=== PATIENT | female | born 1990 | race Caucasian/White ===

== ENCOUNTER 2023-02-12 09:59 | Outpatient (RCR) | payer MEDICARE, MEDICAID, SELFPAY | END 2023-04-16 12:25 | disposition home or self-care (01) | LOC: PT 09:59 | PROVIDERS: PCP Anesthesiology Pain Medicine; Visit Provider Anesthesiology Pain Medicine | DX: M47.816 Spondylosis without myelopathy or radiculopathy, lumbar region (principal) | CPT/HCPCS: 97110; 97113 ==

== ENCOUNTER 2023-05-13 12:41 | Outpatient (OUT) | payer MEDICARE, MEDICAID, SELFPAY ==
--- NOTE | 2023-05-13 12:54 | P.CN_ITS ---
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 Patient has recently completed PT with mild benefit, continues to have pain that interferes with day to day activity and functional ability. Pain today 11/21. Would like to further discuss injection therapy. cc:: CC: Michelle Hunter NP Review of Systems ROS Status of ROS 10 or more systems reviewed and unremarkable except as noted in history and below Musculoskeletal Reports: back pain Exam Constitutional Documenting provider has reviewed patient's vital signs: yes Common normals: no apparent distress, oriented x3, healthy appearing, alert and well nourished General appearance: cooperative HENMT Common normals: normocephalic, hearing grossly normal bilaterally and moist oral mucous membranes Head and scalp: normocephalic Eye Common normals: PERRL Pupil: PERRL Neck & C-Spine Common normals: full ROM General: normal visual inspection Chest Common normals: inspection of chest normal Respiratory Common normals: normal respiratory effort, no retractions and no use of accessory muscles Back & Pelvis Lumbar spine/lower back: ROM limited and pain with ROM Sacroiliac joints: SI joints normal Other: predominately axial back pain without radiculopathy. bilateral positive facet loading Neuro Common normals: oriented x3, CN's II-XII intact bilaterally, moves all extremities, no focal motor deficits, no sensory deficits noted and deep tendon reflexes 2+ bilaterally Sensorium/orientation: alert Motor exam: strength 5/5 throughout and no movement abnormalities noted Psych Common normals: mental status grossly normal, thought process normal, cooperative, affect normal, speech normal and activity/motor behavior normal Speech: normal speech Thought process: normal thought process Results Additional Findings Additional findings: I have checked an OARRS report on this patient today and there are no aberrancies noted in the prescribing history.?? A drug screen was completed and reviewed within the last year, and if there has not been a drug screen completed we ordered one today to monitor higher risk, state monitored pain medication use. As part of providing excellent, safe, comprehensive care, the following was completed at our patient's visit: 1. A medication reconciliation and review to ensure accurate knowledge of current/active medications, including asking our patients to inform us about any ocgl-mxc-nxwrrnp medications or herbal remedies/nutritional supplements/alternative remedies. 2. A review to specifically ensure our patients have had annual screening for: elevated body mass index (BMI), tobacco use, screening for depression, and screening for unhealthy alcohol use. When screening is concerning, patients are provided with education and the specific recommendation to discuss the concerning health issue and treatment options with their primary care provider. The patient has had over 3 months of moderate to severe low back pain with functional impairment and inadequate response to conservative care including NSAIDS (unless there are contraindication such as concurrent blood thinners), multiple oral or topical pain medications, and home exercise program/physical therapy.? Patient has completed >6 weeks of guided home exercise program and/or formal physical therapy program without relief of their symptoms.? I have reviewed the imaging of the lumbar spine and no red flags were identified.? The imaging reveals radiographic findings consistent with lumbar facet arthropathy The Oswestry Disability Index was completed, and the patient scored a %.? The patient noted the following:?? {[id number]}? We discussed the risks and benefits of the procedure with the patient, and we are NOT planning on using sedation as outlined in the guidelines from Medicare unless there is a documented reason that sedation would be strongly recommended.?? ?The procedure will be completed with fluoroscopic guidance.? 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 all questions answered. (2) Lumbar spondylosis: (3) Myofascial pain: Plan the patient will be scheduled for two MBBs if provides >80% pain relief and functional improvement will proceed with thermal radiofrequency ablation. bilateral L4/5 L5/S1 MBB under fluorscopy continue gabapentin through PCP continue flexeril 10mg BID f/u post procedure
== END 2023-05-13 12:42 | disposition home or self-care (01) ==
LOC: PM 12:42
PROVIDERS: Visit Provider Nurse Practitioner
DX: M47.816 Spondylosis without myelopathy or radiculopathy, lumbar region (principal); M79.18 Myalgia, other site; H91.90 Unspecified hearing loss, unspecified ear
CPT/HCPCS: G0463

== ENCOUNTER 2023-05-23 19:39 | Emergency (ER) | payer MEDICARE, MEDICAID, SELFPAY ==
[2023-05-23 19:45] VITALS: BP 130/80; PULSE 75; RESP 18; TEMP 36.9; O2SAT 98
--- NOTE | 2023-05-23 19:54 | ED.ABDPAIN1 ---
HPI - Abdominal Pain General Chief Complaint: Abdominal Pain Stated Complaint: stomach hurts Time Seen by Provider: 05/23/23 19:48 Source: patient and medical interpreter Mode of arrival: walk-in Limitations: language barrier and other Limitations comment: deaf History of Present Illness HPI narrative: 33-year-old female presents for bilateral lower abdominal pain with dysuria. She's had it for two days and believes she has a urinary tract infection. She has mild back pain but she always does from arthritis. No fever vomiting or constipation. She was a little bit dizzy earlier today. No fever or vomiting. Related Data Home Medications Medication Instructions Recorded Confirmed cholecalciferol (vitamin D3) 25 25 mcg PO DAILY 05/13/23 05/13/23 mcg (1,000 unit) capsule cyclobenzaprine 10 mg tablet 10 mg PO BID 05/13/23 05/13/23 ferrous sulfate 325 mg (65 mg 325 mg PO DAILY 05/13/23 05/13/23 iron) tablet gabapentin 300 mg capsule 300 mg PO BID 05/13/23 05/13/23 ibuprofen 800 mg tablet 800 mg PO TID PRN pain 05/13/23 05/13/23 omega-3 fatty acids 1,000 mg 1,000 mg PO DAILY 05/13/23 05/13/23 capsule omega-3 fatty acids 500 mg capsule 1,500 mg PO DAILY 05/13/23 05/13/23 omeprazole 40 mg capsule,delayed 40 mg PO DAILY 05/13/23 05/13/23 release Allergies Allergy/AdvReac Type Severity Reaction Status Date / Time Sulfa (Sulfonamide Allergy Verified 05/23/23 19:53 Antibiotics) Review of Systems ROS Narrative A ten point review of systems is negative except as noted above. Gastrointestinal Reports: abdominal pain Genitourinary Reports: painful urination [facility] Medical History (Updated 05/23/23 @ 21:36 by Fadi Mendez MD) Surgical History (Updated 05/13/23 @ 14:42 by Adenike Schroeder) Exam Narrative Exam Narrative: Nurses note and vital signs reviewed and patient is not hypoxic. General: The patient appears well and in no apparent distress. Patient is resting comfortably on cart. Skin: Warm, dry, no pallor noted. There is no rash noted. Head: Normocephalic, atraumatic Eye: Normal conjunctiva, no drainage Ears, Nose, Mouth, and Throat: oral mucosa is moist. Nares patent. Cardiovascular: Regular Rate and Rhythm Respiratory: Patient is in no distress, no accessory muscle use, lungs are clear to auscultation, no wheezing, rales or rhonchi Back: non-tender, no CVA tenderness bilaterally to percussion. GI: minimal tenderness in the suprapubic area Musculoskeletal: The patient has no evidence of calf tenderness, no pitting edema, symmetrical pulses noted bilaterally Neurological: she is deaf and we communicated through an medical interpreter. Psychiatric: Cooperative Constitutional Vital Signs, click to edit/add: Last Vital Signs Temp 98.4 F 05/23/23 19:45 Pulse 75 05/23/23 19:45 Resp 18 05/23/23 19:45 BP 130/80 05/23/23 19:45 Pulse Ox 98 05/23/23 19:45 O2 Del Method Room Air 05/23/23 19:45 Course Vital Signs Vital signs: Vital Signs Temperature 98.4 F 05/23/23 19:45 Pulse Rate 75 05/23/23 19:45 Respiratory Rate 18 05/23/23 19:45 Blood Pressure 130/80 05/23/23 19:45 Pulse Oximetry 98 05/23/23 19:45 Oxygen Delivery Method Room Air 05/23/23 19:45 Temperature 98.4 F 05/23/23 19:45 Pulse Rate 75 05/23/23 19:45 Respiratory Rate 18 05/23/23 19:45 Blood Pressure 130/80 05/23/23 19:45 Pulse Oximetry 98 05/23/23 19:45 Oxygen Delivery Method Room Air 05/23/23 19:45 MDM - Abdominal Pain MDM Narrative Medical decision making narrative: urinalysis and blood work are negative. She is not . I have no clinical suspicion of acute intra-abdominal process and imaging is not indicated. She is going to follow-up with her psychiatry physician. She has no vaginal discharge and is not and there is no indication for a pelvic exam. Diagnosis and follow-up were discussed with the patient. Differential Diagnosis Differential diagnosis: Likely abdominal pain, constipation and gastroenteritis Lab Data Attestation: I reviewed the patient's lab results. Labs: Lab Results 05/23/23 05/23/23 Range/Units 19:55 20:41 WBC 6.8 (4.0-11.0) 10^3/uL RBC 4.53 (4.20-5.40) 10^6/uL Hgb 12.3 (12.0-16.0) g/dL Hct 37.0 (36.0-48.0) % MCV 81.7 (81.0-99.0) fL MCH 27.2 (26.7-34.0) pg MCHC 33.2 (29.9-35.2) g/dL RDW 12.8 (11.0-15.0) % Plt Count 270 (150-450) 10^3/uL MPV 10.0 (9.5-13.5) fL Neut % (Auto) 50.7 (43.0-75.0) % Lymph % (Auto) 38.3 (20.5-60.0) % Victoria % (Auto) 7.1 (1.7-12.0) % Eos % (Auto) 2.7 (0.9-7.0) % Baso % (Auto) 0.9 (0.2-2.0) % Neut # (Auto) 3.4 (1.4-6.5) 10^3/uL Lymph # (Auto) 2.6 (1.2-3.8) 10^3/uL Victoria # (Auto) 0.5 (0.3-0.8) 10^3/uL Eos # (Auto) 0.2 (0.0-0.7) 10^3/uL Baso # (Auto) 0.1 (0.0-0.1) 10^3/uL Abs Immat Gran (auto) 0.02 (0.00-0.03) 10^3/uL Imm/Tot Granulo (auto) 0.3 (0.0-0.5) % Sodium 142 (136-145) mmol/L Potassium 3.7 (3.5-5.1) mmol/L Chloride 106 (98-107) mmol/L Carbon Dioxide 27.3 (21.0-32.0) mmol/L Anion Gap 12.4 BUN 8.0 (7.0-18.0) mg/dL Creatinine 0.84 (0.55-1.02) mg/dL Est GFR ( Amer) >60 (>=60) Est GFR (Non-Af Amer) >60 (>=60) BUN/Creatinine Ratio 9.5 Glucose 90 (74-106) mg/dL Calcium 8.6 (8.5-10.1) mg/dL Urine Color Lt. yellow (YELLOW) Urine Clarity Clear (CLEAR) Urine pH 7.0 (5.0-9.0) Ur Specific Preston 1.010 (1.005-1.025) Urine Protein Negative (NEG/TRACE) mg/dL Urine Glucose (UA) Negative (NEGATIVE) mg/dL Urine Ketones Negative (NEGATIVE) mg/dL Urine Occult Blood Negative (NEGATIVE) Urine Nitrite Negative (NEGATIVE) Urine Bilirubin Negative (NEGATIVE) Urine Urobilinogen 0.2 (0.2-1.0) EU/dL Ur Leukocyte Esterase Negative (NEGATIVE) Urine HCG, Qual Negative (NEGATIVE) Discharge Plan Discharge Chief Complaint: Abdominal Pain Clinical Impression: Abdominal pain Patient Disposition: Home, Self-Care Time of Disposition Decision: 21:35 Condition: Good Mode of Transportation: Private Vehicle Prescriptions / Home Meds: No Action omega-3 fatty acids 500 mg capsule 1,500 mg PO DAILY cyclobenzaprine 10 mg tablet 10 mg PO BID gabapentin 300 mg capsule 300 mg PO BID ibuprofen 800 mg tablet 800 mg PO TID PRN (Reason: pain) ferrous sulfate 325 mg (65 mg iron) tablet 325 mg PO DAILY omega-3 fatty acids 1,000 mg capsule 1,000 mg PO DAILY omeprazole 40 mg capsule,delayed release(DR/EC) 40 mg PO DAILY cholecalciferol (vitamin D3) 25 mcg (1,000 unit) capsule 25 mcg PO DAILY Instructions: Abdominal Pain (ED) Additional Instructions: F/U with your STORE TEAM MEMBER Stand Alone Forms: Portal Instructions Referrals: Physician,Non-Staff, MD [Primary Care Provider] - 1 week Discharge Date/Time: 05/23/23 21:46
[2023-05-23 20:10] LABS: Bilirubin Urine NEGATIVE (NEGATIVE); Blood Urine NEGATIVE (NEGATIVE); Clarity Urine CLEAR (CLEAR); Color Urine LT. YELLOW (YELLOW); Glucose Urine UA NEGATIVE (NEGATIVE); Ketones Urine NEGATIVE (NEGATIVE); Leukocyte Esterase Urine NEGATIVE (NEGATIVE); Nitrite Urine NEGATIVE (NEGATIVE); Protein Urine NEGATIVE (NEG/TRACE); Urobilinogen Urine 0.2 EU/dL (0.2-1.0)
[2023-05-23 20:14] LABS: HCG Qualitative Urine* NEGATIVE (NEGATIVE)
[2023-05-23 20:17] LABS: Urine Microscopic Indicated NO
[2023-05-23 20:59] LABS: Anion Gap 12.4; BUN Creatinine Ratio 9.5; Calcium 8.6 mg/dL (8.5-10.1); Carbon Dioxide 27.3 mmol/L (21.0-32.0); Chloride 106 mmol/L (98-107); Estimated GFR (African America >60 (>=60); Estimated GFR (Non-African Ame >60 (>=60); Glucose 90 mg/dL (74-106); Potassium 3.7 mmol/L (3.5-5.1); Sodium 142 mmol/L (136-145)
[2023-05-23 21:11] LABS: Basophils Absolute Auto 0.1 10^3/uL (0.0-0.1); Basophils Percent Auto 0.9 % (0.2-2.0); Eosinophils Absolute Auto 0.2 10^3/uL (0.0-0.7); Eosinophils Percent Auto 2.7 % (0.9-7.0); Hemoglobin 12.3 g/dL (12.0-16.0); Immature Granulocytes Abs Auto 0.02 10^3/uL (0.00-0.03); Immature Granulocytes Pct Auto 0.3 % (0.0-0.5); Lymphocytes Absolute Auto 2.6 10^3/uL (1.2-3.8); Lymphocytes Percent Auto 38.3 % (20.5-60.0); Mean Corpuscular HGB Conc 33.2 g/dL (29.9-35.2); Mean Corpuscular Hemoglobin 27.2 pg (26.7-34.0); Mean Corpuscular Volume 81.7 fL (81.0-99.0); Monocytes Absolute Auto 0.5 10^3/uL (0.3-0.8); Monocytes Percent Auto 7.1 % (1.7-12.0); Neutrophils Absolute Auto 3.4 10^3/uL (1.4-6.5); Neutrophils Percent Auto 50.7 % (43.0-75.0); Platelet Count 270 10^3/uL (150-450); Red Blood Count 4.53 10^6/uL (4.20-5.40); Red Cell Distribution Width 12.8 % (11.0-15.0); White Blood Count 6.8 10^3/uL (4.0-11.0)
== END 2023-05-23 21:46 | disposition home or self-care (01) ==
PROVIDERS: Emergency Provider Emergency Medicine
DX: R10.9 Unspecified abdominal pain (principal); Z79.899 Other long term (current) drug therapy; H91.90 Unspecified hearing loss, unspecified ear
CPT/HCPCS: 36415; 80048; 81003; 84703; 85025; 99285

== ENCOUNTER 2023-06-08 10:32 | Day surgery (SDC) | payer MEDICARE, MEDICAID, SELFPAY ==
[2023-06-08 11:07] VITALS: BP 117/84; PULSE 65; RESP 16; TEMP 36.4; O2SAT 97
[2023-06-08 11:24] LABS: Glucometer 96 mg/dL (74-106)
[2023-06-08 11:45] LABS: HCG Qualitative NEGATIVE (NEGATIVE)
[2023-06-08] MEDS: LIDOCAINE HCL 2% PF 100 MG/5 ML VIAL INJ (12:01)
[2023-06-08] MEDS: BUPIVACAINE HCL 0.5% PF 50 MG/10 ML VIAL INJ (12:01)
[2023-06-08] MEDS: TRIAMCINOLONE ACETONIDE 40 MG/ML VIAL INJ (12:02)
[2023-06-08 12:03] VITALS: BP 138/87; BP 157/96; PULSE 84; PULSE 92; RESP 18; O2SAT 98
--- NOTE | 2023-06-08 12:04 | W.PM.PROCNOT ---
Date of procedure: 06/08/23 Pre-op diagnosis: Lumbar spondylosis Post-op diagnosis: same as pre-op Procedure: Procedure: Bilateral L4-5, L5-S1 medial branch block Medications: Bupivacaine 0.25% 4cc The patient was seen and examined in the preoperative holding area.? An informed consent was obtained and placed on the chart.? The patient was brought to the medical procedure unit and placed in the prone position.? A timeout was completed verifying correct patient, procedure site, positioning, plan, and special equipment.? Using aseptic technique, the needle was placed at left L4. Under direct fluoroscopic visualization a Quincke-tipped spinal needle was advanced to the junction of the superior articulating process with the transverse process at the designated medial branch segment.? Preceded by negative aspiration, the above-mentioned injectate was placed in 1 mL aliquots.? The procedure was repeated at left L5, S1.? The needle was removed and insertion site was covered. The same procedure, at the same levels, was completed on the right side. The patient was taken to the postprocedural recovery area and monitored for an appropriate length of time before found suitable for discharge in the company of a responsible adult. Anesthesia: Local Surgeon: George Bernstein Pathology: none sent Condition: stable Disposition: no change
== END 2023-06-08 12:11 | disposition home or self-care (01) ==
PROVIDERS: Visit Provider Anesthesiology
DX: M47.816 Spondylosis without myelopathy or radiculopathy, lumbar region (principal)
CPT/HCPCS: 36415; 64493; 64494; 82948; 84703

== ENCOUNTER 2023-06-15 20:35 | Outpatient (OUT) | payer MEDICARE, MEDICAID, SELFPAY | END 2023-06-15 20:36 | disposition home or self-care (01) | LOC: SLEEP 20:35 | DX: G47.33 Obstructive sleep apnea (adult) (pediatric) (principal) | CPT/HCPCS: 95810 ==

== ENCOUNTER 2023-06-22 11:27 | Emergency (ER) | payer MEDICARE, MEDICAID, SELFPAY ==
[2023-06-22 11:37] VITALS: BP 129/91; PULSE 88; RESP 18; TEMP 36.8; O2SAT 96; BMI 33.3
--- NOTE | 2023-06-22 11:45 | XR_ITS ---
The [address] [address] Patient Name: LEENA TALBERT MRN: [id number] date: 1990 Sex: F Assigned Patient Location: ER Current Patient Location: ER Accession/Order Number: [id number] Exam Date: 06/22/2023 12:25 Report Date: 06/22/2023 12:55 At the request of: NON-STAFF PHYSICIAN Procedure: XR chest 1V EXAMINATION: XR chest 1V 06/22/2023 9:54 AM PDT HISTORY: 2 wk cough TECHNIQUE: Single frontal view of the chest acquired. COMPARISONS: None. FINDINGS: Lines/tubes/other: None. Heart and mediastinum: The heart and the mediastinum are within normal limits for technique. Bones: No acute osseous abnormality. Lungs: The lungs are clear. There is no evidence of pneumonia or pulmonary edema. Pleura: There is no significant pleural effusion or pneumothorax. Other: None. XR/XR chest 1V IMPRESSION: No acute cardiopulmonary abnormality. Electronically authenticated by: JOB HAYNES Date: 06/22/2023 12:55
[2023-06-22 12:19] LABS: SARS-CoV-2 Ag NEGATIVE (NEGATIVE)
--- NOTE | 2023-06-22 13:22 | ED_ITS ---
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 Her also has upper respiratory symptoms. She has been using unzv-zkm-zudfett medications. Denies fever, sore throat, ear pain, SOB or CP Related Data Home Medications Medication Instructions Recorded Confirmed cholecalciferol (vitamin D3) 25 25 mcg PO DAILY 05/13/23 06/08/23 mcg (1,000 unit) capsule cyclobenzaprine 10 mg tablet 10 mg PO BID 05/13/23 06/08/23 ferrous sulfate 325 mg (65 mg 325 mg PO DAILY 05/13/23 06/08/23 iron) tablet gabapentin 300 mg capsule 300 mg PO BID 05/13/23 06/08/23 ibuprofen 800 mg tablet 800 mg PO TID PRN pain 05/13/23 06/08/23 omega-3 fatty acids 1,000 mg 1,000 mg PO DAILY 05/13/23 06/08/23 capsule omega-3 fatty acids 500 mg capsule 1,500 mg PO DAILY 05/13/23 06/08/23 omeprazole 40 mg capsule,delayed 40 mg PO DAILY 05/13/23 06/08/23 release Allergies Allergy/AdvReac Type Severity Reaction Status Date / Time Sulfa (Sulfonamide Allergy Verified 05/23/23 19:53 Antibiotics) Review of Systems ROS Status of ROS 10 or more systems reviewed and unremarkable except as noted in history and below [facility] Medical History Asthma ?J45.909 - Unspecified asthma, uncomplicated (ICD-10) Heartburn ?R12 - Heartburn (ICD-10) Low back pain ?M54.50 - Low back pain, unspecified (ICD-10) Surgical History H/O removal of cyst ?Z98.890 - Other specified postprocedural states (ICD-10) History of appendectomy ?Z90.49 - Acquired absence of other specified parts of digestive tract (ICD- 10) Exam Narrative Exam Narrative: General: A&Ox3, no distress, talking in full an complete sentences skin: warm, dry, intact head: normocephalic, atraumatic eyes: EOMI nose: nares patent neck: supple, trachea midline cardiac: +S1/S1. no murmur respiratory: lungs CTA, non-labored, no wheezing, no retractions extremities: FROM x 4, strength +5/5 neuro: A&Ox3 psych: appropriate mood and affect, cooperative Constitutional Vital Signs, click to edit/add: Last Vital Signs Temp 98.2 F 06/22/23 11:37 Pulse 86 06/22/23 13:27 Resp 18 06/22/23 13:27 BP 126/86 06/22/23 13:27 Pulse Ox 98 06/22/23 13:27 O2 Del Method Room Air 06/22/23 11:37 Course Vital Signs Vital signs: Vital Signs Temperature 98.2 F 06/22/23 11:37 Pulse Rate 88 06/22/23 11:37 Respiratory Rate 18 06/22/23 11:37 Blood Pressure 129/91 06/22/23 11:37 Pulse Oximetry 96 06/22/23 11:37 Oxygen Delivery Method Room Air 06/22/23 11:37 Temperature 98.2 F 06/22/23 11:37 Pulse Rate 86 06/22/23 13:27 Respiratory Rate 18 06/22/23 13:27 Blood Pressure 126/86 06/22/23 13:27 Pulse Oximetry 98 06/22/23 13:27 Oxygen Delivery Method Room Air 06/22/23 11:37 MDM - URI/Sore Throat MDM Narrative Medical decision making narrative: COVID-negative. Chest x-ray was ordered by Dr. Castano with no acute findings. Likely viral and she is instructed to use gvuc-wro-zzxsbcl medications. F/u with PCP. afebrile, not tachypneic, not tachycardic, tolerating p.o., not hypoxic, non toxic appearing and ambulating at baseline and hemodynamically stable to be d/c. answered all questions. pt in agreement with tx. educated when to return to ER. Lab Data Labs: Lab Results 06/22/23 Range/Units 11:57 SARS-CoV-2 (PCR) Negative (NEGATIVE) SARS-CoV-2 RNA (PARI) Not detected (NOT DETECTE) Discharge Plan Discharge Chief Complaint: Upper Respiratory Infection Clinical Impression: Upper respiratory infection Qualifiers: URI type: unspecified URI Qualified Code(s): J06.9 - Acute upper respiratory infection, unspecified Patient Disposition: Home, Self-Care Time of Disposition Decision: 13:22 Condition: Good Mode of Transportation: Private Vehicle Prescriptions / Home Meds: No Action omega-3 fatty acids 500 mg capsule 1,500 mg PO DAILY cyclobenzaprine 10 mg tablet 10 mg PO BID gabapentin 300 mg capsule 300 mg PO BID ibuprofen 800 mg tablet 800 mg PO TID PRN (Reason: pain) ferrous sulfate 325 mg (65 mg iron) tablet 325 mg PO DAILY omega-3 fatty acids 1,000 mg capsule 1,000 mg PO DAILY omeprazole 40 mg capsule,delayed release(DR/EC) 40 mg PO DAILY cholecalciferol (vitamin D3) 25 mcg (1,000 unit) capsule 25 mcg PO DAILY Instructions: Upper Respiratory Infection (ED) Stand Alone Forms: Portal Instructions Referrals: Physician,Non-Staff, [Primary Care Provider] - 1 week Discharge Date/Time: 06/22/23 13:57 Documented by User: Gentry Castano MD 06/22/23 16:52 HPI - URI/Sore Throat General Chief Complaint: Upper Respiratory Infection Stated Complaint: COUGH, CONGESTION Time Seen by Provider: 06/22/23 13:22 Related Data Home Medications Medication Instructions Recorded Confirmed cholecalciferol (vitamin D3) 25 25 mcg PO DAILY 05/13/23 06/08/23 mcg (1,000 unit) capsule cyclobenzaprine 10 mg tablet 10 mg PO BID 05/13/23 06/08/23 ferrous sulfate 325 mg (65 mg 325 mg PO DAILY 05/13/23 06/08/23 iron) tablet gabapentin 300 mg capsule 300 mg PO BID 05/13/23 06/08/23 ibuprofen 800 mg tablet 800 mg PO TID PRN pain 05/13/23 06/08/23 omega-3 fatty acids 1,000 mg 1,000 mg PO DAILY 05/13/23 06/08/23 capsule omega-3 fatty acids 500 mg capsule 1,500 mg PO DAILY 05/13/23 06/08/23 omeprazole 40 mg capsule,delayed 40 mg PO DAILY 05/13/23 06/08/23 release Allergies Allergy/AdvReac Type Severity Reaction Status Date / Time Sulfa (Sulfonamide Allergy Verified 05/23/23 19:53 Antibiotics) [facility] Medical History Asthma ?J45.909 - Unspecified asthma, uncomplicated (ICD-10) Heartburn ?R12 - Heartburn (ICD-10) Low back pain ?M54.50 - Low back pain, unspecified (ICD-10) Surgical History H/O removal of cyst ?Z98.890 - Other specified postprocedural states (ICD-10) History of appendectomy ?Z90.49 - Acquired absence of other specified parts of digestive tract (ICD- 10) Exam Constitutional Vital Signs, click to edit/add: Last Vital Signs Temp 98.2 F 06/22/23 11:37 Pulse 86 06/22/23 13:27 Resp 18 06/22/23 13:27 BP 126/86 06/22/23 13:27 Pulse Ox 98 06/22/23 13:27 O2 Del Method Room Air 06/22/23 11:37 Course Vital Signs Vital signs: Vital Signs Temperature 98.2 F 06/22/23 11:37 Pulse Rate 88 06/22/23 11:37 Respiratory Rate 18 06/22/23 11:37 Blood Pressure 129/91 06/22/23 11:37 Pulse Oximetry 96 06/22/23 11:37 Oxygen Delivery Method Room Air 06/22/23 11:37 Temperature 98.2 F 06/22/23 11:37 Pulse Rate 86 06/22/23 13:27 Respiratory Rate 18 06/22/23 13:27 Blood Pressure 126/86 06/22/23 13:27 Pulse Oximetry 98 06/22/23 13:27 Oxygen Delivery Method Room Air 06/22/23 11:37 MDM - URI/Sore Throat MDM Narrative Medical decision making narrative: COVID-negative. Chest x-ray was ordered by Dr. Castano with no acute findings. Likely viral and she is instructed to use aduy-nwq-lvnlodo medications. F/u with PCP. afebrile, not tachypneic, not tachycardic, tolerating p.o., not hypoxic, non toxic appearing and ambulating at baseline and hemodynamically stable to be d/c. answered all questions. pt in agreement with tx. educated when to return to ER. I, Dr Castano, have reviewed the above progress note and course of action in the ER; agree with the above. I have personally seen and evaluated this patient, gone over history and physical, and discussed disposition and treatment plan with the patient. Lab Data Labs: Lab Results 06/22/23 Range/Units 11:57 SARS-CoV-2 (PCR) Negative (NEGATIVE) SARS-CoV-2 RNA (PARI) Not detected (NOT DETECTE) Discharge Plan Discharge Chief Complaint: Upper Respiratory Infection Clinical Impression: Upper respiratory infection Qualifiers: URI type: unspecified URI Qualified Code(s): J06.9 - Acute upper respiratory infection, unspecified Patient Disposition: Home, Self-Care Time of Disposition Decision: 13:22 Condition: Good Mode of Transportation: Private Vehicle Prescriptions / Home Meds: No Action omega-3 fatty acids 500 mg capsule 1,500 mg PO DAILY cyclobenzaprine 10 mg tablet 10 mg PO BID gabapentin 300 mg capsule 300 mg PO BID ibuprofen 800 mg tablet 800 mg PO TID PRN (Reason: pain) ferrous sulfate 325 mg (65 mg iron) tablet 325 mg PO DAILY omega-3 fatty acids 1,000 mg capsule 1,000 mg PO DAILY omeprazole 40 mg capsule,delayed release(DR/EC) 40 mg PO DAILY cholecalciferol (vitamin D3) 25 mcg (1,000 unit) capsule 25 mcg PO DAILY Instructions: Upper Respiratory Infection (ED) Stand Alone Forms: Portal Instructions Referrals: Physician,Non-Staff, MD [Primary Care Provider] - 1 week Discharge Date/Time: 06/22/23 13:57
[2023-06-22 13:27] VITALS: BP 126/86; PULSE 86; RESP 18; O2SAT 98
[2023-06-22 15:51] LABS: SARS-CoV-2 NAA NOT DETECTED (NOT DETECTE)
== END 2023-06-22 13:57 | disposition home or self-care (01) ==
PROVIDERS: Emergency Provider Emergency Medicine
DX: J06.9 Acute upper respiratory infection, unspecified (principal); M47.816 Spondylosis without myelopathy or radiculopathy, lumbar region; H91.93 Unspecified hearing loss, bilateral; Z79.899 Other long term (current) drug therapy; J45.909 Unspecified asthma, uncomplicated; Z90.49 Acquired absence of other specified parts of digestive tract; Z20.822 Contact with and (suspected) exposure to COVID-19
CPT/HCPCS: 71045; 87635; 87811; 99284; G0463; U0003

== ENCOUNTER 2023-06-22 14:09 | Outpatient (OUT) | payer MEDICARE, MEDICAID, SELFPAY ==
--- NOTE | 2023-06-22 15:21 | P.CN_ITS ---
Consult Note: HPI Data of Consult Patient: known to practice within the last 3 years Consult date: 06/22/23 Requesting Physician: George Bernstein MD Primary Care Provider: Non-Staff Physician, Consult Narrative Reason for consult: low back pain Narrative: 33yof who presents for assessment. underwent diagnostic bilateral l4-5, l5-s1 medial branch block under fluoroscopic guidance, notes significant relief of >80% for >2 hours and subsequent return of pain to baseline. now has persistent axial low back pain. continues in home exercise program. denies adverse medication side effects. JOSEP 18 cc:: CC: George Bernstein MD Review of Systems ROS Status of ROS 10 or more systems reviewed and unremarkable except as noted in history and below PFSH [facility] Medical History Asthma ?J45.909 - Unspecified asthma, uncomplicated (ICD-10) Heartburn ?R12 - Heartburn (ICD-10) Low back pain ?M54.50 - Low back pain, unspecified (ICD-10) Surgical History H/O removal of cyst ?Z98.890 - Other specified postprocedural states (ICD-10) History of appendectomy ?Z90.49 - Acquired absence of other specified parts of digestive tract (ICD- 10) Meds Home Medications and Allergies Home Medications Medication Instructions Recorded Confirmed Type cholecalciferol (vitamin D3) 25 25 mcg PO DAILY 05/13/23 06/08/23 History mcg (1,000 unit) capsule cyclobenzaprine 10 mg tablet 10 mg PO BID 05/13/23 06/08/23 History ferrous sulfate 325 mg (65 mg 325 mg PO DAILY 05/13/23 06/08/23 History iron) tablet gabapentin 300 mg capsule 300 mg PO BID 05/13/23 06/08/23 History ibuprofen 800 mg tablet 800 mg PO TID PRN pain 05/13/23 06/08/23 History omega-3 fatty acids 1,000 mg 1,000 mg PO DAILY 05/13/23 06/08/23 History capsule omega-3 fatty acids 500 mg capsule 1,500 mg PO DAILY 08/30/23 09/25/23 History omeprazole 40 mg capsule,delayed 40 mg PO DAILY 05/13/23 06/08/23 History release Allergies Allergy/AdvReac Type Severity Reaction Status Date / Time Sulfa (Sulfonamide Allergy Verified 05/23/23 19:53 Antibiotics) Exam Narrative Exam Narrative: Psych-alert and oriented x 3. Attentive and appropriate, constitutionally normal, displays normal mood and affect per situation.? There are no obvious deficits in memory, reasoning, or intellect.? Skin-no obvious rashes, bruising, erythema noted to the patient's area of pain. Extremities- extremities are warm with minimal edema and palpable pulses. Lumbar-no significant tenderness to palpation noted in the lumbar spine and paraspinal musculature.? Pain is elicited with extension, and lateral rotation of the lumbar spine. Range of motion is slightly diminished with these motions due to pain. Facet loading maneuvers are positive bilaterally and do appear to be concordant with the patient's normal complaints of pain.? Coordination remains intact.? Gait remains non-antalgic. Assessment and Plan Assessment and Plan (1) Lumbar spondylosis: Plan 33yof who presents for assessment. underwent diagnostic block, as noted above. given significant response, prudent to attempt second diagnostic bilateral l4-5, l5-s1 medial branch block under fluoroscopic guidance with intention of proceeding to radiofrequency ablation. she is in agreement. medications reviewed, no changes made. follow up after procedure.
== END 2023-06-22 14:10 | disposition home or self-care (01) ==
LOC: PM 14:11
PROVIDERS: Visit Provider Anesthesiology
DX: M47.816 Spondylosis without myelopathy or radiculopathy, lumbar region (principal)
CPT/HCPCS: G0463

== ENCOUNTER 2023-08-10 10:15 | Day surgery (SDC) | payer MEDICARE, MEDICAID, SELFPAY ==
[2023-08-10 11:20] LABS: Glucometer 94 mg/dL (74-106)
[2023-08-10 11:23] VITALS: BP 136/97; PULSE 84; RESP 16; TEMP 36.5; O2SAT 98
[2023-08-10 11:44] LABS: HCG Qualitative NEGATIVE (NEGATIVE)
[2023-08-10] MEDS: LIDOCAINE HCL 2% PF 100 MG/5 ML VIAL 3 ML INJ (12:12)
[2023-08-10] MEDS: BUPIVACAINE HCL 0.25% PF 25 MG/10 ML VIAL 8 ML INJ (12:12)
[2023-08-10 12:13] VITALS: BP 133/88; PULSE 80; RESP 16; O2SAT 96
[2023-08-10 12:14] VITALS: BP 135/72; PULSE 75; RESP 18; O2SAT 97
--- NOTE | 2023-08-10 12:16 | W.PM.PROCNOT ---
Date of procedure: 08/10/23 Pre-op diagnosis: Lumbar spondylosis Post-op diagnosis: same as pre-op Procedure: Procedure: Bilateral L4-5, L5-S1 medial branch block Medications: Bupivacaine 0.25% 6cc The patient was seen and examined in the preoperative holding area.? An informed consent was obtained and placed on the chart.? The patient was brought to the medical procedure unit and placed in the prone position.? A timeout was completed verifying correct patient, procedure site, positioning, plan, and special equipment.? Using aseptic technique, the needle was placed at left L4. Under direct fluoroscopic visualization a Quincke-tipped spinal needle was advanced to the junction of the superior articulating process with the transverse process at the designated medial branch segment.? Preceded by negative aspiration, the above-mentioned injectate was placed in 1 mL aliquots.? The procedure was repeated at left L5, S1.? The needle was removed and insertion site was covered. The same procedure, at the same levels, was completed on the right side. The patient was taken to the postprocedural recovery area and monitored for an appropriate length of time before found suitable for discharge in the company of a responsible adult. Anesthesia: Local Surgeon: George Bernstein Pathology: none sent Condition: stable Disposition: no change
== END 2023-08-10 12:21 | disposition home or self-care (01) ==
PROVIDERS: Visit Provider Anesthesiology
DX: M47.816 Spondylosis without myelopathy or radiculopathy, lumbar region (principal)
CPT/HCPCS: 36415; 64493; 64494; 84703

== ENCOUNTER 2023-08-20 12:45 | Outpatient (OUT) | payer MEDICARE, MEDICAID, SELFPAY ==
--- NOTE | 2023-08-20 13:14 | PM.CN ---
Consult Note: HPI Data of Consult Patient: known to practice within the last 3 years Requesting Physician: Michelle Hunter NP Primary Care Provider: Non-Staff Physician, MD Consult Narrative Reason for consult: f/u Narrative: (Video retail sales representative utilized for today's visit) Danitza Interiano a pleasant 33 year old female presents for evaluation and management of chronic low back pain. Today pain 0/10, does increase to 5-6/10 with activity. Patient initially reported 0 pain since injection, upon conversation patient does have mild to moderate pain with activity. JOSEP 28% with pain with periods of standing and walking. No numbness, tingling, or weakness to legs. cc:: CC: Michelle Hunter NP Review of Systems ROS Status of ROS 10 or more systems reviewed and unremarkable except as noted in history and below Musculoskeletal Reports: back pain and joint pain PFSH PFSH Medical History Low back pain ?M54.50 - Low back pain, unspecified (ICD-10) Heartburn ?R12 - Heartburn (ICD-10) Asthma ?J45.909 - Unspecified asthma, uncomplicated (ICD-10) Surgical History H/O removal of cyst ?Z98.890 - Other specified postprocedural states (ICD-10) History of appendectomy ?Z90.49 - Acquired absence of other specified parts of digestive tract (ICD-10) Meds Home Medications and Allergies Home Medications Medication Instructions Recorded Confirmed Type cholecalciferol (vitamin D3) 25 25 mcg PO DAILY 05/13/23 08/10/23 History mcg (1,000 unit) capsule cyclobenzaprine 10 mg tablet 10 mg PO BID 05/13/23 08/10/23 History ferrous sulfate 325 mg (65 mg 325 mg PO DAILY 05/13/23 08/10/23 History iron) tablet gabapentin 300 mg capsule 300 mg PO BID 05/13/23 08/10/23 History ibuprofen 800 mg tablet 800 mg PO TID PRN pain 05/13/23 08/10/23 History omega-3 fatty acids 1,000 mg 1,000 mg PO DAILY 05/13/23 08/10/23 History capsule omega-3 fatty acids 500 mg capsule 1,500 mg PO DAILY 05/13/23 08/10/23 History omeprazole 40 mg capsule,delayed 40 mg PO DAILY 05/13/23 08/10/23 History release Allergies Allergy/AdvReac Type Severity Reaction Status Date / Time Sulfa (Sulfonamide Allergy Verified 08/10/23 11:16 Antibiotics) Exam Constitutional Documenting provider has reviewed patient's vital signs: yes Common normals: no apparent distress, oriented x3, healthy appearing, alert and well nourished General appearance: cooperative HENMT Common normals: normocephalic, hearing grossly normal bilaterally and moist oral mucous membranes Head and scalp: normocephalic Eye Common normals: PERRL Pupil: PERRL Neck & C-Spine Common normals: full ROM General: normal visual inspection Chest Common normals: inspection of chest normal Respiratory Common normals: normal respiratory effort, no retractions and no use of accessory muscles Back & Pelvis Lumbar spine/lower back: ROM limited, pain with ROM and straight leg raise negative bilaterally Sacroiliac joints: SI joints normal Other: midline low back pain, no radiculopathy, bilateral facet loading Extremity Common normals: normal to inspection Right lower extremity: knee joint (pain with long periods of standing.) Other: negative exam of left knee Neuro Common normals: oriented x3, CN's II-XII intact bilaterally, moves all extremities, no focal motor deficits, no sensory deficits noted, deep tendon reflexes 2+ bilaterally and gait normal Sensorium/orientation: alert Motor exam: strength 5/5 throughout and no movement abnormalities noted Psych Common normals: mental status grossly normal, thought process normal, cooperative, affect normal, speech normal and activity/motor behavior normal Speech: normal speech Thought process: normal thought process Results Additional Findings Additional findings: I have checked an [place] report on this patient today and there are no aberrancies noted in the prescribing history.?? A drug screen was completed and reviewed within the last year, and if there has not been a drug screen completed we ordered one today to monitor higher risk, state monitored pain medication use. As part of providing excellent, safe, comprehensive care, the following was completed at our patient's visit: 1. A medication reconciliation and review to ensure accurate knowledge of current/active medications, including asking our patients to inform us about any [id number] medications or herbal remedies/nutritional supplements/alternative remedies. 2. A review to specifically ensure our patients have had annual screening for: elevated body mass index (BMI), tobacco use, screening for depression, and screening for unhealthy alcohol use. When screening is concerning, patients are provided with education and the specific recommendation to discuss the concerning health issue and treatment options with their primary care provider. Assessment and Plan Assessment and Plan (1) Chronic pain of left knee: (2) Lumbar spondylosis: Assessment and Plan: The patient has had over 3 months of moderate to severe low back pain with functional impairment and inadequate response to conservative care including NSAIDS (unless there are contraindication such as concurrent blood thinners), multiple oral or topical pain medications, and home exercise program/physical therapy.? Patient has completed >6 weeks of guided home exercise program and/or formal physical therapy program without relief of their symptoms.? We discussed the risks and benefits of the procedure with the patient, and we are NOT planning on using sedation as outlined in the guidelines from Medicare unless there is a documented reason that sedation would be strongly recommended.?? ?The procedure will be completed with fluoroscopic guidance.? (3) Myofascial pain: (4) Deaf: Assessment and Plan: video retail sales representative for today's visit Qualifiers: Laterality: bilateral Qualified Code(s): H91.93 - Unspecified hearing loss, bilateral Plan bilateral L4-5 L5-S1 thermal RFA under fluoroscopy with PO valium prior to the procedure left knee xray for chronic left knee pain continue current medications, tolerating well without side effects f/u 1 month after thermal RFA
== END 2023-08-20 12:46 | disposition home or self-care (01) ==
LOC: PM 12:45
PROVIDERS: Visit Provider Nurse Practitioner
DX: M25.562 Pain in left knee (principal); M47.816 Spondylosis without myelopathy or radiculopathy, lumbar region; M79.18 Myalgia, other site; H91.90 Unspecified hearing loss, unspecified ear
CPT/HCPCS: G0463

== ENCOUNTER 2023-09-11 20:46 | Emergency (ER) | payer MEDICARE, MEDICAID, SELFPAY ==
[2023-09-11 20:51] VITALS: BP 141/94; PULSE 89; RESP 18; TEMP 36.8; O2SAT 98; BMI 33.3
--- OUTSIDE RECORDS SUMMARY | 2023-09-11 20:53 | XMS_ITS | CCD ---
Author Name Unknown Address Formerly [facility] [address] [place] [address] Organization [facility] Care Team Providers Care Classification Inspector Name Role Phone DION JACINTO Unavailable Unavailable OPHELIA, DION M Unavailable Unavailable OPHELIA, DION Guadarrama Unavailable Unavailable OPHELIA, DION Guadarrama Unavailable Unavailable BENTLEY LUCERO Primary Care Physician [phone] Rangel Stanton Unavailable Connor Castellanos Attending Unavailable Devendra Miller Attending Unavailable Kristopher Clemons Attending Unavailable Devendra Miller Attending Unavailable Kristopher Clemons Attending Unavailable Connor Castellanos Attending Unavailable BENTLEY LUCERO Referring Unavailable BENTLEY LUCERO Attending Unavailable BENTLEY LUCERO Admitting Unavailable Connor Castellanos Attending Unavailable Nic FACILITIES ENGINEERING MANAGER-Rosy Hu Primary Care Provider [phone] JODEE Lucero-Rosy Hu Attending Provider [phone] LAKSHMIPATHY ., NARENDRANATH Admitting Megha vailable LAKSHMIPATHY ., NARENDRANATH Consulting Megha vailable LAKSHMIPATHY ., NARENDRANATH Attending Megha vailable BENTLEY LUCERO Primary Care Unavailable LAKSHMIPATHY ., NARENDRANATH Attending Megha vailable BENTLEY LUCERO Primary Care Unavailable LAKSHMIPATHY ., NARENDRANATH Admitting Megha vailable JOESPH ., EASTON Admitting Unavailable JOESPH ., EASTON Attending Unavailable VANESSA JEREZ Consulting Unavailable BENTLEY LUCERO Primary Care Unavailable JOESPH ., EASTON Consulting Unavailable VANESSA JEREZ Consulting Unavailable REQUEST, NONE LISTED Primary Care Unavaila NISA Floyd Admitting Unavailable NISA LANCASTER Attending Unavailable NISA LANCASTER Consulting Unavailable REQUEST, NONE LISTED Primary Care Unavaila ble NEMESIO, ALEXANDRO Admitting Unavailable NEMESIO, ALEXANDRO Attending Unavailable PARRISH ., ZOFIA GO Consulting Unavailani e NEMESIO, ALEXANDRO Consulting Unavailable Spasic, FACILITIES ENGINEERING MANAGER-C Bentley Hu Attending Provider [facility], [facility] Primary [facility] ider Spasic, Bentley E Primary Care Unavailable Spasic, Bentley E Attending Unavailable Spasic, Bentley E Admitting Unavailable Spasic, Bentley E Attending Unavailable Spasic, Bentley E Admitting Unavailable Spasic, Bentley E Primary Care Unavailable Spasic, Bentley E Attending Unavailable Spasic, Bentley E Admitting Unavailable Spasic, Bentley E Attending Unavailable Spasic, Bentley E Admitting Unavailable [facility] Primary Care U navailable Gilindaitis , George Lester Attending Unavailable Giedraitis , Andrius Vcarolyn Attending Unavailable Giedraitis , Andrius Vcarolyn Attending Unavailable Allergies Allergy Classification Reported Allergen(s) Allergy Type Date of Onset Reaction(s) Facility (6 sources) Sulfonamides (Antibiotic); Translations: [sulfa drugs] Drug allergy Cutaneous eruption (morphologic abnormality) [facility] (1 source) Sulfacetamide / Sulfur Drug Allergy Unknown Clari Other (5 sources) Sulfonamides (Antibiotic); Translations: [Sulfa (Sulfonamide Antibiotics)] Allergy to substance 05-15-20 [facility] (1 source) Sulfonamides (Antibiotic) Drug allergy (disorder) 04-11-20 17 [facility] Repository Medications Current Medications Medication Drug Class(es) Dates Sig (Normalized) Sig (Original) Amoxicillin (9 sources) Penicillin-class Antibacterial Start: 05-16-2019 amoxicillin Refills(s) 0 Start Date: 05/16/19 Status: Ordered Start: 05-15-2019 End: 03-12-2022 take 500 mg by mouth three times daily Amoxicillin Discontinued 500 MG PO Three times daily 13 07May 15, 2019 12:00am March 12, 2022 10:09am amoxicillin 500 mg / clavulanate 125 mg oral tablet (4 sources) Penicillin-class Antibacterial Start: 03-12-2022 take 1 tablet by mouth every eight hours Amoxicillin-Pot Clavulanate Active 1 TAB PO Q8H March 12, 2022 12:00am azithromycin 250 mg oral tablet (5 sources) Macrolide Antimicrobial Start: 08-29-2022 azithromycin 250 mg Tab 250 mg, Oral, As Directed, # 6 tab(s), Refills(s) 0 Start Date: 08/29/22 Status: Ordered Start: 06-20-2020 take 1 tablet by christian th once daily Zithromax TRI-EUGENIA 500 mg oral tablet 500 mg = 1 tab(s), Oral, Daily, # 3 tab(s), Refills(s) 0, Pharmacy: [facility], 165, cm, 06/19/20 21:06:00 EDT, Height/Length Dosing, 90.5, kg, 06/19/20 21:06:00 EDT, Weight Dosing Start Date: 06/20/20 Status: Ordered cetirizine hydrochloride 10 mg oral tablet (5 sources) Histamine-1 Receptor Antagonist Start: 06-20-2020 take 1 tablet by mouth once daily cetirizine 10 mg Tab 10 mg = 1 tab(s), Oral, Daily, # 30 tab(s), Refills(s) 0, Pharmacy: [facility], 165, cm, 06/19/20 21:06:00 EDT, Height/Length Dosing, 90.5, kg, 06/19/20 21:06:00 EDT, Weight Dosing Start Date: 06/20/20 Status: Ordered cholecalciferol 0.125 mg oral tablet (4 sources) Vitamin D Start: 03-12-2022 take 1 tablet by mouth once daily Cholecalciferol (Vitamin D3) (Vitamin D3) 125 mcg (5,000 unit) Tablet Active 125 MCG PO Daily March 12, 2022 12:00am cyclobenzaprine hydrochloride 10 mg oral tablet (3 sources) Muscle Relaxant Start: 05-28-2022 take 1 tablet by mouth three times daily as needed for pain cyclobenzaprine 10 mg Tab 10 mg = 1 tab(s), Oral, TID, PRN Muscle pain, # 15 tab(s), Refills(s) 0, Pharmacy: [facility], 165, cm, 05/28/22 10:56:00 EDT, Height/Length Dosing, 86, kg, 05/28/22 10:56:00 EDT, Weight Dosing Start Date: 05/28/22 Status: Ordered ferrous sulfate 325 mg oral tablet (4 sources) Start: 03-12-2022 take 325 mg by mouth once daily Ferrous Sulfate Active 325 MG PO Daily March 12, 2022 12:00am Fish Oils (1 source) Fish Oil Active Flonase 0.05 mg/inh nasal spray (2 sources) Start: 06-20-2020 take 1 spray(s) nasal route twice daily Flonase 0.05 mg/inh nasal spray 1 spray(s), Nasal, BID, 16 gram, Refill(s) 0, each nostril, [facility], 165, cm, 06/19/20 21:06:00 EDT, Height/Length Dosing, 90.5, kg, 06/19/20 21:06:00 EDT, Weight Dosing Start Date: 06/20/20 Status: Ordered fluticasone propionate 0.05 mg/actuat metered dose nasal spray (3 sources) Corticosteroid Start: 06-20-2020 take 1 spray(s) nasal route twice daily Flonase 0.05 mg/inh nasal spray 1 spray(s), Nasal, BID, 16 gram, Refill(s) 0, each nostril, [facility], 165, cm, 06/19/20 21:06:00 EDT, Height/Length Dosing, 90.5, kg, 06/19/20 21:06:00 EDT, Weight Dosing Start Date: 06/20/20 Status: Ordered Ibuprofen (9 sources) Nonsteroidal Anti-inflammatory Drug Start: 05-16-2019 ibuprofen Refills(s) 0 Start Date: 05/16/19 Status: Ordered Start: 05-15-2019 End: 03-12-2022 take 800 mg by mouth three times daily Ibuprofen Discontinued 800 MG PO Three times daily May 15, 2019 12:00am March 12, 2022 10:09am Iron (1 source) Iron Active 12 hr loratadine 5 mg / pseudoephedrine sulfate 120 mg extended release oral tablet (1 source) alpha-Adrenergic Agonist Start: 06-18-20 End: 06-28-20 take 1 tablet by mouth every twelve hours loratadine-pseu doephedrine 5 mg-120 mg ER Tab 1 tab(s), Oral, q12hr for 10 day(s), 20 tab(s), Refill(s) 0, [facility], 165, cm, 06/18/22 12:19:00 EDT, Height/Length Dosing, 86, kg, 06/18/22 12:19:00 EDT, Weight Dosing Start Date: 06/18/22 Stop Date: 06/28/22 Status: Ordered methylPREDNISolone 4 mg oral tablet (1 source) Corticosteroid Start: 05-28-20 End: 06-03-20 Medrol 4 mg Tab = 1 packet(s), Oral, As Directed, as directed on package labeling, X 6 day(s), # 21 tab(s), Refills(s) 0, Pharmacy: [facility], 165, cm, 05/28/22 10:56:00 EDT, Height/Length Dosing, 86, kg, 05/28/22 10:56:00 EDT, Weight Dosing Start Date: 05/28/22 Stop Date: 06/03/22 Status: Ordered naproxen 500 mg oral tablet (3 sources) Nonsteroidal Anti-inflammatory Drug Start: 05-28-20 take 1 tablet by mouth twice daily as needed for pain naproxen 500 mg Tab 500 mg = 1 tab(s), Oral, BID, PRN for pain, # 20 tab(s), Refills(s) 0, Pharmacy: [facility], 165, cm, 05/28/22 10:56:00 EDT, Height/Length Dosing, 86, kg, 05/28/22 10:56:00 EDT, Weight Dosing Start Date: 05/28/22 Status: Ordered Frankfort 3 (1 source) Frankfort 3 Active Frankfort 3-Qqq-Ern-Fish Oil (Fish Oil) 1,000 mg (120 mg-180 mg) Capsule (4 sources) Start: 03-12-20 take 1 capsule by mouth once daily [place] 4-Utj-Abp-Fish Oil (Fish Oil) 1,000 mg (120 mg-180 mg) Capsule Active 1 CAP PO Daily March 12, 2022 12:00am Start: 03-12-2022 take 1 capsule by [facility] once daily [place] 3-Uyf-Wqv-Fish Oil (Fish Oil) 1,000 mg (120 mg-180 mg) Capsule Active 1 CAP PO Daily March 11, 2022 11:00pm omeprazole 40 mg delayed release oral capsule (4 sources) Proton Pump Inhibitor Start: 03-12-2022 take 40 mg by mouth once daily Omeprazole Active 40 MG PO Daily 84 84 March 12, 2022 12:00am ondansetron 4 mg oral tablet (5 sources) Serotonin-3 Receptor Antagonist Start: 03-05-2021 take 1 tablet by mouth every six hours as needed for nausea Zofran ODT 4 mg Tab 4 mg = 1 tab(s), Oral, q6hr, PRN Nausea/Vomiting, # 12 tab(s), Refills(s) 0, Pharmacy: [facility], 165, cm, 03/05/21 17:57:00 EDT, Height/Length Dosing, 91, kg, 03/05/21 17:57:00 EDT, Weight Dosing Start Date: 03/05/21 Status: Ordered pantoprazole 40 mg delayed release oral tablet (3 sources) Proton Pump Inhibitor Start: 04-04-2021 take 1 tablet by mouth once daily Protonix 40 mg Tab-EC 40 mg = 1 tab(s), Oral, Daily, # 30 tab(s), Refills(s) 0, Pharmacy: [facility], 165, cm, 04/04/21 21:22:00 EDT, Height/Length Dosing, 92, kg, 04/04/21 21:22:00 EDT, Weight Dosing Start Date: 04/04/21 Status: Ordered predniSONE 50 mg oral tablet (1 source) Start: 08-29-2022 End: 09-03-2022 take 1 tablet by mouth once daily predniSONE 50 mg Tab 50 mg = 1 tab(s), Oral, Daily, X 5 day(s), # 5 tab(s), Refills(s) 0 Start Date: 08/29/22 Stop Date: 09/03/22 Status: Ordered Protonix 40 mg Tab-EC (2 sources) Start: 04-04-2021 take 1 tablet by mouth once daily Protonix 40 mg Tab-EC 40 mg = 1 tab(s), Oral, Daily, # 30 tab(s), Refills(s) 0, Pharmacy: [facility], 165, cm, 04/04/21 21:22:00 EDT, Height/Length Dosing, 92, kg, 04/04/21 21:22:00 EDT, Weight Dosing Start Date: 04/04/21 Status: Ordered Vitamin D (1 source) Vitamin D Active Zithromax TRI-EUGENIA 500 mg oral tablet (1 source) Start: 06-20-2020 take 1 tablet by mouth once daily Zithromax TRI-EUGENIA 500 mg oral tablet 500 mg = 1 tab(s), Oral, Daily, # 3 tab(s), Refills(s) 0, Pharmacy: [facility], 165, cm, 06/19/20 21:06:00 EDT, Height/Length Dosing, 90.5, kg, 06/19/20 21:06:00 EDT, Weight Dosing Start Date: 06/20/20 Status: Ordered Problems Active Problems Problem Classification Problem Date Documented Date Episodic/Chronic Cardiac dysrhythmias (1 source) Palpitations; Translations: [Palpitations] Onset: 04-22-2023 Episodic Chronic obstructive pulmonary disease and bronchiectasis (2 sources) Bronchitis; Translations: [Bronchitis, not specified as acute or chronic] Onset: 08-29-2022 Episodic Disorders of teeth and jaw (4 sources) Toothache; Translations: [Other specified disorders of teeth and supporting structures] 05-15-2019 Episodic Headache; including migraine (1 source) Headache; Translations: [Headache, unspecified] Onset: 05-28-2022 Episodic Headache; including migraine (1 source) Headache; including migraine; Translations: [HEADACHE UNSPECIFIED] Onset: 08-22-2022 Immunizations and screening for infectious disease (1 source) Contact with and (suspected) exposure to infections with a predominantly sexual mode of transmission; Translations: [Contact with and (suspected) exposure to infections with a predominantly sexual mode of transmission] Onset: 03-16-2018 Episodic Malaise and fatigue (1 source) Other fatigue; Translations: [Other fatigue] Onset: 04-16-2023 Episodic Nausea and vomiting (1 source) Nausea; Translations: [Nausea] Episodic Nutritional deficiencies (1 source) Vitamin D deficiency, unspecified; Translations: [Vitamin D deficiency, unspecified] Onset: 10-09-2022 Chronic Other ear and sense organ disorders (5 sources) 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 Other ear and sense organ disorders (1 source) Unspecified hearing loss, unspecified ear; Translations: [UNS HEARING LOSS UNSPECIFIED EAR] Onset: 08-22-2022 Chronic Other female genital disorders (3 sources) Other specified noninflammatory disorders of vagina; Translations: [Other specified noninflammatory disorders of vagina] Onset: 11-25-2017 Episodic Other inflammatory condition of skin (1 source) Other pruritus; Translations: [Other pruritus] Onset: 03-16-2018 Episodic Other nervous system disorders (1 source) Chronic pain; Translations: [Other chronic pain] Onset: 05-28-2022 Chronic Other nervous system disorders (1 source) Other chronic pain; Translations: [OTHER CHRONIC PAIN] Onset: 01-23-2023 Chronic Other upper respiratory infections (2 sources) Acute upper respiratory infection; Translations: [Acute upper respiratory infection, unspecified] Onset: 06-18-2022 Episodic Residual codes; unclassified (1 source) Early satiety; Translations: [Early satiety] Episodic Spondylosis; intervertebral disc disorders; other back problems (9 sources) Spondylosis without myelopathy or radiculopathy, lumbar region; Translations: [Spondylosis without myelopathy or radiculopathy, lumbosacral region] Onset: 10-30-2022 Chronic Spondylosis; intervertebral disc disorders; other back problems (6 sources) Lumbago with sciatica; Translations: [Lumbago with sciatica, left side] Onset: 05-28-2022 Episodic Substance-related disorders (2 sources) Smoker 06-18-2022 Chronic Comment on above: Added secondary to d ocumentation in Social History. Unclassified (2 sources) COUGH, UNSPECIFIED; Translations: [COUGH, UNSPECIFIED] Onset: 01-05-2023 Unclassified (1 source) CONTACT W/AND (SUSP) EXPOS COVID-19; Translations: [CONTACT W/AND (SUSP) EXPOS COVID-19] Onset: 01-05-2023 Unclassified (1 source) LOW BACK PAIN, UNSPECIFIED; Translations: [LOW BACK PAIN, UNSPECIFIED] Onset: 10-10-2022 Unclassified (1 source) Unspecified lump in the left breast, overlapping quadrants; Translations: [Unspecified lump in the left breast, overlapping quadrants] Onset: 10-30-2022 Past or Other Problems Problem Classification Problem Date Documented Da te Episodic/Chronic Conditions associated with dizziness or vertigo (1 source) Dizziness and giddiness; Translations: [DIZZINESS AND GIDDINESS] Onset: 08-22-2022 Episodic Nutritional deficiencies (1 source) Iron deficiency; Translations: [Iron deficiency] Onset: 10-09-2022 Episodic Unclassified (2 sources) High risk heterosexual behavior; Translations: [High risk heterosexual behavior] Onset: 11-25-2017 Episodic Unclassified (1 source) COUGH, UNSPECIFIED; Translations: [COUGH, UNSPECIFIED] Onset: 01-01-2023 Viral infection (1 source) Disease caused by 2019-nCoV; Translations: [COVID-19] Onset: 01-09-2022 Results Test Name Value Interpretation Reference Range Facility CA cardiac event monitoron 0 05-25-2023 CA cardiac event monitor [facility] [place] [address] Cardiac Event Monitor Signed Patient: Leena Interiano MR#: [id number] : 1990 Acct:[id number] Age/Sex: 33 / F ADM Date: 04/22/23 Loc: Room: Type: [facility] Attending Dr: Bentley TIMMONS Copies to: Darrin Jay MD, [facility] SHANELLE Galdamez Ordering Provider: SHANELLE Galdamez Date of Service: 04/22/23 EDWIN/EDWIN cardiac event monitor: Palpitations ORDERED BY: Bentley Lucero NP INDICATION: A 33-year-old female with palpitations. The patient was monitored between 04/22/2023 and 05/21/2023. During the recording, there were multiple tracings sent by the patient for a variety of symptoms including chest pain, dizziness, lightheadedness. All rhythm strips revealed normal sinus rhythm with occasional sinus tachycardia with a rate as fast as 124 beats per minute. There were no cardiac arrhythmias noted during any of the recordings. CONCLUSION: A 30-day event monitor that revealed no cardiac arrhythmias and sinus rhythm mechanism was noted during all the tracings. Heart rate ranged between 78 beats per minute and 124 beats per minute. The patient's symptoms of dizziness, chest pain, lightheadedness did not correlate with cardiac arrhythmias. No previous studies are available for comparison. Transcribed By: SHERRI 05/25/23 1521 Dictated By: Darrin Jay MD, [facility] 05/25/23 1047 Signed By: 05/26/[address] [facility] XR cervical spine LAT/FLX/EX Ton 04-22-2023 XR cervical spine LAT/FLX/EXT [facility] [place] [address] XRay Report Signed Patient: Leena Interiano MR#: [id number] : 1990 Acct:[id number] Age/Sex: 33 / F ADM Date: 04/22/23 Loc: Room: Type: [facility] Attending Dr: Bentley TIMMONS Copies to: SHANELLE Galdamez Ordering Provider: SHANELLE Galdamez Date of Service: 04/22/23 XR/XR cervical spine LAT/FLX/EXT: Cervicalgia Lateral neutral, flexion and extension views of thecervical spine HISTORY: Posterior neck pain. COMPARISON: None POSTOPERATIVE CHANGES: None BONY ALIGNMENT: Adequate. No hypermobility. FRACTURE: None DISC DEGENERATION: Disc spaces are adequate. FACETS: Unremarkable DENS: Intact CRANIOCERVICAL JUNCTION: Unremarkable SOFT TISSUES: Unremarkable XR/XR cervical spine LAT/FLX/EXT IMPRESSION: Unremarkable exam. No hypermobility. Impression dictated by: Gentry Acevedo M.D.04/22/2023 1:38 PM Dictation Location: [place] [address] Transcribed By: [facility] 04/22/23 1338 Dictated By: Gentry Acevedo DO 04/22/23 1337 Signed By: 04/22/[address] [facility] A1C with Estimated Average G edn 04-16-2023 Glucose [Mass/Vol] 111 mg/dL [facility] Comment on above: Result Comment: PERF ORMED BY: [facility] [address] [place] [address] PATHOLOGIST EXTRUSION DIE CORRECTOR PRICE ZUNIGA M.D. Performed By: #### T SH3 wRFLX, A1C WTH eA, CBC, CALLUM, CMP, FE and TIBC, B12, [id number] ####[facility] [id number]#### INSULIN ####[facility] , HbA1c (Bld) [Mass fraction] 5.5 % Normal 4.3-5.6 [facility] Comment on above: Result Comment: Incr eased risk for diabetes: 5.7 - 6.4 diabetes: >6.4 glycemic control for adults with diabetes: <7.0 Performed By: #### T SH3 wRFLX, A1C WTH eA, CBC, CALLUM, CMP, FE and TIBC, B12, [id number] ####[facility]#### INSULIN ####[facility] , Alanine aminotransferase [En zymatic activity/volume] in Serum or PlasmaOrdered By: Bentley Lucero on 04-16-2023 ALT [Catalytic activity/Vol] 16 U/L 7-52 [facility] Albumin [Mass/volume] in Ser um or Plasma by Bromocresol green (BCG) dye binding methoOrdered By: Bentley Lucero on 04-16-2023 Albumin BCG dye [Mass/Vol] 4.3 g/dL 3.5-5.7 [facility] Alkaline phosphatase [Enzyma tic activity/volume] in Serum or PlasmaOrdered By: Bentley Lucero on 04-16-2023 ALP [Catalytic activity/Vol] 52 U/L 34-104 [facility] Aspartate aminotransferase [ Enzymatic activity/volume] in Serum or PlasmaOrdered By: Bentley Lucero on 04-16-2023 AST [Catalytic activity/Vol] 16 U/L 13-39 [facility] Basophils Auto (Bld) [#/Vol] Ordered By: Bentley Lucero on 04-16-2023 Basophils (Bld) [#/Vol] 0.0 10*3/uL 0.0-0.2 [facility] Basophils/100 WBC Auto (Bld) Ordered By: Bentley Lucero on 04-16-2023 Basophils/100 WBC (Bld) 0.8 % . [facility] Bilirubin.total [Mass/volume ] in Serum or PlasmaOrdered By: Bentley Spasic on 04-16-2023 Bilirubin [Mass/Vol] 0.4 mg/dL 0.3-1.0 [facility] Calcium [Mass/volume] in Ser um or PlasmaOrdered By: Bentley Tristansic on 04-16-2023 Calcium [Mass/Vol] 9.0 mg/dL 8.6-10.3 [facility] Carbon dioxide, total [Moles /volume] in Serum or PlasmaOrdered By: [facility]2023 CO2 [Moles/Vol] 24.8 mmol/L 21.0-31.0 [facility] Chloride [Moles/volume] in S hugo or PlasmaOrdered By: Bentley Lucero on 04-16-2023 Chloride [Moles/Vol] 109 mmol/L 98-107 [facility] Complete Blood Count Auto Di ffon 04-16-2023 Basophils (Bld) [#/Vol] 0.0 10*3/uL Normal 0.0-0.2 [facility] Comment on above: Result Comment: PERF ORMED BY: [place] [address] PATHOLOGIST EXTRUSION DIE CORRECTOR PRICE ZUNIGA M.D. Performed By: #### T SH3 wRFLX, A1C WTH eA, CBC, CALLUM, CMP, FE and TIBC, B12, [id number] #### [place] [address] [place] #### INSULIN #### [facility] , Basophils/100 WBC (Bld) 0.8 % Normal . [facility] Comment on above: Performed By: #### T SH3 wRFLX, A1C WTH eA, CBC, CALLUM, CMP, FE and TIBC, B12, [id number] #### [address] #### INSULIN #### [facility] , Eosinophils (Bld) [#/Vol] 0.1 10*3/uL Normal 0.0-0.45 [facility] Comment on above: Performed By: #### T SH3 wRFLX, A1C WTH eA, CBC, CALLUM, CMP, FE and TIBC, B12, [id number] #### [address] #### INSULIN #### [facility] , Eosinophils/100 WBC (Bld) 3.0 % Normal . [facility] Comment on above: Performed By: #### T SH3 wRFLX, A1C WTH eA, CBC, CALLUM, CMP, FE and TIBC, B12, [id number] #### [address] #### INSULIN #### [facility] , Erythrocyte distribution width (RBC) [Ratio] 13.3 % Normal 11.9-15.3 [facility] Comment on above: Performed By: #### T SH3 wRFLX, A1C WTH eA, CBC, CALLUM, CMP, FE and TIBC, B12, [id number] #### [address] #### INSULIN #### [facility] , Hematocrit (Bld) [Volume fraction] 36.5 % Normal 34.0-46.4 [facility] Comment on above: Performed By: #### T SH3 wRFLX, A1C WTH eA, CBC, CALLUM, CMP, FE and TIBC, B12, [id number] #### [facility] [address] [place] [address] [place] #### INSULIN #### [facility] , Hemoglobin (Bld) [Mass/Vol] 12.3 g/dL Normal 11.8-15.4 [facility] Comment on above: Performed By: #### T SH3 wRFLX, A1C WTH eA, CBC, CALLUM, CMP, FE and TIBC, B12, [id number] #### [facility] [address] [place] [address] [place] #### INSULIN #### [facility] , Lymphocytes (Bld) [#/Vol] 2.2 10*3/uL Normal 1.00-4.8 [facility] Comment on above: Performed By: #### T SH3 wRFLX, A1C WTH eA, CBC, CALLUM, CMP, FE and TIBC, B12, [id number] #### [address] #### INSULIN #### [facility] , Lymphocytes/100 WBC (Bld) 43.7 % Normal . [facility] Comment on above: Performed By: #### T SH3 wRFLX, A1C WTH eA, CBC, CALLUM, CMP, FE and TIBC, B12, [id number] #### [address] #### INSULIN #### [facility] , MCH (RBC) [Entitic mass] 27.0 pg Normal 24.7-34.3 [facility] Comment on above: Performed By: #### T SH3 wRFLX, A1C WTH eA, CBC, CALLUM, CMP, FE and TIBC, B12, [id number] #### [facility] [address] [place] [address] [place] #### INSULIN #### [facility] , MCV (RBC) [Entitic vol] 79.9 fL Low 80-100 [facility] Comment on above: Performed By: #### T SH3 wRFLX, A1C WTH eA, CBC, CALLUM, CMP, FE and TIBC, B12, [id number] #### [facility] [address] [place] [address] [place] #### INSULIN #### [facility] , Mean Corpuscular HGB Conc 33.8 g/dL Normal 32.0-35.0 [facility] Comment on above: Performed By: #### T SH3 wRFLX, A1C WTH eA, CBC, CALLUM, CMP, FE and TIBC, B12, [id number] #### [facility] [address] [place] [address] #### INSULIN #### [facility] , Monocytes (Bld) [#/Vol] 0.3 10*3/uL Normal 0.0-0.8 [facility] Comment on above: Performed By: #### T SH3 wRFLX, A1C WTH eA, CBC, CALLUM, CMP, FE and TIBC, B12, [id number] #### [facility] [address] [place] [address] #### INSULIN #### [facility] , Monocytes/100 WBC (Bld) 5.2 % Normal . [facility] Comment on above: Performed By: #### T SH3 wRFLX, A1C WTH eA, CBC, CALLUM, CMP, FE and TIBC, B12, [id number] #### [facility] [address] [place], [place] [address] #### INSULIN #### [facility] , Neutrophils (Bld) [#/Vol] 2.3 10*3/uL Normal 1.8-7.7 [facility] Comment on above: Performed By: #### T SH3 wRFLX, A1C WTH eA, CBC, CALLUM, CMP, FE and TIBC, B12, [id number] #### [facility] [address] [place] [address] [place] #### INSULIN #### [facility] , Neutrophils/100 WBC (Bld) 47.3 % Normal . [facility] Comment on above: Performed By: #### T SH3 wRFLX, A1C WTH eA, CBC, CALLUM, CMP, FE and TIBC, B12, [id number] #### [facility] [address] [place] [address] [place] #### INSULIN #### [facility] , NRBC% 0.2 /100{WBC} Normal 0-0.5 [facility] Comment on above: Performed By: #### T SH3 wRFLX, A1C WTH eA, CBC, CALLUM, CMP, FE and TIBC, B12, [id number] #### [facility] [address] [place] [address] #### INSULIN #### [facility] , Platelet mean volume (Bld) [Entitic vol] 9.2 fL Normal 6.3-10.7 [facility] Comment on above: Performed By: #### T SH3 wRFLX, A1C WTH eA, CBC, CALLUM, CMP, FE and TIBC, B12, [id number] #### [facility] [address] [place] [address] #### INSULIN #### [facility] , Platelets (Bld) [#/Vol] 260 10*3/uL Normal 150-450 [facility] Comment on above: Performed By: #### T SH3 wRFLX, A1C WTH eA, CBC, CALLUM, CMP, FE and TIBC, B12, [id number] #### [facility] [address] [place] [address] #### INSULIN #### [facility] , RBC (Bld) [#/Vol] 4.57 10*6/uL Normal 3.60-5.00 [facility] Comment on above: Performed By: #### T SH3 wRFLX, A1C WTH eA, CBC, CALLUM, CMP, FE and TIBC, B12, [id number] #### [facility] [address] [place] [address] [place] #### INSULIN #### [facility] , WBC (Bld) [#/Vol] 4.9 10*3/uL Normal 3.8-11.6 [facility] Comment on above: Performed By: #### T SH3 wRFLX, A1C WTH eA, CBC, CALLUM, CMP, FE and TIBC, B12, [id number] #### [facility] [address] [place] [address] [place] #### INSULIN #### [facility] , Comprehensive Metabolic Pane adam 04-16-2023 Albumin [Mass/Vol] 4.3 g/dL Normal 3.5-5.7 [facility] Comment on above: Performed By: #### T SH3 wRFLX, A1C WTH eA, CBC, CALLUM, CMP, FE and TIBC, B12, [id number] #### [facility] [address] [place] [address] #### INSULIN #### [facility] , Albumin/Globulin [Mass ratio] 1.7 {ratio} Normal [facility] Comment on above: Performed By: #### T SH3 wRFLX, A1C WTH eA, CBC, CALLUM, CMP, FE and TIBC, B12, [id number] #### [facility] [address] [place] [address] [place] #### INSULIN #### [facility] , ALP [Catalytic activity/Vol] 52 U/L Normal 34-104 [facility] Comment on above: Performed By: #### T SH3 wRFLX, A1C WTH eA, CBC, CALLUM, CMP, FE and TIBC, B12, [id number] #### [facility] [address] [place] [address] #### INSULIN #### [facility] , ALT [Catalytic activity/Vol] 16 U/L Normal 7-52 [facility] Comment on above: Performed By: #### T SH3 wRFLX, A1C WTH eA, CBC, CALLUM, CMP, FE and TIBC, B12, [id number] #### [facility] [address] [place] [address] [place] #### INSULIN #### [facility] , Anion gap [Moles/Vol] 10.1 mmol/L Normal 6.0-15.0 [facility] Comment on above: Performed By: #### T SH3 wRFLX, A1C WTH eA, CBC, CALLUM, CMP, FE and TIBC, B12, [id number] #### [facility] [address] [place] [address] [place] #### INSULIN #### [facility] , AST [Catalytic activity/Vol] 16 U/L Normal 13-39 [facility] Comment on above: Performed By: #### T SH3 wRFLX, A1C WTH eA, CBC, CALLUM, CMP, FE and TIBC, B12, [id number] #### [facility] [address] [place] [address] #### INSULIN #### [facility] , Bilirubin [Mass/Vol] 0.4 mg/dL Normal 0.3-1.0 [facility] Comment on above: Performed By: #### T SH3 wRFLX, A1C WTH eA, CBC, CALLUM, CMP, FE and TIBC, B12, [id number] #### [facility] [address] [place] [address] [place] #### INSULIN #### [facility] , Calcium [Mass/Vol] 9.0 mg/dL Normal 8.6-10.3 [facility] Comment on above: Performed By: #### T SH3 wRFLX, A1C WTH eA, CBC, CALLUM, CMP, FE and TIBC, B12, [id number] #### [facility] [address] [place] [address] [place] #### INSULIN #### [facility] , Chloride [Moles/Vol] 109 mmol/L High 98-107 [facility] Comment on above: Performed By: #### T SH3 wRFLX, A1C WTH eA, CBC, CALLUM, CMP, FE and TIBC, B12, [id number] #### [facility] [address] [place] [address] [place] #### INSULIN #### [facility] , CO2 [Moles/Vol] 24.8 mmol/L Normal 21.0-31.0 [facility] Comment on above: Performed By: #### T SH3 wRFLX, A1C WTH eA, CBC, CALLUM, CMP, FE and TIBC, B12, [id number] #### [facility] [address] [place] [address] [place] #### INSULIN #### [facility] , Creatinine [Mass/Vol] 0.84 mg/dL Normal 0.60-1.20 [facility] Comment on above: Performed By: #### T SH3 wRFLX, A1C WTH eA, CBC, CALULM, CMP, FE and TIBC, B12, [id number] #### [facility] [address] [place] [address] #### INSULIN #### [facility] , GFR/1.73 sq M.predicted MDRD (S/P/Bld) [Vol rate/Area] mL/min/{1.73_m2} [facility] Comment on above: Performed By: #### T SH3 wRFLX, A1C WTH eA, CBC, CALLUM, CMP, FE and TIBC, B12, [id number] #### [address] #### INSULIN #### [facility] , Globulin (S) [Mass/Vol] 2.6 g/dL Normal [facility] Comment on above: Performed By: #### T SH3 wRFLX, A1C WTH eA, CBC, CALLUM, CMP, FE and TIBC, B12, [id number] #### [facility] [address] [place] [address] [place] #### INSULIN #### [facility] , Glucose [Mass/Vol] 116 mg/dL High 70-100 [facility] Comment on above: Result Comment: [place] Glucose Reference Range is dependent on time and content of last meal. Glucose of more than 200 mg/dL in a nonstressed, ambulatory subject supports the diagnosis of Diabetes Mellitus. ADA recommended reference range Performed By: #### T SH3 wRFLX, A1C WTH eA, CBC, CALLUM, CMP, FE and TIBC, B12, [id number] #### [facility] [address] [place] [address] [place] #### INSULIN #### [facility] , Potassium [Moles/Vol] 3.9 mmol/L Normal 3.5-5.1 [facility] Comment on above: Performed By: #### T SH3 wRFLX, A1C WTH eA, CBC, CALLUM, CMP, FE and TIBC, B12, [id number] #### [address] #### INSULIN #### [facility] , Protein [Mass/Vol] 6.9 g/dL Normal 6.4-8.9 [facility] Comment on above: Performed By: #### T SH3 wRFLX, A1C WTH eA, CBC, CALLUM, CMP, FE and TIBC, B12, [id number] #### [facility] [address] [place] [address] [place] #### INSULIN #### [facility] , Sodium [Moles/Vol] 140 mmol/L Normal 136-145 [facility] Comment on above: Performed By: #### T SH3 wRFLX, A1C WTH eA, CBC, CALLUM, CMP, FE and TIBC, B12, [id number] #### [place] [address] [place] #### INSULIN #### [facility] , Urea nitrogen [Mass/Vol] 14 mg/dL Normal 7-25 [facility] Comment on above: Performed By: #### T SH3 wRFLX, A1C WTH eA, CBC, CALLUM, CMP, FE and TIBC, B12, [id number] #### [facility] [address] [place] [address] [place] #### INSULIN #### [facility] , Creatinine [Mass/volume] in Serum or PlasmaOrdered By: Bentley Lucero on 04-16-2023 Creatinine [Mass/Vol] 0.84 mg/dL 0.60-1.20 [facility] Eosinophils Auto (Bld) [#/Vo l]Ordered By: Bentley Lucero on 04-16-2023 Eosinophils (Bld) [#/Vol] 0.1 10*3/uL 0.0-0.45 [facility] Eosinophils/100 WBC Auto (Bl d)Ordered By: Bentley Lucero on 04-16-2023 Eosinophils/100 WBC (Bld) 3.0 % . [facility] Erythrocyte distribution wid th Auto (RBC) [Ratio]Ordered By: Bentley Lucero on 04-16-2023 Erythrocyte distribution width (RBC) [Ratio] 13.3 % 11.9-15.3 [facility] Ferritinon 04-16-2023 Ferritin [Mass/Vol] 12.7 ng/mL Normal 11.0-306.8 [facility] Comment on above: Performed By: #### T SH3 wRFLX, A1C WTH eA, CBC, CALLUM, CMP, FE and TIBC, B12, [id number] #### [facility] [address] #### INSULIN #### [facility] , Ferritin [Mass/volume] in Se rum or PlasmaOrdered By: Bentley Lucero on 04-16-2023 Ferritin [Mass/Vol] 12.7 ng/mL 11.0-306.8 [facility] Globulin Calc (S) [Mass/Vol] Ordered By: Bentley Lucero on 04-16-2023 Globulin (S) [Mass/Vol] 2.6 g/dL F [facility] Glucose [Mass/volume] in Ser um or PlasmaOrdered By: Bentley Lucero on 04-16-2023 Glucose [Mass/Vol] 116 mg/dL 70-100 [facility] Comment on above: ADA recommended refe rence rangeRandom Glucose Reference Range is dependent on time and content of last meal. Glucose of more than 200 mg/dL in a nonstressed, ambulatory subject supports the diagnosis of Diabetes Mellitus. Glucose mean value [Mass/vol ume] in Blood Estimated from glycated hemoglobinOrdered By: Bentley Lucero on 04-16-2023 Average glucose Estimated from glycated hemoglobin (Bld) [Mass/Vol] 111 mg/dL [facility] Hematocrit Auto (Bld) [Volum e fraction]Ordered By: Bentley Lucero on 04-16-2023 Hematocrit (Bld) [Volume fraction] 36.5 % 34.0-46.4 [facility] Hemoglobin A1c percentageOrd ered By: Bentley Lucero on 04-16-2023 HbA1c (Bld) [Mass fraction] 5.5 % 4.3-5.6 [facility] Comment on above: Increased risk for d iabetes: 5.7 - 6.4diabetes: >6.4glycemic control for adults with diabetes: <7.0 Hemoglobin [Mass/volume] in BloodOrdered By: Bentley Lucero on 04-16-2023 Hemoglobin (Bld) [Mass/Vol] 12.3 g/dL 11.8-15.4 [facility] Insulinon 04-16-2023 Insulin 44.2 u[iU]/mL High 2.6-24.9 [facility] Comment on above: Result Comment: Perf ormed at: CB - [facility] [place] [id number] Claim Agent: Arturo Souza PhD, Phone: [phone] PERFORMED BY: [facility] [address] [place] [address] PATHOLOGIST EXTRUSION DIE CORRECTOR PRICE ZUNIGA M.D. Performed By: #### T SH3 wRFLX, A1C WTH eA, CBC, CALLUM, CMP, FE and TIBC, B12, [id number] ####[facility] [id number]#### INSULIN ####[facility] , Iron [Mass/volume] in Serum or PlasmaOrdered By: Bentley Lucero on 04-16-2023 Iron [Mass/Vol] 55 ug/dL 50-212 [facility] Iron and TIBC Profileon 08 % Iron Saturation 16.0 % Low 20-50 [facility] Comment on above: Performed By: #### T SH3 wRFLX, A1C WTH eA, CBC, CALLUM, CMP, FE and TIBC, B12, [id number] #### [facility] [address] [place] [address] [place] #### INSULIN #### [facility] , Iron [Mass/Vol] 55 ug/dL Normal 50-212 [facility] Comment on above: Performed By: #### T SH3 wRFLX, A1C WTH eA, CBC, CALLUM, CMP, FE and TIBC, B12, [id number] #### [facility] [address] [place] [address] [place] #### INSULIN #### [facility] , Total Iron Binding Capacity 344 ug/dL Normal 255-450 [facility] Comment on above: Performed By: #### T SH3 wRFLX, A1C WTH eA, CBC, CALLUM, CMP, FE and TIBC, B12, [id number] #### [facility] [address] [place] [address] [place] #### INSULIN #### [facility] , Transferrin [Mass/Vol] 246 mg/dL Normal 203-362 [facility] Comment on above: Performed By: #### T SH3 wRFLX, A1C WTH eA, CBC, CALLUM, CMP, FE and TIBC, B12, [id number] #### [facility] [address] [place] [address] [place] #### INSULIN #### [facility] , Iron binding capacity [Mass/ volume] in Serum or PlasmaOrdered By: Bentley Lucero on 04-16-2023 Iron binding capacity [Mass/Vol] 344 ug/dL 255-450 [facility] Iron saturation [Mass Fracti on] in Serum or PlasmaOrdered By: Bentley Lucero on 04-16-2023 Iron saturation [Mass fraction] 16.0 % 20-50 [facility] Leukocytes [#/volume] correc flavio for nucleated erythrocytes in Blood by Automated counOrdered By: Bentley Lucero on 04-16-2023 WBC corrected for nucl RBC Auto (Bld) [#/Vol] 4.9 10*3/uL 3.8-11.6 [facility] Lymphocytes Auto (Bld) [#/Vo l]Ordered By: Bentley Lucero on 04-16-2023 Lymphocytes (Bld) [#/Vol] 2.2 10*3/uL 1.00-4.8 [facility] Lymphocytes/100 WBC Auto (Bl d)Ordered By: Bentley Lucero on 04-16-2023 Lymphocytes/100 WBC (Bld) 43.7 % . [facility] MCH Auto (RBC) [Entitic mass ]Ordered By: Bentley Lucero on 04-16-2023 MCH (RBC) [Entitic mass] 27.0 pg 24.7-34.3 [facility] MCHC Auto (RBC) [Mass/Vol]Or dered By: Bentley Tristansirosy on 04-16-2023 MCHC (RBC) [Mass/Vol] 33.8 g/dL 32.0-35.0 [facility] MCV Auto (RBC) [Entitic vol] Ordered By: Bentley Lucero on 04-16-2023 MCV (RBC) [Entitic vol] 79.9 fL 80-100 [facility] Monocytes Auto (Bld) [#/Vol] Ordered By: Bentley Englishc on 04-16-2023 Monocytes (Bld) [#/Vol] 0.3 10*3/uL 0.0-0.8 [facility] Monocytes/100 WBC Auto (Bld) Ordered By: Bentley Luecro on 04-16-2023 Monocytes/100 WBC (Bld) 5.2 % . [facility] Neutrophils Auto (Bld) [#/Vo l]Ordered By: Bentley Englishc on 04-16-2023 Neutrophils (Bld) [#/Vol] 2.3 10*3/uL 1.8-7.7 [facility] Neutrophils/100 WBC Auto (Bl d)Ordered By: Bentley Tristansic on 04-16-2023 Neutrophils/100 WBC (Bld) 47.3 % . [facility] No Panel InformationOrdered By: Bentley Lucero on 04-16-2023 Estimated GFR (CKD-EPI) > 60.0 mL/Min [facility] Creatinine Clearance (Chem N/A [facility] Nucleated erythrocytes [Pres ence] in Blood by Automated countOrdered By: Bentley Lucero on 04-16-2023 Nucleated RBC Auto Ql (Bld) 0.2 /100{WBC} 0-0.5 [facility] Platelet mean volume Auto (B ld) [Entitic vol]Ordered By: Bentley Lucero on 04-16-2023 Platelet mean volume (Bld) [Entitic vol] 9.2 fL 6.3-10.7 [facility] Platelets Auto (Bld) [#/Vol] Ordered By: Bentley Lucero on 04-16-2023 Platelets (Bld) [#/Vol] 260 10*3/uL 150-450 [facility] Potassium [Moles/volume] in Serum or PlasmaOrdered By: Bentley Lucero on 04-16-2023 Potassium [Moles/Vol] 3.9 mmol/L 3.5-5.1 [facility] Protein [Mass/volume] in Ser um or PlasmaOrdered By: Bentley Luceor on 04-16-2023 Protein [Mass/Vol] 6.9 g/dL 6.4-8.9 [facility] RBC Auto (Bld) [#/Vol]Ordere d By: Bentley Lucero on 04-16-2023 RBC (Bld) [#/Vol] 4.57 10*6/uL 3.60-5.00 [facility] Serum or plasma albumin/glob ulin mass ratioOrdered By: Bentley Lucero on 04-16-2023 Albumin/Globulin [Mass ratio] 1.7 {ratio} [facility] Serum or plasma anion gap de terminationOrdered By: Bentley Lucero on 04-16-2023 Anion gap [Moles/Vol] 10.1 mmol/L 6.0-15.0 [facility] Serum or plasma insulin jose urement (units/volume)Ordered By: Bentley Lucero on 04-16-2023 Insulin Qn 44.2 u[iU]/mL 2.6-24.9 [facility] Comment on above: Performed at: CB - [facility] [address] [id number] Director: Arturo Souza PhD, Phone: [phone] Sodium [Moles/volume] in Ser um or PlasmaOrdered By: Bentley Lucero on 04-16-2023 Sodium [Moles/Vol] 140 mmol/L 136-145 [facility] Thyroid Stim Hormone w/Rflxo n 04-16-2023 Thyroid Stim Hormone w/Rflx 1.14 u[iU]/mL Normal 0.45-5.33 [facility] Comment on above: Performed By: #### T SH3 wRFLX, A1C WTH eA, CBC, CALLUM, CMP, FE and TIBC, B12, [id number] #### [facility] [address] #### INSULIN #### [facility] , Thyrotropin [Units/volume] i n Serum or PlasmaOrdered By: Bentley Lucero on 04-16-2023 TSH Qn 1.14 m[IU]/L 0.45-5.33 [facility] Transferrin [Mass/volume] in Serum or PlasmaOrdered By: Bentley Lucero on 04-16-2023 Transferrin [Mass/Vol] 246 mg/dL 203-362 [facility] Urea nitrogen [Mass/volume] in Serum or PlasmaOrdered By: Bentley Lucero on 04-16-2023 Urea nitrogen [Mass/Vol] 14 mg/dL 7-25 [facility] Vitamin B12on 04-16-2023 Cobalamin (Vitamin B12) [Mass/Vol] 195 pg/mL Normal 180-914 [facility] Comment on above: Performed By: #### T SH3 wRFLX, A1C WTH eA, CBC, CALLUM, CMP, FE and TIBC, B12, [id number] #### [facility] [address] [place] [address] [place] #### INSULIN #### [facility] , Vitamin B12 ser/plasOrdered By: Bentley Lucero on 04-16-2023 Cobalamin (Vitamin B12) [Mass/Vol] 195 pg/mL 180-914 [facility] Vitamin D 25 Hydroxy Totalon 04-16-2023 Vitamin D 25 Hydroxy Total 21.1 ng/mL Low 30-100 [facility] Comment on above: Result Comment: [place] MIN D STATUS 25(OH)VITAMIN D RANGE (ng/mL) Deficient <20 Insufficient 20 to <30 Sufficient 30 to 100 Reference: Briana Billy, Brenton VARGAS, et al. Evaluation,treatment, and prevention of vitamin D deficiency; an Endocrine Society clinical practice guideline. JCEM. 2010; 96(7):1911-30. PERFORMED BY: [facility] [address] [place] [address] PATHOLOGIST EXTRUSION DIE CORRECTOR PRICE ZUNIGA M.D. Performed By: #### T SH3 wRFLX, A1C WTH eA, CBC, CALLUM, CMP, FE and TIBC, B12, [id number] ####[facility] [address]#### INSULIN ####[facility] , Vitamin D+Metabolites [Mass/ volume] in Serum or PlasmaOrdered By: Bentley Lucero on 04-16-2023 Vitamin D+Metabolites [Mass/Vol] 21.1 ng/mL 30-100 [facility] Comment on above: VITAMIN D STATUS 25( [place])VITAMIN D RANGE (ng/mL) Deficient <20 Insufficient 20 to <30Sufficient 30 to 100Reference: Briana Billy, Brenton VARGAS, et al. Evaluation,treatment, and prevention of vitamin D deficiency; an Endocrine Society clinical practice guideline. JCEM. 2010; 96(7):1911-30. WBC Auto (Bld) [#/Vol]Ordere d By: Bentley Lucero on 04-16-2023 WBC (Bld) [#/Vol] 4.9 10*3/uL 3.8-11.6 [facility] ER URINE PROFILEon 3 Bilirubin Ql (U) Negative Normal NEGATIVE [facility] Comment on above: Performed By: #### P REGU, ERUR, UMICRO #### [facility] [address] [address] [address] Samm Hurtado Clarity (U) CLEAR Normal CLEAR [facility] Comment on above: Performed By: #### P REGU, ERUR, UMICRO #### [facility] [address] [address] [address] Samm Hurtado Color (U) YELLOW Normal YELLOW [facility] Comment on above: Performed By: #### P REGU, ERUR, UMICRO #### [facility] [address] [address] [address] Samm OVALLE A micrscopic examination will be performed if indicated. Normal [facility] Comment on above: Performed By: #### P REGU, ERUR, UMICRO #### [facility] [address] [place] [address] Dr. Samm Hurtado Glucose Ql (U) Negative Normal NEGATIVE [facility] Comment on above: Performed By: #### P REGU, ERUR, UMICRO #### [facility] [address] [place] [address] Dr. Samm Hurtado Hemoglobin Ql (U) LARGE Abnormal NEGATIVE [facility] Comment on above: Performed By: #### P REGU, ERUR, UMICRO #### [facility] [address] [place] [address] Dr. Samm Hurtado Ketones Ql (U) Negative Normal NEGATIVE [facility] Comment on above: Performed By: #### P REGU, ERUR, UMICRO #### [facility] [address] [address] [address] Samm Hurtado LEUKOCYTES Negative Normal NEGATIVE [facility] Comment on above: Performed By: #### P REGU, ERUR, UMICRO #### [facility] [address] [place] [address] Dr. Samm Hurtado Nitrite Ql (U) Negative Normal NEGATIVE [facility] Comment on above: Performed By: #### P REGU, ERUR, UMICRO #### [facility] [address] [address] [address] Samm Hurtado pH (U) 5.5 [pH] Normal 5-9 [facility] Comment on above: Performed By: #### P MARTÍN LOCKE UMICRO #### [facility] [address] [place] [address] Dr. Samm Hurtado SPEC GRAVITY >=1.030 Abnormal 1.005-<=1.02 5 [facility] Comment on above: Performed By: #### P REGRE StokesR UMICRO #### [facility] [address] [address] [address] Samm Hurtado UA PROTEIN Negative Normal NEGATIVE/ TRACE [facility] Comment on above: Performed By: #### P MARTÍN LOCKE UMICRO #### [facility] [address] [place] [address] Dr. Samm Hurtado UR MICRO IND INDICATED Normal [facility] Comment on above: Performed By: #### MARTÍN THORNE UMICRO #### [facility] [address] [place] [address] Dr. Samm Hurtado Urobilinogen Qn (U) 0.2 {Edwin'U}/dL Normal 0.2 - 1. 0 [facility] Comment on above: Performed By: #### P MARTÍN LOCKE UMICRO #### [facility] [address] [place] [address] Dr. Samm Hurtado URon 01-01-2023 , QUAL Negative Normal NEGATIVE [facility] Comment on above: Performed By: #### P REGMARTÍN Stokes UMICRO #### [facility] [address] [place] [address] Dr. Samm Hurtado RESPIRATORY PANEL PLUSon Adenovirus Not detected Normal NOT DETECTED [facility] Comment on above: Performed By: #### R SPLUS ####[facility] [id number] [place] [address]Dr. Samm Hurtado B. Parapertusis Not detected Normal NOT DETECTED [facility] Comment on above: Performed By: #### R SPLUS ####[facility] [id number] [place] [address]Dr. Adoresuzette Hurtado B. Pertussis Not detected Normal NOT DETECTED [facility] Comment on above: Performed By: #### R SPLUS ####[facility] [address] [place], [place] [address]Dr. Yisuzette Hurtado Chlamydia Pneumoniae Not detected Normal NOT DETECTED [facility] Comment on above: Performed By: #### R SPLUS ####[facility] [address] [place], [place] [address]Dr. Yisuzette Hurtado Coronavirus 229E Not detected Normal NOT DETECTED [facility] Comment on above: Performed By: #### R SPLUS ####[facility] [address] [place], [place] [address]Dr. Samm Hurtado Coronavirus HKU1 Not detected Normal NOT DETECTED The [facility] Comment on above: Performed By: #### R SPLUS ####[facility] [address] [place], [place] [address]Dr. Samm Hurtado Coronavirus NL63 Not detected Normal NOT DETECTED The [facility] Comment on above: Performed By: #### R SPLUS ####[facility] [address] [place], [place] [address]Dr. Samm Hurtado Coronavirus OC43 Not detected Normal NOT DETECTED The [facility] Comment on above: Performed By: #### R SPLUS ####[facility] [address] [place], [place] [address]Dr. Yisuzette Hurtado Influenza A H1 Not detected Normal NOT DETECTED [facility] Comment on above: Performed By: #### R SPLUS ####[facility] [address] [place], [place] [address]Dr. Yilan Hurtado Influenza A H1 2009 Not detected Normal NOT DETECTED [facility] Comment on above: Performed By: #### R SPLUS ####[facility] [address] [place], [place] [address]Dr. Yilan Hurtado Influenza A H3 Not detected Normal NOT DETECTED [facility] Comment on above: Performed By: #### R SPLUS ####[facility] [address] [place], [place] [address]Dr. Yilan Hurtado Influenza B Not detected Normal NOT DETECTED The [facility] Comment on above: Performed By: #### R SPLUS ####[facility] [address] [address]Dr. Adoresuzette Hurtado Metapneumovirus Not detected Normal NOT DETECTED The [facility] Comment on above: Performed By: #### R SPLUS ####[facility] [address] [place] [address]Dr. Samm Hurtado Mycoplas. Pneumoniae Not detected Normal NOT DETECTED The [facility] Comment on above: Performed By: #### R SPLUS ####[facility] [address] [place] [address]Dr. Samm Hurtado Parainfluenza 1 Not detected Normal NOT DETECTED The [facility] Comment on above: Performed By: #### R SPLUS ####[facility] [address] [place], [place] [address]Dr. Samm Hurtado Parainfluenza 2 Not detected Normal NOT DETECTED The [facility] Comment on above: Performed By: #### R SPLUS ####[facility] [address] [place], [place] [address]Dr. Adoresuzette Hurtado Parainfluenza 3 Not detected Normal NOT DETECTED The [facility] Comment on above: Performed By: #### R SPLUS ####[facility] [address] [place], [place] [address]Dr. Samm Hurtado Parainfluenza 4 Not detected Normal NOT DETECTED The [facility] Comment on above: Performed By: #### R SPLUS ####[facility] [address] [place], [place] [address]Dr. Samm Hurtado Rhino/Enterovirus Detected Abnormal NOT DETECTED The [facility] Comment on above: Performed By: #### R SPLUS ####[facility] [address] [place], [place] [address]Dr. Samm Hurtado RP2 Header 1 RESPIRATORY PANEL: VIRUSES Normal The [facility] Comment on above: Performed By: #### R SPLUS ####[facility] [address] [place], [place] [address]Dr. Samm Hurtado RP2 Header 2 RESPIRATORY PANEL: BACTERIA Normal The [facility] Comment on above: Performed By: #### R SPLUS ####[facility] [address] [place] [address]Dr. Samm Hurtado RSV Not detected Normal NOT DETECTED The [facility] Comment on above: Performed By: #### R SPLUS ####[facility] [address] [place] [address]Dr. Samm Hurtado SARS-CoV-2 (COVID-19) RNA PARI+probe Ql (Unsp spec) Not detected Normal NOT DETECTED The [facility] Comment on above: Performed By: #### R SPLUS ####[facility] [address] [place] [address]Dr. Samm Hurtado URINE MICROSCOPIC ONLYon BACTERIA NONE SEEN Normal NONE SEEN The [facility] Comment on above: Performed By: #### P REGU, ERUR, UMICRO #### [facility] [address] [address] [address] Samm Hurtado Bacteria identified Cx Nom (U) NOT INDICATED Normal The [facility] Comment on above: Performed By: #### P REGU, ERUR, UMICRO #### [facility] [address] [address] [address] Samm Hurtado CAST NONE SEEN Normal NONE SEEN The [facility] Comment on above: Performed By: #### P REGU, ERUR, UMICRO #### [facility] [address] [address] [address] Samm Hurtado Crystals LM Nom (Urine sed) SEEN Abnormal NONE SEEN The [facility] Comment on above: Performed By: #### P REGU, ERUR, UMICRO #### [facility] [address] [address] [address] Samm Hurtado Epithelial cells LM Ql (Urine sed) FEW Abnormal NONE SEEN /RARE The [facility] Comment on above: Performed By: #### P REGU, ERUR, UMICRO #### [facility] [address] [address] [address] Samm Hurtado MUCOUS TRACE Abnormal NONE SEEN The [facility] Comment on above: Performed By: #### P REGU, ERUR, UMICRO #### [facility] [address] [address] [address] Samm Hurtado RBC 10-20 Abnormal 0-2 The [facility] Comment on above: Performed By: #### P REGU, ERUR, UMICRO #### [facility] [address] [address] [address] Samm Hurtado WBC NONE SEEN Normal NONE SEEN The [facility] Comment on above: Performed By: #### P REGU, ERUR, UMICRO #### [facility] [id number] Samm Hurtado XR CHEST 1 Von 01-01-2023 XR CHEST 1 V EXAMINATION: XR CHES T 1 V HISTORY: COUGH COMPARISON: XR chest 09/04/2013 FINDINGS: LUNGS: No significant pulmonary parenchymal abnormalities. VASCULATURE: No increased pulmonary vasculature. PLEURA: No pneumothorax, effusion, or pleural thickening. CARDIAC: No cardiomegaly or cardiac silhouette abnormality. MEDIASTINUM: No visible mass or adenopathy. BONES: No fracture or visible bone lesion. OTHER: Negative. IMPRESSION: 1. No acute cardiopulmonary process. Electronically authenticated by: VANESSA JEREZ Date: 2023-01-01 13:22 Normal The [facility] CT lumbar spine wo conon CT lumbar spine wo con [facility] [place] [address] CT Scan Report Signed Patient: Leena Interiano MR#: [id number] : 1990 Acct:[id number] Age/Sex: 32 / F ADM Date: 10/30/22 Loc: [place] Room: Type: [facility] Attending Dr: Bentley TIMMONS Copies to: SHANELLE Galdamez Ordering Provider: SHANELLE Galdamez Date of Service: 10/30/22 CT/CT lumbar spine wo con: Lumbar and sacral spondylarthritis CT lumbar spine without contrast with 3-D reconstructions COMPARISON: CT abdomen 08/24/2021 CLINICAL DATA: Low back pain. No injury. Spiral axial unenhanced images were obtained through the lumbar spine. Sagittal, coronal and 3-D volume rendered reconstructions were reviewed. This CT exam was performed using one or more following dose reduction techniques: Automated exposure control, adjustment of the mA and/or kV according to patient size, or use of iterative reconstruction technique. There is incomplete segmentation at L3-4, also seen previously. No acute fractures are noted. Slight retrolisthesis of L2 on L3 and L5 on S1 is again seen. No pars defects are visualized. There is minor endplate spurring at L2-3 and L4-5. There is mild facet disease at L4-5 and the lumbosacral junction, greater on the right. There is mild annular disc bulging at L2-3 with mild thecal sac effacement. No focal disc herniations are noted. There is moderate bony foraminal encroachment at L3-4 and the lumbosacral junction on the right and mild at L4-5 on that side. There is also moderate bony foraminal encroachment at the lumbosacral fusion showing on the left due to facet disease. The SI joints are intact. There is no dislocation at the hips. There is a potential bone island at the right sacral ala. No paraspinal soft tissue abnormalities are present. No acute intra-abdominal or pelvic findings are identified in the field of view. 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 DEGENERATIVE CHANGES, DESCRIBED. Impression dictated by: Adriana Hoffman M.D.10/30/2022 5:11 PM Dictation Location: [place] [address] Transcribed By: [facility] 10/30/22 171 Dictated By: Adriana Hoffman MD 10/30/22 170 Signed By: 10/30/22 171 [facility] breast LT limited 10-30 breast LT [facility] [place] [address] Mammography Report Signed Patient: Leena Interiano MR#: [id number] : 1990 Acct:[id number] Age/Sex: 32 / F ADM Date: 10/30/22 Loc: [place] Room: Type: [facility] Attending Dr: Bentley Lucero NP-C Copies to: SHANELLE Galdamez Ordering Provider: SHANELLE Galdamez Date of Service: 10/30/22 MM/MM diagnostic mammo BI w/CAD: Mass overlapping multiple quadrants of left breast ([id number]) US/US breast LT limited: Mass overlapping multiple quadrants of left breast CLINICAL DATA: Lump left breast BilateralDIAGNOSTIC MAMMOGRAM - WITH TOMOSYNTHESIS AND CAD , leftLIMITED BREAST ULTRASOUND COMPARISON:None Tomosynthesis imaging was obtained using low-dose digital technique. This examination was reviewed with the aid of CAD. Additional ultrasound imaging was also obtained. Mammogram: The breasts are composed of scattered fibroglandular densities. No areas of architectural distortion, worrisome masses or suspicious microcalcifications are noted. Ultrasound: In the area palpable lump at the 9:00 position of the left breast approximately 8 cm from the nipple, no solid mass or cyst is noted. MM/MM diagnostic mammo BI w/CAD IMPRESSION: NO MAMMOGRAPHIC OR ULTRASOUND EVIDENCE OF MALIGNANCY. THE PATIENT'S LUMP SHOULD BE HANDLED ON A CLINICAL BASIS. ROUTINE FOLLOW-UP IS RECOMMENDED IN ONE YEAR. RESULT CODE: 1 Negative DENSITY CODE: 2 (approximately 25-50% glandular) FOLLOW UP: 1YR The false-negative rate of mammography is approximately 10-percent. Management of a palpable abnormality must be based on clinical grounds. Impression dictated by: Adalberto Lanza Jr., D.ODaquan10/30/2022 4:09 PM Dictation Location: [facility] Transcribed By: VALERIE 10/30/22 1609 Dictated By: Adalberto Lanza Jr, DO 10/30/22 1608 Signed By: 10/30/22 1609 Normal [facility] Albumin [Mass/volume] in Ser um or PlasmaOrdered By: Bentley Lucero on 10-09-2022 Albumin [Mass/Vol] 4.1 g/dL 3.2-5.5 [facility] Basophils Auto (Bld) [#/Vol] Ordered By: Bentley Lucero on 10-09-2022 Basophils (Bld) [#/Vol] 0.0 10*3/uL 0.0-0.2 [facility] Basophils/100 WBC Auto (Bld) Ordered By: Bentley Lucero on 10-09-2022 Basophils/100 WBC (Bld) 0.8 % . [facility] CT biopsyOrdered By: Bentley carcamo on 10-09-2022 Transferrin [Mass/Vol] 291 mg/dL 180-380 [facility] Complete Blood Count Auto Di ffon 10-09-2022 Basophils (Bld) [#/Vol] 0.0 10*3/uL Normal 0.0-0.2 [facility] Comment on above: Order Comment: Reaso n for Exam Iron deficiency Result Comment: PERF ORMED BY: [facility] [address] [place] [address] PATHOLOGIST [employer]IE CORRECTOR PRICE ZUNIGA M.D. Performed By: #### C BC, CMP, [id number], FE and TIBC ####[address] Basophils/100 WBC (Bld) 0.8 % Normal . [facility] Comment on above: Order Comment: Reaso n for Exam Iron deficiency Performed By: #### C BC, CMP, [id number], FE and TIBC ####[address] Eosinophils (Bld) [#/Vol] 0.1 10*3/uL Normal 0.0-0.45 [facility] Comment on above: Order Comment: Reaso n for Exam Iron deficiency Performed By: #### C BC, CMP, [id number], FE and TIBC ####[place] [id number] [facility] Eosinophils/100 WBC (Bld) 1.3 % Normal . [facility] Comment on above: Order Comment: Reaso n for Exam Iron deficiency Performed By: #### C BC, CMP, [id number], FE and TIBC ####[address] Erythrocyte distribution width (RBC) [Ratio] 13.8 % Normal 11.9-15.3 [facility] Comment on above: Order Comment: Reaso n for Exam Iron deficiency Performed By: #### C BC, CMP, [id number], FE and TIBC ####[address] Hematocrit (Bld) [Volume fraction] 39.3 % Normal 34.0-46.4 [facility] Comment on above: Order Comment: Reaso n for Exam Iron deficiency Performed By: #### C BC, CMP, [id number], FE and TIBC ####[address] Hemoglobin (Bld) [Mass/Vol] 12.9 g/dL Normal 11.8-15.4 [facility] Comment on above: Order Comment: Reaso n for Exam Iron deficiency Performed By: #### C BC, CMP, [id number], FE and TIBC ####[address] Lymphocytes (Bld) [#/Vol] 2.5 10*3/uL Normal 1.00-4.8 [facility] Comment on above: Order Comment: Reaso n for Exam Iron deficiency Performed By: #### C BC, CMP, [id number], FE and TIBC ####[address] Lymphocytes/100 WBC (Bld) 44.5 % Normal . [facility] Comment on above: Order Comment: Reaso n for Exam Iron deficiency Performed By: #### C BC, CMP, [id number], FE and TIBC ####[address] MCH (RBC) [Entitic mass] 26.2 pg Normal 24.7-34.3 [facility] Comment on above: Order Comment: Reaso n for Exam Iron deficiency Performed By: #### C BC, CMP, [id number], FE and TIBC ####[address] MCV (RBC) [Entitic vol] 80.1 fL Normal 80-100 [facility] Comment on above: Order Comment: Reaso n for Exam Iron deficiency Performed By: #### C BC, CMP, [id number], FE and TIBC ####[address] Mean Corpuscular HGB Conc 32.7 g/dL Normal 32.0-35.0 [facility] Comment on above: Order Comment: Reaso n for Exam Iron deficiency Performed By: #### C BC, CMP, [id number], FE and TIBC ####[address] Monocytes (Bld) [#/Vol] 0.4 10*3/uL Normal 0.0-0.8 [facility] Comment on above: Order Comment: Reaso n for Exam Iron deficiency Performed By: #### C BC, CMP, [id number], FE and TIBC ####[address] Monocytes/100 WBC (Bld) 6.5 % Normal . [facility] Comment on above: Order Comment: Reaso n for Exam Iron deficiency Performed By: #### C BC, CMP, [id number], FE and TIBC ####[address] Neutrophils (Bld) [#/Vol] 2.6 10*3/uL Normal 1.8-7.7 [facility] Comment on above: Order Comment: Reaso n for Exam Iron deficiency Performed By: #### C BC, CMP, [id number], FE and TIBC ####[address] Neutrophils/100 WBC (Bld) 46.9 % Normal . [facility] Comment on above: Order Comment: Reaso n for Exam Iron deficiency Performed By: #### C BC, CMP, [id number], FE and TIBC ####[address] NRBC% 0.2 /100{WBC} Normal 0-0.5 [facility] Comment on above: Order Comment: Reaso n for Exam Iron deficiency Performed By: #### C BC, CMP, [id number], FE and TIBC ####[address] [address] [facility] Platelet mean volume (Bld) [Entitic vol] 9.2 fL Normal 6.3-10.7 [facility] Comment on above: Order Comment: Reaso n for Exam Iron deficiency Performed By: #### C BC, CMP, [id number], FE and TIBC ####[place] [id number] [facility] Platelets (Bld) [#/Vol] 263 10*3/uL Normal 150-450 [facility] Comment on above: Order Comment: Reaso n for Exam Iron deficiency Performed By: #### C BC, CMP, [id number], FE and TIBC ####[place] [id number] [facility] RBC (Bld) [#/Vol] 4.91 10*6/uL Normal 3.60-5.00 [facility] Comment on above: Order Comment: Reaso n for Exam Iron deficiency Performed By: #### C BC, CMP, [id number], FE and TIBC ####[place] [id number] [facility] WBC (Bld) [#/Vol] 5.5 10*3/uL Normal 3.8-11.6 [facility] Comment on above: Order Comment: Reaso n for Exam Iron deficiency Performed By: #### C BC, CMP, [id number], FE and TIBC ####[place] [id number] [facility] Comprehensive Metabolic Pane adam 10-09-2022 Albumin [Mass/Vol] 4.1 g/dL Normal 3.2-5.5 [facility] Comment on above: Order Comment: Reaso n for Exam Iron deficiency Reason for Exam Vitamin D deficiency Performed By: #### C BC, CMP, [id number], FE and TIBC ####[place] [id number] [facility] Albumin/Globulin [Mass ratio] 1.5 {ratio} Normal [facility] Comment on above: Order Comment: Reaso n for Exam Iron deficiency Reason for Exam Vitamin D deficiency Performed By: #### C BC, CMP, [id number], FE and TIBC ####[address] [address] [facility] ALP [Catalytic activity/Vol] 47 U/L Normal 32-92 [facility] Comment on above: Order Comment: Reaso n for Exam Iron deficiency Reason for Exam Vitamin D deficiency Performed By: #### C BC, CMP, [id number], FE and TIBC ####[address] [address] [facility] ALT [Catalytic activity/Vol] 18 U/L Normal 10-60 [facility] Comment on above: Order Comment: Reaso n for Exam Iron deficiency Reason for Exam Vitamin D deficiency Performed By: #### C BC, CMP, [id number], FE and TIBC ####[address] [address] [facility] Anion gap [Moles/Vol] 11.7 mmol/L Normal 6.0-15.0 [facility] Comment on above: Order Comment: Reaso n for Exam Iron deficiency Reason for Exam Vitamin D deficiency Performed By: #### C BC, CMP, [id number], FE and TIBC ####[address] [address] [facility] AST [Catalytic activity/Vol] 19 U/L Normal 10-42 [facility] Comment on above: Order Comment: Reaso n for Exam Iron deficiency Reason for Exam Vitamin D deficiency Performed By: #### C BC, CMP, [id number], FE and TIBC ####[address] [address] [facility] Bilirubin [Mass/Vol] 0.6 mg/dL Normal 0.3-1.2 [facility] Comment on above: Order Comment: Reaso n for Exam Iron deficiency Reason for Exam Vitamin D deficiency Performed By: #### C BC, CMP, [id number], FE and TIBC ####[address] [address] [facility] Calcium [Mass/Vol] 9.1 mg/dL Normal 8.2-10.2 [facility] Comment on above: Order Comment: Reaso n for Exam Iron deficiency Reason for Exam Vitamin D deficiency Performed By: #### C BC, CMP, [id number], FE and TIBC ####[place] [address] [place] [address] [facility] Chloride [Moles/Vol] 106 mmol/L Normal 95-114 [facility] Comment on above: Order Comment: Reaso n for Exam Iron deficiency Reason for Exam Vitamin D deficiency Performed By: #### C BC, CMP, [id number], FE and TIBC ####[address] [address] [facility] CO2 [Moles/Vol] 23.6 mmol/L Normal 22.0-30.0 [facility] Comment on above: Order Comment: Reaso n for Exam Iron deficiency Reason for Exam Vitamin D deficiency Performed By: #### C BC, CMP, [id number], FE and TIBC ####[place] [id number] [facility] Creatinine [Mass/Vol] 0.75 mg/dL Normal 0.44-1.03 [facility] Comment on above: Order Comment: Reaso n for Exam Iron deficiency Reason for Exam Vitamin D deficiency Performed By: #### C BC, CMP, [id number], FE and TIBC ####[place] [id number] [facility] Estimated GFR ( Edith > [address] [facility] Comment on above: Order Comment: Reaso n for Exam Iron deficiency Reason for Exam Vitamin D deficiency Result Comment: GFR estimated reference range: According to KDOQI guidelines, <60 ml/min/1.73m2 is sufficient to diagnose a patient with chronic kidney disease. Performed By: #### C BC, CMP, [id number], FE and TIBC ####[place] [id number] [facility] Estimated GFR (Non- Am > 60 [facility] Comment on above: Order Comment: Reaso n for Exam Iron deficiency Reason for Exam Vitamin D deficiency Performed By: #### C BC, CMP, [id number], FE and TIBC ####[place] [address] [place] [address] [facility] Globulin (S) [Mass/Vol] 2.8 g/dL Normal [facility] Comment on above: Order Comment: Reaso n for Exam Iron deficiency Reason for Exam Vitamin D deficiency Performed By: #### C BC, CMP, [id number], FE and TIBC ####[place] [id number] [facility] Glucose [Mass/Vol] 90 mg/dL Normal 70-100 [facility] Comment on above: Order Comment: Reaso n for Exam Iron deficiency Reason for Exam Vitamin D deficiency Result Comment: [facility] Glucose Reference Range is dependent on time and content of last meal. Glucose of more than 200 mg/dL in a nonstressed, ambulatory subject supports the diagnosis of Diabetes Mellitus. ADA recommended reference range Performed By: #### C BC, CMP, [id number], FE and TIBC ####[place] [id number] [facility] Potassium [Moles/Vol] 4.3 mmol/L Normal 3.5-5.1 [facility] Comment on above: Order Comment: Reaso n for Exam Iron deficiency Reason for Exam Vitamin D deficiency Performed By: #### C BC, CMP, [id number], FE and TIBC ####[place] [id number] [facility] Protein [Mass/Vol] 6.9 g/dL Normal 6.1-7.9 [facility] Comment on above: Order Comment: Reaso n for Exam Iron deficiency Reason for Exam Vitamin D deficiency Performed By: #### C BC, CMP, [id number], FE and TIBC ####[place] [id number] [facility] Sodium [Moles/Vol] 137 mmol/L Normal 136-146 [facility] Comment on above: Order Comment: Reaso n for Exam Iron deficiency Reason for Exam Vitamin D deficiency Performed By: #### C BC, CMP, [id number], FE and TIBC ####[address] [address] [facility] Urea nitrogen [Mass/Vol] 11 mg/dL Normal 9-23 [facility] Comment on above: Order Comment: Reaso n for Exam Iron deficiency Reason for Exam Vitamin D deficiency Performed By: #### C BC, CMP, [id number], FE and TIBC ####[facility] [address] [place] [id number] [facility] Creatinine and Glomerular fi ltration rate.predicted panel (S/P/Bld)Ordered By: Bentley Lucero on 10-09-2022 Creatinine [Mass/Vol] 0.75 mg/dL 0.44-1.03 [facility] Eosinophils Auto (Bld) [#/Vo l]Ordered By: Bentley Lucero on 10-09-2022 Eosinophils (Bld) [#/Vol] 0.1 10*3/uL 0.0-0.45 [facility] Eosinophils/100 WBC Auto (Bl d)Ordered By: Bentley Lucero on 10-09-2022 Eosinophils/100 WBC (Bld) 1.3 % . [facility] Erythrocyte distribution wid th Auto (RBC) [Ratio]Ordered By: Bentley Lucero on 10-09-2022 Erythrocyte distribution width (RBC) [Ratio] 13.8 % 11.9-15.3 [facility] Estimated glomerular filtrat ion rate (GFR) non- AmericanOrdered By: Bentley Lucero on 10-09-2022 GFR/1.73 sq M.predicted among non-blacks MDRD (S/P/Bld) [Vol rate/Area] > 60 mL/Min [facility] Globulin Calc (S) [Mass/Vol] Ordered By: Bentley Lucero on 10-09-2022 Globulin (S) [Mass/Vol] 2.8 g/dL F [facility] Hematocrit Auto (Bld) [Volum e fraction]Ordered By: Bentley Lucero on 10-09-2022 Hematocrit (Bld) [Volume fraction] 39.3 % 34.0-46.4 [facility] Hemoglobin [Mass/volume] in BloodOrdered By: Bentley Lucero on 10-09-2022 Hemoglobin (Bld) [Mass/Vol] 12.9 g/dL 11.8-15.4 [facility] Iron [Mass/volume] in Serum or PlasmaOrdered By: Bentley Lucero on 10-09-2022 Iron [Mass/Vol] 112 ug/dL 40-150 [facility] Iron and TIBC Profileon 09-15 % Iron Saturation 27.5 % Normal 20-50 [facility] Comment on above: Order Comment: Reaso n for Exam Iron deficiency Reason for Exam Vitamin D deficiency Performed By: #### C BC, CMP, [id number], FE and TIBC ####[facility] [address] [place] [address] [facility] Iron [Mass/Vol] 112 ug/dL Normal 40-150 [facility] Comment on above: Order Comment: Reaso n for Exam Iron deficiency Reason for Exam Vitamin D deficiency Performed By: #### C BC, CMP, [id number], FE and TIBC ####[facility] [address] [place] [address] [facility] Total Iron Binding Capacity 407 ug/dL Normal 255-450 [facility] Comment on above: Order Comment: Reaso n for Exam Iron deficiency Reason for Exam Vitamin D deficiency Performed By: #### C BC, CMP, [id number], FE and TIBC ####[place] [address] [place] [address] [facility] Transferrin [Mass/Vol] 291 mg/dL Normal 180-380 [facility] Comment on above: Order Comment: Reaso n for Exam Iron deficiency Reason for Exam Vitamin D deficiency Performed By: #### C BC, CMP, [id number], FE and TIBC ####[facility] [id number] [place] [address] [place] Iron binding capacity [Mass/ volume] in Serum or PlasmaOrdered By: Bentley Lucero on 10-09-2022 Iron binding capacity [Mass/Vol] 407 ug/dL 255-450 [facility] Iron saturation [Mass Fracti on] in Serum or PlasmaOrdered By: Bentley Lucero on 10-09-2022 Iron saturation [Mass fraction] 27.5 % 20-50 [facility] Leukocytes [#/volume] correc flavio for nucleated erythrocytes in Blood by Automated counOrdered By: Bentley Lucero on 10-09-2022 WBC corrected for nucl RBC Auto (Bld) [#/Vol] 5.5 10*3/uL 3.8-11.6 [facility] Lymphocytes Auto (Bld) [#/Vo l]Ordered By: Bentley Lucero on 10-09-2022 Lymphocytes (Bld) [#/Vol] 2.5 10*3/uL 1.00-4.8 [facility] Lymphocytes/100 WBC Auto (Bl d)Ordered By: Bentley Lucero on 10-09-2022 Lymphocytes/100 WBC (Bld) 44.5 % . [facility] MCH Auto (RBC) [Entitic mass ]Ordered By: Bentley Lucero on 10-09-2022 MCH (RBC) [Entitic mass] 26.2 pg 24.7-34.3 [facility] MCHC Auto (RBC) [Mass/Vol]Or dered By: Bentley Lucero on 10-09-2022 MCHC (RBC) [Mass/Vol] 32.7 g/dL 32.0-35.0 [facility] MCV Auto (RBC) [Entitic vol] Ordered By: Bentley Lucero on 10-09-2022 MCV (RBC) [Entitic vol] 80.1 fL 80-100 [facility] Monocytes Auto (Bld) [#/Vol] Ordered By: Bentley Lucero on 10-09-2022 Monocytes (Bld) [#/Vol] 0.4 10*3/uL 0.0-0.8 [facility] Monocytes/100 WBC Auto (Bld) Ordered By: Bentley Lucero on 10-09-2022 Monocytes/100 WBC (Bld) 6.5 % . [facility] Neutrophils Auto (Bld) [#/Vo l]Ordered By: Bentley Lucero on 10-09-2022 Neutrophils (Bld) [#/Vol] 2.6 10*3/uL 1.8-7.7 [facility] Neutrophils/100 WBC Auto (Bl d)Ordered By: Bentley Lucero on 01-26-2023 Neutrophils/100 WBC (Bld) 46.9 % . [facility] No Panel InformationOrdered By: Bentley Lucero on 10-09-2022 25-Hydroxy Vitamin D Total 15.6 ng/mL 30-100 [facility] Comment on above: VITAMIN D STATUS 25( [place])VITAMIN D RANGE (ng/mL) Deficient <20 Insufficient 20 to <30Sufficient 30 to 100Reference: Joe MF,Briana NC, Brenotn VARGAS, et al. Evaluation,treatment, and prevention of vitamin D deficiency; an Endocrine Society clinical practice guideline. JCEM. 2010; 96(7):1911-30. Estimated GFR () > 60 mL/Min [facility] Comment on above: GFR estimated refere nce range: According to KDOQI guidelines, <60 ml/min/1.73m2 is sufficient to diagnose a patient with chronic kidney disease. Pharmacy Creatinine Clearance (Chem N/A [facility] Nucleated erythrocytes [Pres ence] in Blood by Automated countOrdered By: Bentley Lucero on 10-09-2022 Nucleated RBC Auto Ql (Bld) 0.2 /100{WBC} 0-0.5 [facility] Platelet mean volume Auto (B ld) [Entitic vol]Ordered By: Bentley Lucero on 10-09-2022 Platelet mean volume (Bld) [Entitic vol] 9.2 fL 6.3-10.7 [facility] Platelets Auto (Bld) [#/Vol] Ordered By: Bentley Lucero on 10-09-2022 Platelets (Bld) [#/Vol] 263 10*3/uL 150-450 [facility] Protein [Mass/volume] in Ser um or PlasmaOrdered By: Bentley Lucero on 10-09-2022 Protein [Mass/Vol] 6.9 g/dL 6.1-7.9 [facility] RBC Auto (Bld) [#/Vol]Ordere d By: Bentley Lucero on 10-09-2022 RBC (Bld) [#/Vol] 4.91 10*6/uL 3.60-5.00 [facility] Serum or plasma alanine bedoya otransferase measurement without P-5'-P (enzymatic activiOrdered By: Bentley Lucero on 10-09-2022 ALT No additional P-5'-P [Catalytic activity/Vol] 18 U/L 10-60 [facility] Serum or plasma albumin/glob ulin mass ratioOrdered By: Bentley Lucero on 10-09-2022 Albumin/Globulin [Mass ratio] 1.5 {ratio} [facility] Serum or plasma alkaline diaz sphatase measurement (enzymatic activity/volume)Ordered By: Bentley Lucero on 10-09-2022 ALP [Catalytic activity/Vol] 47 U/L 32-92 [facility] Serum or plasma anion gap de terminationOrdered By: Bentley Lucero on 10-09-2022 Anion gap [Moles/Vol] 11.7 mmol/L 6.0-15.0 [facility] Serum or plasma aspartate am inotransferase measurement (enzymatic activity/volume)Ordered By: Bentley uLcero on 10-09-2022 AST [Catalytic activity/Vol] 19 U/L 10-42 [facility] Serum or plasma calcium jose urement (mass/volume)Ordered By: Bentley Lucero on 10-09-2022 Calcium [Mass/Vol] 9.1 mg/dL 8.2-10.2 [facility] Serum or plasma chloride yobany surement (moles/volume)Ordered By: Bentley Lucero on 10-09-2022 Chloride [Moles/Vol] 106 mmol/L 95-114 [facility] Serum or plasma glucose jose urement (mass/volume)Ordered By: Bentley Lucero on 10-09-2022 Glucose [Mass/Vol] 90 mg/dL 70-100 [facility] Comment on above: ADA recommended refe rence rangeRandom Glucose Reference Range is dependent on time and content of last meal. Glucose of more than 200 mg/dL in a nonstressed, ambulatory subject supports the diagnosis of Diabetes Mellitus. Serum or plasma potassium me asurement (moles/volume)Ordered By: Bentley Lucero on 10-09-2022 Potassium [Moles/Vol] 4.3 mmol/L 3.5-5.1 [facility] Serum or plasma sodium measu rement (moles/volume)Ordered By: Bentley Lucero on 10-09-2022 Sodium [Moles/Vol] 137 mmol/L 136-146 [facility] Serum or plasma total biliru bin measurement (mass/volume)Ordered By: Bentley Lucero on 10-09-2022 Bilirubin [Mass/Vol] 0.6 mg/dL 0.3-1.2 [facility] Serum or plasma total carbon dioxide measurement (moles/volume)Ordered By: Bentley Lucero on 10-09-2022 CO2 [Moles/Vol] 23.6 mmol/L 22.0-30.0 [facility] Serum or plasma urea nitroge n measurement (mass/volume)Ordered By: Bentley Lucero on 10-09-2022 Urea nitrogen [Mass/Vol] 11 mg/dL 9-23 [facility] Vitamin D 25 Hydroxy Totalon 10-09-2022 Vitamin D 25 Hydroxy Total 15.6 ng/mL Low 30-100 [facility] Comment on above: Order Comment: Reaso n for Exam Iron deficiency Reason for Exam Vitamin D deficiency Result Comment: [place] MIN D STATUS 25([place])VITAMIN D RANGE (ng/mL) Deficient <20 Insufficient 20 to <30 Sufficient 30 to 100 Reference: Joe MF,Briana NC, Brenton VARGAS, et al. Evaluation,treatment, and prevention of vitamin D deficiency; an Endocrine Society clinical practice guideline. JCEM. 2010; 96(7):1911-30. PERFORMED BY: [facility] [address] [place] [address] PATHOLOGIST EXTRUSION DIE CORRECTOR PRICE ZUNIGA M.D. Performed By: #### C BC, CMP, [id number], FE and TIBC ####[id number] [place] [address] [facility] WBC Auto (Bld) [#/Vol]Ordere d By: Bentley Lucero on 10-09-2022 WBC (Bld) [#/Vol] 5.5 10*3/uL 3.8-11.6 [facility] XR LSPINE 2_3 VIEWSon 2022 XR LSPINE 2_3 VIEWS EXAMINATION: XR LSPI NE 2_3 VIEWS HISTORY: Pain ; low back pain for several weeks; burning with urination COMPARISON: CT abdomen pelvis 08/30/2012 FINDINGS: BONES: Slight increased density of superior endplate of L3 without appreciable loss of height. Osseous fusion of L3 and L4 posterior elements. DISC SPACES: Moderate marked narrowing L3-4. PARASPINOUS: Negative. No paraspinous abnormality is seen. OTHER: Negative. IMPRESSION: 1. Abdominal osseous fusion of the posterior elements of L3 and L4, suggesting the disc space narrowing at this level is also developmental and chronic. 2. Slight increased density of superior endplate of L3; angulation versus degenerative changes versus mild compression fracture. Consider MRI for further evaluation if clinically indicated. Electronically authenticated by: VANESSA JEREZ Date: 2022-10-08 12:48 Normal [facility] ED Note-Physicianon 09-06-20 ED Note-Physician Basic Information Time Seen: Kristopher Clemons DO 08/29/2022 17:30 Chief Complaint Pt has been having cough and congestion x 1-2 weeks. Was seen in ED last week and given cough meds, but not helping. Believes needs chest xr because she thinks it's bronchitis. History of Present Illness 32-year-old female reports to the emergency department with chief complaint of cough and congestion for 2 weeks now. She reports that she was seen in the emergency department last week, and was given cough medicines but is not helping. She states that she has had on and off fevers, but does not currently have a fever. Reports that the medication is not helping too much. She reports that she has been taking Tylenol and ibuprofen. Denies any chest pain, shortness of breath, nausea or vomiting. Denies any upper or other respiratory symptoms. She believes that she has bronchitis. Patient is deaf and an advisory software engineer is used throughout the encounter. Review of Systems A 10 point review of systems is negative except as noted above. Medical and Surgical History: Reviewed and noted Social history: Lives at home Family History: Reviewed. Tobacco: user Physical Exam Vitals & Measurements T: 37.1 ?C(Oral) HR: 74(Peripheral) RR: 18 BP: 143/96 SpO2: 99% HT: 165 cm WT: 86 kg BMI: 31.59 General: The patient appears well and in no apparent distress. Patient is resting comfortably in chair. afebrile Skin: Warm, dry, no pallor noted. Head: Normocephalic, atraumatic Neck: No JVD Eye: PERRLA, EOMI ENT: Moist mucus membranes. Pharynx pink moist no erythema or exudates. Bilateral TMs intact with no erythema or bulging. Cardiovascular: Regular rate normal peripheral perfusion. Radial pulses +2 bilaterally Respiratory: No respiratory distress no accessory muscle use no obvious audible wheezing. Lung sounds good auscultation Chest Wall: no deformity Musculoskeletal: normal ROM, no deformity, no swelling GI: No obvious distention Neurological: A&O moves all extremities equal strength and symmetry Psychiatric: Cooperative and appropriate Medical Decision Making 32-year-old female reports to the emergency department with chief complaint of cough that has been lingering for 2 weeks now. On physical examination of the patient, she is afebrile. Patient is deaf, so an advisory software engineer is used throughout the encounter. She denies any fevers, chills, nausea or vomiting. Denies any chest pain or shortness of breath. Physical exam reveals no acute findings and lung sounds are clear to auscultation. Patient is not hypoxic. Based on the patient's length of her symptoms, we did do a chest x-ray. X-ray revealed no infiltrate mass or other acute cardiopulmonary abnormality. Because of the patient's length of having the cough and heavy cough for up to 2 weeks now, I did diagnose her with a bronchitis, and we will treat with a steroid and a antibiotic for coverage. I discussed this with the patient. Patient was understanding. Follow-up with your primary care provider in 3 to 5 days. If symptoms worsen, do not improve, or new symptoms arise please report back to emergency department for further evaluation. The patient was understanding and agreeable to plan moving forward. Assessment/Plan Bronchitis (J40: Bronchitis, not specified as acute or chronic) Orders: azithromycin, 250 mg, Oral, As Directed, # 6 tab(s), Refills(s) 0 predniSONE, 50 mg = 1 tab(s), Oral, Daily, X 5 day(s), # 5 tab(s), Refills(s) 0 XR Chest 2 Views Disposition Plan Patient Discharge Condition Stable Discharge Disposition to home Discharge Prescription List Prescriptions azithromycin 250 mg Tab, 250 mg, Oral, As Directed predniSONE 50 mg Tab, 50 mg= 1 tab(s), Oral, Daily Follow-up With When Contact Information BENTLEY LUCERO In 3 days 09/01/2022 EST [address] [place] [address]- Business (1) Additional Instructions: Follow-up with your primary care provider in 3 to 5 days. If symptoms worsen, do not improve, or new symptoms arise please report back to emergency department for further evaluation. Patient Education Acute Bronchitis, Adult Attestation Patient seen and evaluated by the physician higher level teaching assistant. Attending physician was present in the emergency department and supervised care. This visit was performed by both the physician and an APC. I performed all aspects of the MDM as documented. This report was transcribed using voice recognition software. Every effort was made to ensure accuracy, however, inadvertently computerized cane weigher mistakes may be present. Appropriate healthcare PPE was used in evaluating this patient. The patient was placed in a mask. The healthcare provider was wearing mask, gloves, and utilizing proper hand hygiene. All equipment was properly cleansed. Problem List/Past Medical History Ongoing Smoker Historical Deaf mutism Medications Inpatient No active inpatient medications Home amoxicillin, Not taking azithromycin 250 mg Tab, 25 (more content not included)... Normal [facility] Comment on above: Result Comment: Elec tronically Signed By: Ron James PA-C\.br\Date and Time Signed: 08/29/22 18:33 EST\.br\Electronically Co-Signed By: Kristopher Clemons DO\.br\Date and Time Co-Signed: 09/06/22 07:00 EST Coding Summary.on 09-02-2022 Coding Summary. [id number] Gh 0bWw+PGhlYWQ+PA2BVDLsA 78laZRtpI4IO8iKZR2HFJQ CIXENTT9UTQ0inAB9GWhaH 2VybiAv QqnjeVEkDF42LRe8GAZ4fS rqABreuU8wwKMlM6r7XbQq OG99vX28PKyxIXFeJlG5Ir ZpbjsgbWFy P2ucCpQxjMVuWdh+PHRhYm xlIHdpZHRoPScxMDAlJyBz qMbqWD3xKg2wFAPfIBJtzQ xhcHNlOiBj p2ntTSKvJZzpCC7mrPpcN0 HkgUX4NYBcu8a2Cn85rJC+ GDDoAAI7bAfjUJgav455Dd Tpq5hoKGN8 zRKlNWgdLSI8V74im6H8FV HoHFEyPJF5zOV1rA2ivMhe qxsaE5UspDBeOlX8ZHX1lV EcqH2dfPhk boecgA9lGij+V57MMV2WYM HQRY3LDal9R8YmXftrfCA+ CT29DIVgTT08fFVrfFMcj5 nvzAq3ZbVj EJZiBBG0fPszDFzkx3WeAM LgU05sfSVvt1N5MIQcaTzb qHAwSkCttTQ2uM6oRTymzd med8favrhj Muzst1xmis33oD17K91qCK wlXFMbEQH5MNKvZNXqhCvt sz0ogB0tQq9+OVbdn4zuz4 vfkWn8EfFb XKQcvrLctFzrCOE0m4GjNb 85Z5KdtVkat2JdMwj8ob30 lFUdt9W5uVX1VMbnWDOfxQ 9mMVzbUwC6 CPGkKwSriF60xHXcEDccBd 9ygRxegUtzBC4oBGLmlqdm ASVbgD2kFBCpuMUoqYjjCA 4wNTBpbjtm g298DqYfEJS4YKHjyOTzJ3 FxoW6dXmTgWGMtTJSfF3Zj vNFlPOjyP522QZvrElV9HT RoetMuD8Vm GYPlxVlkJlB3s8V2Tu0Yc7 JtbgirFLE7NBjqHODuBuPq RgQvRjO9F4AhBqb4XOYyoD nmTK5rP3Yv PHDbnlrjdupkrIJ7YPWwGT EqtO51gLBvWOxqRf7cp0D6 t218HMDlQNAhjN13Qh2oxQ ogMTBwdCBU oK4waiuzk0juqduxEqByOG KpZDv8DAt5KDOlqSzkNbVr OVM2MkM9VTV5nECqkM3ajA kokmcugI3e Oyc+A31qkK9oVOZ3FUP0lf wmPNIlvaNwBT82QE86S5Ol PjwvdGFibGU+PGRpdiBzdH fsPY3rPvIf a1idf4JcJSbjU6GpHELnCI qdYuy1ZMMyXVY3bKQ1kW0g YDLeDMvmc2X4wOU4U6Bhgt Nnnr6kq7kj WODnJVkiO74cgPCdi2G4BT DsgFE0UBPosEbpUlZejW55 Oyc+IIOxwSwxp9FiDvjip1 vmi5rqyVs1 VeLhQHUavaXauOkkOSW5z1 NsEq59N51yLRilVJCcRHVs CTCoBRMloDsocf7xdI8wJv 8+PGNvbCB3 tPS8gU4rIOEiCkB5SKvuT5 25JxBnpMXdVlwkz7wsd9db dTu8KiWvGEIhfiJlcApmLR M3z5QzZa20 V49xAGeyAEYuEMQdSATtXN NksIkgkh4prD0wAa0+PC9j r4hlim20hZ39eLY+PHRkIH N3mUtrTEtg IEWubM5qPHbfOnK0POBrZu PecO02mZUeFLgkEv6ptHll kBdaEF5xSZSygrtvs387Zw Mbl1bfYDXb fMRaFOxbPBZ6H21qu2A4XN BsATKwJTT0vNJ4zN3syJry bjogbGVmdDsgdmVydGljYW tsHYnrG815 IHRvcDsnPlBhdGllbnQgTm FlRHc5F7JnDxp6WPZrmLmv JD9qlZTaFPtjNm5vbYrwmN utTF3rIBNn sfhyg836YpVnh6whNOYozR HnPFyiAAF3Q39fn2Q8JUWj RAQwJKD6tLY2sE9vmAkunr ogbGVmdDsg mgWzdCsyJWkmTRakV732TL RvcDsnPkJpcnRoIERhdGU6 ON40SR16sWDqn6K8eAI6J8 BhZGRpbmct xxctrRS2DWAlCFElwH58Iy 7miHgcBs3rCPTwBVV4HBKu vNJyN0FwqL1rHkUnLJJdJY KtH1DhtLUn EQwdG491ACsdHkT1BOHraq WiV7JkAGMbhXmpUgF6v3Z2 Ih8KA2Z1AM07BP22lNSnl2 F9xOH1E9Mb QFSskzhoqxuibJP8RXLcEW JgoW29Ql7ylPngVh5pEHAg DBG0RROdmOZmW2WkgX7vZj AjMDAwMDAw A0DhlERxYWgrY786MHvtQm X0FQMtcyRdH2IaRFSlhEqe UaQ6e9X1Im2WFTb4IY39HP 49fMKsv6B0 wTI9F7ObXBPnibvxhievfD Y5KWDbOOUujH13Ka0vhHpz Mv6lIJXuWLB1ABSnxTGlQ8 LnmX1uFmIv ACCgWDAxW1SynFOwQYhzI7 74MHsjOfH9ZBAfdaScI8Qh VDXcbCebOvO4w7M4Ha4RXH YeST58IMM9 mEK4NH98MT58C8WuVbrgnM FibGU+PHRhYmxlIHdpZHRo NZlwDDOqRjNrvJweAH9oHu 9yZGVyLWNv fAjpcHAeZxRpy4rnEPZdOI wcAV7wyHveV6HgfWB7REEy m1p9Ha53S38kE1UuuOQ+PG IrzUM8tQX1 lI3wEoXgWwI0TSalO611Xy PvtNSgWpxri9gwt0ksdOs8 TsM9MEHessAztPgcISN9i9 MqEb66V95l IHdpZHRoPSIxNSUiIHZhbG yhhn9seL3cEm3+PGNvbCB3 pQY2uR6gRcVmNfO3IEciA5 49InRvcCIv Bujny1qih0cjaWw4CzSdSO VahjEafCfkUUR4o1HaNj57 P9NbqDryj5FcQya0ne84pP Kgu5A4eZW5 Z6QiGFLbuxthoZQmdPjvVP 3mRUPywybaVWFftB8jYQUi I2l9JfGoMcM3HPobP3Cypv Z8DSBqfCMe BGtjHQW6Z88fz0A1DFEfEM RqFRR7lDR2eQ0djBbwjxks bGVmdDsgdmVydGljYWwtYW eoU609GUTm yBxdNLMfpJ2jEQNbnXEcsC yhVH9eBLZpxrpdEubLUSbo IEpBREEgTTwvdGQ+PHRkIH Z0lAicGAud ORNotH3pGJYvY1d6MnOvGt E2YOerG1OkRMJousxyCc15 zP2bNtArRqY0MEfpD2Dveu H3STGmcUUc DUoiXRY2N48zk0L7SJGrMZ PvHNZ0xWC9fV5flMobbvda bGVmdDsgdmVydGljYWwtYW ddI754OHRb dOelTnL9EqR5HhM1EBG0Z0 LpJjo2THEnmXfsHX0ypQJg KBteMj1glBqaePtrTP4rJE BpbjtwYWRk lA0qGOQglTSdpJgjLM0mGB Vjacejh754SvJlBTZ7RLIm nZCfH3GjfI7aGrZiKQUbDS DsN3ZadNOe MPekI285NMtgDcW0BFFipx ShR9JiCQWivFedZqT1t2T9 Cf1pZMEHYTJcqvjjoEW+PH NoBGK5nAef ZYubBMQlqO8jYGKoZ8p2Qj KaDqA1BSisN2CjGMCtwxgx Wp81fR6xYsWaXiO3MUmnZ8 XdruB0IQFh gFPtKYsqWLF8I78sw4H8FA RsCPZyVFF9fAV2pW0qgMne bjogbGVmdDsgdmVydGljYW llLXlmE713 IHRvcDsnPkZlbWFsZTwvdG Q+UHDqCMR9gGwwKEavDKKo vN4oJWTnT3a4IpZhGkI6ZL qhB7QgTLPx mbfzTv13dX6kKgQpEiQ6GO eeF5WfjcQ9PUOcaMFzBVze XVG0M59ol7U3HFRnCJDyRN C1oGM8lY4w bGlnbjogbGVmdDsgdmVydG pyDMeuODjyW164IPNpvJaf WbDxKMZqNZ4cmHvquJS+PC 36sp56W1Lr WesjSjx0RMQcGIU5bTK5nJ 3jYWVkKLtpp2D4mKH0Q3Ko ivNkun0dr3fkZZJoFDzmG3 1cyDXng1A2 XCOnfJK8KKQomDboByZvkA 93Oyc+LRUjmAcoa4WbFslm i2dry8gacSo6SgDvMMAoos FsaWduPSJ0 f7YdMe93N35bIUlvWTGvHS HdWIQxOVRvsDrjgp6okI8p Ii8+GIHnhLE3hFB5nP6qDi UfFcK6SIgn L504YkQamJEqAogro5zkd7 rvyYm2NiFpHDBvnsVcjXmf GOS4b0LhMq44F6LydHpno0 YeGxa4tt23 vGEyy5Q1bUS1Q6HsBWElng tvqEJtxScfLT0jKMKvxpzu VCDdmP6pEZXnS6c4OmDuCz L6MEmrG4Wk jwO6MROlnEZnAZWhwWMLrD 4csbwim8rapkzyNcVlQOKw LNr5JNy4VJVxeVkzIiPaFJ L0KpG7HDO8 hKKesS2oyRljcwncxK1qCn c+SIt7l6fygEXqZO4quXS9 MV65WS73cAXjz7F9uZS6L9 BhZGRpbmct omkhtOW3DROdNFRzpD60Hl 3nfLprWp8uJBQhYOS0QFUo oFYmO2FyuW5qMsFqNNIqWI HdH1PdaKYe XBlsS963DEraOwV4XFZyaf TkO4NbAHKvsSmvJfG7c0L6 Su1PCJ73ZK87UF77wWQvp4 E6uUM6T7Bc NNTbvqgsibuwyFD7GPKfUO MksE91Gv0jxExkJq8jMFHc VBR4ACCcbSZcR1HxxJ0uJr AjMDAwMDAw X7PpeUViKOsiH083ETqcOv U4HEEqblXlE2SxRASqjHqg WcU1g3N9Bi8IBz30TI16RZ 87fGDjy7M0 vAM3H5DkHMZhtoecuqslhT Y7CUNpVPJmgP66Ic7ehXta An5nDOJhNYC9RCRtdFOcW4 ZjwN3pQyPh ZWDtDRYcJ2MqaQHfGTyzU6 21FTmkQaU6MZYhbnKwI3Nf LKDbzRsiLoB6u3G9By5VBF eipkd8D7Uu PjwvdHI+WP59PMNtMG71oU NuxYQzy1jskYl0WzWjCATz UOV0kThtMCnyc0WlODCuZ1 0qwAJvt5N2 IGNv (more content not included)... Normal [facility] Coding Summary. [id number] Gh 0bWw+PGhlYWQ+DR1NBTHqX 93qpVCvnG2TI8eZHG3QKPW HRXSCFR6CRJ9muML3APgpU 2VybiAv IkydoCTcHB61TXk5NGA3wE qjRSmgrM9jdURcM4k9CdPy XH33jV79MDbrGUGfBkE1Qm ZpbjsgbWFy L9qfXwOtvJDiMmq+PHRhYm xlIHdpZHRoPScxMDAlJyBz cQkmHE9jEn6dNWGgQDMaqG xhcHNlOiBj q3pfVYGrPQtuAJ5zwJfaN7 KynRK8OCSau1c1Hu31dVT+ VABvDQF2yJkzHVodm339Tf Kci1nxKBN5 lEIxGJrzXMY4V71kh5Q5PQ KnZCAjACV7jGC3fT8fgChx dpxpJ2QokIWbDnR4LXP9cJ FklA5bnLoc raqlcC4aHgu+J14FCV3PPP VDEX3IFcu6N6EhGurbgSM+ KA56DTNnYS79pMPxjPGui9 mrhMg0NqFk EHHuKZS5uQwhSBtvl4NcLU VmP84avYIdv7R1KORfjEip qXNkMoOcqDA1zV6tDWlsts odc4talowj Bztmh0dtpt47nT86X39uSV mlCRUyNUI6DJTlHMWtsQva qy2deE1iPg4+INksr3ncq2 uovNi9ZeIf OFAkxzEysPiuSDC7c6CkNi 66J7ZhmOldg8LrQss3ow71 oYNkc9V9eBB4OOmgRNKvkC 4zKBnsOjZ4 RKIgXiNnuP13sBAiQZpxWu 7pqVyckXxeFA4cECJfmqrn LDZqoN1rYHSmnBOciUvxWS 4wNTBpbjtm f292ElQxWCF9AWOciNMoC5 NmvB3gVmTeVGSyAXVkU1Sh lRYdBGeyM153DTzqVtR8MH XtnfSqW1Ru TAUdjAfjWwB8n0F1Tj6Be8 AxqlibQSL6ZIikKQGxDdSg PjLeAdT1W1HoFlz0VVDkrX lfOC3vE7Pw XVQmoeunthfznVX6YLLaLP NyeM40vBOaEWfcLm2xm4O8 f700NPVxAMWenS31Hh2tfF ogMTBwdCBU nC8sbmorg3ggdjenEaGjJJ SaMOq2YCi3CWIbwIhbKfOc RFT2VwP0KNO0cFUpcP3qoL svzwgibW7o Oyc+A40yiZ4nWJY3RDC2lc mpKEVygiQeZZ63SD97F7Dq PjwvdGFibGU+PGRpdiBzdH giFD8xKgDj q8nbb3QrCZzdR4PvLIIqCQ ivOci1HSKzXEN5bBA9gE6u ZBUkQIyee0A2xNX1D7Zezl Nvow1ut4xa QVUpUIfxK54idTJcd2K1HQ PdwRI5HNKjwWwlEwOezF29 Oyc+UMSvhYgwy3FkPvzyy2 oel2yrpBl5 QsQyNKEciyWxjOzkTVO1i5 GkPl85C87iOKgmJBTzBCZs NJErDWHgoKijwn2ctF5fAg 8+PGNvbCB3 gIP5oV4gAYTaMpP3IXhqX5 02LhUmlTPdSfxpd9ahl3wz xYt2YwBwEDDpipYboItkEP S6u4AoBj59 D22mZSarIZPbQDYuPAPhAG CorBewha2ioL8dVm9+PC9j r6kzxr63oL00bCN+PHRkIH Z5qFyaTXdx TWHxxO0tIJjlDfO9ZJNdRj CpbB14gAKgOUrbCb6efIfb zIavGJ5mNHDhzsoeq242Nk Rdm3hvQRRi cDYvMBpdDQJ0X22dh6K9GJ RkOFQeALR6kXK5xM8qePbl bjogbGVmdDsgdmVydGljYW hbIAftD591 IHRvcDsnPlBhdGllbnQgTm MmDFf7P5QtAwn5KWAyoSto NG2tuIQcCCbrXx6xuBclkJ jnQU4pTGKh fpfnq072AaDga1baMWOcfW DpYRyvSBW2W39wf1Q7GZIu LKTiQAA3rWB9eO9tqPueip ogbGVmdDsg hpDleEyrBAxbSYttM334QP RvcDsnPkJpcnRoIERhdGU6 FX62VR92qBVmz2N7zPT7P9 BhZGRpbmct vpfjtPO3NWPnRFMotD40Zo 3tjQpgRx3bVMXoHKG5TZJm qAEzC1HiqE9nZiZqEEOaHM ZdP9EixCGy UBnsF002LYsjXdP6NFGgyd WpO5FmXUOapMvnBnI0m2X0 No6IT6B3GF26YF99fXEmh9 U4tGL9R6Dr RWPvnxrrdvmdsMO4GXRlEJ VelL81Ge1daTpoHe2mBCGy VNZ0SRLvhYBhA1XdkM3pVg AjMDAwMDAw G0NbeBHtYAqxV612CNslVy G2HKJstpNdP6MjHQFppAwu TcH7x4W7Xt3INKc3FY81ZU 08fAJkn6Y1 cGZ6P0InOTXqslpclbkddN G2KSHsLYBisS02Hx6akGxr Jp4zLQHyWUL4HKDepDGcT6 YctZ7cTjOz QHIsDSPtC8EouYXzXBegA7 70CLklWrQ2XTIfxqUpL3Pw IODxrFbbReD7c4L9Cs4MOJ EmCL25XSK9 rTV3MC38ZM91V4LkZnippH FibGU+PHRhYmxlIHdpZHRo IQkyHQXuOkNqrOmjUH6kJu 9yZGVyLWNv uKcdcGWaAbLcn8plGDIoUB tcDQ3biCopV2HtiQG2DGRm r8p5En70X87rA7FdoVA+PG BfzEH8nHP4 pN1pTaHtUuH6VEjzP855Dg DxaFIfLxywk3csd1feiFx2 JxF6JCWwckHdsQheCXZ9m6 XnTv55K32t IHdpZHRoPSIxNSUiIHZhbG rurd4wrK7sMi6+PGNvbCB3 xJD9pA9rQoMgHfY5DKbuQ8 49InRvcCIv Ohxft7bol8lqiQj2AlVgLV AzuxFbrIhhUSJ1z8PfUx10 B8UmbWhkz7ItZai9mz55bV Myc9N3lAL5 G1MoNXDjeukfaIVfzFsiHL 2xAEMkbumiNXNwgN8vXVHh E6g9CiQlIhB6EJtpR9Jatx T2WNOsmXYo EKnaBMM7B40fo0L5AOKlWE NgCFU9yVP0rV4grOnlkwjn bGVmdDsgdmVydGljYWwtYW rwX330HCFd cUbjXVYmmW8sQSEnjDVxmU qwIX5vMAKgqvqiEkqZDXmd IEpBREEgTTwvdGQ+PHRkIH Z2lVroZTcm ESBswZ6sJSStQ4q6QkLoSk Y9ZGylS7AqERWfulpzGl58 tX5yEvZzIzF2GMsdY1Evmy M3ELYqsIIk PMliSIR1N93go2D9YZQtUG YeYTD5kEG2yW5lzQwotnjl bGVmdDsgdmVydGljYWwtYW xhW899CFAc jAwrWzK1DjF4YgM6XYA3W3 OxAoz1RLFloOpnRI7imGZs CIfhUk3umDzqoMjhKD3iVK BpbjtwYWRk oB7oJCChuMNpnHibNI0eSD Otbvgmm367YlQlGIX5DCLh qBHkU4LvqV2qAwGiIARzWS DzA6JrkZXw WIgwZ909VNpnXhU1HWAnko JiR9WsFPRigAeeHiU8r6A1 Vx8xXXYDXFUtzqfsbDP+PH KcNUR0fOla MSfpUMUslL2fRINsU3y2Fe XwSmU5LOfzB1OmEJVnwqiu Mh55dE6mEeOyFzU9WNifF9 ItmiL5XFBr cGGoEZdaPME5U05zg4G5KU AvOOHfTRX8gIU9tY3trCuu bjogbGVmdDsgdmVydGljYW luOIdtH646 IHRvcDsnPkZlbWFsZTwvdG Q+OFFgBXB8aVaeDMrpUPPi cS5nROLhA8u4BeSeSlT3WD jmR9HaYPSf yfvgVc37wA8bFhMnDzI1BX axA2OiftS9AJPreORvSQan IAA3K37dy1O8XLPqWLYxLQ U1sVX0hA1l bGlnbjogbGVmdDsgdmVydG bmQDbqKFgeK002DYFxbPbu LjQeURFhLI6xjRimzNP+PC 14ox80W6Ic LxwlGmq9GZRoFIL2zYT9gM 0wFJKpUFigo2T1iVP2V3Ub nbWllk4ok2psGBNtEVbyC8 0zsTQqp6N4 FVAwsZK2EVXjvWhuIlOohL 93Oyc+XKRvvDdwa6GmGjlt m9biz8scfAr5PcNiVMVopu FsaWduPSJ0 o2TlPt51K05gCUmyHBFcPZ RuEEOwOMXbvIirns1leX5h Ii8+XNHxmGM9kOI9lQ9wEj ZyCoZ6WNxg G216GsCndMCeZqhfv7fvk1 idnVa5RqPcYNVtizUyjQkh ZZL1f5FcJf90P4LcnQtct3 ZuZyk8td22 mQAyc2L7uBM6K3CsRYIsro kucJXlcFdqBT6wEIPgdvxl VRBjdR5gGUDlM9e4FxWaWm O8EKfwL6Fc wbS9RGKegJLrBKCqmGKMiA 0zjhgjk7daytjoWrJsHLTp TTv6WJk4KPQjvYhdTvIeAN I2AlU2STD2 gJOvaO6weBojppwtxO4wSm c+PIe2w2pviOZzZY4rwFQ5 NK94LP15tQDrv0L5pPG7G8 BhZGRpbmct grceaBI6TNBoISAvhQ79Un 7csCcdRq3iTXAxFSH1LEHm iINnD5ImpK4dRtBwXAHsPN LvX5AavSQk AWtyH441VNknFrQ7ECAnxs VsI9BgMPAhbVxeRpL1x7U1 Li6LHT62DR71LJ27uXKyl7 V1vVR5X9Of ZQRvmjkvyjsgsXE2WHFkFW YenK93Ol0tiLtmDo8nXHTn PVT1HEOkvJIuC4FhjE6yPj AjMDAwMDAw S2KedETrCNbxA520LAsyMw U8RWBibfKmB6RnGUVkvSxx DuM0o5T3Cu6ZTu01TC27HN 68bKNga4H7 pIZ8L1SjCJEtmhqngqxfyN F9EQVkDCGfjT03Tb4uaXvo Nw4sUDDhBER4CHJviWQoU4 PjxW9lGoVj BANbMNGfS9NgiAHlWSeyI5 50EVbfKlH1JPXjfoOcW5Gx CVAcfBemJqK9r4S3Xq1RUY kqslg7L8Bm PjwvdHI+NS84BTDgFM87tT NcdETiu2jzsMe8ReWzRROq UEM1sJfdRIggg0FwNUQqS6 4niFKcu0A8 IGNv (more content not included)... Normal [facility] Consent for Treatmenton 08-14 Consent for Treatment [id number] Normal [facility] Discharge Instructionson Discharge Instructions [id number] Normal [facility] ED Clinical Summaryon 2021 ED Clinical Summary [place] [id number] ED Clinical Summary Person Information Name: LEENA INTERIANO Edith/[facility] Age: 32 Years : 1990 Sex: Female Language: Sign Language PCP: BENTLEY LUCERO CNP Marital Status: Phone: [phone] Visit Id: Visit Reason: Sinus Pain/Congestion; Cough; BAD COUGH/DIZZY SPELLS Speciality: Acuity: 4 Enc Type: Emergency Med Service: Emergency Arrival: 08/29/2022 17:23:21 Discharge: 08/29/2022 18:28:40 LOS: 000 01:05 Checkin: 08/29/2022 17:23:21 Checkout: 08/29/2022 18:28:40 Dispo Type: Home (Routine DC) EVENTS: Event Name Event Status Request Date/Time Start Date/Time Complete Date/Time Arrive Complete 08/29/2022 17:23:21 08/29/2022 17:23:21 08/29/2022 17:23:21 Document Home Meds Request 08/29/2022 17:23:21 Triage Complete 08/29/2022 17:23:21 08/29/2022 17:39:21 08/29/2022 17:39:21 Bed Assign Complete 08/29/2022 17:28:27 08/29/2022 17:28:27 08/29/2022 17:28:27 Dr Exam Complete 08/29/2022 17:28:27 08/29/2022 17:30:53 08/29/2022 17:30:53 RN Exam Complete 08/29/2022 17:28:27 08/29/2022 18:26:27 08/29/2022 18:26:27 Registration Complete 08/29/2022 17:30:53 08/29/2022 18:00:38 08/29/2022 18:00:38 Dr Exam Complete 08/29/2022 17:33:45 08/29/2022 17:33:45 08/29/2022 17:33:45 X-Ray Complete 08/29/2022 17:41:39 08/29/2022 18:01:42 08/29/2022 18:16:18 Reg Complete Request 08/29/2022 18:00:38 Reg Bed Request Complete 08/29/2022 18:00:38 08/29/2022 18:00:38 08/29/2022 18:00:38 Wet Read Complete 08/29/2022 18:16:18 08/29/2022 18:17:00 08/29/2022 18:17:00 Discharge Complete 08/29/2022 18:22:22 08/29/2022 18:32:51 08/29/2022 18:32:51 Transfer Complete 08/29/2022 18:32:51 08/29/2022 18:32:51 08/29/2022 18:32:51 ADDRESS: [address] [place] [id number] PHYS DOC NOTES: MEDICAL INFORMATION: Prescriptions Given: New Medications Printed Prescriptions predniSONE (predniSONE 50 mg Tab) 1 Tablets By Mouth every day for 5 Days. Refills: 0. Medications to Continue Taking That Have Changed Printed Prescriptions START: azithromycin (azithromycin 250 mg Tab) 250 Milligram By Mouth As Directed. Refills: 0. Other Medications START: azithromycin (Zithromax TRI-EUGENIA 500 mg oral tablet) 1 Tablets By Mouth every day. Refills: 0. Medications to Continue with No Changes Other Medications amoxicillin cetirizine (cetirizine 10 mg Tab) 1 Tablets By Mouth every day. Refills: 0. cyclobenzaprine (cyclobenzaprine 10 mg Tab) 1 Tablets By Mouth 3 times a day as needed Muscle pain. Refills: 0. fluticasone nasal (Flonase 0.05 mg/inh nasal spray) 1 Sprays Nasal Inhalation 2 times a day. each nostril. Refills: 0. ibuprofen naproxen (naproxen 500 mg Tab) 1 Tablets By Mouth 2 times a day as needed for pain. Refills: 0. ondansetron (Zofran ODT 4 mg Tab) 1 Tablets By Mouth every 6 hours as needed Nausea/Vomiting. Refills: 0. pantoprazole (Protonix 40 mg Tab-EC) 1 Tablets By Mouth every day. Refills: 0. PATIENT EDUCATION INFORMATION: Instructions: Acute Bronchitis, Adult Follow up: With: Address: When: BENTLEY LUCERO [address] [place] [id number] [facility] ([facility]ention In 3 days 09/01/2022 Comments: Follow-up with your primary care provider in 3 to 5 days. If symptoms worsen, do not improve, or new symptoms arise please report back to emergency department for further evaluation. DIAGNOSIS: Bronchitis Normal [facility] ED Patient Education Noteon 08-29-2022 ED Patient Education Note Pulmonary Medicine Acute Bronchitis, Adult Acute bronchitis is sudden (acute) swelling of the air tubes (bronchi) in the lungs. Acute bronchitis causes these tubes to fill with mucus, which can make it hard to breathe. It can also cause coughing or wheezing. In adults, acute bronchitis usually goes away within 2 weeks. A cough caused by bronchitis may last up to 3 weeks. Smoking, allergies, and asthma can make the condition worse. Repeated episodes of bronchitis may cause further lung problems, such as chronic obstructive pulmonary disease (COPD). What are the causes? This condition can be caused by germs and by substances that irritate the lungs, including: ? Cold and flu viruses. This condition is most often caused by the same virus that causes a cold. ? Bacteria. ? Exposure to tobacco smoke, dust, fumes, and air pollution. What increases the risk? This condition is more likely to develop in people who: ? Have close contact with someone with acute bronchitis. ? Are exposed to lung irritants, such as tobacco smoke, dust, fumes, and vapors. ? Have a weak immune system. ? Have a respiratory condition such as asthma. What are the signs or symptoms? Symptoms of this condition include: ? A cough. ? Coughing up clear, yellow, or green mucus. ? Wheezing. ? Chest congestion. ? Shortness of breath. ? A fever. ? Body aches. ? Chills. ? A sore throat. How is this diagnosed? This condition is usually diagnosed with a physical exam. During the exam, your health care provider may order tests, such as chest X-rays, to rule out other conditions. He or she may also: ? Test a sample of your mucus for bacterial infection. ? Check the level of oxygen in your blood. This is done to check for pneumonia. ? Do a chest X-ray or lung function testing to rule out pneumonia and other conditions. ? Perform blood tests. Your health care provider will also ask about your symptoms and medical history. How is this treated? Most cases of acute bronchitis clear up over time without treatment. Your health care provider may recommend: ? Drinking more fluids. Drinking more makes your mucus thinner, which may make it easier to breathe. ? Taking a medicine for a fever or cough. ? Taking an antibiotic medicine. ? Using an inhaler to help improve shortness of breath and to control a cough. ? Using a cool mist vaporizer or humidifier to make it easier to breathe. Follow these instructions at home: Medicines ? Take ivor-evq-xuttrzf and prescription medicines only as told by your health care provider. ? If you were prescribed an antibiotic, take it as told by your health care provider. Do not stop taking the antibiotic even if you start to feel better. General instructions ? Get plenty of rest. ? Drink enough fluids to keep your urine pale yellow. ? Avoid smoking and secondhand smoke. Exposure to cigarette smoke or irritating chemicals will make bronchitis worse. If you smoke and you need help quitting, ask your health care provider. Quitting smoking will help your lungs heal faster. ? Use an inhaler, cool mist vaporizer, or humidifier as told by your health care provider. ? Keep all follow-up visits as told by your health care provider. This is important. How is this prevented? To lower your risk of getting this condition again: ? Wash your hands often with soap and water. If soap and water are not available, use hand machine pecan gatherer. ? Avoid contact with people who have cold symptoms. ? Try not to touch your hands to your mouth, nose, or eyes. ? Make sure to get the flu shot every year. Contact a health care provider if: ? Your symptoms do not improve in 2 weeks of treatment. Get help right away if: ? You cough up blood. ? You have chest pain. ? You have severe shortness of breath. ? You become dehydrated. ? You faint or keep feeling like you are going to faint. ? You keep vomiting. ? You have a severe headache. ? Your fever or chills gets worse. This information is not intended to replace advice given to you by your health care provider. Make sure you discuss any questions you have with your health care provider. Document Released: 10/08/2005 Document Revised: 07/14/2019 Document Reviewed: 02/18/2017 [employer] Patient Education ? 2019 [employer]. Normal [facility] ED Patient Summaryon 022 ED Patient Summary [address] [address] Patient Discharge Instructions Person Information Name: LEENA INTERIANO Age: 32 Years Arrival Date: 08/29/2022 17:23:21 Discharge Diagnosis: Bronchitis Primary Care Physician: BENTLEY LUCERO CNP Provider Information Primary Provider: Kristopher Clemons DO [facility] Practitioner:None The exam and treatment you received in the Emergency Department were for an urgent problem and are not intended as complete care. It is important that you follow up with a doctor, nurse practitioner, or physician?s higher level teaching assistant for ongoing care. If your symptoms become worse or you do not improve as expected and you are unable to reach your usual health care provider, you should return to the Emergency Department. We are available 24 hours a day. LEENA INTERIANO has been given the following list of patient education materials, prescriptions and follow-up instructions: Follow-up Instructions: With: Address: When: BENTLEY LUCERO [address] [place] [address] Business (1) In 3 days 09/01/2022 Comments: Follow-up with your primary care provider in 3 to 5 days. If symptoms worsen, do not improve, or new symptoms arise please report back to emergency department for further evaluation. In the event that this physician does not participate in your insurance network, please consult with your insurance company to find a nearby participating provider. Patient Education Materials: Acute Bronchitis, Adult A MESSAGE TO ALL PATIENTS REGARDING OPIOIDS PRESCRIPTION OPIOIDS: WHAT YOU NEED TO KNOW Prescription opioids can be used to help relieve zvgbhpqw-lr-mtauhs pain and are often prescribed following a surgery or injury, or for certain health conditions. These medications can be an important part of the treatment but also come with serious risks. It is important to work with your healthcare provider to make sure you are getting the safest, most effective care. WHAT ARE THE RISKS AND SIDE EFFECTS OF OPIOID USE? Prescription opioids carry serious risks of addiction and overdose, especially with prolonged use. An opioid overdose, often marked by slowed breathing, can cause sudden . The use of prescription opioids can have a number of side effects as well, even when taken as directed: ? Tolerance?meaning you might need to take more of the medication for the same pain relief ? Physical dependence?meaning you have symptoms of withdrawal when a medication is stopped ? Increased sensitivity to pain ? Constipation ? Nausea, vomiting, and dry mouth ? Sleepiness and dizziness ? Confusion ? Depression ? Low levels of testosterone that can result in lower sex drive, energy, and strength ? Itching and sweating RISKS ARE GREATER WITH: ? History of drug misuse, substance use disorder, or overdose ? Mental health conditions (such as depression or anxiety) ? Sleep apnea ? Older age (65 years and older) ? Avoid alcohol while taking prescription opioids. Also, unless specifically advised by your health care provider, medications to avoid include: ? Benzodiazepines (such as Xanax or Valium) ? Muscle relaxants (such as Soma or Flexeril) ? Hypnotics (such as Ambien or Lunesta) ? Other prescription opioids KNOW YOUR OPTIONS Talk to your health care provider about ways to manage your pain that don?t involve prescription opioids. Some of these options may actually work better and have fewer risks and side effects. Options may include: ? Pain relievers such as acetaminophen, ibuprofen, and naproxen ? Some medication that are also used for depression or seizures ? Physical therapy and exercise ? Cognitive behavioral therapy, a psychological, goal-directed approach, in which patients learn how to modify physical, behavioral, and emotional triggers of pain and stress. IF YOU ARE PRESCRIBED OPIOIDS FOR PAIN: ? Never take opioids in greater amounts or more often than prescribed. ? Follow up with your primary health care provider. o Work together to create a plan on how to manage your pain. o Talk about ways to help manage your pain that don?t involve prescription opioids. o Talk about any and all concerns and side effects. ? Help prevent misuse and abuse o Never sell or share prescription opioids. o Never use another person?s prescription opioids. ? Store prescription opioids in a secure place and out of reach of others (this may include visitors, children, friends, and family). ? Safely dispose of unused prescription opioids: Find your community drug take-back program or your pharmacy mail-back program, or flush them down the toilet, following guidance from the Food and Drug Administration (www.fda.gov/Drugs/Res ourcesForYou). ? Visit www.cdc.gov/drugoverdo se to learn about the risks of opioids abuse and overdose. ? If you believe you may be (more content not included)... Normal [facility] XR Chest 2 Viewson XR Chest 2 Views Exam Date/Time: 08/29/2022 18:16 EST Reason for Exam: Cough Report IMPRESSION: There are no acute cardiopulmonary changes. CLINICAL HISTORY: Cough COMPARISON: Chest x-ray from 02/16/2022 FINDINGS: The cardiomediastinal silhouette is unremarkable. The lungs are free of infiltrates effusions or consolidations. The bones and soft tissues are within normal limits. FINAL REPORT Dictated: 08/29/2022 6:19 pm Vasiliy Rosado MD, V. Signed (Electronic Signature): 08/29/2022 6:19 pm Signed by: Vasiliy Rosado MD, V. Transcribed by: MARÍA ELENA Technologist: [facility] Normal [facility] Covid-19 PCR (CVDTBH)on SARS-CoV-2 (COVID-19) RNA PARI+probe Ql (Unsp spec) Not detected Normal NOT DETECTED The [facility] Comment on above: Result Comment: When diagnostic testing is negative, the possibility of a false negative should be considered in the context of a patient's recent exposures and the presence of clinical signs and symptoms consistent with SARS-CoV-2. This test is not yet approved or cleared by the [place] FDA. When there are no FDA-approved or cleared tests available, and other criteria are met, FDA can make tests available under an emergency access mechanism called an Emergency Use Authorization (EUA). The EUA for this test is supported by the [place] Diver of Health and Human Service's declaration that circumstances exist to justify the emergency use of in vitro diagnostics for the detection and/or diagnosis of the virus that causes COVID-19. This EUA will remain in effect for the duration of the COVID-19 declaration justifying emergency of IVDs, unless it is terminated or revoked by the FDA (after which the test may no longer be used). Performed By: #### C VDTB #### [facility] [address] [place] [address] Dr. Samm Hurtado ER URINE PROFILEon 2 Bilirubin Ql (U) Negative Normal NEGATIVE The [facility] Comment on above: Performed By: #### U MICRO, PREGU, ERUR #### [facility] [address] [place] [address] Dr. Samm Hurtado Clarity (U) CLEAR Normal CLEAR [facility] Comment on above: Performed By: #### U MICRO, PREGU, ERUR #### [facility] [address] [place] [address] Dr. Samm Hurtado Color (U) YELLOW Normal YELLOW The [facility] Comment on above: Performed By: #### U MICRO, PREGU, ERUR #### [facility] [address] [place] [address] Dr. Samm OVALLE A micrscopic examination will be performed if indicated. Normal [facility] Comment on above: Performed By: #### U MICRO, PREGU, ERUR #### [facility] [address] [place] [address] Dr. Samm Hurtado Glucose Ql (U) Negative Normal NEGATIVE The [facility] Comment on above: Performed By: #### U MICRO, PREGU, ERUR #### [facility] [address] [place] [address] Dr. Samm Hurtado Hemoglobin Ql (U) LARGE Abnormal NEGATIVE The [facility] Comment on above: Performed By: #### U MICRO, PREGU, ERUR #### [facility] [address] [place] [address] Dr. Yilan Hurtado Ketones Ql (U) 15 mg/dl Abnormal NEGATIVE [facility] Comment on above: Performed By: #### U MICRO, PREGU, ERUR #### [facility] [address] [place] [address] Dr. Samm Hurtado LEUKOCYTES Negative Normal NEGATIVE [facility] Comment on above: Performed By: #### U MICRO, PREGU, ERUR #### [facility] [address] [place] [address] Dr. Samm Hurtado Nitrite Ql (U) Negative Normal NEGATIVE [facility] Comment on above: Performed By: #### U MICRO, PREGU, ERUR #### [facility] [address] [place] [address] Dr. Samm Hurtado pH (U) 5.5 [pH] Normal 5-9 [facility] Comment on above: Performed By: #### U MICRO, PREGU, ERUR #### [facility] [address] [place] [address] Dr. Samm Hurtado SPEC GRAVITY >=1.030 Abnormal 1.005-<=1.02 5 [facility] Comment on above: Performed By: #### U MICRO, PREGU, ERUR #### [facility] [address] [place] [address] Dr. Samm Hurtado UA PROTEIN Negative Normal NEGATIVE/ TRACE [facility] Comment on above: Performed By: #### U MICRO, PREGU, ERUR #### [facility] [address] [place] [address] Dr. Samm Hurtado UR MICRO IND INDICATED Normal [facility] Comment on above: Performed By: #### U MICRO, PREGU, ERUR #### [facility] [address] [place] [address] Dr. Samm Hurtado Urobilinogen Qn (U) 0.2 {Edwin'U}/dL Normal 0.2 - 1. 0 [facility] Comment on above: Performed By: #### U MICRO, PREGU, ERUR #### [facility] [address] [place] [address] Dr. Samm Hurtado INFLUENZA A AND B AGon 08-20 INFLUANEGH SEE BELOW Normal The [facility] Comment on above: Result Comment: Nega tive for Flu A protein angiten. Infection due to Flu A cannot be ruled out. Flu A angiten in the sample may be below the detection limit of the test. Performed By: #### I NFLUAB #### [facility] [address] [place] [address] Dr. Samm Hurtado INFLUBNEGH SEE BELOW Normal [facility] Comment on above: Result Comment: Nega tive for Flu B protein antigen. Infection due to Flu B cannot be ruled out. Flu B antigen in the sample may be below the detection limit of the test. Performed By: #### I NFLUAB #### [facility] [address] [place] [address] [address] Samm Hurtado INFLUENZA A AG Negative Normal NEGATIVE SEE COMMENT [facility] Comment on above: Performed By: #### I NFLUAB #### [facility] [address] [place] [address] Dr. Samm Hurtado INFLUENZA B AG Negative Normal NEGATIVE SEE COMMENT The [facility] Comment on above: Performed By: #### I NFLUAB #### [facility] [address] [place] [address] [address] Samm Hurtado INTERNAL CONTROLS Within Normal Limits Normal Wi thin Normal Limits The [facility] Comment on above: Performed By: #### I NFLUAB #### [facility] [address] [place] [address] Dr. Samm Hurtado URon 08-20-2022 , QUAL Negative Normal NEGATIVE The [facility] Comment on above: Performed By: #### U MICRO, PREGU, ERUR #### [facility] [address] [place] [address] [address] Samm Hurtado URINE MICROSCOPIC ONLYon BACTERIA TRACE Abnormal NONE SEEN The [facility] Comment on above: Performed By: #### U MICRO, PREGU, ERUR ####[facility] [id number] [place] [address]Dr. Samm Hurtado Bacteria identified Cx Nom (U) NOT INDICATED Normal [facility] Comment on above: Performed By: #### U MICRO, PREGU, ERUR ####[facility] [id number] [place] [address]Dr. Samm Hurtado CAST NONE SEEN Normal NONE SEEN The [facility] Comment on above: Performed By: #### U MICRO, PREGU, ERUR ####[facility] [id number] [place] [id number]. Samm Hurtdao Crystals LM Nom (Urine sed) NONE SEEN Normal NONE SEEN The [facility] Comment on above: Performed By: #### U MICRO, PREGU, ERUR ####[facility] [id number] [place] [address]Dr. Samm Hurtado Epithelial cells LM Ql (Urine sed) RARE Normal NONE SEEN /RARE [facility] Comment on above: Performed By: #### U MICRO, PREGU, ERUR ####[facility] [id number] [place] [address]Dr. Samm Hurtado MUCOUS NONE SEEN Normal NONE SEEN The [facility] Comment on above: Performed By: #### U MICRO, PREGU, ERUR ####[facility] [id number] [place] [address]Dr. Samm Hurtado RBC 5-10 Abnormal 0-2 [facility] Comment on above: Performed By: #### U MICRO, PREGU, ERUR ####[facility] [id number] [place] [address]Dr. Samm Hurtado WBC NONE SEEN Normal NONE SEEN The [facility] Comment on above: Performed By: #### U MICRO, PREGU, ERUR ####[facility] [id number] [place] [address]Dr. Samm Hurtado Coding Summary.on 06-24-2022 Coding Summary. CD:[id number] Gh 0bWw+PGhlYWQ+XW3VWNYwF 28hvPWndR5CP4jXQB0XQUF CBANPGK3ATX0xpVC8FZxgW 2VybiAv JrmlpGLuYK61UYm5BMX9tY ogPIerxB5asUXdC9v7IhFh JM94zE11BXvxJXIaAlM7Ey ZpbjsgbWFy O9teEnIhnZGvWgi+PHRhYm xlIHdpZHRoPScxMDAlJyBz zPzfAL7pXy3aLZGmWPOnsP xhcHNlOiBj j4nqJGPkGOcrJF0xgGtuS3 DknCI8PSRnd7u4Lu37jJV+ ZQOcMAJ2yXorDDpzu608Oj Gpl0nxEVW1 eCDqENqzIGS8R34sa5F9NA HzDJRpPWX5kDF5hW5qkQav ycvdJ9CdyJYaOrK2XWF3uE NhqJ8mlMtc uqrovJ3uIen+S01PRL7FEL UAYA1YWcr1L4CgQivpnXU+ BN14DFHeHI48hYMyeBNum2 wozCc5ZiEc LLLnOPA2dAwdDWwng4VnLJ DiS55ipQNsn7Y4JMIfnYih uAFoEmCqrTN7sP3zKLhqvh bud8esqnro Nznxh6tbjy49oF10Q58lDZ qmHQJmAVT5NWKbDZEudQgp zn7uwX8lHn0+WAesw5ohr2 zqeLu6AdHn ZRGuolOrnYfrWRR0f4KiQq 79D5ZhmBvep9JwTjf2dz55 mCQem3T7vLM5DBixMJKnwI 4bGWjyLcJ0 ORTkYmDwzZ89wLOrRVwtWf 3psMwxcHszYF1uXPEqxzxi GPVlbK6cRHTznIHinDdgIP 4wNTBpbjtm u313FvIkVVI6HMGzwQRdK6 XwcJ3zNeXuZRLdOMXxL1Lw eTQyHElzK334WNxmOeI9VO SprcToM3Tc NFQwzUamXgD8z8V5Yg0Cj1 BmjjdvUTV6EOfiFBYeIzOt XkSvLsH0Q7GsMgy0UMQqgZ qbPF9oX4Kb MYOlzbfugnpdaOA7YHTwDI EeqX04tGSyVMsbYr9dp4O1 x372FRLiXBKeyF42Wm2dyZ ogMTBwdCBU kD1ifbmes8xnyvdaUqGtTA FaMEf8UNx8GJNrrIizWrSy PSU1QqH0QEN4iNOmrP2wwD zwdsinlJ1t Oyc+V32mgW4iKJI3OVL4bk ilVEUvblGcAB74NL66U9Wh PjwvdGFibGU+PGRpdiBzdH mjJV5fOmMf h8jzr6KrFSiaB1XuPTEeZU mwNqu5CRHoHLJ6zFS7fT8j VFBqXJyli6V1bWX9P8Cpah Aped6va2vw YZKlRKehL03osFEos5F0GS FanLF3OKNveMcvTwZxkT08 Oyc+CLPuiUopl3WrCkndg2 epg3durEd8 LyWmORFipyGayEcaAMO6h6 FzGd43J75xAMuvMDZcVIWo WBDvRIUzsChmrc5dcW4kSh 8+PGNvbCB3 mLT9lT2qFLLjVoR6UOtkC5 75DcSarTEhWfdpc9qho9rn bSz2RmMhGGPfzvLbiWtkHI Q9v6VvFs68 B28gXGciONMbZRSuDRCvKT JzeVbpqp5acI6cVb7+PC9j v1rnqc33fY57mRZ+PHRkIH C1zXugOEec KWEwdX0zACvsVlE4QWUkTl ZwwS90fCKmQBjbYf1xmTmn dUjxUX1hTCItqnldx963Gx Gmy1rdSSEz eDCrLDsxQUQ3Q78ix1U4SE WlLKXoEDA5yBA8gR2jeDhv bjogbGVmdDsgdmVydGljYW zcIEcaU124 IHRvcDsnPlBhdGllbnQgTm AlRBr5V2LvViy9GMKiqQqy WE6giVJcXKmfTp0ipDrgrL niRK8kLQZp epqaz935XdAhl7tdYSZonB RkABdlQVW9Z56yw2G9MXJg ZEEfGTD8aGE1tO4zfEcdcd ogbGVmdDsg uvAinHymLIsfCBhzB234CZ RvcDsnPkJpcnRoIERhdGU6 ID28CG77eJYcs2M2sIZ1V8 BhZGRpbmct ligngRC9CJHySLJkpQ69Ib 7zgUfsQh8nLXNdFMB6MHNx eCKhR5IbnD2yLcEwSMScVO SaK3HgsNXw NCgwP518FSebWfX7ECVbxk CwR3DjLOHngLapUrR7f9J2 Qj0XG7Z3TE10EB80tIDhi1 X6aEJ1S5Na WZIojxazqnwgtWZ4IVMiHB XpcA61Rb0crVrrYa2cVYOv IRZ1KRXwqRFxV5SmsT7fXa AjMDAwMDAw W4TicFJrEThzJ643RBtaQj S2GPZzoiSrI4JoQSOgkJbn YgD8b3W6Kd7OCTb3SJ56JN 04oOIsm4N4 eXN9W2AfSBAwzwmmmlwgxC Y2XHKgQAZuaO85Ll3uiJzr Ge9kGUVeXFB1ICXniNIgM0 VfzZ1fDxAk PBAlKNDuE3ZufJJvPXfbW2 43HBqpGxC0IJYaxcPsK1Ge LBGzgAzjCmO7g3B2Tg2COK GhPR93UBB7 bUR7DL04MQ57H2XjSqzotQ FibGU+PHRhYmxlIHdpZHRo HBymLYWnLdXpeHutXM9pRh 9yZGVyLWNv mWbkuMMqKvVru8uiNNVuFO fjQQ1pkVsdT6IxmVB6KLCb w8e1Zl71C27rO8UmgXO+PG CmdRH4iSU3 gY9tBmYlTaV0FJitN177Jx AghYDyZpmbo1zxn7ptmPu1 NzC0FKPmaoHhgUecOGD3o1 OiVu97X48p IHdpZHRoPSIxNSUiIHZhbG iunm2mkM8dKj1+PGNvbCB3 oID5yY3sQkYgVuI4HYxoK5 49InRvcCIv Tftbn9qdr5cxpCw9PkMzNU NhhlQaoChpSAQ1q1XtCx61 Q1AgmTneh1SxPwe8ln32yC Bdy0N4bFF3 J1FuHVKkiawinNVwbSirYF 7pZTPkhkmkYESqxU8tBKAn J7h6FdTsAbG2XReaM8Epvo B6AAFsoHNv DTshFAJ7I87rd3O2QDIoNO DmQUT7pTI2oQ9cqPumahyp bGVmdDsgdmVydGljYWwtYW wxH463ZVYa mYtuVOWxrG1mQLZkpGUosT kwNZ0nVBZghzcyMwaDGIsr IEpBREEgTTwvdGQ+PHRkIH B6wSmkXBnp ZLXeiR2sACJpC9p8CxQcEv U2ODhuX4ZhOVFugjbgWe39 zZ7tUoKzZhK6BZwhL3Ggna C5QYWjjGSh NZcxYFY3S47qi8A6CTAiAA UnIBG2uNX1uU9ocEvvwuvf bGVmdDsgdmVydGljYWwtYW gcT220TBYi hFllTzI8UfI5LbB2ATJ9S1 DuSnd5HBXwnBmeJU5afCGx JBxiQw8oqDbeoMabWW1nIG BpbjtwYWRk jT8lIZWaePAuhVylCC9uAU Gipmniv150QdKnGRH1WEMk nZIcO6MobI8uKcRpGEBlOF GlT9NbvHTj MOwbV125URjlZiO0KRFezu MqQ3YdNIBovRnlNhZ5g0B5 Xp9eKIWEYMPcuuckqNL+PH KoXVX9aDaa IQomLTHcxM7rADAvW4x5Yg DhVwK6OPjhJ7XhSWZhzmss Tv58bN7lEwElNpR6KGsnY1 JwthQ1AKDv fZGiATxpYAH3C82dw8V7OC XbLJRrVZJ9aNX0qY6buZwa bjogbGVmdDsgdmVydGljYW jbLHsyV122 IHRvcDsnPkZlbWFsZTwvdG Q+DNTtQXJ4jDrhZHsxBOJw vA0tSKVgC6k9JjDyCpO6JM xjQ1OfQSRu wdwwRl80hY3gAmEvUeZ8OZ btG1VlcnB8ZVCozQDoQQpc TFE9V19or1Z0SDYeIHZfES I5xFS5xV3w bGlnbjogbGVmdDsgdmVydG uuGHmiJPgfD913FBWwxNhn NoAsFLIkHL2rvRttjEI+PC 82px95Z0Oo GierPcb6EWEkBYT0aCH5fM 3fOVXtWEupz7W8cKW6L5Fz buGtuw8io6ioRAQpMVfoE5 1lpAKxs4K5 NRQylLX5UXWkxQmqXsDruC 93Oyc+SUAgcLhfy4HdLqez n5bah8eelEz3LcOiKYBtaa FsaWduPSJ0 x6ZzEx14T28bWOvbSSXqIY WsDEXmKKLpzOtdnp4cvM3j Ii8+XLSypOO9xFF3fE2tXo MqBwC7VRmg T698BbEgqMEzWjout8xbn2 faxDv0EgOwXANghbTcdChm YYQ6w4TaSk15U0SlfBhub2 IxNdo5ea23 cOCug2I3xBO6S8OzHHQuzw cxcZHmjOvkRJ4iBVUfzuxt KAYqqX8fCBXvL8w5KaRhJt W4ADzbL2Lb ruX9KZRagQLwVDQnjYFAiA 0qulxzn0aqxrosYbEfQAIc BSg7KMf0UQLxmTndPoVgMK L9XuW8SGT4 pBHprS1dfUzdwogmqA9gUm c+FTc5u9cieDZsPO1ilTP8 GW87NR85hFGzt0F7wLK5J2 BhZGRpbmct atqqoKB8ONYxBKYbrD94Bp 0nrJerWw4jUJPdFAG8EPFs mLPuI7ZoiP5wNmUgDKKsOQ LmG1GbhYIm RDkpI382OVdaRwE7EBRbih GeU3QbGDDhcGbxKsU2x7J7 On8JYW21UT37HH36oNJkp4 G5fSP9X2Tx DEZqslcbpoeduUP1MVMwPH OzdL38Ah0uyVdfTn8zIBVf AXC3SJEyxHAtZ6KnbO1tHn AjMDAwMDAw N8AscLTmBUriK273SBzkHy W6NRMimyAlB6RdTWHgsFen XzJ8y7N4Kd9RPc81TZ69FJ 02nTXdx8K4 mTK3R4KoKJSrjjhiztvkvK Z9SSLsNSAbwP25Vc4abVxb Xg2rMFZzAZS8KUAljNNlL9 VchX4hClWs AOIjNUEgX5ZspRYpNJqlG9 02FKucDnT5GCVudoWvL7Fe JIOelHcpJzC0y1O6Yq2KQU wrrvf0I4Pe PjwvdHI+PT71RYPxFY63bQ QkrFWfp2sxkJd3TlHgIRTb GEB1aKolGTyvv9KdWCQnX8 0abJAle8I6 IGNv (more content not included)... Normal [facility] Coding Summary. CD:[id number]:[id number] Gh 0bWw+PGhlYWQ+UO0ABNBrB 00agXFopY6KA1yEGB2ZWPJ ULNHASH7HLE9snDK7STvtF 2VybiAv OorlwVKqZZ95FNm2PGY1uG wpLUwkeJ5nlZLrU9v0MiZw MU85vL63EHkdGIQzJoP4Dw ZpbjsgbWFy G0oaUvVnrEGkSqa+PHRhYm xlIHdpZHRoPScxMDAlJyBz tSajOA8oZy8uRCDfMCYjvO xhcHNlOiBj l2abSLYvXDlqVJ8eoKlzV4 UklTH0OHNjn9e8Ef78qHW+ UAOyLUH7kNpgUOirm992Rj Qwh0luGUL9 uNLxFSurDFJ2E53md4L3YB PpLZBmKYQ0bZS9fP5ucBjx oqxiB9FwuUSfHqX2ASG7mV BpbZ9nvQyy ltfcrO5nBos+V93UIA3TXN NCTS6HEnb9E2FnSoolyQT+ WR54ICYrFI92gOEgnKQrf0 qlfJy5BsRj LIQnISN8gRptFPcse9DlPQ XsV55hbEUla4D4LFKgbSql tKThLlHipQH1fH4kLUuaup itp5jhbbjo Geugv9wsnv36pN39D92xTQ zwRXWfAJK8DAEgBJTqxZgd lg8gaP1sDm3+MQbtp9fmp6 tphKg0VlVh UHVkghSjgIksONK6g4XuGm 49N2ZsmSpib7FaDeo6fr73 bTEbm5G2bGZ6ZSlfXEVssD 1yFTxzFgE3 SGZrWwSxmG32eKNgBPakMk 7ldEdmxNnhWK3sNRJofzxj OPWvoY3eXVZjnOKdnCduJG 4wNTBpbjtm h574ZcDlKPT3TQSkvVQdY6 YxqY3tSwLvLIFrYYVcW2Nm jHMtSQccU174UPzwHbX3KB OpgfEtP0Qo KSNzeQayHyF5q3Y6Ti2Vr5 CkuiieUBL6MVybXXDpMiGv BeMsWdU8I2EhWvk0WAJcnS qbQC1wL7Tv HMItdrxnibjxmGC4HAFyNQ WjoX16wFRpDLpnOh9vr5I0 w126RLLnRXFtiW06Uj6pfJ ogMTBwdCBU oO2umaewp4mymxpkMqDmUE XsQHl0YEt0WCObpIbeKeDm ION2GkD0UQV9wFQwaP1qxX aawrimdJ9l Oyc+S82imC9hTVZ0DIU4rz apKCIjxoYoHC62SL39C0Sr PjwvdGFibGU+PGRpdiBzdH zmLR1pLmXw v2qom8AsOSjnZ3WuAFQuOM hwTsg6SEGkREV9iQH6cX7n QTObGYxvw7Z1jVO0F9Bsdr Adkz5gd9vw XVCaGPdvQ67sdOBhj4O3GQ WdwVG7KOIffShvElNwwA80 Oyc+XZEzhCsnv4BcHdstz2 fkb7hnrUr0 ZzFnSOZwjmDwzMnbAAS7k9 VbCz16N94oCUjgZHWnQKDl NWTiAHFllPptkm8mlC2dJh 8+PGNvbCB3 qCO7fO7yVFRiDyR1NMpfQ8 58WcOciFSlIsbeq2hif9av wBj0XxXsEHHrqcVzhBdvTZ U0p7BcMn97 W26pBYzmAXWpGNJsNLSnYQ GabZwulb9rsC6wMh6+PC9j z0svbz46rR85oKH+PHRkIH J0rIrxLWxq YEVbfO3tKKajNfQ1IDSkMe QasA16nJSdRQvwUs6clDea lDrcAV0qXXZykzaiw171Sd Faw1ihVQMw wDHpZYqnDUP1W05rw7J4BE ExUYZyMPD0sZR1oU4ahSce bjogbGVmdDsgdmVydGljYW ffOHyfU160 IHRvcDsnPlBhdGllbnQgTm XeJPy0L0YcGig6DEMubUzh MP8djAHiHXqjPg3edNujzS pzLU4cVSWy sweji830NdLfj3gpXASgjM ZvUVciEWO4L13rg4Z5SRUg RBLjDJJ0sJN2sD9upFyuvt ogbGVmdDsg noMugNgqBThdPIjzB997DM RvcDsnPkJpcnRoIERhdGU6 LB94BN05oOKda9X0rJA4H3 BhZGRpbmct bllfwIJ9BTYqSNPvdY17Dx 7frKbnFj2zIHMkCAC2JAFx qJFfN4FqcG1kWbVsTMDxWR TeW0OrfBGf GDksM962TTtaVgB4VWZyem EtN5OwCHBefAdfEqC2q2D6 Ec4WN8T1DS49US36zMHiq5 W4cFQ4N0Us YXVknawrphnqeVG5SWYnVH LyrA99Qw4gyWwpMz9kDTDl PVO4KKZccBRyD9JteC4pVt AjMDAwMDAw G9QayRZuEXcaT682GPwrGa G5DPBbuxLiW3CoGEMqjEbg UpL9v1B7Po6FEMj1TG66BD 15dJGar9J7 kOU1W1GlBROtarevgnchoJ T6YTSqJSSyjY28Zm5nxQpl Vj2rWPFxDPH1NEPxrIUbO2 DrsG2eVxIo RCWuASPlD0EgiJZgILbcJ5 28BDfaGbO1RQMvaeGjD8Op BBOisRuaNdE4u6X8Iy8FBK EvHJ18MZP9 gLS7DL28RJ41Y7VmAozaqP FibGU+PHRhYmxlIHdpZHRo JNjfGNYyObIkiLbcIL6bWu 9yZGVyLWNv xGullDPtUqXsf2xvFYOtWG hqZB4goEnqX2XbxXL2LEOg f8d5Sg63E35lG0NvnAN+PG CqqAG2fID3 iG6nRsOoCoZ8IPbmL474Su DpnIPyHqgxy1crq6mjnJq0 SfS7HYXhwxSavDwqOXC7r7 YeIn50J82x IHdpZHRoPSIxNSUiIHZhbG wsbn4pwQ4aBc4+PGNvbCB3 eDQ7cD6iHzYkWoI6EMagL2 49InRvcCIv Unfys7erf4bhnEt8BhRhXT XpvnWhmDdxIXA0u8QwPr82 L5OrhHndd2QmQzh4cz74mH Diz6H0qOS3 K1TvPKMxbhncjGKhwQkeFD 2qDQRwhfzyGREtvV0iRSWa W6y4AxWtIbB2REekW7Jmqy S7OHFkvBYt OXkaAEC6I50xx4K8TZIeLO BvMKP3aWF7yJ4ceGktxaas bGVmdDsgdmVydGljYWwtYW xmP711YUVu xKvjIMYghK4lTGKygDXziU sfEI8yZEDgpgrrDeaRZWlj IEpBREEgTTwvdGQ+PHRkIH D9hVrhMDme DVQxqD5yVHPcC2c8AeJuVu X7FHeuH9UmEDXckssnJe32 jO4rIxRmBqG3SXkkS7Lszf M7NXZqwZWz BQpoSXX7X69wh1E2XLBtJD TyGTJ0wEL7pO2zkPxfntaz bGVmdDsgdmVydGljYWwtYW tyY793OHDi bSrdUvR5YnC6NiX0JSH9J3 XnYgu0HHKoqOumEK4whOFx KCgrJj2hkLxdqQieLX6zST BpbjtwYWRk cY1uVIDyrROloHysDG4jAS Snlsyki478EvEoTOP9JDIl cXPcA6HmzY9mUyItVFSzZG OeH8EafYDh HQjkC506ADszGsG6RQTmiw JfX3WuSGYrtKlvXvK9k4K2 Yj3iBVGBMLOutsuebDB+PH RbNPY1tGau YLtcVJAifL1pCCQhW1c0Ad XmZvS7SGnlD0OgFXRmrbyy Wt43aA8hMpMkGbU7ONhdC5 HqdqB6VZHo uMIwGIobYOC1O78vm5B5HB CwZZXiORI7wBR6wY0vdLjx bjogbGVmdDsgdmVydGljYW wxRKdoZ750 IHRvcDsnPkZlbWFsZTwvdG Q+TTJxMDE0bIgcJJdwALOu hE7gAGWtI3t9KjHbOhB3OD hxX1JqRFWs pwohGp13oT5nCiNeJdI7BY xoS9ZmbvT6BGYgtTBcIZux ZSE8Y12na1L0JRIqUCAiGI Z6oWK8xK3f bGlnbjogbGVmdDsgdmVydG foGLjqFThcP688UPYbeFqk VyYiGKOsHW7rgPtzbTX+PC 86ks88P0Zv FbdtMby0PGTdQSY4nPU6wY 1cXUXmEHfnh7H5sVR6S0Ba asQzvq1cu5nvNCUtDZfdB0 1gcEFdn4D9 ZCInfUW7IDTtzKeqWmPwfT 93Oyc+NEEzhUorx6EqXwfe s3oqw1plxRi5FgDxJVEhoi FsaWduPSJ0 r3PyTt34Q66bRIjrROVePI HkELYcVBTxvOviug0hyQ4c Ii8+SNDroKH9vQB5kM4xMm GzToF5KJfh X060TgZpdNYrOetpo1vat5 froBo2MqUjLKHuplIbrMxi ELV9s8EfFj42K2OgqUjpz0 XeMck5sk89 hHDkq4B8mEA9J5QpKEDnbv nkwUVxqCigCP7rLTHcaakf YDJezZ6fBSAcT4c8TsHfQn D8HOuoU2Qw caZ3VAMliXZcLJFenYYOsF 4yidsxe0iqhnnqRyVpLJSg EMp0MGt5XWYfpFyfVtLuMS Q7MaF7BXY6 lJIixQ8uxHjfzofklW6eSr c+SUt8h2zcrYUfQP0pmTI4 BL01QZ96qHOdl3P1xZQ9P8 BhZGRpbmct xwgpaKT2SGKwJPJutI81Dm 7ocEcjYw7mWNWrVNK1IPDl qZVpX1BshN1wDmIqZVDmHA GbP7FywNNt RLrxV465MKgbDlR5POFlts QfF5FiUBZdlYhdIwA0o0J9 Rn7PMM72DM44SL57zQGkp3 I6qII3D3Uc BNCibxyrbjyinMI1BMUoWB PswT76Kc1krFzoNh8fOSPg ZTP3OMTeeVUhX1IdlT8jEj AjMDAwMDAw U6ZysQTfUBruZ991SGxpQv C4EGEllnFfA8SdWAShbGlr KrB0c5C4Af4SLw12RL94RB 87qRNgk7Y2 kDS9J9SzJYKouclcntvgeZ G4JVNvQNRfzE29Jk5qmEhv Gz5oDTZzMUN9PBQyqCFrI4 KnsW6qWiId PQDyZZNnP0RuvIJvQFayP3 78BTnmFuO8ZIYblsYwW9Co MQDpeKzlQsE0u9D7Em9ZWG zgnhx8L3Ho PjwvdHI+WL45ONUjBH86dO RntVPgi5mkaOe4QaMeVVTr IHJ0dEphVDnde2PeXNHvJ2 0xwXYfj6J4 IGNv (more content not included)... [facility] Coding Summary. CD:[id number]:[id number] Gh 0bWw+PGhlYWQ+BL9FTZSuR 71xkRIrqP5ZG2zAFI1LRFX GVVIWIC9RXE1grFF4POjpD 2VybiAv WpvphJFlNF60AOo2FOV1dD pxLRkxqO2ypBYrE5y5YgVt OV46aS84WCelXXYjWwP6Ve ZpbjsgbWFy R7kjMvDfxEHfTjn+PHRhYm xlIHdpZHRoPScxMDAlJyBz eRccSH6nVh9eBHEuZWNreA xhcHNlOiBj d7zxUSNjPHvgLL7loOajS4 CdfWS2XXJck3b9Kq18qJM+ NRQkQQE9lCttEHosn914Lj Jyk9nbQOB3 tLWiIXfeRKQ6L78se9G1IO JcUSKiUJM9xWN5nS8kcXcr fsbkT3FqyRZqDaK0CYX0iV FotX1edKvo kvxxiS3xOwx+W90BXJ9KWJ NLEN3AXuo1X1ZwZrllvLU+ WI27WEFfAK44mXJpmWGdo9 goaQd6AcSm JQShEVF6qIxzDBlyc0TsEW KpJ90jbLMnm3M0CUNayAor tXSlWiFuiUR2pA7oGKnvoe ikk3syhxzl Rtiuj5jtdt22xX75Y83oYK clJYOlGJK7VBWaTGJxsQtm sm4rbV2kKm6+RGivj7cqw1 trkFv1YxQy MPIkjyQapMigTGZ5n9RzUr 84I0MyyResj6OmOqn5en86 jXSdn3P7cTR6PYvkZFIshM 8xBFobOqZ8 PVHuBjUifF62sXMjMSahJv 9gsAlpsNbfGF4vKTBvxlij KXEdvY6uAIZdyAUbcVgnHM 4wNTBpbjtm k755IwJkMOS6NVYkxUMaP9 AiaJ7wUxBaJJHnIKNuI1Ee iJLzPIvhK546ZIqpIiB1NE NyrjUeL3Hf JGDfoCibNoB8n4T5Wn0Dj7 DdizrpNIE4QHrcCYEzUwIf BfHdXpB2O8TbFfm2BZUuiM laSL1oZ1Nc VNYmjqghnavveUI8EMGmIK PfbK02zJOmBEuuMp7ir0B8 b986GUPbATVrtL01Mq7ahE ogMTBwdCBU bT3vzhqpl2zgnoseIpClDG RxGHe2CCa1RIXwzJfqIjAu BTF3SiV3UQS0lMMmbI0ytV pqvtvloQ2t Oyc+A25piT1bJBK2LHB2qh gyOAHtmmMpMC16PJ34N0Lm PjwvdGFibGU+PGRpdiBzdH baZF3oMeTr j3dzy7KtPBnjY3ExNVRdWM pxOsw9FFBlUOJ9cHL3hR2y VHIhJNkjf7M1eVF1N5Tnvw Rorn5mp9id HAUqXMxdQ11gdMAah7T8BH DihJU8HNHloJprTkVveW94 Oyc+NTUlyKeml3YnPcwzb2 rhh2pcqOk1 CaRdCWLpxvZrtXufGGZ4x6 AlXf89X21pOGzlILOiGHTv ZHFlDZFldCqihj5omI8lJp 8+PGNvbCB3 wCZ4nS7eWUKtHjR0CWyaC1 17DlJtqTGqWquyf1jbj9rt zIg5EkLgDGHxzlFpvGooMR N1r6MeWt58 A00wMEmxKUDuITSrTMOnPQ MyzFlauq5euT2vYh6+PC9j z7qaxh81hO98wBS+PHRkIH B2uIldIXrq FLAviV2sCWrdZzN2QRJdMg KulU94jHFbLUruCg8yfJue aLfpBO2kGCTwpopau216Xa Fbq4tiUDWv aCFdKKeiQJY2Q56ay1B3TL VwRRLwBPZ2lRU0cS0ejRcc bjogbGVmdDsgdmVydGljYW ykFRwuL787 IHRvcDsnPlBhdGllbnQgTm MlIKi8O7YnYft8OVGmoKwr WX0hnVYlAExkAa2ouQiopE hmOH6rGKBz nnyrp845XhQzd9hpHMVjcZ OjFLucBKS6Q15wd8J4BTBa QOShDID7mKK9yD2iuFxrdw ogbGVmdDsg bzLioBqrMIftAEukC651PS RvcDsnPkJpcnRoIERhdGU6 XO18RV83lKMfb8C6vPY9H2 BhZGRpbmct dmwguFO5SETsCVBviX30Om 8vpWgpKq6yIQHwUDJ9SLIy rGWlL0WmoS6pAwWvGIDuOW FcQ2TbyEFx TSumF875JFoiWqN9TCNszp XsY8JcCVYbnBazFdT2x6L7 Nn5GP7A3EI22PG26xXFab5 H7eNO4A7Kz HKWgwhglurajqRZ2TNVtKW OmfL12Go5ylSszGr8xTPXe RCT6LKSkwFLzG0KxcP3yDa AjMDAwMDAw L1UmfEAoDShsI219QOjoNj X5YTGvpnEwO5ImZQLbtReu ZsC5c8L0Vn4NFDw9SS23UY 37mRGek8F6 jXQ4L2UyPECvqplelkxvvS R0VCZgHUMmjF58Vu2ubMnn Vj2oKQMhOSF1MRLifJAgC1 GhxM3yUuNe XHIfQTPyX6JtyCEcWFojK9 78KMhzZtS3XAVogwCnK3Im URNqgTluWqK6s3D8Rf1MIY MbTT00ZED0 cXC1LG15WV59U6YvPemfpL FibGU+PHRhYmxlIHdpZHRo CVdvCWVqNaKnvRfwVJ1gFu 9yZGVyLWNv sTjhgJXfAaSee7vtIHKlXT crCE3yxYjyS3VwnAZ7ALVk t4s8Aj24W77dR4PjnIT+PG UyhHL0mHS6 yP2hQnGpAvK4HFdhU835Wq JdiGSmPxuhj6ron4ekwFu1 QiY7ACBvbhFhsUnfIBD6d7 QjPu01I13o IHdpZHRoPSIxNSUiIHZhbG btqd7ncX7kUk4+PGNvbCB3 mCF5uZ7eAnEdNlJ2UCsdJ4 49InRvcCIv Citwg9knw0sxcOq5HoJbKX PxxwLoyLphDPA7w1ZyRl52 U9BviDnxz6WzVha9iv69qH Mzk2B1mDZ4 Q4HiOPVfrnchyZVveSiwJC 5bZKQrwugxAOZyjS9jJGLj C4q6JhAvLqO0IOgaO8Dkxm P3EABghHEr UZuyEBD9T41xk5Z6VCXvHL CzQJD2pIP7iK3fiZajlxqe bGVmdDsgdmVydGljYWwtYW ahT337UIGy mKbpKYEnkR7lIEMqxPCqrG btGU6fDMWpbeoiOfqUTXcd IEpBREEgTTwvdGQ+PHRkIH F4uJqiBOjl KBTpvO0eRYYcJ5a5InSpQd W6ERpxC6JmKLUlamyfEd84 bD5eSjWeYeE0FMqpD7Yhyv U9OONxeSUf BPzrTOS8C36sp3A0QNWhOL BjEPV3nNI0sV1olZcsnuad bGVmdDsgdmVydGljYWwtYW qnE769NQVp iDflNzZ7MhB9KiH2OMJ3G7 DkEvp7FLRtnLssRB3bwEJh JKbySx2bqAusdYjiGH6tTO BpbjtwYWRk rO2kOQKmvTPuqKgiTK5uFX Vrplyki993AaJaUVP4NTHa rFKtH9VotR9zQeUfZIMdWW EpU9RtaAUc JGreW189YTzcNqS7TWHmii WhO7ZnQGFnxUttBsA0d6Z2 Jn8fCNOZGKRqleftvQR+PH WjZOM7zUld YDkbBJVafY2gIHXpJ0p2Oh QfDqL1DQskT0EtAKSxobyc Jv71pB1fXbSxXdO5ZPsfF8 OkzbT0SFQn fLJfWRacPAJ8I19hw6Z3MO DsXTCqXZM6gDR0rC8rcJqx bjogbGVmdDsgdmVydGljYW xyCPlqX205 IHRvcDsnPkZlbWFsZTwvdG Q+VVAhVFM6aGakNBaeWNGk jE0rSENmK7o2StFsIiR1HT mzF0PqFLFv cpcoPo84rS6lLxSsIpE6HP gwL6AystV1SRXxvXLfVDej WUJ7D22yj4P7GEMcKYEvNB N7sRB3oP6z bGlnbjogbGVmdDsgdmVydG yfEJpjFOehT722BBBwlQqq GvMwUAQxRA2gqMlycOP+PC 67is55Y9Zk DmquIns5NBLePSI7kLO2kA 2fZEQjXQzur3O7dAG6Y7Eh liHain2ci1xlBBEsHRekB1 8yjBYnc9Q7 ADAruDY2YXLaaOozIyWlgZ 93Oyc+MYSbxLvqc1BoHvpu a4nzf5ynoBu7NrPvZJBguc FsaWduPSJ0 d2LoFg82Y28eCWifMJHwNI AxGVBdPWSxuAqytr7dbK7t Ii8+KQBjjBH6aNA4hY8bAo UcNjR8QCsw S533TfVybLVbHoesy5qan1 wxdIa8IlEsMRCugxLenKov MAQ9g0VkAg42O1JjtBgui7 GdYjk3zl15 zVHub6Q3tHE4C4VpWLGgym ohlSChrHikWM8eEGSuovax OKIbuT0pEFBzL2b2UaRdCe Y2QNjpP4Fc lrV4NHJsyMSzYMFyoOQFzE 7xsxiqg6qungtpNyNjUQQv NXr0IPf5DSJuvZjoMlRvOT W0AxD9ERY1 eZLoaC1oeIcfsahziW0dOa c+FFv7a7wzePStKH6yrWM8 QT40TV69wNBho6H1yYS5B6 BhZGRpbmct jkuhwKZ1CTGoLNXybK38Gj 2kyVilMu8nFXDcQNQ8XVVs tFRzQ1CkwK1fEmJgCCJqSP UfY5GfgLRd ZZakW128RVieIuD0ZTOmoc JhO9PqCLHlaVtcElV6g2I8 Ud8IXI79YE81KU25kMBaf8 Z8dOU5S5Lz MXSjrcgjnaxbiWL2FSPpDX QiwO41Mp4sgCpfXg4sIROm TQJ9ZWVwpGCtD3JuoK9tZx AjMDAwMDAw B8LffCTqKPwaH255HDjbTx A9QCGsdiLsN8WiHLUqzZvd BmO7d8Z6Qh6UPl20IV47MQ 23fQAht8N6 gMJ7P1KaNVLgzsimoxxttK X7JUFmSLLadO32Fy2adHjt If7vWQJoQEQ3TBIkiGGfW4 SfoX9yHpJt KZEbDKXcX4CqxRMdLKgoL9 35PMqcEnY8NEQdqiRaN0Sn KFJzfSkaAmL0s7J8Vp4GBU iwjhe4X0Sa PjwvdHI+RU91OLDnYT60lN HuqCTjo8rmoUl8FfIuKYPx ANV4sNvoPYybr8ZsMXOwR4 7oyFNcx2G0 IGNv (more content not included)... Normal [facility] Coding Summary. CD:[id number] Gh 0bWw+PGhlYWQ+BT3CCNPeY 48jtFXxbX3FJ6yQBF4KRMV BWWUAKP6LZA1noTX2IPzmA 2VybiAv TqreoCRcWW69JXf5MDO0rT hfIJllfM4igXFgU3h7DxNl PQ80nK49XNwbEMTvArN2Iu ZpbjsgbWFy K8jcUlDjuQImOdr+PHRhYm xlIHdpZHRoPScxMDAlJyBz wNqrRD8tHc8iZRRdKMGknZ xhcHNlOiBj z3xmAURwYWauZT6zoQhfW4 KwfOC1IXEpn6b2Lc01sXD+ TWWcQBP1nAnlPBktc641Mj Sxn5ktHGV5 rFHmOAwiNEE2Y60gc3X2FV JtEAVkWPS9aMM0zI4fpOxr jlwuV3KzsDArBbA5VUI6oF UmfR2wjXzm jikghP0pLah+D57XUR0DWD PZMN2YVfp3N5NqWqtvpHZ+ ID96VOLcBP54zIKrvMDbt4 hqmZm5ZuLz NCQhNXM5nJqkNIcgw3VvAM QfX46gtOGzn4H5XHZnjWtq uTVrCnHymAE0zM7rGTyzvw cho1ywvwdc Qaojq1ieex75sY97L90kDE jzWORmZVL0SPVvIMGfkHpt ye1yxE1zOj7+VKlss6ysd5 xipCt7PdJa OLUtkjYddQvxDBU9y5FpQt 61P5PlbTvfy8DpUyl2hz05 sHYpn3F6qKB0HNveSIZevW 8qWNetEzR0 ABKnKoMurJ12hYWnGQxtFf 3psWadwItvSK6bGMEogqsj RRHinD4wTRVgaHPnmSsyDY 4wNTBpbjtm g812TbRuHDL5IRBbxSHeZ6 IxjM9uQbEkSWEaEPRpJ3On sEBuJHjsY417AYymZzF3FB RojxGwF3Pi LJPrpWzkFhA0v0R8Kr1Ki2 XapclmVJY6JZxiQNKeGvZl MbZdKrW6C8LjTyp7DPHbeG ohVA5eJ9Gx BACtqtqucanmlBX7FLAxOG VrgS39uTDfAGhkQs3xs4E8 r424QBMyZUEnlL09Va6nlX ogMTBwdCBU tC7dndnbi3vghnyhFvHoDM DsXKc0XJw5PURgsTsuTgHl PIB1YjB9ZII9jXUfcG9rqI rbdvoukR0e Oyc+C39wuO6oCIH4HBJ4we xpONXaacQqEX48EP98V4Ws PjwvdGFibGU+PGRpdiBzdH qwGC4lPpPd y6dvc2WgOAfmH3ObQKJdRQ nkOgo7RKYtUSE2vDD9mX4u ISJjOWifh0I6vYY7K5Yckc Sxen5yf7js RBMyRGvsN68pnMFtx9R2SZ GhhHB9XZFpbFqaPuBgpK27 Oyc+ZMYrpLihs9EiZuiid0 ost8pdqLw1 KdFkSGOktgObdQbdELW2i3 WkDu86B99lCJwhUKAgXVSd EGLdNIMxaCbdjr7iwE5gRi 8+PGNvbCB3 hKG4mB9fEUIhAlB3BQeyX0 57IzGqtNXrEjqdh3ehx4tr gIe4QkEgTPBokkDkdPcoYJ G4q7RfGz30 J70iEXtcJGUfXFMgCEAwYW LrzOekvt5guI4dEm5+PC9j l6hunc96dS91pSC+PHRkIH T5zYugCQrk XQWfjQ2yUVmwBcQ3WYLnGn GcpH43eHJxKTxzHp2rpJcg fParGS0mPNJfzozcu645Uj Okd8mcXDEi dYIwHNckXZG2T00ux6Q0YX DmXEKfPOA6fEQ7xU4rqKcu bjogbGVmdDsgdmVydGljYW sbSXxdE143 IHRvcDsnPlBhdGllbnQgTm CeAWw7B7ZxBxg4YTYobUvz IJ2beLSoGBvyDj8piQaraU knBA6iEDEd vbqgc234ZtPzz8qvVFCyuB JaRWerULZ4A31xf5C9SIXh ORJpLWX3jTG9zY9woTzgpi ogbGVmdDsg thPibDviFXevNHgoK126TH RvcDsnPkJpcnRoIERhdGU6 QO62ZZ94kXTrb9P5kJW6L5 BhZGRpbmct fjtupPL1XPUiSWLlfL26Wt 1ykHbsSf4xKXBiHVO6CNFz vBZmN6PxqH6lSpXbTAHcIM ChI5XolYJb LSopZ157QRukHqM9GGKdou DaF3FhIEKuyAjdTcB2h4A4 Zz5ZF3Z4TO79DN70tHXak3 E3zUU0R2Du ENUvizkqwmsaqOQ1GEMsZI GebN04Or6hoBrdQa7kWIAo NIU7BPHnqUQkO0TdsO7xLt AjMDAwMDAw P6HhuCSbQVzwN096IDdpAj O3JKMfabMaF7ZpHMVqqDea NjY8e4E9Kh6BUVh3MO74TD 35pPHzy4V9 mGU5C1CeXKLtlvvyzpqfqY G0GYRiRIVbrC01Tr0hxTjo Ph0wQTWsGFL6UZYzrXBqC6 EmlS8aIhRe MNIdANNvY1KnpETwDCctB7 05UUgtFfJ2JKFbtjYhK3Pp NZFgbLgjMzS4l8C2Oa1HWK PjMV83GXY4 nIF6KN66TA86V0DfCccttJ FibGU+PHRhYmxlIHdpZHRo KEaqOLFfAgUdvYvnYN8iDq 9yZGVyLWNv uKrbbAEfArElt6xmAGIuOP fhGW4rjDxqP1YonZM6PBFx u6e4Rp99O34kN5IpeEJ+PG XcrGV3hCW6 gC1rOqOjCvX1OAplE756Jh WtuBFfXrvoy8gya0fbsVx5 KrT7PPMhryDwdLdvOUP1c9 PjQq35M87m IHdpZHRoPSIxNSUiIHZhbG czsl9qvX6aRx7+PGNvbCB3 yKS0gA7xPnKrJgA8MDcnJ3 49InRvcCIv Otvvt4hhr9gerXh0QzNlVT ItgeSlwEzpEUR1u0HiAa08 A4UyzYwzi0KsFhs4ix90iX Tsk3I3uKJ8 K9VzHZVmcitdqQVxuYwbQJ 5yQPQepejqFKDukC2mXVIw B7t3VtAgVxQ8EAdsZ6Oxca V8BHFcvHPh BIeySMN2W19zx1Z6VVCdOH WiKKV9pOA1pL3nlLjjiulp bGVmdDsgdmVydGljYWwtYW tgX910TPUo yLplNEAfhQ6gLJLraYJcvI tfEE5mEJAoccroUkkHBQrr IEpBREEgTTwvdGQ+PHRkIH E6yYtyUUid VJUavC4iSIGdQ2h1LgEaEe T5FQsgU9HgRJVvwztwMr84 tU6kDdZyNoT1HMnvB6Tsrt X0UNDlaJGj TQfuHPN0R16my5C6QJRsFY ZgPNJ0fZJ2qU8rzIzlfzmh bGVmdDsgdmVydGljYWwtYW azV171BDOq lGowExE7ZoM0YpB5VPM5Q9 MzFxq2GHXrsRzdGG3ytBVj ROapZz6tkYayxHboRP2xIK BpbjtwYWRk wW4uBNFmbOLlhYkrNJ7tDC Yxzjmrq655WoWzIXW1YVSp qSIvB3PslN6rBvTySVPnTJ WgF5ZwxFRl ABzeA009VNxcWdA0ZZNkog CzI9ShTLZswPscKdH6q3S9 Aq3tYPTUKUPuxfcmxSI+PH QnFOC1hGqh FVvbMTQlkC8rSWCtG3w9Gg ZiJpJ8WIwiP3NlLZVhwnia At08iC7qRbWvNfS1DJboV1 GqldA8SZDe wABuEXzuNHC6U42sj8M0VR ZpGNQvYNJ3mOZ7yB3bdKwm bjogbGVmdDsgdmVydGljYW ehBWyiI091 IHRvcDsnPkZlbWFsZTwvdG Q+GMIfPJP0dGkxVFahASYx vP4dXYRhV0i5XlYxUzH1QI roU4ZyQDSr upbzRb28zG5uUwSdKnP4HD dtW3MywpT2XZFttTLkAVdu GBC1I28rh0F9LGBmMHVeCS F4oBV8lR6q bGlnbjogbGVmdDsgdmVydG gmOOarXQjqV867UADmrQzi UuWzHABhST3trSqlqPR+PC 69my22A1Hy ExjdTtk7VAQlZBK4xGN3iL 4bVTGfRVkws6J8qLS7J0Fb luIoii5py5esFLExYLuqH9 0qxQEde6H3 CYCobOH3CLLxxZlsSgIauS 93Oyc+MECigXrtj3NtJnmt d2qdt7fstKd7ZkKkUJHwyt FsaWduPSJ0 x3PoXl55P31mKJhuFSCgOK EcSIOsZBBgbOmxes6ziA3f Ii8+RZSsvTG7yXG3zM7zRa ZgUnQ5LPjp K013ZcPwnABoJorkw1eyy0 wteEc5DdKqNJUaqjZbtKrt OUH2m3GcVj28F3GcwOlch1 BhMhp3ku38 gWMjq8Z4fGA5D5JuZPUjoz zsgDVajZkzRH7aYXAoucea XHItgM6nLXFvB9k3VbJwWe V2OEftY3Iv dgZ0VBUusPUlVEBosOLCiP 1cocite4slhktbKrYiZKKk YGu6UDi4CODrrTheTvIiDV H7ZfH4UBV3 zHPtqI1ghPnmcxsjkY6fXu c+SIv7m8wasOMrRD4sdYK2 OC51UY98zLYvv5Y2nFU4L9 BhZGRpbmct phwqtYI6GEQqZQCcwB21Fw 9gqQgiRh7nXJYsXZK6UHJt oMLrY5FreS6aTaPdQMRcAA FjN4XleLXn OCidW050XCngDwG9MTKtxn HpN0TwRTRqiEwrLrT5i9V3 Ed2LHB37JZ69UD34fNElq9 D5sYP2S0Hm YRHfwmhrzipilZR4DPLyRN EyeX04Tn2vbRlzRq3vCNWw HKS5DDGttDDvM5ZidZ8iMc AjMDAwMDAw J0FvaAXdVRgbP238GVmhRz S6BPGadfKbJ1DsSZKiyIit PvP1q0Z8Hi0MVk61KJ26UA 06vDHeb4J2 hHI2Z0SjNWOdaacablfgcD C7YRFjFHUuhA14Xi0xyHnx Kc5eXGWiTGD1YWKobIDrH3 HlfD9qOxZe LDKbQWOxH8KpsACeBWfbG3 50FCeqWuW3EPRgeaLlX7Zg WDDcpAfuXzZ9e5N4Vw6WWU ctamk9Q1Jq PjwvdHI+MT19HWWnTW68oU SgxCPuw8mgtZl5WnXpRKSf QQO0eHarROrgt1ZdTMOcW4 1dsWPaw0G6 IGNv (more content not included)... Normal [facility] Consent for Treatmenton Consent for Treatment [id number] 2099 [id number]:127 Normal [facility] Discharge Instructionson Discharge Instructions [id number]:127 Normal [facility] ED Clinical Summaryon 2021 ED Clinical Summary [address] [address] ED Clinical Summary Person Information Name: LEENA INTERIANO Edith/[facility] Age: 32 Years : 1990 Sex: Female Language: Sign Language PCP: BENTLEY LUCERO CNP Marital Status: Phone: [phone] Visit Id: Visit Reason: Eye drainage; Nasal drainage; Cough; NOSE AND EYE DRAINAGE Speciality: Acuity: 4 Enc Type: Emergency Med Service: Emergency Arrival: 06/18/2022 11:56:54 Discharge: 06/18/2022 13:28:10 LOS: 000 01:32 Checkin: 06/18/2022 11:56:54 Checkout: 06/18/2022 13:28:10 Dispo Type: Home (Routine DC) EVENTS: Event Name Event Status Request Date/Time Start Date/Time Complete Date/Time Arrive Complete 06/18/2022 11:56:54 06/18/2022 11:56:54 06/18/2022 11:56:54 Document Home Meds Request 06/18/2022 11:56:54 Triage Complete 06/18/2022 11:56:54 06/18/2022 12:19:51 06/18/2022 12:19:51 Bed Assign Complete 06/18/2022 12:07:40 06/18/2022 12:07:40 06/18/2022 12:07:40 Dr Exam Complete 06/18/2022 12:07:40 06/18/2022 12:24:14 06/18/2022 12:24:14 RN Exam Complete 06/18/2022 12:07:40 06/18/2022 12:23:30 06/18/2022 12:23:30 Pending Labs Complete 06/18/2022 12:22:56 06/18/2022 12:53:42 Lab Complete 06/18/2022 12:22:56 06/18/2022 12:53:42 Registration Complete 06/18/2022 12:24:14 06/18/2022 12:38:52 06/18/2022 12:38:52 Dr Exam Complete 06/18/2022 12:29:51 06/18/2022 12:29:51 06/18/2022 12:29:51 Reg Complete Request 06/18/2022 12:38:52 Reg Bed Request Complete 06/18/2022 12:38:52 06/18/2022 12:38:52 06/18/2022 12:38:52 Discharge Complete 06/18/2022 13:13:38 06/18/2022 13:28:16 06/18/2022 13:28:16 Transfer Complete 06/18/2022 13:28:16 06/18/2022 13:28:16 06/18/2022 13:28:16 ADDRESS: [address] [place] [phone] PHYS DOC NOTES: MEDICAL INFORMATION: Prescriptions Given: New Medications [facility] 1985, [address] [place], [place] [id number], [phone] loratadine-pseudoephed rine (loratadine-pseudoephe drine 5 mg-120 mg ER Tab) 1 Tablets By Mouth every 12 hours for 10 Days. Refills: 0. Medications to Continue with No Changes Other Medications amoxicillin azithromycin (Zithromax TRI-EUGENIA 500 mg oral tablet) 1 Tablets By Mouth every day. Refills: 0. cetirizine (cetirizine 10 mg Tab) 1 Tablets By Mouth every day. Refills: 0. cyclobenzaprine (cyclobenzaprine 10 mg Tab) 1 Tablets By Mouth 3 times a day as needed Muscle pain. Refills: 0. fluticasone nasal (Flonase 0.05 mg/inh nasal spray) 1 Sprays Nasal Inhalation 2 times a day. each nostril. Refills: 0. ibuprofen naproxen (naproxen 500 mg Tab) 1 Tablets By Mouth 2 times a day as needed for pain. Refills: 0. ondansetron (Zofran ODT 4 mg Tab) 1 Tablets By Mouth every 6 hours as needed Nausea/Vomiting. Refills: 0. pantoprazole (Protonix 40 mg Tab-EC) 1 Tablets By Mouth every day. Refills: 0. PATIENT EDUCATION INFORMATION: Instructions: Upper Respiratory Infection, Adult Follow up: With: Address: When: BENTLEY LUCERO [address] [place] [address] Business (1) In 3 days 06/21/2022 DIAGNOSIS: Upper respiratory infection Normal [facility] ED Note-Physicianon 06-18-20 ED Note-Physician Basic Information Time Seen: Grant Jacob PA-C 06/18/2022 12:24 Chief Complaint Pt. came in d/t eye drainage, cough and runng nose for 4 day, History of Present Illness 32-year-old female comes to the ED for evaluation of upper respiratory infection symptoms. For the last few days she has had sinus congestion, rhinorrhea, and occasional cough. No fever, chills, nausea or vomiting. No ear or throat pain. No ear drainage. No difficulty speaking or swallowing. No chest pain or shortness of breath. No prior treatments. Of note, patient is deaf communication via sign language and iPad translation was utilized. Review of Systems A 10 point review of systems is negative except as noted above. Medical and Surgical History: Reviewed and noted Social history: Lives at home Tobacco: Current Physical Exam Vitals & Measurements T: 36.9 ?C(Oral) HR: 78(Peripheral) RR: 20 BP: 133/88 SpO2: 98% HT: 165 cm WT: 86 kg BMI: 31.59 Nurses notes and vital signs reviewed and patient is not hypoxic. General: Well-appearing, does not appear ill Skin: Warm, dry. Head: Atraumatic. Neck: No JVD. Eye: Normal conjunctiva. Ears, Nose, Mouth, and Throat: Sinus congestion, no difficulty with speaking or swallowing. TMs are clear. No pharyngeal erythema, tonsil hypertrophy or exudate. Cardiovascular: Not tachycardic Chest wall: Respiratory: Respirations are nonlabored. Back: Normal range of motion. Musculoskeletal: Normal ROM with no gross deformity. Gastrointestinal: Urological: Neurological: Awake and alert. No focal deficits. Follows commands. Psychiatric: Cooperative. Medical Decision Making Patient well-appearing on examination. Stable vital signs. No hypoxia. COVID is negative. She is treated symptomatically with loratadine/pseudoephed rine. Patient discharged home with PCP follow-up. Patient was encouraged to return to the ED if symptoms worsen or change. Assessment/Plan Upper respiratory infection (J06.9: Acute upper respiratory infection, unspecified) Orders: loratadine-pseudoephed rine, 1 tab(s), Oral, q12hr for 10 day(s), 20 tab(s), Refill(s) 0, [facility], 165, cm, 06/18/22 12:19:00 EDT, Height/Length Dosing, 86, kg, 06/18/22 12:19:00 EDT, Weight Dosing Rapid COVID Antigen [place] Disposition Plan Patient Discharge Condition Disposition: Discharged home Condition: Improved and stable Counseled: Patient and/or family were counseled to workup, results, treatment plan and follow-up recommendations Discharge Prescription List Prescriptions loratadine-pseudoephed rine 5 mg-120 mg ER Tab, 1 tab(s), Oral, q12hr Follow-up With When Contact Information BENTLEY NIC In 3 days 06/21/2022 EDT [address] [place] [address]- Business (1) Additional Instructions: Patient Education Upper Respiratory Infection, Adult Attestation Patient seen and evaluated by the physician higher level teaching assistant. Attending physician was present in the emergency department and supervised care. This visit was performed by both the physician and an APC. I performed all aspects of the MDM as documented. This report was transcribed using voice recognition software. Every effort was made to ensure accuracy, however, inadvertently computerized cane weigher mistakes may be present. Appropriate healthcare PPE was used in evaluating this patient. The patient was placed in a mask. The healthcare provider was wearing mask, gloves, and utilizing proper hand hygiene. All equipment was properly cleansed. Problem List/Past Medical History Ongoing Smoker Historical Deaf mutism Medications Inpatient No active inpatient medications Home amoxicillin, Not taking cetirizine 10 mg Tab, 10 mg= 1 tab(s), Oral, Daily cyclobenzaprine 10 mg Tab, 10 mg= 1 tab(s), Oral, TID, PRN Flonase 0.05 mg/inh nasal spray, 1 spray(s), Nasal, BID ibuprofen, Not taking loratadine-pseudoephed rine 5 mg-120 mg ER Tab, 1 tab(s), Oral, q12hr naproxen 500 mg Tab, 500 mg= 1 tab(s), Oral, BID, PRN Protonix 40 mg Tab-EC, 40 mg= 1 tab(s), Oral, Daily Zithromax TRI-EUGENIA 500 mg oral tablet, 500 mg= 1 tab(s), Oral, Daily Zofran ODT 4 mg Tab, 4 mg= 1 tab(s), Oral, q6hr, PRN Allergies sulfa drugs (Rash) Social History Alcohol - Denies Alcohol Use, 03/08/2018 Current, 07/08/2019 Current, 05/16/2019 Substance Abuse - Denies Substance Abuse, 04/24/2019 Current, 07/08/2019 Tobacco - High Risk, 06/18/2022 5-9 cigarettes (between 1/4 to 1/2 pack)/day in last 30 days Tobacco Use:. Cigarettes, 06/18/2022 Lab Results Rapid COVID Ag: Not Detected (06/18/22 12::) Rapid COV Int NEG Ctl: Pass (06/18/22 12::00) Rapid COV Int POS Ctl: Pass (06/18/22 12::00) First Test: Unknown (06/18/22 12::) Employed in Healthcare: NO (06/18/22 12::) Symptomatic as defined by CDC: YES (06/18/22 12::) Hospitalized?: Unknown (06/18/22::) ICU: NO (06/18/22::) Resides in a Congregate Care Setting: NO (06/18/22 12:26 (more content not included)... Normal [facility] Comment on above: Result Comment: Elec tronically Signed By: Grant Jacob PA-C\.br\Date and Time Signed: 06/18/22 13:19 EDT\.br\Electronically Co-Signed By: Connor Castellanos DO\.br\Date and Time Co-Signed: 06/18/22 20:19 EDT ED Patient Education Noteon 06-18-2022 ED Patient Education Note Infectious Disease Upper Respiratory Infection, Adult An upper respiratory infection (URI) is a common viral infection of the nose, throat, and upper air passages that lead to the lungs. The most common type of URI is the common cold. URIs usually get better on their own, without medical treatment. What are the causes? A URI is caused by a virus. You may catch a virus by: ? Breathing in droplets from an infected person's cough or sneeze. ? Touching something that has been exposed to the virus (contaminated) and then touching your mouth, nose, or eyes. What increases the risk? You are more likely to get a URI if: ? You are very young or very old. ? It is darshan or winter. ? You have close contact with others, such as at a daycare, school, or health care facility. ? You smoke. ? You have long-term (chronic) heart or lung disease. ? You have a weakened disease-fighting (immune) system. ? You have nasal allergies or asthma. ? You are experiencing a lot of stress. ? You work in an area that has poor air circulation. ? You have poor nutrition. What are the signs or symptoms? A URI usually involves some of the following symptoms: ? Runny or stuffy (congested) nose. ? Sneezing. ? Cough. ? Sore throat. ? Headache. ? Fatigue. ? Fever. ? Loss of appetite. ? Pain in your forehead, behind your eyes, and over your cheekbones (sinus pain). ? Muscle aches. ? Redness or irritation of the eyes. ? Pressure in the ears or face. How is this diagnosed? This condition may be diagnosed based on your medical history and symptoms, and a physical exam. Your health care provider may use a cotton swab to take a mucus sample from your nose (nasal swab). This sample can be tested to determine what virus is causing the illness. How is this treated? URIs usually get better on their own within 7?10 days. You can take steps at home to relieve your symptoms. Medicines cannot cure URIs, but your health care provider may recommend certain medicines to help relieve symptoms, such as: ? Vrkg-mmp-zpqxdpn cold medicines. ? Cough suppressants. Coughing is a type of defense against infection that helps to clear the respiratory system, so take these medicines only as recommended by your health care provider. ? Fever-reducing medicines. Follow these instructions at home: Activity ? Rest as needed. ? If you have a fever, stay home from work or school until your fever is gone or until your health care provider says you are no longer contagious. Your health care provider may have you wear a face mask to prevent your infection from spreading. Relieving symptoms ? Gargle with a salt-water mixture 3?4 times a day or as needed. To make a salt-water mixture, completely dissolve ??1 tsp of salt in 1 cup of warm water. ? Use a cool-mist humidifier to add moisture to the air. This can help you breathe more easily. Eating and drinking ? Drink enough fluid to keep your urine pale yellow. ? Eat soups and other clear broths. General instructions ? Take yasz-vja-ohkzbyg and prescription medicines only as told by your health care provider. These include cold medicines, fever reducers, and cough suppressants. ? Do not use any products that contain nicotine or tobacco, such as cigarettes and e-cigarettes. If you need help quitting, ask your health care provider. ? Stay away from secondhand smoke. ? Stay up to date on all immunizations, including the yearly (annual) flu vaccine. ? Keep all follow-up visits as told by your health care provider. This is important. How to prevent the spread of infection to others ? URIs can be passed from person to person (are contagious). To prevent the infection from spreading: ? Wash your hands often with soap and water. If soap and water are not available, use hand machine pecan gatherer. ? Avoid touching your mouth, face, eyes, or nose. ? Cough or sneeze into a tissue or your sleeve or elbow instead of into your hand or into the air. Contact a health care provider if: ? You are getting worse instead of better. ? You have a fever or chills. ? Your mucus is brown or red. ? You have yellow or brown discharge coming from your nose. ? You have pain in your face, especially when you bend forward. ? You have swollen neck glands. ? You have pain while swallowing. ? You have white areas in the back of your throat. Get help right away if: ? You have shortness of breath that gets worse. ? You have severe or persistent: ? Headache. ? Ear pain. ? Sinus pain. ? Chest pain. ? You have chronic lung disease along with any of the following: ? Wheezing. ? Prolonged cough. ? Coughing up blood. ? A change in your usual mucus. ? You have a stiff neck. ? You have changes in your: ? Vision. ? Hearing. ? Thinking. ? Mood. Summary ? An upper respiratory infection (URI) is a common infecti (more content not included)... Normal [facility] ED Patient Summaryon 022 ED Patient Summary [address] [address] Patient Discharge Instructions Person Information Name: LEENA INTERIANO Age: 32 Years Arrival Date: 06/18/2022 11:56:54 Discharge Diagnosis: Upper respiratory infection Primary Care Physician: BENTLEY LUCERO CNP Provider Information Primary Provider: Connor Castellanos DO [facility] Practitioner:Grant Jacob PA-C The exam and treatment you received in the Emergency Department were for an urgent problem and are not intended as complete care. It is important that you follow up with a doctor, nurse practitioner, or physician?s higher level teaching assistant for ongoing care. If your symptoms become worse or you do not improve as expected and you are unable to reach your usual health care provider, you should return to the Emergency Department. We are available 24 hours a day. LEENA INTERIANO has been given the following list of patient education materials, prescriptions and follow-up instructions: Follow-up Instructions: With: Address: When: BENTLEY LUCERO [address] [place] [address] Business (1) In 3 days 06/21/2022 In the event that this physician does not participate in your insurance network, please consult with your insurance company to find a nearby participating provider. Patient Education Materials: Upper Respiratory Infection, Adult A MESSAGE TO ALL PATIENTS REGARDING OPIOIDS PRESCRIPTION OPIOIDS: WHAT YOU NEED TO KNOW Prescription opioids can be used to help relieve hsaexubm-kh-fpmekh pain and are often prescribed following a surgery or injury, or for certain health conditions. These medications can be an important part of the treatment but also come with serious risks. It is important to work with your healthcare provider to make sure you are getting the safest, most effective care. WHAT ARE THE RISKS AND SIDE EFFECTS OF OPIOID USE? Prescription opioids carry serious risks of addiction and overdose, especially with prolonged use. An opioid overdose, often marked by slowed breathing, can cause sudden . The use of prescription opioids can have a number of side effects as well, even when taken as directed: ? Tolerance?meaning you might need to take more of the medication for the same pain relief ? Physical dependence?meaning you have symptoms of withdrawal when a medication is stopped ? Increased sensitivity to pain ? Constipation ? Nausea, vomiting, and dry mouth ? Sleepiness and dizziness ? Confusion ? Depression ? Low levels of testosterone that can result in lower sex drive, energy, and strength ? Itching and sweating RISKS ARE GREATER WITH: ? History of drug misuse, substance use disorder, or overdose ? Mental health conditions (such as depression or anxiety) ? Sleep apnea ? Older age (65 years and older) ? Avoid alcohol while taking prescription opioids. Also, unless specifically advised by your health care provider, medications to avoid include: ? Benzodiazepines (such as Xanax or Valium) ? Muscle relaxants (such as Soma or Flexeril) ? Hypnotics (such as Ambien or Lunesta) ? Other prescription opioids KNOW YOUR OPTIONS Talk to your health care provider about ways to manage your pain that don?t involve prescription opioids. Some of these options may actually work better and have fewer risks and side effects. Options may include: ? Pain relievers such as acetaminophen, ibuprofen, and naproxen ? Some medication that are also used for depression or seizures ? Physical therapy and exercise ? Cognitive behavioral therapy, a psychological, goal-directed approach, in which patients learn how to modify physical, behavioral, and emotional triggers of pain and stress. IF YOU ARE PRESCRIBED OPIOIDS FOR PAIN: ? Never take opioids in greater amounts or more often than prescribed. ? Follow up with your primary health care provider. o Work together to create a plan on how to manage your pain. o Talk about ways to help manage your pain that don?t involve prescription opioids. o Talk about any and all concerns and side effects. ? Help prevent misuse and abuse o Never sell or share prescription opioids. o Never use another person?s prescription opioids. ? Store prescription opioids in a secure place and out of reach of others (this may include visitors, children, friends, and family). ? Safely dispose of unused prescription opioids: Find your community drug take-back program or your pharmacy mail-back program, or flush them down the toilet, following guidance from the Food and Drug Administration (www.fda.gov/Drugs/Res ourcesForYou). ? Visit www.cdc.gov/drugoverdo se to learn about the risks of opioids abuse and overdose. ? If you believe you may be struggling with addiction, tell your health day care supervisor and ask for guidance or call SAMHSA?S National Helpline at 6-641-750-HELP. v [facility] (more content not included)... Normal [facility] MICRO OTHER TESTSOrdered By: Olivia Garza on 06-18-2022 Rapid COV Int NEG Ctl Pass (06/18/22 12:26 PM) Normal [facility] [place] S[place] Rapid COV Int POS Ctl Pass (06/18/22 12:26 PM) Normal [facility] Man Sero SARS-CoV+SARS-CoV-2 (COVID-19) Ag IA.rapid Ql (Resp) Not Detected (06/18/22 12:26 PM) Normal Not Detected [facility] Man [facility] Rapid COVID Antigen ([facility]on 06-18-2022 Rapid COV Int NEG Ctl Pass Normal [facility] Comment on above: Performed By: #### 2 [id number] ####[facility] [id number] [place] [address] Rapid COV Int POS Ctl Pass Normal [facility] Comment on above: Performed By: #### 2 [id number] ####[place] [id number] [place] [address] SARS-CoV+SARS-CoV-2 (COVID-19) Ag IA.rapid Ql (Resp) Not detected Normal Not Detected [facility] Comment on above: Result Comment: The [employer]? System for Rapid Detection of SARS-CoV-2 is a chromatographic digital immunoassay intended for the direct and qualitative detection of SARS-CoV-2 nucleocapsid antigens in nasal swabs from individuals who are suspected of COVID-19 by their healthcare provider within the first five days of the onset of symptoms. Negative results should be treated as presumptive, do not rule out SARS-CoV-2 infection and should not be used as the sole basis for treatment or patient management decisions, including infection control decisions. Negative results should be considered in the context of a patient?s recent exposures, history and the presence of clinical signs and symptoms consistent with COVID-19, and confirmed with a molecular assay, if necessary, for patient management. For in vitro diagnostic use. In the [place], only for use under an Emergency Use Authorization. In the [place], this test has not been FDA cleared or approved; this test has been authorized by FDA under an EUA for use by authorized laboratories; use by laboratories certified under the CLIA, 42 U.S.C. ?263a, that meet requirements to perform moderate, high, or waived complexity tests and at the Point of Care (POC), i.e., in patient care settings operating under a CLIA Certificate of Waiver, Certificate of Compliance, or Certificate of Accreditation. This test has been authorized only for the detection of proteins from SARS-CoV-2, not for any other viruses or pathogens; and, in the [place], this test is only authorized for the duration of the declaration that circumstances exist justifying the authorization of emergency use of in vitro diagnostics for detection and/or diagnosis of the virus that causes COVID-19 under Section 564(b)(1) of the Act, 21 U.S.C. ? 360bbb-3(b)(1), unless the authorization is terminated or revoked sooner. Performed By: #### 2 [id number] ####[place] [address] ADMITTED TO INTENSIVE CARE UNIT FOR CONDITION OF INTEREST:FIND:PT: NO Normal [facility] Comment on above: Performed By: #### 2 [id number] ####[place] [address] EMPLOYED IN A HEALTHCARE SETTING:FIND:PT: NO Normal [facility] Comment on above: Performed By: #### 2 [id number] ####[place] [address] FIRST TEST FOR CONDITION OF INTEREST:FIND:PT: Unknown Normal [facility] Comment on above: Performed By: #### 2 [id number] ####[place] [address] HAS SYMPTOMS RELATED TO CONDITION OF INTEREST:FIND:PT: YES Normal [facility] Comment on above: Performed By: #### 2 [id number] ####[place] [address] HOSPITALIZED FOR CONDITION OF INTEREST:FIND:PT: Unknown Normal [facility] Comment on above: Performed By: #### 2 [id number] ####[place] [address] STATUS:FIND:PT: NO Normal [facility] Comment on above: Performed By: #### 2 [id number] ####[place] [address] RESIDES IN A CONGREGATE CARE SETTING:FIND:PT: NO Normal [facility] Comment on above: Performed By: #### 2 [id number] ####[facility] [id number] [place] [address] Coding Summary.on 06-02-2022 Coding Summary. CD:[id number] Gh 0bWw+PGhlYWQ+MG0KLJIwQ 41opJSirF6MB0kLYK2NZFR VOXISOT7GCT2zzML5UOefA 2VybiAv McxdzOMgGK84VKu0ASG7sL ltDRuohS3xnWMkX5j7NqBj MZ21eC45EAprFYZoVxK9Fn ZpbjsgbWFy A5qsCyNhlENqYbt+PHRhYm xlIHdpZHRoPScxMDAlJyBz hWqxGJ0aWv5yCTBlKVHqjV xhcHNlOiBj h8vuNROoZTanGH4ojFzpU0 EckED4QGIwd3e5Ci03gMV+ WXNrAHC1kIrlXOagv955Rg Vnd2ewXAG4 kLIcZJpsYMO8G00jb5O8FZ JeMTUtRPH9dYQ9lO4bsEqm jlzoA1MtlSDlVxE6WZC2kR KvqE3dnMuq qdfsgQ5fFhg+B64CXP8NXD RYNB0PQox3J4SwMsnpkZM+ ZR31TRBhZV46hWXeoDShw9 dpjGx3FbHz JGPnHMN8iAwxXQbpp1AtTA KkD03ppEFss4Z0ZYOxvGan xQFoCbLaxHL2tG6fKNjrhb hxb0ellmji Amnbs1tlyv01uJ35I89qCJ dvKPFrOCD9NXPoXOQfqKhs ik8mdC2qRo7+LNyrg4wci8 qudMs8VlSh HXRdndOrkGmfQFH0w9PgWx 06N9TnaCirz1VhZzt2ff90 sHAkb8W1nUT5KPunGOXfiM 7xFOueVtF8 GVFiCgAedT06sSXvGXmsAj 3fkDfqyDnoID2jWUQmihkt OCDrmK7vEDYhtVSjnQzrXH 4wNTBpbjtm q762KpVkJRY3GNUohSWtG0 PtbQ6tNaUqRHGcCKAoY6Mh bJPaKUnnJ936HCuyJiI0QN OwipQlL8Mj EIXxyAdbClG5w1Q2Ux8Vx4 QjsbzfANT8SRwxVGI6FoB5 WiFgPvW1B1GyMoy2DAAqqY htEW4bI2Bs GAJlgtualethvKF1SICgHD IzoL00pZQtTBjaVb5lp4T8 r161AWOvNBCwqD83Zf2chN ogMTBwdCBU gP0nuwcxv6bzctfyIjOsDK VqBCv4RZt7EATmcCgyMlNx TYM5ApG4NAY7pKFwoJ2mdP cyfyjofI9q Oyc+Q46wjJ3bZXN3NRR1aj auVQKqmsEpXU50EW33K0Gg PjwvdGFibGU+PGRpdiBzdH opIW2cWgGb h1tge2PaMGhuH1LaWSLiGL ocUrd7MCEdEYP1vZC3wB3f NSMaPMkbu5E7eQG2K1Ixuu Qggw1em2oj YBYwJAcyM02bhAQhx3D9RS DlxAH4TLFdtKdyIoNnzO73 Oyc+GCKviCvpj4ZhXjbsh5 hnd5gekJb2 VjFpYVIeegDyxAglZTN9b2 IaOv11G79cRAolMAOjGGTn TMLbYIHpnZabsr8naV3hUt 8+PGNvbCB3 wMN3pK8gXWJfLjP4QVgnM6 43VtKqdBPcUndrz7vun3fj mIp1OwDeILYxajCyjXpeCU T5v2YdGt79 D95wRTfbDZJwWEZjRCSzBQ LbnElzkx6njX8ePu3+PC9j t9jzfk05rV48hTV+PHRkIH E7jAkbLCjc WJEunA9sKCiuTkW1QFSySd MsaW73mYPbYPvaQi9qdSlt uQyoNT9zTDTxdvmxk618Xw Nkw8ewDMVz zZDhEQukGDK3A57kn7S7TB VjJLMoQDI5nUC2yO3rlNsp bjogbGVmdDsgdmVydGljYW clSSilM128 IHRvcDsnPlBhdGllbnQgTm AeLSa9O4TbVrn5KUJahSlz JC4rbWXgHWwmKo6ikXqpxL toVX7pRXRj hbypr972YyIdc0bzAWRwpA RzLRrcXHJ1L91ko4S1YFAr SCMoHGL9sNM5rA7ckNqhjb ogbGVmdDsg hxDptTthOAruSJnwW706IX RvcDsnPkJpcnRoIERhdGU6 ZI08RI70iVCxr2S7gWZ0S5 BhZGRpbmct yszbmZQ7RHYsMHYysM85Bb 3zeEhbEo7iKWDdGZC2LPNk hIWpY9FmtE1wRvGzFLCuMM MmV5YruBVr LVzcW940NNkcKwR1FHRcdp GlC7OuDFSpuQzkXbM1w0U1 Zj8KT3L3AY67SL63zBXpy5 O3jUH5B3It WVOjowzwltfcjKG6OJLlNO WuvQ22Gt0eoVpyWm5jAHLq NSI4KCUpmLCaI7EbqK0qZs AjMDAwMDAw S9SivVOhPPpqI394GJhySb Y4IKJodbWqW8OlLKXltTwk QiB1x3Y5Ah0NOYo9FP95WI 16cQHwe5Z4 pBV2R4LeJQEpimciwzlwhW C4GENhUBIfpS27Or1gvSep Jh4tMMDmDDR2HOEuzTZgW5 IoyO0rKnYh UGWnEXMrX2GwmJYsWYknS6 56HCxfNbR1CIYvpxRxO5Xi ZZSjfOwqVmV1x3U4Fm3IFF OaCE39EFL3 iZR5CR10JM91K0BjYojpiO FibGU+PHRhYmxlIHdpZHRo KLnsFBFcLfIqkPzsJZ6wGe 9yZGVyLWNv yEaikCUeNfWpc5pbJKOaWS ohQB9wlVmwC0KazND8SAOo x7x1Ev22P45fC6SykQZ+PG RcvLZ2pOC3 tY5kMiZvChW8MTrzW724Of YuyEDfAfcxc4iiw9jkoNb8 LnM3ARKfayNuwVlcDJB1q8 ZrPy35L84f IHdpZHRoPSIxNSUiIHZhbG atvp5ahT4wFl5+PGNvbCB3 ySM5fB5kAoKsVbI2DRspE4 49InRvcCIv Sqiwd5zty4vhnNn4RxQpVC YtcxPzjLfdCXG0b7FdYr47 K6GihRqdx8RkPdb0ud71hH New7Q3iIK3 L8AfILDvajlbsOVtjDwfFP 5tGXQavdviKZGbkS8oQAVz E2r3QvIhGvS3GGndX8Qhej E3BQBvcJWf MWlgJOR1E16qc3O3UOOiAU CkBRG1dFK5xH4ibAegshzx bGVmdDsgdmVydGljYWwtYW axT871DAAu lGcaLWOdyW3kMGGeqEAbrM zsLT8wNARawfqeZvpNWMba IEpBREEgTTwvdGQ+PHRkIH L6nQtaDTyu NFDldD2gYMIeJ9z4RqElTr S5GMvkS3VyFUFltbkmRd27 nD5kKmPxKyL9TZtmP9Jqqr S1VQPvpAWj ZGauVMO2C74ly9G2HTXnPB OtAXH3vAK3cL4udJhrqxss bGVmdDsgdmVydGljYWwtYW dfA694JEHx mUhyWmP5EdY9BxC0RVA1O1 GaYwx5JYBuxYwmLO5skDTk AAdcUz6vaZsukKxvZY2hFE BpbjtwYWRk cI4vYQHeyASmsBduWP0tNK Uqccfaw141AaZpSOA7BJNh eCVaO0BhzA5vBrAkWSJmAD ImD9OnsLQs DVdgL786QXrbUsF5HXXfea NoB6HwEVFigMhmIdE8n1C4 Ox6hDGQOEBPftquxrRF+PH UsUTT3hQan CPkbTUEsxZ3bTYKvF7f2Ik IcLnT7ZAlyD6JqXGGyluih We96qX9hQeZrAvA5WRmtE7 IbwkY1FZNn lMXgZNsbROA2F03mp5T9OU UoCXSpNQX8nIV9lR0arCdr bjogbGVmdDsgdmVydGljYW kpCScgE517 IHRvcDsnPkZlbWFsZTwvdG Q+SLCjFAN0oKaoHVrvOKMr iV8mLNYmO7g6DbJhFbL7LJ xeD5ZrCNHe rbohOy05xZ0tMmZlNiG9KM xaP8CecgY2IMQelRNlUVuu VNS8E49wy7W7OOZfSUNsSA I7iPR0gU7k bGlnbjogbGVmdDsgdmVydG whVSgjARpzB417QSIzwDmn KoRaYBYuNF5xcMoinWR+PC 79xh84I9No WngpHci1EMEtWNB3wZH3wC 3yEECtNCrht4L4mHN7E0Yh hoWuyj5nz3afKSGsCHnyI3 5loXCmy6W1 KSYpeSP7XLXoqJbxWhGrqM 93Oyc+ODTwaUvro0CbAhlz d6dzr8cotNt7AuZdRKKtjv FsaWduPSJ0 t1KdBf13P73sLJyyIRGvHC PxEBTnOCXqlKbhms0ssM1d Ii8+KOBvuAG8dIR3nC3pKt LyPfD2ZXgr S452NgTcnNDbKpicp7fsy1 zvhEu4OxTcXVVkdhVzzMmb ROI2s7ZfKc76Q1YmgAdhn9 RyMip0qv63 hOBqz9Y4hKA4Q9RwKDHljs vfbCSiqJhcSJ2iNXNingqu MXRewN6cAJFeA3i6YpRvFh P5EEgxC4Fq lkN8RTRxpEOdNRQhvGNDeA 4bobjlk7vhxtgvCuSjDAUl ACx2WXf3WSAqvXtjHbYeUA E4AyV4YVO6 tINqxG7lkQrlnrmkoO7jRt c+ZPw3f1lvtDQwCC9koKW1 PF15WP61pFCrb7J3jUT7Z8 BhZGRpbmct veeteIJ5YHWyBYNziG97Sv 8yoFptTq8kQGLhDLV5KWNa hMJaB6HvgE6jQxLeTCEiYV ElH1KiaMKl POiuJ202MTlkYtW7OPUpne PiM5IsWOSstPljKyI2y9F4 Ha3FSG93DB56PY23lXCfd5 A2tUQ7Z6Bk IJKgfnslcolwfXX7PMNyGO YbyJ81Ih6xgFujDl7tSJPo QHP7YNYqtYDiF0FkcQ3xYa AjMDAwMDAw X4YwgFRnOBidD398MOhlMi J6MUVtjfXvR4OxPNDfnXeg QiU3t0W2Ew4SSv09BX73UX 54vKGmz8D3 mIW4A9CkKOOpmzklvivagN W0YUNkSQZyxV81Rx8bpEra Ey1qWXSeWDV0GQUfnJQpV4 GjjH9yBzNf CWVyNAOiD9HtrTVpCCjyH2 36LUgaMlK1QJKdgtMbO7Ww PHRbjLisQcR9u4T2Pr4SAF zcmlm2J5Zh PjwvdHI+KX55PAEpWO16mK RczDDir3fxlXn4CkKkSYUx FUG1uMbiTEchq0QySHSvY4 9miUNvq7J7 IGNv (more content not included)... Normal [facility] Consent for Treatmenton 05-15 Consent for Treatment [id number]:[id number] Normal [facility] Discharge Instructionson Discharge Instructions [id number]:[id number] Normal [facility] ED Clinical Summaryon 2021 ED Clinical Summary [place] [id number] ED Clinical Summary Person Information Name: LEENA INTERIANO [facility] Age: 32 Years : 1990 Sex: Female Language: Sign Language PCP: BENTLEY LUCERO CNP Marital Status: Phone: [phone] Visit Id: Visit Reason: Medical screening exam; Back pain; HEAD AND BACK PAIN Speciality: Acuity: 4 Enc Type: Emergency Med Service: Emergency Arrival: 05/28/2022 10:43:04 Discharge: 05/28/2022 11:50:08 LOS: 000 01:07 Checkin: 05/28/2022 10:43:04 Checkout: 05/28/2022 11:50:08 Dispo Type: Home (Routine DC) EVENTS: Event Name Event Status Request Date/Time Start Date/Time Complete Date/Time Arrive Complete 05/28/2022 10:43:04 05/28/2022 10:43:04 05/28/2022 10:43:04 Document Home Meds Request 05/28/2022 10:43:04 Triage Complete 05/28/2022 10:43:04 05/28/2022 10:56:12 05/28/2022 10:56:12 Bed Assign Complete 05/28/2022 10:49:27 05/28/2022 10:49:27 05/28/2022 10:49:27 Dr Exam Complete 05/28/2022 10:49:27 05/28/2022 11:05:48 05/28/2022 11:05:48 RN Exam Complete 05/28/2022 10:49:27 05/28/2022 11:20:35 05/28/2022 11:20:35 Registration Complete 05/28/2022 11:05:48 05/28/2022 11:32:00 05/28/2022 11:32:00 Meds Admin Complete 05/28/2022 11:29:53 05/28/2022 11:48:32 Discharge Complete 05/28/2022 11:30:52 05/28/2022 11:50:13 05/28/2022 11:50:13 Reg Complete Request 05/28/2022 11:32:00 Reg Bed Request Complete 05/28/2022 11:32:00 05/28/2022 11:32:00 05/28/2022 11:32:00 Transfer Complete 05/28/2022 11:50:13 05/28/2022 11:50:13 05/28/2022 11:50:13 ADDRESS: [address] [place] [phone] PHYS DOC NOTES: MEDICAL INFORMATION: Prescriptions Given: New Medications [facility] 1985, [address] [facility] [place], [place] [id number], [phone] cyclobenzaprine (cyclobenzaprine 10 mg Tab) 1 Tablets By Mouth 3 times a day as needed Muscle pain. Refills: 0. methylPREDNISolone (Medrol 4 mg Tab) 1 Packets By Mouth As Directed for 6 Days. as directed on package labeling. Refills: 0. naproxen (naproxen 500 mg Tab) 1 Tablets By Mouth 2 times a day as needed for pain. Refills: 0. Medications to Continue with No Changes Other Medications amoxicillin azithromycin (Zithromax TRI-EUGENIA 500 mg oral tablet) 1 Tablets By Mouth every day. Refills: 0. cetirizine (cetirizine 10 mg Tab) 1 Tablets By Mouth every day. Refills: 0. fluticasone nasal (Flonase 0.05 mg/inh nasal spray) 1 Sprays Nasal Inhalation 2 times a day. each nostril. Refills: 0. ibuprofen ondansetron (Zofran ODT 4 mg Tab) 1 Tablets By Mouth every 6 hours as needed Nausea/Vomiting. Refills: 0. pantoprazole (Protonix 40 mg Tab-EC) 1 Tablets By Mouth every day. Refills: 0. PATIENT EDUCATION INFORMATION: Instructions: Sciatica; Tension Headache, Adult Follow up: With: Address: When: [facility] [address] [place] [address] [facility] (1Xention In 3 days 05/31/2022 Comments: Call the office of your primary care doctor to arrange for follow-up within the above-stated timeframe. Follow-up with your primary care doctor about this ED visit. You should review your labs, imaging, and diagnoses from this ED visit with your primary care physician. If you were prescribed medications you should discuss possible side-effects and drug interactions with your pharmacist. Call 911 or go to the nearest Emergency Department if you develop any new or worsening symptoms. Seek immediate medical attention if you develop: worsening headache, nausea, vomiting, confusion, weakness, loss of motion in your arms or legs, loss of control of your urine or stool, difficulty waking from sleep, neck pain, fever, or any new or worsening symptoms. Seek immediate medical attention if you develop: increasing pain, numbness, tingling, weakness, loss of motion in your arms or legs, loss of control of your urine or stool, fever, abdominal pain, chest pain, shortness of breath, or any new or worsening symptoms. DIAGNOSIS: Chronic left-sided low back pain with left-sided sciatica; Headache; Other chronic pain Normal [facility] ED Note-Physicianon 05-28-20 ED Note-Physician Basic Information Time Seen: Connor Castellanos DO 05/28/2022 11:05 Chief Complaint pt c/o hard spot on left side of head that is painful that she noticed last night. she also c/o lower back pain that started a long time ago. injury to it five months ago. History of Present Illness 32-year-old female to the emergency department with chief complaint of left-sided headache that is been mild, tension-like. She has had similar headaches. Not worst headache of life. No numbness, weakness, tingling, vision changes, difficulty walking. She has had similar headaches in the past. She also has some low back pain that started several months ago. She injured it at work. She denies any numbness, weakness, tingling, no saddle anesthesia or incontinence. No recent falls or injuries. Review of Systems A 10 point review of systems is negative except as noted above. Medical and Surgical History: Reviewed and noted Social history: Lives at home Tobacco: Denies Physical Exam Vitals & Measurements T: 37.0 ?C(Oral) HR: 67(Peripheral) RR: 18 BP: 140/97 SpO2: 98% HT: 165 cm HT: 165.0 cm WT: 86 kg WT: 86.0 kg BMI: 31.59 VITALS: I have reviewed the triage vital signs. GENERAL: Well developed, well appearing adult in no acute distress. NEURO: Alert and oriented. Moves all extremities. Face is symmetric and expressive. Patellar reflexes brisk and equal bilaterally. Normal gait. Plantar flexion/dorsiflexion, knee flexion/extension, hip flexion/extension are grossly intact with 5/5 strength. Sensation is intact across the bilateral lower extremities. SPINE: No midline cervical, thoracic, or lumbar tenderness. No step-off or deformities. No paraspinal muscle tenderness or increased tone. EYES: PERRL. No scleral icterus or conjunctival injection. No discharge. HENT: Normocephalic, atraumatic. Hearing is grossly intact. Nares grossly patent and without discharge. Mucous membranes moist. NECK: No JVD. Patient moves neck without restriction. CARDIO: Rhythm regular. Normal rate. No murmur, rub, or gallop. Pulses equal bilaterally in the upper and lower extremity. No lower extremity edema. PULM: Lungs clear to auscultation in all barakat. No wheezes, rales, or rhonchi. No conversational dyspnea. No splinting, stridor, or accessory muscle use. GI/: Abdomen is soft and non-tender. Normoactive bowel sounds. No flank tenderness. EXTREMITIES: Symmetric muscle bulk. No joint swelling. No clubbing, cyanosis, or deformity. SKIN: Warm and dry. Normal turgor. No rash or lesions appreciated. PSYCH: Mood, affect, and interaction is appropriate to the setting. Medical Decision Making Well-appearing 32-year-old female to the emergency department with chief complaint of mild left-sided headache and mild chronic left-sided low back pain. She is deaf. 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 Med student who accompanies me is fluent in sign language. Patient is comfortable using him as museum guide. No indication for imaging of a acute on chronic headache. No indication for imaging of her chronic back pain. She agrees with plan for symptomatic treatment. She will follow-up with PCP. Norflex and Toradol were given in the ED. Symptoms improved. She is given prescription for similar medications for home. Return precaution discussed. All questions were answered. Patient was discharged home. Assessment/Plan Chronic left-sided low back pain with left-sided sciatica (M54.42: Lumbago with sciatica, left side) Headache (R51.9: Headache, unspecified) Other chronic pain (G89.29: Other chronic pain) Orders: cyclobenzaprine, 10 mg = 1 tab(s), Oral, TID, PRN Muscle pain, # 15 tab(s), Refills(s) 0, [facility], 165, cm, 05/28/22 10:56:00 EDT, Height/Length Dosing, 86, kg, 05/28/22 10:56:00 EDT, Weight Dosing ketorolac, 30 mg = 1 mL, Injection, IntraMuscular, Once, Stop date 05/28/22 11:29:00 EDT, STAT, Start date 05/28/22 11:29:00 EDT, 05/28/22 11:29:00 EDT methylPREDNISolone, = 1 packet(s), Oral, As Directed, as directed on package labeling, X 6 day(s), # 21 tab(s), Refills(s) 0, Pharmacy: [facility], 165, cm, 05/28/22 10:56:00 EDT, Height/Length Dosing, 86, kg, 05/28/22 10:56:00 EDT, Weight Dosing naproxen, 500 mg = 1 tab(s), Oral, BID, PRN for pain, # 20 tab(s), Refills(s) 0, Pharmacy: [facility], 165, cm, 05/28/22 10:56:00 EDT, Height/Length Dosing, 86, kg, 05/28/22 10:56:00 EDT, Weight Dosing orphenadrine, 60 mg = 2 mL, Injection, IntraMuscular, Once, Stop date 05/28/22 11:29:00 EDT, STAT, Start date 05/28/22 11:29:00 EDT, 05/28/22 11:29:00 EDT Medications Administered Given ketorolac 30 mg/mL Inj 1 mL, 30 mg, IntraMuscular orphenadrine 30 mg/mL Inj, 60 mg, IntraMuscular Disposition Plan Patient Discharge Condition Stable Discharge Disposition Home Discharge Prescription List Prescriptions cyclobenzaprine 10 mg Tab, 10 mg= 1 tab(s), Oral, TID, PRN Medrol 4 mg Tab, 1 packet(s), Oral, As Directed naproxen 500 mg Tab, 500 mg= 1 (more content not included)... Normal [facility] Comment on above: Result Comment: Elec tronically Signed By: Connor Castellanos DO\.br\Date and Time Signed: 05/28/22 20:29 EDT ED Patient Education Noteon 05-28-2022 ED Patient Education Note Neurology Tension Headache, Adult A tension headache is a feeling of pain, pressure, or aching in the head that is often felt over the front and sides of the head. The pain can be dull, or it can feel tight (constricting). There are two types of tension headache: ? Episodic tension headache. This is when the headaches happen fewer than 15 days a month. ? Chronic tension headache. This is when the headaches happen more than 15 days a month during a 3-month period. A tension headache can last from 30 minutes to several days. It is the most common kind of headache. Tension headaches are not normally associated with nausea or vomiting, and they do not get worse with physical activity. What are the causes? The exact cause of this condition is not known. Tension headaches are often triggered by stress, anxiety, or depression. Other triggers include: ? Alcohol. ? Too much caffeine or caffeine withdrawal. ? Respiratory infections, such as colds, flu, or sinus infections. ? Dental problems or teeth clenching. ? Tiredness (fatigue). ? Holding your head and neck in the same position for a long period of time, such as while using a computer. ? Smoking. ? Arthritis of the neck. What are the signs or symptoms? Symptoms of this condition include: ? A feeling of pressure or tightness around the head. ? Dull, aching head pain. ? Pain over the front and sides of the head. ? Tenderness in the muscles of the head, neck, and shoulders. How is this diagnosed? This condition may be diagnosed based on your symptoms, your medical history, and a physical exam. If your symptoms are severe or unusual, you may have imaging tests, such as a CT scan or an MRI of your head. Your vision may also be checked. How is this treated? This condition may be treated with lifestyle changes and with medicines that help relieve symptoms. Follow these instructions at home: Managing pain ? Take vdwu-pwt-mtpmwle and prescription medicines only as told by your health care provider. ? When you have a headache, lie down in a dark, quiet room. ? If directed, apply ice to the head and neck: ? Put ice in a plastic bag. ? Place a towel between your skin and the bag. ? Leave the ice on for 20 minutes, 2?3 times a day. ? If directed, apply heat to the back of your neck as often as told by your health care provider. Use the heat source that your health care provider recommends, such as a moist heat pack or a heating pad. ? Place a towel between your skin and the heat source. ? Leave the heat on for 20?30 minutes. ? Remove the heat if your skin turns bright red. This is especially important if you are unable to feel pain, heat, or cold. You may have a greater risk of getting burned. Eating and drinking ? Eat meals on a regular schedule. ? Limit alcohol intake to no more than 1 drink a day for non women and 2 drinks a day for men. One drink equals 12 oz of beer, 5 oz of wine, or 1? oz of hard liquor. ? Drink enough fluid to keep your urine pale yellow. ? Decrease your caffeine intake, or stop using caffeine. Lifestyle ? Get 7?9 hours of sleep each night, or get the amount of sleep recommended by your health care provider. ? At bedtime, remove all electronic devices from your room. Electronic devices include computers, phones, and tablets. ? Find ways to manage your stress. Some things that can help relieve stress include: ? Exercise. ? Deep breathing exercises. ? Yoga. ? Listening to music. ? Positive mental imagery. ? Try to sit up straight and avoid tensing your muscles. ? Do not use any products that contain nicotine or tobacco, such as cigarettes and e-cigarettes. If you need help quitting, ask your health care provider. General instructions ? Keep all follow-up visits as told by your health care provider. This is important. ? Avoid any headache triggers. Keep a headache journal to help find out what may trigger your headaches. For example, write down: ? What you eat and drink. ? How much sleep you get. ? Any change to your diet or medicines. Contact a health care provider if: ? Your headache does not get better. ? Your headache comes back. ? You are sensitive to sounds, light, or smells because of a headache. ? You have nausea or you vomit. ? Your stomach hurts. Get help right away if: ? You suddenly develop a very severe headache along with any of the following: ? A stiff neck. ? Nausea and vomiting. ? Confusion. ? Weakness. ? Double vision or loss of vision. ? Shortness of breath. ? Rash. ? Unusual sleepiness. ? Fever. ? Trouble speaking. ? Pain in your eyes or ears. ? Trouble walking or balancing. ? Feeling faint or passing out. Summary ? A tension headache is a feeling of pain, pressure, or aching in the head that is often felt over the front and sides of the head. ? A tension headache can last from 30 minutes to several days. It is the most common (more content not included)... Normal [facility] ED Patient Summaryon 022 ED Patient Summary [address] [address] Patient Discharge Instructions Person Information Name: LEENA INTERIANO Age: 32 Years Arrival Date: 05/28/2022 10:43:04 Discharge Diagnosis: Chronic left-sided low back pain with left-sided sciatica; Headache; Other chronic pain Primary Care Physician: BENTLEY LUCERO CNP Provider Information Primary Provider: Connor Castellanos DO [facility] Practitioner:None The exam and treatment you received in the Emergency Department were for an urgent problem and are not intended as complete care. It is important that you follow up with a doctor, nurse practitioner, or physician?s higher level teaching assistant for ongoing care. If your symptoms become worse or you do not improve as expected and you are unable to reach your usual health care provider, you should return to the Emergency Department. We are available 24 hours a day. LEENA INTERIANO has been given the following list of patient education materials, prescriptions and follow-up instructions: Follow-up Instructions: With: Address: When: BENTLEY LUCERO [address] [place] [address] [employer] ([employer] In 3 days 05/31/2022 Comments: Call the office of your primary care doctor to arrange for follow-up within the above-stated timeframe. Follow-up with your primary care doctor about this ED visit. You should review your labs, imaging, and diagnoses from this ED visit with your primary care physician. If you were prescribed medications you should discuss possible side-effects and drug interactions with your pharmacist. Call 911 or go to the nearest Emergency Department if you develop any new or worsening symptoms. Seek immediate medical attention if you develop: worsening headache, nausea, vomiting, confusion, weakness, loss of motion in your arms or legs, loss of control of your urine or stool, difficulty waking from sleep, neck pain, fever, or any new or worsening symptoms. Seek immediate medical attention if you develop: increasing pain, numbness, tingling, weakness, loss of motion in your arms or legs, loss of control of your urine or stool, fever, abdominal pain, chest pain, shortness of breath, or any new or worsening symptoms. In the event that this physician does not participate in your insurance network, please consult with your insurance company to find a nearby participating provider. Patient Education Materials: Sciatica; Tension Headache, Adult A MESSAGE TO ALL PATIENTS REGARDING OPIOIDS PRESCRIPTION OPIOIDS: WHAT YOU NEED TO KNOW Prescription opioids can be used to help relieve jesrptxi-vm-fcqqvc pain and are often prescribed following a surgery or injury, or for certain health conditions. These medications can be an important part of the treatment but also come with serious risks. It is important to work with your healthcare provider to make sure you are getting the safest, most effective care. WHAT ARE THE RISKS AND SIDE EFFECTS OF OPIOID USE? Prescription opioids carry serious risks of addiction and overdose, especially with prolonged use. An opioid overdose, often marked by slowed breathing, can cause sudden . The use of prescription opioids can have a number of side effects as well, even when taken as directed: ? Tolerance?meaning you might need to take more of the medication for the same pain relief ? Physical dependence?meaning you have symptoms of withdrawal when a medication is stopped ? Increased sensitivity to pain ? Constipation ? Nausea, vomiting, and dry mouth ? Sleepiness and dizziness ? Confusion ? Depression ? Low levels of testosterone that can result in lower sex drive, energy, and strength ? Itching and sweating RISKS ARE GREATER WITH: ? History of drug misuse, substance use disorder, or overdose ? Mental health conditions (such as depression or anxiety) ? Sleep apnea ? Older age (65 years and older) ? Avoid alcohol while taking prescription opioids. Also, unless specifically advised by your health care provider, medications to avoid include: ? Benzodiazepines (such as Xanax or Valium) ? Muscle relaxants (such as Soma or Flexeril) ? Hypnotics (such as Ambien or Lunesta) ? Other prescription opioids KNOW YOUR OPTIONS Talk to your health care provider about ways to manage your pain that don?t involve prescription opioids. Some of these options may actually work better and have fewer risks and side effects. Options may include: ? Pain relievers such as acetaminophen, ibuprofen, and naproxen ? Some medication that are also used for depression or seizures ? Physical therapy and exercise ? Cognitive behavioral therapy, a psychological, goal-directed approach, in which patients learn how to modify physical, behavioral, and emotional triggers of pain and stress. IF YOU ARE PRESCRIBED OPIOIDS FOR PAIN: ? Never take opioids in greater amounts or mo (more content not included)... [facility] Prescriptions/Work Noteson 0 05-28-2022 Prescriptions/Work Notes [id number]#1. 00CD:127 [facility] Consent for Treatmenton 08 Consent for Treatment [id number]#1. 00CD:127 [facility] PT - Assessmentson PT - Assessments [id number]#1. 00CD:127 [facility] PT - Consentson 04-24-2022 PT - Consents [id number]#1. 00CD:127 [facility] PT - Home Exercise Programon 04-24-2022 PT - Home Exercise Program [id number]#1. 00CD:127 [facility] PT - Home Exercise Program [id number]#1. 00CD:127 [facility] PT - Otheron 04-24-2022 PT - Other [id number]#1. 00CD:127 [facility] Coding Summary.on 03-26-2022 Coding Summary. CD:[id number] Gh 0bWw+PGhlYWQ+EG0TLFMjD 76udINxhD7TO2kWOW5GGOJ KWPDGHI2SPR7dcBR5PFjsH 2VybiAv CksugUTsKQ06SPu9YKQ7wD nwNGjgfB8xuWIqM1j0CoPx UB21kU93LVasANQxOiX9Ji ZpbjsgbWFy N6mpOcUlePZqTmw+PHRhYm xlIHdpZHRoPScxMDAlJyBz fTnzVL8sXa0yMDGzSANbzD xhcHNlOiBj m4hwTSOqYMhpKY0dcDwpQ7 HybQP6CQDkm2z4Wq32wNY+ EVRrUAO1zYupKYgrr120Ny Hgb4qsLQU1 iILxJCegVHU7H11ud6A8TD BzHJEhVDX9hIW6lQ4iwHsw wveeV7ComCKwDiB5XAB1sT GtgE6owSua zmkkqA7iXdx+W31IBB4IND TNYZ3KCan2U2HfVlmwsLF+ WE56EOJhTP24uVKlaWTag8 ohgXv1YqSe MZNuQQA3eJguNDwjv5WkXA KaG81qaIIcb2W0WXSysHqf dWSuXyChrJP7qF6zBRnfuw ilc9ybkaht Jdrml9ygea93aD60W94kWZ txKPHmXEH4IFRcEFWctEwa lq2odQ2zHz2+LPili2ykw2 qerBw4VyTt UHHdaoJirShuAPM8h1VjFq 18O4RqqGbqg0OaXfx4bn24 jIPkz3P9tVC6WYxuXATzoW 6wUFytCdX7 IRRjHuGjaJ59cORwXMttUs 8gvConbVfpHX5pCBYylqqm WXDuyW6cGIOgsPBxoSdwKJ 4wNTBpbjtm t179KpKzDPF6OGBxmJYyD7 LqhS1cXwXnKMUlSCEwI4Rb iWVzVHtkU460KJvjAjX1ID DwdfArQ2Gi GBDpuNntVfR9d4K6Rr9Iv2 GwekzyITV1RXujIPK6QeUj PoHuFkC0C6TeEdr6NJDreE ubZS0fC2Gn RIYbxzawmephcXI3QQRnPC EixW84iOYiPZgwNt3ir2U3 y732TDFiGRVbbK79Gr6sjP ogMTBwdCBU dO5pmbvas5snmcctKsBnKB SeEHv7HLa1BACzdZcwExVc XFH0HhY2OKO0ePAuyQ5kbA xwxdrdxB5x Oyc+F16bhW6nLAN8MCT8uo pnNIMidkZaRK87ZA67Y0Le PjwvdGFibGU+PGRpdiBzdH vfXR0mWhBs q3kse1NgGLopY0XaVHRzFC dlGkf0UCCcEUT2bHR4wI7s XTNxYOckf7H1jGF5M5Ryck Cgvl5rx4ie YRDjSPxaN57joIMcd2K8DY ZujWW0VFJqqCpwJwEgzO81 Oyc+DXDbcDvvm6WaByavd5 pcv5jfjKj4 IdChZEWgiqSxiSwsUCY0i9 NiTr74O09eZMbgBKEvNKZv FZNqUFJicJratf0kjB0jYm 8+PGNvbCB3 uLG5lP1sNTSwFhM0ODunP8 87WxFanZWmAhvzv5taa1kl oFv1GbNvGBJcreVrsZzfMH D4o1OlWd48 L92jOYvvSLKbGDUfTRFpRI CrzBoixg6oiH4oDh3+PC9j j3gokx74kN73mXY+PHRkIH R8tWlfJPqw BMKuyC0jMHdyBsJ4RMKdTf BdgV83fZMnMXzmWr9grBgq zDufSA0dMXTfdvwkt436Dr Vsg1afJYOg mAEwJOvaQUK5K97gs5I4RE KeDSQjLWH7nJW6oJ8zlCwv bjogbGVmdDsgdmVydGljYW oxWKgdD558 IHRvcDsnPlBhdGllbnQgTm QdVTf0T2FbSla6JMLsxMig VS0xdVMfUFbrYx5sjYxwqX mqCR5rYYLw ijwff747DjVmo6jvCQLouK PiNMlqFZG0T44ip7H9OADs HGZfRES5zKV2vG0muTpmjp ogbGVmdDsg vkWljMzpJBqaTWfbW506QJ RvcDsnPkJpcnRoIERhdGU6 GR13OK63eJWlc3X6sET1S1 BhZGRpbmct vclbrMZ9VCYwLHFysA54Vw 0msZtoSk8nLNXcUVC6IAAk sCRvW7ZmcB5eLpJaXMSqNK YrT9YfyLYm VPteA436UPlbNxA0XCIagz BgT2CcUZSaaGelSuJ7t4Z8 Jt2CS8B8QV33LT73nNXxv6 C1xAU4W7Kk OGKytazsynltkBS3TCWcUX BpdO89Uw2aiRtaGp2jEIRi LMQ4CTQhjZChZ7UbzF2fCu AjMDAwMDAw S8FoaUJmDRzfI657CDqlCn I4NGLiyzYkX8KyKZIngPgw DwO6d0U5Bv1NETb3EL48HL 19xJVsc8W6 zMI8X7ZcPQEtaftamrltzY G0CPAtXYYmkN32Hk1xrKbx Sz4rZYQgUEX2ULIfrQIuX1 NciW0sZhQj ZZHaAQSrK8BdrZVqHCzcF0 00AOysVnX4XYPrboAqN3Ce SPUetNwoNqF5x1V5Xu3VSM DjTR96GVS2 vXA4AU11TT19A9NxLyeslJ FibGU+PHRhYmxlIHdpZHRo WQvvMVNtUfPxgWlgVK6nBu 9yZGVyLWNv qDddoWYoBlZpv7riAJSpPJ wwBO8jlHpkQ1YzvHL4LTPm f3x2Yo32X92cB4CphDO+PG NgqBK3yVF9 tN5cEyKhXgI8DLvpF115Ha CutKKyKjhnd7qcu8kvaLc8 UyC3ZBMuzeZkdVmwRBJ0c2 JgBm16V11b IHdpZHRoPSIxNSUiIHZhbG qrtl3uvD2iWv6+PGNvbCB3 bLJ5qG7hBeUiXoD9AHooX7 49InRvcCIv Cxqmn4hdc0mviDy7QmCkWR RkjeStaPdwNIB6d6UhLw27 C3ZygBzsa1AyTbp2lc41cE Yly0U6wOO5 X4RaJWEwywzmbLRqkVunYJ 4oGLHlqxiiPIOmpO0tCROd M8a4AmVeZaY0ZWslN1Dujd D4VBSoaWNw FNarBLQ7P81xs8H5XXVjKE DxNRE8yRC0eI7tlFsrubek bGVmdDsgdmVydGljYWwtYW wzH061MZBo mStwVNPrzI1aCOHonVLugB fwEA0dKYNawgosRyrZTVkn IEpBREEgTTwvdGQ+PHRkIH L1vEdgVPge JVIhzO1jWCWnC8s5KkQuNs Z9GNboS6IuRGMmiikkIx61 vF4wQbZyFxQ7EHneD2Hovl F2TYUfpQWi CXmyDLL5B30hj4B3HKSmLT FxFAC5rEG5wO8ezZrhenxn bGVmdDsgdmVydGljYWwtYW ruB636NSLe dIjtBlU6GeZ6KhH7FWD2M5 JzRud2EULskCrxRU3qgBXv KXkjUv0vsGhbeJzwXZ1dIT BpbjtwYWRk nT2eDMCucNAmfOhdTZ8eTG Aivmmck922XnXaFDN8KWJn nOHyV6XvdF9oVtDhSAJhSS YwU6CumGSn UXjsP602CNepJnF7GTPcmy MnS7SuPUNjcQyxNaO7e2E1 Jy1uSWQHZLIvggictSQ+PH XsPOP8qKrl ZFylLFWybW9qIKRvN7c0Kh GdNtS6WBioD5MwMKCnmfbw Ur09bU5dMuCnJeZ5WJbnS8 NwsuV7IJMd pXJwGLbqDOH7C76xj4X5MB LeNCAnKTS4yAY5rO3ttIhe bjogbGVmdDsgdmVydGljYW hiCXtwD849 IHRvcDsnPkZlbWFsZTwvdG Q+INNjKKO7gPqwFTvuCBCw cN4uUHFsI9z0GtEuKzP6DS rbX2PeEKIj ajlgVv51fM8uXfZvEaU9XT qtE5EgaiT6VINilKTvOBrb JEP1L54jw2Q0CNCaCRFyBJ P8iZA9qY9w bGlnbjogbGVmdDsgdmVydG nuDBliDUfgH114ZNGqkZdf BcXxL7PkjnjzSmwlkFX+PC 25hk03E8Fw RtpeYew8SMJpBPP9dYQ9lJ 0vALRsPTjnj0X6fBN1Z3Uc heSned6je3owOOIvWEkyS8 0vpPBhz1I6 XVTdxWT6JQWetRpfKhSsmA 93Oyc+LDIgqPcpg0SkYrsu t0pxg8uodRg3IpWiMDFazf FsaWduPSJ0 c2QiJf82L54oBVrlHYFlMM LxOPOkZEIybBljsc3mrF7g Ii8+RMOoxJQ8uYS3rF1dKx FcKcL4WImq P228BwBbcQSkAydve1bds0 ofrSf9EvVfTISbqcQzcIdk PPM9e8XoHs37G3VtdZepz4 QqPgs8ih80 jNKxd1I0pUC4D0BqGZMlgo dzxPHprDljUH0qKCYppqpy VGFtsF3wPFHpJ5k9ScSsYr K6VCzuU1Wq tsG6GLYhgTGtMGFedYCMfC 9xofdkk6qmqzmsIqFyUJEo RUg5RXo2UVNasOayXsZoXT S6IbC2OSC6 yOPyuG8siWqyfpckgJ9kOf c+BQt4e6gemGNsTT1gnLI6 OG83EG08hJVeo1W9dHA0B1 BhZGRpbmct oeeryZT1BRVoNCXpvX09Bo 5osEbwZw2zGTYiEGM9HLMq oJJkH4HrdQ5rCtAcAUYqKK GgQ5YjsURt SLdzD855HLfmSfA2RWOrpu JzE0VvJRQcwQtrLpH3x1G6 Gq7OGP03OX81AO00hQLiv0 Y9yID0N9Cw AVCfymcahibltUT5RDCjIG YqeX77Rx5frJamXq0fXJRz GZX7EELdbTAwK7VznP2rOq AjMDAwMDAw P7MvlYHxFSkiE996JSwaOm L2SZMleiRnZ7SbMLBdjXyf MhB1q0Q0Bq3WMi03RJ93DO 19pYNeb5W4 eAF2K5LvMLXfjwejnjudcY K6LYUhAFZnjB59Qb9dmFcf If8pXYZmTZA5MMYrhHInZ6 DbjT5mHiPf OYYeWMRvQ0PjaPDeAYtfG2 06MFefCtM7GTTlujAdQ3Kc AFZrrQnoOyZ6i1U8Jm1MFY aszbm7R3Op PjwvdHI+MT91CUShNN10iR GxuFIvi3jzkJf0KlUpOHVg HNA8uScgZKfss7PlBURhC4 0agMFrj3I1 IGNv (more content not included)... [facility] Outside Recordson 03-14-2022 Outside Records [id number]#1. 00CD:127 [facility] PT - Orderson 03-14-2022 PT - Orders [id number]#1. 00CD:127 [facility] Coding Summary.on 02-25-2022 Coding Summary. [id number] Gh 0bWw+PGhlYWQ+TG1METOfY 70xyGZmeJ9YD0uVNJ4NYCU PWYMAXP0RIG7rtJK7ODgrA 2VybiAv CaultPZvLV75CHq4ELL7mQ fxYYfuhV3swXIuE8k2BnKc FO76sT42FEysJAXhSmR6Np ZpbjsgbWFy P4eiHiYqsZHdThd+PHRhYm xlIHdpZHRoPScxMDAlJyBz mDldSN8eIc1cGBSeCGFulY xhcHNlOiBj u2ikIXIpLSsqJZ7bxOmdV1 GszVV2EPRnp1a9Nx72mDD+ XXTfJJY6xJnlOYyuz896Fr Jso2vyNDG5 sHRpDArwPRG3Y00gn5U0DV KnNVRfMYP4wPJ9yV2dmLss foxjF9HgcCAzUhB8MXC3sD NuwF0qwCox qjfujJ6kPvt+M92CNA7CFM JPME0LFer5D6GtFxayaNO+ ZQ56KDXuHV67gKSdyRWew8 fdoXu6ShIq OBChFDM6zAufVMmsj3KdPA GfI69xuGWib5F0FAMdiZjy eSIoTzDfdAJ0dN8bBWnpso tzv1lpwaax Zyonc2ojoo04hF08T17yVT dnEEEaCQJ8JJPbEPJjaYnw xy8yhU5lDk2+RFpqb9bai3 xapAw8LvKv SKDirjKavSssVQL2r1EcPy 00N3JmaLowa1PmRcl1ab00 bQPmg0X7eSU7UCckAXMzrY 0kIGweIzT0 HSDjKvBsoV47kIGhUAtcPy 4wmHmaiBqsOD9nTUZoovyp YTWyqN7dULEuuGAntNlsAZ 4wNTBpbjtm j467BoGtGYK9REGvjUYbL8 IyvF5yMbCkHXOdZPOyL8Lg fIBtJNmiL612CIadZfF4TY OjffSnA3Rb ETJtqDmzOdJ9g3D4Eq4Mo3 JmphzqEBT3EHlsTSO3AeV6 PiKkGsT6E4JhMqy1OFMlnK bjUE0vV9Kw SLLranxcgvbfsVM3XHTpZA UudW09hJMmOJjcGh7ge4A0 t082SQKiEYXurW87Sb5xsV ogMTBwdCBU zA1weaebx6mviqizZkCjFQ SkMOh6HDq9FOFpgUahBfBe UVI3VbH9CYB7bNHdaE3ubV bvrdefbP5i Oyc+V79mjG1rVPB0MVY4tp nvKZXujsKgTP73VX49B6Gk PjwvdGFibGU+PGRpdiBzdH pnKR8oChTv b8zip1LvRBwcG2JhQTXbSG wvKay3QZNnGWF2jTL2cC6s LICqQPzda3Z0vFW4M8Vemr Zcun9mr0mi WUQeIOgtN34tmMMpf6W5MJ PfyUM6EJRqfUcgPvYaeQ22 Oyc+ULJlvBnyj7FiWqetc0 cwk6qofCd7 ZkElAMIaieRjmZghCDU8p8 KnVz25C37qIWgxWZTuUVLg CXJcQBPyzJfkoy9pqT0qXc 8+PGNvbCB3 yKA3xZ9wXQPkUmW6GGmiF5 24RqYiqSLgPglhx4aqk7fp zHj3EyJcXNPndmGjmLldNM G2g6QiGe59 V82vAFdtDHHbMQYnXWBvXN LtmCazwy8wyM4gQh9+PC9j g4wttx30oK00hJV+PHRkIH I7nCkjMFnb QXTdnW7tBYimEmI5BTCzIy ZlrD44aWGyHYhaAr4vyKci pVdwQE9yKAJhlkohg153Up Dhe4kaQWSw kQPkUGsqLOM3Y55yw3G8EH ZpXWJfVEM1oHZ5lZ1fkHao bjogbGVmdDsgdmVydGljYW lyICjdJ202 IHRvcDsnPlBhdGllbnQgTm MiQQz1Z0GeEtk0CPJezVtg AQ2oeMJsBQinYt9zaIljrT ybNW0zOTKv wowjm352DwApq1pbWQTtjC WlWCweKUE1I35lj8Z8PVVu JBWsXKT1aSZ4lT8knYxazb ogbGVmdDsg cwQkdWxjSZhlCUocV733IQ RvcDsnPkJpcnRoIERhdGU6 LU29SM94xBEth1V3kMA6G9 BhZGRpbmct bkxwcDK2TXLmRDCpcL54Gp 6wwMdbSw1jEOGbFUA6QTEu rVIbT7MmaS5jRdWwUXQfEX WcE2HnaJRq YLkiA680HKfuXpN4WJHlax JtL4OiSRFflHpmSiC9y1D8 Ut3TA1X0CD02NV72mOWzz4 W8fQP7X2Om XCNnlaafjpxlxFG5JFDkNT DqoD24Xa9nhTkrPk9zFDBi SJO6IEEibUXsL4EaeI5tBw AjMDAwMDAw B9WzyKUsSNftG618DNorLz K2QFTeguLtG1BuDUHglAox CqS5d5O5Zs3MXHl2SV86YU 75mQBmx6D2 yWF6W5UiMTRuzljmuigpsR Y5LPRpBQPwdU68Nq3kuGhk Am3fOTXgBHY1MUKovVAmJ6 XfeB3eXnTq RPCtQKByZ1MquMNtKNncK6 77IBdiWtQ8KXTlsxXzO2An NIDlvZauEgY0f7B6Or6DVV DgWP51TYS7 oIT8ZR70NV67N6TyZpfqkP FibGU+PHRhYmxlIHdpZHRo TFljECOvUhGauSlkGM2vBs 9yZGVyLWNv rCpktJDrQgCns4zjRQHlGD dnPW5saApoW9WhoTK5RUXm e7k2Al69N66jZ7KcyEQ+PG ItbGQ4sSG4 pO7yMoYmQuV3ZCajU685Dd FouNCeFscux7kht2cmeZf7 LkF9KCBgrcKvuVlpWJN5x5 LkUs10C23e IHdpZHRoPSIxNSUiIHZhbG lqap5kcB0dHn0+PGNvbCB3 sFC8lN3jKuMmPnW8LWftG9 49InRvcCIv Zjake2hxa8tlnYf1ShDjIV ClypPbsCozAMC8j0FxYe14 O1LswUixo8OcZgj8ro99rM Hgk2F7aEP9 S6XpRVEejfisiIOnqXulWP 0yEGZsiryfIIKfnM2dDJAu R6d9BsNtBaM5RYlhH7Ambk Q2JPNwuATp UQhqDTO2R61ex9N4NQBtKO YiDCM4nEA9xE9fwNffpuav bGVmdDsgdmVydGljYWwtYW czD958DNOf tCjwKYCpiS2iZCDvaLSkpQ nuIU7mCOJyorphHujSPSwq IEpBREEgTTwvdGQ+PHRkIH E6zLoyIAhc DQUkjY8rDDQpR6z4ZqKmPs Z6UJrtR1MiEUCcioujDt33 nS2oYgOpGyA1MSudY8Tyah K7XUScnQAp HWgnASM1J50fs1P1BRFbXD MgOZY9hBL0cH3sdYuvtdtn bGVmdDsgdmVydGljYWwtYW ahU188MRDm qJeaRxI6VlH0NeH5CIV5H4 DfMcc5ITBpeMqbLM4kbSGo RAfrIa4xoXggjVyuEQ0gWN BpbjtwYWRk tU5wETRejOWpbJnxXN3cEN Vhgksom496QvWyLCD3JWFc oGSfD6VxfL1wHqXhWBBbQR MoX3JpsQAw TKzpG952DPzbKaB0BPCetm MrD4IqCJJurEjqPvP5c2K8 Xi0pDQUUONEfiovznIK+PH OkAJM6tPvg XGtlIIJqcH2mRKQrP2g9Zg SbNnB1ZNskA6TfCNRogixq Bu49vP8dKgEyNwV3DOrkN6 EngeC6FKXt hGBrOJkgLYS4Y24yt1Z8ER DqIOSrOZT5eOF9yO9ziNtn bjogbGVmdDsgdmVydGljYW ukVUuyD134 IHRvcDsnPkZlbWFsZTwvdG Q+ELObIFQ7cApqVOteIQYe bP1lSLFuO9r6ByAtQfW0EO gwC4RcCRVj dpfnMa25aS4yKfJtJlP4CL gzK3MqhtR2GBYnqHFeYLur UBQ7K27kp2R1URZnQHFdJD M3jHT1nW2n bGlnbjogbGVmdDsgdmVydG dtFZiaJTejY994AERqnLli BpZlIKCwZB0ehYaqoPP+PC 56tr48L7Gl FwqvKpt6FZRhEKX2sUE9kM 8tPILqYBjcc7I7sIW5E0Yz grAfrz3dk5esMHNjBDubK6 5dyKXrp8C8 IAFazKH1CMTlmLspKvHvjV 93Oyc+XMKpxQtoe2ZxUuqa a8sjo3tqnXh4IhIlRGWsdv FsaWduPSJ0 k4GoYv74R27zAHcmWZDzKS YqRVRlDXQzrYbnqp5dfX6s Ii8+YZLhfXO6dWL4dZ1lXa GiPoJ6IMmh A591NpDvhETkYnjxq1unj7 mokVs8OuClUCFcllEbeUpm DSP6z9SbKn41L8UhzOkww6 GkVhv1wq71 bAGow6E2rSB4A0HgTDMsxp dhdBKrkQkeDH0oISXcjfap KDQphD9aNAPtO1t6LnNjCo H5HQmlD1Wi mwC7YFVtrFPvISDwlZMVfG 8dkphvx6pwhvzxGmQvSYQj XKt3CJz8QFWapKxmUyLeGX K6DcT7MHM9 jIEyzJ8mfJzoezcdzO4uCv c+KWl2p9yjrXMwFU2vvEQ1 FJ77FQ02bZHus4I5zFY7H7 BhZGRpbmct epkfzHE9CEFrLRSkgT29Jn 6rfHqbDx9rSNPbHKT1AZCt fLDeK5TslF3cBmQbIXTvON NpZ6ExlSWz RSqtZ665BJxhCbF5XIIufm ZcY0UrOVNdzFfrKtL3o6F1 Rv3XAI88PT46YZ41qQPxo0 B6sZD9H3Xp SNUxtdrbsyaufXR3UYQeVS NehL34Vd1geYfrAc6wMAXt MUO7RHDdnHBbQ9PaaT3hZd AjMDAwMDAw U5KbnQIyLTxmU235PZbdRf F1JPUwsmAfZ7JwXGCgiAhq XkQ0f7Y8Sk6NBa70RF14JX 38jXXcp8D7 wSH5I7BtYWLsmqrsylvtjK M8QDZgUIZmjM18Xd6bbDte Oq5yNIKpIOT0DWOlzKPsT3 YrhW0oZyVg ANGySMFlZ7PnuQFzNHgiA9 08PXeaSpL3HUQmwgGtO6El LTBzzMfxEfQ0l0O8Lx5IPV uphbs3G4Qk PjwvdHI+DV09LBItFC80nW IpmTOwy8fxjQi5EjWcLPIp MSS7jKzyBLxbb3NmBWKlC2 0waTBwc0U8 IGNv (more content not included)... Normal [facility] Nonvisit Note - PTon 022 Nonvisit Note - PT Pt did not show for this eval today. ljm Normal [facility] Auto Diffon 02-16-2022 Basophils/100 WBC (Bld) 0.8 % Normal 0.0-2.0 [facility] Comment on above: Order Comment: Order Added by Discern Expert. Performed By: #### 2 786299, 7391858, 0351236, 93507304, 05980826 ####[address] [address] Basophils/Leukocytes Auto (Bld) [Pure # fraction] 0.1 E9/L Normal 0.0-0.2 [facility] Comment on above: Order Comment: Order Added by Discern Expert. Performed By: #### 2 677288, 5891152, 8113128, 90380150, 86568731 ####[facility] [address] [place] [address] Eosinophils/100 WBC (Bld) 1.8 % Normal 0.0-8.0 [facility] Comment on above: Order Comment: Order Added by Discern Expert. Performed By: #### 2 087233, 8041934, 2876271, 30618288, 22728999 ####[address] [address] Eosinophils/Leukocytes Auto (Bld) [Pure # fraction] 0.1 E9/L Normal 0.0-0.5 [facility] Comment on above: Order Comment: Order Added by Discern Expert. Performed By: #### 2 369132, 7404569, 1615532, 65753547, 84781392 ####[address] [address] Lymphocytes/100 WBC (Bld) 21.0 % Normal 14.0-50.0 [facility] Comment on above: Order Comment: Order Added by Discern Expert. Performed By: #### 2 250702, 1555681, 7812641, 33950379, 49149270 ####[address] [place] [address] Lymphocytes/Leukocytes Auto (Bld) [Pure # fraction] 1.5 E9/L Normal 1.0-4.0 [facility] Comment on above: Order Comment: Order Added by Discern Expert. Performed By: #### 2 354258, 6214275, 5788381, 62033384, 32444449 ####[address] [address] Monocytes/100 WBC (Bld) 7.4 % Normal 4.0-14.0 [facility] Comment on above: Order Comment: Order Added by Discern Expert. Performed By: #### 2 232887, 6809716, 5831716, 91355721, 78861403 ####[address] [address] Monocytes/Leukocytes Auto (Bld) [Pure # fraction] 0.5 E9/L Normal 0.2-1.0 [facility] Comment on above: Order Comment: Order Added by Discern Expert. Performed By: #### 2 127466, 4077894, 0481826, 60762965, 28419950 ####[address] [address] Neutrophils/100 WBC (Bld) 69.0 % Normal 36.0-75.0 [facility] Comment on above: Order Comment: Order Added by Discern Expert. Performed By: #### 2 154877, 7270521, 4093305, 32668640, 41509767 ####[address] [address] Neutrophils/Leukocytes Auto (Bld) [Pure # fraction] 5.0 E9/L Normal 2.0-7.5 [facility] Comment on above: Order Comment: Order Added by Discern Expert. Performed By: #### 2 747345, 3510533, 2262947, 96513892, 27166404 ####[address] [place] [address] CBC w/ Auto Diffon 2 Erythrocyte distribution width (RBC) [Ratio] 14.3 % High 10.9-14.2 [facility] Comment on above: Performed By: #### 2 267427, 0783175, 4565869, 88929574, 86765406 ####[address] [place] [address] Hematocrit (Bld) [Volume fraction] 36.6 % Normal 34.0-46.0 [facility] Comment on above: Performed By: #### 2 231675, 0495978, 7592227, 59314297, 53964368 ####[address] [address] Hemoglobin (Bld) [Mass/Vol] 11.9 g/dL Low 12.0-16.0 [facility] Comment on above: Performed By: #### 2 254167, 2853989, 4672186, 73972678, 62047677 ####[address] [address] MCH (RBC) [Entitic mass] 25.5 pg Low 27.0-34.0 [facility] Comment on above: Performed By: #### 2 417127, 9136125, 2483969, 48473842, 73686248 ####[address] [address] MCHC (RBC) [Mass/Vol] 32.6 g/dL Normal 31.4-36.0 [facility] Comment on above: Performed By: #### 2 629146, 7689453, 7558970, 89999274, 86713996 ####[address] [place] [address] MCV (RBC) [Entitic vol] 78.2 fL Low 80.0-100.0 [facility] Comment on above: Performed By: #### 2 131989, 8274153, 8746859, 19511802, 63496734 ####[address] [address] Platelet mean volume (Bld) [Entitic vol] 8.5 fL Normal 6.4-10.8 [facility] Comment on above: Performed By: #### 2 015638, 1864915, 2667892, 93212711, 59958314 ####[address] [address] Platelets (Bld) [#/Vol] 229.0 E9/L Normal 150.0-500.0 [facility] Comment on above: Performed By: #### 2 118035, 1363421, 7592985, 03482563, 60429859 ####[address] [address] RBC (Bld) [#/Vol] 4.7 E12/L Normal 4.3-5.9 [facility] Comment on above: Performed By: #### 2 098139, 7476289, 0226168, 80627231, 14251450 ####[address] [address] WBC corrected for nucl RBC Auto (Bld) [#/Vol] 7.3 E9/L Normal 4.0-11.0 [facility] Comment on above: Performed By: #### 2 559603, 3376830, 6378271, 82232810, 29408119 ####[address] [address] CMPon 02-16-2022 Albumin [Mass/Vol] 3.7 g/dL Normal 3.3-5.0 [facility] Comment on above: Performed By: #### 2 009377, 1708670, 4335927, 99691774, 81171003 ####[address] [address] Albumin/Globulin (S) [Mass conc ratio] 1.1 Normal 1.1-2.2 [facility] Comment on above: Performed By: #### 2 113807, 0040357, 0076930, 96729627, 13422675 ####[facility] [address] [place] [address] ALP [Catalytic activity/Vol] 48 Int._Unit/L Normal 21-98 [facility] Comment on above: Performed By: #### 2 062360, 6474091, 3901943, 33651623, 14253204 ####[facility] [address] [place] [address] ALT No additional P-5'-P [Catalytic activity/Vol] 16 Int._Unit/L Normal 6-46 [facility] Comment on above: Performed By: #### 2 303988, 7133653, 9571545, 66513290, 62073400 ####[facility] [address] [place] [address] AST [Catalytic activity/Vol] 15 Int._Unit/L Normal 5-43 [facility] Comment on above: Performed By: #### 2 796722, 2321246, 6948578, 55221343, 96126904 ####[facility] [address] [place] [address] Bilirubin [Mass/Vol] 0.6 mg/dL Normal 0.0-1.1 [facility] Comment on above: Performed By: #### 2 458745, 6029925, 2604297, 08092690, 13649310 ####[facility] [address] [place] [address] Creatinine [Mass/Vol] 0.7 mg/dL Normal 0.5-1.3 [facility] Comment on above: Performed By: #### 2 033374, 9491657, 1078723, 15054817, 24939477 ####[facility] [address] [place] [address] Globulin (S) [Mass/Vol] 3.4 g/dL Normal 1.4-4.0 [facility] Comment on above: Performed By: #### 2 398518, 5431564, 7009697, 71984292, 05234173 ####[facility] [address] [place] [address] Protein [Mass/Vol] 7.1 g/dL Normal 6.0-7.8 [facility] Comment on above: Performed By: #### 2 949736, 3207870, 6196651, 30771541, 29540597 ####[facility] [address] [place] [address] Urea nitrogen [Mass/Vol] 9 mg/dL Normal 5-21 [facility] Comment on above: Performed By: #### 2 127336, 2368340, 8449220, 65820207, 64072300 ####[facility] [address] [place] [address] Urea nitrogen/Creatinine [Mass ratio] 13 No Units Normal 10-20 [facility] Comment on above: Performed By: #### 2 109996, 0834351, 5376861, 72415443, 16077292 ####[facility] [address] [place] [address] Anion gap [Moles/Vol] 13 mmol/L Normal 6-16 [facility] Comment on above: Performed By: #### 2 614827, 9012762, 8895538, 43895720, 47642411 ####[facility] [address] [place] [address] Calcium [Mass/Vol] 8.7 mg/dL Low 8.9-11.1 [facility] Comment on above: Performed By: #### 2 715153, 1811314, 5448238, 67151949, 75480320 ####[facility] [address] [place] [address] Chloride [Moles/Vol] 106 mmol/L Normal 101-111 [facility] Comment on above: Performed By: #### 2 253344, 9123793, 2758641, 33796196, 08983275 ####[facility] [address] [place] [address] CO2 [Moles/Vol] 24 mmol/L Normal 21-31 [facility] Comment on above: Performed By: #### 2 445521, 9231836, 9559408, 07324822, 83562480 ####[facility] [address] [place] [address] Glucose [Mass/Vol] 98 mg/dL Normal 55-199 [facility] Comment on above: Result Comment: If t his glucose result represents a fasting glucose, interpretation should refer to the following reference range: 55-99 mg/dL Performed By: #### 2 787692, 6964816, 4409305, 54206357, 23120729 ####[facility] [address] [place] [address] Potassium [Moles/Vol] 3.8 mmol/L Normal 3.5-5.3 [facility] Comment on above: Performed By: #### 2 843245, 1481206, 2642164, 26273013, 43374862 ####[facility] [address] [place] [address] Sodium [Moles/Vol] 139 mmol/L Normal 135-145 [facility] Comment on above: Performed By: #### 2 380603, 0387028, 5213769, 54922815, 61359377 ####[facility] [address] [place] [address] Consent for Treatmenton Consent for Treatment [id number] 2059 [id number] 0CD:127 Normal [facility] Discharge Instructionson Discharge Instructions [id number]. 00CD:127 Normal [facility] ED Clinical Summaryon 2021 ED Clinical Summary [address] [address] ED Clinical Summary Person Information Name: LEENA INTERIANO/[facility] Age: 31 Years : 1990 Sex: Female Language: Sign Language PCP: BENTLEY LUCERO CNP Marital Status: Phone: [phone] Visit Id: Visit Reason: Headache; Cough; Chest pain; COUGH, CHEST PAIN, HEADACHE Speciality: Acuity: 4 Enc Type: Emergency Med Service: Emergency Arrival: 02/16/2022 10:48:47 Discharge: 02/16/2022 13:27:38 LOS: 000 02:39 Checkin: 02/16/2022 10:48:47 Checkout: 02/16/2022 13:27:38 Dispo Type: Home (Routine DC) EVENTS: Event Name Event Status Request Date/Time Start Date/Time Complete Date/Time Arrive Complete 02/16/2022 10:48:47 02/16/2022 10:48:47 02/16/2022 10:48:47 Document Home Meds Request 02/16/2022 10:48:47 Triage Complete 02/16/2022 10:48:47 02/16/2022 10:59:04 02/16/2022 10:59:04 Bed Assign Complete 02/16/2022 10:51:00 02/16/2022 10:51:00 02/16/2022 10:51:00 Dr Exam Complete 02/16/2022 10:51:00 02/16/2022 11:00:48 02/16/2022 11:00:48 RN Exam Complete 02/16/2022 10:51:00 02/16/2022 13:20:09 02/16/2022 13:20:09 EKG Complete 02/16/2022 10:51:21 02/16/2022 10:57:06 Registration Complete 02/16/2022 11:00:48 02/16/2022 11:08:16 02/16/2022 11:08:16 Dr Exam Complete 02/16/2022 11:01:52 02/16/2022 11:01:52 02/16/2022 11:01:52 Reg Complete Request 02/16/2022 11:08:16 Reg Bed Request Complete 02/16/2022 11:08:16 02/16/2022 11:08:16 02/16/2022 11:08:16 Pending Labs Complete 02/16/2022 11:23:19 02/16/2022 12:38:21 Lab Complete 02/16/2022 11:23:19 02/16/2022 12:25:13 Swab Complete 02/16/2022 11:23:19 02/16/2022 12:38:21 Meds Admin Complete 02/16/2022 11:23:19 02/16/2022 11:57:51 X-Ray Complete 02/16/2022 11:23:20 02/16/2022 11:47:23 02/16/2022 11:57:19 Pending Labs Complete 02/16/2022 11:48:21 02/16/2022 11:48:21 02/16/2022 12:07:33 Lab Complete 02/16/2022 11:48:21 02/16/2022 11:48:21 02/16/2022 12:07:33 Pending Labs Complete 02/16/2022 11:54:32 02/16/2022 11:54:32 02/16/2022 11:54:40 Lab Complete 02/16/2022 11:54:32 02/16/2022 11:54:32 02/16/2022 11:54:40 Pending Labs Complete 02/16/2022 11:56:06 02/16/2022 11:56:06 02/16/2022 11:56:06 Wet Read Request 02/16/2022 11:57:19 Pending Labs Complete 02/16/2022 11:57:49 02/16/2022 11:57:49 02/16/2022 11:57:49 Pending Labs Complete 02/16/2022 12:02:21 02/16/2022 12:39:35 Lab Complete 02/16/2022 12:02:21 02/16/2022 12:39:35 Pending Labs Inlab 02/16/2022 12:21:50 02/16/2022 12:21:50 Discharge Complete 02/16/2022 13:17:48 02/16/2022 13:29:49 02/16/2022 13:29:49 Transfer Complete 02/16/2022 13:29:49 02/16/2022 13:29:49 02/16/2022 13:29:49 ADDRESS: [address] [place] [phone] PHYS DOC NOTES: MEDICAL INFORMATION: Prescriptions Given: New Medications [facility], [address] [facility] [place], [place] [id number], [phone] benzonatate (Tessalon 100 mg Cap) 1 Capsules By Mouth 3 times a day for 7 Days. Refills: 0. Medications to Continue Taking That Have Changed [facility], [address] [facility] [place], [place] [id number], [phone] START: amoxicillin (amoxicillin 500 mg oral tablet) 1 Tablets By Mouth 3 times a day for 7 Days. Refills: 0. Other Medications START: amoxicillin Medications to Continue with No Changes Other Medications azithromycin (Zithromax TRI-EUGENIA 500 mg oral tablet) 1 Tablets By Mouth every day. Refills: 0. cetirizine (cetirizine 10 mg Tab) 1 Tablets By Mouth every day. Refills: 0. fluticasone nasal (Flonase 0.05 mg/inh nasal spray) 1 Sprays Nasal Inhalation 2 times a day. each nostril. Refills: 0. ibuprofen ondansetron (Zofran ODT 4 mg Tab) 1 Tablets By Mouth every 6 hours as needed Nausea/Vomiting. Refills: 0. pantoprazole (Protonix 40 mg Tab-EC) 1 Tablets By Mouth every day. Refills: 0. PATIENT EDUCATION INFORMATION: Instructions: Otitis Media, Adult, Ljof-uk-Cwps Follow up: With: Address: When: BENTLEY LUCERO CNP [address] [place] [address] In 3 days 02/19/2022 DIAGNOSIS: 1:Right otitis media; 2:Cough Normal [facility] ED Note-Physicianon 02-17-20 ED Note-Physician Basic Information Time Seen: Cary Archuleta PA-C 02/16/2022 11:00 Chief Complaint Pt presents to ED with complaints of cough, VARGAS, runny nose and CP x2 days. 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 Chest pain is localized to the mid sternum. Does not radiate. Describes it as burning and sharp. Rates it a 4 out of 10. Tells me that her chest pain is worse after coughing better when she is not coughing. She has not taken any medication for her symptoms. She is vaccinated for COVID but not the flu. Patient denies shortness of breath, palpitations, nausea, vomiting, dizziness, ear pain, odynophagia or dysphagia, sore throat, fever, chills. Denies a chance of . Denies alcohol, tobacco, drug use. Review of Systems ROS: Constitutional: Denies fever, chills, malaise, sick contacts HEENT: + Headache, runny nose. Denies neck pain, tinnitus, vision changes, sore throat, dyne aphasia, dysphagia, ear pain Pulm: + Cough. Denies SOB, wheezes, tobacco use CVS: + Chest pain. Denies palpitations, edema GI: Denies abd pain, N/V/D, constipation, black/bloody stools MSK: Denies injury/trauma, joint pain, neck pain, back pain Skin/Lymph: Denies rashes, wounds, swollen lymphnodes Neuro: Denies weakness, tingling, paresthesias, dizziness or lightheadedness Physical Exam Vitals & Measurements T: 36.8 ?C(Oral) HR: 89(Peripheral) RR: 20 BP: 123/88 SpO2: 98% HT: 165.1 cm HT: 165.1 cm WT: 86.5 kg WT: 86.5 kg BMI: 31.73 Appearance: Overweight, nontoxic-appearing, alert and awake. Calm. Cooperative. Vital signs reviewed, WNL Skin: Warm, dry, intact. Normal for age and ethnicity. No ecchymosis, open wounds, or rashes. Head: Normocephalic, atraumatic NECK: Supple. Nml Inspection with good ROM, no palpable adenopathy Eyes: PERRL. Vision grossly intact. ENT: Buccal mucosa pink and moist. Uvula is midline. Tonsils are normal in size and without exudate. Nasal turbinates edematous, almost touching. No maxillary or frontal sinus tenderness to palpation. Right TM and EAC erythematous. Left TM and EAC normal. No mastoid tenderness or swelling. Respiratory: LCTA b/l with normal bilateral excursion. No wheezes, rhonchi, rales. Cardiovascular: RRR, no murmurs. 2+ symmetrical radial pulses. Chest wall: Normal chest wall appearance and motion. Neuro: Alert and awake, Normal gait. Extremities: No deformity noted on exam. Patient spontaneously moves all 4 extremities. Medical Decision Making Patient is a 31-year-old female presents to the ED today for evaluation of chest pain, cough productive of yellow sputum, headache and nasal congestion. 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 Physical exam shows right otitis media, dental stable turbinates. Lungs are clear. Patient would like to be tested for both COVID and the flu. We will also obtain strep testing. Will obtain basic lab work to assess for any abnormalities, chest x-ray to evaluate for pneumonia or other cardiopulmonary abnormality. Patient to be given Tylenol, guaifenesin and Motrin for her symptoms. Patient's heart score is 0. On reassessment, patient reports that her pain is improved and that she feels moderately better. Strep is negative, flu is negative. Chest x-ray normal. Troponin low. CBC without leukocytosis and with normal platelet count. Electrolytes normal. I discussed findings with patient. Patient to be discharged home with amoxicillin for her otitis media as well as Tessalon Perles for her cough. Advised her that she can continue to use ihnv-rxg-tavbrzb medications like Tylenol Motrin and Mucinex for symptom control. She is to follow-up with primary care provider. Patient is agreeable. Assessment/Plan 1. Right otitis media (H66.91: Otitis media, unspecified, right ear) Ordered: amoxicillin, 500 mg = 1 tab(s), Oral, TID, X 7 day(s), # 21 tab(s), Refills(s) 0, Pharmacy: [facility], 165.1, cm, 02/16/22 10:59:00 EDT, Height/Length Dosing, 86.5, kg, 02/16/22 10:59:00 EDT, Weight Dosing 2. Cough (R05.9: Cough, unspecified) Ordered: benzonatate, 100 mg = 1 cap(s), Oral, TID, X 7 day(s), # 21 cap(s), Refills(s) 0, Pharmacy: [facility], 165.1, cm, 02/16/22 10:59:00 EDT, Height/Length Dosing, 86.5, kg, 02/16/22 10:59:00 EDT, Weight Dosing Orders: acetaminophen, 650 mg = 2 tab(s), Tab, Oral, Once, Stop date 02/16/22 11:21:00 EDT, STAT, Start date 02/16/22 11:21:00 EDT, 02/16/22 11:21:00 EDT guaifenesin, 400 mg = 20 mL, Liquid, Oral, Once, Stop date 02/16/22 11:21:00 EDT, STAT, Start date 02/16/22 11:21:00 EDT, 02/16/22 11:21:00 EDT ibuprofen, 600 mg = 1 tab(s), Tab, Oral, Once, Stop date 02/16/22 11:21:00 EDT, STAT, Start date 02/16/22 11:21:00 (more content not included)... Normal [facility] Comment on above: Result Comment: Elec tronically Signed By: Cary Archuleta PA-C\.br\Date and Time Signed: 02/16/22 17:13 EDT\.br\Electronically Co-Signed By: Connor Castellanos DO\.br\Date and Time Co-Signed: 02/16/22 19:57 EDT ED Patient Education Noteon 02-16-2022 ED Patient Education Note ENT Otitis Media, Adult Otitis media means that the middle ear is red and swollen (inflamed) and full of fluid. The condition usually goes away on its own. Follow these instructions at home: ? Take [id number] and prescription medicines only as told by your doctor. ? If you were prescribed an antibiotic medicine, take it as told by your doctor. Do not stop taking the antibiotic even if you start to feel better. ? Keep all follow-up visits as told by your doctor. This is important. Contact a doctor if: ? You have bleeding from your nose. ? There is a lump on your neck. ? You are not getting better in 5 days. ? You feel worse instead of better. Get help right away if: ? You have pain that is not helped with medicine. ? You have swelling, redness, or pain around your ear. ? You get a stiff neck. ? You cannot move part of your face (paralyzed). ? You notice that the bone behind your ear hurts when you touch it. ? You get a very bad headache. Summary ? Otitis media means that the middle ear is red, swollen, and full of fluid. ? This condition usually goes away on its own. In some cases, treatment may be needed. ? If you were prescribed an antibiotic medicine, take it as told by your doctor. This information is not intended to replace advice given to you by your health care provider. Make sure you discuss any questions you have with your health care provider. Document Released: 02/16/2009 Document Revised: 08/13/2018 Document Reviewed: 09/21/2017 [employer] Patient Education ? 2019 [employer]. Normal [facility] ED Patient Summaryon 022 ED Patient Summary [place] [id number] Patient Discharge Instructions Person Information Name: LEENA INTERIANO Age: 31 Years Arrival Date: 02/16/2022 10:48:47 Discharge Diagnosis: 1:Right otitis media; 2:Cough Primary Care Physician: BENTLEY LUCERO CNP Provider Information Primary Provider: Connor Castellanos DO [facility] Practitioner:Cary Archuleta PA-C The exam and treatment you received in the Emergency Department were for an urgent problem and are not intended as complete care. It is important that you follow up with a doctor, nurse practitioner, or physician?s higher level teaching assistant for ongoing care. If your symptoms become worse or you do not improve as expected and you are unable to reach your usual health care provider, you should return to the Emergency Department. We are available 24 hours a day. LEENA INTERIANO has been given the following list of patient education materials, prescriptions and follow-up instructions: Follow-up Instructions: With: Address: When: BENTLEY LUCERO CNP [address] [place] [address] In 3 days 02/19/2022 In the event that this physician does not participate in your insurance network, please consult with your insurance company to find a nearby participating provider. Patient Education Materials: [employer], Adult, Yclp-pz-Cmkb A MESSAGE TO ALL PATIENTS REGARDING OPIOIDS PRESCRIPTION OPIOIDS: WHAT YOU NEED TO KNOW Prescription opioids can be used to help relieve ymbwzxcn-mn-dxoric pain and are often prescribed following a surgery or injury, or for certain health conditions. These medications can be an important part of the treatment but also come with serious risks. It is important to work with your healthcare provider to make sure you are getting the safest, most effective care. WHAT ARE THE RISKS AND SIDE EFFECTS OF OPIOID USE? Prescription opioids carry serious risks of addiction and overdose, especially with prolonged use. An opioid overdose, often marked by slowed breathing, can cause sudden . The use of prescription opioids can have a number of side effects as well, even when taken as directed: ? Tolerance?meaning you might need to take more of the medication for the same pain relief ? Physical dependence?meaning you have symptoms of withdrawal when a medication is stopped ? Increased sensitivity to pain ? Constipation ? Nausea, vomiting, and dry mouth ? Sleepiness and dizziness ? Confusion ? Depression ? Low levels of testosterone that can result in lower sex drive, energy, and strength ? Itching and sweating RISKS ARE GREATER WITH: ? History of drug misuse, substance use disorder, or overdose ? Mental health conditions (such as depression or anxiety) ? Sleep apnea ? Older age (65 years and older) ? Avoid alcohol while taking prescription opioids. Also, unless specifically advised by your health care provider, medications to avoid include: ? Benzodiazepines (such as Xanax or Valium) ? Muscle relaxants (such as Soma or Flexeril) ? Hypnotics (such as Ambien or Lunesta) ? Other prescription opioids KNOW YOUR OPTIONS Talk to your health care provider about ways to manage your pain that don?t involve prescription opioids. Some of these options may actually work better and have fewer risks and side effects. Options may include: ? Pain relievers such as acetaminophen, ibuprofen, and naproxen ? Some medication that are also used for depression or seizures ? Physical therapy and exercise ? Cognitive behavioral therapy, a psychological, goal-directed approach, in which patients learn how to modify physical, behavioral, and emotional triggers of pain and stress. IF YOU ARE PRESCRIBED OPIOIDS FOR PAIN: ? Never take opioids in greater amounts or more often than prescribed. ? Follow up with your primary health care provider. o Work together to create a plan on how to manage your pain. o Talk about ways to help manage your pain that don?t involve prescription opioids. o Talk about any and all concerns and side effects. ? Help prevent misuse and abuse o Never sell or share prescription opioids. o Never use another person?s prescription opioids. ? Store prescription opioids in a secure place and out of reach of others (this may include visitors, children, friends, and family). ? Safely dispose of unused prescription opioids: Find your community drug take-back program or your pharmacy mail-back program, or flush them down the toilet, following guidance from the Food and Drug Administration (www.fda.gov/Drugs/Res ourcesForYou). ? Visit www.cdc.gov/drugoverdo se to learn about the risks of opioids abuse and overdose. ? If you believe you may be struggling with addiction, tell your health day care supervisor and ask for guidance or call [facility]?S National Helpline at 6-627-279-ZYSQ. x Source: Department of a (more content not included)... Normal [facility] Influenza A&B Agon 2 Influenzae A Ag Negative Normal Negative [facility] Comment on above: Performed By: #### 2 [id number] ####[facility] [address] [place] [address] Influenzae B Ag Negative Normal Negative [facility] Comment on above: Result Comment: Test sensitivity and specificity vary for age group, specimen type, antigen types, and prevalence of disease. Test results must be evaluated in conjunction with other clinical data available to the physician. Individuals who received nasally administered Influenza A vaccine may have positive test results up to 3 days after vaccination. Performed By: #### 2 [id number] ####[facility] [address] [place] [address] Prescriptions/Work Noteson 0 02-16-2022 Prescriptions/Work Notes [id number]#1. 00CD:127 Normal [facility] Rapid COVID Antigen ([facility])on 02-16-2022 Rapid COV Int NEG Ctl Pass Normal Fis [facility] Comment on above: Performed By: #### 2 [id number] ####[facility] [address] [place] [address] Rapid COV Int POS Ctl Pass Normal [facility] Comment on above: Performed By: #### 2 [id number] ####[id number] [place] [address] SARS-CoV+SARS-CoV-2 (COVID-19) Ag IA.rapid Ql (Resp) Not detected Normal Not Detected [facility] Comment on above: Result Comment: The [employer]? System for Rapid Detection of SARS-CoV-2 is a chromatographic digital immunoassay intended for the direct and qualitative detection of SARS-CoV-2 nucleocapsid antigens in nasal swabs from individuals who are suspected of COVID-19 by their healthcare provider within the first five days of the onset of symptoms. Negative results should be treated as presumptive, do not rule out SARS-CoV-2 infection and should not be used as the sole basis for treatment or patient management decisions, including infection control decisions. Negative results should be considered in the context of a patient?s recent exposures, history and the presence of clinical signs and symptoms consistent with COVID-19, and confirmed with a molecular assay, if necessary, for patient management. For in vitro diagnostic use. In the [facility], only for use under an Emergency Use Authorization. In the [place], this test has not been FDA cleared or approved; this test has been authorized by FDA under an EUA for use by authorized laboratories; use by laboratories certified under the CLIA, 42 U.S.C. ?263a, that meet requirements to perform moderate, high, or waived complexity tests and at the Point of Care (POC), i.e., in patient care settings operating under a CLIA Certificate of Waiver, Certificate of Compliance, or Certificate of Accreditation. This test has been authorized only for the detection of proteins from SARS-CoV-2, not for any other viruses or pathogens; and, in the [place], this test is only authorized for the duration of the declaration that circumstances exist justifying the authorization of emergency use of in vitro diagnostics for detection and/or diagnosis of the virus that causes COVID-19 under Section 564(b)(1) of the Act, 21 U.S.C. ? 360bbb-3(b)(1), unless the authorization is terminated or revoked sooner. Performed By: #### 2 [id number] ####[place] [address] ADMITTED TO INTENSIVE CARE UNIT FOR CONDITION OF INTEREST:FIND:PT: NO Normal [facility] Comment on above: Performed By: #### 2 [id number] ####[place] [address] EMPLOYED IN A HEALTHCARE SETTING:FIND:PT: NO Normal [facility] Comment on above: Performed By: #### 2 [id number] ####[place] [address] FIRST TEST FOR CONDITION OF INTEREST:FIND:PT: Unknown Normal [facility] Comment on above: Performed By: #### 2 [id number] ####[place] [address] HAS SYMPTOMS RELATED TO CONDITION OF INTEREST:FIND:PT: NO Normal [facility] Comment on above: Performed By: #### 2 [id number] ####[place] [address] HOSPITALIZED FOR CONDITION OF INTEREST:FIND:PT: NO Normal [facility] Comment on above: Performed By: #### 2 [id number] ####[place] [address] STATUS:FIND:PT: NO Normal [facility] Comment on above: Performed By: #### 2 [id number] ####[place] [address] RESIDES IN A CONGREGATE CARE SETTING:FIND:PT: NO Normal [facility] Comment on above: Performed By: #### 2 [id number] ####[place] [address] Rapid Strep w/rfxon 02-17-20 22 S. pyogenes Ag IA.rapid Ql (Throat) Negative Normal Negative [facility] Comment on above: Performed By: #### 2 [id number] ####[facility] [address] [place] [address] Troponin 0 Hr.on 02-16-2022 Troponin I.cardiac [Mass/Vol] ng/mL Low 10.10-27.10 [facility] Comment on above: Result Comment: The 95% CI (Confidence Interval) PPV (Positive Predictive Value) for myocardial infarction in females is 38 pg/mL, in males 51 pg/mL. The results should be used in conjunction with clinical conditions of myocardial infarction. (Access High Sensitivity Troponin I Instructions For Use, [employer], April 2018) Performed By: #### 2 [id number] ####[facility] [address] [place] [address] XR Chest 2 Viewson XR Chest 2 Views Exam Date/Time: 02/16/2022 11:57 EDT Reason for Exam: Cough Report IMPRESSION: NO EVIDENCE OF ACTIVE CHEST DISEASE. CLINICAL HISTORY: Cough. COMPARISON: 11/18/2021. COMMENT: The heart is normal in size. The mediastinum is unremarkable. The lungs appear clear. No infiltration nor pleural effusion is evident. No significant change is noted when compared to the prior exam. FINAL REPORT Dictated: 02/16/2022 5:43 pm Roosevelt Malcolm M.D. Signed (Electronic Signature): 02/16/2022 5:43 pm Signed by: Roosevelt Malcolm M.D. Transcribed by: MARÍA ELENA Technologist: AYALA Gonzalez [facility] eGFRon 02-16-2022 GFR/1.73 sq M.predicted among blacks MDRD (S/P/Bld) [Vol rate/Area] mL/min/{1.73_m2} Normal >=59 [facility] Comment on above: Order Comment: Order added by Discern Expert. Result Comment: eGFR is race adjusted. AA=. Performed By: #### 2 [id number], [id number] ####[facility] [address] [place] [address] GFR/1.73 sq M.predicted among non-blacks MDRD (S/P/Bld) [Vol rate/Area] mL/min/{1.73_m2} Normal >=59 [facility] Comment on above: Order Comment: Order added by Discern Expert. Result Comment: Back Up Worker chance kidney disease could be indicated at eGFR's of less than 60 mL/min/1.73m2. Kidney failure is indicated at less than 15 mL/min/1.73m2. Performed By: #### 2 [id number], [id number] ####[facility] [address] [place] [address] Coding Summary.on 01-15-2022 Coding Summary. CD:[id number] Gh 0bWw+PGhlYWQ+CX5OMAXtC 29duGYuoJ2ZB6yFTV1PCLT UBDIYZJ8SNZ3owGN7JCktU 2VybiAv ZpbrnSXxQA29ANb9YHD7mO agTGxjtK7cuWRoY4t9YtRu FL14nY98SDooTEInYhM8Fx ZpbjsgbWFy E6tlVtAkgRNfPfi+PHRhYm xlIHdpZHRoPScxMDAlJyBz hKwgJC4dIv2dCQVtMTTxeY xhcHNlOiBj u4gqLVEoJIcnGY9pnMtrG2 FewXI7VCKnk1e5Jy34pOG+ VWGbSSI0yNqhPVfcm566Hd Uaj4giLVZ8 jTNoLXhrVNK3W47uv2N4RX MeVAZtBDM3sMX5iR1ajGbd dxjwN1NanGEvSqZ9CFV5rC VgfO7ksCda mcebkE0eHwj+V11BLY6NXC ICZO2WWlm6K9EhJjpphHG+ ZI61MHVeTK34wXXweIPov8 mnfQt4QdTr ECUpBBP4gMnzJBgxk4WgSS SeB95nwALly7G7QQTlyOwa rYVcMdOvuCH1yS0wDIceqw qre2yxtdih Ygqat9gndt38eY58R07zFI ylATBqPCL6HDLrNKVldJit ca4ejQ0mKh3+DGozy1fow7 aapCz8EhCv LEGpidKeyMioSZV3b9HhOr 18I8KolBhie8GoZew2lu74 aTWew4J8fWI3CRgeSKTvkX 4aOSswWaS1 QGRsMzVrbD32mSCwWIgcQy 8vvOikwFmpXN8lVZCynacz JNJwqR1jXUYjxXLpkJihBZ 4wNTBpbjtm v944QgDfZZY7JYItoGFgM1 LygP7aGxBuUMHhCGTjH4Me vSRaRFvhJ358QMwzOuX9BB TrhkFsD9No BIAkvXjsUuJ7d1S7Pi6Kk0 PxwvteRCK7HIjuGVY8VuZ5 CdNgLqZ8A3RjJso7CYAewB ifSG0xY0Dv ZDTtmetvwkagxLE6WYImYI CivV72sGJgARvyVi6pb6J6 t891NAVlDJUitR44Fj1hhJ ogMTBwdCBU tY1twoqyn0omllfmVvOgSW TgNPi2XBb7IPFahLvxVsSt JZF1MpQ6REK4gHCtuQ2ztH zbzsjjdN2j Oyc+V51nqT5rFRU2EFA0rw pzHQDadiLxQK19FE43F1Xf PjwvdGFibGU+PGRpdiBzdH epXA4mNoBr i8ics2RwJStwZ2NxGXHrOE fiEvr1KPRqMAO8aXJ8uZ0w YVGxISxam1L1qPM9A1Pwxp Ntsk9xh3ud PVIrRAieU70yfUYuv8J4JF QclMV5UHWlvDeoVeBzcC40 Oyc+MCAxaQlkv3WiTytgt4 vjz8stxSi4 EmZnRJLiplVbzDlbPKQ7o8 GxPa69M81uUVieHVXfVMBt ZKDoBORcpSraib5kjE9hHf 8+PGNvbCB3 dEL8uH6lAAOtJsN2IBqiP8 66BaWgnYBjVeajb0job8kh gPj0XbIyLQYuryZhlMphJJ N8i0VxRt87 I28iKJinASEiOZQnKKGuXO NagCxnrk0vkL6lEw2+PC9j a5yhbv23fS24gUA+PHRkIH Z7bBbiHLjq DSSrvD5wZEsaNmY4HLEgTr NalX17kIWvZLenTn2otYyc vYvbKE3kWEOnnjchf648Pn Kno8xnJORv xUXdWFmeHTN2P40om7D0QA UwWNCwDKQ0rZC2bT9yhBsu bjogbGVmdDsgdmVydGljYW nzXEpqF131 IHRvcDsnPlBhdGllbnQgTm HaWLw6X9GoIxj0PNLwzMco DP1qkERnHFplRu8xsBlbbT ykYH3rGSKl tajfh056AhRjp1ryPAUrsB FzOLjcQTN7C53rv8P7WCQu TYLnXUM1hMK5oW5hgJeroq ogbGVmdDsg hzWajHrgEBecFLezH364ZM RvcDsnPkJpcnRoIERhdGU6 OX35HQ71kUPcp4K8lTP1F2 BhZGRpbmct axghgNQ9DYJqNYChrT69Xd 3rhHfmXy1mHKTrGZY8PIQb lBUuP4QkgQ7qIzKfEFOyQU CjY2ZfiAMr YPieD856YPflVvY0DYDzre KnO8NoLOIkcTqlMpZ5m5T0 Ok3HA0D6WA31OX46dPBdn3 Z5fCW6T5Hp GTLxdxkqjbbvqHN0IUFlBJ LvqA65Th4fiKumLu6qMKAy YBJ9RUAysEPcG2XxoF4nZk AjMDAwMDAw W8SijCYmOWweH890COgkMh A0AOTfwnEyI8YiYDGqjUxd YhY3u9Y4Qj0PRUc9OE86ZI 29qVZud2K6 sSV4G7AbKKHwjkbwsorhpU P7CKFgSCLytK06Ru6tuSfu Nn4wHELcOMY5SIEclRTzK1 BevA7nQiNq MUWsUGPqY9JcoSJuFXmbS1 04SXgtUrV7RBJrvgXpJ4Nf VKKznHopNwA9n1V4Yf0UFM NmDS05PIP6 pTQ4VB53OU64D5RsNcmvsI FibGU+PHRhYmxlIHdpZHRo SFoeZWJuJdJmmEroMI9oRo 9yZGVyLWNv rKpwpERkXbXev5knVIPxPT zzYB5saXexD9KfmBA6SAYw m5p3Jz38A64cU0GvbFD+PG MbzZK7rGE5 tP7jFaQiLeC5GMwhY372Kh KezSGpVxcgw5ctw5qbaPp9 SwC1XVNwhuCutYkdMXR2v9 XcIe94W74d IHdpZHRoPSIxNSUiIHZhbG qrjr4ktR6rXf4+PGNvbCB3 vWC0qL6lHaClFcJ6UBlcC9 49InRvcCIv Zvufg8jad5jjfFw8CuNnXQ LtlxBmtRsnEWY4h7JcGo20 Z7BhyRchg0AtYwt2og48uG Kgx4G1iNU2 C2WhXSAubfmlrNNaoHxjVM 2hOWAlrdqmQSUcxA2mSKAm Q2t3KeGqUeE9VYiqP8Gazv N1RIXqtLSr BLksCCF2L30qe6Q5TWTzGF YxTEE2xCT0iO6wuOwfrsfg bGVmdDsgdmVydGljYWwtYW jbH254CQDp gJcoCYZnzP6qLGShkACbiL lbKJ3pANQeiaogIuhAHXoh IEpBREEgTTwvdGQ+PHRkIH L0uYfhOCar PUIjuN7pMVHeD8v6BgCzAr S9HSbwF1NmSGUgfuujUy87 mA7rNqLpHrT3SOtrC0Wmvl L4DPStpZPi EChzVLF2Y45zq4F5FSRjCP XkEEF6tBA7fU7nxHtgqktr bGVmdDsgdmVydGljYWwtYW mnV415TYVy xRftRvM1TmM1MeB4YMB8C7 GuXke1LEXmsEzlAK8gqXDi NJaqNy3bmRfygBgbFU0qAU BpbjtwYWRk zO3mSANpyREqkJseFS8lCE Bpfvtgf111PtOnJPF0HJXm qJYpW3KgyG9qQjTrTVGdMX TkH1WmlNWu NPxzF207IFkhJkO9MEXoan BmR0HcZNPjwNnzLpX6f7G1 Kv3uPMEDXGTorkkcfUG+PH CkGSL1dLxz CEppKJHmhD8gUIXzV6o3Zc SrSgV5KWmjF1WwUQIwgddw Uv02bD2lOvNmHpR5ACfmD0 OsfoG1KGVl dOLlCUtxMNH1X11sf3B5ZI StIDGsVHQ2cYZ1yH1ojIjq bjogbGVmdDsgdmVydGljYW puIVulJ800 IHRvcDsnPkZlbWFsZTwvdG Q+WHOdGGS6gHacKAjmVJVd cU3wFXAlZ9h2NiXwNiV4AH tiT9WuZASe ukfjZz19xE7uRsLqIpP1IH gfQ7JlmfT1EMOrvSUkLZon UZI5P37ag3P0KURjFBVpYJ T1oBR7aK7o bGlnbjogbGVmdDsgdmVydG zxFJffVLdvW084JPYucLtk YgEwYQWmEE8isDbyfQV+PC 94uz90K2Lu LnjvVim9TWYuFOV9gHK9mW 8lFEVeKAlzy9Z9uPK9J9Av thPuxc0uo1zxXHIxFPapA5 6tgTSyg6D7 WHTrsHA8VHNgeOngFgXifK 93Oyc+SETidQurg2GhGwju s3dms9asqKq1DmSfAEMakk FsaWduPSJ0 u2QtSo83I27vNPapCQFnNW EkSYOyFNLklXymen2zyA8a Ii8+QDBrjZX8sJX6uS8vSk UlQqD1LCos A551GoSwpFNrMkchc9dgx9 zajJk2WuYjAIVgrvLxmTyd KMC5m8LrNy54P7YtzUjdn2 KpJdw3us31 dLTmw6D1kBC6V2YvQIMxcq yekRHjcOoqYZ9xHIYowaly SUCyyH0iAPDlI1g0VpXjJu P9LDjcE6Rw xkI7RFVhfXNpASHfdODPdV 1anpnew5zqpaywHqBeCHTy UVm2OIa9TCJmzXimMePzKO D6OsE7JQY8 mGSwyT4gfIilqnozqB7eNg c+UWi7f4yxsOVsSO4agRI8 EV32MS44gQBth0L2pJQ4C2 BhZGRpbmct cxbxxLR3OYRxNRRxxU69Ih 4pnRgfHq1xBUMvFEC2BKMe dPZrV4EyaK2rIkRpHBXnPF PaU4XshGOx LRnnZ696PPhiGvW2ZAVbed IiN3VbGPPmfJrmInI3n2S6 Lq4NJH76TN51SD52tCLvj6 X7eHY7P4Pv CVZeeiqtvhtpxUI6PQPwWA PkaW07Ge8mfSicVo9jALTj GJG2IVWfxFTcG4NrqZ2hLv AjMDAwMDAw M6DvsTRsFOjuZ683HSqyDz N7ENXclkUqH1GuYLAnzEjm RgT1n6V5Zj3NPj35HB85JO 36nWCgc9J1 jCN9D2EgSMMbkyoxelgwaF M5FWXjIMRveM53Xj1edBvj Az7oKVDlZRW1NIDgkJDfH7 RqyA1lWgXv MNAtZUDlO6HioFKzKOmhI0 29THesMoJ4BBSiyvMpO1Bm PQMjqRxqFjZ9a0C1Oy3GRO wxxcf0G6Ky PjwvdHI+PJ73VJQyVG71sM WisQAxn7ymgXj1GsVvUGKo HWI2tRskPSljk1SiXWCbK5 5khGJmf3D9 IGNv (more content not included)... [facility] Discharge Instructionson Discharge Instructions [id number]#1. 00CD:127 [facility] Comment on above: Other Comment: WRONG FOLDER Prescriptions/Work Noteson 0 01-14-2022 Prescriptions/Work Notes [id number]#1. 00CD:127 [facility] Grp A Strp PCRon 01-10-2022 Grp A Strp Intrl Ctrl Pass Normal [facility] Comment on above: Order Comment: Order Added on by Discern Rule. Performed By: #### 2 [id number] ####[id number] [place] [address] S. pyogenes rRNA Probe Ql (Unsp spec) Negative Normal [facility] Comment on above: Order Comment: Order Added on by Discern Rule. Result Comment: Test ing performed using DNA amplification. Performed By: #### 2 [id number] ####[facility] [address] [id number] Consent for Treatmenton 12-14 Consent for Treatment [id number] 0CD:127 Normal [facility] Discharge Instructionson Discharge Instructions [id number] 0CD:127 Normal [facility] ED Clinical Summaryon 2021 ED Clinical Summary [place] [id number] ED Clinical Summary Person Information Name: LEENA INTERIANO Edith/[facility] Age: 31 Years : 1990 Sex: Female Language: Sign Language PCP: BENTLEY LUCERO CNP Marital Status: Phone: [phone] Visit Id: Visit Reason: Throat pain - Adult; Body aches; body aches, dizzy, sore throat, feels like she is going to pass out Speciality: Acuity: 4 Enc Type: Emergency Med Service: Emergency Arrival: 01/09/2022 13:49:16 Discharge: 01/09/2022 15:57:43 LOS: 000 02:08 Checkin: 01/09/2022 13:49:16 Checkout: 01/09/2022 15:57:43 Dispo Type: Home (Routine DC) EVENTS: Event Name Event Status Request Date/Time Start Date/Time Complete Date/Time Arrive Complete 01/09/2022 13:49:16 01/09/2022 13:49:16 01/09/2022 13:49:16 Document Home Meds Request 01/09/2022 13:49:16 Triage Complete 01/09/2022 13:49:16 01/09/2022 13:57:36 01/09/2022 13:57:36 Bed Assign Complete 01/09/2022 13:51:31 01/09/2022 13:51:31 01/09/2022 13:51:31 Dr Exam Complete 01/09/2022 13:51:31 01/09/2022 13:53:23 01/09/2022 13:53:23 RN Exam Complete 01/09/2022 13:51:31 01/09/2022 13:58:17 01/09/2022 13:58:17 Registration Complete 01/09/2022 13:53:23 01/09/2022 14:22:24 01/09/2022 14:22:24 Pending Labs Complete 01/09/2022 14:05:13 01/09/2022 14:52:23 Swab Complete 01/09/2022 14:05:13 01/09/2022 14:52:23 Pending Labs Complete 01/09/2022 14:05:33 01/09/2022 14:46:07 Pending Labs Complete 01/09/2022 14:06:25 01/09/2022 14:56:48 Lab Complete 01/09/2022 14:06:25 01/09/2022 14:56:48 Meds Admin Complete 01/09/2022 14:06:45 01/09/2022 14:17:24 Reg Complete Request 01/09/2022 14:22:24 Reg Bed Request Complete 01/09/2022 14:22:24 01/09/2022 14:22:24 01/09/2022 14:22:24 Pending Labs Inlab 01/09/2022 14:46:07 01/09/2022 14:46:07 Discharge Complete 01/09/2022 15:46:15 01/09/2022 15:57:51 01/09/2022 15:57:51 Transfer Complete 01/09/2022 15:57:51 01/09/2022 15:57:51 01/09/2022 15:57:51 ADDRESS: [address] [place] [phone] PHYS DOC NOTES: MEDICAL INFORMATION: Prescriptions Given: Medications to Continue with No Changes Other Medications amoxicillin azithromycin (Zithromax TRI-EUGENIA 500 mg oral tablet) 1 Tablets By Mouth every day. Refills: 0. cetirizine (cetirizine 10 mg Tab) 1 Tablets By Mouth every day. Refills: 0. fluticasone nasal (Flonase 0.05 mg/inh nasal spray) 1 Sprays Nasal Inhalation 2 times a day. each nostril. Refills: 0. ibuprofen ondansetron (Zofran ODT 4 mg Tab) 1 Tablets By Mouth every 6 hours as needed Nausea/Vomiting. Refills: 0. pantoprazole (Protonix 40 mg Tab-EC) 1 Tablets By Mouth every day. Refills: 0. PATIENT EDUCATION INFORMATION: Instructions: COVID-19 Frequently Asked Questions; COVID-19 Follow up: With: Address: When: BENTLEY LUCERO [address] [address] [employer] In 3 days 01/12/2022 Comments: You should self quarantine for 5 days. Return to the emergency room if your symptoms get worse, you develop chest pain, shortness of breath or any new symptoms. DIAGNOSIS: 1:COVID-19 virus infection Normal [facility] ED Note-Physicianon 01-10-20 ED Note-Physician Basic Information Time Seen: Devendra Miller M.D. 01/09/2022 13:53 Chief Complaint Patient presents with body aches, sore throat with dizziness for a few days History of Present Illness The patient is 31-year-old female, deaf, who presented to the emergency room with flulike symptoms. The history was taken by writing. The patient states her symptoms have been for past few days. She reports some chills but no fever. The patient reports slight dry cough. She states occasionally shortness of breath. Denies any chest pain. She denies any abdominal pain. The patient denies nausea or vomiting. She reports some diarrhea. The diarrhea has been somewhat watery. She denies any black or bloody stool. The patient reports generalized body aches. She denies any urinary symptoms. The patient denies any other associated symptoms. Review of Systems Additional ROS info: Except as noted in the above Review of Systems and in the History of Present Illness all other systems have been reviewed and are negative or noncontributory. Physical Exam Vitals & Measurements T: 37.0 ?C(Oral) HR: 83(Peripheral) RR: 16 BP: 116/99 SpO2: 98% HT: 165.10 cm HT: 165.1 cm WT: 86.5 kg WT: 86.5 kg BMI: 31.73 General: alert, no acute distress Skin: warm, dry Head: no trauma, normocephalic Neck: Trachea midline, no tenderness, supple Eye: normal conjunctiva, sclera clear, PERRL, EOMI, vision unchanged ENMT: Oral mucosa moist, no pharyngeal erythema or exudate Cardiovascular: regular rate and rhythm Respiratory: Lungs CTA, respirations non labored, breath sounds equal Gastrointestinal: soft, non distended, no tenderness, no guarding Extremities: no deformity, no trauma Neurological: Alert and oriented, no focal neuro deficits Psychiatric: cooperative, affect appropriate for age, Medical Decision Making Patient presented with flulike symptoms. Her symptoms have been present for past few days. She does not appear to be toxic. Saturating 98% on room air. The patient was given ibuprofen. She is positive for COVID?19. Will discharge patient home follow-up with her primary care. She is instructed to return to the emergency room if her symptoms get worse, she develops chest pain, shortness of breath or any new symptoms. Assessment/Plan 1. COVID-19 virus infection (U07.1: COVID-19) Orders: ibuprofen, 600 mg = 1 tab(s), Tab, Oral, Once, Stop date 01/09/22 14:06:00 EDT, STAT, Start date 01/09/22 14:06:00 EDT, 01/09/22 14:06:00 EDT Group A Strep by PCR Influenza A&B Ag Rapid [place] [place] w/rfx Medications Administered Given ibuprofen 600 mg Tab, 600 mg, Oral Disposition Plan Patient Discharge Condition Stable Discharge Disposition Discharged home Discharge Prescription List Prescriptions No active prescription medications Follow-up With When Contact Information BENTLEY LUCERO In 3 days 01/12/2022 EDT [address] [place] [address]- Business (1) Additional Instructions: You should self quarantine for 5 days. Return to the emergency room if your symptoms get worse, you develop chest pain, shortness of breath or any new symptoms. Patient Education COVID-19 Frequently Asked Questions COVID-19 Problem List/Past Medical History Ongoing No qualifying data Historical Deaf mutism Medications Inpatient No active inpatient medications Home amoxicillin, Not taking cetirizine 10 mg Tab, 10 mg= 1 tab(s), Oral, Daily Flonase 0.05 mg/inh nasal spray, 1 spray(s), Nasal, BID ibuprofen, Not taking Protonix 40 mg Tab-EC, 40 mg= 1 tab(s), Oral, Daily Zithromax TRI-EUGENIA 500 mg oral tablet, 500 mg= 1 tab(s), Oral, Daily Zofran ODT 4 mg Tab, 4 mg= 1 tab(s), Oral, q6hr, PRN Allergies sulfa drugs (Rash) Social History Alcohol - Denies Alcohol Use, 03/08/2018 Current, 07/08/2019 Current, 05/16/2019 Substance Abuse - Denies Substance Abuse, 04/24/2019 Current, 07/08/2019 Tobacco - Denies Tobacco Use, 02/28/2016 Lab Results Rapid Strep: NEGATIVE1 (01/09/22 14:21:00) Influenzae A Ag: NEGATIVE1 (01/09/22 14:21:00) Influenzae B Ag: NEGATIVE1 (01/09/22 14:21:00) Rapid COVID Ag: Detected Abnormal (01/09/22 14:21:00) Rapid COV Int NEG Ctl: Pass (01/09/22 14:21:00) Rapid COV Int POS Ctl: Pass (01/09/22 14:21:00) First Test: Unknown (01/09/22 14:21:00) Employed in Healthcare: Unknown (01/09/22 14:21:00) Symptomatic as defined by CDC: YES (01/09/22 14:21:00) Hospitalized?: NO (01/09/22 14:21:00) ICU: NO (01/09/22 14:21:00) Resides in a Congregate Care Setting: NO (01/09/22 14:21:00) ?: Unknown (01/09/22 14:21:00) Diagnostic Results No qualifying data available. Normal [facility] Comment on above: Result Comment: Elec tronically Signed By: Paul Moss, Devendra H\.br\Date and Time Signed: 01/09/22 16:32 EDT ED Patient Summaryon 022 ED Patient Summary [address] [address] Patient Discharge Instructions Person Information Name: LEENA INTERIANO Age: 31 Years Arrival Date: 01/09/2022 13:49:16 Discharge Diagnosis: 1:COVID-19 virus infection Primary Care Physician: BENTLEY LUCERO CNP Provider Information Primary Provider: Devendra Miller M.D. [facility] Practitioner:None The exam and treatment you received in the Emergency Department were for an urgent problem and are not intended as complete care. It is important that you follow up with a doctor, nurse practitioner, or physician?s higher level teaching assistant for ongoing care. If your symptoms become worse or you do not improve as expected and you are unable to reach your usual health care provider, you should return to the Emergency Department. We are available 24 hours a day. LEENA INTERIANO has been given the following list of patient education materials, prescriptions and follow-up instructions: Follow-up Instructions: With: Address: When: BENTLEY LUCERO [address] [place] [address] Business (1) In 3 days 01/12/2022 Comments: You should self quarantine for 5 days. Return to the emergency room if your symptoms get worse, you develop chest pain, shortness of breath or any new symptoms. In the event that this physician does not participate in your insurance network, please consult with your insurance company to find a nearby participating provider. Patient Education Materials: COVID-19 Frequently Asked Questions; COVID-19 A MESSAGE TO ALL PATIENTS REGARDING OPIOIDS PRESCRIPTION OPIOIDS: WHAT YOU NEED TO KNOW Prescription opioids can be used to help relieve fyvwcxrh-mr-ktlqso pain and are often prescribed following a surgery or injury, or for certain health conditions. These medications can be an important part of the treatment but also come with serious risks. It is important to work with your healthcare provider to make sure you are getting the safest, most effective care. WHAT ARE THE RISKS AND SIDE EFFECTS OF OPIOID USE? Prescription opioids carry serious risks of addiction and overdose, especially with prolonged use. An opioid overdose, often marked by slowed breathing, can cause sudden . The use of prescription opioids can have a number of side effects as well, even when taken as directed: ? Tolerance?meaning you might need to take more of the medication for the same pain relief ? Physical dependence?meaning you have symptoms of withdrawal when a medication is stopped ? Increased sensitivity to pain ? Constipation ? Nausea, vomiting, and dry mouth ? Sleepiness and dizziness ? Confusion ? Depression ? Low levels of testosterone that can result in lower sex drive, energy, and strength ? Itching and sweating RISKS ARE GREATER WITH: ? History of drug misuse, substance use disorder, or overdose ? Mental health conditions (such as depression or anxiety) ? Sleep apnea ? Older age (65 years and older) ? Avoid alcohol while taking prescription opioids. Also, unless specifically advised by your health care provider, medications to avoid include: ? Benzodiazepines (such as Xanax or Valium) ? Muscle relaxants (such as Soma or Flexeril) ? Hypnotics (such as Ambien or Lunesta) ? Other prescription opioids KNOW YOUR OPTIONS Talk to your health care provider about ways to manage your pain that don?t involve prescription opioids. Some of these options may actually work better and have fewer risks and side effects. Options may include: ? Pain relievers such as acetaminophen, ibuprofen, and naproxen ? Some medication that are also used for depression or seizures ? Physical therapy and exercise ? Cognitive behavioral therapy, a psychological, goal-directed approach, in which patients learn how to modify physical, behavioral, and emotional triggers of pain and stress. IF YOU ARE PRESCRIBED OPIOIDS FOR PAIN: ? Never take opioids in greater amounts or more often than prescribed. ? Follow up with your primary health care provider. o Work together to create a plan on how to manage your pain. o Talk about ways to help manage your pain that don?t involve prescription opioids. o Talk about any and all concerns and side effects. ? Help prevent misuse and abuse o Never sell or share prescription opioids. o Never use another person?s prescription opioids. ? Store prescription opioids in a secure place and out of reach of others (this may include visitors, children, friends, and family). ? Safely dispose of unused prescription opioids: Find your community drug take-back program or your pharmacy mail-back program, or flush them down the toilet, following guidance from the Food and Drug Administration (www.fda.gov/Drugs/Res ourcesForYou). ? Visit www.cdc.gov/drugoverdo se to learn about the risks of opioids abuse and overdose. ? If you (more content not included)... Normal [facility] Influenza A&B Agon Influenzae A Ag Negative Normal Negative [facility] Comment on above: Performed By: #### 1 [id number] #### [facility] [address] [place] [address] Influenzae B Ag Negative Normal Negative [facility] Comment on above: Result Comment: Test sensitivity and specificity vary for age group, specimen type, antigen types, and prevalence of disease. Test results must be evaluated in conjunction with other clinical data available to the physician. Individuals who received nasally administered Influenza A vaccine may have positive test results up to 3 days after vaccination. Performed By: #### 1 [id number] #### [facility] [address] [place] [address] MICRO OTHER TESTSOrdered By: Ramses Camargo on 01-09-2022 Influenzae A Ag Negative (01/09/22 2:21 PM) Normal Negative [facility] [place] Influenzae B Ag Negative (01/09/22 2:21 PM) Normal Negative [facility] [place] [facility] Rapid COV Int NEG Ctl Pass (01/09/22 2:21 PM) Normal [facility] [place] Rapid COV Int POS Ctl Pass (01/09/22 2:21 PM) Normal [facility] [place] [facility] S. pyogenes Ag IA.rapid Ql (Throat) Negative (01/09/22 2:21 PM) Normal Negative [facility] [place] S[facility] SARS-CoV+SARS-CoV-2 (COVID-19) Ag IA.rapid Ql (Resp) Detected *ABN* (01/09/22 2:21 PM) Invalid Interpretation Code Not Detected [facility] [place] [facility] Rapid COVID Antigen ([facility])on 01-09-2022 Rapid COV Int NEG Ctl Pass Normal [facility] Comment on above: Performed By: #### 2 [id number] ####[facility] [address] [place] [address] Rapid COV Int POS Ctl Pass Normal [facility] Comment on above: Performed By: #### 2 [id number] ####[facility] [address] [place] [address] SARS-CoV+SARS-CoV-2 (COVID-19) Ag IA.rapid Ql (Resp) Detected Abnormal Not Detected [facility] Comment on above: Result Comment: The [employer]? System for Rapid Detection of SARS-CoV-2 is a chromatographic digital immunoassay intended for the direct and qualitative detection of SARS-CoV-2 nucleocapsid antigens in nasal swabs from individuals who are suspected of COVID-19 by their healthcare provider within the first five days of the onset of symptoms. Negative results should be treated as presumptive, do not rule out SARS-CoV-2 infection and should not be used as the sole basis for treatment or patient management decisions, including infection control decisions. Negative results should be considered in the context of a patient?s recent exposures, history and the presence of clinical signs and symptoms consistent with COVID-19, and confirmed with a molecular assay, if necessary, for patient management. For in vitro diagnostic use. In the [facility], only for use under an Emergency Use Authorization. In the [place], this test has not been FDA cleared or approved; this test has been authorized by FDA under an EUA for use by authorized laboratories; use by laboratories certified under the CLIA, 42 U.S.C. ?263a, that meet requirements to perform moderate, high, or waived complexity tests and at the Point of Care (POC), i.e., in patient care settings operating under a CLIA Certificate of Waiver, Certificate of Compliance, or Certificate of Accreditation. This test has been authorized only for the detection of proteins from SARS-CoV-2, not for any other viruses or pathogens; and, in the [facility], this test is only authorized for the duration of the declaration that circumstances exist justifying the authorization of emergency use of in vitro diagnostics for detection and/or diagnosis of the virus that causes COVID-19 under Section 564(b)(1) of the Act, 21 U.S.C. ? 360bbb-3(b)(1), unless the authorization is terminated or revoked sooner. Performed By: #### 2 [id number] ####[facility] [address] [place] [address] ADMITTED TO INTENSIVE CARE UNIT FOR CONDITION OF INTEREST:FIND:PT: NO Normal [facility] Comment on above: Performed By: #### 2 [id number] ####[place] [address] EMPLOYED IN A HEALTHCARE SETTING:FIND:PT: Unknown Normal [facility] Comment on above: Performed By: #### 2 [id number] ####[place] [address] FIRST TEST FOR CONDITION OF INTEREST:FIND:PT: Unknown Normal [facility] Comment on above: Performed By: #### 2 [id number] ####[place] [address] HAS SYMPTOMS RELATED TO CONDITION OF INTEREST:FIND:PT: YES Normal [facility] Comment on above: Performed By: #### 2 [id number] ####[place] [address] HOSPITALIZED FOR CONDITION OF INTEREST:FIND:PT: NO Normal [facility] Comment on above: Performed By: #### 2 [id number] ####[place] [address] STATUS:FIND:PT: Unknown Normal [facility] Comment on above: Performed By: #### 2 [id number] ####[place] [address] RESIDES IN A [facility] CARE SETTING:FIND:PT: NO Normal [facility] Comment on above: Performed By: #### 2 [id number] ####[place] [address] Rapid Strep w/rfxon 01-10-20 22 S. pyogenes Ag IA.rapid Ql (Throat) Negative Normal Negative [facility] Comment on above: Performed By: #### 2 [id number] ####[place] [address] Coding Summary.on 11-26-2021 Coding Summary. CD:[id number] Gh 0bWw+PGhlYWQ+GE2OVSKwY 29npZHmcF0MT2aBTT6DYWA WLEFQFZ3HNO3grFJ0FLjbH 2VybiAv UwxltOVbRC73LOo4ZWJ0tE mbKBachF2jdCTwG1y8OhMm ZA50bK39WVloCYYjJxM1Za ZpbjsgbWFy U4bzZyQiwCMtApe+PHRhYm xlIHdpZHRoPScxMDAlJyBz nXnhQY8bSq5zNZEmKOSuqO xhcHNlOiBj e7xoBRJvDUqvOI1eaCptH1 RezQU0BSMns8u6Bl70pKS+ EZVnWIQ6pEdeABilj595If Suz2auAHC8 uIGcHZaiMPY1W22kk7B8VU PjRFHdQLK3aCZ2yQ3boWcw raltM9UpaVRfXsL3IXU7nT GmaJ9psVkv wtlndK0dYzv+N90ZFJ8URB KDYG9JKgz2C8AwEceseGS+ OR13JSSqZO11xAUdaZSug5 fofRm7FzSn MEBsFER2dKmaHYhqu4FmMJ VfZ49qyXJvl9S7HQHogOkg dTEqBkEylLC8eZ4wBVasxv lgy3lvnaed Jcvfq6gbln00jK30S08rSB gmAFCvUSM7YAFnUOTwyFpm wp6shN5iYv8+ZCovi7eal7 jrxVs1OpSb DRPxomCagXoqXAO6n4KyHr 90G0DwqRlja4FfGhi5nz10 mHEec7E1qCS7PNiaZRMhvY 7cAMpqCmA0 KIUkFeVxzR62nFBgVJyfNz 8tgKzzjXxtQW6cOECyodby ZERqiM4rEBIxvHDupImsCS 4wNTBpbjtm d535PvAjCIP6QBHolRTkV0 TwvY4oPdIoGKZlLLQiF3Rg tSYqEDdvU214VIrzVcV2JW KkbnTjI8Xu GPMvaYllYrT6i3M4Vu7Et7 OfkadpLFV2NRvzIRDoMdS0 ElPyBiX5F7JdLut2ZKTvjJ xbQJ5jN1Ip OFZrcwguhdiwuIV9AAWxHW VvuN98mIClNWesJi2xe3S6 f478VPIkXSIzvP25Uc5frU ogMTBwdCBU oV5jmxhit4dxsatdWzWmIR LsVZj0KEs5GDTbuEneBnYp QNW4VoX2EIC5tVEukB5ukO aeympmeH8r Oyc+S12xjZ8eFOF2MNW8sd atTCJcxaRuAK60IQ60Q9Qq PjwvdGFibGU+PGRpdiBzdH cvSG6mUzYa j1axz1RfFHngR7LoIOMxBC zuMux3YIKfEOU0jOL6qV5j MTMmKIrmv5D3zEQ5K0Ssfq Pwpy8pl7xv UWIcROcgV61xgDNgl0O1EW EppXI0SFShaOcwTaPctM07 Oyc+GSKndRyvd9BtFhumr1 mpg4jzzIx2 UuEgIJYqstUqsWdxTQH4g7 QaWd54S78yWHduRSSuXWGg XABrVALmmKfeou7vpZ6aZp 8+PGNvbCB3 wIR8zD4vKHExBkV7BBacX7 38LvEmzMViEqjyh4vry5qm pDe2FtRkNCCxqpWpwJjrLN U7q3BkMs86 J78xTYaxZWOhSVNfTTYuMP QeqBbagr0ejF5uLt6+PC9j k7qidx80eE26jZS+PHRkIH L6oQlkXKlj RIIyjT8eBGcsZkU6SPGrIc OsyX88uBXdUOtgFf7mrDke oKvaHU5fOEUvegqds566Sw Tjl4xfDTDd zKNkRHthHVV8K43ot4N0VY YmCYSfWDX0dBZ0lT6vqNhx bjogbGVmdDsgdmVydGljYW blGDihC509 IHRvcDsnPlBhdGllbnQgTm DeOIz1T7LqCit7QROslSpr LF2vyFQjITfwVf9snGzzuZ aqHX0yPQAh mszhy425TaWpl8ogUNTlbC LnUZwcHLU1V25pk9A1FMBn DTFnAVF7wJU4lO4vaTzyun ogbGVmdDsg ioNmiEauCTzgRNseX637XU RvcDsnPkJpcnRoIERhdGU6 KA45UB06xJJhb6C7iNQ2D4 BhZGRpbmct czupwQS8XWCuXPXsrW26Df 5paNsfOh1cLRFaBRL6MOKz eEHyT9LvnA9rKnOyTEMvIH PbN7UqnIUw RKraV063SRisNjR8OZUygb BiO0WbKSDnbUhuUzK3s0B4 Kp5HI0G7CJ32KA64xNSjj7 A2aMF5W8Uj JOLeeyjbmyxhjYH6JBKlRE JeiH47Bd3rdXgrMo0hOWZg CZY5LIGnvQLeV3XrkJ9wFg AjMDAwMDAw E2QdeHTzDVojV901AChbFv Z6ZCLkltUgL0RzAPNlkPmy CeC6g9G1Pm5NXKp6SJ56VU 87eTIfw4Q2 bEA3U3JaFNSrmtracclkpY Z0UKYxCMNhnC34Xf5qlAqw Kt5cFPStYJL1KEVokYFkH3 KhbG3dSwVu UXSuKQRxR9AswOYyJGqbN5 07KIybBzY4DSPcusAmR9Td WGWgnTiiIlT3o5U0Gq6AWS ZcDQ71WUV3 eDS3FH32BA67L6RaAuccjM FibGU+PHRhYmxlIHdpZHRo NBlvRGUbHyYllJmbII0dBv 9yZGVyLWNv nDaikNGpXzJho6rsUHPgDV zsEY6ltVciR3TbvPU1MNBx v0i1Lb66H25iG1EzdOF+PG CyyLP6lLL6 wX4fXbDfAgS7WLxwW639Jd NgbDRgDcume8bjf9zmsYa2 ThC9DPJoooIsySzlGYS3w4 ZjCf95C02u IHdpZHRoPSIxNSUiIHZhbG gxjh5adX0qUb0+PGNvbCB3 rMV7rI0lKlVcXaE7RGtvK0 49InRvcCIv Xdgae9drz6shcMk5FtGiFR LavdLyjLqwKTM9o2YfAu30 M2KqbIpic4UoTff9nz80cC Mol1N1jVJ4 Q3QyILDajvjxrMZgvMrcXD 6kXCWrlfkvCLQjxZ5rRYTj H9q6LrNsLtT8KXubW2Shix U8TWJcgALx MDypJGW8W58wf0Z5XSTyKC XdZXV6qSG8uW9zaFwxhybl bGVmdDsgdmVydGljYWwtYW gkL474ATOf bQdpAEEqfF4yFIPbcTLemG eiXG2kVHStxvdiSobDHAcc IEpBREEgTTwvdGQ+PHRkIH D5yIxmQQfw ZGKmrG0gEDUfK6a2FuZcKc C8DBzlN4HfNWPjvqklUs49 mL5uPsKqJlX8FHvhA4Kpjq N1VNWooDNf MMxsDXA1B72wc2P2FCFeOY HmBYR1vYA4jO6puCbdspmy bGVmdDsgdmVydGljYWwtYW pzD729AAOh pFwlNxH9MzQ5LnC8ZYA3T3 YrGzl5YYIuqCocAZ9odXFo XXtmGb5mvUqkpJpvNA6bUC BpbjtwYWRk dI7tQDPubOEplDamPD0aBM Hzjqubo962HcGrDLD0WNVe sADrU9KxnB6nVvNmHQNrJG HfU2UniQFe TBarU256YKigJcF7STMtfh NmQ1WbETGaaIiwJyL6p5X5 Oi4tIFCWOWLuhsxwfZP+PH KaJWQ3mSds FGduNBJqmT2gAPKmA1h1Vb DcAtC9ILjpH6KsVFAygvzr Eq52rG8lJmUlBqI2JUtwD4 XodtD4UZKi lESmYTwhFZS0T00mx3O0PP NfVFGdFRW8yKL8tU5fvOym bjogbGVmdDsgdmVydGljYW oiIBtvM003 IHRvcDsnPkZlbWFsZTwvdG Q+DIZgRHL0aRwrHCdqTESz gC2xJIVlS0i3LrDrTkX3VH mqV8MeQKTk zxweYc60xF0oLvBsLzE0NL fzH1FrmxE9FRFijGVcPHbr OKY8S98xx3P8GLQlOTJoJD R2oSX3sO0x bGlnbjogbGVmdDsgdmVydG idHKfqMYjsL463CKHsjQcf ZvQvBMUjYO4wsDqycWY+PC 67ai98R2Cm ChyoXtx7CNOaKJM0eUH9lR 3kIKLjBXegh0V6kGQ3P0Oo fxBzmp9hp5rrEQVbNEmhN9 5srJTdh8O0 EHRhjPA1SIRfkHkiRmGbcX 93Oyc+USUrqPfgn6ArQndv y8gql5wpwMw9EwJyAZBkov FsaWduPSJ0 f2GuQy60I40eAVpuPZSzHT UgJRHaANBvkAxmoq9oxM4t Ii8+ISVtxSF1cLP6oB1rNc ZgPlL9YLmr Y653JjUmlVMaJwqaq9rwq4 wrhNt1YrTbEDFdcqFqyIkn MTP0h7ZtBv65O7DekWizu8 MdOxh9hj82 hDKpy4Q5kRY7X1BdBNHyzz fnyCLwgShcLW1eXQWvdaxh ZVFsrW8mLHFkS1c8IwQdRt T3MGvdP4Zi kgO9GMJtxSCnTKZmeWKBhI 5ntkzme2cycctxZeLkWTJe JZl9XBe8AEYwnSknClCdRT N8IwL7MUI2 fXHbmC8zgJnzscabzQ7jTt c+RGo3l0riuYImGN2mkJS4 SX10VH92uHAoq1Q5vLA3M5 BhZGRpbmct hxdxkPB2CLLjWZKxjD17Ww 8qqKypBv4tFHRfKSR4WOYr aHImJ8HmrO9mUuQmILEkMF BvA6YijNEi WCxeC276XLkpFkC8DFOwao SfU0KuAJWdcJthYsH9d7A2 Mx2LZH65YK79GA97qWRrl6 L8aJR4P5Ws WSSnwuwglyqdgEL8MCDwGH EapG25Td9aqSiuIw0kNHCk MBW5ERAuwNByU8AmpD2nNz AjMDAwMDAw B2ZafQKlCNejS139LVmsDe M2OBGuahHeI4MsMGFzfFrt RmV9e9M3Wz5ITb56MQ43IB 89yCBzt2V2 wBQ2R2DfUQKfdshwfkhtcS W2MKOjAHKsuK67Hq8unGve Wf4mUJIaDLC5QEQivIHsX4 OeeM2sOtXi UFFhYAHsG5BxzCXrEExjM6 19YIuhBiH2MLRzfpKmK1Nl EZFweFptNmY7f8D6Ds8QKF zpqag1S2Sx PjwvdHI+IY08IYTvFW05wW QmuQIje9nlpSq7HuZgOXJs SBP7jIerKPpym7JoGGFaV9 3dmARqh6C5 IGNv (more content not included)... Normal [facility] ED Note-Physicianon 11-20-19 ED Note-Physician Basic Information Time Seen: Cecil ETIENNEGrant 11/18/2021 12:16 Chief Complaint pt c/o chest pain x2days and c/o nausea but no vomiting. History of Present Illness 31-year-old female comes to the ED for evaluation of chest pain. 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 For the last 2 days she has had that she describes as sharp. She has been nauseous but no vomiting. She points to the epigastrium as the area of tenderness. No cough, fever or shortness of breath. She is concerned for A. fib as of the family history of this. She has no personal history of cardiac disease. Review of Systems A 10 point review of systems is negative except as noted above. Medical and Surgical History: Reviewed and noted Social history: Lives at home Tobacco: Denies Physical Exam Vitals & Measurements T: 37.0 ?C(Oral) HR: 85(Peripheral) RR: 18 BP: 129/88 SpO2: 98% HT: 165.0 cm HT: 165 cm WT: 86.5 kg WT: 86.5 kg BMI: 31.77 Nurses notes and vital signs reviewed and patient is not hypoxic. General: The patient appears well and in no significant distress Patient is resting comfortably on the exam bed. Skin: Warm, dry, no pallor noted. Head: Atraumatic. Neck: No JVD. Eye: Normal conjunctiva. Ears, Nose, Mouth, and Throat: Moist mucous membranes Cardiovascular: Strong distal pulses. Chest wall: Respiratory: Respirations are nonlabored. Back: Normal range of motion, no CVA tenderness. Musculoskeletal: Normal ROM with no gross deformity. Gastrointestinal: Soft and nontender. Urological: Neurological: Awake and alert. No focal deficits. Follows commands. GCS 15. Psychiatric: Cooperative. Medical Decision Making Patient with 2-day history of epigastric abdominal pain/chest pain. She does take oral control but is not tachycardic or hypoxic. She has no shortness of breath. Pain is not pleuritic. Her concern was A. fib versus a family history of this. EKG shows no ischemic changes. Chest x-ray showed no acute infiltrate. She was treated with GI cocktail with improvement. She be discharged home with working diagnosis of gastritis and started on omeprazole. She to follow-up with her PCP. Patient was encouraged to return to the ED if symptoms worsen or change. Assessment/Plan Gastritis (K29.70: Gastritis, unspecified, without bleeding) Orders: Al hydroxide/Mg hydroxide/simethicone, 30 mL, Susp-Oral, Oral, Once, Stop date 11/18/21 13:26:00 EST, STAT, Start date 11/18/21 13:26:00 EST atropine/hyoscyamine/P B/scopolamine, 10 mL, Elixir, Oral, Once, Stop date 11/18/21 13:26:00 EST, STAT, Start date 11/18/21 13:26:00 EST lidocaine topical, 200 mg, 10 mL, Soln-Oral, Oral, Once, Stop date 11/18/21 13:26:00 EST, STAT, Start date 11/18/21 13:26:00 EST omeprazole, 40 mg = 1 cap(s), Oral, Daily, X 10 day(s), # 10 cap(s), Refills(s) 0, Pharmacy: [facility], 165, cm, 11/18/21 12:18:00 EST, Height/Length Dosing, 86.5, kg, 11/18/21 12:18:00 EST, Weight Dosing .Manual Abs Basic Metabolic Panel CBC w/ Auto Diff eGFR Hepatic Function Panel Lipase Level Manual Diff Troponin 0 Hr. UA With Cult Reflex Medications Administered Given Al hydroxide/Mg hydroxide/simethicone 200 mg-200 mg-20 mg/5 mL oral suspension, 30 mL, Oral Elixir, 10 mL, Oral lidocaine Viscous Top 2% Sepideh 15 mL, 200 mg, Oral Disposition Plan Patient Discharge Condition Disposition: Discharged home Condition: Improved and stable Counseled: Patient and/or family were counseled to workup, results, treatment plan and follow-up recommendations Discharge Prescription List Prescriptions omeprazole 40 mg Cap-DR, 40 mg= 1 cap(s), Oral, Daily Follow-up With When Contact Information BENTLEY LUCERO In 3 days 11/21/2021 EST [address] [place] [address]- [facility] (1) Additional Instructions: Patient Education Gastritis, Adult Attestation Patient seen and evaluated by the physician higher level teaching assistant. Attending physician was present in the emergency department and supervised care. This visit was performed by both the physician and an APC. I performed all aspects of the MDM as documented. This report was transcribed using voice recognition software. Every effort was made to ensure accuracy, however, inadvertently computerized cane weigher mistakes may be present. Appropriate healthcare PPE was used in evaluating this patient. The patient was placed in a mask. The healthcare provider was wearing mask, gloves, and utilizing proper hand hygiene. All equipment was properly cleansed. Problem List/Past Medical History Ongoing No qualifying data Historical Deaf mutism Medications Inpatient No active inpatient medications Home amoxicillin, Not taking cetirizine 10 mg Tab, 10 mg= 1 tab(s), Oral, Daily Flonase 0.05 mg/inh nasal spray, 1 spray(s), Nasal, BID ibuprofen, Not taking Protonix 40 mg Tab-EC, 40 mg= 1 tab(s), Oral, Daily Zithromax TRI-EUGENIA 500 mg oral tablet, 500 mg= 1 tab(s), Oral, Daily (more content not included)... Normal [facility] Comment on above: Result Comment: Elec tronically Signed By: Grant Jacob PA-C\.br\Date and Time Signed: 11/18/21 14:10 EST\.br\Electronically Co-Signed By: Kristopher Clemons DO\.br\Date and Time Co-Signed: 11/19/21 07:37 EST .Manual Abson 11-18-2021 Basophils/Leukocytes Manual cnt (Bld) [Pure # fraction] 0.1 E9/L Normal 0.0-0.2 [facility] Comment on above: Performed By: #### 3 [id number], [id number], [id number], [id number], [id number] ####[facility] [address] [place] [address] Eosinophils/Leukocytes Manual cnt (Bld) [Pure # fraction] 0.1 E9/L Normal 0.0-0.5 [facility] Comment on above: Performed By: #### 3 [id number], [id number], [id number], [id number], [id number] ####[facility] [address] [place] [address] Lymphocytes/Leukocytes Manual cnt (Bld) [Pure # fraction] 1.6 E9/L Normal 1.0-4.0 [facility] Comment on above: Performed By: #### 3 [id number], [id number], [id number], [id number], [id number], [id number] ####[facility] [address] [place] [address] Monocytes/Leukocytes Manual cnt (Bld) [Pure # fraction] 0.6 E9/L Normal 0.2-1.0 [facility] Comment on above: Performed By: #### 3 [id number], [id number], [id number], [id number], 7019676, [id number], [id number] ####[facility] [address] [place] [address] Neutrophils/Leukocytes Auto (Bld) [Pure # fraction] 3.9 E9/L Normal 2.0-7.5 [facility] Comment on above: Performed By: #### 3 [id number], 2635213, 3708079, 7152773, 03700434, 1646196, 42401561, 2604084 ####[facility] [id number] [place] [address] BMPon 11-18-2021 Creatinine [Mass/Vol] 0.7 mg/dL Normal 0.5-1.3 [facility] [place] Comment on above: Performed By: #### 3 [id number], 6626101, 2080630, 8629814, 56224540, 4475486, 15543702, 9147773 #### [facility] [address] [place] [address] Urea nitrogen [Mass/Vol] 11 mg/dL Normal 5-21 [facility] Comment on above: Performed By: #### 3 [id number], 8693895, 7932398, 9269714, 90144557, 2431969, 15659782, 3936555 #### [facility] [address] [place] [address] Urea nitrogen/Creatinine [Mass ratio] 16 No Units Normal 10-20 [facility] Comment on above: Performed By: #### 3 [id number], 7218946, 4561268, 5689001, 85094077, 9522924, 82477305, 3594121 #### [facility] [address] [place] [address] Anion gap [Moles/Vol] 12 mmol/L Normal 6-16 [facility] [place] Comment on above: Performed By: #### 3 [id number], 9275241, 7037762, 2681965, 79349210, 4276112, 33123144, 3664580 #### [facility] [address] [place] [address] Calcium [Mass/Vol] 9.0 mg/dL Normal 8.9-11.1 [facility] Comment on above: Performed By: #### 3 [id number], 7825382, 9933201, 0518484, 17431198, 9189645, 78030564, 4786562 #### [facility] [address] [place] [address] Chloride [Moles/Vol] 104 mmol/L Normal 101-111 [facility] Comment on above: Performed By: #### 3 8937116, 9894418, 2931959, 7451658, 88286261, 2365745, 15011301, 9584243 #### [facility] [address] [place] [address] CO2 [Moles/Vol] 24 mmol/L Normal 21-31 [facility] [place] Comment on above: Performed By: #### 3 2476096, 2133052, 3061631, 7951701, 12451502, 0388516, 66237546, 4281863 #### [facility] [address] [place] [address] Glucose [Mass/Vol] 87 mg/dL Normal 55-199 [facility] Comment on above: Result Comment: If t his glucose result represents a fasting glucose, interpretation should refer to the following reference range: 55-99 mg/dL Performed By: #### 3 4493744, 7350392, 6815191, 9299433, 84381209, 8565934, 13993163, 5888844 #### [facility] [place] [facility] [address] [place] [address] Potassium [Moles/Vol] 3.7 mmol/L Normal 3.5-5.3 [facility] [place] Comment on above: Performed By: #### 3 0283679, 0630357, 0464763, 2134236, 20001580, 6668077, 73827133, 5369492 #### [facility] [place] [facility] [address] [place] [address] Sodium [Moles/Vol] 136 mmol/L Normal 135-145 [facility] [place] Comment on above: Performed By: #### 3 2841621, 7765786, 3071116, 1992224, 51746658, 3715753, 59208180, 8649101 #### [facility] [place] [facility] [address] [place] [address] CBC w/ Auto Diffon Erythrocyte distribution width (RBC) [Ratio] 14.6 % High 10.9-14.2 [facility] [place] Comment on above: Performed By: #### 3 7928031, 2925250, 0534063, 0207170, 09739155, 1196183, 75497265, 1026159 #### [facility] [place] [facility] [address] [place] [address] Hematocrit (Bld) [Volume fraction] 36.0 % Normal 34.0-46.0 [facility] [place] Comment on above: Performed By: #### 3 4554338, 1676928, 8180848, 4852201, 78312094, 4062001, 52829528, 7631358 #### [facility] [address] [place] [address] Hemoglobin (Bld) [Mass/Vol] 12.3 g/dL Normal 12.0-16.0 [facility] [place] Comment on above: Performed By: #### 3 1218194, 6084279, 9004069, 4732211, 39970310, 4501306, 98592161, 7119396 #### [facility] [place] [facility] [address] [place] [address] MCH (RBC) [Entitic mass] 26.4 pg Low 27.0-34.0 [facility] [place] Comment on above: Performed By: #### 3 8819964, 9416693, 8077263, 6832974, 38753285, 7386322, 65102701, 8729195 #### [facility] [place] [facility] [address] [place] [address] MCHC (RBC) [Mass/Vol] 34.1 g/dL Normal 31.4-36.0 [facility] [place] Comment on above: Performed By: #### 3 6898317, 1867589, 8618588, 5014734, 82940867, 9666831, 33597118, 3145320 #### [facility] [place] [facility] [address] [place] [address] MCV (RBC) [Entitic vol] 77.3 fL Low 80.0-100.0 [facility] Comment on above: Performed By: #### 3 5140700, 2282598, 1812718, 5702697, 73686023, 1128062, 75480968, 5406954 #### [facility] [place] [facility] [address] [place] [address] Platelet mean volume (Bld) [Entitic vol] 9.3 fL Normal 6.4-10.8 [facility] [place] Comment on above: Performed By: #### 3 5376890, 9389906, 0836895, 6415567, 90097477, 3655786, 65384563, 0355148 #### [facility] [place] [facility] [address] [place] [address] Platelets (Bld) [#/Vol] 250.0 E9/L Normal 150.0-500.0 [facility] [place] Comment on above: Performed By: #### 3 8897642, 5083515, 6787232, 9575633, 88388871, 8395870, 31476478, 6740058 #### [facility] [place] [facility] [address] [place] [address] RBC (Bld) [#/Vol] 4.6 E12/L Normal 4.3-5.9 [facility] [place] Comment on above: Performed By: #### 3 0864253, 9322511, 3627102, 0909407, 87319876, 4871419, 10415980, 0361797 #### [facility] [place] [facility] [address] [place] [address] WBC corrected for nucl RBC Auto (Bld) [#/Vol] 6.3 E9/L Normal 4.0-11.0 [facility] [place] Comment on above: Performed By: #### 3 6644545, 2122941, 1891835, 2220449, 86623377, 0823794, 11069115, 7324378 #### [facility] [place] [facility] [address] [place] [address] Consent for Treatmenton Consent for Treatment [id number] 0CD:127 Normal [facility] Discharge Instructionson Discharge Instructions [id number] 0CD:127 Normal [facility] ED Clinical Summaryon 2021 ED Clinical Summary [address] [address] ED Clinical Summary Person Information Name: LEENA INTERIANO [facility] Age: 31 Years : 1990 Sex: Female Language: Sign Language PCP: BENTLEY LUCERO CNP Marital Status: Phone: [phone] Visit Id: Visit Reason: Nausea; Chest pain; chest pain Speciality: Acuity: 3 Enc Type: Emergency Med Service: Emergency Arrival: 11/18/2021 12:10:57 Discharge: 11/18/2021 14:10:00 LOS: 000 02:00 Checkin: 11/18/2021 12:10:57 Checkout: 11/18/2021 14:10:00 Dispo Type: Home (Routine DC) EVENTS: Event Name Event Status Request Date/Time Start Date/Time Complete Date/Time Arrive Complete 11/18/2021 12:10:57 11/18/2021 12:10:57 11/18/2021 12:10:57 Document Home Meds Request 11/18/2021 12:10:57 Triage Complete 11/18/2021 12:10:57 11/18/2021 12:18:41 11/18/2021 12:18:41 Bed Assign Complete 11/18/2021 12:12:15 11/18/2021 12:12:15 11/18/2021 12:12:15 Dr Exam Complete 11/18/2021 12:12:15 11/18/2021 12:16:12 11/18/2021 12:16:12 RN Exam Complete 11/18/2021 12:12:15 11/18/2021 12:27:04 11/18/2021 12:27:04 EKG Complete 11/18/2021 12:14:07 11/18/2021 12:18:33 X-Ray Complete 11/18/2021 12:14:48 11/18/2021 12:36:12 11/18/2021 12:56:04 Registration Complete 11/18/2021 12:16:12 11/18/2021 12:24:33 11/18/2021 12:24:33 Dr Exam Complete 11/18/2021 12:18:58 11/18/2021 12:18:58 11/18/2021 12:18:58 Reg Complete Request 11/18/2021 12:24:33 Reg Bed Request Complete 11/18/2021 12:24:33 11/18/2021 12:24:33 11/18/2021 12:24:33 Pending Labs Request 11/18/2021 12:44:55 Lab Request 11/18/2021 12:44:55 Urine Collect Request 11/18/2021 12:44:55 Wet Read Complete 11/18/2021 12:56:04 11/18/2021 13:02:03 11/18/2021 13:02:03 Pending Labs Complete 11/18/2021 13:09:34 11/18/2021 13:09:34 11/18/2021 13:30:59 Lab Complete 11/18/2021 13:09:34 11/18/2021 13:09:34 11/18/2021 13:30:59 Meds Admin Complete 11/18/2021 13:27:09 11/18/2021 13:42:16 Pending Labs Complete 11/18/2021 13:29:51 11/18/2021 13:29:51 11/18/2021 13:50:49 Lab Complete 11/18/2021 13:29:51 11/18/2021 13:29:51 11/18/2021 13:50:49 Pending Labs Complete 11/18/2021 13:29:51 11/18/2021 13:29:51 11/18/2021 13:50:49 Discharge Complete 11/18/2021 14:08:38 11/18/2021 14:15:52 11/18/2021 14:15:52 Transfer Complete 11/18/2021 14:15:52 11/18/2021 14:15:52 11/18/2021 14:15:52 ADDRESS: [address] [place] [id number] PHYS DOC NOTES: MEDICAL INFORMATION: Prescriptions Given: New Medications [facility] 1985, [address] [facility] [place], [place] [id number], [phone] omeprazole (omeprazole 40 mg Madisyn) 1 Capsules By Mouth every day for 10 Days. Refills: 0. Medications to Continue with No Changes Other Medications amoxicillin azithromycin (Zithromax TRI-EUGENIA 500 mg oral tablet) 1 Tablets By Mouth every day. Refills: 0. cetirizine (cetirizine 10 mg Tab) 1 Tablets By Mouth every day. Refills: 0. fluticasone nasal (Flonase 0.05 mg/inh nasal spray) 1 Sprays Nasal Inhalation 2 times a day. each nostril. Refills: 0. ibuprofen ondansetron (Zofran ODT 4 mg Tab) 1 Tablets By Mouth every 6 hours as needed Nausea/Vomiting. Refills: 0. pantoprazole (Protonix 40 mg Tab-EC) 1 Tablets By Mouth every day. Refills: 0. PATIENT EDUCATION INFORMATION: Instructions: Gastritis, Adult Follow up: With: Address: When: BENTLEY LUCERO [address] [place] [address] Business (1) In 3 days 11/21/2021 DIAGNOSIS: Gastritis Normal [facility] [place] ED Patient Education Noteon 11-18-2021 ED Patient Education Note Gastroenterology Gastritis, Adult Gastritis is inflammation of the stomach. There are two kinds of gastritis: ? Acute gastritis. This kind develops suddenly. ? Chronic gastritis. This kind is much more common and lasts for a long time. Gastritis happens when the lining of the stomach becomes weak or gets damaged. Without treatment, gastritis can lead to stomach bleeding and ulcers. What are the causes? This condition may be caused by: ? An infection. ? Drinking too much alcohol. ? Certain medicines. These include steroids, antibiotics, and some lqaw-vow-vhzqytd medicines, such as aspirin or ibuprofen. ? Having too much acid in the stomach. ? A disease of the intestines or stomach. ? Stress. ? An allergic reaction. ? Crohn's disease. ? Some cancer treatments (radiation). Sometimes the cause of this condition is not known. What are the signs or symptoms? Symptoms of this condition include: ? Pain or a burning sensation in the upper abdomen. ? Nausea. ? Vomiting. ? An uncomfortable feeling of fullness after eating. ? Weight loss. ? Bad breath. ? Blood in your vomit or stools. In some cases, there are no symptoms. How is this diagnosed? This condition may be diagnosed with: ? Your medical history and a description of your symptoms. ? A physical exam. ? Tests. These can include: ? Blood tests. ? Stool tests. ? A test in which a thin, flexible instrument with a light and a camera is passed down the esophagus and into the stomach (upper endoscopy). ? A test in which a sample of tissue is taken for testing (biopsy). How is this treated? This condition may be treated with medicines. The medicines that are used vary depending on the cause of the gastritis: ? If the condition is caused by a bacterial infection, you may be given antibiotic medicines. ? If the condition is caused by too much acid in the stomach, you may be given medicines called H2 blockers, proton pump inhibitors, or antacids. Treatment may also involve stopping the use of certain medicines, such as aspirin, ibuprofen, or other NSAIDs. Follow these instructions at home: Medicines ? Take ksvt-fij-gevnmqc and prescription medicines only as told by your health care provider. ? If you were prescribed an antibiotic medicine, take it as told by your health care provider. Do not stop taking the antibiotic even if you start to feel better. Eating and drinking ? Eat small, frequent meals instead of large meals. ? Avoid foods and drinks that make your symptoms worse. ? Drink enough fluid to keep your urine pale yellow. Alcohol use ? Do not drink alcohol if: ? Your health care provider tells you not to drink. ? You are , may be , or are planning to become . ? If you drink alcohol: ? Limit your use to: ? 0?1 drink a day for women. ? 0?2 drinks a day for men. ? Be aware of how much alcohol is in your drink. In the [place] one drink equals one 12 oz bottle of beer (355 mL), one 5 oz glass of wine (148 mL), or one 1? oz glass of hard liquor (44 mL). General instructions ? Talk with your health care provider about ways to manage stress, such as getting regular exercise or practicing deep breathing, meditation, or yoga. ? Do not use any products that contain nicotine or tobacco, such as cigarettes and e-cigarettes. If you need help quitting, ask your health care provider. ? Keep all follow-up visits as told by your health care provider. This is important. Contact a health care provider if: ? Your symptoms get worse. ? Your symptoms return after treatment. Get help right away if: ? You vomit blood or material that looks like coffee grounds. ? You have black or dark red stools. ? You are unable to keep fluids down. ? Your abdominal pain gets worse. ? You have a fever. ? You do not feel better after one week. Summary ? Gastritis is inflammation of the lining of the stomach that can occur suddenly (acute) or develop slowly over time (chronic). ? This condition is diagnosed with a medical history, a physical exam, or tests. ? This condition may be treated with medicines to treat infection or medicines to reduce the amount of acid in your stomach. ? Follow your health care provider's instructions about taking medicines, making changes to your diet, and knowing when to call for help. This information is not intended to replace advice given to you by your health care provider. Make sure you discuss any questions you have with your health care provider. Document Released: 08/25/2002 Document Revised: 01/18/2019 Document Reviewed: 01/18/2019 [employer] Patient Education ? 2019 [employer]. Normal [facility] ED Patient Summaryon 022 ED Patient Summary [address] [address] Patient Discharge Instructions Person Information Name: LEENA INTERIANO Age: 31 Years Arrival Date: 11/18/2021 12:10:57 Discharge Diagnosis: Gastritis Primary Care Physician: BENTLEY LUCERO CNP Provider Information Primary Provider: Kristopher Clemons DO [facility] Practitioner:Grant Jacob PA-C The exam and treatment you received in the Emergency Department were for an urgent problem and are not intended as complete care. It is important that you follow up with a doctor, nurse practitioner, or physician?s higher level teaching assistant for ongoing care. If your symptoms become worse or you do not improve as expected and you are unable to reach your usual health care provider, you should return to the Emergency Department. We are available 24 hours a day. LEENA INTERIANO has been given the following list of patient education materials, prescriptions and follow-up instructions: Follow-up Instructions: With: Address: When: BENTLEY LUCERO [address] [place] [address] Business (1) In 3 days 11/21/2021 In the event that this physician does not participate in your insurance network, please consult with your insurance company to find a nearby participating provider. Patient Education Materials: Gastritis, Adult A MESSAGE TO ALL PATIENTS REGARDING OPIOIDS PRESCRIPTION OPIOIDS: WHAT YOU NEED TO KNOW Prescription opioids can be used to help relieve ebdbinot-oq-cyywfr pain and are often prescribed following a surgery or injury, or for certain health conditions. These medications can be an important part of the treatment but also come with serious risks. It is important to work with your healthcare provider to make sure you are getting the safest, most effective care. WHAT ARE THE RISKS AND SIDE EFFECTS OF OPIOID USE? Prescription opioids carry serious risks of addiction and overdose, especially with prolonged use. An opioid overdose, often marked by slowed breathing, can cause sudden . The use of prescription opioids can have a number of side effects as well, even when taken as directed: ? Tolerance?meaning you might need to take more of the medication for the same pain relief ? Physical dependence?meaning you have symptoms of withdrawal when a medication is stopped ? Increased sensitivity to pain ? Constipation ? Nausea, vomiting, and dry mouth ? Sleepiness and dizziness ? Confusion ? Depression ? Low levels of testosterone that can result in lower sex drive, energy, and strength ? Itching and sweating RISKS ARE GREATER WITH: ? History of drug misuse, substance use disorder, or overdose ? Mental health conditions (such as depression or anxiety) ? Sleep apnea ? Older age (65 years and older) ? Avoid alcohol while taking prescription opioids. Also, unless specifically advised by your health care provider, medications to avoid include: ? Benzodiazepines (such as Xanax or Valium) ? Muscle relaxants (such as Soma or Flexeril) ? Hypnotics (such as Ambien or Lunesta) ? Other prescription opioids KNOW YOUR OPTIONS Talk to your health care provider about ways to manage your pain that don?t involve prescription opioids. Some of these options may actually work better and have fewer risks and side effects. Options may include: ? Pain relievers such as acetaminophen, ibuprofen, and naproxen ? Some medication that are also used for depression or seizures ? Physical therapy and exercise ? Cognitive behavioral therapy, a psychological, goal-directed approach, in which patients learn how to modify physical, behavioral, and emotional triggers of pain and stress. IF YOU ARE PRESCRIBED OPIOIDS FOR PAIN: ? Never take opioids in greater amounts or more often than prescribed. ? Follow up with your primary health care provider. o Work together to create a plan on how to manage your pain. o Talk about ways to help manage your pain that don?t involve prescription opioids. o Talk about any and all concerns and side effects. ? Help prevent misuse and abuse o Never sell or share prescription opioids. o Never use another person?s prescription opioids. ? Store prescription opioids in a secure place and out of reach of others (this may include visitors, children, friends, and family). ? Safely dispose of unused prescription opioids: Find your community drug take-back program or your pharmacy mail-back program, or flush them down the toilet, following guidance from the Food and Drug Administration (www.fda.gov/Drugs/Res ourcesForYou). ? Visit www.cdc.gov/drugoverdo se to learn about the risks of opioids abuse and overdose. ? If you believe you may be struggling with addiction, tell your health day care supervisor and ask for guidance or call [facility]?S National Helpline at 8-566-339-URXN. t Source: [place] Department of Health and Human Se (more content not included)... Normal [facility] Hep Func Panelon 11-18-2021 Bilirubin.indirect [Mass or moles/Vol] UTC Abnormal 0.1-0.9 [facility] Comment on above: Result Comment: Resu lt verified by Discern Rule. Performed result UTC (Unable to Calculate) was sent as an Alpha code due the inability to calculate a valid numeric value. Performed By: #### 3 4927557, 1233720, 2916219, 5715281, 24991644, 9761801, 76244716, 5369260 #### [facility] [address] [place] [address] Albumin [Mass/Vol] 4.0 g/dL Normal 3.3-5.0 [facility] Comment on above: Performed By: #### 3 9420839, 8142650, 6529612, 3542206, 41776354, 2707969, 85874160, 5054807 #### [facility] [address] [place] [address] Albumin/Globulin (S) [Mass conc ratio] 1.2 Normal 1.1-2.2 [facility] Comment on above: Performed By: #### 3 4456242, 4310269, 9469163, 7084694, 90098221, 2331764, 31082451, 4288178 #### [facility] [address] [place] [address] ALP [Catalytic activity/Vol] 50 Int._Unit/L Normal 21-98 [facility] Comment on above: Performed By: #### 3 1386773, 0360147, 9947424, 9878987, 27857971, 0024461, 57315020, 5483645 #### [facility] [address] [place], [place] [address] ALT No additional P-5'-P [Catalytic activity/Vol] 14 Int._Unit/L Normal 6-46 [facility] Comment on above: Performed By: #### 3 4426098, 5716949, 0886680, 6431148, 64301003, 1818526, 21851618, 6277914 #### [facility] [address] [place], [place] [address] AST [Catalytic activity/Vol] 17 Int._Unit/L Normal 5-43 [facility] Comment on above: Performed By: #### 3 9485835, 4786361, 8670571, 7994614, 28505965, 5705963, 07036348, 4587863 #### [facility] [address] [place], [place] [address] Bilirubin [Mass/Vol] 0.6 mg/dL Normal 0.0-1.1 [facility] Comment on above: Performed By: #### 3 6282013, 9617268, 0375472, 6802779, 87564562, 1211627, 81892713, 3186645 #### [facility] [address] [place] [address] Bilirubin.direct [Mass/Vol] mg/dL Normal 0.1-0.4 [facility] Comment on above: Performed By: #### 3 0123086, 9213659, 0596347, 5889696, 77404730, 9741658, 17845339, 7734117 #### [facility] [address] [place] [address] Globulin (S) [Mass/Vol] 3.3 g/dL Normal 1.4-4.0 [facility] Comment on above: Performed By: #### 3 1322993, 6098023, 1180770, 6522443, 10382010, 5553775, 19562606, 2022150 #### [facility] [address] [place] [address] Protein [Mass/Vol] 7.3 g/dL Normal 6.0-7.8 [facility] Comment on above: Performed By: #### 3 9083523, 1291754, 7914201, 8351908, 80196792, 1963020, 16028293, 6711605 #### [facility] [address] [place] [address] Lipase Levelon 11-18-2021 Lipase [Catalytic activity/Vol] 27 U/L Normal 13-58 [facility] Comment on above: Performed By: #### 3 0606502, 2741879, 8794717, 6724964, 11156886, 9876003, 05686066, 6380632 #### [facility] [address] [place] [address] Manual Diffon 11-18-2021 Band form neutrophils/100 WBC (Bld) 6 % Normal 0-10 [facility] Comment on above: Order Comment: Order Added by Discern Expert. Performed By: #### 3 8746627, 1512746, 6652079, 5116111, 22225447, 6014933, 82929457, 1270935 ####[facility] [address] [place] [address] Basophils/100 WBC (Bld) 1 % Normal 0-2 [facility] Comment on above: Order Comment: Order Added by Discern Expert. Performed By: #### 3 2424618, 0815710, 0980944, 2198343, 80137545, 3075255, 83884187, 3861930 ####[facility] [address] [place] [address] Eosinophils/100 WBC (Bld) 2 % Normal 0-8 [facility] Comment on above: Order Comment: Order Added by Discern Expert. Performed By: #### 3 8449148, 8060087, 0773518, 6538740, 92896766, 4902960, 62444740, 3494855 ####[facility] [address] [place] [address] Lymphocytes/100 WBC (Bld) 25 % Normal 14-50 [facility] Comment on above: Order Comment: Order Added by Discern Expert. Performed By: #### 3 3351634, 1541862, 9413873, 0049325, 84126897, 6772612, 79350492, 2986391 ####[address] [place] [address] Monocytes/100 WBC (Bld) 10 % Normal 4-14 [facility] Comment on above: Order Comment: Order Added by Discern Expert. Performed By: #### 3 4330683, 4783196, 5453091, 8344297, 85808759, 1704833, 24688140, 9525562 ####[facility] [address] [place] [address] Morphology Doroteo (Bld) [Interp] Normal Normal [facility] Comment on above: Order Comment: Order Added by Discern Expert. Performed By: #### 3 6600865, 2713072, 2224983, 6936330, 35311619, 6069421, 46532762, 2849024 ####[facility] [address] [place] [address] Segmented neutrophils/100 WBC (Bld) 56 % Normal 36-75 [facility] Comment on above: Order Comment: Order Added by Discern Expert. Performed By: #### 3 0472083, 9462153, 5176559, 2821874, 67835794, 4222468, 57009079, 5162303 ####[facility] [address] [place] [address] Variant lymphocytes LM Ql (Bld) 0 % Invalid Interpretation Code [facility] Comment on above: Order Comment: Order Added by Discern Expert. Performed By: #### 3 2166862, 4514068, 6718773, 3711196, 86303045, 9467733, 14478940, 6253725 ####[facility] [address] [place] [address] Prescriptions/Work Noteson 0 11-18-2021 Prescriptions/Work Notes [id number] 0CD:127 Normal [facility] Troponin 0 Hr.on 11-18-2021 Troponin I.cardiac [Mass/Vol] ng/mL Low 10.10-27.10 [facility] Comment on above: Result Comment: The 95% CI (Confidence Interval) PPV (Positive Predictive Value) for myocardial infarction in females is 38 pg/mL, in males 51 pg/mL. The results should be used in conjunction with clinical conditions of myocardial infarction. (Access High Sensitivity Troponin I Instructions For Use, [employer], April 2018) Performed By: #### 3 9454489, 8564424, 9441568, 0551454, 38338863, 8049989, 50951387, 5387810 #### [facility] [address] [place] [address] XR Chest 2 Viewson XR Chest 2 Views Exam Date/Time: 11/18/2021 12:56 EST Reason for Exam: Difficulty breathing Report IMPRESSION: NO EVIDENCE OF ACTIVE CARDIOPULMONARY DISEASE, OR SIGNIFICANT CHANGE FROM PRIOR STUDIES IDENTIFIED. EXAM: XR Chest 2 Views DATE: 11/18/2021 CLINICAL HISTORY: Difficulty breathing. COMPARISON: Portable chest 08/06/2021 and two-view chest 04/04/2021. TECHNIQUE: Upright PA and lateral radiographs of the chest were obtained. FINDINGS: There are shallow inspiratory volumes, without significant infiltrate, cardiomegaly, vascular congestion, pleural effusion, pneumothorax, or displaced fractures identified. FINAL REPORT Dictated: 11/18/2021 3:12 pm Leandro العراقي MD Signed (Electronic Signature): 11/18/2021 3:12 pm Signed by: Leandro العراقي MD Transcribed by: MARÍA ELENA Technologist: CC Normal [facility] eGFRon 11-18-2021 GFR/1.73 sq M.predicted among blacks MDRD (S/P/Bld) [Vol rate/Area] mL/min/{1.73_m2} Normal >=59 [facility] Comment on above: Order Comment: Order added by Discern Expert. Result Comment: eGFR is race adjusted. AA=. Performed By: #### 3 [id number], [id number], [id number] #### [facility] [address] [place] [address] GFR/1.73 sq M.predicted among non-blacks MDRD (S/P/Bld) [Vol rate/Area] mL/min/{1.73_m2} Normal >=59 [facility] Comment on above: Order Comment: Order added by Discern Expert. Result Comment: Back Up Worker chance kidney disease could be indicated at eGFR's of less than 60 mL/min/1.73m2. Kidney failure is indicated at less than 15 mL/min/1.73m2. Performed By: #### 3 [id number] #### [facility] [address] [place] [address] Coding Summary.on 09-25-2021 Coding Summary. CD:[id number] Gh 0bWw+PGhlYWQ+AL4WFBRyY 22axMGxgE6NT6hMCI9SFFB PVGZKMI3FYP7blWM9JTpvR 2VybiAv WzeryKLjGO67HEy0MLQ0dE utWMxajH0wvAKdZ9t0LhMd OB32oF56POniBFFoVlH9Zj ZpbjsgbWFy Z9ijRpXbeISbMus+PHRhYm xlIHdpZHRoPScxMDAlJyBz gWgoIN9bBz1wTHZmREBscC xhcHNlOiBj d3dwLBCpZSqwWB0jdBqjW1 JwzAM6JPCie6g3Xa55oOI+ IBLlUFP0wErwBUfzn482Rs Dsw5vdTKZ0 eMHeOAzvXLQ1I52yt6K3BM UdSNZfBAX0cKR8hG4wyHxi nyqyH5ZhpJXuWqK5GEY2pC YmjS0mbQcu urjcqS8eRkj+C54WJT7NXN VPMY7IBwo4C8TbTtlueVO+ AT64UVCnTX48dPHrpXRld2 wfkGv0YuMd XGViEBM1wSfaAJegv9XkXI UbY83inTHbx5O9EJSalLsb vXToSuLblPB7eQ5eCQtlnb ioh1ukkinx Nkycf6imyk51tW71V43gFA koJAQiBVN1TYEaRYAzfBkg vb0chB8lQp8+TXgel5qko6 caaAl2QxJg UYMopaUveYviCDL9n8ThUg 86F5OatQltv6TzDke9wx11 dVEot6T6kFN4HTsaTUNyhF 0oEBgtZvX0 NTAxXuBazI50wKWnXJpuXz 3clEjdhStgSM5mKAZskkce QIPoqM9hRMHukFXouMrsAE 4wNTBpbjtm s991DfDlKYD5TBHdnFUxM7 WhsO3tXaKmWPEuGYWaZ8Qz nLXhTJwuT865YSjeAhM6CP TkaiVsH5Sx QJTqrOamKzC5j7A0Qa8Rf5 LpaqxbSFM6BHfyRTBuTeHv OzZlGsT5U1KmRjn1LMOstB vgOG9eB6Px DCEwanxczllpqDM4OSCyVC QxnN18zPFhLRjhWj2gk4N9 p088DKTzSMScoO54Cd1zlR ogMTBwdCBU eO3blnsym6gnulsrUqEhLG HfLQu5NPd8MMYldHwsTmIh TOD5ViK1SGO0aWCohY4bmA myajxzhP5w Oyc+H67orU7sNFG5CKJ3wx dvGQBujuCxTQ11DE51Q7Fs PjwvdGFibGU+PGRpdiBzdH rdLJ2iLqXf b3ykd8GcQKveW0GzAXCvFS djJoj6CHMoQJN9wCF1cX6j FBAnRDexx0A0aAZ2U5Bfie Gyfp8rf5ns QITwWIrwC91atLTrz9Z0GX JgpSX1RWRrtVuaBlJwsR84 Oyc+PMIncIolo2AjOtojz2 gyi2tjfJm5 NlHzJCQiijGnjGobCCB7m0 JmZe05S57lTPqlNQCxJLMx IREuGJGlbKimdr7evA0sAe 8+PGNvbCB3 ePY2wI9kLQBpJjG1NCguS6 14IdDaoCXiOeija7zyf8au sWm3HkGsUDTgnrOrbKvoVX D7p3HcBz07 Q82cDMwePKXoGGUbFINnRL HrlMmnpy6fiR9pEo4+PC9j y2ctdl01kQ99rAL+PHRkIH K9mFikKSfr FJQmcR4jONqoHbQ0SILzFx FyrM84mFUjYAebVw2xsYgy oEfoDY7tAYUnhbgss804Ga Wms6dxCRRu tZOxTZxcNSJ6W39gf3C2ZQ JhADJsMDD3sQL4iZ1ibJmc bjogbGVmdDsgdmVydGljYW ioTYovO897 IHRvcDsnPlBhdGllbnQgTm YgUOx5L1AeVsr7XVSieZmr IF3djGRtTTbuAp1ipZtuqD knVQ9aWVSo mfzlc114AcSkq8hoTCNajJ EkGDahXGC5A81ml0D4GSTs FEUzQLL1nTA8kC9sfSohww ogbGVmdDsg saSlwSnpITpcTBkqA432IR RvcDsnPkJpcnRoIERhdGU6 IY65NU35lFHcv4B4nUP9S3 BhZGRpbmct vybuuLC2SEKvMTGuiP52Lz 2ktGtnBh7lJIHiVNS4KBTz lEGqQ4HchM1eViSzJETaQN UiX2NnuAPc FBtgK311ZCvtTuJ5BOLvzv CtR7WgFFOadCrkHiU4t4C5 Na9EV6Z1SW33CP23qIKfj3 C8zIJ6S8Kc RQKbxcwuhykgsKW0FHKtZI DryN20Bz0jbHfnMd3rPNGq TGC5HIYdjFLnV4KueW1sDi AjMDAwMDAw V5RhtXSmCDnzP030PXapQe Y8MHDzirSpH9WqDGVriRtk TiR1k1T8Db4EJDg4UP99UH 22fHSff7U5 pUZ3J8OkAXWqelstetuiiW T8NDWjWMWtdV60Dk4oqSeb Ne0vCMOlSKL2BNMtzGLdG8 CvgB1nWlYt ZVMuWVWiO3BixQFoMEtvT6 80KHjgEiQ5JCXuwbFqL7Vz WLKtzKekDqI8r1O1Xm7EWS UvCU89KIA0 kJR0VT73TM29X1PpEcbtzV FibGU+PHRhYmxlIHdpZHRo DBcqMKJdPeJqbVspAZ0fXj 9yZGVyLWNv sLksmGSsApSig2zjNDKyTY xlVX9weFxoV2BvwEW1YOSi s7l2Yl41P78yB4QaqGT+PG OxeCU0pUC1 eO5oFuUwWwU4DKskT475Ic QnoAIoWfyrm2jvz2nizWj3 IaL5LOCfgwTchEkcENE5w5 DbLk16R41b IHdpZHRoPSIxNSUiIHZhbG cuzk6ohN9cNl7+PGNvbCB3 eJJ6gM6gBiMqXkI9EYobN5 49InRvcCIv Ufxbw9jdy7clxYo3VoNtIO SfrbXpuXsaDBX6m2LfPd83 K1NciJekm9JcKjz1mx86zK Uiw9I1aHY2 N0DuIGVynxflsYYxoRcoTL 7iMECrosviYRVkxF5iBMKk X1g8YvWaWwU6QNhnG4Ntwh X8DLVmbSXp DPhkZEA1X39zw9J7YTHyGV FrWBE0nDP2lU4iqTjzdljj bGVmdDsgdmVydGljYWwtYW vxR525PYQa lWedQDMtdG0sHWKnfUKqeD mpWU8nBQRsrygyNyqCVNxa IEpBREEgTTwvdGQ+PHRkIH P4jHpoBXui QVIuwO3lLBHuF2h1HeZjOb U1QPqjA6XcIKSbisgwCf25 zU4mNhEaFpX9THdzO0Glfd B9YITssCDj PJkrIIG1Y03cb1R4ONStTQ CiPWH6tSY1oW6pkAsbuptt bGVmdDsgdmVydGljYWwtYW ikM664OFDo hUsgXkB8BkM0GoL8VSC6Q2 EpYnn5LCNriYkaRU1ikAVp QVqeSp4foYezyJshGR0wEZ BpbjtwYWRk qR2gJPJrbRAxqRpuOR2rET Lqugmtn450ObNmJKJ8CWMr hOKjU0KcoI5sJnLmIEVxEU KfB0VkzDPl ADftR755LEoiXbF3OKBztc KxB0IhPORqiDsnQnO5x6X6 Mk2dIQXLAVCkmoaxsSQ+PH ErXIH7zMgs WKngUGLvsB3wZXCdH5b2Cq SiEbG9OSswU0RpAIEnnvae Ys83eB5qMgWwMxK1POltC8 FffjC3VXQw qCWlJQsqTJB0D69mc9I8XW EvPBIkKYA1qIZ4pC8uqFvc bjogbGVmdDsgdmVydGljYW xsSFeqT668 IHRvcDsnPkZlbWFsZTwvdG Q+GRXvZWP0eHjeVRlcREXu eK7rTAScE8i4PnZhTgA3XE kfL2TxCRPx aodoQi61zS1oPmTyIiU1XQ esL4NxrvS3ATUamIOeTLxu MNS5M98ge7W1AUXeRBXdGH Y2kDB6jA5n bGlnbjogbGVmdDsgdmVydG rcIZonXZinH044GTUzfCdm JkSjNVEeID0kbMosqUF+PC 76mx90D8Ga TwcfWck9AAZbGYM4aKQ3tQ 3gAWQgOUkob3Z9iRS5W0Yc omMmkd4bt5xzWDYkRCgeD2 1bgYRav4H7 PDLedWH7AEScbLtaGlYjvW 93Oyc+MWUjzLirg4BoAvzi v7ehk7vdvGb1FgRwSCPswv FsaWduPSJ0 u2CyLj68H10pBUrkFJIsBF EuOZNvLNYynMsuhy5ghX7m Ii8+SZMquUN5qAP3uI8iRh CgVqX7KNjp M896XrWjjQTnJokmi0jio4 kcuGk6VkBmHANjajNslKxs TIN6v7ToZn39R5PxiNnbe4 LbIfn8mx17 jRBvl8F8aSV0W5YcLSMyzc vziRAtnFbtOR4gFYMuttta ASKmiE6sOPTuF1e3WiJuAv X0BMdgF1Bm qhU7HWKkzPTqNFUyaSUQuN 1xxmatd2aheahwWzDsJDZz WKl6FUz1DAVbwGbeXxZrUH H3TnX5SXE9 kWNzlK8edAsctplnfO9jNt c+SAe1v7fbsVUtCJ6jsRK6 PH95QB66fEFbh5W2sOL2M2 BhZGRpbmct ynfcpYW6FWNgNFFzwL47Nj 2iaOebTw5dRMRfFUX3TZKo eKZqG2DfaU7dYdZzNDUvDE GjT0TfkPTw HKbqZ966VZzuCaD3LJSpcb XkO1WcMMIiqXnfAdI8i7N8 Xu9KSQ56QJ58AC50oDOtz3 G5dAF0D1Sx FSBwxfcwtwcohSR1SQKsAC GsaR79Ft2woRnqAw4uMRFm RTX1MAZymLCtF2YwjQ5lXl AjMDAwMDAw E7MfaDJoKQdqZ528VBbaLx Z1OZTpyjBbD4YjIZXjbZpl TxP4x6Q4Mp3GJm65FA30PM 68aLRrn8G9 tOR1B8ZtTPRzbatkpjgbeE N8AFRtHIHvpB70Dh1rzKqy Ej1eAGWeTMZ7FTEwsTKkV9 LimU9rOgQi FEJjUMMrM0JjjGOzDRpnA8 52BNtkCpL1ZKXcewErM2Fv XPElqFybDnI6n4A1Mn7RPF ejakn9N0Mn PjwvdHI+HY15QBQbNO81rL XhgMIcy1bqjNn3CtEkMPYv GVV8fMqjGUgim5BdDMAnB9 3hkSUqu8O2 IGNv (more content not included)... Normal [facility] COVID-19 [place]-2021 SARS-CoV-2 (COVID-19) RNA PARI+probe Ql (Resp) Not detected Normal Not Detected [facility] Comment on above: Result Comment: This test result should be correlated with clinical presentations and medical history by a healthcare provider to determine its clinical significance. This assay was performed by a reverse transcriptase real-time polymerase chain reaction (rt PCR) method on the [employer] system. This test has been authorized only for the detection of nucleic acid from SARS-CoV-2, not for any other viruses or pathogens. This test has not been FDA cleared or approved. This test has been authorized by FDA under an Emergency Use Authorization (EUA). This test is only authorized for the duration of time the declaration on that circumstances exist justifying the authorization emergency use of in vitro diagnostic tests for detection and/or diagnosis of COVID-19 infection under section 564 (b) (1) of the Act, 21 U.S.C. 360 bbb-3 (b) (1), unless authorization is terminated or revoked sooner. Performed By: #### 2 [id number] ####[place] [address] SARS-CoV-2 (COVID-19) RNA PARI+probe Ql (Unsp spec) Pass Normal Pass [facility] Comment on above: Performed By: #### 2 [id number] ####[place] [address] Specimen source Nom (Unsp spec) Nasal Normal [facility] Comment on above: Performed By: #### 2 [id number] ####[place] [address] ADMITTED TO INTENSIVE CARE UNIT FOR CONDITION OF INTEREST:FIND:PT: Unknown Normal [facility] Comment on above: Performed By: #### 2 [id number] ####[place] [address] EMPLOYED IN A HEALTHCARE SETTING:FIND:PT: Unknown Normal [facility] Comment on above: Performed By: #### 2 [id number] ####[place] [address] FIRST TEST FOR CONDITION OF INTEREST:FIND:PT: Unknown Normal [facility] Comment on above: Performed By: #### 2 [id number] ####[id number] [place] [address] HAS SYMPTOMS RELATED TO CONDITION OF INTEREST:FIND:PT: Unknown Normal [facility] Comment on above: Performed By: #### 2 [id number] ####[place] [address] HOSPITALIZED FOR CONDITION OF INTEREST:FIND:PT: Unknown Normal [facility] Comment on above: Performed By: #### 2 [id number] ####[place] [address] STATUS:FIND:PT: Unknown Normal [facility] Comment on above: Performed By: #### 2 [id number] ####[place] [address] RESIDES IN A [facility] CARE SETTING:FIND:PT: Unknown Normal [facility] Comment on above: Performed By: #### 2 [id number] ####[place] [address] Consent for Treatmenton 09-14 Consent for Treatment [id number] 2009 [id number] 0CD:127 Normal [facility] Discharge Instructionson Discharge Instructions [id number]#1.00 CD:127 Normal [facility] ED Clinical Summaryon 2021 ED Clinical Summary [place] [address] ED Clinical Summary Person Information Name: LEENA INTERIANO [place] Age: 31 Years : 1990 Sex: Female Language: Sign Language PCP: BENTLEY LUCERO CNP Marital Status: Phone: [phone] Visit Id: Visit Reason: Sinus Pain/Congestion; RUNNY NOSE, SORE THROAT, HEADACHE Speciality: Acuity: 4 Enc Type: Emergency Med Service: Emergency Arrival: 09/24/2021 10:56:03 Discharge: 09/24/2021 11:26:38 LOS: 000 00:30 Checkin: 09/24/2021 10:56:03 Checkout: 09/24/2021 11:26:38 Dispo Type: Home (Routine DC) EVENTS: Event Name Event Status Request Date/Time Start Date/Time Complete Date/Time Arrive Complete 09/24/2021 10:56:03 09/24/2021 10:56:03 09/24/2021 10:56:03 Document Home Meds Request 09/24/2021 10:56:03 Triage Complete 09/24/2021 10:56:03 09/24/2021 11:04:55 09/24/2021 11:04:55 Bed Assign Complete 09/24/2021 10:57:47 09/24/2021 10:57:47 09/24/2021 10:57:47 Dr Exam Complete 09/24/2021 10:57:47 09/24/2021 10:59:25 09/24/2021 10:59:25 RN Exam Complete 09/24/2021 10:57:47 09/24/2021 11:08:23 09/24/2021 11:08:23 Registration Complete 09/24/2021 10:59:25 09/24/2021 11:21:12 09/24/2021 11:21:12 Dr Exam Complete 09/24/2021 11:06:07 09/24/2021 11:06:07 09/24/2021 11:06:07 Meds Admin Complete 09/24/2021 11:06:59 09/24/2021 11:22:09 Pending Labs Inlab 09/24/2021 11:06:59 Lab Inlab 09/24/2021 11:06:59 Discharge Complete 09/24/2021 11:07:11 09/24/2021 11:26:44 09/24/2021 11:26:44 Reg Complete Request 09/24/2021 11:21:12 Reg Bed Request Complete 09/24/2021 11:21:12 09/24/2021 11:21:12 09/24/2021 11:21:12 Transfer Complete 09/24/2021 11:26:44 09/24/2021 11:26:44 09/24/2021 11:26:44 ADDRESS: [address] [place] [phone] PHYS DOC NOTES: MEDICAL INFORMATION: Prescriptions Given: New Medications [facility], [address] [place], [place] [id number], [phone] brompheniramine/dextro methorphan/PSE (Bromfed DM oral syrup) 10 Milliliter By Mouth 4 times a day as needed for cough and congestion for 7 Days. Refills: 0. Medications to Continue with No Changes Other Medications amoxicillin azithromycin (Zithromax TRI-EUGENIA 500 mg oral tablet) 1 Tablets By Mouth every day. Refills: 0. cetirizine (cetirizine 10 mg Tab) 1 Tablets By Mouth every day. Refills: 0. fluticasone nasal (Flonase 0.05 mg/inh nasal spray) 1 Sprays Nasal Inhalation 2 times a day. each nostril. Refills: 0. ibuprofen ondansetron (Zofran ODT 4 mg Tab) 1 Tablets By Mouth every 6 hours as needed Nausea/Vomiting. Refills: 0. pantoprazole (Protonix 40 mg Tab-EC) 1 Tablets By Mouth every day. Refills: 0. PATIENT EDUCATION INFORMATION: Instructions: COVID-19; Upper Respiratory Infection, Adult Follow up: With: Address: When: BENTLEY NIC [address] [place] [address] Business (1) In 3 days 09/27/2021 DIAGNOSIS: Acute upper respiratory infection Normal [facility] ED Note-Physicianon 09-24-19 ED Note-Physician Basic Information Time Seen: Grant Jacob PA-C 09/24/2021 10:59 Chief Complaint pt presents to the ED with congegestion and watery eyes x4 days. History of Present Illness 31-year-old female comes to the ED for evaluation of upper respiratory infection symptoms. 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 She presents with 4-day history of sinus congestion, watery eye drainage, nasal drainage. No chest pain, chest signs, shortness of breath. No fever, chills, nausea, vomiting. No concern for . She is vaccinated for COVID-19. Review of Systems A 10 point review of systems is negative except as noted above. Medical and Surgical History: Reviewed and noted Social history: Lives at home Tobacco: Denies Physical Exam Vitals & Measurements T: 37 ?C(Oral) HR: 93(Peripheral) RR: 17 BP: 117/80 SpO2: 100% HT: 164 cm HT: 164.0 cm WT: 89 kg WT: 89.0 kg BMI: 33.09 Nurses notes and vital signs reviewed and patient is not hypoxic. General: Well-appearing, does not appear ill Skin: Warm, dry. Head: Atraumatic. Neck: No JVD. Eye: Normal conjunctiva. Ears, Nose, Mouth, and Throat: Sinus congestion, no difficulty with speaking or swallowing. Clear nasal drainage. TMs are clear. No pharyngeal erythema. Cardiovascular: Not tachycardic Chest wall: Respiratory: Respirations are nonlabored. Back: Normal range of motion. Musculoskeletal: Normal ROM with no gross deformity. Gastrointestinal: Urological: Neurological: Awake and alert. No focal deficits. Follows commands. Psychiatric: Cooperative. Medical Decision Making Patient well-appearing on examination. Stable vital signs. No hypoxia. Likely Covid infection given symptomology and current pandemic. Covid testing is pending. She is treated here with dexamethasone and discharged home Bromfed-DM. Patient discharged home with PCP follow-up. Patient was encouraged to return to the ED if symptoms worsen or change. Assessment/Plan Acute upper respiratory infection (J06.9: Acute upper respiratory infection, unspecified) Orders: brompheniramine/dextro methorphan/PSE, 10 mL, Oral, QID for cough and congestion for 7 day(s), 280 mL, Refill(s) 0, [facility], 164, cm, 09/24/21 11:04:00 EST, Height/Length Dosing, 89, kg, 09/24/21 11:04:00 EST, Weight Dosing dexamethasone, 10 mg = 2.5 mL, Injection, Oral, Once, Stop date 09/24/21 11:06:00 EST, STAT, Start date 09/24/21 11:06:00 EST, 09/24/21 11:06:00 EST COVID-19 [place] Disposition Plan Patient Discharge Condition Disposition: Discharged home Condition: Improved and stable Counseled: Patient and/or family were counseled to workup, results, treatment plan and follow-up recommendations Discharge Prescription List Prescriptions Bromfed DM oral syrup, 10 mL, Oral, QID, PRN Follow-up With When Contact Information BENTLEY ENGLISHRosy In 3 days 09/27/2021 EST [address] [place] [address]- Business (1) Additional Instructions: Patient Education COVID-19 Upper Respiratory Infection, Adult Attestation Patient seen and evaluated by the physician higher level teaching assistant. Attending physician was present in the emergency department and supervised care. This visit was performed by both the physician and an APC. I performed all aspects of the MDM as documented. This report was transcribed using voice recognition software. Every effort was made to ensure accuracy, however, inadvertently computerized cane weigher mistakes may be present. Appropriate healthcare PPE was used in evaluating this patient. The patient was placed in a mask. The healthcare provider was wearing mask, gloves, and utilizing proper hand hygiene. All equipment was properly cleansed. Problem List/Past Medical History Ongoing No qualifying data Historical Deaf mutism Medications Inpatient dexamethasone 4 mg/mL Inj 1 mL, 10 mg= 2.5 mL, Oral, Once Home amoxicillin Bromfed DM oral syrup, 10 mL, Oral, QID, PRN cetirizine 10 mg Tab, 10 mg= 1 tab(s), Oral, Daily Flonase 0.05 mg/inh nasal spray, 1 spray(s), Nasal, BID ibuprofen Protonix 40 mg Tab-EC, 40 mg= 1 tab(s), Oral, Daily Zithromax TRI-EUGENIA 500 mg oral tablet, 500 mg= 1 tab(s), Oral, Daily Zofran ODT 4 mg Tab, 4 mg= 1 tab(s), Oral, q6hr, PRN Allergies sulfa drugs (Rash) Social History Alcohol - Denies Alcohol Use, 03/08/2018 Current, 07/08/2019 Current, 05/16/2019 Substance Abuse - Denies Substance Abuse, 04/24/2019 Current, 07/08/2019 Tobacco - Denies Tobacco Use, 02/28/2016 Lab Results No qualifying data available. Diagnostic Results No qualifying data available. [facility] Comment on above: Result Comment: Elec tronically Signed By: Cecil ETIENNE, Grant\.br\Date and Time Signed: 09/24/21 11:08 EST\.br\Electronically Co-Signed By: Paul Moss, Devendra Dillon\.br\Date and Time Co-Signed: 09/24/21 15:49 EST ED Patient Summaryon 022 ED Patient Summary [address] [address] Patient Discharge Instructions Person Information Name: LEENA INTERIANO Age: 31 Years Arrival Date: 09/24/2021 10:56:03 Discharge Diagnosis: Acute upper respiratory infection Primary Care Physician: BENTLEY LUCERO CNP Provider Information Primary Provider: Devendra Miller M.D. [facility] Practitioner:Grant Jacob PA-C The exam and treatment you received in the Emergency Department were for an urgent problem and are not intended as complete care. It is important that you follow up with a doctor, nurse practitioner, or physician?s higher level teaching assistant for ongoing care. If your symptoms become worse or you do not improve as expected and you are unable to reach your usual health care provider, you should return to the Emergency Department. We are available 24 hours a day. LEENA INTERIANO has been given the following list of patient education materials, prescriptions and follow-up instructions: Follow-up Instructions: With: Address: When: BENTLEY LUCERO [address] [place], [place] [id number] [facility] (1) In 3 days 09/27/2021 In the event that this physician does not participate in your insurance network, please consult with your insurance company to find a nearby participating provider. Patient Education Materials: COVID-19; Upper Respiratory Infection, Adult A MESSAGE TO ALL PATIENTS REGARDING OPIOIDS PRESCRIPTION OPIOIDS: WHAT YOU NEED TO KNOW Prescription opioids can be used to help relieve wragdzfb-qp-vndavc pain and are often prescribed following a surgery or injury, or for certain health conditions. These medications can be an important part of the treatment but also come with serious risks. It is important to work with your healthcare provider to make sure you are getting the safest, most effective care. WHAT ARE THE RISKS AND SIDE EFFECTS OF OPIOID USE? Prescription opioids carry serious risks of addiction and overdose, especially with prolonged use. An opioid overdose, often marked by slowed breathing, can cause sudden . The use of prescription opioids can have a number of side effects as well, even when taken as directed: ? Tolerance?meaning you might need to take more of the medication for the same pain relief ? Physical dependence?meaning you have symptoms of withdrawal when a medication is stopped ? Increased sensitivity to pain ? Constipation ? Nausea, vomiting, and dry mouth ? Sleepiness and dizziness ? Confusion ? Depression ? Low levels of testosterone that can result in lower sex drive, energy, and strength ? Itching and sweating RISKS ARE GREATER WITH: ? History of drug misuse, substance use disorder, or overdose ? Mental health conditions (such as depression or anxiety) ? Sleep apnea ? Older age (65 years and older) ? Avoid alcohol while taking prescription opioids. Also, unless specifically advised by your health care provider, medications to avoid include: ? Benzodiazepines (such as Xanax or Valium) ? Muscle relaxants (such as Soma or Flexeril) ? Hypnotics (such as Ambien or Lunesta) ? Other prescription opioids KNOW YOUR OPTIONS Talk to your health care provider about ways to manage your pain that don?t involve prescription opioids. Some of these options may actually work better and have fewer risks and side effects. Options may include: ? Pain relievers such as acetaminophen, ibuprofen, and naproxen ? Some medication that are also used for depression or seizures ? Physical therapy and exercise ? Cognitive behavioral therapy, a psychological, goal-directed approach, in which patients learn how to modify physical, behavioral, and emotional triggers of pain and stress. IF YOU ARE PRESCRIBED OPIOIDS FOR PAIN: ? Never take opioids in greater amounts or more often than prescribed. ? Follow up with your primary health care provider. o Work together to create a plan on how to manage your pain. o Talk about ways to help manage your pain that don?t involve prescription opioids. o Talk about any and all concerns and side effects. ? Help prevent misuse and abuse o Never sell or share prescription opioids. o Never use another person?s prescription opioids. ? Store prescription opioids in a secure place and out of reach of others (this may include visitors, children, friends, and family). ? Safely dispose of unused prescription opioids: Find your community drug take-back program or your pharmacy mail-back program, or flush them down the toilet, following guidance from the Food and Drug Administration (www.fda.gov/Drugs/Res ourcesForYou). ? Visit www.cdc.gov/drugoverdo se to learn about the risks of opioids abuse and overdose. ? If you believe you may be struggling with addiction, tell your health day care supervisor and ask for guidance or call [facility] National Helpline at 2-834-149 (more content not included)... Normal [facility] Prescriptions/Work Noteson 0 09-24-2021 Prescriptions/Work Notes [id number]#[id number] CD:127 Normal [facility] Chlamydia/GC DNA, Uron 03-16 Chlamydia Probe, Ur Negative Normal [facility] Comment on above: Result Comment: CHLA MYDIA TRACHOMATIS DNA not detected by nucleic acid amplification. Performed By: #### U CGP ####[facility] [place] [id number] Gonorrhea Probe, Ur Negative Normal [facility] Comment on above: Result Comment: NEIS SERIA GONORRHOEAE DNA not detected by nucleic acid amplification. Performed By: #### U CGP ####[facility] [place] [address] Vaginitis DNA Probeon 2017 Protein Specimen Description .VAGINASpecial Requests NOT REPORTEDDirect Exam NEGATIVE for Gardnerella vaginalis NEGATIVE for Dora sp. NEGATIVE for Trichomonas vaginalis Method of testing is a DNA probe intended for detection and identification of Dora species, Gardnerella vaginalis, and Trichomonas vaginalis nucleic acid in vaginal fluid specimens from patients with symptoms of vaginitis/vaginosis. Report Status FINAL 03/16/2018 [facility] Comment on above: Performed By: #### V AGDNA ####[facility] [place] [id number] Progress Noteon 03-15-2018 HIM IP Note OR Instrument Worker [facility] Progress Noteon 12-06-2017 HIM IP Note OR Instrument Worker [facility] Chlamydia/GC DNA, Uron 11-26 Chlamydia Probe, Ur Negative Normal NEG [facility] Comment on above: Result Comment: CHLA MYDIA TRACHOMATIS DNA not detected by nucleic acid amplification. Performed By: #### U CGP ####[id number] [place] [address] Gonorrhea Probe, Ur Negative Normal NEG [facility] Comment on above: Result Comment: NEIS SERIA GONORRHOEAE DNA not detected by nucleic acid amplification.[facility] [address] [place] [address] [phone] Performed By: #### U CGP ####[address] [place] [address] Vaginitis DNA Probeon 2017 Protein Specimen Description .VAGINAL SWABSpecial Requests NOT REPORTEDDirect Exam NEGATIVE for Dora sp. NEGATIVE for Gardnerella vaginalis NEGATIVE for Trichomonas vaginalis Method of testing is a DNA probe intended for detection and identification of Dora species, Gardnerella vaginalis, and Trichomonas vaginalis nucleic acid in vaginal fluid specimens from patients with symptoms of vaginitis/vaginosis. Report Status FINAL 11/25/2017 Normal [facility] Comment on above: Performed By: #### V AGDNA ####[address] [address] Progress Noteon 10-20-2017 HIM IP Note OR Instrument Worker Normal [facility] Vital Signs Date Time Vital Sign Value Performing Clinician Samir novoa 08-29-2022 17:32-0500 Body temperature 98.78 [degF] Kristopher Clemons [facility] 08-29-2022 17:32-0500 Diastolic blood pressure 96 mm[Hg] Kristopher Sextone [facility] 08-29-2022 17:32-0500 Heart rate 74 /min Kristopher Sextone [facility] 08-29-2022 17:32-0500 Respiratory rate 18 /min Kristopher Clemons [facility] 08-29-2022 17:32-0500 SaO2% (BldA) [Mass fraction] 99 % Kristopher Clemons [facility] 08-29-2022 17:32-0500 Systolic blood pressure 143 mm[Hg] Kristopher Clemons [facility] 06-18-2022 12:13-0400 Body temperature 98.42 [degF] Connor Castellanos [facility] 06-18-2022 12:13-0400 Diastolic blood pressure 88 mm[Hg] Connor Castellanos [facility] 06-18-2022 12:13-0400 Heart rate 78 /min Connor Emanuel [facility] 06-18-2022 12:13-0400 Respiratory rate 20 /min Connor Castellanos [facility] 06-18-2022 12:13-0400 SaO2% (BldA) [Mass fraction] 98 % Connor Castellanos [facility] 06-18-2022 12:13-0400 Systolic blood pressure 133 mm[Hg] Connor Emanuel [facility] 05-28-2022 10:50-0400 Body temperature 98.6 [degF] Connor Emanuel [facility] 05-28-2022 10:50-0400 Diastolic blood pressure 97 mm[Hg] Connor Emanuel [facility] 05-28-2022 10:50-0400 Heart rate 67 /min Connor Emanuel [facility] 05-28-2022 10:50-0400 Respiratory rate 18 /min Connor Emanuel [facility] 05-28-2022 10:50-0400 SaO2% (BldA) [Mass fraction] 98 % Connor Emanuel [facility] 05-28-2022 10:50-0400 Systolic blood pressure 140 mm[Hg] Connor Emanuel [facility] 01-09-2022 13:53-0400 Body temperature 98.6 [degF] [facility] 01-09-2022 13:53-0400 Diastolic blood pressure 99 mm[Hg] [facility] 01-09-2022 13:53-0400 Heart rate 83 /min [facility] 01-09-2022 13:53-0400 Respiratory rate 16 /min [facility] 01-09-2022 13:53-0400 SaO2% (BldA) [Mass fraction] 98 % [facility] 01-09-2022 13:53-0400 Systolic blood pressure 116 mm[Hg] [facility] Encounters Encounter Date Encounter Type Care Provider Facility Start: 08-10-2023 End: 08-11-2023 ambulatory George Bernstein MD Facility: [facility] Start: 06-22-2023 End: 06-23-2023 ambulatory George Bernstein MD Facility: [facility] Start: 06-08-2023 End: 06-09-2023 ambulatory George Bernstein MD Facility: [facility] Start: 05-25-2023 ambulatory Facility:[id number] Start: 04-22-2023 End: 04-22-2023 ambulatory Bentley Englishc Facility:[facility] Start: 04-22-2023 End: 04-22-2023 ambulatory Services [facility] Work Phone: [facility] Work Phone: Start: 04-22-2023 End: 04-22-2023 Patient encounter procedure Services [facility] Work Phone: [facility] Work Phone: Start: 04-16-2023 End: 04-16-2023 ambulatory Bentley E Spasic Facility:[facility] Start: 04-16-2023 End: 04-16-2023 ambulatory FACILITIES ENGINEERING MANAGER-C Bentley Spasic Work Phone: [facility] Work Phone: Start: 04-16-2023 End: 04-16-2023 Departed Referred FACILITIES ENGINEERING MANAGER-C Bentley Spasic Work Phone: [facility] Start: 01-27-2023 ambulatory NARENDRANATH LAKSHMIPATHY . Facility: Start: 01-20-2023 End: 01-21-2023 ambulatory NARENDRANATH LAKSHMIPATHY . Facility: Start: 01-01-2023 End: 01-01-2023 ambulatory EASTON JOESPH . Facility: Start: 10-30-2022 End: 10-30-2022 ambulatory Bentley E Spasic Facility:[facility] Start: 10-30-2022 End: 10-30-2022 ambulatory FACILITIES ENGINEERING MANAGER-C Bentley E Spasic Work Phone: [facility] Work Phone: Start: 10-30-2022 End: 10-30-2022 Patient encounter procedure FACILITIES ENGINEERING MANAGER-C Bentley Spasic Work Phone: [facility] Work Phone: Start: 10-09-2022 End: 10-09-2022 ambulatory Bentley E Spasic Facility:[facility] Start: 10-09-2022 End: 10-09-2022 ambulatory FACILITIES ENGINEERING MANAGER-C Bentley E Spasic Work Phone: [facility] Work Phone: Start: 10-09-2022 End: 10-09-2022 Patient encounter procedure FACILITIES ENGINEERING MANAGER-C Bentley Spasic Work Phone: [facility] Start: 10-08-2022 End: 10-08-2022 ambulatory VANESSA JEREZ Facility: Start: 08-29-2022 End: 08-29-2022 Emergency department patient visit Kristopher Clemons Facility[facility] Start: 08-29-2022 End: 08-29-2022 Emergency department patient visit Kristopher Clemons [facility] Start: 08-20-2022 End: 08-20-[address] KARMA HAY Facility: Start: 06-18-2022 End: 06-18-2022 Emergency department patient visit Connor Castellanos Facility:[facility] Start: 06-18-2022 End: 06-18-2022 Emergency department patient visit Connor Castellanos [facility] Start: 05-28-2022 End: 05-28-2022 Emergency department patient visit Connor Castellanos Facility:[facility] Start: 05-28-2022 End: 05-28-2022 Emergency department patient visit Connor Castellanos [facility] Start: 03-21-2022 End: 05-15-2022 ambulatory BENTLEY LUCERO Facility:[facility] Start: 03-12-2022 End: 03-12-2022 ambulatory Rangel Stanton Other Clari Other Start: 03-12-2022 Telephone encounter Rangel PHILLIPS [facility] Start: 02-18-2022 End: 02-26-2022 Pre-admission assessment BENTLEY LUCERO [facility] Start: 02-16-2022 End: 02-16-2022 Emergency department patient visit oCnnor Castellanos Facility:[facility] Start: 01-09-2022 End: 01-09-2022 Emergency department patient visit Devendra Miller Facility:[facility] Start: 01-09-2022 End: 01-09-2022 [facility] Start: 11-18-2021 End: 11-18-2021 Emergency department patient visit Kristopher Clemons Facility:[facility] Start: 09-24-2021 End: 09-24-2021 Emergency department patient visit Devendra Miller Facility:[facility] Start: 03-16-2018 End: 03-16-2018 Ambulatory DION Jacob [facility] Start: 11-25-2017 End: 11-26-2017 [facility] Procedures Date Procedure Procedure Detail Performing Clinician Start: 04-22-2023 X-ray of cervical spine Services [facility] Work Phone: Start: 10-30-2022 CT of lumbar spine w ithout contrast FACILITIES ENGINEERING MANAGER-C Bentley Spasic Work Phone: Start: 10-30-2022 Bilateral mammography N P-C Bentley Spasic Work Phone: Start: 10-30-2022 Ultrasonography of l eft breast FACILITIES ENGINEERING MANAGER-C Bentley Spasic Work Phone: Start: 03-15-2018 C.TRACHOMATIS N.GONO RRHOEAE DNA, URINE DION GUNTERER Start: 03-15-2018 VAGINITIS DNA PROBE MAR Y OPHELIA Start: 11-25-2017 C.TRACHOMATIS N.GONO RRHOEAE DNA, URINE DION GUNTERER Start: 11-25-2017 VAGINITIS DNA PROBE MAR Y OPHELIA Plan of Treatment Date Care Activity Detail Author Start: 04-16-2023 [facility] Immunizations Immunization Date Immunization Notes Care Provider Fa cilinegrita 06-06-2021 COVID-19 mRNA, Comirnaty (Pfizer) FACILITIES ENGINEERING MANAGER-C Bentley Spasic Work Phone: [facility] 05-16-2021 COVID-19 mRNA, Comirnaty (Pfizer) FACILITIES ENGINEERING MANAGER-C Bentley Spasic Work Phone: [facility] Payers Date Payer Category Payer Self-pay [id number] 2022 Medicaid 2022 Medicare 2015 Medicare [id number] 1991 Unknown [id number] 2.16.8 [id number] 1991 Unknown [id number] 2.16.8 40.1.683183.3.579.2.727 1991 Unknown [id number] 2.16.8 40.1.762651.3.579.2.727 1991 Unknown [id number] 2.16.8 40.1.680540.3.579.2.727 1991 Unknown [id number] 2.16.8 40.1.258582.3.579.2.727 1991 Unknown [id number] 2.16.8 40.1.669114.3.579.2.727 1991 Unknown [id number] 2.16.8 40.1.499190.3.579.2.727 1991 Unknown [id number] 2.16.8 40.1.694292.3.579.2.727 1991 Unknown [id number] 2.16.84 0.1.877901.3.579.2.593 1991 Unknown [id number] 2.16.84 0.1.745744.3.579.2.593 1991 Unknown [id number] 2.16.84 0.1.934378.3.579.2.593 1991 Unknown [id number] 2.16.84 0.1.227618.3.579.2.593 1991 Unknown [id number] 2.16.84 0.1.725948.3.579.2.593 1991 Unknown [id number] 2.16. 840.1.280885.3.579.2.356 1991 Unknown [id number] 2.16. 840.1.375612.3.579.2.196 1991 Unknown [id number] 2.16. 840.1.229586.3.579.2.196 1991 Unknown [id number] 2.16. 840.1.695214.3.579.2.196 1958 Medicaid [id number] 2. 16.840.1.365092.19 1958 Medicare [id number] 2.1 [id number] Unknown [id number] 2.16.8 40.1.241727.3.579.2.531 Unknown [id number] 2.16.8 40.1.595327.3.579.2.531 Unknown [id number] 2.16.8 40.1.287607.3.579.2.531 Unknown [id number] 2.16.8 40.1.146535.3.579.2.531 Social History Date Type Detail Facility Tobacco [facility] Comment on above: Denies. Sex Assigned At Female [facility] Start: 06-18-2022 Tobacco smoking status Light t obacco smoker (finding) [facility] Comment on above: pt tab Start: 03-12-2022 End: 03-12-2022 Tobacco smoking status NHIS Never smoked tobacco (finding) [facility] Start: 1990 Sex Assigned At Female F [facility] Functional Status Date Assessment Result Facility 08-29-2022 Functional Status N/A [facility] 06-18-2022 Functional Status N/A [facility] 05-28-2022 Functional Status N/A [facility] Clinical Notes 09-24-2021 to 01-20-2023 Note Date & Type Note Facility 01-20-2023 Note CONSULTATION CONSULTATION DATE: 01/20/2023 TO: SUSIE Navarrete CHIEF COMPLAINT: Severe left lower back pain. HISTORY: Patient is deaf and we conducted our interview and examination process in the presence of one of our staff members, as well as the signal fitter was present online. Patient reports having a four year history of lower back pain, described as 5-7/10 pain, sharp in character, increased with activities such as standing, walking and performing transitioning maneuvers. She feels most comfortable in the semi-recumbent position. She denies any change in bowel and bladder habits or new sensorimotor changes in the lower extremities. CURRENT MEDICATION: Includes Flexeril 10 mg at h.s. p.r.n., gabapentin 300 b.i. d., and she at one point was using Tylenol with codeine, approximately one month ago. In the past, she had trialed ibuprofen as well as physical therapy. The last physical therapy was March of 2022. She reports despite the physical therapy, the non-steroidal agents, the muscle relaxants and the change in activity level, patient continues to have an altered quality of life, level of functioning and sleep pattern. EXAM: Her examination is notable for the patient having no clinical radiculopathy or myelopathy involving the lower extremities. Patient did have severe pain with lumbar facet loading maneuvers on the left side at L4-5, L5-S1 with associated myofascial spasm of the lumbar paravertebral muscles. IMPRESSION: Our impression is patient with chronic pain secondary to lumbosacral spondylosis and facet joint loading pain clinically on the left side at L4-5, L5-S1 and myofascial spasm. RECOMMENDATIONS: I have asked her to continue with Flexeril, increase it as tolerated, 2 mg pills, half a pill b.i.d. and one at h.s. Proceed with a diagnostic left sided L4-5, L5-S1 facet joint injection under fluoroscopic guidance and aquatic therapy. As part of providing excellent, safe, comprehensive care, the following was completed at our patient's visit: 1. A medication reconciliation and review to ensure accurate knowledge of current/active medications, including asking our patients to inform us about any ntnc-xhy-qhwwpbz medications or herbal remedies/nutritional supplements/alternative remedies. 2. A review to specifically ensure our patients have had annual screening for: elevated body mass index (BMI, see intake chart for exact total), tobacco use, screening for depression, and screening for unhealthy alcohol use. When screening is concerning, patients are provided with education and the specific recommendation to discuss the concerning health issue and treatment options with their primary care provider. [facility] 08-29-2022 Hospital Discharg e instructions Patient Education 08/29/2022 18:32:52 Acute Bronchitis, Adult Acute Bronchitis, Adult Acute bronchitis is sudden (acute) swelling of the air tubes (bronchi) in the lungs. Acute bronchitis causes these tubes to fill with mucus, which can make it hard to breathe. It can also cause coughing or wheezing. In adults, acute bronchitis usually goes away within 2 weeks. A cough caused by bronchitis may last up to 3 weeks. Smoking, allergies, and asthma can make the condition worse. Repeated episodes of bronchitis may cause further lung problems, such as chronic obstructive pulmonary disease (COPD). What are the causes? This condition can be caused by germs and by substances that irritate the lungs, including: Cold and flu viruses. This condition is most often caused by the same virus that causes a cold. Bacteria. Exposure to tobacco smoke, dust, fumes, and air pollution. What increases the risk? This condition is more likely to develop in people who: Have close contact with someone with acute bronchitis. Are exposed to lung irritants, such as tobacco smoke, dust, fumes, and vapors. Have a weak immune system. Have a respiratory condition such as asthma. What are the signs or symptoms? Symptoms of this condition include: A cough. Coughing up clear, yellow, or green mucus. Wheezing. Chest congestion. Shortness of breath. A fever. Body aches. Chills. A sore throat. How is this diagnosed? This condition is usually diagnosed with a physical exam. During the exam, your health care provider may order tests, such as chest X-rays, to rule out other conditions. He or she may also: Test a sample of your mucus for bacterial infection. Check the level of oxygen in your blood. This is done to check for pneumonia. Do a chest X-ray or lung function testing to rule out pneumonia and other conditions. Perform blood tests. Your health care provider will also ask about your symptoms and medical history. How is this treated? Most cases of acute bronchitis clear up over time without treatment. Your health care provider may recommend: Drinking more fluids. Drinking more makes your mucus thinner, which may make it easier to breathe. Taking a medicine for a fever or cough. Taking an antibiotic medicine. Using an inhaler to help improve shortness of breath and to control a cough. Using a cool mist vaporizer or humidifier to make it easier to breathe. Follow these instructions at home: Medicines Take sqto-rjl-emcxqbn and prescription medicines only as told by your health care provider. If you were prescribed an antibiotic, take it as told by your health care provider. Do not stop taking the antibiotic even if you start to feel better. General instructions Get plenty of rest. Drink enough fluids to keep your urine pale yellow. Avoid smoking and secondhand smoke. Exposure to cigarette smoke or irritating chemicals will make bronchitis worse. If you smoke and you need help quitting, ask your health care provider. Quitting smoking will help your lungs heal faster. Use an inhaler, cool mist vaporizer, or humidifier as told by your health care provider. Keep all follow-up visits as told by your health care provider. This is important. How is this prevented? To lower your risk of getting this condition again: Wash your hands often with soap and water. If soap and water are not available, use hand machine pecan gatherer. Avoid contact with people who have cold symptoms. Try not to touch your hands to your mouth, nose, or eyes. Make sure to get the flu shot every year. Contact a health care provider if: Your symptoms do not improve in 2 weeks of treatment. Get help right away if: You cough up blood. You have chest pain. You have severe shortness of breath. You become dehydrated. You faint or keep feeling like you are going to faint. You keep vomiting. You have a severe headache. Your fever or chills gets worse. This information is not intended to replace advice given to you by your health care provider. Make sure you discuss any questions you have with your health care provider. Document Released: 10/08/2005 Document Revised: 07/14/2019 Document Reviewed: 02/18/2017 [employer] Patient Education 2020 [employer]. Follow Up Care 08/29/2022 17:24:30 With:BENTLEY LUCERO Address: [address] [place] [address]- Business (1) When:09/01/2022 18:22:15 Comments:Follow-up with your primary care provider in 3 to 5 days. If symptoms worsen, do not improve, or new symptoms arise please report back to emergency department for further evaluation. [facility] 06-18-2022 Hospital Discharg e instructions Patient Education 06/18/2022 13:28:17 Upper Respiratory Infection, Adult Upper Respiratory Infection, Adult An upper respiratory infection (URI) is a common viral infection of the nose, throat, and upper air passages that lead to the lungs. The most common type of URI is the common cold. URIs usually get better on their own, without medical treatment. What are the causes? A URI is caused by a virus. You may catch a virus by: Breathing in droplets from an infected person's cough or sneeze. Touching something that has been exposed to the virus (contaminated) and then touching your mouth, nose, or eyes. What increases the risk? You are more likely to get a URI if: You are very young or very old. It is darshan or winter. You have close contact with others, such as at a daycare, school, or health care facility. You smoke. You have long-term (chronic) heart or lung disease. You have a weakened disease-fighting (immune) system. You have nasal allergies or asthma. You are experiencing a lot of stress. You work in an area that has poor air circulation. You have poor nutrition. What are the signs or symptoms? A URI usually involves some of the following symptoms: Runny or stuffy (congested) nose. Sneezing. Cough. Sore throat. Headache. Fatigue. Fever. Loss of appetite. Pain in your forehead, behind your eyes, and over your cheekbones (sinus pain). Muscle aches. Redness or irritation of the eyes. Pressure in the ears or face. How is this diagnosed? This condition may be diagnosed based on your medical history and symptoms, and a physical exam. Your health care provider may use a cotton swab to take a mucus sample from your nose (nasal swab). This sample can be tested to determine what virus is causing the illness. How is this treated? URIs usually get better on their own within 7 10 days. You can take steps at home to relieve your symptoms. Medicines cannot cure URIs, but your health care provider may recommend certain medicines to help relieve symptoms, such as: Vrdx-eds-rmaknvm cold medicines. Cough suppressants. Coughing is a type of defense against infection that helps to clear the respiratory system, so take these medicines only as recommended by your health care provider. Fever-reducing medicines. Follow these instructions at home: Activity Rest as needed. If you have a fever, stay home from work or school until your fever is gone or until your health care provider says you are no longer contagious. Your health care provider may have you wear a face mask to prevent your infection from spreading. Relieving symptoms Gargle with a salt-water mixture 3 4 times a day or as needed. To make a salt-water mixture, completely dissolve 1 tsp of salt in 1 cup of warm water. Use a cool-mist humidifier to add moisture to the air. This can help you breathe more easily. Eating and drinking Drink enough fluid to keep your urine pale yellow. Eat soups and other clear broths. General instructions Take bbxd-vjq-gjubfoo and prescription medicines only as told by your health care provider. These include cold medicines, fever reducers, and cough suppressants. Do not use any products that contain nicotine or tobacco, such as cigarettes and e-cigarettes. If you need help quitting, ask your health care provider. Stay away from secondhand smoke. Stay up to date on all immunizations, including the yearly (annual) flu vaccine. Keep all follow-up visits as told by your health care provider. This is important. How to prevent the spread of infection to others URIs can be passed from person to person (are contagious). To prevent the infection from spreading: ?Wash your hands often with soap and water. If soap and water are not available, use hand machine pecan gatherer. ?Avoid touching your mouth, face, eyes, or nose. ?Cough or sneeze into a tissue or your sleeve or elbow instead of into your hand or into the air. Contact a health care provider if: You are getting worse instead of better. You have a fever or chills. Your mucus is brown or red. You have yellow or brown discharge coming from your nose. You have pain in your face, especially when you bend forward. You have swollen neck glands. You have pain while swallowing. You have white areas in the back of your throat. Get help right away if: You have shortness of breath that gets worse. You have severe or persistent: ?Headache. ?Ear pain. ?Sinus pain. ?Chest pain. You have chronic lung disease along with any of the following: ?Wheezing. ?Prolonged cough. ?Coughing up blood. ?A change in your usual mucus. You have a stiff neck. You have changes in your: ?Vision. ?Hearing. ?Thinking. ?Mood. Summary An upper respiratory infection (URI) is a common infection of the nose, throat, and upper air passages that lead to the lungs. A URI is caused by a virus. URIs usually get better on their own within 7 10 days. Medicines cannot cure URIs, but your health care provider may recommend certain medicines to help relieve symptoms. This information is not intended to replace advice given to you by your health care provider. Make sure you discuss any questions you have with your health care provider. Document Released: 02/24/2002 Document Revised: 09/08/2019 Document Reviewed: 04/16/2018 [employer] Patient Education [employer]. Follow Up Care 06/18/2022 11:58:34 With:BENTLEY LUCERO Address: [address] [place] [address] [place] [address] [facility] (1) When:06/21/2022 13:13:35 [facility] 06-18-2022 Evaluation + Plan note Extrac flavio from: Title:ED Note Author:Grant Jacob PA-C te:06/18/22 Upper respiratory infection (J06.9: Acute upper respiratory infection, unspecified) Orders: loratadine-pseudoephedrine, 1 tab(s), Oral, q12hr for 10 day(s), 20 tab(s), Refill(s) 0, [facility], 165, cm, 06/18/22 12:19:00 EDT, Height/Length Dosing, 86, kg, 06/18/22 12:19:00 EDT, Weight Dosing Rapid COVID Antigen ([facility] [facility]09-14-2022 Evaluation + Plan noteExtracted from: Title:ED Note Author:Connor Castellanos DO Date: Chronic left-sided low back pain with left-sided sciatica (M54.42: Lumbago with sciatica, left side) Headache (R51.9: Headache, unspecified) Other chronic pain (G89.29: Other chronic pain) Orders: cyclobenzaprine, 10 mg = 1 tab(s), Oral, TID, PRN Muscle pain, # 15 tab(s), Refills(s) 0, Pharmacy: [facility], 165, cm, 05/28/22 10:56:00 EDT, Height/Length Dosing, 86, kg, 05/28/22 10:56:00 EDT, Weight Dosing ketorolac, 30 mg = 1 mL, Injection, IntraMuscular, Once, Stop date 05/28/22 11:29:00 EDT, STAT, Start date 05/28/22 11:29:00 EDT, 05/28/22 11:29:00 EDT methylPREDNISolone, = 1 packet(s), Oral, As Directed, as directed on package labeling, X 6 day(s), # 21 tab(s), Refills(s) 0, Pharmacy: [facility], 165, cm, 05/28/22 10:56:00 EDT, Height/Length Dosing, 86, kg, 05/28/22 10:56:00 EDT, Weight Dosing naproxen, 500 mg = 1 tab(s), Oral, BID, PRN for pain, # 20 tab(s), Refills(s) 0, Pharmacy: [facility], 165, cm, 05/28/22 10:56:00 EDT, Height/Length Dosing, 86, kg, 05/28/22 10:56:00 EDT, Weight Dosing orphenadrine, 60 mg = 2 mL, Injection, IntraMuscular, Once, Stop date 05/28/22 11:29:00 EDT, STAT, Start date 05/28/22 11:29:00 EDT, 05/28/22 11:29:00 EDT [facility]09-14-2022 Hospital Discharge instructions Patient Education 05/28/2022 11:31:52 Sciatica Sciatica Sciatica is pain, numbness, weakness, or tingling along the path of the sciatic nerve. The sciatic nerve starts in the lower back and runs down the back of each leg. The nerve controls the muscles inthe lower leg and in the back of the knee. It also provides feeling (sensation) to the back of the thigh, the lower leg, and the sole of the foot. Sciatica is a symptom of another medical condition that pinches or puts pressure on the sciatic nerve. Sciatica most often only affects one side of the body. Sciatica usually goes away on its own or with treatment. In some cases, sciatica may come back (recur). What are the causes? This condition is caused by pressure on the sciatic nerve or pinching of the nerve. This may be theresult of: A disk in between the bones of the spine bulging out too far (herniated disk). Age-related changes in the spinal disks. A pain disorder that affects a muscle in the buttock. Extra bone growth near the sciatic nerve. A break (fracture) of the pelvis. . Tumor. This is rare. What increases the risk? The following factors may make you more likely to develop this condition: Playing sports that place pressure or stress on the spine. Having poor strength and flexibility. A history of back injury or surgery. Sitting for long periods of time. Doing activities that involve repetitive bending or lifting. Obesity. What are the signs or symptoms? Symptoms can vary from mild to very severe, and they may include: Any of these problems in the lower back, leg, hip, or buttock: ?Mild tingling, numbness, or dull aches. ?Burning sensations. ?Sharp pains. Numbness in the back of the calf or the sole of the foot. Leg weakness. Severe back pain that makes movement difficult. Symptoms may get worse when you cough, sneeze, or laugh, or when you sit or stand for long periods of time. How is this diagnosed? This condition may be diagnosed based on: Your symptoms and medical history. A physical exam. Blood tests. Imaging tests, such as: ?X-rays. ?MRI. ?CT scan. How is this treated? In many cases, this condition improves on its own without treatment. However, treatment may include: Reducing or modifying physical activity. Exercising and stretching. Icing and applying heat to the affected area. Medicines that help to: ?Relieve pain and swelling. ?Relax your muscles. Injections of medicines that help to relieve pain, irritation, and inflammation around the sciatic nerve (steroids). Surgery. Follow these instructions at home: Medicines Take panf-vmk-zbjovfn and prescription medicines only as told by your health care provider. Ask your health care provider if the medicine prescribed to you: ?Requires you to avoid driving or using heavy machinery. ?Can cause constipation. You may need to take these actions to prevent or treat constipation: ?Drink enough fluid to keep your urine pale yellow. ?Take ylnf-hki-uvllweu or prescription medicines. ?Eat foods that are high in fiber, such as beans, whole grains, and fresh fruits and vegetables. ?Limit foods that are high in fat and processed sugars, such as fried or sweet foods. Managing pain If directed, put ice on the affected area. ?Put ice in a plastic bag. ?Place a towel between your skin and the bag. ?Leave the ice on for 20 minutes, 2 3 times a day. If directed, apply heat to the affected area. Use the heat source that your health care provider recommends, such as a moist heat pack or a heating pad. ?Place a towel between your skin and the heat source. ?Leave the heat on for 20 30 minutes. ?Remove the heat if your skin turns bright red. This is especially important if you are unable to feel pain, heat, or cold. You may have a greater risk of getting burned. Activity Return to your normal activities as told by your health care provider. Ask your health care provider what activities are safe for you. Avoid activities that make your symptoms worse. Take brief periods of rest throughout the day. ?When you rest for longer periods, mix in some mild activity or stretching between periods of rest.This will help to prevent stiffness and pain. ?Avoid sitting for long periods of time without moving. Get up and move around at least one time each hour. Exercise and stretch regularly, as told by your health care provider. Do not lift anything that is heavier than 10 lb (4.5 kg) while you have symptoms of sciatica. When you do not have symptoms, you should still avoid heavy lifting, especially repetitive heavy lifting. When you lift objects, always use proper lifting technique, which includes: ?Bending your knees. ?Keeping the load close to your body. ?Avoiding twisting. General instructions Maintain a healthy weight. Excess weight puts extra stress on your back. Wear supportive, comfortable shoes. Avoid wearing high heels. Avoid sleeping on a mattress that is too soft or too hard. A mattress that is firm enough to support your back when you sleep may help to reduce your pain. Keep all follow-up visits as told by your health care provider. This is important. Contact a health care provider if: You have pain that: ?Wakes you up when you are sleeping. ?Gets worse when you lie down. ?Is worse than you have experienced in the past. ?Lasts longer than 4 weeks. You have an unexplained weight loss. Get help right away if: You are not able to control when you urinate or have bowel movements (incontinence). You have: ?Weakness in your lower back, pelvis, buttocks, or legs that gets worse. ?Redness or swelling of your back. ?A burning sensation when you urinate. Summary Sciatica is pain, numbness, weakness, or tingling along the path of the sciatic nerve. This condition is caused by pressure on the sciatic nerve or pinching of the nerve. Sciatica can cause pain, numbness, or tingling in the lower back, legs, hips, and buttocks. Treatment often includes rest, exercise, medicines, and applying ice or heat. This information is not intended to replace advice given to you by your health care provider. Make sure you discuss any questions you have with your health care provider. Document Released: 08/25/2002 Document Revised: 09/19/2019 Document Reviewed: 09/19/2019 [employer] Patient Education 2020 [employer]. 05/28/2022 11:31:52 Tension Headache, Adult Tension Headache, Adult A tension headache is a feeling of pain, pressure, or aching in the head that is often felt over the front and sides of the head. The pain can be dull, or it can feel tight (constricting). There are two types of tension headache: Episodic tension headache. This is when the headaches happen fewer than 15 days a month. Chronic tension headache. This is when the headaches happen more than 15 days a month during a 3-month period. A tension headache can last from 30 minutes to several days. It is the most common kind of headache. Tension headaches are not normally associated with nausea or vomiting, and they do not get worse with physical activity. What are the causes? The exact cause of this condition is not known. Tension headaches are often triggered by stress, anxiety, or depression. Other triggers include: Alcohol. Too much caffeine or caffeine withdrawal. Respiratory infections, such as colds, flu, or sinus infections. Dental problems or teeth clenching. Tiredness (fatigue). Holding your head and neck in the same position for a long period of time, such as while using a computer. Smoking. Arthritis of the neck. What are the signs or symptoms? Symptoms of this condition include: A feeling of pressure or tightness around the head. Dull, aching head pain. Pain over the front and sides of the head. Tenderness in the muscles of the head, neck, and shoulders. How is this diagnosed? This condition may be diagnosed based on your symptoms, your medical history, and a physical exam. If your symptoms are severe or unusual, you may have imaging tests, such as a CT scan or an MRI of your head. Your vision may also be checked. How is this treated? This condition may be treated with lifestyle changes and with medicines that help relieve symptoms. Follow these instructions at home: Managing pain Take fyju-nwx-hozkrfl and prescription medicines only as told by your health care provider. When you have a headache, lie down in a dark, quiet room. If directed, apply ice to the head and neck: ?Put ice in a plastic bag. ?Place a towel between your skin and the bag. ?Leave the ice on for 20 minutes, 2 3 times a day. If directed, apply heat to the back of your neck as often as told by your health care provider. Usethe heat source that your health care provider recommends, such as a moist heat pack or a heating pad. ?Place a towel between your skin and the heat source. ?Leave the heat on for 20 30 minutes. ?Remove the heat if your skin turns bright red. This is especially important if you are unable to feel pain, heat, or cold. You may have a greater risk of getting burned. Eating and drinking Eat meals on a regular schedule. Limit alcohol intake to no more than 1 drink a day for non women and 2 drinks a day for men. One drink equals 12 oz of beer, 5 oz of wine, or 1 oz of hard liquor. Drink enough fluid to keep your urine pale yellow. Decrease your caffeine intake, or stop using caffeine. Lifestyle Get 7 9 hours of sleep each night, or get the amount of sleep recommended by your health care provider. At bedtime, remove all electronic devices from your room. Electronic devices include computers, phones, and tablets. Find ways to manage your stress. Some things that can help relieve stress include: ?Exercise. ?Deep breathing exercises. ?Yoga. ?Listening to music. ?Positive mental imagery. Try to sit up straight and avoid tensing your muscles. Do not use any products that contain nicotine or tobacco, such as cigarettes and e-cigarettes. If you need help quitting, ask your health care provider. General instructions Keep all follow-up visits as told by your health care provider. This is important. Avoid any headache triggers. Keep a headache journal to help find out what may trigger your headaches. For example, write down: ?What you eat and drink. ?How much sleep you get. ?Any change to your diet or medicines. Contact a health care provider if: Your headache does not get better. Your headache comes back. You are sensitive to sounds, light, or smells because of a headache. You have nausea or you vomit. Your stomach hurts. Get help right away if: You suddenly develop a very severe headache along with any of the following: ?A stiff neck. ?Nausea and vomiting. ?Confusion. ?Weakness. ?Double vision or loss of vision. ?Shortness of breath. ?Rash. ?Unusual sleepiness. ?Fever. ?Trouble speaking. ?Pain in your eyes or ears. ?Trouble walking or balancing. ?Feeling faint or passing out. Summary A tension headache is a feeling of pain, pressure, or aching in the head that is often felt over the front and sides of the head. A tension headache can last from 30 minutes to several days. It is the most common kind of headache. This condition may be diagnosed based on your symptoms, your medical history, and a physical exam. This condition may be treated with lifestyle changes and with medicines that help relieve symptoms. This information is not intended to replace advice given to you by your health care provider. Make sure you discuss any questions you have with your health care provider. Document Released: 08/31/2006 Document Revised: 08/13/2018 Document Reviewed: 12/11/2017 [employer] Patient Education 2020 [employer]. Follow Up Care 05/28/2022 10:44:46 With:BENTLEY LUCERO Address: [address] [place] [address]- Business (1) When:05/31/2022 11:30:41 Comments:Call the office of your primary care doctor to arrange for follow-up within the above-stated timeframe. Follow-up with your primary care doctor about this ED visit. You should review your labs, imaging, and diagnoses from this ED visit with your primary care physician. If you were prescribed medications you should discuss possible side-effects and drug interactions with your pharmacist. Call 911 or go to the nearest Emergency Department if you develop any new or worsening symptoms.Seek immediate medical attention if you develop: worsening headache, nausea, vomiting, confusion, weakness, loss of motion in your arms or legs, loss of control of your urine or stool, difficulty waking from sleep, neck pain, fever, or any new or worsening symptoms.Seek immediate medical attention if you develop: increasing pain, numbness, tingling, weakness, loss of motion in your arms or legs, loss of control of your urine or stool, fever, abdominal pain, chest pain, shortness of breath, or any new or worsening symptoms. [facility]06-07-2022 NoteMicrobiology PROCEDURE: Strep Screen Culture [R1] SOURCE: Throat BODY SITE: COLLECTED DATE/TIME: 02/16/2022 12:08 EDT RECEIVED DATE/TIME: 02/16/2022 14:27 EDT START DATE/TIME: 02/16/2022 14:27 EDT FREE TEXT SOURCE: Cary Archuleta PA-C, PA-C, Kathryn E. FINAL REPORTS Final Report [] Verified Date/Time: 02/18/2022 11:48 EDT No Pathogenic Streptococcus Isolated Performing Locations R1: This test was performed at: [facility], [address] [place] [address], [address] [place] [address], [facility] DaytonComment on above:Performed By: #### [id number], [id number], [id number] ####[facility] [address] [place], [place] [id number] NoteInfectious Disease COVID-19 Frequently Asked Questions COVID-19 (coronavirus disease) is an infection that is caused by a large family of viruses. Some viruses cause illness in people and others cause illness in animals like camels, cats, and bats. In some cases, the viruses that cause illness in animals can spread to humans. Where did the coronavirus come from? In August 2019, [place] told the World Health Organization (WHO) of several cases of lung disease (human respiratory illness). These cases were linked to an open seafood and livestock market in the city of [facility]. The link to the seafood and livestock market suggests that the virus may have spread from animals to humans. However, since that first outbreak in August, the virus has also been shownto spread from person to person. What is the name of the disease and the virus? Disease name Early on, this disease was called novel coronavirus. This is because scientists determined that thedisease was caused by a new (novel) respiratory virus. The World Health Organization (WHO) has now named the disease COVID-19, or coronavirus disease. Virus name The virus that causes the disease is called severe acute respiratory syndrome coronavirus 2 (SARS-CoV-2). More information on disease and virus naming World Health Organization (WHO): www.who.int/emergencies/diseases/aoebl-kdrwbccqvjf-8256/technical-g uidance/hurygh-bwk-sqdimujjhod-disease-(covid-2019)-ypf-ycu-nrcaf-awnd-cnnuui-pc Who is at risk for complications from coronavirus disease? Some people may be at higher risk for complications from coronavirus disease. This includes older adults and people who have chronic diseases, such as heart disease, diabetes, and lung disease. If you are at higher risk for complications, take these extra precautions: ? Avoid close contact with people who are sick or have a fever or cough. Stay at least 3?6 ft (1?2 m) away from them, if possible. ? Wash your hands often with soap and water for at least 20 seconds. ? Avoid touching your face, mouth, nose, or eyes. ? Keep supplies on hand at home, such as food, medicine, and cleaning supplies. ? Stay home as much as possible. ? Avoid social gatherings and travel. How does coronavirus disease spread? The virus that causes coronavirus disease spreads easily from person to person (is contagious). There are also cases of community-spread disease. This means the disease has spread to: ? People who have no known contact with other infected people. ? People who have not traveled to areas where there are known cases. It appears to spread from one person to another through droplets from coughing or sneezing. Can I get the virus from touching surfaces or objects? There is still a lot that we do not know about the virus that causes coronavirus disease. Scientists are basing a lot of information on what they know about similar viruses, such as: ? Viruses cannot generally survive on surfaces for long. They need a human body (host) to survive. ? It is more likely that the virus is spread by close contact with people who are sick (direct contact), such as through: ? Shaking hands or hugging. ? Breathing in respiratory droplets that travel through the air. This can happen when an infected person coughs or sneezes on or near other people. ? It is less likely that the virus is spread when a person touches a surface or object that has thevirus on it (indirect contact). The virus may be able to enter the body if the person touches a surface or object and then touches his or her face, eyes, nose, or mouth. Can a person spread the virus without having symptoms of the disease? It may be possible for the virus to spread before a person has symptoms of the disease, but this ismost likely not the main way the virus is spreading. It is more likely for the virus to spread by being in close contact with people who are sick and breathing in the respiratory droplets of a sick person's cough or sneeze. What are the symptoms of coronavirus disease? Symptoms vary from person to person and can range from mild to severe. Symptoms may include: ? Fever. ? Cough. ? Tiredness, weakness, or fatigue. ? Fast breathing or feeling short of breath. These symptoms can appear anywhere from 2 to 14 days after you have been exposed to the virus. If you develop symptoms, call your health care provider. People with severe symptoms may need hospital care. If I am exposed to the virus, how long does it take before symptoms start? Symptoms of coronavirus disease may appear anywhere from 2 to 14 days after a person has been exposed to the virus. If you develop symptoms, call your health care provider. Should I be tested for this virus? Your health care provider will decide whether to test you based on your symptoms, history of exposure, and your risk factors. How does a health care provider test for this virus? Health care providers will collect samples to send for testing. Samples may in (more content not included)...[facility]04-28-2022 Hospital Discharge instructions Patient Education 01/09/2022 15:57:51 COVID-19 Frequently Asked Questions COVID-19 Frequently Asked Questions COVID-19 (coronavirus disease) is an infection that is caused by a large family of viruses. Some viruses cause illness in people and others cause illness in animals like camels, cats, and bats. In some cases, the viruses that cause illness in animals can spread to humans. Where did the coronavirus come from? In August 2019, [place] told the World Health Organization (WHO) of several cases of lung disease (human respiratory illness). These cases were linked to an open seafood and livestock market in the city of [facility]. The link to the seafood and livestock market suggests that the virus may have spread from animals to humans. However, since that first outbreak in August, the virus has also been shownto spread from person to person. What is the name of the disease and the virus? Disease name Early on, this disease was called novel coronavirus. This is because scientists determined that thedisease was caused by a new (novel) respiratory virus. The World Health Organization (WHO) has now named the disease COVID-19, or coronavirus disease. Virus name The virus that causes the disease is called severe acute respiratory syndrome coronavirus 2 (SARS-CoV-2). More information on disease and virus naming World Health Organization (WHO): www.who.int/emergencies/diseases/frbke-vjlppaupcjs-9573/technical-g uidance/gemuhv-yog-ilufxsymcag-disease-(covid-2019)-dyw-jfn-edlpk-qxas-hrnojf-pg Who is at risk for complications from coronavirus disease? Some people may be at higher risk for complications from coronavirus disease. This includes older adults and people who have chronic diseases, such as heart disease, diabetes, and lung disease. If you are at higher risk for complications, take these extra precautions: Avoid close contact with people who are sick or have a fever or cough. Stay at least 3 6 ft (1 2 m)away from them, if possible. Wash your hands often with soap and water for at least 20 seconds. Avoid touching your face, mouth, nose, or eyes. Keep supplies on hand at home, such as food, medicine, and cleaning supplies. Stay home as much as possible. Avoid social gatherings and travel. How does coronavirus disease spread? The virus that causes coronavirus disease spreads easily from person to person (is contagious). There are also cases of community-spread disease. This means the disease has spread to: People who have no known contact with other infected people. People who have not traveled to areas where there are known cases. It appears to spread from one person to another through droplets from coughing or sneezing. Can I get the virus from touching surfaces or objects? There is still a lot that we do not know about the virus that causes coronavirus disease. Scientists are basing a lot of information on what they know about similar viruses, such as: Viruses cannot generally survive on surfaces for long. They need a human body (host) to survive. It is more likely that the virus is spread by close contact with people who are sick (direct contact), such as through: ?Shaking hands or hugging. ?Breathing in respiratory droplets that travel through the air. This can happen when an infected person coughs or sneezes on or near other people. It is less likely that the virus is spread when a person touches a surface or object that has the virus on it (indirect contact). The virus may be able to enter the body if the person touches a surface or object and then touches his or her face, eyes, nose, or mouth. Can a person spread the virus without having symptoms of the disease? It may be possible for the virus to spread before a person has symptoms of the disease, but this ismost likely not the main way the virus is spreading. It is more likely for the virus to spread by being in close contact with people who are sick and breathing in the respiratory droplets of a sick person's cough or sneeze. What are the symptoms of coronavirus disease? Symptoms vary from person to person and can range from mild to severe. Symptoms may include: Fever. Cough. Tiredness, weakness, or fatigue. Fast breathing or feeling short of breath. These symptoms can appear anywhere from 2 to 14 days after you have been exposed to the virus. If you develop symptoms, call your health care provider. People with severe symptoms may need hospital care. If I am exposed to the virus, how long does it take before symptoms start? Symptoms of coronavirus disease may appear anywhere from 2 to 14 days after a person has been exposed to the virus. If you develop symptoms, call your health care provider. Should I be tested for this virus? Your health care provider will decide whether to test you based on your symptoms, history of exposure, and your risk factors. How does a health care provider test for this virus? Health care providers will collect samples to send for testing. Samples may include: Taking a swab of fluid from the nose. Taking fluid from the lungs by having you cough up mucus (sputum) into a sterile cup. Taking a blood sample. Taking a stool or urine sample. Is there a treatment or vaccine for this virus? Currently, there is no vaccine to prevent coronavirus disease. Also, there are no medicines like antibiotics or antivirals to treat the virus. A person who becomes sick is given supportive care, which means rest and fluids. A person may also relieve his or her symptoms by using kebh-und-bsgoluo medicines that treat sneezing, coughing, and runny nose. These are the same medicines that a person takes for the common cold. If you develop symptoms, call your health care provider. People with severe symptoms may need hospital care. What can I do to protect myself and my family from this virus? You can protect yourself and your family by taking the same actions that you would take to prevent the spread of other viruses. Take the following actions: Wash your hands often with soap and water for at least 20 seconds. If soap and water are not available, use alcohol-based hand machine pecan gatherer. Avoid touching your face, mouth, nose, or eyes. Cough or sneeze into a tissue, sleeve, or elbow. Do not cough or sneeze into your hand or the air. ?If you cough or sneeze into a tissue, throw it away immediately and wash your hands. Disinfect objects and surfaces that you frequently touch every day. Avoid close contact with people who are sick or have a fever or cough. Stay at least 3 6 ft (1 2 m)away from them, if possible. Stay home if you are sick, except to get medical care. Call your health care provider before you get medical care. Make sure your vaccines are up to date. Ask your health care provider what vaccines you need. What should I do if I need to travel? Follow travel recommendations from your local health authority, the CDC, and WHO. Travel information and advice Centers for Disease Control and Prevention (CDC): www.cdc.gov/coronavirus/2019-ncov/travelers/index.html World Health Organization (WHO): www.who.int/emergencies/diseases/iauzj-mscbijkhcid-2873/travel-advice Know the risks and take action to protect your health You are at higher risk of getting coronavirus disease if you are traveling to areas with an outbreak or if you are exposed to travelers from areas with an outbreak. Wash your hands often and practice good hygiene to lower the risk of catching or spreading the virus. What should I do if I am sick? General instructions to stop the spread of infection Wash your hands often with soap and water for at least 20 seconds. If soap and water are not available, use alcohol-based hand machine pecan gatherer. Cough or sneeze into a tissue, sleeve, or elbow. Do not cough or sneeze into your hand or the air. If you cough or sneeze into a tissue, throw it away immediately and wash your hands. Stay home unless you must get medical care. Call your health care provider or local health authority before you get medical care. Avoid public areas. Do not take public transportation, if possible. If you can, wear a mask if you must go out of the house or if you are in close contact with someonewho is not sick. Keep your home clean Disinfect objects and surfaces that are frequently touched every day. This may include: ?Counters and tables. ?Doorknobs and light switches. ?Sinks and faucets. ?Electronics such as phones, remote controls, keyboards, computers, and tablets. Wash dishes in hot, soapy water or use a internal corrosion specialist. Air-dry your dishes. Wash laundry in hot water. Prevent infecting other household members Let healthy household members care for children and pets, if possible. If you have to care for children or pets, wash your hands often and wear a mask. Sleep in a different bedroom or bed, if possible. Do not share personal items, such as razors, toothbrushes, deodorant, deluna, brushes, towels, and washcloths. Where to find more information Centers for Disease Control and Prevention (CDC) Information and news updates: www.cdc.gov/coronavirus/2019-ncov World Health Organization (WHO) Information and news updates: www.who.int/emergencies/diseases/xqjcy-xdbqpmcpdas-9295 Coronavirus health topic: www.who.int/health-topics/coronavirus Questions and answers on COVID-19: www.who.int/news-room/q-a-detail/z-x-skwxnivjlndkb Global tracker: who.[employer]Bid [place] [employer] (AAP) Information for families: www.healthychildren.org/Urdu/health-issues/conditions/chest-lungs/Pages /1546-Eohdw-Xtjieknwwlu.aspx The coronavirus situation is changing rapidly. Check your local health authority website or the [facility] WHO websites for updates and news. When should I contact a health care provider? Contact your health care provider if you have symptoms of an infection, such as fever or cough, andyou: ?Have been near anyone who is known to have coronavirus disease. ?Have come into contact with a person who is suspected to have coronavirus disease. ?Have traveled outside of the country. When should I get emergency medical care? Get help right away by calling your local emergency services (911 in the [place] if you have: ?Trouble breathing. ?Pain or pressure in your chest. ?Confusion. ?Blue-tinged lips and fingernails. ?Difficulty waking from sleep. ?Symptoms that get worse. Let the emergency medical personnel know if you think you have coronavirus disease. Summary A new respiratory virus is spreading from person to person and causing COVID-19 (coronavirus disease). The virus that causes COVID-19 appears to spread easily. It spreads from one person to another through droplets from coughing or sneezing. Older adults and those with chronic diseases are at higher risk of disease. If you are at higher risk for complications, take extra precautions. There is currently no vaccine to prevent coronavirus disease. There are no medicines, such as antibiotics or antivirals, to treat the virus. You can protect yourself and your family by washing your hands often, avoiding touching your face, and covering your coughs and sneezes. This information is not intended to replace advice given to you by your health care provider. Make sure you discuss any questions you have with your health care provider. Document Released: 12/27/2019 Document Revised: 12/27/2019 Document Reviewed: 12/27/2019 [employer] Patient Education 2020 [employer] 01/09/2022 15:57:51 COVID-19 COVID-19 COVID-19 is a respiratory infection that is caused by a virus called severe acute respiratory syndrome coronavirus 2 (SARS-CoV-2). The disease is also known as coronavirus disease or novel coronavirus. In some people, the virus may not cause any symptoms. In others, it may cause a serious infection. The infection can get worse quickly and can lead to complications, such as: Pneumonia, or infection of the lungs. Acute respiratory distress syndrome or ARDS. This is fluid build-up in the lungs. Acute respiratory failure. This is a condition in which there is not enough oxygen passing from thelungs to the body. Sepsis or septic shock. This is a serious bodily reaction to an infection. Blood clotting problems. Secondary infections due to bacteria or fungus. The virus that causes COVID-19 is contagious. This means that it can spread from person to person through droplets from coughs and sneezes (respiratory secretions). What are the causes? This illness is caused by a virus. You may catch the virus by: Breathing in droplets from an infected person's cough or sneeze. Touching something, like a table or a doorknob, that was exposed to the virus (contaminated) and then touching your mouth, nose, or eyes. What increases the risk? Risk for infection You are more likely to be infected with this virus if you: Live in or travel to an area with a COVID-19 outbreak. Come in contact with a sick person who recently traveled to an area with a COVID-19 outbreak. Provide care for or live with a person who is infected with COVID-19. Risk for serious illness You are more likely to become seriously ill from the virus if you: Are 65 years of age or older. Have a long-term disease that lowers your body's ability to fight infection (immunocompromised). Live in a fpc or long-term care facility. Have a long-term (chronic) disease such as: ?Chronic lung disease, including chronic obstructive pulmonary disease or asthma ?Heart disease. ?Diabetes. ?Chronic kidney disease. ?Liver disease. Are obese. What are the signs or symptoms? Symptoms of this condition can range from mild to severe. Symptoms may appear any time from 2 to 14days after being exposed to the virus. They include: A fever. A cough. Difficulty breathing. Chills. Muscle pains. A sore throat. Loss of taste or smell. Some people may also have stomach problems, such as nausea, vomiting, or diarrhea. Other people may not have any symptoms of COVID-19. How is this diagnosed? This condition may be diagnosed based on: Your signs and symptoms, especially if: ?You live in an area with a COVID-19 outbreak. ?You recently traveled to or from an area where the virus is common. ?You provide care for or live with a person who was diagnosed with COVID-19. A physical exam. Lab tests, which may include: ?A nasal swab to take a sample of fluid from your nose. ?A throat swab to take a sample of fluid from your throat. ?A sample of mucus from your lungs (sputum). ?Blood tests. Imaging tests, which may include, X-rays, CT scan, or ultrasound. How is this treated? At present, there is no medicine to treat COVID-19. Medicines that treat other diseases are being used on a trial basis to see if they are effective against COVID-19. Your health care provider will talk with you about ways to treat your symptoms. For most people, the infection is mild and can be managed at home with rest, fluids, and zicz-uzz-shtqfgi medicines. Treatment for a serious infection usually takes places in a hospital intensive care unit (ICU). It may include one or more of the following treatments. These treatments are given until your symptoms improve. Receiving fluids and medicines through an IV. Supplemental oxygen. Extra oxygen is given through a tube in the nose, a face mask, or a palmer. Positioning you to lie on your stomach (prone position). This makes it easier for oxygen to get into the lungs. Continuous positive airway pressure (CPAP) or bi-level positive airway pressure (BPAP) machine. This treatment uses mild air pressure to keep the airways open. A tube that is connected to a motor delivers oxygen to the body. Ventilator. This treatment moves air into and out of the lungs by using a tube that is placed in your windpipe. Tracheostomy. This is a procedure to create a hole in the neck so that a breathing tube can be inserted. Extracorporeal membrane oxygenation (ECMO). This procedure gives the lungs a chance to recover by taking over the functions of the heart and lungs. It supplies oxygen to the body and removes carbon dioxide. Follow these instructions at home: Lifestyle If you are sick, stay home except to get medical care. Your health care provider will tell you how long to stay home. Call your health care provider before you go for medical care. Rest at home as told by your health care provider. Do not use any products that contain nicotine or tobacco, such as cigarettes, e- cigarettes, and chewing tobacco. If you need help quitting, ask your health care provider. Return to your normal activities as told by your health care provider. Ask your health care provider what activities are safe for you. General instructions Take czpn-cfb-elovbyz and prescription medicines only as told by your health care provider. Drink enough fluid to keep your urine pale yellow. Keep all follow-up visits as told by your health care provider. This is important. How is this prevented? There is no vaccine to help prevent COVID-19 infection. However, there are steps you can take to protect yourself and others from this virus. To protect yourself: Do not travel to areas where COVID-19 is a risk. The areas where COVID-19 is reported change often.To identify high-risk areas and travel restrictions, check the CDC travel website: wwwnc.cdc.gov/travel/notices If you live in, or must travel to, an area where COVID-19 is a risk, take precautions to avoid infection. ?Stay away from people who are sick. ?Wash your hands often with soap and water for 20 seconds. If soap and water are not available, usean alcohol-based hand machine pecan gatherer. ?Avoid touching your mouth, face, eyes, or nose. ?Avoid going out in public, follow guidance from your state and local health authorities. ?If you must go out in public, wear a cloth face covering or face mask. ?Disinfect objects and surfaces that are frequently touched every day. This may include: ?Counters and tables. ?Doorknobs and light switches. ?Sinks and faucets. ?Electronics, such as phones, remote controls, keyboards, computers, and tablets. To protect others: If you have symptoms of COVID-19, take steps to prevent the virus from spreading to others. If you think you have a COVID-19 infection, contact your health care provider right away. Tell yourhealth care team that you think you may have a COVID-19 infection. Stay home. Leave your house only to seek medical care. Do not use public transport. Do not travel while you are sick. Wash your hands often with soap and water for 20 seconds. If soap and water are not available, use alcohol-based hand machine pecan gatherer. Stay away from other members of your household. Let healthy household members care for children andpets, if possible. If you have to care for children or pets, wash your hands often and wear a mask.If possible, stay in your own room, separate from others. Use a different bathroom. Make sure that all people in your household wash their hands well and often. Cough or sneeze into a tissue or your sleeve or elbow. Do not cough or sneeze into your hand or into the air. Wear a cloth face covering or face mask. Where to find more information Centers for Disease Control and Prevention: www.cdc.gov/coronavirus/2019-ncov/index.html World Health Organization: www.who.int/health-topics/coronavirus Contact a health care provider if: You live in or have traveled to an area where COVID-19 is a risk and you have symptoms of the infection. You have had contact with someone who has COVID-19 and you have symptoms of the infection. Get help right away if: You have trouble breathing. You have pain or pressure in your chest. You have confusion. You have bluish lips and fingernails. You have difficulty waking from sleep. You have symptoms that get worse. These symptoms may represent a serious problem that is an emergency. Do not wait to see if the symptoms will go away. Get medical help right away. Call your local emergency services (911 in the [place] Do not drive yourself to the hospital. Let the emergency medical personnel know if you think you have COVID-19. Summary COVID-19 is a respiratory infection that is caused by a virus. It is also known as coronavirus disease or novel coronavirus. It can cause serious infections, such as pneumonia, acute respiratory distress syndrome, acute respiratory failure, or sepsis. The virus that causes COVID-19 is contagious. This means that it can spread from person to person through droplets from coughs and sneezes. You are more likely to develop a serious illness if you are 65 years of age or older, have a weak immunity, live in a fpc, or have chronic disease. There is no medicine to treat COVID-19. Your health care provider will talk with you about ways to treat your symptoms. Take steps to protect yourself and others from infection. Wash your hands often and disinfect objects and surfaces that are frequently touched every day. Stay away from people who are sick and wear amask if you are sick. This information is not intended to replace advice given to you by your health care provider. Make sure you discuss any questions you have with your health care provider. Document Released: 10/06/2019 Document Revised: 01/26/2020 Document Reviewed: 10/06/2019 [employer] Patient Education 2019 [employer]. Follow Up Care 01/09/2022 13:51:01 With:BENTLEY LUCERO Address: [address] [place] [address] [facility] (1) When:01/12/2022 15:45:42 Comments:You should self quarantine for 5 days. Return to the emergency room if your symptoms get worse, youdevelop chest pain, shortness of breath or any new symptoms. [facility]04-28-2022 Evaluation + Plan noteExtracted from: Title:ED Note Author:Paul Moss, Devendra Ramirez te:01/09/22 1. COVID-19 virus infection (U07.1: COVID-19) Orders: ibuprofen, 600 mg = 1 tab(s), Tab, Oral, Once, Stop date 01/09/22 14:06:00 EDT, STAT, Start date 01/09/22 14:06:00 EDT, 01/09/22 14:06:00 EDT Group A Strep by PCR Influenza A&B Ag Rapid COVID Antigen [place] Rapid Strep w/rfx [facility]01-11-2022 NoteInfectious Disease COVID-19 COVID-19 is a respiratory infection that is caused by a virus called severe acute respiratory syndrome coronavirus 2 (SARS-CoV-2). The disease is also known as coronavirus disease or novel coronavirus. In some people, the virus may not cause any symptoms. In others, it may cause a serious infection. The infection can get worse quickly and can lead to complications, such as: ? Pneumonia, or infection of the lungs. ? Acute respiratory distress syndrome or ARDS. This is fluid build-up in the lungs. ? Acute respiratory failure. This is a condition in which there is not enough oxygen passing from the lungs to the body. ? Sepsis or septic shock. This is a serious bodily reaction to an infection. ? Blood clotting problems. ? Secondary infections due to bacteria or fungus. The virus that causes COVID-19 is contagious. This means that it can spread from person to person through droplets from coughs and sneezes (respiratory secretions). What are the causes? This illness is caused by a virus. You may catch the virus by: ? Breathing in droplets from an infected person's cough or sneeze. ? Touching something, like a table or a doorknob, that was exposed to the virus (contaminated) and then touching your mouth, nose, or eyes. What increases the risk? Risk for infection You are more likely to be infected with this virus if you: ? Live in or travel to an area with a COVID-19 outbreak. ? Come in contact with a sick person who recently traveled to an area with a COVID-19 outbreak. ? Provide care for or live with a person who is infected with COVID-19. Risk for serious illness You are more likely to become seriously ill from the virus if you: ? Are 65 years of age or older. ? Have a long-term disease that lowers your body's ability to fight infection (immunocompromised). ? Live in a fpc or long-term care facility. ? Have a long-term (chronic) disease such as: ? Chronic lung disease, including chronic obstructive pulmonary disease or asthma ? Heart disease. ? Diabetes. ? Chronic kidney disease. ? Liver disease. ? Are obese. What are the signs or symptoms? Symptoms of this condition can range from mild to severe. Symptoms may appear any time from 2 to 14days after being exposed to the virus. They include: ? A fever. ? A cough. ? Difficulty breathing. ? Chills. ? Muscle pains. ? A sore throat. ? Loss of taste or smell. Some people may also have stomach problems, such as nausea, vomiting, or diarrhea. Other people may not have any symptoms of COVID-19. How is this diagnosed? This condition may be diagnosed based on: ? Your signs and symptoms, especially if: ? You live in an area with a COVID-19 outbreak. ? You recently traveled to or from an area where the virus is common. ? You provide care for or live with a person who was diagnosed with COVID-19. ? A physical exam. ? Lab tests, which may include: ? A nasal swab to take a sample of fluid from your nose. ? A throat swab to take a sample of fluid from your throat. ? A sample of mucus from your lungs (sputum). ? Blood tests. ? Imaging tests, which may include, X-rays, CT scan, or ultrasound. How is this treated? At present, there is no medicine to treat COVID-19. Medicines that treat other diseases are being used on a trial basis to see if they are effective against COVID-19. Your health care provider will talk with you about ways to treat your symptoms. For most people, the infection is mild and can be managed at home with rest, fluids, and jbof-afd-uorihyt medicines. Treatment for a serious infection usually takes places in a hospital intensive care unit (ICU). It may include one or more of the following treatments. These treatments are given until your symptoms improve. ? Receiving fluids and medicines through an IV. ? Supplemental oxygen. Extra oxygen is given through a tube in the nose, a face mask, or a palmer. ? Positioning you to lie on your stomach (prone position). This makes it easier for oxygen to get into the lungs. ? Continuous positive airway pressure (CPAP) or bi-level positive airway pressure (BPAP) machine. This treatment uses mild air pressure to keep the airways open. A tube that is connected to a motor delivers oxygen to the body. ? Ventilator. This treatment moves air into and out of the lungs by using a tube that is placed in your windpipe. ? Tracheostomy. This is a procedure to create a hole in the neck so that a breathing tube can be inserted. ? Extracorporeal membrane oxygenation (ECMO). This procedure gives the lungs a chance to recover bytaking over the functions of the heart and lungs. It supplies oxygen to the body and removes carbondioxide. Follow these instructions at home: Lifestyle ? If you are sick, stay home except to get medical care. Your health care provider will tell you how long to stay home. Call your health care provider before you go for medical care. ? Rest at h (more content not included)...[facility] AccessData Other Evaluation noteNo assessment information available [facility] Work Phone: [employer] general Narrative - Reported* Type Description Date Surgical History appendectomy [facility] [employer] Other Hospital course Narrative No data available for this section [facility] No data available for this section [facility] No data available for this section [facility] Summary Purpose Family History No Family History Records Found Relationship Condition Age at Onset Recorded Date/T nickolas Not Specified Atrial fibrillation Unknown Hiatal hernia Unknown Polyp of colon Unknown Diverticulitis Unknown grandparent Malignant neoplasm Unknown grandparent Diabetes mellitus Unknown Malignant neoplasm of kidney Unknown Atrial fibrillation Unknown father Atrial fibrillation Unknown Advance Directives No Advanced Directives Records Found Advance Directive Response Recorded Date/ Time Advance Directives No April 07 10:18am Advance Directive Response Recorded Date/ Time Advance Directives No April 07 11:18am Chief Complaint and Reason for Visit Chief Complaint E61.1;E55.9 N63.25 Chief Complaint m54.2 r00.2 Additional Source Comments INFORMATION SOURCE (unrecogn ized section and content) DATE CREATED AUTHOR 03/22/2018 [facility] DATE CREATED AUTHOR AUTHOR'S ORGANIZ ATION 09/07/2022 [facility] DATE CREATED AUTHOR AUTHOR'S ORGANIZ ATION 01/28/2023 [facility] DATE CREATED AUTHOR AUTHOR'S ORGANIZ ATION 05/27/2023 [facility] DATE CREATED AUTHOR AUTHOR'S ORGANIZ ATION 06/03/2023 [facility] DATE CREATED AUTHOR AUTHOR'S ORGANIZ ATION 08/14/2023 [facility] Care Team (unrecognized sect ion and content) Team Status: Inactive Member Role Status Dates Bentley Lucero NP-Rosy Primary Care Provider, Attending Provider Active Team Status: Active Member Role Status Dates Bentley Lucero NP-[facility] Primary Care Provider Active Team Status: Inactive Member Role Status Dates Bentley Lucero NP-C Attending Provider Active Team Status: Active Member Role Status Dates [facility] Primary Care Provider Ac tive Team Status: Inactive Member Role Status Dates SHANELLE Galdamez Attending Provider Active Services [facility] Primary Care Provider Julio joseph REASON FOR VISIT (unrecogniz ed section and content) 3 month follow up Goals (unrecognized section and content) Goals may be documented in a n alternate section FOR RECORDS PERTAINING TO PATIENTS WHO ARE OR HAVE BEEN ENROLLED IN A CHEMICAL DEPENDENCY/SUBSTANCEABUSE PROGRAM, SOME INFORMATION MAY BE OMITTED. This clinical summary was aggregated from multiple sources. Caution should be exercised in using it in the provision of clinical care. This summary normalizes information from multiple sources, and as a consequence, information in this document may materially change the coding, format and clinical context of patient data. In addition, data may be omitted in some cases. CLINICAL DECISIONS SHOULD BE BASED ON THE PRIMARY CLINICAL RECORDS. [employer] provides no warranty or guarantee of the accuracy or completeness of information in this document.
--- NOTE | 2023-09-11 21:05 | XR_ITS ---
The [address] [address] Patient Name: LEENA TALBERT MRN: [id number] date: 1990 Sex: F Assigned Patient Location: ER Current Patient Location: ER Accession/Order Number: [id number] Exam Date: 09/11/2023 21:20 Report Date: 09/11/2023 21:57 At the request of: NISA LANCASTER Procedure: XR cervical spine 2-3V EXAM: XR cervical spine 2-3V HISTORY: atraumatic pain COMPARISON: None. TECHNIQUE: 3 views FINDINGS: Age-indeterminate straightening of the normal cervical lordosis. Vertebral body heights and alignments exhibit no fracture or listhesis. Intervertebral disc spaces and facet joints are normal. The dens and lateral masses of C1 are symmetric. No visualized radiodense foreign body. XR/XR cervical spine 2-3V IMPRESSION: Age-indeterminate straightening of the normal cervical lordosis which would account for patient's neck and shoulder pain Electronically authenticated by: JULISSA DANIELS Date: 09/11/2023 21:57
--- NOTE | 2023-09-11 21:08 | ED_ITS ---
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 She's had this for over a week and there was no injury. She had similar circumstances several months ago and at that time was told it was muscle pain. She did not have x-rays at that time. The pain is moderate and worse in certain positions. Related Data Home Medications Medication Instructions Recorded Confirmed cholecalciferol (vitamin D3) 25 25 mcg PO DAILY 05/13/23 08/10/23 mcg (1,000 unit) capsule cyclobenzaprine 10 mg tablet 10 mg PO BID 05/13/23 08/10/23 ferrous sulfate 325 mg (65 mg 325 mg PO DAILY 05/13/23 08/10/23 iron) tablet gabapentin 300 mg capsule 300 mg PO BID 05/13/23 08/10/23 ibuprofen 800 mg tablet 800 mg PO TID PRN pain 05/13/23 08/10/23 omega-3 fatty acids 1,000 mg 1,000 mg PO DAILY 05/13/23 08/10/23 capsule omega-3 fatty acids 500 mg capsule 1,500 mg PO DAILY 05/13/23 08/10/23 omeprazole 40 mg capsule,delayed 40 mg PO DAILY 05/13/23 08/10/23 release Previous Rx's Medication Instructions Recorded etodolac 400 mg tablet (Lodine) 400 mg PO Q8H PRN pain #20 tabs 09/11/23 methocarbamol 500 mg tablet 500 mg PO Q6H PRN pain #20 tabs 09/11/23 Allergies Allergy/AdvReac Type Severity Reaction Status Date / Time Sulfa (Sulfonamide Allergy Verified 08/10/23 11:16 Antibiotics) Review of Systems ROS Narrative A ten point review of systems is negative except as noted above. PFSH PFSH Medical History Low back pain ?M54.50 - Low back pain, unspecified (ICD-10) Heartburn ?R12 - Heartburn (ICD-10) Asthma ?J45.909 - Unspecified asthma, uncomplicated (ICD-10) Surgical History H/O removal of cyst ?Z98.890 - Other specified postprocedural states (ICD-10) History of appendectomy ?Z90.49 - Acquired absence of other specified parts of digestive tract (ICD- 10) Exam Narrative Exam Narrative: Nurses note and vital signs reviewed and patient is not hypoxic. General: The patient appears well and in no apparent distress. Patient is resting comfortably on cart. Skin: Warm, dry, no pallor noted. There is no rash noted. Head: Normocephalic, atraumatic Eye: Normal conjunctiva, no drainage Ears, Nose, Mouth, and Throat: oral mucosa is moist. Nares patent. Cardiovascular: Regular Rate and Rhythm Respiratory: Patient is in no distress, no accessory muscle use, lungs are clear to auscultation, no wheezing, rales or rhonchi Back: lumbar and thoracic spines are nontender. She has diffuse tenderness in the cervical area. Neck has good range of motion and there is no bruising or erythema. Shoulders and arms have full range of motion as well. 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 Psychiatric: Cooperative Constitutional Vital Signs, click to edit/add: Last Vital Signs Temp 98.3 F 09/11/23 20:51 Pulse 89 09/11/23 20:51 Resp 18 09/11/23 20:51 BP 141/94 H 09/11/23 20:51 Pulse Ox 98 09/11/23 20:51 O2 Del Method Room Air 09/11/23 20:51 Course Vital Signs Vital signs: Vital Signs Temperature 98.3 F 09/11/23 20:51 Pulse Rate 89 09/11/23 20:51 Respiratory Rate 18 09/11/23 20:51 Blood Pressure 141/94 H 09/11/23 20:51 Pulse Oximetry 98 09/11/23 20:51 Oxygen Delivery Method Room Air 09/11/23 20:51 Temperature 98.3 F 09/11/23 20:51 Pulse Rate 89 09/11/23 20:51 Respiratory Rate 18 09/11/23 20:51 Blood Pressure 141/94 H 09/11/23 20:51 Pulse Oximetry 98 09/11/23 20:51 Oxygen Delivery Method Room Air 09/11/23 20:51 MDM - Back Pain/Injury MDM Narrative Medical decision making narrative: x-ray showed no acute findings. She was given Toradol and Norflex and feels improved and is able to be discharged home. Treatment diagnosis and follow-up were discussed with the patient. Differential Diagnosis Differential diagnosis: Likely other (cervical muscle strain, cervical arthritis) Imaging Data cervical spine x-rays: Radiologist's impression: Procedure: XR cervical spine 2-3V EXAM: XR cervical spine 2-3V HISTORY: atraumatic pain COMPARISON: None. TECHNIQUE: 3 views FINDINGS: Age-indeterminate straightening of the normal cervical lordosis. Vertebral body heights and alignments exhibit no fracture or listhesis. Intervertebral disc spaces and facet joints are normal. The dens and lateral masses of C1 are symmetric. No visualized radiodense foreign body. IMPRESSION: Age-indeterminate straightening of the normal cervical lordosis which would account for patient's neck and shoulder pain Electronically authenticated by: JULISSA DANIELS Date: 09/11/2023 21:57 Discharge Plan Discharge Chief Complaint: Back Pain/Injury Clinical Impression: Cervical pain Patient Disposition: Home, Self-Care Time of Disposition Decision: 22:09 Condition: Good Mode of Transportation: Private Vehicle Prescriptions / Home Meds: New etodolac [Lodine] 400 mg tablet 400 mg PO Q8H PRN (Reason: pain) Qty: 20 0RF methocarbamol 500 mg tablet 500 mg PO Q6H PRN (Reason: pain) Qty: 20 0RF No Action omega-3 fatty acids 500 mg capsule 1,500 mg PO DAILY cyclobenzaprine 10 mg tablet 10 mg PO BID gabapentin 300 mg capsule 300 mg PO BID ibuprofen 800 mg tablet 800 mg PO TID PRN (Reason: pain) ferrous sulfate 325 mg (65 mg iron) tablet 325 mg PO DAILY omega-3 fatty acids 1,000 mg capsule 1,000 mg PO DAILY omeprazole 40 mg capsule,delayed release(DR/EC) 40 mg PO DAILY cholecalciferol (vitamin D3) 25 mcg (1,000 unit) capsule 25 mcg PO DAILY Instructions: Neck Pain (ED) Additional Instructions: Do not take cyclobenzaprine while on Robaxin Do not take ibuprofen while on the etodolac Stand Alone Forms: Portal Instructions Referrals: Physician,Non-Staff, MD [Primary Care Provider] - 1 week
[2023-09-11] MEDS: KETOROLAC TROMETHAMINE 60 MG/2 ML VIAL IM (21:16)
[2023-09-11] MEDS: ORPHENADRINE 60 MG/ 2 ML VIAL IM (21:16)
== END 2023-09-11 22:14 | disposition home or self-care (01) ==
PROVIDERS: Emergency Provider Emergency Medicine
DX: M54.2 Cervicalgia (principal); R12 Heartburn; J45.909 Unspecified asthma, uncomplicated; H91.90 Unspecified hearing loss, unspecified ear
CPT/HCPCS: 72040; 96372; 99284

== ENCOUNTER 2023-09-28 07:00 | Day surgery (SDC) | payer MEDICARE, MEDICAID, SELFPAY ==
--- OUTSIDE RECORDS SUMMARY | 2023-09-28 07:03 | XMS_ITS | CCD ---
Author Name Unknown Address Formerly [facility] [address] [place] [address] Organization [facility] Care Team Providers Care General Scrap Worker Name Role Phone DION JACINTO Unavailable Unavailable OPHELIA, DION M Unavailable Unavailable OPHELIA, DION Guadarrama Unavailable Unavailable OPHELIA, DION Guadarrama Unavailable Unavailable BENTLEY LUCERO Primary Care Physician Rangel Stanton Unavailable Connor Castellanos Attending Unavailable Devendra Miller Attending Unavailable Kristopher Clemons Attending Unavailable Devendra Miller Attending Unavailable Kristopher Clemons Attending Unavailable Connor Castellanos Attending Unavailable BENTLEY LUCERO Referring Unavailable BENTLEY LUCERO Attending Unavailable BENTLEY LUCERO Admitting Unavailable Connor Castellanos Attending Unavailable Nic ARMY OFFICER-Rosy Hu Primary Care Provider JODEE Lucero-Rosy Hu Attending Provider LAKSHMIPATHY ., NARENDRANATH Admitting Megha vailable LAKSHMIPATHY [...] Care Unavaila ble NEMESIO, ALEXANDRO Admitting Unavailable NEMSEIO, ALEXANDRO Attending Unavailable PARRISH ., ZOFIA GO Consulting Unavailani e NEMESIO, ALEXANDRO Consulting Unavailable Spasic, AR[employer] OFFICER-C Bentley Hu Attending Provider [facility], [facility] ider Spasic, Bentley E Primary Care Unavailable Spasic, Bentley E Attending Unavailable Spasic, Bentley E Admitting Unavailable Spasic, Bentley E Attending Unavailable Spasic, Bentley E Admitting Unavailable Spasic, Ebntley E Primary Care Unavailable Spasic, Bentley E Attending Unavailable Spasic, Bentley E Admitting Unavailable Spasic, Bentley E Attending Unavailable Spasic, Bentley E Admitting Unavailable [facility] Primary Care U navailable Gilindaitis , George Lester Attending Unavailable Giedraitis , Andrius Vcarolyn Attending Unavailable Giedraitis , Andrius Vcarolyn Attending Unavailable Allergies Allergy Classification Reported Allergen(s) Allergy Type Date of Onset Reaction(s) Facility (6 sources) Sulfonamides (Antibiotic); Translations: [sulfa drugs] Drug allergy Cutaneous eruption (morphologic abnormality) [facility] (1 source) Sulfacetamide / Sulfur Drug Allergy Unknown [facility] Other (5 sources) Sulfonamides (Antibiotic); Translations: [Sulfa (Sulfonamide Antibiotics)] Allergy to substance 05-15-20 [facility] (1 source) Sulfonamides (Antibiotic) Drug allergy (disorder) 04-11-20 17 [facility] Repository Medications Current Medications Medication Drug Class(es) [...] Daily, # 3 tab(s), Refills(s) 0, Pharmacy: [facility], 165, cm, 06/19/20 21:06:00 EDT, Height/Length Dosing, 90.5, kg, 06/19/20 21:06:00 EDT, Weight Dosing Start Date: 06/20/20 Status: Ordered cetirizine hydrochloride 10 mg oral tablet (5 sources) Histamine-1 Receptor Antagonist Start: 06-20-2020 take 1 tablet by mouth once daily cetirizine 10 mg Tab 10 mg = 1 tab(s), Oral, Daily, # 30 tab(s), Refills(s) 0, Pharmacy: [facility] 1986, 165, cm, 06/19/20 21:06:00 [...] pain, # 15 tab(s), Refills(s) 0, Pharmacy: [facility], 165, cm, 05/28/22 10:56:00 [...] BID, 16 gram, Refill(s) 0, each nostril, [facility], 165, cm, 06/19/20 21:06:00 EDT, Height/Length Dosing, 90.5, kg, 06/19/20 21:06:00 EDT, Weight Dosing Start Date: 06/20/20 Status: Ordered fluticasone propionate 0.05 mg/actuat metered dose nasal spray (3 sources) Corticosteroid Start: 06-20-2020 take 1 spray(s) nasal route twice daily Flonase 0.05 mg/inh nasal spray 1 spray(s), Nasal, BID, 16 gram, Refill(s) 0, each nostril, [facility], 165, cm, 06/19/20 21:06:00 [...] for 10 day(s), 20 tab(s), Refill(s) 0, [facility], 165, cm, 06/18/22 12:19:00 EDT, Height/Length Dosing, 86, kg, 06/18/22 12:19:00 EDT, Weight Dosing Start Date: 06/18/22 Stop Date: 06/28/22 Status: Ordered methylPREDNISolone 4 mg oral tablet (1 source) Corticosteroid Start: 05-28-20 End: 06-03-20 Medrol 4 mg Tab = 1 packet(s), Oral, As Directed, as directed on package labeling, X 6 day(s), # 21 tab(s), Refills(s) 0, Pharmacy: [facility], 165, cm, 05/28/22 10:56:00 [...] pain, # 20 tab(s), Refills(s) 0, Pharmacy: [facility], 165, cm, 05/28/22 10:56:00 EDT, Height/Length Dosing, 86, kg, 05/28/22 10:56:00 EDT, Weight Dosing Start Date: 05/28/22 Status: Ordered [place] 3 (1 source) [place] 3 Active [place] 3-Hav-Nkb-Fish Oil (Fish Oil) 1,000 mg (120 mg-180 mg) Capsule (4 sources) Start: 03-12-20 take 1 capsule by mouth once daily [place] 9-Xmf-Ziu-Fish Oil (Fish Oil) 1,000 mg (120 mg-180 mg) Capsule Active 1 CAP PO Daily March 12, 2022 12:00am Start: 03-12-2022 take 1 capsule by [facility] once daily [place] 5-Dfd-Csq-Fish Oil (Fish Oil) 1,000 mg (120 mg-180 [...] Nausea/Vomiting, # 12 tab(s), Refills(s) 0, Pharmacy: [facility], 165, cm, 03/05/21 17:57:00 EDT, Height/Length Dosing, 91, kg, 03/05/21 17:57:00 EDT, Weight Dosing Start Date: 03/05/21 Status: Ordered pantoprazole 40 mg delayed release oral tablet (3 sources) Proton Pump Inhibitor Start: 04-04-2021 take 1 tablet by mouth once daily Protonix 40 mg Tab-EC 40 mg = 1 tab(s), Oral, Daily, # 30 tab(s), Refills(s) 0, Pharmacy: [facility], 165, cm, 04/04/21 21:22:00 [...] Daily, # 30 tab(s), Refills(s) 0, Pharmacy: [facility], 165, cm, 04/04/21 21:22:00 [...] Daily, # 3 tab(s), Refills(s) 0, Pharmacy: [facility], 165, cm, 06/19/20 21:06:00 [...] monitoron 0 05-25-2023 [place] cardiac event monitor [place] [address] Cardiac Event Monitor Signed Patient: Leena Interiano MR#: [id number] : 1990 Acct:[id number] Age/Sex: 33 / F ADM Date: 04/22/23 Loc: Room: Type: [facility] Attending Dr: Bentley TIMMONS Copies to: Darrin Jay MD, [facility] SHANELLE Galdamez Ordering Provider: SHANELLE Galdamez Date [...] 05/25/23 1521 Dictated By: Darrin Jay MD, [facility] 05/25/23 1047 Signed By: 05/26/23 1402 [facility] XR cervical spine LAT/FLX/EX Ton 04-22-2023 XR cervical spine LAT/FLX/EXT [place] [address] XRay Report Signed Patient: Leena Interiano MR#: [id number] : 1990 Acct:[id number] Age/Sex: 33 / F ADM Date: 04/22/23 Loc: Room: Type: [facility] Attending Dr: Bentley TIMMONS Copies to: [...] Gentry Acevedo M.D.04/22/2023 1:38 PM Dictation Location: [place] [address] Transcribed By: [facility] 04/22/23 1338 Dictated By: Gentry Acevedo DO 04/22/23 1337 Signed By: 04/22/23 1338 [facility] A1C with Estimated Average G edn 04-16-2023 Glucose [Mass/Vol] 111 mg/dL [facility] Comment on above: Result Comment: PERF ORMED BY: [facility] [address] [place] [address] PATHOLOGIST RIDDLER OPERATOR PRICE ZUNIGA M.D. Performed By: #### T SH3 wRFLX, A1C WTH eA, CBC, CALLUM, CMP, FE and TIBC, B12, [id number] ####[facility] [address]#### INSULIN ####[facility] , HbA1c (Bld) [Mass fraction] 5.5 % Normal 4.3-5.6 [facility] Comment on above: Result Comment: Incr eased risk for diabetes: 5.7 - 6.4 diabetes: >6.4 glycemic control for adults with diabetes: <7.0 Performed By: #### T SH3 wRFLX, A1C WTH eA, CBC, CALLUM, CMP, FE and TIBC, B12, [id number] ####[facility]#### INSULIN ####[facility] , Alanine aminotransferase [En zymatic activity/volume] in Serum or PlasmaOrdered By: Bentley Lucero on 04-16-2023 ALT [Catalytic activity/Vol] 16 U/L 7-52 [facility] Albumin [Mass/volume] in Ser um or Plasma by Bromocresol green (BCG) dye binding methoOrdered By: Bentley Lucero on 04-16-2023 Albumin BCG dye [Mass/Vol] 4.3 g/dL 3.5-5.7 [facility] Alkaline phosphatase [Enzyma tic activity/volume] in Serum or PlasmaOrdered By: Bentley Lucero on 04-16-2023 ALP [Catalytic activity/Vol] 52 U/L 34-104 [facility] Aspartate aminotransferase [ Enzymatic activity/volume] in Serum or PlasmaOrdered By: Bentley Lucero on 04-16-2023 AST [Catalytic activity/Vol] 16 U/L 13-39 [facility] Basophils Auto (Bld) [#/Vol] Ordered By: Bentley Lucero on 04-16-2023 Basophils (Bld) [#/Vol] 0.0 10*3/uL 0.0-0.2 [facility] Basophils/100 WBC Auto (Bld) Ordered By: Bentley Lucero on 04-16-2023 Basophils/100 WBC (Bld) 0.8 % . [facility] Bilirubin.total [Mass/volume ] in Serum or PlasmaOrdered By: Bentley Spasic on 04-16-2023 Bilirubin [Mass/Vol] 0.4 mg/dL 0.3-1.0 [facility] Calcium [Mass/volume] in Ser um or PlasmaOrdered By: Bentley Tristansic on 04-16-2023 Calcium [Mass/Vol] 9.0 mg/dL 8.6-10.3 [facility] Carbon dioxide, total [Moles /volume] in Serum or PlasmaOrdered By: [facility]23 CO2 [Moles/Vol] 24.8 mmol/L 21.0-31.0 [facility] Chloride [Moles/volume] in S hugo or PlasmaOrdered By: Bentley Lucero on 04-16-2023 Chloride [Moles/Vol] 109 mmol/L 98-107 [facility] Complete Blood Count Auto Di ffon 04-16-2023 Basophils (Bld) [#/Vol] 0.0 10*3/uL Normal 0.0-0.2 [facility] Comment on above: Result Comment: PERF ORMED BY: [place] [address] PATHOLOGIST RIDDLER OPERATOR PRICE ZUNIGA M.D. Performed By: #### T SH3 wRFLX, A1C WTH eA, CBC, CALLUM, CMP, FE and TIBC, B12, [id number] #### [place] [address] [place] #### INSULIN #### [facility] , Basophils/100 WBC (Bld) 0.8 % Normal . [facility] Comment on above: Performed By: #### T SH3 wRFLX, A1C WTH eA, CBC, CLALUM, CMP, FE and TIBC, B12, [id number] #### [address] #### INSULIN #### [facility] , Eosinophils (Bld) [#/Vol] 0.1 10*3/uL Normal 0.0-0.45 [facility] Comment on above: Performed By: #### T SH3 wRFLX, A1C WTH eA, CBC, CALLUM, CMP, FE and TIBC, B12, [id number] #### [address] #### INSULIN #### [facility] , Eosinophils/100 WBC (Bld) 3.0 % Normal . [facility] Comment on above: Performed By: #### T SH3 wRFLX, A1C WTH eA, CBC, CALLUM, CMP, FE and TIBC, B12, [id number] #### [address] #### INSULIN #### [facility] , Erythrocyte distribution width (RBC) [Ratio] 13.3 % Normal 11.9-15.3 [facility] Comment on above: Performed By: #### T SH3 wRFLX, A1C WTH eA, CBC, CALLUM, CMP, FE and TIBC, B12, [id number] #### [address] #### INSULIN #### [facility] , Hematocrit (Bld) [Volume fraction] 36.5 % Normal 34.0-46.4 [facility] Comment on above: Performed By: #### T SH3 wRFLX, A1C WTH eA, CBC, CALLUM, CMP, FE and TIBC, B12, [id number] #### [facility] [address] [place] [address] [place] #### INSULIN #### [facility] , Hemoglobin (Bld) [Mass/Vol] 12.3 g/dL Normal 11.8-15.4 [facility] Comment on above: Performed By: #### T SH3 wRFLX, A1C WTH eA, CBC, CALLUM, CMP, FE and TIBC, B12, [id number] #### [facility] [address] [place] [address] [place] #### INSULIN #### [facility] , Lymphocytes (Bld) [#/Vol] 2.2 10*3/uL Normal 1.00-4.8 [facility] Comment on above: Performed By: #### T SH3 wRFLX, A1C WTH eA, CBC, CALLUM, CMP, FE and TIBC, B12, [id number] #### [address] #### INSULIN #### [facility] , Lymphocytes/100 WBC (Bld) 43.7 % Normal . [facility] Comment on above: Performed By: #### T SH3 wRFLX, A1C WTH eA, CBC, CALLUM, CMP, FE and TIBC, B12, [id number] #### [address] #### INSULIN #### [facility] , MCH (RBC) [Entitic mass] 27.0 pg Normal 24.7-34.3 [facility] Comment on above: Performed By: #### T SH3 wRFLX, A1C WTH eA, CBC, CALLUM, CMP, FE and TIBC, B12, [id number] #### [facility] [address] [place] [address] [place] #### INSULIN #### [facility] , MCV (RBC) [Entitic vol] 79.9 fL Low 80-100 [facility] Comment on above: Performed By: #### T SH3 wRFLX, A1C WTH eA, CBC, CALLUM, CMP, FE and TIBC, B12, [id number] #### [facility] [address] [place] [address] [place] #### INSULIN #### [facility] , Mean Corpuscular HGB Conc 33.8 g/dL Normal 32.0-35.0 [facility] Comment on above: Performed By: #### T SH3 wRFLX, A1C WTH eA, CBC, CALLUM, CMP, FE and TIBC, B12, [id number] #### [facility] [address] [place] [address] #### INSULIN #### [facility] , Monocytes (Bld) [#/Vol] 0.3 10*3/uL Normal 0.0-0.8 [facility] Comment on above: Performed By: #### T SH3 wRFLX, A1C WTH eA, CBC, CALLUM, CMP, FE and TIBC, B12, [id number] #### [facility] [address] [place] [address] #### INSULIN #### [facility] , Monocytes/100 WBC (Bld) 5.2 % Normal . [facility] Comment on above: Performed By: #### T SH3 wRFLX, A1C WTH eA, CBC, CALLUM, CMP, FE and TIBC, B12, [id number] #### [facility] [address] [place] [address] #### INSULIN #### [facility] , Neutrophils (Bld) [#/Vol] 2.3 10*3/uL Normal 1.8-7.7 [facility] Comment on above: Performed By: #### T SH3 wRFLX, A1C WTH eA, CBC, CALLUM, CMP, FE and TIBC, B12, [id number] #### [facility] [address] [place] [address] [place] #### INSULIN #### [facility] , Neutrophils/100 WBC (Bld) 47.3 % Normal . [facility] Comment on above: Performed By: #### T SH3 wRFLX, A1C WTH eA, CBC, CALLUM, CMP, FE and TIBC, B12, [id number] #### [facility] [address] [place] [address] [place] #### INSULIN #### [facility] , NRBC% 0.2 /100{WBC} Normal 0-0.5 [facility] Comment on above: Performed By: #### T SH3 wRFLX, A1C WTH eA, CBC, CALLUM, CMP, FE and TIBC, B12, [id number] #### [facility] [address] [place] [address] #### INSULIN #### [facility] , Platelet mean volume (Bld) [Entitic vol] 9.2 fL Normal 6.3-10.7 [facility] Comment on above: Performed By: #### T SH3 wRFLX, A1C WTH eA, CBC, CALLUM, CMP, FE and TIBC, B12, [id number] #### [facility] [address] [place] [address] #### INSULIN #### [facility] , Platelets (Bld) [#/Vol] 260 10*3/uL Normal 150-450 [facility] Comment on above: Performed By: #### T SH3 wRFLX, A1C WTH eA, CBC, CALLUM, CMP, FE and TIBC, B12, [id number] #### [facility] [address] [place] [address] #### INSULIN #### [facility] , RBC (Bld) [#/Vol] 4.57 10*6/uL Normal 3.60-5.00 [facility] Comment on above: Performed By: #### T SH3 wRFLX, A1C WTH eA, CBC, CALLUM, CMP, FE and TIBC, B12, [id number] #### [facility] [address] [place] [address] [place] #### INSULIN #### [facility] , WBC (Bld) [#/Vol] 4.9 10*3/uL Normal 3.8-11.6 [facility] Comment on above: Performed By: #### T SH3 wRFLX, A1C WTH eA, CBC, CALLUM, CMP, FE and TIBC, B12, [id number] #### [facility] [address] [place] [address] [place] #### INSULIN #### [facility] , Comprehensive Metabolic Pane adam 04-16-2023 Albumin [Mass/Vol] 4.3 g/dL Normal 3.5-5.7 [facility] Comment on above: Performed By: #### T SH3 wRFLX, A1C WTH eA, CBC, CALLUM, CMP, FE and TIBC, B12, [id number] #### [facility] [address] [place] [address] #### INSULIN #### [facility] , Albumin/Globulin [Mass ratio] 1.7 {ratio} Normal [facility] Comment on above: Performed By: #### T SH3 wRFLX, A1C WTH eA, CBC, CALLUM, CMP, FE and TIBC, B12, [id number] #### [facility] [address] [place] [address] [place] #### INSULIN #### [facility] , ALP [Catalytic activity/Vol] 52 U/L Normal 34-104 [facility] Comment on above: Performed By: #### T SH3 wRFLX, A1C WTH eA, CBC, CALLUM, CMP, FE and TIBC, B12, [id number] #### [facility] [address] [place] [address] #### INSULIN #### [facility] , ALT [Catalytic activity/Vol] 16 U/L Normal 7-52 [facility] Comment on above: Performed By: #### T SH3 wRFLX, A1C WTH eA, CBC, CALLUM, CMP, FE and TIBC, B12, [id number] #### [facility] [address] [place] [address] [place] #### INSULIN #### [facility] , Anion gap [Moles/Vol] 10.1 mmol/L Normal 6.0-15.0 [facility] Comment on above: Performed By: #### T SH3 wRFLX, A1C WTH eA, CBC, CALLUM, CMP, FE and TIBC, B12, [id number] #### [facility] [address] [place] [address] [place] #### INSULIN #### [facility] , AST [Catalytic activity/Vol] 16 U/L Normal 13-39 [facility] Comment on above: Performed By: #### T SH3 wRFLX, A1C WTH eA, CBC, CALLUM, CMP, FE and TIBC, B12, [id number] #### [facility] [address] [place] [address] #### INSULIN #### [facility] , Bilirubin [Mass/Vol] 0.4 mg/dL Normal 0.3-1.0 [facility] Comment on above: Performed By: #### T SH3 wRFLX, A1C WTH eA, CBC, CALLUM, CMP, FE and TIBC, B12, [id number] #### [facility] [address] [place] [address] [place] #### INSULIN #### [facility] , Calcium [Mass/Vol] 9.0 mg/dL Normal 8.6-10.3 [facility] Comment on above: Performed By: #### T SH3 wRFLX, A1C WTH eA, CBC, CALLUM, CMP, FE and TIBC, B12, [id number] #### [facility] [address] [place] [address] [place] #### INSULIN #### [facility] , Chloride [Moles/Vol] 109 mmol/L High 98-107 [facility] Comment on above: Performed By: #### T SH3 wRFLX, A1C WTH eA, CBC, CALLUM, CMP, FE and TIBC, B12, [id number] #### [facility] [address] [place] [address] [place] #### INSULIN #### [facility] , CO2 [Moles/Vol] 24.8 mmol/L Normal 21.0-31.0 [facility] Comment on above: Performed By: #### T SH3 wRFLX, A1C WTH eA, CBC, CALLUM, CMP, FE and TIBC, B12, [id number] #### [facility] [address] [place] [address] [place] #### INSULIN #### [facility] , Creatinine [Mass/Vol] 0.84 mg/dL Normal 0.60-1.20 [facility] Comment on above: Performed By: #### T SH3 wRFLX, A1C WTH eA, CBC, CALLUM, CMP, FE and TIBC, B12, [id number] #### [facility] [address] [place] [address] #### INSULIN #### [facility] , GFR/1.73 sq M.predicted MDRD (S/P/Bld) [Vol rate/Area] mL/min/{1.73_m2} [facility] Comment on above: Performed By: #### T SH3 wRFLX, A1C WTH eA, CBC, CALLUM, CMP, FE and TIBC, B12, [id number] #### [address] #### INSULIN #### [facility] , Globulin (S) [Mass/Vol] 2.6 g/dL Normal [facility] Comment on above: Performed By: #### T SH3 wRFLX, A1C WTH eA, CBC, CALLUM, CMP, FE and TIBC, B12, [id number] #### [facility] [address] [place] [address] [place] #### INSULIN #### [facility] , Glucose [Mass/Vol] 116 mg/dL High 70-100 [facility] Comment on above: Result Comment: [place] Glucose Reference Range is dependent on time and content of last meal. Glucose of more than 200 mg/dL in a nonstressed, ambulatory subject supports the diagnosis of Diabetes Mellitus. ADA recommended reference range Performed By: #### T SH3 wRFLX, A1C WTH eA, CBC, CALLUM, CMP, FE and TIBC, B12, [id number] #### [facility] [address] [place] [address] [place] #### INSULIN #### [facility] , Potassium [Moles/Vol] 3.9 mmol/L Normal 3.5-5.1 [facility] Comment on above: Performed By: #### T SH3 wRFLX, A1C WTH eA, CBC, CALLUM, CMP, FE and TIBC, B12, [id number] #### [address] #### INSULIN #### [facility] , Protein [Mass/Vol] 6.9 g/dL Normal 6.4-8.9 [facility] Comment on above: Performed By: #### T SH3 wRFLX, A1C WTH eA, CBC, CALLUM, CMP, FE and TIBC, B12, [id number] #### [facility] [address] [place] [address] [place] #### INSULIN #### [facility] , Sodium [Moles/Vol] 140 mmol/L Normal 136-145 [facility] Comment on above: Performed By: #### T SH3 wRFLX, A1C WTH eA, CBC, CALLUM, CMP, FE and TIBC, B12, [id number] #### [place] [address] [place] #### INSULIN #### [facility] , Urea nitrogen [Mass/Vol] 14 mg/dL Normal 7-25 [facility] Comment on above: Performed By: #### T SH3 wRFLX, A1C WTH eA, CBC, CALLUM, CMP, FE and TIBC, B12, [id number] #### [facility] [address] [place] [address] [place] #### INSULIN #### [facility] , Creatinine [Mass/volume] in Serum or PlasmaOrdered By: Bentley Lucero on 04-16-2023 Creatinine [Mass/Vol] 0.84 mg/dL 0.60-1.20 [facility] Eosinophils Auto (Bld) [#/Vo l]Ordered By: Bentley Lucero on 04-16-2023 Eosinophils (Bld) [#/Vol] 0.1 10*3/uL 0.0-0.45 [facility] Eosinophils/100 WBC Auto (Bl d)Ordered By: Bentley Lucero on 04-16-2023 Eosinophils/100 WBC (Bld) 3.0 % . [facility] Erythrocyte distribution wid th Auto (RBC) [Ratio]Ordered By: Bentley Lucero on 04-16-2023 Erythrocyte distribution width (RBC) [Ratio] 13.3 % 11.9-15.3 [facility] Ferritinon 04-16-2023 Ferritin [Mass/Vol] 12.7 ng/mL Normal 11.0-306.8 [facility] Comment on above: Performed By: #### T SH3 wRFLX, A1C WTH eA, CBC, CALLUM, CMP, FE and TIBC, B12, [id number] #### [facility] [address] #### INSULIN #### [facility] , Ferritin [Mass/volume] in Se rum or PlasmaOrdered By: Bentley Lucero on 04-16-2023 Ferritin [Mass/Vol] 12.7 ng/mL 11.0-306.8 [facility] Globulin Calc (S) [Mass/Vol] Ordered By: Bentley Lucero on 04-16-2023 Globulin (S) [Mass/Vol] 2.6 g/dL [facility] Glucose [Mass/volume] in Ser um or PlasmaOrdered By: Bentley Lucero on 04-16-2023 Glucose [Mass/Vol] 116 mg/dL 70-100 [facility] Comment on above: ADA recommended refe rence rangeRandom Glucose Reference Range is dependent on time and content of last meal. Glucose of more than 200 mg/dL in a nonstressed, ambulatory subject supports the diagnosis of Diabetes Mellitus. Glucose mean value [Mass/vol ume] in Blood Estimated from glycated hemoglobinOrdered By: Bentley Lucero on 04-16-2023 Average glucose Estimated from glycated hemoglobin (Bld) [Mass/Vol] 111 mg/dL [facility] Hematocrit Auto (Bld) [Volum e fraction]Ordered By: Bentley Lucero on 04-16-2023 Hematocrit (Bld) [Volume fraction] 36.5 % 34.0-46.4 [facility] Hemoglobin A1c percentageOrd ered By: Bentley Lucero on 04-16-2023 HbA1c (Bld) [Mass fraction] 5.5 % 4.3-5.6 [facility] Comment on above: Increased risk for d iabetes: 5.7 - 6.4diabetes: >6.4glycemic control for adults with diabetes: <7.0 Hemoglobin [Mass/volume] in BloodOrdered By: Bentley Lucero on 04-16-2023 Hemoglobin (Bld) [Mass/Vol] 12.3 g/dL 11.8-15.4 [facility] Insulinon 04-16-2023 Insulin 44.2 u[iU]/mL High 2.6-24.9 [facility] Comment on above: Result Comment: Perf ormed at: CB - [facility] [place] [id number] Digital Specialist: Arturo Souza PhD, Phone: [phone] PERFORMED BY: [facility] [address] [place] [address] PATHOLOGIST RIDDLER OPERATOR PRICE ZUNIGA M.D. Performed By: #### T SH3 wRFLX, A1C WTH eA, CBC, CALLUM, CMP, FE and TIBC, B12, [id number] ####[facility] [address]#### INSULIN ####[facility] , Iron [Mass/volume] in Serum or PlasmaOrdered By: Bentley Lucero on 04-16-2023 Iron [Mass/Vol] 55 ug/dL 50-212 [facility] Iron and TIBC Profileon 08 % Iron Saturation 16.0 % Low 20-50 [facility] Comment on above: Performed By: #### T SH3 wRFLX, A1C WTH eA, CBC, CALLUM, CMP, FE and TIBC, B12, [id number] #### [facility] [address] [place] [address] [place] #### INSULIN #### [facility] , Iron [Mass/Vol] 55 ug/dL Normal 50-212 [facility] Comment on above: Performed By: #### T SH3 wRFLX, A1C WTH eA, CBC, CALLUM, CMP, FE and TIBC, B12, [id number] #### [facility] [address] [place] [address] [place] #### INSULIN #### [facility] , Total Iron Binding Capacity 344 ug/dL Normal 255-450 [facility] Comment on above: Performed By: #### T SH3 wRFLX, A1C WTH eA, CBC, CALLUM, CMP, FE and TIBC, B12, [id number] #### [facility] [address] [place] [address] [place] #### INSULIN #### [facility] , Transferrin [Mass/Vol] 246 mg/dL Normal 203-362 [facility] Comment on above: Performed By: #### T SH3 wRFLX, A1C WTH eA, CBC, CALLUM, CMP, FE and TIBC, B12, [id number] #### [facility] [address] [place] [address] [place] #### INSULIN #### [facility] , Iron binding capacity [Mass/ volume] in Serum or PlasmaOrdered By: Bentley Lucero on 04-16-2023 Iron binding capacity [Mass/Vol] 344 ug/dL 255-450 [facility] Iron saturation [Mass Fracti on] in Serum or PlasmaOrdered By: Bentley Lucero on 04-16-2023 Iron saturation [Mass fraction] 16.0 % 20-50 [facility] Leukocytes [#/volume] correc flavio for nucleated erythrocytes in Blood by Automated counOrdered By: Bentley Lucero on 04-16-2023 WBC corrected for nucl RBC Auto (Bld) [#/Vol] 4.9 10*3/uL 3.8-11.6 [facility] Lymphocytes Auto (Bld) [#/Vo l]Ordered By: Bentley Lucero on 04-16-2023 Lymphocytes (Bld) [#/Vol] 2.2 10*3/uL 1.00-4.8 [facility] Lymphocytes/100 WBC Auto (Bl d)Ordered By: Bentley Lucero on 04-16-2023 Lymphocytes/100 WBC (Bld) 43.7 % . [facility] MCH Auto (RBC) [Entitic mass ]Ordered By: Bentley Lucero on 04-16-2023 MCH (RBC) [Entitic mass] 27.0 pg 24.7-34.3 [facility] MCHC Auto (RBC) [Mass/Vol]Or dered By: Bentley Tristansirosy on 04-16-2023 MCHC (RBC) [Mass/Vol] 33.8 g/dL 32.0-35.0 [facility] MCV Auto (RBC) [Entitic vol] Ordered By: Bentley Lucero on 04-16-2023 MCV (RBC) [Entitic vol] 79.9 fL 80-100 [facility] Monocytes Auto (Bld) [#/Vol] Ordered By: Bentely Englishc on 04-16-2023 Monocytes (Bld) [#/Vol] 0.3 10*3/uL 0.0-0.8 [facility] Monocytes/100 WBC Auto (Bld) Ordered By: Bentley Lucero on 04-16-2023 Monocytes/100 WBC (Bld) 5.2 % . [facility] Neutrophils Auto (Bld) [#/Vo l]Ordered By: Bentley Englishc on 04-16-2023 Neutrophils (Bld) [#/Vol] 2.3 10*3/uL 1.8-7.7 [facility] Neutrophils/100 WBC Auto (Bl d)Ordered By: Bentley Tristansic on 04-16-2023 Neutrophils/100 WBC (Bld) 47.3 % . [facility] No Panel InformationOrdered By: Bentley Lucero on 04-16-2023 Estimated GFR (CKD-EPI) > 60.0 mL/Min [facility] Creatinine Clearance (Chem N/A [facility] Nucleated erythrocytes [Pres ence] in Blood by Automated countOrdered By: Bentley Lucero on 04-16-2023 Nucleated RBC Auto Ql (Bld) 0.2 /100{WBC} 0-0.5 [facility] Platelet mean volume Auto (B ld) [Entitic vol]Ordered By: Bentley Lucero on 04-16-2023 Platelet mean volume (Bld) [Entitic vol] 9.2 fL 6.3-10.7 [facility] Platelets Auto (Bld) [#/Vol] Ordered By: Bentley Lucero on 04-16-2023 Platelets (Bld) [#/Vol] 260 10*3/uL 150-450 [facility] Potassium [Moles/volume] in Serum or PlasmaOrdered By: Bentley Lucero on 04-16-2023 Potassium [Moles/Vol] 3.9 mmol/L 3.5-5.1 [facility] Protein [Mass/volume] in Ser um or PlasmaOrdered By: Bentley Lucero on 04-16-2023 Protein [Mass/Vol] 6.9 g/dL 6.4-8.9 [facility] RBC Auto (Bld) [#/Vol]Ordere d By: Bentley Lucero on 04-16-2023 RBC (Bld) [#/Vol] 4.57 10*6/uL 3.60-5.00 [facility] Serum or plasma albumin/glob ulin mass ratioOrdered By: Bentley Lucero on 04-16-2023 Albumin/Globulin [Mass ratio] 1.7 {ratio} [facility] Serum or plasma anion gap de terminationOrdered By: Bentley Lucero on 04-16-2023 Anion gap [Moles/Vol] 10.1 mmol/L 6.0-15.0 [facility] Serum or plasma insulin jose urement (units/volume)Ordered By: Bentley Lucero on 04-16-2023 Insulin Qn 44.2 u[iU]/mL 2.6-24.9 [facility] Comment on above: Performed at: [facility] [address] [id number] Director: Arturo Souza PhD, Phone: [phone] Sodium [Moles/volume] in Ser um or PlasmaOrdered By: Bentley Lucero on 04-16-2023 Sodium [Moles/Vol] 140 mmol/L 136-145 [facility] Thyroid Stim Hormone w/Rflxo n 04-16-2023 Thyroid Stim Hormone w/Rflx 1.14 u[iU]/mL Normal 0.45-5.33 [facility] Comment on above: Performed By: #### T SH3 wRFLX, A1C WTH eA, CBC, CALLUM, CMP, FE and TIBC, B12, [id number] #### [facility] [address] #### INSULIN #### [facility] , Thyrotropin [Units/volume] i n Serum or PlasmaOrdered By: Bentley Lucero on 04-16-2023 TSH Qn 1.14 m[IU]/L 0.45-5.33 [facility] Transferrin [Mass/volume] in Serum or PlasmaOrdered By: Bentley Lucero on 04-16-2023 Transferrin [Mass/Vol] 246 mg/dL 203-362 [facility] Urea nitrogen [Mass/volume] in Serum or PlasmaOrdered By: Bentley Lucero on 04-16-2023 Urea nitrogen [Mass/Vol] 14 mg/dL 7-25 [facility] Vitamin B12on 04-16-2023 Cobalamin (Vitamin B12) [Mass/Vol] 195 pg/mL Normal 180-914 [facility] Comment on above: Performed By: #### T SH3 wRFLX, A1C WTH eA, CBC, CALLUM, CMP, FE and TIBC, B12, [id number] #### [facility] [address] [place] [address] [place] #### INSULIN #### [facility] , Vitamin B12 ser/plasOrdered By: Bentley Lucero on 04-16-2023 Cobalamin (Vitamin B12) [Mass/Vol] 195 pg/mL 180-914 [facility] Vitamin D 25 Hydroxy Totalon 04-16-2023 Vitamin D 25 Hydroxy Total 21.1 ng/mL Low 30-100 [facility] Comment on above: Result Comment: BAHMAN MIN D STATUS 25(OH)VITAMIN D RANGE (ng/mL) Deficient <20 Insufficient 20 to <30 Sufficient 30 to 100 Reference: Braina Billy, Brenton VARGAS, et al. Evaluation,treatment, and prevention of vitamin D deficiency; an Endocrine Society clinical practice guideline. JCEM. 2010; 96(7):1911-30. PERFORMED BY: [facility] [address] [place] [address] PATHOLOGIST RIDDLER OPERATOR PRICE ZUNIGA M.D. Performed By: #### T SH3 wRFLX, A1C WTH eA, CBC, CALLUM, CMP, FE and TIBC, B12, [id number] ####[facility] [id number]#### INSULIN ####[facility] , Vitamin D+Metabolites [Mass/ volume] in Serum or PlasmaOrdered By: Bentley Lucero on 04-16-2023 Vitamin D+Metabolites [Mass/Vol] 21.1 ng/mL 30-100 [facility] Comment on above: VITAMIN D STATUS 25( [place])VITAMIN D RANGE (ng/mL) Deficient <20 Insufficient 20 to <30Sufficient 30 to 100Reference: Briana Billy, Brenton VARGAS, et al. Evaluation,treatment, and prevention of vitamin D deficiency; an Endocrine Society clinical practice guideline. JCEM. 2010; 96(7):1911-30. WBC Auto (Bld) [#/Vol]Ordere d By: Bentley Lucero on 04-16-2023 WBC (Bld) [#/Vol] 4.9 10*3/uL 3.8-11.6 [facility] ER URINE PROFILEon 3 Bilirubin Ql (U) Negative Normal NEGATIVE [facility] Comment on above: Performed By: #### P REGU, ERUR, UMICRO #### [facility] [address] [address] [address] Samm Hurtado Clarity (U) CLEAR Normal CLEAR [facility] Comment on above: Performed By: #### P REGU, ERUR, UMICRO #### [facility] [address] [address] [address] Samm Hurtado Color (U) YELLOW Normal YELLOW [facility] Comment on above: Performed By: #### P REGU, ERUR, UMICRO #### [facility] [address] [address] [address] Samm OVALLE A micrscopic examination will be performed if indicated. Normal [facility] Comment on above: Performed By: #### P REGU, ERUR, UMICRO #### [facility] [address] [place] [address] Dr. Samm Hurtado Glucose Ql (U) Negative Normal NEGATIVE [facility] Comment on above: Performed By: #### P REGU, ERUR, UMICRO #### [facility] [address] [place] [address] Dr. Samm Hurtado Hemoglobin Ql (U) LARGE Abnormal NEGATIVE [facility] Comment on above: Performed By: #### P REGU, ERUR, UMICRO #### [facility] [address] [place] [address] Dr. Samm Hurtado Ketones Ql (U) Negative Normal NEGATIVE [facility] Comment on above: Performed By: #### P REGU, ERUR, UMICRO #### [facility] [address] [address] [address] Samm Hurtado LEUKOCYTES Negative Normal NEGATIVE [facility] Comment on above: Performed By: #### P REGU, ERUR, UMICRO #### [facility] [address] [place] [address] Dr. Samm Hurtado Nitrite Ql (U) Negative Normal NEGATIVE [facility] Comment on above: Performed By: #### P REGU, ERUR, UMICRO #### [facility] [address] [address] [address] Samm Hurtado pH (U) 5.5 [pH] Normal 5-9 [facility] Comment on above: Performed By: #### P MARTÍN LOCKE UMICRO #### [facility] [address] [place] [address] Dr. Samm Hurtado SPEC GRAVITY >=1.030 Abnormal 1.005-<=1.02 5 [facility] Comment on above: Performed By: #### P REGRE StokesR UMICRO #### [facility] [address] [address] [address] Samm Hurtado UA PROTEIN Negative Normal NEGATIVE/ TRACE [facility] Comment on above: Performed By: #### P MARTÍN LOCKE UMICRO #### [facility] [address] [place] [address] Dr. Samm Hurtado UR MICRO IND INDICATED Normal [facility] Comment on above: Performed By: #### MARTÍN THORNE UMICRO #### [facility] [address] [place] [address] Dr. Samm Hurtado Urobilinogen Qn (U) 0.2 {Edwin'U}/dL Normal 0.2 - 1. 0 [facility] Comment on above: Performed By: #### P MARTÍN LOCKE UMICRO #### [facility] [address] [place] [address] Dr. Samm Hurtado URon 01-01-2023 , QUAL Negative Normal NEGATIVE [facility] Comment on above: Performed By: #### P REGMARTÍN Stokes UMICRO #### [facility] [address] [place] [address] Dr. Samm Hurtado RESPIRATORY PANEL PLUSon Adenovirus Not detected Normal NOT DETECTED [facility] Comment on above: Performed By: #### R SPLUS ####[facility] [address] [address]Dr. Samm Hurtado B. Parapertusis Not detected Normal NOT DETECTED [facility] Comment on above: Performed By: #### R SPLUS ####[facility] [address] [address]Dr. Adoresuzette Hurtado B. Pertussis Not detected Normal NOT DETECTED [facility] Comment on above: Performed By: #### R SPLUS ####[facility] [address] [place], [place] [address]Dr. Yisuzette Hurtado Chlamydia Pneumoniae Not detected Normal NOT DETECTED [facility] Comment on above: Performed By: #### R SPLUS ####[facility] [address] [place], [place] [address]Dr. Yisuzette Hurtado Coronavirus 229E Not detected Normal NOT DETECTED [facility] Comment on above: Performed By: #### R SPLUS ####[facility] [address] [place], [place] [address]Dr. Samm Hurtado Coronavirus HKU1 Not detected Normal NOT DETECTED [facility] Comment on above: Performed By: #### R SPLUS ####[facility] [address] [place], [place] [address]Dr. Samm Hurtado Coronavirus NL63 Not detected Normal NOT DETECTED [facility] Comment on above: Performed By: #### R SPLUS ####[facility] [address] [place], [place] [address]Dr. Samm Hurtado Coronavirus OC43 Not detected Normal NOT DETECTED [facility] Comment on above: Performed By: #### R SPLUS ####[facility] [address] [place], [place] [address]Dr. Yisuzette Hurtado Influenza A H1 Not detected Normal NOT DETECTED [facility] Comment on above: Performed By: #### R SPLUS ####[facility] [address] [place], [place] [address]Dr. Yilan Hurtado Influenza A H1 2009 Not detected Normal NOT DETECTED [facility] Comment on above: Performed By: #### R SPLUS ####[facility] [address] [place], [place] [address]Dr. Yilan Hurtado Influenza A H3 Not detected Normal NOT DETECTED [facility] Comment on above: Performed By: #### R SPLUS ####[facility] [address] [place], [place] [address]Dr. Yilan Hurtado Influenza B Not detected Normal NOT DETECTED [facility] Comment on above: Performed By: #### R SPLUS ####[facility] [address] [address]Dr. Adoresuzette Hurtado Metapneumovirus Not detected Normal NOT DETECTED [facility] Comment on above: Performed By: #### R SPLUS ####[facility] [address] [address]Dr. Samm Hurtado Mycoplas. Pneumoniae Not detected Normal NOT DETECTED [facility] Comment on above: Performed By: #### R SPLUS ####[facility] [address] [address]Dr. Samm Hurtado Parainfluenza 1 Not detected Normal NOT DETECTED [facility] Comment on above: Performed By: #### R SPLUS ####[facility] [address] [place], [place] [address]Dr. Samm Hurtado Parainfluenza 2 Not detected Normal NOT DETECTED [facility] Comment on above: Performed By: #### R SPLUS ####[facility] [address] [place], [place] [address]Dr. Adoresuzette Hurtado Parainfluenza 3 Not detected Normal NOT DETECTED [facility] Comment on above: Performed By: #### R SPLUS ####[facility] [address] [place], [place] [address]Dr. Samm Hurtado Parainfluenza 4 Not detected Normal NOT DETECTED [facility] Comment on above: Performed By: #### R SPLUS ####[facility] [address] [place], [place] [address]Dr. Samm Hurtado Rhino/Enterovirus Detected Abnormal NOT DETECTED [facility] Comment on above: Performed By: #### R SPLUS ####[facility] [address] [place], [place] [address]Dr. Samm Hurtado RP2 Header 1 RESPIRATORY PANEL: VIRUSES Normal [facility] Comment on above: Performed By: #### R SPLUS ####[facility] [address] [place], [place] [address]Dr. Samm Hurtado RP2 Header 2 RESPIRATORY PANEL: BACTERIA Normal [facility] Comment on above: Performed By: #### R SPLUS ####[facility] [address] [address]Dr. Samm Hurtado RSV Not detected Normal NOT DETECTED [facility] Comment on above: Performed By: #### R SPLUS ####[facility] [address] [address]Dr. Samm Hurtado SARS-CoV-2 (COVID-19) RNA PARI+probe Ql (Unsp spec) Not detected Normal NOT DETECTED [facility] Comment on above: Performed By: #### R SPLUS ####[facility] [address] [address]Dr. Smam Hurtado URINE MICROSCOPIC ONLYon BACTERIA NONE SEEN Normal NONE SEEN [facility] Comment on above: Performed By: #### P REGU, ERUR, UMICRO #### [facility] [address] [address] [address] Samm Hurtado Bacteria identified Cx Nom (U) NOT INDICATED Normal [facility] Comment on above: Performed By: #### P REGU, ERUR, UMICRO #### [facility] [address] [address] [address] Samm Hurtado CAST NONE SEEN Normal NONE SEEN [facility] Comment on above: Performed By: #### P REGU, ERUR, UMICRO #### [facility] [address] [address] [address] Samm Hurtado Crystals LM Nom (Urine sed) SEEN Abnormal NONE SEEN [facility] Comment on above: Performed By: #### P REGU, ERUR, UMICRO #### [facility] [address] [address] [address] Samm Hurtado Epithelial cells LM Ql (Urine sed) FEW Abnormal NONE SEEN /RARE [facility] Comment on above: Performed By: #### P REGU, ERUR, UMICRO #### [facility] [address] [address] [address] Samm Hurtado MUCOUS TRACE Abnormal NONE SEEN [facility] Comment on above: Performed By: #### P REGU, ERUR, UMICRO #### [facility] [address] [address] [address] Samm Hurtado RBC 10-20 Abnormal 0-2 [facility] Comment on above: Performed By: #### P REGU, ERUR, UMICRO #### [facility] [address] [address] [address] Samm Hurtado WBC NONE SEEN Normal NONE SEEN [facility] Comment on above: Performed By: #### P REGU, ERUR, UMICRO #### [facility] [id number] Samm Hurtado XR CHEST 1 Von [...] VANESSA JEREZ Date: 2023-01-01 13:22 Normal [facility] CT lumbar spine wo conon CT lumbar spine wo con [facility] [place] [address] CT Scan Report Signed Patient: Leena Interiano MR#: [id number] : 1990 Acct:[id number] Age/Sex: 32 / F ADM Date: 10/30/22 Loc: [place] Room: Type: [facility] Attending Dr: Bentley TIMMONS Copies to: [...] Adriana Hoffman M.D.10/30/2022 5:11 PM Dictation Location: [place] [address] Transcribed By: [facility] 10/30/22 171 Dictated By: Adriana Hoffman MD 10/30/22 170 Signed By: 10/30/22 171 [facility] breast LT limited 10-30 breast LT [facility] [place] [address] Mammography Report Signed Patient: Leena Interiano MR#: [id number] : 1990 Acct:[id number] Age/Sex: 32 / F ADM Date: 10/30/22 Loc: [place] Room: Type: [facility] Attending Dr: Bentley Lucero NP-C Copies to: SHANELLE Galdamez Ordering Provider: SHANELLE Galdamez Date of Service: 10/30/22 MM/MM diagnostic mammo BI w/CAD: Mass overlapping multiple quadrants of left breast ([id number]) US/US breast LT limited: Mass overlapping multiple [...] Lanza Jr., D.ODaquan10/30/2022 4:09 PM Dictation Location: [facility] Transcribed By: VALERIE 10/30/22 1609 Dictated By: Adalberto Lanza Jr, DO 10/30/22 1608 Signed By: 10/30/22 1609 Normal [facility] Albumin [Mass/volume] in Ser um or PlasmaOrdered By: Bentley Lucero on 10-09-2022 Albumin [Mass/Vol] 4.1 g/dL 3.2-5.5 [facility] Basophils Auto (Bld) [#/Vol] Ordered By: Bentley Lucero on 10-09-2022 Basophils (Bld) [#/Vol] 0.0 10*3/uL 0.0-0.2 [facility] Basophils/100 WBC Auto (Bld) Ordered By: Bentley Lucero on 10-09-2022 Basophils/100 WBC (Bld) 0.8 % . [facility] CT biopsyOrdered By: Bentley carcamo on 10-09-2022 Transferrin [Mass/Vol] 291 mg/dL 180-380 [facility] Complete Blood Count Auto Di ffon 10-09-2022 Basophils (Bld) [#/Vol] 0.0 10*3/uL Normal 0.0-0.2 [facility] Comment on above: Order Comment: Reaso n for Exam Iron deficiency Result Comment: PERF ORMED BY: [facility] [address] [place] [address] PATHOLOGIST RIDDLER OPERATOR PRICE ZUNIGA M.D. Performed By: #### C BC, CMP, [id number], FE and TIBC ####[address] Basophils/100 WBC (Bld) 0.8 % Normal . [facility] Comment on above: Order Comment: Reaso n for Exam Iron deficiency Performed By: #### C BC, CMP, [id number], FE and TIBC ####[address] Eosinophils (Bld) [#/Vol] 0.1 10*3/uL Normal 0.0-0.45 [facility] Comment on above: Order Comment: Reaso n for Exam Iron deficiency Performed By: #### C BC, CMP, [id number], FE and TIBC ####[place] [id number] [facility] Eosinophils/100 WBC (Bld) 1.3 % Normal . [facility] Comment on above: Order Comment: Reaso n for Exam Iron deficiency Performed By: #### C BC, CMP, [id number], FE and TIBC ####[address] Erythrocyte distribution width (RBC) [Ratio] 13.8 % Normal 11.9-15.3 [facility] Comment on above: Order Comment: Reaso n for Exam Iron deficiency Performed By: #### C BC, CMP, [id number], FE and TIBC ####[address] Hematocrit (Bld) [Volume fraction] 39.3 % Normal 34.0-46.4 [facility] Comment on above: Order Comment: Reaso n for Exam Iron deficiency Performed By: #### C BC, CMP, [id number], FE and TIBC ####[address] Hemoglobin (Bld) [Mass/Vol] 12.9 g/dL Normal 11.8-15.4 [facility] Comment on above: Order Comment: Reaso n for Exam Iron deficiency Performed By: #### C BC, CMP, [id number], FE and TIBC ####[address] Lymphocytes (Bld) [#/Vol] 2.5 10*3/uL Normal 1.00-4.8 [facility] Comment on above: Order Comment: Reaso n for Exam Iron deficiency Performed By: #### C BC, CMP, [id number], FE and TIBC ####[address] Lymphocytes/100 WBC (Bld) 44.5 % Normal . [facility] Comment on above: Order Comment: Reaso n for Exam Iron deficiency Performed By: #### C BC, CMP, [id number], FE and TIBC ####[address] MCH (RBC) [Entitic mass] 26.2 pg Normal 24.7-34.3 [facility] Comment on above: Order Comment: Reaso n for Exam Iron deficiency Performed By: #### C BC, CMP, [id number], FE and TIBC ####[address] MCV (RBC) [Entitic vol] 80.1 fL Normal 80-100 [facility] Comment on above: Order Comment: Reaso n for Exam Iron deficiency Performed By: #### C BC, CMP, [id number], FE and TIBC ####[address] Mean Corpuscular HGB Conc 32.7 g/dL Normal 32.0-35.0 [facility] Comment on above: Order Comment: Reaso n for Exam Iron deficiency Performed By: #### C BC, CMP, [id number], FE and TIBC ####[address] Monocytes (Bld) [#/Vol] 0.4 10*3/uL Normal 0.0-0.8 [facility] Comment on above: Order Comment: Reaso n for Exam Iron deficiency Performed By: #### C BC, CMP, [id number], FE and TIBC ####[address] Monocytes/100 WBC (Bld) 6.5 % Normal . [facility] Comment on above: Order Comment: Reaso n for Exam Iron deficiency Performed By: #### C BC, CMP, [id number], FE and TIBC ####[address] Neutrophils (Bld) [#/Vol] 2.6 10*3/uL Normal 1.8-7.7 [facility] Comment on above: Order Comment: Reaso n for Exam Iron deficiency Performed By: #### C BC, CMP, [id number], FE and TIBC ####[address] Neutrophils/100 WBC (Bld) 46.9 % Normal . [facility] Comment on above: Order Comment: Reaso n for Exam Iron deficiency Performed By: #### C BC, CMP, [id number], FE and TIBC ####[address] NRBC% 0.2 /100{WBC} Normal 0-0.5 [facility] Comment on above: Order Comment: Reaso n for Exam Iron deficiency Performed By: #### C BC, CMP, [id number], FE and TIBC ####[address] [address] [facility] Platelet mean volume (Bld) [Entitic vol] 9.2 fL Normal 6.3-10.7 [facility] Comment on above: Order Comment: Reaso n for Exam Iron deficiency Performed By: #### C BC, CMP, [id number], FE and TIBC ####[place] [id number] [facility] Platelets (Bld) [#/Vol] 263 10*3/uL Normal 150-450 [facility] Comment on above: Order Comment: Reaso n for Exam Iron deficiency Performed By: #### C BC, CMP, [id number], FE and TIBC ####[place] [id number] [facility] RBC (Bld) [#/Vol] 4.91 10*6/uL Normal 3.60-5.00 [facility] Comment on above: Order Comment: Reaso n for Exam Iron deficiency Performed By: #### C BC, CMP, [id number], FE and TIBC ####[place] [id number] [facility] WBC (Bld) [#/Vol] 5.5 10*3/uL Normal 3.8-11.6 [facility] Comment on above: Order Comment: Reaso n for Exam Iron deficiency Performed By: #### C BC, CMP, [id number], FE and TIBC ####[place] [id number] [facility] Comprehensive Metabolic Pane adam 10-09-2022 Albumin [Mass/Vol] 4.1 g/dL Normal 3.2-5.5 [facility] Comment on above: Order Comment: Reaso n for Exam Iron deficiency Reason for Exam Vitamin D deficiency Performed By: #### C BC, CMP, [id number], FE and TIBC ####[place] [id number] [facility] Albumin/Globulin [Mass ratio] 1.5 {ratio} Normal [facility] Comment on above: Order Comment: Reaso n for Exam Iron deficiency Reason for Exam Vitamin D deficiency Performed By: #### C BC, CMP, [id number], FE and TIBC ####[address] [address] [facility] ALP [Catalytic activity/Vol] 47 U/L Normal 32-92 [facility] Comment on above: Order Comment: Reaso n for Exam Iron deficiency Reason for Exam Vitamin D deficiency Performed By: #### C BC, CMP, [id number], FE and TIBC ####[address] [address] [facility] ALT [Catalytic activity/Vol] 18 U/L Normal 10-60 [facility] Comment on above: Order Comment: Reaso n for Exam Iron deficiency Reason for Exam Vitamin D deficiency Performed By: #### C BC, CMP, [id number], FE and TIBC ####[address] [address] [facility] Anion gap [Moles/Vol] 11.7 mmol/L Normal 6.0-15.0 [facility] Comment on above: Order Comment: Reaso n for Exam Iron deficiency Reason for Exam Vitamin D deficiency Performed By: #### C BC, CMP, [id number], FE and TIBC ####[address] [address] [facility] AST [Catalytic activity/Vol] 19 U/L Normal 10-42 [facility] Comment on above: Order Comment: Reaso n for Exam Iron deficiency Reason for Exam Vitamin D deficiency Performed By: #### C BC, CMP, [id number], FE and TIBC ####[address] [address] [facility] Bilirubin [Mass/Vol] 0.6 mg/dL Normal 0.3-1.2 [facility] Comment on above: Order Comment: Reaso n for Exam Iron deficiency Reason for Exam Vitamin D deficiency Performed By: #### C BC, CMP, [id number], FE and TIBC ####[address] [address] [facility] Calcium [Mass/Vol] 9.1 mg/dL Normal 8.2-10.2 [facility] Comment on above: Order Comment: Reaso n for Exam Iron deficiency Reason for Exam Vitamin D deficiency Performed By: #### C BC, CMP, [id number], FE and TIBC ####[place] [id number] [place] [address] [facility] Chloride [Moles/Vol] 106 mmol/L Normal 95-114 [facility] Comment on above: Order Comment: Reaso n for Exam Iron deficiency Reason for Exam Vitamin D deficiency Performed By: #### C BC, CMP, [id number], FE and TIBC ####[address] [address] [facility] CO2 [Moles/Vol] 23.6 mmol/L Normal 22.0-30.0 [facility] Comment on above: Order Comment: Reaso n for Exam Iron deficiency Reason for Exam Vitamin D deficiency Performed By: #### C BC, CMP, [id number], FE and TIBC ####[place] [id number] [facility] Creatinine [Mass/Vol] 0.75 mg/dL Normal 0.44-1.03 [facility] Comment on above: Order Comment: Reaso n for Exam Iron deficiency Reason for Exam Vitamin D deficiency Performed By: #### C BC, CMP, [id number], FE and TIBC ####[place] [id number] [facility] Estimated GFR ( Edith > 60 [facility] Comment on above: Order Comment: Reaso n for Exam Iron deficiency Reason for Exam Vitamin D deficiency Result Comment: GFR estimated reference range: According to KDOQI guidelines, <60 ml/min/1.73m2 is sufficient to diagnose a patient with chronic kidney disease. Performed By: #### C BC, CMP, [id number], FE and TIBC ####[place] [id number] [facility] Estimated GFR (Non- Am > 60 [facility] Comment on above: Order Comment: Reaso n for Exam Iron deficiency Reason for Exam Vitamin D deficiency Performed By: #### C BC, CMP, [id number], FE and TIBC ####[place] [id number] [place] [address] [facility] Globulin (S) [Mass/Vol] 2.8 g/dL Normal [facility] Comment on above: Order Comment: Reaso n for Exam Iron deficiency Reason for Exam Vitamin D deficiency Performed By: #### C BC, CMP, [id number], FE and TIBC ####[place] [id number] [facility] Glucose [Mass/Vol] 90 mg/dL Normal 70-100 [facility] Comment on above: Order Comment: Reaso n for Exam Iron deficiency Reason for Exam Vitamin D deficiency Result Comment: [facility] Glucose Reference Range is dependent on time and content of last meal. Glucose of more than 200 mg/dL in a nonstressed, ambulatory subject supports the diagnosis of Diabetes Mellitus. ADA recommended reference range Performed By: #### C BC, CMP, [id number], FE and TIBC ####[place] [id number] [facility] Potassium [Moles/Vol] 4.3 mmol/L Normal 3.5-5.1 [facility] Comment on above: Order Comment: Reaso n for Exam Iron deficiency Reason for Exam Vitamin D deficiency Performed By: #### C BC, CMP, [id number], FE and TIBC ####[place] [id number] [facility] Protein [Mass/Vol] 6.9 g/dL Normal 6.1-7.9 [facility] Comment on above: Order Comment: Reaso n for Exam Iron deficiency Reason for Exam Vitamin D deficiency Performed By: #### C BC, CMP, [id number], FE and TIBC ####[place] [id number] [facility] Sodium [Moles/Vol] 137 mmol/L Normal 136-146 [facility] Comment on above: Order Comment: Reaso n for Exam Iron deficiency Reason for Exam Vitamin D deficiency Performed By: #### C BC, CMP, [id number], FE and TIBC ####[address] [address] [facility] Urea nitrogen [Mass/Vol] 11 mg/dL Normal 9-23 [facility] Comment on above: Order Comment: Reaso n for Exam Iron deficiency Reason for Exam Vitamin D deficiency Performed By: #### C BC, CMP, [id number], FE and TIBC ####[facility] [id number] [place] [id number] [facility] Creatinine and Glomerular fi ltration rate.predicted panel (S/P/Bld)Ordered By: Bentley Lucero on 10-09-2022 Creatinine [Mass/Vol] 0.75 mg/dL 0.44-1.03 [facility] Eosinophils Auto (Bld) [#/Vo l]Ordered By: Bentley Lucero on 10-09-2022 Eosinophils (Bld) [#/Vol] 0.1 10*3/uL 0.0-0.45 [facility] Eosinophils/100 WBC Auto (Bl d)Ordered By: Bentley Lucero on 10-09-2022 Eosinophils/100 WBC (Bld) 1.3 % . [facility] Erythrocyte distribution wid th Auto (RBC) [Ratio]Ordered By: Bentley Lucero on 10-09-2022 Erythrocyte distribution width (RBC) [Ratio] 13.8 % 11.9-15.3 [facility] Estimated glomerular filtrat ion rate (GFR) non- AmericanOrdered By: Bentley Lucero on 10-09-2022 GFR/1.73 sq M.predicted among non-blacks MDRD (S/P/Bld) [Vol rate/Area] > 60 mL/Min [facility] Globulin Calc (S) [Mass/Vol] Ordered By: Bentley Lucero on 10-09-2022 Globulin (S) [Mass/Vol] 2.8 g/dL [facility] Hematocrit Auto (Bld) [Volum e fraction]Ordered By: Bentley Lucero on 10-09-2022 Hematocrit (Bld) [Volume fraction] 39.3 % 34.0-46.4 [facility] Hemoglobin [Mass/volume] in BloodOrdered By: Bentley Lucero on 10-09-2022 Hemoglobin (Bld) [Mass/Vol] 12.9 g/dL 11.8-15.4 [facility] Iron [Mass/volume] in Serum or PlasmaOrdered By: Bentley Lucero on 10-09-2022 Iron [Mass/Vol] 112 ug/dL 40-150 [facility] Iron and TIBC Profileon 09-15 % Iron Saturation 27.5 % Normal 20-50 [facility] Comment on above: Order Comment: Reaso n for Exam Iron deficiency Reason for Exam Vitamin D deficiency Performed By: #### C BC, CMP, [id number], FE and TIBC ####[facility] [id number] [place] [address] [facility] Iron [Mass/Vol] 112 ug/dL Normal 40-150 [facility] Comment on above: Order Comment: Reaso n for Exam Iron deficiency Reason for Exam Vitamin D deficiency Performed By: #### C BC, CMP, [id number], FE and TIBC ####[facility] [id number] [place] [address] [facility] Total Iron Binding Capacity 407 ug/dL Normal 255-450 [facility] Comment on above: Order Comment: Reaso n for Exam Iron deficiency Reason for Exam Vitamin D deficiency Performed By: #### C BC, CMP, [id number], FE and TIBC ####[place] [id number] [place] [address] [facility] Transferrin [Mass/Vol] 291 mg/dL Normal 180-380 [facility] Comment on above: Order Comment: Reaso n for Exam Iron deficiency Reason for Exam Vitamin D deficiency Performed By: #### C BC, CMP, [id number], FE and TIBC ####[facility] [id number] [place] [address] [place] Iron binding capacity [Mass/ volume] in Serum or PlasmaOrdered By: Bentley Lucero on 10-09-2022 Iron binding capacity [Mass/Vol] 407 ug/dL 255-450 [facility] Iron saturation [Mass Fracti on] in Serum or PlasmaOrdered By: Bentley Lucero on 10-09-2022 Iron saturation [Mass fraction] 27.5 % 20-50 [facility] Leukocytes [#/volume] correc flavio for nucleated erythrocytes in Blood by Automated counOrdered By: Bentley Lucero on 10-09-2022 WBC corrected for nucl RBC Auto (Bld) [#/Vol] 5.5 10*3/uL 3.8-11.6 [facility] Lymphocytes Auto (Bld) [#/Vo l]Ordered By: Bentley Lucero on 10-09-2022 Lymphocytes (Bld) [#/Vol] 2.5 10*3/uL 1.00-4.8 [facility] Lymphocytes/100 WBC Auto (Bl d)Ordered By: Bentley Lucero on 10-09-2022 Lymphocytes/100 WBC (Bld) 44.5 % . [facility] MCH Auto (RBC) [Entitic mass ]Ordered By: Bentley Lucero on 10-09-2022 MCH (RBC) [Entitic mass] 26.2 pg 24.7-34.3 [facility] MCHC Auto (RBC) [Mass/Vol]Or dered By: Bentley Luceor on 10-09-2022 MCHC (RBC) [Mass/Vol] 32.7 g/dL 32.0-35.0 [facility] MCV Auto (RBC) [Entitic vol] Ordered By: Bentley Lucero on 10-09-2022 MCV (RBC) [Entitic vol] 80.1 fL 80-100 [facility] Monocytes Auto (Bld) [#/Vol] Ordered By: Bentley Lucero on 10-09-2022 Monocytes (Bld) [#/Vol] 0.4 10*3/uL 0.0-0.8 [facility] Monocytes/100 WBC Auto (Bld) Ordered By: Bentley Lucero on 10-09-2022 Monocytes/100 WBC (Bld) 6.5 % . [facility] Neutrophils Auto (Bld) [#/Vo l]Ordered By: Bentley Lucero on 10-09-2022 Neutrophils (Bld) [#/Vol] 2.6 10*3/uL 1.8-7.7 [facility] Neutrophils/100 WBC Auto (Bl d)Ordered By: Bentley Lucero on 01-26-2023 Neutrophils/100 WBC (Bld) 46.9 % . [facility] No Panel InformationOrdered By: Bentley Lucero on 10-09-2022 25-Hydroxy Vitamin D Total 15.6 ng/mL 30-100 [facility] Comment on above: VITAMIN D STATUS 25( [place])VITAMIN D RANGE (ng/mL) Deficient <20 Insufficient 20 to <30Sufficient 30 to 100Reference: Joe MF,Briana NC, Brenton VARGAS, et al. Evaluation,treatment, and prevention of vitamin D deficiency; an Endocrine Society clinical practice guideline. JCEM. 2010; 96(7):1911-30. Estimated GFR () > 60 mL/Min [facility] Comment on above: GFR estimated refere nce range: According to KDOQI guidelines, <60 ml/min/1.73m2 is sufficient to diagnose a patient with chronic kidney disease. Pharmacy Creatinine Clearance (Chem N/A [facility] Nucleated erythrocytes [Pres ence] in Blood by Automated countOrdered By: Bentley Lucero on 10-09-2022 Nucleated RBC Auto Ql (Bld) 0.2 /100{WBC} 0-0.5 [facility] Platelet mean volume Auto (B ld) [Entitic vol]Ordered By: Bentley Lucero on 10-09-2022 Platelet mean volume (Bld) [Entitic vol] 9.2 fL 6.3-10.7 [facility] Platelets Auto (Bld) [#/Vol] Ordered By: Bentley Lucero on 10-09-2022 Platelets (Bld) [#/Vol] 263 10*3/uL 150-450 [facility] Protein [Mass/volume] in Ser um or PlasmaOrdered By: Bentley Lucero on 10-09-2022 Protein [Mass/Vol] 6.9 g/dL 6.1-7.9 [facility] RBC Auto (Bld) [#/Vol]Ordere d By: Bentley Lucero on 10-09-2022 RBC (Bld) [#/Vol] 4.91 10*6/uL 3.60-5.00 [facility] Serum or plasma alanine bedoya otransferase measurement without P-5'-P (enzymatic activiOrdered By: Bentley Lucero on 10-09-2022 ALT No additional P-5'-P [Catalytic activity/Vol] 18 U/L 10-60 [facility] Serum or plasma albumin/glob ulin mass ratioOrdered By: Bentley Lucero on 10-09-2022 Albumin/Globulin [Mass ratio] 1.5 {ratio} [facility] Serum or plasma alkaline diaz sphatase measurement (enzymatic activity/volume)Ordered By: Bentley Lucero on 10-09-2022 ALP [Catalytic activity/Vol] 47 U/L 32-92 [facility] Serum or plasma anion gap de terminationOrdered By: Bentley Lucero on 10-09-2022 Anion gap [Moles/Vol] 11.7 mmol/L 6.0-15.0 [facility] Serum or plasma aspartate am inotransferase measurement (enzymatic activity/volume)Ordered By: Bentley Lucero on 10-09-2022 AST [Catalytic activity/Vol] 19 U/L 10-42 [facility] Serum or plasma calcium jose urement (mass/volume)Ordered By: Bentley Lucero on 10-09-2022 Calcium [Mass/Vol] 9.1 mg/dL 8.2-10.2 [facility] Serum or plasma chloride yobany surement (moles/volume)Ordered By: Bentley Lucero on 10-09-2022 Chloride [Moles/Vol] 106 mmol/L 95-114 [facility] Serum or plasma glucose jose urement (mass/volume)Ordered By: Bentley Lucero on 10-09-2022 Glucose [Mass/Vol] 90 mg/dL 70-100 [facility] Comment on above: ADA recommended refe rence rangeRandom Glucose Reference Range is dependent on time and content of last meal. Glucose of more than 200 mg/dL in a nonstressed, ambulatory subject supports the diagnosis of Diabetes Mellitus. Serum or plasma potassium me asurement (moles/volume)Ordered By: Bentley Lucero on 10-09-2022 Potassium [Moles/Vol] 4.3 mmol/L 3.5-5.1 [facility] Serum or plasma sodium measu rement (moles/volume)Ordered By: Bentley Lucero on 10-09-2022 Sodium [Moles/Vol] 137 mmol/L 136-146 [facility] Serum or plasma total biliru bin measurement (mass/volume)Ordered By: Bentley Lucero on 10-09-2022 Bilirubin [Mass/Vol] 0.6 mg/dL 0.3-1.2 [facility] Serum or plasma total carbon dioxide measurement (moles/volume)Ordered By: Bentley Lucero on 10-09-2022 CO2 [Moles/Vol] 23.6 mmol/L 22.0-30.0 [facility] Serum or plasma urea nitroge n measurement (mass/volume)Ordered By: Bentley Lucero on 10-09-2022 Urea nitrogen [Mass/Vol] 11 mg/dL 9-23 [facility] Vitamin D 25 Hydroxy Totalon 10-09-2022 Vitamin D 25 Hydroxy Total 15.6 ng/mL Low 30-100 [facility] Comment on above: Order Comment: Reaso [...] practice guideline. JCEM. 2010; 96(7):1911-30. PERFORMED BY: [facility] [address] [place] [address] PATHOLOGIST RIDDLER OPERATOR PRICE ZUNIGA M.D. Performed By: #### C BC, CMP, [id number], FE and TIBC ####[facility] [id number] [place] [address] [facility] WBC Auto (Bld) [#/Vol]Ordere d By: Bentley Lucero on 10-09-2022 WBC (Bld) [#/Vol] 5.5 10*3/uL 3.8-11.6 [facility] XR LSPINE 2_3 VIEWSon 2022 XR LSPINE [...] VANESSA JEREZ Date: 2022-10-08 12:48 Normal [facility] ED Note-Physicianon 09-06-20 ED Note-Physician Basic Information [...] has bronchitis. Patient is deaf and an drafting technician is used throughout the encounter. Review of [...] is afebrile. Patient is deaf, so an drafting technician is used throughout the encounter. She denies [...] In 3 days 09/01/2022 EST [address] [place] [address]- Business (1) Additional Instructions: Follow-up with your primary care provider in 3 to 5 days. If symptoms worsen, do not improve, or new symptoms arise please report back to emergency department for further evaluation. Patient Education Acute Bronchitis, Adult Attestation Patient seen and evaluated by the physician orthopaedic physician assistant. Attending physician was present in the emergency department and supervised care. This visit was performed by both the physician and an APC. I performed all aspects of the MDM as documented. This report was transcribed using voice recognition software. Every effort was made to ensure accuracy, however, inadvertently computerized building rigger mistakes may be present. Appropriate healthcare PPE [...] Tab, 25 (more content not included)... Normal [facility] Comment on above: Result Comment: Elec tronically Signed By: Ron James PA-C\.br\Date and Time Signed: 08/29/22 18:33 EST\.br\Electronically Co-Signed By: Kristopher Clemons DO\.br\Date and Time Co-Signed: 09/06/22 07:00 EST Coding Summary.on 09-02-2022 Coding Summary. CD:[id number] Gh 0bWw+PGhlYWQ+FH8VPWMuI 07jsXKotX2XO1mRZJ4ZBIO OQZXYYJ8YZB5qsAV0WKixL 2VybiAv AxzxrCVbTM65ZDu1GAL8oD lgKXntiI7oqJKxO9f4QyYk NY18tD15TWegSAZzHcP0Iq ZpbjsgbWFy Z9gbOlFwmRNmRlu+PHRhYm xlIHdpZHRoPScxMDAlJyBz vQudCN0jWb1uNLNoUZTfcV xhcHNlOiBj u7pwJMQnIHybFK8buVemK6 DbrBE9PPJmo5k2Fz78nMB+ SCNoGPQ8pFekPKjen128Uo Vrw9ecKQH5 fHJnZEzlENZ4U00sf6T0DY QhBHJpDZP5vUM2oG7zvTtw byngJ6MtfLCrZiP0LEI7pX SbxP5ryGuo mhlhnC9nLer+F50JET0YFT VQXV7JFyu2K1SmNvbyeIH+ LJ62MKUmEI49aLHniZSet2 nmmJf3DsUi KJQgZSK1hKfpVVunf5RgZO IeP44vnBCkd0T4JUWbiHqu oHCiZqCuzUW4xH6mBLpmvi nfh5ahzfbf Lkjwd7mlij69nE49H47vWX tvSLTsCID3IDKgGGSpcCoa lh2ztK7dCw0+YRweu0tjr9 aunEh1VwSx CPKmfdDyhApdUXQ4n2BbFu 15V9XazAmhj4AeDfk7fn98 fRRzg5O0qNY0JFkbGHHuwC 3pIMhcErY3 YMDzRnIciV45iVSuWDbeVg 4qgGtmvOwsLM8vIWGdskdc USHgwL2hAIIjeAOwuAmsIS 4wNTBpbjtm y910GhLrYXV2SWZkgOWcI7 AxwH7zOfMqZYXfQSLwJ1Lu hYWqJCzhC639KEajToO1ZZ XrgbTmE9Wm TTPufVqdQuE7n1P2Dk1Zi9 ZnpbyyWFT7EFbbNRTsNhGd JiSsCgH9D1IlHhy2QENnnW otFU4vP1Aq YGKtegjyxrsrmIE1OVVuDT FtbE84cMLbCSezHo8xa5Q5 x522GKNvUHVwqM15Ij6tgB ogMTBwdCBU rP9vdkbvk1kghodwCiEaTC VgYYl1JZb7KZKjoEadWgCq OCC8KoW1GWN5sZHauF2wlG jfwjjbdI7s Oyc+C90yaJ0pCTY7TLT0oo muSUMeofVpPR02LH88E8Wi PjwvdGFibGU+PGRpdiBzdH jjIP4rLuFu m5zhi1XnQNnuP7LkQANaCP lvVyy7RYCmCUP6pKS3eR5e QVOjHYhcj1Z7cMA9S3Wixc Idju6im2qo JXJdOYfdP26xwEQtt6S5ZU BftXL3VRGeeHqzTbOwqM24 Oyc+CGXxiDkth2EyFsxny0 acf6xyzIk4 GnHbTVUdivQxiSecDIE1f2 HbHs64Z12gJFqdFVMpWTYm ZGJrSDVvqNfptd3pjU0uHe 8+PGNvbCB3 uNO0kG4wLNQhRzJ5IBwjT0 06KmWswCLiFnpmz4kmk5vr hUz8AbUiGAVbozMlnIzgBA G0k2OvOf09 U88hQVumRNYzPXLjQUTpYC RyiVvecn6fxH6qFp2+PC9j v5iqlt45eZ84fPZ+PHRkIH Y9jQgeYYsk DOIhgV0iOBijCsW1ZLEdZu AazE83pJNwBBveTn8reAks pOeeNM1aDSOpaliml853Gn Spo7umWMSd kSVlOCxuCUI4A27so5N1FY FdOLWgAMC9kQC2mF2hsNaw bjogbGVmdDsgdmVydGljYW reOTmdZ393 IHRvcDsnPlBhdGllbnQgTm DwBDh4Y5SnSqm0FNCvtPfw JH0bmWTxXEteSy7vqOhsyS jiSK6sMUSm korzu601ZqHgt2tqWJLfyC BuHRbhXMA6P24ob9X0TFAq SSAgVXW9cPK9nZ0ncJlhxn ogbGVmdDsg xzNyfVofMMkmKUxkC310TW RvcDsnPkJpcnRoIERhdGU6 SJ66KQ24vIAjj0Q6eRT0Q0 BhZGRpbmct alkpwIY4LUPvCYNajI66Te 3khSkrDa7kVNHwSKR2XOWv lMOnE5HnyV1tFaNzJUZaBK KeW6NswYXc GGzlI815CEyoJcS3LJGorl QwM8CbIICmuWutObX8d5C6 Eq6EN8V0BO62OE58tDCns2 T1xNY6M7Ca AFAbqnnnrozshNH1MAOnGL BfsF93Vf5dqAiyAq4tOECu JUL8IFAnvDDaX3CcgQ4kRy AjMDAwMDAw X0AbgYXnJWzdI901ZFurXq O3SCCmhqJzJ1TeFRBqgMzn BfR6d4U9Km2NFCf0ZV07WO 92qFQmo5D6 eKW6F6ZdKAXfumpdfxgkkP J7ATDcZSLejQ86Pu2icCin By3lJMKdVQA6TSAqlEIpH9 XezR9fZtMe RNHvPVJgZ3CafJSgRFqzR8 96DJssLxO2FNOjyrNrX6Un HXPkeEtbLyY0t9Z2Ib7MOJ OxIX63QNS6 aUO1KU57IP77O2OaFhwnrI FibGU+PHRhYmxlIHdpZHRo KXmrEMRtDjRceGjcYR4xVq 9yZGVyLWNv wTjphEEvJmCox3dpEMAfPF jdKK2lhScrW7NbmHL5KPHy f2d4Bv91Y88nO4IoqCO+PG QiyEK7sOT4 pU7pDvLhGiP3MUxpW180Rl ZxwJSzXdnfy3dbp6iwdBz0 CuZ4LCAricCglUqaNQP9a2 RtAb09G28n IHdpZHRoPSIxNSUiIHZhbG ijsd7rdJ5pJj0+PGNvbCB3 hTY0oS0bVsAuQzJ3UDjfZ9 49InRvcCIv Xmhrv8fzm7vnnRo7CeQyMS RycaKcyQjvUUQ9w7EnQa42 R7ChjOcnt8NvJgi7rj46bL Fff4N2oLF5 U0SzUUEmgspzsYRfnSusFT 3lKEVlxpndVCJucS0jUPXk T6x4JcLxBeD3ZBhmI8Pwhv V9BLDagDKd ZJwyKEC3T56as2O9XYNrED XlQQA5eAO9aJ1xoGnkkhlz bGVmdDsgdmVydGljYWwtYW dlB392FFBb lKxqIFLqdR5jYAVicQPdgA inNJ2hMCHlykkfLqpNYLgg IEpBREEgTTwvdGQ+PHRkIH J6zMswCJry EUZjeF1jQIArT6t4JoJuYr I2WNndT8HsQGUwyfvlFu07 pL1dSnFhNjM6BDupW4Gpqs K4ICAjpKHx XOimSPR5H11ii8T7WRBsWF SrVUZ5nNH0nY1tfFmbzexm bGVmdDsgdmVydGljYWwtYW bkP957YETw dJrpOvD8PgN5CnD2PRK3N9 NeGaa6RCKkeCzfQY5gtVXy TEuxTp7tyMwlkXbmPT3sHU BpbjtwYWRk tQ2qVBHdnZGvhYzbXJ4jXX Rgerkin390LiJkDQR4NSWc gECvK1IdcF7iDnTpZXNeKL JuP4FllTGs VHysQ939RQscDsG5SASdnz OkD4UkLVZuxQaqIxI0c4N3 Qc8hYWQTZCVhptgkzGQ+PH WyMRD6kHih GVzcZCXijL7iKHZlL8s0Rh PmZlY5ECdqU6NcDFBxcvsi Wb06gM9cQpLxRnB3YSygN4 DvysS4TTLu aLSxSCcjVLE6P42ex1N9KB EdFWMfQZA2jZT8iW6mdLsk bjogbGVmdDsgdmVydGljYW usXWqoT679 IHRvcDsnPkZlbWFsZTwvdG Q+VWQbIKH6vWqdMNvkQRHt zT0sSQNxX2v8StDnNxO8LT nnM8AfKFFa zoxxGh15lS9gYbJyAgO4SR hoT6GxhyN2FKCpcBEiAAer RFG1B37ba6C2NSMfUTKaZZ S6cVY3mP9s bGlnbjogbGVmdDsgdmVydG nkVEdjKAbfU748TSKpdDco KpNvFMXaAT6rmMyvyRC+PC 47lb86V4Fx KovzQzv8KHCjXJM4eVI5pP 3cYBPzZHpyz9O8xSP9G9Wy auUmqy4gv1jmNANhIJrnS8 4dvQEqn9O4 RTCljTH8RCWneMemFwLgwJ 93Oyc+VIIruTpdn4XyBvrh s0erb6hdfKv6YcOfBCQgui FsaWduPSJ0 f4ZdZz25J57mCGtjIBVgHO FwAAIaTCHkeGxmvl3fxP9r Ii8+EBMiwTE8vQU3xV1mBz KeQeW3IMik Z180SoAitJBdHdapx5kmb2 hekGy8IfBxJSRcekSvlQwq YDT7w1EiRn65Z2PeaLevq8 KvJvt4if82 sSJjf9X7iKX5S7IxEYOwyz panILrtQjuMX1tIKMzfgbi HZGhyU8aFDYeB5j8IpCmJz F1NTtwI2Fh gnA5VKFgyAXbIVYhpEUTnS 1edydup8aeuoimTtKbHVNs TAm6DKz2DVOvuDhuWoPoHU H8MrU5DYD4 rLKcmY1ftUkqcjjpaR8pTy c+IYo4z7nioHNuKQ2laOO1 DS47YQ11iWLqu6G7lVC0Z0 BhZGRpbmct sqknrNE6UYLuUMNdzE40Yi 2ojNbuTq9nMKEuVZH3OUZz vAEoB8OouM8jIcRkEXJuBL FlV2GpeDRe CWycS035NTrlUqU2GCBpts QwG7MrIHHkrTbhGcI4f9D5 Up8YSV79RQ65ZT66wTRym7 J4gAH6O9Ji YRWzixumwdnslQI7ZRZiJZ XleW30Qa1dwSwxYd9aLMKy FUN7FWLctOBiK2VxpA9uXr AjMDAwMDAw Y0AjjDMeRVzmW697KCftQp L1QKXeaoQiB0FnWJRtjGul PeR0v7J0Us0PHa62HR07HT 01hSYms5O8 gSA3O6UqKXXotlabklmhvN F6GLElWLGhlZ30Wo9pyFqd Uf3lJIOxOLS0GBAxuKYqG0 DaeF5wHcWy YJYcGOFaV6ZgcEPgMNexI0 79YOzfQsG8NULwuuOdE3Zk IVDfcKbhMkU6n8P5Bn7ECN yenzq9P1Fg PjwvdHI+RQ93XARjBF27rZ LlkPYmi9eqnNb3LxUzPBPg EBY9mQzcMDlcd5JmXZJlD5 8gvHXig5R5 IGNv (more content not included)... Normal [facility] Coding Summary. [id number] Gh 0bWw+PGhlYWQ+EZ4PIMMiH 37mhFXqwE0QN1fHFC8UCJW IKHMVVP1CPK7yoNE1UDmuF 2VybiAv FjxmbDSyNM93ZPp6NWH7xP jhWDdbcH6acTSeM9g9ZpQy AR61hS03ISbnPXUtOaC5Qu ZpbjsgbWFy Y3dfCtJaeGLyUst+PHRhYm xlIHdpZHRoPScxMDAlJyBz iEllGO3mKh3vNCZcCRSohV xhcHNlOiBj c8hkJYQqAYakIN9hcDktP6 XqgSL1XCVtj9x0Vb80oMY+ PZXiAOO3tBrcXAqrp987Ee Rrm6xvKFK1 yEUbRKmbIGO4Y42dr1D4PU XkUOXhFVT5gFI5cX9fdWle ltiwO6KaiDQrXuO4BMC5nY CcnH6zgGvi syuhjT3uMtj+A44BNE1HVV PHCU3EKxc3P5OiPhqyhPP+ ES51SZSgPL80jAXmrULzt9 xtoYy5JmCd QKQxBYM7rXfpHNhij8YdIK AwU99jaCGnl5W5JCGrtPwl qWTzOtEypWN5nQ2sTMbktm jag5gdhcax Irxjq7qxlo26jK23S51zJI zwKWMaVTU6SXHaJWNghQbw ac1hhR6iSo6+WDmeq1hnh0 ghgUr1RxEa DVHhyhOdjVvsOID5v0GaJx 54H4YdsNwfh8BlXyi9mb62 mUIph2L3yCC5OFfxWSCtnB 8hPMckCfJ7 WKKpIyFfwN01sCQqBVchHr 6yuLqaoDezFU0xQMGzqqcm MEWygT0jCSSxyDRfbDrqON 4wNTBpbjtm c174ApThOQA4ZQGrsPNwS6 NxlO0nEzWdYELjNVYwM4Yz wYLsJQcjE530CUbnUwE2XT TkewKrT5On VFDasPcvXaB7k7C6Vw0Ts3 NfmfjcCRA9SBgmORYbZwZw IyRoDwZ0W3NzIgx3VWSirE zpIW2wL9Hw HFFaganloykgwTR6KVEoKT JazZ53aVJdZHhtNg0af0L5 x123DSAgSGZgeT41Kx6qpN ogMTBwdCBU eE6gdscbl3ikgyohAgTuRM RiHZd7NZn3LFLxvHsjMfNa MEC9NvF4MRJ9oKWziS9wkJ gjmtrrlO6l Oyc+C09alW5rPVE6RBK8kk jaNVCleqPnHD17PQ58M3Lo PjwvdGFibGU+PGRpdiBzdH ydKR0qFhXr j6zac4ArMSaeI1VpZFOfAF dmQwt6KUOlERH9uPP1aI0d VMPwJLami2X0fTL6S4Iyoc Nfyv0hn7qz XFOnFIjjT84vgYXvr8N0OU EwhGX9TDRwaLzdWfAknN72 Oyc+YINwyDylu3ScNepgs5 bcn2bqaLv6 ZcUnERWpcrNnaQzuAWD1i7 EkZs59K53bZJmeCWFzDFKf MXBhUBTftVmssr5udT3oBu 8+PGNvbCB3 mMZ4uU9jQRPcUwH5XCmjF9 47TpJhmIUaRnfdt9nxi7ia sHy6PnVyHJSoaqZsfHrwMC J3e2HyWo75 B09uUAchFTUnOLAbAPHfXU HxfNhess1jbB0tIf8+PC9j w7rjqj99hV73oJY+PHRkIH C8fNhzWKio OPElxE3wOWscWqK2ADIgUi UxvB51cFOfYYedHg3yfQir gIbaDO6zWXOnhtaoq912Jm Sqd9gmRRVb oCEqWRzlSYS1E57ho3O3HK WuKUOwVWL9oHU6xO4gaKpl bjogbGVmdDsgdmVydGljYW neFHujR337 IHRvcDsnPlBhdGllbnQgTm BzIOx9U7DqEmm2ZGIwtHgz WM2syPAmBFnlRm9rbHuyiF zgLY7jUVSd kkufh851YtVsa7yjOXMfiA JrVTkqGDK3H91uj6G8HXRx IECiDBO8nFT5aR5ckPojzb ogbGVmdDsg mxNmuTxcKDxzKNowV506FY RvcDsnPkJpcnRoIERhdGU6 AN61CQ68sXBoo4V5dVI7G6 BhZGRpbmct vtoydDF9EGDgJOWsuD53Qf 4nlVckVb9cSZRaHBJ7IUIa fIZqA3AdsQ4iAvFwBWNmOY IrD9GijSSn MPikR495FAoaEmV7JOYfxh IaA5GqBCArbCgfXdW5i8X4 Sd6PR2A5EJ10MJ72nFGaz6 B2sOB2C8Qv JZChzxgxbbzdnHW4QCHeKI BicW73Hr9olKgpFz6pPEOu MLE8SROvsPOvA1OnrW2mZb AjMDAwMDAw C4HnuBXpRRgqK862NNooDj C0ZQJrzxVqP0UxGBWewGub KzZ4c6U1Aa2HJTg8KY50CU 04tASjk6H1 mJJ1G0HrWAFtubuoaovpuW V6XWSmLGHpiD57Zl6auAvd Qq6wNMIwTNR1TPWepKEmA6 RlcE0jJtNw CRBqMHNkM4KvvXKxOQenK1 24BPpqKdJ8GTTmquVqM2Ib IQZmdNseWnT9y7Z9Tg8BJU ZdAO33HSM0 xGW0OI68AW64D5BnWslfeO FibGU+PHRhYmxlIHdpZHRo IHysOQCkSaEjqLspAU6cGf 9yZGVyLWNv jFccmMToBjBbh0uaXJGiBZ jkYT8mnKxkX5QotWV7VLNn w5c7Be24V09eQ1SaiWO+PG TrnDY3jWG1 kL7tKeShGpP0GAazH315Xl UcgEXvKuysa4quq8jdkNj2 XqM1QYRabxKqyEbnRQI7u9 EnNf31F97s IHdpZHRoPSIxNSUiIHZhbG ymno1dmC6rHp3+PGNvbCB3 tQG8wJ5rVgCaKaV0XVftQ2 49InRvcCIv Vivvs5crj0kjhQp8VuXuYR DtplHyrUtpSTM7v3RcGm64 W2PzkZsdj8VvKcr4ab11qK Wrd1O9eFB0 L7NnAIYktckygRInxHpvSX 7aZEByjhguNHMgeG1wVBVk U1x2UjSrWyX3EOoaH9Czur T8YQZcrXYy TFohDVO7J77zx5H6YVFlTV HaZDK8oZH1qY6bvThpndmz bGVmdDsgdmVydGljYWwtYW nmK196JXTo jYdqDRKnsA7fRBGwqGEiqG znBR9vKHFismciFlnDHKzl IEpBREEgTTwvdGQ+PHRkIH V4fNtjDTxk JRBvdT3mPPFtZ1g0YdGnLh X8CKkwK1NiBIXadcngTn17 vW4gPtGjSlK9OJcqA9Fike X9HOCwdBQh SOrmWVA4L82wm9S3XPQvLY OaHRE9pRK0nX2dtJjawpcf bGVmdDsgdmVydGljYWwtYW pgL150WCIw mWzaKiH5UdT2LlU2IOP3Y4 PaTaz5FIAdgXyhXU4oxQJx RLypTu5dmPtxzUmmZY1pWQ BpbjtwYWRk iV6zUKQcjLIpkNcoWT6vSS Rikiafe618WfOjEFS4IFUm vSWvZ2HbjZ9fHmQcWEJqDL PbA9OehPIo UOtiC156GOkjMcE9INSskc OqR0MzPNRdqEtuFeM7n4B8 Wd7tXXWCGSXjnpvgkXI+PH YfBBM0mAth OZbdMTXgnH1lAUBaX9e4Ar RtBrY8GKgsH8MkYAIrkqjx Am15lM1nEiMsMxH6YHixC9 JlajL5QQAs nRNoKHbyPIF8V62ch4M6XM BgVHRaEXO4uXI9fJ1iyIpk bjogbGVmdDsgdmVydGljYW zgVGqlH513 IHRvcDsnPkZlbWFsZTwvdG Q+LTQlWWE5kSydJZziZMTl bS0wESQkE3l8RqMgXrG9ML acF4QrJUKq yfghCe23fR4aRhQlHbH0CZ yfK1OwyhU2BWJcxKFxWJdv IGP8T17ib9X1QYFzJFNdZZ B5bDP8tD6h bGlnbjogbGVmdDsgdmVydG aeUIhhELilR971YVCgyRdx RlDgJBJgNG9smQdphKU+PC 56er48D6Tj VnzeLvk4IGTcQJB6zMF1bT 0fTPEdXRnyw3P0nDE9L2Xy slHebr5iw0mbUQDhEYqrQ9 8zsDNwf3C4 IYRihNP7NKOruPpvYjAvnJ 93Oyc+OFNgkJawu1KiSxvc u1zhg6aqnJd3EyCpQQMmvp FsaWduPSJ0 h3DmCk19G00kQLlzPWFbGQ YaOHRmSYIgvWsxcm9mvP9u Ii8+IRCbkKW1aKI0cJ7bTg EmAqP5WVna H231LdFvfJUtXzqmy5xtw0 emcBs1QcJwFMRaenFmwBgy ZLG0j0YhYk06G0FibLhha8 UdDre8eu94 xPXao3Y7wXJ9A9JaRLVwft rlmJVmiYxjGK9qUPLwosmi NKHzcH5yIQMiU4a2LwAhSo T8JFykK4Xf zdE2ZDJjlSRePNWppYAMbU 8lxrewy7xypevsEqIoVXZe SJz3TFt8BVXriJvjHdXfZJ J7MkH4LUG4 wWYvaQ8dbVongtenpD5hEt c+CIr3l9irnWJuVK1hpLY4 AL54OI33gXMtj6H3fOW1O3 BhZGRpbmct bprqzPH9IMNmZDYqsF60Uz 2bxZbjAc2yIBXuSIZ1MFCd rPIyY8CwmR7bRvNgZPUiVF TwD8SmxGLw XDtnN407XCcxNqK9ESPnds ZeA9ToJNWpzVqsGiK5p0S5 Le0RFB86TS86WM55uUYmi5 L6mJT4G7Tt RQZryfzkkkkpzQB7UDZmMG SesL30Qu9koXavMr7gKFSa XUQ9RNMxhUAoW9CndI6gSc AjMDAwMDAw X5RzxAVnWHfqH966KFxwXw U2DGVoqsAaZ9NfLRZtiMed NhO9b7F1Nz9MNg73EY05FJ 93vSJrg6K6 oSC3Z3SkRBAzvuxlittjtA G1FFCqTAXnhO89Lo5crAdv Gn8yXDDgNIG1HKVsbPWbB8 DzkK6aPtNy SEXgIOIrW3DqbLWyMLvuQ8 05UFncBjE1MJPdqaEaW0Pu CZDcqUomOwW8q5T8Ii6UPW kvuxu4E2Kn PjwvdHI+EV31TQMcOC43yZ FwiTYzc9ngjVn3QzKjOWKe VBD7cGgqHAvxa2PiMOPkN7 1zvAYph9C3 IGNv (more content not included)... Normal [facility] Consent for Treatmenton 08-14 Consent for Treatment [id number] 0CD:127 Normal [facility] Discharge Instructionson Discharge Instructions [id number]#1. 00CD:127 Normal [facility] ED Clinical Summaryon 2021 ED Clinical Summary [place] [id number] ED Clinical Summary Person Information Name: LEENA INTERIANO [facility] Age: 32 Years : 1990 Sex: Female Language: Sign Language PCP: BENTLEY LUCERO CNP Marital Status: Phone: [phone] Visit Id: Visit Reason: Sinus Pain/Congestion; Cough; [...] 08/29/2022 18:32:51 08/29/2022 18:32:51 08/29/2022 18:32:51 ADDRESS: [address] [place] [address] [phone] PHYS DOC NOTES: MEDICAL INFORMATION: Prescriptions Given: [...] up: With: Address: When: BENTLEY LUCERO [address] [place] [id number] [facility] ([employer] In 3 days 09/01/2022 Comments: Follow-up with your primary care provider in 3 to 5 days. If symptoms worsen, do not improve, or new symptoms arise please report back to emergency department for further evaluation. DIAGNOSIS: Bronchitis Normal [facility] ED Patient Education Noteon 08-29-2022 ED Patient [...] these instructions at home: Medicines ? Take jehz-cut-qadzseq and prescription medicines only as told by [...] and water are not available, use hand medical scheduler. ? Avoid contact with people who have [...] 10/08/2005 Document Revised: 07/14/2019 Document Reviewed: 02/18/2017 [email or web address] Patient Education ? 2019 [employer] Normal [facility] ED Patient Summaryon 022 ED Patient Summary [address] [address] Patient Discharge Instructions Person Information Name: LEENA INTERIANO Age: 32 Years Arrival Date: 08/29/2022 17:23:21 Discharge Diagnosis: Bronchitis Primary Care Physician: BENTLEY LUCERO CNP Provider Information Primary Provider: Kristopher Clemons DO Advanced Liner Man:None The exam and treatment you received in the Emergency Department were for an urgent problem and are not intended as complete care. It is important that you follow up with a doctor, nurse practitioner, or physician?s orthopaedic physician assistant for ongoing care. If your symptoms [...] With: Address: When: BENTLEY LUCERO [address] [place] [address] Business (1) In 3 days [...] opioids can be used to help relieve wolynrir-qe-zwifmz pain and are often prescribed following a [...] may be (more content not included)... Normal [facility] XR Chest 2 Viewson XR Chest 2 [...] MD, V. Transcribed by: MARÍA ELENA Technologist: [facility] Normal [facility] Covid-19 PCR (CVDTBH)on SARS-CoV-2 (COVID-19) RNA PARI+probe Ql (Unsp spec) Not detected Normal NOT DETECTED [facility] Comment on above: Result Comment: When diagnostic [...] for this test is supported by the [place] of Health and Human Service's declaration that [...] used). Performed By: #### C VDTB #### [facility] [address] [place] [address] Dr. Samm Hurtado ER URINE PROFILEon 2 Bilirubin Ql (U) Negative Normal NEGATIVE [facility] Comment on above: Performed By: #### U MICRO, PREGU, ERUR #### [facility] [address] [place] [address] Dr. Samm Hurtado Clarity (U) CLEAR Normal CLEAR [facility] Comment on above: Performed By: #### U MICRO, PREGU, ERUR #### [facility] [address] [place] [address] Dr. Samm Hurtado Color (U) YELLOW Normal YELLOW [facility] Comment on above: Performed By: #### U MICRO, PREGU, ERUR #### [facility] [address] [place] [address] Dr. Samm OVALLE A micrscopic examination will be performed if indicated. Normal [facility] Comment on above: Performed By: #### U MICRO, PREGU, ERUR #### [facility] [address] [place] [address] Dr. Samm Hurtado Glucose Ql (U) Negative Normal NEGATIVE [facility] Comment on above: Performed By: #### U MICRO, PREGU, ERUR #### [facility] [address] [place] [address] Dr. Samm Hurtado Hemoglobin Ql (U) LARGE Abnormal NEGATIVE [facility] Comment on above: Performed By: #### U MICRO, PREGU, ERUR #### [facility] [address] [place] [address] Dr. Yilan Hurtado Ketones Ql (U) 15 mg/dl Abnormal NEGATIVE [facility] Comment on above: Performed By: #### U MICRO, PREGU, ERUR #### [facility] [address] [place] [address] Dr. Samm Hurtado LEUKOCYTES Negative Normal NEGATIVE [facility] Comment on above: Performed By: #### U MICRO, PREGU, ERUR #### [facility] [address] [place] [address] Dr. Samm Hurtado Nitrite Ql (U) Negative Normal NEGATIVE [facility] Comment on above: Performed By: #### U MICRO, PREGU, ERUR #### [facility] [address] [place] [address] Dr. Samm Hurtado pH (U) 5.5 [pH] Normal 5-9 [facility] Comment on above: Performed By: #### U MICRO, PREGU, ERUR #### [facility] [address] [place] [address] Dr. Samm Hurtado SPEC GRAVITY >=1.030 Abnormal 1.005-<=1.02 5 [facility] Comment on above: Performed By: #### U MICRO, PREGU, ERUR #### [facility] [address] [place] [address] Dr. Samm Hurtado UA PROTEIN Negative Normal NEGATIVE/ TRACE [facility] Comment on above: Performed By: #### U MICRO, PREGU, ERUR #### [facility] [address] [place] [address] Dr. Samm Hurtado UR MICRO IND INDICATED Normal [facility] Comment on above: Performed By: #### U MICRO, PREGU, ERUR #### [facility] [address] [place] [address] Dr. Samm Hurtado Urobilinogen Qn (U) 0.2 {Edwin'U}/dL Normal 0.2 - 1. 0 [facility] Comment on above: Performed By: #### U MICRO, PREGU, ERUR #### [facility] [address] [place] [address] Dr. Samm Hurtado INFLUENZA A AND B AGon 08-20 INFLUANEGH SEE BELOW Normal [facility] Comment on above: Result Comment: Nega tive for Flu A protein angiten. Infection due to Flu A cannot be ruled out. Flu A angiten in the sample may be below the detection limit of the test. Performed By: #### I NFLUAB #### [facility] [address] [place] [address] Dr. Samm Hurtado INFLUBNEGH SEE BELOW Normal [facility] Comment on above: Result Comment: Nega tive for Flu B protein antigen. Infection due to Flu B cannot be ruled out. Flu B antigen in the sample may be below the detection limit of the test. Performed By: #### I NFLUAB #### [facility] [address] [place] [address] [address] Samm Hurtado INFLUENZA A AG Negative Normal NEGATIVE SEE COMMENT [facility] Comment on above: Performed By: #### I NFLUAB #### [facility] [address] [place] [address] Dr. Samm Hurtado INFLUENZA B AG Negative Normal NEGATIVE SEE COMMENT [facility] Comment on above: Performed By: #### I NFLUAB #### [facility] [address] [place] [address] [address] Samm Hurtado INTERNAL CONTROLS Within Normal Limits Normal Wi thin Normal Limits [facility] Comment on above: Performed By: #### I NFLUAB #### [facility] [address] [place] [address] Dr. Samm Hurtado URon 08-20-2022 , QUAL Negative Normal NEGATIVE [facility] Comment on above: Performed By: #### U MICRO, PREGU, ERUR #### [facility] [address] [place] [address] [address] Samm Hurtado URINE MICROSCOPIC ONLYon BACTERIA TRACE Abnormal NONE SEEN [facility] Comment on above: Performed By: #### U MICRO, PREGU, ERUR ####[facility] [id number] [place] [address]Dr. Samm Hurtado Bacteria identified Cx Nom (U) NOT INDICATED Normal [facility] Comment on above: Performed By: #### U MICRO, PREGU, ERUR ####[facility] [id number] [place] [address]Dr. Samm Hurtado CAST NONE SEEN Normal NONE SEEN [facility] Comment on above: Performed By: #### U MICRO, PREGU, ERUR ####[facility] [id number] [place] [id number]. Samm Hurtado Crystals LM Nom (Urine sed) NONE SEEN Normal NONE SEEN [facility] Comment on above: Performed By: #### U MICRO, PREGU, ERUR ####[facility] [id number] [place] [address]Dr. Samm Hurtado Epithelial cells LM Ql (Urine sed) RARE Normal NONE SEEN /RARE [facility] Comment on above: Performed By: #### U MICRO, PREGU, ERUR ####[facility] [id number] [place] [address]Dr. Samm Hurtado MUCOUS NONE SEEN Normal NONE SEEN [facility] Comment on above: Performed By: #### U MICRO, PREGU, ERUR ####[facility] [id number] [place] [address]Dr. Samm Hurtado RBC 5-10 Abnormal 0-2 [facility] Comment on above: Performed By: #### U MICRO, PREGU, ERUR ####[facility] [id number] [place] [address]Dr. Samm Hurtado WBC NONE SEEN Normal NONE SEEN [facility] Comment on above: Performed By: #### U MICRO, PREGU, ERUR ####[facility] [id number] [place] [address]Dr. Samm Hurtado Coding Summary.on 06-24-2022 Coding Summary. CD:[id number] Gh 0bWw+PGhlYWQ+PE2MHHZuQ 93leWKihK2LD1uAYL6CLBR ZOEDQLD9OUZ6eySS6TVjkK 2VybiAv LukupILrHU52ENh1GZR3qQ udSIyeuK3ccMTuE2f7UnHf OQ98pZ69GQqkEAPzYdJ2Hm ZpbjsgbWFy R9adThXfmIKdOyd+PHRhYm xlIHdpZHRoPScxMDAlJyBz vJacEW4iAl1sFCZdUSAnjU xhcHNlOiBj f9neFCUtUOqiWZ6paDqqM7 AmnSY9QCZaf5f2Vn76hRR+ OXJaJZZ9wObbBCunj056Vt Tvn6ehVPC9 eFSlFZnhCES6L46rc7O1CQ QyHVAlSDX7gVX7jP2znCys wmioQ5GbzSCuHkX5VHH0zJ JzwJ4qmWie sleimL0zGrm+D33SSJ5ZJW WQIW0HPjd4M3WiKgfmsLH+ FO20AMGoLQ35qZVoxAKrs9 zueEc5JbXq SQIuMKZ3hShlPJvjj1DaSH HoV09uyKTbj5Q3MBChcZre vJQmDxGqxHY4fV8rDZehqr mnu7wbvolh Qtycp0ikgw58sN41Y37jOH jrLZXoHQM8EWAsTJCwcUly td3urF2aRp6+WRhcc0ljn3 egvKa9HsIc TNApkgTwmQukDIP6y1DiUx 87M8BbeKmxy5RaSxe8zy79 iRFct3M9mCX1JMrjMSJytX 0xFXokAyZ2 MHEyOeEfiO83iLLfALrkOc 5ulSoakHwtGO7iYIMlcxvz GLXrkM2uBHKbiVWnuImgUK 4wNTBpbjtm h267ZlTiKHQ2TLKcxRMhC3 XsxV7lYoWkJLCjANOzR0Pb gHOcMYewD273NGffQfP1XX CcgmQuX5Ia UOJgqGqyOxO6d2H9Ty9Dc2 XhlvhxTOE2POcdUHLrMyLp XxIwRuF2J6HeSfj1AYDpoI hsEK1wG6Ml SJOrdyalklicaZE8LLOfLB AarK97wGGjRVjtMm2cj5C7 n007XAUgMLMhuE03Yb7mzF ogMTBwdCBU oA3mxwtkl4wsiufnVqOgKZ AaEVp4CVk8GUCfmNwhZpIy PJL7PsP4BFF0qEIcjE6guP mlxtacjG8x Oyc+Y50kzX3vDCL8KPZ2vn cwQZDmflVlCM27AF09M0Dl PjwvdGFibGU+PGRpdiBzdH csMX0oNtZm y2dkx8EqCQecD4YoBZHxWY caQob6IASaOKF5xBB2rA8o TRNoUFaaq7K8aDE5H2Olad Jwmg2el7yk OMKjWOksC14ulOJyx9U2QS TsiYR6JNHzuRcnJqMocI49 Oyc+LWAdmMesy4LkNqqyt3 dpj0nwbPh0 DpPuEXDvklPfxLncGPJ1b6 VdMd05R21hVZouQQNoPXBu IUBwMQLuqBqwxa2zzJ1gUc 8+PGNvbCB3 fHJ0jC2xQOBeByY9XTmdS1 74EyUjhWUeWbgze3bue2ck zWr9AsCsNEQrjnBuaTutVU C3t0XoZv42 Q53iYKtvRAXeHVPyPNQdNQ VqnXygkn5ktQ4qYf7+PC9j d5tlwa05iL83lPE+PHRkIH G0fYudHAxx MPYmvU6cZIdqYmM9HYSuCx BjrM00iWYsYBlgOh6ouYzu pXvoIA9gUWSxqcwdf301Ly Bcy2ygEELt uPCwTLrwNTB6N39ga4J8QW AnKCDtAVI0dUX1vW8mnSmf bjogbGVmdDsgdmVydGljYW qnXTwhM739 IHRvcDsnPlBhdGllbnQgTm KxINi7V5IxPut5LNLqgHxh ZU6lpTAyCBwhVs1ecKgbxR dsSH7bSJAz cnemj950QfEjh6pxNRZdnH MfDLflBTU6J08uc7H4HBIt CNZtDIU1zCI8xH6sgMxhjk ogbGVmdDsg wtAtqEcbTSapYXqwB029WB RvcDsnPkJpcnRoIERhdGU6 EM03WF85sOBjw5S7pKL0U8 BhZGRpbmct rwissBB0RWDuEFRnuU44Vn 5bkEzdKp0gCNKlOKK7QFVh kRQqQ0SmkP5yEdSsLFPdED UsM4UqsXYt QRlyX931KElvBoJ7TXZzoy DqN1ZqAYWciLngMjV2g1E3 Zz8VC0R3BZ60ZI14sDRvh4 O0eJJ8V0Cn OZGuusgniizknEQ3FFSeZN VcxZ64Tv6aqMccEn0yDZQl IJE8YXSatBGgG9GzvV9aZr AjMDAwMDAw E1TdwKJnZKrcM659FAypMg R2UDTsokToL1UqAWGhsVqn FyN0l1P7Jp3FFSw2HU17FQ 57vLHlx6P4 sZO4S8SwWMJqumnqvdmgvK Y0GRNfWSCohJ78Ou3tjCkp Rn1jOJDsTLC4OZDhhTAgL4 ArsT8yPaZs INLtKDDrX6AcxLYfZMznE7 31MUofEpF7AUPuxpVlU5Ds ZBBwkLipJwD3s4C1Yx3ZYU NdXA24KJQ0 qKY1SM25GR08E4DbTvyacN FibGU+PHRhYmxlIHdpZHRo XKqoXQGeQlLxnSfcDC9ySt 9yZGVyLWNv eLwgeIAfRxWoy3gtIORrEB hhKV4dcAdvF7OpwWR4ZFOc s0o6Ek59P28hM2QzuIR+PG PyqFB4cRA1 bX6fJsOmBtY1IKuaA244Xk EzrVOsCaccx2opf3rgjLh5 MeH6LVEfzuTcpUfuZXW1u5 LyHp06M80i IHdpZHRoPSIxNSUiIHZhbG tntq7djN4hRr7+PGNvbCB3 qFQ7uY9kYcJlGxV0LDcuB8 49InRvcCIv Otriu9unz1sxqZn2RtTeFO AbbtGdoGloAOW5o1AnTs88 S6VrrEpyf9IfFbd2rj61zW Zeq3Q9nXO7 D8ChXKLrzqygdHEdwRgwTZ 2jXLZtwmtsFEZxgF5dOOHh B8w1XfFtVdO6KVweR8Urzp C6RYVhuLBi QKidFTR8G25ke9Y5BXFqRD TlXPY8tJE0iO9thChdpamr bGVmdDsgdmVydGljYWwtYW stM713BJHj kKhbEJXdtP3jJAPdwZSlsG itDY9eNYHspvzrGtaUNFxz IEpBREEgTTwvdGQ+PHRkIH N1tPhwPXdv QPJmjG1rWSMfN6e9NgYzVv N1EWnwH9XdYIHydwufGu12 tO1rKfBbRqH1MRmuD5Xaeq E3DEXmhNKy EFwuQBW9U22ik0J7PEGrQH JtTTH1iSE7vV3hxJuawbcd bGVmdDsgdmVydGljYWwtYW taW502QXVo aExkDnQ3QlC4QtO0CCP3T4 BjWez2VMFwqZlvZP7gjSSy JEemIt2ijRknuAgvXM9sIO BpbjtwYWRk eK2nWYUuyADhnLicIP5jKZ Rwwtafd917WnIhGUS2KUQv iCDuV6AfbI4dLcEhDHKjTX DwP6HtwAQx WTntE912VZszOjR7XHWmly ZlM7CcKAWfbBnqVuO6g4T7 Js7pVTWMMZLgwsgzgIS+PH QoLXO0hAtg ZFykFAOrsF2eDAExE3s2Dv RpXbO1VNhaJ6SeGOUmtwnu Xk58rB5oJnSwIqS1XYevW6 MbobX2XFHi cLFzEKnhPHT9B69yq9T9SO DxHDHoDWS0zBY2jC3pkLox bjogbGVmdDsgdmVydGljYW pgKNdjT078 IHRvcDsnPkZlbWFsZTwvdG Q+EXBdGCA0qZgnPPdfFOIh lX6yNXEgD9s5YnFpZbP5TM zgG0HlQMXc wzhoMj68lY6yKqMnKgG8UU zwW6XvrcD9YCRifGLrZDeo VZF0Z51yu0G5UTEnCEQbNW K3vBA9hP8f bGlnbjogbGVmdDsgdmVydG zmQOcuJTkaH012RUPeaNfs RuZrWSErFW0xdXftmZQ+PC 98bx16K7Iv EfusUtw9ADTrMOF4fNT3rS 2lMWCrYLuqq8L8mFX6Y2Qa rdNmig9uz3umUJDiIGeiG1 8igHQrs8O0 HXWwjWZ9QSXeyXuaGzLnlZ 93Oyc+AMClkAwyz5KhBswe i1rpb9gvpPg3PnSdXKTnuu FsaWduPSJ0 n1DsTc52Z31qBDolEUWkKB MdISTtXOUuiZxshc3vaP1h Ii8+NKKapHD9zYQ2eX2kJp OfXkE7XSgn B085PwYxtDElYjjxg1fcx5 qryGu7ShWzZUJtmqMjzZis JJF0b3WbKn57F2BrfVgwz4 TfSic6ti11 uHBai9C3fMQ3T3UzCRXjcg endUGpbXrmBI8eGLKjlxgm BRUerC6bLMEqT4x8OeCqAu K7XCnkT6If gvF1KOVpoZHdZUFrjNRFlN 6kviyrr6ygelmoSeWtBOAw LUy0IWg6AIEzfTarMpUzHZ X9AtR6DOK2 eFJxfY6fpPkdrxxqfP0qPy c+BFh5b0tacTCzMH8zzHG3 JD87ZI89oECqw6U6vVK3H3 BhZGRpbmct lozpkPJ9PEGxNZDmxP10Rm 1twYxlNp4bAREpNUS8PAEd gXYcH3OzdJ1fNxXwHMGtOK YyN2ChqHGu BTtaT157PTuyDfL6GPNwoo HeK2UmSLSchKuvZnC8t3E9 Ke0KAV89UL05MN45nVQot4 T2jJJ4P4Pz ZOSvmtmpolgyrLM8TFFhEW BcfV48Yp6hjQqyOp6gOKOs QIC7TCEupOYeO0SanO5kEg AjMDAwMDAw X2NocUMcMLqqB544FThuSq P3IMQpgkZxB2JjMEXhfOli IwI4s0G1Iv2SHe74JH16SI 55qFSmd8W4 tZV2K8FuDPJtdvardzzxwD G0PIFpJPRlcR29Ji2msCka Im5eZYOrMXO2OCYydIYyG9 RguJ5mTiYf BKApXXJuO6XfpUVhVPrmY0 47CLrpDeM9BYSecjWgN9Mv QYCkoCmoAwU8t6J4Iy7KBK oscpc5H1Pv PjwvdHI+BR16RDSvPF66fX YncKRvw3dbrPm6PhFrLVWt KFY0cZmqVUofe3JxFIKtL2 5rvBVon4K9 IGNv (more content not included)... Normal [facility] Coding Summary. CD:[id number]:[id number] Gh 0bWw+PGhlYWQ+HM0MHPXhJ 93cvMHdwE3SE5eCHF9EONB JXHXSLW2HVL7ovEP3SRlwG 2VybiAv PjktyGBmAO39KKb4MPC0kT fdTRrfrY4ecTAsO7o7DcJk RC67lB85RPlcJHMkHyC4On ZpbjsgbWFy L2xaNdOspMXzMre+PHRhYm xlIHdpZHRoPScxMDAlJyBz oVmyDP5tQz5qHVItPKSdbV xhcHNlOiBj f5beCSBnFPccWC0ymDomG6 GhvVC5KESfa7s3Yp43pTG+ KNAyDGS4eJjqXZirb427Rd Gae8alTAO5 sGZuMFkdPWE1D67rd2I5EP FnXVIkGOO7bJQ9kK0rdTfo izviB8XrdXNqMsE2YTA4oE VvoQ2eeCtb jopscQ6vGoa+S21NTG9EGP MRWW0UOzb2U9RrTxlfkOI+ HO35GEWqWD17dZAmaFBwk1 kwnTt6JpIj LXEpYOH7gRzrKGrpw2KqDW RqM93skMTrr1I5MDSizKir uKEpNfVlaWP8zU0bSKegim ojt4mexwxx Ahbhp7omge49sU70T56sGC nlJXMlXYC5VKZtCBJczJgm cu3guX8fWy9+KPwyr0fkn0 qodFx1IfPk QEMgszStbYbjBNM0o7SuXd 39V3YbnQazh5TwJlc5ha94 yGKzr7M0zBE3HRfcWMNhjA 8sZZemVjN1 NDAeGtHnwK35gWThBMyfRa 2usIsctHqqRH7dOXEudjzt NDAprM3uAYWyzFQgxDplGE 4wNTBpbjtm m071HtRcHHH7KWHfaYYqO6 EqhQ2jLrVsSQObFSSaI0Lt bXXpRWhjN851XWzmDrY1EY GtyfJzD8Qf TACpqJrtBtE6q2X4Tj9Fr4 TelakjOMS0ZBplMRNzRhCk IfEoVwZ5I2KwBqr3BZMkwQ vsMQ7rO8Vv KDOifmypnajlxNR6ITUgTR BdkN19rBNtAXbbYu2or4W5 h361OQCaRQWunG21Gz7epN ogMTBwdCBU kS9izgwzv2ptxrtzLtJdWM IkVPt3IFm5NGCmrKrcHlLc FKA8ThB8PGL0pBPxfQ3suE crwzouzR9u Oyc+W61fdM1zJQM8DIJ6em pnMHGthsAmNA90KR65P7Wa PjwvdGFibGU+PGRpdiBzdH vzQQ5yGjUt y4hvd8EeUXihX6OzNRXwHI iaGmq4HVBfJRW9rYV7bB3k AGOfJCxct2I0yLS9A3Dhso Bdco0sb1jr ETSzDVmjA47goPOzp1J9JC YokFV2UVUteLhaIvVpnG89 Oyc+TPHhjRpvm7KtHwmef3 cyh5nbeBw3 FdDsEJMrkiAmpUwqYNC9s5 FuKh31U68zZLfpCGHxDFGv WXPdXLCujMeazx8hjR7uVd 8+PGNvbCB3 kOL8qG5oWTPwYwK5DWrpG1 93QiJucGMyEyzgu2vjr9js wZu5HeZrAHEadxAxwJubPF H9h3KtGe45 H51hKUvhXTZxWEHdBNEnZN NtkVfedm8toQ3oUa2+PC9j v7dnhe51dD70jWH+PHRkIH O5wQrxZDvz YDNskK8uKJgwQtU9MERcYh BvsG80nKDgESyhEx2zqNin lXthFM3iTIDopyhkm972Mf Fgd7pgFCMb nWVgQTklVUC1J91uj1J5GX XlLUBgEYP0yTQ2nG5dyIyf bjogbGVmdDsgdmVydGljYW lhRXkuM840 IHRvcDsnPlBhdGllbnQgTm SeDYg9J1PpFrr6IFJxhSjj WC5rmIXfTKtwZa4tjWsscO okMY3aJGCq xsjtl489KrOti2sdWLZxpQ SmVAzpXVU3P85ko1K8DCWx HYMtHLA1aTH6uD7niFtegb ogbGVmdDsg brFugUazJQkdGMmbY414NR RvcDsnPkJpcnRoIERhdGU6 QT28SV85kMMni4U9wBU1S8 BhZGRpbmct dipeaXD0XUGtKVSwdP38Oi 5rxIeeRb8eQVFbRCX4QEUv yPQoE4PnfZ0lZoEjYSLyEK TcN5PhlJQh HRflB598MJtqJvS7GOGbhs AaW1CcXTWvzNcqZbV2i2Y7 Qm3YW1X8SG70XL72aXJvl1 C0vTQ1B0Vz VOKkwfhcmzunzOL7YUJuWE YuuF18Pq4ybBgcOt7pPSQr NHQ9LGKetMJfA3JifE1uUw AjMDAwMDAw S1CgqRSbJIfbG709MXkxVt B1XOUmwdXhH5QmWONapChn GtG7h1J7Hj8ILOk2EE86VY 37kEBnm1C9 fXQ4B6MnNSZevhjbjiwoxQ G8MEWeFZExwI86Mm0mnEyu Fi5hJFZkXCH6DQUleXNiE1 YyvA7fNhFt NAFjQUEkM9JhrCMqGIwyU9 73PEshLnW7OSKyjxWyC7Xq NEHkcEieFuR4g8M4Lv0YQQ PcMX06AUK0 rZB1NH00VV84A5XoRorscQ FibGU+PHRhYmxlIHdpZHRo JIlpOSPrRkVdmGqjJS8yOf 9yZGVyLWNv zMoqnYMwBlMod3klKZEpQR esQQ4hbZclK5WsnHC7NIRu f5h8Ee83B47fE8BkwVA+PG LcaOW6tPJ8 fX0kVfIcUqJ0PYdkP960Hc TimOLnLzdfb8ynd4zqbLl1 TlK5MTBoygKwrUvzMQH7i3 QnWe23B66r IHdpZHRoPSIxNSUiIHZhbG azjt5xrA8iGe0+PGNvbCB3 hTU1iJ3nAyYuIcF8GFamS3 49InRvcCIv Soiln4iux8fhbVf9ObUxYK UnwuOroHpwOZG7h5RjUl25 M8JemLiuh0WuQuw0mf95lT Wkg0E4iYS1 J6ZiGVEanyybvOVwqFhcMF 7kGZQarwblAILaoA0pYLMs R4p3VbFvCvO7HGeeQ9Xchk B9GUPomXTz FGgcWDY7C49ea2Q8YDBbRX AeFTD5qNJ8mQ8gxDsuibqo bGVmdDsgdmVydGljYWwtYW thF313NNRs oKsuWKRlvP5rQLIolCPgqX hmWK1uPBMjtpqqYuoTAZml IEpBREEgTTwvdGQ+PHRkIH K6yGnyFFap NBIimD8oXZGeS1x2JbYlGz B0WJbvN0EcXDAcnvnlLt34 sE9kYwGhJsM0ZFakY0Ugxz W8UMQgvJOc AIndHAB3V98ft3L4WCWdVG DdBAF3tZL2gE0ngWanthac bGVmdDsgdmVydGljYWwtYW zlY984VDCf zAovErY0BeY0JkE7BJB6V4 KjCze2RSOqmJyuEL2wzTXu IXngJh5jyMumpWhmRS4wNC BpbjtwYWRk fZ9lFDOocFYujLbdWM6zMD Uekjnls177FyThTEG2NERh cNLjC9ArzL0dRtBeZOZoFU VwW0EvwBYn ZGdqI644MIlkWwR9RZEfef LdY4NoSBDmpHgzGzH6f6X2 Yp1oAPUIXYRuuxeyiCQ+PH SeOFV7nJpr CZmsGYLwsH4jLHBuG0l5Mn WdYqU0RRznG7NmLKQxmzcy Bc01uJ0iJuGmQkS2EJwqO8 GcouO9TJLi pDGtQTkoKCV9F16mh7R7GP YeIJKoBYB4cEH4gU1azUho bjogbGVmdDsgdmVydGljYW avWJwpP869 IHRvcDsnPkZlbWFsZTwvdG Q+QOLqXTV7kSexMJqxSSHr dH1tNMRbG8t2NoCeSzC9WR tmB5TyIKJh gqnuKh01gA9zGdEiYzG8YD yhD9MxcvC9GIVmkKOjQSjy DQZ8S01dy3P2PIVsXUStEF Q0cNR0oB8s bGlnbjogbGVmdDsgdmVydG caQCwcEHwoN084WARhzYdl EtLpJYGtTJ4jzGkyeJW+PC 21nm82O1Wj VruwVyu4NJXeAIN7oGR9sQ 6rFDBdFHwib8P6aQF9Y5Ap zzZbcx8mr9kqRTYyFIizZ0 2axJAof4I5 QLNkxRG0TDHkuWocXmNtdM 93Oyc+XJTygCrat1LdPibj d1qpm8krfEz4BhTzJOUovz FsaWduPSJ0 k0UpNv38N11sZRkgQKRhBD GdWCPrFWRdqWvezk5wvD4y Ii8+YXVxvBJ0cUQ9xY0eAi FuIqS8SHdc N073NbBalODeWtolw9koe5 tajVw9UuEdQCBakoOvnAlc MDB3i9MxUj39O8TueTuuy3 ThBif3pp21 xAWui9F9oRV3H8SpFPAwfz fezYKicZecCQ5sFJSymckd IQKovS4vYFFuJ9k3MoBvUm F6DZncG1Kg stF8HEPrtBOuTZQyjOIAsU 6xkrpwr8ldmcngIcHuOHLv PJt6AHy4NRWgxTttNjOpOC R4OmZ5ORQ9 aECyaE8evEwlyvznmZ1iHq c+NBn4g7pqjYAjSZ8ebTR9 RR29DC98fDUgw9D3eAC0W4 BhZGRpbmct efwnwEP4TWLnKFIrhA36Iu 5slOnmLm9yPIScZFT0ILRb lQPhI7YhnQ5jLuBtNMUdYJ MiL0FqqESv CXppH722FDnrGaX5DIFyke CbE1BfUOUhrOduMbO9o5L4 Fi7HXL51GU53RQ26aVLwq7 Z4nXD2N7Yn COLsbbulbpcnbFS0FXCzSH BbcL48Gs3dcHxvEk9fQYTe WCK2XJJudNAuO4DdsP1yXq AjMDAwMDAw Q3KqkMJxYBwoW445NXsqSk M7JIXbnoIqP7YjZCRfjUuc GuN9w7B9Md0DEk51LA40AE 40lGGlk0E9 zIX2V5MnWTUrizodvmquuI G5RYGnZAAhmT80Wm7qjRqh Ok8jQCUtKWQ0CFTjfKWwO1 CpjX7jQxPf QPIoPWShK5TojKQpMYelN0 80QBsuMlF4OOEgwpOiC4Ke OEDvlAbcYiA3b5R4Bn0UPT sgfka4D5Wu PjwvdHI+PH57HWJvLD36nW PwvAQix4kgrAi6IlUgQRNb FAO8tZunWRofk8MjDZZrD3 3zyVJnh8E7 IGNv (more content not included)... [facility] Coding Summary. CD:[id number]:[id number] Gh 0bWw+PGhlYWQ+XE6PMWYjY 06hpCUkjP2SB5zIPK1MGRX HXDFALA5BGW1fvWX0FSgcF 2VybiAv SiybnEOeYV29SZq5BEQ8xS obGOcqfV1lmTRxF7b1FlHu XI08mM57FWibUSWbPiT2Ql ZpbjsgbWFy P4zwIiXgxYByFsa+PHRhYm xlIHdpZHRoPScxMDAlJyBz uOlbQL7eHc1wETNdZQXuqR xhcHNlOiBj c8ubREYmFQgiXM6svDeyR3 GuaYJ5DPSdb3s9Ky02dBJ+ JFRoROV6qXyqGChij300Ab Mbs3rjBPU7 kWJxPUaqMUX5I57fk9M4PZ FgASWfUNJ6lZS4hG3hpCrv xfjbF1TcyMKlNiV6ROV9fO JcpN1xePam ozanmN7kIts+U00LDH4XEK OBOC7XHka6J3FyXzutkJU+ ST39FTDtPF73qJRbiAKxl6 tbqAm1HkNa ZVNjGBZ5fCkbKKbqi2WeHE DpI36zdTKch6S0HFRxuJpf vUXhNrHunEI6tB5zXIfvso shc5obingv Gmadh8rucx53gW20C03ePV rgDWVgEUN5PVVeEZNkjMnx ob4ygU2tSh6+QRavs5tfj3 uinRg1HgIe JDFecjCghCpcJMK0h1HuEv 53P0CytZxrh8TuRqr9fw89 kRBtw0A5mJM9CLclHZVzkT 9sBGquCmM8 WHCpIpUbtU08zAVnDKucUq 9cdLjkkZovGS3tJZPaerju OKAcdJ9aXEDawMOpvSgtGA 4wNTBpbjtm w218EcSkOJW1QSEhuSApR9 OquU6zXyXfNHZcNJZhM2Ur rSJbTOtlT049NIadTzN3CJ YmgnDxF6Mv QEZpxOeyOdR6g6S1Bf6Cp7 VfwjedWBJ7NPfaSBWkLfIb SkWzGqL2X0JzYfs5AIZucT eoBB8aG4Bw IXZnmjhdfyqgfHJ9APFgNL EahQ93kZVfTEnkWc2ht0L2 l628ZIEmUHEdrC64Td2yeH ogMTBwdCBU zW0rdboso9idtphgGdDiAB NfHFu1WXy1KBYrnGdjHaYa RRT2HsJ8YFO5yOKhqB5yfR myanujrC6b Oyc+T70eyF5tFVO0VVA0nc drGKQndaXiVQ60BK53O9Mx PjwvdGFibGU+PGRpdiBzdH tmKI9sUiFm w6rre1XxNUasS7UoCDNaQX euVoo0ENDbEXF2pGJ4uV6x GUKcBSddd5A7sVP0P8Dway Mbvo4yi7fy POXlYQnhS51kaDWyi3A3LD YhnFQ6ZHAtmQmyVxWqtW50 Oyc+TMHasSmwd6EgHncfz9 ebc2qsaZe0 WgCnSQUexwKvvYewVIK9j0 JjCu64Y78yDKupVCRcNSBt XVAfQXCfaPlvjr1wpV1wJa 8+PGNvbCB3 jWQ1gW5zOBVuWaU5LIcjM5 28QlClkKJhEfumw9gsh3ay xVx3UeCgRABhnqUmlShxRV K4a3NcKq60 K90xTMijVNAzDKQhSHRtLZ SewBxpbl2eoN8vZo1+PC9j m7qrnn32vB49xEA+PHRkIH Z8eAopUQkg YXXyrC7zIBtrGyY2SQVsCd RluJ72lZJyWTceZa2geVvq hSbxTZ7fSESicqvag160Mw Zto8xmUMMr pFYgIWxnOMG6U55wh9U6PN LcTVAfVFJ0qMZ0tW1atJfj bjogbGVmdDsgdmVydGljYW urPHutR811 IHRvcDsnPlBhdGllbnQgTm IeOHg2C2PuFyt3QHProFdi CQ7evYIaORgrFl6ulGexhA fiDT5rRMLk eeayl677IrHru8caERVtyG IbFDqyMZM0H52ab1B6CMWu ZBVqZFC3qCJ3zK6xuNmbtm ogbGVmdDsg kvLkuKqwCKclJHkfW145VY RvcDsnPkJpcnRoIERhdGU6 MT91ZH43hZNlc3Z1wAR2A4 BhZGRpbmct eakfdNF8NTSmKMPrbB53Am 7jbXnaZt1eDEImDTS8SMCc lOOeD7AdrH8pAmDgAHIxUL WvI0CkuYDr MJcmG932ULrjHjC6BJGxwr MwR4QsHKRvfCpvEdB7s9C1 Lo4MU0T8AL18CP90mZTft1 D4uEX5J0Uh MOTzfnnmlszoiOW5YUHmDD BauO60Cy3jvCcmVl4lQNXc JZY5ZEFcdWRcJ2ArtW1mRm AjMDAwMDAw A6DshMPzVUkdI400IHxdTu L3IEJzqzBdU3YfDRUzoDqu EaO9z1J3Ok8LJOu5RW03YC 41wCRzf2O0 tPA9L7JpQAIkixnyfcyufJ A6WIRwAKEatO16Mf2ncXbm Ji5lUIZzHEY9NLJcnPFlK7 KbmA8tHmBe PGHsVDPmQ7UtjKRjLCthM1 29ZHmzMzY6SNJvnzArU3Dh HYPxmFewPwY4x2N2Hk5GXP PvJB54VFH1 nXT3UX04LT32R2NmGwxtpM FibGU+PHRhYmxlIHdpZHRo EDrpZVTtAmYtcUddEB6tFi 9yZGVyLWNv oScxhACbVmCga2vpGRAdUY biCW9siUnrQ5PhwOB2VCPx p0a7Ae83S42uU4DefMN+PG MfxBR0iPQ6 tK4sNpXjAxI8RBjlR678If BhoXEqSsiip4lya8rtkYm1 CwV8GAKxvyGjvNxqEWV2j8 VcNt69A96e IHdpZHRoPSIxNSUiIHZhbG umil7swG3kCr0+PGNvbCB3 kZB7zA6nTpQzGoO2VRarW9 49InRvcCIv Rxxua2hhr3hheOd2WqErSI JawoOqjDrkPUW0u5KdLs67 L8EkrOrkl3HtDds9ot51sX Qsm8S2mQN9 E7JzDJJtjjuwiEKlgDzlRO 1uYMPmcajoANKihU0pOYKf I9y6LmUjOnT5WWnmS2Zxzl O2EVSohTBl VLzsLRO8U05bj9R0FNTrLL KdXRT6qHE3vB5ndKtiszpg bGVmdDsgdmVydGljYWwtYW usO415WOLb gLedGCJyoN2pXRWgfVGkyF tnMU8nIIMhsmcvIpeYKTzi IEpBREEgTTwvdGQ+PHRkIH D1uJnnAQnf WOPaxW3gGLXkE7p4YuBtOk M7RBrxR6FtCBJszuolZo91 rN7dEdZcHoW9LBbbY4Tazl D7YXJkvQRy RRdnTBH0B71wm8P3ZNYyAM CtEFQ9cVZ2vB6snQwgnaer bGVmdDsgdmVydGljYWwtYW bbU014BMTg dEtbHkR9MpL5BiY7WAB7Y2 LfGra7LPQvgMilUH8juMGb WVjhPr0rmYgzbTgkAQ5kSH BpbjtwYWRk gD1nKHGwfNNqqMafPP6eAZ Pxwhyld132HpFwOFD0DFYi mYIzE0UudV9vHbFmGTPoQG TcA5DaaCRi ZDseB786PUzkHsP6AQPrtj XjI0TdFOCfpBjsEiC6f6E0 Lj5gJMRGKLWzzkhunCP+PH ViUOS6kRux GEnpLSDvtE0rDMUeT0a7Er HzHiM9SOnkT8TaNSIbasbr Iw33aR3zQuQzLwL7ODgmD0 FpdpH9COOr yNQfKSzjUZC5U94bt6H1GV QxWDQiBAN3uLA3eG4tdHng bjogbGVmdDsgdmVydGljYW urOPoxO636 IHRvcDsnPkZlbWFsZTwvdG Q+INUiQKP1zQpiHHspELMs jZ5sWSNnI5o1GmXkEfJ9VT poC0DsZNGr wgavXq77lI5eEpHxKhX1SO uzJ4HfgoE7BJUadPYmGLxs DLH4K82pe8N4KVToQXFsMT J7sQZ9lW7k bGlnbjogbGVmdDsgdmVydG nzYXzeVQicK948LATdcExf LfOrLYMlDS0ulVegkXF+PC 81ps21V2Lx RlzcCmy7GYMbSDJ5cZU0yY 5rWMQjJIspm1G9lFA2E1Zo mvScsw2rx9rlQQRqERkdT2 2sqPHbw5X6 ZRLeeON6QDLhrMtsUoXurS 93Oyc+XOEjiWsha1FeKtio h3peb9sbfDc2WfLpVLKirf FsaWduPSJ0 l4VxQw54O95xRFccRQGwGI AgOUVuMWAelJsafq7nxH1c Ii8+MOOoyYF5qJI1aU5kSx FvCvW6UKmq I540LeAauCOyIoacy4swg1 repKc4EhBxERKyxpVckXmb OHT2l1ZfQp64B6VdbGyeq4 YdChy9om76 fEVmx5P9zBD7N6XcHINtik kpmWDwqQiuHG9uJQUsohbe HJObnN0yMYHiM6r4MpZgDk B0GJovB0Yp yrX5CCZscOQpCLOcyGQRxG 8ldbugj9xssqscTvXsAQNy WDc1HDx8QLAybVqrWbHbRD T5HtL9LRZ3 qLUrjH8mdFqkjhtbqV1sBd c+PPh1w0xtjVQpNN5grLB1 WL85DV45lZVsl8C8wOS6S2 BhZGRpbmct jmabrGY9ULBlNMTqbG18Db 2lmBttQr2yEWKqXQM3WRRl nAXxY5LusL1eJrRmCASkOI KvI7YldXEg IMrmK084YMeoFpO9LXTjba YuF7MxSQZowPufBqK6f8B2 Av7EKV03PJ33JE11kTVau0 I3hKI5E5Fo DTHkzozkdaurkCP8CNPcRP ZheD32Sc7jtGvvMo2uLBEb FWQ3DHIhnMFsU0PahU8dOk AjMDAwMDAw T1XulXFmXQurU762LFuiLs L4WADtekIoV3EyCSEymEpr TtJ8g0F0Lc4UHk89IL20VM 59yBIka2K2 fTF2E6CoJBZzxnxhjuuzyM W3ETKbXLEsgW98Gv6odMoi Sy3qQAMpGHZ1BLCpzZXwG1 AvzR0cOlDp VEQvZLSlB7CllZJoSWnjU0 36UKobTeE8UNUwriGpW1Zb GHQvoAbmCgU4h1K4Ns8ASL errhd1T1Zt PjwvdHI+NL59FURvYC77mV GgwCWed0sbqQc6SuZlZCYq RFW5tKryKXtpz7VyJFVfX5 4msSSir7U9 IGNv (more content not included)... Normal [facility] Coding Summary. CD:[id number]:[id number] Gh 0bWw+PGhlYWQ+YA7QTIJaE 93joBQmfA4GE2tNGL8ICBS WNURFQI3RGK6xcBJ5ZNxjK 2VybiAv MhcxbIZyMA98RUc2OGW5zI jqCVvqnI2tuCAvF4n6XgXf NK26hT89QQqqFXLrOjQ1Lf ZpbjsgbWFy X3kuYlBssBQoOqy+PHRhYm xlIHdpZHRoPScxMDAlJyBz fKqpPY7jBr2mXYSaFTLdqJ xhcHNlOiBj g4uuFTRyUDfwNZ8dnBkoR4 LcyUH8NLDnu3u0Zo83zIQ+ WEAeBXH7zUrkKUktr302Bd Ihk5tdHLL3 bOLcMLobTQA5P40qy3B8BS NeWAEmUYG5nAW2kE6cxLzh jltnJ0SbzEUiEeK1XAL2kZ RlrN2vtAen vgdneD4tAfk+M57MFZ1PKB IBEN8HIiw7B7GwCtyrpMS+ DG03GFDlLZ16vEMysRRzn1 cmgEd9LyKl ASQkYAJ2rZwgKZgdm4VeAI AyY40tgQSiu1I2DHOpiCjv hWVcQkBdzAB5gY5oMVkwnt djg1rzxxwx Olgrp3iolf47sG18X00rDH tkOVOuJIA3MJTpPTOfjDcl ci9awU3kKq3+UGkux8ngj1 uoxMg2JwNx SGUffaKeaRabZLR1y3CzRr 19A3AymPuxs0DiGgp9vo58 pTDjr1B4uOH7VNugQFGpjP 1uBTnnAqP2 LCJcBtQsjR21zUAuJYeqGk 7xxNtklNlxNT4vWTQhpfhm YZWmxV5gLWAlbVQbtYtwYD 4wNTBpbjtm l014RvRbMZH3WWTobMFzD8 BxoX6rGjMuAZKfCMCrG0Io iFRpTSorA409YPefFtR1JR XdbnQuJ1Wa KNObbZaxVcL0r7O2Fb2Ea4 BtlovmJFB6PGvvHQXnKxLj WoGmVkH7S1ZtUhy0FVAyxR xmNO4uI0Lo KBEskspjyetelAM8MWPrAD FasG70rWOoNPfcGm0tg8L8 s999HZRdAYKavX80Fy7noY ogMTBwdCBU bN6dshjnu0dnilreBmTeJJ XnWHy5UKt3PAGpjQrbBxGp IEN1RzM3UOU4bQLgyR4lyR gatiyxnG5t Oyc+S47dbG5sWCI6ZQH8xc gzDQCwwlUjZY65MI68N3Xb PjwvdGFibGU+PGRpdiBzdH dyAV4nNdDa b7esr6QsEUnlC4AoINJhRN oiAfv7ZOFrQCV4jWN1oI8x YSFsBNqed4T9mHV8U8Yajh Oref0aj5rf HURzZAbrL73fwURew5F6FK EjeEQ9OVSvjLjeAkYtjM00 Oyc+PJVvwIytr8LiHotcv4 lei9goxWn8 RxYiJTLmtjNolCkfSJW4v8 ClQj16G32rYYwmXKQbMDLv WVSvKYSigHvdqo7aiC5aWr 8+PGNvbCB3 mWS2oO6eNYRrNhZ0WJnhN4 93YvEsyBWbHkuzg8eim6rb zRz2HpSiCYSneaJmcJchEB N3o5DbCp63 H82nXOtfHANpNWZxIKQpCQ OrbQxnez2klE8tWh9+PC9j t0ksgg71nY27aPE+PHRkIH Y2wDamAXvq BCYljH6dSWinHkU6EMBiHf LtuM53lYYcGIfpBk7myTwt oQqaMM7bJHWxquoyt494Cu Fub5ryEHAp cWUcXZwlMVK4X47vy2L9QP OnNLQaPZH6zBU2hU3gfZyq bjogbGVmdDsgdmVydGljYW rfYVyrS242 IHRvcDsnPlBhdGllbnQgTm VoWUx0I1OyLuf2MBDinKan UW2jcYKsHGkpKx8vxPqgaR hbGZ1aHFXd jkiww776DlAgz7ynQFWrpH VvTVmiITS5N03la1S0MDXc JIBcDVW0rSO4rS4cqFiyfl ogbGVmdDsg iiMhcDukFXehJUqrY193WC RvcDsnPkJpcnRoIERhdGU6 PZ06SI22sPHih7G9dWH0M5 BhZGRpbmct dlwqrNK9JFTqJOCugO11Gs 0mfZruAu4iOCQxGFV8MQXk uFQtZ9ObzN5aHuGpAWDvYZ KjF6CfxSEf PWbvW531IYbyWlM2BISjoh OxB6JyYOWooQodBfH9t1P7 Pl6VE5P4LH84IU37sOYqx2 U8wOC6T6Mq ENFkvmnmuvzexIH2JACkCU HirI32Ud9xoSctOw4yVIRg DST8MJMxwDRdT6AjjT9rRe AjMDAwMDAw Y1HpuSJfQOosM606TLnfMz P4FZMugzOnQ9IrHOJpcUlp DsI0l9F9St0LAUc8RQ42WL 20hZFog2E6 kSU9X4FmTYJqhwbxgyhdnO Q7RKTtMAAurK06Mg7zbKkd Vm8gJABuXMU3HQHliYJsI7 XdzZ6eIqSt VDVuTUMaL3IciIHqQTdbW4 82VHioYjC3EGNvssNcY9Zv EEArqTynAjZ9p1F3Pp7STE DpXE19BOU4 vVB6HB03BX69J5MiFyxptE FibGU+PHRhYmxlIHdpZHRo XUszLRMxLlApeHzmWR2cUi 9yZGVyLWNv dTvxvQFlTtFub7mvISGpUO kdKM5pePdqH2AjgVF3NDHk l2z0Mm90A83hV4FooZX+PG QpyWL7zCT0 cE0rDmYpQaW8IVxrG424Iy PjhFDwDprvv6iuc9kwyNm7 KtB8WLQjgiUlvZgzBSH6f9 YwNh02S31j IHdpZHRoPSIxNSUiIHZhbG uysu5xyV2rFz1+PGNvbCB3 mBL2eU7hFmYvFgM3MNpdY7 49InRvcCIv Fdpcs0wpq8njqBh3WgIzUP EsgiJrbCudKIK8z3WdXx42 X8YbdZhrg2XpWpk5bc00vN Obb5H5oUB4 Q1ZiCOOyjjrdbBUivXtcCJ 1xTLOeuxhfJYJtlA7qSHOn M0r0HxXzYoP7SKytJ6Xehi J9PEAetTJf IVreXJF8C04ow8Q5JUKxRE BxEVY4eNA3uI9pfWabntsk bGVmdDsgdmVydGljYWwtYW rmU965GZHh yNfoEVAwzH7cRMDejUCmdN bpUS1fRIFiekfpCjjUBEzj IEpBREEgTTwvdGQ+PHRkIH Y9uUrrGZpz TFHwpE4qINPdX2v5PiKkEr B0RJtiY4BlFZIubydwWb72 fZ4bUiSeIoS2KIrrZ6Omug C2YADhoYIu ZXblESK4X35lc8O9XXShMV XwBXU7xZU8tJ7vlJqyfoyk bGVmdDsgdmVydGljYWwtYW xiY330BZWc wJiuKiY5RcM7FdN5GPS5O0 AwMgq8ANHhsAkkNB6ywIJe SMhnCp1phCbixXgkKF6jUG BpbjtwYWRk gK1eJLHrsURcpRqbKV4hEX Vjmyxde964WaGsLYW7YEGp hBDuU4CiaU1tGzXwBMLtVP BlL2CnpROh TOoxA664FEmcQmB6OKPagp RnG2ByIILcwAoxGwF3p4A3 Fi9rZMWPKPHypvruqMF+PH MvKQQ2uFxj TAxzYQTfuL0kZFTpT7s6Ds PvKuR3XDluW9CoTRFuybsf Vz45eP5lLkIjJaS7ANclB4 HgbgK4NSXe mGVwYHhaPWI8S10fo3F7XZ JnFOXrZOY7tNR8dY3gmYwb bjogbGVmdDsgdmVydGljYW suTAyyH819 IHRvcDsnPkZlbWFsZTwvdG Q+MZKuXRC6pJneUHivIBBu hC9lJTKfG1w2DcCtDqI5CR vvR8PtHHTc chjlEb07xE7tImAmGkN9WV rsZ0NjnpY9JLAlkYFwNGdp CEX3U01zd3A0XJVtXGBjPY S9dIZ3qD8a bGlnbjogbGVmdDsgdmVydG ooQIirWYwrM690HTUwsBan IlBzWWTfND5mtTblgFD+PC 66cm13R1Kk QklbCdy6MYCdMRC8fCS5rG 6gFJUuBOmov3D2iGV3T6Yg okIwcs2iu0wdNNJhVLhvR5 2wfMHaj2C2 GEMebMP5KKVofAkjQvGpwA 93Oyc+EDSpmVrhh5RyBpxt r9cwk2iegQa2TuEmCNNrih FsaWduPSJ0 x6XdDv99R52eNWuzBOBmKY XuRVTfYBVwkQpjyl9gcV8y Ii8+AVYtpMK9fUY3dD6uVs KiUzG1MGra E780QnQwmUZtMadcq1xoj8 qimMn2RtEtYWKqsdLddUhs WVU8j1LdYz59C1RctFgzk6 DtOzp4dq42 iCBej9V4cFL8R3LkWGAjfi pfsHVjmNotGF5pZEWexvgt XFBpmD3mMBDjO4n6AxWkYg A6HOuyI0Ld xhS7YHGnmVPvXZLzbWPZjF 1anbyzj6mgmcneBzJnBTGl ZZo2ZDj6XXHahRamDwMyFH P3KeK2TYV7 jANqdU5siOphxosioQ1dCk c+RYh0t3wzhOOvYM6bpVB4 WX35ZU87bSLpo9L8lUW0T0 BhZGRpbmct nuyiqPZ1UBPjWYIbyQ80Sp 2vnYylDu7fBEKsGHA4GOUh qTRvT4XubR1cNjCvSQQqNS WmK5HleUJq SVizB437NAibVmX8YMXhpd CiF3JyEXJnwLciUdA9m4H1 Kn2OIC12AD86RR21lJJtg4 K9qNB2W0Ta FRIofwccwumtgCD5MVDtDE LwyT05Jv3ooTasPd8mAWVy WVF3KYFeaXScD4OaeS0yEh AjMDAwMDAw T0MqxEVmQUroV145UApyXy J7GVHqvgUiX3JfVMRbmYsu KbJ7y6Z2Pz4BQd77PU83MX 82rGAlg2H1 sXW3K5BhNAUwptzjlibcfX J5OBRnDFKknW59Kt3gvCoe Pc3fKUMyYPJ4WZHnqAUnP7 IiwK0tGoRm IPXtZXDoW5DsaJYyKHbgM4 68FPaiOqQ0ULXqlfZuA2Vh GDHniUrqKyF0n0P6Ot8ISS arnfr4Z1Yz PjwvdHI+ST79MSDuTI18jW KbjQGzs5mpvNu3UdIaQQWs VWM1fQwhEBlyx6OlLSBpX2 5vdTOpa1B4 IGNv (more content not included)... Normal [facility] Consent for Treatmenton Consent for Treatment [id number] [id number]#[id number]:127 Normal [facility] Discharge Instructionson Discharge Instructions [id number]:127 Normal [facility] ED Clinical Summaryon 2021 ED Clinical Summary [address] [address] ED Clinical Summary Person Information Name: LEENA INTERIANO [facility] Age: 32 Years : 1990 Sex: Female Language: Sign Language PCP: BENTLEY LUCERO CNP Marital Status: Phone: [phone] Visit Id: Visit Reason: Eye drainage; Nasal [...] 06/18/2022 13:28:16 06/18/2022 13:28:16 06/18/2022 13:28:16 ADDRESS: [address] [place] [phone] PHYS DOC NOTES: MEDICAL INFORMATION: Prescriptions Given: New Medications [facility] 1985, [address] [place], [place] [id number], [phone] loratadine-pseudoephed rine (loratadine-pseudoephe drine 5 mg-120 mg [...] Address: When: BENTLEY LUCERO [address] [place] [address] Business (1) In 3 days 06/21/2022 DIAGNOSIS: Upper respiratory infection Normal [facility] ED Note-Physicianon 06-18-20 ED Note-Physician Basic Information [...] 12:19:00 EDT, Weight Dosing Rapid [place] [place]position Plan Patient Discharge Condition Disposition: Discharged home Condition: Improved and stable Counseled: Patient and/or family were counseled to workup, results, treatment plan and follow-up recommendations Discharge Prescription List Prescriptions loratadine-pseudoephed rine 5 mg-120 mg ER Tab, 1 tab(s), Oral, q12hr Follow-up With When Contact Information BENTLEY NIC In 3 days 06/21/2022 EDT [address] [place] [address]- Business (1) Additional Instructions: Patient Education Upper Respiratory Infection, Adult Attestation Patient seen and evaluated by the physician orthopaedic physician assistant. Attending physician was present in the emergency department and supervised care. This visit was performed by both the physician and an APC. I performed all aspects of the MDM as documented. This report was transcribed using voice recognition software. Every effort was made to ensure accuracy, however, inadvertently computerized building rigger mistakes may be present. Appropriate healthcare PPE [...] (06/18/22 12:26 (more content not included)... Normal [facility] Comment on above: Result Comment: Elec tronically Signed By: Grant Jacob PA-C\.br\Date and Time Signed: 06/18/22 13:19 EDT\.br\Electronically Co-Signed By: Connor Castlelanos DO\.br\Date and Time Co-Signed: 06/18/22 20:19 EDT [...] to help relieve symptoms, such as: ? Trtb-cfy-dzgdnnr cold medicines. ? Cough suppressants. Coughing is [...] other clear broths. General instructions ? Take ubyh-fwh-ruuoxjt and prescription medicines only as told by [...] and water are not available, use hand medical scheduler. ? Avoid touching your mouth, face, eyes, [...] common infecti (more content not included)... Normal [facility] ED Patient Summaryon 022 ED Patient Summary [address] [address] Patient Discharge Instructions Person Information Name: LEENA INTERIANO Age: 32 Years Arrival Date: 06/18/2022 11:56:54 Discharge Diagnosis: Upper respiratory infection Primary Care Physician: BENTLEY LUCERO CNP Provider Information Primary Provider: Connor Castellanos DO Advanced Liner Man:Grant Jacob PA-C The exam and treatment you received in the Emergency Department were for an urgent problem and are not intended as complete care. It is important that you follow up with a doctor, nurse practitioner, or physician?s orthopaedic physician assistant for ongoing care. If your symptoms [...] With: Address: When: BENTLEY LUCERO [address] [place] [address] Business (1) In 3 days 06/21/2022 In the event that this physician does not participate in your insurance network, please consult with your insurance company to find a nearby participating provider. Patient Education Materials: Upper Respiratory Infection, Adult A MESSAGE TO ALL PATIENTS REGARDING OPIOIDS PRESCRIPTION OPIOIDS: WHAT YOU NEED TO KNOW Prescription opioids can be used to help relieve lvkdgelh-pl-oaczzl pain and are often prescribed following a [...] be struggling with addiction, tell your health critical care rn and ask for guidance or call SAM[employer]?S National Helpline at 0-253-218-HELP. v [facility] (more content not included)... Normal [facility] MICRO OTHER TESTSOrdered By: Olivia Garza on 06-18-2022 Rapid COV Int NEG Ctl Pass (06/18/22 12:26 PM) Normal [facility] Man Sero Rapid COV Int POS Ctl Pass (06/18/22 12:26 PM) Normal [facility] Man Sero SARS-CoV+SARS-CoV-2 (COVID-19) Ag IA.rapid Ql (Resp) Not Detected (06/18/22 12:26 PM) Normal Not Detected [facility] Man Sero Rapid COVID Antigen ([facility]on 06-18-2022 Rapid COV Int NEG Ctl Pass Normal [facility] Comment on above: Performed By: #### 2 [id number] ####[facility] [address] [place] [address] Rapid COV Int POS Ctl Pass Normal [facility] Comment on above: Performed By: #### 2 [id number] ####[place] [place] [address] SARS-CoV+SARS-CoV-2 (COVID-19) Ag IA.rapid Ql (Resp) Not detected Normal Not Detected [facility] Comment on above: Result Comment: The [employer]? System for Rapid Detection of SARS-CoV-2 is [...] or revoked sooner. Performed By: #### 2 [id number] ####[place] [address] ADMITTED TO INTENSIVE CARE UNIT FOR CONDITION OF INTEREST:FIND:PT: NO Normal [facility] Comment on above: Performed By: #### 2 [id number] ####[place] [address] EMPLOYED IN A HEALTHCARE SETTING:FIND:PT: NO Normal [facility] Comment on above: Performed By: #### 2 [id number] ####[place] [address] FIRST TEST FOR CONDITION OF INTEREST:FIND:PT: Unknown Normal [facility] Comment on above: Performed By: #### 2 [id number] ####[place] [address] HAS SYMPTOMS RELATED TO CONDITION OF INTEREST:FIND:PT: YES Normal [facility] Comment on above: Performed By: #### 2 [id number] ####[place] [address] HOSPITALIZED FOR CONDITION OF INTEREST:FIND:PT: Unknown Normal [facility] Comment on above: Performed By: #### 2 [id number] ####[place] [address] STATUS:FIND:PT: NO Normal [facility] Comment on above: Performed By: #### 2 [id number] ####[place] [address] RESIDES IN A CONGREGATE CARE SETTING:FIND:PT: NO Normal [facility] Comment on above: Performed By: #### 2 [id number] ####[facility] [id number] [place] [address] Coding Summary.on 06-02-2022 Coding Summary. CD:[id number]:[id number] Gh 0bWw+PGhlYWQ+PT9KKBErK 78egQGzmZ7AG6rCKP0KRQF HIPTFZZ5HYL3ajUN3IAsvK 2VybiAv GixqiYQiSG94PCm3RTS3eA nsIDcxyU0biXJlG9s4NcQd GP47lK28LSrlLYSzCtQ3Ms ZpbjsgbWFy R4vmMuCkiGAkPsl+PHRhYm xlIHdpZHRoPScxMDAlJyBz eWepKV2iEk6aKMLqLUDztF xhcHNlOiBj h0jaRTXgBSaiPV1ywLgaM3 MvgLB3KQBdo1k1Og75fCG+ CAIrPSI7gFjbAYvyg472Cz Iqp2eyYMQ5 hZSmYUcuXZW8T24nk1Q3DE JyOXQgUQV1vDK1wD3iyMhc lzbyN6QvmPZpLcW4ZCQ4xA HpaL1qoYgr gkbwmH7nOqm+W45ISO6BIC WNEP9FRlo5W5VlVotciYG+ KW21KTJsJS19wPWrtHBew6 yqkFp8DpJo JRJrMLM2qDngJYkue2KbDH MdE07zhWXfu1D3CNRaoOqa gWSzMhApeUX9jL2dFSpwsz dzy9zqjuxb Mghqn3edop55wV11B12cEM luTDFaVKD2ESNmGGCekOpp mr5dhU1nWe1+LQmny2zkx4 vxvUk3KoWl ANFwxyTqoMpkYML4c0XgHe 15A5LnmPosv1LbUwm4ao03 oLQnz3U7zCP1IVoiBSQqqP 9zVNjhLwA6 ZLUyJaVumM37oRIiTDhpGp 2noMsanOecPN9yBRWaoauu WEPzvQ7iWBIquSHraPtvMM 4wNTBpbjtm t861PdPqFKX0TEJqaXMcK2 WumO7jFrMiSKIlQBCcS9Of pRPtALcsB170RKyhLjE3SW WuwhKrU8Nw YLBuxWijNnM7s7U0Er5Dd5 RlfjhhXJR9UTwyONK3VkB4 PsFsWgF9V3HxXud6TPGmqT psPM9vN9Oz FGSwteqhnooyoAI0LLJhAJ FkzJ47mJFrTXbvTv5tg3A0 o378UWGbDLBcoM16Th1zfO ogMTBwdCBU rN5hpnsgp0qhhnthKcUcOT NgUBi2SQc7YDEviIwcYuYy KTK1LaT3FNQ4oHBwbI7jrY ecqsucoI3a Oyc+N87ckO4oEVR7DHM5yg sfJVBvicCyZG03ME92K5Li PjwvdGFibGU+PGRpdiBzdH vrBJ5bZjOs o5mir4ZrUDxqV9EoPZZqOB dmTkd7BLCyMRI9lHN0tH0s MFLbAXtoz9K6pSI8D8Jgwq Wpkw4cs5sj HUQpEEixI93giCZrl8W9OQ JyoRV4GJNxcQnfTgYrxG09 Oyc+XYTktIqck5DyBtadn8 lqb0pqjYx3 MkVnUJAictXmzRceUBD3q3 AlVn58M59uTMbcLXUxLMZy GVRyPGIvtFiiap1hsR1vUn 8+PGNvbCB3 uDR9cI4xDWDvUqK7KCjnP6 03WgYlbSZoXkfln9ujl9jz eBv3KzHbMIBjpvTafZfzQT L7u2VaZu69 T87sMYwdBIFwBDCyAMDeSM IqjRdgxf2oiW3aSg6+PC9j z9horq24xW97nFO+PHRkIH K2aVhuKMdk JLDprX6nIUfxCwR9AEBiBr LpiX28mHRkVLucQq5pkUyi iHgcOO7dDCBlgrisc554To Imu6isYCJl jTLvREeoNDI7W47zr9X0XE DaDFWpXUM7gRR2gA5saIlr bjogbGVmdDsgdmVydGljYW zvMJrhQ036 IHRvcDsnPlBhdGllbnQgTm QdAPl7H3ToVup2BLNnjLaf KU8jjYOyMExiDm3yiTteeY akOR9bVHJf horih819NlIrx4xdOATfxC QmAMtnTWX6V54jw9K4QXQf YTWzHYQ7eGQ9aU8hdQdkvt ogbGVmdDsg xbDjnVjzCKmyNAazY864YQ RvcDsnPkJpcnRoIERhdGU6 OB14EF11bIOel5S1mVB6O1 BhZGRpbmct vilpmKW8YJXaPBBuyN99Zy 8kcAkxBm5uVNCgZJI4LFNq uMNtJ0DvjW6rYaUiCOFvJA AnR1FdiITu GIbiJ922GDffXsP2ELTzpl LpI2NfYPKegOhfNuO9k7M3 Ej2ZP1V4ZS90WT85tPRmm9 B3cZP7G0Nu EQJjznqhqyoomHY7VKTuGQ BakT85Zo7tvAqyAa9aITSj PFT4XZEggMVgV2JnxT7kUl AjMDAwMDAw Q7EyzIQzJGyoP091XHjvOv O4KYSzicWvH2EbDTOjbHog MvM6o9I8Gh5YSIp0EL71NC 09jELrf6A1 kKD3I3QqVYPgqrlgczvbwD Q7QRHlVNGqcA59Wq4xoMfg Gf6uYYPwFQA8XCEjtKMwH7 WvkF5gRfFv AEUdZVJtC6EocEZqGSzhL8 60YHbfIaD1DZKdpzMhD8Me BWPlfKdgDuZ9h9K3Rp0ZUF UxUL84ARK5 sHY3TU93DL71S4BeGrihxL FibGU+PHRhYmxlIHdpZHRo IKimWYFwIcYiiCneXV7dNx 9yZGVyLWNv yJnnnEMlFxLxb1ivZXMgNM faTN7kqVnfU8VfkNH5OBGw j2u0Fe73W39oW6SbcOP+PG BlxLH7eAC3 sK4eUeTaHlF5APduR634Gl VwtOQjLtyny1tjs5dapZa6 CwA9HFMipeUheNuqXDI6u5 DiJx90P25b IHdpZHRoPSIxNSUiIHZhbG inkd0fcV6aKi5+PGNvbCB3 xAY2cW9hXsFbIqY9RYaqP0 49InRvcCIv Mfjay3kdn8jrgDu9ZpLiJC ZdobFaqEdcXKS3t9ZmJz78 A5AvfWusc8YsMqz1yt14qL Fvg1A2dJL2 Y1VdCJVftiiwfQMhdXnkZL 6lBIUlyyzuKHMmcX9oZGGm S9r4QlGfEjZ7XUzyG7Bjfl M9VZFfpXOq LFihTJG3N64qy0K0AKZkVS NgVPH3aLS3xL7orYymnzdp bGVmdDsgdmVydGljYWwtYW cqC049WEYx rNetYKWbuY1tJQZqnBXqfA esUP0mEOZzlnunSkkYXAky IEpBREEgTTwvdGQ+PHRkIH V0vKttDAjr TDGtzP9tQMSmJ5l0VkKkMk B4VAuwB4ZaAXXcusuyTx34 yT8qTjRiJrZ6XAhsL4Cvvo D8OGRpuUDg AGviAUE3T30lj8D8PSLwAY SgSLK4aQK1zA8xpVaawjkl bGVmdDsgdmVydGljYWwtYW vmL635KSSl vBwsJgP9ZqI0SeZ5UFH8E0 KcPwd7KCJsmEocPQ7wrXTi DNgeHv6vtBqrfKkzPP9mLZ BpbjtwYWRk uX4iSFZkoYHhrExwQO6rYY Ajzduic000IpXrANY4KCEb sYWvB0CyzN8jVsKkWTOvEI FgX5DekCSk RXzqX969NUskCqX4VUElnx GuL9IbQBDymSdzWqX2b6T0 Kn3cMZHXCFOnygaibPU+PH HkGKX1sXwf ALejCQGxdM8zKUBsY9y0Ae QlZiT1KCalH0PpNIRdjwth Vc58rQ6eDsYkIcV8OXwtY7 DaqlW7SCUo xMHlXIfvJUY4X94st9F3SH FqEVRzSMS1yFF5bB6jfLfc bjogbGVmdDsgdmVydGljYW mvAFdlF850 IHRvcDsnPkZlbWFsZTwvdG Q+CTVdWSQ8jXcaRAiiFNOb pP3bOYBkB9t3TgIkSvV9JD djF4EhMRDv sfrvXx33yZ3jEwNbRfV6BW bnX7SzglM4BMFbvFYsOGej SVJ9K18fh0D9UPKeDENmLH F1wBJ6dU1a bGlnbjogbGVmdDsgdmVydG slKCjnZSzsZ229CCLzdVrh VzKcZSBoCB0lnCwklQC+PC 26xk22U2Wx MnigJuk1ESMkSDU7yCO2lZ 5cXQVuTFhvw9E0mNS1T5Dx kqEoqg8qj1ugRVAiVKjxT9 9loNZdr9N8 MZZidAX8OYSvxMidWtVgmU 93Oyc+GTYzvMulu1PcYmtx u8xuf3fpjAt9NpJfXLEulp FsaWduPSJ0 c9CkIo68W51qNTsuKYSrKA JcORRbLSTcqLqoic6xxV1k Ii8+AKPafAN8cKK1uK3lQs UqSyL3EVqt J471TpJljZSiDyvqs9cxz6 sdxDl9CeLfQUMamhPigKpa XGD5b0CjBt37J8CqiAcht3 GdUnx6ew33 dTXnb3N6bOO0F7JeHLOlax umyZYvdGyeTW3nHBXmmqij WPIlqZ1tBCFjI1g5FvSyGn P2LSpaQ9Jb deH3JCCkzKXfGOGicXDTtG 7wxcltg9ytlraoPgHdJYHn NGo8UNg1KFZxlXqrTzGbNS A0RaL1YGJ7 nQTzuC4aqAvpmsxsuQ5yUx c+TMd6a6srlUTvUU5rnMI6 XD96DT92yVMkf9H8zYW9S8 BhZGRpbmct kfmfeDK0GFEaKXPkuK33Sm 8wgOoaZv8pRLDmPTG1VHCu mSQjL1XyvE0bLpUgNPCfSE VdM3ZfvJSi LOxvG029MBftMmS2JOCwmb NqV4PiQKEoxNroBuM3q4G3 Fv4BXC02MH87DH42pVDon6 I5rZC9O7Ng SENwzcihgihsqVW4OOAyDO WciB74Vk8dbYoqPf0dIZXk VQG6AJYjqDGkC3BymR6xWn AjMDAwMDAw R2LqfQQzGFbjH966JDfpJi X8TGZyaoKvU2DdDKLkxZff QbD9m2R3Ho1ZDm44KI16TS 96dSWtx2B2 iHG8Z0MySUKchrbotzasjC X9OGLqVRRjsW57Ys9tzMlh Ph5dDSGfKTZ9GCWwvRBbS8 DykO9cBtUo UPXoSXZuX5AsdTSdQRvdF2 78BRfoAhX6HGPlvhWtB6Fp VMWimZbpCcG8l9O6Xk3ZFQ frjgm4Y1Jz PjwvdHI+YQ80AHAhIC42dL BnySJrm5vbmCj0RdTqNGQs NWY3aRwhHLdcc1FmGLGfZ7 9xoMKjg8M7 IGNv (more content not included)... Normal [facility] Consent for Treatmenton 05-15 Consent for Treatment [id number]:127 Normal [facility] Discharge Instructionson Discharge Instructions [id number]. [id number]:127 Normal [facility] ED Clinical Summaryon 2021 ED Clinical Summary [place] [id number] ED Clinical Summary Person Information Name: LEENA INTERIANO [facility] Age: 32 Years : 1990 Sex: Female Language: Sign Language PCP: BENTLEY LUCERO CNP Marital Status: Phone: [phone] Visit Id: Visit Reason: Medical screening exam; [...] 05/28/2022 11:50:13 05/28/2022 11:50:13 05/28/2022 11:50:13 ADDRESS: [address] [place] [phone] PHYS DOC NOTES: MEDICAL INFORMATION: Prescriptions Given: New Medications [facility] 1985, [address] [place], [place] [id number], [phone] cyclobenzaprine (cyclobenzaprine 10 mg Tab) 1 Tablets [...] With: Address: When: BENTLEY LUCERO [address] [place] [address] [facility] ([employer] In 3 days 05/31/2022 Comments: Call the [...] left-sided sciatica; Headache; Other chronic pain Normal [facility] ED Note-Physicianon 05-28-20 ED Note-Physician Basic Information [...] back pain. She is deaf. 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 Med student who accompanies me is fluent in sign language. 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 No indication for imaging of a acute [...] pain, # 15 tab(s), Refills(s) 0, [facility], [facility], cm, 05/28/22 10:56:00 EDT, Height/Length Dosing, 86, kg, 05/28/22 10:56:00 EDT, Weight Dosing ketorolac, 30 mg = 1 mL, Injection, IntraMuscular, Once, Stop date 05/28/22 11:29:00 EDT, STAT, Start date 05/28/22 11:29:00 EDT, 05/28/22 11:29:00 EDT methylPREDNISolone, = 1 packet(s), Oral, As Directed, as directed on package labeling, X 6 day(s), # 21 tab(s), Refills(s) 0, Pharmacy: [facility], 165, cm, 05/28/22 10:56:00 EDT, Height/Length Dosing, 86, kg, 05/28/22 10:56:00 EDT, Weight Dosing naproxen, 500 mg = 1 tab(s), Oral, BID, PRN for pain, # 20 tab(s), Refills(s) 0, Pharmacy: [facility] 1986, 165, cm, 05/28/22 10:56:00 [...] mg= 1 (more content not included)... Normal [facility] Comment on above: Result Comment: Elec [...] instructions at home: Managing pain ? Take hjwy-bgc-mlctert and prescription medicines only as told by [...] most common (more content not included)... Normal [facility] ED Patient Summaryon 022 ED Patient Summary [address] [address] Patient Discharge Instructions Person Information Name: LEENA INTERIANO Age: 32 Years Arrival Date: 05/28/2022 10:43:04 Discharge Diagnosis: Chronic left-sided low back pain with left-sided sciatica; Headache; Other chronic pain Primary Care Physician: BENTLEY LUCERO CNP Provider Information Primary Provider: Connor Castellanos DO Advanced Liner Man:None The exam and treatment you received in the Emergency Department were for an urgent problem and are not intended as complete care. It is important that you follow up with a doctor, nurse practitioner, or physician?s orthopaedic physician assistant for ongoing care. If your symptoms [...] With: Address: When: BENTLEY LUCERO [address] [place] [address] [employer] ([employer] In 3 days 05/31/2022 Comments: Call the [...] opioids can be used to help relieve iuodnopl-xb-mfbwts pain and are often prescribed following a [...] amounts or mo (more content not included)... [facility] Prescriptions/Work Noteson 0 05-28-2022 Prescriptions/Work Notes [id number]#1. 00CD:127 [facility] Consent for Treatmenton 08 Consent for Treatment [id number]#1. 00CD:127 [facility] PT - Assessmentson PT - Assessments [id number]#1. 00CD:127 [facility] PT - Consentson 04-24-2022 PT - Consents [id number]#1. 00CD:127 [facility] PT - Home Exercise Programon 04-24-2022 PT - Home Exercise Program [id number]#1. 00CD:127 [facility] PT - Home Exercise Program [id number]#1. 00CD:127 [facility] PT - Otheron 04-24-2022 PT - Other [id number]#1. 00CD:127 [facility] Coding Summary.on 03-26-2022 Coding Summary. CD:[id number] Gh 0bWw+PGhlYWQ+AC0HCZFyJ 88wlZCxrG6SB2aZAU0PCVB ZGTNOPU9NAK9pwIF9OZhkC 2VybiAv YuhzgLOjKO08YYb3NVY9mL fuXPimeW5sdIOgN3k9AmGh VR30eT14EKwePCCmCuL9Yl ZpbjsgbWFy R5erSaEtlJUvGfo+PHRhYm xlIHdpZHRoPScxMDAlJyBz uZnyFX9xKt5mXUGjUIYbwN xhcHNlOiBj u3waNBUzIUusCM6mbNrlO8 GcxNX6PFRkf2j5Cr09fKI+ JDBsRBA9jHdqQMtsp219Wq Yfj0yqFLR2 hJJrMXtdCPA2S92zh1O4BF MuWOTcUXJ7dLN9dJ9roMys dxvgL7QzyUYmPpT2KTC3jV MfxT2bmPiw pxalwQ4hRsx+X10IJH4ENZ QHIO4JNzi1M1ViVnzyyWR+ YB75EJZkFA98lBEmfWTyw1 prxJa7ToRq NYCdINC6vHvhQPmuf1RuVR XlG24zmWKiy0N5EIDvkAmp yYVuLaMczMD6iP8lMJiynz dxs7crmyhh Swoih9ryju63kJ73J94jYZ vcWBTcISF1LXVlBDZjoCfr kk4wgS8aBc4+YSaiq5ima6 eumLg1QzFl EBDuiuWfuQgpMFU4i2AtKx 41P3KxvHmxa0DsHxu3ok13 nYWdo2I8nQT9VHejDLOxjC 6xPLevHrK2 WRNiBoKzeV94xQJqEGsfBc 6lvPfwfZluMU5fNDBzedpi ZZZnqX6hLLShvEBkiMzyKW 4wNTBpbjtm f931RuUiTIP0YDCamUYaD4 NxcE8sRbWwBFSuFYWoK0Nv wZVyZGmxA343IHqzViW8GA JzklMnQ8Nc GJMruTuiQtW6m6E2Ke6Wp9 WrrbltEDT3ZKwwWPL5YsYo MsUfKoM8A8DnOyz3VMClaF onAJ1jE7Be OBTqhtdyjahbsSR5PQGhMB ZevE61lRSiBUidYl4ph2S5 b988TBScRQAquY73Cu0rvA ogMTBwdCBU zV7ylbbqk8betkseOeXaBW JtQEo6MAy2ONSezMyoDwKx MXB5OyW8LXS3fDXioD3ypC kzsvavmP0e Oyc+Z28yyG4bDUB0ZZO2ys opMXQtvgNoYW20TB47X8Hl PjwvdGFibGU+PGRpdiBzdH hwQD6aVbDh h5iuv9MaJGglM1BdAMNzIK cqYuz2XJNmWBS2kKQ1wN0f RXUqRPzws3Q1rPF6D2Fcfz Kcfy9ig6kx WGRkSBxsV10dyFRrb8Z6FT ZjfTK8YQKhqUhmQxQgtN47 Oyc+MZNwrQyfy6VxZnncv9 ldz8oacFy1 OaKgEFJlhuAcuJegZZR5t6 DkQp78Y53vIRznVZPrGGBt VUFmQHBjgOttcs1zeK0hOq 8+PGNvbCB3 gJW0gC6aGUDwBmE4TUwqR2 84QuMxkCYoMbadz2adc1ud xSn3YzHjKSFgtfWrcGoySF W8t6ThEf35 Y24gNDiqTSKjOYCoAARjOR DacDzwtn7qtF0eYg7+PC9j s7ndqv21iZ71qZH+PHRkIH T4vIzaWHio TNRzrJ6uRFnhOpS6FXKeTz MfzN51wPCcKBrkNm5keWhb yLhjQM5iMEYuayzfg660Xa Oie4oeTDFx wGYiLTkyFHQ5H14dw8P8MZ CcNOMxYJY7rBN3tT4rpTte bjogbGVmdDsgdmVydGljYW ziBGbxN632 IHRvcDsnPlBhdGllbnQgTm XcTDi8X2MwSbn2UOPieBzc NX6yhRMlZXwiFc3ltIwwcE btMB0ePBDz awyxh321SqOke3upZVKfdT KsCEwgGJX7V07gg0Y8GJXs UUGcQSP1bIE6eT9nlMovto ogbGVmdDsg hkUqeMmyGDnxABubA377MV RvcDsnPkJpcnRoIERhdGU6 AB92BT10qLTdz9Y7bVI3J7 BhZGRpbmct bjdghGO0OYUiXTGceR02Iy 2enLciOb7xTTPaCBQ9YLCh wLDoX2XnkD8dUcIvDWGxJD EsY0OteIBc IXnfP250URphDkX4UPFzqf SfI4OqASLbpUagNtM2j4T0 Cf2UZ4A8GW49IH18iBZav8 V0hGN0C0Ml DEAembhpycpmoAM1WLKtWN AwhR54Dd1yeSssAa7lTXJm IXK3TVCutZXgZ7JpsJ8rRk AjMDAwMDAw D4QifACpEMmjU273UCtmVa M4VLGobxGoX4AtHCTzsKmf LvN8m6D1Sw0JKVv1WP47QS 40aQOrp0E7 hMI3X1HzRBHswfjcqlmkyK B9PTVwHXCrtK08Sl8hnFqo Aa1gYRFrFHV3VCBqaDDeY0 DlxS0cYnGz WWQnQYTqB3VqgTBjVAvqV7 70NTdcZkA0ODDaqhIrF3Kh WEJmwAkcVdI1x9P4Gx4REU PpKJ16GQR8 qNT8KO96ME56V6IcCgixnS FibGU+PHRhYmxlIHdpZHRo OZnoNTYrAcFwgSbbPW5dWj 9yZGVyLWNv rOcasMCiBoDxw0swYSWbVE fdAH2uhSowC3AxxNQ1JYUv o6m3Bh74M75fX5WmaWP+PG WyqKL4oXA1 uL1yXwCnNrH2XRftJ971Bo RoiJJjBljmf6cnc7szaCe6 VzJ5HZVurgZmbFnpVNN7j9 WnXw48P74y IHdpZHRoPSIxNSUiIHZhbG ksak1tvX2kSt8+PGNvbCB3 nVS8lU3jDcBsWrI6DMnoK4 49InRvcCIv Kivoz5dhw1vtcOw8OmCbML KbywAlqOexLSV5b6RaBb48 F5YxjHtqd2IiDdd5sf59fW Ybf6I2xUK5 E3FyFKUejdieyERqeSekDH 1pYBMeuhwnSRFadU7nWAAp H7w1MtSdZfB2TZraT6Vsaf N3UITjsOZp FVssKGB9Y96ve8N3JTZnNS AnDED4pUN4rL7gjSuhbdkb bGVmdDsgdmVydGljYWwtYW aqK697EIYc lRdbUBPygT7hWQYvfNGfoC kqDS3dHMFvjoueSwmXPPtc IEpBREEgTTwvdGQ+PHRkIH E1yQacBMzi GVPxpS9gXWIcL4g1QjZsSo X4ZVqbC1QbPTGwvsaoWp14 qW9xBvMsRmU2TBhfG1Blyr I3RJQztUSb AAjuXDD2H33np0L6YEIbIG LcSBK3uDA9pZ8qtQmjbkxs bGVmdDsgdmVydGljYWwtYW rjU719KWXt nAymGaN2ExI0XyF4TRC3L2 FsZxj0KGBkxHmfWO2rxSMn ESkbRm2ixLbdjSjvDN2nGB BpbjtwYWRk hP8dZDNooRVlyCmmUO5pYF Lmfirzi940QfGoZUA5JWAe oUNhU8YefT6cLoGtPNBcEW RpT3TalNNr NAteK993MMqxWkJ6WDUyhz HjW9AsCNFylMolCxF4a3B5 Iv1jLPRDLEJdhqoeqXH+PH WaPQY3tJoi EDcqHDZspA3vMHXtF7t6Jc JqGaO0EAuvK6YlLGBvpnzt Mn90jW7cGjTlExG6FLtdT0 CdkmD3ZNZe kJGcBZreBRK0H70km9L1SH OxLNSfIZU8mYR0pZ2nrTch bjogbGVmdDsgdmVydGljYW apCTkpT484 IHRvcDsnPkZlbWFsZTwvdG Q+HAVjUCP4gObdNZnqBCYl uV9pIDHoH8l5ZjUeMnF4BU ncL2YiCAWu pkwiGt50lC7aEjUuVeW1VN zhN7JsdjM5JAWlsRQbRFhq BCJ9G14ml5Z0XQYqZLIeDH X3qIN1hQ5t bGlnbjogbGVmdDsgdmVydG cpHIhwFQznH581ZEItnPil WuVoY5BykedpOhcnrMF+PC 34pg99T2Bc CffjDkp6PZHlGRE6uIY4pC 1uLDKoYBnbq2X1nYE8U5Zi wnIhwk1sk1rgGXQoPRotC8 0jpHTjc9X8 SSPtyJF0DDOnqMjnBeWyyP 93Oyc+NEBwbXrja5HvUton n1xvm8cvyVv5VrMiSCLfxo FsaWduPSJ0 q3LdCk81X00yDNatEONbKK OoNEUkHZHnyDptar0xlM1n Ii8+DPOuqVE7mKN6pS1fAt LqBwC9XEbe E192QmKmtUWhRekbg4htm8 ligSp7QwCyWMOkffPvjTkn FKH8p8EcAv70H4BcuIcoa8 QfJff7ty69 sFMnt9T9wKV4E7RoFMYmkt mkvFOhvEojHB9wYYIjvfvs DJAyvV3gJUKiS6b7KsEoDq K4YQrlY5Xl xkN5FLThtDQyLJTedAUNeX 9ocspyb5jnvfmgUoLgXPMp SSk5SUn3IQVwkSkiAoCmUF M1HrJ5ZRP7 iIDfuC4aaAuxgzjgvB1xAq c+TXp1k3ljyYLwGE6tkFD4 VB05IS48aTZei4S8sSV0P6 BhZGRpbmct dxdkxHM4GQPoIIDyrY83Wu 2biJzkBc1xBAMiQMZ4PZGn nIIxF8GamN6lVnNfPGWtSH LyI0AxuCMb KRjsR942HTxtKpZ0OHHhvm VaF5QlCQUsbLehMfV0w0J4 Vq6IEI42OT92PS34wZHwz5 A0jCG4H1Gt UVJpfamyzrhxlHA6XZEpXF LbnR57Kn8uvIesUv9yLIHf EBR8QJNeaOLpV0JmtN2xBa AjMDAwMDAw O0JaaROfOUftD974YPmjPa W2HLZmryKgX1LeAXWmrHjb YbA0h1W9Uu2TQv55DZ88CW 57xITvd1L3 tVQ6X7CbQDKtrvqxgwzlwN S6LLPlSQJroN57Qy9jcWvv Ae3aLBTiMQF5PZKfiHScW6 EkhM0tPmKo CAUpXQLjU5ZmiLPwLVazC7 51XBrcIuV6ZDGdgdEiC1Lk OFPyhGbsCkW0g9B3Bi0OMQ ostis7R8De PjwvdHI+EB72ZNOjVA18cT PevNUns6lrdTm1KaWhCRNr VFB3aVryTZlqz2CnPFOvI9 5sfFUmq0B2 IGNv (more content not included)... [facility] Outside Recordson 03-14-2022 Outside Records [id number]#1. 00CD:127 [facility] PT - Orderson 03-14-2022 PT - Orders [id number] 05 [id number]#1. 00CD:127 [facility] Coding Summary.on 02-25-2022 Coding Summary. CD:[id number] Gh 0bWw+PGhlYWQ+FM9TBMXbQ 23hnRSzuS7JQ6xZLF4SOHJ ZZKUVUY7QFE0gtOY6ILuuU 2VybiAv FvupeRPyLF54JQk3FOH3pH akBVcfjO4keBYnY7b5TbVc NH94uX26ANmxMJFnSaO2Ab ZpbjsgbWFy V0fcDkVljRHsMxz+PHRhYm xlIHdpZHRoPScxMDAlJyBz jEmePV1dCf5qFMAuMLVouO xhcHNlOiBj g7hiDGJoCXzjKT5qeSdeW3 QpwGI3QJOgx4u3Gt32yVP+ GLQdAHH1xMzmTMmbf137Ky Vim3pbYSP5 kTMwTOhaJWA1S47px1C3SF PoBIFqVXR9eSK2lU0hnGac praiO5AlpTZnUxD1CHX6tN LwfI2oyImt yaxgvV0dJpk+V18KUT2QCK NRDF4IFgw6N0LfIuebxYB+ DQ93RGBdXT61qSZodGSeq9 ielGl8ZmIa ANKkAIA8pFftYAvdj2FyHX LqT83xiQZsn7M0ILMsrTij qOMhTaGlgUA5yY3eDOpqqt guu4fbryob Yosar6zrco62mH68R97fVD suBSQxXDI0SXJhPBKzlDrt vh8ffB1kEr5+MKzmk6fbi9 svcHv4IgOz REClucCfpGqaGQU5k4ThWk 29P4ZiqNasu9YwGyu3wr80 zAIwn4R7zHU2LQwrRFFcnV 7lXBvlLuS9 IWFlElMqyZ15eEPfHBkbPi 0drXfqjVscFU5cUCSwqinf DBQczR6jFEEvkHVwvJgrJT 4wNTBpbjtm v230EvUkQVI1FGEriTDlH7 VheL8xVmBfYRVjZNMnH6Py hGHfAFcfK787DSnyHpZ7ZJ JnxvAxK7Rs HRGorRoeGkO7d6N2Gz4Hw1 HwexofADX1CFvxUUG6ZuK8 UpEjNjW8X7FtKhm4GEYosT znGZ8dB3Yo UGAroqbvownvfPG7WCBzEY XrdQ27uVHnOOsqYo1cf1A9 t732ADHvKRQziA28Sn6izU ogMTBwdCBU fT0lvijwt7jsjepsIePxKE VrGJy2BXn5ORGnqBwoPoCp SZY9SuG5MLJ6xZBanV6cvW gurpuzrB8r Oyc+O64rpN0sXAH3RFR1hj mrVHTanjBtWA43FT65E0Ah PjwvdGFibGU+PGRpdiBzdH cfLE5bPdHe o1ibr2ZyYDlyM5JhYBCcIC nqFym7HYSbZVO8hSU9dJ5l XCFvGCunt9W7pSL0J2Lgab Bzgr6sj7cp SBBkGRdqG81muTVws4W3OC DtqSA9RFOczFnyYdPhuO16 Oyc+HTYkrSjdy5GcNnbxz7 byn8bfuOj9 MmGcNXZhtqRngIuoLAY4y9 IrGb85Y66oGJcfDGFoSKZn BEUkBRKoqRaztb8njG0hKo 8+PGNvbCB3 xHS6gE3qSWYsVdP7AVgxF8 38TeZcyBCaJnxqh0qal3ad gNd1SyGhKTCewxWqqHctTS E3s6CuGa01 M18hUOzhWHSoASAnHHBvTC VwcTvjdc7ihJ4fWv4+PC9j t6srrw11hM88zJW+PHRkIH K5pEwvNXdk YIShnW2kELcrHtS5CWFeTl HpyE69oAOcIPxwTd4hvOuq fRihYJ2pPKTnzredj664Bm Ovx5bjAMOe kBCnEQdkRWR5C65nc2B4FB HoJIVkQYB4pUV2tA4duYhw bjogbGVmdDsgdmVydGljYW avJRgdE946 IHRvcDsnPlBhdGllbnQgTm YgGRg2M8ZkWsm1TZCrtPpn PV4vxCNtVMzfWn5oiDddrA iuBN8pGZJh saycn898HfCal4phQURmxX JsSSqnXCE6G14sl7X7WROn ATMeCUI5kKF7iR8oqVafus ogbGVmdDsg jtFslRknURuvIQypC578VB RvcDsnPkJpcnRoIERhdGU6 UB95YW11tRUbo0K6rYE9T8 BhZGRpbmct wphxqWP6AAHqGFQajF09Xs 8seFshCa1uZYJsFNE6QOEu kIFgI5NilZ5uYtZeAZUtZH ZjH1TfnXGs SQtfP978OCnbFjK4IJTyix TbV7UpPCYfiIpcJdD0h6W0 Go7KQ7C3XP59CG88jGWwx1 V1aEL3V4Zh GIWahthnsijozFU6VTQvBZ IrcX00Sp4ftUsfFm0aPLXa EWV1TRWzuESxB2TmwT8kKf AjMDAwMDAw I3BosGEmBLheW336TOzqJa V5GVSibfMeF7ZiLRDjdDgh EzF3y8L6Kr4JJAp4EN57IV 75gVXcr2E7 tWL9F3ZaXQRlijehwyuvnT Q2RNKpULZdjM33Ew8ogNdm Dc3kMPLvFIP3GUVqsZQlM5 NfoV5xAdDd KJUnXNSnD5LzvQQeVEkyN1 32UZshBmB9OQMlkbRwR3Bc WKSjgGgmQaK7e0R5Yh5OJS GmYB74FSP2 uBR7VC00VY65R1HiIcetuZ FibGU+PHRhYmxlIHdpZHRo JNkgFUXwIiMpqHhwMT7cCn 9yZGVyLWNv tXkmxUTtPlIzh3ioLJAvVU ogJX1dgCfnZ9AqoVW2SKRc d3f1Tq95C12sK3NgtEQ+PG QgmAF5xIZ8 lC0wYyJbCbV8UTbwO593Rm QefVSbLyivr5rtr5dduXb0 QoD6HLTxvgAotXeuZIX6w6 EbDq99T37d IHdpZHRoPSIxNSUiIHZhbG bvyq2vyG0gQd3+PGNvbCB3 aLL1eZ0fOkZuWuA2KBglW1 49InRvcCIv Elywh7xfs5rimAz6MlTlYL UyahCwaTmqAIS2m6LcNe09 S5NkyKtev1PlAfj8px63bX Nkf6K6iDH3 M3UtFCRcdrtjzSFspOavHX 6wRJFbsmhhFEQidJ8dRYLh H6m1DmEjSdG4DAsmY5Vqhp A2YQHniXZb SHtoSBX8V36ii5Y8AOYoLD AyNKI6xSL3sY7vdWfolmcj bGVmdDsgdmVydGljYWwtYW quV681JOPm uNetOUIigK9sMYBitJYocR wvDT3gKBFabgjrUhgVRFdr IEpBREEgTTwvdGQ+PHRkIH V9mCotTWuw VIEskD3iCGJlQ6q4JcXfUc Z0MZwpS0RaCFUbhvbcWd10 xT7aJcJxYqB8OPmuL3Anit J8NQJttGVk NOupVAR9S45if4H0EHTeWE WnUOY9pOJ8xJ2cdQcwtpei bGVmdDsgdmVydGljYWwtYW uzJ267CGEd vEalZzY1LcA4UbT8YNF2X6 BmZyk8KAQrvQqhJU2xkLGb CQwmUc4zaBkmrFulGB8yKS BpbjtwYWRk kC2rJISpxRZceDjeUT6lOG Kfpsfcw289ToYaMGD1QPYv mGWcZ2HasL0jBcHnXKTuGO OiA4GwtIBk WJkwX544GKraYeV8WGTvbu AaP3AuLLKrhBvoLnD1d1G5 Bo1tSYOKLMAukxuxtJQ+PH YvWIC0lQtm KRoaZEHgiL9xKJMcN0i0Qx GtWpU7SHqgV1RwFQQktxml Tl44tA0fNgRrGpV9BSceG2 DxquI1QVOm iCHmTSuzLGN9H39wf7F1UK OeRZPfHEY1yCV0kX4foTaf bjogbGVmdDsgdmVydGljYW biXOsyW142 IHRvcDsnPkZlbWFsZTwvdG Q+QOUaDXN8qWvpJElyIIOy oN3mUPFoO3n9TgTdKoG7IQ nyJ5LtXWAa gnmiNf02fD2iZkRmJkX5KK wyI6CefhE2GWQphQYrSKty SWT6S07bi1C8IKMiZHNbXF Z6fEM5gP5o bGlnbjogbGVmdDsgdmVydG zjHSlcSTnxD874MCKagZod XrYmPXOnNH4nfCwogKV+PC 20np37O4Wy UizxZth4XNKsURH9rUZ3lH 5cXSWwKXmoc4V8tVK0N5Ua tlFrvb8vb0dvAHTfDTvpI5 7sgXYnu9E8 DEDcyEY9MYDsgNfhUzRbqK 93Oyc+VOKsnCsug1JyMsur q1ygk1rqpPb6TfJvVODubd FsaWduPSJ0 s6PuJi36K62dOGtgWHWrNE MnXYXgHDPceOgqkg7ugC2p Ii8+ZWWbvQQ3yBY0cX9yEj CxSfB2JGyt G656CpLpnIAcKfzjy2xex6 tveBh3XeNfLFEdfmAjyQwt LTG6a3KgZf03R2KcsTtdn6 EdDsl9yn17 iNQuz4A5cFX1K6KkIBKvqc wszMTxaKcwYM3tWJTxvkcb QFGrxT2oRDEjB3f9RlXrMj R2MEdpX5Ja xuF9IPMdjEKaFKUfjBHCrW 3uraeag7curzowKfNsYQNg HOv1VTe6OQBbyOdwRoAkBK J4KcA5DSB6 rQUmxJ3akFcrmknoxY9bRr c+GFk4s0utsHQtHK4duAE4 RV25AG54uWFkq1W0zYN7Q7 BhZGRpbmct brzurPW1VJPwEFUoyE86So 2gjNzfNi9mVNCyQIZ7JEFn kUEgC1FonI4kQnHgIOKbFU JvN4RgtXZi PNqwT680MIfrHdS9ZBSibt HuM3IzASCgbRszKeO6l3P1 Sg7ZIK71ZM56DC96zDBcn6 D0wBR4C5Sb QCSgyvttncuamOO4BMXjRP MczU28Rp0puNcgKb7jTVLn HVO0FUMlwWDgX2MfbL2nPd AjMDAwMDAw K3DacJThUYgcA660KBfzGx L3HKWubvMnP5RfYLLewBcm GaL4t7W0Gj6XAq57HW99CJ 01eIUic3L3 ySV6E6YlWOJvsazqtbcinU D8UBVpFLOaiX88Nd9qvXzr Nw5gFALeAXR3ERXliVNaG8 QabK4bGmUl OXWbUHQfS5ProFTqQUfqE8 50PRriHkF1DFXivrJpM2In WPCdiDyxVfQ5j6Z8Yz4SWK julxm7U7Sx PjwvdHI+XL66KDYaJX51yW XqwOXcq6dtbXo1DsUrYJTp GNG2aKgaBCphr0CcKEGeZ7 9jaHXmn3L2 IGNv (more content not included)... Normal [facility] Nonvisit Note - PTon 022 Nonvisit Note - PT Pt did not show for this eval today. ljm Normal [facility] Auto Diffon 02-16-2022 Basophils/100 WBC (Bld) 0.8 % Normal 0.0-2.0 [facility] Comment on above: Order Comment: Order Added by Discern Expert. Performed By: #### 2 875764, 3583307, 8013012, 52876670, 93760086 ####[address] [address] Basophils/Leukocytes Auto (Bld) [Pure # fraction] 0.1 E9/L Normal 0.0-0.2 [facility] Comment on above: Order Comment: Order Added by Discern Expert. Performed By: #### 2 688411, 0320401, 3311933, 68695381, 36168125 ####[facility] [address] [place] [address] Eosinophils/100 WBC (Bld) 1.8 % Normal 0.0-8.0 [facility] Comment on above: Order Comment: Order Added by Discern Expert. Performed By: #### 2 240527, 8876272, 3485182, 83493579, 43805328 ####[address] [address] Eosinophils/Leukocytes Auto (Bld) [Pure # fraction] 0.1 E9/L Normal 0.0-0.5 [facility] Comment on above: Order Comment: Order Added by Discern Expert. Performed By: #### 2 603135, 2438139, 5577261, 62351267, 97522381 ####[address] [address] Lymphocytes/100 WBC (Bld) 21.0 % Normal 14.0-50.0 [facility] Comment on above: Order Comment: Order Added by Discern Expert. Performed By: #### 2 304523, 7937192, 4495567, 61880614, 87471986 ####[address] [place] [address] Lymphocytes/Leukocytes Auto (Bld) [Pure # fraction] 1.5 E9/L Normal 1.0-4.0 [facility] Comment on above: Order Comment: Order Added by Discern Expert. Performed By: #### 2 396245, 9318336, 2105849, 56416940, 82329037 ####[address] [address] Monocytes/100 WBC (Bld) 7.4 % Normal 4.0-14.0 [facility] Comment on above: Order Comment: Order Added by Discern Expert. Performed By: #### 2 682899, 3643361, 8079108, 02942252, 78494635 ####[address] [address] Monocytes/Leukocytes Auto (Bld) [Pure # fraction] 0.5 E9/L Normal 0.2-1.0 [facility] Comment on above: Order Comment: Order Added by Discern Expert. Performed By: #### 2 553007, 7804191, 5397972, 18471312, 30392318 ####[address] [address] Neutrophils/100 WBC (Bld) 69.0 % Normal 36.0-75.0 [facility] Comment on above: Order Comment: Order Added by Discern Expert. Performed By: #### 2 959978, 1527883, 9664367, 85159044, 04342811 ####[address] [address] Neutrophils/Leukocytes Auto (Bld) [Pure # fraction] 5.0 E9/L Normal 2.0-7.5 [facility] Comment on above: Order Comment: Order Added by Discern Expert. Performed By: #### 2 564089, 6172114, 2971510, 73368251, 48436008 ####[address] [place] [address] CBC w/ Auto Diffon 2 Erythrocyte distribution width (RBC) [Ratio] 14.3 % High 10.9-14.2 [facility] Comment on above: Performed By: #### 2 094569, 1670366, 2566492, 81142166, 10361290 ####[address] [place] [address] Hematocrit (Bld) [Volume fraction] 36.6 % Normal 34.0-46.0 [facility] Comment on above: Performed By: #### 2 192566, 3430286, 4853258, 50321212, 21904782 ####[address] [address] Hemoglobin (Bld) [Mass/Vol] 11.9 g/dL Low 12.0-16.0 [facility] Comment on above: Performed By: #### 2 078694, 8760567, 6009932, 77042926, 11011736 ####[address] [address] MCH (RBC) [Entitic mass] 25.5 pg Low 27.0-34.0 [facility] Comment on above: Performed By: #### 2 897703, 5174469, 8974571, 91586842, 99499694 ####[address] [address] MCHC (RBC) [Mass/Vol] 32.6 g/dL Normal 31.4-36.0 [facility] Comment on above: Performed By: #### 2 260670, 6584532, 2619255, 96903929, 63563424 ####[address] [place] [address] MCV (RBC) [Entitic vol] 78.2 fL Low 80.0-100.0 [facility] Comment on above: Performed By: #### 2 280666, 5833016, 3745221, 04366941, 31764051 ####[address] [address] Platelet mean volume (Bld) [Entitic vol] 8.5 fL Normal 6.4-10.8 [facility] Comment on above: Performed By: #### 2 884553, 3839421, 7584199, 34652944, 41081940 ####[address] [address] Platelets (Bld) [#/Vol] 229.0 E9/L Normal 150.0-500.0 [facility] Comment on above: Performed By: #### 2 060998, 0920522, 2602072, 83804721, 86148647 ####[address] [address] RBC (Bld) [#/Vol] 4.7 E12/L Normal 4.3-5.9 [facility] Comment on above: Performed By: #### 2 018877, 9002106, 0968782, 53180411, 03435400 ####[address] [address] WBC corrected for nucl RBC Auto (Bld) [#/Vol] 7.3 E9/L Normal 4.0-11.0 [facility] Comment on above: Performed By: #### 2 221293, 5729469, 0485989, 92570591, 53588816 ####[address] [address] CMPon 02-16-2022 Albumin [Mass/Vol] 3.7 g/dL Normal 3.3-5.0 [facility] Comment on above: Performed By: #### 2 561804, 0724009, 2214608, 53492669, 42390509 ####[address] [address] Albumin/Globulin (S) [Mass conc ratio] 1.1 Normal 1.1-2.2 [facility] Comment on above: Performed By: #### 2 136522, 6247079, 5505719, 20534814, 25038835 ####[facility] [address] [place] [address] ALP [Catalytic activity/Vol] 48 Int._Unit/L Normal 21-98 [facility] Comment on above: Performed By: #### 2 708039, 2736342, 0722302, 86512837, 99919711 ####[facility] [address] [place] [address] ALT No additional P-5'-P [Catalytic activity/Vol] 16 Int._Unit/L Normal 6-46 [facility] Comment on above: Performed By: #### 2 015930, 2877124, 3350291, 73841219, 86737477 ####[facility] [address] [place] [address] AST [Catalytic activity/Vol] 15 Int._Unit/L Normal 5-43 [facility] Comment on above: Performed By: #### 2 044520, 1122350, 8392487, 03526085, 06709747 ####[facility] [address] [place] [address] Bilirubin [Mass/Vol] 0.6 mg/dL Normal 0.0-1.1 [facility] Comment on above: Performed By: #### 2 438110, 1848749, 5822903, 52452696, 38808605 ####[facility] [address] [place] [address] Creatinine [Mass/Vol] 0.7 mg/dL Normal 0.5-1.3 [facility] Comment on above: Performed By: #### 2 614791, 1790371, 2659922, 50665084, 37882214 ####[facility] [address] [place] [address] Globulin (S) [Mass/Vol] 3.4 g/dL Normal 1.4-4.0 [facility] Comment on above: Performed By: #### 2 307501, 7203648, 4463358, 62157200, 87611969 ####[facility] [address] [place] [address] Protein [Mass/Vol] 7.1 g/dL Normal 6.0-7.8 [facility] Comment on above: Performed By: #### 2 161960, 6132411, 3651715, 44632647, 99149043 ####[facility] [address] [place] [address] Urea nitrogen [Mass/Vol] 9 mg/dL Normal 5-21 [facility] Comment on above: Performed By: #### 2 465186, 0837160, 3253379, 94276796, 69980413 ####[facility] [address] [place] [address] Urea nitrogen/Creatinine [Mass ratio] 13 No Units Normal 10-20 [facility] Comment on above: Performed By: #### 2 172337, 4029227, 8270445, 77991505, 94189534 ####[facility] [address] [place] [address] Anion gap [Moles/Vol] 13 mmol/L Normal 6-16 [facility] Comment on above: Performed By: #### 2 947111, 6834424, 0720983, 37439354, 92454494 ####[facility] [address] [place] [address] Calcium [Mass/Vol] 8.7 mg/dL Low 8.9-11.1 [facility] Comment on above: Performed By: #### 2 898446, 0157003, 1346280, 98321943, 10051537 ####[facility] [address] [place] [address] Chloride [Moles/Vol] 106 mmol/L Normal 101-111 [facility] Comment on above: Performed By: #### 2 230999, 5268426, 1448893, 13221609, 79591932 ####[facility] [address] [place] [address] CO2 [Moles/Vol] 24 mmol/L Normal 21-31 [facility] Comment on above: Performed By: #### 2 117710, 6540456, 6782163, 92755119, 33055016 ####[facility] [address] [place] [address] Glucose [Mass/Vol] 98 mg/dL Normal 55-199 [facility] Comment on above: Result Comment: If t his glucose result represents a fasting glucose, interpretation should refer to the following reference range: 55-99 mg/dL Performed By: #### 2 041620, 8516935, 5180642, 59474198, 67178887 ####[facility] [address] [place] [address] Potassium [Moles/Vol] 3.8 mmol/L Normal 3.5-5.3 [facility] Comment on above: Performed By: #### 2 075924, 8809621, 9935974, 92934911, 08161537 ####[facility] [address] [place] [address] Sodium [Moles/Vol] 139 mmol/L Normal 135-145 [facility] Comment on above: Performed By: #### 2 569284, 0751042, 4509347, 57107819, 47540656 ####[facility] [address] [place] [address] Consent for Treatmenton Consent for Treatment [id number] 2059 [id number] 0CD:127 Normal [facility] Discharge Instructionson Discharge Instructions [id number]. [id number]:127 Normal [facility] ED Clinical Summaryon 2021 ED Clinical Summary [address] [address] ED Clinical Summary Person Information Name: LEENA INTERIANO/[facility] Age: 31 Years : 1990 Sex: Female Language: Sign Language PCP: BENTLEY LUCERO CNP Marital Status: Phone: [phone] Visit Id: Visit Reason: Headache; Cough; Chest [...] 02/16/2022 13:29:49 02/16/2022 13:29:49 02/16/2022 13:29:49 ADDRESS: [address] [place] [phone] PHYS DOC NOTES: MEDICAL INFORMATION: Prescriptions Given: New Medications [facility], [address] [facility] [place], [place] [id number], [phone] benzonatate (Tessalon 100 mg Cap) 1 Capsules By Mouth 3 times a day for 7 Days. Refills: 0. Medications to Continue Taking That Have Changed [facility], [address] [facility] [facility] [place] [id number], [phone] START: amoxicillin (amoxicillin 500 mg oral tablet) [...] PATIENT EDUCATION INFORMATION: Instructions: Otitis Media, Adult, Plie-kl-Hezx Follow up: With: Address: When: BENTLEY LUCERO CNP [address] [place] [address] In 3 days 02/19/2022 DIAGNOSIS: 1:Right otitis media; 2:Cough Normal [facility] ED Note-Physicianon 02-17-20 ED Note-Physician Basic Information [...] chest pain x2 days. 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 Physical exam shows right otitis media, dental [...] her that she can continue to use vobz-xft-hdtzzyo medications like Tylenol Motrin and Mucinex for symptom control. She is to follow-up with primary care provider. Patient is agreeable. Assessment/Plan 1. Right otitis media (H66.91: Otitis media, unspecified, right ear) Ordered: amoxicillin, 500 mg = 1 tab(s), Oral, TID, X 7 day(s), # 21 tab(s), Refills(s) 0, Pharmacy: [facility], 165.1, cm, 02/16/22 10:59:00 EDT, Height/Length Dosing, 86.5, kg, 02/16/22 10:59:00 EDT, Weight Dosing 2. Cough (R05.9: Cough, unspecified) Ordered: benzonatate, 100 mg = 1 cap(s), Oral, TID, X 7 day(s), # 21 cap(s), Refills(s) 0, Pharmacy: [facility], 165.1, cm, 02/16/22 10:59:00 [...] 02/16/22 11:21:00 (more content not included)... Normal [facility] Comment on above: Result Comment: Elec [...] Follow these instructions at home: ? Take sxpz-fyx-mtjrbtz and prescription medicines only as told by [...] 02/16/2009 Document Revised: 08/13/2018 Document Reviewed: 09/21/2017 [employer] Patient Education ? 2019 [employer]. Normal [facility] ED Patient Summaryon 022 ED Patient Summary [place] [address] Patient Discharge Instructions Person Information Name: LEENA INTERIANO Age: 31 Years Arrival Date: 02/16/2022 10:48:47 Discharge Diagnosis: 1:Right otitis media; 2:Cough Primary Care Physician: BENTLEY LUCERO CNP Provider Information Primary Provider: Connor Castellanos DO Advanced Liner Man:Cary Archlueta PA-C The exam and treatment you received in the Emergency Department were for an urgent problem and are not intended as complete care. It is important that you follow up with a doctor, nurse practitioner, or physician?s orthopaedic physician assistant for ongoing care. If your symptoms [...] Address: When: BENTLEY LUCERO CNP [address] [place] [address] In 3 days 02/19/2022 In the event that this physician does not participate in your insurance network, please consult with your insurance company to find a nearby participating provider. Patient Education Materials: Otitis Media, Adult, Wkll-ez-Zapx A MESSAGE TO ALL PATIENTS REGARDING OPIOIDS PRESCRIPTION OPIOIDS: WHAT YOU NEED TO KNOW Prescription opioids can be used to help relieve vqymetlv-ds-goylvo pain and are often prescribed following a [...] be struggling with addiction, tell your health critical care rn and ask for guidance or call [facility]?S National Helpline at 9-067-816-MLTP. b Source: Department of a (more content not included)... Normal [facility] Influenza A&B Agon 2 Influenzae A Ag Negative Normal Negative [facility] Comment on above: Performed By: #### 2 [id number] ####[facility] [address] [place] [address] Influenzae B Ag Negative Normal Negative [facility] Comment on above: Result Comment: Test sensitivity and specificity vary for age group, specimen type, antigen types, and prevalence of disease. Test results must be evaluated in conjunction with other clinical data available to the physician. Individuals who received nasally administered Influenza A vaccine may have positive test results up to 3 days after vaccination. Performed By: #### 2 [id number], [id number] ####[facility] [address] [place] [address] Prescriptions/Work Noteson 0 02-16-2022 Prescriptions/Work Notes [id number]#1. 00CD:127 Normal [facility] Rapid COVID Antigen ([facility])on 02-16-2022 Rapid COV Int NEG Ctl Pass Normal [facility] Comment on above: Performed By: #### 2 [id number] ####[facility] [address] [place] [address] Rapid COV Int POS Ctl Pass Normal [facility] Comment on above: Performed By: #### 2 [id number] ####[place] [address] [place] [address] SARS-CoV+SARS-CoV-2 (COVID-19) Ag IA.rapid Ql (Resp) Not detected Normal Not Detected [facility] Comment on above: Result Comment: The MWHS? System for Rapid Detection of SARS-CoV-2 is [...] For in vitro diagnostic use. In the [facility], only for use under an Emergency Use [...] or revoked sooner. Performed By: #### 2 [id number] ####[place] [address] ADMITTED TO INTENSIVE CARE UNIT FOR CONDITION OF INTEREST:FIND:PT: NO Normal [facility] Comment on above: Performed By: #### 2 [id number] ####[place] [address] EMPLOYED IN A HEALTHCARE SETTING:FIND:PT: NO Normal [facility] Comment on above: Performed By: #### 2 [id number] ####[place] [address] FIRST TEST FOR CONDITION OF INTEREST:FIND:PT: Unknown Normal [facility] Comment on above: Performed By: #### 2 [id number] ####[place] [address] HAS SYMPTOMS RELATED TO CONDITION OF INTEREST:FIND:PT: NO Normal [facility] Comment on above: Performed By: #### 2 [id number] ####[place] [address] HOSPITALIZED FOR CONDITION OF INTEREST:FIND:PT: NO Normal [facility] Comment on above: Performed By: #### 2 [id number] ####[place] [address] STATUS:FIND:PT: NO Normal [facility] Comment on above: Performed By: #### 2 [id number] ####[place] [address] RESIDES IN A CONGREGATE CARE SETTING:FIND:PT: NO Normal [facility] Comment on above: Performed By: #### 2 [id number] ####[place] [address] Rapid Strep w/rfxon 02-17-20 22 S. pyogenes Ag IA.rapid Ql (Throat) Negative Normal Negative [facility] Comment on above: Performed By: #### 2 [id number] ####[facility] [address] [place] [address] Troponin 0 Hr.on 02-16-2022 Troponin I.cardiac [Mass/Vol] ng/mL Low 10.10-27.10 [facility] Comment on above: Result Comment: The 95% CI (Confidence Interval) PPV (Positive Predictive Value) for myocardial infarction in females is 38 pg/mL, in males 51 pg/mL. The results should be used in conjunction with clinical conditions of myocardial infarction. (Access High Sensitivity Troponin I Instructions For Use, [employer], April 2018) Performed By: #### 2 [id number], [id number] ####[facility] [address] [place] [address] XR Chest 2 Viewson XR Chest 2 [...] Signed by: Roosevelt Malcolm M.D. Transcribed by: AMRÍA ELENA Technologist: AYALA Gonzalez [facility] eGFRon 02-16-2022 GFR/1.73 sq M.predicted among blacks MDRD (S/P/Bld) [Vol rate/Area] mL/min/{1.73_m2} Normal >=59 [facility] Comment on above: Order Comment: Order added by Discern Expert. Result Comment: eGFR is race adjusted. AA=. Performed By: #### 2 [id number] ####[facility] [address] [place] [address] GFR/1.73 sq M.predicted among non-blacks MDRD (S/P/Bld) [Vol rate/Area] mL/min/{1.73_m2} Normal >=59 [facility] Comment on above: Order Comment: Order added by Discern Expert. Result Comment: Asset Management Coordinator chance kidney disease could be indicated at eGFR's of less than 60 mL/min/1.73m2. Kidney failure is indicated at less than 15 mL/min/1.73m2. Performed By: #### 2 [id number], [id number], [id number], [id number], [id number] ####[facility] [address] [place] [address] Coding Summary.on 01-15-2022 Coding Summary. CD:[id number] Gh 0bWw+PGhlYWQ+FA8SLTPjT 28ukVUwrN3XU1cNCM4SDWL DQVFQGB5RHF6eySG8IPzhS 2VybiAv CmpqtLLnWG86RQu8QWX1wF xgAClwfC5otCFeH0l1MhZa RA85wN59DVjrPJUbDbV0Dm ZpbjsgbWFy D2tyOfHcpQIqAqm+PHRhYm xlIHdpZHRoPScxMDAlJyBz zHvnVN3nVv3hIVPjGDJqtB xhcHNlOiBj n2mjREYyOEbqXN2dlUhtP1 KwcJN8ERUbt2c3Pl77aVH+ YQCaBTG9dPccKThmb152Tv Wjl8tfBTM1 uNYqJCqsFSX2Z74dk5R8QN ZpXQOrCMQ9yZC7mP9nuWne tckpY1SetUOnKlH3JLP8wY YnrI9gyPso qgfyzG5aOfz+X46DPX0RUV CWYD3XFep4M7WvKbvqnVU+ IB72YDZyQW42jHJqpTPuv1 izzFi4HaOl BLHdXSG6cSlkFMrdr3PeTA XzT01tdWTui7E0PPKioIyo jKEjAwQwbWT8pB5tQJuqte wxq7rurpts Pjhvh0xdvx80dH04L43pLP ybVWLuNWI1EIQvXNDwnOpw ep7kbX1cKw2+NLozs7bjq0 tkvOq0ZeNo UQEcqfLlfHsfVKX7c8NqIf 39B6XzfTqgb0MyGrc8sx83 aIUem8V4fQW2LScmXICcrY 3qRTryZrZ2 QTPjDiCtvI33jENpFYlpCw 0dkKrplOylDY5tYWYvehzk ZPHknG1rMMWiyKZyeKwlDU 4wNTBpbjtm o987FaGwGCL3PRRmfOSzD7 JnjO5rItKfCATlCHMeG6Aq sXUsTUlsE923HFerDuX2QP DmfmGkQ7Gj ZWQhrLouGfI3l1C3Dr0Zo4 ZzmcatUNB4WBygDSR4DxB8 ShUsYbA0G3UjRyg9BEUixP fkJM2uT7Ku GXGoyhzfqzuzaSA6WLVrJS FksU77nDElUOzhCs5vn6P6 m925QTMmLBMkiV39Aj3rxK ogMTBwdCBU lW6rfshrm8fcphbpQvQmQR CjUZm0NHh7OQJyqLyyLxRt GJQ1XjP5BLT4hHUcgL3pdT cvoyqayD0b Oyc+K83qrX0bUBR2BWB5qf teQPOtlvLoSK53OC65P8Eb PjwvdGFibGU+PGRpdiBzdH hePQ8cMcVk v8pju4MoKCloP0VqKSBjWF hpUee4AAIuITJ0oEP2nG6r QHZhPInbz8I4wBJ7B1Qhkk Vkcn3km4fo LYBmXVrrO69rsFOoo6H6YW YqnAI4UXYzkYxkXaIgeN65 Oyc+RLVgfNklo7KuQhtvt2 dmi6kflBv4 UxRfDDEgppYvsHdaSWT1a7 RqAx62B86cTTlxVYMrLWEn WYMyHWPlaZvatz8dbB8rZt 8+PGNvbCB3 dSN8mJ9vVPGiGxD5RElzG1 18VxRzsEHeFbsrb9sho5cn rKs0KdZpQZFczsXixBoyIT E6j2MpEv56 D32vAAtiPIThGDPuCWDnIU OjoUlanj7osS1rKz8+PC9j g6wjam57uW12mUU+PHRkIH K6fMplBSts SNFhnP0sJVrtGbP6CYKyTe EsnG65cJCsWSajXa4ynYmh mQveAM1aTXNurazdm117Dg Crd3zcTNTt mGTkNIemGUG5E39xj1E9FP KkOSQzTKL0oEB7tB5tfPnb bjogbGVmdDsgdmVydGljYW dtJEymZ780 IHRvcDsnPlBhdGllbnQgTm XvFBf9P9UyKut0BLIusEhb TJ5hcHNjOEalSb5paGumqE hoSP8pCMYr znlaq712UhNsy1ikJBCdrK XvJShpJFF6L95eh0W7KDBx BMHmYFX9aAW4nS3ikHrcim ogbGVmdDsg reSohFjkAXlrMKjaP684VT RvcDsnPkJpcnRoIERhdGU6 QX91ZO16nTAqc6C8mRU6N4 BhZGRpbmct jnhicIZ3ZGDpGKZajE60Zd 0mtHxlHo9gMUVmCSZ0PWNb iGYkR1MfrT3gJoHbHPOjXQ RuP5SlfNMz NRydM709EQhoDzP1YRPakq YnK1NcLQRwdCarOpU0e8D4 Jp3MF8N2KW20ZS35jWFjr8 M2oRB5K1Kz BJEjnihqmgmguQH7DDDvBZ JqfL47Cb8doQyoEt8vVNQe UWL3ZKZvvCMwC3IasJ3gMk AjMDAwMDAw I6GrrQRqOKwmB565OPlkLv A8SBEsqdDjA4UzOKVceNmn HjR8t2W3Lj3UPXz8WD40CN 20jQAoi8C6 lHD7R2CzWNTfuyycfehudM Q8AHZqSPRcaN82Wk7epVcx Dd0yIVRzYWP4VCSzcVKoI1 MdvZ7yDpPd GKBpLZKfV9ChjWPjTHeuU6 51QNfcBtD1TQJzerUkH5Qh LJAxsGpfOwT7k8E7Dj1FNJ EhZW13DPI6 gEG8QC41UE31R9ZwQpmtpC FibGU+PHRhYmxlIHdpZHRo LIwsCPKaNfYnoSlsFQ9hYz 9yZGVyLWNv aNczfOHrKbBrv6yqEKTjVD cmRI2xxMppM4FvhCZ1KWAu w3s2Vy84S43sB4RozPX+PG ZlxPF9sDG0 cK8iLlRgYcL6VIeaD791Yy XydNGnLdymm8svm0bamPj4 JsM0PVZtohGryCiuVVY6o4 VoRj59K23g IHdpZHRoPSIxNSUiIHZhbG tpod5mxD2sHm2+PGNvbCB3 cQU3uM8wUfFwQkL9ELuxM6 49InRvcCIv Zwrmw4mdp0tulGq2MaPyAN VuicOlrJleMES2d8OgFo01 U4MeaWycx5OqLjp7fq35hY Iqe4L4aEN5 H6LdXKTrantzpSFruMzkYQ 4iADQhgpspGFCdtN9bLHEi X4p5HuOxTkE0QAzfV2Yxft Q7PEHrwZIy NYvlQFJ2E06fd8W1LUNgGA LqKFL8gCQ2hR0pbOyaospx bGVmdDsgdmVydGljYWwtYW flY167SIWb bMrpAOKnrB3sBUSvnZQzvT duZU7dLUEfklbmVypPMWwv IEpBREEgTTwvdGQ+PHRkIH O8oNwyWMbe QNBpaY0oLRMyW1z1RbDeTi Q5KCauF2HmTUCgkjewGt09 eA0fSvWmJfL5IQpeY1Taxo D4BACptOOi LHtqKBG3V85mp8P3XVIkZL ZiHMZ9eGJ0sL3elVotwmic bGVmdDsgdmVydGljYWwtYW xjO622PXGp uSooJnE6LcG2OxL8LSX2T3 XaHvn2VAWowGvcFH5kyZOi AHtpHn4fsPhqmVcyQN3oLD BpbjtwYWRk nG9zDCYcaYNfbDdrOD4cSL Awomexi048RiIpZBT9CMRp cUWlF0ZmbB8lTiMhIKEvAN BkL8FlcADs WBmiH131QRmaMeC2CVYnkf FbQ8FyFSCstQttQbB5d8M0 Yp0iYQFGJWZxognivJV+PH WcOUA8lXnl MRjdCQThsP7yYEWqD5e0Xz OoNwW4WUnjW6GzPAIkalqb Lk93cX9mGaQvFvN5WZgaS3 KdqjM7IZIx pUHwGMcdAHY4I54xi6Y0XK BxKILeSDZ9nFX6gY6ymUgt bjogbGVmdDsgdmVydGljYW ghNPhlM139 IHRvcDsnPkZlbWFsZTwvdG Q+FASbLMV0nCnxBIvwKNHr fX4fXNOdK4s2CgUgGhF5VC isM5SsJMGf glqpLg95kG5aBqVcNrJ4VX vuZ6UdcjA1BOGfjGOaPKnz BSI9Z40oq6O3HFJoOPZzGM S7wZB9xH3n bGlnbjogbGVmdDsgdmVydG vdDDbkDCebW023BXAvsIgo RvNkPTZzYA0bpXmtoXW+PC 11ry87Q9Nk HjinOcu2XDCmUCB3kJP3vK 1iHIUjDVnxb3S4jXC8V7Tm jiOpge8vk3jrKQBuZWlfL2 8umNGle6L4 OXPyrUP1OGHrdCnzRbKslN 93Oyc+RVVheWmzi0YfZade f3bqv5ijnBw7ZhFkNWShoq FsaWduPSJ0 j8FnUk75T94dPTlcGMPvLG HhTFQiLOJcpCztsr5hlV1u Ii8+CGItmJC8gRN2kI9lTv CsNkF7ENgu E413KqGviOWuAozvf8arr0 sslRm6MrFlTVFdkbZcxMhn PRL2m4GyXm34B6MqlNxht4 YiBkl4vs94 bYYqm7P4wUE2M8TfBROpij pqeBOyvAqrCR6qZGKwfbuq UMPboF5xCQCeG8i4PyQuHu B1NLpeB5Hw bdR6OAFzgGYaDQUgySFVrZ 0tvudcw5uqfqkgOzQxVFSx AYt6OJc6RROskBekXhYpYM M8LnB3ZHU9 dYVuoD8qlWazqovgmO7qXx c+MJc3q6fhcAMsXQ3fgXO2 YM82XI62jSSck5Q9hZE3P6 BhZGRpbmct ptjznKL3WROvQOBooE79Eu 3dvExzBw2iQUJcABQ7GMBv bBGuE5KywY6zHpEzAGFuPO SeN7IkzWVz ZLzyC922PYelDzZ3YRXdlu MuP0LkQVRfuTupJoU4v3U0 Sx9KQD70JG29OY13kOBtz8 J6qJV8K4Uw ZYRvwdezsgytgBD4NQQpGN VfnO46It6egFkyTr9rFQYz VGK7RUJzgKUyS4YngT0tWq AjMDAwMDAw B1MhyVJlXNenV711QOkuQq X8WXRyqiTeC1ZzHDOnvTdf LrZ5r6J8Zm2VUk63FP20HR 52sGDmx2W4 dNR8V7WjXMQwjjbcknbrkF Q2RDTwFTGafX35Iv8jdEcf Ty7bIFHiARH7JDDteHNhA8 WupL4xJoHz JJOlGQFlB8JnxZUuQXgwK6 26AAyeLlW0HYQuxlZxO8Jy BDZzpTkkXlJ5d3J8In7JPZ ipocl8C8Xi PjwvdHI+EN41GXCmMF22iI KwzXZui3skaTh0IfUsMOOh LYT9zUswJMxau6HkHOOzB2 8zhPCwu8J7 IGNv (more content not included)... [facility] Discharge Instructionson Discharge Instructions [id number]#1. 00CD:127 [facility] Comment on above: Other Comment: WRONG FOLDER Prescriptions/Work Noteson 0 01-14-2022 Prescriptions/Work Notes [id number]#1. 00CD:127 [facility] Grp A Strp PCRon 01-10-2022 Grp A Strp Intrl Ctrl Pass Normal [facility] Comment on above: Order Comment: Order Added on by Discern Rule. Performed By: #### 2 [id number], [id number] ####[place] [address] [place] [address] S. pyogenes rRNA Probe Ql (Unsp spec) Negative Normal [facility] Comment on above: Order Comment: Order Added on by Discern Rule. Result Comment: Test ing performed using DNA amplification. Performed By: #### 2 [id number], [id number] ####[facility] [address] [place] [id number] Consent for Treatmenton 12-14 Consent for Treatment [id number] 0CD:127 Normal [facility] Discharge Instructionson Discharge Instructions [id number]#1.0 0CD:127 Normal [facility] ED Clinical Summaryon 2021 ED Clinical Summary [place] [id number] ED Clinical Summary Person Information Name: LEENA INTERIANO [facility] Age: 31 Years : 1990 Sex: Female Language: Sign Language PCP: BENTLEY LUCERO CNP Marital Status: Phone: [phone] Visit Id: Visit Reason: Throat pain - [...] 01/09/2022 15:57:51 01/09/2022 15:57:51 01/09/2022 15:57:51 ADDRESS: [address] [place] [id number] PHYS DOC NOTES: MEDICAL INFORMATION: Prescriptions Given: [...] With: Address: When: BENTLEY LUCERO [address] [place] [address] [employer] In 3 days 01/12/2022 Comments: You should self quarantine for 5 days. Return to the emergency room if your symptoms get worse, you develop chest pain, shortness of breath or any new symptoms. DIAGNOSIS: 1:COVID-19 virus infection Normal [facility] ED Note-Physicianon 01-10-20 ED Note-Physician Basic Information [...] PCR Influenza A&B Ag Rapid COVID Antigen ([facility] Rapid Strep w/rfx Medications Administered Given ibuprofen 600 mg Tab, 600 mg, Oral Disposition Plan Patient Discharge Condition Stable Discharge Disposition Discharged home Discharge Prescription List Prescriptions No active prescription medications Follow-up With When Contact Information BENTLEY LUCERO In 3 days 01/12/2022 EDT [address] [place] [address]- Business (1) Additional Instructions: You should self [...] Diagnostic Results No qualifying data available. Normal [facility] Comment on above: Result Comment: Elec tronically Signed By: Paul Moss, Devendra H\.br\Date and Time Signed: 01/09/22 16:32 EDT ED Patient Summaryon 022 ED Patient Summary [address] [address] Patient Discharge Instructions Person Information Name: LEENA INTERIANO Age: 31 Years Arrival Date: 01/09/2022 13:49:16 Discharge Diagnosis: 1:COVID-19 virus infection Primary Care Physician: BENTLEY LUCERO CNP Provider Information Primary Provider: Devendra Miller M.D. Advanced Liner Man:None The exam and treatment you received in the Emergency Department were for an urgent problem and are not intended as complete care. It is important that you follow up with a doctor, nurse practitioner, or physician?s orthopaedic physician assistant for ongoing care. If your symptoms [...] Address: When: BENTLEY LUCERO [address] [place] [address] Business (1) In 3 days [...] opioids can be used to help relieve uqoeamkn-ht-ejopcp pain and are often prescribed following a [...] If you (more content not included)... Normal [facility] Influenza A&B Agon Influenzae A Ag Negative Normal Negative [facility] Comment on above: Performed By: #### 1 [id number] #### [facility] [address] [place] [address] Influenzae B Ag Negative Normal Negative [facility] Comment on above: Result Comment: Test sensitivity and specificity vary for age group, specimen type, antigen types, and prevalence of disease. Test results must be evaluated in conjunction with other clinical data available to the physician. Individuals who received nasally administered Influenza A vaccine may have positive test results up to 3 days after vaccination. Performed By: #### 1 [id number] #### [facility] [address] [place] [address] MICRO OTHER TESTSOrdered By: Ramses Camargo on 01-09-2022 Influenzae A Ag Negative (01/09/22 2:21 PM) Normal Negative [facility] Man Sero Influenzae B Ag Negative (01/09/22 2:21 PM) Normal Negative [facility] Man Sero Rapid COV Int NEG Ctl Pass (01/09/22 2:21 PM) Normal [facility] Man Sero Rapid COV Int POS Ctl Pass (01/09/22 2:21 PM) Normal [facility] Man Sero S. pyogenes Ag IA.rapid Ql (Throat) Negative (01/09/22 2:21 PM) Normal Negative [facility] Man Sero SARS-CoV+SARS-CoV-2 (COVID-19) Ag IA.rapid Ql (Resp) Detected *ABN* (01/09/22 2:21 PM) Invalid Interpretation Code Not Detected [facility] Man Sero Rapid COVID Antigen ([facility])on 01-09-2022 Rapid COV Int NEG Ctl Pass Normal [facility] Comment on above: Performed By: #### 2 [id number] ####[facility] [address] [place] [address] Rapid COV Int POS Ctl Pass Normal [facility] Comment on above: Performed By: #### 2 [id number] ####[facility] [address] [place] [address] SARS-CoV+SARS-CoV-2 (COVID-19) Ag IA.rapid Ql (Resp) Detected Abnormal Not Detected [facility] Comment on above: Result Comment: The [facility]? System for Rapid Detection of SARS-CoV-2 is [...] For in vitro diagnostic use. In the [facility], only for use under an Emergency Use [...] other viruses or pathogens; and, in the [facility], this test is only authorized for the duration of the declaration that circumstances exist justifying the authorization of emergency use of in vitro diagnostics for detection and/or diagnosis of the virus that causes COVID-19 under Section 564(b)(1) of the Act, 21 U.S.C. ? 360bbb-3(b)(1), unless the authorization is terminated or revoked sooner. Performed By: #### 2 [id number] ####[facility] [address] [place] [address] ADMITTED TO INTENSIVE CARE UNIT FOR CONDITION OF INTEREST:FIND:PT: NO Normal [facility] Comment on above: Performed By: #### 2 [id number] ####[place] [address] EMPLOYED IN A HEALTHCARE SETTING:FIND:PT: Unknown Normal [facility] Comment on above: Performed By: #### 2 [id number] ####[place] [address] FIRST TEST FOR CONDITION OF INTEREST:FIND:PT: Unknown Normal [facility] Comment on above: Performed By: #### 2 [id number] ####[place] [address] HAS SYMPTOMS RELATED TO CONDITION OF INTEREST:FIND:PT: YES Normal [facility] Comment on above: Performed By: #### 2 [id number] ####[place] [address] HOSPITALIZED FOR CONDITION OF INTEREST:FIND:PT: NO Normal [facility] Comment on above: Performed By: #### 2 [id number] ####[place] [address] STATUS:FIND:PT: Unknown Normal [facility] Comment on above: Performed By: #### 2 [id number] ####[place] [address] [facility]:FIND:PT: NO Normal [facility] Comment on above: Performed By: #### 2 [id number] ####[place] [address] Rapid Strep w/rfxon 01-10-20 22 S. pyogenes Ag IA.rapid Ql (Throat) Negative Normal Negative [facility] Comment on above: Performed By: #### 2 [id number] ####[place] [address] Coding Summary.on 11-26-2021 Coding Summary. CD:[id number] Gh 0bWw+PGhlYWQ+TK5ZQIYyD 58yeWPpzI1GV9dNZM7LDRB ZEQHOSI6YNN3nhQN2FJpqC 2VybiAv KqhyeGOnHV25DMf1FFW8qW vvOOwqsL8ksPWdO4h8PzBm MM56vB88BHbxKVEzMpR9Fs ZpbjsgbWFy D6iyJkZygGDhFdi+PHRhYm xlIHdpZHRoPScxMDAlJyBz rDnfER6tUs0pRTKuJEZdyH xhcHNlOiBj h3muYJBbVYdzSC4hqJvbP3 GdqXW6NKGax6k6Nv28dBU+ BCZzURA9wYbyWXdoa883Qh Qvr0vwHKV2 dSDrWErdQGM6S49vn9H2WJ UbGNQqDRZ6sKQ7oL1mvQos hmqyP9LhwHXjFxB3KTT7tK MbrX7cfQdw mswgfH3vEqs+M13MQP7TZC USBU9OFtn6W8LkEizjpWO+ CX45DJYaAW25pJVnkCFhs9 ykkWa9MxOm NBUgNEA9zOwyXThvk6XrHK RgP93ilQHec1Q8PJMygSut tMBrHdNcfQF2rZ9wQOkfbu ane7bnxgxc Twrnk2obvr24bE11Q27jVU xtRCHrSSG8SJRrVPFuuKif sp6pjG0fEx3+YOngw6cbh4 hcqVf0FjXk XCPaviDnzSjzDDU7r3MzJy 19H3NbxAtfl8UrBgy1fn96 pCLud4P4jFY6VFnwDFGzzR 3hDWhpNhR9 UDEnCsQwsZ59wCLvRZaeCb 4puCzyrEjkDD6rMINjhrcy JAJyfS9dZRSgvGGurAwzCL 4wNTBpbjtm i512NrIoWIH0LPHbgCOtE0 NvhG6oVaFlKDNoRSGgH7An aUHpBYbuB665KWklSdH2QA EnkuLkT7Qn VBGaqNwtUkY1r2Y8It7Ms7 EbuostQWK1TOsrTHZgBgO8 GaSsNkV1J6MgZrf4GRXcvJ qzKQ7uZ8Yc IEQbvjzapymdbTZ4PHKnBD VzpQ86jKJaKCygLi8un8U0 z753DHDaPSIrmN07Yb4oxU ogMTBwdCBU iW0iigqfe2lvoamzIdKwSS NxWYf2AWa1FOAywOonWlLb BAN7FzI7TNG9mJDuiX6uaZ gndtqpyT5t Oyc+U95kbG7pAFF6JDA1gc hxEFPrboEkPT66AE60L2Yr PjwvdGFibGU+PGRpdiBzdH oiWV1tOkRo m9mfm3QdTZsgB9YnNVYcDB vkNqh2THVaDDK2zOV1nR8p LJSyCJfhg6H7bKA3P6Itpp Lzrl5xe8et VPOfXDwyV42zpTHms1F1DH TpfYM7KDJwvZvtZcEftR20 Oyc+OEWxqBbba6VkQsqxp7 asr5ktaJx1 DxGqUVKjvwBgfFiwYHF5g4 IuTn79Y16kORirGODjOYAh YIGnYQWuoGouiz4dkE4gHt 8+PGNvbCB3 xTQ2mW7hZLNaLpW6IAleD9 22QzMfaZEtScdwa0qja4lq sYj6YhDcAXFlvvZpoNzoWD P0n4PsLn07 X16vDQexCGOrVNAmUJRbMI KfhEfzch8vbI2rOx3+PC9j l6vunk64bO19eMP+PHRkIH H8xLlwTJnh ZSXjxT2eOLjjHfH6SSGjDb NmuJ04fSCbNLgbOx6plHxz uWgjND1tABNlbyivo373Ai Xsr0tsGSBu fKBfXSrbYAI8Q33pb8O0QC XaPFOnSGN9hBH8hJ5wwXxf bjogbGVmdDsgdmVydGljYW gdPMnbM570 IHRvcDsnPlBhdGllbnQgTm SfMNi7Z0EdSqa5EBMdaFva PY1doKQlXMolXb7jzAbgbS enAF8yIGPz hgsqd763PrJuq4khZWEilE DjLWjxLZH8Y86nz9I9GBRh GMVyEWJ6oGO6lN2keFoool ogbGVmdDsg iiPntNsrQSqvMImpV951RK RvcDsnPkJpcnRoIERhdGU6 WJ77DE75cTXlq7H9vEN5L2 BhZGRpbmct treorPR8SOXmXNOleW78Le 2raIrtYv2sUVDuRUX6WGBs sDVxY4YlzT7fGvMvEXGkLO KeX9WgiEWp PXygQ008FVruYmD0TVSixe IvY2QqBKUptVguZmT1c2Q2 Dz4AZ5Y1LF62BH30lSKkq3 X7qDK0E1Fq TXWyhyiwcvalnMB5WNLtZK LilT96Se3ecXkmUb5xSMIy IPT0VEMpdAAiE4BnnR1gWs AjMDAwMDAw W7ElhHYgNMdwW389PKcvEd L0QFXkmoSoF4NyQFVfwNvj TcS8s9U9Ze5VOCj6GH52TN 40qSHfz9H3 wAA7M6UcBYFxnqunmsenkU S8YWWbDNOcrH98Om4zxTde Ww0tRHHpXDP5NOEgrNOiP3 BdwE8fDhMi CWVaVSHeX0LavFGtMMztJ1 99AAtePuP8EJIiquZwB4Uj HBBjiAdxCrF4v4N9Jl7PYI OlXY45XZQ7 iEE1CH95PA02I6EdRxpmeI FibGU+PHRhYmxlIHdpZHRo MAeyXNHeVvYlvDuwTI3mBq 9yZGVyLWNv mWrvkUKjNqDmw8hmBVCmCQ vmXE6gcJynE5RhaHT7JUHi s3v5Dn55B90lG6LqfOO+PG HljQS2sJM4 hB0eVaIvSgJ6PAukB506Eh FraFEnFjxhm1fqz9ahlDf9 QqM8YXYfqgHevUrdDRA4t6 NiJl52W19k IHdpZHRoPSIxNSUiIHZhbG rzti7joK2lRo2+PGNvbCB3 sNO7yK7lKsDzEfL3UZmaM6 49InRvcCIv Miagc8hwj1nllIe9HuGqOW LbnzIxoFqdNAN6x2BcIo27 W8OihLxdw6TaRes0ro18zE Unb6Q4sCW0 Q5QhVGKzhhtruEXsnHlmVY 8fRZLdpalnZLHbfL9yNRYo S0v2EqFgYbQ2VLpnR5Fwsx Z4SGKtdCFd CKryXFH3A92qt9T9GQLoLN SpFZL9dGR2qM0zfNdotusi bGVmdDsgdmVydGljYWwtYW pnD628QZPv rFsxIIXxeJ8fGIAynLCbtN ixEA1uDDVfavfkGpoPFAhv IEpBREEgTTwvdGQ+PHRkIH S0nYeoKYlw SXMsyG7mUEXuY7h8NrUdYj V7UGtdC5HrYZGtnwxvVm91 jB8rNeLmYqZ7EKiuJ3Qiwe Y3USBfdHQf QClwMVQ8A52rj2P8PSCkDT MmKCL0gBB8uL8ukFhvczng bGVmdDsgdmVydGljYWwtYW qcT684IZBv uGjqChZ6YvN1YkW0JRB7U5 ZpPzd8VPTdnJhqSR8isLOm FDloWo9rqTrpmPoqSZ9dQF BpbjtwYWRk eW3fPFPjaBHxiLauXY1vUX Vzizmjp515WjNsPAL6MQVd nKSwQ0RgnW6oCbXsIXJjXG CoM0XmlBWw JKqbS819XOfpToI6IYQhkp EkX2XbXGOhmXvhHbU3g0J0 Jq1lPLODYSXexcghqMD+PH BmIRX7dTaj ZFcwYUZosL2qEHOrB5b3Dd VyGrC6QFkkL5JkECPmqjzh Jl64jD5mJoPrEcQ3OXrcV3 RwgfU5LWZu vULbJOpeYBZ7N11ko1W5YF KwIOGiMWL7jSW3sT9rrMky bjogbGVmdDsgdmVydGljYW rtBQzjH215 IHRvcDsnPkZlbWFsZTwvdG Q+RHUuVBN4jMykYTnnPNXs pH3dBEKwK2v9UfQjGiJ2YZ mkE4DpJNQn drzdTx18qY2cWnAbFuJ5DR deY6WhlrE7KFEscQZvDJif XPO7I12hj8P9UEVkHSCpVW Y7tYG2jS8v bGlnbjogbGVmdDsgdmVydG qcOTwaIZecR688BDXudMbi ZoQjWFMwBC3eaBvytGY+PC 91zy48R0Rw UyxtZld1GBKpHRR6uTF0uN 5wKHUmFVean5V1cHN8U8Ng jqOunp8wt4yaQKDmEPdvA4 0kzFPdt4W5 TZVcuMC3NZQgbScfPgUopC 93Oyc+RTWkmElbs4HuJfdj k3ejk2obqAo3OcMaDUYbzv FsaWduPSJ0 h6EbXw11Q29hXClyMXYbNW JcFLAeHXBvrWfxof5fdG8u Ii8+TTJguNF0uZI1lD6oTx MxTnD4PMiz S002MfPrpMGkUaumz1glu7 ijwKh8UfQsHQDwmgUzcTih UQV4s1JrUr56P8BcoXhxh2 OxQue7dz33 nODmr0S6kSD0J3OrTFLhmg tnbXVslOltSY8mLWEyzdzq DLVidN7pNEMnQ1t4QsBiCp J8KAezE9Pq xlW1NENmaSCnICQdvQQEoN 7pzharp5danbrjTdYeNDVy SKw2UQj6FWEtzCtcQnZmNR N4KgZ2XDZ7 kFAdjX7bxKliusaxbC6kCx c+OIg9w2xwqAWfVS7vnBV3 SO06XC67lGDxb2R7sPX2N1 BhZGRpbmct kyqxqKU4NNQvWZMudY83Iv 9otDdcWk4dKJFhPBA4DIRp aBZsX7WwmD9aJdVsRIXtTU UnX0AoeZSa YZlvM322CRnmGzW0TQNzbs MoF7IuANYjqYteArO8l1F0 It1TFU57VK05JZ75oJFuu1 A8dJE9K5Gq WDIxegzypekkrLR0QTXqJS RbrA55Dr4vqCdlMz6mMFBy DNR0MRIwvLSzN3TlfW3oQp AjMDAwMDAw I8WawSVqVZvhW393CSmvYq Y4QJFztcLkA8VhCCUdcDid IwK5i2F2Xv4TDl83AI41ER 41cARcs1D3 wUP4T0TaKPJzdoxexoohpC P2ZYJgJBNuuQ34Zd6euWzi Qw4cGOJdQVV8THHdnMHeP0 YrqJ7pGpWr GDJqHITsP6CmbAJrMGppY6 05DHcuDgB0BBCftfWuO8Nd LXSnzPcqYgE9t9J1Qo9XJQ wjiiy1Q2Bm PjwvdHI+EI85CFUiRW24dP FqbCOof3hqbQx2RtQqXVVv LYZ7sIlnUWhba6AoPSCxX8 8rpFWiz5M9 IGNv (more content not included)... Normal [facility] ED Note-Physicianon 11-20-19 ED Note-Physician Basic Information [...] day(s), # 10 cap(s), Refills(s) 0, Pharmacy: [facility], 165, cm, 11/18/21 12:18:00 [...] In 3 days 11/21/2021 EST [address] [place] [address]- [facility] (1) Additional Instructions: Patient Education Gastritis, Adult Attestation Patient seen and evaluated by the physician orthopaedic physician assistant. Attending physician was present in the emergency department and supervised care. This visit was performed by both the physician and an APC. I performed all aspects of the MDM as documented. This report was transcribed using voice recognition software. Every effort was made to ensure accuracy, however, inadvertently computerized building rigger mistakes may be present. Appropriate healthcare PPE [...] Oral, Daily (more content not included)... Normal [facility] Comment on above: Result Comment: Elec tronically Signed By: Grant Jacob PA-C\.br\Date and Time Signed: 11/18/21 14:10 EST\.br\Electronically Co-Signed By: Kristopher Clemons DO\.br\Date and Time Co-Signed: 11/19/21 07:37 EST .Manual Abson 11-18-2021 Basophils/Leukocytes Manual cnt (Bld) [Pure # fraction] 0.1 E9/L Normal 0.0-0.2 [facility] Comment on above: Performed By: #### 3 6434424, 3512583, 6678482, 9218958, 64982770, 5730433, 62774152, 5534633 ####[facility] [address] [place] [address] Eosinophils/Leukocytes Manual cnt (Bld) [Pure # fraction] 0.1 E9/L Normal 0.0-0.5 [facility] Comment on above: Performed By: #### 3 9381941, 4649658, 0245061, 4135910, 66808003, 6967795, 65883311, 6645157 ####[facility] [address] [place] [address] Lymphocytes/Leukocytes Manual cnt (Bld) [Pure # fraction] 1.6 E9/L Normal 1.0-4.0 [facility] Comment on above: Performed By: #### 3 4831209, 7624780, 1888693, 3122916, 82551721, 8118742, 94727547, 5739562 ####[facility] [address] [place] [address] Monocytes/Leukocytes Manual cnt (Bld) [Pure # fraction] 0.6 E9/L Normal 0.2-1.0 [facility] Comment on above: Performed By: #### 3 8127658, 2484955, 3014086, 8445554, 63987201, 1360906, 14615696, 8359191 ####[facility] [address] [place] [address] Neutrophils/Leukocytes Auto (Bld) [Pure # fraction] 3.9 E9/L Normal 2.0-7.5 [facility] Comment on above: Performed By: #### 3 8885148, 4298748, 0072271, 6687550, 65353081, 1397085, 81884443, 9639666 ####[facility] [address] [place] [address] BMPon 11-18-2021 Creatinine [Mass/Vol] 0.7 mg/dL Normal 0.5-1.3 [facility] Comment on above: Performed By: #### 3 5959326, 5115854, 8217014, 1776555, 20581014, 8233124, 27986424, 0069674 #### [facility] [address] [place] [address] Urea nitrogen [Mass/Vol] 11 mg/dL Normal 5-21 [facility] Comment on above: Performed By: #### 3 4763419, 9657150, 3846834, 0815515, 44996396, 3394551, 95295903, 5895907 #### [facility] [address] [place] [address] Urea nitrogen/Creatinine [Mass ratio] 16 No Units Normal 10-20 [facility] Comment on above: Performed By: #### 3 8045573, 8660036, 6326488, 2138889, 14255460, 0761826, 02926600, 1129798 #### [facility] [address] [place] [address] Anion gap [Moles/Vol] 12 mmol/L Normal 6-16 [facility] Comment on above: Performed By: #### 3 8047529, 0805816, 7205492, 6447694, 15184080, 0218116, 28709927, 4555341 #### [facility] [address] [place] [address] Calcium [Mass/Vol] 9.0 mg/dL Normal 8.9-11.1 [facility] Comment on above: Performed By: #### 3 8476219, 3576527, 8763259, 2452191, 69659524, 0287272, 54826367, 9885067 #### [facility] [address] [place] [address] Chloride [Moles/Vol] 104 mmol/L Normal 101-111 [facility] Comment on above: Performed By: #### 3 0582280, 2801848, 8853189, 8995533, 98361678, 6049867, 96823077, 8260827 #### [facility] [address] [place] [address] CO2 [Moles/Vol] 24 mmol/L Normal 21-31 [facility] Comment on above: Performed By: #### 3 7682213, 4579308, 4829328, 5067206, 93399029, 1625270, 40809505, 3006934 #### [facility] [address] [place] [address] Glucose [Mass/Vol] 87 mg/dL Normal 55-199 [facility] Comment on above: Result Comment: If t his glucose result represents a fasting glucose, interpretation should refer to the following reference range: 55-99 mg/dL Performed By: #### 3 8572654, 4011286, 8416423, 5731267, 18091518, 2159832, 52774682, 5525699 #### [facility] [address] [place] [address] Potassium [Moles/Vol] 3.7 mmol/L Normal 3.5-5.3 [facility] Comment on above: Performed By: #### 3 1850213, 9618486, 7411120, 1320306, 36420402, 4498363, 29812521, 4407701 #### [facility] [address] [place] [address] Sodium [Moles/Vol] 136 mmol/L Normal 135-145 [facility] Comment on above: Performed By: #### 3 1326792, 5523679, 9606420, 8451925, 77890589, 0471519, 95869332, 9167751 #### [facility] [address] [place] [address] CBC w/ Auto Diffon Erythrocyte distribution width (RBC) [Ratio] 14.6 % High 10.9-14.2 [facility] Comment on above: Performed By: #### 3 5920384, 8080730, 2240795, 8715467, 61736138, 8195865, 91939357, 8450768 #### [facility] [address] [place] [address] Hematocrit (Bld) [Volume fraction] 36.0 % Normal 34.0-46.0 [facility] Comment on above: Performed By: #### 3 6142914, 6819483, 0812219, 6999927, 06702419, 6250329, 93676497, 1198944 #### [facility] [address] [place] [address] Hemoglobin (Bld) [Mass/Vol] 12.3 g/dL Normal 12.0-16.0 [facility] Comment on above: Performed By: #### 3 4596077, 6569126, 6675669, 0397567, 34468079, 3967878, 22959682, 5301679 #### [facility] [address] [place] [address] MCH (RBC) [Entitic mass] 26.4 pg Low 27.0-34.0 [facility] Comment on above: Performed By: #### 3 8661924, 8571195, 8511494, 8534897, 88794250, 1543746, 13578607, 2017400 #### [facility] [address] [place] [address] MCHC (RBC) [Mass/Vol] 34.1 g/dL Normal 31.4-36.0 [facility] Comment on above: Performed By: #### 3 2716883, 2987374, 8771114, 3162617, 89536180, 6886824, 03586728, 3594057 #### [facility] [address] [place] [address] MCV (RBC) [Entitic vol] 77.3 fL Low 80.0-100.0 [facility] Comment on above: Performed By: #### 3 6350588, 6880889, 0698182, 6774691, 50531590, 1419551, 38237531, 8000294 #### [facility] [address] [place] [address] Platelet mean volume (Bld) [Entitic vol] 9.3 fL Normal 6.4-10.8 [facility] Comment on above: Performed By: #### 3 4959378, 0738784, 2676846, 6322814, 68640070, 5958646, 86629628, 3464986 #### [facility] [address] [place] [address] Platelets (Bld) [#/Vol] 250.0 E9/L Normal 150.0-500.0 [facility] Comment on above: Performed By: #### 3 2476189, 5177788, 9309493, 4073832, 96399319, 9761284, 99057464, 4245290 #### [facility] [address] [place] [address] RBC (Bld) [#/Vol] 4.6 E12/L Normal 4.3-5.9 [facility] Comment on above: Performed By: #### 3 4024751, 2954333, 9720041, 8308664, 31828669, 5894162, 81728231, 7765579 #### [facility] [address] [place] [address] WBC corrected for nucl RBC Auto (Bld) [#/Vol] 6.3 E9/L Normal 4.0-11.0 [facility] Comment on above: Performed By: #### 3 1586990, 3297633, 3811137, 8354054, 83484664, 1019878, 30799062, 1674523 #### [facility] [address] [place] [address] Consent for Treatmenton Consent for Treatment [id number] 0CD:127 Normal [facility] Discharge Instructionson Discharge Instructions [id number] 0CD:127 Normal [facility] ED Clinical Summaryon 2021 ED Clinical Summary [address] [address] ED Clinical Summary Person Information Name: LEENA INTERIANO [facility] Age: 31 Years : 1990 Sex: Female Language: Sign Language PCP: BENTLEY LUCERO CNP Marital Status: Phone: [phone] Visit Id: Visit Reason: Nausea; Chest pain; [...] 11/18/2021 14:15:52 11/18/2021 14:15:52 11/18/2021 14:15:52 ADDRESS: [address] [place] [phone] PHYS DOC NOTES: MEDICAL INFORMATION: Prescriptions Given: New Medications [facility], [address] [facility] [place], [place] [id number], [phone] omeprazole (omeprazole 40 mg Madisyn) 1 Capsules [...] With: Address: When: BENTLEY LUCERO [address] [place] [address] Business (1) In 3 days 11/21/2021 DIAGNOSIS: Gastritis Normal [facility] ED Patient Education Noteon 11-18-2021 ED Patient [...] medicines. These include steroids, antibiotics, and some xjqw-tij-lkmmxte medicines, such as aspirin or ibuprofen. ? [...] these instructions at home: Medicines ? Take nkjd-jee-seucxpn and prescription medicines only as told by [...] 08/25/2002 Document Revised: 01/18/2019 Document Reviewed: 01/18/2019 [email or web address] Patient Education ? 2019 [employer] Normal [facility] ED Patient Summaryon 022 ED Patient Summary [address] [address] Patient Discharge Instructions Person Information Name: LEENA INTERIANO Age: 31 Years Arrival Date: 11/18/2021 12:10:57 Discharge Diagnosis: Gastritis Primary Care Physician: BENTLEY LUCERO CNP Provider Information Primary Provider: Kristopher Clemons DO Advanced Liner Man:Grant Jacob PA-C The exam and treatment you received in the Emergency Department were for an urgent problem and are not intended as complete care. It is important that you follow up with a doctor, nurse practitioner, or physician?s orthopaedic physician assistant for ongoing care. If your symptoms [...] With: Address: When: BENTLEY LUCERO [address] [place] [address] Business (1) In 3 days 11/21/2021 In the event that this physician does not participate in your insurance network, please consult with your insurance company to find a nearby participating provider. Patient Education Materials: Gastritis, Adult A MESSAGE TO ALL PATIENTS REGARDING OPIOIDS PRESCRIPTION OPIOIDS: WHAT YOU NEED TO KNOW Prescription opioids can be used to help relieve tygatcnx-hs-nqbkqc pain and are often prescribed following a [...] be struggling with addiction, tell your health critical care rn and ask for guidance or call [facility]?S National Helpline at 1-473-259-LLBY. a Source: [place] Department of Health and Human Se (more content not included)... Normal [facility] Hep Func Panelon 11-18-2021 Bilirubin.indirect [Mass or moles/Vol] UTC Abnormal 0.1-0.9 [facility] Comment on above: Result Comment: Resu lt verified by Discern Rule. Performed result UTC (Unable to Calculate) was sent as an Alpha code due the inability to calculate a valid numeric value. Performed By: #### 3 9099381, 9979283, 8242740, 2380384, 49333151, 7975968, 78545106, 7817096 #### [facility] [address] [place] [address] Albumin [Mass/Vol] 4.0 g/dL Normal 3.3-5.0 [facility] Comment on above: Performed By: #### 3 6698505, 2431956, 3708657, 0274051, 60012648, 6512165, 40997952, 4940681 #### [facility] [address] [place] [address] Albumin/Globulin (S) [Mass conc ratio] 1.2 Normal 1.1-2.2 [facility] Comment on above: Performed By: #### 3 2987435, 3470692, 1898731, 7499753, 45688513, 5281599, 03969851, 8268745 #### [facility] [address] [place] [address] ALP [Catalytic activity/Vol] 50 Int._Unit/L Normal 21-98 [facility] Comment on above: Performed By: #### 3 8620504, 4677487, 1990661, 7378243, 06300588, 5489455, 41386223, 0225160 #### [facility] [address] [place], [place] [address] ALT No additional P-5'-P [Catalytic activity/Vol] 14 Int._Unit/L Normal 6-46 [facility] Comment on above: Performed By: #### 3 9414392, 3140165, 5563818, 7803068, 74139924, 7638800, 52500157, 9114771 #### [facility] [address] [place], [place] [address] AST [Catalytic activity/Vol] 17 Int._Unit/L Normal 5-43 [facility] Comment on above: Performed By: #### 3 1294810, 9963554, 5291781, 8759006, 04471539, 6813922, 51124361, 9995649 #### [facility] [address] [place], [place] [address] Bilirubin [Mass/Vol] 0.6 mg/dL Normal 0.0-1.1 [facility] Comment on above: Performed By: #### 3 7149704, 5408071, 7196213, 0145304, 59201722, 8253475, 32530090, 2097276 #### [facility] [address] [place] [address] Bilirubin.direct [Mass/Vol] mg/dL Normal 0.1-0.4 [facility] Comment on above: Performed By: #### 3 7514453, 4069541, 4165758, 2279049, 28917987, 1323200, 07207225, 7233434 #### [facility] [address] [place] [address] Globulin (S) [Mass/Vol] 3.3 g/dL Normal 1.4-4.0 [facility] Comment on above: Performed By: #### 3 5318223, 0835001, 9651782, 8597063, 71578320, 5130464, 89923829, 0924089 #### [facility] [address] [place] [address] Protein [Mass/Vol] 7.3 g/dL Normal 6.0-7.8 [facility] Comment on above: Performed By: #### 3 8968413, 3222493, 4908640, 4513754, 98244375, 3368360, 94311041, 5534621 #### [facility] [address] [place] [address] Lipase Levelon 11-18-2021 Lipase [Catalytic activity/Vol] 27 U/L Normal 13-58 [facility] Comment on above: Performed By: #### 3 2201170, 7075086, 6329783, 1821343, 74688525, 5806956, 39123269, 4954252 #### [facility] [address] [place] [address] Manual Diffon 11-18-2021 Band form neutrophils/100 WBC (Bld) 6 % Normal 0-10 [facility] Comment on above: Order Comment: Order Added by Discern Expert. Performed By: #### 3 5721562, 6363427, 3187398, 4613686, 08310497, 1812415, 70621618, 3666606 ####[facility] [address] [place] [address] Basophils/100 WBC (Bld) 1 % Normal 0-2 [facility] Comment on above: Order Comment: Order Added by Discern Expert. Performed By: #### 3 8784100, 2241037, 1009008, 3350861, 55838693, 3709680, 99100297, 3811746 ####[facility] [address] [place] [address] Eosinophils/100 WBC (Bld) 2 % Normal 0-8 [facility] Comment on above: Order Comment: Order Added by Discern Expert. Performed By: #### 3 0205354, 9722398, 2804291, 1983512, 14830674, 0276064, 49363497, 8815952 ####[facility] [address] [place] [address] Lymphocytes/100 WBC (Bld) 25 % Normal 14-50 [facility] Comment on above: Order Comment: Order Added by Discern Expert. Performed By: #### 3 0551257, 6512989, 3892482, 7815965, 78737656, 0866295, 95062717, 3283208 ####[address] [place] [address] Monocytes/100 WBC (Bld) 10 % Normal 4-14 [facility] Comment on above: Order Comment: Order Added by Discern Expert. Performed By: #### 3 9392855, 8957010, 8805847, 9773408, 81963082, 6902008, 61797688, 4432660 ####[facility] [address] [place] [address] Morphology Doroteo (Bld) [Interp] Normal Normal [facility] Comment on above: Order Comment: Order Added by Discern Expert. Performed By: #### 3 6132218, 5928042, 6892087, 8375484, 43069419, 2472388, 39569572, 7491713 ####[facility] [address] [place] [address] Segmented neutrophils/100 WBC (Bld) 56 % Normal 36-75 [facility] Comment on above: Order Comment: Order Added by Discern Expert. Performed By: #### 3 4110707, 3637884, 6200277, 1112932, 93994787, 9130536, 22913977, 8837866 ####[facility] [address] [place] [address] Variant lymphocytes LM Ql (Bld) 0 % Invalid Interpretation Code [facility] Comment on above: Order Comment: Order Added by Discern Expert. Performed By: #### 3 2701214, 2215039, 0691860, 4785297, 09166705, 3588407, 98728881, 0772463 ####[facility] [address] [place] [address] Prescriptions/Work Noteson 0 11-18-2021 Prescriptions/Work Notes [id number]#1.0 0CD:127 Normal [facility] Troponin 0 Hr.on 11-18-2021 Troponin I.cardiac [Mass/Vol] ng/mL Low 10.10-27.10 [facility] Comment on above: Result Comment: The 95% CI (Confidence Interval) PPV (Positive Predictive Value) for myocardial infarction in females is 38 pg/mL, in males 51 pg/mL. The results should be used in conjunction with clinical conditions of myocardial infarction. (Access High Sensitivity Troponin I Instructions For Use, [employer], April 2018) Performed By: #### 3 5779255, 3802571, 9719497, 8525545, 28881474, 3850448, 65130697, 4567755 #### [facility] [address] [place] [address] XR Chest 2 Viewson XR Chest 2 [...] Transcribed by: MARÍA ELENA Technologist: CC Normal [facility] eGFRon 11-18-2021 GFR/1.73 sq M.predicted among blacks MDRD (S/P/Bld) [Vol rate/Area] mL/min/{1.73_m2} Normal >=59 [facility] Comment on above: Order Comment: Order added by Discern Expert. Result Comment: eGFR is race adjusted. AA=. Performed By: #### 3 0704417, 7439463, 4332275, 4160751, 73987324, 1686689, 15261348, 7684600 #### [facility] [address] [place] [address] GFR/1.73 sq M.predicted among non-blacks MDRD (S/P/Bld) [Vol rate/Area] mL/min/{1.73_m2} Normal >=59 [facility] Comment on above: Order Comment: Order added by Discern Expert. Result Comment: Asset Management Coordinator chance kidney disease could be indicated at eGFR's of less than 60 mL/min/1.73m2. Kidney failure is indicated at less than 15 mL/min/1.73m2. Performed By: #### 3 0170336, 6657599, 2004842, 6891316, 58257578, 6663732, 19591072, 6484709 #### [facility] [address] [place] [address] Coding Summary.on 09-25-2021 Coding Summary. CD:[id number] Gh 0bWw+PGhlYWQ+AY5KXCWdF 73bvYHznS5SJ3cCPK5KYOS GMUCPDH9LMM4yzHC6JKqgP 2VybiAv WqbbtQTgNY05KZo9TVQ1fL hjWTkgyL6hfRLeM5v3HaJa VP91gL11RAyjLBOpXzI1Kl ZpbjsgbWFy R8npZeAuoRNgSux+PHRhYm xlIHdpZHRoPScxMDAlJyBz aPatLQ3iQx5hVXVoXAEolM xhcHNlOiBj g5wsMPThRScbIQ6bfDoxU3 YgmXB0NBBei3h2Uz68tEU+ MDXrIEC0eJrhLTozt832Vc Kjp3ppCGG8 mQDmHNsrOMI5K69jl8B3FB UtLPTxCRK0aHW6hZ3tyOfa dzdlI6VayJGwJjF5INK8gG PfiJ7xdPmt gyqfvE9oRsa+V79FGK9JXB GEOW0YVhj1L6FqXpqagNJ+ DA61JVZwVC47oFIxpOHyv4 zhcZd3WtEb ZYCmNIA8wDjyDAtjx4BnBG BaZ36omKPzd8T0PDRxdNse kGDtXuNrtRG8cB4sMLuvab fnc3bnllya Rtnms7secv56oH68C50tBD shVAGxPME0DFEnESPdyJyy po9igF3pNp4+JIvll6qor4 pwfPl4GtCx BZTeiyXmaEzlBZZ4w9UtDg 37J3SuoGdld8KzQqs9ra97 zSPzn2G1wUG4ZCfoXLAypT 2fCBfvBhO7 PIRmZkCvxF43yYUfHDqjCz 9hpKeevEjvRA5eCBRquvxe XDLonT2zCVVzrABfoMouVN 4wNTBpbjtm m073OvXrIKP8ZXMmsLGmU3 OvmM2yMoBqGZTpTCDwQ2Sv wXKoDGiiK249SJxfJlF6SF MnmvWaN5Dp IYNzzSomNqB7q8Q2Lt5Iq1 DetpktVGF0KEtqPTOiCwIe JzZmPcU7Y2FwIrs4CTYtxJ gfIT5uC4Ab QTKlbutztmuztWQ9XDTjML PnnJ51mYHiFYjnEv3wt3Z5 n966LJLsEGKguT50Af2bhK ogMTBwdCBU gE5urtqwx9hgktlqWdHvDA CtRKv1YJq9DBRfbShwLzRc COW9KsQ7QUJ2bWHenE4bcF xdpgjqvP4s Oyc+X89inQ2tHJS3QTU5no hpDOHdfsIuVT89ML97S4Oi PjwvdGFibGU+PGRpdiBzdH skGA5xKwBw n1gjy6BeIVcnE5OnIOMlAL zuHhb9SMMoXBG2fMI5bB5n QEWdTCroa0N8zBJ0O1Vqhm Kmna0so8pl GGVvPBdwZ07olODgj9G6JF VtgDU1SNEdgQjsEsLzoT43 Oyc+KFXabIjnp6QwLjojd4 wgj4ciiOv1 SmWbCGQtelShnIgfION1y4 VnKy54F66kKRhwESMdQTIa ZPLcDBGziTleiw9lpD4tBq 8+PGNvbCB3 cHK0vQ6xKMQwWdD8DErvO2 58VvQqqNQcWsicr0kio3ki wEl4BnMiROIdgeLefMceUF W6s6TrFt04 C22rFOcaFJKbRJTuCFUjVF BbfPebjk8xsC5mRz0+PC9j i7uywr28gL20mVR+PHRkIH L3kRdnCOre VXMdkM4hHHffSsQ7UDEyBf WexX88fSRvRZmsLi0ynHon hXuuLE4cFAHzfocvn990Kc Mwc6glLFDy bKYiZRnwEJZ8A03ji6V5VM KhXQKlVGZ8rBM0yT7djUve bjogbGVmdDsgdmVydGljYW nuTDlmW070 IHRvcDsnPlBhdGllbnQgTm DcQFe7X2PdDul1CCCazWst FD0krKUjBJqoDm7iuSimiT ytRG3uUJGg uibrc481JmDeo0olEYBzbK LrJTlaFAB5M62ul1I0HSBg OETdEBM2vAZ2oY9rsIijaa ogbGVmdDsg kmPzcNpfKEplFPweM570YS RvcDsnPkJpcnRoIERhdGU6 NB18NF52vKPer6K4eFB6J1 BhZGRpbmct tpssnTC0WDRgVIUsmB62Kl 7ajKrkVn1bTNDiSAB5VAQn dKOrJ6UusP0kAkQpERYrWP CtR3DwcSHs LVsnM112TXpkYoX4TADkmo WyI2QuNKGqxLxyOjO4e1Q2 Az7MK5G5QA10HJ95cVSfc8 G0gAH9K1St SQVibrxoyuksyNO1NCFnAX EjbU94Yo5caRsxZq6uUGTg DPB1IBCikZGhT5ImvT0pVx AjMDAwMDAw H2DimVSoBCfqJ171YTxpEe S8NPAatlHaD0UtDPYolOqh AfT2c4U5Lu8FSSo9KO06LL 12lKYkk7K3 rDY3T0SzWMYuxbubdyupnM I7VRMpELCsvO68Wx5uvKym Tx2mCDKqPAB7NYDjjHQbX7 IfxS8xLgTr BCMnIACsT2YfwXHnAUuuY7 81SSkcUxV5GPOtnfLnF2Ra ZHCrfWvyKiU1z1H0Ab0YNR QjOO61FZL7 uXC1SF82NO08O0RqIjsvaY FibGU+PHRhYmxlIHdpZHRo IItlGMPhZeTwsNjrLP0lVe 9yZGVyLWNv fVszkGReOgUbd2jiKDRbCO jkFM3nkKmrM9ZndFQ5WSOy v7s8Sl14O08mY4IoyAC+PG AuhRI7hJY5 vF1jWpFhJoE5WEjdL157Xd ZbxCDwMfoht1pfs3jjrPt9 YsP0YXQmnuPubCrfFLB1s5 CeSg72F61e IHdpZHRoPSIxNSUiIHZhbG dhii4lfJ7cUq3+PGNvbCB3 zOH0rC1hEaOhEyK8YYxgV6 49InRvcCIv Xdlls9jtg6lkrIq6RhQbIY NvmxCxkVmuGPC7g8ZhPr27 U8LllJicw3OwLpq6js84fQ Rmy1Y4cFV2 Q9OrNMHlpdpxyNTnoUfwXW 1dTCUpprqcAIUiqX4bPCWc Q6t6ZeNiZzT1ERwvM9Uuac L8VLOgeYDh OHycPZA5B43sj5F3TUUsSU QwXNJ4eIQ1nJ9giYjxakgm bGVmdDsgdmVydGljYWwtYW xnK045YEIh aVomCTAivP2vRCJnlRCdwP duOW6rGSKixhvdMzhQMZuh IEpBREEgTTwvdGQ+PHRkIH C8kUcmRGws QHRewR7mQXXkL7a4LrBoTl O3FNncO2ByXSVotsesUd44 vV8kXpPyOpW6BLtqH7Djvb E3XTMnpUNr DXonYKM4E24ng2S5GVLcLD HnYBD8pZY0aV9cjHolivxn bGVmdDsgdmVydGljYWwtYW yrV728NJMj vXhpOaA6XvL7BoA4BHF3L9 InCfe4FIIbgDddRY4cnDHg JRvuCn3wlZorwJxfFZ8gKF BpbjtwYWRk hA9gGRPjwDFhaUpdEI7kYL Qsymidc048ZdVwKXE3XCFx kLJfX5KehY4xCgHbJFVyHK BiN8EpqTPx VJoeG995LVvnQuR8DZImht HxH5YfUDWecKeoQvW9b4U1 Pm6dYJCGLWUgpinjoWI+PH SpUUQ8uPhb RIqkRRIkwG7xKNBpY9g6Kx ZuMhQ0QZrkM8TbVNJnfudq Zm80sP4eXaZuNbH1BXbgY2 MauaS3PYJu tURmWTymKLV8I20eu0W7OS GxHOApYLM0jKV8iF9iwXed bjogbGVmdDsgdmVydGljYW btTCxyV790 IHRvcDsnPkZlbWFsZTwvdG Q+PKKoXNP5kOslUDyrSEGy rE6cVLQhT6r6IsXqWnV5AU kvP8NuQQKo qwylTz64kV6nLlSwBfB1HR ysV2JvsdX1NKSocKDrVLoj QSH7O37hr2V3ZCShHQEgAT T1uIJ4qP9o bGlnbjogbGVmdDsgdmVydG yiUQmjTRqfY680UUNoqDnd CrIkBSWyED7goNmxnTI+PC 79lv82N1St AljhJzq4WNXdHRB5lSG2lT 5fBSClNLgxt7X5kRG0X6Va ksQkdw1gj5hyRYBwDJlmT1 4nuULhi5L1 DYKhbZO1PZGcvBwvWmMahQ 93Oyc+RNYnvRdgz6VxBxfc w9hlt3agbYn6GsZjPXImfr FsaWduPSJ0 i9NrBu83T51wCKuyISWeIO VbNMXcPBDreZnbgs5vuF7m Ii8+ZOUytPW1rUD8kH9uSq LsRiJ1ZRnn A592GmXgeOZsWgerv6byq8 bdiJw3IbYwHUPjywGteHhv PYA1d4EuYs03Z5ZjbEpkf5 ItHvv4fz86 iVAdv7Z7bHY5G9HnYVPenu nrjMWrdQslTW6wZCPjcjam DGBslP8pHCXhE3z0ZsZcLa D7NIlgI7No mmE2QDGjrZIbFFKpgSZIcB 6bmbuah6vtamxhLlFpEGAi MKe6FIl4XHHomVeaAtReTQ T4EyE7AME2 qUDdlO8svLtjluystU5dSx c+TMv7l1wbvEIyYK0akDL4 DZ47JD67vWZxc9R4dQJ8M2 BhZGRpbmct nvggwHR9RLMiCZAcbM07Xr 9qsQhaZx0xGVQxIDV4ROFi mDIcR8IdiO4fYnFlYLFjRT CsI3MowEPo XKltW559KUtjUgH5MVMwqj MeP1XaPEQnlNdnSvO8k3V0 Hw5GOV58FG44SI72sHCrz9 F9hLF4Q8On CESybimtylimpGW8JZXbRC FqnM96Us7nlApvGb2bNQCf RNM9RXLiwZWoA9NarH7aAw AjMDAwMDAw O7PxzAInKAhgC957GTbxRn Z3JSMjjpWjS2TzELGzpRvj SfQ8j6V9Cs9SHp29XC48LF 05yQSwh4N1 nYQ3R3KiDFGhpltcgtfvaG W8ROKkYTShoH60Kw4dpUzr Zo8wSLYuPCT5DCDtdOJkV6 BoyK5pFvGo ZSRgUNUrE3PweDDpIJrxJ2 68CFzkXxY3PQXpmmWnA5Ub IBUdxJfwDiY3a2W1Fe0KOT eqwwv5Y4Up PjwvdHI+RM97KJVjOX38pK BkfRLpo8agsTw5IwJnISMk GST9mBboVJtnl1DdBUMnP0 0mdSPzd7A8 IGNv (more content not included)... Normal [facility] COVID-[place] 09-24-2021 SARS-CoV-2 (COVID-19) RNA PARI+probe Ql (Resp) Not detected Normal Not Detected [facility] Comment on above: Result Comment: This test result should be correlated with clinical presentations and medical history by a healthcare provider to determine its clinical significance. This assay was performed by a reverse transcriptase real-time polymerase chain reaction (rt PCR) method on the [employer] system. This test has been authorized only [...] or revoked sooner. Performed By: #### 2 [id number] ####[place] [address] SARS-CoV-2 (COVID-19) RNA PARI+probe Ql (Unsp spec) Pass Normal Pass [facility] Comment on above: Performed By: #### 2 [id number] ####[place] [address] Specimen source Nom (Unsp spec) Nasal Normal [facility] Comment on above: Performed By: #### 2 [id number] ####[place] [address] ADMITTED TO INTENSIVE CARE UNIT FOR CONDITION OF INTEREST:FIND:PT: Unknown Normal [facility] Comment on above: Performed By: #### 2 [id number] ####[place] [address] EMPLOYED IN A HEALTHCARE SETTING:FIND:PT: Unknown Normal [facility] Comment on above: Performed By: #### 2 [id number] ####[place] [address] FIRST TEST FOR CONDITION OF INTEREST:FIND:PT: Unknown Normal [facility] Comment on above: Performed By: #### 2 [id number] ####[address] [place] [address] HAS SYMPTOMS RELATED TO CONDITION OF INTEREST:FIND:PT: Unknown Normal [facility] Comment on above: Performed By: #### 2 [id number] ####[place] [address] HOSPITALIZED FOR CONDITION OF INTEREST:FIND:PT: Unknown Normal [facility] Comment on above: Performed By: #### 2 [id number] ####[place] [address] STATUS:FIND:PT: Unknown Normal [facility] Comment on above: Performed By: #### 2 [id number] ####[place] [address] RESIDES IN A [facility] CARE SETTING:FIND:PT: Unknown Normal [facility] Comment on above: Performed By: #### 2 [id number] ####[place] [address] Consent for Treatmenton 09-14 Consent for Treatment [id number] 2009 [id number] 0CD:127 Normal [facility] Discharge Instructionson Discharge Instructions [id number]#[id number] CD:127 Normal [facility] ED Clinical Summaryon 2021 ED Clinical Summary [place] [address] ED Clinical Summary Person Information Name: LEENA INTERIANO [place] Age: 31 Years : 1990 Sex: Female Language: Sign Language PCP: BENTLEY LUCERO CNP Marital Status: Phone: [phone] Visit Id: Visit Reason: Sinus Pain/Congestion; RUNNY [...] 09/24/2021 11:26:44 09/24/2021 11:26:44 09/24/2021 11:26:44 ADDRESS: [address] [place] [phone] PHYS DOC NOTES: MEDICAL INFORMATION: Prescriptions Given: New Medications [facility], [address] [place], [place] [id number], [phone] brompheniramine/dextro methorphan/PSE (Bromfed DM oral syrup) 10 [...] With: Address: When: BENTLEY NIC [address] [place] [address] Business (1) In 3 days 09/27/2021 DIAGNOSIS: Acute upper respiratory infection Normal [facility] ED Note-Physicianon 09-24-19 ED Note-Physician Basic Information [...] for 7 day(s), 280 mL, Refill(s) 0, [facility], 164, cm, 09/24/21 11:04:00 EST, Height/Length Dosing, 89, kg, 09/24/21 11:04:00 EST, Weight Dosing dexamethasone, 10 mg = 2.5 mL, Injection, Oral, Once, Stop date 09/24/21 11:06:00 EST, STAT, Start date 09/24/21 11:06:00 EST, 09/24/21 11:06:00 EST COVID-19 [place] Disposition Plan Patient Discharge Condition Disposition: Discharged home Condition: Improved and stable Counseled: Patient and/or family were counseled to workup, results, treatment plan and follow-up recommendations Discharge Prescription List Prescriptions Bromfed DM oral syrup, 10 mL, Oral, QID, PRN Follow-up With When Contact Information BENTLEY ENGLISHRosy In 3 days 09/27/2021 EST [address] [place] [address]- Business (1) Additional Instructions: Patient Education COVID-19 Upper Respiratory Infection, Adult Attestation Patient seen and evaluated by the physician orthopaedic physician assistant. Attending physician was present in the emergency department and supervised care. This visit was performed by both the physician and an APC. I performed all aspects of the MDM as documented. This report was transcribed using voice recognition software. Every effort was made to ensure accuracy, however, inadvertently computerized building rigger mistakes may be present. Appropriate healthcare PPE [...] available. Diagnostic Results No qualifying data available. [facility] Comment on above: Result Comment: Elec tronically Signed By: Cecil ETIENNE, Grant\.br\Date and Time Signed: 09/24/21 11:08 EST\.br\Electronically Co-Signed By: Paul Moss, Devendra Dillon\.br\Date and Time Co-Signed: 09/24/21 15:49 EST ED Patient Summaryon 022 ED Patient Summary [address] [address] Patient Discharge Instructions Person Information Name: LEENA INTERIANO Age: 31 Years Arrival Date: 09/24/2021 10:56:03 Discharge Diagnosis: Acute upper respiratory infection Primary Care Physician: BENTLEY LUCERO CNP Provider Information Primary Provider: Devendra Miller M.D. Advanced Liner Man:Grant Jacob PA-C The exam and treatment you received in the Emergency Department were for an urgent problem and are not intended as complete care. It is important that you follow up with a doctor, nurse practitioner, or physician?s orthopaedic physician assistant for ongoing care. If your symptoms [...] With: Address: When: BENTLEY LUCERO [address] [place], [place] [id number] [facility] (1) In 3 days 09/27/2021 In the event that this physician does not participate in your insurance network, please consult with your insurance company to find a nearby participating provider. Patient Education Materials: COVID-19; Upper Respiratory Infection, Adult A MESSAGE TO ALL PATIENTS REGARDING OPIOIDS PRESCRIPTION OPIOIDS: WHAT YOU NEED TO KNOW Prescription opioids can be used to help relieve nziusbvv-qe-xwjuhv pain and are often prescribed following a [...] be struggling with addiction, tell your health critical care rn and ask for guidance or call [facility] National Helpline at 0-164-111 (more content not included)... Normal [facility] Prescriptions/Work Noteson 0 09-24-2021 Prescriptions/Work Notes [id number]#[id number] CD:127 Normal [facility] Chlamydia/GC DNA, Uron 03-16 Chlamydia Probe, Ur Negative Normal [facility] Comment on above: Result Comment: CHLA MYDIA TRACHOMATIS DNA not detected by nucleic acid amplification. Performed By: #### U CGP ####[facility] [place] [address] Gonorrhea Probe, Ur Negative Normal [facility] Comment on above: Result Comment: NEIS SERIA GONORRHOEAE DNA not detected by nucleic acid amplification. Performed By: #### U CGP ####[address] [place] [address] Vaginitis DNA Probeon 2017 Protein Specimen Description .VAGINASpecial Requests NOT REPORTEDDirect Exam NEGATIVE for Gardnerella vaginalis NEGATIVE for Dora sp. NEGATIVE for Trichomonas vaginalis Method of testing is a DNA probe intended for detection and identification of Dora species, Gardnerella vaginalis, and Trichomonas vaginalis nucleic acid in vaginal fluid specimens from patients with symptoms of vaginitis/vaginosis. Report Status FINAL 03/16/2018 [facility] Comment on above: Performed By: #### V AGDNA ####[address] [employer] [place] [address] Progress Noteon 03-15-2018 HIM IP Note OR Staffing Mgr [facility] Progress Noteon 12-06-2017 HIM IP Note OR Staffing Mgr [facility] Chlamydia/GC DNA, Uron 11-26 Chlamydia Probe, Ur Negative Normal NEG [facility] Comment on above: Result Comment: CHLA MYDIA TRACHOMATIS DNA not detected by nucleic acid amplification. Performed By: #### U CGP ####[id number] [place] [address] Gonorrhea Probe, Ur Negative Normal NEG [facility] Comment on above: Result Comment: NEIS SERIA GONORRHOEAE DNA not detected by nucleic acid amplification.[facility] [employer] [address] [place] [address] [id number] ([phone] Performed By: #### U CGP ####[id number] [place] [address] Vaginitis DNA Probeon 2017 Protein Specimen Description .VAGINAL SWABSpecial Requests NOT REPORTEDDirect Exam NEGATIVE for Dora sp. NEGATIVE for Gardnerella vaginalis NEGATIVE for Trichomonas vaginalis Method of testing is a DNA probe intended for detection and identification of Dora species, Gardnerella vaginalis, and Trichomonas vaginalis nucleic acid in vaginal fluid specimens from patients with symptoms of vaginitis/vaginosis. Report Status FINAL 11/25/2017 Normal [facility] Comment on above: Performed By: #### V AGDNA ####[address] [address] Progress Noteon 10-20-2017 HIM IP Note OR Staffing Mgr Normal [facility] Vital Signs Date Time Vital Sign Value Performing Clinician Samir novoa 08-29-2022 17:32-0500 Body temperature 98.78 [degF] Kristopher Clemons [facility] 08-29-2022 17:32-0500 Diastolic blood pressure 96 mm[Hg] Kristopher Sextone [facility] 08-29-2022 17:32-0500 Heart rate 74 /min Kristopher Sextone [facility] 08-29-2022 17:32-0500 Respiratory rate 18 /min Kristopher Clemons [facility] 08-29-2022 17:32-0500 SaO2% (BldA) [Mass fraction] 99 % Kristopher Clemons [facility] 08-29-2022 17:32-0500 Systolic blood pressure 143 mm[Hg] Kristopher Clemons [facility] 06-18-2022 12:13-0400 Body temperature 98.42 [degF] Connor Castellanos [facility] 06-18-2022 12:13-0400 Diastolic blood pressure 88 mm[Hg] Connor Castellanos [facility] 06-18-2022 12:13-0400 Heart rate 78 /min Connor Emanuel [facility] 06-18-2022 12:13-0400 Respiratory rate 20 /min Connor Castellanos [facility] 06-18-2022 12:13-0400 SaO2% (BldA) [Mass fraction] 98 % Connor Castellanos [facility] 06-18-2022 12:13-0400 Systolic blood pressure 133 mm[Hg] Connor Emanuel [facility] 05-28-2022 10:50-0400 Body temperature 98.6 [degF] Connor Emanuel [facility] 05-28-2022 10:50-0400 Diastolic blood pressure 97 mm[Hg] Connor Emanuel [facility] 05-28-2022 10:50-0400 Heart rate 67 /min Connor Emanuel [facility] 05-28-2022 10:50-0400 Respiratory rate 18 /min Connor Emanuel [facility] 05-28-2022 10:50-0400 SaO2% (BldA) [Mass fraction] 98 % Connor Emanuel [facility] 05-28-2022 10:50-0400 Systolic blood pressure 140 mm[Hg] Connor Emanuel [facility] 01-09-2022 13:53-0400 Body temperature 98.6 [degF] [facility] 01-09-2022 13:53-0400 Diastolic blood pressure 99 mm[Hg] [facility] 01-09-2022 13:53-0400 Heart rate 83 /min [facility] 01-09-2022 13:53-0400 Respiratory rate 16 /min [facility] 01-09-2022 13:53-0400 SaO2% (BldA) [Mass fraction] 98 % [facility] 01-09-2022 13:53-0400 Systolic blood pressure 116 mm[Hg] [facility] Encounters Encounter Date Encounter Type Care Provider Facility Start: 08-10-2023 End: 08-11-2023 ambulatory George Bernstein MD Facility: [facility] Start: 06-22-2023 End: 06-23-2023 ambulatory George Bernstein MD Facility: [facility] Start: 06-08-2023 End: 06-09-2023 ambulatory George Bernstein MD Facility: [facility] Start: 05-25-2023 ambulatory Facility:[id number] Start: 04-22-2023 End: 04-22-2023 ambulatory Bentley Englishc Facility:[facility] Start: 04-22-2023 End: 04-22-2023 ambulatory Services [facility] Work Phone: [facility] Work Phone: Start: 04-22-2023 End: 04-22-2023 Patient encounter procedure Services [facility] Work Phone: [facility] Work Phone: Start: 04-16-2023 End: 04-16-2023 ambulatory Bentley E Spasic Facility:[facility] Start: 04-16-2023 End: 04-16-2023 ambulatory [employer] Bentley Spasic Work Phone: [facility] Work Phone: Start: 04-16-2023 End: 04-16-2023 Departed Referred [employer]C Bentley Spasic Work Phone: [facility] Start: 01-27-2023 ambulatory NARENDRANATH LAKSHMIPATHY . Facility: Start: 01-20-2023 End: 01-21-2023 ambulatory NARENDRANATH LAKSHMIPATHY . Facility: Start: 01-01-2023 End: 01-01-2023 ambulatory EASTON JOESPH . Facility: Start: 10-30-2022 End: 10-30-2022 ambulatory Bentley E Spasic Facility:[facility] Start: 10-30-2022 End: 10-30-2022 ambulatory [employer]C Bentley E Spasic Work Phone: [facility] Work Phone: Start: 10-30-2022 End: 10-30-2022 Patient encounter procedure [employer] OFF[employer]C Bentley Spasic Work Phone: [facility] Work Phone: Start: 10-09-2022 End: 10-09-2022 ambulatory Bentley E Spasic Facility:[facility] Start: 10-09-2022 End: 10-09-2022 ambulatory [employer] OFF[employer]-C Bentley E Spasic Work Phone: [facility] Work Phone: Start: 10-09-2022 End: 10-09-2022 Patient encounter procedure [employer] OFF[employer]C Bentley Spasic Work Phone: [facility] Start: 10-08-2022 End: 10-08-2022 ambulatory VANESSA JEREZ Facility: Start: 08-29-2022 End: 08-29-2022 Emergency department patient visit Kristopher Clemons [place] Start: 08-29-2022 End: 08-29-2022 Emergency department patient visit Kristopher Clemons [facility] Start: 08-20-2022 End: 08-20-[address] KARMA HAY Facility: Start: 06-18-2022 End: 06-18-2022 Emergency department patient visit Connor Castellanos [place] Start: 06-18-2022 End: 06-18-2022 Emergency department patient visit Connor Castellanos [facility] Start: 05-28-2022 End: 05-28-2022 Emergency department patient visit Connor Castellanos [place] Start: 05-28-2022 End: 05-28-2022 Emergency department patient visit Connor Castellanos [facility] Start: 03-21-2022 End: 05-15-2022 ambulatory BENTLEY LUCERO Facility[place] Start: 03-12-2022 End: 03-12-2022 ambulatory Rangel Stanton Other [facility] Other Start: 03-12-2022 Telephone encounter Rangel PHILLIPS [facility] Start: 02-18-2022 End: 02-26-2022 Pre-admission assessment BENTLEY LUCERO [facility] Start: 02-16-2022 End: 02-16-2022 Emergency department patient visit Connor Castellanos [place] Start: 01-09-2022 End: 01-09-2022 Emergency department patient visit Devendra Miller [facility] Start: 01-09-2022 End: 01-09-2022 [facility] Start: 11-18-2021 End: 11-18-2021 Emergency department patient visit Kristopher Clemons Facility[facility] Start: 09-24-2021 End: 09-24-2021 Emergency department patient visit Devendra Miller [facility] Start: 03-16-2018 End: 03-16-2018 Ambulatory DION Jacob [facility] Start: 11-25-2017 End: 11-26-2017 [facility] Procedures Date Procedure Procedure Detail Performing Clinician Start: 04-22-2023 X-ray of cervical spine Services [facility] Work Phone: Start: 10-30-2022 CT of lumbar spine w ithout contrast [employer]C Bentley Spasic Work Phone: Start: 10-30-2022 Bilateral mammography N P-C Bentley Spasic Work Phone: Start: 10-30-2022 Ultrasonography of l eft breast [employer] Bentley Spasic Work Phone: Start: 03-15-2018 C.TRACHOMATIS N.GONO RRHOEAE DNA, URINE DION GUNTERER Start: 03-15-2018 VAGINITIS DNA PROBE MAR Y OPHELIA Start: 11-25-2017 C.TRACHOMATIS N.GONO RRHOEAE DNA, URINE DION GUNTERER Start: 11-25-2017 VAGINITIS DNA PROBE MAR Y OPHELIA Plan of Treatment Date Care Activity Detail Author Start: 04-16-2023 [facility] Immunizations Immunization Date Immunization Notes Care Provider Fa cilinegrita 06-06-2021 COVID-19 mRNA, Comirnaty (Pfizer) [employer] Bentley Spasic Work Phone: [facility] 05-16-2021 COVID-19 mRNA, Comirnaty (Pfizer) [employer]C Bentley Spasic Work Phone: [facility] Payers Date Payer Category Payer Self-pay [id number] 2022 Medicaid 2022 Medicare 2015 Medicare [id number] 1990 Unknown [id number] 2.16.8 40.1.079882.3.579.2.727 1990 Unknown [id number] 2.16.8 40.1.460196.3.579.2.727 1990 Unknown [id number] 2.16.8 40.1.788005.3.579.2.727 1990 Unknown [id number] 2.16.8 40.1.554913.3.579.2.727 1990 Unknown [id number] 2.16.8 40.1.275176.3.579.2.727 1990 Unknown [id number] 2.16.8 40.1.704044.3.579.2.727 1990 Unknown [id number] 2.16.8 40.1.946674.3.579.2.727 1990 Unknown [id number] 2.16.8 40.1.675824.3.579.2.727 1990 Unknown [id number] 2.16.84 0.1.394503.3.579.2.593 1990 Unknown [id number] 2.16.84 0.1.855129.3.579.2.593 1990 Unknown [id number] 2.16.84 0.1.221590.3.579.2.593 1990 Unknown [id number] 2.16.84 0.1.538617.3.579.2.593 1990 Unknown [id number] 2.16.84 0.1.472428.3.579.2.593 1990 Unknown [id number] 2.16. 840.1.082821.3.579.2.356 1990 Unknown [id number] 2.16. 840.1.775630.3.579.2.196 1990 Unknown [id number] 2.16. 840.1.955190.3.579.2.196 1990 Unknown [id number] 2.16. 840.1.545922.3.579.2.196 1958 Medicaid [id number] 2. 16.840.1.769055.19 1958 Medicare [id number] 2.1 6.840.1.467818.19 Unknown [id number] 2.16.8 40.1.892620.3.579.2.531 Unknown [id number] 2.16.8 40.1.000948.3.579.2.531 Unknown [id number] 2.16.8 40.1.902937.3.579.2.531 Unknown [id number] 2.16.8 40.1.858823.3.579.2.531 Social History Date Type Detail Facility Tobacco [facility] Comment on above: Denies. Sex Assigned At Female [facility] Start: 06-18-2022 Tobacco smoking status Light t obacco smoker (finding) [facility] Comment on above: pt tab Start: 03-12-2022 End: 03-12-2022 Tobacco smoking status NHIS Never smoked tobacco (finding) [facility] Start: 1990 Sex Assigned At Female [facility] Functional Status Date Assessment Result Facility 08-29-2022 Functional Status N/A [facility] 06-18-2022 Functional Status N/A [facility] 05-28-2022 Functional Status N/A [facility] Clinical Notes 09-24-2021 to 01-20-2023 Note Date & Type Note Facility 01-20-2023 Note CONSULTATION CONSULTATION DATE: 01/20/2023 TO: SUSIE Navarrete CHIEF COMPLAINT: Severe left lower back pain. HISTORY: Patient is deaf and we conducted our interview and examination process in the presence of one of our staff members, as well as the design engineer agricultural equipment was present online. Patient reports having a [...] our patients to inform us about any cmdl-uzs-viywpdt medications or herbal remedies/nutritional supplements/alternative remedies. 2. [...] options with their primary care provider. [facility] 08-29-2022 Hospital Discharg e instructions Patient Education [...] Follow these instructions at home: Medicines Take swbw-zuy-zxwhpok and prescription medicines only as told by [...] and water are not available, use hand medical scheduler. Avoid contact with people who have cold [...] 10/08/2005 Document Revised: 07/14/2019 Document Reviewed: 02/18/2017 [employer] Patient Education 2020 [employer]. Follow Up Care 08/29/2022 17:24:30 With:BENTLEY LUCERO Address: [address] [place] [address]- Business (1) When:09/01/2022 18:22:15 Comments:Follow-up with your primary care provider in 3 to 5 days. If symptoms worsen, do not improve, or new symptoms arise please report back to emergency department for further evaluation. [facility] 06-18-2022 Hospital Discharg e instructions Patient [...] medicines to help relieve symptoms, such as: Rbyt-wqy-eaitvee cold medicines. Cough suppressants. Coughing is a [...] and other clear broths. General instructions Take tcws-hmh-joviuzt and prescription medicines only as told by [...] and water are not available, use hand medical scheduler. ?Avoid touching your mouth, face, eyes, or [...] 02/24/2002 Document Revised: 09/08/2019 Document Reviewed: 04/16/2018 [employer] Patient Education [employer]. Follow Up Care 06/18/2022 11:58:34 With:BENTLEY LUCERO Address: [address] [place] [address] [place] [address] [facility] (1) When:06/21/2022 13:13:35 [facility] 06-18-2022 Evaluation + Plan note Extrac flavio from: Title:ED Note Author:Grant Jacob PA-C te:06/18/22 Upper respiratory infection (J06.9: Acute upper respiratory infection, unspecified) Orders: loratadine-pseudoephedrine, 1 tab(s), Oral, q12hr for 10 day(s), 20 tab(s), Refill(s) 0, [facility], 165, cm, 06/18/22 12:19:00 EDT, Height/Length Dosing, 86, kg, 06/18/22 12:19:00 EDT, Weight Dosing Rapid COVID Antigen ([facility] [facility]09-14-2022 Evaluation + Plan noteExtracted from: Title:ED Note Author:Connor Castellanos DO Date: Chronic left-sided low back pain with left-sided sciatica (M54.42: Lumbago with sciatica, left side) Headache (R51.9: Headache, unspecified) Other chronic pain (G89.29: Other chronic pain) Orders: cyclobenzaprine, 10 mg = 1 tab(s), Oral, TID, PRN Muscle pain, # 15 tab(s), Refills(s) 0, Pharmacy: [facility], 165, cm, 05/28/22 10:56:00 EDT, Height/Length Dosing, 86, kg, 05/28/22 10:56:00 EDT, Weight Dosing ketorolac, 30 mg = 1 mL, Injection, IntraMuscular, Once, Stop date 05/28/22 11:29:00 EDT, STAT, Start date 05/28/22 11:29:00 EDT, 05/28/22 11:29:00 EDT methylPREDNISolone, = 1 packet(s), Oral, As Directed, as directed on package labeling, X 6 day(s), # 21 tab(s), Refills(s) 0, Pharmacy: [facility] 1985, 165, cm, 05/28/22 10:56:00 EDT, Height/Length Dosing, 86, kg, 05/28/22 10:56:00 EDT, Weight Dosing naproxen, 500 mg = 1 tab(s), Oral, BID, PRN for pain, # 20 tab(s), Refills(s) 0, Pharmacy: [facility] 1985, 165, cm, 05/28/22 10:56:00 EDT, Height/Length Dosing, 86, kg, 05/28/22 10:56:00 EDT, Weight Dosing orphenadrine, 60 mg = 2 mL, Injection, IntraMuscular, Once, Stop date 05/28/22 11:29:00 EDT, STAT, Start date 05/28/22 11:29:00 EDT, 05/28/22 11:29:00 EDT [facility]09-14-2022 Hospital Discharge instructions Patient Education 05/28/2022 [...] Follow these instructions at home: Medicines Take gfjz-oql-inijjri and prescription medicines only as told by your health care provider. Ask your health care provider if the medicine prescribed to you: ?Requires you to avoid driving or using heavy machinery. ?Can cause constipation. You may need to take these actions to prevent or treat constipation: ?Drink enough fluid to keep your urine pale yellow. ?Take nywj-ccb-gczvrlh or prescription medicines. ?Eat foods that are [...] 08/25/2002 Document Revised: 09/19/2019 Document Reviewed: 09/19/2019 [employer] Patient Education 2020 [employer]. 05/28/2022 11:31:52 Tension Headache, Adult Tension Headache, [...] these instructions at home: Managing pain Take iucd-grw-lbnxgnd and prescription medicines only as told by [...] 08/31/2006 Document Revised: 08/13/2018 Document Reviewed: 12/11/2017 [employer] Patient Education 2020 [employer]. Follow Up Care 05/28/2022 10:44:46 With:BENTLEY LUCERO Address: [address] [place] [address]- Business (1) When:05/31/2022 11:30:41 Comments:Call [...] breath, or any new or worsening symptoms. [facility]06-07-2022 NoteMicrobiology PROCEDURE: Strep Screen Culture [R1] SOURCE: Throat BODY SITE: COLLECTED DATE/TIME: 02/16/2022 12:08 EDT RECEIVED DATE/TIME: 02/16/2022 14:27 EDT START DATE/TIME: 02/16/2022 14:27 EDT FREE TEXT SOURCE: Cary Archuleta PA-C, PA-C, Kathryn E. FINAL REPORTS Final Report [] Verified Date/Time: 02/18/2022 11:48 EDT No Pathogenic Streptococcus Isolated Performing Locations R1: This test was performed at: [facility], [address] [place] [address], [address] [place] [address], OyredlOhiohealth Shelby HospitalComment on above:Performed By: #### [id number], [id number] ####[facility] [id number] [place], [place] [id number] NoteInfectious Disease COVID-19 Frequently Asked Questions COVID-19 (coronavirus disease) is an infection that is caused by a large family of viruses. Some viruses cause illness in people and others cause illness in animals like camels, cats, and bats. In some cases, the viruses that cause illness in animals can spread to humans. Where did the coronavirus come from? In August 2019, Ward told the World Health Organization (WHO) of several cases of lung disease (human respiratory illness). These cases were linked to an open seafood and livestock market in the city of [facility]. The link to the seafood and livestock [...] and virus naming World Health Organization (WHO): www.who.int/emergencies/diseases/vfcsp-qgaomkzdkfd-1878/technical-g uidance/oicctk-wam-blnfdagolnq-disease-(covid-2019)-suz-bpt-dsbrq-bkyy-siixia-mp Who is at risk for complications from [...] testing. Samples may in (more content not included)...[facility]04-28-2022 Hospital Discharge instructions Patient Education 01/09/2022 15:57:51 [...] the coronavirus come from? In August 2019, Ward told the World Health Organization (WHO) of several cases of lung disease (human respiratory illness). These cases were linked to an open seafood and livestock market in the city of [facility]. The link to the seafood and livestock [...] and virus naming World Health Organization (WHO): www.who.int/emergencies/diseases/ycnrw-txfoucaazgu-7787/technical-g uidance/dtdrht-zid-zogsnnepqht-disease-(covid-2019)-yhu-dso-hxaxm-fgwc-rcjvki-gw Who is at risk for complications from [...] relieve his or her symptoms by using mkhs-mvy-mmnrvfm medicines that treat sneezing, coughing, and runny [...] water are not available, use alcohol-based hand medical scheduler. Avoid touching your face, mouth, nose, or [...] Prevention (CDC): www.cdc.gov/coronavirus/2019-ncov/travelers/index.html World Health Organization (WHO): www.who.int/emergencies/diseases/owqcd-ppbomsibqlb-6574/travel-advice Know the risks and take action to [...] water are not available, use alcohol-based hand medical scheduler. Cough or sneeze into a tissue, sleeve, [...] in hot, soapy water or use a instrument person. Air-dry your dishes. Wash laundry in hot [...] Health Organization (WHO) Information and news updates: www.who.int/emergencies/diseases/grixx-ksrqfxoyewd-6934 Coronavirus health topic: www.who.int/health-topics/coronavirus Questions and answers on COVID-19: www.who.int/news-room/q-a-detail/r-d-xqqkqsrifvmiu Global tracker: who.[employer] [place] [employer] (AAP) Information for families: www.healthychildren.org/Mauritian/health-issues/conditions/chest-lungs/Pages /1796-Ioxio-Nahxjuskdir.aspx The coronavirus situation is changing rapidly. Check your local health authority website or the [facility]and WHO websites for updates and news. When [...] 12/27/2019 Document Revised: 12/27/2019 Document Reviewed: 12/27/2019 [employer] Patient Education 2020 [employer] 01/09/2022 15:57:51 COVID-19 COVID-19 COVID-19 is [...] to fight infection (immunocompromised). Live in a senior living or long-term care facility. Have a long-term [...] managed at home with rest, fluids, and giwp-cuj-djblghy medicines. Treatment for a serious infection usually [...] are safe for you. General instructions Take llzn-haa-fsplmzb and prescription medicines only as told by [...] water are not available, usean alcohol-based hand medical scheduler. ?Avoid touching your mouth, face, eyes, or [...] water are not available, use alcohol-based hand medical scheduler. Stay away from other members of your [...] have a weak immunity, live in a senior living, or have chronic disease. There is no [...] 10/06/2019 Document Revised: 01/26/2020 Document Reviewed: 10/06/2019 [employer] Patient Education 2019 [employer]. Follow Up Care 01/09/2022 13:51:01 With:BENTLEY LUCERO Address: [address] [place] [address] [facility] (1) When:01/12/2022 15:45:42 Comments:You should self quarantine for 5 days. Return to the emergency room if your symptoms get worse, youdevelop chest pain, shortness of breath or any new symptoms. [facility]04-28-2022 Evaluation + Plan noteExtracted from: Title:ED Note Author:Paul Moss, Devendra Ramirez te:01/09/22 1. COVID-19 virus infection (U07.1: COVID-19) Orders: ibuprofen, 600 mg = 1 tab(s), Tab, Oral, Once, Stop date 01/09/22 14:06:00 EDT, STAT, Start date 01/09/22 14:06:00 EDT, 01/09/22 14:06:00 EDT Group A Strep by PCR Influenza A&B Ag Rapid COVID Antigen [place] Rapid Strep w/rfx [facility]01-11-2022 NoteInfectious Disease COVID-19 COVID-19 is a [...] fight infection (immunocompromised). ? Live in a senior living or long-term care facility. ? Have a [...] managed at home with rest, fluids, and cpcg-sgi-hkozhfw medicines. Treatment for a serious infection usually [...] ? Rest at h (more content not included)...[facility] HospitalEvaluation noteNo [facility] Other Evaluation noteNo assessment information available [facility] Work Phone: [employer] Narrative - Reported* Type Description Date Surgical History appendectomy [facility] 2theloo Other Hospital course Narrative No data available for this section [facility] No data available for this section [facility] No data available for this section [facility] Summary Purpose Family History No Family [...] section and content) DATE CREATED AUTHOR 03/22/2018 [facility] DATE CREATED AUTHOR AUTHOR'S ORGANIZ ATION 09/07/2022 [facility] DATE CREATED AUTHOR AUTHOR'S ORGANIZ ATION 01/28/2023 [facility] DATE CREATED AUTHOR AUTHOR'S ORGANIZ ATION 05/27/2023 [facility] DATE CREATED AUTHOR AUTHOR'S ORGANIZ ATION 06/03/2023 [facility] DATE CREATED AUTHOR AUTHOR'S ORGANIZ ATION 08/14/2023 [facility] Care Team (unrecognized sect ion and content) Team Status: Inactive Member Role Status Dates Bentley Lucero NP-Rosy Primary Care Provider, Attending Provider Active Team Status: Active Member Role Status Dates Bentley Lucero NP-Rosy Primary Care Provider Active Team Status: Inactive Member Role Status Dates Bentley Lucero NP-C Attending Provider Active Team Status: Active Member Role Status Dates [facility] Primary Care Provider Ac tive Team Status: Inactive Member Role Status Dates SHANELLE Galdamez Attending Provider Active Services [facility] Primary Care Provider Julio joseph REASON FOR [...] BE BASED ON THE PRIMARY CLINICAL RECORDS. [employer] provides no warranty or guarantee of the accuracy or completeness of information in this document.
[2023-09-28 07:26] LABS: HCG Qualitative NEGATIVE (NEGATIVE)
[2023-09-28 07:32] VITALS: BP 131/91; PULSE 80; RESP 14; TEMP 36.4; O2SAT 99
[2023-09-28 07:36] LABS: Glucometer 92 mg/dL (74-106)
[2023-09-28] MEDS: 0.9 % SODIUM CHLORIDE 500 ML IV (07:37)
--- NOTE | 2023-09-28 08:41 | P.ON_ITS ---
Date of procedure: 09/28/23 Pre-op diagnosis: Lumbar spondylosis Post-op diagnosis: same as pre-op Procedure: Procedure: Bilateral L4-5, L5-S1 radiofrequency ablation Medications: Bupivacaine 0.25% 6cc, lidocaine 2% 5cc, kenalog 80mg The patient was seen and examined in the preoperative holding area.? The site was marked.? Written informed consent was obtained and placed on the chart.? The patient was brought to the medical procedure unit and placed in the prone position.? A timeout was completed verifying correct patient, procedure, positioning, and special requirements.? The skin overlying the target points, the designated medial branch, were prepped and draped in the usual sterile fashion.? The target point was achieved with a 20-gauge 15 cm with a 10 mm curved active tip radiofrequency cannula under direct fluoroscopic visualization.? The needle was inserted at level L4 on the right side. Needle tip position was confirmed with lateral fluoroscopic position.? Motor stimulation was carried out at 2 Hz up to 5 volts with the absence of extremity activity.? This was repeated at level L5, S1 on right side.?? Sensory stimulation was carried out.? Concordant pain was realized at the above- mentioned sites.? Then radiofrequency lesioning was carried out times 90 seconds at 80 degrees times 2 lesions at each level.? The radiofrequency probe was removed prior to cannula removal.? The above-mentioned injectate was placed in 1 mL increments.? The needle was removed. The same procedure, with the same steps, was then completed on the left side at the same levels. Insertion sites were covered.? The patient was taken to the postoperative recovery area and monitored for an appropriate length of time before being found suitable for discharge in the company of a responsible adult. Surgeon: George Bernstein Pathology: none sent Condition: stable Disposition: no change
[2023-09-28] MEDS: BUPIVACAINE HCL 0.25% PF 25 MG/10 ML VIAL 4 ML INJ (08:44)
[2023-09-28 08:45] VITALS: BP 105/83; PULSE 95; RESP 16; TEMP 36.5; O2SAT 94
[2023-09-28] MEDS: TRIAMCINOLONE ACETONIDE 40 MG/ML VIAL 80 MG INJ (08:45)
[2023-09-28] MEDS: LIDOCAINE HCL 2% 400 MG/20 ML MDV 13 ML INJ (08:45)
[2023-09-28 08:52] VITALS: BP 113/82; PULSE 92; RESP 16; TEMP 36.5; O2SAT 94
--- NOTE | 2023-09-28 08:56 | PC.NURSE ---
Pt coughing feels like it is hard to breathe Breathing treatment ordered per anesthesia. Ask pt if she wants interpretor dialed up she said no she will communicate with her phone
--- NOTE | 2023-09-28 09:13 | PC.NURSE ---
[id number] Pt c/o chest hurting Dr. Nielson notified Spoke with pt and Pt's mother on facetime. Pt tearful
[2023-09-28 09:14] VITALS: O2SAT 98
[2023-09-28] MEDS: ALBUTEROL SULFATE 2.5 MG/3 ML VIAL NEB IH (09:14)
[2023-09-28 09:18] VITALS: BP 128/86; PULSE 96; RESP 18; O2SAT 96
[2023-09-28 09:37] VITALS: O2SAT 94
== END 2023-09-28 09:36 | disposition home or self-care (01) ==
PROVIDERS: Visit Provider Anesthesiology
DX: M47.816 Spondylosis without myelopathy or radiculopathy, lumbar region (principal)
CPT/HCPCS: 36415; 64635; 64636; 82948; 84703; 94640; J0665; J2704; J3301

== ENCOUNTER 2023-10-19 12:10 | Day surgery (SDC) | payer MEDICARE, MEDICAID, SELFPAY ==
--- OUTSIDE RECORDS SUMMARY | 2023-10-19 12:21 | XMS_ITS | CCD ---
Author Name Unknown Address [address] [place] [address] Organization [facility] Care Team Providers Care Shucker Name Role Phone DION JACINTO Unavailable Unavailable [...] Admitting Unavailable Connor Castellanos Attending Unavailable Nic BANQUET HOUSEPERSON-C Bentley Hu Primary Care Provider Nic BANQUET HOUSEPERSON-Rosy Hu Attending Provider LAKSHMIPATHY ., NARENDRANATH Admitting Megha vailable LAKSHMIPATHY ., NARENDRANATH Consulting Megha vailable LAKSHMIPATHY ., NARENDRANATH Attending Megha vailable BENTLEY LUCERO Primary Care Unavailable LAKSHMIPATHY ., NARENDRANATH Attending Megha vailable SPASICBENTLEY Primary Care Unavailable LAKSHMIPATHY ., NARENDRANATH Admitting [...] Care Unavaila ble NEMESIO, ALEXANDRO Admitting Unavailable ALEXANDRO HERR Attending Unavailable PARRISH .ZOFIA Consulting Unavailani e ALEXANDRO HERR Consulting Unavailable Spasic, BANQUET HOUSEPERSON-C Bentley Hu Attending Provider [facility] Primary Care [facility] ider Spasic, Bentley E Primary Care Unavailable Spasic, Bentley E Attending Unavailable Spasic, Bentley E Admitting Unavailable Spasic, Bentley E Attending Unavailable Spasic, Bentley E Admitting Unavailable Spasic, Bentley E Primary Care Unavailable Spasic, Bentley E Attending Unavailable Spasic, Bentley E Admitting Unavailable Spasic, Bentley E Attending Unavailable Spasic, Bentley E Admitting Unavailable [facility] Primary Care U navailable Day FERRIS, Anddavid Lester Attending Unavailable Giedraitis , Andrius Vcarolyn Attending Unavailable Giemelynraitis , Andrius Vytnelli Attending Unavailable Gieditis , Andrius Vytnelli Attending Unavailable ADRIANNA ANDINO Attending Unavailable Allergies Allergy Classification Reported Allergen(s) Allergy Type Date of Onset Reaction(s) Facility (6 sources) Sulfonamides (Antibiotic); Translations: [sulfa drugs] Drug allergy Cutaneous eruption (morphologic abnormality) [facility] (1 source) Sulfacetamide / Sulfur Drug Allergy Unknown [facility] Other (5 sources) Sulfonamides (Antibiotic); Translations: [Sulfa (Sulfonamide Antibiotics)] Allergy to substance 05-15-20 19 [facility] (1 source) Sulfonamides (Antibiotic) Drug allergy (disorder) 04-11-20 17 [facility] Rep[facility] Medications Current Medications Medication Drug [...] Daily, # 3 tab(s), Refills(s) 0, Pharmacy: [facility], 165, cm, 06/19/20 21:06:00 EDT, Height/Length Dosing, 90.5, kg, 06/19/20 21:06:00 EDT, Weight Dosing Start Date: 06/20/20 Status: Ordered cetirizine hydrochloride 10 mg oral tablet (5 sources) Histamine-1 Receptor Antagonist Start: 06-20-2020 take 1 tablet by mouth once daily cetirizine 10 mg Tab 10 mg = 1 tab(s), Oral, Daily, # 30 tab(s), Refills(s) 0, Pharmacy: [facility], 165, cm, 06/19/20 21:06:00 EDT, [...] pain, # 15 tab(s), Refills(s) 0, Pharmacy: [facility], 165, cm, 05/28/22 10:56:00 EDT, [...] BID, 16 gram, Refill(s) 0, each nostril, [facility], 165, cm, 06/19/20 21:06:00 EDT, Height/Length Dosing, 90.5, kg, 06/19/20 21:06:00 EDT, Weight Dosing Start Date: 06/20/20 Status: Ordered fluticasone propionate 0.05 mg/actuat metered dose nasal spray (3 sources) Corticosteroid Start: 06-20-2020 take 1 spray(s) nasal route twice daily Flonase 0.05 mg/inh nasal spray 1 spray(s), Nasal, BID, 16 gram, Refill(s) 0, each nostril, [facility], 165, cm, 06/19/20 21:06:00 EDT, [...] for 10 day(s), 20 tab(s), Refill(s) 0, [facility], 165, cm, 06/18/22 12:19:00 EDT, Height/Length Dosing, 86, kg, 06/18/22 12:19:00 EDT, Weight Dosing Start Date: 06/18/22 Stop Date: 06/28/22 Status: Ordered methylPREDNISolone 4 mg oral tablet (1 source) Corticosteroid Start: 05-28-20 End: 06-03-20 Medrol 4 mg Tab = 1 packet(s), Oral, As Directed, as directed on package labeling, X 6 day(s), # 21 tab(s), Refills(s) 0, Pharmacy: [facility], 165, cm, 05/28/22 10:56:00 EDT, [...] pain, # 20 tab(s), Refills(s) 0, Pharmacy: [facility], 165, cm, 05/28/22 10:56:00 EDT, Height/Length Dosing, 86, kg, 05/28/22 10:56:00 EDT, Weight Dosing Start Date: 05/28/22 Status: Ordered L[place] Wolf 3 (1 source) [place] Wolf 3 Active [place] 4-Fxm-Boj-Fish Oil (Fish Oil) 1,000 mg (120 mg-180 mg) Capsule (4 sources) Start: 03-12-20 take 1 capsule by mouth once daily [place] 2-Zaz-Pcl-Fish Oil (Fish Oil) 1,000 mg (120 mg-180 mg) Capsule Active 1 CAP PO Daily March 12, 2022 12:00am Start: 03-12-2022 take 1 capsule by [facility] once daily [place] 2-Fvq-Elv-Fish Oil (Fish Oil) 1,000 mg (120 mg-180 [...] Nausea/Vomiting, # 12 tab(s), Refills(s) 0, Pharmacy: [facility], 165, cm, 03/05/21 17:57:00 EDT, Height/Length Dosing, 91, kg, 03/05/21 17:57:00 EDT, Weight Dosing Start Date: 03/05/21 Status: Ordered pantoprazole 40 mg delayed release oral tablet (3 sources) Proton Pump Inhibitor Start: 04-04-2021 take 1 tablet by mouth once daily Protonix 40 mg Tab-EC 40 mg = 1 tab(s), Oral, Daily, # 30 tab(s), Refills(s) 0, Pharmacy: [facility], 165, cm, 04/04/21 21:22:00 EDT, Height/Length Dosing, [...] Daily, # 30 tab(s), Refills(s) 0, Pharmacy: [facility], 165, cm, 04/04/21 21:22:00 EDT, [...] Daily, # 3 tab(s), Refills(s) 0, Pharmacy: [facility], 165, cm, 06/19/20 21:06:00 EDT, [...] Translations: [CONTACT W/AND (SUSP) EXPOS COVID-19] Onset: 04-24-2023 Unclassified (1 source) LOW BACK PAIN, UNSPECIFIED; [...] monitoron 0 05-25-2023 [place] [address] Cardiac Event Monitor Signed Patient: Leena Interiano MR#: [id number] : 1990 Acct:[id number] Age/Sex: 33 / F ADM Date: 04/22/23 Loc: Room: Type: [facility] Attending Dr: Bentley TIMMONS Copies to: Darrin Jay MD, [facility] SHNAELLE Galdamez Ordering Provider: SHANELLE Galdamez Date of [...] studies are available for comparison. Transcribed By: NTS 05/25/23 1521 Dictated By: Darrin Jay MD, [facility] 05/25/23 1047 Signed By: 05/26/23 1402 [facility] XR cervical spine LAT/FLX/EX Ton 04-22-2023 XR cervical spine LAT/FLX/EXT [facility] [place] [address] XRay Report Signed Patient: Leena Interiano MR#: [id number] : 1990 Acct:[id number] Age/Sex: 33 / F ADM Date: 04/22/23 Loc: Room: Type: [facility] Attending Dr: Bentley TIMMONS Copies to: [...] Gentry Acevedo M.D.04/22/2023 1:38 PM Dictation Location: [place] [address] Transcribed By: [facility] 04/22/23 1338 Dictated By: Gentry Acevedo DO 04/22/23 1337 Signed By: 04/22/23 1338 [facility] A1C with Estimated Average G edn 04-16-2023 Glucose [Mass/Vol] 111 mg/dL Normal [facility] Comment on above: Result Comment: PERF ORMED BY: [facility] [address] [place] [address] PATHOLOGIST ANODE BUILDER PRICE ZUNIGA M.D. Performed By: #### T SH3 wRFLX, A1C WTH eA, CBC, CALLUM, CMP, FE and TIBC, B12, [id number] ####[facility]#### INSULIN ####[facility] , HbA1c (Bld) [Mass fraction] 5.5 % Normal 4.3-5.6 [facility] Comment on above: Result Comment: Incr eased risk for diabetes: 5.7 - 6.4 diabetes: >6.4 glycemic control for adults with diabetes: <7.0 Performed By: #### T SH3 wRFLX, A1C WTH eA, CBC, CALLUM, CMP, FE and TIBC, B12, [id number] ####[facility]#### INSULIN ####[facility] , Alanine aminotransferase [En zymatic activity/volume] in Serum or PlasmaOrdered By: Bentley Lucero on 04-16-2023 ALT [Catalytic activity/Vol] 16 U/L 7-52 [facility] Albumin [Mass/volume] in Ser um or Plasma by Bromocresol green (BCG) dye binding methoOrdered By: Bentley Lucero on 04-16-2023 Albumin BCG dye [Mass/Vol] 4.3 g/dL 3.5-5.7 [facility] Alkaline phosphatase [Enzyma tic activity/volume] in Serum or PlasmaOrdered By: Bentley Lucero on 04-16-2023 ALP [Catalytic activity/Vol] 52 U/L 34-104 [facility] Aspartate aminotransferase [ Enzymatic activity/volume] in Serum or PlasmaOrdered By: Bentley Lucero on 04-16-2023 AST [Catalytic activity/Vol] 16 U/L 13-39 [facility] Basophils Auto (Bld) [#/Vol] Ordered By: Bentley Lucero on 04-16-2023 Basophils (Bld) [#/Vol] 0.0 10*3/uL 0.0-0.2 [facility] Basophils/100 WBC Auto (Bld) Ordered By: Bentley Tristansic on 04-16-2023 Basophils/100 WBC (Bld) 0.8 % . [facility] Bilirubin.total [Mass/volume ] in Serum or PlasmaOrdered By: Bentley Spasic on 04-16-2023 Bilirubin [Mass/Vol] 0.4 mg/dL 0.3-1.0 [facility] Calcium [Mass/volume] in Ser um or PlasmaOrdered By: Bentley Spasic on 04-16-2023 Calcium [Mass/Vol] 9.0 mg/dL 8.6-10.3 [facility] Carbon dioxide, total [Moles /volume] in Serum or PlasmaOrdered By: Bentley [facility] on 04-16-2023 CO2 [Moles/Vol] 24.8 mmol/L 21.0-31.0 [facility] Chloride [Moles/volume] in S hugo or PlasmaOrdered By: Bentley Spasic on 04-16-2023 Chloride [Moles/Vol] 109 mmol/L 98-107 [facility] Complete Blood Count Auto Di ffon 04-16-2023 Basophils (Bld) [#/Vol] 0.0 10*3/uL Normal 0.0-0.2 [facility] Comment on above: Result Comment: PERF ORMED BY: [place] [address] PATHOLOGIST ANODE BUILDER PRICE ZUNIGA M.D. Performed By: #### T SH3 wRFLX, A1C WTH eA, CBC, CALLUM, CMP, FE and TIBC, B12, [id number] #### [place] [address] [place] #### INSULIN #### [facility] , Basophils/100 WBC (Bld) 0.8 % Normal . [facility] Comment on above: Performed By: #### T SH3 wRFLX, A1C WTH eA, CBC, CALLUM, CMP, FE and TIBC, B12, [id number] #### [facility] [address] [place] [address] #### INSULIN #### [facility] , Eosinophils (Bld) [#/Vol] 0.1 10*3/uL Normal 0.0-0.45 [facility] Comment on above: Performed By: #### T SH3 wRFLX, A1C WTH eA, CBC, CALLUM, CMP, FE and TIBC, B12, [id number] #### [address] #### INSULIN #### [facility] , Eosinophils/100 WBC (Bld) 3.0 % Normal . [facility] Comment on above: Performed By: #### T SH3 wRFLX, A1C WTH eA, CBC, CALLUM, CMP, FE and TIBC, B12, [id number] #### [facility] [address] [place] [address] #### INSULIN #### [facility] , Erythrocyte distribution width (RBC) [Ratio] 13.3 % Normal 11.9-15.3 [facility] Comment on above: Performed By: #### T SH3 wRFLX, A1C WTH eA, CBC, CALLUM, CMP, FE and TIBC, B12, [id number] #### [facility] [address] [place] [address] [place] #### INSULIN #### [facility] , Hematocrit (Bld) [Volume fraction] 36.5 % Normal 34.0-46.4 [facility] Comment on above: Performed By: #### T SH3 wRFLX, A1C WTH eA, CBC, CALLUM, CMP, FE and TIBC, B12, [id number] #### [facility] [address] [place] [address] #### INSULIN #### [facility] , Hemoglobin (Bld) [Mass/Vol] 12.3 g/dL Normal 11.8-15.4 [facility] Comment on above: Performed By: #### T SH3 wRFLX, A1C WTH eA, CBC, CALLUM, CMP, FE and TIBC, B12, [id number] #### [facility] [address] [place] [address] #### INSULIN #### [facility] , Lymphocytes (Bld) [#/Vol] 2.2 10*3/uL Normal 1.00-4.8 [facility] Comment on above: Performed By: #### T SH3 wRFLX, A1C WTH eA, CBC, CALLUM, CMP, FE and TIBC, B12, [id number] #### [facility] [address] [place] [address] #### INSULIN #### [facility] , Lymphocytes/100 WBC (Bld) 43.7 % Normal . [facility] Comment on above: Performed By: #### T SH3 wRFLX, A1C WTH eA, CBC, CALLUM, CMP, FE and TIBC, B12, [id number] #### [facility] [address] [place] [address] #### INSULIN #### [facility] , MCH (RBC) [Entitic mass] 27.0 pg Normal 24.7-34.3 [facility] Comment on above: Performed By: #### T SH3 wRFLX, A1C WTH eA, CBC, CALLUM, CMP, FE and TIBC, B12, [id number] #### [facility] [address] [place] [address] [place] #### INSULIN #### [facility] , MCV (RBC) [Entitic vol] 79.9 fL Low 80-100 [facility] Comment on above: Performed By: #### T SH3 wRFLX, A1C WTH eA, CBC, CALLUM, CMP, FE and TIBC, B12, [id number] #### [facility] [address] [place] [address] [place] #### INSULIN #### [facility] , Mean Corpuscular HGB Conc 33.8 g/dL Normal 32.0-35.0 [facility] Comment on above: Performed By: #### T SH3 wRFLX, A1C WTH eA, CBC, CALLUM, CMP, FE and TIBC, B12, [id number] #### [facility] [address] [place] [address] #### INSULIN #### [facility] , Monocytes (Bld) [#/Vol] 0.3 10*3/uL Normal 0.0-0.8 [facility] Comment on above: Performed By: #### T SH3 wRFLX, A1C WTH eA, CBC, CALLUM, CMP, FE and TIBC, B12, [id number] #### [facility] [address] [place] [address] #### INSULIN #### [facility] , Monocytes/100 WBC (Bld) 5.2 % Normal . [facility] Comment on above: Performed By: #### T SH3 wRFLX, A1C WTH eA, CBC, CALLUM, CMP, FE and TIBC, B12, [id number] #### [facility] [address] [place] [address] #### INSULIN #### [facility] , Neutrophils (Bld) [#/Vol] 2.3 10*3/uL Normal 1.8-7.7 [facility] Comment on above: Performed By: #### T SH3 wRFLX, A1C WTH eA, CBC, CALLUM, CMP, FE and TIBC, B12, [id number] #### [facility] [address] [place] [address] [place] #### INSULIN #### [facility] , Neutrophils/100 WBC (Bld) 47.3 % Normal . [facility] Comment on above: Performed By: #### T SH3 wRFLX, A1C WTH eA, CBC, CALLUM, CMP, FE and TIBC, B12, [id number] #### [facility] [address] [place] [address] #### INSULIN #### [facility] , NRBC% 0.2 /100{WBC} Normal 0-0.5 [facility] Comment on above: Performed By: #### T SH3 wRFLX, A1C WTH eA, CBC, CALLUM, CMP, FE and TIBC, B12, [id number] #### [facility] [address] [place] [address] [place] #### INSULIN #### [facility] , Platelet mean volume (Bld) [Entitic vol] 9.2 fL Normal 6.3-10.7 [facility] Comment on above: Performed By: #### T SH3 wRFLX, A1C WTH eA, CBC, CALLUM, CMP, FE and TIBC, B12, [id number] #### [address] #### INSULIN #### [facility] , Platelets (Bld) [#/Vol] 260 10*3/uL Normal 150-450 [facility] Comment on above: Performed By: #### T SH3 wRFLX, A1C WTH eA, CBC, CALLUM, CMP, FE and TIBC, B12, [id number] #### [place] [address] [place] #### INSULIN #### [facility] , RBC (Bld) [#/Vol] 4.57 10*6/uL Normal 3.60-5.00 [facility] Comment on above: Performed By: #### T SH3 wRFLX, A1C WTH eA, CBC, CALLUM, CMP, FE and TIBC, B12, [id number] #### [facility] [address] [place] [address] [place] #### INSULIN #### [facility] , WBC (Bld) [#/Vol] 4.9 10*3/uL Normal 3.8-11.6 [facility] Comment on above: Performed By: #### T SH3 wRFLX, A1C WTH eA, CBC, CALLUM, CMP, FE and TIBC, B12, [id number] #### [facility] [address] [place] [address] [place] #### INSULIN #### [facility] , Comprehensive Metabolic Pane adam 04-16-2023 Albumin [Mass/Vol] 4.3 g/dL Normal 3.5-5.7 [facility] Comment on above: Performed By: #### T SH3 wRFLX, A1C WTH eA, CBC, CALLUM, CMP, FE and TIBC, B12, [id number] #### [facility] [address] [place] [address] [place] #### INSULIN #### [facility] , Albumin/Globulin [Mass ratio] 1.7 {ratio} Normal [facility] Comment on above: Performed By: #### T SH3 wRFLX, A1C WTH eA, CBC, CALLUM, CMP, FE and TIBC, B12, [id number] #### [facility] [address] [place] [address] [place] #### INSULIN #### [facility] , ALP [Catalytic activity/Vol] 52 U/L Normal 34-104 [facility] Comment on above: Performed By: #### T SH3 wRFLX, A1C WTH eA, CBC, CALLUM, CMP, FE and TIBC, B12, [id number] #### [facility] [address] [place] [address] [place] #### INSULIN #### [facility] , ALT [Catalytic activity/Vol] 16 U/L Normal 7-52 [facility] Comment on above: Performed By: #### T SH3 wRFLX, A1C WTH eA, CBC, CALLUM, CMP, FE and TIBC, B12, [id number] #### [facility] [address] [place] [address] [place] #### INSULIN #### [facility] , Anion gap [Moles/Vol] 10.1 mmol/L Normal 6.0-15.0 [facility] Comment on above: Performed By: #### T SH3 wRFLX, A1C WTH eA, CBC, CALLUM, CMP, FE and TIBC, B12, [id number] #### [facility] [address] [place] [address] [place] #### INSULIN #### [facility] , AST [Catalytic activity/Vol] 16 U/L Normal 13-39 [facility] Comment on above: Performed By: #### T SH3 wRFLX, A1C WTH eA, CBC, CALLUM, CMP, FE and TIBC, B12, [id number] #### [facility] [address] [place] [address] #### INSULIN #### [facility] , Bilirubin [Mass/Vol] 0.4 mg/dL Normal 0.3-1.0 [facility] Comment on above: Performed By: #### T SH3 wRFLX, A1C WTH eA, CBC, CALLUM, CMP, FE and TIBC, B12, [id number] #### [facility] [address] [place] [address] #### INSULIN #### [facility] , Calcium [Mass/Vol] 9.0 mg/dL Normal 8.6-10.3 [facility] Comment on above: Performed By: #### T SH3 wRFLX, A1C WTH eA, CBC, CALLUM, CMP, FE and TIBC, B12, [id number] #### [facility] [address] [place] [address] [place] #### INSULIN #### [facility] , Chloride [Moles/Vol] 109 mmol/L High 98-107 [facility] Comment on above: Performed By: #### T SH3 wRFLX, A1C WTH eA, CBC, CALLUM, CMP, FE and TIBC, B12, [id number] #### [facility] [address] [place] [address] [place] #### INSULIN #### [facility] , CO2 [Moles/Vol] 24.8 mmol/L Normal 21.0-31.0 [facility] Comment on above: Performed By: #### T SH3 wRFLX, A1C WTH eA, CBC, CALLUM, CMP, FE and TIBC, B12, [id number] #### [facility] [address] [place] [address] [place] #### INSULIN #### [facility] , Creatinine [Mass/Vol] 0.84 mg/dL Normal 0.60-1.20 [facility] Comment on above: Performed By: #### T SH3 wRFLX, A1C WTH eA, CBC, CALLUM, CMP, FE and TIBC, B12, [id number] #### [facility] [address] [place] [address] #### INSULIN #### [facility] , GFR/1.73 sq M.predicted MDRD (S/P/Bld) [Vol rate/Area] mL/min/{1.73_m2} [facility] Comment on above: Performed By: #### T SH3 wRFLX, A1C WTH eA, CBC, CALLUM, CMP, FE and TIBC, B12, [id number] #### [facility] [address] [place] [address] [place] #### INSULIN #### [facility] , Globulin (S) [Mass/Vol] 2.6 g/dL Normal [facility] Comment on above: Performed By: #### T SH3 wRFLX, A1C WTH eA, CBC, CALLUM, CMP, FE and TIBC, B12, [id number] #### [facility] [address] [place] [address] [place] #### INSULIN #### [facility] , Glucose [Mass/Vol] 116 mg/dL High 70-100 [facility] Comment on above: Result Comment: [place] Glucose Reference Range is dependent on time and content of last meal. Glucose of more than 200 mg/dL in a nonstressed, ambulatory subject supports the diagnosis of Diabetes Mellitus. ADA recommended reference range Performed By: #### T SH3 wRFLX, A1C WTH eA, CBC, CALLUM, CMP, FE and TIBC, B12, [id number] #### [facility] [address] [place] [address] [place] #### INSULIN #### [facility] , Potassium [Moles/Vol] 3.9 mmol/L Normal 3.5-5.1 [facility] Comment on above: Performed By: #### T SH3 wRFLX, A1C WTH eA, CBC, CALLUM, CMP, FE and TIBC, B12, [id number] #### [facility] [address] [place] [address] [place] #### INSULIN #### [facility] , Protein [Mass/Vol] 6.9 g/dL Normal 6.4-8.9 [facility] Comment on above: Performed By: #### T SH3 wRFLX, A1C WTH eA, CBC, CALLUM, CMP, FE and TIBC, B12, [id number] #### [facility] [address] [place] [address] [place] #### INSULIN #### [facility] , Sodium [Moles/Vol] 140 mmol/L Normal 136-145 [facility] Comment on above: Performed By: #### T SH3 wRFLX, A1C WTH eA, CBC, CALLUM, CMP, FE and TIBC, B12, [id number] #### [facility] [address] [place] [address] [place] #### INSULIN #### [facility] , Urea nitrogen [Mass/Vol] 14 mg/dL Normal 7-25 [facility] Comment on above: Performed By: #### T SH3 wRFLX, A1C WTH eA, CBC, CALLUM, CMP, FE and TIBC, B12, [id number] #### [facility] [address] [place] [address] [place] #### INSULIN #### [facility] , Creatinine [Mass/volume] in Serum or PlasmaOrdered By: Bentley Lucero on 04-16-2023 Creatinine [Mass/Vol] 0.84 mg/dL 0.60-1.20 [facility] Eosinophils Auto (Bld) [#/Vo l]Ordered By: Bentley Lucero on 04-16-2023 Eosinophils (Bld) [#/Vol] 0.1 10*3/uL 0.0-0.45 [facility] Eosinophils/100 WBC Auto (Bl d)Ordered By: Bentley Lucero on 04-16-2023 Eosinophils/100 WBC (Bld) 3.0 % . [facility] Erythrocyte distribution wid th Auto (RBC) [Ratio]Ordered By: Bentley Lucero on 04-16-2023 Erythrocyte distribution width (RBC) [Ratio] 13.3 % 11.9-15.3 [facility] Ferritinon 04-16-2023 Ferritin [Mass/Vol] 12.7 ng/mL Normal 11.0-306.8 [facility] Comment on above: Performed By: #### T SH3 wRFLX, A1C WTH eA, CBC, CALLUM, CMP, FE and TIBC, B12, [id number] #### [facility] [address] #### INSULIN #### [facility] , Ferritin [Mass/volume] in Se rum or PlasmaOrdered By: Bentley Lucero on 04-16-2023 Ferritin [Mass/Vol] 12.7 ng/mL 11.0-306.8 [facility] Globulin Calc (S) [Mass/Vol] Ordered By: Bentley Lucero on 04-16-2023 Globulin (S) [Mass/Vol] 2.6 g/dL [facility] Glucose [Mass/volume] in Ser um or PlasmaOrdered By: Bentley Lucero on 04-16-2023 Glucose [Mass/Vol] 116 mg/dL 70-100 [facility] Comment on above: ADA recommended refe rence rangeRandom Glucose Reference Range is dependent on time and content of last meal. Glucose of more than 200 mg/dL in a nonstressed, ambulatory subject supports the diagnosis of Diabetes Mellitus. Glucose mean value [Mass/vol ume] in Blood Estimated from glycated hemoglobinOrdered By: Bentley Lucero on 04-16-2023 Average glucose Estimated from glycated hemoglobin (Bld) [Mass/Vol] 111 mg/dL [facility] Hematocrit Auto (Bld) [Volum e fraction]Ordered By: Bentley Lucero on 04-16-2023 Hematocrit (Bld) [Volume fraction] 36.5 % 34.0-46.4 [facility] Hemoglobin A1c percentageOrd ered By: eBntley Lucero on 04-16-2023 HbA1c (Bld) [Mass fraction] 5.5 % 4.3-5.6 [facility] Comment on above: Increased risk for d iabetes: 5.7 - 6.4diabetes: >6.4glycemic control for adults with diabetes: <7.0 Hemoglobin [Mass/volume] in BloodOrdered By: Bentley Lucero on 04-16-2023 Hemoglobin (Bld) [Mass/Vol] 12.3 g/dL 11.8-15.4 [facility] Insulinon 04-16-2023 Insulin 44.2 u[iU]/mL High 2.6-24.9 [facility] Comment on above: Result Comment: Perf ormed at: CB - [facility] [place] [id number] Cutting Machine Fixer: Arturo Souza PhD, Phone: [phone] PERFORMED BY: [facility] [address] [place] [address] PATHOLOGIST ANODE BUILDER PRICE ZUNIGA M.D. Performed By: #### T SH3 wRFLX, A1C WTH eA, CBC, CALLUM, CMP, FE and TIBC, B12, [id number] ####[facility] [id number]#### INSULIN ####[facility] , Iron [Mass/volume] in Serum or PlasmaOrdered By: Bentley Lucero on 04-16-2023 Iron [Mass/Vol] 55 ug/dL 50-212 [facility] Iron and TIBC Profileon 08-0 % Iron Saturation 16.0 % Low 20-50 [facility] Comment on above: Performed By: #### T SH3 wRFLX, A1C WTH eA, CBC, CALLUM, CMP, FE and TIBC, B12, [id number] #### [facility] [address] [place] [address] [place] #### INSULIN #### [facility] , Iron [Mass/Vol] 55 ug/dL Normal 50-212 [facility] Comment on above: Performed By: #### T SH3 wRFLX, A1C WTH eA, CBC, CALLUM, CMP, FE and TIBC, B12, [id number] #### [facility] [address] [place] [address] [place] #### INSULIN #### [facility] , Total Iron Binding Capacity 344 ug/dL Normal 255-450 [facility] Comment on above: Performed By: #### T SH3 wRFLX, A1C WTH eA, CBC, CALLUM, CMP, FE and TIBC, B12, [id number] #### [facility] [address] [place] [address] [place] #### INSULIN #### [facility] , Transferrin [Mass/Vol] 246 mg/dL Normal 203-362 [facility] Comment on above: Performed By: #### T SH3 wRFLX, A1C WTH eA, CBC, CALLUM, CMP, FE and TIBC, B12, [id number] #### [facility] [address] [place] [address] [place] #### INSULIN #### [facility] , Iron binding capacity [Mass/ volume] in Serum or PlasmaOrdered By: Bentley Lucero on 04-16-2023 Iron binding capacity [Mass/Vol] 344 ug/dL 255-450 [facility] Iron saturation [Mass Fracti on] in Serum or PlasmaOrdered By: Bentley Lucero on 04-16-2023 Iron saturation [Mass fraction] 16.0 % 20-50 [facility] Leukocytes [#/volume] correc flavio for nucleated erythrocytes in Blood by Automated counOrdered By: Bentley Lucero on 04-16-2023 WBC corrected for nucl RBC Auto (Bld) [#/Vol] 4.9 10*3/uL 3.8-11.6 [facility] Lymphocytes Auto (Bld) [#/Vo l]Ordered By: Bentley Lucero on 04-16-2023 Lymphocytes (Bld) [#/Vol] 2.2 10*3/uL 1.00-4.8 [facility] Lymphocytes/100 WBC Auto (Bl d)Ordered By: Bentley Lucero on 04-16-2023 Lymphocytes/100 WBC (Bld) 43.7 % . [facility] MCH Auto (RBC) [Entitic mass ]Ordered By: Bentley Lucero on 04-16-2023 MCH (RBC) [Entitic mass] 27.0 pg 24.7-34.3 [facility] MCHC Auto (RBC) [Mass/Vol]Or dered By: Bentley Lucero on 04-16-2023 MCHC (RBC) [Mass/Vol] 33.8 g/dL 32.0-35.0 [facility] MCV Auto (RBC) [Entitic vol] Ordered By: Bentley Englishc on 04-16-2023 MCV (RBC) [Entitic vol] 79.9 fL 80-100 [facility] Monocytes Auto (Bld) [#/Vol] Ordered By: Bentley Englishc on 04-16-2023 Monocytes (Bld) [#/Vol] 0.3 10*3/uL 0.0-0.8 [facility] Monocytes/100 WBC Auto (Bld) Ordered By: Bentley Englishc on 04-16-2023 Monocytes/100 WBC (Bld) 5.2 % . [facility] Neutrophils Auto (Bld) [#/Vo l]Ordered By: Bentley Tristansic on 04-16-2023 Neutrophils (Bld) [#/Vol] 2.3 10*3/uL 1.8-7.7 [facility] Neutrophils/100 WBC Auto (Bl d)Ordered By: Bentley Englishc on 04-16-2023 Neutrophils/100 WBC (Bld) 47.3 % . [facility] No Panel InformationOrdered By: Bentley Lucero on 04-16-2023 Estimated GFR (CKD-EPI) > 60.0 mL/Min [facility] Creatinine Clearance (Chem N/A [facility] Nucleated erythrocytes [Pres ence] in Blood by Automated countOrdered By: Bentley Lucero on 04-16-2023 Nucleated RBC Auto Ql (Bld) 0.2 /100{WBC} 0-0.5 [facility] Platelet mean volume Auto (B ld) [Entitic vol]Ordered By: Bentley Lucero on 04-16-2023 Platelet mean volume (Bld) [Entitic vol] 9.2 fL 6.3-10.7 [facility] Platelets Auto (Bld) [#/Vol] Ordered By: Bentley Lucero on 04-16-2023 Platelets (Bld) [#/Vol] 260 10*3/uL 150-450 [facility] Potassium [Moles/volume] in Serum or PlasmaOrdered By: Bentley Lucero on 04-16-2023 Potassium [Moles/Vol] 3.9 mmol/L 3.5-5.1 [facility] Protein [Mass/volume] in Ser um or PlasmaOrdered By: Bentley Lucero on 04-16-2023 Protein [Mass/Vol] 6.9 g/dL 6.4-8.9 [facility] RBC Auto (Bld) [#/Vol]Ordere d By: Bentley Lucero on 04-16-2023 RBC (Bld) [#/Vol] 4.57 10*6/uL 3.60-5.00 [facility] Serum or plasma albumin/glob ulin mass ratioOrdered By: Bentley Lucero on 04-16-2023 Albumin/Globulin [Mass ratio] 1.7 {ratio} [facility] Serum or plasma anion gap de terminationOrdered By: Bentley Lucero on 04-16-2023 Anion gap [Moles/Vol] 10.1 mmol/L 6.0-15.0 [facility] Serum or plasma insulin jose urement (units/volume)Ordered By: Bentley Lucero on 04-16-2023 Insulin Qn 44.2 u[iU]/mL 2.6-24.9 [facility] Comment on above: Performed at: [address] [id number] Director: Arturo Souza PhD, Phone: [phone] Sodium [Moles/volume] in Ser um or PlasmaOrdered By: Bentley Lucero on 04-16-2023 Sodium [Moles/Vol] 140 mmol/L 136-145 [facility] Thyroid Stim Hormone w/Rflxo n 04-16-2023 Thyroid Stim Hormone w/Rflx 1.14 u[iU]/mL Normal 0.45-5.33 [facility] Comment on above: Performed By: #### T SH3 wRFLX, A1C WTH eA, CBC, CALLUM, CMP, FE and TIBC, B12, [id number] #### [facility] [address] [place] [address] #### INSULIN #### [facility] , Thyrotropin [Units/volume] i n Serum or PlasmaOrdered By: Bentley Lucero on 04-16-2023 TSH Qn 1.14 m[IU]/L 0.45-5.33 [facility] Transferrin [Mass/volume] in Serum or PlasmaOrdered By: Bentley Lucero on 04-16-2023 Transferrin [Mass/Vol] 246 mg/dL 203-362 [facility] Urea nitrogen [Mass/volume] in Serum or PlasmaOrdered By: Bentley Lucero on 04-16-2023 Urea nitrogen [Mass/Vol] 14 mg/dL 7-25 [facility] Vitamin B12on 04-16-2023 Cobalamin (Vitamin B12) [Mass/Vol] 195 pg/mL Normal 180-914 [facility] Comment on above: Performed By: #### T SH3 wRFLX, A1C WTH eA, CBC, CALLUM, CMP, FE and TIBC, B12, [id number] #### [facility] [address] [place] [address] [place] #### INSULIN #### [facility] , Vitamin B12 ser/plasOrdered By: Bentley Lucero on 04-16-2023 Cobalamin (Vitamin B12) [Mass/Vol] 195 pg/mL 180-914 [facility] Vitamin D 25 Hydroxy Totalon 04-16-2023 Vitamin D 25 Hydroxy Total 21.1 ng/mL Low 30-100 [facility] Comment on above: Result Comment: BAHMAN MIN D STATUS 25([place])VITAMIN D RANGE (ng/mL) Deficient <20 Insufficient 20 to <30 Sufficient 30 to 100 Reference: Briana Billy, Brenton VARGAS, et al. Evaluation,treatment, and prevention of vitamin D deficiency; an Endocrine Society clinical practice guideline. JCEM. 2010; 96(7):1911-30. PERFORMED BY: [facility] [address] [place] [address] PATHOLOGIST ANODE BUILDER PRICE ZUNIGA M.D. Performed By: #### T SH3 wRFLX, A1C WTH eA, CBC, CALLUM, CMP, FE and TIBC, B12, [id number] ####[facility]#### INSULIN ####[facility] , Vitamin D+Metabolites [Mass/ volume] in Serum or PlasmaOrdered By: Bentley Lucero on 04-16-2023 Vitamin D+Metabolites [Mass/Vol] 21.1 ng/mL 30-100 [facility] Comment on above: VITAMIN D STATUS 25( [place])VITAMIN D RANGE (ng/mL) Deficient <20 Insufficient 20 to <30Sufficient 30 to 100Reference: Briana Billy, Brenton VARGAS, et al. Evaluation,treatment, and prevention of vitamin D deficiency; an Endocrine Society clinical practice guideline. JCEM. 2010; 96(7):1911-30. WBC Auto (Bld) [#/Vol]Ordere d By: Bentley Lucero on 04-16-2023 WBC (Bld) [#/Vol] 4.9 10*3/uL 3.8-11.6 [facility] ER URINE PROFILEon 3 Bilirubin Ql (U) Negative Normal NEGATIVE [facility] Comment on above: Performed By: #### P REGU, ERUR, UMICRO #### [facility] [address] [place] [address] [address] Samm Hurtado Clarity (U) CLEAR Normal CLEAR [facility] Comment on above: Performed By: #### P REGU, ERUR, UMICRO #### [facility] [address] [address] [address] Samm Hurtado Color (U) YELLOW Normal YELLOW [facility] Comment on above: Performed By: #### P REGU, ERUR, UMICRO #### [facility] [address] [address] [address] Samm OVALLE A micrscopic examination will be performed if indicated. Normal [facility] Comment on above: Performed By: #### P REGU, ERUR, UMICRO #### [facility] [address] [address] [address] Samm Hurtado Glucose Ql (U) Negative Normal NEGATIVE [facility] Comment on above: Performed By: #### P REGU, ERUR, UMICRO #### [facility] [address] [address] [address] Samm Hurtado Hemoglobin Ql (U) LARGE Abnormal NEGATIVE [facility] Comment on above: Performed By: #### P REGU, ERUR, UMICRO #### [facility] [address] [address] [address] Samm Hurtado Ketones Ql (U) Negative Normal NEGATIVE [facility] Comment on above: Performed By: #### P REGU, ERUR, UMICRO #### [facility] [address] [address] [address] Samm Hurtado LEUKOCYTES Negative Normal NEGATIVE [facility] Comment on above: Performed By: #### P REGU, ERUR, UMICRO #### [facility] [address] [address] [address] Samm Hurtado Nitrite Ql (U) Negative Normal NEGATIVE [facility] Comment on above: Performed By: #### P REGU, ERUR, UMICRO #### [facility] [address] [address] [address] Samm Hurtado pH (U) 5.5 [pH] Normal 5-9 [facility] Comment on above: Performed By: #### P REGU, ERUR, UMICRO #### [facility] [address] [address] [address] Samm Hurtado SPEC GRAVITY >=1.030 Abnormal 1.005-<=1.[address] [place] [address] Comment on above: Performed By: #### P REGU, ERUR, UMICRO #### [facility] [address] [address] [address] Samm Hurtado UA PROTEIN Negative Normal NEGATIVE/ TRACE [facility] Comment on above: Performed By: #### P REGU, ERUR, UMICRO #### [facility] [address] [place] [address] Dr. Samm Hurtado UR MICRO IND INDICATED Normal [facility] Comment on above: Performed By: #### P REGU, ERUR, UMICRO #### [facility] [address] [place] [address] Dr. Samm Hurtado Urobilinogen Qn (U) 0.2 {Edwin'U}/dL Normal 0.2 - 1. 0 [facility] Comment on above: Performed By: #### P REGU, ERUR, UMICRO #### [facility] [address] [place] [address] Dr. Samm Hurtado URon 01-01-2023 , QUAL Negative Normal NEGATIVE [facility] Comment on above: Performed By: #### P REGU, ERUR, UMICRO #### [facility] [address] [place] [address] Dr. Samm Hurtado RESPIRATORY PANEL PLUSon Adenovirus Not detected Normal NOT DETECTED [facility] Comment on above: Performed By: #### R SPLUS ####[facility] [address] [address]Dr. Samm Hurtado B. Parapertusis Not detected Normal NOT DETECTED [facility] Comment on above: Performed By: #### R SPLUS ####[facility] [address] [place] [address]Dr. Smam Hurtado B. Pertussis Not detected Normal NOT DETECTED [facility] Comment on above: Performed By: #### R SPLUS ####[facility] [address] [address]Dr. Samm Hurtado Chlamydia Pneumoniae Not detected Normal NOT DETECTED [facility] Comment on above: Performed By: #### R SPLUS ####[facility] [address] [place], [place] [address]Dr. Samm Hurtado Coronavirus 229E Not detected Normal NOT DETECTED [facility] Comment on above: Performed By: #### R SPLUS ####[facility] [address] [place], [place] [address]Dr. Samm Hurtado Coronavirus HKU1 Not detected Normal NOT DETECTED [facility] Comment on above: Performed By: #### R SPLUS ####[facility] [address] [place], [place] [address]Dr. Samm Hurtado Coronavirus NL63 Not detected Normal NOT DETECTED [facility] Comment on above: Performed By: #### R SPLUS ####[facility] [address] [place], [place] [address]Dr. Samm Hurtado Coronavirus OC43 Not detected Normal NOT DETECTED [facility] Comment on above: Performed By: #### R SPLUS ####[facility] [address] [place], [place] [address]Dr. Samm Hurtado Influenza A H1 Not detected Normal NOT DETECTED [facility] Comment on above: Performed By: #### R SPLUS ####[facility] [address] [place] [address]Dr. Samm Hurtado Influenza A H1 2009 Not detected Normal NOT DETECTED [facility] Comment on above: Performed By: #### R SPLUS ####[facility] Q[address] [place], [place] [address]Dr. Samm Hurtado Influenza A H3 Not detected Normal NOT DETECTED [facility] Comment on above: Performed By: #### R SPLUS ####[facility] [address] [place] [address]Dr. Samm Hurtado Influenza B Not detected Normal NOT DETECTED [facility] Comment on above: Performed By: #### R SPLUS ####[facility] [address] [place], [place] [address]Dr. Samm Hurtado Metapneumovirus Not detected Normal NOT DETECTED [facility] Comment on above: Performed By: #### R SPLUS ####[facility] [address] [place], [place] [address]Dr. Samm Hurtado Mycoplas. Pneumoniae Not detected Normal NOT DETECTED [facility] Comment on above: Performed By: #### R SPLUS ####[facility] [address] [place], [place] [address]Dr. Samm Hurtado Parainfluenza 1 Not detected Normal NOT DETECTED [facility] Comment on above: Performed By: #### R SPLUS ####[facility] [address] [place], [place] [address]Dr. Samm Hurtado Parainfluenza 2 Not detected Normal NOT DETECTED [facility] Comment on above: Performed By: #### R SPLUS ####[facility] [address] [place], [place] [address]Dr. Samm Hurtado Parainfluenza 3 Not detected Normal NOT DETECTED [facility] Comment on above: Performed By: #### R SPLUS ####[facility] [address] [place], [place] [address]Dr. Samm Hurtado Parainfluenza 4 Not detected Normal NOT DETECTED [facility] Comment on above: Performed By: #### R SPLUS ####[facility] [address] [place], [place] [address]Dr. Samm Hurtado Rhino/Enterovirus Detected Abnormal NOT DETECTED [facility] Comment on above: Performed By: #### R SPLUS ####[facility] [address] [place], [place] [address]Dr. Samm Hurtado RP2 Header 1 RESPIRATORY PANEL: VIRUSES Normal [facility] Comment on above: Performed By: #### R SPLUS ####[facility] [address] [place], [place] [address]Dr. Samm Hurtado RP2 Header 2 RESPIRATORY PANEL: BACTERIA Normal [facility] Comment on above: Performed By: #### R SPLUS ####[facility] [address] [place] [address]Dr. Samm Hurtado RSV Not detected Normal NOT DETECTED [facility] Comment on above: Performed By: #### R SPLUS ####[facility] [address] [address]DrDaquan Hurtado SARS-CoV-2 (COVID-19) RNA PARI+probe Ql (Unsp spec) Not detected Normal NOT DETECTED [facility] Comment on above: Performed By: #### R SPLUS ####[facility] [address] [address]Dr. Samm Hurtado URINE MICROSCOPIC ONLYon BACTERIA NONE SEEN Normal NONE SEEN [facility] Comment on above: Performed By: #### P REGU, ERUR, UMICRO #### [facility] [address] [place] [address] Dr. Samm Hurtado Bacteria identified Cx Nom (U) NOT INDICATED Normal [facility] Comment on above: Performed By: #### P REGU ERUR, UMICRO #### [facility] [address] [address] [address] Samm Hurtado CAST NONE SEEN Normal NONE SEEN [facility] Comment on above: Performed By: #### P REGU, ERUR, UMICRO #### [facility] [address] [place] [address] Dr. Samm Hurtado Crystals LM Nom (Urine sed) SEEN Abnormal NONE SEEN [facility] Comment on above: Performed By: #### P REGU, ERUR, UMICRO #### [facility] [address] [address] [address] Samm Hurtado Epithelial cells LM Ql (Urine sed) FEW Abnormal NONE SEEN /RARE [facility] Comment on above: Performed By: #### P REGU, ERUR, UMICRO #### [facility] [address] [address] [address] Samm Hurtado MUCOUS TRACE Abnormal NONE SEEN [facility] Comment on above: Performed By: #### P REGU, ERUR, UMICRO #### [facility] [address] [address] [address] Samm Hurtado RBC 10-20 Abnormal 0-2 [facility] Comment on above: Performed By: #### P REGU, ERUR, UMICRO #### [facility] [address] [place], [place] [address] Dr. Samm Hurtado WBC NONE SEEN Normal NONE SEEN [facility] Comment on above: Performed By: #### P REGU, ERUR, UMICRO #### [facility] [address] [place], [place] [address] Dr. Samm Hurtado XR CHEST 1 Von [...] VANESSA JEREZ Date: 2023-01-01 13:22 Normal [facility] CT lumbar spine wo conon CT lumbar spine wo con [facility] [place] [address] CT Scan Report Signed Patient: Leena Interiano MR#: [id number] : 1990 Acct:[id number] Age/Sex: 32 / F ADM Date: 10/30/22 [facility]: [facility] Room: Type: [facility] Attending Dr: Bentley TIMMONS Copies to: SHANELLE [...] Adriana Hoffman M.D.10/30/2022 5:11 PM Dictation Location: [place] [address] Transcribed By: [facility] 10/30/221710 Dictated By: Adriana Hoffman MD 10/30/221702 Signed By: 10/30/22 171 [facility] breast LT [facility] 10-[address] [facility] [place] [address] Mammography Report Signed Patient: Leena Interiano MR#: [id number] : 1990 Acct:[id number] Age/Sex: 32 / F ADM Date: 10/30/22 [facility] Room: Type: REG CLI Attending Dr: Bentley TIMMONS Copies to: SHANELLE Galdamez Ordering Provider: SHANELLE Galdamez Date of Service: 10/30/22 MM/MM diagnostic mammo BI w/CAD: Mass overlapping multiple quadrants of left breast ([id number]) US/US breast LT limited: Mass overlapping multiple [...] grounds. Impression dictated by: Adalberto Lanza Jr., D.O.10/30/2022 4:09 PM Dictation Location: [facility] Transcribed By: VALERIE 10/30/22 1609 Dictated By: Adalberto Lanza Jr, DO 10/30/22 1608 Signed By: 10/30/22 1609 Normal [facility] Albumin [Mass/volume] in Ser um or PlasmaOrdered By: Bentley Lucero on 10-09-2022 Albumin [Mass/Vol] 4.1 g/dL 3.2-5.5 [facility] Basophils Auto (Bld) [#/Vol] Ordered By: Bentley Lucero on 10-09-2022 Basophils (Bld) [#/Vol] 0.0 10*3/uL 0.0-0.2 [facility] Basophils/100 WBC Auto (Bld) Ordered By: Bentley Lucero on 10-09-2022 Basophils/100 WBC (Bld) 0.8 % . [facility] CT biopsyOrdered By: Bentley carcamo on 10-09-2022 Transferrin [Mass/Vol] 291 mg/dL 180-380 [facility] Complete Blood Count Auto Di ffon 10-09-2022 Basophils (Bld) [#/Vol] 0.0 10*3/uL Normal 0.0-0.2 [facility] Comment on above: Order Comment: Reaso n for Exam Iron deficiency Result Comment: PERF ORMED BY: [facility] [address] [facility] [place] [address] PATHOLOGIST ANODE BUILDER PRICE ZUNIGA M.D. Performed By: #### C BC, CMP, [id number], FE and TIBC ####[address] Basophils/100 WBC (Bld) 0.8 % Normal . [facility] Comment on above: Order Comment: Reaso n for Exam Iron deficiency Performed By: #### C BC, CMP, [id number], FE and TIBC ####[place] [id number] [facility] Eosinophils (Bld) [#/Vol] 0.1 10*3/uL Normal 0.0-0.45 [facility] Comment on above: Order Comment: Reaso n for Exam Iron deficiency Performed By: #### C BC, CMP, [id number], FE and TIBC ####[place] [id number] [facility] Eosinophils/100 WBC (Bld) 1.3 % Normal . [facility] Comment on above: Order Comment: Reaso n for Exam Iron deficiency Performed By: #### C BC, CMP, [id number], FE and TIBC ####[place] [id number] [facility] Erythrocyte distribution width (RBC) [Ratio] 13.8 % Normal 11.9-15.3 [facility] Comment on above: Order Comment: Reaso n for Exam Iron deficiency Performed By: #### C BC, CMP, [id number], FE and TIBC ####[address] Hematocrit (Bld) [Volume fraction] 39.3 % Normal 34.0-46.4 [facility] Comment on above: Order Comment: Reaso n for Exam Iron deficiency Performed By: #### C BC, CMP, [id number], FE and TIBC ####[address] Hemoglobin (Bld) [Mass/Vol] 12.9 g/dL Normal 11.8-15.4 [facility] Comment on above: Order Comment: Reaso n for Exam Iron deficiency Performed By: #### C BC, CMP, [id number], FE and TIBC ####[address] Lymphocytes (Bld) [#/Vol] 2.5 10*3/uL Normal 1.00-4.8 [facility] Comment on above: Order Comment: Reaso n for Exam Iron deficiency Performed By: #### C BC, CMP, [id number], FE and TIBC ####[address] Lymphocytes/100 WBC (Bld) 44.5 % Normal . [facility] Comment on above: Order Comment: Reaso n for Exam Iron deficiency Performed By: #### C BC, CMP, [id number], FE and TIBC ####[address] MCH (RBC) [Entitic mass] 26.2 pg Normal 24.7-34.3 [facility] Comment on above: Order Comment: Reaso n for Exam Iron deficiency Performed By: #### C BC, CMP, [id number], FE and TIBC ####[address] MCV (RBC) [Entitic vol] 80.1 fL Normal 80-100 [facility] Comment on above: Order Comment: Reaso n for Exam Iron deficiency Performed By: #### C BC, CMP, [id number], FE and TIBC ####[address] Mean Corpuscular HGB Conc 32.7 g/dL Normal 32.0-35.0 [facility] Comment on above: Order Comment: Reaso n for Exam Iron deficiency Performed By: #### C BC, CMP, [id number], FE and TIBC ####[address] Monocytes (Bld) [#/Vol] 0.4 10*3/uL Normal 0.0-0.8 [facility] Comment on above: Order Comment: Reaso n for Exam Iron deficiency Performed By: #### C BC, CMP, [id number], FE and TIBC ####[address] Monocytes/100 WBC (Bld) 6.5 % Normal . [facility] Comment on above: Order Comment: Reaso n for Exam Iron deficiency Performed By: #### C BC, CMP, [id number], FE and TIBC ####[address] Neutrophils (Bld) [#/Vol] 2.6 10*3/uL Normal 1.8-7.7 [facility] Comment on above: Order Comment: Reaso n for Exam Iron deficiency Performed By: #### C BC, CMP, [id number], FE and TIBC ####[address] Neutrophils/100 WBC (Bld) 46.9 % Normal . [facility] Comment on above: Order Comment: Reaso n for Exam Iron deficiency Performed By: #### C BC, CMP, [id number], FE and TIBC ####[address] NRBC% 0.2 /100{WBC} Normal 0-0.5 [facility] Comment on above: Order Comment: Reaso n for Exam Iron deficiency Performed By: #### C BC, CMP, [id number], FE and TIBC ####[address] Platelet mean volume (Bld) [Entitic vol] 9.2 fL Normal 6.3-10.7 [facility] Comment on above: Order Comment: Reaso n for Exam Iron deficiency Performed By: #### C BC, CMP, [id number], FE and TIBC ####[place] [id number] [facility] Platelets (Bld) [#/Vol] 263 10*3/uL Normal 150-450 [facility] Comment on above: Order Comment: Reaso n for Exam Iron deficiency Performed By: #### C BC, CMP, [id number], FE and TIBC ####[place] [id number] [facility] RBC (Bld) [#/Vol] 4.91 10*6/uL Normal 3.60-5.00 [facility] Comment on above: Order Comment: Reaso n for Exam Iron deficiency Performed By: #### C BC, CMP, [id number], FE and TIBC ####[place] [id number] [facility] WBC (Bld) [#/Vol] 5.5 10*3/uL Normal 3.8-11.6 [facility] Comment on above: Order Comment: Reaso n for Exam Iron deficiency Performed By: #### C BC, CMP, [id number], FE and TIBC ####[place] [id number] [facility] Comprehensive Metabolic Pane adam 10-09-2022 Albumin [Mass/Vol] 4.1 g/dL Normal 3.2-5.5 [facility] Comment on above: Order Comment: Reaso n for Exam Iron deficiency Reason for Exam Vitamin D deficiency Performed By: #### C BC, CMP, [id number], FE and TIBC ####[place] [id number] [place] Albumin/Globulin [Mass ratio] 1.5 {ratio} Normal [facility] Comment on above: Order Comment: Reaso n for Exam Iron deficiency Reason for Exam Vitamin D deficiency Performed By: #### C BC, CMP, [id number], FE and TIBC ####[place] [id number] [place] [address] [facility] ALP [Catalytic activity/Vol] 47 U/L Normal 32-92 [facility] Comment on above: Order Comment: Reaso n for Exam Iron deficiency Reason for Exam Vitamin D deficiency Performed By: #### C BC, CMP, [id number], FE and TIBC ####[place] [address] [address] [place] [address] [facility] ALT [Catalytic activity/Vol] 18 U/L Normal 10-60 [facility] Comment on above: Order Comment: Reaso n for Exam Iron deficiency Reason for Exam Vitamin D deficiency Performed By: #### C BC, CMP, [id number], FE and TIBC ####[place] [id number] [facility] Anion gap [Moles/Vol] 11.7 mmol/L Normal 6.0-15.0 [facility] Comment on above: Order Comment: Reaso n for Exam Iron deficiency Reason for Exam Vitamin D deficiency Performed By: #### C BC, CMP, [id number], FE and TIBC ####[address] [address] [facility] AST [Catalytic activity/Vol] 19 U/L Normal 10-42 [facility] Comment on above: Order Comment: Reaso n for Exam Iron deficiency Reason for Exam Vitamin D deficiency Performed By: #### C BC, CMP, [id number], FE and TIBC ####[place] [id number] [facility] Bilirubin [Mass/Vol] 0.6 mg/dL Normal 0.3-1.2 [facility] Comment on above: Order Comment: Reaso n for Exam Iron deficiency Reason for Exam Vitamin D deficiency Performed By: #### C BC, CMP, [id number], FE and TIBC ####[address] [address] [facility] Calcium [Mass/Vol] 9.1 mg/dL Normal 8.2-10.2 [facility] Comment on above: Order Comment: Reaso n for Exam Iron deficiency Reason for Exam Vitamin D deficiency Performed By: #### C BC, CMP, [id number], FE and TIBC ####[address] [address] [facility] Chloride [Moles/Vol] 106 mmol/L Normal 95-114 [facility] Comment on above: Order Comment: Reaso n for Exam Iron deficiency Reason for Exam Vitamin D deficiency Performed By: #### C BC, CMP, [id number], FE and TIBC ####[address] [address] [facility] CO2 [Moles/Vol] 23.6 mmol/L Normal 22.0-30.0 [facility] Comment on above: Order Comment: Reaso n for Exam Iron deficiency Reason for Exam Vitamin D deficiency Performed By: #### C BC, CMP, [id number], FE and TIBC ####[address] [address] [facility] Creatinine [Mass/Vol] 0.75 mg/dL Normal 0.44-1.03 [facility] Comment on above: Order Comment: Reaso n for Exam Iron deficiency Reason for Exam Vitamin D deficiency Performed By: #### C BC, CMP, [id number], FE and TIBC ####[address] [address] [facility] Estimated GFR ( Edith > 60 [facility] Comment on above: Order Comment: Reaso n for Exam Iron deficiency Reason for Exam Vitamin D deficiency Result Comment: GFR estimated reference range: According to KDOQI guidelines, <60 ml/min/1.73m2 is sufficient to diagnose a patient with chronic kidney disease. Performed By: #### C BC, CMP, [id number], FE and TIBC ####[address] [address] [facility] Estimated GFR (Non- Am > 60 [facility] Comment on above: Order Comment: Reaso n for Exam Iron deficiency Reason for Exam Vitamin D deficiency Performed By: #### C BC, CMP, [id number], FE and TIBC ####[place] [address] [place] [address] [facility] Globulin (S) [Mass/Vol] 2.8 g/dL Normal [facility] Comment on above: Order Comment: Reaso n for Exam Iron deficiency Reason for Exam Vitamin D deficiency Performed By: #### C BC, CMP, [id number], FE and TIBC ####[address] [address] [facility] Glucose [Mass/Vol] 90 mg/dL Normal 70-100 [facility] Comment on above: Order Comment: Reaso n for Exam Iron deficiency Reason for Exam Vitamin D deficiency Result Comment: [place] Glucose Reference Range is dependent on time and content of last meal. Glucose of more than 200 mg/dL in a nonstressed, ambulatory subject supports the diagnosis of Diabetes Mellitus. ADA recommended reference range Performed By: #### C BC, CMP, [id number], FE and TIBC ####[address] [address] [facility] Potassium [Moles/Vol] 4.3 mmol/L Normal 3.5-5.1 [facility] Comment on above: Order Comment: Reaso n for Exam Iron deficiency Reason for Exam Vitamin D deficiency Performed By: #### C BC, CMP, [id number], FE and TIBC ####[address] [address] [facility] Protein [Mass/Vol] 6.9 g/dL Normal 6.1-7.9 [facility] Comment on above: Order Comment: Reaso n for Exam Iron deficiency Reason for Exam Vitamin D deficiency Performed By: #### C BC, CMP, [id number], FE and TIBC ####[address] [address] [facility] Sodium [Moles/Vol] 137 mmol/L Normal 136-146 [facility] Comment on above: Order Comment: Reaso n for Exam Iron deficiency Reason for Exam Vitamin D deficiency Performed By: #### C BC, CMP, [id number], FE and TIBC ####[facility] [id number] [place] [address] [facility] Urea nitrogen [Mass/Vol] 11 mg/dL Normal 9-23 [facility] Comment on above: Order Comment: Reaso n for Exam Iron deficiency Reason for Exam Vitamin D deficiency Performed By: #### C BC, CMP, [id number], FE and TIBC ####[facility] [id number] [place] [id number] [facility] Creatinine and Glomerular fi ltration rate.predicted panel (S/P/Bld)Ordered By: Bentley Lucero on 10-09-2022 Creatinine [Mass/Vol] 0.75 mg/dL 0.44-1.03 [facility] Eosinophils Auto (Bld) [#/Vo l]Ordered By: Bentley Lucero on 10-09-2022 Eosinophils (Bld) [#/Vol] 0.1 10*3/uL 0.0-0.45 [facility] Eosinophils/100 WBC Auto (Bl d)Ordered By: Bentley Lucero on 10-09-2022 Eosinophils/100 WBC (Bld) 1.3 % . [facility] Erythrocyte distribution wid th Auto (RBC) [Ratio]Ordered By: Bentley Lucero on 10-09-2022 Erythrocyte distribution width (RBC) [Ratio] 13.8 % 11.9-15.3 [facility] Estimated glomerular filtrat ion rate (GFR) non- AmericanOrdered By: Bentley Lucero on 10-09-2022 GFR/1.73 sq M.predicted among non-blacks MDRD (S/P/Bld) [Vol rate/Area] > 60 mL/Min [facility] Globulin Calc (S) [Mass/Vol] Ordered By: Bentley Lucero on 10-09-2022 Globulin (S) [Mass/Vol] 2.8 g/dL [facility] Hematocrit Auto (Bld) [Volum e fraction]Ordered By: Bentley Lucero on 10-09-2022 Hematocrit (Bld) [Volume fraction] 39.3 % 34.0-46.4 [facility] Hemoglobin [Mass/volume] in BloodOrdered By: Bentley Lucero on 10-09-2022 Hemoglobin (Bld) [Mass/Vol] 12.9 g/dL 11.8-15.4 [facility] Iron [Mass/volume] in Serum or PlasmaOrdered By: Bentley Lucero on 10-09-2022 Iron [Mass/Vol] 112 ug/dL 40-150 [facility] Iron and TIBC Profileon 09-15 % Iron Saturation 27.5 % Normal 20-50 [facility] Comment on above: Order Comment: Reaso n for Exam Iron deficiency Reason for Exam Vitamin D deficiency Performed By: #### C BC, CMP, [id number], FE and TIBC ####[address] [address] [place] [address] [facility] Iron [Mass/Vol] 112 ug/dL Normal 40-150 [facility] Comment on above: Order Comment: Reaso n for Exam Iron deficiency Reason for Exam Vitamin D deficiency Performed By: #### C BC, CMP, [id number], FE and TIBC ####[address] [address] [facility] Total Iron Binding Capacity 407 ug/dL Normal 255-450 [facility] Comment on above: Order Comment: Reaso n for Exam Iron deficiency Reason for Exam Vitamin D deficiency Performed By: #### C BC, CMP, [id number], FE and TIBC ####[place] [address] [place] [address] [facility] Transferrin [Mass/Vol] 291 mg/dL Normal 180-380 [facility] Comment on above: Order Comment: Reaso n for Exam Iron deficiency Reason for Exam Vitamin D deficiency Performed By: #### C BC, CMP, [id number], FE and TIBC ####[address] [address] [facility] Iron binding capacity [Mass/ volume] in Serum or PlasmaOrdered By: Bentley Lucero on 10-09-2022 Iron binding capacity [Mass/Vol] 407 ug/dL 255-450 [facility] Iron saturation [Mass Fracti on] in Serum or PlasmaOrdered By: Bentley Lucero on 10-09-2022 Iron saturation [Mass fraction] 27.5 % 20-50 [facility] Leukocytes [#/volume] correc flavio for nucleated erythrocytes in Blood by Automated counOrdered By: Bentley Lucero on 10-09-2022 WBC corrected for nucl RBC Auto (Bld) [#/Vol] 5.5 10*3/uL 3.8-11.6 [facility] Lymphocytes Auto (Bld) [#/Vo l]Ordered By: Bentley Lucero on 10-09-2022 Lymphocytes (Bld) [#/Vol] 2.5 10*3/uL 1.00-4.8 [facility] Lymphocytes/100 WBC Auto (Bl d)Ordered By: Bentley Lucero on 10-09-2022 Lymphocytes/100 WBC (Bld) 44.5 % . [facility] MCH Auto (RBC) [Entitic mass ]Ordered By: Bentley Lucero on 10-09-2022 MCH (RBC) [Entitic mass] 26.2 pg 24.7-34.3 [facility] MCHC Auto (RBC) [Mass/Vol]Or dered By: Bentley Lucero on 10-09-2022 MCHC (RBC) [Mass/Vol] 32.7 g/dL 32.0-35.0 [facility] MCV Auto (RBC) [Entitic vol] Ordered By: Bentley Lucero on 10-09-2022 MCV (RBC) [Entitic vol] 80.1 fL 80-100 [facility] Monocytes Auto (Bld) [#/Vol] Ordered By: Bentley Lucero on 10-09-2022 Monocytes (Bld) [#/Vol] 0.4 10*3/uL 0.0-0.8 [facility] Monocytes/100 WBC Auto (Bld) Ordered By: Bentley Lucero on 10-09-2022 Monocytes/100 WBC (Bld) 6.5 % . [facility] Neutrophils Auto (Bld) [#/Vo l]Ordered By: Bentley uLcero on 10-09-2022 Neutrophils (Bld) [#/Vol] 2.6 10*3/uL 1.8-7.7 [facility] Neutrophils/100 WBC Auto (Bl d)Ordered By: Bentley Lucero on 10-09-2022 Neutrophils/100 WBC (Bld) 46.9 % . [facility] No Panel InformationOrdered By: Bentley Lucero on 10-09-2022 25-Hydroxy Vitamin D Total 15.6 ng/mL 30-100 [facility] Comment on above: VITAMIN D STATUS 25( [place])VITAMIN D RANGE (ng/mL) Deficient <20 Insufficient 20 to <30Sufficient 30 to 100Reference: Joe MF,Briana NC, Brenton VARGAS, et al. Evaluation,treatment, and prevention of vitamin D deficiency; an Endocrine Society clinical practice guideline. JCEM. 2010; 96(7):1911-30. Estimated GFR () > 60 mL/Min [facility] Comment on above: GFR estimated refere nce range: According to KDOQI guidelines, <60 ml/min/1.73m2 is sufficient to diagnose a patient with chronic kidney disease. Pharmacy Creatinine Clearance (Chem N/A [facility] Nucleated erythrocytes [Pres ence] in Blood by Automated countOrdered By: Bentley Lucero on 10-09-2022 Nucleated RBC Auto Ql (Bld) 0.2 /100{WBC} 0-0.5 [facility] Platelet mean volume Auto (B ld) [Entitic vol]Ordered By: Bentley Lucero on 10-09-2022 Platelet mean volume (Bld) [Entitic vol] 9.2 fL 6.3-10.7 [facility] Platelets Auto (Bld) [#/Vol] Ordered By: Bentley Lucero on 10-09-2022 Platelets (Bld) [#/Vol] 263 10*3/uL 150-450 [facility] Protein [Mass/volume] in Ser um or PlasmaOrdered By: Bentley Lucero on 10-09-2022 Protein [Mass/Vol] 6.9 g/dL 6.1-7.9 [facility] RBC Auto (Bld) [#/Vol]Ordere d By: Bentley Lucero on 10-09-2022 RBC (Bld) [#/Vol] 4.91 10*6/uL 3.60-5.00 [facility] Serum or plasma alanine bedoya otransferase measurement without P-5'-P (enzymatic activiOrdered By: Bentley Lucero on 10-09-2022 ALT No additional P-5'-P [Catalytic activity/Vol] 18 U/L 10-60 [facility] Serum or plasma albumin/glob ulin mass ratioOrdered By: Bentley Lucero on 10-09-2022 Albumin/Globulin [Mass ratio] 1.5 {ratio} [facility] Serum or plasma alkaline diaz sphatase measurement (enzymatic activity/volume)Ordered By: Bentley Lucero on 10-09-2022 ALP [Catalytic activity/Vol] 47 U/L 32-92 [facility] Serum or plasma anion gap de terminationOrdered By: Bentley Lucero on 10-09-2022 Anion gap [Moles/Vol] 11.7 mmol/L 6.0-15.0 [facility] Serum or plasma aspartate am inotransferase measurement (enzymatic activity/volume)Ordered By: Bentley Lucero on 10-09-2022 AST [Catalytic activity/Vol] 19 U/L 10-42 [facility] Serum or plasma calcium jose urement (mass/volume)Ordered By: Bentley Lucero on 10-09-2022 Calcium [Mass/Vol] 9.1 mg/dL 8.2-10.2 [facility] Serum or plasma chloride yobany surement (moles/volume)Ordered By: Bentley Lucero on 10-09-2022 Chloride [Moles/Vol] 106 mmol/L 95-114 [facility] Serum or plasma glucose jose urement (mass/volume)Ordered By: Bentley Lucero on 10-09-2022 Glucose [Mass/Vol] 90 mg/dL 70-100 [facility] Comment on above: ADA recommended refe rence rangeRandom Glucose Reference Range is dependent on time and content of last meal. Glucose of more than 200 mg/dL in a nonstressed, ambulatory subject supports the diagnosis of Diabetes Mellitus. Serum or plasma potassium me asurement (moles/volume)Ordered By: Bentley Lucero on 10-09-2022 Potassium [Moles/Vol] 4.3 mmol/L 3.5-5.1 [facility] Serum or plasma sodium measu rement (moles/volume)Ordered By: Bentley Lucero on 10-09-2022 Sodium [Moles/Vol] 137 mmol/L 136-146 [facility] Serum or plasma total biliru bin measurement (mass/volume)Ordered By: Bentley Lucero on 10-09-2022 Bilirubin [Mass/Vol] 0.6 mg/dL 0.3-1.2 [facility] Serum or plasma total carbon dioxide measurement (moles/volume)Ordered By: Bentley Lucero on 10-09-2022 CO2 [Moles/Vol] 23.6 mmol/L 22.0-30.0 [facility] Serum or plasma urea nitroge n measurement (mass/volume)Ordered By: Bentley Lucero on 10-09-2022 Urea nitrogen [Mass/Vol] 11 mg/dL 9-23 [facility] Vitamin D 25 Hydroxy Totalon 10-09-2022 Vitamin D 25 Hydroxy Total 15.6 ng/mL Low 30-100 [facility] Comment on above: Order Comment: [...] practice guideline. JCEM. 2010; 96(7):1911-30. PERFORMED BY: [facility] [address] [place] [address] PATHOLOGIST ANODE BUILDER PRICE ZUNIGA M.D. Performed By: #### C BC, CMP, [id number], FE and TIBC ####[facility] [id number] [place] [address] [facility] WBC Auto (Bld) [#/Vol]Ordere d By: Bentley Lucero on 10-09-2022 WBC (Bld) [#/Vol] 5.5 10*3/uL 3.8-11.6 [facility] XR LSPINE 2_3 VIEWSon 2022 XR LSPINE [...] VANESSA JEREZ Date: 2022-10-08 12:48 Normal [facility] ED Note-Physicianon 09-06-20 ED Note-Physician Basic [...] has bronchitis. Patient is deaf and an general cargo clerk is used throughout the encounter. Review of [...] is afebrile. Patient is deaf, so an general cargo clerk is used throughout the encounter. She denies [...] BENTLEY LUCERO In 3 days 09/01/2022 EST [address] [place] [address]- [facility] (1) Additional Instructions: Follow-up with your primary care provider in 3 to 5 days. If symptoms worsen, do not improve, or new symptoms arise please report back to emergency department for further evaluation. Patient Education Acute Bronchitis, Adult Attestation Patient seen and evaluated by the physician psychiatric technician assistant. Attending physician was present in the emergency department and supervised care. This visit was performed by both the physician and an APC. I performed all aspects of the MDM as documented. This report was transcribed using voice recognition software. Every effort was made to ensure accuracy, however, inadvertently computerized press writer mistakes may be present. Appropriate healthcare PPE [...] Tab, 25 (more content not included)... Normal [facility] Comment on above: Result Comment: Elec tronically Signed By: Ron James PA-C\.br\Date and Time Signed: 08/29/22 18:33 EST\.br\Electronically Co-Signed By: Kristopher Clemons DO\.br\Date and Time Co-Signed: 09/06/22 07:00 EST Coding Summary.on 09-02-2022 Coding Summary. [id number] Gh 0bWw+PGhlYWQ+BM8RJNPkF 48nlKRzlD3MC6jOPC7EWKN FIXRCAK0MLY1nrTN4FCwrD 2VybiAv MibzdGJjNB45JVl5RPG9nZ vmGZafeR4jfNYoU1l5ZoOo JY01jJ44FIgiGBDxZoC1Dm ZpbjsgbWFy G5hjIuZwhWMiOis+PHRhYm xlIHdpZHRoPScxMDAlJyBz eMcxKD1oKz5uTYLoKEKdvH xhcHNlOiBj j1ovTDNvMQohHM2snZuaJ9 XbwPB3TXNfs6c2Ie12sCU+ IIBgLNF4sHpvEGgzu016Mh Wdy0tfHMF0 gSQjHKzkSVV6Q30tk9V2RC YzYEUxHVS5eEV3bR2cuLwf qnbxS4PkkYLvSeV5UPF9rY SnuC9agUfh wmtmqL3wZvd+F91GSM4YHJ FPCU5LGfe9L3TuDvnnmJQ+ HW25WYWiET20pPSolVXnk2 jupEi6KiTd NJJtKIH4lUxqCJaxn6GkSK ReC89pjYWfx5S9TQZxwMyv rULxOtVjyMJ9eJ9qKSkbuo nwu5ivxafk Wwynq7upbd06oF06N40qBE ypWSClGFQ7LCDxWVQnzIbu sx4caN2gKh2+OUfss9ozo5 lsvZs3IkXc OYRhlqYewRxpXSU4y7WzLx 04H8CjtFhdr7AgIzs7fh10 aAZiv3L7qJB3BLfmYORkcB 4qCFwiGzF3 WBItLwGukN45sLAyQZebFu 5evRgtlCwdGE7fRLFzpdft FTXdzT7iRGQbaYKycEtgEG 4wNTBpbjtm w996CbNwPXA4LNHoaZCvY6 TjmP3gKdWqKEPsDXKbV0Oe kSCnHPpxO800CChaVqA5PL SdiyKnF4Of OJAkaMkeQrY3y0N0Ep4Zv9 WykjhhMBO0CVvqVLVdNgDp ZnDpNwY3R8FlHvv9PEFfiJ hrQF7sL3Eh QPMgjyabstdicLD4ZGPwWL ZntK62xPXdONhoXu9gi0O2 u083JCUfIEOpfO76Rj0auU ogMTBwdCBU xA5qtsjoo5isuqntZmVuUF JhYIy6TTf3LJNmlGliVkQe DLJ4YxR0SVS9uGZvoU9ncT bflqjdnP2o Oyc+Y53riR0qQVX6VJQ9ri ypJVIntmZyJV73FG94M1In PjwvdGFibGU+PGRpdiBzdH zvEJ9gIzHw t9uiu0JjPYxjW3UvBMQzEJ jsUnr8FLJkAVU3cQH6bJ1v FQQwSDpxz0T1vHM9V1Bhzz Pozc2ys5ym XYDyBIctP53vmSJtp4Q0UA CydGH5TNWncAxjXzPmgL46 Oyc+UFPdtYrvz8BaIdmpu9 bqv2ynsQu3 ApHxUVFqqbTudJoaZOU3z1 HvZo00X82wKLtbETHbAPBy AQBpAEYxzEbram8pjZ1bUd 8+PGNvbCB3 cUI0tD8dJAEhIzB4ERweF4 71ErQnmKXeTlszm1qur1qw jBd9PzIrXDEyfoLrxZtfKE E8c9UjWd08 D60zFYvsHFOdTIZbEAGpVZ PbcHjjtd9pkB8bBi9+PC9j q3fzez28oA42wSU+PHRkIH D8dDrgMSqp WDPljF8fHQjdMsD6YIAoMi MzbS56gMSiAGzlSb9ydOby dAeuLW8mFHIigcrft423Gt Ksq9enSRRb oHExFKazCRL6S42zs6Y1XZ XtLLLvMYH1xOS0hD8osZay bjogbGVmdDsgdmVydGljYW oaCAynI063 IHRvcDsnPlBhdGllbnQgTm DeZSw0R6HsRbj1AEXieCck MM5yoVVjFLhzLl4qaLbxvK rmWR7tPBMw msigs468AnTri8puKTUahQ AbDBxnVVG8Z27ov2J8ITOw JASqDQB4zTF0eG0kdHwdlo ogbGVmdDsg cqGirNeeLUguZWycA847JL RvcDsnPkJpcnRoIERhdGU6 XP53PQ65fOKal4J9tJD1N4 BhZGRpbmct bltxqVP4SOAsHNYvnI76Vp 2rjFjiFy0bLVGnCRM2YVKn eHDzP7JykO1oNuYhTKJiHP GfT8QhfGRo AMtjU494HTupXiO8CCTpir EmO2TmSAKmhSffDcF5y9G4 Vk7WA4J9DW41QF10nROqy5 E4rHO7I3Zw QUKgqwbbzeafeAX5RXFaLA ZvmG98En3wpCxdPf8rIVEx ILO8WAHhvNUeI7KznY8aOf AjMDAwMDAw N1MqiOJqVNieI635DMquNv L0EGVzgjPzE0TlCVKvbQsn ZdG7z6E9Ku9HCPk7LC23BH 63eEDxd6M7 bNI2W5GnWPKtlkwthyqgmL Z3AAEuSALleK63Ep1reWbj Vo5mUKTpJON6DYApkJFqZ3 GihR6iAiBy BYWvWJTvO6VqsSKtEQtaT0 32BXmuTwJ9WJCzkdSvZ7Eb TFVuyUmiRcH7b9H3Ed4MLA GfOM17NTM7 eGK2YS81AZ31P0OzZwjwcG FibGU+PHRhYmxlIHdpZHRo DSkbTFEzXgWddFhiGJ8rCd 9yZGVyLWNv lLqnbCGkZoTbp4cdZVAsNJ bxYH5qlThbW9GcwEE7YNTy n4m7Ij32P42wF3FurKD+PG FuyKA6xBN9 vH8hCeVdAaX4OCdkR994Dd OolDReYshbr8gqv2kxsJp2 EwC3UJSmrnQlcPqfDRG8i9 KfZh20J81p IHdpZHRoPSIxNSUiIHZhbG qcwi5hhZ6dSy5+PGNvbCB3 wEV1kC1kHbTjIjH8AIhyB8 49InRvcCIv Ervju5zmu6srgNs7TyEvAZ BaitSakZibMHD4r5ZtKf56 A4RarPrff7TfUou0oa70bK Zmq0M2dST0 M3PxLTThxcmxnEYnlHgwWT 8yZVAnhxblOELtoE7vZKPn E3d2AjEzEgE5TDfsU3Quzx A3OGOnkFHu DCzhMLM8N74ot3K0ZVTaGQ IoBIT5yFM6kD7tzUffdpvb bGVmdDsgdmVydGljYWwtYW ypK011NITx xPpfTDXajW6iAGQrjZToyG ahVX0aPOLfckvuXhvWMKof IEpBREEgTTwvdGQ+PHRkIH N0yJheRXhj PMMieE7zASXrP9l7CnTmSg K5BOwlJ1GpKVBrbdaqHr78 cG7gBmUwGuQ1OUklJ2Jroi T6FTCcsKEs VFeuBMU5U37fl5J7LOMsGR PgDKS7qGF6qP5iyXxpdzdd bGVmdDsgdmVydGljYWwtYW dzX436NIPp zKnkFrJ7JnT6VrW5FPV2B0 KcBxp6IRXdtNfbGF4auDUb HZvaUq6qkMfclXndGO5wVX BpbjtwYWRk gW7wCCOznPCzwHkiWI0mIG Ywjffeo433OvOsDAZ5XTDl mXRaE2YfbT3aXmNoYWRwFM OiO7WjdRZs COqeQ609CAxoAxS1MJDdlu GqJ1PcHTOzhNskPnJ5r2D6 Br2lTOBPRFKcbbicyJU+PH CcGMI4eQrl PPdwMTNlxZ9vTSXwZ2f2Ny DfKlW0JYcbE8VlPHDbkwan Nh67lW8lScJcRuQ9LFdqX3 YztqO5EWVz wTMjSVeyCKE8W29kz7Y5YO ObCMRlHOZ0dBI4dU8fmQvd bjogbGVmdDsgdmVydGljYW idNTkaG337 IHRvcDsnPkZlbWFsZTwvdG Q+DYJnSYF5dCauYHucNKUd yR4hJNTxA9o5IcUcTlS3WN etH8KzWFKc sqmzRs27fH0rSpKrJbR4BW ohT4ArpjP1CBXyhRCyVCgb UCA9Q77pk9A1YPPhSNIbWA T1fHJ7cG0r bGlnbjogbGVmdDsgdmVydG brNCzaLAjhZ895GUYqxTcu UjIyVYFdNA7lfLnudLS+PC 56lx77X9Aj VxyqShp3ETPvFRP9lRC6dG 2aWGKjZKypu7Q6rFX0W3Ys xuJasq3qr2jiBKPwREguI5 4roXWxn1T5 VGJogVZ6JFQtxKpvGuWyfX 93Oyc+WACuaHmdf7RsZtrg v6xdu7nmbDl3DdYpPEPeci FsaWduPSJ0 b1MkQo84B59gKBraEIGvNC TmCSVlZRCxlUeavn0zzV0g Ii8+EQQlcYI2iDW4yB3cGo MiEhE3BLey L698NjDntBTgImtot9tnv7 thjWo6ZoInCEJijfEzgNqj NDA0f5MvHg78T9JgtOoqk6 TlGwf1ri85 mUGjh3Q9sOE5O6PvZLDgbp zxnXSguXqrVF1eBJXnykry WWEvnS0jIYZjS6f8UmOfQq U2ZIssP2Nx ihE3XFRgbEMaWNXkiNZEhU 4rftccj9sloagbUqZgEERd TLa4CYl8BMHpyVelJfOeJE A1BuF0WGC9 cFEahF5xjBhigmqruQ6nMd c+ZZe6m4rdtOObBV0fgKT4 OP22CX92aIHkn4Y8eJM1U3 BhZGRpbmct cugwaZN9MROlPAKlhL63Pa 2dlAtsVm1tSSUrYUJ0GQYn rTQsY2XfpQ7sYiJjYVTpKC WiM7DrqPCp BLumN451VQvpGaC6FIRocl OeE6GbCWNhiCudWnP7r2I5 Xk2TFO25MG29WT11fJOtz3 G6lWS9L6Zw UVVgcgmxdnlugGX9IDOwRS XneB54Xv2xzJxsVd3tKJYt HKO1QXNcnMSzI3XlyE1bNa AjMDAwMDAw W3BgoPGwCZfiQ738VBtkXv C0YETtbmNsT2AhPTWokGvt HbX4p4Z1Zc0LNy84XG74YZ 85sPNfy1T5 wKV3X1UzIZPrmvugyakpdS E8VJBeCNVzeK03Tp0msBtp Jx6zMTFzNWK0NMLsfCScQ4 PglI3jXpHw XVPxGWMzP2AtqRMmJAmxK8 17ZNohVbY8RGDozjJqW0Ki AWYhuTytHfK8w0R9Ml5EYA zqswh2H2Vy PjwvdHI+TT95UAMsKX19yM XuwCRqc0svjGt8NvDbNBOh JZG0zNavPMhcm0TaXFGkA4 3uhRClj6T0 IGNv (more content not included)... Normal [facility] Coding Summary. CD:[id number] Gh 0bWw+PGhlYWQ+KF0NJNWjA 50jgTKqqX3DU5jLJS9KLZU OCMICWI0QEJ7fxYC2JNsyV 2VybiAv MgranKHoEY81IJl9DYV5pA suCQjfgA4dzROmQ0m2FwWb TO63eQ76TFbcJFAzNaU0Mv ZpbjsgbWFy Q9pxPeIteQWcHok+PHRhYm xlIHdpZHRoPScxMDAlJyBz yLyvWP7bHl1eKUKoDKIjpP xhcHNlOiBj o7oxOIDkQDxuMM0wtGheU4 DfwWS8NAEbe9u8Ub83zDP+ XOBjVPC0wPqiFLwks570Gz Pnk9zsTCQ2 hNApUVqgEIX6P15ar4Z2NQ PxUYGvTLL4oXS5eQ3zcMri zbbuS1IogEVrUpB1ASX8dS SmcJ0ynZge qtnanO8fIwx+W84RTM5TDX EOGY2ZEpx0I8OgZrdodJO+ CS69YPJnHC01fLVgqNJzo6 gpdSf7EuLh YODpLAS1zHntCKfop0KeJM ZvR20ttEVhq3O9KYAiuTeb sPJrRqQcxAP1aZ1kUPepna lbc2zrvwlq Eojwh7htjn60wN67O63cXQ pcOBWxDIA5LDZiQHLjyXnk wb0lyP8cGv7+AYteo1wil4 oucIh5YkRt YGPmkgDtePpuFXZ3b7IdNr 91L7MueSogg1JmOdi2fw22 xVZew6X0jPY5BZkhFDPqeI 4uTTklAqL3 UOHxYpJpzO71xKLkEHlsCe 0rgBjlgZckFR5pTHKxlvwo EBJbtX8iKTUjxAScvKriDX 4wNTBpbjtm q307AqAuBLI7RAXwdJZhM1 NaxN0dUuNfEDCzGYRsK5Lc cHXnPIrxF393VKzcJbE2GE SdyjOfT0Oe BREuhHsaYmY0g7R9Xl8Er9 WkdaapTXR7VQklZILmKqBo EuRwBwI6M9SnIpx3BPIhuA arVA3nD3Af JAWkulfythutcGW4ZSNsKP OchE10nUMrBIckTn8ws8Q9 p615ZOIiPBIhlI96De0vyX ogMTBwdCBU kS9poufhj2hyytvcBlVlPZ LrHQg7JUp3WQKecVjjShMq OGZ4YzU0KAK6rDNbdZ1wiG cglvmdqD9g Oyc+K74gaF7qEKB8SRM6wg cuLAXfrfSuJA16PD12Q2Fl PjwvdGFibGU+PGRpdiBzdH knER8qDrAc h9qva4AoHHhuE9NjODIeAT ztKlr2EKGuWVC0mZZ9vZ5w YPKyPNivv6H8hTK4U8Mydb Atyp8ao6tq UDXzFEhpJ29jpGCww2F1BP OojWT9BTOnlGahExCdbQ40 Oyc+DEWgcLkje0UkZeqkv1 iab0dsuBs4 VyQeHKUlglAwyJltSKU7n1 VrVn92B18mPBinIZDtXJHx HGDqWSHkoJugmu1pmE0aEt 8+PGNvbCB3 nKB7eC8xSFXcNuA6TVyvF5 54EmQpvQPgIkjoc6bst4np tDk4NoGmRMWtzaSeoTaiHD P0p3DtDf49 D72dQHuuORGsARQtHFGzZP EplBtisk0dnJ7xUa1+PC9j b3pign42lL04uPW+PHRkIH L5uYkyJQfi DCDlvS7tNZbzGeL5ECItGb VywD50oYXwFKckKa2kgHkk tOcuQT6sBMGympape629Fw Sov8avXUQt qUDcNWrrLFI8J62tt0B5TO ZbPZLoKZQ0sPV5aH4jaQru bjogbGVmdDsgdmVydGljYW djZLqzP148 IHRvcDsnPlBhdGllbnQgTm DgDCk5D1HpGdg3WRVfsJoq CF4irTMcWTtgTb7heJkrzU eiIL1xDPLs ajwhl850HhItp8yqXOLahW ObRAxqCUC7V41mc9I4ONGs YRCoYON2yQP5hP1nwBxxxh ogbGVmdDsg qcZevPgqYKftPGavQ846IR RvcDsnPkJpcnRoIERhdGU6 GQ08JN71jHIos7K6xXM4V0 BhZGRpbmct obzghYB3VOZlQGLwxN55Xk 8qyPtcQj7pDLTuQLK2INSh jICqO4LvkF5qLkHgKPUcXY ZnY8BeuBZz EFewJ922DRabQrI3VAPacv XhP5ZrQQVmzEcaGhG2v1Z7 Yi6QF2N8FN31DO99bYAgx5 J6hLZ6P7Py DNWmztcykypopHW2OOZmFF SlgG83Tu7yfHeyDx4eRRHb AJA2NNQkuOUuE6WpdY5vBy AjMDAwMDAw V8IazDMvFJuwI490ZKtuQo U4LDFufiZxK3LjRIVgoEvt ChG3n5G6Pp1TTXp6DQ09YE 57zKSvl5I7 nZS7C2GsGKXrsowvedgipU M1HUVpKRQuzT23Qu4ypWbn Yb6vXNVeKFL5LFWzoEKkA4 BvvM5zKiId ZCZmFAFdJ2IelNQmVGqxX7 28LWnhMbJ2EUMgvwDpO8Sf VBHasGlwOkZ0z2Z8Ps9KVM XhMQ44QWD3 hQZ7SA54RA28A3MxPixxaZ FibGU+PHRhYmxlIHdpZHRo XMzdLYNfUvKiyJypNI6bQx 9yZGVyLWNv aHasrHXcAcMxz7gnXATbAL jsHU5kuVhaX9XyaSE4ZEYb r1w1Sh80Y13jF9YlfBQ+PG ZeaTY1vAZ2 kG7aUjQsDaS8VCvoR231Ge GrsKXjJyzza2cvi6yjoVn5 XtU4EOOmuvXpwOotIVM1j4 SnJl75G78r IHdpZHRoPSIxNSUiIHZhbG qvwt7rrR3tZq9+PGNvbCB3 yTG7qF7pOdFsKzN9LVgpQ3 49InRvcCIv Oljvw4htx9vpjVy0QgFsNX DnwgMbpAzjINP2o6EeTt27 M1VpzQzsd0XfDpi3ry66xM Afl7C8hVF0 J3PaRIIdpjmpqLQnqOyzND 2wAGTajrsiCRKuaM9yAKEu B3n5SoOtJzC0KMrzD9Hdtp B2GPAefBMv FFzrTLI2G07dp8Q5KYGpAQ XbBJK1rFR8rA3voLxmzjer bGVmdDsgdmVydGljYWwtYW cxE866XKQe bUyxDEZkcG4lLPCjxCTzaX eiMC7uMRGvszkbRkdNEOln IEpBREEgTTwvdGQ+PHRkIH W6mJlkGOru NYUiiO6lESIpG8k8PvJkZx Q1WJvtR8LiCTDsnsylCl51 uQ8qTsOnVeV5GTwmE5Cuaq K9PNSquDKb ERvlTMX1Y92ns7V6MJLfZI ZjAGM8eRA4wK9ndLnpvehv bGVmdDsgdmVydGljYWwtYW eiV171EWHy rLybLuX2QbU1ShZ8YJU9O8 CzPxa7TONzhMhjYK9yrEOi XFpqFr4cfFvgwHqnPP8jLV BpbjtwYWRk dQ9eEXQcaYMqdBprHJ4sCC Ixuxpjb281BaZdWPC9WNFl gWGzH2UthW3sIcSvWOCwMF AhC1SraHFh SWfsT709FIokZpO5SADhji JpG6FaLQWlrXlhRuK9r5J4 Da3iZBOMMURuxlmlvEG+PH VfCAL0eKyj DJifMKBtiL1oXGAdR3i9Kw KwCwY1DLlkL8CbKQDnmupy Ie26rP8zHmZwDmU5KLxeZ7 ThpaJ7YCVl lHMbJZonPNW2L63cl3E1PW OnROOrUQY4lKU9jF6aoElt bjogbGVmdDsgdmVydGljYW mlYForX680 IHRvcDsnPkZlbWFsZTwvdG Q+MFAaCHJ3yCzyWTnfJLMx sH1zRZAmE9o1HlYzFxW3OL qbJ9ZwDDMf wtecNo79bM3jDpQaVlX9OU dkP2EbxiF5NCNyxSDkFBuo VAH5U31bz7L7EGFjHRRnRY F4ySL9nE5h bGlnbjogbGVmdDsgdmVydG xdGFsnSApyF951DDXfbXsv TcQuYFQrPZ2khZutjHR+PC 62co38U1Ra FgxkHsl7XULvBDB8zQJ6dZ 9nYUQgHOzoy3D9oIO2U7Pn trKber5rj1ffAVYmVSvcL5 6pdUJxy6Z0 JINneZE7JBYfzFldXeNsxY 93Oyc+WNAlvObsf9OlSywq d2nqv0nueEy2HkOiWNVoms FsaWduPSJ0 z7UpMd69N56bSPshJAAsTJ LkRRWvGXGqoTcxav2vuI4s Ii8+ASNzwZE3yPY0mP2yOs WnPgD8VWzu W922AzHyoRAjPbhmz4puq5 pydVu2SbUvJNKtqzBdtTxp LWX7q7MyKv71M9HxfFwgy0 VpDif1et30 rOFxm6Z5aGB3Z3MaYOTnqu hpdZEknXygBT4oOBAtjquc APOjzD2yZVJaC0i7OfFpZy S2CSpoS2Cl twQ6CDJcrJJkBYYezRVStA 3inragr5zzqwwdIhAaUXQe LMp1GRo9HZNnwTjsZlLbKD A6DaR9JWI0 jAYczE6jhQanjvxsiA1dEb c+AAd2o6xdrEGePA5xqPR1 TJ62KM40aDLox4K6iEP3A3 BhZGRpbmct nymmqVG1ZERpCWXjqU75Xv 5wlKmxFb4jKFZkSWY2RQDx rUWbI2TodJ7jCsWwAXSoCV PdT4DrpYVa DFcmB209WDcnIgV3BMDrdg ZqO2ZiMAAwgDnrHhF8j2I6 Qn1UNF82AT76WQ57wSLdu5 Q3vZJ4Q1Gr XTThwmujxhjqeHH4KWShUP NgdW07Ej4peLuaDw2nGJOc HYH6SEVroCMaG6IgwR7tZs AjMDAwMDAw Y6BkxJOiZAjjZ122RTebLu M2XGMoqwBlX7DuBCFavLgr YeO1g2Y1Qk0VKm85XV88BI 43nYWbs6B8 dRZ6P4WqXQEoyyhyxnuqyD X8HJPrSXNmnH02Li2ogNms Gi3qANFcNFD2DGUugWViT4 SpoA6dYlCa MFPlOKJvK8NnkBXcBLanJ4 00CHpcIrI6YQDfzhWfR4Cm SYQyzOjfUjE8o7V1Ka2WSF tpwjo7B8Xg PjwvdHI+ZL44QJHfCJ09nK PgyHIdk1jheQr1XlPrEJJn FCH6aSrxRTkuq3QyJYAbD3 0qnSAlq2U4 IGNv (more content not included)... Normal [facility] Consent for Treatmenton 08-14 Consent for Treatment [id number] Normal [facility] Discharge Instructionson Discharge Instructions [id number]. [id number]:127 Normal [facility] ED Clinical Summaryon 2021 ED Clinical Summary [place] [id number] ED Clinical Summary Person Information Name: LEENA INTERIANO [facility] Age: 32 Years : 1990 Sex: Female Language: Sign Language PCP: BENTLEY LUCERO CNP Marital Status: Phone: [phone] Visit Id: Visit Reason: Sinus Pain/Congestion; Cough; [...] 08/29/2022 18:32:51 08/29/2022 18:32:51 08/29/2022 18:32:51 ADDRESS: [address] [place] [address] [phone] [facility] DOC NOTES: MEDICAL INFORMATION: Prescriptions Given: New [...] With: Address: When: BENTLEY LUCERO [address] [place], [place] [id number] [employer] (1) In 3 days 09/01/2022 Comments: Follow-up with your primary care provider in 3 to 5 days. If symptoms worsen, do not improve, or new symptoms arise please report back to emergency department for further evaluation. DIAGNOSIS: Bronchitis Normal [facility] ED Patient Education Noteon 08-29-2022 ED [...] these instructions at home: Medicines ? Take tuxa-qnu-ftfkjkg and prescription medicines only as told by [...] and water are not available, use hand product steward. ? Avoid contact with people who have [...] 10/08/2005 Document Revised: 07/14/2019 Document Reviewed: 02/18/2017 [employer] Patient Education ? 2019 [employer] Normal [facility] ED Patient Summaryon 022 ED Patient Summary [address] [address] Patient Discharge Instructions Person Information Name: LEENA INTERIANO Age: 32 Years Arrival Date: 08/29/2022 17:23:21 Discharge Diagnosis: Bronchitis Primary Care Physician: BENTLEY LUCERO CNP Provider Information Primary Provider: Kristopher Clemons DO Advanced Breaker Operator:None The exam and treatment you received in the Emergency Department were for an urgent problem and are not intended as complete care. It is important that you follow up with a doctor, nurse practitioner, or physician?s psychiatric technician assistant for ongoing care. If your symptoms become worse or you do not improve as expected and you are unable to reach your usual health care provider, you should return to the Emergency Department. We are available 24 hours a day. GALIMILADYSDA Chiara has been given the following list of patient education materials, prescriptions and follow-up instructions: Follow-up Instructions: With: Address: When: BENTLEY LUCERO [address] [place] [address] Business (1) In 3 days [...] opioids can be used to help relieve mvhsyilh-qm-ycjhhz pain and are often prescribed following a [...] may be (more content not included)... Normal [facility] XR Chest 2 Viewson XR Chest [...] MD, V. Transcribed by: MARÍA ELENA Technologist: [facility] Normal [facility] Covid-19 PCR (CVDTBH)on SARS-CoV-2 (COVID-19) RNA PARI+probe Ql (Unsp spec) Not detected Normal NOT DETECTED [facility] Comment on above: Result Comment: When [...] for this test is supported by the [place] [place] of Health and Human Service's declaration that [...] longer be used). Performed By: #### C VDTBH #### [facility] [address] [place] [address] Dr. Samm Hurtado ER URINE PROFILEon 2 Bilirubin Ql (U) Negative Normal NEGATIVE [facility] Comment on above: Performed By: #### U MICRO, PREGU, ERUR #### [facility] [address] [place] [address] Dr. Samm Hurtado Clarity (U) CLEAR Normal CLEAR [facility] Comment on above: Performed By: #### U MICRO, PREGU, ERUR #### [facility] [address] [place] [address] Dr. Samm Hurtado Color (U) YELLOW Normal YELLOW [facility] Comment on above: Performed By: #### U MICRO, PREGU, ERUR #### [facility] [address] [place] [address] Dr. Samm MENDEZD A micrscopic examination will be performed if indicated. Normal [facility] Comment on above: Performed By: #### U MICRO, PREGU, ERUR #### [facility] [address] [place] [address] Dr. Samm Hurtado Glucose Ql (U) Negative Normal NEGATIVE [facility] Comment on above: Performed By: #### U MICRO, PREGU, ERUR #### [facility] [address] [place] [address] Dr. Samm Hurtado Hemoglobin Ql (U) LARGE Abnormal NEGATIVE [facility] Comment on above: Performed By: #### U MICRO, PREGU, ERUR #### [facility] [address] [place] [address] [address] Samm Hurtado Ketones Ql (U) 15 mg/dl Abnormal NEGATIVE [facility] Comment on above: Performed By: #### U MICRO, PREGU, ERUR #### [facility] [address] [place] [address] [address] Samm Hurtado LEUKOCYTES Negative Normal NEGATIVE [facility] Comment on above: Performed By: #### U MICRO, PREGU, ERUR #### [facility] [address] [place] [address] [address] Samm Hurtado Nitrite Ql (U) Negative Normal NEGATIVE [facility] Comment on above: Performed By: #### U MICRO, PREGU, ERUR #### [facility] [address] [place] [address] Dr. Samm Hurtado pH (U) 5.5 [pH] Normal 5-9 [facility] Comment on above: Performed By: #### U MICRO, PREGU, ERUR #### [facility] [address] [place] [address] Dr. Samm Hurtdao SPEC GRAVITY >=1.030 Abnormal 1.005-<=1.02 5 [facility] Comment on above: Performed By: #### U MICRO, PREGU, ERUR #### [facility] [address] [place] [address] Dr. Samm Hurtado UA PROTEIN Negative Normal NEGATIVE/ TRACE [facility] Comment on above: Performed By: #### U MICRO, PREGU, ERUR #### [facility] [address] [place] [address] [address] Samm Hurtado UR MICRO IND INDICATED Normal [facility] Comment on above: Performed By: #### U MICRO, PREGU, ERUR #### [facility] [address] [place] [address] Dr. Samm Hurtado Urobilinogen Qn (U) 0.2 {Edwin'U}/dL Normal 0.2 - 1. 0 [facility] Comment on above: Performed By: #### U MICRO, PREGU, ERUR #### [facility] [address] [place] [address] Dr. Samm Hurtado INFLUENZA A AND B AGon 08-20 INFLUANEGH SEE BELOW Normal [facility] Comment on above: Result Comment: Nega tive for Flu A protein angiten. Infection due to Flu A cannot be ruled out. Flu A angiten in the sample may be below the detection limit of the test. Performed By: #### I NFLUAB #### [facility] [address] [place] [address] Dr. Samm Hurtado INFLUBNEGH SEE BELOW Normal [facility] Comment on above: Result Comment: Nega tive for Flu B protein antigen. Infection due to Flu B cannot be ruled out. Flu B antigen in the sample may be below the detection limit of the test. Performed By: #### I NFLUAB #### [facility] [address] [place] [address] Dr. Samm Hurtado INFLUENZA A AG Negative Normal NEGATIVE SEE COMMENT [facility] Comment on above: Performed By: #### I NFLUAB #### [facility] [address] [place] [address] Dr. Samm Hurtado INFLUENZA B AG Negative Normal NEGATIVE SEE COMMENT [facility] Comment on above: Performed By: #### I NFLUAB #### [facility] [address] [place] [address] Dr. Samm Hurtado INTERNAL CONTROLS Within Normal Limits Normal Wi thin Normal Limits [facility] Comment on above: Performed By: #### I NFLUAB #### [facility] [address] [place] [address] Dr. Samm Hurtado URon 08-20-2022 , QUAL Negative Normal NEGATIVE [facility] Comment on above: Performed By: #### U MICRO, PREGU, ERUR #### [facility] [address] [place] [address] Dr. Samm Hurtado URINE MICROSCOPIC ONLYon BACTERIA TRACE Abnormal NONE SEEN [facility] Comment on above: Performed By: #### U MICRO, PREGU, ERUR ####[facility] [address] [place] [address]Dr. Samm Hurtado Bacteria identified Cx Nom (U) NOT INDICATED Normal [facility] Comment on above: Performed By: #### U MICRO, PREGU, ERUR ####[facility] [address] [place] [address]Dr. Samm Hurtado CAST NONE SEEN Normal NONE SEEN [facility] Comment on above: Performed By: #### U MICRO, PREGU, ERUR ####[facility] [address] [place] [address]Dr. Samm Hurtado Crystals LM Nom (Urine sed) NONE SEEN Normal NONE SEEN [facility] Comment on above: Performed By: #### U MICRO, PREGU, ERUR ####[facility] [address] [place] [address]Dr. Samm Hurtado Epithelial cells LM Ql (Urine sed) RARE Normal NONE SEEN /RARE [facility] Comment on above: Performed By: #### U MICRO, PREGU, ERUR ####[facility] [address] [place] [address]Dr. Samm Hurtado MUCOUS NONE SEEN Normal NONE SEEN [facility] Comment on above: Performed By: #### U MICRO, PREGU, ERUR ####[facility] [address] [place] [address]Dr. Samm Hurtado RBC 5-10 Abnormal 0-2 [facility] Comment on above: Performed By: #### U MICRO, PREGU, ERUR ####[facility] [address] [place] [address]Dr. Samm Hurtado WBC NONE SEEN Normal NONE SEEN [facility] Comment on above: Performed By: #### U MICRO, PREGU, ERUR ####[facility] [address] [place] [address]Dr. Samm Hurtado Coding Summary.on 06-24-2022 Coding Summary. CD:[id number] Gh 0bWw+PGhlYWQ+WD5RZBNqN 72nuJFxkC1PD9wJWB1OTQU QTDEHIK9HXV7otYH5LCosY 2VybiAv RepudPNeHH90TZp2ACC6pZ cpZCsteC6nuEEnI1x9CwUa BD84uU25CBagKZWeKeJ0Fu ZpbjsgbWFy N1ssEkQtoOGhRja+PHRhYm xlIHdpZHRoPScxMDAlJyBz bChrQB3qYl7tIHQlPGQsaN xhcHNlOiBj o1vtUPKeUXhkLP6glCuzM9 WjoQD7KWTsm0e0Yp80sLG+ YLPfRXB9kAqbTYwwe778Uy Eya8gjYOQ2 vFRwTCncCII3J15lh6O4QQ AgABRcGIM5dIF6qN6kzPto fyfsA8QfxJQwDcS8LHA9uL DblU2hmFsq wmlqbD3pUuv+C74DTU9UYN IDPJ1XFsx7S0StNbdtbLO+ CH07LIUgXP43sOCzrBWbx8 qyoMm0AbWi JZVaAKB1vDdwFXutu0ZpOZ OuW48tfJRvm8N8WLQnkLhk kGIlQlCvkOL9bF0hYWpqrn reu4kyvxth Xuwuv7tzbs52cR10C19nAN lhEIWjJSU0MLQmMTKhuYln hf8gaX1dSi1+AXrbs9pfc8 bejZd7HzLv CINgivEtpDaiYML0a3TrAs 60M8XjjWwrj1RfBsy5ev56 bFQer9X8aGE2IPkrGERozY 9hIEadBqQ7 SYQcWrYosE65tGCdEDxcPy 5wgHwviLbuTI3oRVFuvxve TGTqfZ8iVOBgkCPiiVeeFY 4wNTBpbjtm x043BpXzEHO8RPSdfGGuT1 MfcD0kEuRuEONjFXMdL9Wz iZVzWUypF717NLqvScG8DJ RgbqJjT9Bw GZJyeRzfEkA8i2O5Cp5An6 NszrnmWNS1PNgsRJIhLfGl YgRmXpN3O9OuFme7VBMswS asOJ1vT6Ls JXUfhvjhfofilMK2SDTiQE NdlA60vYQmDMccId3ch4X7 h086VDBnTKSgqF51Is0nvW ogMTBwdCBU cQ6tehrup5myjeuxGuYlVL PcUXq6BQw9PJZccJpfTlAm IIK5ZkX2CXN4zLKhvU8dvF kfwmccaA3y Oyc+L04whO3iMPL8ZME0xm txPAEfnnNfZO96VO64B9Tq PjwvdGFibGU+PGRpdiBzdH zvNO7eLmCl z9nvi0YlRPsuL4PaOTSqNG nqHuk7QCMuVZN2gXC2gD1a SSSsETsls4W2gVA8L9Tudj Ezgi8tc8rh SRTaICupW77fjOPnt5N5WO QfmCX2FWFmpIzbTrAwlE38 Oyc+WYWojWgyc7IlMoltd8 wmk1xyyDc6 RwMxUPZsdzBulMujGWK8t5 WjPq46L27fULxnXUNoKRNz DFCoAQGvvMhofi6abU4xRq 8+PGNvbCB3 fDG6cT0uNWKfKvP2RWvcX2 31IfLrsHPnDovgj9occ4fs rIc2JpGlGNQwacTuqFznHG M7z3VpIk43 D61hACnfWRLnFKTgXCXvYN BpxQpcjt6nwY2cMy5+PC9j o1naad87sL35vNW+PHRkIH T8vFpnGZpf CHJeaL3sHApiPtZ2ZQIsCm VsoY05kYKtFLblLb5dmDvv tTcqSB1cBSYkujvjd612Ly Rqn5yjDTOi zPTpJFleCSD2R47dp1R8OP MrSCNkCQT4xDS4eI9ykLnz bjogbGVmdDsgdmVydGljYW haVSerW565 IHRvcDsnPlBhdGllbnQgTm RvZMa5W6CyBsy7LGFkeKzo NA8hlXEeIUbtJi5uoGkwhC hqMZ6aBXMt gwioe379HwFez6evXOIkaJ TaKTkpGJO2Y14em7C7ENAb JRScQHH9rRW9nV3pqLoqmh ogbGVmdDsg owDyfYmjHAfcYAyfC822KI RvcDsnPkJpcnRoIERhdGU6 CQ56JE76fIWje8T4vGP3I2 BhZGRpbmct yvvqgQE3YRSjNHJzvA48Yd 0ppQnuJw1eIKTnQHA8OOYq bBPrC6GkqV1eCuTqUZNqRS OaX0SsoLRc PDbnW661YLfeEvI8MUSxpk WaN8LtZSBbvGsaByO0o5M4 Yh0HH1E1BG07WU17yPGcc3 V3aVG1Z6Ym ERHtvlmsnzkorZS8VHOiAN IsmW44Jm3tbZnaBi3kTFZp MPA8XXMuiWAeO9WlmA7tIk AjMDAwMDAw H8UruLDvWFciL975ECsaFc W6PMJgfnAqO4PoQTTevVsh FeR8t0E6Aa9MTYj2RF61XY 41hPBjw9P0 vLZ5J0ClKQXnvsrxsidkdT I6FMUoJDEctW29Qa2gbXyw Rl8lOMKlINR9RRRskHFqR8 AalK9gUlVq MFHfFGXkK6TcpXSqQLydB5 22OIkvLpD6SLZlfvZxW4Hy VITowEixJtU6m7Q8Go9NTG SvTF45FUG7 fUF7AV34UC14D8RzAaixwO FibGU+PHRhYmxlIHdpZHRo HPjgZJIfVuXnnSndNV4pFp 9yZGVyLWNv oEfxmMCwGtGok3orYSCqWU yvIZ4ddLkgE4NopPL5CQSq r8q1Ez67D19rP9ZyoSG+PG XtxLU0oYG2 eZ7mBuJrKqU6HHkcY356Ee YfyROrHehms9whe1btuTg1 IpR7OETvccTfpUtsIAF1f3 IwLv83M48i IHdpZHRoPSIxNSUiIHZhbG lanj5reB4eEa4+PGNvbCB3 kEG1cJ7jLjNeLkS7KLtrU1 49InRvcCIv Fdkbr2jvt1zkrYb0YxYhGF ChsxArxAmpJUX0h9PiYs05 R6GurIjni0YwKrp6me77dQ Vmi2G8wTG7 E9BzTFNypiyldDRtaZieWL 9cBMIesyhwEOOvdH4vEKXg W2v7YaKlZfU1TQntU7Gpbu W4SNXsbEZx GUpvMJL1Q23ke7F5ZYSxRV IrWQO8fIM6vA0zhLvhqxqw bGVmdDsgdmVydGljYWwtYW myR229MOZa yUerBHLvvV3gQTJsrUVysK rfYN3nBMVxrcmnVxhVENmb IEpBREEgTTwvdGQ+PHRkIH H1dDhcZFhf SKVpvI1bVAPyB4f0EgMxXi T5WDtkE8AvZVLsipmrMy25 fZ0xHcKhPgD0MPmuV8Iurb M4EERraQFw AOdkNOM9N86db8G6QBFmDT WnFEG8jFT5gI8dsEmwrogv bGVmdDsgdmVydGljYWwtYW aeZ960ONZh qKcgYyY0YhT4LoH1FUL3K4 SnQvp0ZWYptSchPJ5csLUr DPwoYl2whPdplIpdNV0gXW BpbjtwYWRk nN2zBTXrqRBojRvrWG2hMI Spbvahs686HxHePLH1EMWn cWFlK6GqoN7jRxVcLCZaLE XfH3UxwFTv QEaiN645WTviGaM7XWXxbt OeJ8JeSEOwoVxiQfI9l2X7 Fw2jBZEKGYNgtftvxNN+PH SdJPN7eFra BMkkUCUlqJ0jSUJdE4r0Jq PwGeK9UWtmS0HnUZQbjgeu Wi66mP6cQkWhCtY3OKknE1 IqlqM8ZVOu mIIySJgjWGG0U06fo7U5WU RoGLYxQAL2oDZ8aD6zfWsm bjogbGVmdDsgdmVydGljYW pfJAuwE710 IHRvcDsnPkZlbWFsZTwvdG Q+VLVlLFW6cPzhOGfzMWLz hD7bFVRjI2v0BpQbNgA4EF kyJ0UvMTGc zechYe03qC2oVnAqMyH8ED nlR4JcfeW4PJNzgKZwHCjg QRA2M73mh8X9NVDbWCHvQJ B9gIX6lD4y bGlnbjogbGVmdDsgdmVydG xeJVxhBJyeL479VTUlhLxr PdMiBOXbMY8twUcayQQ+PC 85pp50A5Ym HzjhNuj1PWSzCUA2vNQ7iE 9hBZNoYSzzx7S2eFD8X2Uz hoHpfy5xd3dgUTOuDWhkI0 4kzHCxo2N2 OGIuwAQ3ABEaxDbiTyPfhX 93Oyc+SQSavYmuu2GuAaql n2pjk1wscRl3VjBrCFTvxv FsaWduPSJ0 b7NzDg14M85rZNvnREMoRK KsEDNeEKTjvVzaon6nvY4v Ii8+THFyuXP9oWJ4hY3fBr IvLtS5NRxx R546RvPkuBXgPsxoh9yxd9 jaeFh6QiLyKWPcjqSkrWgt NRK9f3GbNl78J0GkwWjcv4 EwPkh6ne39 kNCko8K4qVB2S5UxWINsat qttFPkzYsnNJ2nYIMoloxe KPBsxY6cMCVlZ8a7AaRgDu T6JByfP1Kx thN3QOKvoALrOXWleIRXiE 3azxzoc7xwavufVtXdEYFs SEp8MBf5CHRwuKlmGySjLW T1MuQ4GVC5 uVJdoW0exXctnillxT8yEc c+CJo3l5apyELeDU0phBF0 RB70TY10pAIkg3M9sRX2T0 BhZGRpbmct vdkknGP7HCUdLACccA92Ij 2zxCbwSf1iDTYjOWG3VPPj gFLgL0QdeY0lUrHfLIWhIG TaG0LbzGQa NDyzD814WFhcIwL9XKRqqm JdW5YoAQMlyWkkInU5q1N5 Tz6ZQK37BA33TG76gIIkz9 J3oET3D1Af WOQfjfoksjggkVV0FFZnCK CdvK59Xt5tqQrsJq3uOICd GBT3PRRmkNJqS7VcxO0tSa AjMDAwMDAw R9FqzKKaXBfuO571CRdmSs J4UHBpulJvG2XfILTpcDkf XjZ6p0M0Pu2GVs08LW15UY 81cIZsb2A6 fSA4T5HzRSUegdnjyrqnjN H6LBPbFDIjxF50Rt9njIiz Ny5aDUHqJWA6YYLliEAcT3 DuuO9sUtVo QKLpAJAjK8KfkWFtWItdP5 58EZjcIsA5XAZxogDqL7Dq XJGdkQmtGcB0y2G1Sc6EVZ eedme6C1Rw PjwvdHI+TC09XJZfUQ31jV OmcQJxi1ifkIa1CvHyHVDb QIG8uXepYKqvh9RqLZKxQ9 1qdEBqn2J9 IGNv (more content not included)... Normal [facility] Coding Summary. [id number] Gh 0bWw+PGhlYWQ+UM1AVVNiB 17ktPUdzC7GG8gXTH2SSRU UHFXGHY7LUY2ygFX6GFnaX 2VybiAv ZrbpgATrSV29RBv2VAQ8sK unOYzxiB2laDIdM7o1LgCe SV12bM78SAflTFAuOoL5Vi ZpbjsgbWFy Q0mlGlGmmWDvEmv+PHRhYm xlIHdpZHRoPScxMDAlJyBz jKfmEI8jJn0yNVBoYGQoqL xhcHNlOiBj p7rbWQOcOMcyAO8uwUpaX9 NjoIH0AOKmi7n0Bq51sEG+ LRSkUDL2qLbnFWuvf563Si Jcq5uzHAU2 zWMaGNbxFJV2B69xg4U2QV GzVLOvFVH1jBD9tS6uhZhl nbojQ0UyvJKqXnE1CFH1aN PurX6jqOyi vnkauJ4qIlz+G08UTC7RCH IJBZ3MJba7G5HaFstjaNI+ GI61OSZlQD88hKXcqDAfi9 vgeZi0MmAo NXYmLVF8jBfzPLxts2WjBB SzB52jcXVqn4K3KPEuzVmp zRAwKhFvxOX2sZ3gKWauky tjx1kpzjhg Zdsfx0ozxa64yV57S61oHU kvGYZlBGX4EYApUXIvwOic on1unU5jBf6+CStkr2hgy7 pquBk2HuHn GNAdzlYdjPezTBE4u7GgSm 53P4BlfOhij3MoAes3pc01 rUBzc0J0cFM9RVkhBSQxiO 5jJLeeCsO8 RWSeAwZiiT30kLYwNDtwFd 7meJgebGogMJ6lSWXscdxj AWLlqI0sKGLffSPhfJitSA 4wNTBpbjtm r568HcGxLPS8OWScuSXwP7 SatN9kJkVoEVApDDJbS8Uq xGKdYBhvI748MBhqLoN6CF IocmVyA6Od XCTpkUvpVsE9a3O7Rg0Sf5 PnmtebQDA1DClqIHCoItBt ClBaXsF7I1ByHgg9KRLwhO cqGH1kM6Eb XOGhnwzrllpspAT6QMByNU LpxQ65cKXjTXelBi2ur8Q7 z203HQWrSIEfmB78Qi5haU ogMTBwdCBU hD7wpaojw1soyysvTuHxKW QwMYk4FFc7WREkfCtrEmNe JSY7HyR9IML0oYDngP8rpV vlpttehS3u Oyc+D71ggE9oXXS2AJT7jb dsMVJyijNbCL12SD20Z6Oh PjwvdGFibGU+PGRpdiBzdH fsVB0mBfVz t5ley7CgCNglD2YsNAExWV iqOnk9HYLtJVB8xVD1lF5r XNPnQLnhg3D8vQM4O2Glwt Fzpd2vs7dq TFGnKEtpY70nfYLnn3K1GO DegCB5BBBhvOrkOaDzlC65 Oyc+BZNwiEqyz3AhSsnoh9 frp0oexAp5 EfXiECUzujVglGsqURU5c8 PdSv77K03lOZtpPEVgZBHt XQTfFMWrhUivgy0lkN1fKp 8+PGNvbCB3 hII9dB4qUYJaSzX2JKbbA6 10ClMejNKqUcyvl9exz8xq fZw8LsMzXWZfwuTzvVphMR O8e7BkOg18 V22oYAtfTTFfCNQiBSUtIM PumVkdfp1ajO6cSq0+PC9j f2elxb41xL05jMY+PHRkIH A4mMgkEVan VXVyiC2tUNlkMbI2EXLuPk XkrL16dHRtCNwdHm4rjTsc sKrqHU2iITXqkupey092Sv Cmb0ovTZIr rLRvHCmxWBT5V86gp1G8UT SfBRCdROF8uAX0xW1lnCdq bjogbGVmdDsgdmVydGljYW diMQeoT340 IHRvcDsnPlBhdGllbnQgTm KqDQw4I5WlPzo5EAVmsKgx FP1vmHNfBSfyMg2sbBpsqZ iyGG2cZICv rpnjd292FsUol7coXNZbrT KfIWnfZXF5R25vt2L7OVOa BNBxHQN2hQY8sK6nlOipzw ogbGVmdDsg ciUjnXxhWLvwNAgtR214YE RvcDsnPkJpcnRoIERhdGU6 DA49CT59cGXqz6V9yCM9B3 BhZGRpbmct gylibUB3KHKmALFvyX34Is 5lmAcsMu3pMEJdIBS7ROIb lDXcN0GpmA1jElQiOPHvEM OpK0TjeCYo LOxhD908XJekDmW6JSNgue BbJ0EuRQQevHdxJtG1j9D9 Af6KJ2O5GU52SQ61zXDsv5 Z7uDJ9T9Vj NRUhmfyfxgosqSY5WFIrZT UdsV13Ul5yrAedCq9wQVGj NHY1ZVDzrOOnS1VaiF1lKt AjMDAwMDAw X6LwyGBoSCsaN231BFssXj A4EAGeymBpW0WgYSEtsIgu CtP2f8O2Bc6SGId4CK14AW 78gRUpn7C3 mTW8B9EnLPFyaehxzaikcU A1TTHmSINyrO03Ec5dgUvr Il8kPQHrYLK3COEhiMUaV0 DbfO6pPgEz VCVkAKVrK4TclGRkNIguN3 60OWumDwC8WTFzlkOkW9Ta HMTfuGllPqZ6w7R3Iw7FDI TvRI05LJN7 jKZ3OZ38SI92Q4JgXafcoW FibGU+PHRhYmxlIHdpZHRo BMmwSIXkWsHygVfaDQ6cBp 9yZGVyLWNv wJhunEAlPhKad7heSZJzSZ deCE7tfTllO4IfzNZ3BBVx r6w1Ex80J20vH4DsiZT+PG PjnLP8oWU5 jC2bLyPhCjT2NDgfP868Su BmoVSiPxqvv8sbf7iqzLd5 KqH4QHIcesTavHhgWDF8l2 HlPi02L44v IHdpZHRoPSIxNSUiIHZhbG wzak2zyD8gFl6+PGNvbCB3 qNT6yH8pMlKaIvE9JDdsG6 49InRvcCIv Vcucl9vxx1vfyCf7BrXkOC IwvtEnvWdvLXT2a9CjUq17 W5XakRory2IrIjj9vi25gM Hwr1J2eLD3 E1NhLTGvgekvjHEonZtxQS 8sTPUvzcarHAFsiG4jODHy S2z5WwOdFlR3DNlzL2Bnvv S0YJRdtWNv QXtcSLO9L53rh4Z2ZAJfSX JtMCU6zZQ0bK4jjRmytfaa bGVmdDsgdmVydGljYWwtYW lyB717DPOz oQbbUGNmiZ5mFCQnsORfcG woRW8jNKWlwafgAciCKCdg IEpBREEgTTwvdGQ+PHRkIH Z5zJjfTMfv JWQirA6iIVPgW5m5WuXcVk R2HLsjH9GjKKXezgidSx46 qG4uVsUnPbS6WPghO0Pxvv P2DMLffSQf BEffTTY6G66vo0Y5STWgZF HoCOG4hBI9wH8czJxuxtfq bGVmdDsgdmVydGljYWwtYW ahU262FZVy iCpqIpN0JdW8ShK5MGN6O0 YiYhg5IIOkzRoyDP8cjGCw ELndAu1qpGeoaGslTJ6zRU BpbjtwYWRk lT0uURNhfKCihBthNO3qGZ Ydlmqsz768EgFdCYB8CPCv sRUqG9OgfH0sSoIrZRAbUR VkF0PqkSPy HFywR746HCykNeT3REVsak EcD3QrVTKdpEbmLcJ3l6D5 Fd4hMQVGFAIizdlbxCH+PH IuXFV6eXyt MHmlWPNibV8ySFSkP8x2Yi HpFoH6ENimO5VuBCNpgcux Is26iV3iYlFuEmQ2TTyfX4 LqarQ2QFVp yQZrYEouLID0Z93pn8T9NZ SnNGFvGRN0jUQ7pP7wnEuq bjogbGVmdDsgdmVydGljYW qtXOalR785 IHRvcDsnPkZlbWFsZTwvdG Q+JMIwYIJ9fNmiEDqmXAHv dM7mFCDcU2b3ShIzBnU3YV ifT7UzMIGx gqevXq78aT2vYhIzHlZ7IH frK0KtjcA2NBNxlHObGZfv YYP3A55xx6G5PPJyEMWaTP B1oSN6tJ0c bGlnbjogbGVmdDsgdmVydG klDYbaCUztE389ZQGauLpm UmAxYRQtCS7imPdvsRZ+PC 75bp29J8On FlpuJji6KOCrFAO5hGG0kG 7pNZLbVUbmt2B0yWN3E4Fv baSzqz6po6jmQUWpDUoyY5 6gcKIno5O5 CVSfiMJ2KLNvyIbeFfTbnC 93Oyc+JCBbhTgbm2PkFtxk z3isb7mvvYo2YqIzYFUsyv FsaWduPSJ0 c3EhGn75Z72pINzvWMXyIO VrLPSgTHFolLzsfx1siQ1m Ii8+XNUgvXK8zUV6zP8pVr LzSbS2OCxu C780TaRutIOfZsyiz0fkr6 hjeVt0OlNqMKSymbQipRvj DVP5k6WmPl17V9SseYyla3 KfJcr2hr79 bUWbv5U2aYM0N7ArAHVapw wnoBExnPfnSE8mOHMopdim FJOywV0bXBAnP6r4BsFdBl D1EUlsE4Kz mbA7IYMxtZSgUFIkcAHKrI 0jgbcqv5zqgfglAqYiHDLn LLu0KAg1CHHrjNscLqBoZS G6KbB4GOX3 pBWbcQ4osShfjkuazR3rLj c+FAh5s8rbwFXzER3muID1 IB51TT81tYGic9S7fOJ9T4 BhZGRpbmct cegqzLW1FTUuUIIbuT66Tm 8jeSxeBv0gHFXiDJL8EPBl hCMyN5SyqB5rFmPlCYTsGH NpE4FxdEAa GHevY133FTpsFvF0UXWcdx PmN7YoHCBafFcmUsH1p1Z0 Tp9SSM02KI25OM28xJFtg0 M5mCN4H4Zy QHBfymspnnurjFK6XDImGM PahN57Lz9axYyxGn3oGSTr NBV0GXNyySRcT0YokJ9pPf AjMDAwMDAw D6CwlYRjISrqF530MOcxMw S1JXUhcxKeU8LlPBDuuNsw UdS7w1R2Ft8STv39GS61UO 53yXXzh9B9 vXW9D4LyAVFbkiemdyoceS A9OAWkJUQznF78Pu9jrAjq Cc2pVOMxLSZ9BGNofODtS3 FeqM5lHpZp CQTxNDXrV8VkyQEoSStuX5 22AVwuMcZ0UNIjsvKhA7Fu SCVjwBbuNiM8r7H9Qe5CQX emizu5X4Br PjwvdHI+GY19LXHbEL85bH TwbFRxb3ubdOi9EmDqEDYf GRD4lFzcJIqkv7StSDFmJ8 3tbATnt5O7 IGNv (more content not included)... Normal [facility] Coding Summary. CD:[id number] Gh 0bWw+PGhlYWQ+YT3EDXMpW 28nmSHblV9WY7zFGZ6UYCB RLTQJZG1ALU8ymAP6AMayF 2VybiAv KvvnfOYwZG32MCg9BMU3uE jbUShufM2dgRDxT9f6RzYa BA27nI85TDwmHXKpJoD7Ku ZpbjsgbWFy Q9vwYoBqwBUtQyc+PHRhYm xlIHdpZHRoPScxMDAlJyBz tHqrYS8cIv5bEAPuAWLwjE xhcHNlOiBj j5boGXVuBWzqPR8maEjiV2 UgfLE2UXWxc1x7Tw61aEN+ INPjETN9mUrgJKgsw801Gu Nmf4fsVDO8 lPQgYYmmXRY5Z68it7Z0LG TcRRGtISF2wCU7pB4tjGfa pqqcI6MyeCKvGcI6EGT1qY FevE8awRpb rnheeM5pUdz+D59LBT2IQI FTWD4FRyd3T2TsWzgosTY+ JW25YFEmAP30yHIrqLPjj7 wfxSw0ZrHt AAPxLTR8yHfhMKyln8LuQF GpO85mbGZwt9S4TRZfuYzq vTTmTdTmxFC8xV4mGVhayq klx7wfmhcc Tbnum7nwwa75tD14C68eSI dzRBCyVNN9SMLzNUWkdKjz fr9ipD4sDj3+AVlht8ldq1 ogbHw4DqMe DIEwezWnzKqhEQI6t1DtGg 25N0ZfaCwav7KuXos8be09 qPHsa7A7qKN0RAdpMVBmjQ 6iKJqrWvZ8 GOBuDnHqxP62sKNgGFwxKb 5jiWqwpRpzEP7zEJRfstpu JWWgjZ0dIUZisXLtbPcsSP 4wNTBpbjtm o683DnCsKOS5KTVkmNYoP8 XwnV7kBeFcOMWgLVTyE8Qd hTLsXTtnW450ZXasCwL1ED OckvFwI8Jh SDJxxSibQyT2n7S6Zi6He3 HnsyhiFBA3BDxtTTDxRdTe HpCvHeV5A5ArEog0YSQpnI hmOE1pU3Vj BPWqyhgctcjxiER6SBZdEP LerV12dMPqUYkiBj5uk9U8 j767UCXrAOTosQ57Ml0eoU ogMTBwdCBU uN4zppckw4cirppfCsUpEO FfTDq4XCh0NEUufJrzYjRa ZIG5FqD2TXN2rUVvjX8jlJ yjhkjdkS7r Oyc+Q12reU6wORO9EYK0kw fvTUAvaiAjIV51QN91B4Nu PjwvdGFibGU+PGRpdiBzdH gqAN9pUtTt q1zsd3CxGDwpJ1ZwIOUeFN eqDti6IHDjWEN4cIU4fQ7l YQOtERhwb6Y4rTQ5N9Ozwv Puir3to4js ROZfTKkaI36twGUqb3C1ZP TudYY4GFIsmHbdKbRxfO52 Oyc+KZCjjAwfr4BaXgjbp9 bfa0wezNs0 TqDwUKGtreOovIivGSZ8t1 NcAc28L30tPSzbIWVoTLId YXNvYKDeoUglcc9ahB1cMi 8+PGNvbCB3 iRL5aM9dXVPzBsL2UDrsW3 84NbWitRRwWnxqo2otn9zx sYk7KhPoACMxynQrsDzlPE Y9i5KvPu06 N32cKLgnYYFpDMZyUVUjSP PqfGyeax8nyF5pEy4+PC9j j2bgnz00kM42kAH+PHRkIH A4aWkiDWnr RWQgrU4xLRpmFdE9AWRmTh QyrK16vAEgBCmlJv1ljEdk nBkoRG3zZZElnqjup554Uw Erp4zwDBCa oRDyHRzbCZK7Z99ss7R6WF LvKPOxMKK8aUP8uT5qxTen bjogbGVmdDsgdmVydGljYW peQPmvX134 IHRvcDsnPlBhdGllbnQgTm WaAQd5W3HkAbp7YHIjdMbu TS6rdXMdSTviUc2geIeiqA wyBQ0xLYSe plbzh164AvRdi9okMKDiyF JuJRlpFQM5G78hn0E0MAFu ZUJiUGV0vVT3uS7epCmmfh ogbGVmdDsg odNouMfsFByfBQdcH942RN RvcDsnPkJpcnRoIERhdGU6 IH95IW30eBNzd1W3zWD2M1 BhZGRpbmct obvsyPS3AJHdIECsbI99Sk 9roElxAk2dMCRyFAQ1AGPo cTHlI6GzeZ1fXfLoQQVfUF QcM7FhoGXt OImfF457CSukNqP1LQWdmn JlF2OwHYNfqXuhMdY4u3K0 Rn8BK4T4CF27TJ75mXQga7 X7rTM8A2Uz PSUxfpwjegwcaTL7FAAaSK XfzG13Ae2ngVliDy4rZGAx IAR5AYCdgGZvH0JmfY2fSz AjMDAwMDAw X5YcgTAdSJddC689PFomZr Y7XVBngxIbE1FhUSTtpPxc LuX2h1D2Lo8DGOo1GG70MH 10vGQei0Y7 tYY9P4HgJEEhvkqfyoahlS V0LZIoZTEffW92Yn5naSgr Ax5eUPHuPXN1VBMhwOKfW2 WngH6oBhHg FJFsRPOuL1JooNRhFMptJ4 49YDjzQvD0JIHozaAjA7Dr RVZuzYxxZeE8m8K4Xo1OES OqLT71GBH2 lYP6LN38ZW23W6RaElqgeO FibGU+PHRhYmxlIHdpZHRo JHuwMWKhDuJfyBikTH6xVe 9yZGVyLWNv jFcvcGEcNuXtl0wrGBSwRZ nvXS4fbHuhW0AzrHW7TWXt j4u1Al13P60cU7NjmKF+PG RbkSB8oCA2 eJ3hImJrMiK7FIkaT808Kv QdcRDyMcbaw3nvd8cxxRj0 JqU3CZTqghQvcIjiVHJ8b5 XuFr39L47p IHdpZHRoPSIxNSUiIHZhbG rnhx8ekY1vEy2+PGNvbCB3 uZC4lK3iYsVqLvS3ZBafA0 49InRvcCIv Jguuf2psv8faiQh1OrYzMM XtdiEolOdxGRQ6s7LfBb17 Z9RyuHfgo4GkVzx5lm01xI Ivn1I0yJZ8 A7CjFCFfeugdwZCvjAbfQQ 2yASEthygsHDTmkD7jEIIk H6i9AuFxKwE5UIwwN5Ygaz R0FHOehNMb HBwwBAU0Q07nq9A5OFYrBA QnEOO6jVD6sQ9ujFfpfute bGVmdDsgdmVydGljYWwtYW xnT711TZZh lMjnHHRtaO8nRGVwjXYqoS maSA6tWXPmugddCxjSKKag IEpBREEgTTwvdGQ+PHRkIH K4qDrnQKeh OPDxlZ5gXBZiX0s2EwKnFb Z0RHjlP6AuEZDjsohbTo90 fP0zRaOmSfQ7MRmmH0Oxlr Z3SGMlrOUv UHxsUWI0U73ue4C0BVQmAJ JqZFB3iCM4bM9wdOsntwou bGVmdDsgdmVydGljYWwtYW wwK179HDXg jCfeTzT4PvK7UlC8SUR6I3 NtOse4PBUyaElrBK6kxYUz JIntGb8ynCwbqOceVI0tJM BpbjtwYWRk tM2jQLZmzZPomHasWD0tAT Toobsqe908HfViIUT9CRUr dGLeR9KuzR6sKhAjWPFmHM McS6QaqLVn PReqG097BQnuMwZ4BUTkms CoV2TuZDUxxCbzEgJ5v4W9 Nk5wTLDOQMUwzkvbbDL+PH KhQSW4wBwb KPibPANwfG2sYSSaA3m6La FsZrR9EKmbV2EoTIXipyoz Yk11fO5rXqHlEpL1MSdoY9 UafqF6OGEv mNNjDMdgZAW5Y80zk2T0BW BsQNDuKPR8wDD5xB9vzPzq bjogbGVmdDsgdmVydGljYW kzYBoiD599 IHRvcDsnPkZlbWFsZTwvdG Q+TRMwGBQ1uUytSQwrCJKh tQ7vSUXsD4b5BjOeEtG2OA fqH5CaYTOw drjfNd41aQ7fVhSiMfG3DX xfU7EzgrS2SMJjtADbXGbx UWU6C58uf4A9JRCuGATnMY V9uYF8rU2j bGlnbjogbGVmdDsgdmVydG fiWWfjEJgpD691AFMjbHtr TeBzLTGuSQ1euWoquAD+PC 45km76H6Hd GwfcOji7DTGeCNA9cKZ2mX 3lASLrMLmpw4M9uYS9Q9We onDzus8yz6ucBEDkXGhoT9 9ifQWzx6K9 VEGfgAJ7LRCqxPitVwVecF 93Oyc+YUZnzYzok1ByOrvt u3cei9msfXk5CuRxVYQayp FsaWduPSJ0 c3LdCp41T26wECbxFAWfRB KfYXSuGCQdqTtgfq4ovV1p Ii8+YGQekYQ7uGZ9rM6nVs LrKjW0OAbi F397FmCdkCQwTbets4hqb9 spsKu1GpTsFGLnojVnwTln ABB1b0RoNg77A7ApvPimv8 DcTlk8oh64 mYGgo6K8lKI7G9ZxFLHjvm pvoOLfdEedCH3qTZGguxzp NSHtkX5cHQVvO1e1QbKwTi H0YXafC0Ss gyE0ERGqjXCwLKGdwQMTeC 9vywqcm4czuaojVuNhMYOo CRn2QTk5QNXolCjlVgFyET H1CtP9AKR0 kKXssE6xuBgldjnfbU4wHc c+DJa1k4bbrLJcVZ8idMW6 EK26BK50sVSnj8I5sXI4T4 BhZGRpbmct jxtdqHZ9PMQpAXJnzT04Ts 7rvEdmQi8uLQHrTFH2CUQn xUJzL5GbwL6bOtDyEXFcZS ZlW4NmfVVi UFowM360HAahFuC2FDElvu WsK5VoPAUgtKvyRwY9s8R3 Ht7SZW67QL63ZT93cCLif3 P5bFS4D1Dx ICMtwkgovcnbqHA0OKBbIU AxnQ49Ip5nrMrjBy8aQVEc YNA4UXKqxNLyM1WevW6hNk AjMDAwMDAw Y9MwcROyCLlpH698FHmjHn R1SHGugmXaV0QgOYQczHke QpN6h2C4Az3TRf97NL68KZ 35qZOdb7J8 iVI3N4WsFPZkjxcickprmR O6ZQSkYSZizN03Hh1kyXsn Fn9sUDLhQHA7MJVlrSIkG9 QwsT9iRrUt UWJhDMOiG7UvnYRbCAjzM5 98FGltMlM3CZWmruXmG8Oc WEBuvGnuYaH3b5C3Qt2HVN dbqgt5H6Hs PjwvdHI+RO25XQIdPT77eB YhfWVit0hicCc7RnDsYXZn LHB1wGquVJamx6PtEYOkQ8 3ptOGqp1A9 IGNv (more content not included)... Normal [facility] Coding Summary. CD:[id number]:[id number] Gh 0bWw+PGhlYWQ+CD2MROBsL 18khMCnvH1IC4uEBZ0WWYT MAWICCS9LHE4wxYB5AXjtV 2VybiAv PctnsIVdBA08LQa3MMH0xG rnQPwonA6moXRmD3v0MfJj SI13eV43MPwuZCLpMgW1Ze ZpbjsgbWFy F5qbMgAuiJFiVal+PHRhYm xlIHdpZHRoPScxMDAlJyBz hSutFY6jTw6yEQUvTZUtmR xhcHNlOiBj v5ntKWPaVZcqIO6zuNxvX7 LrxQL2IJJlm9e0Qy46vAZ+ NDQvTAF0oUncNTcuv700Zp Rbx4feVTR2 cCHwCKmxOSJ0S97gs7W0GZ VmWGUrXCA4dPC0oU2baHga jvhcT8IipXZiPjQ1PQT4eG JjqD9apNoc khcwxT8pBuq+D81PTI8OLW UMHA6TBqu4F2XaUrrxtHF+ ML11YLQsQD50cOSkxYLiq0 tfhXg7YdDs EKCbVCJ3jAroCMzwm7VvEE AwV56fqQJjx2J4ZMNqxSqn kDIdBmTjeKZ1aN3fDKoiaf mav6rffmqm Sfuyu4whuo31fW30W31aDI jkMXAuIIV8HRPfGKCqrWqk bn8qlO1fLi4+LMgmj0sea9 nnpXb5RrNt AOPkaeGtjDduYXY5v8MqEt 39P2UjeXngm5GeZaj9bw90 cPKtg6J7vAT3FZgwJFNdbJ 4aDQgiXgF4 HQKdGkBjvB12aPNtVUvoKb 4wdXsxmKiuLR0xXOTiftsf WASwgH4pGBCfoMLkgYrkTJ 4wNTBpbjtm k864GkWoMSK2TOQkbTFlD6 RdiR3kVbDxVPWzGPLaG8Pk zUEpRIafO817DDerPnC1HT DmiaYbU3Bu HSXzsSiuGfS3l5B5Cz7Is7 VlwesiSFF7ZPirVNLpTfUs BxFaIqH3S3LcDuq1DGXkhW vcTX4bF5Xp RAUhikcbaqyynME9DKDwTP UmuU37nNFnLHkfXz0uw9Q2 q311ILIlUWJedC11Ck0smV ogMTBwdCBU bR3vdnsjg0qicsgkCbQvEK LjRFk5YAm7RRDlfCvkPxFv AKE6OkA6ZYB9uTMjjL2akK vbynwddT7y Oyc+R09zxJ5rAOS5GYQ6sk fjENCxoaGqWK37PV23E3Yj PjwvdGFibGU+PGRpdiBzdH cqOA2rEaZj p9mdp0GtCGijA1QpHVEeGU lbOzt3LHDtFBS6aGQ9kG0r PNEgANhph4S8dEW9U5Kigc Kbby8nf5al HJEaFVleM86suDAzf9J8KA DevAS3UVPinBrlAdVbdP29 Oyc+GBMsgNplm6VwLpvjp0 wkh7gfcOz5 UiXfJWXxgtKdoTrtJEK2m4 HiUf58B50kYUsoMNWaVYZq SLLxNZQwnGpyse6kmJ4mPg 8+PGNvbCB3 iDK4aR0cPRAqFzW1FArwT1 52CeSlxIKgPmqas2vrx2tq aZq2XuIwPHXxeeMuxErfIR D6z0PnRx36 C58qKYkpFCTjOILkVUBjSJ CosVivjx5nxT3dKb6+PC9j b5ahvn51nO74lYH+PHRkIH N1eMvgGUsi CGWxdJ2kRKdgGwO5AMBsRc ThwC28uFWqKHvfMs1mmWbp iNdfSQ3yTOCelqtyr342Oe Nly2lwNAEq jVZpCHzlHSS9C93zs6L0GD ZsKXVgEPG5lUX6qA6coAic bjogbGVmdDsgdmVydGljYW vcYCxxM728 IHRvcDsnPlBhdGllbnQgTm WaHSl5A8HhGar3QMLxxAon UJ1uqDHsCLtyCz5dbEpxvM xgUU4cAMBy czfhy832NzMky9ckAEIvvD JgIBwrBBW8F32nm8J9DSHn UWGwAFE7jQE0yD6ckWfknv ogbGVmdDsg llYbkVsnZJarHIizJ038HP RvcDsnPkJpcnRoIERhdGU6 RD31KD04vMVwe9M6bBF5J8 BhZGRpbmct lxrccRF2TOVdWOAhvE82Wg 2ncUhlCn6vMPMnAZJ7WWRk pEHfD6PujC8oOhSkIREvAG HrN9WliUYp CEsyL483SBunCxK0NIQrvf RdW3XgBAAdaMyhJxD8g6J1 Em2JW3V1QL13WP80hCFhy6 K3zDU5R9Xv IQCvkrbytfvmgDH2KMDlHK QhmY31Nm6qtPxnPw0vXTEt XDJ5UQVgyATtA0DbtT3bAv AjMDAwMDAw Q1IqjHWvQBtnV954MHysRp K1RTSmdoTlH2NcVSTquKdd JrC1j3V8Kf4YEYt7HE90BS 32dRDvn2S0 vWC0G1PyTRYyofxvbjwfeN K5OUPjPTJzdF90Ms1ejBwk Lj1kXTSdAVZ1GQWvrWBcN7 TkfW4cSoGb YQJxTSKqO8JahPLfFUtyQ5 64SGlqLtM5GNYdlpCtV3Jn YYSxzYywOfW4y2K0Eb2IWQ PaSI80VWU3 yBU2QF98HR84N0OeQveseR FibGU+PHRhYmxlIHdpZHRo WAcyTFXqPjBmdTzaXX5rRm 9yZGVyLWNv nNnruFNiVgLtq3xyNBKgKF ucXY6vgQrxN0CyzPR2QTOd p4q8Pg50C65zZ3TyeBC+PG DtzJT7vFA7 tT6uBkQtXbJ8VKqjE889Uh FxiEEpSmegy5gni2ztxTh8 MiS7YGZlxcYiaEabLBD0c7 SrZq29B43q IHdpZHRoPSIxNSUiIHZhbG ytns5dtK1wIj4+PGNvbCB3 hZR6sF0fJtYyVcH9URyxQ7 49InRvcCIv Qrcpi6nll1ltkIs7EuQyJU UivbHexTbbUAV5x9PzAd05 Q5IafRstj4NcDof4ec23oO Fxi0K2xUS7 P4TiAPZffgxjpYQhgRmsLX 9vXCIikxlgBXYgsR1lVUMq Y5w7CoGfGcP2HIeaU2Xozv L2DDRrlUAb LChnOYP3X52nd9S1WCZeXD QtQWE5nUH1sL6lrKuesout bGVmdDsgdmVydGljYWwtYW bnA424JVCc lSkjSYAocQ3iGNKhpNXuvQ goXX4hRRBnsqnjDbtZDMax IEpBREEgTTwvdGQ+PHRkIH T0aJutVJdd EKJyiG1lWQGbO5g4DbYjYc N5XTxkI2SgKTIsgdguYh60 dI9kRuFwRfB4KLraE2Frhj H4ZEVqnPWl BTgpBNS4L17ip1L7FJJfOT YyYRO9fEJ8gE0efSkdfkcl bGVmdDsgdmVydGljYWwtYW ouO722LEJl mSymCzZ5YaH2BtP4MLN0B1 XiPva0GQWrtHjyGR8mwBHf LGizUg0uaKpdzYnvJI3eLU BpbjtwYWRk cJ3sDOWqmEMjcJunRJ9pBX Eoufddl506QxQjUPQ6JGHe sWPkE0UtpA4eUjPkDADpPQ UoM3AoiBNi OSjyC852ZIfsUtZ1JAVbac LpU1LkDLMtbBovEqS4e1Y3 Uk4hKXABYKDzkecdrHR+PH RlUBL9bZro SWpbLCZopU5kFBXwK8j4Tr QnCqJ5ODwzL2ClOGHcbqvq Pe13dI3iMmIdNsI0QTnbM9 QqbcD3NPGl xSUhGXixKTO7Z66px1O3WN HiDOSlRZO1yHO8wT4qgJzm bjogbGVmdDsgdmVydGljYW rnGOwhP242 IHRvcDsnPkZlbWFsZTwvdG Q+NGSyYDQ8wKmkYZqwFPDa iP0wSHFjJ6i8NlKjPpM2OU qaB0UmIJRt gcgsYs07uB0dMpXbDuQ8IG jjI1UedwP9WCMznHGyYZgl EDS6W71wu7F4ICHiIRNjHT B6lJM8aB0b bGlnbjogbGVmdDsgdmVydG vmUQniIOvjW824XLVwlWoo VyKaVVCpCQ1urKteeWH+PC 67is86R5Er BsxoDay1CTJvOQR0lSK6eW 0dSPYtYVibh0X2aYJ6C5Ms xsHblf7yz2hoWLJqZPrwP8 9bcLVxd3S2 EJEvfNC1RWHtzMqqPxSgoJ 93Oyc+BMAidRwey5HvQhtd v7jhh5hmpAg2MsPzSDCoui FsaWduPSJ0 p8EuXt05O90pQIjtMENvPH DkSJEgHAFlbVzrsz4tkV6f Ii8+DJMhfXZ2hEP7xR8bIq KnMbU5DNhh A410YaImuLNsCggdd5wla1 gycBe3KqVmIMQnbbSqtYem TKP7p8CcIs67N9NivJdmq9 OuAso6hr45 xUSuh0E3hSH9O1TeLTUjmx zsnFUewDshCY2oLZThzwzn EICdnD6hUFCrE8o7SePoZk H3BKhqX2Qp mbY3MXVujOYsFIDzvTSDeH 4dirqzu8vzipajSaXuMVXo VBe8XFp8TBHwdJppVxKmSE G3YeM9VLQ8 xHKnlD2wiSnuobjzqF8rOc c+KEz6u5ybjMZpAB7coWU6 IJ40NA34fFMzn2M0yUN1J1 BhZGRpbmct kevhnYN9BNOnBGRppD20Sq 1pnAzrVo5sVYDiGBI5CQHn uFFzO3KplU4vJzFuNGLvUC DfG1IgwSHc JHckD615VHyuIkB5YLOevo GzR4JoSXLdeBmnNoQ0z5B1 Sj8GDD77HF04MW72pBSid3 W3kRD4V6Gb DYSuegpunaihzJB1YRCxJN WktR21Fg2zrRyjFm9tVOEc SJA3YLMkxUOiD1ZckB5wWd AjMDAwMDAw V3IqmVNaDArrU360EAkxBq E9KZNifcLrK9QoHSVncZsb OcD1k6C0Op3VKm47LS36VH 98iSDxv6Y6 pYU5B2HpHMQzithuddugfW L6PQUjWDIgcE06Ro1ioHny Wk3bAELcZAC4HJTwxNAiL8 GjrF0gOySf WAPeAUBcK8TzeVFzSTvfY3 38NHxeSnV2GTJmapYrV2Lv HYZqyMopKoU4d9T8Hh8XUA gzkdo4E5If PjwvdHI+ZU98ABHkJR96zU BkuUQtr9zhsOc5YnFcDDId BRM9vJsjETvnt5WwQBZgI0 5oiWXxm1O7 IGNv (more content not included)... Normal [facility] Consent for Treatmenton Consent for Treatment [id number] 2099 [id number] Normal [facility] Discharge Instructionson Discharge Instructions [id number] Normal [facility] ED Clinical Summaryon 2021 ED Clinical Summary [address] [address] ED Clinical Summary Person Information Name: LEENA INTERIANO [facility] Age: 32 Years : 1990 Sex: Female Language: Sign Language PCP: BENTLEY LUCERO CNP Marital Status: Phone: [phone] Visit Id: Visit Reason: Eye drainage; Nasal [...] 06/18/2022 13:28:16 06/18/2022 13:28:16 06/18/2022 13:28:16 ADDRESS: [address] [place] [phone] PHYS DOC NOTES: MEDICAL INFORMATION: Prescriptions Given: New Medications [facility] 1985, [address] [place], [place] [id number], [phone] loratadine-pseudoephed rine (loratadine-pseudoephe drine 5 mg-120 mg [...] With: Address: When: BENTLEY LUCERO [address] [place] [address] [employer] ([employer] In 3 days 06/21/2022 DIAGNOSIS: Upper respiratory infection Normal [facility] ED Note-Physicianon 06-18-20 ED Note-Physician Basic [...] for 10 day(s), 20 tab(s), Refill(s) 0, [facility] 1985, 165, cm, 06/18/22 12:19:00 EDT, Height/Length Dosing, 86, kg, 06/18/22 12:19:00 EDT, Weight Dosing Rapid COVID Antigen ([facility]) Disposition Plan Patient Discharge Condition Disposition: Discharged home Condition: Improved and stable Counseled: Patient and/or family were counseled to workup, results, treatment plan and follow-up recommendations Discharge Prescription List Prescriptions loratadine-pseudoephed rine 5 mg-120 mg ER Tab, 1 tab(s), Oral, q12hr Follow-up With When Contact Information BENTLEY LUCERO In 3 days 06/21/2022 EDT [address] [place] [address]- Business (1) Additional Instructions: Patient Education Upper Respiratory Infection, Adult Attestation Patient seen and evaluated by the physician psychiatric technician assistant. Attending physician was present in the emergency department and supervised care. This visit was performed by both the physician and an APC. I performed all aspects of the MDM as documented. This report was transcribed using voice recognition software. Every effort was made to ensure accuracy, however, inadvertently computerized press writer mistakes may be present. Appropriate healthcare PPE [...] Results Rapid COVID Ag: Not Detected (06/18/22 12:26:00) Rapid COV Int NEG Ctl: Pass (06/18/22 12:26:00) Rapid COV Int POS Ctl: Pass (06/18/22 12:26:00) First Test: Unknown (06/18/22 12::00) Employed in Healthcare: NO (06/18/22 12::00) Symptomatic as defined by CDC: YES (06/18/22 12::00) Hospitalized?: Unknown (06/18/22::) ICU: NO (06/18/22::00) Resides in a Congregate Care Setting: NO (06/18/22 12:26 (more content not included)... Normal [facility] Comment on above: Result Comment: Elec [...] to help relieve symptoms, such as: ? Sjjs-ptt-vsxehld cold medicines. ? Cough suppressants. Coughing is [...] other clear broths. General instructions ? Take zibx-whz-okrcvpw and prescription medicines only as told by [...] and water are not available, use hand product steward. ? Avoid touching your mouth, face, eyes, [...] common infecti (more content not included)... Normal [facility] ED Patient Summaryon 022 ED Patient Summary [place] [id number] Patient Discharge Instructions Person Information Name: LEENA INTERIANO Age: 32 Years Arrival Date: 06/18/2022 11:56:54 Discharge Diagnosis: Upper respiratory infection Primary Care Physician: BENTLEY LUCERO CNP Provider Information Primary Provider: Connor Castellanos DO Advanced Breaker Operator:Grant Jacob PA-C The exam and treatment you received in the Emergency Department were for an urgent problem and are not intended as complete care. It is important that you follow up with a doctor, nurse practitioner, or physician?s psychiatric technician assistant for ongoing care. If your symptoms [...] Instructions: With: Address: When: BENTLEY LUCERO [address] [place] [address] [facility] (1) In 3 days 06/21/2022 In the event that this physician does not participate in your insurance network, please consult with your insurance company to find a nearby participating provider. Patient Education Materials: Upper Respiratory Infection, Adult A MESSAGE TO ALL PATIENTS REGARDING OPIOIDS PRESCRIPTION OPIOIDS: WHAT YOU NEED TO KNOW Prescription opioids can be used to help relieve chgrnoeq-dk-ulahrr pain and are often prescribed following a [...] be struggling with addiction, tell your health career services director and ask for guidance or call SAMHSA?S National Helpline at 8-552-860-HELP. v [facility] (more content not included)... Normal [facility] MICRO OTHER TESTSOrdered By: Olivia Garza on 06-18-2022 Rapid COV Int NEG Ctl Pass (06/18/22 12:26 PM) Normal [facility] Man Sero Rapid COV Int POS Ctl Pass (06/18/22 12:26 PM) Normal [facility] Man Sero SARS-CoV+SARS-CoV-2 (COVID-19) Ag IA.rapid Ql (Resp) Not Detected (06/18/22 12:26 PM) Normal Not Detected [facility] Man Sero Rapid COVID Antigen (FT)on 06-18-2022 Rapid COV Int NEG Ctl Pass Normal [facility] Comment on above: Performed By: #### 2 [id number] ####[facility] [address] [place] [address] Rapid COV Int POS Ctl Pass Normal [facility] Comment on above: Performed By: #### 2 [id number] ####[address] [address] SARS-CoV+SARS-CoV-2 (COVID-19) Ag IA.rapid Ql (Resp) Not detected Normal Not Detected [facility] Comment on above: Result Comment: [employer]? System for Rapid Detection of SARS-CoV-2 is [...] or revoked sooner. Performed By: #### 2 [id number] ####[place] [id number] ADMITTED TO INTENSIVE CARE UNIT FOR CONDITION OF INTEREST:FIND:PT: NO Normal [facility] Comment on above: Performed By: #### 2 [id number] ####[place] [id number] EMPLOYED IN A HEALTHCARE SETTING:FIND:PT: NO Normal [facility] Comment on above: Performed By: #### 2 [id number] ####[place] [id number] FIRST TEST FOR CONDITION OF INTEREST:FIND:PT: Unknown Normal [facility] Comment on above: Performed By: #### 2 [id number] ####[place] [id number] HAS SYMPTOMS RELATED TO CONDITION OF INTEREST:FIND:PT: YES Normal [facility] Comment on above: Performed By: #### 2 [id number] ####[place] [id number] HOSPITALIZED FOR CONDITION OF INTEREST:FIND:PT: Unknown Normal [facility] Comment on above: Performed By: #### 2 [id number] ####[place] [id number] STATUS:FIND:PT: NO Normal [facility] Comment on above: Performed By: #### 2 [id number] ####[place] [address] [place] [address] RESIDES IN A CONGREGATE CARE SETTING:FIND:PT: NO Normal [facility] Comment on above: Performed By: #### 2 [id number] ####[facility] [place] [address] Coding Summary.on 06-02-2022 Coding Summary. CD:[id number] Gh 0bWw+PGhlYWQ+VK1XKONmH 75xcVKscE7LL7iWHL5TWMN QLRTORG4FBU6lkDS1YSrgI 2VybiAv OtjbxHLwYM20YXl2JXU0yS xeKXqltG8zlKNjG3s7RqWj ZQ01cV16GEsxIXQbRlX6Za ZpbjsgbWFy N6bhRaQbjRSzGbw+PHRhYm xlIHdpZHRoPScxMDAlJyBz vBohCD3yRt4yGDQwBLSgdP xhcHNlOiBj d5doJZHoIHtrPS2dtNidA5 UffNG5UZKrj4b9Ji97jKH+ RJWtJPY1zLarXEvxc080Dn Kpz3kcBCC2 wUObGAeeXFE1G34se4A3ZL SpQBJrIXW7qNH1sX1qaTmo vaasK5SydXZjMoA8OAG8yA YglE0vlYrh nrtsxB9qAzt+L47RSF2MXE LQSV2MUou7S8BkUuotqQE+ FK04PEIfCB10bAWjeSWpj5 lmsPc1YiYv GLSvQEH7cGjjJTyst2DpTB HrO04nkELvn9R4ISQvwHnl zUSnXjBlkFJ2uU4yNHbajw vze9komfyd Efeku3lkje76zQ18Z96dDD bnIDOvNSO6MFWpAGZuzLap nd8rsG3fOo3+UBzne4ypt4 mqaQn6PpMo MBHwfeKwjYmvWRT6u9FtBx 77Z0WtmOytj7OzKdy9sz31 xAYym7X2jXQ8AZqrFBNvrL 5oPLmlXkM7 ZYXaDcPfdE51cJOmPBxjQd 8qjYcihFklNR6gFTGrqnrt RDGzyT1jPTPvwMNmnHatAD 4wNTBpbjtm z476WjXkBEV0SOAymBMqF4 UhaS0iWyYjXWRfEXDqV6Dn eABzSQppH165ZGbpEwN3HE GknqJaF3Sb SFXtbSskAhK9c2Z2Om6Bj0 UyoamtHBZ5VQzlNEB1XxV6 IhCtWuV8J7IzZqe8ZKZdvR hkYP8rG8Cl GSKdqguafmhffEN5GPQoBU EzaE29yVOmLSloDq1gq6F1 r286KOGcDCGjbB85Kh6olR ogMTBwdCBU aZ9wqhiur8lxxyiuMiDjOT MnKHg7NVe5ZLPknOvtMcHz WEP4OwS6MDJ8dGHkpM3btY lkcrlahS9j Oyc+V17yfQ1xSPX7RNO2eh ioNVBenqDcCO46BN60M7Rd PjwvdGFibGU+PGRpdiBzdH fbNL3oHbXt k7nke9AoHFxdD9GoJLEaGO hjIbi0YVGnKKF6bSY0hD3x FLOeIUhbh1W7fCB1A6Xguq Mksc2tc7xw JHMzPHgvW09ruZPtg9U5KU RtySD8TKTvlVxfJkHtiS23 Oyc+LRZbbOetc1JyGgsmq5 xym6bdxPi8 GzGiQQWjsvUgnOfmIBG6w3 LiBc05F42oTPjzXFRhDUWj QXVfJOHgmMsnzk4qdT8wTu 8+PGNvbCB3 fCU8yI8jLDMgJtA2HVjwL9 56EeNdkPLjPnhpk8ivi5xq eYx6XdUdVNBxjsIkpOdtJG K3w7ZoFw93 F65rMNymNABpZTKeHBLgBP DuqVffro0nwC3eDj5+PC9j f4kzwa02wJ63oCO+PHRkIH R9gUhvPFfg FNRquC8kGJbcIfG5HNVgKa WakS57aLVjXKvcQh3vgVbp yPbjAO9yVYVzkfjze850Mq Utp3eoKUWi bDNfLQfzDMN8B67lq1J9ZP SyAWQrZAV9yVF2fZ7gvElf bjogbGVmdDsgdmVydGljYW ibMYgkS568 IHRvcDsnPlBhdGllbnQgTm TmUOg8I6BqSxi1PBIerCmp VS5bcIPrXSunHd7zpYxehN ykQP6aEXEb jhvjq118XvHep2hnCRTsgW SpVDzqSJD3B68ux2Q0QINw UVRrZGQ0fIC3dR0yiVcvzh ogbGVmdDsg slWhdMmuEJuzMBbxX283TH RvcDsnPkJpcnRoIERhdGU6 DT07NC55gSVmr1S9oKU3K2 BhZGRpbmct sxnvyRA2PAQbRMJjpX18Fb 0hjTfxNe9jEJEoUCC5WYAm oJNzU9YdkT1rNmYeBMQxTW FeA6QnwOIl GKrpK998IVjcCgL8XWHqlh ZgX0MzBSCreJjmIvY5e2K4 St7CG8R2JE86UI49fMWlv9 C3tYS3B7Yd MYOywxfvxqussNJ1OFMyLL NqmL16Ee1fbZfzRd8vVURl MKW9QNFgdSUuU9ZncJ2aAv AjMDAwMDAw D9JvfOCxATleM295DGrcBy N3JAGzylBxI9DaOHNsbZwg GtT5h0J6Zy2PWKk3VS09WF 14cJMah7I1 mBV2K9ZdAFGklhgczzndkW R6GUNnJZGhsT36Ou6avCwu Id6eTMUrYQR1JHTazLBeN1 NkuO6xYnWu XCWxTFHtW2ZczLShNFolT4 09CXnhImR7TNGpowQcD2Ls YLTabYckUtZ5h7M3Dy7BXC HkWX19WUM1 iIJ7ED63BS43G3QrIowtuB FibGU+PHRhYmxlIHdpZHRo ABkfDSLdLkDfnXgqWN5oVv 9yZGVyLWNv yTgnoBVlDrWfv4edCSPeOR jfFZ3qlLocJ8WehAP3XIBx c1k5Du74N72uL8QmzDD+PG LqiRW8xCH9 rC0hYrVrDoC1AAaoJ253Zo SuuLTlZhysz6whu5zbxLg8 MmJ0BYHmmyTeoDrpXIQ7v7 YiKb61F33h IHdpZHRoPSIxNSUiIHZhbG jilv2cjZ6qUe2+PGNvbCB3 kRZ2fN9hZyLeCnB1HFirL2 49InRvcCIv Yjwjk1nmg6xwsFm4CnAbCV QcuqHrhPlrXEU1e9QyGu03 R8LqrOogx1CdFnb8cf39cX Gpd6H6fQG3 Q7JnSKVbywpggUCmaJvnOH 0mSSOzuezhMIVdeJ8oIQAp F5y7UxFcNfR2GUoeE5Iiwm M9JWOycCFp HRlcDCG3C08jp5S3SUVuHV VbPEV3yPH7nR9uvTvldjxk bGVmdDsgdmVydGljYWwtYW amQ376FGCt kPtkQFVejU7hBPIqpUOmkO kkVX3kRPNwckatIzeHBUcn IEpBREEgTTwvdGQ+PHRkIH Q1qUqeSVhu WUUeqX5lMBCkZ1y1UxTbLl O0VTrnK0UaMUKfwibbBi24 uO3dDuZpTqY0DEwyL5Bifq V2FJSizNWn QZglWTK3T19gf7Q9MHPoZS JkBGG1aHV4wI4hgVmbjwpi bGVmdDsgdmVydGljYWwtYW qvY632GOZk lSnzKlL8LkI2QzX4NVX9X6 QwBjo2ZXXxqCktBG1crHRa TSzhMj7shTytnQjoKM1aNI BpbjtwYWRk sC6lAZCbdPRygPamGJ3cSS Fuhejwn853JbPlNMV6XKUf zWLtX7ExxB9iOxGkZPQuNE EwU6RibXKx FYufB741BJziUmA5TJStgo VpU5GlSFAcdRcqOcM5d2R8 Du3aNWVZXVUngndnnGN+PH OiGKR3oXwj DAstGTUrbI5lYKCyV4z0Tr UqKpB7SYviQ6JoCKVkbcfo Ig94tC1yNlNoYdY0WUhmR8 TyzbC6KHRd mAEbGJqaDUG6E86gf0B1WW CtDVRcHHY9kOP2qR0ljDyd bjogbGVmdDsgdmVydGljYW ucUFczE544 IHRvcDsnPkZlbWFsZTwvdG Q+RHQqWJA0mHxiVKoaURBt mE7yNRMyF0u8FhYfToA8OR yyC2TwYHRd euacCa62jG2qAyBlSlT9KK hnP9VrcpL4JEKycZYkRIdj YJF0I27xj4V2OHUfQVNyPT R4eEF4cX8s bGlnbjogbGVmdDsgdmVydG buAJhdLBdkK073IBQueXyh GjYmQKYkAL0wxLhdzBX+PC 76ci99I5Yy FjssSqo8SYKaHED2hPC3bA 9nDNVcYLllc0X1sVB5E2Yk qxXmxf9cw9hqGPLwWOagX5 7vrDQwr1B8 ECNzmBE6MCVjaZqhDrRoeG 93Oyc+RMAzjAole6HfUbul x4vcl5zhuIw4CcHmBZYlzb FsaWduPSJ0 g9YfJs03H75gPGwnUVVnJE DlYRWzCPNhcPcrvn7onK4x Ii8+AHViyYE6pZY5bR5zCx MtWvC6HJzf W493WlBtaWLuKmmjg6fia1 eryTf3SkWvWPNttdVytChf HKT4a6QzKx26X7HyyRrmd9 VzWck2ff40 nVUnp1X8zBW3R6AnKQGzcd begSMqwRmtYH8tBWDafsvn ECAhdA1zIOQvI0z5QuJdBf X7WOkzO3Ag xxT5WHKpiICcGLKzrEPFhJ 5awwpzu1rfowofMvYbSECq SWb5JRa1VTAzrGyuDpUmLW O7GcC6KJA3 dKZsbE2khHdmmgjnjD2mZh c+RUd0q2ftdZMeOB7okKG5 AB77XJ43fWLsg8K7qQW0D0 BhZGRpbmct vyorrIF5ZPJaGMKnmD73Ny 9jsPzdZq8qJSZbZHO5TQMl cVLyZ6StcU4hTyHdMHGaNZ NfY2SaiZHc LSimC067IXxjXkY8MDIdgw ZgX0CrZHXryYhuMwS6l6N0 Ro0OPZ89OT47LF05nQVcs0 M0iTP4G9Xs QTGvxesupnejyLB9UQKeMG VfoQ02Lu7vsXyvQf6zJOIn UUK9MJRbvNUfW5BigL6hQm AjMDAwMDAw A0IrgOUmVBcqB569JJilRu L0VVJlpqCzO9NkQAZwfLnt VlC8w9R7Dk9OGo97PJ03VQ 47jUHdy4C1 uHX5L1PwQLZuwvfozmkoaV N9AVZeZAAwrJ91El6rfBiy Hc6mMCMmLSW3SENlpAZsU6 DwyA0wNhVs RDUyAEXwU7RmlYUgLPahY9 89TMqaLzP4CGDwcbRaK1Ec DLEpmWrlKmF8z7Y0Ut2RKD rxwaf6E4Uh PjwvdHI+HE61DKZhSK43fI IspAKak2whtGt9XqDcBHBw XLW6vWnnVTeow7ByRMYoP4 7beYMuy6M0 IGNv (more content not included)... Normal [facility] Consent for Treatmenton 05-15 Consent for Treatment [id number]#1.0 0CD:127 Normal [facility] Discharge Instructionson Discharge Instructions [id number]#1. 00CD:127 Normal [facility] ED Clinical Summaryon 2021 ED Clinical Summary [place] [id number] ED Clinical Summary Person Information Name: LEENA INTERIANO [facility] Age: 32 Years : 1990 Sex: Female Language: Sign Language PCP: BENTLEY LUCERO CNP Marital Status: Phone: [phone] Visit Id: Visit Reason: Medical screening exam; [...] 05/28/2022 11:50:13 05/28/2022 11:50:13 05/28/2022 11:50:13 ADDRESS: [address] [place] [address] [facility] [id number] PHYS DOC NOTES: MEDICAL INFORMATION: Prescriptions Given: New Medications [facility], [address] [place], [place] [id number], [phone] cyclobenzaprine (cyclobenzaprine 10 mg Tab) 1 Tablets [...] Adult Follow up: With: Address: When: BENTLEY ENGLISH [address] [id number] [facility] ([employer] In 3 days 05/31/2022 Comments: Call the [...] left-sided sciatica; Headache; Other chronic pain Normal [facility] ED Note-Physicianon 05-28-20 ED Note-Physician Basic [...] back pain. She is deaf. She requires level designer. Med student who accompanies me is fluent in sign language. 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 No indication for imaging of a acute [...] pain, # 15 tab(s), Refills(s) 0, Pharmacy: [facility], 165, cm, 05/28/22 10:56:00 EDT, Height/Length Dosing, 86, kg, 05/28/22 10:56:00 EDT, Weight Dosing ketorolac, 30 mg = 1 mL, Injection, IntraMuscular, Once, Stop date 05/28/22 11:29:00 EDT, STAT, Start date 05/28/22 11:29:00 EDT, 05/28/22 11:29:00 EDT methylPREDNISolone, = 1 packet(s), Oral, As Directed, as directed on package labeling, X 6 day(s), # 21 tab(s), Refills(s) 0, Pharmacy: [facility] 1985, 165, cm, 05/28/22 10:56:00 EDT, Height/Length Dosing, 86, kg, 05/28/22 10:56:00 EDT, Weight Dosing naproxen, 500 mg = 1 tab(s), Oral, BID, PRN for pain, # 20 tab(s), Refills(s) 0, Pharmacy: [facility] 1985, 165, cm, 05/28/22 10:56:00 EDT, [...] mg= 1 (more content not included)... Normal [facility] Comment on above: Result Comment: Elec [...] instructions at home: Managing pain ? Take nvlc-yxp-xuiczgb and prescription medicines only as told by [...] most common (more content not included)... Normal [facility] ED Patient Summaryon 022 ED Patient Summary [address] [address] Patient Discharge Instructions Person Information Name: LEENA INTERIANO Age: 32 Years Arrival Date: 05/28/2022 10:43:04 Discharge Diagnosis: Chronic left-sided low back pain with left-sided sciatica; Headache; Other chronic pain Primary Care Physician: BENTLEY LUCERO CNP Provider Information Primary Provider: Connor Castellanos DO Advanced Breaker Operator:None The exam and treatment you received in the Emergency Department were for an urgent problem and are not intended as complete care. It is important that you follow up with a doctor, nurse practitioner, or physician?s psychiatric technician assistant for ongoing care. If your symptoms [...] Instructions: With: Address: When: BENTLEY LUCERO [address] [place] [address] Business (1) In 3 days 05/31/2022 Comments: Call the [...] opioids can be used to help relieve qsezumto-vk-vaxnlq pain and are often prescribed following a [...] amounts or mo (more content not included)... [facility] Prescriptions/Work Noteson 0 05-28-2022 Prescriptions/Work Notes [id number]#1. 00CD:127 [facility] Consent for Treatmenton 04-14 Consent for Treatment [id number]. [facility] [id number]#1. 00CD:127 [facility] PT - Assessmentson PT - Assessments [id number] 04 [id number]#1. 00CD:127 [facility] PT - Consentson 04-24-2022 PT - Consents [id number] 04 [id number]#1. 00CD:127 [facility] PT - Home Exercise Programon 04-24-2022 PT - Home Exercise Program [id number]#1. 00CD:127 [facility] PT - Home Exercise Program [id number]#1. 00CD:127 [facility] PT - Otheron 04-24-2022 PT - Other [id number] 04 [id number]#1. 00CD:127 [facility] Coding Summary.on 03-26-2022 Coding Summary. CD:[id number] Gh 0bWw+PGhlYWQ+CN1GNPFkI 31laWXqmK1QT2yWOP3HTCX YLMEMIX1ZRC2boAH5XXtbB 2VybiAv QuuktOItZA14VZf2XPB6gE rjWKiozI7ulQHgQ0i3AxCp FE15bS42JFxkLTUpRaA2Db ZpbjsgbWFy A8fbUyHczTVcFwa+PHRhYm xlIHdpZHRoPScxMDAlJyBz uYigTS4bKl1vLOWfZIYsgH xhcHNlOiBj p3iiOBQuUCiiUU1uxMbsI6 VmnNF7RFKxu6s3Rf31vQU+ DVNqNLR8bRagYLpyf674Bp Bxw7woUJW4 pSApGZnhQOJ5Z52xf4C4SI DyASIfSAM1wRC0zJ6xhZfq ndvwB5QozIKfOmV8CEX7oY TwlL0ugDiq xnoimS5sItp+N26BAR3DNZ JPQI3XKuz4Y0FxVaqueRQ+ ME92DLNaEE70gZRqvDGbh6 ewtMo4UnPo GCQoFWB7gUcoEMrzf3QpDY MiX73ykLQjh6V8IUUhcZmi jIMqHuXssEW7xP5zCEoslc rva8ongldx Lczan3jibr13cF29I84kJK wzVBQcPHN5QZWzAPVbeTur nv8ttS3aWi1+QNcyn0esd6 vobSc7FhGx QFZsrdYqxUfgMRU1y1KcYq 49G1BpgVgom3LfTey9ac61 bUPux2K7xFP3FIxlGIDkoL 6nUElbBeZ2 SJNkBtZkpM88bVZxLVopGh 7daUndeRfzRR3qENWnatlh SNIghI3aNZBsgJJkxGtpCH 4wNTBpbjtm l842LpVnSZW2FWGakZIpL3 XmcB7lQvBmKLAzUPWuK5Sn gUWpESnlI886EEfrZsE7GO RkwnHiZ1Qy ULXoyOfgCuE1j2C6Yq3Ve0 TazxqbGDW9PRqpJDE2VrNa HvKcPfN2A3LhCii2UIJywJ glBX3mG1Mc UPIzrdlvqzfcjVZ4NNTkZF OmwP70tPEuCGezLd0se9D2 g029DNJuNXZqfX34Qz4fmZ ogMTBwdCBU xN2ixrexp4teclnaKsZqMQ MxAGa5JYj6BLKdeNbmSzRb FLX5OyE6HYI8sPPlbC6dvQ xpkfmueZ5a Oyc+O46gwL7kHSJ8UHZ8no ejNSDkkyHnJI77DX02Y1Hc PjwvdGFibGU+PGRpdiBzdH esRA1oPsAx c1zzy9UgILsqI2EhUIJfQP krAoo6URFvHLH7zBR9zL7a VPOfMFtji9D2gUX5J0Glvq Anvu9ed5no TYDlSDwyP08gzSFyl1W2KL QnmNU0ELKzzKfcRxBcjP75 Oyc+KIFwiYuwz2ZhMutpc2 ddi4eglId3 ShOvDXIcuiCfeXkxOCI9a4 WmGf60M40jPNgpNDJnLFIq KZRsERDjoMtjxh1phR5aDp 8+PGNvbCB3 vOV1rS0eGALnKfA3AWipW0 38ToQphEObVfbuj3tlk0xt pZt6AfFpNQFqtxObkMnzEO W2s5QxJk87 M83wASslKPLtQLSyKGGdRV AtiInjgu3haG3nMn5+PC9j y1gzpp06rP93bHM+PHRkIH M8qVqqXUaq FWKguE6bFRskFdS3KVQvKy PiaU58xJCwLIftGo8xbMyc gMpbQO4gMEKdbuzgb311Vy Dpb4cjJZPn eLDrYNsdUFC0W93zp5B9SJ OxSRDiELW3wGN2eQ3nwUko bjogbGVmdDsgdmVydGljYW ekQZlzR053 IHRvcDsnPlBhdGllbnQgTm CmGWw9Y0IhEew6NSNoxKfz AU9xvFVnFIhrCe6mkEqtbX kmBP3vDRCc xatwn368SvVob4jkUITwmV JdWJyhNCH6R87rz6U7ZYJo VDChCUV2mVQ6zN4ioAvcyf ogbGVmdDsg siSckCvnZWfbLCrqV822LA RvcDsnPkJpcnRoIERhdGU6 JY86FU86yWOhn7M8aDY2C1 BhZGRpbmct csbgvUF1ZMYoFZYtiI48Bz 5bdDlqPf7rWVAnPAY0ZSJl yBSjI3NefP9hPvMtCSBzFY OrY3HxfJMx BMakL978JJxjEpB3RSGocx HfM4GoAMWfjLgjHeR9y2C2 Mn1PA6I4WD17AR29zSPdt4 Z5jCL5R7Vw KONkqglzbvbxuBD0YHHgYE UteC07Oa2seRozPe6tQDOt YPZ5YKOxnOFyE4MpkA8qTi AjMDAwMDAw B7WynSJhOBjlR600OFxhEj I8FAHtuxAwT8XgOXHemUaz AzG1c8R0Pt0FAEr6MH67WW 54jKJty1B1 jFQ8J0WzJCJimbhfatfhlE N2JISpLGObgT04Yv9qwFxi Fq7tAINiFDF9EHAxlODaK2 CrnQ8vUpZf BOEoGYGiO5KwnYWkMMufY7 49RKmdJcL5EGTkenPzR2Qi VXCcvJfaDpK0z0E2Iu1DHL ZpTA83JBG0 iPS6CW82LC15O0JtVzfzyL FibGU+PHRhYmxlIHdpZHRo UVvuAUElTpKsbNenHD5pNi 9yZGVyLWNv jEicbKKvBpSia9lvETEuEM cjGM8ihPbyL0ShlUG1ZFOo a0m1Vn60T54zT8DtdAN+PG AehNT9aXY9 lX3dSuQbYbE1MZxnE556Ad ZibWTxTddxa1kqp6pthGh8 YoN8MKEtplZekBoyFHS2m6 IwTa04K22b IHdpZHRoPSIxNSUiIHZhbG ianc2nyW0iIs9+PGNvbCB3 zTX3nM1mSbGpIpZ9SMobO2 49InRvcCIv Dazev3wwn6cquNm8KdPfZF XuxkSstPvmNSA7o0ZlGd73 E2JbzEgqe5VkVfy8xf95eK Zvt9Y0yDM0 I7PfKFWbhyusaHKewJauFT 1zDPAgzdgvDWRqjF6fOQPj X0l8ImPcLgY1HXuuV9Zvqn Q9BZNhnDHz GUvwMSR6O35if7D5EVAbTD UnHXN3vAY1jN3cvYhlobrh bGVmdDsgdmVydGljYWwtYW cbP579TPAr dYlbECSdpP6qNZTysWJuqF jqEY7wFPMbqpreGnhWFPcv IEpBREEgTTwvdGQ+PHRkIH X5qAnqCIfw RCJuaU9mIXXyQ1f9YnWhVw U5ERqbE2LrDLCsiaolXq50 bH8aHfJmZvK5JXsqI6Slny A1YDCpwBIj BVqkLDF6D12eu6F5RGDyAS OnXHQ0iLL6aS5xiWlhkswf bGVmdDsgdmVydGljYWwtYW ciC739EOAb jBtjZfN9SjX3LyE7SNQ5Z3 AqVxa0XHTpcJpnLQ6ebSZk WTzgGk8mhAnnrFcgNO6zVB BpbjtwYWRk xC2vGZMgkAAcwNjnIG9uQM Fotqqnc148VvQdFLH5ZDTl dTFqN9UkaA5vLaAsDCGjYL WuN1OatDYd CIkcU885ANqjDyM1KLKfws HhU4QtNMIdwNmmXbV9x6S0 Li6pZMJYORYyweygaAE+PH MbKFZ5hEtg KQqxYTXliR8nTPJjV0y5Lb TeJoH5BFhvR9NxJUPtyyud Lw71cA5sTuZuCeM8SJcwW8 WrmwO3VCGx bAUyXOtlCDP7F45is6F0AN UoLOAtPYW0tKW6gR4eaLtg bjogbGVmdDsgdmVydGljYW bmCYhsL434 IHRvcDsnPkZlbWFsZTwvdG Q+LMCjIYN5bWbkNJypPIXp gJ1yTQOqN3i0NzYcRdY3TJ voU9XmZNCi ijdhDg31kJ7vXmIeStE1EC kdJ0IabjT6RSKwyRSvMJgt UGX7V13vl1B7VDEgYIUsFK C4dRT5cQ7m bGlnbjogbGVmdDsgdmVydG uxFIccPTvmU617JKZihSzx GbTsA5YlnwtdWanajVH+PC 99nz55T3Ox FzsxFho8VRYkDAX5wEI5iC 8xJINvKAvaz2P9iLE0P0Nh nyUmna9mb5egQANaEGxaW4 2kiDCpq9V6 XVYqlDY9LKEypKklHhTukD 93Oyc+DNWcuDaem3SaRczu j4juf6nqaUz9UyPgFSZeas FsaWduPSJ0 k3JkCf84H90rCVyiRNKzOO DoKCNeTDGicBiena8omM2c Ii8+EVIofHN3bNW8nB5rXa OmAgC1KWqu C197YvExuDVmAbnnx9iyn6 ciuQc7HuLdWHRbnmBlwGix TVM5w3QvJb47Q1SqbZufl7 GtXfr5ku07 nXZla1U3hWT6R6QaWTSsmf jeiIIcfBnjWG3iJLCnuvou QPPmgJ4sWXHjP5b5NrPyZq E0IWufC2Fv uhL7JDUlpCLeDYVbrZPHrD 1oxlmax8letoopHfHdMGBz WMy8BOl2NHLrqFaqMnIkZE B5YcT7JWA5 sKAaaN6lcZerahbiqO2bTt c+CLb8y7cukSLdBX5yiHV2 MJ58RK98aEJzo3C2fFV3V6 BhZGRpbmct nerdgJM0HSAgQEZzzX32Fj 1ahPuaIf6wZTGnWPV7VTJi iDTkG3KnsY5qTxFcTFHaXP PgF3IayCCc GUxmG016IFwvLgA9NBMjpb VpB7CjAQPahLmyZcL8q6S8 Ik2HWV82SR56YL32pGXnv1 Q9qFJ2B1Vi KKQmouidkormdIM9PZBvZG AkxS58Qr0adWeiTk6wNPRl XSP0IYXrfRLrU5IoiW8fPw AjMDAwMDAw D2ElxSYrYYeuI173MUrzXj N4OOZzvwVsE9DfNDIbhVli XdU6c5E2Xp7ICp80YH21FB 60iZXwv9F4 lTM2E3FeOUNjmkzimidccD G9RZMnPYSqvH58Ae4xvGbl Fz0xBJZnUEP1ORBysMAxE8 FjmZ4xZrAk LTMpVQZeD8NcdAMhJEjqV6 86VEcxIeO2AWJuyrCsQ6Xu UYVetKheVmF8i2R5Mo8WFQ ltorh4C0Wc PjwvdHI+JP28XEMgKY82hZ IsvSVfw3kmxFg6XnVyKREm LTQ1mQfqPEfao3AsUSNpM5 3thLHzp0P0 IGNv (more content not included)... [facility] Outside Recordson 03-14-2022 Outside Records [id number]. 05 [id number]#1. 00CD:127 [facility] PT - Orderson 03-14-2022 PT - Orders [id number]. 05 [id number]#1. 00CD:127 [facility] Coding Summary.on 02-25-2022 Coding Summary. CD:[id number] Gh 0bWw+PGhlYWQ+OC4GLSDxP 29ziEHejG1ZJ2aHBN1JNWQ ZJIMYEC8GPI7ohCJ6HDxlC 2VybiAv WkhbdAPhZV09WHc0OUP7uU rfSLkxoO4kgDTjY0j6EoQm VH44vT20EYqvXMUuQiM5Yb ZpbjsgbWFy F8gsUaPsmCAjLcl+PHRhYm xlIHdpZHRoPScxMDAlJyBz nXhpZX9jLp2oDTVhLDLvhH xhcHNlOiBj r2czFLYwGXckBV3xsTpgC0 SjiPN6KKDbh0z8Ge14uYG+ TLAzXRG1jCxjJWbty646Lb Hav2vtZJM5 qMJhDTrdYPL6V81fv1M9XU MjIWDuYXH6bFF1dT4xeIza wklgA0GbcEQlGgW6WAU6iC EjjH0vnOzp ymcwsV6wRym+G51FRT4MYH IZVY8OLod0R8FrOfutjNR+ OV08KONpOR88sJZysYFdd3 uihEg7FcAe XWLmQTU3cJhnAYirt4FpOX QbI00udBClf0I1ADNjlGpc dWUkZcZtlWL2vW1aRKldqh ozq5hkzmri Xgthu8ingl34uM05O79qMD xmXEGwGRQ8GUCuUOAsxGgk tp0yjL7fVl3+UUimu7olk8 nxzSj9CqCq NQQiaiLxkIrbWJG9g6MeWk 47G6GnlAsbz6XbWrc8jq65 kCYdc1L3yDG6BLnpEPWuaJ 8mZPyvKeT6 CXSkKxPhgK75cIEoQRepYz 8meEqioLolHB4nKXJgtsvq DBMgzY1tZIGykFRhxIopBP 4wNTBpbjtm a812XuYpWIC9LQMrhAIzC2 JovW5lWbHiBZDvMKFcJ1Uv vSBiPCboK511YInhErN6QB AxroNzE5Qj EZYliNzuYyX6j5S6Aa1Oh0 GvchxjDQW1PTbwILX8HgD6 SmQjGqR0C5UaXwx6PDWcfG gnDE0qN3Np DVUpgjnkkozzhVU7AZTpVO ZfxO16zWGgQHxmLh2uf4I1 p293CZPjNHCghY40Nf5glM ogMTBwdCBU dO3iwpesu4kdhqkqAdSbKI CvVCf8SHr4LHXisRfoXtSs UKS4EfS0UCQ5qRUvwC0cvV jnmzwhnL9p Oyc+R09tkA5yHFJ9HMJ3wt duFVFhhcFcQB22GC27R5Pm PjwvdGFibGU+PGRpdiBzdH zoOL7bRoGr r4voy6PlOFcfD1EpSZEkRI wxVsq1YFPsENZ8jCC4yJ2d MBQpJWvih4A7pVH0J6Vmvj Ukyj1jl6ta ZBYzZXniW36lyTOrz4B1OE HatMY5UOThmYjdWtPryE35 Oyc+ZRStrFryp6ApBprqh5 nxl0ijbYy1 ZpUeEUNdmuNjfBieNRT7s3 YsSk67H45gNWesFZWwLHLf JPFxCWKioBonwi8tcO0jUw 8+PGNvbCB3 nSB9nT3vBFFzBiV0XFkdG5 39GhFbuEHhUsbss6ixo5nw mKf6HcSaWXRzioSeeKkgHE D7r3GuRr68 D65uXIrpDUWlGZZaSMUvOF EabDufjz7bsN0pDh2+PC9j b4fdnb45fU30mFL+PHRkIH P5jUipEZzp VZNexL5yTDifSkB4BGFzDx AspS95uMWjWZklDj2axOtx kMtgSC6rCXRciflxe052Ux Glt4rwAKPz fKOvPFdjTQG9S59fk6C4SP MgWVGgIQK7hHQ5yA4byQgp bjogbGVmdDsgdmVydGljYW uwUTqgB647 IHRvcDsnPlBhdGllbnQgTm SvVWy6D1OrWfl6FNJbkSih KD4arEJkTBktYd1lbWebiD poEM8rPCAv yffml140PeQqv7tdMJJesF YeMIcoFKD6A28om9F8KKFs QVPxKGX8uPS4vA0eyNhgzy ogbGVmdDsg ncUtyWpoPGglLVkfJ633YQ RvcDsnPkJpcnRoIERhdGU6 LL80EL74hNFzk5A2qRL6I2 BhZGRpbmct ryugaWF9LKLjLUAqgU29Fm 2exUcyXz2cRHVdQRG5BHZs aVTrK0BebZ9tZdAfMXTmIQ ArB0OaeOKm CIfjQ599DEboYdJ5RLPprg TjY9PzVFRlbMtsNsL7n7W8 Cg3BY1H0AG79DF62jGMwp3 A9dKX7L1Hj PNAlxedceiypcSB9EOHyJA BjhY05Vm5mcIdfQc8yOJHt AGW4NPUkeALmT2GygO1hWp AjMDAwMDAw M2VawIRyEErsS025WQwiDe V8CAViosStU1PxBGCfqAiq MrQ1f4L3Bd7ZLXg2DK39MA 91wDHox8W0 uJR3S9JbAJFmjwpbrikczJ A9HKEfROCcxY71Lq4xfEhq Nq2lBLFiUQY0RCQxrYVgK7 SowA4mSgFl DSEzAHPbO7LxmPUaFYiaQ4 32BQylOvY4WOReoxKjW0As HMBzmSqkHtN9n2L1Qx6DMD BeHM51FBM5 gSX8GN94LU11W6NqPrzqwG FibGU+PHRhYmxlIHdpZHRo JSzcYPJjMsLobLvkFS2qAa 9yZGVyLWNv hFohvMMlQcQuh4rtCXLfRK hpXP6ggIazC4NfvUH9FAWz k9y5Ay76L22qL7CxqNA+PG RwuJD2kNB0 nU1aWzJdAlB8CJknU384Ia LapPBsVpkiw7ncw8jslAf3 ZtM9EOJihdUnjLczDOC2l3 FuPg04G37v IHdpZHRoPSIxNSUiIHZhbG rjcx5umN8rFo7+PGNvbCB3 pVZ4cS8bFjQtOeC6SNeoP9 49InRvcCIv Ukzee4fnp1tltNw0GuTjSC IofpBihBzjYDS9n5MfJg86 U8FnjJsyg9PeZbi5qj23qX Mcl8W0xSX9 H6DwNRVfxulllBJayIvnHG 3nSQMctahfMKZkxH9eLNZp N2v5GhRsQiE0PGybR4Rruo U2HWPeeZTg EFakOJE0S34xq9D6QSKwYY VwLXN7yNU2vO8jmXgjzoyz bGVmdDsgdmVydGljYWwtYW pyG455SFWz sWnxLRPvrN3dJZOrfZKrhJ rqPD8hILQsjrdlBtiXXLyt IEpBREEgTTwvdGQ+PHRkIH V6wSbaDNdc DTFjvB0eFLXgE0u5MiNkGi S3IPhnC2XbOICzlgshZq54 xD4jJgOeKnQ4LNnhE3Wzfa I4YJRxbVLk SFysHMI5Q07cf2M0DNYaSP LkRWS9qHE6eA5krIcsbqds bGVmdDsgdmVydGljYWwtYW iyT979QQLp qSxkIeR6TpL9GyO4FVU0Q4 AfFba7OHTivUapCE7vgRDy ZAgmVe9gtGvfcNgfHR4mPW BpbjtwYWRk jA5zUHQuaQOnjVyjKU4uPM Kjmdzxz867JjSkJIJ6WVWx tWIuC1AxmH2nAkCkCXYhEL TrJ1WgcLDb WHtwQ455RIztOjP4UZLuka XzL2NiCIWseHpdKbA3l1S0 Kz9qDHBBAJOclczpbET+PH GwSVT0wLeg XWdnIPCwyW4vYWDvC5p0Pw QbZsQ5CArqG3NzUCHisdzx Vn01iW8dImZkYdO0NDyeG7 FvgyB1PZHr qORyTOlaBPQ5X39hu8E5UP KbQWJrQHD9kSV8mV6vnObl bjogbGVmdDsgdmVydGljYW qtRXkwU363 IHRvcDsnPkZlbWFsZTwvdG Q+CFWuLLI2nBwbVJhsYXOz kP1zVRGeY8b7YeWnIdN2RU ytS5ItLXMf acijDh16hL9eOcAwWxW9FJ hzH4SngnT5HYFmlJLhGFlz HMP2B03vo0D4EBZoDVSlFX I9lVF0uD7m bGlnbjogbGVmdDsgdmVydG ujFWwwUHdlR042FQHsrMxv RlLrIFZbBB8nqWljpYU+PC 25wy25Q5Tl JtwhLbg7PYAbDUA3wGB9mW 4mWVVaDIuqg1J2fHR3N0Ac cfUlka9bv7ebWYVjMKpxU9 3ytVIuq1S4 MXXreLZ7FSNwsNkmShCucH 93Oyc+TLFqyRvzn2GrYlej j1wfg4ediRt0LfRsYSAlut FsaWduPSJ0 s3TtWz53J55jPRhgKSRtTZ RcUCOpXEBoxKseqr2krP5m Ii8+GOEnxQY9xUM0mL0qNn AbReQ2XPuq Y342ToEneRLjYxeqh6phr3 uifDn8RzWyKBAdesWjuFok TGI2r7HaKp71B5VgeAcxu6 TsYio3iq35 dEWub4V9nER8P4XmFWOsqg ycqJPxdIybFG7dYSOlrpnj LLKetA6gCFUbJ4e2HfRgOq F0JCsjR4Vf zpC2JEQgaAIoCOUjeTCPgG 4myjeiq4izglpfIhWrDKTt UHj7ZDt9IVHsbSrvWtBhAO W5KuG7OMR0 qRDvbZ1pjRkxwlihcQ3rAg c+LIh9a0jwjXMcZF3cmZN3 OB17EZ40wAPzf8H1lRW6K3 BhZGRpbmct bunhbIV2HUKcOELekB68Gk 3aoMjtLc8bWTGuLQS0RTGv aHFmS3RdmN4qGoTaQMIuBO RzL3SupPKq ECqcQ661WVbwMcX9OBVxuh SzM1OgQHYjyKflJtM0t4V3 Aa0IDC51QW99YT27vFTgb5 H7iGT3D4Jm AWLrfaikehzabTM2OGIuMH JbeB76Nz9kvSreFs8vQMFa UEP7RTCzuBSuD0MspU3iGn AjMDAwMDAw T7GoxTSnZCngF633ZIuqQb N1KVHsorMtL6StZZMkpKjw JgG9s5A0Rz8IFb09EU05OZ 97kHIwf9G6 lUJ4L0NqHQEziivflocqgI A7HDVwJETcfW32Tz5uvXaw Yg2cEYMbKJY2GXOdzWTrE6 GzdY7gTtIw FCJrHUUkY8ExgCXhBXyuO9 65VGnqUcR1HLKiwqWuJ8Zh MLMjdQwsEsW3v0H6Eb7HUI cgnes5E1Yk PjwvdHI+JL60UWIxLW29iU TkmBJwy3znlYs4BgEbZTSv BRL5yTivGIdwt9LrOMSmI0 7bnLHry7S0 IGNv (more content not included)... Normal [facility] Nonvisit Note - PTon 022 Nonvisit Note - PT Pt did not show for this eval today. ljm Normal [facility] Auto Diffon 02-16-2022 Basophils/100 WBC (Bld) 0.8 % Normal 0.0-2.0 [facility] Comment on above: Order Comment: Order Added by Discern Expert. Performed By: #### 2 754610, 2626171, 2414329, 85927651, 31090829 ####[facility] [address] [place] [address] Basophils/Leukocytes Auto (Bld) [Pure # fraction] 0.1 E9/L Normal 0.0-0.2 [facility] Comment on above: Order Comment: Order Added by Discern Expert. Performed By: #### 2 422735, 9962939, 3144027, 94184361, 09622971 ####[facility] [address] [place] [address] Eosinophils/100 WBC (Bld) 1.8 % Normal 0.0-8.0 [facility] Comment on above: Order Comment: Order Added by Discern Expert. Performed By: #### 2 778071, 0733955, 7062406, 09949333, 90254403 ####[facility] [address] [place] [address] Eosinophils/Leukocytes Auto (Bld) [Pure # fraction] 0.1 E9/L Normal 0.0-0.5 [facility] Comment on above: Order Comment: Order Added by Discern Expert. Performed By: #### 2 168255, 1599357, 6865269, 74688791, 24660448 ####[facility] [address] [place] [address] Lymphocytes/100 WBC (Bld) 21.0 % Normal 14.0-50.0 [facility] Comment on above: Order Comment: Order Added by Yasmeen Expert. Performed By: #### 2 444177, 9621628, 8658305, 99985256, 81129735 ####[facility] [address] [place] [address] Lymphocytes/Leukocytes Auto (Bld) [Pure # fraction] 1.5 E9/L Normal 1.0-4.0 [facility] Comment on above: Order Comment: Order Added by Discern Expert. Performed By: #### 2 995618, 3417515, 6913762, 05801410, 06334296 ####[address] [place] [address] Monocytes/100 WBC (Bld) 7.4 % Normal 4.0-14.0 [facility] Comment on above: Order Comment: Order Added by Yasmeen Expert. Performed By: #### 2 574207, 0861058, 7406162, 46742659, 83768464 ####[address] [place] [address] Monocytes/Leukocytes Auto (Bld) [Pure # fraction] 0.5 E9/L Normal 0.2-1.0 [facility] Comment on above: Order Comment: Order Added by Yasmeen Expert. Performed By: #### 2 393798, 9898686, 0387823, 88203131, 49363362 ####[address] [address] Neutrophils/100 WBC (Bld) 69.0 % Normal 36.0-75.0 [facility] Comment on above: Order Comment: Order Added by Yasmeen Expert. Performed By: #### 2 355643, 5563696, 7998821, 76902293, 46628616 ####[address] [place] [address] Neutrophils/Leukocytes Auto (Bld) [Pure # fraction] 5.0 E9/L Normal 2.0-7.5 [facility] Comment on above: Order Comment: Order Added by Yasmeen Expert. Performed By: #### 2 470905, 1454321, 5216926, 82415232, 11464135 ####[facility] [address] [place] [address] CBC w/ Auto Diffon Erythrocyte distribution width (RBC) [Ratio] 14.3 % High 10.9-14.2 [facility] Comment on above: Performed By: #### 2 212047, 2696482, 7284306, 11395917, 63959243 ####[address] [place] [address] Hematocrit (Bld) [Volume fraction] 36.6 % Normal 34.0-46.0 [facility] Comment on above: Performed By: #### 2 819045, 4899780, 0600962, 01146013, 03357659 ####[address] [address] Hemoglobin (Bld) [Mass/Vol] 11.9 g/dL Low 12.0-16.0 [facility] Comment on above: Performed By: #### 2 872884, 1598963, 8977859, 13351067, 43847919 ####[address] [address] MCH (RBC) [Entitic mass] 25.5 pg Low 27.0-34.0 [facility] Comment on above: Performed By: #### 2 319260, 2041781, 2647738, 54415343, 38585846 ####[facility] [address] [place] [address] MCHC (RBC) [Mass/Vol] 32.6 g/dL Normal 31.4-36.[address] [facility] Comment on above: Performed By: #### 2 320840, 5385785, 0671934, 23773351, 49721976 ####[facility] [address] [place] [address] MCV (RBC) [Entitic vol] 78.2 fL Low 80.0-100.0 F [facility] Comment on above: Performed By: #### 2 041049, 8159396, 9459100, 37369403, 87231507 ####[address] [place] [address] Platelet mean volume (Bld) [Entitic vol] 8.5 fL Normal 6.4-10.8 [facility] Comment on above: Performed By: #### 2 649217, 6363897, 0462664, 24764699, 05932473 ####[address] [address] Platelets (Bld) [#/Vol] 229.0 E9/L Normal 150.0-500.0 [facility] Comment on above: Performed By: #### 2 961565, 7982090, 2683700, 97572943, 09372602 ####[address] [address] RBC (Bld) [#/Vol] 4.7 E12/L Normal 4.3-5.9 [facility] Comment on above: Performed By: #### 2 751916, 0682590, 8048492, 31471451, 15933322 ####[address] [address] WBC corrected for nucl RBC Auto (Bld) [#/Vol] 7.3 E9/L Normal 4.0-11.0 [facility] Comment on above: Performed By: #### 2 516320, 6821660, 2268025, 16375046, 02146872 ####[address] [address] CMPon 02-16-2022 Albumin [Mass/Vol] 3.7 g/dL Normal 3.3-5.0 [facility] Comment on above: Performed By: #### 2 575989, 8196258, 2904202, 88682966, 72281175 ####[address] [address] Albumin/Globulin (S) [Mass conc ratio] 1.1 Normal 1.1-2.2 [facility] Comment on above: Performed By: #### 2 060684, 3036869, 5586105, 40102598, 43710886 ####[facility] [address] [place] [address] ALP [Catalytic activity/Vol] 48 Int._Unit/L Normal 21-98 [facility] Comment on above: Performed By: #### 2 419568, 1730850, 2871455, 98331552, 95067378 ####[facility] [address] [place] [address] ALT No additional P-5'-P [Catalytic activity/Vol] 16 Int._Unit/L Normal 6-46 [facility] Comment on above: Performed By: #### 2 721454, 4594108, 1983725, 24812099, 55865953 ####[facility] [address] [place] [address] AST [Catalytic activity/Vol] 15 Int._Unit/L Normal 5-43 [facility] Comment on above: Performed By: #### 2 369096, 9997726, 6399208, 08740347, 82738604 ####[facility] [address] [place] [address] Bilirubin [Mass/Vol] 0.6 mg/dL Normal 0.0-1.1 [facility] Comment on above: Performed By: #### 2 520293, 7395449, 3823821, 93673329, 35556098 ####[facility] [address] [place] [address] Creatinine [Mass/Vol] 0.7 mg/dL Normal 0.5-1.[address] [facility] Comment on above: Performed By: #### 2 864781, 1845942, 5137077, 79718521, 33571641 ####[facility] [address] [place] [address] Globulin (S) [Mass/Vol] 3.4 g/dL Normal 1.4-4.0 F [facility] Comment on above: Performed By: #### 2 165470, 9781979, 7359331, 55258497, 41306973 ####[facility] [address] [place] [address] Protein [Mass/Vol] 7.1 g/dL Normal 6.0-7.8 [facility] Comment on above: Performed By: #### 2 026583, 1064384, 0995927, 36055724, 34766426 ####[facility] [address] [place] [address] Urea nitrogen [Mass/Vol] 9 mg/dL Normal 5-21 [facility] Comment on above: Performed By: #### 2 611859, 6043431, 3358048, 99999866, 08261306 ####[facility] [address] [place] [address] Urea nitrogen/Creatinine [Mass ratio] 13 No Units Normal 10-20 [facility] Comment on above: Performed By: #### 2 954135, 1125658, 2472640, 31053248, 01700306 ####[facility] [address] [place] [address] Anion gap [Moles/Vol] 13 mmol/L Normal 6-[address] [facility] Comment on above: Performed By: #### 2 712196, 2093928, 4887761, 94977200, 24219449 ####[facility] [address] [place] [address] Calcium [Mass/Vol] 8.7 mg/dL Low 8.9-11.1 [facility] Comment on above: Performed By: #### 2 683005, 7155842, 8370361, 72868494, 80209059 ####[facility] [address] [place] [address] Chloride [Moles/Vol] 106 mmol/L Normal 101-111 [facility] Comment on above: Performed By: #### 2 169066, 0129579, 6636927, 81340581, 31099021 ####[facility] [address] [place] [address] CO2 [Moles/Vol] 24 mmol/L Normal 21-31 [facility] Comment on above: Performed By: #### 2 070257, 0652152, 2850303, 30276429, 54919123 ####[facility] [address] [place] [address] Glucose [Mass/Vol] 98 mg/dL Normal 55-199 [facility] Comment on above: Result Comment: If t his glucose result represents a fasting glucose, interpretation should refer to the following reference range: 55-99 mg/dL Performed By: #### 2 548575, 3841765, 5545897, 15283867, 93108817 ####[facility] [address] [place] [address] Potassium [Moles/Vol] 3.8 mmol/L Normal 3.5-5.[address] [facility] Comment on above: Performed By: #### 2 209150, 7823052, 7637107, 25596481, 74106559 ####[facility] [address] [place] [address] Sodium [Moles/Vol] 139 mmol/L Normal 135-145 [facility] Comment on above: Performed By: #### 2 377660, 9943982, 9995437, 43042651, 33665783 ####[facility] [address] [place] [address] Consent for Treatmenton Consent for Treatment [id number] 2059 [id number] 0CD:[id number] Normal [facility] Discharge Instructionson Discharge Instructions [id number]#1. 00CD:127 Normal [facility] ED Clinical Summaryon 2021 ED Clinical Summary [address] [address] ED Clinical Summary Person Information Name: LEENA INTERIANO [place] Age: 31 Years : 1990 Sex: Female Language: Sign Language PCP: BENTLEY LUCERO CNP Marital Status: Phone: [phone] Visit Id: Visit Reason: Headache; Cough; Chest [...] 02/16/2022 13:29:49 02/16/2022 13:29:49 02/16/2022 13:29:49 ADDRESS: [address] [place] [id number] PHYS DOC NOTES: MEDICAL INFORMATION: Prescriptions Given: New Medications [facility], [address] [place], [place] [id number], [phone] benzonatate (Tessalon 100 mg Cap) 1 Capsules By Mouth 3 times a day for 7 Days. Refills: 0. Medications to Continue Taking That Have Changed [facility], [address] [place], [place] [id number], [phone] START: amoxicillin (amoxicillin 500 mg oral tablet) [...] PATIENT EDUCATION INFORMATION: Instructions: Otitis Media, Adult, Eien-nk-Fpfd Follow up: With: Address: When: BENTLEY LUCERO CNP [address] [place] [address] In 3 days 02/19/2022 DIAGNOSIS: 1:Right otitis media; 2:Cough Normal [facility] ED Note-Physicianon 02-17-20 ED Note-Physician Basic [...] chest pain x2 days. Patient declined formal level designer and tells me she can read lips [...] is deaf and declined formal signing which general cargo clerk. Physical exam shows right otitis media, dental [...] her that she can continue to use gjjb-duf-wwtfpef medications like Tylenol Motrin and Mucinex for symptom control. She is to follow-up with primary care provider. Patient is agreeable. Assessment/Plan 1. Right otitis media (H66.91: Otitis media, unspecified, right ear) Ordered: amoxicillin, 500 mg = 1 tab(s), Oral, TID, X 7 day(s), # 21 tab(s), Refills(s) 0, Pharmacy: [facility] 1985, 165.1, cm, 02/16/22 10:59:00 EDT, Height/Length Dosing, 86.5, kg, 02/16/22 10:59:00 EDT, Weight Dosing 2. Cough (R05.9: Cough, unspecified) Ordered: benzonatate, 100 mg = 1 cap(s), Oral, TID, X 7 day(s), # 21 cap(s), Refills(s) 0, Pharmacy: [facility] 1985, 165.1, cm, 02/16/22 10:59:00 EDT, [...] 02/16/22 11:21:00 (more content not included)... Normal [facility] Comment on above: Result Comment: Elec [...] Follow these instructions at home: ? Take pewu-dss-zdqndji and prescription medicines only as told by [...] 02/16/2009 Document Revised: 08/13/2018 Document Reviewed: 09/21/2017 [employer] Patient Education ? 2019 [employer] Normal [facility] ED Patient Summaryon 022 ED Patient Summary [place] [address] Patient Discharge Instructions Person Information Name: LEENA INTERIANO Age: 31 Years Arrival Date: 02/16/2022 10:48:47 Discharge Diagnosis: 1:Right otitis media; 2:Cough Primary Care Physician: BENTLEY LUCERO CNP Provider Information Primary Provider: Connor Castellanos DO Advanced Breaker Operator:Cary Archuleta PA-C The exam and treatment you received in the Emergency Department were for an urgent problem and are not intended as complete care. It is important that you follow up with a doctor, nurse practitioner, or physician?s psychiatric technician assistant for ongoing care. If your symptoms [...] Address: When: BENTLEY LUCERO CNP [address] [place] [address] In 3 days 02/19/2022 In the event that this physician does not participate in your insurance network, please consult with your insurance company to find a nearby participating provider. Patient Education Materials: Otitis Media, Adult, Adyg-gg-Orki A MESSAGE TO ALL PATIENTS REGARDING OPIOIDS PRESCRIPTION OPIOIDS: WHAT YOU NEED TO KNOW Prescription opioids can be used to help relieve ghkvsvji-so-rfjyhv pain and are often prescribed following a [...] be struggling with addiction, tell your health career services director and ask for guidance or call [facility] National Helpline at [phone]. y Source: Department of a (more content not included)... Normal [facility] Influenza A&B Agon 2 Influenzae A Ag Negative Normal Negative [facility] Comment on above: Performed By: #### 2 [id number] ####[facility] [address] [place] [address] Influenzae B Ag Negative Normal Negative [facility] Comment on above: Result Comment: Test sensitivity and specificity vary for age group, specimen type, antigen types, and prevalence of disease. Test results must be evaluated in conjunction with other clinical data available to the physician. Individuals who received nasally administered Influenza A vaccine may have positive test results up to 3 days after vaccination. Performed By: #### 2 [id number] ####[facility] [address] [place] [address] Prescriptions/Work Noteson 0 02-16-2022 Prescriptions/Work Notes [id number]#1. 00CD:127 Normal [facility] Rapid COVID Antigen ([facility])on 02-16-2022 Rapid COV Int NEG Ctl Pass Normal [facility] Comment on above: Performed By: #### 2 [id number] ####[facility] [address] [place] [address] Rapid COV Int POS Ctl Pass Normal [facility] Comment on above: Performed By: #### 2 [id number] ####[facility] [address] [place] [address] SARS-CoV+SARS-CoV-2 (COVID-19) Ag IA.rapid Ql (Resp) Not detected Normal Not Detected [facility] Comment on above: Result Comment: The [employer] System for Rapid Detection of SARS-CoV-2 is [...] or revoked sooner. Performed By: #### 2 [id number] ####[place] [id number] ADMITTED TO INTENSIVE CARE UNIT FOR CONDITION OF INTEREST:FIND:PT: NO Normal [facility] Comment on above: Performed By: #### 2 [id number] ####[place] [id number] EMPLOYED IN A HEALTHCARE SETTING:FIND:PT: NO Normal [facility] Comment on above: Performed By: #### 2 [id number] ####[place] [id number] FIRST TEST FOR CONDITION OF INTEREST:FIND:PT: Unknown Normal [facility] Comment on above: Performed By: #### 2 [id number] ####[place] [id number] HAS SYMPTOMS RELATED TO CONDITION OF INTEREST:FIND:PT: NO Normal [facility] Comment on above: Performed By: #### 2 [id number] ####[place] [id number] HOSPITALIZED FOR CONDITION OF INTEREST:FIND:PT: NO Normal [facility] Comment on above: Performed By: #### 2 [id number] ####[place] [id number] STATUS:FIND:PT: NO Normal [facility] Comment on above: Performed By: #### 2 [id number] ####[place] [id number] RESIDES IN A CONGREGATE CARE SETTING:FIND:PT: NO Normal [facility] Comment on above: Performed By: #### 2 [id number] ####[place] [address] [place] [address] Rapid Strep w/rfxon 02-17-20 22 S. pyogenes Ag IA.rapid Ql (Throat) Negative Normal Negative [facility] Comment on above: Performed By: #### 2 [id number] ####[facility] [address] [place] [address] Troponin 0 Hr.on 02-16-2022 Troponin I.cardiac [Mass/Vol] ng/mL Low 10.10-27.10 [facility] Comment on above: Result Comment: The 95% CI (Confidence Interval) PPV (Positive Predictive Value) for myocardial infarction in females is 38 pg/mL, in males 51 pg/mL. The results should be used in conjunction with clinical conditions of myocardial infarction. (Access High Sensitivity Troponin I Instructions For Use, [employer], April 2018) Performed By: #### 2 [id number], [id number] ####[facility] [address] [place] [address] XR Chest 2 Viewson 2 XR Chest 2 Views Exam Date/Time: 02/16/2022 [...] Transcribed by: MARÍA ELENA Technologist: AYALA Gonzalez [facility] eGFRon 02-16-2022 GFR/1.73 sq M.predicted among blacks MDRD (S/P/Bld) [Vol rate/Area] mL/min/{1.73_m2} Normal >=59 [facility] Comment on above: Order Comment: Order added by Discern Expert. Result Comment: eGFR is race adjusted. AA=. Performed By: #### 2 [id number], [id number], [id number], [id number], [id number] ####[facility] [address] [place] [address] GFR/1.73 sq M.predicted among non-blacks MDRD (S/P/Bld) [Vol rate/Area] mL/min/{1.73_m2} Normal >=59 [facility] Comment on above: Order Comment: Order added by Discern Expert. Result Comment: Field Artillery Radar Operator chance kidney disease could be indicated at eGFR's of less than 60 mL/min/1.73m2. Kidney failure is indicated at less than 15 mL/min/1.73m2. Performed By: #### 2 [id number], [id number], [id number], [id number], [id number] ####[facility] [place] [address] Coding Summary.on 01-15-2022 Coding Summary. CD:[id number] Gh 0bWw+PGhlYWQ+NH3GPRSjA 59skCMilA8WE1rUSA1OIXA JAINNDP2YDM8dcFR6ZKouU 2VybiAv HmggyONhCK73BQx7XEF1iD osOKgyrU5lrMSbF1g8GsAe TQ00fJ37SFndMVAaEcN3Nq ZpbjsgbWFy F7ydUfAwwWReLjh+PHRhYm xlIHdpZHRoPScxMDAlJyBz gGorUI8gDf4hPECrFRIroN xhcHNlOiBj m3teFWZdCUdoWH1lyQdaO5 BpcCB5TJEwm0i9Hc72iZQ+ TLFcVOM3tXuuCVxwv082Hl Poe1ksQBO9 pZXeHUhdJRR4Z91pr4X5LL AzVMLnRPP8qKM2zD7zrDex ysofQ9WwuPIiQpE7RNZ8rW SiiG1caNsf etxzxV3lJvq+A60HGW0TZK WOVS0IIjc6B7EuRxrzvZZ+ PV64JPRiLF47cUHgaCWvy8 jvzCg7MhBu NHMxNKN4iNasHSyfn5YbZU JnQ16phNKvq3Q9XDDriWgf eZSmAkQhwQO7wU9jKDslmv dbl3uerwps Epyed4duhv12zX05R60bWQ dvMPMmCWP6RXYyYZEkiSci tj3tqY8pVw5+QApnk2aeh1 jvqAv1VzOy TEFvgmNtqSqmOCZ3p5YjSp 47Q7JylXsbl3ZtXey4mr01 gNGva8N9gNA6ZDkvLTKouA 0rGWqgWhD6 TYEnViJsoD68vUSvXGkcVb 9nkSjfpEsqXZ5eWDRwqvfr DFQduR5eREPzsRHiuVrlSD 4wNTBpbjtm i128NyQnEOL9LIEnsSWsZ6 GxkN8eVjJzHDZoJPRqL9Zk lJWxDIpqY702YOcdPhU0QL CxugGaQ7Kg DKKvwLzmSlL9w8T2Sd2Tp7 HqffktPVJ0DRibLEX0DtT2 AgLvUqN2D2VbHgv3ZQDnaB woEF4pA5Wv JRKsdrcgwrvonYA1ZFKkYN XplC45dBPzWIwiNx4wj8B5 k596VHMlJJFlpG68Tz8fmH ogMTBwdCBU sN1dwjhmj9ywfugaQiMiKS RpKLx3TKg0HSPahGkuTrDo ZBR3VnV6QMM1kXNztO6rgF zjvlnyhV4r Oyc+B91zdN0pRVU2FMG5de avXIRcpcGyRF77UG15H0Qu PjwvdGFibGU+PGRpdiBzdH pnHG7sGgHo d8hkg8EgGCqfN8DfOOFeIX fbTdd2GAEfADY0aGH4yQ8b RPDjMQopu0A2zYE8E1Bokl Squy1qg8gi SHKqSJrdK49feQOpp9C1WR EzsAF4DRUocCxiMrEucU99 Oyc+YZPyhXfnw5ZkMcyhq6 cgm1anjWd7 JqSdHFStqyBvoMiaJNW2h8 LdCj12O90sBVqhGCWbNLDm REKkQFZuoOmgru3cqW4zYt 8+PGNvbCB3 cXP4lK5pRIIiEsD2CHynO6 20LuOblDIeKyzid1gfc3fo aEe9ZnUsFZZgjgNpaQhnCH Q5b0TtMb63 R27kQLxpZLVuJCQkIDVcHE AmmIwuhf7hwS7vYa8+PC9j h9tjgp62mS70iLO+PHRkIH H1uRufQNxr MNFhiN2rXKypVmU3GVVuJq AbwJ78mRGbJJiuKm8iuEpz hNibIO6lFKZqsmcyn336Td Ify1omQREw wZGaBXhoNKK9G37xf8O9XI TnZIPxOIQ3zBF6wI4kvSpv bjogbGVmdDsgdmVydGljYW dhJCnjH774 IHRvcDsnPlBhdGllbnQgTm EpAQi9J9WlNqm6KBQdkRju HB2ocGBlAQpgKo0jtUtlmA wjMJ9jXTRv kxfxg598AhJon0ssDEDdeE JtWGwqERD8C08ik8K1ZMMm UIYpAYO8uKE8tR8rmNuvab ogbGVmdDsg btSyfAymJBjyYRjcI711JI RvcDsnPkJpcnRoIERhdGU6 MA70YW50uBTsq4S3jVQ4H8 BhZGRpbmct wtdtxNU8GIHqBHUzvE66Ke 4ukNqlYt7qDZTyDXL9MEWg vTPwH5UcwZ6gNrIoNRMfJP AbT9BpyKIg KCltZ427CCsoJyJ6BEWrbj HsJ4JuRJTapWwuBqI9z6V1 Ws8JD2F5AY34EE00zACwr2 F3pUL6X2Gc KJVdbbtuhbzecFT8KFLcCO TjzX93Eb8rtXuoMj8hHSPg SQF1QBVaqVQgP2YdbN4aPx AjMDAwMDAw E6AhdURgNCmjJ679URpmOi C8YUJnkxMzA8PoYKOnbXfh XoB8l2M3Li7VOMi5FG76MW 73rGVxa6R3 tQD5Q2YuVHJqxwixvymjxZ D3IMCvHWKqvT27In3geNuk Ta9rANFhLZY5RSMztTLqI3 DqnJ2dQoVo GZFeLBOmR1VudGRmNQryT6 07DRvqUhW8QURkxhDqH2Ce FTViyWqbFaB7x8H9Tx4LWL GhSK33KEI8 uSS7NG62OS28S4BbRmodiW FibGU+PHRhYmxlIHdpZHRo CBrnVTIgCwUuvWxzJY3gVm 9yZGVyLWNv rBawiRCaCxYrs0niMXDbSA clMZ3zrFvdN6XtxHG9LGUa q9g5Jf27D08xH4OweCJ+PG PlxLS8tQH0 gX4sUkPuQmY4HConM153Jp PdbFPnPdpnb6kwc1fxoRe4 ZfW0PSCmodNdsZmjEQU6p2 ZoPg08J33o IHdpZHRoPSIxNSUiIHZhbG dxwg9qhL5zXu2+PGNvbCB3 tEH4wV9dRiCnWjQ5PVlcQ7 49InRvcCIv Vjgjx8lqf5wsfKn6EeSwGE GikfPhpLsiQQU2q2LkVa47 L3OjvMucc8WoMer0kq04dQ Ynx9Q1tJY6 G0SsHUJakvkjyPKgyVofBD 7iZDMtmomjRZEnrQ9iMRPk P7t0PtVjScV7FOpiQ2Ouib S1OJObtSVc EQgpDSK8K80bg1F7ACRbPH NmIPY3wLK9nG6qbUxriziv bGVmdDsgdmVydGljYWwtYW szC105ELNn iYgfACFjdI8dHSWejZHqdU lzQV0mWSUfdcwtQysAZJzs IEpBREEgTTwvdGQ+PHRkIH Z0iHfgWTnl ELDwxU6lUNZcJ5e9FsQjLg R0WXsjX6BaUEXelqysEv42 mO2fNpPzOtD5ZDbdJ3Bvgm S7XVEdnYKn UDwkFOM1N04mx1X0SCJuQL GkOWW7mOP8wO0yrCinofuv bGVmdDsgdmVydGljYWwtYW djB183JYFz wLpqGwB3QkO8PmK6FQL2T3 FzVrw5FASzxNdsVD3igAHn CLeoWv9jwIqclHdjRL6fFK BpbjtwYWRk wF3hKTHzdYOrlFliSO3eMX Azgsgmw474EzTxQTD9YCBz sLZgM0ZexA4nLaNmOJOyIZ XsV7IohTZu TRzrS835HPzrUlT0OFMupy YeZ9WiXLEnaSafXqM5t9L8 Bh9fLSDAYPCebhcwxKM+PH CrGVB6gQbq OIxqGNQjkY9eKWXuW5l9Xt TgAyP4GEqtZ0VlUHAalycv Er70tX1iRuIoHeI8ZVysQ9 XhinK6PJCo pEJjUEerXHM4K48iz6K6WG MrHEGwNGO6xKG2jL3eyXpx bjogbGVmdDsgdmVydGljYW ltNAqrU392 IHRvcDsnPkZlbWFsZTwvdG Q+XPJiSNR3fZpuZPdgVFWe fO7zGHKmS1u5RaKhPcW3LO lrH9EtXCGp whyoMz11oU9qWxLzZhQ1UD erJ8XjleJ4UIBvjMIxUAgp DNR8O76el8F6KAFnAZFmBF K9kKU6tG8u bGlnbjogbGVmdDsgdmVydG krKMtxSSqpG843DBCdeJqz IeAqSGVhEC2yzSqycEO+PC 79bu46N4Rq QbwrIyx9XRIoGCV1iCJ1jS 3qCETiFZyns4K6sUK9L0Nt gyAuae4ea7arFKZuMUxkX7 4mrLVvy6G3 ENQneUZ5GDPsrZpyCbWdwQ 93Oyc+ULPbdFjoe1OsAglq b9xpq4qwyWk5FaUyDLEwnm FsaWduPSJ0 i4HcAo48R99sRQggXGHbYY QeKOTyMGKruRhvco9gvT6q Ii8+JIFwwBN8wPV1wK5wHh PeKpU4MUty F524QwPfaBQkSnzyg2rcs2 uhhVs4OoXnZBFvpuWpxTri WQD6u3XwPv73I3QonHoxz8 IzHzl9xb85 wSGkh8D6oST3R2PcCBRgac knxQYdwUprGY0wVVYbjlfd RCXdwH8lHFEhP0n4KgUdIp S2CEtvX3Yg pnT7IGKlrTIcOXBazLNWlW 1zuaaoo8keuijvYlUoHNOe KGs0HWt6GTNniZvxLzTmDY O7HcQ0PWZ3 fYXzbR8enRpdhswtnZ3pLp c+GFh6g8yqrRTlCH6cdMX6 RY09CA32dNHwb0J7vJG1C6 BhZGRpbmct monitAR0OZFuUQCynD13Iy 8gzLxuXh1jCTHuOZV4SXKk mEDxF7DpnG1nJdVwBQWfPZ EsH5JueDTz MHboD264EMsjPkU8VZFefz QaB0IcZEXadKqpSxQ8g4V5 Nh7OUQ07RI60IM51tLSya4 U5jTF2G7Im USDrvjelchefeAP5CJPiUE FxnL24Cp5asMttWb8zDPQu JWY2XRPfoDPbV6BglV9hYe AjMDAwMDAw W1GubGEcYMewG565KKygKg N8JGPfbhYvL8UpHTWtpCwv MlJ5p9Q0Os7VPf55YK90NL 96pIZsl0P3 mZS7W4TiTUUadwbvnvqupQ Q5YYVtMGHvaP05Ix1snYdw Uq2eFUEhBWL3IOZklRKyP7 OlwA1fToOh YFIvBWAxE7OspMBtIRgcI1 32EMtfWlQ8VWMcpaGcJ3Lt ZTDyaIudLzO0n5L4Dz0ERE npwon4R5Fw PjwvdHI+UF42OEMoJS29iW DihVHoj6oxiXm4WdVsFMGn OCW8hNwdNCynp3DxVVYdZ3 9uoYXtu6C6 IGNv (more content not included)... Normal [facility] Discharge Instructionson Discharge Instructions [id number]#1. 00CD:127 [facility] Comment on above: Other Comment: WRONG FOLDER Prescriptions/Work Noteson 0 01-14-2022 Prescriptions/Work Notes [id number]#1. 00CD:127 [facility] Grp A Strp PCRon 01-10-2022 Grp A Strp Intrl Ctrl Pass Normal [facility] Comment on above: Order Comment: Order Added on by Discern Rule. Performed By: #### 2 [id number], [id number] ####[facility] [address] [place] [address] S. pyogenes rRNA Probe Ql (Unsp spec) Negative Normal [facility] Comment on above: Order Comment: Order Added on by Discern Rule. Result Comment: Test ing performed using DNA amplification. Performed By: #### 2 [id number], [id number] ####[facility] [address] [place] [address] Consent for Treatmenton 12-14 Consent for Treatment [id number]#1.0 0CD:127 Normal [facility] Discharge Instructionson Discharge Instructions [id number] 0CD:127 Normal [facility] ED Clinical Summaryon 2021 ED Clinical Summary [address] [address] ED Clinical Summary Person Information Name: LEENA INTERIANO [facility] Age: 31 Years : 1990 Sex: Female Language: Sign Language PCP: BENTLEY LUCERO CNP Marital Status: Phone: [phone] Visit Id: Visit Reason: Throat pain - [...] 01/09/2022 15:57:51 01/09/2022 15:57:51 01/09/2022 15:57:51 ADDRESS: [address] [place] [id number] [facility] DOC NOTES: MEDICAL INFORMATION: Prescriptions Given: Medications [...] COVID-19 Follow up: With: Address: When: BENTLEY NIC [address] [place] [address] [employer] ([employer] In 3 days 01/12/2022 Comments: You should self quarantine for 5 days. Return to the emergency room if your symptoms get worse, you develop chest pain, shortness of breath or any new symptoms. DIAGNOSIS: 1:COVID-19 virus infection Normal [facility] ED Note-Physicianon 01-10-20 ED Note-Physician Basic [...] PCR Influenza A&B Ag Rapid COVID Antigen ([facility]) Rapid Strep w/rfx Medications Administered Given ibuprofen 600 mg Tab, 600 mg, Oral Disposition Plan Patient Discharge Condition Stable Discharge Disposition Discharged home Discharge Prescription List Prescriptions No active prescription medications Follow-up With When Contact Information BENTLEY LUCERO In 3 days 01/12/2022 EDT [address] [place] [address]- Business (1) Additional Instructions: You should self [...] Diagnostic Results No qualifying data available. Normal [facility] Comment on above: Result Comment: Elec tronically Signed By: Paul Moss, Devendra H\.br\Date and Time Signed: 01/09/22 16:32 EDT ED Patient Summaryon 022 ED Patient Summary [address] [address] Patient Discharge Instructions Person Information Name: LEENA INTERIANO Age: 31 Years Arrival Date: 01/09/2022 13:49:16 Discharge Diagnosis: 1:COVID-19 virus infection Primary Care Physician: BENTLEY LUCERO CNP Provider Information Primary Provider: Devendra Miller M.D. Advanced Breaker Operator:None The exam and treatment you received in the Emergency Department were for an urgent problem and are not intended as complete care. It is important that you follow up with a doctor, nurse practitioner, or physician?s psychiatric technician assistant for ongoing care. If your symptoms [...] Instructions: With: Address: When: BENTLEY LUCERO [address] [place] [address] [facility] () In 3 days 01/12/2022 Comments: You should [...] opioids can be used to help relieve crsefxxs-mj-bnekxt pain and are often prescribed following a [...] If you (more content not included)... Normal [facility] Influenza A&B Agon 2 Influenzae A Ag Negative Normal Negative [facility] Comment on above: Performed By: #### 1 [id number] #### [facility] [address] [place] [address] Influenzae B Ag Negative Normal Negative [facility] Comment on above: Result Comment: Test sensitivity and specificity vary for age group, specimen type, antigen types, and prevalence of disease. Test results must be evaluated in conjunction with other clinical data available to the physician. Individuals who received nasally administered Influenza A vaccine may have positive test results up to 3 days after vaccination. Performed By: #### 1 [id number] #### [facility] [address] [place] [address] MICRO OTHER TESTSOrdered By: Ramses Camargo on 01-09-2022 Influenzae A Ag Negative (01/09/22 2:21 PM) Normal Negative [facility] Man Sero Influenzae B Ag Negative (01/09/22 2:21 PM) Normal Negative [facility] Man Sero Rapid COV Int NEG Ctl Pass (01/09/22 2:21 PM) Normal [facility] Man Sero Rapid COV Int POS Ctl Pass (01/09/22 2:21 PM) Normal [facility] Man Sero S. pyogenes Ag IA.rapid Ql (Throat) Negative (01/09/22 2:21 PM) Normal Negative [facility] Man Sero SARS-CoV+SARS-CoV-2 (COVID-19) Ag IA.rapid Ql (Resp) Detected *ABN* (01/09/22 2:21 PM) Invalid Interpretation Code Not Detected [facility] Man Sero Rapid COVID Antigen ([facility])on 01-09-2022 Rapid COV Int NEG Ctl Pass Normal [facility] Comment on above: Performed By: #### 2 [id number] ####[facility] [address] [place] [address] Rapid COV Int POS Ctl Pass Normal [facility] Comment on above: Performed By: #### 2 [id number] ####[address] [address] [place] [id number] SARS-CoV+SARS-CoV-2 (COVID-19) Ag IA.rapid Ql (Resp) Detected Abnormal Not Detected [facility] Comment on above: Result Comment: The [employer]? System for Rapid Detection of SARS-CoV-2 is [...] or revoked sooner. Performed By: #### 2 [id number] ####[facility] [address] [place] [id number] ADMITTED TO INTENSIVE CARE UNIT FOR CONDITION OF INTEREST:FIND:PT: NO Normal [facility] Comment on above: Performed By: #### 2 [id number] ####[place] [id number] EMPLOYED IN A HEALTHCARE SETTING:FIND:PT: Unknown Normal [facility] Comment on above: Performed By: #### 2 [id number] ####[place] [id number] FIRST TEST FOR CONDITION OF INTEREST:FIND:PT: Unknown Normal [facility] Comment on above: Performed By: #### 2 [id number] ####[place] [id number] HAS SYMPTOMS RELATED TO CONDITION OF INTEREST:FIND:PT: YES Normal [facility] Comment on above: Performed By: #### 2 [id number] ####[place] [id number] HOSPITALIZED FOR CONDITION OF INTEREST:FIND:PT: NO Normal [facility] Comment on above: Performed By: #### 2 [id number] ####[place] [id number] STATUS:FIND:PT: Unknown Normal [facility] Comment on above: Performed By: #### 2 [id number] ####[place] [id number] RESIDES IN A CONGREGATE CARE SETTING:FIND:PT: NO Normal [facility] Comment on above: Performed By: #### 2 [id number] ####[place] [id number] Rapid Strep w/rfxon 01-10-20 22 S. pyogenes Ag IA.rapid Ql (Throat) Negative Normal Negative [facility] Comment on above: Performed By: #### 2 [id number] ####[place] [id number] Coding Summary.on 11-26-2021 Coding Summary. CD:[id number]:[id number] Gh 0bWw+PGhlYWQ+WG5QFVIgK 88kuMRpwF4PR3bDXW6KXFA UGTXGGB8CGN0lyVS4KFgpO 2VybiAv DuapyZWdRC52FJq7SCL2rQ vqOLyduT9jpVYmT8d5FdFy LM78cI46YBqgGQCnFaN8Ha ZpbjsgbWFy M0ztKbRykPDrZer+PHRhYm xlIHdpZHRoPScxMDAlJyBz fJzbWZ3jKl2vUSVgLSTenS xhcHNlOiBj v5qvFMIqYDadBA9kiSezH8 IcqLD2ZGVyd0n5Ur88xCZ+ JABjCHI3uRdgWRpuv785Ta Avf6rySRE0 rBEiGAgtBLR1G60hq9B8AU NfYIWdPRJ6vZF2jH1mfEav nwxmY4ZsbYZkMhD9BQA9vM LhjJ8ryLzq scdcpT1mIrm+P42XQG2THA FEGV1TEom8S8VuKxenuZN+ PT55VYRoQT18eVKseEDpm0 hwoAs6IgIc XSUeZQE6oAwmRItrl2OtDC VeG98zaFCeh1S8ADGvtLod qHYiAjAulZD0zG3iZIqamp mks3fjitdg Ynjew2sumx38jC14G43zNJ qsJOOgAFK3VICoNPApxHpu xi1klU7bGg2+TPxeh6jgv4 tciZx3DyNc WFThgkFniRonENI9b2YtZx 58Y9UjaDkxk7JrZoq4gs53 jMAep8X5jDQ0XJiwYEUyzF 3cZLerKjH4 KZBsMuOooX45nXVuGVzeYi 1rwPgqvNpkQR2yNFFopqxd QWTcwR5lHGPfcLTthOuaMA 4wNTBpbjtm e497YdLpYZH5CWYhhSHvA0 MosE1hUrRjBBEpZUHkK8Pr rDDnWJzwW429QSmyByC2BP YzznLvN1Ru HFBllZxrRqN1b0T7Ef1Yx4 SprqmdNTM3GQevGHFmPyB9 AnYmGkT3I7XbJno9YJYucD gyKZ3xH5Ma PHAfqvvlbxjzpNA0XFPaGC BbvR00aFBwCRslLd2fi2O7 b685KTQuEBBhkI93Do6ibS ogMTBwdCBU kK7yukggf9pgqejwLrGdSP XaQQw8QRf1FEZpyAjlPgVu BMB2XbH2CJU7iIZoyR8hgQ qrsumswO9y Oyc+U04qqK8tWXE8JOU5pe foDYPhyuKgDS38IY39I6Bq PjwvdGFibGU+PGRpdiBzdH scGU7dYnRn y6kho4AqELtxJ5VcHLJsFT vlWiw7CTPeOEQ7rXA5uG7l QOHkVCoet1Z4gBH0U0Ooln Wfjg8uo0bt ZSKvOFreR19okVXmd2P1WD AkvFC9RXYtjByyHyDrxL40 Oyc+YNHkwCoep8FuEuvtx8 vwz0mmbRc4 HhZuGQKelxChlHnuDKE4y9 OiJa72T85oEVolMLQmRKZc QYGrZZYcuGqkkm9qvM4fWg 8+PGNvbCB3 lYM7hR9sIUVzTjE0JIslY6 62MzNzrXWsCmxam5egf1nt iTw8YgZxKUMzjcIdmWacEO V1z6CsNz40 V77nWOecHBIkIMNnRXCjXW WjgTrezb3izV6nNp8+PC9j p8omjo95fY65bVW+PHRkIH A7nYmhVBfb MUHzfE3mJJmvOpA7OBTdDd TexU16pZZyJPwhTb7wsWha hIbmQB6rUJOgqgwti496Hg Iqa1evRJKg oJXdRAxwHUL6K32sl7H5WJ XrNBQxABE1zIY4cR3ucKuh bjogbGVmdDsgdmVydGljYW pfNVneK202 IHRvcDsnPlBhdGllbnQgTm RdRGm3E1MeDmb1HUAanAeh DS5khZYrBZjbCi8skRafbE lxOX7jERCm mrhqj707KnRah4jiMEHvzH OyDWjfMJF4D92vo6V0FUOd IPDrGIE3aDO4lW6fnNqkfc ogbGVmdDsg smRqeAafIUdrTUwoS202PN RvcDsnPkJpcnRoIERhdGU6 PC12LE26mOPvt2T1pQB7K0 BhZGRpbmct zpinwWW1JCJyWANerF07Ch 6njRbcYv0dKKWwPVD5JHKk tRFrF9ZzsJ9yApPdFTYoDI UjW5FvlWZa NOffZ901VZekIyZ6RPIrhm HaU4EjMWOxwEvhErD1t2H4 Ne6NJ6W2KX76WH81yFSmb4 G3gGY8Z7Kh FJHumtisyzgocSG9WEHjBM GmyZ39Lg2hdSemAb6lLXOt SMR6SQBtmJCqU5NeaL1dEb AjMDAwMDAw A1TpcBThGXhvY448WHhzTs S1ALHloaWiE1TqJTGnyLlw AiW6f8K2Ea3FTPw7KR01SV 42jAItz6F6 xKD0N3CsVVUrbnfcoxulhX L4HMSgOZGknD68Ce7tkYdb Vg8pDIRpQFY5OBHbdPXyA5 TwdL8fIaAp QAHpFWXvD0YpcAHcREitA6 96PRntOkU5KJDbjeCaC8Wf FLZluAsdVxW7r8N8Zm6MZB XiFU23YRQ3 wQU1RC51IE90J3QmUbvhdF FibGU+PHRhYmxlIHdpZHRo IPyuOEByOnQjnOcpQX6tVo 9yZGVyLWNv aOftjHVdFqSrh6ilIZPpNT uoCR9uqMbmC2SpgCG5HHOo y0p9Fk95M46xD1ClcZD+PG DglEE0xON6 uB2sDfFjGwJ0TVqzI343Hq RfdRXpYyjby8maa1uoiNp5 GbE6KGHdyaLiiZdmTVB2m3 HvSq28Q18h IHdpZHRoPSIxNSUiIHZhbG nmss2caR7jSr0+PGNvbCB3 mER3jB9zFiOrYgT7TOhcZ8 49InRvcCIv Qoadv0cvc6gcyBw4VaDbJP ZubgNkbOooMBO3r2TyTm02 S1QtbHoax5FaAhh1is54bI Gae2F5lIQ6 O1DqYUIklfafeGRoiSalDP 6kGBFirrtxPTHekN0xGDXc P4c5VwRpFgE9VJxvQ9Emmu J7ZVXzsYSi VCiiJYI9E78eb4P4GOOtGH GuUUZ4uYF1fV2zqCcccprn bGVmdDsgdmVydGljYWwtYW wmC861OITi mWdaLVWyiQ7tCTEgsCSdaJ yfHI3yEPGaivgtBjrZFJxo IEpBREEgTTwvdGQ+PHRkIH A1vToaOPxe LCUgfN1aXZOzL6l3JyTqFd K6LLjoJ1DzUGPciqwsXr47 yS3xKtYfAwC6GPyuO1Imxt L6VPGhgJLp EBsbEVD8R15wp9L8RFQkNI OmMZR3gCC2vM7kyDikefgx bGVmdDsgdmVydGljYWwtYW iqM414OGHg zMntYnZ5LvR7NpX6UKX5Y3 AwGjf0SQXtfHxyHS6rpUQh ITfmGj0ijJposNkuMM4lBG BpbjtwYWRk uX9jCEVczGQpqUyvJZ0qLY Cypdhdo622GyExABJ7QTZl hJYxI3VytR9gKaMaAPFoWV YoT8ClqKJl EGdiH179XYyvHmC9PUAdaq OvT4ZaPNSvfZnjHhI2p4D1 On4dBQJHJMLjmnfztOK+PH HaTOM3uLne OXycTCAreR0pVCWzQ5d6Pu RvPhN2ZQwmP2JnOZMaklii Ht06wH5dIlZxUuA1HZvnL1 BtrzR9KZIk eCBhQEhqGTX9U47vo4B5HO GxRCNsYMC1sUK4fI6drPyn bjogbGVmdDsgdmVydGljYW wkZGyhC294 IHRvcDsnPkZlbWFsZTwvdG Q+LCUkNRG0cVfmAWswRUGu rE0dLYWbD4t2QbSpDeL0KM tnB2VdWDCa kvtsPm16pA1kXaAoJeT6NU nxI5UjssH9LWGxmBXoETsm WKM5U83fq9V1SNRnHXCbSF P9cNE8hG3t bGlnbjogbGVmdDsgdmVydG jxWGdyKJrnG144STQeeIpb HjGgUTIpUS4olWszcKO+PC 02eq90V1Ng KoeaUus9DIFuORE6oSI9iA 0pWFTdVHwqi0Y4yYO3D6Ik lvWmac9wj4esSLAmIWrxP4 0ulRCyn7M2 PJHcpBS4KISbxKmcAxOpuQ 93Oyc+IMXsjBhac1AcHkdy z2kjp8nemHh3QlWfRDMoja FsaWduPSJ0 f5DzZz04N83mZBrbVYMvPK AtPUXpBABwnSjyih7rkS2s Ii8+DQAmsRX8eKQ0rI9sCd XcVaC3WRlv C573XxOrtQKuOkfny9uau2 eihGv9YhRwVYUbjyQuiRhx TTW7a9UrYd89L0HtiTbnx8 MzFda5bf03 bMCbu3Y7uCL8O6RvLDKvic kpeULjfZimCI2jFITdstkk QTEjuH7wLKWeS3x2HuSdIn E5ZCtrT2Ec fuS6YZKvwWRyFXHstIOAuV 2gmrqjq0hqisooWqDxNFWv JEk8CHk4SQQjxBzoTuDrWW C0NsX6OEN0 sAMkbN9pwOxtwtxgmG0fHm c+WZj9b4ntyDDhIL5uaNL0 RL03VV78jYByu3I9iHF3Z8 BhZGRpbmct drfsqMC3NXKaCOJalI79Cf 4uzGpwHf1nFFZfFIP1AAAd qMHrW9FybD8wTySvHWLkXT BsN0UklQLp KOwaP868WElxNlQ7UMUzyp WdV1PuBPAlhSmwGeZ4e7D8 Ua8CAP59YU96BV40eDZee6 R3fZF0B4Lj ZBYzhphiqxrmkKF4VFJnDC BebE27Hh3toRgeMy0yTQDo FMD7CVTnhQTlE4EftZ7bAk AjMDAwMDAw X4BeaXMlGNzaP474UNkjKv V5VTUgmbJdU0KnDIMmzVen OvI7j1Q9Di1QZd88SI18SE 37tQJsp0Z8 vWG5F1UhORPpgrvbvkncgE N0RENaFBKstB57El0akFwn Ay4xGFDeXBB3ZDXrfGBnE7 NqfM4eOkVf MPQbYAOwF5QvlREfQJjxK1 57LPyvCiM9RVYjzcSwD0Au CDZrmCvnGxJ0m7A0Pr4DLU mmhbn3V6Gl PjwvdHI+YA10NWIqIO76zT JtpLXpk4fjwCl3CaDzDTZx FRC8eEtoXFibg6EeCPZrD2 3oxMAqd2Q9 IGNv (more content not included)... Normal [facility] ED Note-Physicianon 11-20-19 ED Note-Physician Basic Information Time Seen: Grant Jacob PA-C 11/18/2021 12:16 Chief Complaint pt c/o chest [...] day(s), # 10 cap(s), Refills(s) 0, Pharmacy: [facility], 165, cm, 11/18/21 12:18:00 EST, [...] Daily Follow-up With When Contact Information BENTLEY TRISTANMARBIN In 3 days 11/21/2021 EST [address] [place] [address]- Business (1) Additional Instructions: Patient Education Gastritis, Adult Attestation Patient seen and evaluated by the physician psychiatric technician assistant. Attending physician was present in the emergency department and supervised care. This visit was performed by both the physician and an APC. I performed all aspects of the MDM as documented. This report was transcribed using voice recognition software. Every effort was made to ensure accuracy, however, inadvertently computerized press writer mistakes may be present. Appropriate healthcare PPE [...] Oral, Daily (more content not included)... Normal [facility] Comment on above: Result Comment: Elec tronically Signed By: Grant Jacob PA-C\.br\Date and Time Signed: 11/18/21 14:10 EST\.br\Electronically Co-Signed By: Kristopher Clemons DO\.br\Date and Time Co-Signed: 11/19/21 07:37 EST .Manual Abson 11-18-2021 Basophils/Leukocytes Manual cnt (Bld) [Pure # fraction] 0.1 E9/L Normal 0.0-0.2 [facility] Comment on above: Performed By: #### 3 0375384, 4443627, 2430256, 1653028, 72126948, 2241166, 94628859, 5757524 ####[facility] [place] [address] Eosinophils/Leukocytes Manual cnt (Bld) [Pure # fraction] 0.1 E9/L Normal 0.0-0.5 [facility] Comment on above: Performed By: #### 3 8002230, 1939731, 6058120, 3736633, 34085831, 4158433, 84456361, 9019188 ####[facility] [address] [place] [address] Lymphocytes/Leukocytes Manual cnt (Bld) [Pure # fraction] 1.6 E9/L Normal 1.0-4.0 [facility] Comment on above: Performed By: #### 3 8222322, 8854787, 8966303, 8065095, 05983724, 1864856, 16932067, 0522292 ####[address] [place] [address] Monocytes/Leukocytes Manual cnt (Bld) [Pure # fraction] 0.6 E9/L Normal 0.2-1.0 [facility] Comment on above: Performed By: #### 3 8696243, 2681844, 9786031, 2084188, 55828430, 4590542, 02786605, 2866849 ####[address] [place] [address] Neutrophils/Leukocytes Auto (Bld) [Pure # fraction] 3.9 E9/L Normal 2.0-7.5 [facility] Comment on above: Performed By: #### 3 2733132, 8087767, 7230197, 8903413, 35634447, 4536495, 57968227, 2848473 ####[facility] [address] [place] [address] BMPon 11-18-2021 Creatinine [Mass/Vol] 0.7 mg/dL Normal 0.5-1.[address] [facility] Comment on above: Performed By: #### 3 4424423, 9139829, 2577891, 2622333, 01658889, 2158364, 06872851, 4190284 #### [facility] [address] [place] [address] Urea nitrogen [Mass/Vol] 11 mg/dL Normal 5-21 [facility] Comment on above: Performed By: #### 3 5600126, 1679448, 9990330, 2382834, 36198084, 8030187, 66765563, 7189102 #### [facility] [address] [place] [address] Urea nitrogen/Creatinine [Mass ratio] 16 No Units Normal 10-20 [facility] Comment on above: Performed By: #### 3 9777186, 8481442, 1201746, 1414909, 11485153, 7528132, 44767714, 7148383 #### [facility] [address] [place] [address] Anion gap [Moles/Vol] 12 mmol/L Normal 6-[address] [facility] Comment on above: Performed By: #### 3 5712707, 1135752, 0355592, 5054204, 86701902, 6619708, 20413047, 2867410 #### [facility] [address] [place] [address] Calcium [Mass/Vol] 9.0 mg/dL Normal 8.9-11.1 [facility] Comment on above: Performed By: #### 3 2773057, 6948653, 8585107, 6716316, 36318364, 3562517, 66635289, 2227336 #### [facility] [address] [place] [address] Chloride [Moles/Vol] 104 mmol/L Normal 101-111 [facility] Comment on above: Performed By: #### 3 7514004, 5049775, 7895703, 7860779, 57388581, 9649726, 81068712, 1477980 #### [facility] [address] [place] [address] CO2 [Moles/Vol] 24 mmol/L Normal 21-31 [facility] Comment on above: Performed By: #### 3 0698224, 9685793, 9687043, 3861477, 34105555, 8190629, 15866521, 0703452 #### [facility] [address] [place] [address] Glucose [Mass/Vol] 87 mg/dL Normal 55-199 [facility] Comment on above: Result Comment: If t his glucose result represents a fasting glucose, interpretation should refer to the following reference range: 55-99 mg/dL Performed By: #### 3 2045594, 2946857, 7001000, 3572592, 69324237, 6153867, 62799690, 5740835 #### [facility] [address] [place] [address] Potassium [Moles/Vol] 3.7 mmol/L Normal 3.5-5.[address] [facility] Comment on above: Performed By: #### 3 8296038, 9610181, 0779682, 6100922, 04251723, 5219363, 12562385, 3014072 #### [facility] [address] [place] [address] Sodium [Moles/Vol] 136 mmol/L Normal 135-145 [facility] Comment on above: Performed By: #### 3 4898734, 2699194, 4676590, 2146335, 10430954, 6391537, 42050152, 8809045 #### [facility] [address] [place] [address] CBC w/ Auto Diffon Erythrocyte distribution width (RBC) [Ratio] 14.6 % High 10.9-14.2 [facility] Comment on above: Performed By: #### 3 9765675, 7541291, 9279485, 5284923, 96326831, 9090200, 31733458, 3116544 #### [facility] [address] [place] [address] Hematocrit (Bld) [Volume fraction] 36.0 % Normal 34.0-46.0 [facility] Comment on above: Performed By: #### 3 0436006, 8995417, 0687712, 6692693, 47220919, 8674797, 13670542, 4768574 #### [facility] [address] [place] [address] Hemoglobin (Bld) [Mass/Vol] 12.3 g/dL Normal 12.0-16.0 [facility] Comment on above: Performed By: #### 3 5681597, 4355670, 8375459, 4713821, 72328702, 4680007, 85976014, 8699362 #### [facility] [address] [place] [address] MCH (RBC) [Entitic mass] 26.4 pg Low 27.0-34.0 [facility] Comment on above: Performed By: #### 3 5806862, 4106957, 2732822, 3600312, 66662622, 4150477, 19275698, 0559020 #### [facility] [address] [place] [address] MCHC (RBC) [Mass/Vol] 34.1 g/dL Normal 31.4-36.[address] [facility] Comment on above: Performed By: #### 3 0285046, 3806527, 1320880, 8364283, 18993590, 1705332, 10032392, 6508120 #### [facility] [address] [place] [address] MCV (RBC) [Entitic vol] 77.3 fL Low 80.0-100.0 [facility] Comment on above: Performed By: #### 3 9942620, 8736268, 4542509, 4453570, 43817921, 6145721, 91768725, 1223432 #### [facility] [address] [place] [address] Platelet mean volume (Bld) [Entitic vol] 9.3 fL Normal 6.4-10.8 [facility] Comment on above: Performed By: #### 3 0935501, 7928308, 9160649, 8609061, 27021470, 2273493, 00943239, 2658302 #### [facility] [address] [place] [address] Platelets (Bld) [#/Vol] 250.0 E9/L Normal 150.0-500.0 [facility] Comment on above: Performed By: #### 3 8602139, 6159985, 4998168, 4404271, 25542015, 5845847, 09463480, 2207123 #### [facility] [address] [place] [address] RBC (Bld) [#/Vol] 4.6 E12/L Normal 4.3-5.9 [facility] Comment on above: Performed By: #### 3 0684104, 3568942, 2429959, 3527622, 26657798, 9039583, 28414071, 7578832 #### [facility] [address] [place] [address] WBC corrected for nucl RBC Auto (Bld) [#/Vol] 6.3 E9/L Normal 4.0-11.0 [facility] Comment on above: Performed By: #### 3 1726975, 4388475, 3304389, 9578952, 41952323, 2069911, 08025903, 1531827 #### [facility] [address] [place] [address] Consent for Treatmenton Consent for Treatment [id number] 0CD:127 Normal [facility] Discharge Instructionson Discharge Instructions [id number] 0CD:127 Normal [facility] ED Clinical Summaryon 2021 ED Clinical Summary [address] [address] ED Clinical Summary Person Information [facility]: [facility] 31 [facility] : 1990 Sex: Female Language: Sign Language PCP: BENTLEY LUCERO CNP Marital Status: Phone: [phone] Visit Id: Visit Reason: Nausea; Chest pain; [...] 11/18/2021 14:15:52 11/18/2021 14:15:52 11/18/2021 14:15:52 ADDRESS: [address] [place] [phone] PHYS DOC NOTES: MEDICAL INFORMATION: Prescriptions Given: New Medications [facility], [address] [place], [place] [id number], [phone] omeprazole (omeprazole 40 mg Balbir-) 1 Capsules By Mouth every day for [...] up: With: Address: When: BENTLEY LUCERO [address] [place] [address] [employer] In 3 days 11/21/2021 DIAGNOSIS: Gastritis Normal [facility] ED Patient Education Noteon 11-18-2021 ED [...] medicines. These include steroids, antibiotics, and some fixq-zda-rllselq medicines, such as aspirin or ibuprofen. ? [...] these instructions at home: Medicines ? Take pguc-edk-ormiqxs and prescription medicines only as told by [...] 08/25/2002 Document Revised: 01/18/2019 Document Reviewed: 01/18/2019 [facility] Patient Education ? 2019 [employer] Normal [facility] ED Patient Summaryon 022 ED Patient Summary [address] [address] Patient Discharge Instructions Person Information Name: LEENA INTERIANO Age: 31 Years Arrival Date: 11/18/2021 12:10:57 Discharge Diagnosis: Gastritis Primary Care Physician: BENTLEY LUCERO CNP Provider Information Primary Provider: Kristopher Clemons DO Advanced Breaker Operator:Grant Jacob PA-C The exam and treatment you received in the Emergency Department were for an urgent problem and are not intended as complete care. It is important that you follow up with a doctor, nurse practitioner, or physician?s psychiatric technician assistant for ongoing care. If your symptoms [...] With: Address: When: BENTLEY LUCERO [address] [place] [address] Business (1) In 3 days 11/21/2021 In the event that this physician does not participate in your insurance network, please consult with your insurance company to find a nearby participating provider. Patient Education Materials: Gastritis, Adult A MESSAGE TO ALL PATIENTS REGARDING OPIOIDS PRESCRIPTION OPIOIDS: WHAT YOU NEED TO KNOW Prescription opioids can be used to help relieve acjgidcd-vx-cukbov pain and are often prescribed following a [...] be struggling with addiction, tell your health career services director and ask for guidance or call [facility]?S National Helpline at 7-628-461-JSZI. d Source: Department of Health and Human Se (more content not included)... Normal [facility] Hep Func Panelon 11-18-2021 Bilirubin.indirect [Mass or moles/Vol] UTC Abnormal 0.1-0.9 [facility] Comment on above: Result Comment: Resu lt verified by Discern Rule. Performed result UTC (Unable to Calculate) was sent as an Alpha code due the inability to calculate a valid numeric value. Performed By: #### 3 6995305, 6327983, 7161983, 2635286, 90130943, 9452623, 74325590, 3102332 #### [facility] [address] [place] [address] Albumin [Mass/Vol] 4.0 g/dL Normal 3.3-5.0 [facility] Comment on above: Performed By: #### 3 9802965, 8468695, 1460546, 4872566, 84670188, 5582091, 44032952, 8996098 #### [facility] [address] [place] [address] Albumin/Globulin (S) [Mass conc ratio] 1.2 Normal 1.1-2.2 [facility] Comment on above: Performed By: #### 3 9820555, 5434689, 8150333, 1142962, 58934569, 4965408, 73909642, 0731563 #### [facility] [address] [place] [address] ALP [Catalytic activity/Vol] 50 Int._Unit/L Normal 21-98 [facility] Comment on above: Performed By: #### 3 7555585, 9151775, 3474259, 2558588, 95013744, 4095153, 70637503, 0258317 #### [facility] [address] [place] [address] ALT No additional P-5'-P [Catalytic activity/Vol] 14 Int._Unit/L Normal 6-46 [facility] Comment on above: Performed By: #### 3 7376953, 4290468, 5524217, 6053072, 64957423, 1371334, 13667395, 5458196 #### [facility] [address] [place], [place] [address] AST [Catalytic activity/Vol] 17 Int._Unit/L Normal 5-43 [facility] Comment on above: Performed By: #### 3 8617890, 8827071, 7561936, 4023417, 01358981, 8552506, 92610362, 3199589 #### [facility] [address] [place] [address] Bilirubin [Mass/Vol] 0.6 mg/dL Normal 0.0-1.1 [facility] Comment on above: Performed By: #### 3 9450449, 0174800, 6099270, 8135715, 40167387, 2503557, 55937673, 0126287 #### [facility] [address] [place] [address] Bilirubin.direct [Mass/Vol] mg/dL Normal 0.1-0.4 [facility] Comment on above: Performed By: #### 3 1556247, 8153181, 6578906, 8690370, 30161793, 4485934, 51724765, 8920926 #### [facility] [address] [place] [address] Globulin (S) [Mass/Vol] 3.3 g/dL Normal 1.4-4.0 [facility] Comment on above: Performed By: #### 3 1309451, 3302822, 2243518, 1812948, 00910443, 6084697, 11682644, 7174194 #### [facility] [address] [place] [address] Protein [Mass/Vol] 7.3 g/dL Normal 6.0-7.8 [facility] Comment on above: Performed By: #### 3 5174686, 9014732, 9891338, 6797179, 74412626, 3668375, 59201468, 0135648 #### [facility] [address] [place] [address] Lipase Levelon 11-18-2021 Lipase [Catalytic activity/Vol] 27 U/L Normal 13-58 [facility] Comment on above: Performed By: #### 3 6191801, 1320928, 0588646, 3042121, 19844633, 6266416, 02618950, 8295444 #### [facility] [address] [place] [address] Manual Diffon 11-18-2021 Band form neutrophils/100 WBC (Bld) 6 % Normal 0-10 [facility] Comment on above: Order Comment: Order Added by Discern Expert. Performed By: #### 3 5648774, 7476814, 2596313, 4740932, 95868945, 5355549, 05023910, 3829228 ####[facility] [address] [place] [address] Basophils/100 WBC (Bld) 1 % Normal 0-2 [facility] Comment on above: Order Comment: Order Added by Discern Expert. Performed By: #### 3 4117300, 6074756, 1677627, 7062984, 30243245, 8550390, 89775380, 7016585 ####[facility] [address] [place] [address] Eosinophils/100 WBC (Bld) 2 % Normal 0-8 [facility] Comment on above: Order Comment: Order Added by Discern Expert. Performed By: #### 3 8483706, 8627128, 4309100, 2933040, 74500540, 7614353, 34975005, 9415368 ####[facility] [address] [place] [address] Lymphocytes/100 WBC (Bld) 25 % Normal 14-50 [facility] Comment on above: Order Comment: Order Added by Discern Expert. Performed By: #### 3 1264503, 2784049, 7511205, 0198949, 97393747, 8603357, 67974783, 2322941 ####[address] [address] Monocytes/100 WBC (Bld) 10 % Normal 4-14 [facility] Comment on above: Order Comment: Order Added by Discern Expert. Performed By: #### 3 2928212, 5223515, 5203662, 6496210, 27023855, 0028774, 59028565, 6050531 ####[address] [place] [address] Morphology Doroteo (Bld) [Interp] Normal Normal [facility] Comment on above: Order Comment: Order Added by Discern Expert. Performed By: #### 3 1473221, 5846012, 4978072, 0904845, 96393251, 9637505, 08671095, 4651641 ####[facility] [address] [place] [address] Segmented neutrophils/100 WBC (Bld) 56 % Normal 36-75 [facility] Comment on above: Order Comment: Order Added by Discern Expert. Performed By: #### 3 6293363, 0071334, 1300510, 5964882, 92900361, 8747017, 79999476, 3543487 ####[facility] [address] [place] [address] Variant lymphocytes LM Ql (Bld) 0 % Invalid Interpretation Code [facility] Comment on above: Order Comment: Order Added by Discern Expert. Performed By: #### 3 0434382, 3739702, 6843622, 8082248, 10702887, 5518089, 04617454, 2303520 ####[facility] [address] [place] [address] Prescriptions/Work Noteson 0 11-18-2021 Prescriptions/Work Notes [id number] 0CD:127 Normal [facility] Troponin 0 Hr.on 11-18-2021 Troponin I.cardiac [Mass/Vol] ng/mL Low 10.10-27.10 [facility] Comment on above: Result Comment: The 95% CI (Confidence Interval) PPV (Positive Predictive Value) for myocardial infarction in females is 38 pg/mL, in males 51 pg/mL. The results should be used in conjunction with clinical conditions of myocardial infarction. (Access High Sensitivity Troponin I Instructions For Use, Alec Naomi, April 2018) Performed By: #### 3 0932063, 8361677, 0124677, 3481821, 40719219, 3131795, 69712951, 8716000 #### [facility] [address] [place] [address] XR Chest 2 Viewson XR Chest 2 [...] العراقي MD Transcribed by: MARÍA ELENA Technologist: NURIS Gonzalez [facility] eGFRon 11-18-2021 GFR/1.73 sq M.predicted among blacks MDRD (S/P/Bld) [Vol rate/Area] mL/min/{1.73_m2} Normal >=59 [facility] Comment on above: Order Comment: Order added by Discern Expert. Result Comment: eGFR is race adjusted. AA=. Performed By: #### 3 0052086, 4559682, 5587661, 9016609, 66817952, 6257733, 14410482, 8140152 #### [facility] [address] [place] [address] GFR/1.73 sq M.predicted among non-blacks MDRD (S/P/Bld) [Vol rate/Area] mL/min/{1.73_m2} Normal >=59 [facility] Comment on above: Order Comment: Order added by Discern Expert. Result Comment: Field Artillery Radar Operator chance kidney disease could be indicated at eGFR's of less than 60 mL/min/1.73m2. Kidney failure is indicated at less than 15 mL/min/1.73m2. Performed By: #### 3 8430115, 4396068, 6966339, 9066358, 93061548, 4404629, 85913650, 7066472 #### [facility] [address] [place] [address] Coding Summary.on 09-25-2021 Coding Summary. CD:[id number] Gh 0bWw+PGhlYWQ+KB2NEYOuC 62scIQelK2FI6oOZS6TEXF IREQLRW3MNR3isMY9UObtP 2VybiAv AkkanAPhKC02ENy5WHC1vK zaCWjxbA6xeNTzF2p9QnVb KQ39kZ58TSwfUDKnAnC5Qc ZpbjsgbWFy G5rhPvIqaKTjXln+PHRhYm xlIHdpZHRoPScxMDAlJyBz oLhaFY9yLb5xKFZtEMIdzC xhcHNlOiBj z6thJCAnQRfhQH5xrPceC4 PxcIU8ECCcm0m9Sr58kDJ+ BZXsQIL6nAhnIImsw347Lx Wgm2emWGJ8 gRUaJJahBQB9A72kz7B8KM ZiFRStZON3dNK2mS0jcRag kkafL1PxpYStXlJ8HJD3vX NpbD0miRfg yrlxlN5uAfx+L54CLX4NLZ RLJY8FXcj3U1EdTfqxuQN+ GR13TSMyMO58oBCrbDZkw9 vstTx0AtAe JDUiWCB1vGnnLCdlh8EjRW WpC41swZJid2Q2LDEwbXvz jFRxCjKjePW9xI1cMBognv egs7rrznog Gjqmw8uiqy80mR75N11xJC uuWOXpFDP4CPFbLYHrmRwm ht4zyZ4bQw2+BHlwp8qbn7 uylBb2RhZy SHXxvvFkpXtbTKH6n1HeHm 67S7SmsWtmu1YfGjq9mv94 bADvo9V2wYB1EOwfEPQxhS 3rUTxiRiV9 XNNrAiCiuN43lSUqTRnuZl 6lqGbfrFiiBV5pZWAplsuw QSXkrZ7cJMLrrQEofUjkLK 4wNTBpbjtm v058AfHkDVZ0OQYgpEYgZ3 LlyF0pHnRjEMNsASXbR0Lv qTHsYHmbU041EHxrCxX8LJ LbjoPqK2Iv MDXudQftQyW8o1F6Bn3Vg8 FhvmlbIII8QXynPHLmYxPb BtYlCdK1G1HfDiv3LKQbhG tkKN6zY7Ga OBLidpdrbnxdpWO7RLXmNK UalZ24hFFsWKigJp6az4H4 x795SCZbKBAjlR77Ym9isP ogMTBwdCBU rL9zmgefy5waodueEvYnVZ PaOFt7UCh1VRXqaZdjLoZj NPF3VfZ7WZI6rTKyfC8wgE omvtqgjG2m Oyc+T56omA2iYRT8NTV1wr ttSPXaexOqDF48FO57U0Zp PjwvdGFibGU+PGRpdiBzdH psTN0fPkYv k4mpo4NfYSkgS9KnRRPdRH wbOfj9THSqTUP2kFO6cG8j VDCzCAres8A4zVU3I0Trhh Dusq5cv1op THDuWGelJ14wqGXur5C7RD EqmKS0SSNogExgHwVvgR76 Oyc+BRJcuLlby1ZiNcaym0 zkh4nvgDn1 TeLaWTPjchXpwZjrDMC0p6 JaIi73L74hJVitJQMpBSUf ULMwJJDpsPposa4ozQ5nBt 8+PGNvbCB3 rNW9nK5iJBXqQnL9BRruF2 10KlTfmLFgFynzz1vyp7vx wNc3DrBgSLDcnkZsdPsfSA I3a7XgIf56 Q40mERqfUFIyXNHqLFFrWB KygDaeqz4fyR6zFx0+PC9j g0uezq04iD85oMG+PHRkIH I0bAjaBXlp KYQhdH5vCOxgQrS9OYSnBh TvnN13vZMaTVlsQi5vjFpa kDuvMU2gECGfpemod070Fm Spf3bzIICs pKHsZOqbRJE0F91sy0A2GA UjOKFzVEV0mLT2uK8fgWuv bjogbGVmdDsgdmVydGljYW tcXTibU451 IHRvcDsnPlBhdGllbnQgTm DcWVw0A8EoGte9MXJwxOcq XL6erNSpMKjuVc9zxNrnuN rwNN0mSQZk qtrfu735IhFvh6lxVJQnrE BcRUhtSFW4H89dd7N9RQGe ZAGkVCU3pLQ7iG9pdKmipy ogbGVmdDsg xnUmzOckHXraIMwtJ353MR RvcDsnPkJpcnRoIERhdGU6 QC00YF25dZLrn2B5vZP7H6 BhZGRpbmct hqelzVV4LEBdOHIwsF55To 9yfJvdXj1zZBXiLXG1LYAl oVMcO4XhcQ9xApUwLQDjDB XyB9YuzUNm ZUcbZ378MGrhCfB0JVCuyt VxJ7DsVVKvhTcsMzW8o6S1 Xe2IM4S9NK93QH73lRWpd0 E9bPI9R3Yx LFAmhcdethdfxIM1KMBxQG RafV35Rs5mlTphDb8aDIBe IXV1DRNihEIcO8AgeR9fIg AjMDAwMDAw F0NgnVBjYMvpQ565GPvtAb W6ATOvmrFkI8HdSRIrgAcy WuX9h8B0Lw9DYBv3UP83ZR 91zDXub5X8 yCZ2K3XnAJInpqgpqhhpdJ Y9MGOyLMMtvI64Kw5gtFaf Yg3zWROoUSV7DDHxfZLyM3 OehJ9kLcWm CLZiGGXgE0UkjLKyOTwhB3 33HSjnWyE6LLTexgAnO5Zo WPWjqHmqViM9f9B0Ji6UXV XyKI85YLF5 qMB5RG36DF62B6BhZijwvU FibGU+PHRhYmxlIHdpZHRo MUfgKTWsOmOpiHgiRD3wGc 9yZGVyLWNv bZfvoCYuJsXwf9quZRYzXZ iuCF3uoJrwF7KfaZF5QNPe i0e0Gr06C89iP2NwmLI+PG DwtAW5dBY5 nX7wXbMwFmV4ACvyP149Zk PsrUZvYelch8ftc8fsvDz8 ToF1NTPedyLdfBrqXRZ2i8 OnTt13L30k IHdpZHRoPSIxNSUiIHZhbG zgsl5kbA9hVt7+PGNvbCB3 bHU6aB0gMeZpRxU0RZonU9 49InRvcCIv Kvpkk7ati4mdaCs6ClKyGP YlqpPogRljWGO9k8SnOk78 O1UhbXwhd8HaCpz5wk90vJ Xiv2M1vNH1 K6LpTVVqblhllZKzxYdsEI 4lZUSjqwtvGMQjzU0bIODw X0w5MrOfBdW2YOcgM0Rdcd P6LSDtfFIs EUtuHWQ6F11pn4A6OOMhHQ QkMVY8cHT5fU8ekUkkhwjo bGVmdDsgdmVydGljYWwtYW uwV429OGXp nOssLYIdkM0rGGLovBEgkO lvLA4sOGJhpqrhHyySMKbz IEpBREEgTTwvdGQ+PHRkIH P8xKcsTNxc ZIJmxQ3iZQDsB0z3WqZwGx I8LMptO8GeGNKtmrqfNb88 zH7zWdFdOeU1VTtqF7Fijn Y7BSTjfIJr GKulRZJ0A17tv6M1YDTbMQ TdHWG3rJD6gY8omItigtfb bGVmdDsgdmVydGljYWwtYW crA308ELPj tZzaQpK0UjV7JmH1OVP2X1 QqJfl4PGTelFlrGA8chPVf OZzbDf0utVsucFodHW6yWX BpbjtwYWRk fI0nDTCpwGEfxZqcIQ7uVD Bwmnzsd651LoQiIFJ7HABp nPUoY7NyhT4eMbAeRXOpEY PqX1CbbQPa TBepT230PJsjQqY8WIYtru DqM2BbWBMfxGbrXwB8a2A5 Ir5xTBVVQIPnkujxbMN+PH NxPEF4tRxg FGxtRHZxlS8nYZQgW4f8Pb NmBiD3VHtbW3EqAPSgurik Lb59oZ4sAhBoYsF3JCrtP3 YwltV0DFQj pRJjCEowVKK4A92mf3E3LW XvMSHzEEE2rPQ1yD2teZrl bjogbGVmdDsgdmVydGljYW apSUmdW180 IHRvcDsnPkZlbWFsZTwvdG Q+ZRDlIUW7qPgeUWphNAOb pQ3oMSTjL6s2BeFlRmR2GQ dkD7PyCAVy oncjMc93yB7dSrHlYdS5ZG ehE3JzwvX1DDEkhTPiLXrl VEK8Q97ou2N8QUZuVYLlUO H7sGO8rW6b bGlnbjogbGVmdDsgdmVydG txAZywZQzqB845GZTowKsy XiEzRJGtDY3sgJnjmKR+PC 02yu36L1Vi OrfgWhu8UBWsLFL1bVF8aE 9tPWSwWRtdw6Q7gBT1L4Xa jiPbpg7bf7wzRFDbNIstG6 5eyHNxv7T3 DENfxXH4NYEtpFaaTrVnuB 93Oyc+VXLxyKwuy5JvPsde o0vxt7xieWn9SgEySAAzlb FsaWduPSJ0 f2OyTv43D37pHYwzLEDcNU QrESHiEFJahVylwz4psE9q Ii8+OGAksSG9nGK4rM4bHj GiVtI3SYsm I129TzIhtOLjTqbde9piy3 yrtCc5IeBiVTCijxPcxYzt DQZ6f7FkYf01R6DymEebw5 DdFta9bm68 sXXji7Y8wUB2D9BxTJUpzl tqqWEiyKusMV1rNWAunobv UPLupE7qQTUcE7o0MzQrSb E6HNniY7Vg hmG4OKDydZKxEHPbcVSHyT 7jrsmra0pqhxczXqKuZZOu HWn0ANc1LQPhzZwuIlNkUF N6KzO8WKO5 zEWwfN4jdAnazomckO8iAo c+UJe4f5tmmZSwDF9ejVG9 ZX88GM92fSUat5W1vSU1F5 BhZGRpbmct pbgnxLU0HERsJPKbbT39Op 8zoVyfTc6qFAAqULH8CUNh fKOtW7KhaR2gDpAtOMTqDR NkQ9DwhKDa VZnoP629UKgiJcZ8NKXuyf DoV3MvHTQiqTtiZnS8l5C6 Sv2TFS64TN56FL68oOYwt8 Y8nCU8Y5Nz KRIjneohptncrMZ0BMWfPK UmaY34Cr5lcZybPh0lKHNx LBV9PXCiyCFaE2AjfQ5nWc AjMDAwMDAw F9JrnAEpIDasR321DVybMo V4GHXmnxAfT8DoPRJnqFbl AkD5i7E1Dj0FFq66ZQ68FQ 71qNShf4K8 iIK6Z8RjUUFjtnbhrzoadS F0CTWxCRMuyI87Dl2rmCkg St0kHSRpSIO0XKZmdCJvC9 XopS4bYeWy RHAzUKFkO8CtsYFlBByiB9 22MJrwGmF1JTInnlWqQ3Xj ZPAkwJlqEdQ9e2B6Jv6HOY vnosi9O8Br PjwvdHI+KI68DZIjYO68rX KuoEPsv1gkbVa7ZhTfATKe WRB4aJpqSBnoh7MvGOGyS8 6mcUMtz8I0 IGNv (more content not included)... Normal [facility] COVID-19 ([facility])on 09-24-2021 SARS-CoV-2 (COVID-19) RNA PARI+probe Ql (Resp) Not detected Normal Not Detected [facility] Comment on above: Result Comment: This test result should be correlated with clinical presentations and medical history by a healthcare provider to determine its clinical significance. This assay was performed by a reverse transcriptase real-time polymerase chain reaction (rt PCR) method on the [employer] system. This test has been authorized [...] or revoked sooner. Performed By: #### 2 [id number] ####[place] [id number] SARS-CoV-2 (COVID-19) RNA PARI+probe Ql (Unsp spec) Pass Normal Pass [facility] Comment on above: Performed By: #### 2 [id number] ####[place] [id number] Specimen source Nom (Unsp spec) Nasal Normal [facility] Comment on above: Performed By: #### 2 [id number] ####[place] [id number] ADMITTED TO INTENSIVE CARE UNIT FOR CONDITION OF INTEREST:FIND:PT: Unknown Normal [facility] Comment on above: Performed By: #### 2 [id number] ####[place] [id number] EMPLOYED IN A HEALTHCARE SETTING:FIND:PT: Unknown Normal [facility] Comment on above: Performed By: #### 2 [id number] ####[place] [id number] FIRST TEST FOR CONDITION OF INTEREST:FIND:PT: Unknown Normal [facility] Comment on above: Performed By: #### 2 [id number] ####[place] [id number] HAS SYMPTOMS RELATED TO CONDITION OF INTEREST:FIND:PT: Unknown Normal [facility] Comment on above: Performed By: #### 2 [id number] ####[place] [id number] HOSPITALIZED FOR CONDITION OF INTEREST:FIND:PT: Unknown Normal [facility] Comment on above: Performed By: #### 2 [id number] ####[place] [id number] STATUS:FIND:PT: Unknown Normal [facility] Comment on above: Performed By: #### 2 [id number] ####[place] [id number] RESIDES IN A CRITICAL ACCESS HOSPITAL CARE SETTING:FIND:PT: Unknown Normal [facility] Comment on above: Performed By: #### 2 [id number] ####[place] [id number] Consent for Treatmenton 09-14 Consent for Treatment [id number] 2009 [id number] 0CD:127 Normal [facility] Discharge Instructionson Discharge Instructions [id number] CD:127 Normal [facility] ED Clinical Summaryon 2021 ED Clinical Summary [place] [id number] ED Clinical Summary Person Information Name: LEENA INTERIANO [place] Age: 31 Years : 1990 Sex: Female Language: Sign Language PCP: BENTLEY LUCERO CNP Marital Status: Phone: [phone] Visit Id: Visit Reason: Sinus Pain/Congestion; RUNNY [...] 09/24/2021 11:26:44 09/24/2021 11:26:44 09/24/2021 11:26:44 ADDRESS: [address] [place] [id number] PHYS DOC NOTES: MEDICAL INFORMATION: Prescriptions Given: New Medications [facility] 1985, [address] [place], [place] [id number], [phone] brompheniramine/dextro methorphan/PSE (Bromfed DM oral syrup) 10 [...] up: With: Address: When: BENTLEY NIC [address] [place] [address] Business (1) In 3 days 09/27/2021 DIAGNOSIS: Acute upper respiratory infection Normal [facility] ED Note-Physicianon 09-24-19 22 ED Note-Physician Basic Information Time Seen: Grant [...] for 7 day(s), 280 mL, Refill(s) 0, [facility], 164, cm, 09/24/21 11:04:00 EST, Height/Length Dosing, 89, kg, 09/24/21 11:04:00 EST, Weight Dosing dexamethasone, 10 mg = 2.5 mL, Injection, Oral, Once, Stop date 09/24/21 11:06:00 EST, STAT, Start date 09/24/21 11:06:00 EST, 09/24/21 11:06:00 EST COVID-19 ([facility]) Disposition Plan Patient Discharge Condition Disposition: Discharged home Condition: Improved and stable Counseled: Patient and/or family were counseled to workup, results, treatment plan and follow-up recommendations Discharge Prescription List Prescriptions Bromfed DM oral syrup, 10 mL, Oral, QID, PRN Follow-up With When Contact Information BENTLEY NIC In 3 days 09/27/2021 EST [address] [place] [address]- Business (1) Additional Instructions: Patient Education COVID-19 Upper Respiratory Infection, Adult Attestation Patient seen and evaluated by the physician psychiatric technician assistant. Attending physician was present in the emergency department and supervised care. This visit was performed by both the physician and an APC. I performed all aspects of the MDM as documented. This report was transcribed using voice recognition software. Every effort was made to ensure accuracy, however, inadvertently computerized press writer mistakes may be present. Appropriate healthcare PPE [...] available. Diagnostic Results No qualifying data available. [facility] Comment on above: Result Comment: Elec tronically Signed By: Grant Jacob PA-C\.br\Date and Time Signed: 09/24/21 11:08 EST\.br\Electronically Co-Signed By: Devendra Miller M.D.\.br\Date and Time Co-Signed: 09/24/21 15:49 EST ED Patient Summaryon 022 ED Patient Summary [address] [address] Patient Discharge Instructions Person Information Name: LEENA INTERIANO Age: 31 Years Arrival Date: 09/24/2021 10:56:03 Discharge Diagnosis: Acute upper respiratory infection Primary Care Physician: BENTLEY LUCERO CNP Provider Information Primary Provider: Devendra Miller M.D. Advanced Breaker Operator:Grant Jacob PA-C The exam and treatment you received in the Emergency Department were for an urgent problem and are not intended as complete care. It is important that you follow up with a doctor, nurse practitioner, or physician?s psychiatric technician assistant for ongoing care. If your symptoms [...] Instructions: With: Address: When: BENTLEY LUCERO [address] [place] [address] [facility] () In 3 days 09/27/2021 In the event that this physician does not participate in your insurance network, please consult with your insurance company to find a nearby participating provider. Patient Education Materials: COVID-19; Upper Respiratory Infection, Adult A MESSAGE TO ALL PATIENTS REGARDING OPIOIDS PRESCRIPTION OPIOIDS: WHAT YOU NEED TO KNOW Prescription opioids can be used to help relieve zvahtlyz-al-uwnybs pain and are often prescribed following a [...] be struggling with addiction, tell your health career services director and ask for guidance or call [facility] National Helpline at 1-922-843 (more content not included)... Normal [facility] Prescriptions/Work Noteson 0 09-24-2021 Prescriptions/Work Notes [id number] CD:127 Normal [facility] Chlamydia/GC DNA, Uron 03-16 Chlamydia Probe, Ur Negative Normal NEG [facility] Comment on above: Result Comment: CHLA MYDIA TRACHOMATIS DNA not detected by nucleic acid amplification. Performed By: #### U CGP ####[facility] [address] [place] [address] [id number] Gonorrhea Probe, Ur Negative Normal NEG [facility] Comment on above: Result Comment: NEIS SERIA GONORRHOEAE DNA not detected by nucleic acid amplification. Performed By: #### U CGP ####[facility] [employer] [place] [id number] Vaginitis DNA Probeon 2017 Protein Specimen Description .VAGINASpecial Requests NOT REPORTEDDirect Exam NEGATIVE for Gardnerella vaginalis NEGATIVE for Dora sp. NEGATIVE for Trichomonas vaginalis Method of testing is a DNA probe intended for detection and identification of Dora species, Gardnerella vaginalis, and Trichomonas vaginalis nucleic acid in vaginal fluid specimens from patients with symptoms of vaginitis/vaginosis. Report Status FINAL 03/16/2018 [facility] Comment on above: Performed By: #### V AGDNA ####[facility] [address] [place] [id number] Progress Noteon 03-15-2018 HIM IP Note OR Track Repair Laborer Normal [facility] Progress Noteon 12-06-2017 HIM IP Note OR Track Repair Laborer [facility] Chlamydia/GC DNA, Uron 11-26 Chlamydia Probe, Ur Negative Normal NEG [facility] Comment on above: Result Comment: CHLA MYDIA TRACHOMATIS DNA not detected by nucleic acid amplification. Performed By: #### U CGP ####[place] [address] [place] [address] Gonorrhea Probe, Ur Negative Normal NEG [facility] Comment on above: Result Comment: NEIS SERIA GONORRHOEAE DNA not detected by nucleic acid amplification.[address] [address] Performed By: #### U CGP ####[place] [address] [place] [address] Vaginitis DNA Probeon 2017 Protein Specimen Description .VAGINAL SWABSpecial Requests NOT REPORTEDDirect Exam NEGATIVE for Dora sp. NEGATIVE for Gardnerella vaginalis NEGATIVE for Trichomonas vaginalis Method of testing is a DNA probe intended for detection and identification of Dora species, Gardnerella vaginalis, and Trichomonas vaginalis nucleic acid in vaginal fluid specimens from patients with symptoms of vaginitis/vaginosis. Report Status FINAL 11/25/2017 Normal [facility] Comment on above: Performed By: #### V AGDNA ####[address] [address] Progress Noteon 10-20-2017 HIM IP Note OR Track Repair Laborer Normal [facility] Vital Signs Date Time Vital Sign Value Performing Clinician Faci lity 08-29-2022 17:32-0500 Body temperature 98.78 [degF] Kristopher Clemons [facility] 08-29-2022 17:32-0500 Diastolic blood pressure 96 mm[Hg] Kristopher Sextone [facility] 08-29-2022 17:32-0500 Heart rate 74 /min Kristopher Kaci [facility] 08-29-2022 17:32-0500 Respiratory rate 18 /min Kristopher Clemons [facility] 08-29-2022 17:32-0500 SaO2% (BldA) [Mass fraction] 99 % Kristopher Clemons [facility] 08-29-2022 17:32-0500 Systolic blood pressure 143 mm[Hg] Kristopher Clemons [facility] 06-18-2022 12:13-0400 Body temperature 98.42 [degF] Connor Emanuel [facility] 06-18-2022 12:13-0400 Diastolic blood pressure 88 mm[Hg] Connor Emanuel [facility] 06-18-2022 12:13-0400 Heart rate 78 /min Connor Emanuel [facility] 06-18-2022 12:13-0400 Respiratory rate 20 /min Connor Emanuel [facility] 06-18-2022 12:13-0400 SaO2% (BldA) [Mass fraction] 98 % Connor Emanuel [facility] 06-18-2022 12:13-0400 Systolic blood pressure 133 mm[Hg] Connor Emanuel [facility] 05-28-2022 10:50-0400 Body temperature 98.6 [degF] Connor Emanuel [facility] 05-28-2022 10:50-0400 Diastolic blood pressure 97 mm[Hg] Connor Emanuel [facility] 05-28-2022 10:50-0400 Heart rate 67 /min Connor Emanuel [facility] 05-28-2022 10:50-0400 Respiratory rate 18 /min Connor Emanuel [facility] 05-28-2022 10:50-0400 SaO2% (BldA) [Mass fraction] 98 % Connor Castellanos [facility] 05-28-2022 10:50-0400 Systolic blood pressure 140 mm[Hg] Connor Emanuel [facility] 01-09-2022 13:53-0400 Body temperature 98.6 [degF] [facility] 01-09-2022 13:53-0400 Diastolic blood pressure 99 mm[Hg] [facility] 01-09-2022 13:53-0400 Heart rate 83 /min [facility] 01-09-2022 13:53-0400 Respiratory rate 16 /min [facility] 01-09-2022 13:53-0400 SaO2% (BldA) [Mass fraction] 98 % [facility] 01-09-2022 13:53-0400 Systolic blood pressure 116 mm[Hg] [facility] Encounters Encounter Date Encounter Type Care Provider Facility Start: 10-06-2023 End: 10-06-2023 ambulatory ADRIANNA ANDINO Not Available Start: 09-28-2023 End: 09-29-2023 ambulatory George Bernstein MD Facility:[facility] Start: 08-10-2023 End: 08-11-2023 ambulatory George Bernstein MD Facility:[facility] Start: 06-22-2023 End: 06-23-2023 ambulatory George Bernstein MD Facility:[facility] Start: 06-08-2023 End: 06-09-2023 ambulatory George Bernstein MD Facility: [facility] Start: 05-25-2023 ambulatory Facility:9 [id number] Start: 04-22-2023 End: 04-22-2023 ambulatory Bentley Lucero Facility:[facility] Start: 04-22-2023 End: 04-22-2023 ambulatory Services [facility] Work Phone: [facility] Work Phone: Start: 04-22-2023 End: 04-22-2023 Patient encounter procedure Services [facility] Work Phone: [facility] Work Phone: Start: 04-16-2023 End: 04-16-2023 ambulatory Bentley E Spasic Facility:[facility] Start: 04-16-2023 End: 04-16-2023 ambulatory BANQUET HOUSEPERSON-C Bentley Spasic Work Phone: [facility] Work Phone: Start: 04-16-2023 End: 04-16-2023 Departed Referred BANQUET HOUSEPERSON-C Bentley Spasic Work Phone: [facility] Start: 01-27-2023 ambulatory NARENDRANATH LAKSHMIPATHY . Facility: Start: 01-20-2023 End: 01-21-2023 ambulatory NARENDRANATH LAKSHMIPATHY . Facility:[facility] Start: 01-01-2023 End: 01-01-2023 ambulatory AESTON JOESPH . Facility:[facility] Start: 10-30-2022 End: 10-30-2022 ambulatory Bentley E Spasic Facility:[facility] Start: 10-30-2022 End: 10-30-2022 ambulatory BANQUET HOUSEPERSON-C Bentley E Spasic Work Phone: [facility] Work Phone: Start: 10-30-2022 End: 10-30-2022 Patient encounter procedure BANQUET HOUSEPERSON-C Bentley Spasic Work Phone: [facility] Work Phone: Start: 10-09-2022 End: 10-09-2022 ambulatory Bentley E Spasic Facility:[facility] Start: 10-09-2022 End: 10-09-2022 ambulatory BANQUET HOUSEPERSON-C Bentley E Spasic Work Phone: [facility] Work Phone: Start: 10-09-2022 End: 10-09-2022 Patient encounter procedure BANQUET HOUSEPERSON-C Bentley Lucero Work Phone: [facility] Start: 10-08-2022 End: 10-08-2022 ambulatory VANESSA JEREZ Facility: Start: 08-29-2022 End: 08-29-2022 Emergency department patient visit Kristopher Clemons Facility:[facility] Start: 08-29-2022 End: 08-29-2022 Emergency department patient visit Kristopher Clemons [facility] Start: 08-20-2022 End: 08-20-[address] KARMA HAY Facility: Start: 06-18-2022 End: 06-18-2022 Emergency department patient visit Connor Castellanos Facility:[facility] Start: 06-18-2022 End: 06-18-2022 Emergency department patient visit Connor Castellanos [facility] Start: 05-28-2022 End: 05-28-2022 Emergency department patient visit Connor Castellanos Facility:[facility] Start: 05-28-2022 End: 05-28-2022 Emergency department patient visit Connor Castellanos [facility] Start: 03-21-2022 End: 05-15-2022 ambulatory BENTLEY LUCERO Facility:[facility] Start: 03-12-2022 End: 03-12-2022 ambulatory Rangel Stanton Other [employer] Other Start: 03-12-2022 Telephone encounter Rangel PHILLIPS [facility] Start: 02-18-2022 End: 02-26-2022 Pre-admission assessment BENTLEY LUCERO [facility] Start: 02-16-2022 End: 02-16-2022 Emergency department patient visit Connor Castellanos Facility:[facility] Start: 01-09-2022 End: 01-09-2022 Emergency department patient visit Devendra Miller Facility:[facility] Start: 01-09-2022 End: 01-09-2022 Emergency department patient visit Devendra Miller [facility] Start: 11-18-2021 End: 11-18-2021 Emergency department patient visit Kristopher Clemons Facility:[facility] Start: 09-24-2021 End: 09-24-2021 Emergency department patient visit Devendra Miller Facility:[facility] Start: 03-16-2018 End: 03-16-2018 Ambulatory DION Guadarrama OPHELIA [facility] Start: 11-25-2017 End: 11-26-2017 Ambulatory DION Chiara OPHELIA [facility] Procedures Date Procedure Procedure Detail Performing Clinician Start: 04-22-2023 X-ray of cervical spine Services [facility] Work Phone: Start: 10-30-2022 CT of lumbar spine w ithout contrast BANQUET HOUSEPERSON-Rosy Lucero Work Phone: Start: 10-30-2022 Bilateral mammography N P-C Bentley Lucero Work Phone: Start: 10-30-2022 Ultrasonography of l eft breast BANQUET HOUSEPERSON-Rosy Lucero Work Phone: Start: 03-15-2018 C.TRACHOMATIS N.GONO RRHOEAE DNA, URINE DION OPHELIA Start: 03-15-2018 VAGINITIS DNA PROBE MAR Y OPHELIA Start: 11-25-2017 C.TRACHOMATIS N.GONO RRHOEAE DNA, URINE DION OPHELIA Start: 11-25-2017 VAGINITIS DNA PROBE MAR Y OPHELIA Plan of Treatment Date Care Activity Detail Author Start: 04-16-2023 [facility] Immunizations Immunization Date Immunization Notes Care Provider Oswaldo conner 06-06-2021 COVID-19 mRNA, Comirnaty (Pfizer) BANQUET HOUSEPERSON-C Bentley Nic Work Phone: [facility] 05-16-2021 COVID-19 Porsha Renee (Pfizer) BANQUET HOUSEPERSON-C Bentley Azaleasirosy Work Phone: [facility] Payers Date Payer Category Payer Self-pay [id number] 2022 Medicaid 2022 Medicare 2015 Medicare [id number] 1990 Unknown [id number] 2.16.8 40.1.203206.3.579.2.727 1990 Unknown [id number] 2.16.8 40.1.113994.3.579.2.727 1990 Unknown [id number] 2.16.8 40.1.386129.3.579.2.727 1990 Unknown [id number] 2.16.8 40.1.437937.3.579.2.727 1990 Unknown [id number] 2.16.8 40.1.559383.3.579.2.727 1990 Unknown [id number] 2.16.8 40.1.291881.3.579.2.727 1990 Unknown [id number] 2.16.8 40.1.668598.3.579.2.727 1990 Unknown [id number] 2.16.8 40.1.369230.3.579.2.727 1990 Unknown [id number] 2.16.84 0.1.821362.3.579.2.593 1990 Unknown [id number] 2.16.84 0.1.811702.3.579.2.593 1990 Unknown [id number] 2.16.84 0.1.484557.3.579.2.593 1990 Unknown [id number] 2.16.84 0.1.291293.3.579.2.593 1990 Unknown [id number] 2.16.84 0.1.744399.3.579.2.593 1990 Unknown [id number] 2.16. 840.1.676556.3.579.2.356 1990 Unknown [id number] 2.16. 840.1.099477.3.579.2.196 1990 Unknown [id number] 2.16. 840.1.168040.3.579.2.196 1990 Unknown [id number] 2.16. 840.1.980611.3.579.2.196 1990 Unknown [id number] 2.16. 840.1.754718.3.579.2.196 1990 Unknown [id number] 2.16.84 0.1.596952.3.579.2.1259 1958 Medicaid [id number] 2. 16.840.1.942115.19 1958 Medicare [id number] 2.1 6.840.1.022485.19 Unknown [id number] 2.16.8 40.1.247757.3.579.2.531 Unknown [id number] 2.16.8 40.1.674836.3.579.2.531 Unknown [id number] 2.16.8 40.1.458734.3.579.2.531 Unknown [id number] 2.16.8 40.1.507714.3.579.2.531 Social History Date Type Detail Facility Tobacco [facility] Comment on above: Denies. Sex Assigned At Female [facility] Start: 06-18-2022 Tobacco smoking status Light t obacco smoker (finding) [facility] Comment on above: pt tab Start: 03-12-2022 End: 03-12-2022 Tobacco smoking status NHIS Never smoked tobacco (finding) [facility] Start: 1990 Sex Assigned At Female [facility] Functional Status Date Assessment Result Facility 08-29-2022 Functional Status N/A [facility] 06-18-2022 Functional Status N/A [facility] 05-28-2022 Functional Status N/A [facility] Clinical Notes 09-24-2021 to 01-20-2023 Note Date & Type Note Facility 01-20-2023 Note CONSULTATION CONSULTATION DATE: 01/20/2023 TO: SUSIE Navarrete CHIEF COMPLAINT: Severe left lower back pain. HISTORY: Patient is deaf and we conducted our interview and examination process in the presence of one of our staff members, as well as the level designer was present online. Patient reports having a [...] our patients to inform us about any evkw-vqk-lgvjlkf medications or herbal remedies/nutritional supplements/alternative remedies. 2. [...] options with their primary care provider. [facility] 08-29-2022 Hospital Discharg e instructions Patient [...] Follow these instructions at home: Medicines Take qmvg-xpi-lilwfoh and prescription medicines only as told by [...] and water are not available, use hand product steward. Avoid contact with people who have cold [...] 10/08/2005 Document Revised: 07/14/2019 Document Reviewed: 02/18/2017 [employer] Patient Education 2019 [employer] Follow Up Care 08/29/2022 17:24:30 With:BENTLEY LUCERO Address: [address] [place] [address]- Business (1) When:09/01/2022 18:22:15 Comments:Follow-up with your primary care provider in 3 to 5 days. If symptoms worsen, do not improve, or new symptoms arise please report back to emergency department for further evaluation. [facility] 06-18-2022 Hospital Discharg e instructions Patient [...] medicines to help relieve symptoms, such as: Osvp-ncs-ebqhqug cold medicines. Cough suppressants. Coughing is a [...] and other clear broths. General instructions Take xwti-mih-aqtjbuk and prescription medicines only as told by [...] and water are not available, use hand product steward. ?Avoid touching your mouth, face, eyes, or [...] 02/24/2002 Document Revised: 09/08/2019 Document Reviewed: 04/16/2018 [facility] Patient Education 2020 [employer] Follow Up Care 06/18/2022 11:58:34 With:BENTLEY LUCERO Address: [facility] [place] [address] Business (1) When:06/21/2022 13:13:35 [facility] 06-18-2022 Evaluation + Plan note Extrac flavio from: Title:ED Note Author:Grant Jacob PA-C te:06/18/22 Upper respiratory infection (J06.9: Acute upper respiratory infection, unspecified) Orders: loratadine-pseudoephedrine, 1 tab(s), Oral, q12hr for 10 day(s), 20 tab(s), Refill(s) 0, [facility], 165, cm, 06/18/22 12:19:00 EDT, Height/Length Dosing, 86, kg, 06/18/22 12:19:00 EDT, Weight Dosing Rapid COVID Antigen ([facility]) [facility]09-14-2022 Evaluation + Plan noteExtracted from: Title:ED Note Author:Connor Castellanos DO Date: Chronic left-sided low back pain with left-sided sciatica (M54.42: Lumbago with sciatica, left side) Headache (R51.9: Headache, unspecified) Other chronic pain (G89.29: Other chronic pain) Orders: cyclobenzaprine, 10 mg = 1 tab(s), Oral, TID, PRN Muscle pain, # 15 tab(s), Refills(s) 0, Pharmacy: [facility], 165, cm, 05/28/22 10:56:00 EDT, Height/Length Dosing, 86, kg, 05/28/22 10:56:00 EDT, Weight Dosing ketorolac, 30 mg = 1 mL, Injection, IntraMuscular, Once, Stop date 05/28/22 11:29:00 EDT, STAT, Start date 05/28/22 11:29:00 EDT, 05/28/22 11:29:00 EDT methylPREDNISolone, = 1 packet(s), Oral, As Directed, as directed on package labeling, X 6 day(s), # 21 tab(s), Refills(s) 0, Pharmacy: [facility], 165, cm, 05/28/22 10:56:00 EDT, Height/Length Dosing, 86, kg, 05/28/22 10:56:00 EDT, Weight Dosing naproxen, 500 mg = 1 tab(s), Oral, BID, PRN for pain, # 20 tab(s), Refills(s) 0, Pharmacy: [facility], 165, cm, 05/28/22 10:56:00 EDT, Height/Length Dosing, 86, kg, 05/28/22 10:56:00 EDT, Weight Dosing orphenadrine, 60 mg = 2 mL, Injection, IntraMuscular, Once, Stop date 05/28/22 11:29:00 EDT, STAT, Start date 05/28/22 11:29:00 EDT, 05/28/22 11:29:00 EDT [facility]09-14-2022 Hospital Discharge instructions Patient Education 05/28/2022 [...] Follow these instructions at home: Medicines Take rimi-xjl-wcubxqh and prescription medicines only as told by your health care provider. Ask your health care provider if the medicine prescribed to you: ?Requires you to avoid driving or using heavy machinery. ?Can cause constipation. You may need to take these actions to prevent or treat constipation: ?Drink enough fluid to keep your urine pale yellow. ?Take uerz-gkg-rrxiorz or prescription medicines. ?Eat foods that are [...] 08/25/2002 Document Revised: 09/19/2019 Document Reviewed: 09/19/2019 [employer] Patient Education 2020 [employer] 05/28/2022 11:31:52 Tension Headache, Adult Tension Headache, [...] these instructions at home: Managing pain Take mdyp-waj-kookxvz and prescription medicines only as told by [...] 08/31/2006 Document Revised: 08/13/2018 Document Reviewed: 12/11/2017 [employer] Patient Education 2020 [employer] Follow Up Care 05/28/2022 10:44:46 With:BENTLEY LUCERO Address: [address] [place] [address]- Business (1) When:05/31/2022 11:30:41 Comments:Call the office [...] breath, or any new or worsening symptoms. [facility]06-07-2022 NoteMicrobiology PROCEDURE: Strep Screen Culture [R1] SOURCE: Throat BODY SITE: COLLECTED DATE/TIME: 02/16/2022 12:08 EDT RECEIVED DATE/TIME: 02/16/2022 14:27 EDT START DATE/TIME: 02/16/2022 14:27 EDT FREE TEXT SOURCE: Cary Archuleta PA-C, PA-C, Kathryn E. FINAL REPORTS Final Report [] Verified Date/Time: 02/18/2022 11:48 EDT No Pathogenic Streptococcus Isolated Performing Locations R1: This test was performed at: [facility], [address] [place] [address], [id number] , , ObxexjWadsworth-Rittman HospitalComment on above:Performed By: #### [id number], [id number] ####Velez [facility] [id number] [place], [place] [id number] NoteInfectious Disease COVID-19 Frequently Asked Questions COVID-19 (coronavirus disease) is an infection that is caused by a large family of viruses. Some viruses cause illness in people and others cause illness in animals like camels, cats, and bats. In some cases, the viruses that cause illness in animals can spread to humans. Where did the coronavirus come from? In August 2019, [employer] told the World Health Organization (WHO) of several cases of lung disease (human respiratory illness). These cases were linked to an open seafood and livestock market in the city of [facility]. The link to the seafood and [...] and virus naming World Health Organization (WHO): www.who.int/emergencies/diseases/lzvkx-iddvessrppk-6938/technical-g uidance/fhobhw-rue-ncwjhmcgaau-disease-(covid-2019)-htq-drr-zzztd-agii-mvhise-dj Who is at risk for complications from [...] testing. Samples may in (more content not included)...[facility] Hospital Discharge instructions Patient Education 01/09/2022 [...] the coronavirus come from? In August 2019, [employer] told the World Health Organization (WHO) of several cases of lung disease (human respiratory illness). These cases were linked to an open seafood and livestock market in the city of [facility]. The link to the seafood and [...] and virus naming World Health Organization (WHO): www.who.int/emergencies/diseases/kggbr-mkioyebdeik-9927/technical-g uidance/yvkjtb-uqz-mcsrabzlgbk-disease-(covid-2019)-cat-wss-ktnhg-gnay-tisbbi-gv Who is at risk for complications from [...] relieve his or her symptoms by using ehhr-upz-krtovbw medicines that treat sneezing, coughing, and runny [...] water are not available, use alcohol-based hand product steward. Avoid touching your face, mouth, nose, or [...] Prevention (CDC): www.cdc.gov/coronavirus/2019-ncov/travelers/index.html World Health Organization (WHO): www.who.int/emergencies/diseases/bdhjd-hnaoqwsumms-3379/travel-advice Know the risks and take action to [...] water are not available, use alcohol-based hand product steward. Cough or sneeze into a tissue, sleeve, [...] in hot, soapy water or use a flute teacher. Air-dry your dishes. Wash laundry in hot [...] Health Organization (WHO) Information and news updates: www.who.int/emergencies/diseases/xetsa-svgxvewjwtj-6048 Coronavirus health topic: www.who.int/health-topics/coronavirus Questions and answers on COVID-19: www.who.int/news-room/q-a-detail/k-d-iabuefirhgupq Global tracker: who.[employer] [place] Academy of Pediatrics (AAP) Information for families: www.healthychildren.org/[place]/health-issues/conditions/chest-lungs/Pages /2083-Mboke-Llqwcmirgzf.aspx The coronavirus situation is changing rapidly. Check your local health authority website or the CDCand WHO websites for updates and news. When [...] 12/27/2019 Document Revised: 12/27/2019 Document Reviewed: 12/27/2019 [employer] Patient Education 2019 [employer] 01/09/2022 15:57:51 COVID-19 COVID-19 COVID-19 is a [...] to fight infection (immunocompromised). Live in a snf or long-term care facility. Have a long-term [...] managed at home with rest, fluids, and gvyt-vbs-amfcygz medicines. Treatment for a serious infection usually [...] are safe for you. General instructions Take noby-xjk-suayesy and prescription medicines only as told by [...] water are not available, usean alcohol-based hand product steward. ?Avoid touching your mouth, face, eyes, or [...] water are not available, use alcohol-based hand product steward. Stay away from other members of your [...] have a weak immunity, live in a snf, or have chronic disease. There is no [...] 10/06/2019 Document Revised: 01/26/2020 Document Reviewed: 10/06/2019 [employer] Patient Education 2020 [employer] Follow Up Care 01/09/2022 13:51:01 With:BENTLEY LUCERO Address: [address] [place] [address] Business (1) When:01/12/2022 15:45:42 Comments:You should self quarantine for 5 days. Return to the emergency room if your symptoms get worse, youdevelop chest pain, shortness of breath or any new symptoms. [facility]04-28-2022 Evaluation + Plan noteExtracted from: Title:ED Note Author:Paul Moss, Devendra Ramirez te:01/09/22 1. COVID-19 virus infection (U07.1: COVID-19) Orders: ibuprofen, 600 mg = 1 tab(s), Tab, Oral, Once, Stop date 01/09/22 14:06:00 EDT, STAT, Start date 01/09/22 14:06:00 EDT, 01/09/22 14:06:00 EDT Group A Strep by PCR Influenza A&B Ag Rapid COVID Antigen ([facility]) Rapid Strep w/rfx [facility]01-11-2022 NoteInfectious Disease COVID-19 COVID-19 is a [...] fight infection (immunocompromised). ? Live in a snf or long-term care facility. ? Have a [...] managed at home with rest, fluids, and xoxd-jul-iierdvv medicines. Treatment for a serious infection usually [...] ? Rest at h (more content not included)...[facility] HospitalEvaluation noteNo InformationNortShriners Hospitals for [facility] [employer] Other Evaluation noteNo assessment information available [facility] Work Phone: History general Narrative - Reported* Type Description Date Surgical History appendectomy [facility] [employer] Other Hospital course Narrative No data available for this section [facility] No data available for this section [facility] No data available for this section [facility] Summary Purpose Family History No Family [...] section and content) DATE CREATED AUTHOR 03/22/2018 [facility] DATE CREATED AUTHOR AUTHOR'S ORGANIZ ATION 09/07/2022 [facility] DATE CREATED AUTHOR AUTHOR'S ORGANIZ ATION 01/28/2023 [facility] DATE CREATED AUTHOR AUTHOR'S ORGANIZ ATION 05/27/[address] [facility] DATE CREATED AUTHOR AUTHOR'S ORGANIZ ATION 06/03/2023 [facility] DATE CREATED AUTHOR AUTHOR'S ORGANIZ ATION 10/07/2023 [facility] DATE CREATED AUTHOR AUTHOR'S ORGANIZ ATION 10/07/2023 [facility] dical Specialists EPIC Care Team (unrecognized sect ion and content) Team Status: Inactive Member Role Status Dates Bentley Tristansic , BANQUET HOUSEPERSON-C Primary Care Provider, Attending Provider Active Team Status: Active Member Role Status Dates Bentley Tristansic , BANQUET HOUSEPERSON-C Primary Care Provider Active Team Status: Inactive Member Role Status Dates Bentley Tristansic , BANQUET HOUSEPERSON-C Attending Provider Active Team Status: Active Member Role Status Dates Services [facility] Primary Care Provider Ac tive Team Status: Inactive Member Role Status Dates Bentley Lucero , BANQUET HOUSEPERSON-C Attending Provider Active Services [facility] Care Provider Ac tive REASON FOR VISIT (unrecogniz ed section and [...] BE BASED ON THE PRIMARY CLINICAL RECORDS. [employer] [facility]. provides no warranty or guarantee of the accuracy or completeness of information in this document.
--- NOTE | 2023-10-19 12:23 | SUR.PREOP ---
10/15/23 With assitance from pt equipment scheduled date, time, and made pt aware of procedure.
--- NOTE | 2023-10-19 12:26 | FL_ITS ---
[address] [address] Patient Name: LEENA TALBERT MRN: [id number] date: 1990 Sex: F Assigned Patient Location: LAB Current Patient Location: LAB Accession/Order Number: [id number] Exam Date: 10/19/2023 12:45 Report Date: 10/19/2023 13:54 At the request of: ADRIANNA ANDINO Procedure: FL hysterosalpingography EXAMINATION: FL hysterosalpingography, FL Hysterosal cath placement HISTORY: fallopian tube disorder N83.9 COMPARISON: No relevant comparison available. TECHNIQUE: Informed consent was obtained. A sterile vaginal speculum was introduced and, following cleansing of the cervix, a balloon-tipped catheter was inserted into the endometrial cavity. The procedure was then completed in the usual manner with water-soluble contrast. Standard level fluoroscopic mode of operation utilized. A shift mgr was used before and after the procedure. The patient did not want an magneto electrician present during the actual procedure FINDINGS: FALLOPIAN TUBES: The right fallopian tube is mildly dilated and irregular with occlusion along the midportion. The left fallopian tube appears normal ENDOMETRIAL CAVITY: No scarring, filling defects, or dilatation. OTHER: Negative. FL/FL hysterosalpingography IMPRESSION: Occlusion of the right fallopian tube Patent left fallopian tube Electronically authenticated by: JULISSA WHITFIELD Date: 10/19/2023 13:54
--- NOTE | 2023-10-19 12:27 | FL_ITS ---
[address] [address] Patient Name: LEENA TALBERT MRN: [id number] date: 1990 Sex: F Assigned Patient Location: LAB Current Patient Location: LAB Accession/Order Number: [id number] Exam Date: 10/19/2023 12:45 Report Date: 10/19/2023 13:54 At the request of: ADRIANNA ANDINO Procedure: FL Hysterosal cath placement EXAMINATION: FL hysterosalpingography, FL Hysterosal cath placement HISTORY: fallopian tube disorder N83.9 COMPARISON: No relevant comparison available. TECHNIQUE: Informed consent was obtained. A sterile vaginal speculum was introduced and, following cleansing of the cervix, a balloon-tipped catheter was inserted into the endometrial cavity. The procedure was then completed in the usual manner with water-soluble contrast. Standard level fluoroscopic mode of operation utilized. A pensions retirement plan specialist was used before and after the procedure. The patient did not want an jaw skinner present during the actual procedure FINDINGS: FALLOPIAN TUBES: The right fallopian tube is mildly dilated and irregular with occlusion along the midportion. The left fallopian tube appears normal ENDOMETRIAL CAVITY: No scarring, filling defects, or dilatation. OTHER: Negative. FL/FL Hysterosal cath placement IMPRESSION: Occlusion of the right fallopian tube Patent left fallopian tube Electronically authenticated by: JULISSA WHITFIELD Date: 10/19/2023 13:54
[2023-10-19 13:04] LABS: HCG Quantitative <1 mIU/mL
--- NOTE | 2023-10-19 14:01 | PC.NURSE ---
1335 Pt denies any problems after procedure.
== END 2023-10-19 13:40 | disposition home or self-care (01) ==
LOC: LAB 12:10
PROVIDERS: Radiology Diagnostic Radiology; Visit Provider Obstetrics & Gynecology
DX: N83.9 Noninflammatory disorder of ovary, fallopian tube and broad ligament, unspecified (principal)
CPT/HCPCS: 36415; 58340; 74740; 84702; Q9966

== ENCOUNTER 2023-10-21 09:15 | Emergency (ER) | payer MEDICARE, MEDICAID, SELFPAY ==
[2023-10-21] VITALS (10 sets, daily range): BP systolic 120–137; BP diastolic 74–99; PULSE 68–89; RESP 12–20; TEMP 36.6; O2SAT 96–99; BMI 33.3
--- NOTE | 2023-10-21 09:35 | ECG_ITS ---
The [facility] Test Date: 2023-10-21 Pat Name: LEENA TALBERT Department: Room: - Gender: Female It Teacher: : 1990 Requested By: Order Number: [id number] Reading MD: JARED NASH Measurements Intervals [place] Rate: 72 P: 21 MT: 138 QRS: 32 QRSD: 82 T: 26 QT: 372 QTc: 397 Interpretive Statements 1100 Sinus rhythm 9110 normal ECG No previous ECG available for comparison Electronically Signed On 10-22-2023 6:50:12 EST by JARED NASH
--- NOTE | 2023-10-21 09:35 | XR_ITS ---
[address] [address] Patient Name: LEENA TALBERT MRN: [id number] date: 1990 Sex: F Assigned Patient Location: ER Current Patient Location: ER Accession/Order Number: [id number] Exam Date: 10/21/2023 09:54 Report Date: 10/21/2023 10:05 At the request of: LORETTA PINZON Procedure: XR chest 1V EXAMINATION: XR chest 1V HISTORY: chest pain COMPARISON: 06/22/2023 TECHNIQUE: FINDINGS: LUNGS: No significant pulmonary parenchymal abnormalities. Low lung volumes VASCULATURE: No increased pulmonary vasculature. PLEURA: No pneumothorax, effusion, or pleural thickening. CARDIAC: No cardiomegaly or cardiac silhouette abnormality. MEDIASTINUM: No visible mass or adenopathy. BONES: No fracture or visible bone lesion. OTHER: Negative. XR/XR chest 1V IMPRESSION: No acute cardiopulmonary process Electronically authenticated by: JULISSA WHITFIELD Date: 10/21/2023 10:05
--- NOTE | 2023-10-21 09:52 | CT_ITS ---
The [address] [address] Patient Name: LEENA TALBERT MRN: [id number] date: 1990 Sex: F Assigned Patient Location: ER Current Patient Location: ER Accession/Order Number: [id number] Exam Date: 10/21/2023 10:19 Report Date: 10/21/2023 10:43 At the request of: LORETTA PINZON Procedure: CT cervical spine wo con EXAM: CT cervical spine wo con CLINICAL INDICATION: neck pain, right UE paresthesia/radiculopathy COMPARISON: None. TECHNIQUE: CT scanning of the cervical spine was performed in the axial plane. Coronal and sagittal reconstructed images were performed and viewed. CT/CT cervical spine wo con IMPRESSION: No acute fracture. The spine is in anatomic alignment. Minimal disc bulge and uncovertebral/facet arthropathy at C4-C5 contributing to mild bilateral neural foraminal stenosis at this level. Patent spinal canal throughout. The prevertebral soft tissues are unremarkable. Additional soft tissues of the neck and upper thorax are unremarkable. Electronically authenticated by: SALLIE ALCANTAR Date: 10/21/2023 10:43
--- NOTE | 2023-10-21 10:03 | ED.GENADUL1 ---
HPI - General Adult General Chief complaint: Chest Pain Stated complaint: DIZZINESS/UPPER EXTREMITY PAIN Time Seen by Provider: 10/21/23 09:19 Source: patient Mode of arrival: walk-in Limitations: no limitations History of Present Illness HPI narrative: The patient complains of dizziness and chest pain that began this morning. Exacerbated by change in position and activity. 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 She also complains of neck pain with tingling sensation down the right arm. She saw Dr Mendez for that same issue about a month ago and had negative xrays of the CSpine. At that time she felt better with toradol and robaxin. No recent illness or injury to account for the symptoms. Related Data Home Medications Medication Instructions Recorded Confirmed cholecalciferol (vitamin D3) 25 4,000 unit PO DAILY 05/13/23 10/19/23 mcg (1,000 unit) capsule ferrous sulfate 325 mg (65 mg 36 mg PO DAILY 05/13/23 10/19/23 iron) tablet ibuprofen 800 mg tablet 800 mg PO TID PRN pain 05/13/23 10/19/23 omega-3 fatty acids 1,000 mg 1,000 mg PO DAILY 05/13/23 10/19/23 capsule omega-3 fatty acids 500 mg capsule 1,500 mg PO DAILY 05/13/23 10/19/23 omeprazole 40 mg capsule,delayed 40 mg PO DAILY 05/13/23 10/19/23 release letrozole 2.5 mg tablet (Femara) 2.5 mg PO DAILY 10/19/23 10/19/23 Previous Rx's Medication Instructions Recorded meclizine 25 mg tablet 25 mg PO TID PRN dizziness #30 tabs 10/21/23 pantoprazole 40 mg tablet,delayed 40 mg PO DAILY 4 weeks #28 tabs 10/21/23 release (Protonix) prednisone 20 mg tablet 40 mg (2 x 20 mg) PO DAILY 5 days 10/21/23 #10 tabs Allergies Allergy/AdvReac Type Severity Reaction Status Date / Time Sulfa (Sulfonamide Allergy Rash Verified 10/19/23 12:51 Antibiotics) [facility] Medical History (Updated 10/21/23 @ 11:16 by Brodie Lujan) Infertility Low back pain ?M54.50 - Low back pain, unspecified (ICD-10) Heartburn ?R12 - Heartburn (ICD-10) Asthma ?J45.909 - Unspecified asthma, uncomplicated (ICD-10) Surgical History (Updated 10/15/23 @ 13:25 by Silvia Mendez) Pain management ?R52 - Pain, unspecified (ICD-10) History of cochlear implant ?Z96.21 - Cochlear implant status (ICD-10) H/O removal of cyst ?Z98.890 - Other specified postprocedural states (ICD-10) History of appendectomy ?Z90.49 - Acquired absence of other specified parts of digestive tract (ICD-10) Exam Constitutional Vital Signs, click to edit/add: Last Vital Signs Temp 98 F 10/21/23 09:25 Pulse 70 10/21/23 10:19 Resp 20 10/21/23 10:10 BP 120/74 10/21/23 10:19 Pulse Ox 98 10/21/23 10:10 O2 Del Method Room Air 10/21/23 10:02 Course Vital Signs Vital signs: Vital Signs Temperature 98 F 10/21/23 09:25 Pulse Rate 68 10/21/23 09:25 Respiratory Rate 20 10/21/23 09:25 Blood Pressure 137/99 H 10/21/23 09:25 Pulse Oximetry 99 10/21/23 09:25 Temperature 98 F 10/21/23 09:25 Pulse Rate 70 10/21/23 10:19 Respiratory Rate 20 10/21/23 10:10 Blood Pressure 120/74 10/21/23 10:19 Pulse Oximetry 98 10/21/23 10:10 Oxygen Delivery Method Room Air 10/21/23 10:02 Medical Decision Making [facility] Narrative Medical decision making narrative: 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 Blood drawn and sent for evaluation. Portable chest x-ray obtained. She was also sent for CT scanning of the cervical spine due to her continued neck pain and radicular symptoms. Orthostatics were negative. CBC, BMP, Troponin & d dimer normal/negative. CT = min disc bulge and arthropathy C4-C5, per radiologist She was ordered to receive a liter of normal saline IV fluid, IV Toradol and IV Solu-Medrol for symptoms. Results explained to the patient through the use fo the translator/interpreter on the departmental IPad. She was discharged home with prescriptions for . Medical Records Medical records reviewed: Yes I reviewed the patient's medical records Medical records narrative: I reviewed the patient's previous visit with Dr. Mondragon for which she had cervical spine x-rays which were unremarkable and was discharged home after improvement in the ED from Toradol and Norflex. Lab Data Lab results reviewed: Yes I reviewed the patient's lab results Labs: Lab Results 10/21/23 Range/Units 09:48 WBC 6.0 (4.0-11.0) 10^3/uL RBC 4.66 (4.20-5.40) 10^6/uL Hgb 12.6 (12.0-16.0) g/dL Hct 39.2 (36.0-48.0) % MCV 84.1 (81.0-99.0) fL MCH 27.0 (26.7-34.0) pg MCHC 32.1 (29.9-35.2) g/dL RDW 13.0 (11.0-15.0) % Plt Count 283 (150-450) 10^3/uL MPV 10.0 (9.5-13.5) fL Neut % (Auto) 51.0 (43.0-75.0) % Lymph % (Auto) 39.9 (20.5-60.0) % [place] % (Auto) 6.8 (1.7-12.0) % Eos % (Auto) 1.3 (0.9-7.0) % Baso % (Auto) 0.8 (0.2-2.0) % Neut # (Auto) 3.1 (1.4-6.5) 10^3/uL Lymph # (Auto) 2.4 (1.2-3.8) 10^3/uL [place] # (Auto) 0.4 (0.3-0.8) 10^3/uL Eos # (Auto) 0.1 (0.0-0.7) 10^3/uL Baso # (Auto) 0.1 (0.0-0.1) 10^3/uL Abs Immat Gran (auto) 0.01 (0.00-0.03) 10^3/uL Imm/Tot Granulo (auto) 0.2 (0.0-0.5) % D-Dimer 0.26 (<=0.59) mg/L FEU Sodium 142 (136-145) mmol/L Potassium 4.1 (3.5-5.1) mmol/L Chloride 106 (98-107) mmol/L Carbon Dioxide 25.6 (21.0-32.0) mmol/L Anion Gap 14.5 BUN 17.0 (7.0-18.0) mg/dL Creatinine 0.90 (0.55-1.02) mg/dL Est GFR ( Amer) >60 (>=60) Est GFR (Non-Af Amer) >60 (>=60) BUN/Creatinine Ratio 18.9 Glucose 102 (74-106) mg/dL Calcium 8.7 (8.5-10.1) mg/dL Troponin I High Sens <4.0 L (4.0-51.3) pg/mL Imaging Data Chest x-ray: Radiologist's impression: ITS Impressions Chest X-Ray 10/21/23 09:35 IMPRESSION: No acute cardiopulmonary process Electronically authenticated by: JULISSA WHITFIELD Date: 10/21/2023 10:[address] 10/21/23 09:52 IMPRESSION: No acute fracture. The spine is in anatomic alignment. Minimal disc bulge and uncovertebral/facet arthropathy at C4-C5 contributing to mild bilateral neural foraminal stenosis at this level. Patent spinal canal throughout. The prevertebral soft tissues are unremarkable. Additional soft tissues of the neck and upper thorax are unremarkable. Electronically authenticated by: SALLIE ALCANTAR Date: 10/21/2023 10:43 CT cervical spine: Radiologist's impression: ITS Impressions Chest X-Ray 10/21/23 09:35 IMPRESSION: No acute cardiopulmonary process Electronically authenticated by: JULISSA WHITFIELD Date: 10/21/2023 10:[address] 10/21/23 09:52 IMPRESSION: No acute fracture. The spine is in anatomic alignment. Minimal disc bulge and uncovertebral/facet arthropathy at C4-C5 contributing to mild bilateral neural foraminal stenosis at this level. Patent spinal canal throughout. The prevertebral soft tissues are unremarkable. Additional soft tissues of the neck and upper thorax are unremarkable. Electronically authenticated by: SALLIE ALCANTAR Date: 10/21/2023 10:43 ECG Data Attestation: I personally reviewed and interpreted this ECG as follows: Interpretation: EKG interpretation: Emergency Department physician interpretation. Normal sinus rhythm at 72bpm. Normal axis, normal intervals and no ST segment elevation or depression. Normal EKG Discharge Plan Discharge Chief Complaint: Chest Pain Clinical Impression: GERD without esophagitis, Cervical disc disorder at C4-C5 level with radiculopathy, Chest pain Patient Disposition: Home, Self-Care Time of Disposition Decision: 11:16 Prescriptions / Home Meds: New pantoprazole [Protonix] 40 mg tablet,delayed release (DR/EC) 40 mg PO DAILY 28 Days Qty: 28 0RF prednisone 20 mg tablet 40 mg PO DAILY 5 Days Qty: 10 0RF meclizine 25 mg tablet 25 mg PO TID PRN (Reason: dizziness) Qty: 30 0RF No Action omega-3 fatty acids 500 mg capsule 1,500 mg PO DAILY ibuprofen 800 mg tablet 800 mg PO TID PRN (Reason: pain) ferrous sulfate 325 mg (65 mg iron) tablet 36 mg PO DAILY omega-3 fatty acids 1,000 mg capsule 1,000 mg PO DAILY omeprazole 40 mg capsule,delayed release(DR/EC) 40 mg PO DAILY Hold Instructions: patient ran out of it cholecalciferol (vitamin D3) 25 mcg (1,000 unit) capsule 4,000 unit PO DAILY letrozole [Femara] 2.5 mg tablet 2.5 mg PO DAILY Rx Instructions: begin between days 2 and 5 of mentrual cycle Instructions: Cervical Disc Herniation (ED), Cervical Radiculopathy (ED), Dizziness (ED), Noncardiac Chest Pain (ED), Neck Pain (ED) Stand Alone Forms: Portal Instructions Referrals: Physician,Non-Staff, MD [Primary Care Provider] - 1 week
[2023-10-21 10:07] LABS: Basophils Absolute Auto 0.1 10^3/uL (0.0-0.1); Basophils Percent Auto 0.8 % (0.2-2.0); Eosinophils Absolute Auto 0.1 10^3/uL (0.0-0.7); Eosinophils Percent Auto 1.3 % (0.9-7.0); Hematocrit 39.2 % (36.0-48.0); Hemoglobin 12.6 g/dL (12.0-16.0); Immature Granulocytes Abs Auto 0.01 10^3/uL (0.00-0.03); Immature Granulocytes Pct Auto 0.2 % (0.0-0.5); Lymphocytes Absolute Auto 2.4 10^3/uL (1.2-3.8); Lymphocytes Percent Auto 39.9 % (20.5-60.0); Mean Corpuscular HGB Conc 32.1 g/dL (29.9-35.2); Mean Corpuscular Volume 84.1 fL (81.0-99.0); Monocytes Absolute Auto 0.4 10^3/uL (0.3-0.8); Monocytes Percent Auto 6.8 % (1.7-12.0); Neutrophils Absolute Auto 3.1 10^3/uL (1.4-6.5); Platelet Count 283 10^3/uL (150-450); Red Blood Count 4.66 10^6/uL (4.20-5.40)
[2023-10-21] MEDS: 0.9 % SODIUM CHLORIDE 1,000 ML 1000 ML IV (10:12)
[2023-10-21] MEDS: KETOROLAC TROMETHAMINE 30 MG/ML VIAL IVP (10:13)
[2023-10-21] MEDS: METHYLPREDNISOLONE SOD SUCC PF 125 MG/2 ML VIAL IVP (10:13)
[2023-10-21 10:37] LABS: Anion Gap 14.5; BUN Creatinine Ratio 18.9; Calcium 8.7 mg/dL (8.5-10.1); Carbon Dioxide 25.6 mmol/L (21.0-32.0); Chloride 106 mmol/L (98-107); Estimated GFR (African America >60 (>=60); Estimated GFR (Non-African Ame >60 (>=60); Glucose 102 mg/dL (74-106); Potassium 4.1 mmol/L (3.5-5.1); Sodium 142 mmol/L (136-145); Troponin I High Sensitivity <4.0 pg/mL (4.0-51.3)
[2023-10-21 10:53] LABS: D Dimer 0.26 mg/L FEU (<=0.59)
[2023-10-21] MEDS: MECLIZINE HCL 12.5 MG TABLET 25 MG PO (11:29)
== END 2023-10-21 11:38 | disposition home or self-care (01) ==
PROVIDERS: Emergency Provider Emergency Medicine
DX: R42 Dizziness and giddiness (principal); K21.9 Gastro-esophageal reflux disease without esophagitis; M50.121 Cervical disc disorder at C4-C5 level with radiculopathy; R07.9 Chest pain, unspecified; H91.90 Unspecified hearing loss, unspecified ear; Z96.21 Cochlear implant status; Z79.899 Other long term (current) drug therapy; M54.50 Low back pain, unspecified; R12 Heartburn; J45.909 Unspecified asthma, uncomplicated; Z90.49 Acquired absence of other specified parts of digestive tract
CPT/HCPCS: 36415; 71045; 72125; 80048; 84484; 85025; 85378; 93005; 96361; 96374; 96375; 99285; J1885; J2930

== ENCOUNTER 2023-10-25 12:29 | Emergency (ER) | payer MEDICARE, MEDICAID, SELFPAY ==
[2023-10-25 12:34] VITALS: BP 113/85; PULSE 72; RESP 18; O2SAT 96; BMI 33.3
--- OUTSIDE RECORDS SUMMARY | 2023-10-25 12:39 | XMS_ITS | CCD ---
Author Name Unknown Address [address] [place] [address] Organization [facility] Care Team Providers Care Ecological Technical Officer Name Role Phone DION JACINTO Unavailable Unavailable OPHELIA, DOIN M Unavailable Unavailable OPHELIA, DION Guadarrama Unavailable Unavailable OPHELIA, DION Guadarrama Unavailable Unavailable BENTLEY LUCERO Primary Care Physician [phone] Rangel Stanton Unavailable Connor Castellanos Attending Unavailable Devendra Miller Attending Unavailable Kristopher Clemons Attending Unavailable Devendra Miller Attending Unavailable Kristopher Clemons Attending Unavailable Connor Castellanos Attending Unavailable BENTLEY LUCERO Referring Unavailable BENTLEY LUCERO Attending Unavailable BENTLEY LUCERO Admitting Unavailable Connor Castellanos Attending Unavailable Nic DIRECTOR OF ONLINE EDUCATION-C Bentley Hu Primary Care Provider Nic DIRECTOR OF ONLINE EDUCATION-Rosy Hu Attending Provider LAKSHMIPATHY ., NARENDRANATH Admitting [...] Unavailani e ALEXANDRO HERR Consulting Unavailable Spasic, DIRECTOR OF ONLINE EDUCATION-C Bentley Hu Attending Provider [facility] Primary Care [facility] ider Spasic, Bentley E Primary Care Unavailable Spasic, Bentley E Attending Unavailable Spasic, Bentley E Admitting Unavailable Spasic, Bentley E Attending Unavailable Spasic, Bentley E Admitting Unavailable Spasic, Bentley E Primary Care Unavailable Spasic, Bentley E Attending Unavailable Spasic, Bentley E Admitting Unavailable Spasic, Bentley E Attending Unavailable Spasic, Bentley E Admitting Unavailable [facility] Primary Care U navailable Day FERRIS, Anddavid Lester Attending Unavailable Giedraitis , Andrius Vcarolyn Attending Unavailable Giemelynraitis , Andrius Vytnelli Attending Unavailable Gieditis , Andrius Vytnelli Attending Unavailable ADRIANNA ANDINO Attending Unavailable Allergies Allergy Classification Reported Allergen(s) Allergy Type Date of Onset Reaction(s) Facility (6 sources) Sulfonamides (Antibiotic); Translations: [sulfa drugs] Drug allergy Cutaneous eruption (morphologic abnormality) [facility] (1 source) Sulfacetamide / Sulfur Drug Allergy Unknown [facility] Other (5 sources) Sulfonamides (Antibiotic); Translations: [Sulfa (Sulfonamide Antibiotics)] Allergy to substance 05-15-20 19 [facility] (1 source) Sulfonamides (Antibiotic) Drug allergy (disorder) 04-11-20 17 [facility] Repository Medications Current Medications Medication Drug Class(es) [...] Daily, # 3 tab(s), Refills(s) 0, Pharmacy: [facility] 1986, 165, cm, 06/19/20 21:06:00 EDT, Height/Length Dosing, 90.5, kg, 06/19/20 21:06:00 EDT, Weight Dosing Start Date: 06/20/20 Status: Ordered cetirizine hydrochloride 10 mg oral tablet (5 sources) Histamine-1 Receptor Antagonist Start: 06-20-2020 take 1 tablet by mouth once daily cetirizine 10 mg Tab 10 mg = 1 tab(s), Oral, Daily, # 30 tab(s), Refills(s) 0, Pharmacy: [facility] 1986, 165, cm, 06/19/20 21:06:00 [...] pain, # 15 tab(s), Refills(s) 0, Pharmacy: [facility] 1985, 165, cm, 05/28/22 10:56:00 [...] BID, 16 gram, Refill(s) 0, each nostril, [facility] 1985, 165, cm, 06/19/20 21:06:00 EDT, Height/Length Dosing, 90.5, kg, 06/19/20 21:06:00 EDT, Weight Dosing Start Date: 06/20/20 Status: Ordered fluticasone propionate 0.05 mg/actuat metered dose nasal spray (3 sources) Corticosteroid Start: 06-20-2020 take 1 spray(s) nasal route twice daily Flonase 0.05 mg/inh nasal spray 1 spray(s), Nasal, BID, 16 gram, Refill(s) 0, each nostril, [facility] 1985, 165, cm, 06/19/20 21:06:00 [...] for 10 day(s), 20 tab(s), Refill(s) 0, [facility] 1985, 165, cm, 06/18/22 12:19:00 EDT, Height/Length Dosing, 86, kg, 06/18/22 12:19:00 EDT, Weight Dosing Start Date: 06/18/22 Stop Date: 06/28/22 Status: Ordered methylPREDNISolone 4 mg oral tablet (1 source) Corticosteroid Start: 05-28-20 End: 06-03-20 Medrol 4 mg Tab = 1 packet(s), Oral, As Directed, as directed on package labeling, X 6 day(s), # 21 tab(s), Refills(s) 0, Pharmacy: [facility] 1985, 165, cm, 05/28/22 10:56:00 [...] pain, # 20 tab(s), Refills(s) 0, Pharmacy: [facility] 1985, 165, cm, 05/28/22 10:56:00 EDT, Height/Length Dosing, 86, kg, 05/28/22 10:56:00 EDT, Weight Dosing Start Date: 05/28/22 Status: Ordered Bradford 3 (1 source) Bradford 3 Active Bradford 2-Xyx-Puw-Fish Oil (Fish Oil) 1,000 mg (120 mg-180 mg) Capsule (4 sources) Start: 03-12-20 take 1 capsule by mouth once daily Bradford 7-Ivj-Tvy-Fish Oil (Fish Oil) 1,000 mg (120 mg-180 mg) Capsule Active 1 CAP PO Daily March 12, 2022 12:00am Start: 03-12-2022 take 1 capsule by [facility] once daily Bradford 6-Jop-Zom-Fish Oil (Fish Oil) 1,000 mg (120 mg-180 [...] Nausea/Vomiting, # 12 tab(s), Refills(s) 0, Pharmacy: [facility] 1985, 165, cm, 03/05/21 17:57:00 EDT, Height/Length Dosing, 91, kg, 03/05/21 17:57:00 EDT, Weight Dosing Start Date: 03/05/21 Status: Ordered pantoprazole 40 mg delayed release oral tablet (3 sources) Proton Pump Inhibitor Start: 04-04-2021 take 1 tablet by mouth once daily Protonix 40 mg Tab-EC 40 mg = 1 tab(s), Oral, Daily, # 30 tab(s), Refills(s) 0, Pharmacy: [facility] 1985, 165, cm, 04/04/21 21:22:00 EDT, [...] Daily, # 30 tab(s), Refills(s) 0, Pharmacy: [facility] 1986, 165, cm, 04/04/21 21:22:00 [...] Daily, # 3 tab(s), Refills(s) 0, Pharmacy: [facility] 1986, 165, cm, 06/19/20 21:06:00 [...] monitoron 0 05-25-2023 [place] [address] Cardiac Event Monitor Signed Patient: Leena Interiano MR#: [id number] : 1990 Acct:[id number] Age/Sex: 33 / F ADM Date: 04/22/23 Loc: Room: Type: [facility] Attending Dr: Bentley TIMMONS Copies to: Darrin Jay MD, [facility] SHANELLE Galdamez Ordering Provider: SHANELLE Galdamez [...] 05/25/23 1521 Dictated By: Darrin Jay MD, [facility] 05/25/23 1047 Signed By: 05/26/23 1402 [facility] XR cervical spine LAT/FLX/EX Ton 04-22-2023 XR cervical spine LAT/FLX/EXT [facility] [place] [address] XRay Report Signed Patient: Leena Interiano MR#: [id number] : 1990 Acct:[id number] Age/Sex: 33 / F ADM Date: 04/22/23 Loc: Room: Type: [facility] Attending Dr: Bentley TIMMONS Copies to: [...] Gentry Acevedo M.D.04/22/2023 1:38 PM Dictation Location: [place] [address] Transcribed By: [facility] 04/22/23 1338 Dictated By: Gentry Acevedo DO 04/22/23 1337 Signed By: 04/22/23 1338 [facility] A1C with Estimated Average G edn 04-16-2023 Glucose [Mass/Vol] 111 mg/dL Normal [facility] Comment on above: Result Comment: PERF ORMED BY: [facility] [address] [place] [address] PATHOLOGIST JUKEBOX CHECKER PRICE ZUNIGA M.D. Performed By: #### T SH3 wRFLX, A1C WTH eA, CBC, CALLUM, CMP, FE and TIBC, B12, [id number] ####[facility]#### INSULIN ####[facility] , HbA1c (Bld) [Mass fraction] 5.5 % Normal 4.3-5.6 [facility] Comment on above: Result Comment: Incr eased risk for diabetes: 5.7 - 6.4 diabetes: >6.4 glycemic control for adults with diabetes: <7.0 Performed By: #### T SH3 wRFLX, A1C WTH eA, CBC, CALLUM, CMP, FE and TIBC, B12, [id number] ####[facility]#### INSULIN ####[facility] , Alanine aminotransferase [En zymatic activity/volume] in Serum or PlasmaOrdered By: Bentley Lucero on 04-16-2023 ALT [Catalytic activity/Vol] 16 U/L 7-52 [facility] Albumin [Mass/volume] in Ser um or Plasma by Bromocresol green (BCG) dye binding methoOrdered By: Bentley Lucero on 04-16-2023 Albumin BCG dye [Mass/Vol] 4.3 g/dL 3.5-5.7 [facility] Alkaline phosphatase [Enzyma tic activity/volume] in Serum or PlasmaOrdered By: Bentley Lucero on 04-16-2023 ALP [Catalytic activity/Vol] 52 U/L 34-104 [facility] Aspartate aminotransferase [ Enzymatic activity/volume] in Serum or PlasmaOrdered By: Bentley Lucero on 04-16-2023 AST [Catalytic activity/Vol] 16 U/L 13-39 [facility] Basophils Auto (Bld) [#/Vol] Ordered By: Bentley Lucero on 04-16-2023 Basophils (Bld) [#/Vol] 0.0 10*3/uL 0.0-0.2 [facility] Basophils/100 WBC Auto (Bld) Ordered By: Bentley Tristansic on 04-16-2023 Basophils/100 WBC (Bld) 0.8 % . F [facility] Bilirubin.total [Mass/volume ] in Serum or PlasmaOrdered By: Bentley Spasic on 04-16-2023 Bilirubin [Mass/Vol] 0.4 mg/dL 0.3-1.0 [facility] Calcium [Mass/volume] in Ser um or PlasmaOrdered By: Bentley Spasic on 04-16-2023 Calcium [Mass/Vol] 9.0 mg/dL 8.6-10.3 [facility] Carbon dioxide, total [Moles /volume] in Serum or PlasmaOrdered By: Bentley [employer] on 04-16-2023 CO2 [Moles/Vol] 24.8 mmol/L 21.0-31.0 [facility] Chloride [Moles/volume] in S hugo or PlasmaOrdered By: Bentley Spasic on 04-16-2023 Chloride [Moles/Vol] 109 mmol/L 98-107 [facility] Complete Blood Count Auto Di ffon 04-16-2023 Basophils (Bld) [#/Vol] 0.0 10*3/uL Normal 0.0-0.2 [facility] Comment on above: Result Comment: PERF ORMED BY: [place] [address] PATHOLOGIST JUKEBOX CHECKER PRICE ZUNIGA M.D. Performed By: #### T SH3 wRFLX, A1C WTH eA, CBC, CALLUM, CMP, FE and TIBC, B12, [id number] #### [place] [address] [place] #### INSULIN #### [facility] , Basophils/100 WBC (Bld) 0.8 % Normal . F [facility] Comment on above: Performed By: #### T SH3 wRFLX, A1C WTH eA, CBC, CALLUM, CMP, FE and TIBC, B12, [id number] #### [facility] [address] [place] [address] #### INSULIN #### [facility] , Eosinophils (Bld) [#/Vol] 0.1 10*3/uL Normal 0.0-0.45 [facility] Comment on above: Performed By: #### T SH3 wRFLX, A1C WTH eA, CBC, CALLUM, CMP, FE and TIBC, B12, [id number] #### [address] #### INSULIN #### [facility] , Eosinophils/100 WBC (Bld) 3.0 % Normal . [facility] Comment on above: Performed By: #### T SH3 wRFLX, A1C WTH eA, CBC, CALLUM, CMP, FE and TIBC, B12, [id number] #### [facility] [address] [place] [address] #### INSULIN #### [facility] , Erythrocyte distribution width (RBC) [Ratio] 13.3 % Normal 11.9-15.3 [facility] Comment on above: Performed By: #### T SH3 wRFLX, A1C WTH eA, CBC, CALLUM, CMP, FE and TIBC, B12, [id number] #### [facility] [address] [place] [address] [place] #### INSULIN #### [facility] , Hematocrit (Bld) [Volume fraction] 36.5 % Normal 34.0-46.4 [facility] Comment on above: Performed By: #### T SH3 wRFLX, A1C WTH eA, CBC, CALLUM, CMP, FE and TIBC, B12, [id number] #### [facility] [address] [place] [address] #### INSULIN #### [facility] , Hemoglobin (Bld) [Mass/Vol] 12.3 g/dL Normal 11.8-15.4 [facility] Comment on above: Performed By: #### T SH3 wRFLX, A1C WTH eA, CBC, CALLUM, CMP, FE and TIBC, B12, [id number] #### [facility] [address] [place] [address] #### INSULIN #### [facility] , Lymphocytes (Bld) [#/Vol] 2.2 10*3/uL Normal 1.00-4.8 [facility] Comment on above: Performed By: #### T SH3 wRFLX, A1C WTH eA, CBC, CALLUM, CMP, FE and TIBC, B12, [id number] #### [facility] [address] [place] [address] #### INSULIN #### [facility] , Lymphocytes/100 WBC (Bld) 43.7 % Normal . [facility] Comment on above: Performed By: #### T SH3 wRFLX, A1C WTH eA, CBC, CALLUM, CMP, FE and TIBC, B12, [id number] #### [facility] [address] [place] [address] #### INSULIN #### [facility] , MCH (RBC) [Entitic mass] 27.0 pg Normal 24.7-34.3 [facility] Comment on above: Performed By: #### T SH3 wRFLX, A1C WTH eA, CBC, CALLUM, CMP, FE and TIBC, B12, [id number] #### [facility] [address] [place] [address] [place] #### INSULIN #### [facility] , MCV (RBC) [Entitic vol] 79.9 fL Low 80-100 F [facility] Comment on above: Performed By: #### T SH3 wRFLX, A1C WTH eA, CBC, CALLUM, CMP, FE and TIBC, B12, [id number] #### [facility] [address] [place] [address] [place] #### INSULIN #### [facility] , Mean Corpuscular HGB Conc 33.8 g/dL Normal 32.0-35.0 [facility] Comment on above: Performed By: #### T SH3 wRFLX, A1C WTH eA, CBC, CALLUM, CMP, FE and TIBC, B12, [id number] #### [facility] [address] [place] [address] #### INSULIN #### [facility] , Monocytes (Bld) [#/Vol] 0.3 10*3/uL Normal 0.0-0.8 [facility] Comment on above: Performed By: #### T SH3 wRFLX, A1C WTH eA, CBC, CALLUM, CMP, FE and TIBC, B12, [id number] #### [facility] [address] [place] [address] #### INSULIN #### [facility] , Monocytes/100 WBC (Bld) 5.2 % Normal . [facility] Comment on above: Performed By: #### T SH3 wRFLX, A1C WTH eA, CBC, CALLUM, CMP, FE and TIBC, B12, [id number] #### [facility] [address] [place] [address] #### INSULIN #### [facility] , Neutrophils (Bld) [#/Vol] 2.3 10*3/uL Normal 1.8-7.7 [facility] Comment on above: Performed By: #### T SH3 wRFLX, A1C WTH eA, CBC, CALLUM, CMP, FE and TIBC, B12, [id number] #### [facility] [address] [place] [address] [place] #### INSULIN #### [facility] , Neutrophils/100 WBC (Bld) 47.3 % Normal . [facility] Comment on above: Performed By: #### T SH3 wRFLX, A1C WTH eA, CBC, CALLUM, CMP, FE and TIBC, B12, [id number] #### [facility] [address] [place] [address] #### INSULIN #### [facility] , NRBC% 0.2 /100{WBC} Normal 0-0.5 [facility] Comment on above: Performed By: #### T SH3 wRFLX, A1C WTH eA, CBC, CALLUM, CMP, FE and TIBC, B12, [id number] #### [facility] [address] [place] [address] [place] #### INSULIN #### [facility] , Platelet mean volume (Bld) [Entitic vol] 9.2 fL Normal 6.3-10.7 [facility] Comment on above: Performed By: #### T SH3 wRFLX, A1C WTH eA, CBC, CALLUM, CMP, FE and TIBC, B12, [id number] #### [address] #### INSULIN #### [facility] , Platelets (Bld) [#/Vol] 260 10*3/uL Normal 150-450 [facility] Comment on above: Performed By: #### T SH3 wRFLX, A1C WTH eA, CBC, CALLUM, CMP, FE and TIBC, B12, [id number] #### [place] [address] [place] #### INSULIN #### [facility] , RBC (Bld) [#/Vol] 4.57 10*6/uL Normal 3.60-5.00 [facility] Comment on above: Performed By: #### T SH3 wRFLX, A1C WTH eA, CBC, CALLUM, CMP, FE and TIBC, B12, [id number] #### [facility] [address] [place] [address] [place] #### INSULIN #### [facility] , WBC (Bld) [#/Vol] 4.9 10*3/uL Normal 3.8-11.6 [facility] Comment on above: Performed By: #### T SH3 wRFLX, A1C WTH eA, CBC, CALLUM, CMP, FE and TIBC, B12, [id number] #### [facility] [address] [place] [address] [place] #### INSULIN #### [facility] , Comprehensive Metabolic Pane adam 04-16-2023 Albumin [Mass/Vol] 4.3 g/dL Normal 3.5-5.7 [facility] Comment on above: Performed By: #### T SH3 wRFLX, A1C WTH eA, CBC, CALLUM, CMP, FE and TIBC, B12, [id number] #### [facility] [address] [place] [address] [place] #### INSULIN #### [facility] , Albumin/Globulin [Mass ratio] 1.7 {ratio} Normal [facility] Comment on above: Performed By: #### T SH3 wRFLX, A1C WTH eA, CBC, CALLUM, CMP, FE and TIBC, B12, [id number] #### [facility] [address] [place] [address] [place] #### INSULIN #### [facility] , ALP [Catalytic activity/Vol] 52 U/L Normal 34-104 [facility] Comment on above: Performed By: #### T SH3 wRFLX, A1C WTH eA, CBC, CALLUM, CMP, FE and TIBC, B12, [id number] #### [facility] [address] [place] [address] [place] #### INSULIN #### [facility] , ALT [Catalytic activity/Vol] 16 U/L Normal 7-52 [facility] Comment on above: Performed By: #### T SH3 wRFLX, A1C WTH eA, CBC, CALLUM, CMP, FE and TIBC, B12, [id number] #### [facility] [address] [place] [address] [place] #### INSULIN #### [facility] , Anion gap [Moles/Vol] 10.1 mmol/L Normal 6.0-15.0 [facility] Comment on above: Performed By: #### T SH3 wRFLX, A1C WTH eA, CBC, CALLUM, CMP, FE and TIBC, B12, [id number] #### [facility] [address] [place] [address] [place] #### INSULIN #### [facility] , AST [Catalytic activity/Vol] 16 U/L Normal 13-39 [facility] Comment on above: Performed By: #### T SH3 wRFLX, A1C WTH eA, CBC, CALLUM, CMP, FE and TIBC, B12, [id number] #### [facility] [address] [place] [address] #### INSULIN #### [facility] , Bilirubin [Mass/Vol] 0.4 mg/dL Normal 0.3-1.0 [facility] Comment on above: Performed By: #### T SH3 wRFLX, A1C WTH eA, CBC, CALLUM, CMP, FE and TIBC, B12, [id number] #### [facility] [address] [place] [address] #### INSULIN #### [facility] , Calcium [Mass/Vol] 9.0 mg/dL Normal 8.6-10.3 [facility] Comment on above: Performed By: #### T SH3 wRFLX, A1C WTH eA, CBC, CALLUM, CMP, FE and TIBC, B12, [id number] #### [facility] [address] [place] [address] [place] #### INSULIN #### [facility] , Chloride [Moles/Vol] 109 mmol/L High 98-107 [facility] Comment on above: Performed By: #### T SH3 wRFLX, A1C WTH eA, CBC, CALLUM, CMP, FE and TIBC, B12, [id number] #### [facility] [address] [place] [address] [place] #### INSULIN #### [facility] , CO2 [Moles/Vol] 24.8 mmol/L Normal 21.0-31.0 [facility] Comment on above: Performed By: #### T SH3 wRFLX, A1C WTH eA, CBC, CALLUM, CMP, FE and TIBC, B12, [id number] #### [facility] [address] [place] [address] [place] #### INSULIN #### [facility] , Creatinine [Mass/Vol] 0.84 mg/dL Normal 0.60-1.20 [facility] Comment on above: Performed By: #### T SH3 wRFLX, A1C WTH eA, CBC, CALLUM, CMP, FE and TIBC, B12, [id number] #### [facility] [address] [place] [address] #### INSULIN #### [facility] , GFR/1.73 sq M.predicted MDRD (S/P/Bld) [Vol rate/Area] mL/min/{1.73_m2} [facility] Comment on above: Performed By: #### T SH3 wRFLX, A1C WTH eA, CBC, CALLUM, CMP, FE and TIBC, B12, [id number] #### [facility] [address] [place] [address] [place] #### INSULIN #### [facility] , Globulin (S) [Mass/Vol] 2.6 g/dL Normal [facility] Comment on above: Performed By: #### T SH3 wRFLX, A1C WTH eA, CBC, CALLUM, CMP, FE and TIBC, B12, [id number] #### [facility] [address] [place] [address] [place] #### INSULIN #### [facility] , Glucose [Mass/Vol] 116 mg/dL High 70-100 [facility] Comment on above: Result Comment: [place] Glucose Reference Range is dependent on time and content of last meal. Glucose of more than 200 mg/dL in a nonstressed, ambulatory subject supports the diagnosis of Diabetes Mellitus. ADA recommended reference range Performed By: #### T SH3 wRFLX, A1C WTH eA, CBC, CALLUM, CMP, FE and TIBC, B12, [id number] #### [facility] [address] [place] [address] [place] #### INSULIN #### [facility] , Potassium [Moles/Vol] 3.9 mmol/L Normal 3.5-5.1 [facility] Comment on above: Performed By: #### T SH3 wRFLX, A1C WTH eA, CBC, CALLUM, CMP, FE and TIBC, B12, [id number] #### [facility] [address] [place] [address] [place] #### INSULIN #### [facility] , Protein [Mass/Vol] 6.9 g/dL Normal 6.4-8.9 [facility] Comment on above: Performed By: #### T SH3 wRFLX, A1C WTH eA, CBC, CALLUM, CMP, FE and TIBC, B12, [id number] #### [facility] [address] [place] [address] [place] #### INSULIN #### [facility] , Sodium [Moles/Vol] 140 mmol/L Normal 136-145 [facility] Comment on above: Performed By: #### T SH3 wRFLX, A1C WTH eA, CBC, CALLUM, CMP, FE and TIBC, B12, [id number] #### [facility] [address] [place] [address] [place] #### INSULIN #### [facility] , Urea nitrogen [Mass/Vol] 14 mg/dL Normal 7-25 [facility] Comment on above: Performed By: #### T SH3 wRFLX, A1C WTH eA, CBC, CALLUM, CMP, FE and TIBC, B12, [id number] #### [facility] [address] [place] [address] [place] #### INSULIN #### [facility] , Creatinine [Mass/volume] in Serum or PlasmaOrdered By: Bentley Lucero on 04-16-2023 Creatinine [Mass/Vol] 0.84 mg/dL 0.60-1.20 [facility] Eosinophils Auto (Bld) [#/Vo l]Ordered By: Bentley Lucero on 04-16-2023 Eosinophils (Bld) [#/Vol] 0.1 10*3/uL 0.0-0.45 [facility] Eosinophils/100 WBC Auto (Bl d)Ordered By: Bentley Lucero on 04-16-2023 Eosinophils/100 WBC (Bld) 3.0 % . [facility] Erythrocyte distribution wid th Auto (RBC) [Ratio]Ordered By: Bentley Lucero on 04-16-2023 Erythrocyte distribution width (RBC) [Ratio] 13.3 % 11.9-15.3 [facility] Ferritinon 04-16-2023 Ferritin [Mass/Vol] 12.7 ng/mL Normal 11.0-306.8 [facility] Comment on above: Performed By: #### T SH3 wRFLX, A1C WTH eA, CBC, CALLUM, CMP, FE and TIBC, B12, [id number] #### [facility] [address] #### INSULIN #### [facility] , Ferritin [Mass/volume] in Se rum or PlasmaOrdered By: Bentley Lucero on 04-16-2023 Ferritin [Mass/Vol] 12.7 ng/mL 11.0-306.8 [facility] Globulin Calc (S) [Mass/Vol] Ordered By: Bentley Lucero on 04-16-2023 Globulin (S) [Mass/Vol] 2.6 g/dL F [facility] Glucose [Mass/volume] in Ser um or PlasmaOrdered By: Bentley Lucero on 04-16-2023 Glucose [Mass/Vol] 116 mg/dL 70-100 [facility] Comment on above: ADA recommended refe [...] from glycated hemoglobin (Bld) [Mass/Vol] 111 mg/dL [facility] Hematocrit Auto (Bld) [Volum e fraction]Ordered By: Bentley Lucero on 04-16-2023 Hematocrit (Bld) [Volume fraction] 36.5 % 34.0-46.4 [facility] Hemoglobin A1c percentageOrd ered By: Bentley Lucero on 04-16-2023 HbA1c (Bld) [Mass fraction] 5.5 % 4.3-5.6 [facility] Comment on above: Increased risk for d iabetes: 5.7 - 6.4diabetes: >6.4glycemic control for adults with diabetes: <7.0 Hemoglobin [Mass/volume] in BloodOrdered By: Bentley Lucero on 04-16-2023 Hemoglobin (Bld) [Mass/Vol] 12.3 g/dL 11.8-15.4 [facility] Insulinon 04-16-2023 Insulin 44.2 u[iU]/mL High 2.6-24.9 [facility] Comment on above: Result Comment: Perf ormed at: CB - [facility] [place] [id number] Filter Helper: Arturo Souza PhD, Phone: [phone] PERFORMED BY: [facility] [address] [place] [address] PATHOLOGIST JUKEBOX CHECKER PRICE ZUNIGA M.D. Performed By: #### T SH3 wRFLX, A1C WTH eA, CBC, CALLUM, CMP, FE and TIBC, B12, [id number] ####[facility] [id number]#### INSULIN ####[facility] , Iron [Mass/volume] in Serum or PlasmaOrdered By: Bentley Lucero on 04-16-2023 Iron [Mass/Vol] 55 ug/dL 50-212 [facility] Iron and TIBC Profileon 08-0 % Iron Saturation 16.0 % Low 20-50 [facility] Comment on above: Performed By: #### T SH3 wRFLX, A1C WTH eA, CBC, CALLUM, CMP, FE and TIBC, B12, [id number] #### [facility] [address] [place] [address] [place] #### INSULIN #### [facility] , Iron [Mass/Vol] 55 ug/dL Normal 50-212 [facility] Comment on above: Performed By: #### T SH3 wRFLX, A1C WTH eA, CBC, CALLUM, CMP, FE and TIBC, B12, [id number] #### [facility] [address] [place] [address] [place] #### INSULIN #### [facility] , Total Iron Binding Capacity 344 ug/dL Normal 255-450 [facility] Comment on above: Performed By: #### T SH3 wRFLX, A1C WTH eA, CBC, CALLUM, CMP, FE and TIBC, B12, [id number] #### [facility] [address] [place] [address] [place] #### INSULIN #### [facility] , Transferrin [Mass/Vol] 246 mg/dL Normal 203-362 [facility] Comment on above: Performed By: #### T SH3 wRFLX, A1C WTH eA, CBC, CALLUM, CMP, FE and TIBC, B12, [id number] #### [facility] [address] [place] [address] [place] #### INSULIN #### [facility] , Iron binding capacity [Mass/ volume] in Serum or PlasmaOrdered By: Bentley Lucero on 04-16-2023 Iron binding capacity [Mass/Vol] 344 ug/dL 255-450 [facility] Iron saturation [Mass Fracti on] in Serum or PlasmaOrdered By: Bentley Lucero on 04-16-2023 Iron saturation [Mass fraction] 16.0 % 20-50 [facility] Leukocytes [#/volume] correc flavio for nucleated erythrocytes in Blood by Automated counOrdered By: Bentley Lucero on 04-16-2023 WBC corrected for nucl RBC Auto (Bld) [#/Vol] 4.9 10*3/uL 3.8-11.6 [facility] Lymphocytes Auto (Bld) [#/Vo l]Ordered By: Bentley Lucero on 04-16-2023 Lymphocytes (Bld) [#/Vol] 2.2 10*3/uL 1.00-4.8 [facility] Lymphocytes/100 WBC Auto (Bl d)Ordered By: Bentley Lucero on 04-16-2023 Lymphocytes/100 WBC (Bld) 43.7 % . [facility] MCH Auto (RBC) [Entitic mass ]Ordered By: Bentley Lucero on 04-16-2023 MCH (RBC) [Entitic mass] 27.0 pg 24.7-34.3 [facility] MCHC Auto (RBC) [Mass/Vol]Or dered By: Bentley Lucero on 04-16-2023 MCHC (RBC) [Mass/Vol] 33.8 g/dL 32.0-35.0 [facility] MCV Auto (RBC) [Entitic vol] Ordered By: Bentley Englishc on 04-16-2023 MCV (RBC) [Entitic vol] 79.9 fL 80-100 [facility] Monocytes Auto (Bld) [#/Vol] Ordered By: Bentley Englishc on 04-16-2023 Monocytes (Bld) [#/Vol] 0.3 10*3/uL 0.0-0.8 [facility] Monocytes/100 WBC Auto (Bld) Ordered By: Bentley Englishc on 04-16-2023 Monocytes/100 WBC (Bld) 5.2 % . [facility] Neutrophils Auto (Bld) [#/Vo l]Ordered By: Bentley Tristansic on 04-16-2023 Neutrophils (Bld) [#/Vol] 2.3 10*3/uL 1.8-7.7 [facility] Neutrophils/100 WBC Auto (Bl d)Ordered By: Bentley Englishc on 04-16-2023 Neutrophils/100 WBC (Bld) 47.3 % . [facility] No Panel InformationOrdered By: Bentley Lucero on 04-16-2023 Estimated GFR (CKD-EPI) > 60.0 mL/Min [facility] Creatinine Clearance (Chem N/A [facility] Nucleated erythrocytes [Pres ence] in Blood by Automated countOrdered By: Bentley Lucero on 04-16-2023 Nucleated RBC Auto Ql (Bld) 0.2 /100{WBC} 0-0.5 [facility] Platelet mean volume Auto (B ld) [Entitic vol]Ordered By: Bentley Lucero on 04-16-2023 Platelet mean volume (Bld) [Entitic vol] 9.2 fL 6.3-10.7 [facility] Platelets Auto (Bld) [#/Vol] Ordered By: Bentley Lucero on 04-16-2023 Platelets (Bld) [#/Vol] 260 10*3/uL 150-450 [facility] Potassium [Moles/volume] in Serum or PlasmaOrdered By: Bentley Lucero on 04-16-2023 Potassium [Moles/Vol] 3.9 mmol/L 3.5-5.1 [facility] Protein [Mass/volume] in Ser um or PlasmaOrdered By: Bentley Lucero on 04-16-2023 Protein [Mass/Vol] 6.9 g/dL 6.4-8.9 [facility] RBC Auto (Bld) [#/Vol]Ordere d By: Bentley Lucero on 04-16-2023 RBC (Bld) [#/Vol] 4.57 10*6/uL 3.60-5.00 [facility] Serum or plasma albumin/glob ulin mass ratioOrdered By: Bentley Lucero on 04-16-2023 Albumin/Globulin [Mass ratio] 1.7 {ratio} [facility] Serum or plasma anion gap de terminationOrdered By: Bentley Lucero on 04-16-2023 Anion gap [Moles/Vol] 10.1 mmol/L 6.0-15.0 [facility] Serum or plasma insulin jose urement (units/volume)Ordered By: Bentley Lucero on 04-16-2023 Insulin Qn 44.2 u[iU]/mL 2.6-24.9 [facility] Comment on above: Performed at: [address] [id number] Director: Arturo Souza PhD, Phone: [phone] Sodium [Moles/volume] in Ser um or PlasmaOrdered By: Bentley Lucero on 04-16-2023 Sodium [Moles/Vol] 140 mmol/L 136-145 [facility] Thyroid Stim Hormone w/Rflxo n 04-16-2023 Thyroid Stim Hormone w/Rflx 1.14 u[iU]/mL Normal 0.45-5.33 [facility] Comment on above: Performed By: #### T SH3 wRFLX, A1C WTH eA, CBC, CALLUM, CMP, FE and TIBC, B12, [id number] #### [facility] [address] [place] [address] #### INSULIN #### [facility] , Thyrotropin [Units/volume] i n Serum or PlasmaOrdered By: Bentley Lucero on 04-16-2023 TSH Qn 1.14 m[IU]/L 0.45-5.33 [facility] Transferrin [Mass/volume] in Serum or PlasmaOrdered By: Bentley Lucero on 04-16-2023 Transferrin [Mass/Vol] 246 mg/dL 203-362 [facility] Urea nitrogen [Mass/volume] in Serum or PlasmaOrdered By: Bentley Lucero on 04-16-2023 Urea nitrogen [Mass/Vol] 14 mg/dL 7-25 [facility] Vitamin B12on 04-16-2023 Cobalamin (Vitamin B12) [Mass/Vol] 195 pg/mL Normal 180-914 [facility] Comment on above: Performed By: #### T SH3 wRFLX, A1C WTH eA, CBC, CALLUM, CMP, FE and TIBC, B12, [id number] #### [facility] [address] [place] [address] [place] #### INSULIN #### [facility] , Vitamin B12 ser/plasOrdered By: Bentley Lucero on 04-16-2023 Cobalamin (Vitamin B12) [Mass/Vol] 195 pg/mL 180-914 [facility] Vitamin D 25 Hydroxy Totalon 04-16-2023 Vitamin D 25 Hydroxy Total 21.1 ng/mL Low 30-100 [facility] Comment on above: Result Comment: BAHMAN MIN D STATUS 25(OH)VITAMIN D RANGE (ng/mL) Deficient <20 Insufficient 20 to <30 Sufficient 30 to 100 Reference: Briana Billy, Brenton VARGAS, et al. Evaluation,treatment, and prevention of vitamin D deficiency; an Endocrine Society clinical practice guideline. JCEM. 2010; 96(7):1911-30. PERFORMED BY: [facility] [address] [place] [address] PATHOLOGIST JUKEBOX CHECKER PRICE ZUNIGA M.D. Performed By: #### T SH3 wRFLX, A1C WTH eA, CBC, CALLUM, CMP, FE and TIBC, B12, [id number] ####[facility]#### INSULIN ####[facility] , Vitamin D+Metabolites [Mass/ volume] in Serum or PlasmaOrdered By: Bentley Lucero on 04-16-2023 Vitamin D+Metabolites [Mass/Vol] 21.1 ng/mL 30-100 [facility] Comment on above: VITAMIN D STATUS 25( [place])VITAMIN D RANGE (ng/mL) Deficient <20 Insufficient 20 to <30Sufficient 30 to 100Reference: Briana Billy, Brenton VARGAS, et al. Evaluation,treatment, and prevention of vitamin D deficiency; an Endocrine Society clinical practice guideline. JCEM. 2010; 96(7):1911-30. WBC Auto (Bld) [#/Vol]Ordere d By: Bentley Lucero on 04-16-2023 WBC (Bld) [#/Vol] 4.9 10*3/uL 3.8-11.6 [facility] ER URINE PROFILEon 3 Bilirubin Ql (U) Negative Normal NEGATIVE [facility] Comment on above: Performed By: #### P REGU, ERUR, UMICRO #### [facility] [address] [place] [address] [address] Samm Hurtado Clarity (U) CLEAR Normal CLEAR [facility] Comment on above: Performed By: #### P REGU, ERUR, UMICRO #### [facility] [address] [place] [address] [address] Samm Hurtado Color (U) YELLOW Normal YELLOW [facility] Comment on above: Performed By: #### P REGU, ERUR, UMICRO #### [facility] [address] [address] [address] Samm OVALLE A micrscopic examination will be performed if indicated. Normal [facility] Comment on above: Performed By: #### P REGU, ERUR, UMICRO #### [facility] [address] [address] [address] Samm Hurtado Glucose Ql (U) Negative Normal NEGATIVE [facility] Comment on above: Performed By: #### P REGU, ERUR, UMICRO #### [facility] [address] [address] [address] Samm Hurtado Hemoglobin Ql (U) LARGE Abnormal NEGATIVE [facility] Comment on above: Performed By: #### P REGU, ERUR, UMICRO #### [facility] [address] [address] [address] Samm Hurtado Ketones Ql (U) Negative Normal NEGATIVE [facility] Comment on above: Performed By: #### P REGU, ERUR, UMICRO #### [facility] [address] [place] [address] [address] Samm Hurtado LEUKOCYTES Negative Normal NEGATIVE [facility] Comment on above: Performed By: #### P REGU, ERUR, UMICRO #### [facility] [address] [address] [address] Samm Hurtado Nitrite Ql (U) Negative Normal NEGATIVE [facility] Comment on above: Performed By: #### P REGU, ERUR, UMICRO #### [facility] [address] [address] [address] Samm Hurtado pH (U) 5.5 [pH] Normal 5-9 [facility] Comment on above: Performed By: #### P REGU, ERUR, UMICRO #### [facility] [address] [address] [address] Samm Hurtado SPEC GRAVITY >=1.030 Abnormal 1.005-<=1.[address] [place] [address] Comment on above: Performed By: #### P REGU, ERUR, UMICRO #### [facility] [address] [place] [address] [address] Samm Hurtado UA PROTEIN Negative Normal NEGATIVE/ TRACE [facility] Comment on above: Performed By: #### P REGU, ERUR, UMICRO #### [facility] [address] [place] [address] Dr. Samm Hurtado UR MICRO IND INDICATED Normal [facility] Comment on above: Performed By: #### P REGU, ERUR, UMICRO #### [facility] [address] [place] [address] Dr. Samm Hurtado Urobilinogen Qn (U) 0.2 {Ewdin'U}/dL Normal 0.2 - 1. 0 [facility] Comment on above: Performed By: #### P REGU, ERUR, UMICRO #### [facility] [address] [place] [address] Dr. Samm Hurtado URon 01-01-2023 , QUAL Negative Normal NEGATIVE [facility] Comment on above: Performed By: #### P REGU, ERUR, UMICRO #### [facility] [address] [place] [address] Dr. Samm Hurtado RESPIRATORY PANEL PLUSon Adenovirus Not detected Normal NOT DETECTED [facility] Comment on above: Performed By: #### R SPLUS ####[facility] [address] [place] [address]Dr. Samm Hurtado B. Parapertusis Not detected Normal NOT DETECTED [facility] Comment on above: Performed By: #### R SPLUS ####[facility] [address] [place] [address]Dr. Samm Hurtado B. Pertussis Not detected Normal NOT DETECTED [facility] Comment on above: Performed By: #### R SPLUS ####[facility] [address] [address]Dr. Samm Hurtado Chlamydia Pneumoniae Not detected Normal NOT DETECTED [facility] Comment on above: Performed By: #### R SPLUS ####[facility] [address] [place], [place] [address]Dr. Samm Hurtado Coronavirus 229E Not detected Normal NOT DETECTED [facility] Comment on above: Performed By: #### R SPLUS ####[facility] [address] [place], [place] [address]Dr. Samm Hurtado Coronavirus HKU1 Not detected Normal NOT DETECTED [facility] Comment on above: Performed By: #### R SPLUS ####[facility] [address] [place], [place] [address]Dr. Samm Hurtado Coronavirus NL63 Not detected Normal NOT DETECTED [facility] Comment on above: Performed By: #### R SPLUS ####[facility] [address] [place], [place] [address]Dr. Samm Hurtado Coronavirus OC43 Not detected Normal NOT DETECTED [facility] Comment on above: Performed By: #### R SPLUS ####[facility] [address] [place], [place] [address]Dr. Samm Hurtado Influenza A H1 Not detected Normal NOT DETECTED [facility] Comment on above: Performed By: #### R SPLUS ####[facility] [address] [address]Dr. Samm Hurtado Influenza A H1 2009 Not detected Normal NOT DETECTED [facility] Comment on above: Performed By: #### R SPLUS ####[facility] [address] [place], [place] [address]Dr. Samm Hurtado Influenza A H3 Not detected Normal NOT DETECTED [facility] Comment on above: Performed By: #### R SPLUS ####[facility] [address] [address]Dr. Samm Hurtado Influenza B Not detected Normal NOT DETECTED [facility] Comment on above: Performed By: #### R SPLUS ####[facility] [address] [place], [place] [address]Dr. Samm Hurtado Metapneumovirus Not detected Normal NOT DETECTED [facility] Comment on above: Performed By: #### R SPLUS ####[facility] [address] [place], [place] [address]Dr. Samm Hurtado Mycoplas. Pneumoniae Not detected Normal NOT DETECTED [facility] Comment on above: Performed By: #### R SPLUS ####[facility] [address] [place], [place] [address]Dr. Samm Hurtado Parainfluenza 1 Not detected Normal NOT DETECTED [facility] Comment on above: Performed By: #### R SPLUS ####[facility] [address] [place], [place] [address]Dr. Samm Hurtado Parainfluenza 2 Not detected Normal NOT DETECTED [facility] Comment on above: Performed By: #### R SPLUS ####[facility] [address] [place], [place] [address]Dr. Samm Hurtado Parainfluenza 3 Not detected Normal NOT DETECTED [facility] Comment on above: Performed By: #### R SPLUS ####[facility] [address] [place], [place] [address]Dr. Samm Hurtado Parainfluenza 4 Not detected Normal NOT DETECTED [facility] Comment on above: Performed By: #### R SPLUS ####[facility] [address] [place], [place] [address]Dr. Samm Hurtado Rhino/Enterovirus Detected Abnormal NOT DETECTED [facility] Comment on above: Performed By: #### R SPLUS ####[facility] [address] [place], [place] [address]Dr. Samm Hurtado RP2 Header 1 RESPIRATORY PANEL: VIRUSES Normal [facility] Comment on above: Performed By: #### R SPLUS ####[facility] [address] [place], [place] [address]Dr. Samm Hurtado RP2 Header 2 RESPIRATORY PANEL: BACTERIA Normal [facility] Comment on above: Performed By: #### R SPLUS ####[facility] [address] [address]Dr. Samm Hurtado RSV Not detected Normal NOT DETECTED [facility] Comment on above: Performed By: #### R SPLUS ####[facility] [address] [address]DrDaquan Hurtado SARS-CoV-2 (COVID-19) RNA PARI+probe Ql (Unsp spec) Not detected Normal NOT DETECTED [facility] Comment on above: Performed By: #### R SPLUS ####[facility] [address] [address]Dr. Samm Hurtado URINE MICROSCOPIC ONLYon BACTERIA NONE SEEN Normal NONE SEEN [facility] Comment on above: Performed By: #### P REGU, ERUR, UMICRO #### [facility] [address] [place] [address] Dr. Samm Hurtado Bacteria identified Cx Nom (U) NOT INDICATED Normal [facility] Comment on above: Performed By: #### P REGU ERUR, UMICRO #### [facility] [address] [address] [address] Samm Hurtado CAST NONE SEEN Normal NONE SEEN [facility] Comment on above: Performed By: #### P REGU, ERUR, UMICRO #### [facility] [address] [place] [address] Dr. Samm Hurtado Crystals LM Nom (Urine sed) SEEN Abnormal NONE SEEN [facility] Comment on above: Performed By: #### P REGU, ERUR, UMICRO #### [facility] [address] [address] [address] Samm Hurtado Epithelial cells LM Ql (Urine sed) FEW Abnormal NONE SEEN /RARE [facility] Comment on above: Performed By: #### P REGU, ERUR, UMICRO #### [facility] [address] [address] [address] Samm Hurtado MUCOUS TRACE Abnormal NONE SEEN [facility] Comment on above: Performed By: #### P REGU, ERUR, UMICRO #### [facility] [address] [address] [address] Samm Hurtado RBC 10-20 Abnormal 0-2 [facility] Comment on above: Performed By: #### P REGU, ERUR, UMICRO #### [facility] [address] [place], [place] [address] Dr. Samm Hurtado WBC NONE SEEN Normal NONE SEEN [facility] Comment on above: Performed By: #### P REGU, ERUR, UMICRO #### [facility] [address] [place], [place] [address] Dr. Samm Hurtado XR CHEST 1 Von [...] VANESSA JEREZ Date: 2023-01-01 13:22 Normal [facility] CT lumbar spine wo conon CT lumbar spine wo con [facility] [place] [address] CT Scan Report Signed Patient: Leena Interiano MR#: [id number] : 1990 Acct:[id number] Age/Sex: 32 / F ADM Date: 10/30/22 Loc: [place] Room: Type: [facility] CL Attending Dr: Bentley TIMMONS Copies to: [...] Adriana Hoffman M.D.10/30/2022 5:11 PM Dictation Location: [place] [address] Transcribed By: [facility] 10/30/221710 Dictated By: Adriana Hoffman MD 10/30/221702 Signed By: 10/30/22 171 [facility] breast LT [facility] 10-30 breast LT [facility] [place] [address] Mammography Report Signed Patient: Leena Interiano MR#: [id number] : 1990 Acct:[id number] Age/Sex: 32 / F ADM Date: 10/30/22 Loc: [place] Room: Type: REG CLI Attending Dr: Bentley TIMMONS Copies to: SHANELLE Galdamez Ordering Provider: SHANELLE Galdamez Date of Service: 10/30/22 MM/MM diagnostic mammo BI w/CAD: Mass overlapping multiple quadrants of left breast ([id number]) US/US breast LT limited: Mass overlapping multiple [...] Lanza Jr., D.O.10/30/2022 4:09 PM Dictation Location: [facility] Transcribed By: VALERIE 10/30/22 1609 Dictated By: Adalberto Lanza Jr, DO 10/30/22 1608 Signed By: 10/30/22 1609 Normal [facility] Albumin [Mass/volume] in Ser um or PlasmaOrdered By: Bentley Lucero on 10-09-2022 Albumin [Mass/Vol] 4.1 g/dL 3.2-5.5 [facility] Basophils Auto (Bld) [#/Vol] Ordered By: Bentley Lucero on 10-09-2022 Basophils (Bld) [#/Vol] 0.0 10*3/uL 0.0-0.2 [facility] Basophils/100 WBC Auto (Bld) Ordered By: Bentley Lucero on 10-09-2022 Basophils/100 WBC (Bld) 0.8 % . [facility] CT biopsyOrdered By: Bentley carcamo on 10-09-2022 Transferrin [Mass/Vol] 291 mg/dL 180-380 [facility] Complete Blood Count Auto Di ffon 10-09-2022 Basophils (Bld) [#/Vol] 0.0 10*3/uL Normal 0.0-0.2 [facility] Comment on above: Order Comment: Reaso n for Exam Iron deficiency Result Comment: PERF ORMED BY: [facility] [address] [facility] [place] [address] PATHOLOGIST JUKEBOX CHECKER PRICE ZUNIGA M.D. Performed By: #### C BC, CMP, [id number], FE and TIBC ####[address] Basophils/100 WBC (Bld) 0.8 % Normal . [facility] Comment on above: Order Comment: Reaso n for Exam Iron deficiency Performed By: #### C BC, CMP, [id number], FE and TIBC ####[place] [id number] [facility] Eosinophils (Bld) [#/Vol] 0.1 10*3/uL Normal 0.0-0.45 [facility] Comment on above: Order Comment: Reaso n for Exam Iron deficiency Performed By: #### C BC, CMP, [id number], FE and TIBC ####[place] [id number] [facility] Eosinophils/100 WBC (Bld) 1.3 % Normal . [facility] Comment on above: Order Comment: Reaso n for Exam Iron deficiency Performed By: #### C BC, CMP, [id number], FE and TIBC ####[place] [id number] [facility] Erythrocyte distribution width (RBC) [Ratio] 13.8 % Normal 11.9-15.3 [facility] Comment on above: Order Comment: Reaso n for Exam Iron deficiency Performed By: #### C BC, CMP, [id number], FE and TIBC ####[address] Hematocrit (Bld) [Volume fraction] 39.3 % Normal 34.0-46.4 [facility] Comment on above: Order Comment: Reaso n for Exam Iron deficiency Performed By: #### C BC, CMP, [id number], FE and TIBC ####[address] Hemoglobin (Bld) [Mass/Vol] 12.9 g/dL Normal 11.8-15.4 [facility] Comment on above: Order Comment: Reaso n for Exam Iron deficiency Performed By: #### C BC, CMP, [id number], FE and TIBC ####[address] Lymphocytes (Bld) [#/Vol] 2.5 10*3/uL Normal 1.00-4.8 [facility] Comment on above: Order Comment: Reaso n for Exam Iron deficiency Performed By: #### C BC, CMP, [id number], FE and TIBC ####[address] Lymphocytes/100 WBC (Bld) 44.5 % Normal . [facility] Comment on above: Order Comment: Reaso n for Exam Iron deficiency Performed By: #### C BC, CMP, [id number], FE and TIBC ####[address] MCH (RBC) [Entitic mass] 26.2 pg Normal 24.7-34.3 [facility] Comment on above: Order Comment: Reaso n for Exam Iron deficiency Performed By: #### C BC, CMP, [id number], FE and TIBC ####[address] MCV (RBC) [Entitic vol] 80.1 fL Normal 80-100 F [facility] Comment on above: Order Comment: Reaso n for Exam Iron deficiency Performed By: #### C BC, CMP, [id number], FE and TIBC ####[address] Mean Corpuscular HGB Conc 32.7 g/dL Normal 32.0-35.0 [facility] Comment on above: Order Comment: Reaso n for Exam Iron deficiency Performed By: #### C BC, CMP, [id number], FE and TIBC ####[address] Monocytes (Bld) [#/Vol] 0.4 10*3/uL Normal 0.0-0.8 [facility] Comment on above: Order Comment: Reaso n for Exam Iron deficiency Performed By: #### C BC, CMP, [id number], FE and TIBC ####[address] Monocytes/100 WBC (Bld) 6.5 % Normal . [facility] Comment on above: Order Comment: Reaso n for Exam Iron deficiency Performed By: #### C BC, CMP, [id number], FE and TIBC ####[address] Neutrophils (Bld) [#/Vol] 2.6 10*3/uL Normal 1.8-7.7 [facility] Comment on above: Order Comment: Reaso n for Exam Iron deficiency Performed By: #### C BC, CMP, [id number], FE and TIBC ####[address] Neutrophils/100 WBC (Bld) 46.9 % Normal . [facility] Comment on above: Order Comment: Reaso n for Exam Iron deficiency Performed By: #### C BC, CMP, [id number], FE and TIBC ####[address] NRBC% 0.2 /100{WBC} Normal 0-0.5 [facility] Comment on above: Order Comment: Reaso n for Exam Iron deficiency Performed By: #### C BC, CMP, [id number], FE and TIBC ####[address] Platelet mean volume (Bld) [Entitic vol] 9.2 fL Normal 6.3-10.7 [facility] Comment on above: Order Comment: Reaso n for Exam Iron deficiency Performed By: #### C BC, CMP, [id number], FE and TIBC ####[place] [id number] [facility] Platelets (Bld) [#/Vol] 263 10*3/uL Normal 150-450 [facility] Comment on above: Order Comment: Reaso n for Exam Iron deficiency Performed By: #### C BC, CMP, [id number], FE and TIBC ####[place] [id number] [facility] RBC (Bld) [#/Vol] 4.91 10*6/uL Normal 3.60-5.00 [facility] Comment on above: Order Comment: Reaso n for Exam Iron deficiency Performed By: #### C BC, CMP, [id number], FE and TIBC ####[place] [id number] [facility] WBC (Bld) [#/Vol] 5.5 10*3/uL Normal 3.8-11.6 [facility] Comment on above: Order Comment: Reaso n for Exam Iron deficiency Performed By: #### C BC, CMP, [id number], FE and TIBC ####[place] [id number] [facility] Comprehensive Metabolic Pane adam 10-09-2022 Albumin [Mass/Vol] 4.1 g/dL Normal 3.2-5.5 [facility] Comment on above: Order Comment: Reaso n for Exam Iron deficiency Reason for Exam Vitamin D deficiency Performed By: #### C BC, CMP, [id number], FE and TIBC ####[place] [id number] [place] Albumin/Globulin [Mass ratio] 1.5 {ratio} Normal [facility] Comment on above: Order Comment: Reaso n for Exam Iron deficiency Reason for Exam Vitamin D deficiency Performed By: #### C BC, CMP, [id number], FE and TIBC ####[place] [id number] [place] [address] [facility] ALP [Catalytic activity/Vol] 47 U/L Normal 32-92 [facility] Comment on above: Order Comment: Reaso n for Exam Iron deficiency Reason for Exam Vitamin D deficiency Performed By: #### C BC, CMP, [id number], FE and TIBC ####[place] [id number] [place] [address] [facility] ALT [Catalytic activity/Vol] 18 U/L Normal 10-60 [facility] Comment on above: Order Comment: Reaso n for Exam Iron deficiency Reason for Exam Vitamin D deficiency Performed By: #### C BC, CMP, [id number], FE and TIBC ####[place] [id number] [facility] Anion gap [Moles/Vol] 11.7 mmol/L Normal 6.0-15.0 [facility] Comment on above: Order Comment: Reaso n for Exam Iron deficiency Reason for Exam Vitamin D deficiency Performed By: #### C BC, CMP, [id number], FE and TIBC ####[address] [address] [facility] AST [Catalytic activity/Vol] 19 U/L Normal 10-42 [facility] Comment on above: Order Comment: Reaso n for Exam Iron deficiency Reason for Exam Vitamin D deficiency Performed By: #### C BC, CMP, [id number], FE and TIBC ####[place] [id number] [facility] Bilirubin [Mass/Vol] 0.6 mg/dL Normal 0.3-1.2 [facility] Comment on above: Order Comment: Reaso n for Exam Iron deficiency Reason for Exam Vitamin D deficiency Performed By: #### C BC, CMP, [id number], FE and TIBC ####[address] [address] [facility] Calcium [Mass/Vol] 9.1 mg/dL Normal 8.2-10.2 [facility] Comment on above: Order Comment: Reaso n for Exam Iron deficiency Reason for Exam Vitamin D deficiency Performed By: #### C BC, CMP, [id number], FE and TIBC ####[address] [address] [facility] Chloride [Moles/Vol] 106 mmol/L Normal 95-114 [facility] Comment on above: Order Comment: Reaso n for Exam Iron deficiency Reason for Exam Vitamin D deficiency Performed By: #### C BC, CMP, [id number], FE and TIBC ####[address] [address] [facility] CO2 [Moles/Vol] 23.6 mmol/L Normal 22.0-30.0 [facility] Comment on above: Order Comment: Reaso n for Exam Iron deficiency Reason for Exam Vitamin D deficiency Performed By: #### C BC, CMP, [id number], FE and TIBC ####[address] [address] [facility] Creatinine [Mass/Vol] 0.75 mg/dL Normal 0.44-1.03 [facility] Comment on above: Order Comment: Reaso n for Exam Iron deficiency Reason for Exam Vitamin D deficiency Performed By: #### C BC, CMP, [id number], FE and TIBC ####[address] [address] [facility] Estimated GFR ( Edith > 60 [facility] Comment on above: Order Comment: Reaso n for Exam Iron deficiency Reason for Exam Vitamin D deficiency Result Comment: GFR estimated reference range: According to KDOQI guidelines, <60 ml/min/1.73m2 is sufficient to diagnose a patient with chronic kidney disease. Performed By: #### C BC, CMP, [id number], FE and TIBC ####[address] [address] [facility] Estimated GFR (Non- Am > 60 [facility] Comment on above: Order Comment: Reaso n for Exam Iron deficiency Reason for Exam Vitamin D deficiency Performed By: #### C BC, CMP, [id number], FE and TIBC ####[place] [id number] [place] [address] [facility] Globulin (S) [Mass/Vol] 2.8 g/dL Normal F [facility] Comment on above: Order Comment: Reaso n for Exam Iron deficiency Reason for Exam Vitamin D deficiency Performed By: #### C BC, CMP, [id number], FE and TIBC ####[address] [address] [facility] Glucose [Mass/Vol] 90 mg/dL Normal 70-100 [facility] Comment on above: Order Comment: Reaso n for Exam Iron deficiency Reason for Exam Vitamin D deficiency Result Comment: [place] Glucose Reference Range is dependent on time and content of last meal. Glucose of more than 200 mg/dL in a nonstressed, ambulatory subject supports the diagnosis of Diabetes Mellitus. ADA recommended reference range Performed By: #### C BC, CMP, [id number], FE and TIBC ####[address] [address] [facility] Potassium [Moles/Vol] 4.3 mmol/L Normal 3.5-5.1 [facility] Comment on above: Order Comment: Reaso n for Exam Iron deficiency Reason for Exam Vitamin D deficiency Performed By: #### C BC, CMP, [id number], FE and TIBC ####[address] [address] [facility] Protein [Mass/Vol] 6.9 g/dL Normal 6.1-7.9 [facility] Comment on above: Order Comment: Reaso n for Exam Iron deficiency Reason for Exam Vitamin D deficiency Performed By: #### C BC, CMP, [id number], FE and TIBC ####[address] [address] [facility] Sodium [Moles/Vol] 137 mmol/L Normal 136-146 [facility] Comment on above: Order Comment: Reaso n for Exam Iron deficiency Reason for Exam Vitamin D deficiency Performed By: #### C BC, CMP, [id number], FE and TIBC ####[facility] [id number] [place] [address] [facility] Urea nitrogen [Mass/Vol] 11 mg/dL Normal 9-23 [facility] Comment on above: Order Comment: Reaso n for Exam Iron deficiency Reason for Exam Vitamin D deficiency Performed By: #### C BC, CMP, [id number], FE and TIBC ####[facility] [id number] [place] [id number] [facility] Creatinine and Glomerular fi ltration rate.predicted panel (S/P/Bld)Ordered By: Bentley Lucero on 10-09-2022 Creatinine [Mass/Vol] 0.75 mg/dL 0.44-1.03 [facility] Eosinophils Auto (Bld) [#/Vo l]Ordered By: Bentley Lucero on 10-09-2022 Eosinophils (Bld) [#/Vol] 0.1 10*3/uL 0.0-0.45 [facility] Eosinophils/100 WBC Auto (Bl d)Ordered By: Bentley Lucero on 10-09-2022 Eosinophils/100 WBC (Bld) 1.3 % . [facility] Erythrocyte distribution wid th Auto (RBC) [Ratio]Ordered By: Bentley Lucero on 10-09-2022 Erythrocyte distribution width (RBC) [Ratio] 13.8 % 11.9-15.3 [facility] Estimated glomerular filtrat ion rate (GFR) non- AmericanOrdered By: Bentley Lucero on 10-09-2022 GFR/1.73 sq M.predicted among non-blacks MDRD (S/P/Bld) [Vol rate/Area] > 60 mL/Min [facility] Globulin Calc (S) [Mass/Vol] Ordered By: Bentley Lucero on 10-09-2022 Globulin (S) [Mass/Vol] 2.8 g/dL F [facility] Hematocrit Auto (Bld) [Volum e fraction]Ordered By: Bentley Lucero on 10-09-2022 Hematocrit (Bld) [Volume fraction] 39.3 % 34.0-46.4 [facility] Hemoglobin [Mass/volume] in BloodOrdered By: Bentley Lucero on 10-09-2022 Hemoglobin (Bld) [Mass/Vol] 12.9 g/dL 11.8-15.4 [facility] Iron [Mass/volume] in Serum or PlasmaOrdered By: Bentley Lucero on 10-09-2022 Iron [Mass/Vol] 112 ug/dL 40-150 [facility] Iron and TIBC Profileon 09-15 % Iron Saturation 27.5 % Normal 20-50 [facility] Comment on above: Order Comment: Reaso n for Exam Iron deficiency Reason for Exam Vitamin D deficiency Performed By: #### C BC, CMP, [id number], FE and TIBC ####[place] [id number] [place] [address] [facility] Iron [Mass/Vol] 112 ug/dL Normal 40-150 [facility] Comment on above: Order Comment: Reaso n for Exam Iron deficiency Reason for Exam Vitamin D deficiency Performed By: #### C BC, CMP, [id number], FE and TIBC ####[address] [address] [facility] Total Iron Binding Capacity 407 ug/dL Normal 255-450 [facility] Comment on above: Order Comment: Reaso n for Exam Iron deficiency Reason for Exam Vitamin D deficiency Performed By: #### C BC, CMP, [id number], FE and TIBC ####[place] [id number] [place] [address] [facility] Transferrin [Mass/Vol] 291 mg/dL Normal 180-380 [facility] Comment on above: Order Comment: Reaso n for Exam Iron deficiency Reason for Exam Vitamin D deficiency Performed By: #### C BC, CMP, [id number], FE and TIBC ####[address] [address] [facility] Iron binding capacity [Mass/ volume] in Serum or PlasmaOrdered By: Bentley Lucero on 10-09-2022 Iron binding capacity [Mass/Vol] 407 ug/dL 255-450 [facility] Iron saturation [Mass Fracti on] in Serum or PlasmaOrdered By: Bentley Lucero on 10-09-2022 Iron saturation [Mass fraction] 27.5 % 20-50 [facility] Leukocytes [#/volume] correc flavio for nucleated erythrocytes in Blood by Automated counOrdered By: Bentley Lucero on 10-09-2022 WBC corrected for nucl RBC Auto (Bld) [#/Vol] 5.5 10*3/uL 3.8-11.6 [facility] Lymphocytes Auto (Bld) [#/Vo l]Ordered By: Bentley Lucero on 10-09-2022 Lymphocytes (Bld) [#/Vol] 2.5 10*3/uL 1.00-4.8 [facility] Lymphocytes/100 WBC Auto (Bl d)Ordered By: Bentley Lucero on 10-09-2022 Lymphocytes/100 WBC (Bld) 44.5 % . [facility] MCH Auto (RBC) [Entitic mass ]Ordered By: Bentley Lucero on 10-09-2022 MCH (RBC) [Entitic mass] 26.2 pg 24.7-34.3 [facility] MCHC Auto (RBC) [Mass/Vol]Or dered By: Bentley Lucero on 10-09-2022 MCHC (RBC) [Mass/Vol] 32.7 g/dL 32.0-35.0 [facility] MCV Auto (RBC) [Entitic vol] Ordered By: Bentley Lucero on 10-09-2022 MCV (RBC) [Entitic vol] 80.1 fL 80-100 [facility] Monocytes Auto (Bld) [#/Vol] Ordered By: Bentley Lucero on 10-09-2022 Monocytes (Bld) [#/Vol] 0.4 10*3/uL 0.0-0.8 [facility] Monocytes/100 WBC Auto (Bld) Ordered By: Bentley Lucero on 10-09-2022 Monocytes/100 WBC (Bld) 6.5 % . [facility] Neutrophils Auto (Bld) [#/Vo l]Ordered By: Bentley Lucero on 10-09-2022 Neutrophils (Bld) [#/Vol] 2.6 10*3/uL 1.8-7.7 [facility] Neutrophils/100 WBC Auto (Bl d)Ordered By: Bentley Lucero on 10-09-2022 Neutrophils/100 WBC (Bld) 46.9 % . [facility] No Panel InformationOrdered By: Bentley Lucero on 10-09-2022 25-Hydroxy Vitamin D Total 15.6 ng/mL 30-100 [facility] Comment on above: VITAMIN D STATUS 25( [place])VITAMIN D RANGE (ng/mL) Deficient <20 Insufficient 20 to <30Sufficient 30 to 100Reference: Joe MF,Briana NC, Brenton VARGAS, et al. Evaluation,treatment, and prevention of vitamin D deficiency; an Endocrine Society clinical practice guideline. JCEM. 2010; 96(7):1911-30. Estimated GFR () > 60 mL/Min [facility] Comment on above: GFR estimated refere nce range: According to KDOQI guidelines, <60 ml/min/1.73m2 is sufficient to diagnose a patient with chronic kidney disease. Pharmacy Creatinine Clearance (Chem N/A [facility] Nucleated erythrocytes [Pres ence] in Blood by Automated countOrdered By: Bentley Lucero on 10-09-2022 Nucleated RBC Auto Ql (Bld) 0.2 /100{WBC} 0-0.5 [facility] Platelet mean volume Auto (B ld) [Entitic vol]Ordered By: Bentley Lucero on 10-09-2022 Platelet mean volume (Bld) [Entitic vol] 9.2 fL 6.3-10.7 [facility] Platelets Auto (Bld) [#/Vol] Ordered By: Bentley Lucero on 10-09-2022 Platelets (Bld) [#/Vol] 263 10*3/uL 150-450 [facility] Protein [Mass/volume] in Ser um or PlasmaOrdered By: Bentley Lucero on 10-09-2022 Protein [Mass/Vol] 6.9 g/dL 6.1-7.9 [facility] RBC Auto (Bld) [#/Vol]Ordere d By: Bentley Lucero on 10-09-2022 RBC (Bld) [#/Vol] 4.91 10*6/uL 3.60-5.00 [facility] Serum or plasma alanine bedoya otransferase measurement without P-5'-P (enzymatic activiOrdered By: Bentley Lucero on 10-09-2022 ALT No additional P-5'-P [Catalytic activity/Vol] 18 U/L 10-60 [facility] Serum or plasma albumin/glob ulin mass ratioOrdered By: Bentley Lucero on 10-09-2022 Albumin/Globulin [Mass ratio] 1.5 {ratio} [facility] Serum or plasma alkaline diaz sphatase measurement (enzymatic activity/volume)Ordered By: Bentley Lucero on 10-09-2022 ALP [Catalytic activity/Vol] 47 U/L 32-92 [facility] Serum or plasma anion gap de terminationOrdered By: Bentley Lucero on 10-09-2022 Anion gap [Moles/Vol] 11.7 mmol/L 6.0-15.0 [facility] Serum or plasma aspartate am inotransferase measurement (enzymatic activity/volume)Ordered By: Bentley Lucero on 10-09-2022 AST [Catalytic activity/Vol] 19 U/L 10-42 [facility] Serum or plasma calcium jose urement (mass/volume)Ordered By: Bentley Lucero on 10-09-2022 Calcium [Mass/Vol] 9.1 mg/dL 8.2-10.2 [facility] Serum or plasma chloride yobany surement (moles/volume)Ordered By: Bentley Lucero on 10-09-2022 Chloride [Moles/Vol] 106 mmol/L 95-114 [facility] Serum or plasma glucose jose urement (mass/volume)Ordered By: Bentley Lucero on 10-09-2022 Glucose [Mass/Vol] 90 mg/dL 70-100 [facility] Comment on above: ADA recommended refe rence rangeRandom Glucose Reference Range is dependent on time and content of last meal. Glucose of more than 200 mg/dL in a nonstressed, ambulatory subject supports the diagnosis of Diabetes Mellitus. Serum or plasma potassium me asurement (moles/volume)Ordered By: Bentley Lucero on 10-09-2022 Potassium [Moles/Vol] 4.3 mmol/L 3.5-5.1 [facility] Serum or plasma sodium measu rement (moles/volume)Ordered By: Bentley Lucero on 10-09-2022 Sodium [Moles/Vol] 137 mmol/L 136-146 [facility] Serum or plasma total biliru bin measurement (mass/volume)Ordered By: Bentley Lucero on 10-09-2022 Bilirubin [Mass/Vol] 0.6 mg/dL 0.3-1.2 [facility] Serum or plasma total carbon dioxide measurement (moles/volume)Ordered By: Bentley Lucero on 10-09-2022 CO2 [Moles/Vol] 23.6 mmol/L 22.0-30.0 [facility] Serum or plasma urea nitroge n measurement (mass/volume)Ordered By: Bentley Lucero on 10-09-2022 Urea nitrogen [Mass/Vol] 11 mg/dL 9-23 [facility] Vitamin D 25 Hydroxy Totalon 10-09-2022 Vitamin D 25 Hydroxy Total 15.6 ng/mL Low 30-100 [facility] Comment on above: Order [...] practice guideline. JCEM. 2010; 96(7):1911-30. PERFORMED BY: [facility] [address] [place] [address] PATHOLOGIST JUKEBOX CHECKER PRICE ZUNIGA M.D. Performed By: #### C BC, CMP, [id number], FE and TIBC ####[facility] [id number] [place] [address] [facility] WBC Auto (Bld) [#/Vol]Ordere d By: Bentley Lucero on 10-09-2022 WBC (Bld) [#/Vol] 5.5 10*3/uL 3.8-11.6 [facility] XR LSPINE 2_3 VIEWSon 2022 XR [...] VANESSA JEREZ Date: 2022-10-08 12:48 Normal [facility] ED Note-Physicianon 09-06-20 ED Note-Physician Basic Information [...] has bronchitis. Patient is deaf and an early childhood educator aide is used throughout the encounter. Review of [...] is afebrile. Patient is deaf, so an early childhood educator aide is used throughout the encounter. She denies [...] 3 days 09/01/2022 EST [address] [place] [id number]- [facility] (1) Additional Instructions: Follow-up with your primary care provider in 3 to 5 days. If symptoms worsen, do not improve, or new symptoms arise please report back to emergency department for further evaluation. Patient Education Acute Bronchitis, Adult Attestation Patient seen and evaluated by the physician first assistant manager. Attending physician was present in the emergency department and supervised care. This visit was performed by both the physician and an APC. I performed all aspects of the MDM as documented. This report was transcribed using voice recognition software. Every effort was made to ensure accuracy, however, inadvertently computerized diet technician registered mistakes may be present. Appropriate healthcare PPE [...] Tab, 25 (more content not included)... Normal [facility] Comment on above: Result Comment: Elec tronically Signed By: Ron James PA-C\.br\Date and Time Signed: 08/29/22 18:33 EST\.br\Electronically Co-Signed By: Kristopher Clemons DO\.br\Date and Time Co-Signed: 09/06/22 07:00 EST Coding Summary.on 09-02-2022 Coding Summary. [id number] Gh 0bWw+PGhlYWQ+VY8MVGUnT 62taBWjsW7EH2yFZF4FGKN GZZCHEI2FOA2ocFG8ZJdgF 2VybiAv JrrgoSJaFI43HCm6VBJ1sY gnTYtyrP1xwLMxF6y3IyKp MA03fM52WJsdWPLsPwK1Ic ZpbjsgbWFy R6qpXeQklBJlKmi+PHRhYm xlIHdpZHRoPScxMDAlJyBz hNrrQR3eJb6vHMOoYFFjkE xhcHNlOiBj f4ixMDWxYTyjKK9eoMuxC9 QwlBU6TZNkt9w8Fi37rXT+ MGOhXZO0mYxfYRuzy532Wj Cnh1ajYWK6 hIKrQVilLET8V68dy3X3TQ KqRVDmIQK2dVW7jJ6wvNsa qeffF0AqqTRkOaR1DQE5xS GiwW6cgEai kdsqiT1eLon+E33PUQ5CMU CLUE6KPcj2A3PcTmyhyDR+ BV23KTLsMJ41qWFvzYHon1 suzFu5LsRd LKNdFAS1jTdhDOgic7TnBF FjB02yaYSgc4M2HESxxEwi lOHzUrCiiBV1qE9eECrngk ymy8gugqof Fetmb5hucy82zG88L04bHL oaPQCkEEW5CPLeTYJpoDce ft4uaH5nVp8+ZKgie7nrd6 gyxSi3XlBi XUNekhOtiLjcKQZ0t6TnPs 87V1JirViig4WfQoc3hq13 xZJap3S0cGI1ICrfNMXfuH 2iIPpgFsD4 YSNiOsTptT99wLBdIGryRi 9umHxlxVquCW0rKBColtpx MCXxmU5kLUQdnJUakAfrKJ 4wNTBpbjtm a541ExLcAWO4ZIDldLNrX6 WdvF8iMiYyQDTlEHUxN4Pe sOSdGGgtO636RJsqHqE3XB OptmCtU4El XBUyxBryCwQ9j7M3Uw4Gu5 RtpancJMM0HOheXMUiZdGu KjHjJzZ4A9UeNci3KQOjyO ajYF3vA0Pb JEPfyoxmjzxppRN0LGErVC AsmN10tBBlXQedHb7sn0T5 r013UQTeKIMxgC10Rj4tjY ogMTBwdCBU rY5vdzaot2htctwoYnTnHR HyPTc9VMt1UXYqyLzyZlUv SXE8MyR1CCH8xSTxhN1ktU igggbbzA6e Oyc+Z75bpI4dNTQ7ZRW0yy uzRVTqbeDjBW57EC88E0Ch PjwvdGFibGU+PGRpdiBzdH qoJX2aRvUv l2zfo1CeSUvsI8SkSZUlEL iyHmb1KFKuPCZ5yTA5fF1e DLVrFJmtl7K6uYZ9M5Ssmk Tfek4go8oy WWSjJDojW36tmRXco9I7EW FczJM7DDDuqOuaTeHybJ20 Oyc+CBBzpSkjq6BoGqxth4 quh3ckyYm9 ZlMfHSApaqZuaRyjURT1k7 HvWi67W42lSAiqCMKeQVAy JVJwYKXteCcefa8xdQ1rTx 8+PGNvbCB3 eMK2qL9vCDZpHgL8OAxtI6 06VlRqxXDnBsdrg3ptw0rx zHj0KeDjVCGprjTzcDmaSP W3x8SjSi84 K69qZKfhQJRxHTWgSQHbRA YnqRewlf5erK2jZe8+PC9j b0wacc31aW29oTU+PHRkIH O4xLcfMLrs CKRbiN0iFLxoRgP2LJQrIv VfbY31sTRiSHwcSb5dmBko xDclPB0bQSUvgpvzl501Ci Bkp1psMGQj hZEoMLoeEZO3Q65zd4W3VE QvEYJrJMO1jJR9uX5smGll bjogbGVmdDsgdmVydGljYW qnFFwrE536 IHRvcDsnPlBhdGllbnQgTm WsFDb2K5PaZkb1LPMiwRxo NI4elSJzZUdiGh4wvEvjgU qeGY0aHNZl xkwfm854RxWgu9bgDWGkyP DsDNntOFP1R23wk1C8WSQg GLCaAQL8vRM1uJ8jsXsijy ogbGVmdDsg pqLanOfgDIyoUTrvJ222HR RvcDsnPkJpcnRoIERhdGU6 WR22JT49hZTlf6J9zQU2Q3 BhZGRpbmct yjrfcRF3RMGwTCIiqQ16Tw 4ukApxKo0aFGTlWZJ8IUQh jUAaU8ChxO5fSlNhDBGwXS EaG8PmnNRs JPppN318YHusTvE4SMIyre YaN8TiCLHblLdmHtS6r3T0 Fm9AT1K1CE05UI61zRUsq1 Y8jKV3Y7Pf MUVzhhhfktfmwKB5JOGeCG QcrB59Km2jrSpkKu5pMAZo LXO3SZQlmMUjE0MueE4wQl AjMDAwMDAw F3KpxPJfUPbqC577EPbcRo H0YBJnrhXhU4NcYMKlqYtr KmA4l3U6Kv1DVMd1UQ23YB 87nKTbi8S2 hPS9W3GcKYGnfbqgtwdsoA K4ZHVmADNqjA58Ku0ztVkc Nu5hYABuUUU5ZXZvfBAoB0 FocS9dSbPz QPUzREIpP1NeoMIyLLmqZ0 00COqdPtE7IWCtcfIdK2Qe AGSnpQvfQdT5a4K8Cp1YSB RwFI94MFY2 jZE3ED59MP94V1GyGyopnH FibGU+PHRhYmxlIHdpZHRo UZuhACHoEdGvpTfcSV5nCd 9yZGVyLWNv mWjuuLNwIyAne9olYPMjOK mpDV9voGkgP8YejAM4CWPl y0v3Mw12A04lN3DsvWT+PG TraMN5yRH3 uP8xAfOaFeH7KSvqZ311We UjsRPlFywpi7gpx8musRz6 GwZ8LJSutyLkzOwaTIP2o3 GlAl53I47w IHdpZHRoPSIxNSUiIHZhbG dnmw9giX9sTt6+PGNvbCB3 pGJ4tK5qFhIsAgM6AGsrI9 49InRvcCIv Hyjrx4ksj3ixbBb8JzDmAD QexnEknRmbETZ5y8FtLq66 M6CmnCozn9AnGex9ae87kO Enn4B7pUI7 S1GpFOAhbzhktSUteOhnEB 2mINUgtjrqZUTpdP6xOFTk A4w2XlEqDlZ1UZwrV7Oasv K6KGRobIMw BKlpCPI1A00ca7N5QNAoFU IrFLM9hBB9rS7hfZznouig bGVmdDsgdmVydGljYWwtYW neL867JKXx hFbxFRDyrF0mUVEngEIfbP azCB2qGXEsfeqgXlcREMml IEpBREEgTTwvdGQ+PHRkIH Y9jNfsKMaw LGCjnM8yNZTxB0m7BrCvYk S3FTufZ3KrGYAzipheJw80 mC0wJeExSjL2KEcoU2Ooty N6DURcxZLy BBfhBKJ7J85sq2Y1IEAgNL GsPLE8uRA1mF4jeHqlzozw bGVmdDsgdmVydGljYWwtYW wsY715VVWg kNrvZcE2CtQ8ScA1NTV7C7 EpQav1XIGwoOziUZ5lmZAj FPqdBy8duSnjwYwjOA1kAM BpbjtwYWRk sZ9gXPFwtNSjnZtuMV7zZL Qyczkkx182YwCbZQA6CETw fJQrZ3CzaG9eMyMeVDZvGD RpI5VanZBz ZKozK899SInrOpU1OJCumj GxO2JqRZQupCkcPdX7b8Y6 Ax1lYCANILGtxwoqhPJ+PH WfVKR6bJwv QIwiMGQbkW6nAIObA0g6Fk RoUrQ9DPpbB7HuYMEalthg Is43fM3gHpAhJuH7WBulG8 RdboE8SUBs vPNwDMmxIVV3G33ko1M3VC YaKGCdZPU7iNL0vW3jzWvb bjogbGVmdDsgdmVydGljYW snZPwtZ354 IHRvcDsnPkZlbWFsZTwvdG Q+JFJuDJP4gOrkFBxwHFTu jM6yKWInS8d1YlWlEyP9EM htI9SsPDHr jesoTe07fA6rFeQgOzF2AL tkU8OmcbM0NILtfUWuWOha ZNY5I82qc4W7HPHuJAOuZU F8wQG1qA9e bGlnbjogbGVmdDsgdmVydG tzAHzgHNtyQ944LPChlWhe UdDmACMwJT2zvGshaAX+PC 37ye89F7Pw BixmQvp5WPMuWFB8kVJ5fE 2eXRPcNJbuz1R3xXA7D3Aw fqSuln2dd1ahYKRmIUbxB6 7bhCZoq2U1 YXTyaPP2VTBniTqbEhHdsD 93Oyc+TANxeDpxb1CnUpcu y9gdu6nzrJr9GdAwAMQrui FsaWduPSJ0 a8YoIw91G51rZXaoYYBcDW ZfQCHgCVKvzAsukz9qjO1l Ii8+VJYhfFZ9uEG8jX6yWr PyQmE5RUzg X856DfJdoXRhHzugs5jsd8 doeYw5UiGiGRXupyOaxJcc ZAP0q9YdSx36S6NzvJlgv0 OcFsd7bh94 dMSrx0G8eGM7R7DsVJIpiq fqeLDadNqnVD3jEIXsxdgu OSRicU5cCBNxT6x3RnTbFc R4RBfrQ0Ba fsT1IMLjnIGvJYNghWVIpQ 1igjvel4vonmnqWtNzUDHc TOf4OIc8ZTKsjKvqYcIuBG B4XlA5NMD0 mNQzfR9lfHwtfuzshW2oCu c+CSv1k8ukoVPbGX1kwID5 MV62UT30xSPqo8S2kON3G4 BhZGRpbmct kztqxRS1DIGkLNJzuR44Cm 6pvCkqSv8wHSPuULT7BKPm hXGlD5JfnP7lIyBlWCUrDV GtJ4XieWTp EHymJ263SAtlKiU8PHYxnh SlG8FzMSAevKfsMsD8b2Q4 Gj2LQH16XD45HQ41xLQmr8 T7qYM5R7Uu TJLtosylulmgzPZ5BATaKE HgvX69Aq8ciWnfYt7pNBIb HBV0EXAyaBKoS0JkpT1wNt AjMDAwMDAw D0CrjLMiKXekO336FGjxUq Z6RCHytoNfS8UiQIZeqGrv NmD1b3A8Wh4SJd25MO85ES 29mUDvh0Y6 pBF5I9UyELCgjolsduwfdD X7FDPyJZQgpB85Nc6sfFou Fh4eQNGlQTC6IMGdyXIbQ1 HudW6dTpEf IGCvDYWyO5RkbZQjNAjcI1 32YNmtCyB4PGFcxpDpV1Dw XBKxgFxvPfM4f7S1Tg0DBD fgxtp0G7Qu PjwvdHI+KK00JPWtMP73wT YjyLYbl0ptqSo3LuOeEOJl HZS5xQtuUIvxz3YyGNKfU7 8kcDLdb2R2 IGNv (more content not included)... Normal [facility] Coding Summary. CD:[id number] Gh 0bWw+PGhlYWQ+QA2GUDXmK 66mnMWmlB3YY1hGWK0FRKY NYROHJU1QLH3hqUT4GKdmW 2VybiAv XqsrgOQbOR82FHg7SGB9bP urCMkwuO0yxLXvZ7h0KvOc DS74cR69TSnqNJAjOrN1Vc ZpbjsgbWFy T9mzQjPkgEAlVet+PHRhYm xlIHdpZHRoPScxMDAlJyBz qFwiDU0sLs9vPSSdECFyxB xhcHNlOiBj r2bjLNLuSZhyBB0xkJvcR3 TcpFN9NLIxr0v9Jm25qMS+ QLTcRMH9uNotZEbre529Og Wua9pgTQT9 bQInQMtzYNZ1X09zp2E7NB MwGNJvEMQ1hGO2kV7xaFmw twpvT4PbyUAjNfQ9UZB3fR XayS0icBrh hrhbaB6tMwb+X12CVU5KIA QRPH6BUti9T5VpCzcioKX+ XZ96ZZQwJG25tBVhaYGxw1 rbyYq5RiDx VUYtTGE3rTvjGYlxc9QaRG UmH95gbPNke0Z3JGPopGzy fOXhZwHztRZ4uJ0kOFiuag mhy5wzgmrr Fergz1xxdy90lP13U83mCF zqVCRcVAW3SQChUVXnhXdg vo2foT2bTq5+EDcum8owj5 bzaId2AfZw DMEoioYsnNqhEDG1e1MpFu 92I3QurTppw3EfFjz0qx63 rUNqf2W8pXK2RIsyYVEvaQ 4kVWprEwA3 VTWeGkMyfE75dZPcBOvqCm 0ysGjapZmhRW4kPKEgqivt TNMxgO5rBLWleTKrkUdhRN 4wNTBpbjtm z139PiSyILK6OQEbmDJiX9 MvrF3wIlAmJKCwABWqH3Vy rBJwFZxcS027OBxmLsC5CC VrqoYlF1Ti JSGkfLlpMlI3g1V1Fm9Zs6 QtceqkTCW4YGcqQTXwSlMb UeIpUmH4F6ZmNbg7LPFfyF grRP6qP4Fc RPXyeulsddhsgSG7ACNaYU ItjZ97gTBnFCifSv8tm6U5 c211SVLnAXUvkR09Sb3vlA ogMTBwdCBU mA4vpofxx1ldlwfdMuVrDK MaYPg7TLq1ABBzoBbgEgTr LYH2KjM3EFV1nPFgzU3jlZ cqjwueaK1y Oyc+X40eeL8wPRS6EOX2ic lqQVHvvrTpRQ13FC44H1Yp PjwvdGFibGU+PGRpdiBzdH feLZ7qMuZj m6hbh5GdGMruZ0RgSJNwUH giXvs7IDXyHKC4yKN0jN9b LPSkIGvof7N6wPQ9X8Welz Qnox6ry2gj BXGtYFfeJ22xdHLek0H6EB YabVG2ZSTzlYxgJoQtdX69 Oyc+DOPvlBoxg4SjQhceq5 wgu6tmtQx6 RcSgEFTsimEsuEzfVQW0k0 BsIl19L34hMZrwBQXwIINu DIPfJQAyjUzzfw6pkN7aNc 8+PGNvbCB3 dRE0iH3fRRXiGqR0HDpmJ3 80ZmUfrPGxQtynq2nlq7fd hHi2QsCoKUXamiRwpJiuLD W8s0WpYp77 S94fCOumMITePBUxEQSrRU GddFkfsn5qiK2tVj6+PC9j o1siag28eZ59wVM+PHRkIH X7uVhhPHsq YOOsaQ5sMHjiFlZ8TWJxXu RzkC50yYFoTVwrZu2auKxt mSpvJB6kRBPocbtpf583Ai Cuw4wsERPe oLOiDDncDDO0G21fp8H3LB EsYKBqBTE0gBB1bF9opAzd bjogbGVmdDsgdmVydGljYW rrEDvdZ607 IHRvcDsnPlBhdGllbnQgTm HyKKs0F8OzJfu8GYFzaDsl KZ5ztCWlLVhrDw3ubUawxW joCG9hNVGs dzwdd075UpIpb8oqCACcsO HpIQgeXNZ6B72kx9B8MIUu UGPmVBA2eJT9mS1mdDrmdx ogbGVmdDsg znNryZfmBXdxKKqcK845UE RvcDsnPkJpcnRoIERhdGU6 BI08ZI11rSKmf7P8zWP3X0 BhZGRpbmct jhyckBJ3FYXpFIQfrR13Vk 2imYopEg1fHMOyCWW0BLZi tLEgU1HohK9sHgBuNWYhVI LqN9HzmKIe XVmlC942NCquUtX0AIStyd SbF4DtQZEjoZyqVtC3c7D2 Ic5ZM5T0LU45MH31pGUmz1 E5zYR1D7Fm SLKgmheujplhoEG0MSEiMQ VvnK31Lw3hcQnvBa9cIFMe HUH5FHMsbOLnP7EvmZ4iSr AjMDAwMDAw R6GtpIRgZIixK486NUuyNf S4NLIfaeRxT0LaDYYcxVug JkP0z7L7Sd6QAYd4CM24DC 79tFQby6E3 eFT4P9AiWPRtupavujublE W4XFOjUXOvpN08Ea0seCza Ev3eUWOjWBO3UIGprEOgY4 HhbQ9aBiWs XVFlPPKoU6KhiXXuKWpyU7 27IKytHsY8DEEmmoWzS4Dj ENNyzLxrXaT0m5L1Eo7YYK TpNF81JPP7 cCY0EW47RG41L0SxBbrppI FibGU+PHRhYmxlIHdpZHRo CZxzVROnBeHyhFfpXW5iOy 9yZGVyLWNv qYnlmOEfBsGst4eqFWUiME kxDP8flBgsP4VebZN1FOWf e5f3St29C65eJ5MalSU+PG FmfNE7bHQ4 bL2rBzGmXxJ9IYywT531Hl BsdLRsBpvsb4ima1uqxIs6 GdV1BHWqvbPupTzxDDK3p9 BzZa26Z05t IHdpZHRoPSIxNSUiIHZhbG mcfi0viR0nGe6+PGNvbCB3 tAR4lF2rBqSvMlY5XTspX1 49InRvcCIv Rhxbd7ljd4okcCh5JtCnGQ EhwzWccJsvLCS4x3OhUn68 V8MlxAcec6PdGgh0hx63bM Doq6P2tAV1 W8WmPITpjhqzjUSasAdfCL 7mBCRqfnynUCYngR0bBKMe G5q0BbJkXcP3SYaoW2Sler O0CKPxuQGy CWeeMYN8E62ii8A0FHQnCX XvYPG8dKD6aL3ugQwamnhp bGVmdDsgdmVydGljYWwtYW elH920VPUu aKxoAKQaaT0bHQDhkNBbiB juWO2fXZVkjgdgDzpYPQdx IEpBREEgTTwvdGQ+PHRkIH U5oBgjFMmo KUBagC7eCCGvR2e0DfYgIj J9DPqcO8YhTRTcigxtEa25 mB8fNfZiPbT8MAwnG0Kozm M2NDXjkAHv HQizBJM1I13iq8P4THBsEH EsJKB6eSD6yI9nnJggjzxy bGVmdDsgdmVydGljYWwtYW zvD012NIYu aFhmKwN6CwF1MtD5SIQ8A0 ThHai0BMUqiCdcFA5kiYVz GJujYr0keTtkqYjjIT0mBO BpbjtwYWRk pA8gCJLhdAZqiZflUZ1qDL Mzjlviv923EiLaEED6LFNb iDRfZ9WwsR2fGoEbHTRgUP FqG2OiqXHg BJiaI943RTczLiE2CNPfdt AyG6AlTSUrqQutAcG2n7J7 Gc2hWYGZGUGslpzznLM+PH XsPCN9sDow ZEcdAQTacC7fZEHlR6n5Fx WqWrR1CEkhF0HkIFXzdfsi Hl83cU9xCaEkUwV9YDnvM6 MpzwG8LFZk vNVuIDjhNPU8S04et5X6CH ByLICjBES1pWH4mF3dqDci bjogbGVmdDsgdmVydGljYW ilXQimE053 IHRvcDsnPkZlbWFsZTwvdG Q+DJEbLOI9qLjySOmeQKVy fA6rIVMjQ5w0NoMzHmA4ZC tjT4CzFKLi bpupNh87sJ6gExOeTzY4BY bhX8AdxvC1RGTwyPFzCAdo TJR7D30mr2M9PDEyHDWhJA G5eJE7hA8t bGlnbjogbGVmdDsgdmVydG wmENjqCErvU294PVEkgNpw HxQtVGOyJR1mcLxcvTL+PC 78aa00U7Yh OgmnTva1PZCzDDJ0uDZ7aA 4gEVQeBStdt5P0tKV0A8Zq jcNprx9dn7mhNRNeOFmiF8 5zzDPwc4M7 WIJsbDY5QPNncJebYiPjcO 93Oyc+USRfpEkya4IpJwjq r3npp8xiyCb2YfPmILNtgd FsaWduPSJ0 i8KjIw73H42aUUigVOVfWI OmOCVyCXIvdKctci4rnM9r Ii8+PXDpvJQ6sIB9yW3sDx GuVmR1KGrq E234EvVpwODpFrrbe7dsm0 xpjMh2WoYqWCKajjZzoCxp ASF1u3RmOz95J6KyqWsqh6 JxCsn4xi60 xWQtl6I3nTN4Z8DpOOVgli pukXReeEoxXS5mGFQwuzrm PYNgtC3mIHDkL0e4LdFaWu E2EMvyB4Xw fdP6DAAjzIJiQWXhhPRQsP 5nivyhf4lysncpWwNrRJWq LYl2DDi7ISLahTmjFyTqAY Z1OtG8PGO1 xEJsqI1beZooqqnrgK1nRf c+TZy8w9kbwBTuBH0hdLG3 RF36OT63hGTrl8H4wKI0P3 BhZGRpbmct zehowMV1XSGwPKJyeN40Ec 3xkBxpMz7cIDUrNNA7WMAv bVYaE1SxaZ8oXsIdXRNcNE GcY3PsiVPm BSskZ877UVqjPvU2LFLxeq RxQ7PbOEFqcUcbZaX7q0K4 Fb4WXQ73EF10NL96kMNbl9 A5vSG2Q7Xw JRHvkaekcrwazHO4FILoYD AvvS85Lf0itLqqMl8jWQZt KKI5UPMkvZQeH9QfaC1rVg AjMDAwMDAw P4GrmQBbSRvmZ041DFznXc L5YVQjnlGyG0YmRMHijIor MgW2q3E1Hx9MNp22YY24VY 26fPJyx4D3 mDV1O7HcPHEyrlmalnwhyJ N2AKFkRAMfzV04Ee2gbWyi Ub1mJHXvAKH6KDZenOFoQ5 OzuK7uTsWh BRYlHJRwO6WwwQPlNBlhU8 09PMfjOhV8CFZcheVoK9Xt OLIloSubCjB2y6A2Lm1KBV oizbb3F7Bf PjwvdHI+DK40EKRqNU87kI FjaZWro8vmpNh7WwKuARTl QNE8mDlfVHdwc0IcVUFaE2 2tlXUoz7R0 IGNv (more content not included)... Normal [facility] Consent for Treatmenton 08-14 Consent for Treatment [id number] Normal [facility] Discharge Instructionson Discharge Instructions [id number]#1. [id number]:127 Normal [facility] ED Clinical Summaryon 2021 ED Clinical Summary [place] [id number] ED Clinical Summary Person Information Name: LEENA INTERIANO [facility] Age: 32 Years : 1990 Sex: Female Language: Sign Language PCP: BENTLEY LUCERO CNP Marital Status: Phone: [phone] Visit Id: Visit Reason: Sinus Pain/Congestion; Cough; [...] 08/29/2022 18:32:51 08/29/2022 18:32:51 08/29/2022 18:32:51 ADDRESS: [address] [place] [phone] [facility] DOC NOTES: MEDICAL INFORMATION: Prescriptions Given: [...] With: Address: When: BENTLEY LUCERO [address] [place], [place] [id number] [employer] (1) In 3 days 09/01/2022 Comments: Follow-up with your primary care provider in 3 to 5 days. If symptoms worsen, do not improve, or new symptoms arise please report back to emergency department for further evaluation. DIAGNOSIS: Bronchitis Normal [facility] ED Patient Education Noteon 08-29-2022 ED [...] these instructions at home: Medicines ? Take cgpx-zau-duaiwdf and prescription medicines only as told by [...] and water are not available, use hand relocation services specialist. ? Avoid contact with people who have [...] 10/08/2005 Document Revised: 07/14/2019 Document Reviewed: 02/18/2017 [employer] Good Patient Education ? 2019 [employer]. Normal [facility] ED Patient Summaryon 022 ED Patient Summary [address] [address] Patient Discharge Instructions Person Information Name: LEENA INTERIANO Age: 32 Years Arrival Date: 08/29/2022 17:23:21 Discharge Diagnosis: Bronchitis Primary Care Physician: BENTLEY LUCERO CNP Provider Information Primary Provider: Kristopher Clemons DO [employer] Marker:None The exam and treatment you received in the Emergency Department were for an urgent problem and are not intended as complete care. It is important that you follow up with a doctor, nurse practitioner, or physician?s first assistant manager for ongoing care. If your symptoms become [...] Address: When: BENTLEY LUCERO [address] [place] [address] Business (1) In 3 days [...] opioids can be used to help relieve cjskenja-pv-rmuwvz pain and are often prescribed following a [...] may be (more content not included)... Normal [facility] XR Chest 2 Viewson XR Chest [...] MD, V. Transcribed by: MARÍA ELENA Technologist: [facility] Normal [facility] Covid-19 PCR (CVDTBH)on SARS-CoV-2 (COVID-19) RNA PARI+probe Ql (Unsp spec) Not detected Normal NOT DETECTED [facility] Comment on above: Result Comment: When diagnostic [...] for this test is supported by the [place] of Health and Human Service's declaration that [...] used). Performed By: #### C VDTBH #### [facility] [address] [place] [address] Dr. Samm Hurtado ER URINE PROFILEon 2 Bilirubin Ql (U) Negative Normal NEGATIVE [facility] Comment on above: Performed By: #### U MICRO, PREGU, ERUR #### [facility] [address] [place] [address] Dr. Samm Hurtado Clarity (U) CLEAR Normal CLEAR [facility] Comment on above: Performed By: #### U MICRO, PREGU, ERUR #### [facility] [address] [place] [address] Dr. Samm Hurtado Color (U) YELLOW Normal YELLOW [facility] Comment on above: Performed By: #### U MICRO, PREGU, ERUR #### [facility] [address] [place] [address] Dr. Samm MENDEZD A micrscopic examination will be performed if indicated. Normal [facility] Comment on above: Performed By: #### U MICRO, PREGU, ERUR #### [facility] [address] [place] [address] Dr. Samm Hurtado Glucose Ql (U) Negative Normal NEGATIVE [facility] Comment on above: Performed By: #### U MICRO, PREGU, ERUR #### [facility] [address] [place] [address] Dr. Samm Hurtado Hemoglobin Ql (U) LARGE Abnormal NEGATIVE [facility] Comment on above: Performed By: #### U MICRO, PREGU, ERUR #### [facility] [address] [place] [address] [address] Samm Hurtado Ketones Ql (U) 15 mg/dl Abnormal NEGATIVE [facility] Comment on above: Performed By: #### U MICRO, PREGU, ERUR #### [facility] [address] [place] [address] [address] Samm Hurtado LEUKOCYTES Negative Normal NEGATIVE [facility] Comment on above: Performed By: #### U MICRO, PREGU, ERUR #### [facility] [address] [place] [address] [address] Samm Hurtado Nitrite Ql (U) Negative Normal NEGATIVE [facility] Comment on above: Performed By: #### U MICRO, PREGU, ERUR #### [facility] [address] [place] [address] Dr. Samm Hurtado pH (U) 5.5 [pH] Normal 5-9 [facility] Comment on above: Performed By: #### U MICRO, PREGU, ERUR #### [facility] [address] [place] [address] Dr. Samm Hurtado SPEC GRAVITY >=1.030 Abnormal 1.005-<=1.02 5 [facility] Comment on above: Performed By: #### U MICRO, PREGU, ERUR #### [facility] [address] [place] [address] Dr. Samm Hurtado UA PROTEIN Negative Normal NEGATIVE/ TRACE [facility] Comment on above: Performed By: #### U MICRO, PREGU, ERUR #### [facility] [address] [place] [address] [address] Samm Hurtado UR MICRO IND INDICATED Normal [facility] Comment on above: Performed By: #### U MICRO, PREGU, ERUR #### [facility] [address] [place] [address] Dr. Samm Hurtado Urobilinogen Qn (U) 0.2 {Edwin'U}/dL Normal 0.2 - 1. 0 [facility] Comment on above: Performed By: #### U MICRO, PREGU, ERUR #### [facility] [address] [place] [address] Dr. Samm Hurtado INFLUENZA A AND B AGon 08-20 INFLUANEGH SEE BELOW Normal [facility] Comment on above: Result Comment: Nega tive for Flu A protein angiten. Infection due to Flu A cannot be ruled out. Flu A angiten in the sample may be below the detection limit of the test. Performed By: #### I NFLUAB #### [facility] [address] [place] [address] Dr. Samm Hurtado INFLUBNEGH SEE BELOW Normal [facility] Comment on above: Result Comment: Nega tive for Flu B protein antigen. Infection due to Flu B cannot be ruled out. Flu B antigen in the sample may be below the detection limit of the test. Performed By: #### I NFLUAB #### [facility] [address] [place] [address] Dr. Samm Hurtado INFLUENZA A AG Negative Normal NEGATIVE SEE COMMENT [facility] Comment on above: Performed By: #### I NFLUAB #### [facility] [address] [place] [address] Dr. Samm Hurtado INFLUENZA B AG Negative Normal NEGATIVE SEE COMMENT [facility] Comment on above: Performed By: #### I NFLUAB #### [facility] [address] [place] [address] Dr. Samm Hurtado INTERNAL CONTROLS Within Normal Limits Normal Wi thin Normal Limits [facility] Comment on above: Performed By: #### I NFLUAB #### [facility] [address] [place] [address] Dr. Samm Hurtado URon 08-20-2022 , QUAL Negative Normal NEGATIVE [facility] Comment on above: Performed By: #### U MICRO, PREGU, ERUR #### [facility] [address] [place] [address] Dr. Samm Hurtado URINE MICROSCOPIC ONLYon BACTERIA TRACE Abnormal NONE SEEN [facility] Comment on above: Performed By: #### U MICRO, PREGU, ERUR ####[facility] [id number] [place] [address]Dr. Samm Hurtado Bacteria identified Cx Nom (U) NOT INDICATED Normal [facility] Comment on above: Performed By: #### U MICRO, PREGU, ERUR ####[facility] [id number] [place] [address]Dr. Samm Hurtado CAST NONE SEEN Normal NONE SEEN [facility] Comment on above: Performed By: #### U MICRO, PREGU, ERUR ####[facility] [id number] [place] [address]Dr. Samm Hurtado Crystals LM Nom (Urine sed) NONE SEEN Normal NONE SEEN [facility] Comment on above: Performed By: #### U MICRO, PREGU, ERUR ####[facility] [id number] [place] [address]Dr. Samm Hurtado Epithelial cells LM Ql (Urine sed) RARE Normal NONE SEEN /RARE [facility] Comment on above: Performed By: #### U MICRO, PREGU, ERUR ####[facility] [id number] [place] [address]Dr. Samm Hurtado MUCOUS NONE SEEN Normal NONE SEEN [facility] Comment on above: Performed By: #### U MICRO, PREGU, ERUR ####[facility] [id number] [place] [address]Dr. Samm Hurtado RBC 5-10 Abnormal 0-2 [facility] Comment on above: Performed By: #### U MICRO, PREGU, ERUR ####[facility] [id number] [place] [address]Dr. Samm Hurtado WBC NONE SEEN Normal NONE SEEN [facility] Comment on above: Performed By: #### U MICRO, PREGU, ERUR ####[facility] [id number] [place] [address]Dr. Samm Hurtado Coding Summary.on 06-24-2022 Coding Summary. CD:[id number] Gh 0bWw+PGhlYWQ+KT4QKQMfV 43rzOPoxX6BJ9jRIK3HJFO GJHXBRB9WJC4ufQD9PSgcG 2VybiAv ZlwawNAqPZ51ASd8XOL1yF zqOOdzzU2saWXkO2y1NgLi PP83rP11DPegXCUvJkV1Tj ZpbjsgbWFy H1pdApHxvOSkBcu+PHRhYm xlIHdpZHRoPScxMDAlJyBz gSdcEI2eRw2lAWUhKCYdzZ xhcHNlOiBj b0etKFQxDWstOP2djUzpH1 OoyOO1BJIig8s7Lu30lXN+ IPYuLLC0mVooXVibl957Qh Ayg4etZUX0 jIUhHDgbKPR4B36eu8L7OY QgUWNtCWI5eCN9tR6kgUgo vaosS5DihAJnNoB6PLQ9tK XkyV1jpTlj oyfbbY4rKab+A40BYG0ZOT FGZO7JMxu4C1TgMufvoBM+ IV77QPOdWH71vLTtqFQry0 amcJu0DzJz EDWcKQC4rAogIBtpq3RhLD MnS28scEAuz7Y0EVKekNqr nGMrRyJyvSL9uC6aHJrdam obc2wifvtj Tglmy8tloj32zI18B13oQX nbCTEaQSY5KHImDTDfwDfb eh3xfT7xZb8+WWyad3sgb3 quwPt9QkIn OCIqusWhdDucATY4y5BqHi 99T5TmuXgtn4IdPdr4wv20 eYXfv4P9lSK3VPitHODwkK 8aIWwmZaE3 KZXwTeJkkR47xTIfMNyrWn 5jxSpnyOnwAG7gKDJhmltb ZUAmqI0jJHCcgDBbgXhfFR 4wNTBpbjtm l722TzErYXB0PRUetMCgF7 CanU7mRjIuHBXdTPYcN2Uj nXBbCDcgD914ECemBjK1CE ItiyWmN0Xf LJGqwNyuFwV0l6I7Rr7Ko0 HglkafSDY1QJrmVFThKaNz MvBgOoA3N6CuSfq4YSUfsU dfDX6cU6Hv BRZewqwoztnrdLE7ZAIiVG WzxQ57sQQbMCovZo5qk6P1 l442VVZfVMCfjG44Su7ujL ogMTBwdCBU fF4lhkzce0eentpoFoTkZE YmMBp3ECo6FMEknKwmZmBm TIS4IlS3GRV8hEPmjW4mlS bdiacyeC7c Oyc+R70ssW6uFZE0CLY8dr toQROwsqQaNG88IE57U8Zq PjwvdGFibGU+PGRpdiBzdH kmRO3fTjSu o0msc2DgTVfbZ1DuGWKoBC bhStb8CCBjFTE1kLV3dS5u EOUqTXsnb1Q8lDC5I1Fupt Drcp1zl0lr YZRfSRtuT74guXXdc1U7BM VqcDH8ZOAxtRhoMzAvcY90 Oyc+AOHouKgmg7SlBrrkl2 xwd4xktPl5 BiFdGCBttxOlmAcxFIH4g1 EcHw15T32bTMliMZIwVVZn JKLxKORihOtvip3vhX5nLh 8+PGNvbCB3 wTI1iF9yBLLnCmJ4MUnzC8 01OxAvuSUsUhbff0soa6nj zVj5SbPeFFDgsvFewNjyYW O0v3NzZq26 D65mPAgvSCBaVDKfJYSfOJ YukKaefg9tuJ4uPi9+PC9j n0lkbx75xF01yYP+PHRkIH W6bCqsQAmk GRUryS0bVNjyYwJ2UVZmWt EqxY71kXKiRBcdAp6fjOfl nSgsTN5qLWOvtpxhc080Ut Szz7yoYBRn pWSmADxmNMS2Y08bf3P3EX CkKPWqMPF8oVD0kV5xkDvf bjogbGVmdDsgdmVydGljYW xnSYcdN607 IHRvcDsnPlBhdGllbnQgTm UvAJd6B6BwHcj5UKUutEab WB4enFLpKQrwDa9ziGvevT ysTQ7zSPIf gchef506BpYax0klTDZgpL YhDRvbFON8N86gt2R8PBTi AUDoMMG3oVT3iY3ucDbhmb ogbGVmdDsg fwKuyWsiZToyLMmjE454CA RvcDsnPkJpcnRoIERhdGU6 PW15II88iFZre1G6lID2F7 BhZGRpbmct tegquDG4MUUzXHZbrA86Fi 6hjCrvFw1yHQOnOJQ8CFKc cYGkS8HuxF1nUxGeMBRlHW OnW0NqcQXo FKecF626NDbgVgP7BWXbot NkV7FlBMQcdBxyUxZ6j7Q5 Li5DY7Y6JR02SZ99eHMvq7 J1tUO8P6Lu RLQfpgdsyfdzzRX9FCDgHM HrhF66Pp4dpDrgMg0eIMZv QES3LFBzrDMvQ9OvwF8dXt AjMDAwMDAw Y8CgeSHpXTykB696QBmmOv I8TEKpybLaW8RbSSEcvQzz TyZ3b1S2Hz3MVBn4LY29DO 86iUVcj4Z0 pVM2U0DpVDVsaxcjdxvujE P1EWUgCPXclY67Ax5jhQdk Vl6rWRUoCIW3XKXuxGDyO7 IfbP9yZzOf TUPsOJRjF8GudPViQXvqA1 51KHcdApN3GYCpabVvR8Gq KYLabFhhAjN8k0J6Aj3OMO VvPE13GLP3 jXJ2DR47GH57B6OgVlkhbZ FibGU+PHRhYmxlIHdpZHRo YXoxGUZsCzGkqBuvPR1gJz 9yZGVyLWNv jWcozYHiBdTtm9clHNNtYX heKG0iaHjpK0YxqHV4IBYs a8o6Nx70O63mP4XkfNM+PG DnxLY9wTC7 vB8pHtYmKyO5RHybD361Lp NakNSrXqagy7zsc2yfkKh9 YlY8JQAbhxDruOrcNUB8k5 ZgJk65U05q IHdpZHRoPSIxNSUiIHZhbG hiry6mzD5gQa1+PGNvbCB3 jTR0uD1tEjPlKfM8OAyrS1 49InRvcCIv Xgyad2hdd7nhyIl6ToXoES TqmrAaqFuhYGA5c9HnCk72 Y5HhrVdoc2OtTaa4ej37gF Gvz7E4uHR0 O9QhNIHlpoloxTLuyYziYM 7nVMBexfawFDRieG2uLJYz P2a5XoXpHwC7IDfdZ0Nejj G0EOQxuTIa IParETC8W37uw9L0GNPrWI XlFZO1vVV9pN1asXzzwhdn bGVmdDsgdmVydGljYWwtYW knX986GPOu wYpoRVSntE1uQDYkeWBdpM hnCA4tKRScbnxbEayAKZkt IEpBREEgTTwvdGQ+PHRkIH U8kYidPAtk DOGpdG2nGOGxA1d0BaWqNz S2YQckM6WnSZDuzecqIw42 dE9zRiXfDaU2VHiuX9Qdan O4LVBexJZx VEztYPX8G85mi2K2DTSuEH QrDUH4wTK5zT2xuQjiqynf bGVmdDsgdmVydGljYWwtYW rkD611LVUx hNahCxM4ZmP9TnZ7WGD6Y9 BdIog0DWOddJlnDJ3olSRq DVmaFf7cyDgdwFllDR0iEX BpbjtwYWRk iW2xRWKfeLVzwTokMJ0mOZ Ksvjowh688PcUqLYZ7ZGCg iILdR8GxuW5uHwWlJKMeBA ZkT2IbvKHo LPrlI117SJwxIcJ2RECrwo StI4AqYIXexPyvXaG8b6F9 Ej4yGIQQOUOhshdspGP+PH MxMJM1vZgj GBuaBYMpzR2dNZRgW0e3Kz VjJuV7BOclM3IeDQMqddyo Km31fQ2wLeGiCxC6IZvsF6 NcvwJ4KWNp sWFmOOiyXQC3K46uf9U6OP ZoVXGlSDM5tUO6jW0knTgs bjogbGVmdDsgdmVydGljYW kaLUxxF420 IHRvcDsnPkZlbWFsZTwvdG Q+XJWlZXK4aSiyNFnbXQWk gK7oHHBwO3e4JmHrZsS3RA mzP8AaYMOe psngVs09wJ6zPgEoSuX3YE yzQ4HvulB2GGRevHGwQSlq CWP3D09bl0N1HBUjQGHtNB K3cBE8tS2v bGlnbjogbGVmdDsgdmVydG tjPEtbNWwxH782UIYgbVsv FxZjSHPbVG0lkXchhDX+PC 11wf36O7Of PkuwMlz6NXEbILQ1dPT4uQ 3pNWHvNGldx0U2xWJ7O2Gb tbTgpf7bf5npBUOrJTelO8 5rfGXeq7M9 FUAgxEO9GZVsyFikBgHfmL 93Oyc+ALLvsStoa4MvUhkn q7mgf6clwYc2UvEuRDTain FsaWduPSJ0 n9XvXx02K70pZSpwAVDeJW ReAPYuATWmnHwykw8fpX2y Ii8+QLPgbUZ0aKK5aP5dFm HeQyX6FTfg D813LkXfdYDuBzxly6lzp3 axuWp7YzYpAOHbcjWujLmk YFZ9u8NpTr59I2YawWsnc3 FvWeq2st71 rLUdg3Q6pGW9S5XlNAMhfh vkzCAkoNqfJQ5xSPJtnpxc GTFrtD9gEOCbU7u3ArBqAf K3MRquO1Dh anZ6JKDczPKhBQNpcDJDoS 4kfmfwz3lgxpafUiFjGHYk SXf5VJb1AALfqDfaNdBhQA E5KtZ2IDB3 nUIrhY0htPbbzbmqvU5lNm c+GNn1i3gdcPWvUV8eyHD3 OB87OB32fDDco1Z7tHK1U6 BhZGRpbmct wisrkWN5CKFiWNQhmM30Cx 7ipXpyFf5dEMZfUUZ7GYMs gQEwU4IfwY6aWmIyVMGdAI FhB2WirSYc VSlrW307MVwlXcV2GMLevz QsC4IlRQNogPybTaV1w6F3 Jj2QSP58IS09CC94xIFqt1 V1dGR7Q4Li SILfzuzyvtqvqXL5WWRaCB IfuG06Jw7cvHmcZl2dVDLb CGU8UGDpiJPzR2PgmY8mGe AjMDAwMDAw P1IhaRQtDKhaD303PEbiEc G6YDVoquEgP6XlBFSwyVnt OpM3r3R8Dv4CCm28HV99KQ 13hIXqa7Q4 xRE5P9DhEFGkdpumukpihG A5PRPaUWDgqD79Pm2kzHyw Hm9gECVqYZG9CCZyqRAnL5 FieJ3yRqSw BCRyNRSzK4WrlVSmDRrgN7 49IOstXpU9WJJwrhCrD1Vk KAVmnDauArH3c2R6Ae0SPO rzuit9T3Gr PjwvdHI+KH92DMMaNK42eC ZutAEjf2wgbPe9PnJbMMBp UGB4gSunFSgfg3MmWXBqZ6 2xtMWdf7A9 IGNv (more content not included)... Normal [facility] Coding Summary. CD:[id number]:[id number] Gh 0bWw+PGhlYWQ+LF2ZJWLoD 39iqSJtiY9DD2fUXR7VAWZ PKTNTAD6IVV8baZL1PBonW 2VybiAv ZcuapUGoUP61PIw9RRY5iH abYZynsL2ilOIcJ0d9ExXb FL85vY57QSgmIREiQpK4Rb ZpbjsgbWFy O7hyRoUzlUMoCvq+PHRhYm xlIHdpZHRoPScxMDAlJyBz gDxdKU5gQe2xRBGrMFIaqM xhcHNlOiBj m4oxZTWxFWplWR6yjLogM2 HtxZI7PCWmc5r2Ep04sPU+ FEIkMWW9gCuqJCplv644Oc Sfm5kpGNZ9 vVEbBSlyTDP7W20sf8B8ED RfXNCsSAD4oMU4tS1ypKoz afduY5WdzQXpEzP4GVG7jZ UiuO6ymUtb xwqtxZ0cWlz+D06STU6BHX IBWH8JJqi8L0NqOxypgAC+ XB55NVXwMB04iLIopHUnb6 yzkYe1FcSk HWRoQJK7xQzhOVbul2HjIN KdL11jmGRpk7T3XECoeGta dPFcYwTyeVW5uM9lTKjgxf isi1bicynb Youtf9aprd64gV99M37zIZ vaSMBrVGX0ERKpPTZxfNmq yu1fvY4kPr9+QJspl1cld5 jttAv4CrEi CUAcjzUkxFbbXHU5e4JwMa 28U0BxcSwux1UpDtu5es02 uFIek0W9nAU9FXccTIHohW 6cILkbQnM8 PVCaJsGcgK99wNYuCImvKs 3ueHstlVvcFI5uOUCooemd ZKNwkI1hJEHrmBAbiCabWU 4wNTBpbjtm a026JgPzYXP3PICtaQTeU3 QrcZ0aRlApOMLsPHBvA4Sp vLSgYYlwU004BAccLiD5KP BptjUqE1Vu CDOkeYowCyG3t0U6Hx9Bb0 UhywunPFL0FGioYSBrHiDl WyBkYnX1A6OsIoc1TPAstO jvSY9vZ7Xk DSDhfgpfzmyhnGM3PIXePN MoqH97fRXtGTkkGf2dl4O3 f250BJRpEWEhcG30Pc3meZ ogMTBwdCBU vB8nogsze6jkcsbzCxEuZQ QqODp3BBq8MKIjpQfiGaFh UHF6OdV3PEX5kNBdbB5pfL ifvxhshH2y Oyc+B79usZ5eRNR2WCU9ve kjKGWtqaJhWG97AM60M0Sg PjwvdGFibGU+PGRpdiBzdH gnYH1kUdSw b1akk0IrVSmkO1HgEIEaVT nmPqk6UUOeFNV3fRN2zJ0u NOUqMObas7E5yPQ1T3Oype Rbhq6yd5nq YVZmJMlhZ50ejAEkp8Q6ZS ZskGL3ODJuqHihEfGlfG51 Oyc+THZosFsth9SfZsrtp5 vxj0xhfBw9 EhYzKTHeszMmvSdnJNO4j9 QfIq68O45fTJkzQBVbEYHt JFTiXAJfvGjjiu7bgQ9kQk 8+PGNvbCB3 bYA2hK2pYOQwVsB6PJuwN0 29YrRplAPbNjlhu4yaa2vt nUo4ZtLqVISzoePgyOlyBC N9n1SsAb98 I25gXKssPUEeGLWuXIHrCB AojGlunj8beC0mMw2+PC9j h1xdyq27bD50bQS+PHRkIH S0yHkaIYxr ERLslS4eSHubSdT8VKNfPr VnwF16uVFlDCkuJg0atFzz eGcvMU7rQFAlgqrkq153Pv Suw2gdEBHj xEYmQTdyTBM2O05jw3J8TG AbACQcMTY1yKB7iZ4ylFpy bjogbGVmdDsgdmVydGljYW ppYGbhU305 IHRvcDsnPlBhdGllbnQgTm LnNKs0R9XaEqx7YIGtnUnv AX8qiQMgCEwwId8ydNxogX ygOA3rGWRe omqdr320VoFnp9phGXCoaG OxUXsyCFN2J08kn9H3CPTs SPMcPNJ9eFF7jB8lmWtdbv ogbGVmdDsg ryQwwWfdSVzzPDwcO606JH RvcDsnPkJpcnRoIERhdGU6 SU97JC81jCSke7C1jDT4N6 BhZGRpbmct dnkpbEM0CCEnEEGygT60Sl 9exXuoRo3sYLDaATH0QWQs oHMcA4UzaU6uHjCsOPTkOQ TuX2PxyGIc WFvjW971FVksLsU2KRFeuz HsN5BiCAKqtWfjPkO6x4V3 Eb0HA7T8ES74OI75zDPyg6 U6kOT9Y7At MHFyzbehdlpvaKP5HLJvEO PzqC21Xf1bxRovIc5eIYPv BES7IMLfhNOnF9FmvB0vCw AjMDAwMDAw F6EsaYRdAMluG622LQpdYi S2LAIvsjEgO8SaQOVwhZcy LxK4f8H4Yt2LILj3YN79XD 61qWYvq1V7 kME5R1WkKDDtqarpejmumH V8QMHyMSEinI81Ry9mzMbx Hn7qELKdSVG4UNRooGDuT3 DcbU1vLlVk PKRsCDBdF5PlvKFnKPtfW5 67ZCplJyJ9SAPszmCsN9Sb CMObdIuhXqN1x6O8Zk5DUF OsZQ90RJI3 lBA5GY28DA15L2NkFulolW FibGU+PHRhYmxlIHdpZHRo JSwxXUTvFxXthRthFB4hFx 9yZGVyLWNv bVyknVJeTtZzq2pyHOEyYA hbCR1giLitF1YhfUQ2WHAe d7i6Xs29J92xY0CmvGB+PG WuzQT9wBT3 qR1pVxWgKlI8SLilM540Ht BynPXeKroic1sks5mfbKz1 RrZ6PQAozbNneQccTHY6e0 AvSr69K13n IHdpZHRoPSIxNSUiIHZhbG jydy0erQ5oMb7+PGNvbCB3 wOF9zH9lDiWeIcB7PRckB6 49InRvcCIv Dbden9tyg1wdrVk4LqSkYZ DigyUowLzdRLX9p8AnSk57 I1WhuCect3WdGvf7xh37pQ Mkq7W5uMH9 K6YpQSXrxkyzhIUtcRcwFD 0kEXWdrrrhMSWpmH4mNYSs N6q2LpQyGvS1YIdlN6Ifus K4FTAphHXp EGsyFFN5J45id1N5MFUfEQ KfSCE8lWZ3sV8msVqizgzm bGVmdDsgdmVydGljYWwtYW xrY468KGRe yAkoSGHtpT5gVQXogQKcpM jxNZ4jKESfegttIzfXOEcv IEpBREEgTTwvdGQ+PHRkIH N7wOlaURxx FEYbkK1aNCCcS8v1BcNqMz T9GFblR9ZvQQZnvllnLz68 bS8fMjZfShE6DEuwE1Ujck G8RDVbrYBc WVwaAZL3E46ip6X9KGCkJD WbTER4xLF4nY4ejHxdmtpr bGVmdDsgdmVydGljYWwtYW zdA563QAGm yGeqJoY4NhN3YgU8OHF1V6 DkLuq7AOAvsVbjTB4szVNh LPqyMy7daNkxqSfqAI0mNK BpbjtwYWRk tD8dWWOziHXnxJfvLY8gHN Ntgxbpv946PaNhZXO1ZQNh xBAmL7CrlE0rMeSsHAXlYY FlA7SucDQl PQtoD795DRzsItI8HODrwj ApL1LgUCLejRrjFiU2w8O1 Qj4lLVUWTNXlswsqcAJ+PH SbQJU7lXxn FQetGIYejO0gSKIkX1m0Qs HlXbD9LJthL9GwJQEyuexz Qi53lB9yDoHqIxZ8ZFhnW6 NidqR5DGFp gWKvWXfdCBS4H00zj2V0QZ PcDXGuIDR1rON7eZ5qfZnc bjogbGVmdDsgdmVydGljYW hkXWaaC329 IHRvcDsnPkZlbWFsZTwvdG Q+XMEeBMP4qLlmYYxzRMVe kY5sDIIkH1p7CpJdWnL6WD bsY1RaDOQe uqsjPw31bR9kMjHgWnL8PR ojY3PfupO6SRItyYNyXSvy MVJ2Q78ua0G1NWUhITVwQQ N1hHF1yW0i bGlnbjogbGVmdDsgdmVydG gpERkqTFrtG285OXCwiYzl SoWmAVDbRD2hrQnutMU+PC 35er65F8It MpirJyq1GBSaYNN4iVE4dV 3cLICqDVbsu4K8jRR6R9Yt oyEjuq8rv6tsXXSnOBarB9 2tnCWrm4B0 EDBarKZ3DDQccAqnXjLhlO 93Oyc+CKUehUbkn6RuNvuj c5gkx6ymxMh6IqUzDMXgyy FsaWduPSJ0 s6GcGk48X07nOFrxTFSqAS VuXYExABPwaTuzlr7ezP4a Ii8+LEChsTI3gGY4nK1hCc SyMiO3ZOat Q300FtUtqQMtPlobu9xsk1 yccVu5GpVcIGRifaYxbIvb AKZ5d5EvKb57Y6NzhPwlk0 WtKyb0is51 zNIzp6D8kIO7A0UpQDXlao kujCTjgRgkCT9fHSPlxfto XHEekU2yOQFvF8r1DtZmGv G3ZOxnE7Hx jfT9DNSykYHkXSItyAUMoS 9bftwii6llrrmuCzKiIVMx DXb1LCd2WTVrsKveXyCeOQ B3YjC0TCA0 yGAgpP2hgOijahskvM8nXn c+JHe0b0ozxFArUF4owZB4 IZ53NL10lAMap0S4mLP3W6 BhZGRpbmct zeogsWP6VLWtIUHvpP00Ai 3kjNgqMt1tPXSaMQM7PQCr oWUmE3IxeO7aWfCmCOBnRX LgB7BguYVc URjpJ243NObeYfO9BMFefy AzV8CyPLTtuXoyOnB3z3C3 Qo3BHY55JP83OE31dQFbe8 J3hTU3X0Du UYQfwzxwhytucWP5UXQuEB YtcA26Wb4ixNcpFi7dDIXe GHL5MNGquXXcL9YgsH4zVn AjMDAwMDAw H2NitAUpIMhyS323NXeeDz M5BVEokdIhV3KnHCLatNio QoD3p5M8Nb5XAe48YN59KA 95gUXpb6O3 bSV8X2TpFZWyoepxhmcnuI H6VTYiLBByhG10Lr6uhLvk Ba8tNRLqWEW5WFVefZKaR1 ObkU8lQvAe IESwSCGiV2ApfYTbUPtiS1 38ZWxjYyB7TQEbqxUnG0Bl AGIwbGbnFdM1r2S1Cp3YNT litwg0K9Yv PjwvdHI+MT50QZIeCR70lN JxvPUld6bpeHv7LeRrADMx JBE9oNiiFIpji4RhWGDsV6 9rlYUdg6K0 IGNv (more content not included)... Normal [facility] Coding Summary. CD:[id number] Gh 0bWw+PGhlYWQ+IO1GIKZxZ 85nvPKxlX7QV0nQYC7MWIX QKXOCKK1JEP9ivBS9LXvbP 2VybiAv OlpaeKNwPX99XWq1XKG6zE dtOWnriE2cmDXqE1s9PpDw AL85xA93NYyvLFZvKpR7Iv ZpbjsgbWFy N9nrUuQxnBFlGzp+PHRhYm xlIHdpZHRoPScxMDAlJyBz sRhsDP5lDv2cZNJhINDibL xhcHNlOiBj l7saZTLwVLkqXS4fkVniD9 PujCX4FYUik1b3Eh38rOQ+ ZZCdXYY0vKroXWnqi833Gs Hns6ajIAU9 nVZdOPghBQG6M31qd6M6HD JzPZZjZOU2hJP2rU4faMvi dxbvK4RujEZpXoE1KUH5bR QetN9wqBdy emkthU3jZhd+G54RCZ7BVM IKRQ9BWjz6G9KcRzxctNJ+ SM81CUMiJL57wKOmsNAtz2 ncpAy1OrLr QGMsMQT7uSnaMGdgp0OjSZ StR60weQFhd2A4MSRbkMuj tTNePcFteBZ3dP0iLGuuee ygu7lsfpfd Vohmu4clst65dF25E98qEW mtWOMpFYJ3QDAoPDXeiJco pa2pzR3kHx9+XYvnm8jef5 rxnWt3NnLa UGMefwNjuMrfILU8s9BsFc 92U8NtqWfrv9HmWqp6kf51 bMPmc8W1lXY9ACczERLqsB 9yFXowHxV2 VVHhYzJewL51eHSoMJplUe 5ufAtevDbsBS4wEWRafrxa ZXQxkQ5oYQQakASxjDyxVK 4wNTBpbjtm e702WiOwYUS3HVOqaQItP6 PlgS2cSkPhLKSeLESdI7Le iCCjOSmeT100QUmwPtA1KX MulhVsQ3Hg ACBgmHzrFaR5h4J6Nn8Ke9 QoonllVSO9PAwtCRGjAuQg DpCfNzA3K7CdKqq6GZBngN ncOG7oC7Ug GARgnktrydydzTV6DWDwGP GxoG77wYNcZSibEl7ld0T7 f582LOSsOVNxaU90Vw5nrY ogMTBwdCBU bQ5cmrtuz3eynkoyRlRxXJ SiXCs7FDr6UYEsaFesZxRo GDC5CwQ0MNJ7xYMcuB4kxI hfhmqopS2c Oyc+I71gdU2bCNT4ERI2jn frKXTrbfGtTB95NG42H6Uc PjwvdGFibGU+PGRpdiBzdH paPN7fTsGh y9dls1EyJWxdG3DiEFGhHN gdIpx1NSNkRFK5sKW4jZ6d WCJgNPfch6T7yTB6B6Seft Ycsy0wu9uf IDVoQObgC78pmLJiy5P3SE NnpNW8VKFxcMezPrWghJ10 Oyc+ZEIgbPjat0IiZtdtp9 xdo2nxiHo0 VkJrORKfsiPnqRstVRZ0k3 RtIi17W12cSMnoEVOiLQKn KHXvVIXecEtded0cxO9tHs 8+PGNvbCB3 kIA2dI9hNOClYhS6TOhsH1 92OgRylVLjGkble5rnj5wm hCv6AyUjFTCstsNpeQttHX D9q8OnHc34 E09sBDykKXZwWJTcRGGlOV VqvOebar9toL7qZh2+PC9j m4kplp96xL55wRH+PHRkIH T1sHbaLHyo WDWmmR0yCYjkOpW8VFGpJj LxwG10hYPiLUopPd3zfBho rQmuSC6sCKHwrbltu263By Uhw9hbOSMp zXNvZFuzKLN5W41hh3W4IE KeRJYwMVX0iKS3tL4rhHlp bjogbGVmdDsgdmVydGljYW cpCUxhI816 IHRvcDsnPlBhdGllbnQgTm IiSJu9Y8ExAga4LRKdtXzq ZI1mhTQtMNlpOv3jhFfmqI vbSS0aESHm cyhte678IpOkr1oeKZYdaQ BpKXlbSIH2H10wz7M9ILGp TUOhUOD4dPR9sP7bdZvrpo ogbGVmdDsg ytWkgVczBAmaZZvqL322QX RvcDsnPkJpcnRoIERhdGU6 UD93AA92gVCjo8R3bAI3Q2 BhZGRpbmct gzvzfWU9CRXtIGWplA10Xc 8zhWazHa2oNPRyPGB9DQIb lIDdG5NjfQ9lMnQxCWThSN HnZ7NukBJr PCqcR628JNboLyQ7EOTfyv YmX2NwKXIoyMycXiP1v8C8 Lz9EB1Z8AS12AM54mKFlu1 F6lHQ7W4Xy GXJgbgzubmnahPB8VDWuDJ UpnH54Fn3frVjeKp3mLMDf EUQ7INHczLOpC4UsgM5hZp AjMDAwMDAw R8WvoSXsJWmvG350DQqbHp E4LGSmvzBmM5JnVVAbfGuo QeZ8e8L4Nx3KWAw7QZ36KY 48sDVpk7T1 xKG3A9VvQPKodaqqxibbnR X0HLUmDISoxF22Zy4ltOdh Lv0dCKYiNYZ6QKOzgXWoW7 OmkQ3wBxZp DQTjJHHmE7DnoOGnNJieI3 77SSjgHmA6ODFpwwLdJ4Hs KSUnvUalJaY3u4P4Pu0JFJ TbLZ44MBX9 uXO9WI33OW02V8CxXreoyP FibGU+PHRhYmxlIHdpZHRo XQylZGTlKkKvqKhtGF4vHm 9yZGVyLWNv tHrxjOIlGxUts6lpGDIwAF ddXJ4ecIgpB1LvzDS0BQDc r6s9Mr20V15pZ9CerUI+PG ZyrDU2pXV3 jP7fTvHcLrG7FQfwV360Up BbeWPiWfwke4wsg2pgcNm3 TpD6VJHslwUcmYnsBUU5k9 GgDu06I13w IHdpZHRoPSIxNSUiIHZhbG xxod4tgV9rZx9+PGNvbCB3 lOL9pN7oFoDmNpV3KYvnM8 49InRvcCIv Jznzi0shf7hgsZs2OeJvYS BkdpJhvGzyVKV5n2ToHn87 N8YobUthv0IcXjb5qk48hS Bay9O1tFY4 R5PcDFPktbeatQJmbJaoMW 2mIKPyyvopXYQcpI0iUNMu Z3k3CyBsMnK7AJwoB1Bbhe H1XMUrbUBb OFtgCTM4T76ky9C3QJPqDR RyUIH8pAL4sL3gjTkwukit bGVmdDsgdmVydGljYWwtYW gpM618DYDa gSpuNQEofP8qNVKtrKUdgG fnYH1pEVKamzygMquSXArn IEpBREEgTTwvdGQ+PHRkIH Q2mXiwGXbb XTLupT0aSIFzV8w1TeIzEo A5MLzkK3AzHBUhvswvBq31 wD1sIoGtCgK7ZIasR8Syld P4GVWwzAGc PFveRHZ8L85ii4X1ZSKpEH LsRSX7xPG5dT9ddGexnwjs bGVmdDsgdmVydGljYWwtYW cqL815EFHs nYylBxI7HdK4TjP1EQX9N2 YlJvh0VYSvhEmlTE6xaKGb CEpeQn1grCgeaGznEQ7iXX BpbjtwYWRk rQ6zKHJtnAIgsAvsKR9nZB Ygbqasj865TgAtXIQ7XEMh hFFvY6QywM3vGqSpZIQqDD WzC8JzvWBg ZPdvT120MYdgHkJ6CHMhvo MrZ8XhDMQnrBaoOmY1e5E4 Cn6oVPESCGDcjudwzNX+PH JmCUQ5pOvl VAplCQUjuV9aFWRjU3d3Hv ZfCiL5ZLjaE9KdKSVbiagf Zg72bI0cOxMdTiK7QAavZ9 BwghM2MOIl fHSvSXxfKKM5P39xr5Q9WV CeBJJhJCY6kIZ4jM2krDhs bjogbGVmdDsgdmVydGljYW kvHQemV023 IHRvcDsnPkZlbWFsZTwvdG Q+DBMdXUA2mNkkHRtzHXRm nZ6rANMpB7t1QtNwZjV0AH vkI4VxDQHe wgjhSm52mO5xMsHgQaD2EP ckB9CjogK8VCArnKMfTWeo XME2G11tc7K4EPKeWNJjGE W0fZQ3vO1d bGlnbjogbGVmdDsgdmVydG swLUutKJhoC672BOFolWif BdCnVYNlUC4stZoafEP+PC 74ds87D0Yj CnohDzs4IQSoEGU2hKG3dO 5wAUUkYStko4B2sHM4P5Ac pgZfoa6yd1sjYICsGNpuW0 7fhJXxc7Z6 LGJbiYT5ICJpdHkgArXqzC 93Oyc+FYFccTteq3LvIicr b6nhu8tjdZf6RdGuNGNofa FsaWduPSJ0 g8HkZm12Z65rTBjaGSAdYK TwCFOuDLPvzUakke7hsU7i Ii8+BUTdpIR0cRB3oZ7yKr XvCaE4VJal H097KcGgyKOmZmibh6cob9 pkqPr0XrCzOQDlmnRcnDrr CTW2d1NmBz49E8LcfFemt0 FcFbu5fk98 oKTba2P3gHE7T0TuJBNfyn zzyBXoiCypZX1rIPNpbqqq KKNdqD0qKTUaP6t8QfHnVn W5DKbhR6Kf trV1FLJtlMThYEHujJKUgO 9eydhfi5ackjrzLvRySHPm GHj8EPf9KGTkcBzmWaDiGS Q5VrF3IDD2 xNBrmA8taCatbzuemG4eTt c+HNx3x2ctgZTlEV0ooOL4 UL36YI93eAYwq5X2zZV8E8 BhZGRpbmct geblhTR0PGAnMYCppD80Nf 4aeTqsAv5mKIJnPQT0TBOr hGFiY8BelY7vKxUjOLHwEE QmY4LvjEUa YDjfF760IDyvCcE4YRWdtk TkM6MnARIqeKflFmD8k8T4 Ce6EWB82PR42XI71vEJvg6 F3uBZ4Z7Dr DZLxyuaqftrnjEG7TQVgLI IsvQ01Hh9fqCelTh9fGWCq BBY9EEAqpOBdO9LraV4cMp AjMDAwMDAw E0JnqUKdZMsnM718EWbuKr S0MLNsdpLhA6OxAJIogJga McE4z1L5Zj3YDq80KV98BR 42yJApj2Q6 jQY3Q1QeNVTxxhqeaxwefR V4ZWWqYRBviN94Zh5xoXfz Sy4gSZYrPOT3MTBxpJHcK1 MckO4dUmSy GKWlWWVkU0NavYYsPEexQ9 97YCtpEhA8DCOreuWqG7Qq ICRkaRytVcB3t6K9Ty7IRZ uciiw0M8Qs PjwvdHI+HV12YTPmOC59fW HnuETbv5pvwRf4EaWwSJNj BWM0yNmjFYomm7LcQFDhD7 1ffMFri8H8 IGNv (more content not included)... Normal [facility] Coding Summary. CD:[id number] Gh 0bWw+PGhlYWQ+QM4BFYSiY 59wdKSolI3NB9oUUT8CBNP UGQCIWI8ZEK2jiGG5BSebV 2VybiAv IvvsyAVjFD06SMw2SOY3gX bdJToosR8xdDYrA3b8LhTq XX13yF59BUanCIAeGzX1Ut ZpbjsgbWFy Z0mwRoQefELkJlf+PHRhYm xlIHdpZHRoPScxMDAlJyBz yWclWP9mYd7qJNBhLYAawR xhcHNlOiBj u4paRTRwIYkrGH1zaXwbJ5 XenQL8PBPqy8s3Xa62yIC+ KAWjANW6qEfbDTqvi448Qq Tiu9fjVIK3 hLLgSHrtMIF6Z24jz7R5NN CgVZUmAAC9oZC7nU2niBch ontiU2GfxIOdCiD7CAB5pJ KozS2gqNxx ohzepZ4zQgc+Z38FJZ1KOJ HVIU3CTwr9F0LaFizulHC+ XN08JTTbSE49zPUmiPUgo0 bfsJf6LnNi XGPzYRI4hChrZRyeo6QnDX WzY26olSCos6A2SNNxcNmx kCOmDbNijOH9pF1jBFjsbl wsj4dferzz Hffle5bpgy20qY26C34sTD zgYHUrGVA7ATWjFXXjfJgl wz8gsP2sZo1+JLdbp7bsj8 umhTo4GmIp IABktuFfsTayUOV0s1DfLp 41L0FfeCyjm1XuXnc8xw55 xUFmi9N1gPT6MNgcARAmxM 3kGSftVaJ5 QIRpQqXjxN97uVOzVRjqFw 6eiJafiQgxFT3tMHZlikay ZQQbfV5eMHOgxRBmjDvkRJ 4wNTBpbjtm r766JfUxCGU5FZYpvAXyM8 FdbW3bRsXdLTEmWXKwB7Uq mVCrINceP530SGdmFuV0YB VtmlNaH2Wk QUDiwSplQyT5c1J2Zv4Di6 CjfrbkBXP4TYgrDEPvGjKm JxCvFqG9G1DpTtf9BPLrxS lxSF7vB3Ql ZDQbkegigguwdLO6UTWkRU OlsZ04yXExOOyyYq6qb7C8 h755YPGvKPEcxX47Ok3yuK ogMTBwdCBU uW3uxhjbk0ptyddfXrFuVM MqVBl8BQx2VWFutPkvPdXw VFY5QuC6JYD6tEQiiI7whK onymvqhJ8q Oyc+X21jrG8aLMI7KHA6ta ueMOQlyzLzZU94LY59S0Fg PjwvdGFibGU+PGRpdiBzdH mhXH5cAgPx a9ffp0XzJPmaR3XsZRFcSD yhTkn6JRIsHDH1uGN6lA7c WQNyKQsyq2A7qUP6R7Ruwi Rxoo0qd2gn UFRjMKxmN82wtZZal0C5ON AvyRK9MEQdbTmmAzUewL70 Oyc+MNJjcZxmf6GjPkovv0 euc7ucnSb8 NqFjFUQlxsVenEbfJPL6q2 FkHn57L99hTMylYPYcXLJi DEXgSVSflNecoa7roP7eWh 8+PGNvbCB3 yNS5pX1sRCIhHbZ9QDqfA4 87JuIzxOUoEkqwd7zuc1pv tPi0UgGpXFJvdcUrsAumKK P8f8JlLo09 X64sZSstFQSqYSIwPDIhGB LhmNykzd8kgX9eAb5+PC9j r7zcaa47sD28zUZ+PHRkIH L7aVhkIJgx KHKrlF8qVWpuPcZ0MJEnXj NjrN03wPWjHWirRr2bbJur qAbrCV3mQHOesmchj679Ra Vjz1dnILEh qFVqYUkaTZG5K94hz3S6SO HaXGSpXVF4bFL6dA5qvUoh bjogbGVmdDsgdmVydGljYW exTTprX138 IHRvcDsnPlBhdGllbnQgTm JgGQe8G1GaGrp2UFUasNdh DF7vjFZwHMpzJv1eqFwytQ bvRR0xAZJl mysjj700VaAfq5siOAFaqT AgWSskHIU3M58js0S7MSLh WAVwHGR5gKL5lH4olZnmxj ogbGVmdDsg fkVebFbdVXooZJkwU543KU RvcDsnPkJpcnRoIERhdGU6 WX18MN46zVZlp0E4cBZ5F8 BhZGRpbmct dporzHD7CSQpDOBmgE25Wc 1vgPkxWi0uDMZcJVK2TSUp bJZjP7WuxP2pSfXyONNkID OwM9MldPCi BFmjG984WSfuDjG9MPUpvn EgW4NqYWPnbZhmJyG1z8J9 Vs3ZT9F1RT14VH97bATii4 R0dVR5Z9Hq RGVcthndbnwquOB5IWBxDY UcdC11Jd0miCiwJx4oRKIy DIU6ELMitNEsG0SbwR8cGa AjMDAwMDAw U6JlfHVtQMigK789KXbcNj U3EDHborWwH1EqQDMzbCki CjR1j2A0Al4QBCt9ZJ80JZ 62yDHzi0T1 dXK7N0BxLPNccordmqyheR A2QXOiYPJafB76Xz5wqRgt Vj2kAEBmETM2RUVooPGkE7 PcoK5wDkEa NCJxRSFxC7JjgWOwYUqwF3 86CEnwTlA3KHKhpqAuR9Be MMTbiOleIoV8o4Y4Sp0NDK OsDH14HIM6 mYR4FB23ZT16W0AaBowujI FibGU+PHRhYmxlIHdpZHRo QMmxWPSyRzLofQkfFO7sQz 9yZGVyLWNv pBdkjDPeIxObj8gtEMWtGR lbVU7kxRsoS0FohUM6MJHq v0x8Cl11Z37pG2YjeSC+PG GnkZO3bFF3 uQ6bAlInRgN0FNdoM230Xf BuuEHgTcaam7sdl5bnoOf7 CiG7MAUkwkWqnUhaCHG6n9 BbIn51B22y IHdpZHRoPSIxNSUiIHZhbG wktp5yoH9pKc7+PGNvbCB3 yMH3lX6wJhXoRcA9GDedE1 49InRvcCIv Lpynw7gtc2yoiMy0PhVcHS TdquMirAkpCYW9a4HhFx99 C4XuaEkxr7WlCdt8gt50aU Hmy7Q3rAM5 D0ZyRHJyuvcvcSIjnJijVF 1bZYCkpsapUKKpoJ9lXWWr K0n1GiHkLiS2DVfdN5Oflv V6EEWsqKRd KUxaKFN0K54fm3U3GTYbKL LqRBR0uEA4xD1atNarpief bGVmdDsgdmVydGljYWwtYW ncV940ILWg vPfhNGEbjX1vBDSfuVCjoY dcXU5wVGNytlopMrkYVMmt IEpBREEgTTwvdGQ+PHRkIH E5jUepOVaf UKWhmC6aHDBrS8r3AxHjPd D6XJtkO7XkMGLofbodZg86 xS2oTgIxHyY5FOxkB3Sgcq W7DVLwlAQp UVcbEJO5I70lm4H9ZOWzTP XaJIG3kIV1iO3adZmixlns bGVmdDsgdmVydGljYWwtYW xbV705SLDc jKlpHmP7VeV0VmD3GIK5Q4 AaWth3OYZyzWmsPR2agUNg CNkrBs6cqTvaeKemPU8qAM BpbjtwYWRk rA1cNQNujEOxnXsxFE4jGS Dneewvi344QrKxESK2HBIj iKYaS3WysD0dZmYyIGIrDA XiD3IsiZVs EVkyQ488WVtfLwO9IFVztl DdC0RtPXArkNzlBqR1k9Z9 Aq9vREVEPBMqbbyxaAC+PH RxRSS3zTwv USfaCCLutF8cPANxF8x0Lt MzIlG6NInmU4GzFXGpoxeb Af02vT9tCpZiXzB5OYpyP8 GevuW3TZBl bMPiDFsmPEP4X76uw8C5WV GyFINcKBR8dXH4zN9saSpn bjogbGVmdDsgdmVydGljYW wzOPbxW406 IHRvcDsnPkZlbWFsZTwvdG Q+GISyPOJ3cSjrEShkUBSc iC5sFRPtG5d2KySpJyR0UK ewT9KwJMHi cxiuQx99xG9iUkNnVoW1UD sdW1VlqvC3ZZXthLVyUTgq TJD0Q51aa4E1PPBcOBNyKU S5mMR7hA8u bGlnbjogbGVmdDsgdmVydG dgESlvVHcuD882CDEnkOlg QfDbZEBkOB7paOnbmFC+PC 65xb03V3Qp MffoUrl9FYMkRBP2vJC4sO 9fTPRrPCdbs3B6aKR6N3Ez ebBial7ki4lrTLJpKEppL8 9ynAGso6Y3 UKKpuHJ7ACEexOjqCvKpiB 93Oyc+DNFebQant8ErEpvd u0vmo8gsbIm7IlFuLPFghn FsaWduPSJ0 o2GwYa61P36aSGepDPXlCQ LtNMWcNVGflFyopq1pyO8h Ii8+BGEgtBL8xWR8hA2dJt PvUuL7QDwm D366BiUonAHjNqazy4vwf7 ntxFw6NxLqTHPmirCvaDws BVL5i9GjXq46N9OhmZadp4 DcGri8xt49 fLIrb7D7cBY4O5AlRLVpgf njaLWjjIcpAW9sYQFikoif TWQfsK8wJFLqK1t3SpFzIu E2FUfxH2Wb cjE0NEFocBEvYPKizGLDpI 2jpttdb7ybbwqqZySzGGIu RJl9QPy1OHPicDvmUcKjMU C0WqN3QGY4 jBKakX4laCdtanzooN5kHr c+JEd4y5sypBYdNY8fiXF5 RH62LU70eRClo5W9mQY0G6 BhZGRpbmct yniagZX3CUKkKGHkzW62Hy 9cqBmiZq0nJZDuZKW6HJXs cTKnC5FbaU0sZbJeVTVeQF UxX8SqvOHh KGpjF820ARiyMyA2QKQkgd UhX6FnMLCieMkaUrP3d9I2 Gi5DYI56FL72QO05zTYnj1 Z9cON8O1Yl WFYjtgfauxraaAG3ZRXpFV FvdU41Pu6ytKazEl4tOAIv FPA2MJYhoZNoS7XcgA7dVr AjMDAwMDAw J3KxdGHrUPsnY725OCszNe O0ZBMjzsHwY8TcLGSvyOmy ToM3i9A1Cn9BAp65RB57SC 46tDEvh1N8 hWU4O7NcPGXsevzwhbbffJ I9LKGyRFVrtP99Ee7miHtu Yj8wAVVvJBG5GWSbvHGoN1 NzyA5rVnVp JMGyVCCnL8ZkhIXmMOtpG6 64NVivDsO2AUHmnjNsD4It DEWnnUhkUoO8e7F4Fb3IAT cyjgi7A1Nx PjwvdHI+LS60MSQsAJ83uK AtfBRca0gsmDn3KhXpUIWp RXJ0eHygKRayv1KyMVJhK3 3wrQCvs2F8 IGNv (more content not included)... Normal [facility] Consent for Treatmenton Consent for Treatment [id number] [id number]#[id number]:[id number] Normal [facility] Discharge Instructionson Discharge Instructions [id number]:127 Normal [facility] ED Clinical Summaryon 2021 ED Clinical Summary [address] [address] ED Clinical Summary Person Information Name: LEENA INTERIANO Edith/[facility] Age: 32 Years : 1990 Sex: Female Language: Sign Language PCP: BENTLEY LUCERO CNP Marital Status: Phone: [phone] Visit Id: Visit Reason: Eye drainage; Nasal [...] 06/18/2022 13:28:16 06/18/2022 13:28:16 06/18/2022 13:28:16 ADDRESS: [address] [place] [phone] PHYS DOC NOTES: MEDICAL INFORMATION: Prescriptions Given: New Medications [facility] 1986, [address] [facility] [place], [place] [phone], [phone] loratadine-pseudoephed rine (loratadine-pseudoephe drine 5 mg-120 mg [...] Address: When: BENTLEY LUCERO [address] [place] [address] [employer] ([employer] In 3 days 06/21/2022 DIAGNOSIS: Upper respiratory infection Normal [facility] ED Note-Physicianon 06-18-20 ED Note-Physician Basic [...] for 10 day(s), 20 tab(s), Refill(s) 0, [facility] 1985, 165, cm, 06/18/22 12:19:00 EDT, Height/Length Dosing, 86, kg, 06/18/22 12:19:00 EDT, Weight Dosing Rapid COVID Antigen ([facility]) Disposition Plan Patient Discharge Condition Disposition: Discharged home Condition: Improved and stable Counseled: Patient and/or family were counseled to workup, results, treatment plan and follow-up recommendations Discharge Prescription List Prescriptions loratadine-pseudoephed rine 5 mg-120 mg ER Tab, 1 tab(s), Oral, q12hr Follow-up With When Contact Information BENTLEY LUCERO In 3 days 06/21/2022 EDT [address] [place] [address]- Business (1) Additional Instructions: Patient Education Upper Respiratory Infection, Adult Attestation Patient seen and evaluated by the physician first assistant manager. Attending physician was present in the emergency department and supervised care. This visit was performed by both the physician and an APC. I performed all aspects of the MDM as documented. This report was transcribed using voice recognition software. Every effort was made to ensure accuracy, however, inadvertently computerized diet technician registered mistakes may be present. Appropriate healthcare PPE [...] (06/18/22 12:26 (more content not included)... Normal [facility] Comment on above: Result Comment: Elec [...] to help relieve symptoms, such as: ? Ejyo-jwv-kktgriw cold medicines. ? Cough suppressants. Coughing is [...] other clear broths. General instructions ? Take ggwx-zeo-rnekidw and prescription medicines only as told by [...] and water are not available, use hand relocation services specialist. ? Avoid touching your mouth, face, eyes, [...] common infecti (more content not included)... Normal [facility] ED Patient Summaryon 022 ED Patient Summary [place] [id number] Patient Discharge Instructions Person Information Name: LEENA INTERIANO Age: 32 Years Arrival Date: 06/18/2022 11:56:54 Discharge Diagnosis: Upper respiratory infection Primary Care Physician: BENTLEY LUCERO CNP Provider Information Primary Provider: Connor Castellanos DO [employer] Marker:Grant Jacob PA-C The exam and treatment you received in the Emergency Department were for an urgent problem and are not intended as complete care. It is important that you follow up with a doctor, nurse practitioner, or physician?s first assistant manager for ongoing care. If your symptoms become [...] Instructions: With: Address: When: BENTLEY LUCERO [address] [place] [address] [facility] (1) In 3 days 06/21/2022 In the event that this physician does not participate in your insurance network, please consult with your insurance company to find a nearby participating provider. Patient Education Materials: Upper Respiratory Infection, Adult A MESSAGE TO ALL PATIENTS REGARDING OPIOIDS PRESCRIPTION OPIOIDS: WHAT YOU NEED TO KNOW Prescription opioids can be used to help relieve junbltas-hj-klkzno pain and are often prescribed following a [...] be struggling with addiction, tell your health resident caregiver and ask for guidance or call SAM[employer]SA?S National Helpline at 4-757-130-HELP. v [facility] (more content not included)... Normal [facility] MICRO OTHER TESTSOrdered By: Olivia Garza on 06-18-2022 Rapid COV Int NEG Ctl Pass (06/18/22 12:26 PM) Normal [facility] Man Sero Rapid COV Int POS Ctl Pass (06/18/22 12:26 PM) Normal [facility] Man Sero SARS-CoV+SARS-CoV-2 (COVID-19) Ag IA.rapid Ql (Resp) Not Detected (06/18/22 12:26 PM) Normal Not Detected [facility] Man Sero Rapid COVID Antigen (FT)on 06-18-2022 Rapid COV Int NEG Ctl Pass Normal [facility] Comment on above: Performed By: #### 2 [id number] ####[facility] [address] [place] [address] Rapid COV Int POS Ctl Pass Normal [facility] Comment on above: Performed By: #### 2 [id number] ####[address] [address] SARS-CoV+SARS-CoV-2 (COVID-19) Ag IA.rapid Ql (Resp) Not detected Normal Not Detected [facility] Comment on above: Result Comment: The [employer]? System for Rapid Detection of SARS-CoV-2 is [...] or revoked sooner. Performed By: #### 2 [id number] ####[place] [address] ADMITTED TO INTENSIVE CARE UNIT FOR CONDITION OF INTEREST:FIND:PT: NO Normal [facility] Comment on above: Performed By: #### 2 [id number] ####[place] [address] EMPLOYED IN A HEALTHCARE SETTING:FIND:PT: NO Normal [facility] Comment on above: Performed By: #### 2 [id number] ####[place] [address] FIRST TEST FOR CONDITION OF INTEREST:FIND:PT: Unknown Normal [facility] Comment on above: Performed By: #### 2 [id number] ####[place] [address] HAS SYMPTOMS RELATED TO CONDITION OF INTEREST:FIND:PT: YES Normal [facility] Comment on above: Performed By: #### 2 [id number] ####[place] [address] HOSPITALIZED FOR CONDITION OF INTEREST:FIND:PT: Unknown Normal [facility] Comment on above: Performed By: #### 2 [id number] ####[place] [address] STATUS:FIND:PT: NO Normal [facility] Comment on above: Performed By: #### 2 [id number] ####[address] [address] [place] [address] RESIDES IN A CONGREGATE CARE SETTING:FIND:PT: NO Normal [facility] Comment on above: Performed By: #### 2 [id number] ####[facility] [place] [address] Coding Summary.on 06-02-2022 Coding Summary. CD:[id number] Gh 0bWw+PGhlYWQ+AC1NJILkQ 18vxNUinZ3DN5zRXV7QRXX JOKGHRZ0GRV2tyGJ2MZmbS 2VybiAv IuldaJWuXL75UUm7COY9tI ojGBowvR4txDLuB2r0ErFc YB31pG79GUhsIENfDgP0Je ZpbjsgbWFy A3gbYpRrdMQxXch+PHRhYm xlIHdpZHRoPScxMDAlJyBz cUwaXR1rLl0fAZUcUIGpxJ xhcHNlOiBj l3niRQGiUTylAQ7deSrhM6 FvhXY6GUVmc1m6Ru42yKI+ OPUfTXJ9lYofIGovr347Qu Vif1frCUT3 gIMpNEhnJYL3O94lx2D7TL UcWECtDNC2qPM9fN6vxZbw hwetL3PmzGHaQiO8QEC7lC MncU8paUko kxgfnS6pHys+P89SXE2UUO SHZP2AQhm1C5EdPnekpIC+ NK78JLNcDM48gHMhvWVgs0 uuwEg2ZhRp DJSvKXN2jEojJPxrr9NpNU RrO30rcTVlj6L6VOButBfr qJIfKkLgiBX4qT3eCImlyr hlu6gigcep Vvpdm6bmiz21sH15F50tBO lyRMRzATV2GWThZHWtpYwc yz2vyC6jYt0+KEpec9xif5 egdBd8AzJb IEFuwhWkpNdcDQJ6n8ZkDw 84V7ZtbSdlq7ZjDvl3dw50 hGIyo6M1eHB4YOlmUODqoI 8cTSvvZfU1 WBFhVdZfoJ35qPFlUDrwPe 9nyPbleGfgAO8sXQAyvvjs XCQgoD6xXWEvfAJhxTygLH 4wNTBpbjtm c955JqTiETT4BIXqjNGmE1 WsfD4zImZcIUJaIPUiO5Kk kRIvELhfM100OElxNgL0YO IxnwBwI2Yc ULTmkGsoNeL4t1D9Po8Bb5 PgqqwoBYX4EDwnCRT0UjC5 HcYxObW0Q4JjPau9VRBurE mjYZ4aB2Tt TBHvyvbydaonvFM9OBXuGI GaxK17gHRfHLicHm0vv3D7 c270IDPnHWZleG80Ew4gmH ogMTBwdCBU jM9txnkin1tqmtapQpHnKK PmZMn3XWh7GPVrvOuiShXk KHK2DeG2ZBS8aBRfhW1nvB igstrtyI1o Oyc+L75vxG1zLTU0PWC3cy gyZBYvvgSxAQ17EZ96K3Hn PjwvdGFibGU+PGRpdiBzdH yuAQ7zVkIr d5kbd3VvRDskK9DyKLDvHV orGyr2JSAeFMR6uLE0cH5t VFBqUOxvj3J8eAZ1N8Njla Mjid8zz6ps MSIvFSwdN26xcPHyd7K0WH OwgMN3NVOovPnvEjCimP38 Oyc+CWAnsPiia3LhGfjxr4 ons3pqxBe3 TvAdNOKhvfWqdIdcVDM3i2 ThJj32E78mSZvpTIYtNWEo AIHyPSHadYsvtv0rvU3pIv 8+PGNvbCB3 vNQ0rS5lEWRyMoF7VNojF0 86BqMxqXTnAuxjx9vxz6eh rJw6CjPeSIKjmyEyuYhlUL A6z6KbFv10 V28eKFuxCCZtHFPaBDLrHG TzrNtzwk4hxP3oMr6+PC9j t2przm91zI29hHM+PHRkIH W6qCzcTNeo TRXwzS4iQKcmWjG1YEYiLl QmwL38hXNgJBevOh5ehFac yKfqJD7hAOHagwbkw551Ub Arg8zyPAHg ePEeFXguXBA2E77cb5N7OP MfZTEfEIM6aVF4vF3apXlb bjogbGVmdDsgdmVydGljYW miFIuwM626 IHRvcDsnPlBhdGllbnQgTm FeAMi0U0IiIvp6KNKqpHgn CQ8lyNBaJNvcYq4jlMuazO lyDT2hZWFl bkaxa516YqHxi4mvYTCodH LsMCenTVQ7S97ba2F7ZVDq ODSqTHV1tZI8yH0cqLnvjj ogbGVmdDsg yzVvqFhwMOfwGDtdE267UR RvcDsnPkJpcnRoIERhdGU6 GN95EW50pCQsu9D0fHP1O2 BhZGRpbmct qkmhvVP5BERxCTTqlX02Xd 0apKkgWg0vLFZsMMD3WYGq cGOlY7DkbV3fZuQpQRUdWL BnC9FvnUDe WAdtK850XVbrIoT4WWPmbl NrP7WqDGSvoNrjDeT1z2K8 Wg3EB7S5FC11FT66dAFrm7 B1oUE9B3Kf AXTmnztwzuixbSI0EOTnCY CujT76Un8ryYwuKu3pXYBp IMI5GSGspMKqD8JbqQ4yDi AjMDAwMDAw Z8VkxPMxVXmdA773FLolIo P3GVQowsDkX8JiPYOfvMfr TkP1u5Y4Gw9GDRt6QK91AA 42qPQol3L1 pTB2N7AoGVRxvbzsfpulsI A5VNHyWKPvaG69Pv4haFbv Ep1jXIByBWY4VKBaaJAiR7 AehG8gAaSy EKZmDOKwY0FccKYhDCgtY4 33BSmyEaK2LQEhdnSaJ3Pr GINlmMdxPpC2z9J1Pv9OTC EyMR55KAB7 rGK6FZ72SC91D1ZcFfpfuZ FibGU+PHRhYmxlIHdpZHRo WCsnIUPqYtEteAtpSY4vIy 9yZGVyLWNv tFcekPHnUdVpe8ooNJZeXL zvFQ2zsSryL5AkiYD5UYMj h1k4Kr61B79hG9EmcKR+PG PhkOC9uMS1 eT5nIqImUrR8HYymB396Ke BwiTRjVxnbb2xhl5gwyNv0 WtD5TIVhknBedJbsHOT3j0 PgYq98R47l IHdpZHRoPSIxNSUiIHZhbG wixx7eaD8aEy4+PGNvbCB3 qFA2zH2nWwXlRpN9EValX5 49InRvcCIv Ioulk9bgq0iqkLk7ExApIV YaocZkrNbtPBM1a4CtCr12 G6GzaUlpp6EbTwy8oo01hH Xku6K2kMI4 D7KqDOBacvprzGHokJqsDC 4jOVBzoxplFQDxaU2vJDTg R6t3BpLgGiQ9GQjvS7Hzfq O1RCTpkFDa CFshBFS3I66cc0N8ZVSxWD EbSXE9jAX6sV3lhFmdjoap bGVmdDsgdmVydGljYWwtYW prN233LCFt xRsbJPXshM0pGUFswEOaaD ltHQ3qUTDtwcnkQzjPRGuc IEpBREEgTTwvdGQ+PHRkIH E1eYjtZAwg VAMmzH4sBPIiK8i5JzIpNg R2LGatE8TaYUNwjjkoQh73 lD0yZvPbBmW3CYonD3Rtoa C7VEDcaVTn ZGedCGY4O37nr5Y6ZTViLJ XmSTU6tBX9kO8crLegipuu bGVmdDsgdmVydGljYWwtYW biO035QHVs nZrkLoR6UsW8RbX3BJF5X9 AbXah4MDDmaFlpHQ4unLTz PTbhQu7tgRkmxZewRK9hSW BpbjtwYWRk sI4nGGDycXSaaGmlOK2fLA Ylxwege289IrFaMNR0LOOz uPWcT4VshJ5hYnTgJCTiMP RvD4AenROj DMtvH093JUpeXeY7EMKpmf YvV4DiFREeiOawOdY7b8S4 Lo6cAJQBJHThyeowhDV+PH IeNNC5mLwt DZdcOKNzrD2lATGuR1v7Mz FeNdZ0MAzlS4JfFVPiueyq Kl66xX3qSnEgQtL2IDfaQ8 WbxnQ5AGDp vERlYAlrRNL6Y88gt2S4NS VhFHLzUIP7bBF7iK9xzWfl bjogbGVmdDsgdmVydGljYW vmEOufB077 IHRvcDsnPkZlbWFsZTwvdG Q+WDCeAKU5dTifIYafTPWz yX4aDNMtC4y3ZuRbRiX9WO ekZ2TmJSOd hflcFo59aS1rUcEnRwY4BB yiR0MhoiP1GFOzmWMcIVdw MLR1A47ar8X8DZScKHDcSN G8rLO8tW1a bGlnbjogbGVmdDsgdmVydG qlIYoeOLncL765BYNxoXzl BiWuUUWmHK8psOjjgLB+PC 34pg95O5Bz CavdGem7OVFxCNM0bIP5lC 4uLLKdMMxnc8O1zQW3V6Dh buJaki1fv5fePGNgGFjaU1 1vqPScv3X3 TNBgaKZ5TNRosWbjPkOurF 93Oyc+TIJqqXzrh1JcOekk b4fom2xkoBp8KmDoUDZwfh FsaWduPSJ0 o9WmYt33E94bPFksJNJiWJ ScMQHcOJYxeZxbrm8jpU8d Ii8+YEShmAE5uBT8vD7tLk MnCtK0OYmm M992DdYqzFUvWwtqm1qql3 myeMi6UnTaDDQidaRhxZmo BWK9c8PiUd70W3YlpTtms8 LjImi4do56 bRPct2F2gZC8Q4GwWHMpvl hxxJJqqErlGF3wBLMzvcru VPUnsQ4fGSZrY5m3LpNkZr Y1BWzaP1Ww ygE3OVDqiLHoVQGfsNKMfS 7yvfpjj1duytqxQwIiGXEn MLc6DZc5DMPqeBytUjAkCG C0KuO1DYV5 lEReoF6tbXbjahdbpF4lGq c+UYt1u3bkrUBpKL1xwLF4 RF67MK61cSYvk2X0mLR6O8 BhZGRpbmct lxkqbQH8JJTgJOFfcY97Fm 1buAxgBp4zAAFsEZG5VPBz eJBcB8CefW8pOtHnDSMyMS CrY9ZyeSCc BDqwS753POgrQeN3ZRWxyw EvR5LeTQXhuYvkBfY1o2C5 Ra8ADX74FU73OY88hKQbn3 N8jIH7X0Ge QROuqmgtsjkqsLC6XGGaII YebF68Bj2wdOtvFs3dZAWb FTJ8YBZgtRKtQ4SkkX0tJe AjMDAwMDAw B1QnwGDrBFxgI134CSflPj Z9QAYunaItZ6JdSXDjfGwi SxZ5z7V2Xz5IPj45XT09HH 93eCBty7S6 uRN0M2TfVXTpxvyrlwakxK J4GNWjEYMuyH66Vi5waYnr Js6mKUHvFHV2YGOoyLCiO3 TkbF1tSdNw RIIeCQCeE0OhcQQjRBrtF2 75XJppNrN7NZKqmbGaH5Yk UMBrnQmtWaX5m2F1Wk2VZE euljz3M1Ix PjwvdHI+JT65ASNoYT66pI IdqXPtr6kgaOp0QzYyNCWt IER2iSstVHukz1IeNUPsW2 8lbAHpw9N4 IGNv (more content not included)... Normal [facility] Consent for Treatmenton 05-15 Consent for Treatment [id number] Normal [facility] Discharge Instructionson Discharge Instructions [id number] Normal [facility] ED Clinical Summaryon 2021 ED Clinical Summary [place] [id number] ED Clinical Summary Person Information Name: LEENA INTERIANO [facility] Age: 32 Years : 1990 Sex: Female Language: Sign Language PCP: BENTLEY LUCERO CNP Marital Status: Phone: [phone] Visit Id: Visit Reason: Medical screening exam; [...] 05/28/2022 11:50:13 05/28/2022 11:50:13 05/28/2022 11:50:13 ADDRESS: [address] [place] [address] [facility] [id number] PHYS DOC NOTES: MEDICAL INFORMATION: Prescriptions Given: New Medications [facility], [address] [place], [place] [id number], [phone] cyclobenzaprine (cyclobenzaprine 10 mg Tab) 1 Tablets [...] up: With: Address: When: BENTLEY ENGLISH [address] [id number] [facility] ([facility] In 3 days 05/31/2022 Comments: Call the [...] left-sided sciatica; Headache; Other chronic pain Normal [facility] ED Note-Physicianon 05-28-20 ED Note-Physician Basic [...] back pain. She is deaf. 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 Med student who accompanies me is fluent in sign language. 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 No indication for imaging of a acute [...] pain, # 15 tab(s), Refills(s) 0, [facility], 165, cm, 05/28/22 10:56:00 EDT, Height/Length Dosing, 86, kg, 05/28/22 10:56:00 EDT, Weight Dosing ketorolac, 30 mg = 1 mL, Injection, IntraMuscular, Once, Stop date 05/28/22 11:29:00 EDT, STAT, Start date 05/28/22 11:29:00 EDT, 05/28/22 11:29:00 EDT methylPREDNISolone, = 1 packet(s), Oral, As Directed, as directed on package labeling, X 6 day(s), # 21 tab(s), Refills(s) 0, Pharmacy: [facility], 165, cm, 05/28/22 10:56:00 EDT, Height/Length Dosing, 86, kg, 05/28/22 10:56:00 EDT, Weight Dosing naproxen, 500 mg = 1 tab(s), Oral, BID, PRN for pain, # 20 tab(s), Refills(s) 0, Pharmacy: [facility], 165, cm, 05/28/22 10:56:00 [...] mg= 1 (more content not included)... Normal [facility] Comment on above: Result Comment: Elec [...] instructions at home: Managing pain ? Take ddxa-cgv-zfrjwor and prescription medicines only as told by [...] most common (more content not included)... Normal [facility] ED Patient Summaryon 022 ED Patient Summary [address] [address] Patient Discharge Instructions Person Information Name: LEENA INTERIANO Age: 32 Years Arrival Date: 05/28/2022 10:43:04 Discharge Diagnosis: Chronic left-sided low back pain with left-sided sciatica; Headache; Other chronic pain Primary Care Physician: BENTLEY LUCERO CNP Provider Information Primary Provider: Connor Castellanos DO Advanced Fishing Rod Marker:None The exam and treatment you received in the Emergency Department were for an urgent problem and are not intended as complete care. It is important that you follow up with a doctor, nurse practitioner, or physician?s first assistant manager for ongoing care. If your symptoms become worse or you do not improve as expected and you are unable to reach your usual health care provider, you should return to the Emergency Department. We are available 24 hours a day. LEENA INTERIANO has been given the following list of patient education materials, prescriptions and follow-up instructions: Follow-up Instructions: With: Address: When: BETNLEY LUCERO [address] [place] [address] Business (1) In 3 days 05/31/2022 Comments: [...] opioids can be used to help relieve iddjgfaf-js-vzmztq pain and are often prescribed following a [...] amounts or mo (more content not included)... [facility] Prescriptions/Work Noteson 0 05-28-2022 Prescriptions/Work Notes [id number]#1. 00CD:127 [facility] Consent for Treatmenton 04-14 Consent for Treatment [id number]. [facility] [place] [id number]#1. 00CD:127 [facility] PT - Assessmentson PT - Assessments [id number] 04 [id number]#1. 00CD:127 [facility] PT - Consentson 04-24-2022 PT - Consents [id number]#1. 00CD:127 [facility] PT - Home Exercise Programon 04-24-2022 PT - Home Exercise Program [id number]#1. 00CD:127 [facility] PT - Home Exercise Program [id number]#1. 00CD:127 [facility] PT - Otheron 04-24-2022 PT - Other [id number]. 04 [id number]#1. 00CD:127 [facility] Coding Summary.on 03-26-2022 Coding Summary. CD:[id number] Gh 0bWw+PGhlYWQ+LH1FZSClL 17rnAJhiB0YA4aGTA6AFSB VKLYEYS1MBE3jbWM0IBmlM 2VybiAv HaqtoIIiSB79GFy7ZVH8qF zfKMiqhU3noDFlC0f2EvIh NC30wJ85GThfWCEtSmQ9Ny ZpbjsgbWFy A6vcFsZqzVAqFpf+PHRhYm xlIHdpZHRoPScxMDAlJyBz eXrxRA4cPa7pLGNmIVQrqS xhcHNlOiBj c0boJLCgJAajDY3bmVneD9 NalAX8WANba1v6Hw64aFM+ YQOrGHU6pCcdJUxct600Kr Hke8mmSGG3 bKYlJYyzOMM5N14qy4U2ZB UfDYFoMNN2jHJ0kX2zhPom udzvK2BbpLWgZgB8NRV6fB PteH4fqIby pdjsqN8vQwa+S99PIZ5UIV VPDD6JQlf2K8ElDrwgqGK+ TG83JTEeZG71jWNyaGIhr4 cfgVs6MjRm FMWoVAV6rNpaYNazm5PtXJ GlP07rkDRcv6I9DODurCby aYSdRsLneHZ6eY8iLAyuho trk7ryjhyq Vlrze4pave68gF47X40vRB wsZKYqQDP3IQLiVEMlzAdo kd2zsW3iId3+SSbrq1jve3 naiEk0KyJy ZEXinxFrzNmoVZH8y1GjZw 84P4JwhEekr8ZvHkm9is40 aQZzw4B0wXW6CVdiZVGsqY 0eOVwjQyB3 CJIsSlDflI42eWWgLQhuMq 4yzIexuQqpDI5kFROffmhi THMaiJ5fRMCsxOMqdSrjMP 4wNTBpbjtm l811JxUpUVC6NLHsaJDlL5 FgcV5uRnEiNBIqMRMfX7Lv fHCnFSeuH940TBihAsZ5HS UsoxQdO0Ux ZCSazQfbAqA3l1X5Ea1Tn5 UpuwrhMKR8SDoeYWB5MkVb FwDfJjR4N0XbLep0MQWhiW mvPT5hM9Lc TNVhxlkvjoqheJG5ZOOqRJ YodL19gBYsRIwlTb8co3J4 b313EESxLUAazM98Mv3xyO ogMTBwdCBU kB8dnwaab3imjbkdTdHtOL ZwSHc4RSo8TOLniZlaJcNq HIY6RrS8MKX4cDVzvY7buJ exypklkS7e Oyc+U97jjR8lKSR7PUI9aa kaTXPuohHiME39RS77Y8An PjwvdGFibGU+PGRpdiBzdH buFX7rPvRg f5ubf7UzPOcyU5RjNNFsJL haKte6XDUoECJ6vEW8vG6x MQJyMNuuk1E4jUY7S9Nowk Ylup2ox7fg MCMxPRrhN10ylYEwh2I7BL IxxXB6NSRgrYpmLoLhaP12 Oyc+DZXziNqty0GtUloxp6 eic2tbdGo1 QnHdLVHjnwSgtJmoWJT3a9 LaFc50K72xLLaiOTNwMHPv WKQhLDUrjXcrhr7wqS1pIu 8+PGNvbCB3 oBM6wZ6ySVShUdE0BJbnR7 09PtXmgMMiXzpdp8ajr6hs xWd9ZnPaQFEglaPkaCxyUG F7t0LsTy15 D47cAGggBYLaTNCpLUOgZP WisQpwjr5uhK9jZc6+PC9j a7tgjy57yM56kVW+PHRkIH L9iLftPGhj MLLgtN3gGCxuJfY2VGCcJe HuyI31mAYvIOieNw1ztDhu aDgnMT3jSAQwoehak921Oq Uyu5qqCLKl pRDrUSezRUW1B44om2Q7ME JnPIPeSSD5sYY6eT6oqTjc bjogbGVmdDsgdmVydGljYW bwNMrsY253 IHRvcDsnPlBhdGllbnQgTm UfFZy1O2WcJfc3BMShvRyw BD4nvFDdSKugTt3xfNrmmD sxFK1cZYIc gdmqb288VoHbp2viFKOljD AcBKxbIHN1J17fm2O4YCWs UFGhILV5jSW4vZ6sjXwyds ogbGVmdDsg bbQprSmeGQfuPRmuX414LA RvcDsnPkJpcnRoIERhdGU6 KW61TA65hVQki1A4bMZ5J0 BhZGRpbmct eeiayFR3ZOIrICQytM07Cg 6ydZmjRm7xXXPeLMQ7GRDw bNMpN4QelK6mZmGzEBDaNX IoH6JtfRLe FGohD440AEbcMvH4FCKgic SuN5DmZUBzhLymTrF6t3B2 Zl6ZW9X4GE44RG11gRFlh7 F5hEE5E9Fg SMKgvqankdlyhRS8IFDtMF VjqV52Xl1psFpiVn1dIXYw OPL6IKIndXIaH8TqlX1hWc AjMDAwMDAw K1UnbMAsQEabL344BVoiHc H2VAZkxpPsJ1EbQXIsaVqn YzQ3a8X2Rx1KHNm1CW38DE 18bQAoh5P9 sSY6L1GmJKFzevlqqqsgyH T0KWZrWIMwxF69Te6ofMpc Mr5pAJMkEZE4EPUlbFUbW1 BquU3pQhXj FRKbNNDzE1GdmZOoTIphZ1 07FOpkNcI5MHLvdkOmN2Jg QBHynVyxFnU5f6G7Ww1UXT LjOZ82MRG0 xZW8BM43KO16X4MwVggbdR FibGU+PHRhYmxlIHdpZHRo ARisMZGyKuThsBclCJ0sLi 9yZGVyLWNv eGfpgOFrLbDol9duCYCvLH xqQL8oaDejK2YqqAS5PGJc m9u1Gt04Q84dO1GvkRN+PG YzpOC1wKG0 gR1hFyTcScK0AZagC184Rt EnaFObDmnjz0ewa6etqOy3 TgQ5QMTzzdLinZywYZK6t8 JbCt33Y30g IHdpZHRoPSIxNSUiIHZhbG ktxq0tdV3lQu3+PGNvbCB3 eJQ2pD6nGlMfBgT3QYtuO8 49InRvcCIv Ynpid4yev6mmeJh8FoHpJJ QlmlDsvTgtELZ9v0LxKf55 S0HwlEdxk8WxVvf1sg22vB Fsg4X1pJI3 E9DwUBMojrnruWKnsWarXF 3rONNvklubMSXcsY1vUGPm Q4t3XkIaBbD0TEsoG4Nzyv K8KGNkzZAl UDwaNCO7V38ng2G7RCBmET DkIVG1yEF4oJ0whGztxlzl bGVmdDsgdmVydGljYWwtYW ooF305BRTm iOmqQMBccD8aWGXwzHWtcL yiPV7hIVRxvmhhXwnVDOvd IEpBREEgTTwvdGQ+PHRkIH X6hQxsXTvn ZSMpoX8pFNIdB2q4TzFzFg S2MBnpK5IsBJZdrordSs34 dR1pCrJcDlJ0OOqmM8Xvfj N8CQJcfRBc VSfrRYN2F78ek1T3PPHzJK JoAXL6gZH9pD5sgZpenivt bGVmdDsgdmVydGljYWwtYW hbQ130LIXl pSifUfW8AcD2YmI0WGA4O7 RgKoz4MDXytCuiZN3fgGBw NSekPc7ibMokgKsoWL9kAE BpbjtwYWRk yN9yOGAphXCstTniMA3aUO Jibvrfx633KyAbIXL1HPAc rFXxO9BviI1jCnDmWYUfHA BoP1IdfADx JDgwK570KAdnPuX8BEUrjp CaI6DwLZCpuYfpMzD7n4X4 Cx8ePOGMFNGpgtcfuAG+PH UmMMC5dXux RTxsTVDawC8oXEXuR6p0Qy KuElL1VGvmH2ZrILNokmth Rm29yV9pVhLmDtH0LLxlC1 RbppJ4TMOn kKOcWDnpNII8W28or8W4US PsUWZyWEP3lEY2uT5jwUfu bjogbGVmdDsgdmVydGljYW tgFYxwX295 IHRvcDsnPkZlbWFsZTwvdG Q+TVHlNFY2fQseAAktHMNv xI8cBOPbY6q0XyCeMfX7IZ ijC2WtTZBd mcvbWy02dB8cEuXzWkI4BT usW6RlfvJ5VASmgJWrFQjk WNQ2L77bv2L4TYSlFBKhNO E7fKB2cS9e bGlnbjogbGVmdDsgdmVydG asYEqlRJsrO983MHWggGfg LkUbB3DzxypqFoyvoTX+PC 70cb64C8Ot KxafIok0LSNaWWZ8fMI2lZ 8vDTYvINxfz1M5wDI4V1Kx zaCgqb4gb0jhIZPnJUucX8 8ebLIxl2C5 DEFxiMG7FIJdgZkxVjHvgE 93Oyc+IWJoqWnru2ZpRmyi v3pfx3kizFw5RkErWXPygi FsaWduPSJ0 f1WuCk53L42tPLnyEVVhAX SvQZKmVKFtyMeent2nqG6d Ii8+HBSdyEW4jGD5wB4gWc NmWbH0BMkh I998GgJgpWHuHyihl1vbe2 itmWc6SyKwIXFyraXqjYyg FZL6g6TeLe07D3KjpRnha5 IsNtr1dc28 uFXpy2S4uMS8Q5GxHGUzec hlvHRurDznRW6lBXWamhqb SQHmlP7lOEJhS7u2FpBxPd L6OQjwL3Uq onP8ZDIjeVQyEARtxLNWkC 6esbicz1fjwyavMsGuUKYr ZOv3XEv0XONimCmdCuYjMD G3UwG4PZB1 kUMwrB8nzRgnizzqcB3nMs c+ABm0d4kilLTuYO7qmHE4 OV51SA62rIMzm6N7wKF9H4 BhZGRpbmct sovzzXE8WBVrRZZkxI40Lt 2miKhgSu3zHPMfVQF1SNRq rDPkH6IlxI3gUsNzITSoJU VcZ2HubDBu LUbjX971JJoqDxN9QCRjaj MlL8LaYDCqzSfnXkE7k2S3 Hy6KJK28SV90OR34hVFse1 F9lWZ1R5Hg XESwphjuguzcjKP6LBYoRV GxgQ70Ke0rpErfQv0wCFVy QCF8YYQgoCRbO5AibG3sSn AjMDAwMDAw C1IkvLQlAOctU982OKivGi W8CFTnrqJzQ2LsHGBbfZyw WnK1w4O6Ea9HZi91QZ42WB 81nDDqc0Y5 mNQ6F1UjNPKusbdsjezprR R5SKNwQVOgvT20Uy8kdIby Kp4aTQEfMGT8XEJptNMlK7 QyhZ8uJyNa FZAmGOCjY0EnwUGeONkhQ0 87VPvzLwB5ZNLpciCrT0Uk HFZewActGyA7d9I9Pt4YVS pflvo0K0Oy PjwvdHI+CQ79GDKrEC46fW UheDMpg3kckMg7BcThUTAi HPE2pJgrGTrpv9AbMNQhT0 9wpJUnx1H1 IGNv (more content not included)... [facility] Outside Recordson 03-14-2022 Outside Records [id number]. 05 [id number]#1. 00CD:127 [facility] PT - Orderson 03-14-2022 PT - Orders [id number]. 05 [id number]#1. 00CD:127 [facility] Coding Summary.on 02-25-2022 Coding Summary. CD:[id number] Gh 0bWw+PGhlYWQ+CJ3LLQIkO 70jvPVtiE7NG5zQAM8DLRI LFUPYFC6GKR6sgYN9KYbwM 2VybiAv CncbmLDmST28SWs5ZAW2sO cgKCwgpF5wnXUiT4k4HyDe XZ66cG22BJyxYNEsEeP4Jt ZpbjsgbWFy H2lnBiCjnVNtXtg+PHRhYm xlIHdpZHRoPScxMDAlJyBz xGgrWW2oGc0vYXIoHLFtxD xhcHNlOiBj s9awVMXcYSaeIQ8qvIsfP7 OlfIK4WMOdd0k3Fa07lQM+ TOYcVGC8pQwiULxut409At Jbr5bzRJB5 dREwQOziOHG4K64hk4M6XG NvYATrSCH5wFK3bU1mqWst nxrvM6WydSCsPuI0BPF8sP JgtQ9ulOhm kivpaU9gLdm+R99GHS7UHZ LEGG0HTcu2N0ZyQcecrRS+ WZ78YPLcMJ93hLVeuJBfg7 seiFl2WlJz KDJtSTO4wXpuVMytg2JeBU WaX94hwRRgs1Z7ENMvyAjt fCGnBuGwaPC9nK1wFDusez aue9ohmygm Fbwmi6rdii95gB53J89eBL nvCSZyWFX6FRQuOSLkcExp mn8ylG5uOw9+ENjml1gkd4 ouwCi2QfLm KHEwceUnwUqdYFT4o1JlVb 06F0JsxJsoc1VvAnz1nw93 vOCgk8W1sRI5IFnlYEUtyF 1rSPnxHwM3 VJTgKwTefJ83lRRiGVtgOj 8hiNcfrPcxAZ6rFTCpqagb TMTodP9rWTYnzEAtjJmcLF 4wNTBpbjtm o361SqElDGZ6FOFbsTJdX4 JqvN2oSlAyYRHbVQYqY6As pULnKBzyU219GNumOiK3DW XrviNnG4Qt QBNukUodXjZ5v7K1Uu3Ye2 IfomzjRYD7JIeaVGI9LvA8 XwNvNqC1D0FwKtm2BHArcK haKO0yT6Ir MIOugmzxvcstnMI4GJTyMN LimF79gBKxKLpuFj0gq7P7 x665ZIKhHECewI25Nr0leT ogMTBwdCBU qW0vtzctx1zveznvZlAwFS PvODh4WNg3BGAnxTvyUaNc WQE1RkH8VTH6tXIncS7avP brfgincI2b Oyc+A02sjE6hYPO8XVV6ol lqZPZzgrVsLM71NV49D9Fa PjwvdGFibGU+PGRpdiBzdH ssCU6sNmMw y5epe3NdCJgoN1EuYIKrGY ecCwl5MNRoGQM0rXC7pX0n JJVfBEsab4L9kZW0J6Upol Qspd7gn3vi NLIfBXkwO06svOXvk0B0RG QikID1MGDnaAexSxDxfC55 Oyc+AIOicHgor3YvReorp9 cab3qmsHn7 KdFrCFQlxmRyuPebGTV9n6 PlJy82V76gZTuiZOHrIDEq WJMwTCEudLfjpp1puD1pDo 8+PGNvbCB3 fXW1wO8gFGXaSuM5IIvqL2 01EaOyxTIuBngad6wmh3bq zCw6TsLiKNLpofXyyJclRS M7x6YnXh03 A13nOZilXEPmPAZbXSBoSO FbvUtvof8rvQ0fMz3+PC9j n4bkdm15kU22gPT+PHRkIH M7zMaqAWre PQUlqS7xCOobFuA2PQWvCe PsdM74xXPlAKsoXh1uzEcv mVqwLM3zPKCvpsgxz135Hs Uhx7ftFKEn lHBnKXqsBDQ0W95vy0G5BB MuJEWqARR5wHU1cI2lfPnj bjogbGVmdDsgdmVydGljYW clHLtwW615 IHRvcDsnPlBhdGllbnQgTm SrBXy7N8NrFyi5ZCCpfIvk MY6zvDQuEUmtZe6inAmusF llKD5zMZEw hnbyh455UdUsk2peUJVuxM HbGSssXOP6W83mg7N5PWPz MROqPXU5cHW8gO4giZegqw ogbGVmdDsg vyOygExsEXuyFLmbQ498VA RvcDsnPkJpcnRoIERhdGU6 PP97GQ72iMQpx3W2cHE7S3 BhZGRpbmct kucdrGY2UPEvDHHvsM15Fl 3faWcpZc5eJAKhDNI4LMZr jSLdG1MatH9xGeRoILLkRJ JwB7KejNJp LSklJ046IBatAdB5IOIcle HnY5PaIXDbyHxhOrV4g2N7 Nd2ED1E2GQ21HL07nSUpq1 B0bZN0T8Dl XIDvntttikxviRX1JMXkKZ XinB59Ck3qhMksCm2fGTPt OUM9QINkgHEwL3JhhV6vVr AjMDAwMDAw N9TrvINeOTcfH060ELneUg M9MGGyudYpX1NqWHPowLsg NwI4r9Q2Kf0MAZd1TO31WB 83rFLzp7J8 sHY5H3ZpWZMnnnicbdpbtR K3OSCiSACabQ13Tl9kjWyj Li3oNXQtBQW7ZZWgmEVhP4 ZsxE9rXmDa JKKyYUErW9AwqZMaMChrA0 13LYbnMvK7TCPrjnFbE6Bz NGSocYoeEoS2j7A6Vr6GBV SoFP42OQS5 gQW9KR17JL68N6LzKiurhD FibGU+PHRhYmxlIHdpZHRo ZZfpOZClZtOgbBqkIP6sWp 9yZGVyLWNv tRzpyFYaCiAsp0jyLNWrHB xbNO1wtQbpI6JpfBB0BCRg e8f9Yr93I34zE6BcpIB+PG RikPV7dRL7 iU0uJbXjDjQ2QPvnX609Xk UitMCsJmadm3ahh6ukdTm4 NeK4UCXzsiIfeZfcVMD5j5 UlLs56H59n IHdpZHRoPSIxNSUiIHZhbG eyhr6nwB8gYo4+PGNvbCB3 yNO9mT3aRaWiHwR7PQeeN3 49InRvcCIv Prifv2wfk0lmsOb7IbDgEP XoakLjzDpqSXY4k8SrFo74 N4LuiPptz7KdJlc1gi68gC Vpn0J9vKI9 I5KfTYNlohsrmMLluRsqLO 0jRLDbafhfDESwyR1sGGYv F3c6XvBtHqY3FKdeH5Wcby C4WAUngJZb GKrmDGE7M06xe2S2ELGpYT SgRQZ2eIQ3kY2mhFwlxplh bGVmdDsgdmVydGljYWwtYW laS566YNOe tYqlGJRtuJ8iEJIgjXCwoQ ppSR8xTUWremkxAdiTHVtu IEpBREEgTTwvdGQ+PHRkIH S5bCtuAYtd DPLemX5fBYJhC1z2CgTiEh L5LOirB1QmUDUlhwfaNf73 sR4aZwKjJjS1FJxlV9Sbap F9UACptVYo YNgwNWB6J93wz6I1SHSwVD VmQKG9jCA9iB6cjZwbfmvl bGVmdDsgdmVydGljYWwtYW itM820OFBq qZmfWqM4XeK4MiO4MIM1D3 GaJjj5BIXjeSsdBG8ujVWr CKgqXc6piWqiaMmpRQ6hKR BpbjtwYWRk qV5iTMOkxWKoiIryTL2qXB Uevjahs015DaUxMCW8LSBm pJSkB9DcqS2hKcNiARJgWZ XvW3ApgOKn ULiwA899XZbuNyL8EQYtsp BnG1CuGDPnwDjyKbH3y4F7 Bl1oWLICUUVvgpmvhAO+PH FvXBO5nFyd WLdvGFBbeX6qBRDsN2v6Ov DzFkS2VSuaD5GiBDNjgpya Ch07kF3xTpCuKqX0XYudO0 JplvI9UPOn pEIgXEarNYX3H72op4R7OP ZzZUSkTZH3kXM8zL5vcPse bjogbGVmdDsgdmVydGljYW nhJEsdW425 IHRvcDsnPkZlbWFsZTwvdG Q+HSQoMJV6zAixVAtuEIPv gI2vHAMzK0i3PmOpFcM7CU syU1ZbVLTj zaryTi67dP5xKgZmFkG4WI pcF2BecuH7XLHopTOxAAvg WWS1F24hh1N7EMJeCFBlMP B5gHF6eN0f bGlnbjogbGVmdDsgdmVydG spHYpoXGzfM603FYHymVax XmQiNLDeDN3gsVireBX+PC 14fo51G1If HstjZsf8MYDiPYX8pCP8tY 6cGAYaXWnps6W9dEY5D9Km vtJlqb9hg5bbOCBqHLxwH9 8yaXLnc0J2 ZBZfiSW2CDOeuCbzMtNeoP 93Oyc+OXYxmTvwj7QuFusi g4apj3sgmZo3JuCtGQIatg FsaWduPSJ0 v5PgOj67K91yVDlcTLSyNQ MkHZDgEIPcaNsick9dgH9v Ii8+TTTpnWA7bPG2rH5lDm UrFzL8RLdv M261JtIccZCzIpbeb2byi3 bdcTj1HnLxJWUtmsArbQwf FRS9w7FkJj71P6ZeeNobr1 SvBqk0bg58 rLUyi5P6nEY4Z2IwPKXrjy hquHTvjTgxMO2bCRFomzzi GDDsaJ7jRTHpO6b3TgPsNv U3YJqsH7Dr sbH7IVYhdPZhKIQakSGMsH 6feolnk1xfrgieJgRiNSZi CQv5UKx4GOOfuOguKeUcCZ I3AeT1TXA5 nVPljR6zrWwuoqkjcM2iQi c+TTf2o0gwzABiXY9dhFJ7 PT80GA03sCCbj3F3iWG6G9 BhZGRpbmct hpxyrDQ7WKYuPKGzwB04Od 1dpKoeFl0hMIBaIZM3FSMi rVHeY1JtoP5kTlUhVMYqZO BeL0PwsPLt WBesP402GUddOfJ7HOSfsg RkG9QyWAHibZglHcT0r3K0 Ih8BVH63UP48KM66uGTla8 I9mGA8B1Lu EJDhgmnahmqevFL3AMRbAJ QoxH47Tv7alEivZh0yDWNu BXB2UTOheFBpW5QyaQ5tIr AjMDAwMDAw M7EbvIDmUSuqB369SZyvVy O3LIIwixYxE7BwXNSfkSds MlP3u6R5Qp5TFk73DF65QN 60yYPtd7N9 gTM8I6LfHTPlndoxkdqkoV B0LXMmWDFwsM82Ym9exPis Kh9uELUjDTA6MNFhxCYgA8 JmrU3zXnWv LZDcFSUtN8KxiBAfQStsA0 22FWuqCwB7VDLrkwQiC0Lu NPXzfHocUrO5i1O3Cu5ZGS pypag1O7Qt PjwvdHI+GI52PYMdAP53qG UofXIsb7hhcTe8RfWtAUDm GLL5vYcoFGnxl0AqLIGdO1 9caSMuv9H3 IGNv (more content not included)... Normal [facility] Nonvisit Note - PTon 022 Nonvisit Note - PT Pt did not show for this eval today. ljm Normal [facility] Auto Diffon 02-16-2022 Basophils/100 WBC (Bld) 0.8 % Normal 0.0-2.0 F [facility] Comment on above: Order Comment: Order Added by Discern Expert. Performed By: #### 2 003560, 2272070, 0237356, 46531798, 70056281 ####[facility] [address] [place] [address] Basophils/Leukocytes Auto (Bld) [Pure # fraction] 0.1 E9/L Normal 0.0-0.2 [facility] Comment on above: Order Comment: Order Added by Discern Expert. Performed By: #### 2 520231, 5717639, 5467745, 75231927, 12394709 ####[facility] [address] [place] [address] Eosinophils/100 WBC (Bld) 1.8 % Normal 0.0-8.0 [facility] Comment on above: Order Comment: Order Added by Discern Expert. Performed By: #### 2 877775, 5790383, 4749126, 48675996, 25527440 ####[facility] [address] [place] [address] Eosinophils/Leukocytes Auto (Bld) [Pure # fraction] 0.1 E9/L Normal 0.0-0.5 [facility] Comment on above: Order Comment: Order Added by Discern Expert. Performed By: #### 2 585730, 2437065, 7410173, 33887847, 63462060 ####[facility] [address] [place] [address] Lymphocytes/100 WBC (Bld) 21.0 % Normal 14.0-50.0 [facility] Comment on above: Order Comment: Order Added by Yasmeen Expert. Performed By: #### 2 841135, 4221345, 1962614, 17596889, 43596295 ####[facility] [address] [place] [address] Lymphocytes/Leukocytes Auto (Bld) [Pure # fraction] 1.5 E9/L Normal 1.0-4.0 [facility] Comment on above: Order Comment: Order Added by Discern Expert. Performed By: #### 2 432636, 9440544, 7177389, 22101564, 19882550 ####[address] [place] [address] Monocytes/100 WBC (Bld) 7.4 % Normal 4.0-14.0 [facility] Comment on above: Order Comment: Order Added by Yasmeen Expert. Performed By: #### 2 263033, 5802825, 4508426, 24193518, 20549836 ####[address] [place] [address] Monocytes/Leukocytes Auto (Bld) [Pure # fraction] 0.5 E9/L Normal 0.2-1.0 [facility] Comment on above: Order Comment: Order Added by Yasmeen Expert. Performed By: #### 2 414006, 3195359, 7149187, 35967479, 72681980 ####[address] [address] Neutrophils/100 WBC (Bld) 69.0 % Normal 36.0-75.0 [facility] Comment on above: Order Comment: Order Added by Yasmeen Expert. Performed By: #### 2 167904, 0992257, 0079160, 80383492, 51204532 ####[address] [place] [address] Neutrophils/Leukocytes Auto (Bld) [Pure # fraction] 5.0 E9/L Normal 2.0-7.5 [facility] Comment on above: Order Comment: Order Added by Yasmeen Expert. Performed By: #### 2 860444, 4465204, 6847203, 37397144, 64407647 ####[facility] [address] [place] [address] CBC w/ Auto Diffon Erythrocyte distribution width (RBC) [Ratio] 14.3 % High 10.9-14.2 [facility] Comment on above: Performed By: #### 2 177814, 9277010, 9163962, 79560774, 06756946 ####[address] [place] [address] Hematocrit (Bld) [Volume fraction] 36.6 % Normal 34.0-46.0 [facility] Comment on above: Performed By: #### 2 644119, 7575837, 1252551, 91737057, 81307760 ####[address] [address] Hemoglobin (Bld) [Mass/Vol] 11.9 g/dL Low 12.0-16.0 [facility] Comment on above: Performed By: #### 2 573664, 5591478, 8309053, 17801597, 89030510 ####[address] [address] MCH (RBC) [Entitic mass] 25.5 pg Low 27.0-34.0 [facility] Comment on above: Performed By: #### 2 070908, 0434336, 0230713, 83200230, 90146462 ####[facility] [address] [place] [address] MCHC (RBC) [Mass/Vol] 32.6 g/dL Normal 31.4-36.0 [facility] Comment on above: Performed By: #### 2 834839, 4357994, 6930918, 77319906, 16478865 ####[facility] [address] [place] [address] MCV (RBC) [Entitic vol] 78.2 fL Low 80.0-100.0 F [facility] Comment on above: Performed By: #### 2 244170, 6712379, 8928638, 33553716, 93044343 ####[address] [place] [address] Platelet mean volume (Bld) [Entitic vol] 8.5 fL Normal 6.4-10.8 [facility] Comment on above: Performed By: #### 2 224669, 5401336, 2823267, 84222348, 05013151 ####[address] [address] Platelets (Bld) [#/Vol] 229.0 E9/L Normal 150.0-500.0 [facility] Comment on above: Performed By: #### 2 134046, 5360482, 9666215, 99099094, 11647944 ####[address] [address] RBC (Bld) [#/Vol] 4.7 E12/L Normal 4.3-5.9 [facility] Comment on above: Performed By: #### 2 269599, 9176030, 0853240, 58691384, 19308329 ####[address] [address] WBC corrected for nucl RBC Auto (Bld) [#/Vol] 7.3 E9/L Normal 4.0-11.0 [facility] Comment on above: Performed By: #### 2 172217, 9564461, 7340109, 45619332, 43094958 ####[address] [address] CMPon 02-16-2022 Albumin [Mass/Vol] 3.7 g/dL Normal 3.3-5.0 [facility] Comment on above: Performed By: #### 2 506166, 8916272, 2770083, 87813920, 55084639 ####[address] [address] Albumin/Globulin (S) [Mass conc ratio] 1.1 Normal 1.1-2.2 [facility] Comment on above: Performed By: #### 2 519631, 1800718, 7475227, 67401700, 03694203 ####[facility] [address] [place] [address] ALP [Catalytic activity/Vol] 48 Int._Unit/L Normal 21-98 [facility] Comment on above: Performed By: #### 2 547382, 9317233, 3786236, 76183927, 58432818 ####[facility] [address] [place] [address] ALT No additional P-5'-P [Catalytic activity/Vol] 16 Int._Unit/L Normal 6-46 [facility] Comment on above: Performed By: #### 2 524971, 7989348, 0882046, 61082386, 64838902 ####[facility] [address] [place] [address] AST [Catalytic activity/Vol] 15 Int._Unit/L Normal 5-43 [facility] Comment on above: Performed By: #### 2 058082, 3570303, 4528775, 12671659, 17227211 ####[facility] [address] [place] [address] Bilirubin [Mass/Vol] 0.6 mg/dL Normal 0.0-1.1 [facility] Comment on above: Performed By: #### 2 975976, 2311223, 5207038, 69783870, 54762270 ####[facility] [address] [place] [address] Creatinine [Mass/Vol] 0.7 mg/dL Normal 0.5-1.3 [facility] Comment on above: Performed By: #### 2 686317, 0450967, 4261498, 70057267, 07703037 ####[facility] [address] [place] [address] Globulin (S) [Mass/Vol] 3.4 g/dL Normal 1.4-4.0 F [facility] Comment on above: Performed By: #### 2 443442, 6232235, 4726249, 31864240, 13283305 ####[facility] [address] [place] [address] Protein [Mass/Vol] 7.1 g/dL Normal 6.0-7.8 [facility] Comment on above: Performed By: #### 2 850675, 5650031, 3780218, 26260481, 06123925 ####[facility] [address] [place] [address] Urea nitrogen [Mass/Vol] 9 mg/dL Normal 5-21 [facility] Comment on above: Performed By: #### 2 652530, 7622479, 9180122, 58858065, 17364852 ####[facility] [address] [place] [address] Urea nitrogen/Creatinine [Mass ratio] 13 No Units Normal 10-20 [facility] Comment on above: Performed By: #### 2 366423, 4357148, 7575564, 14714872, 98597342 ####[facility] [address] [place] [address] Anion gap [Moles/Vol] 13 mmol/L Normal 6-16 [facility] Comment on above: Performed By: #### 2 700391, 9999751, 0423914, 79990467, 99404321 ####[facility] [address] [place] [address] Calcium [Mass/Vol] 8.7 mg/dL Low 8.9-11.1 [facility] Comment on above: Performed By: #### 2 954803, 1185966, 3647820, 00595297, 31504295 ####[facility] [address] [place] [address] Chloride [Moles/Vol] 106 mmol/L Normal 101-111 [facility] Comment on above: Performed By: #### 2 288088, 3635454, 3995508, 63211075, 85786098 ####[facility] [address] [place] [address] CO2 [Moles/Vol] 24 mmol/L Normal 21-31 [facility] Comment on above: Performed By: #### 2 734785, 9025229, 8857782, 65381670, 46551680 ####[facility] [address] [place] [address] Glucose [Mass/Vol] 98 mg/dL Normal 55-199 [facility] Comment on above: Result Comment: If t his glucose result represents a fasting glucose, interpretation should refer to the following reference range: 55-99 mg/dL Performed By: #### 2 096234, 0633715, 5388516, 94326278, 15388748 ####[facility] [address] [place] [address] Potassium [Moles/Vol] 3.8 mmol/L Normal 3.5-5.3 [facility] Comment on above: Performed By: #### 2 016230, 0413288, 1458681, 10049707, 63543346 ####[facility] [address] [place] [address] Sodium [Moles/Vol] 139 mmol/L Normal 135-145 [facility] Comment on above: Performed By: #### 2 932181, 8336079, 3769152, 93995311, 78767171 ####[facility] [address] [place] [address] Consent for Treatmenton Consent for Treatment [id number] 2059 [id number] 0CD:127 Normal [facility] Discharge Instructionson Discharge Instructions [id number]:127 Normal [facility] ED Clinical Summaryon 2021 ED Clinical Summary [address] [address] ED Clinical Summary Person Information Name: LEENA INTERIANO [place] Age: 31 Years : 1990 Sex: Female Language: Sign Language PCP: BENTLEY LUCERO CNP Marital Status: Phone: [phone] Visit Id: Visit Reason: Headache; Cough; Chest [...] 02/16/2022 13:29:49 02/16/2022 13:29:49 02/16/2022 13:29:49 ADDRESS: [address] [place] [id number] PHYS DOC NOTES: MEDICAL INFORMATION: Prescriptions Given: New Medications Tonsil [facility] [address] [facility] [facility] [place] [id number], [phone] benzonatate (Tessalon 100 mg Cap) 1 Capsules By Mouth 3 times a day for 7 Days. Refills: 0. Medications to Continue Taking That Have Changed [facility], [address] [facility] [place], [place] [id number], [phone] START: amoxicillin (amoxicillin 500 mg oral tablet) [...] PATIENT EDUCATION INFORMATION: Instructions: Otitis Media, Adult, Ofal-su-Ptra Follow up: With: Address: When: BENTLEY LUCERO CNP [address] [place] [address] In 3 days 02/19/2022 DIAGNOSIS: 1:Right otitis media; 2:Cough Normal [facility] ED Note-Physicianon 02-17-20 ED Note-Physician Basic [...] chest pain x2 days. 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 Physical exam shows right otitis media, dental [...] her that she can continue to use rehw-mzq-saapazb medications like Tylenol Motrin and Mucinex for symptom control. She is to follow-up with primary care provider. Patient is agreeable. Assessment/Plan 1. Right otitis media (H66.91: Otitis media, unspecified, right ear) Ordered: amoxicillin, 500 mg = 1 tab(s), Oral, TID, X 7 day(s), # 21 tab(s), Refills(s) 0, Pharmacy: [facility], 165.1, cm, 02/16/22 10:59:00 EDT, Height/Length Dosing, 86.5, kg, 02/16/22 10:59:00 EDT, Weight Dosing 2. Cough (R05.9: Cough, unspecified) Ordered: benzonatate, 100 mg = 1 cap(s), Oral, TID, X 7 day(s), # 21 cap(s), Refills(s) 0, Pharmacy: [facility], 165.1, cm, 02/16/22 10:59:00 [...] 02/16/22 11:21:00 (more content not included)... Normal [facility] Comment on above: Result Comment: Elec [...] Follow these instructions at home: ? Take fbiv-gkl-npruxph and prescription medicines only as told by [...] 02/16/2009 Document Revised: 08/13/2018 Document Reviewed: 09/21/2017 Else[employer] for Good Patient Education ? 2019 [employer]. Normal [facility] ED Patient Summaryon 022 ED Patient Summary [place] [address] Patient Discharge Instructions Person Information Name: LEENA INTERIANO Age: 31 Years Arrival Date: 02/16/2022 10:48:47 Discharge Diagnosis: 1:Right otitis media; 2:Cough Primary Care Physician: BENTLEY LUCERO CNP Provider Information Primary Provider: Connor Castellanos DO Advanced Fishing Rod Marker:Cary Archuleta PA-C The exam and treatment you received in the Emergency Department were for an urgent problem and are not intended as complete care. It is important that you follow up with a doctor, nurse practitioner, or physician?s first assistant manager for ongoing care. If your symptoms become [...] Address: When: BENTLEY LUCERO CNP [address] [place] [address] In 3 days 02/19/2022 In the event that this physician does not participate in your insurance network, please consult with your insurance company to find a nearby participating provider. Patient Education Materials: Otitis Media, Adult, Spnh-ey-Lnuc A MESSAGE TO ALL PATIENTS REGARDING OPIOIDS PRESCRIPTION OPIOIDS: WHAT YOU NEED TO KNOW Prescription opioids can be used to help relieve crfxijrg-nc-yungjp pain and are often prescribed following a [...] be struggling with addiction, tell your health resident caregiver and ask for guidance or call [facility] National Helpline at 4-350-565-IGFJ. m Source: Department of a (more content not included)... Normal [facility] Influenza A&B Agon 2 Influenzae A Ag Negative Normal Negative [facility] Comment on above: Performed By: #### 2 [id number] ####[facility] [address] [place] [address] Influenzae B Ag Negative Normal Negative [facility] Comment on above: Result Comment: Test sensitivity and specificity vary for age group, specimen type, antigen types, and prevalence of disease. Test results must be evaluated in conjunction with other clinical data available to the physician. Individuals who received nasally administered Influenza A vaccine may have positive test results up to 3 days after vaccination. Performed By: #### 2 [id number] ####[facility] [address] [place] [address] Prescriptions/Work Noteson 0 02-16-2022 Prescriptions/Work Notes [id number]#1. 00CD:127 Normal [facility] Rapid COVID Antigen ([facility])on 02-16-2022 Rapid COV Int NEG Ctl Pass Normal [facility] Comment on above: Performed By: #### 2 [id number] ####[facility] [address] [place] [address] Rapid COV Int POS Ctl Pass Normal [facility] Comment on above: Performed By: #### 2 [id number] ####[facility] [address] [place] [address] SARS-CoV+SARS-CoV-2 (COVID-19) Ag IA.rapid Ql (Resp) Not detected Normal Not Detected [facility] Comment on above: Result Comment: The Shopparity System for Rapid Detection of SARS-CoV-2 is [...] or revoked sooner. Performed By: #### 2 [id number] ####[place] [address] ADMITTED TO INTENSIVE CARE UNIT FOR CONDITION OF INTEREST:FIND:PT: NO Normal [facility] Comment on above: Performed By: #### 2 [id number] ####[place] [address] EMPLOYED IN A HEALTHCARE SETTING:FIND:PT: NO Normal [facility] Comment on above: Performed By: #### 2 [id number] ####[place] [address] FIRST TEST FOR CONDITION OF INTEREST:FIND:PT: Unknown Normal [facility] Comment on above: Performed By: #### 2 [id number] ####[place] [address] HAS SYMPTOMS RELATED TO CONDITION OF INTEREST:FIND:PT: NO Normal [facility] Comment on above: Performed By: #### 2 [id number] ####[place] [address] HOSPITALIZED FOR CONDITION OF INTEREST:FIND:PT: NO Normal [facility] Comment on above: Performed By: #### 2 [id number] ####[place] [address] STATUS:FIND:PT: NO Normal [facility] Comment on above: Performed By: #### 2 [id number] ####[place] [address] RESIDES IN A CONGREGATE CARE SETTING:FIND:PT: NO Normal [facility] Comment on above: Performed By: #### 2 [id number] ####[place] [address] [place] [address] Rapid Strep w/rfxon 02-17-20 22 S. pyogenes Ag IA.rapid Ql (Throat) Negative Normal Negative [facility] Comment on above: Performed By: #### 2 [id number] ####[facility] [address] [place] [address] Troponin 0 Hr.on 02-16-2022 Troponin I.cardiac [Mass/Vol] ng/mL Low 10.10-27.10 [facility] Comment on above: Result Comment: The 95% CI (Confidence Interval) PPV (Positive Predictive Value) for myocardial infarction in females is 38 pg/mL, in males 51 pg/mL. The results should be used in conjunction with clinical conditions of myocardial infarction. (Access High Sensitivity Troponin I Instructions For Use, [employer], April 2018) Performed By: #### 2 [id number], [id number] ####[facility] [address] [place] [address] XR Chest 2 Viewson 2 XR Chest [...] Transcribed by: MARÍA ELENA Technologist: AYALA Gonzalez [facility] eGFRon 02-16-2022 GFR/1.73 sq M.predicted among blacks MDRD (S/P/Bld) [Vol rate/Area] mL/min/{1.73_m2} Normal >=59 [facility] Comment on above: Order Comment: Order added by Discern Expert. Result Comment: eGFR is race adjusted. AA=. Performed By: #### 2 [id number], [id number] ####[facility] [address] [place] [address] GFR/1.73 sq M.predicted among non-blacks MDRD (S/P/Bld) [Vol rate/Area] mL/min/{1.73_m2} Normal >=59 [facility] Comment on above: Order Comment: Order added by Discern Expert. Result Comment: Corporate Auditor chance kidney disease could be indicated at eGFR's of less than 60 mL/min/1.73m2. Kidney failure is indicated at less than 15 mL/min/1.73m2. Performed By: #### 2 [id number], [id number], [id number], [id number] ####[facility] [place] [address] Coding Summary.on 01-15-2022 Coding Summary. CD:[id number] Gh 0bWw+PGhlYWQ+QN1GVLLlO 38smKBatG9PU3dIVV6HJKZ VPKOEDA9KVL2tdUC2OXmkI 2VybiAv AixgqQAzDG92BKs2ZNJ2xE syCXptxK3mgBArM9i9TkNd DJ03zE50WUrtJQYtZvQ6Se ZpbjsgbWFy I3kfEzMwmRQqQft+PHRhYm xlIHdpZHRoPScxMDAlJyBz lTygVL3jMf1hGDGgKDHmaE xhcHNlOiBj n4avLGFtWTbyTP3ihNgpU0 UcdZA3YTGqz7n0Es94aDU+ RYZfBWT4zTwuWRput678Uc Nqr1xbWOI7 dGGiWNosBPP1I24bo9R1NB KiXIGoZJI0gBP4pX5rmWsn blcaP9KjgRNoIrY0JLS7pP HomA5bvQzl eaehcY6aUeb+W42BHY9QWQ HKEK2FZfg4K2TlPxjxeOT+ TZ42SYJrHI32eXBpjNEkf1 autJo7UlPl JYGkREN0yZbtFDlru9YqYE ZyC37tvERtk7U7BFUvkBhz dWTzXcThdWR0hA2kDMvyjh vxh6ncjvbe Edzgy6gbax12eD44V05iHS zcHFRaTCO4ARRpVMGqmNws zv6neL9hXw2+MEljn0usv3 zqeCs9WaAn ZCNtpzTgbYkfKPP8i9OxZb 48Z9XhmGhuk4LcSek3it88 xSErw7B7uVE1UQhrGKZftX 4fPQwnHvN9 LWXhPiOtyF33aWFxTKweFe 6hwVysgSwhAK9uDIWyiatl YDRjzF5jAPYgcRWoqZbnIS 4wNTBpbjtm q155HvHdQAC8FCQfdVFxO1 UlaD2rDoQiOOOpPRKwH9Ru pICrPJihU791MIwpXxP1VR TqpsRyY2Bs XWTxxOnhJzS2m1N9Dn9Bs6 NvxjbuLVY2FAljAIL1TrF5 ZbAyOsO0M8VxIru7BXLmvP sqMY1fH9Ym GQDydzqxkosioTH7RHLfBM MkqM89hOCoCNacMm5xa8Q4 f582YJLvRIVbvD16Zj4trW ogMTBwdCBU sB1kedesi9rxkyxsUiAqSS GdRVz7TCf9CGLqqWhkNsQe WJA9XuS9DDR9qFIavF4hmN eqnpqllZ7c Oyc+V78mzX5yTLW3CWV0wx bpEMOwpnEsZH65ZA68F1Mj PjwvdGFibGU+PGRpdiBzdH xtPP9fBuXd p5ibu8EsRWqtQ2HdIZGyKH qnVog1CNDaJOB0aCP0hO6i FNWnATmgj2F4wDK2Q2Wdox Swic3if1ji YSOiGYqgH30fmONvf7O8RW NteND0RTBbcIovGoLvoN79 Oyc+PVSbyCoke1TkSbpgi5 gkc3jfwCm0 YvDdQWRfvtDezEywVPK7h9 MnIe00Q66zJGkeXOCdLXNu JBGtTUQwfNouyc2qaN8tTc 8+PGNvbCB3 cAB9gP1dLCEbAlR4OJboV9 26CbWvaAKcVtblp0gcl2bj xNy8FsShWWKclnYtmCfkKK J4z2MzCz74 A19rRBirPKSxQDKjOUYmXH FhtHrids5bpM5yUi0+PC9j h0ggim53sC98kMJ+PHRkIH B6iBtiDFku NNLlwK8zOMvcDaK0ZIJrLt IgnJ24bPXlSSuqBr7ieQhs sVvvOT6wTXRhtdyzl387Vo Ini0scTRFd kZOlIEqpOUL3C12zl3J9QO OzSGQsBHE0fZD3qN8tcJeo bjogbGVmdDsgdmVydGljYW lcRYgcS935 IHRvcDsnPlBhdGllbnQgTm JjCFy4H6XaXip9HWKcnDgl WD5acHPyLAahOy3vrMsfeI kgPB9uXZTl xviqp567FlGtx9yvOUZypS FtVHogYCD8H13eh8F3MAWr KHKxIZL4aHY1yR9msTuieq ogbGVmdDsg ajLpuEhtLSnvGCqmD572NP RvcDsnPkJpcnRoIERhdGU6 KN33AG77lFJye8B9jLY6D1 BhZGRpbmct zloliUG0ZAQpSMVtrP32Hc 5cvShfIi7aTCVeIFX3QKZr ePVaR1VawC8qWkEtHQMlTG UwW7JiyGKn ETshP055TMakLuE9FDWrwy ApR7JuHEFzmQgyDmP0t4J2 Ib8GR7E1TY81ZD30yVNmu0 J9mEP0B7Rl YJKjpaivgchjdJK2VRNcDF RasZ99Vp0kyEufBd8pLUSk BBQ0FYLeiAXcA3LzxE2iNa AjMDAwMDAw G3XzeDAwOQdgF559AWnsSz H7IZZggvPbT0SyZCNcrTmg TtD1n2M7El7CTUc1HZ56NK 44nCLzo5I3 jMR0B6PiEAPibefrrombzG M6ZTDkTHTiuF82Gq4iiPji Sr6qBHXtNCX9TOKehTAzN5 WaoZ3pMjZr NZTcRRPhC1JfxSSkIWhaA7 17MRctJpD3RBPiwyAnZ0Oj AMIjxEepClP5t2Z4Dt2POV QzUZ65VJT9 uHO3DY24PT33N5VsFixpbV FibGU+PHRhYmxlIHdpZHRo ENyuIELiJhGniPhtWY5sMy 9yZGVyLWNv wDqzwHDuLyQkh9neVLLdNE gwQR0ycFmmE4IedCQ5AWOt l0n6Xb04E34jO2KyiUC+PG GhnQI1sDK6 bZ4qCrOkAjZ6JXteF714Wg NhuFEjWlmnb9hsc5qdiAs8 BmN2LRHjffCtfJmhFNQ2b1 JoTw37D32i IHdpZHRoPSIxNSUiIHZhbG osfc7uhP8jIw2+PGNvbCB3 oQU1gR0dMwUzCvE8TWpsX4 49InRvcCIv Eptfz6skt5xcuAn4IqMnKC DqwbPkfZiqMUP9f6LlGw38 P8ZaiIqbp7QnZfj3gi85qX Fih7L6pZF2 M2TqRCScsvnmvKHwvPukCN 0gCURmqcbsTHTcgA3cUTBn Q3w8UnNuBsA6UVbwD6Psxk E8TDSwqMHm ZTtsIKT2X36oh0S9VGEwNK YoOJD6dHU0mW8syKtiwiej bGVmdDsgdmVydGljYWwtYW njB528LFDh iNfvAZOnhW7aIAAbnMRdsK gtIU0oOWSnatmyZljXOTqg IEpBREEgTTwvdGQ+PHRkIH J6sAqkAWtc PMNdyX0gFSZiO4o4OkNoXb Y3ZVheV5BlIAHdtghvAu89 nY8uJqLbTaP2MErcP1Pzfy K1TSWjeJSl NKzjOSU0O66fw4J3JLHrNW YgIDT2iEP6pC8ohEdrawdy bGVmdDsgdmVydGljYWwtYW pfW882UVKy xCnyCuW3HuK4KmK8IKR7Y6 NtFno6USNdxNbmVE2xcANr NArcCu8xhXglrCvqUM9bKH BpbjtwYWRk cR4cOVWgmYQsbJpfDQ5qLS Pjvzfxk881XvWhHQP6YBZn hWHeF7FvaK1lJfPrTVBhNO KsD8JjjGKy MErfL946ZNocLjQ1EHDpfp LbM2UvHLJogElxVwR7n7I1 Px0nGWTKPJFedxnysEI+PH HbUDH5aIug NQmjYJMvoU4wGBClG3d1Ex OhXiU7QWjqJ8NpZVLyspem Jp99cB3xVaCjKcW6OMwdY9 EydeN7EGJm rVQbZGkxNLV2X28vm0M9FB IbTFEwJBR2lGO1rV3qzPzm bjogbGVmdDsgdmVydGljYW vlZLxyZ928 IHRvcDsnPkZlbWFsZTwvdG Q+QLKaTRW1jPtfYFjwYNAl aY8dGZYvU0c6PsKhQuS4JB ulD5PjKNVz bnfeKf09xQ2tOkMtXsA8TF hvM8EszoJ9XUZziJXaORuf XFC9N89ti7R5ACHuPIGuKW F5rOK8jK2l bGlnbjogbGVmdDsgdmVydG hcNAfpWMcrJ034MMZmwGsq BrSlRSXfQC4ivOmkuHO+PC 38ug00B7Lt LdqmEec0TZNqERY0tKL5xT 1wTCFmNHcnd7S5lBK2S9My yyNrlv8ig7qsIHNuORbrA0 5ygDYlo5Q1 BDNofYO9FUVfkZxnAyEujM 93Oyc+NXWshBsht6VkAudn a7zqi5pqiBa5TmOiWMNadr FsaWduPSJ0 q6ZdAs62J93fPRqsBSUfRI GlEVPvXXJyxLpxxk8loI7i Ii8+WAOfgLN7tJW2bH9yYm ApGrQ8VKdb Y167NmUhrOYeVqkto7bne6 oeeVh5OsMqMHXyncXqsKhl HRQ1w7HxBq62G9BhtKzgb8 PgVoh2mz15 iFRja8E6eQA1L6DyXOKudp efvTOezCqgOI2cDIMrmvcj GIGedZ2qQHYtY6k8HkTkWk K6QPkbN7Ng rnR5SYHegEYoVGOmvTXXgC 4sgevgq3zukskqWeMdHDHv IMy2VAz8DHZaqXmyZhEpOE N0PtP6GWU2 hROilL6afUqeopngsD5lIi c+GEd1q4chcWPqCF3xfUB9 WB15XN48sLHob0R6bSE0C9 BhZGRpbmct nigtkZA8XSYfHRFkhS47Hm 5vzRosRz2hPPCzDLU6PMIm mUSuB9CnwG1oHlTlUIDpNB RfN2CodRNv LQunC136IDckApF6NHPvzu CtX3VcEUQmvItdGvB7s0S7 Ze4EHL75FQ04UN43qMDxv2 M1qES9E0Hq JULfrinkupnhnYY8TZAaEV GapU73Cl9ueZwtCo2nNFOo PIJ4TAAzrEPsJ9MmnT9nTg AjMDAwMDAw G7YgiSIbHLmpR184JQuoQa V2DLEucwOrX1TqUCFvmQpl XnD0n1M5Ys1MNp16RK83WT 77mSPar2H5 nXC3Z5RfYSJlodtktyrwuN Z7LNAyYTCrkA39Ck9pxIvt Zj5tXNMfQZS0DWEzvBMwP0 IegC5hAvCx XYQqTZOqK1ZihUOiFFvxB5 82OPviFjG1EHOmfoMlP5Pr YPOrzTkbRyK6t8H9Xi9QDT bihgc5C5Nz PjwvdHI+IR10EUGeLT87pX RjgCUtg1evnSx5RyNcQGUu LLY8xEvtLIoiz6HsWFEfT2 1aoJMoe3P5 IGNv (more content not included)... Normal [facility] Discharge Instructionson Discharge Instructions [id number]#1. 00CD:127 [facility] Comment on above: Other Comment: WRONG FOLDER Prescriptions/Work Noteson 0 01-14-2022 Prescriptions/Work Notes [id number]#1. 00CD:127 [facility] Grp A Strp PCRon 01-10-2022 Grp A Strp Intrl Ctrl Pass Normal [facility] Comment on above: Order Comment: Order Added on by Discern Rule. Performed By: #### 2 [id number], [id number] ####[facility] [address] [place] [address] S. pyogenes rRNA Probe Ql (Unsp spec) Negative Normal [facility] Comment on above: Order Comment: Order Added on by Discern Rule. Result Comment: Test ing performed using DNA amplification. Performed By: #### 2 [id number], [id number] ####[facility] [address] [place] [address] Consent for Treatmenton 12-14 Consent for Treatment [id number] 0CD:127 Normal [facility] Discharge Instructionson Discharge Instructions [id number] 0CD:127 Normal [facility] ED Clinical Summaryon 2021 ED Clinical Summary [address] [address] ED Clinical Summary Person Information Name: LEENA INTERIANO [facility] Age: 31 Years : 1990 Sex: Female Language: Sign Language PCP: BENTLEY LUCERO CNP Marital Status: Phone: [phone] Visit Id: Visit Reason: Throat pain - [...] 01/09/2022 15:57:51 01/09/2022 15:57:51 01/09/2022 15:57:51 ADDRESS: [address] [place] [id number] [facility] DOC NOTES: MEDICAL INFORMATION: Prescriptions Given: [...] With: Address: When: BENTLEY NIC [address] [place] [address] [employer] In 3 days 01/12/2022 Comments: You should self quarantine for 5 days. Return to the emergency room if your symptoms get worse, you develop chest pain, shortness of breath or any new symptoms. DIAGNOSIS: 1:COVID-19 virus infection Normal [facility] ED Note-Physicianon 01-10-20 ED Note-Physician Basic [...] PCR Influenza A&B Ag Rapid COVID Antigen ([facility]) Rapid Strep w/rfx Medications Administered Given ibuprofen 600 mg Tab, 600 mg, Oral Disposition Plan Patient Discharge Condition Stable Discharge Disposition Discharged home Discharge Prescription List Prescriptions No active prescription medications Follow-up With When Contact Information BENTLEY LUCERO In 3 days 01/12/2022 EDT [address] [place] [address]- Business (1) Additional Instructions: You should self [...] Diagnostic Results No qualifying data available. Normal [facility] Comment on above: Result Comment: Elec tronically Signed By: Paul Moss, Devendra H\.br\Date and Time Signed: 01/09/22 16:32 EDT ED Patient Summaryon 022 ED Patient Summary [address] [address] Patient Discharge Instructions Person Information Name: LEENA INTERIANO Age: 31 Years Arrival Date: 01/09/2022 13:49:16 Discharge Diagnosis: 1:COVID-19 virus infection Primary Care Physician: BENTLEY LUCERO CNP Provider Information Primary Provider: Devendra Miller M.D. Advanced Fishing Rod Marker:None The exam and treatment you received in the Emergency Department were for an urgent problem and are not intended as complete care. It is important that you follow up with a doctor, nurse practitioner, or physician?s first assistant manager for ongoing care. If your symptoms become [...] Instructions: With: Address: When: BENTLEY LUCERO [address] [place] [address] [facility] () In 3 days 01/12/2022 Comments: You [...] opioids can be used to help relieve fbgvkrei-js-coiqgp pain and are often prescribed following a [...] If you (more content not included)... Normal [facility] Influenza A&B Agon 2 Influenzae A Ag Negative Normal Negative [facility] Comment on above: Performed By: #### 1 [id number] #### [facility] [address] [place] [address] Influenzae B Ag Negative Normal Negative [facility] Comment on above: Result Comment: Test sensitivity and specificity vary for age group, specimen type, antigen types, and prevalence of disease. Test results must be evaluated in conjunction with other clinical data available to the physician. Individuals who received nasally administered Influenza A vaccine may have positive test results up to 3 days after vaccination. Performed By: #### 1 [id number] #### [facility] [address] [place] [address] MICRO OTHER TESTSOrdered By: Ramses Camargo on 01-09-2022 Influenzae A Ag Negative (01/09/22 2:21 PM) Normal Negative [facility] Man Sero Influenzae B Ag Negative (01/09/22 2:21 PM) Normal Negative [facility] Man Sero Rapid COV Int NEG Ctl Pass (01/09/22 2:21 PM) Normal [facility] Man Sero Rapid COV Int POS Ctl Pass (01/09/22 2:21 PM) Normal [facility] Man Sero S. pyogenes Ag IA.rapid Ql (Throat) Negative (01/09/22 2:21 PM) Normal Negative [facility] Man Sero SARS-CoV+SARS-CoV-2 (COVID-19) Ag IA.rapid Ql (Resp) Detected *ABN* (01/09/22 2:21 PM) Invalid Interpretation Code Not Detected [facility] Man Sero Rapid COVID Antigen ([facility])on 01-09-2022 Rapid COV Int NEG Ctl Pass Normal [facility] Comment on above: Performed By: #### 2 [id number] ####[facility] [address] [place] [address] Rapid COV Int POS Ctl Pass Normal [facility] Comment on above: Performed By: #### 2 [id number] ####[place] [address] [place] [id number] SARS-CoV+SARS-CoV-2 (COVID-19) Ag IA.rapid Ql (Resp) Detected Abnormal Not Detected [facility] Comment on above: Result Comment: The [employer]? System for Rapid Detection of SARS-CoV-2 is [...] or revoked sooner. Performed By: #### 2 [id number] ####[facility] [address] [place] [id number] ADMITTED TO INTENSIVE CARE UNIT FOR CONDITION OF INTEREST:FIND:PT: NO Normal [facility] Comment on above: Performed By: #### 2 [id number] ####[place] [address] EMPLOYED IN A HEALTHCARE SETTING:FIND:PT: Unknown Normal [facility] Comment on above: Performed By: #### 2 [id number] ####[place] [address] FIRST TEST FOR CONDITION OF INTEREST:FIND:PT: Unknown Normal [facility] Comment on above: Performed By: #### 2 [id number] ####[place] [address] HAS SYMPTOMS RELATED TO CONDITION OF INTEREST:FIND:PT: YES Normal [facility] Comment on above: Performed By: #### 2 [id number] ####[place] [address] HOSPITALIZED FOR CONDITION OF INTEREST:FIND:PT: NO Normal [facility] Comment on above: Performed By: #### 2 [id number] ####[place] [address] STATUS:FIND:PT: Unknown Normal [facility] Comment on above: Performed By: #### 2 [id number] ####[place] [address] RESIDES IN A CONGREGATE CARE SETTING:FIND:PT: NO Normal [facility] Comment on above: Performed By: #### 2 [id number] ####[place] [address] Rapid Strep w/rfxon 01-10-20 22 S. pyogenes Ag IA.rapid Ql (Throat) Negative Normal Negative [facility] Comment on above: Performed By: #### 2 [id number], [id number] ####[place] [address] Coding Summary.on 11-26-2021 Coding Summary. CD:[id number] Gh 0bWw+PGhlYWQ+IJ1SIHHwC 65zkHExcY2CB1pSTL6XQOD OBTMJPT8RQY0xrFH9ZWqoU 2VybiAv NvowjSRiQY69GLk7TSZ6rJ abMJsrnF5qfSMiJ2u1ElXu RH37gU93RKdlMMSnGkN0Ky ZpbjsgbWFy T5bsSkTsrORxAxi+PHRhYm xlIHdpZHRoPScxMDAlJyBz uQtjVV5vXz7pAPQzIMDpyH xhcHNlOiBj i8hoLPWxFXakMS5aaLikZ7 QymSW2KPRqb2q7Xy21zVB+ EVOnXZN2aThuUHnmw852Om Ajg9zjKUH5 vWFvTDlrVNA2M47xs3G4EA PwLXWdNNV8nSJ4sB1xfWyh lolaA9QmuLHrIpL8TXD9dS NkqX2ijZpf wcwfvU3cVuv+M58PJG9PQZ OVLO8BWgt5N5IpYjmydEF+ EJ28WDVpNF43bHObuPHmj4 lmxYe9HeOa ATRnQZZ1nSlrJQjxl4KiFQ FxJ84xnTPww7K1IXFxdFdj nOStVqTkpYP3tN2oSXoavm woe0iudfnv Fkbup8ekdq86uO00H00zZU iiTKHzGXF1DJCsKOLczZgc uu3qkI3rPe2+VJaqv3hym5 zxgJt2DkDg ZDEtqpDpaLciKMR1b6EoBg 23O5OgsIckk4ZxWmh7yu21 nXRew4U9iRD6IBnsKXEjaY 7oUCcvRiP6 HDZoRfXcvE18iXVdLXpqFi 0hjMyppKmiSW8cRLGsuapn DNRfcY4qWHWqmXBzzYxySJ 4wNTBpbjtm u084DuOmCVU4BFVgjLRxK2 XnkA8tTvOiQJYuEXDgK3Je qFJxWZxaS914CUjrBnI4JN TfmsKyA4Xz YAOriIbfReT4f0T4Ht2Ll3 CeafbdBRN1ZJfcZNLfLsY6 GzPqXqB8L4XtLav9WZLrlT nfSQ8sN7Te ZUOvebtecceyhUZ9FKGpTN WmtL38zLTwIGnnCq6wu8P6 m171OIFwDYHtmL05Tj0fpB ogMTBwdCBU zI9ozdwha7wxtspqFoOdKE UnUWz7VZp4GKDvcNeaBnJr OSN7HaG1MON6lRUqdL5hzI hyqmmceU8r Oyc+M03ugF2iGPE6DFR4jw jgWAHtcvOhZF27NP48U8Hy PjwvdGFibGU+PGRpdiBzdH yuOY4dWhRk e3cjt5IwSAopD6TxZOYcDY xhTxj9TAXfAYT3tEY1mS0f AHZzDZjxq2U3nSN2R3Dxda Zkdm0rq6ks VWNtRKtuY90nkOShr3O8QQ HieLF9SQZvnQszWiTjqK07 Oyc+JHOsaIeim7ZlLffjy4 sfj9odcHh4 KnTyJJGcmlGmnCvvZVS5c4 RqDj28G96oRLueMIQlKJDs DIPhVAWhcOuzqd5kvF1zMz 8+PGNvbCB3 eCE7qD0aOLSgYtC6RXswF7 17XaDwvSFyUdbma0sia1gw vOj4YwJnEGMzdwHvuAgkRS W9w7SrXc93 Y10iRKqsKOGtWEPqYMKaMH LadCntoo2sfH5cVx4+PC9j y7dlze24qK83wKY+PHRkIH X1sBlbJVvw DUNnkN7pNGngYpC1HGCdJh HlbH84xQFlPGmbQh0cuVwv oJgrCJ6uUVWfdscuh638Hw Cnm9pxQLUx qGWpIFtsQSQ6D99zn3S2UL LwCFLrNEC0wOT1hW9doRsc bjogbGVmdDsgdmVydGljYW lmZMqtV663 IHRvcDsnPlBhdGllbnQgTm BsCDm0J4NhZxz6CDYwhXzt BA7cxBSbYJouLw2chGjahG pxHA4qDBEo olbwi589GxLhq5mfRDLosW GrAKfrYID7F14rr6T0RIGw IUQzSBD9nDK1uG2ktBuhyl ogbGVmdDsg gnGejHxcCXgxREicI832VL RvcDsnPkJpcnRoIERhdGU6 IH11GZ16xSCvm3X5fGB6N2 BhZGRpbmct nmgjsDJ8SYRqIGCgxZ13Pb 8heYopUr6mTGAjFKX4RXVo yZVcP7AkuX6uEiAqGBKqTM UtB1YyrCLm CSqjI554IOxdCwG0IJAlay CkK8ZjRCGeqYzxRkO2s9E0 Ke8RF0P3RA87SL07iVOtk2 D6gQM8V8Oh YBYyjcovmtstvIS6UWEwMJ YrzO33Cr1qpEfoKe3tHGSm OKC0EPDliVOjO5UsiS0sUy AjMDAwMDAw Y6WglKSiJQvjT500VWxgRv B4HZUhnzOuJ1KzNALdtSqp RyN9n1N1Yk6XTZo8DU62IV 15wBYbd0Y6 wBO5N7KdJIMxsguuphqlmA O9HZHgHNTxaA70Mf9mrHbi Jq5hRZFjKLM4ZXOscDPuN5 KanK7dDoEn STTuPGYuE1QxgTQpBHrmL8 13TRpjLcN4BOAchuIkX3Mg USAsjGvbLfF2w0Z7Fr4UQC RqUD09DHX8 uBQ0NS76SB82I4HfHdxeyE FibGU+PHRhYmxlIHdpZHRo AOegSGVbOlUngNzqLF1cOz 9yZGVyLWNv gUhstWEcJoFwe6etBIZuAV ksQW2xmBijW3IznOT8ZTFf p7a8Nz39D48oI6EkeWG+PG CtxWB6oKC2 oJ8nIkKnVbO2OArhV928Sm JjiRFcHdzlj5ugt1evyVp8 NlJ8IFModaHxjImvFUS0v9 KqBs35T34y IHdpZHRoPSIxNSUiIHZhbG fmgm2azS1uDr9+PGNvbCB3 xGL2cY2wBtGrSzK8WDvvT9 49InRvcCIv Hgaeo6oyo4ukrYu4LvXvKW ZbggPecAymHLK6h9XsEq90 W8IrgFyad0EfPtb4mh19fB Hhy5S0kYT3 F2CbCVXfzgphtFIqhPotUG 7cJRMvqfepOVRbjN5yTPAk A9v1OkTkQuT3IYkwI0Jfri Q6JGPzmLQd MTitJHF7D81pa4N8GZJsPI NpPNT5oMS0wF7qqQailseb bGVmdDsgdmVydGljYWwtYW lqR309OCPg sEztLLZocI7rXCVrgTSivM pkEH2rAMGymupcQwmZGVff IEpBREEgTTwvdGQ+PHRkIH A4iCfzEZod BFEzaF2jIHBvO8f6YcRuMo X5ODayV4NiLIIqjtwuKy17 bY0yFbZsHzU1SSokZ7Trmd R8FHBxlTCy FRmyVLL7V16zn6O8TNRsKW SzMOC4qMI9iM9lrWddgtlw bGVmdDsgdmVydGljYWwtYW jmN361TUBc bQglAwU6YgS7LsD4VBP1C9 HzIpk9KBEewXblLS9ltRPz RFrjEo9tnLmrhJjdHO6tHR BpbjtwYWRk bG3tIDHktBKlsZdcSH2fIL Zosbrjl716RwBzTGY0FESg cVJnC5XucV5wQdCqKZCdQN GqB5TicEMe SBgoW242YEsnUkJ5DZGfdc WyY1DxSGGquJznEiH5w3F9 Fn0wEJJLBPLngmlspRR+PH EdGLH5yCmx KWzaLBVbuM6yOOUnP3q7Al VaQvJ4EXhnR7AxLDMmqcpr Ex19eS4nBzJfXdW4MXeqM2 MxnlB2SPBa oLQwEQjlMGZ4F26vn2R9HI KhZZBnLSA9xRY1eF6kdUxi bjogbGVmdDsgdmVydGljYW aeVPybK480 IHRvcDsnPkZlbWFsZTwvdG Q+CLTuJZA3vUqgACexHPOn nK3gXTVnV9q6NpGcHiI2WQ uqX1QzGGAo mewnTx97nD2iZwCuCdP4GD xtK1IwwjN8TOXmqATjZOhk QSK4U86tw5W4AJPqXJKkHC U5dVK9cP1g bGlnbjogbGVmdDsgdmVydG fmTNwvCTiiC767JLYjuRsy VzHtEPQwZM4blGfiwMI+PC 64mb40G6Mi LuqoWsc0HJZiWSY6qFM1eP 9pXHTuCPrjq3H2rVG7R5Jm ceYwgm3tk0axAHUsZCswB5 0ynNJgl2A8 BSRfeTY7EABjcGpvXiEopL 93Oyc+ZKOrmFoej2DvZgzh q7arb1ivuUr7VcRiITNdor FsaWduPSJ0 u1UwHv58J89zIJnzPQOaGE NhPOLrQMCfyWitfp1svI1k Ii8+JLFoqLC4oHG5lR9iIv GkFsP7IOzi J135LnNwqYKnUejcn8glg8 yxaMf1CqMiNMZerhHyxMcd RPS5h4ZaRz23L2QjbMuqr2 YsJqm8gj28 uGAxs6R0pNV9V2OqHIGpla atsRUykLteMR4jPWQpjfik OBEfhR6kUZRdQ4w9ChEwHd G2HKakQ6Fa lbP8TWVgqFUsQCHlcJHBeT 1actcdo1xmcpcsBfHcXFCe NLj3GPg0VVBjdOptEvGaRD G6QcL8FBX2 uVPmpP2kuUsqscmhdH5qQv c+ITe1l1hmjZWeQM0swYZ4 CW16PM56eADma5F5zTM8Y0 BhZGRpbmct lgryhFM5GAImCVZovT36Ue 0eiIurJw3rYRGkODQ0JJFf kIFrN6UymA0eGlFjUKOoSC PcC0DbaRTv JGssH074TIleYrC1JNOooq GuR1XrLEGomUpcKuI4j5I8 On6GLQ51GW34NW15cQAug9 G2yDX5X3Xz WPLischrzvneuAV8VBTmDM BruV37Js9poChnCz2qDSNz GAI1EBGihIItT8TkdZ9rSs AjMDAwMDAw T4RsdPGhQFoqJ823VYukRu Y6BIKwikEhQ8TbSZCvrTiw HnL9s7P0Nr0IKh45WD09DT 10uMJmo8E1 aBF2X3NlTWSzjqeckhsfiC C0UEWtHMFvjJ65Iu7bqLec Hk7pGXLmVRO1JWXmdWDyS6 NqeR6jRyLu SMZcYFExR9FoyMArAZnlH0 35DMiyPkP2IKImyoJeM5Wn OAAxkClcMhQ9l5G9Zx6HCC agczx0C6Jf PjwvdHI+BN67LPVqEV77rN OjkXSms8qmaEz1OvKxQTXx NMQ2xFquIKufr8HiGLAiD6 1quIPsh5Q4 IGNv (more content not included)... Normal [facility] ED Note-Physicianon 11-20-19 ED Note-Physician Basic [...] day(s), # 10 cap(s), Refills(s) 0, Pharmacy: [facility], 165, cm, 11/18/21 12:18:00 [...] In 3 days 11/21/2021 EST [address] [place] [address]- Business (1) Additional Instructions: Patient Education Gastritis, Adult Attestation Patient seen and evaluated by the physician first assistant manager. Attending physician was present in the emergency department and supervised care. This visit was performed by both the physician and an APC. I performed all aspects of the MDM as documented. This report was transcribed using voice recognition software. Every effort was made to ensure accuracy, however, inadvertently computerized diet technician registered mistakes may be present. Appropriate healthcare PPE [...] Oral, Daily (more content not included)... Normal [facility] Comment on above: Result Comment: Elec tronically Signed By: Grant Jacob PA-C\.br\Date and Time Signed: 11/18/21 14:10 EST\.br\Electronically Co-Signed By: Kristopher Clemons DO\.br\Date and Time Co-Signed: 11/19/21 07:37 EST .Manual Abson 11-18-2021 Basophils/Leukocytes Manual cnt (Bld) [Pure # fraction] 0.1 E9/L Normal 0.0-0.2 [facility] Comment on above: Performed By: #### 3 1048291, 7725194, 9312307, 4444135, 95760845, 8901828, 32090861, 5259970 ####[facility] [place] [address] Eosinophils/Leukocytes Manual cnt (Bld) [Pure # fraction] 0.1 E9/L Normal 0.0-0.5 [facility] Comment on above: Performed By: #### 3 5993184, 8222611, 6029573, 1852269, 96757879, 5387202, 95721279, 2834470 ####[facility] [address] [place] [address] Lymphocytes/Leukocytes Manual cnt (Bld) [Pure # fraction] 1.6 E9/L Normal 1.0-4.0 [facility] Comment on above: Performed By: #### 3 6738917, 8751525, 6376589, 4615673, 02792992, 8157107, 34588778, 0432250 ####[address] [place] [address] Monocytes/Leukocytes Manual cnt (Bld) [Pure # fraction] 0.6 E9/L Normal 0.2-1.0 [facility] Comment on above: Performed By: #### 3 5293343, 8513410, 7769152, 1917414, 78946349, 7508522, 05095009, 1095335 ####[address] [place] [address] Neutrophils/Leukocytes Auto (Bld) [Pure # fraction] 3.9 E9/L Normal 2.0-7.5 [facility] Comment on above: Performed By: #### 3 9181897, 0187170, 7184685, 2158288, 58799784, 9987343, 54081390, 2540280 ####[facility] [address] [place] [address] BMPon 11-18-2021 Creatinine [Mass/Vol] 0.7 mg/dL Normal 0.5-1.3 [facility] Comment on above: Performed By: #### 3 2686905, 2964728, 0674911, 6267731, 77066577, 5725073, 41346075, 8823852 #### [facility] [address] [place] [address] Urea nitrogen [Mass/Vol] 11 mg/dL Normal 5-21 [facility] Comment on above: Performed By: #### 3 4933676, 6809083, 6457601, 7548158, 59595815, 3678437, 35465154, 0015855 #### [facility] [address] [place] [address] Urea nitrogen/Creatinine [Mass ratio] 16 No Units Normal 10-20 [facility] Comment on above: Performed By: #### 3 9272312, 3925547, 7508259, 0498507, 55976427, 1302073, 43203871, 2892062 #### [facility] [address] [place] [address] Anion gap [Moles/Vol] 12 mmol/L Normal 6-16 [facility] Comment on above: Performed By: #### 3 1083167, 3728267, 0313285, 7938719, 65265694, 9432243, 72518327, 0814152 #### [facility] [address] [place] [address] Calcium [Mass/Vol] 9.0 mg/dL Normal 8.9-11.1 [facility] Comment on above: Performed By: #### 3 6020230, 6830738, 9703594, 1688413, 34735902, 7422899, 32977557, 4793160 #### [facility] [address] [place] [address] Chloride [Moles/Vol] 104 mmol/L Normal 101-111 [facility] Comment on above: Performed By: #### 3 4409479, 8558726, 6085731, 6814828, 56922703, 8047132, 63917242, 5878627 #### [facility] [address] [place] [address] CO2 [Moles/Vol] 24 mmol/L Normal 21-31 [facility] Comment on above: Performed By: #### 3 1904070, 0908054, 2476973, 4563751, 70757744, 6981069, 18886132, 6862717 #### [facility] [address] [place] [address] Glucose [Mass/Vol] 87 mg/dL Normal 55-199 [facility] Comment on above: Result Comment: If t his glucose result represents a fasting glucose, interpretation should refer to the following reference range: 55-99 mg/dL Performed By: #### 3 7262744, 6737253, 8431754, 3023240, 98817686, 7060551, 03915428, 5955192 #### [facility] [address] [place] [address] Potassium [Moles/Vol] 3.7 mmol/L Normal 3.5-5.3 [facility] Comment on above: Performed By: #### 3 6976047, 4240333, 5857339, 3692104, 55994086, 9230561, 40531943, 7212449 #### [facility] [address] [place] [address] Sodium [Moles/Vol] 136 mmol/L Normal 135-145 [facility] Comment on above: Performed By: #### 3 4911819, 4676462, 2277949, 2732724, 04756952, 2954858, 34487631, 8869893 #### [facility] [address] [place] [address] CBC w/ Auto Diffon Erythrocyte distribution width (RBC) [Ratio] 14.6 % High 10.9-14.2 [facility] Comment on above: Performed By: #### 3 4026933, 3849897, 9695111, 6857564, 09399756, 5543722, 26237308, 1005080 #### [facility] [address] [place] [address] Hematocrit (Bld) [Volume fraction] 36.0 % Normal 34.0-46.0 [facility] Comment on above: Performed By: #### 3 0397897, 0119016, 2519494, 6560225, 07115834, 8864652, 19236888, 6382688 #### [facility] [address] [place] [address] Hemoglobin (Bld) [Mass/Vol] 12.3 g/dL Normal 12.0-16.0 [facility] Comment on above: Performed By: #### 3 9041050, 9540008, 6206455, 9576861, 09368998, 1294360, 88251154, 5269690 #### [facility] [address] [place] [address] MCH (RBC) [Entitic mass] 26.4 pg Low 27.0-34.0 [facility] Comment on above: Performed By: #### 3 2022274, 3599973, 9531266, 5013115, 71611568, 3864366, 50109810, 8496048 #### [facility] [address] [place] [address] MCHC (RBC) [Mass/Vol] 34.1 g/dL Normal 31.4-36.0 [facility] Comment on above: Performed By: #### 3 2277114, 4053587, 8108757, 6504026, 83294193, 1385210, 80600225, 2578893 #### [facility] [address] [place] [address] MCV (RBC) [Entitic vol] 77.3 fL Low 80.0-100.0 [facility] Comment on above: Performed By: #### 3 9143187, 3648283, 2597172, 4703214, 17612750, 4362923, 00283842, 6001740 #### [facility] [address] [place] [address] Platelet mean volume (Bld) [Entitic vol] 9.3 fL Normal 6.4-10.8 [facility] Comment on above: Performed By: #### 3 4452266, 8022050, 8057794, 1671935, 43383523, 7545740, 69465246, 7180785 #### [facility] [address] [place] [address] Platelets (Bld) [#/Vol] 250.0 E9/L Normal 150.0-500.0 [facility] Comment on above: Performed By: #### 3 0244318, 4320334, 0349830, 3355720, 74688300, 8035714, 13167454, 9714877 #### [facility] [address] [place] [address] RBC (Bld) [#/Vol] 4.6 E12/L Normal 4.3-5.9 [facility] Comment on above: Performed By: #### 3 0572771, 8792496, 2502853, 0885358, 73304116, 9622896, 96966116, 6125313 #### [facility] [address] [place] [address] WBC corrected for nucl RBC Auto (Bld) [#/Vol] 6.3 E9/L Normal 4.0-11.0 [facility] Comment on above: Performed By: #### 3 2269266, 8922781, 3106458, 7006838, 87686038, 3926775, 25791724, 3693515 #### [facility] [address] [place] [address] Consent for Treatmenton Consent for Treatment [id number] 0CD:127 Normal [facility] Discharge Instructionson Discharge Instructions [id number] 0CD:127 Normal [facility] ED Clinical Summaryon 2021 ED Clinical Summary [address] [address] ED Clinical Summary Person Information Name: LEENA INTERIANO [place] Age: 31 Years : 1990 Sex: Female Language: Sign Language PCP: BENTLEY LUCERO CNP Marital Status: Phone: [phone] Visit Id: Visit Reason: Nausea; Chest pain; [...] 11/18/2021 14:15:52 11/18/2021 14:15:52 11/18/2021 14:15:52 ADDRESS: [address] [place] [phone] PHYS DOC NOTES: MEDICAL INFORMATION: Prescriptions Given: New Medications [facility] 1986, [address] [place], [place] [id number], [phone] omeprazole (omeprazole 40 mg Balbir-) 1 Capsules [...] up: With: Address: When: BENTLEY LUCERO [address] [address] [employer] In 3 days 11/21/2021 DIAGNOSIS: Gastritis Normal [facility] ED Patient Education Noteon 11-18-2021 ED [...] medicines. These include steroids, antibiotics, and some kqhp-xxz-ieoubgw medicines, such as aspirin or ibuprofen. ? [...] these instructions at home: Medicines ? Take tsrd-mcf-cwdmhnx and prescription medicines only as told by [...] 08/25/2002 Document Revised: 01/18/2019 Document Reviewed: 01/18/2019 ENJORE Patient Education ? 2019 [employer]. Normal [facility] ED Patient Summaryon 022 ED Patient Summary [address] [address] Patient Discharge Instructions Person Information Name: LEENA INTERIANO Age: 31 Years Arrival Date: 11/18/2021 12:10:57 Discharge Diagnosis: Gastritis Primary Care Physician: BENTLEY LUCERO CNP Provider Information Primary Provider: Kristopher Clemons DO Advanced [employer]ishing Rod Marker:Grant Jacob PA-C The exam and treatment you received in the Emergency Department were for an urgent problem and are not intended as complete care. It is important that you follow up with a doctor, nurse practitioner, or physician?s first assistant manager for ongoing care. If your symptoms become [...] With: Address: When: BENTLEY LUCERO [address] [place] [address] Business (1) In 3 days 11/21/2021 In the event that this physician does not participate in your insurance network, please consult with your insurance company to find a nearby participating provider. Patient Education Materials: Gastritis, Adult A MESSAGE TO ALL PATIENTS REGARDING OPIOIDS PRESCRIPTION OPIOIDS: WHAT YOU NEED TO KNOW Prescription opioids can be used to help relieve wzfbdjna-fz-voyttl pain and are often prescribed following a [...] be struggling with addiction, tell your health resident caregiver and ask for guidance or call [facility]?S National Helpline at 0-152-109-LAME. c Source: Department of Health and Human Se (more content not included)... Normal [facility] Hep Func Panelon 11-18-2021 Bilirubin.indirect [Mass or moles/Vol] UTC Abnormal 0.1-0.9 [facility] Comment on above: Result Comment: Resu lt verified by Discern Rule. Performed result UTC (Unable to Calculate) was sent as an Alpha code due the inability to calculate a valid numeric value. Performed By: #### 3 4562073, 8303434, 8122725, 6189672, 39296905, 7756271, 49475235, 9548859 #### [facility] [address] [place] [address] Albumin [Mass/Vol] 4.0 g/dL Normal 3.3-5.0 [facility] Comment on above: Performed By: #### 3 0462284, 9895626, 4729114, 1343823, 04966524, 6885268, 93477050, 8791004 #### [facility] [address] [place] [address] Albumin/Globulin (S) [Mass conc ratio] 1.2 Normal 1.1-2.2 [facility] Comment on above: Performed By: #### 3 8495530, 4985138, 9929140, 9768168, 46401595, 3835569, 03035359, 5633523 #### [facility] [address] [place] [address] ALP [Catalytic activity/Vol] 50 Int._Unit/L Normal 21-98 [facility] Comment on above: Performed By: #### 3 0485732, 5998912, 2774009, 9241141, 25349517, 5977949, 53997835, 5745803 #### [facility] [address] [place] [address] ALT No additional P-5'-P [Catalytic activity/Vol] 14 Int._Unit/L Normal 6-46 [facility] Comment on above: Performed By: #### 3 5386421, 0388706, 4205774, 5708658, 53625021, 8715058, 39990348, 5814736 #### [facility] [address] [place], [place] [address] AST [Catalytic activity/Vol] 17 Int._Unit/L Normal 5-43 [facility] Comment on above: Performed By: #### 3 0928122, 8026723, 3590984, 1916292, 01074985, 3774717, 44604660, 3060718 #### [facility] [address] [place] [address] Bilirubin [Mass/Vol] 0.6 mg/dL Normal 0.0-1.1 [facility] Comment on above: Performed By: #### 3 3750333, 7760271, 4332954, 0937729, 54314626, 3205811, 36300254, 6609865 #### [facility] [address] [place] [address] Bilirubin.direct [Mass/Vol] mg/dL Normal 0.1-0.4 [facility] Comment on above: Performed By: #### 3 2084485, 7022972, 4887115, 3092750, 32281035, 1694060, 66561913, 2990654 #### [facility] [address] [place] [address] Globulin (S) [Mass/Vol] 3.3 g/dL Normal 1.4-4.0 [facility] Comment on above: Performed By: #### 3 1906141, 1467146, 0886015, 4529119, 60435774, 5115709, 93174916, 0754423 #### [facility] [address] [place] [address] Protein [Mass/Vol] 7.3 g/dL Normal 6.0-7.8 [facility] Comment on above: Performed By: #### 3 9710609, 9668409, 4042847, 3471181, 75991333, 6760564, 44984047, 3187018 #### [facility] [address] [place] [address] Lipase Levelon 11-18-2021 Lipase [Catalytic activity/Vol] 27 U/L Normal 13-58 [facility] Comment on above: Performed By: #### 3 1139567, 6624587, 1692415, 8459093, 82301016, 1662941, 96801999, 5489812 #### [facility] [address] [place] [address] Manual Diffon 11-18-2021 Band form neutrophils/100 WBC (Bld) 6 % Normal 0-10 [facility] Comment on above: Order Comment: Order Added by Discern Expert. Performed By: #### 3 6866026, 7489015, 6863501, 9614883, 33814679, 5335501, 53532892, 1046214 ####[facility] [address] [place] [address] Basophils/100 WBC (Bld) 1 % Normal 0-2 [facility] Comment on above: Order Comment: Order Added by Discern Expert. Performed By: #### 3 9867317, 1438886, 0473050, 6342720, 21757540, 0323927, 68082776, 3966312 ####[facility] [address] [place] [address] Eosinophils/100 WBC (Bld) 2 % Normal 0-8 [facility] Comment on above: Order Comment: Order Added by Discern Expert. Performed By: #### 3 9167491, 4328622, 4578028, 8482964, 82001622, 0370098, 13611535, 0564029 ####[facility] [address] [place] [address] Lymphocytes/100 WBC (Bld) 25 % Normal 14-50 [facility] Comment on above: Order Comment: Order Added by Discern Expert. Performed By: #### 3 7811569, 6118754, 1455536, 7630797, 24325606, 0324120, 23994474, 6772399 ####[address] [address] Monocytes/100 WBC (Bld) 10 % Normal 4-14 [facility] Comment on above: Order Comment: Order Added by Discern Expert. Performed By: #### 3 4529722, 2061595, 9778894, 7061920, 22388360, 9871161, 45456620, 7932024 ####[address] [place] [address] Morphology Doroteo (Bld) [Interp] Normal Normal [facility] Comment on above: Order Comment: Order Added by Discern Expert. Performed By: #### 3 2568579, 6127693, 3551635, 4106185, 56884509, 2801328, 40475966, 7097913 ####[facility] [address] [place] [address] Segmented neutrophils/100 WBC (Bld) 56 % Normal 36-75 [facility] Comment on above: Order Comment: Order Added by Discern Expert. Performed By: #### 3 3082516, 0871299, 4259293, 9573805, 31991836, 0016918, 56123262, 9151704 ####[facility] [address] [place] [address] Variant lymphocytes LM Ql (Bld) 0 % Invalid Interpretation Code [facility] Comment on above: Order Comment: Order Added by Discern Expert. Performed By: #### 3 3464543, 4825507, 3933712, 5375270, 72180460, 2960937, 17252089, 3195978 ####[facility] [address] [place] [address] Prescriptions/Work Noteson 0 11-18-2021 Prescriptions/Work Notes [id number] 0CD:127 Normal [facility] Troponin 0 Hr.on 11-18-2021 Troponin I.cardiac [Mass/Vol] ng/mL Low 10.10-27.10 [facility] Comment on above: Result Comment: The 95% CI (Confidence Interval) PPV (Positive Predictive Value) for myocardial infarction in females is 38 pg/mL, in males 51 pg/mL. The results should be used in conjunction with clinical conditions of myocardial infarction. (Access High Sensitivity Troponin I Instructions For Use, Alec Naomi, April 2018) Performed By: #### 3 2979653, 0332353, 9035546, 3906770, 28630082, 8103843, 19173153, 9467692 #### [facility] [address] [place] [address] XR Chest 2 Viewson XR Chest 2 [...] Transcribed by: MARÍA ELENA Technologist: NURIS Gonzalez [facility] eGFRon 11-18-2021 GFR/1.73 sq M.predicted among blacks MDRD (S/P/Bld) [Vol rate/Area] mL/min/{1.73_m2} Normal >=59 [facility] Comment on above: Order Comment: Order added by Discern Expert. Result Comment: eGFR is race adjusted. AA=. Performed By: #### 3 2957725, 2737476, 7434008, 6258237, 61517539, 5941391, 80601639, 2452895 #### [facility] [address] [place] [address] GFR/1.73 sq M.predicted among non-blacks MDRD (S/P/Bld) [Vol rate/Area] mL/min/{1.73_m2} Normal >=59 [facility] Comment on above: Order Comment: Order added by Discern Expert. Result Comment: Corporate Auditor chance kidney disease could be indicated at eGFR's of less than 60 mL/min/1.73m2. Kidney failure is indicated at less than 15 mL/min/1.73m2. Performed By: #### 3 9147430, 6755926, 7348902, 1645433, 26719655, 9089805, 09613494, 3731184 #### [facility] [address] [place] [address] Coding Summary.on 09-25-2021 Coding Summary. CD:[id number] Gh 0bWw+PGhlYWQ+DV2XFSNlT 62emDOhgG0HD1bXOU6NPDG JUFVLTJ7EYX8zwDO9YMrqU 2VybiAv DvjmeIBzKN44QJd4EEK8eL mvJDzcvO8kcUQhQ4u1ZgCs FC31lW04TFbgZMSrUsC3Vw ZpbjsgbWFy I4jvOvWpsKTiAjg+PHRhYm xlIHdpZHRoPScxMDAlJyBz yMjwJC8yAq4mLSBkQLLtgO xhcHNlOiBj d1lmQXToYDsyAP5nsEdeD1 JioBT9CJIlb2e1Vv97qQO+ ZSFsTKU3wGsjJNriq780Dw Nur0gqRAJ2 yVKxBNrvONO6P87zk3O4OL BtWUMbQDC5lPU9qL7nhKhg apceI4OlwEDmWbU2FLA3gT McbE6jtIgi czdrjR8nUve+Z23ITN8CCC YBUV3QCbm8L6TdSysliTG+ FM16JBZnAX61gHOpdWWdy0 ppgLl8EqRu PAWzJZU5iMmdDIphv4JbHN OdC82gbWUxv6O9YGMepJaf iJTbDhLvxDF0bS6yVPvtug yqw6ewkdhc Vbyou1kbkr55iD28A63lOP ajZAEwWHT5RFRfTHPvgNum xt9lhE7nHd5+VVcsk5gga1 ewrUn6NhDb LSPwkgAiuUveROJ4g0OoFr 75E9QapOiuc9DfZof1bd85 zEFne8I3yEK1CRtoTLBtiK 0kJLzkZyK8 MPQpRjJyxO54aSItROddNb 4qxDahwLbeLG4pDGOloacs PYBybV2zONAidTOkmZkdYM 4wNTBpbjtm s633OrWpDJH3OGLwwXMhK3 RmsN5pHrXoVPDlCPGeH6Of zJUyTCvuF682DIqnVwD6IF CbkdThU9Vu JIPkeDcdDdW8v6L8Jl5Yj0 XuwbigKWW0CYvmMYJvUxRy JlQqSmU6C2TiGgd3VWSwwO igDF9nG5Vh EATsxevitgywqXK6YHQiWD XaxP06pIDxKLqmRk0hw6X4 n737ZHBoNJOpkU54Aw0eaQ ogMTBwdCBU lS3rdokag5cdsvyfSdEnSN NqCXz1XEp9YWVzpSfqTnWd BNG3ZmD2MGA9yMVnkC3lwK mezmmacP7j Oyc+N19wxS7bIUE9RGJ9xo mtEXEgccSeVW49RR50L5Fa PjwvdGFibGU+PGRpdiBzdH wsJZ9mJcZc o7tei1CqZTnxC8NhCGRfDT kpCzv6FSXvUOK4bPK0aG0q HJYfLTzty3P8aYZ3T8Krio Gssx6wf5tb EQZkHBzkF85bxSCxy6I6HH NumNR9DKQknTqzShTkyC70 Oyc+QMUslTsgy7NnIcybc2 buk9cauGn1 DiTgTXJgtyKurTcgZNR6h9 ZrRu32A80bXKxxTBSrOLPm KDPtXCUurLkarj5qzW1rXe 8+PGNvbCB3 oBL9wG9oBFTkEuC5ODeaP1 47MlObwJImPddzn7rtc5gq qJc9ZzKkACNzvvJocBhqOV J2l2OcXj03 P86uRTvmTXIjDFJfOEKfIQ LizBieiy3niH1pUg1+PC9j h2ktrd14lH80iYQ+PHRkIH B4vTpgVBzk MBWknZ2gNJslNdD5CFJvNd VwkF99zNMqFRbfZa3eyLqn zDjaNF6aXRYiwluxx745Br Qbu8puNRSe qMLbPEglRIE9O23du7F0XY KeYWFbPED8aSX9pS6lfZbl bjogbGVmdDsgdmVydGljYW lgEHhlS295 IHRvcDsnPlBhdGllbnQgTm LjJAs1S9PbZfl7VWChsThy KZ7fmEIwJDszMa7kpZxxhN piKJ5aLMXv pszid281BjMsr5ekZZRhzQ PiDTziVAE3S60uw6P2UFKa TIMnMRV3yZQ9hH7btUoqvv ogbGVmdDsg odRysRnpUCsmSJpqC989CF RvcDsnPkJpcnRoIERhdGU6 XR97PR32nMTqv8P9uFE8K7 BhZGRpbmct xdyltWY6VSQwIEOchI93Ua 5izWbnVd4gENUrZRS1JYYg fXXpB6OxdS3lJhIcCHJrKH CoA0YhtMYs VNeaF959SJizXjX9TJDycw EeN6IuBSJrnAqqPfZ0p0X3 Lb7LI2X4IR06EV73dWSxx4 U3sKJ7C6Gz WDTuekddwnsisGF6ZSPzHC WxcJ56In0hzZrzSj8jBBFt GOG6YOMzuCDyI7JuvN4qKw AjMDAwMDAw C4MzsFYlYFcwF523KWvqVc Z3VSFutqQlE8AsJUDofNoh PuL4l7G8Rt6ZSOp3YX75RD 77pGErt5U8 tHF0W1UkJSEswjbbekbjdZ O4MHYfIELgaH06Rc5vjPut Gy9iKDAbEQX4VHBewOXxX2 OxrV7uYmSc HXDoUGUcP1MrwALaVLyhF7 59DTpbOjE3GJJbfcIlZ9Fw QEOpoFlbIzD1g0I9Pw7JNI GgNL00WQM0 cNP6LV43JB40F7YzGburjJ FibGU+PHRhYmxlIHdpZHRo PHnmUMDzEjHayWukRJ9hEf 9yZGVyLWNv rNwnoRRoLjEnk9wuPWNbYB ceVD5iqXwzL6GgxIS4CUEz e1q1Ge71T48sH0GsjYS+PG VpqOF8vAO9 dF1uHrCvItN5COplO149Nm WuxYEiWeptj8hep9xheZv8 LjD7IXEsqlLvpJzkVOF6m5 KcWt81O31s IHdpZHRoPSIxNSUiIHZhbG pvij3lnM9zIe0+PGNvbCB3 yFT8lD2lRzJqQtB7EPitY5 49InRvcCIv Pimaj7obi2admAx4WnEhRB MedyUirVgvSQX4f7MiFy61 Y0UshPaed7DgUmm8zi16wZ Amz0I1nTY2 D4OyEBAcycfcjNRskVbxSI 4iQOLazbrsAFBxqO2cGYAl I3p0WbUsExB9AUiyR8Udek N8VAFjpNUw ATszQXR5M22ya5F6NLTwTK GcLSD9tCD1jN6oaMjlqgoa bGVmdDsgdmVydGljYWwtYW nsJ578BRWy lLboOVSwzU3eYMZrcUDteT asCK6aZMAmzregLzpYDUpi IEpBREEgTTwvdGQ+PHRkIH K6tOlwQLle WIRumN2qZWBvR9m5LqWwFq G5EPloE7BgUPWkcaiiWr67 gE8gQqIeJmE6UQtiM7Cmxn I1UEJszKNu OZlxFMD9S48ka2Y5ONSiHE SxTSI8vFU4gU5ftMmyqncm bGVmdDsgdmVydGljYWwtYW uhN933XJUj wBsnHbU4NaW9WmX2NHI9X3 XfXkk8EVFubJtxNW1qpROm VAuaVw3ooMdzzReiWU5tRJ BpbjtwYWRk nC4jCBQvpGUwhEfnJP6oRI Kcphlyr090RmTjUUF3MIRy mUMdT4VovU1iIvWcVORkSW LpN3FbcICt JYtiP332ZHbaOxT7DGFjfo NmF6DjVDYcbRszVrM7b6Y5 Dm3hJAZPYFDxlwqmlLK+PH VdDQX4uWbi KEvkDGKysU4vFBYsW2t9Tn IqEkL7GOcvN0UmEXZxtxrr Zt25zS4vYvSjNyR6KNvhF8 ElceI4KRBa dJZpCJqiWSG0P69bc9V9OM IlGYOcEHR2xXI1qH5ybHdr bjogbGVmdDsgdmVydGljYW klPLteA604 IHRvcDsnPkZlbWFsZTwvdG Q+FBRaCZS8bZjeTGymLDDs xU8sCOMvO9z6SuKnRaX8AV seZ0PyZRFd lvhqZe98oE2eUsAtGmX6YH cnU3HwtcA3SJKzfTErGYmb QNS9L83dd2C8EYThKOWnIE X9uCM9lY3h bGlnbjogbGVmdDsgdmVydG bmPTokIYziJ604XBCtyPpp LyTqVTEkUZ3naFfmaWL+PC 30jt51A4Ec DgvmBxo2IMIoVWD9kZM6rL 7nZCGsIDkzj3X0fKU5A1Eo xmAbon2sl7vgUTAsKWbeD1 1xzFOnu0S0 RBVazMH3JYDalHztVlBvzL 93Oyc+UYUtlNpic5UhQwwr l3vkk8iwyLl4UcCeAZAleg FsaWduPSJ0 z9DjEb33A16rEDswEYPcAD YsZLThOXKttZctmd0vwR8a Ii8+OCWziSH1dUK0aT8wNz MxVoL4ZNjl S590MiIqeTDeRrfhr5qzb6 hvuJs7DgBwTWZqaxBsaYfh FGM7d8FcGb83Q4GxbXadw5 DgXlt7ua77 tPQhl7Q9xCJ7I2PbBDNjpp mftREnkXkoPO8dWTEpgssa SHZwpI4yMOMdC6q1NuMaLq O9AXjtS0Ap dyZ6YPKerXQyKXIcsDHHaX 7hytafn2bbqzqzBsWwSCLa WZs4PWq0LACreStrHwFvZF U4SwN4GQH0 lBGnnJ7mfOdcvjqzaX8qPc c+BPe6u6qkgHEqUC3wfPL0 FD50XN37gBMjz3U5jKG1X2 BhZGRpbmct aytgeDN9URYwIDYzlB97Vi 2fzYxrAv3bILOwRKQ5RUYg xEZbM9BveI6qStJoRLSuSH FbO4ZpjSIi XUenM587TQscRtJ8ICSsdc NgX5XeVNEakOxzLaM1e6M8 Mt2GXK95UZ42YO67uSJer0 M3fET0X9Vo KSSbcaaawyqcdZV6VKIyFW EnaB36Fl7lyJacXf7vKEZt ZYF2WWOxdXHaP7DxwL1sAc AjMDAwMDAw S0ShfXXaZNilC210VYtoYs J2ZDCmqeUgU3ReWOIusThm YlF8r5L2Mk0NWg72GG80BF 35eDBrd2F8 dYX2E5BvCZAsaeuozdalbY X1FYGyTUBsjS07Kb1kuRsi Xy4pNMFlVIB5QMUevGDyM8 CbsH4qLuYc VPFfJMDpS0AnrIDiKOpbK7 30ACxcEfX1XGHwzzRbE7Kg VHZfyFekZuI6h5A1Nc8FDR wnxoy1R5Gv PjwvdHI+ZN97MPRyUP82bW NlpNTpb7pnmFz8HuAqXGNa FQJ9yQekXWbhm5PtJUIdI0 5nzSCrx2V5 IGNv (more content not included)... Normal [facility] COVID-19 ([facility])on 09-24-2021 SARS-CoV-2 (COVID-19) RNA PARI+probe Ql (Resp) Not detected Normal Not Detected [facility] Comment on above: Result Comment: This test result should be correlated with clinical presentations and medical history by a healthcare provider to determine its clinical significance. This assay was performed by a reverse transcriptase real-time polymerase chain reaction (rt PCR) method on the [employer] ([employer]) system. This test has been authorized only [...] or revoked sooner. Performed By: #### 2 [id number] ####[place] [address] SARS-CoV-2 (COVID-19) RNA PARI+probe Ql (Unsp spec) Pass Normal Pass [facility] Comment on above: Performed By: #### 2 [id number] ####[place] [address] Specimen source Nom (Unsp spec) Nasal Normal [facility] Comment on above: Performed By: #### 2 [id number] ####[place] [address] ADMITTED TO INTENSIVE CARE UNIT FOR CONDITION OF INTEREST:FIND:PT: Unknown Normal [facility] Comment on above: Performed By: #### 2 [id number] ####[place] [address] EMPLOYED IN A HEALTHCARE SETTING:FIND:PT: Unknown Normal [facility] Comment on above: Performed By: #### 2 [id number] ####[place] [address] FIRST TEST FOR CONDITION OF INTEREST:FIND:PT: Unknown Normal [facility] Comment on above: Performed By: #### 2 [id number] ####[place] [address] HAS SYMPTOMS RELATED TO CONDITION OF INTEREST:FIND:PT: Unknown Normal [facility] Comment on above: Performed By: #### 2 [id number] ####[place] [address] HOSPITALIZED FOR CONDITION OF INTEREST:FIND:PT: Unknown Normal [facility] Comment on above: Performed By: #### 2 [id number] ####[place] [address] STATUS:FIND:PT: Unknown Normal [facility] Comment on above: Performed By: #### 2 [id number] ####[place] [address] RESIDES IN A [facility] CARE SETTING:FIND:PT: Unknown Normal [facility] Comment on above: Performed By: #### 2 [id number] ####[place] [address] Consent for Treatmenton 09-14 Consent for Treatment [id number] 2009 [id number] 0CD:127 Normal [facility] Discharge Instructionson Discharge Instructions [id number] CD:127 Normal [facility] ED Clinical Summaryon 2021 ED Clinical Summary [place] [id number] ED Clinical Summary Person Information Name: LEENA INTERIANO [place] Age: 31 Years : 1990 Sex: Female Language: Sign Language PCP: BENTLEY LUCERO CNP Marital Status: Phone: [phone] Visit Id: Visit Reason: Sinus Pain/Congestion; RUNNY [...] 09/24/2021 11:26:44 09/24/2021 11:26:44 09/24/2021 11:26:44 ADDRESS: [address] [place] [phone] PHYS DOC NOTES: MEDICAL INFORMATION: Prescriptions Given: New Medications [facility], [address] [place], [place] [phone], [phone] brompheniramine/dextro methorphan/PSE (Bromfed DM oral syrup) 10 [...] With: Address: When: BENTLEY NIC [address] [place] [address] Business (1) In 3 days 09/27/2021 DIAGNOSIS: Acute upper respiratory infection Normal [facility] ED Note-Physicianon 09-24-19 22 ED Note-Physician [...] for 7 day(s), 280 mL, Refill(s) 0, [facility] 1985, 164, cm, 09/24/21 11:04:00 EST, Height/Length Dosing, 89, kg, 09/24/21 11:04:00 EST, Weight Dosing dexamethasone, 10 mg = 2.5 mL, Injection, Oral, Once, Stop date 09/24/21 11:06:00 EST, STAT, Start date 09/24/21 11:06:00 EST, 09/24/21 11:06:00 EST COVID-19 ([facility]) Disposition Plan Patient Discharge Condition Disposition: Discharged home Condition: Improved and stable Counseled: Patient and/or family were counseled to workup, results, treatment plan and follow-up recommendations Discharge Prescription List Prescriptions Bromfed DM oral syrup, 10 mL, Oral, QID, PRN Follow-up With When Contact Information BENTLEY NIC In 3 days 09/27/2021 EST [address] [place] [address]- Business (1) Additional Instructions: Patient Education COVID-19 Upper Respiratory Infection, Adult Attestation Patient seen and evaluated by the physician first assistant manager. Attending physician was present in the emergency department and supervised care. This visit was performed by both the physician and an APC. I performed all aspects of the MDM as documented. This report was transcribed using voice recognition software. Every effort was made to ensure accuracy, however, inadvertently computerized diet technician registered mistakes may be present. Appropriate healthcare PPE [...] available. Diagnostic Results No qualifying data available. [facility] Comment on above: Result Comment: Elec tronically Signed By: Grant Jacob PA-C\.br\Date and Time Signed: 09/24/21 11:08 EST\.br\Electronically Co-Signed By: Devendra Miller M.D.\.br\Date and Time Co-Signed: 09/24/21 15:49 EST ED Patient Summaryon 022 ED Patient Summary [address] [address] Patient Discharge Instructions Person Information Name: LEENA INTERIANO Age: 31 Years Arrival Date: 09/24/2021 10:56:03 Discharge Diagnosis: Acute upper respiratory infection Primary Care Physician: BENTLEY LUCERO CNP Provider Information Primary Provider: Devendra Miller M.D. Advanced Fishing Rod Marker:Grant Jacob PA-C The exam and treatment you received in the Emergency Department were for an urgent problem and are not intended as complete care. It is important that you follow up with a doctor, nurse practitioner, or physician?s first assistant manager for ongoing care. If your symptoms become [...] Instructions: With: Address: When: BENTLEY LUCERO [address] [place] [address] [facility] () In 3 days 09/27/2021 In the event that this physician does not participate in your insurance network, please consult with your insurance company to find a nearby participating provider. Patient Education Materials: COVID-19; Upper Respiratory Infection, Adult A MESSAGE TO ALL PATIENTS REGARDING OPIOIDS PRESCRIPTION OPIOIDS: WHAT YOU NEED TO KNOW Prescription opioids can be used to help relieve uhiscxlt-nj-tegudu pain and are often prescribed following a [...] be struggling with addiction, tell your health resident caregiver and ask for guidance or call [facility] National Helpline at 8-014-255 (more content not included)... Normal [facility] Prescriptions/Work Noteson 0 09-24-2021 Prescriptions/Work Notes [id number] CD:127 Normal [facility] Chlamydia/GC DNA, Uron 03-16 Chlamydia Probe, Ur Negative Normal NEG [facility] Comment on above: Result Comment: CHLA MYDIA TRACHOMATIS DNA not detected by nucleic acid amplification. Performed By: #### U CGP ####[facility] [address] [place] [address] [id number] Gonorrhea Probe, Ur Negative Normal NEG [facility] Comment on above: Result Comment: NEIS SERIA GONORRHOEAE DNA not detected by nucleic acid amplification. Performed By: #### U CGP ####[facility] Rehabilitation[facility] Lingtu SoftwareQquindz[address] [place] [id number] Vaginitis DNA Probeon 2017 Protein Specimen Description .VAGINASpecial Requests NOT REPORTEDDirect Exam NEGATIVE for Gardnerella vaginalis NEGATIVE for Dora sp. NEGATIVE for Trichomonas vaginalis Method of testing is a DNA probe intended for detection and identification of Dora species, Gardnerella vaginalis, and Trichomonas vaginalis nucleic acid in vaginal fluid specimens from patients with symptoms of vaginitis/vaginosis. 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 Performed By: #### U CGP ####[place] [address] [place] [address] Gonorrhea Probe, Ur Negative Normal NEG [facility] Comment on above: Result Comment: NEIS SERIA GONORRHOEAE DNA not detected by nucleic acid amplification.[address] [address] Performed By: #### U CGP ####[place] [address] [place] [address] Vaginitis DNA Probeon 2017 Protein Specimen Description .VAGINAL SWABSpecial Requests NOT REPORTEDDirect Exam NEGATIVE for Dora sp. NEGATIVE for Gardnerella vaginalis NEGATIVE for Trichomonas vaginalis Method of testing is a DNA probe intended for detection and identification of Dora species, Gardnerella vaginalis, and Trichomonas vaginalis nucleic acid in vaginal fluid specimens from patients with symptoms of vaginitis/vaginosis. Report Status FINAL 11/25/2017 Normal [facility] Comment on above: Performed By: #### V AGDNA ####[address] [address] Progress Noteon 10-20-2017 HIM IP Note OR Regional Business Development Manager Normal [facility] Vital Signs Date Time Vital Sign Value Performing Clinician Faci lity 08-29-2022 17:32-0500 Body temperature 98.78 [degF] Kristopher Clemons [facility] 08-29-2022 17:32-0500 Diastolic blood pressure 96 mm[Hg] Kristopher Sextone [facility] 08-29-2022 17:32-0500 Heart rate 74 /min Kristopher Kaci [facility] 08-29-2022 17:32-0500 Respiratory rate 18 /min Kristopher Clemons [facility] 08-29-2022 17:32-0500 SaO2% (BldA) [Mass fraction] 99 % Kristopher Clemons [facility] 08-29-2022 17:32-0500 Systolic blood pressure 143 mm[Hg] Kristopher Clemons [facility] 06-18-2022 12:13-0400 Body temperature 98.42 [degF] Connor Emanuel [facility] 06-18-2022 12:13-0400 Diastolic blood pressure 88 mm[Hg] Connor Emanuel [facility] 06-18-2022 12:13-0400 Heart rate 78 /min Connor Emanuel [facility] 06-18-2022 12:13-0400 Respiratory rate 20 /min Connor Emanuel [facility] 06-18-2022 12:13-0400 SaO2% (BldA) [Mass fraction] 98 % Connor Emanuel [facility] 06-18-2022 12:13-0400 Systolic blood pressure 133 mm[Hg] Connor Emanuel [facility] 05-28-2022 10:50-0400 Body temperature 98.6 [degF] Connor Emanuel [facility] 05-28-2022 10:50-0400 Diastolic blood pressure 97 mm[Hg] Connor Emanuel [facility] 05-28-2022 10:50-0400 Heart rate 67 /min Connor Emanuel [facility] 05-28-2022 10:50-0400 Respiratory rate 18 /min Connor Emanuel [facility] 05-28-2022 10:50-0400 SaO2% (BldA) [Mass fraction] 98 % Connor Castellanos [facility] 05-28-2022 10:50-0400 Systolic blood pressure 140 mm[Hg] Connor Emanuel [facility] 01-09-2022 13:53-0400 Body temperature 98.6 [degF] [facility] 01-09-2022 13:53-0400 Diastolic blood pressure 99 mm[Hg] [facility] 01-09-2022 13:53-0400 Heart rate 83 /min [facility] 01-09-2022 13:53-0400 Respiratory rate 16 /min [facility] 01-09-2022 13:53-0400 SaO2% (BldA) [Mass fraction] 98 % [facility] 01-09-2022 13:53-0400 Systolic blood pressure 116 mm[Hg] [facility] Encounters Encounter Date Encounter Type Care [...] Start: 04-22-2023 End: 04-22-2023 ambulatory Bentley Lucero Facility:[facility] Start: 04-22-2023 End: 04-22-2023 ambulatory Services [facility] Work Phone: [facility] Work Phone: Start: 04-22-2023 End: 04-22-2023 Patient encounter procedure Services [facility] Work Phone: [facility] Work Phone: Start: 04-16-2023 End: 04-16-2023 ambulatory Bentley E Spasic Facility:[facility] Start: 04-16-2023 End: 04-16-2023 ambulatory DIRECTOR OF ONLINE EDUCATION-C Bentley Spasic Work Phone: [facility] Work Phone: Start: 04-16-2023 End: 04-16-2023 Departed Referred DIRECTOR OF ONLINE EDUCATION-C Bentley Spasic Work Phone: [facility] Start: 01-27-2023 ambulatory NARENDRANATH LAKSHMIPATHY . Facility: Start: 01-20-2023 End: 01-21-2023 ambulatory NARENDRANATH LAKSHMIPATHY . Facility:[facility] Start: 01-01-2023 End: 01-01-2023 ambulatory EASTON JOESPH . Facility:[facility] Start: 10-30-2022 End: 10-30-2022 ambulatory Bentley E Spasic Facility:[facility] Start: 10-30-2022 End: 10-30-2022 ambulatory DIRECTOR OF ONLINE EDUCATION-C Bentley E Spasic Work Phone: [facility] Work Phone: Start: 10-30-2022 End: 10-30-2022 Patient encounter procedure DIRECTOR OF ONLINE EDUCATION-C Bentley Spasic Work Phone: [facility] Work Phone: Start: 10-09-2022 End: 10-09-2022 ambulatory Bentley E Spasic Facility:[facility] Start: 10-09-2022 End: 10-09-2022 ambulatory DIRECTOR OF ONLINE EDUCATION-C Bentley E Spasic Work Phone: [facility] Work Phone: Start: 10-09-2022 End: 10-09-2022 Patient encounter procedure DIRECTOR OF ONLINE EDUCATION-C Bentley Lucero Work Phone: [facility] Start: 10-08-2022 End: 10-08-2022 ambulatory VANESSA JEREZ Facility: Start: 08-29-2022 End: 08-29-2022 Emergency department patient visit Kristopher Clemons Facility:[facility] Start: 08-29-2022 End: 08-29-2022 Emergency department patient visit Kristopher Clemons [facility] Start: 08-20-2022 End: 08-20-[address] KARMA HAY Facility: Start: 06-18-2022 End: 06-18-2022 Emergency department patient visit Connor Castellanos Facility:[facility] Start: 06-18-2022 End: 06-18-2022 Emergency department patient visit Connor Castellanos [facility] Start: 05-28-2022 End: 05-28-2022 Emergency department patient visit Connor Castellanos Facility:[facility] Start: 05-28-2022 End: 05-28-2022 Emergency department patient visit Connor Castellanos [facility] Start: 03-21-2022 End: 05-15-2022 ambulatory BENTLEY LUCERO Facility:[facility] Start: 03-12-2022 End: 03-12-2022 ambulatory Rangel Stanton Other [employer] Other Start: 03-12-2022 Telephone encounter Rangel PHILLIPS [facility] Start: 02-18-2022 End: 02-26-2022 Pre-admission assessment BENTLEY LUCERO [facility] Start: 02-16-2022 End: 02-16-2022 Emergency department patient visit Connor Castellanos Facility:[facility] Start: 01-09-2022 End: 01-09-2022 Emergency department patient visit Devendra Miller Facility:[facility] Start: 01-09-2022 End: 01-09-2022 Emergency department patient visit Devendra Miller [facility] Start: 11-18-2021 End: 11-18-2021 Emergency department patient visit Kristopher Clemons Facility:[facility] Start: 09-24-2021 End: 09-24-2021 Emergency department patient visit Devendra Miller Facility:[facility] Start: 03-16-2018 End: 03-16-2018 Ambulatory DION Guadarrama OPHELIA [facility] Start: 11-25-2017 End: 11-26-2017 Ambulatory DION Chiara OPHELIA [facility] Procedures Date Procedure Procedure Detail Performing Clinician Start: 04-22-2023 X-ray of cervical spine Services [facility] Work Phone: Start: 10-30-2022 CT of lumbar spine w ithout contrast DIRECTOR OF ONLINE EDUCATION-Rosy Lucero Work Phone: Start: 10-30-2022 Bilateral mammography N P-C Bentley Lucero Work Phone: Start: 10-30-2022 Ultrasonography of l eft breast DIRECTOR OF ONLINE EDUCATION-Rosy Lucero Work Phone: Start: 03-15-2018 C.TRACHOMATIS N.GONO RRHOEAE DNA, URINE DION OPHELIA Start: 03-15-2018 VAGINITIS DNA PROBE MAR Y OPHELIA Start: 11-25-2017 C.TRACHOMATIS N.GONO RRHOEAE DNA, URINE DION OPHELIA Start: 11-25-2017 VAGINITIS DNA PROBE MAR Y OPHELIA Plan of Treatment Date Care Activity Detail Author Start: 04-16-2023 [facility] Immunizations Immunization Date Immunization Notes Care Provider Oswaldo conner 06-06-2021 COVID-19 mRNA, Comirnaty (Pfizer) DIRECTOR OF ONLINE EDUCATION-C Bentley Nic Work Phone: [facility] 05-16-2021 COVID-19 Porsha Renee (Pfizer) DIRECTOR OF ONLINE EDUCATION-C Bentley Azaleasirosy Work Phone: [facility] Payers Date Payer Category Payer Self-pay [id number] 2022 Medicaid 2022 Medicare 2015 Medicare [id number] 1990 Unknown [id number] 2.16.8 40.1.122761.3.579.2.727 1990 Unknown [id number] 2.16.8 40.1.635595.3.579.2.727 1990 Unknown [id number] 2.16.8 40.1.915176.3.579.2.727 1990 Unknown [id number] 2.16.8 40.1.034532.3.579.2.727 1990 Unknown [id number] 2.16.8 40.1.522250.3.579.2.727 1990 Unknown [id number] 2.16.8 40.1.366906.3.579.2.727 1990 Unknown [id number] 2.16.8 40.1.553409.3.579.2.727 1990 Unknown [id number] 2.16.8 40.1.699621.3.579.2.727 1990 Unknown [id number] 2.16.84 0.1.840057.3.579.2.593 1990 Unknown [id number] 2.16.84 0.1.405083.3.579.2.593 1990 Unknown [id number] 2.16.84 0.1.105026.3.579.2.593 1990 Unknown [id number] 2.16.84 0.1.683240.3.579.2.593 1990 Unknown [id number] 2.16.84 0.1.334594.3.579.2.593 1990 Unknown [id number] 2.16. 840.1.024182.3.579.2.356 1990 Unknown [id number] 2.16. 840.1.455400.3.579.2.196 1990 Unknown [id number] 2.16. 840.1.369926.3.579.2.196 1990 Unknown [id number] 2.16. 840.1.963878.3.579.2.196 1990 Unknown [id number] 2.16. 840.1.049055.3.579.2.196 1990 Unknown [id number] 2.16.84 0.1.743229.3.579.2.1259 1958 Medicaid [id number] 2. 16.840.1.586820.19 1958 Medicare [id number] 2.1 6.840.1.173302.19 Unknown [id number] 2.16.8 40.1.699682.3.579.2.531 Unknown [id number] 2.16.8 40.1.133741.3.579.2.531 Unknown [id number] 2.16.8 40.1.397375.3.579.2.531 Unknown [id number] 2.16.8 40.1.805943.3.579.2.531 Social History Date Type Detail Facility Tobacco [facility] Comment on above: Denies. Sex Assigned At Female [facility] Start: 06-18-2022 Tobacco smoking status Light t obacco smoker (finding) [facility] Comment on above: pt tab Start: 03-12-2022 End: 03-12-2022 Tobacco smoking status NHIS Never smoked tobacco (finding) [facility] Start: 1990 Sex Assigned At Female [facility] Functional Status Date Assessment Result Facility 08-29-2022 Functional Status N/A [facility] 06-18-2022 Functional Status N/A [facility] 05-28-2022 Functional Status N/A [facility] Clinical Notes 09-24-2021 to 01-20-2023 Note Date & Type Note Facility 01-20-2023 Note CONSULTATION CONSULTATION DATE: 01/20/2023 TO: SUSIE Navarrete CHIEF COMPLAINT: Severe left lower back pain. HISTORY: Patient is deaf and we conducted our interview and examination process in the presence of one of our staff members, as well as the electronic parts designer was present online. Patient reports having [...] our patients to inform us about any xuag-nwi-rfuzqsr medications or herbal remedies/nutritional supplements/alternative remedies. 2. [...] options with their primary care provider. [facility] 08-29-2022 Hospital Discharg e instructions Patient Education [...] Follow these instructions at home: Medicines Take taam-mid-bcyfdlx and prescription medicines only as told by [...] and water are not available, use hand relocation services specialist. Avoid contact with people who have cold [...] 10/08/2005 Document Revised: 07/14/2019 Document Reviewed: 02/18/2017 [employer] Patient Education 2019 [employer]. Follow Up Care 08/29/2022 17:24:30 With:BENTLEY LUCERO Address: [address] [place] [address]- Business (1) When:09/01/2022 18:22:15 Comments:Follow-up with your primary care provider in 3 to 5 days. If symptoms worsen, do not improve, or new symptoms arise please report back to emergency department for further evaluation. [facility] 06-18-2022 Hospital Discharg e instructions Patient Education [...] medicines to help relieve symptoms, such as: Afsp-anw-djkulcf cold medicines. Cough suppressants. Coughing is a [...] and other clear broths. General instructions Take noie-hhl-zogvfgl and prescription medicines only as told by [...] and water are not available, use hand relocation services specialist. ?Avoid touching your mouth, face, eyes, or [...] 02/24/2002 Document Revised: 09/08/2019 Document Reviewed: 04/16/2018 [employer] Patient Education 2020 [employer]. Follow Up Care 06/18/2022 11:58:34 With:BENTLEY LUCERO Address: [facility] [place] [address] Business (1) When:06/21/2022 13:13:35 [facility] 06-18-2022 Evaluation + Plan note Extrac flavio from: Title:ED Note Author:Grant Jacob PA-C te:06/18/22 Upper respiratory infection (J06.9: Acute upper respiratory infection, unspecified) Orders: loratadine-pseudoephedrine, 1 tab(s), Oral, q12hr for 10 day(s), 20 tab(s), Refill(s) 0, [facility] 1985, 165, cm, 06/18/22 12:19:00 EDT, Height/Length Dosing, 86, kg, 06/18/22 12:19:00 EDT, Weight Dosing Rapid COVID Antigen ([facility]) [facility] [facility] Evaluation + Plan noteExtracted from: Title:ED Note Author:Connor Castellanos DO Date: Chronic left-sided low back pain with left-sided sciatica (M54.42: Lumbago with sciatica, left side) Headache (R51.9: Headache, unspecified) Other chronic pain (G89.29: Other chronic pain) Orders: cyclobenzaprine, 10 mg = 1 tab(s), Oral, TID, PRN Muscle pain, # 15 tab(s), Refills(s) 0, Pharmacy: [facility], 165, cm, 05/28/22 10:56:00 EDT, Height/Length Dosing, 86, kg, 05/28/22 10:56:00 EDT, Weight Dosing ketorolac, 30 mg = 1 mL, Injection, IntraMuscular, Once, Stop date 05/28/22 11:29:00 EDT, STAT, Start date 05/28/22 11:29:00 EDT, 05/28/22 11:29:00 EDT methylPREDNISolone, = 1 packet(s), Oral, As Directed, as directed on package labeling, X 6 day(s), # 21 tab(s), Refills(s) 0, Pharmacy: [facility], 165, cm, 05/28/22 10:56:00 EDT, Height/Length Dosing, 86, kg, 05/28/22 10:56:00 EDT, Weight Dosing naproxen, 500 mg = 1 tab(s), Oral, BID, PRN for pain, # 20 tab(s), Refills(s) 0, Pharmacy: [facility], 165, cm, 05/28/22 10:56:00 EDT, Height/Length Dosing, 86, kg, 05/28/22 10:56:00 EDT, Weight Dosing orphenadrine, 60 mg = 2 mL, Injection, IntraMuscular, Once, Stop date 05/28/22 11:29:00 EDT, STAT, Start date 05/28/22 11:29:00 EDT, 05/28/22 11:29:00 EDT [facility]-14-2022 Hospital Discharge instructions Patient Education 05/28/2022 11:31:52 [...] Follow these instructions at home: Medicines Take pirl-hkw-oyffaks and prescription medicines only as told by your health care provider. Ask your health care provider if the medicine prescribed to you: ?Requires you to avoid driving or using heavy machinery. ?Can cause constipation. You may need to take these actions to prevent or treat constipation: ?Drink enough fluid to keep your urine pale yellow. ?Take vmea-nto-cpzqhhw or prescription medicines. ?Eat foods that are [...] 08/25/2002 Document Revised: 09/19/2019 Document Reviewed: 09/19/2019 [employer] Patient Education 2020 [employer] 05/28/2022 11:31:52 Tension Headache, Adult Tension [...] these instructions at home: Managing pain Take zboa-equ-pxtpaxi and prescription medicines only as told by [...] 08/31/2006 Document Revised: 08/13/2018 Document Reviewed: 12/11/2017 [employer] Patient Education 2020 [employer]. Follow Up Care 05/28/2022 10:44:46 With:BENTLEY LUCERO Address: [address] [place] [address]- Business (1) When:05/31/2022 11:30:41 Comments:Call the office [...] breath, or any new or worsening symptoms. [facility]2022 NoteMicrobiology PROCEDURE: Strep Screen Culture [R1] SOURCE: Throat BODY SITE: COLLECTED DATE/TIME: 02/16/2022 12:08 EDT RECEIVED DATE/TIME: 02/16/2022 14:27 EDT START DATE/TIME: 02/16/2022 14:27 EDT FREE TEXT SOURCE: Cary Archuleta PA-C, PA-C, Kathryn E. FINAL REPORTS Final Report [] Verified Date/Time: 02/18/2022 11:48 EDT No Pathogenic Streptococcus Isolated Performing Locations R1: This test was performed at: [facility], [address] [place] [address], [id number] , , [facility] HospitalComment on above:Performed By: #### [id number], [id number] ####Velez [facility] [address] [place], [place] [id number] NoteInfectious Disease COVID-19 Frequently Asked Questions COVID-19 (coronavirus disease) is an infection that is caused by a large family of viruses. Some viruses cause illness in people and others cause illness in animals like camels, cats, and bats. In some cases, the viruses that cause illness in animals can spread to humans. Where did the coronavirus come from? In August 2019, Kathleen told the World Health Organization (WHO) of several cases of lung disease (human respiratory illness). These cases were linked to an open seafood and livestock market in the city of [facility]. The link to the seafood and [...] and virus naming World Health Organization (WHO): www.who.int/emergencies/diseases/yfktp-pqfnsgzkwfk-3633/technical-g uidance/ttrjgm-orl-lihzeycrmws-disease-(covid-2019)-zdt-uiw-dhnta-yeyz-wryyit-mm Who is at risk for complications from [...] testing. Samples may in (more content not included)...[facility] Discharge instructions Patient Education 01/09/2022 [...] the coronavirus come from? In August 2019, Kathleen told the World Health Organization (WHO) of several cases of lung disease (human respiratory illness). These cases were linked to an open seafood and livestock market in the city of [facility]. The link to the seafood and [...] and virus naming World Health Organization (WHO): www.who.int/emergencies/diseases/vnjcb-cllinnwbikg-3157/technical-g uidance/jxchaf-lqy-eqvwiybgkgd-disease-(covid-2019)-cod-hia-xtngh-priw-xsrtiu-ue Who is at risk for complications from [...] relieve his or her symptoms by using mjcs-xsk-wvrhbjl medicines that treat sneezing, coughing, and runny [...] water are not available, use alcohol-based hand relocation services specialist. Avoid touching your face, mouth, nose, or [...] Prevention (CDC): www.cdc.gov/coronavirus/2019-ncov/travelers/index.html World Health Organization (WHO): www.who.int/emergencies/diseases/rbvxb-eoxevvotafu-4553/travel-advice Know the risks and take action to [...] water are not available, use alcohol-based hand relocation services specialist. Cough or sneeze into a tissue, sleeve, [...] in hot, soapy water or use a cassandra developer. Air-dry your dishes. Wash laundry in hot [...] Health Organization (WHO) Information and news updates: www.who.int/emergencies/diseases/bwotj-isckhprpidd-4673 Coronavirus health topic: www.who.int/health-topics/coronavirus Questions and answers on COVID-19: www.who.int/news-room/q-a-detail/l-l-mlfykqmqippfb Global tracker: who.hc1.com Inc[employer] [place] [employer] (AAP) Information for families: www.healthychildren.org/[place]/health-issues/conditions/chest-lungs/Pages /1685-Psgwt-Hpefwaqjdjw.aspx The coronavirus situation is changing rapidly. Check [...] 12/27/2019 Document Revised: 12/27/2019 Document Reviewed: 12/27/2019 [employer] Patient Education 2019 [employer]. 01/09/2022 15:57:51 COVID-19 COVID-19 COVID-19 is a [...] to fight infection (immunocompromised). Live in a alf or long-term care facility. Have a long-term [...] managed at home with rest, fluids, and ufej-vbq-lrakijd medicines. Treatment for a serious infection usually [...] are safe for you. General instructions Take bkmq-uln-kjoccos and prescription medicines only as told by [...] water are not available, usean alcohol-based hand relocation services specialist. ?Avoid touching your mouth, face, eyes, or [...] water are not available, use alcohol-based hand relocation services specialist. Stay away from other members of your [...] have a weak immunity, live in a alf, or have chronic disease. There is no [...] 10/06/2019 Document Revised: 01/26/2020 Document Reviewed: 10/06/2019 [employer] Patient Education 2020 [employer]. Follow Up Care 01/09/2022 13:51:01 With:BENTLEY LUCERO Address: [address] [place] [address] Business (1) When:01/12/2022 15:45:42 Comments:You should self quarantine for 5 days. Return to the emergency room if your symptoms get worse, youdevelop chest pain, shortness of breath or any new symptoms. [facility]04-28-2022 Evaluation + Plan noteExtracted from: Title:ED Note Author:Paul Moss, Devendra Ramirez te:01/09/22 1. COVID-19 virus infection (U07.1: COVID-19) Orders: ibuprofen, 600 mg = 1 tab(s), Tab, Oral, Once, Stop date 01/09/22 14:06:00 EDT, STAT, Start date 01/09/22 14:06:00 EDT, 01/09/22 14:06:00 EDT Group A Strep by PCR Influenza A&B Ag Rapid COVID Antigen ([facility]) Rapid Strep w/rfx [facility]01-11-2022 NoteInfectious Disease COVID-19 COVID-19 is a respiratory [...] fight infection (immunocompromised). ? Live in a alf or long-term care facility. ? Have a [...] managed at home with rest, fluids, and caik-omd-kqvueum medicines. Treatment for a serious infection usually [...] ? Rest at h (more content not included)...[facility] HospitalEvaluation noteNo InformationNortNaz[facility] Other Evaluation noteNo assessment information available [facility] Work Phone: History general Narrative - Reported* Type Description Date Surgical History appendectomy [facility] Other Hospital course Narrative No data available for this section [facility] No data available for this section [facility] No data available for this section [facility] Summary Purpose Family History No Family History [...] section and content) DATE CREATED AUTHOR 03/22/[address] [facility] DATE CREATED AUTHOR AUTHOR'S ORGANIZ ATION 09/07/2022 [facility] DATE CREATED AUTHOR AUTHOR'S ORGANIZ ATION 01/28/2023 [facility] DATE CREATED AUTHOR AUTHOR'S ORGANIZ ATION 05/27/2023 [facility] DATE CREATED AUTHOR AUTHOR'S ORGANIZ ATION 06/03/2023 [facility] DATE CREATED AUTHOR AUTHOR'S ORGANIZ ATION 10/07/[address] [facility] DATE CREATED AUTHOR AUTHOR'S ORGANIZ ATION 10/07/2023 [facility] d[facility] Specialists EPIC Care Team (unrecognized sect ion and content) Team Status: Inactive Member Role Status Dates Bentley Tristansic , DIRECTOR OF ONLINE EDUCATION-C Primary Care Provider, Attending Provider Active Team Status: Active Member Role Status Dates Bentley Tristansic , DIRECTOR OF ONLINE EDUCATION-C Primary Care Provider Active Team Status: Inactive Member Role Status Dates Bentley Tristansic , DIRECTOR OF ONLINE EDUCATION-C Attending Provider Active Team Status: Active Member Role Status Dates Services [facility] Primary Care Provider Ac tive Team Status: Inactive Member Role Status Dates Bentley Lucero , DIRECTOR OF ONLINE EDUCATION-C Attending Provider Active Services [facility] Care Provider Ac tive REASON FOR [...] BE BASED ON THE PRIMARY CLINICAL RECORDS. [employer] [facility]. provides no warranty or guarantee of the accuracy or completeness of information in this document.
--- NOTE | 2023-10-25 12:52 | ED_ITS ---
HPI - General Adult General Chief complaint: Extremity Injury, Upper Stated complaint: SWELLING IN R HAND Time Seen by Provider: 10/25/23 12:45 Source: patient Mode of arrival: walk-in Limitations: language barrier Limitations comment: pt is deaf History of Present Illness HPI narrative: History was obtained using the bus aide The patient presented to us with a right hand swelling that she noted after she had an IV placed in the ER 5 days ago, the patient does not complain of any fever or chills or any redness but she is complaining of swelling in the area and pain when she make her fist. No other complaints Related Data Home Medications Medication Instructions Recorded Confirmed cholecalciferol (vitamin D3) 25 4,000 unit PO DAILY 05/13/23 10/19/23 mcg (1,000 unit) capsule ferrous sulfate 325 mg (65 mg 36 mg PO DAILY 05/13/23 10/19/23 iron) tablet omega-3 fatty acids 1,000 mg 1,000 mg PO DAILY 05/13/23 10/19/23 capsule omega-3 fatty acids 500 mg capsule 1,500 mg PO DAILY 05/13/23 10/19/23 omeprazole 40 mg capsule,delayed 40 mg PO DAILY 05/13/23 10/19/23 release letrozole 2.5 mg tablet (Femara) 2.5 mg PO DAILY 10/19/23 10/19/23 Previous Rx's Medication Instructions Recorded meclizine 25 mg tablet 25 mg PO TID PRN dizziness #30 tabs 10/21/23 pantoprazole 40 mg tablet,delayed 40 mg PO DAILY 4 weeks #28 tabs 10/21/23 release (Protonix) prednisone 20 mg tablet 40 mg (2 x 20 mg) PO DAILY 5 days 10/21/23 #10 tabs ibuprofen 600 mg tablet 600 mg PO Q8H #9 tabs 10/25/23 Allergies Allergy/AdvReac Type Severity Reaction Status Date / Time Sulfa (Sulfonamide Allergy Rash Verified 10/19/23 12:51 Antibiotics) Review of Systems ROS Status of ROS 10 or more systems reviewed and unremark able except as noted in history and below [facility] Medical History (Updated 10/25/23 @ 12:53 by Janice Wise MD) Infertility Low back pain ?M54.50 - Low back pain, unspecified (ICD-10) Heartburn ?R12 - Heartburn (ICD-10) Asthma ?J45.909 - Unspecified asthma, uncomplicated (ICD-10) Surgical History (Updated 10/15/23 @ 13:25 by Silvia Mendez) Pain management ?R52 - Pain, unspecified (ICD-10) History of cochlear implant ?Z96.21 - Cochlear implant status (ICD-10) H/O removal of cyst ?Z98.890 - Other specified postprocedural states (ICD-10) History of appendectomy ?Z90.49 - Acquired absence of other specified parts of digestive tract (ICD- 10) Social History Smoking status: Never smoker Exam Narrative Exam Narrative: Nurses notes and vital signs reviewed and patient is not hypoxic. General: Well-appearing and in no apparent distress. Skin: Warm, dry, no pallor noted. No rash. Head: Normocephalic, atraumatic. Neck: Supple, non-tender. Eye: Pupils are equal, round and EOMI. No scleral icterus. Ears, Nose, Mouth, and Throat: TM are clear, no nasal mucosal hypertrophy. Oral mucosa is moist, no posterior oropharynx erythema, uvula is mid-line Cardiovascular: Regular Rate and Rhythm without murmur, gallop or rub. Respiratory: No accessory muscle use or respiratory distress. Lungs are clear to auscultation, no wheezing, rales or rhonchi Chest Wall: no tenderness Back: No midline thoracic or lumbar vertebral tenderness. No CVA tenderness Musculoskeletal: normal ROM, no calf or popliteal tenderness, no lower extremity edema/swelling, patient have mild edema on the dorsum of the right hand with no redness no hotness she have mild tenderness on palpation of the third metacarpal. GI: Abdomen is soft, non-distended. Normal bowel sounds. No masses appreciated. No tenderness to palpation. No rebound, guarding, or rigidity noted. Neurological: A&O x4. No cranial nerve dysfunction observed. No truncal ataxia. Moves all extremities. Sensation intact. Psychiatric: Cooperative and interactive. Normal mood and affect. Constitutional Vital Signs, click to edit/add: Last Vital Signs Pulse 72 10/25/23 12:34 Resp 18 10/25/23 12:34 BP 113/85 10/25/23 12:34 Pulse Ox 96 10/25/23 12:34 O2 Del Method Room Air 10/25/23 12:34 Course Vital Signs Vital signs: Vital Signs Pulse Rate 72 10/25/23 12:34 Respiratory Rate 18 10/25/23 12:34 Blood Pressure 113/85 10/25/23 12:34 Pulse Oximetry 96 10/25/23 12:34 Oxygen Delivery Method Room Air 10/25/23 12:34 Pulse Rate 72 10/25/23 12:34 Respiratory Rate 18 10/25/23 12:34 Blood Pressure 113/85 10/25/23 12:34 Pulse Oximetry 96 10/25/23 12:34 Oxygen Delivery Method Room Air 10/25/23 12:34 Medical Decision Making MDM Narrative Medical decision making narrative: The patient presenting with a mild phlebitis right now should be treated with ibuprofen course for 3 days for inflammation She was instructed to stop her on ibuprofen 800 that she have at home and to hydrate well elevate and to come back to us in case of any redness or any progression of her symptoms The patient is to follow up with primary care physician in next 2-3 days or to return to the emergency department should any of the signs or symptoms worsen or new symptoms develop. The patient agrees with the following Diagnosis and Treatment plan and the patient will be discharged home. Discharge Plan Discharge Chief Complaint: Extremity Injury, Upper Clinical Impression: Phlebitis after infusion Qualifiers: Encounter type: initial encounter Qualified Code(s): T80.1XXA - Vascular complications following infusion, transfusion and therapeutic injection, initial encounter Patient Disposition: Home, Self-Care Time of Disposition Decision: 12:53 Condition: Good Prescriptions / Home Meds: New ibuprofen 600 mg tablet 600 mg PO Q8H Qty: 9 0RF Discontinued ibuprofen 800 mg tablet 800 mg PO TID PRN (Reason: pain) No Action omega-3 fatty acids 500 mg capsule 1,500 mg PO DAILY ferrous sulfate 325 mg (65 mg iron) tablet 36 mg PO DAILY omega-3 fatty acids 1,000 mg capsule 1,000 mg PO DAILY omeprazole 40 mg capsule,delayed release(DR/EC) 40 mg PO DAILY Hold Instructions: patient ran out of it cholecalciferol (vitamin D3) 25 mcg (1,000 unit) capsule 4,000 unit PO DAILY letrozole [Femara] 2.5 mg tablet 2.5 mg PO DAILY Rx Instructions: begin between days 2 and 5 of mentrual cycle pantoprazole [Protonix] 40 mg tablet,delayed release (DR/EC) 40 mg PO DAILY 28 Days Qty: 28 0RF prednisone 20 mg tablet 40 mg PO DAILY 5 Days Qty: 10 0RF meclizine 25 mg tablet 25 mg PO TID PRN (Reason: dizziness) Qty: 30 0RF Instructions: IV Infiltration (ED) Stand Alone Forms: Portal Instructions Referrals: Physician,Non-Staff, MD [Primary Care Provider] - 1 week
== END 2023-10-25 13:01 | disposition home or self-care (01) ==
PROVIDERS: Emergency Provider Emergency Medicine
DX: T80.1XXA Vascular complications following infusion, transfusion and therapeutic injection, initial encounter (principal); H91.93 Unspecified hearing loss, bilateral; J45.909 Unspecified asthma, uncomplicated; Z96.21 Cochlear implant status; Z90.49 Acquired absence of other specified parts of digestive tract; Z79.899 Other long term (current) drug therapy; Z98.890 Other specified postprocedural states
CPT/HCPCS: 99283

== ENCOUNTER 2023-10-28 11:12 | Outpatient (OUT) | payer MEDICARE, MEDICAID, SELFPAY ==
--- OUTSIDE RECORDS SUMMARY | 2023-10-28 11:27 | XMS_ITS | CCD ---
Author Name Unknown Address [address] [place] [address] Organization [facility] Care Team Providers Care Supervisory Historian Name Role Phone DION JACINTO Unavailable Unavailable [...] Admitting Unavailable Connor Castellanos Attending Unavailable Nic SHIPPING PACKER-C Bentley Hu Primary Care Provider Nic SHIPPING PACKER-Rosy Hu Attending Provider [phone] LAKSHMIPATHY ., NARENDRANATH Admitting Megha vailable LAKSHMIPATHY [...] Unavailani e ALEXANDRO HERR Consulting Unavailable Spasic, SHIPPING PACKER-C Bentley Hu Attending Provider [facility] Primary Care [facility] ider Spasic, Bentley E Primary Care Unavailable Spasic, Bentley E Attending Unavailable Spasic, Bentley E Admitting Unavailable Spasic, Bentley E Attending Unavailable Spasic, Bentley E Admitting Unavailable Spasic, Bentley E Primary Care Unavailable Spasic, Bentley E Attending Unavailable Spasic, Bentley E Admitting Unavailable Spasic, Bentley E Attending Unavailable Spasic, Bentley E Admitting Unavailable [facility] Primary Care U navailable Day FERRIS, Anddavid Lester Attending Unavailable Giedraitis , Andrius Vcarolyn Attending Unavailable Giemelynraitis , Andrius Vytnelli Attending Unavailable Gieditis , Andrius Vytnelli Attending Unavailable ADRIANNA ANDINO Attending Unavailable Allergies Allergy Classification Reported Allergen(s) Allergy Type Date of Onset Reaction(s) Facility (6 sources) Sulfonamides (Antibiotic); Translations: [sulfa drugs] Drug allergy Cutaneous eruption (morphologic abnormality) [facility] (1 source) Sulfacetamide / Sulfur Drug Allergy Unknown [facility] Other (5 sources) Sulfonamides (Antibiotic); Translations: [Sulfa (Sulfonamide Antibiotics)] Allergy to substance 05-15-20 19 [facility] (1 source) Sulfonamides (Antibiotic) Drug allergy (disorder) 04-11-20 17 [facility] Medications Current Medications Medication Drug [...] Daily, # 3 tab(s), Refills(s) 0, Pharmacy: [facility], 165, cm, 06/19/20 21:06:00 EDT, Height/Length Dosing, 90.5, kg, 06/19/20 21:06:00 EDT, Weight Dosing Start Date: 06/20/20 Status: Ordered cetirizine hydrochloride 10 mg oral tablet (5 sources) Histamine-1 Receptor Antagonist Start: 06-20-2020 take 1 tablet by mouth once daily cetirizine 10 mg Tab 10 mg = 1 tab(s), Oral, Daily, # 30 tab(s), Refills(s) 0, Pharmacy: [facility] 1986, 165, cm, 06/19/20 21:06:00 [...] pain, # 15 tab(s), Refills(s) 0, Pharmacy: [facility] 1985, 165, cm, 05/28/22 10:56:00 [...] BID, 16 gram, Refill(s) 0, each nostril, [facility], 165, cm, 06/19/20 21:06:00 EDT, Height/Length Dosing, 90.5, kg, 06/19/20 21:06:00 EDT, Weight Dosing Start Date: 06/20/20 Status: Ordered fluticasone propionate 0.05 mg/actuat metered dose nasal spray (3 sources) Corticosteroid Start: 06-20-2020 take 1 spray(s) nasal route twice daily Flonase 0.05 mg/inh nasal spray 1 spray(s), Nasal, BID, 16 gram, Refill(s) 0, each nostril, [facility], 165, cm, 06/19/20 21:06:00 [...] for 10 day(s), 20 tab(s), Refill(s) 0, [facility], 165, cm, 06/18/22 12:19:00 EDT, Height/Length Dosing, 86, kg, 06/18/22 12:19:00 EDT, Weight Dosing Start Date: 06/18/22 Stop Date: 06/28/22 Status: Ordered methylPREDNISolone 4 mg oral tablet (1 source) Corticosteroid Start: 05-28-20 End: 06-03-20 Medrol 4 mg Tab = 1 packet(s), Oral, As Directed, as directed on package labeling, X 6 day(s), # 21 tab(s), Refills(s) 0, Pharmacy: [facility] 1985, 165, cm, 05/28/22 10:56:00 [...] pain, # 20 tab(s), Refills(s) 0, Pharmacy: [facility] 1985, 165, cm, 05/28/22 10:56:00 EDT, Height/Length Dosing, 86, kg, 05/28/22 10:56:00 EDT, Weight Dosing Start Date: 05/28/22 Status: Ordered Wilsey 3 (1 source) Wilsey 3 Active Wilsey 2-Wtu-Ihd-Fish Oil (Fish Oil) 1,000 mg (120 mg-180 mg) Capsule (4 sources) Start: 03-12-20 take 1 capsule by mouth once daily Wilsey 6-Lhl-Spt-Fish Oil (Fish Oil) 1,000 mg (120 mg-180 mg) Capsule Active 1 CAP PO Daily March 12, 2022 12:00am Start: 03-12-2022 take 1 capsule by [facility] once daily Wilsey 6-Vsg-Dyg-Fish Oil (Fish Oil) 1,000 mg (120 mg-180 [...] Nausea/Vomiting, # 12 tab(s), Refills(s) 0, Pharmacy: [facility] 1985, 165, cm, 03/05/21 17:57:00 EDT, Height/Length Dosing, 91, kg, 03/05/21 17:57:00 EDT, Weight Dosing Start Date: 03/05/21 Status: Ordered pantoprazole 40 mg delayed release oral tablet (3 sources) Proton Pump Inhibitor Start: 04-04-2021 take 1 tablet by mouth once daily Protonix 40 mg Tab-EC 40 mg = 1 tab(s), Oral, Daily, # 30 tab(s), Refills(s) 0, Pharmacy: [facility] 1985, 165, cm, 04/04/21 21:22:00 [...] Daily, # 30 tab(s), Refills(s) 0, Pharmacy: [facility] 1986, 165, cm, 04/04/21 21:22:00 [...] Daily, # 3 tab(s), Refills(s) 0, Pharmacy: [facility] 1986, 165, cm, 06/19/20 21:06:00 [...] monitoron 0 05-25-2023 [place] [address] Cardiac Event Monitor Signed Patient: Leena Interiano MR#: [id number] : 1990 Acct:[id number] Age/Sex: 33 / F ADM Date: 04/22/23 Loc: Room: Type: [facility] Attending Dr: Bentley TIMMONS Copies to: Darrin Jay MD, [facility] SHANELLE Galdamez Ordering Provider: SHANELLE Galdamez [...] 05/25/23 1521 Dictated By: Darrin Jay MD, [facility] 05/25/23 1047 Signed By: 05/26/23 1402 [facility] XR cervical spine LAT/FLX/EX Ton 04-22-2023 XR cervical spine LAT/FLX/EXT [facility] [place] [address] XRay Report Signed Patient: Leena Interiano MR#: [id number] : 1990 Acct:[id number] Age/Sex: 33 / F ADM Date: 04/22/23 Loc: Room: Type: [facility] Attending Dr: Bentley TIMMONS Copies to: [...] Gentry Acevedo M.D.04/22/2023 1:38 PM Dictation Location: [place] [address] Transcribed By: [facility] 04/22/23 1338 Dictated By: Gentry Acevedo DO 04/22/23 1337 Signed By: 04/22/23 1338 [facility] A1C with Estimated Average G edn 04-16-2023 Glucose [Mass/Vol] 111 mg/dL Normal [facility] Comment on above: Result Comment: PERF ORMED BY: [facility] [address] [place] [address] PATHOLOGIST VISUAL MERCHANDISING MANAGER PRICE ZUNIGA M.D. Performed By: #### T SH3 wRFLX, A1C WTH eA, CBC, CALLUM, CMP, FE and TIBC, B12, [id number] ####[facility]#### INSULIN ####[facility] , HbA1c (Bld) [Mass fraction] 5.5 % Normal 4.3-5.6 [facility] Comment on above: Result Comment: Incr eased risk for diabetes: 5.7 - 6.4 diabetes: >6.4 glycemic control for adults with diabetes: <7.0 Performed By: #### T SH3 wRFLX, A1C WTH eA, CBC, CALLUM, CMP, FE and TIBC, B12, [id number] ####[facility]#### INSULIN ####[facility] , Alanine aminotransferase [En zymatic activity/volume] in Serum or PlasmaOrdered By: Bentley Lucero on 04-16-2023 ALT [Catalytic activity/Vol] 16 U/L 7-52 [facility] Albumin [Mass/volume] in Ser um or Plasma by Bromocresol green (BCG) dye binding methoOrdered By: Bentley Lucero on 04-16-2023 Albumin BCG dye [Mass/Vol] 4.3 g/dL 3.5-5.7 [facility] Alkaline phosphatase [Enzyma tic activity/volume] in Serum or PlasmaOrdered By: Bentley Lucero on 04-16-2023 ALP [Catalytic activity/Vol] 52 U/L 34-104 [facility] Aspartate aminotransferase [ Enzymatic activity/volume] in Serum or PlasmaOrdered By: Bentley Lucero on 04-16-2023 AST [Catalytic activity/Vol] 16 U/L 13-39 [facility] Basophils Auto (Bld) [#/Vol] Ordered By: Bentley Lucero on 04-16-2023 Basophils (Bld) [#/Vol] 0.0 10*3/uL 0.0-0.2 [facility] Basophils/100 WBC Auto (Bld) Ordered By: Bentley Tristansic on 04-16-2023 Basophils/100 WBC (Bld) 0.8 % . [facility] Bilirubin.total [Mass/volume ] in Serum or PlasmaOrdered By: Bentley Spasic on 04-16-2023 Bilirubin [Mass/Vol] 0.4 mg/dL 0.3-1.0 [facility] Calcium [Mass/volume] in Ser um or PlasmaOrdered By: Bentley Spasic on 04-16-2023 Calcium [Mass/Vol] 9.0 mg/dL 8.6-10.3 [facility] Carbon dioxide, total [Moles /volume] in Serum or PlasmaOrdered By: Bentley [facility] on 04-16-2023 CO2 [Moles/Vol] 24.8 mmol/L 21.0-31.0 [facility] Chloride [Moles/volume] in S hugo or PlasmaOrdered By: Bentley Spasic on 04-16-2023 Chloride [Moles/Vol] 109 mmol/L 98-107 [facility] Complete Blood Count Auto Di ffon 04-16-2023 Basophils (Bld) [#/Vol] 0.0 10*3/uL Normal 0.0-0.2 [facility] Comment on above: Result Comment: PERF ORMED BY: [place] [address] PATHOLOGIST VISUAL MERCHANDISING MANAGER PRICE ZUNIGA M.D. Performed By: #### T SH3 wRFLX, A1C WTH eA, CBC, CALLUM, CMP, FE and TIBC, B12, [id number] #### [place] [address] [place] #### INSULIN #### [facility] , Basophils/100 WBC (Bld) 0.8 % Normal . [facility] Comment on above: Performed By: #### T SH3 wRFLX, A1C WTH eA, CBC, CALLUM, CMP, FE and TIBC, B12, [id number] #### [facility] [address] [place] [address] #### INSULIN #### [facility] , Eosinophils (Bld) [#/Vol] 0.1 10*3/uL Normal 0.0-0.45 [facility] Comment on above: Performed By: #### T SH3 wRFLX, A1C WTH eA, CBC, CALLUM, CMP, FE and TIBC, B12, [id number] #### [address] #### INSULIN #### [facility] , Eosinophils/100 WBC (Bld) 3.0 % Normal . [facility] Comment on above: Performed By: #### T SH3 wRFLX, A1C WTH eA, CBC, CALLUM, CMP, FE and TIBC, B12, [id number] #### [facility] [address] [place] [address] #### INSULIN #### [facility] , Erythrocyte distribution width (RBC) [Ratio] 13.3 % Normal 11.9-15.3 [facility] Comment on above: Performed By: #### T SH3 wRFLX, A1C WTH eA, CBC, CALLUM, CMP, FE and TIBC, B12, [id number] #### [facility] [address] [place] [address] [place] #### INSULIN #### [facility] , Hematocrit (Bld) [Volume fraction] 36.5 % Normal 34.0-46.4 [facility] Comment on above: Performed By: #### T SH3 wRFLX, A1C WTH eA, CBC, CALLUM, CMP, FE and TIBC, B12, [id number] #### [facility] [address] [place] [address] #### INSULIN #### [facility] , Hemoglobin (Bld) [Mass/Vol] 12.3 g/dL Normal 11.8-15.4 [facility] Comment on above: Performed By: #### T SH3 wRFLX, A1C WTH eA, CBC, CALLUM, CMP, FE and TIBC, B12, [id number] #### [facility] [address] [place] [address] #### INSULIN #### [facility] , Lymphocytes (Bld) [#/Vol] 2.2 10*3/uL Normal 1.00-4.8 [facility] Comment on above: Performed By: #### T SH3 wRFLX, A1C WTH eA, CBC, CALLUM, CMP, FE and TIBC, B12, [id number] #### [facility] [address] [place] [address] #### INSULIN #### [facility] , Lymphocytes/100 WBC (Bld) 43.7 % Normal . [facility] Comment on above: Performed By: #### T SH3 wRFLX, A1C WTH eA, CBC, CALLUM, CMP, FE and TIBC, B12, [id number] #### [facility] [address] [place] [address] #### INSULIN #### [facility] , MCH (RBC) [Entitic mass] 27.0 pg Normal 24.7-34.3 [facility] Comment on above: Performed By: #### T SH3 wRFLX, A1C WTH eA, CBC, CALLUM, CMP, FE and TIBC, B12, [id number] #### [facility] [address] [place] [address] [place] #### INSULIN #### [facility] , MCV (RBC) [Entitic vol] 79.9 fL Low 80-100 [facility] Comment on above: Performed By: #### T SH3 wRFLX, A1C WTH eA, CBC, CALLUM, CMP, FE and TIBC, B12, [id number] #### [facility] [address] [place] [address] [place] #### INSULIN #### [facility] , Mean Corpuscular HGB Conc 33.8 g/dL Normal 32.0-35.0 [facility] Comment on above: Performed By: #### T SH3 wRFLX, A1C WTH eA, CBC, CALLUM, CMP, FE and TIBC, B12, [id number] #### [facility] [address] [place] [address] #### INSULIN #### [facility] , Monocytes (Bld) [#/Vol] 0.3 10*3/uL Normal 0.0-0.8 [facility] Comment on above: Performed By: #### T SH3 wRFLX, A1C WTH eA, CBC, CALLUM, CMP, FE and TIBC, B12, [id number] #### [facility] [address] [place] [address] #### INSULIN #### [facility] , Monocytes/100 WBC (Bld) 5.2 % Normal . [facility] Comment on above: Performed By: #### T SH3 wRFLX, A1C WTH eA, CBC, CALLUM, CMP, FE and TIBC, B12, [id number] #### [facility] [address] [place] [address] #### INSULIN #### [facility] , Neutrophils (Bld) [#/Vol] 2.3 10*3/uL Normal 1.8-7.7 [facility] Comment on above: Performed By: #### T SH3 wRFLX, A1C WTH eA, CBC, CALLUM, CMP, FE and TIBC, B12, [id number] #### [facility] [address] [place] [address] [place] #### INSULIN #### [facility] , Neutrophils/100 WBC (Bld) 47.3 % Normal . [facility] Comment on above: Performed By: #### T SH3 wRFLX, A1C WTH eA, CBC, CALLUM, CMP, FE and TIBC, B12, [id number] #### [facility] [address] [place] [address] #### INSULIN #### [facility] , NRBC% 0.2 /100{WBC} Normal 0-0.5 [facility] Comment on above: Performed By: #### T SH3 wRFLX, A1C WTH eA, CBC, CALLUM, CMP, FE and TIBC, B12, [id number] #### [facility] [address] [place] [address] [place] #### INSULIN #### [facility] , Platelet mean volume (Bld) [Entitic vol] 9.2 fL Normal 6.3-10.7 [facility] Comment on above: Performed By: #### T SH3 wRFLX, A1C WTH eA, CBC, CALLUM, CMP, FE and TIBC, B12, [id number] #### [address] #### INSULIN #### [facility] , Platelets (Bld) [#/Vol] 260 10*3/uL Normal 150-450 [facility] Comment on above: Performed By: #### T SH3 wRFLX, A1C WTH eA, CBC, CALLUM, CMP, FE and TIBC, B12, [id number] #### [place] [address] [place] #### INSULIN #### [facility] , RBC (Bld) [#/Vol] 4.57 10*6/uL Normal 3.60-5.00 [facility] Comment on above: Performed By: #### T SH3 wRFLX, A1C WTH eA, CBC, CALLUM, CMP, FE and TIBC, B12, [id number] #### [facility] [address] [place] [address] [place] #### INSULIN #### [facility] , WBC (Bld) [#/Vol] 4.9 10*3/uL Normal 3.8-11.6 [facility] Comment on above: Performed By: #### T SH3 wRFLX, A1C WTH eA, CBC, CALLUM, CMP, FE and TIBC, B12, [id number] #### [facility] [address] [place] [address] [place] #### INSULIN #### [facility] , Comprehensive Metabolic Pane adam 04-16-2023 Albumin [Mass/Vol] 4.3 g/dL Normal 3.5-5.7 [facility] Comment on above: Performed By: #### T SH3 wRFLX, A1C WTH eA, CBC, CALLUM, CMP, FE and TIBC, B12, [id number] #### [facility] [address] [place] [address] [place] #### INSULIN #### [facility] , Albumin/Globulin [Mass ratio] 1.7 {ratio} Normal [facility] Comment on above: Performed By: #### T SH3 wRFLX, A1C WTH eA, CBC, CALLUM, CMP, FE and TIBC, B12, [id number] #### [facility] [address] [place] [address] [place] #### INSULIN #### [facility] , ALP [Catalytic activity/Vol] 52 U/L Normal 34-104 [facility] Comment on above: Performed By: #### T SH3 wRFLX, A1C WTH eA, CBC, CALLUM, CMP, FE and TIBC, B12, [id number] #### [facility] [address] [place] [address] [place] #### INSULIN #### [facility] , ALT [Catalytic activity/Vol] 16 U/L Normal 7-52 [facility] Comment on above: Performed By: #### T SH3 wRFLX, A1C WTH eA, CBC, CALLUM, CMP, FE and TIBC, B12, [id number] #### [facility] [address] [place] [address] [place] #### INSULIN #### [facility] , Anion gap [Moles/Vol] 10.1 mmol/L Normal 6.0-15.0 [facility] Comment on above: Performed By: #### T SH3 wRFLX, A1C WTH eA, CBC, CALLUM, CMP, FE and TIBC, B12, [id number] #### [facility] [address] [place] [address] [place] #### INSULIN #### [facility] , AST [Catalytic activity/Vol] 16 U/L Normal 13-39 [facility] Comment on above: Performed By: #### T SH3 wRFLX, A1C WTH eA, CBC, CALLUM, CMP, FE and TIBC, B12, [id number] #### [facility] [address] [place] [address] #### INSULIN #### [facility] , Bilirubin [Mass/Vol] 0.4 mg/dL Normal 0.3-1.0 [facility] Comment on above: Performed By: #### T SH3 wRFLX, A1C WTH eA, CBC, CALLUM, CMP, FE and TIBC, B12, [id number] #### [facility] [address] [place] [address] #### INSULIN #### [facility] , Calcium [Mass/Vol] 9.0 mg/dL Normal 8.6-10.3 [facility] Comment on above: Performed By: #### T SH3 wRFLX, A1C WTH eA, CBC, CALLUM, CMP, FE and TIBC, B12, [id number] #### [facility] [address] [place] [address] [place] #### INSULIN #### [facility] , Chloride [Moles/Vol] 109 mmol/L High 98-107 [facility] Comment on above: Performed By: #### T SH3 wRFLX, A1C WTH eA, CBC, CALLUM, CMP, FE and TIBC, B12, [id number] #### [facility] [address] [place] [address] [place] #### INSULIN #### [facility] , CO2 [Moles/Vol] 24.8 mmol/L Normal 21.0-31.0 [facility] Comment on above: Performed By: #### T SH3 wRFLX, A1C WTH eA, CBC, CALLUM, CMP, FE and TIBC, B12, [id number] #### [facility] [address] [place] [address] [place] #### INSULIN #### [facility] , Creatinine [Mass/Vol] 0.84 mg/dL Normal 0.60-1.20 [facility] Comment on above: Performed By: #### T SH3 wRFLX, A1C WTH eA, CBC, CALLUM, CMP, FE and TIBC, B12, [id number] #### [facility] [address] [place] [address] #### INSULIN #### [facility] , GFR/1.73 sq M.predicted MDRD (S/P/Bld) [Vol rate/Area] mL/min/{1.73_m2} [facility] Comment on above: Performed By: #### T SH3 wRFLX, A1C WTH eA, CBC, CALLUM, CMP, FE and TIBC, B12, [id number] #### [facility] [address] [place] [address] [place] #### INSULIN #### [facility] , Globulin (S) [Mass/Vol] 2.6 g/dL Normal [facility] Comment on above: Performed By: #### T SH3 wRFLX, A1C WTH eA, CBC, CALLUM, CMP, FE and TIBC, B12, [id number] #### [facility] [address] [place] [address] [place] #### INSULIN #### [facility] , Glucose [Mass/Vol] 116 mg/dL High 70-100 [facility] Comment on above: Result Comment: [place] Glucose Reference Range is dependent on time and content of last meal. Glucose of more than 200 mg/dL in a nonstressed, ambulatory subject supports the diagnosis of Diabetes Mellitus. ADA recommended reference range Performed By: #### T SH3 wRFLX, A1C WTH eA, CBC, CALLUM, CMP, FE and TIBC, B12, [id number] #### [facility] [address] [place] [address] [place] #### INSULIN #### [facility] , Potassium [Moles/Vol] 3.9 mmol/L Normal 3.5-5.1 [facility] Comment on above: Performed By: #### T SH3 wRFLX, A1C WTH eA, CBC, CALLUM, CMP, FE and TIBC, B12, [id number] #### [facility] [address] [place] [address] [place] #### INSULIN #### [facility] , Protein [Mass/Vol] 6.9 g/dL Normal 6.4-8.9 [facility] Comment on above: Performed By: #### T SH3 wRFLX, A1C WTH eA, CBC, CALLUM, CMP, FE and TIBC, B12, [id number] #### [facility] [address] [place] [address] [place] #### INSULIN #### [facility] , Sodium [Moles/Vol] 140 mmol/L Normal 136-145 [facility] Comment on above: Performed By: #### T SH3 wRFLX, A1C WTH eA, CBC, CALLUM, CMP, FE and TIBC, B12, [id number] #### [facility] [address] [place] [address] [place] #### INSULIN #### [facility] , Urea nitrogen [Mass/Vol] 14 mg/dL Normal 7-25 [facility] Comment on above: Performed By: #### T SH3 wRFLX, A1C WTH eA, CBC, CALLUM, CMP, FE and TIBC, B12, [id number] #### [facility] [address] [place] [address] [place] #### INSULIN #### [facility] , Creatinine [Mass/volume] in Serum or PlasmaOrdered By: Bentley Lucero on 04-16-2023 Creatinine [Mass/Vol] 0.84 mg/dL 0.60-1.20 [facility] Eosinophils Auto (Bld) [#/Vo l]Ordered By: Bentley Lucero on 04-16-2023 Eosinophils (Bld) [#/Vol] 0.1 10*3/uL 0.0-0.45 [facility] Eosinophils/100 WBC Auto (Bl d)Ordered By: Bentley Lucero on 04-16-2023 Eosinophils/100 WBC (Bld) 3.0 % . [facility] Erythrocyte distribution wid th Auto (RBC) [Ratio]Ordered By: Bentley Lucero on 04-16-2023 Erythrocyte distribution width (RBC) [Ratio] 13.3 % 11.9-15.3 [facility] Ferritinon 04-16-2023 Ferritin [Mass/Vol] 12.7 ng/mL Normal 11.0-306.8 [facility] Comment on above: Performed By: #### T SH3 wRFLX, A1C WTH eA, CBC, CALLUM, CMP, FE and TIBC, B12, [id number] #### [facility] [address] #### INSULIN #### [facility] , Ferritin [Mass/volume] in Se rum or PlasmaOrdered By: Bentley Lucero on 04-16-2023 Ferritin [Mass/Vol] 12.7 ng/mL 11.0-306.8 [facility] Globulin Calc (S) [Mass/Vol] Ordered By: Bentley Lucero on 04-16-2023 Globulin (S) [Mass/Vol] 2.6 g/dL [facility] Glucose [Mass/volume] in Ser um or PlasmaOrdered By: Bentley Lucero on 04-16-2023 Glucose [Mass/Vol] 116 mg/dL 70-100 [facility] Comment on above: ADA recommended refe [...] from glycated hemoglobin (Bld) [Mass/Vol] 111 mg/dL [facility] Hematocrit Auto (Bld) [Volum e fraction]Ordered By: Bentley Lucero on 04-16-2023 Hematocrit (Bld) [Volume fraction] 36.5 % 34.0-46.4 [facility] Hemoglobin A1c percentageOrd ered By: Bentley Lucero on 04-16-2023 HbA1c (Bld) [Mass fraction] 5.5 % 4.3-5.6 [facility] Comment on above: Increased risk for d iabetes: 5.7 - 6.4diabetes: >6.4glycemic control for adults with diabetes: <7.0 Hemoglobin [Mass/volume] in BloodOrdered By: Bentley Lucero on 04-16-2023 Hemoglobin (Bld) [Mass/Vol] 12.3 g/dL 11.8-15.4 [facility] Insulinon 04-16-2023 Insulin 44.2 u[iU]/mL High 2.6-24.9 [facility] Comment on above: Result Comment: Perf ormed at: CB - [facility] [place] [id number] [employer] [place]: Arturo Souza PhD, Phone: [phone] PERFORMED BY: [facility] [address] [place] [address] PATHOLOGIST VISUAL MERCHANDISING MANAGER PRICE ZUNIGA M.D. Performed By: #### T SH3 wRFLX, A1C WTH eA, CBC, CALLUM, CMP, FE and TIBC, B12, [id number] ####[facility] [address]#### INSULIN ####[facility] , Iron [Mass/volume] in Serum or PlasmaOrdered By: Bentley Lucero on 04-16-2023 Iron [Mass/Vol] 55 ug/dL 50-212 [facility] Iron and TIBC Profileon 08-0 % Iron Saturation 16.0 % Low 20-50 [facility] Comment on above: Performed By: #### T SH3 wRFLX, A1C WTH eA, CBC, CALLUM, CMP, FE and TIBC, B12, [id number] #### [facility] [address] [place] [address] [place] #### INSULIN #### [facility] , Iron [Mass/Vol] 55 ug/dL Normal 50-212 [facility] Comment on above: Performed By: #### T SH3 wRFLX, A1C WTH eA, CBC, CALLUM, CMP, FE and TIBC, B12, [id number] #### [facility] [address] [place] [address] [place] #### INSULIN #### [facility] , Total Iron Binding Capacity 344 ug/dL Normal 255-450 [facility] Comment on above: Performed By: #### T SH3 wRFLX, A1C WTH eA, CBC, CALLUM, CMP, FE and TIBC, B12, [id number] #### [facility] [address] [place] [address] [place] #### INSULIN #### [facility] , Transferrin [Mass/Vol] 246 mg/dL Normal 203-362 [facility] Comment on above: Performed By: #### T SH3 wRFLX, A1C WTH eA, CBC, CALLUM, CMP, FE and TIBC, B12, [id number] #### [facility] [address] [place] [address] [place] #### INSULIN #### [facility] , Iron binding capacity [Mass/ volume] in Serum or PlasmaOrdered By: Bentley Lucero on 04-16-2023 Iron binding capacity [Mass/Vol] 344 ug/dL 255-450 [facility] Iron saturation [Mass Fracti on] in Serum or PlasmaOrdered By: Bentley Lucero on 04-16-2023 Iron saturation [Mass fraction] 16.0 % 20-50 [facility] Leukocytes [#/volume] correc flavio for nucleated erythrocytes in Blood by Automated counOrdered By: Bentley Lucero on 04-16-2023 WBC corrected for nucl RBC Auto (Bld) [#/Vol] 4.9 10*3/uL 3.8-11.6 [facility] Lymphocytes Auto (Bld) [#/Vo l]Ordered By: Bentley Lucero on 04-16-2023 Lymphocytes (Bld) [#/Vol] 2.2 10*3/uL 1.00-4.8 [facility] Lymphocytes/100 WBC Auto (Bl d)Ordered By: Bentley Lucero on 04-16-2023 Lymphocytes/100 WBC (Bld) 43.7 % . [facility] MCH Auto (RBC) [Entitic mass ]Ordered By: Bentley Lucero on 04-16-2023 MCH (RBC) [Entitic mass] 27.0 pg 24.7-34.3 [facility] MCHC Auto (RBC) [Mass/Vol]Or dered By: Bentley Lucero on 04-16-2023 MCHC (RBC) [Mass/Vol] 33.8 g/dL 32.0-35.[address] [facility] MCV Auto (RBC) [Entitic vol] Ordered By: Bentley Englishc on 04-16-2023 MCV (RBC) [Entitic vol] 79.9 fL 80-100 [facility] Monocytes Auto (Bld) [#/Vol] Ordered By: Bentley Englishc on 04-16-2023 Monocytes (Bld) [#/Vol] 0.3 10*3/uL 0.0-0.8 [facility] Monocytes/100 WBC Auto (Bld) Ordered By: Bentley Englishc on 04-16-2023 Monocytes/100 WBC (Bld) 5.2 % . [facility] Neutrophils Auto (Bld) [#/Vo l]Ordered By: Bentley Tristansic on 04-16-2023 Neutrophils (Bld) [#/Vol] 2.3 10*3/uL 1.8-7.7 [facility] Neutrophils/100 WBC Auto (Bl d)Ordered By: Bentley Englishc on 04-16-2023 Neutrophils/100 WBC (Bld) 47.3 % . [facility] No Panel InformationOrdered By: Bentley Lucero on 04-16-2023 Estimated GFR (CKD-EPI) > 60.0 mL/Min [facility] Creatinine Clearance (Chem N/A [facility] Nucleated erythrocytes [Pres ence] in Blood by Automated countOrdered By: Bentley Lucero on 04-16-2023 Nucleated RBC Auto Ql (Bld) 0.2 /100{WBC} 0-0.5 [facility] Platelet mean volume Auto (B ld) [Entitic vol]Ordered By: Bentley Lucero on 04-16-2023 Platelet mean volume (Bld) [Entitic vol] 9.2 fL 6.3-10.7 [facility] Platelets Auto (Bld) [#/Vol] Ordered By: Bentley Lucero on 04-16-2023 Platelets (Bld) [#/Vol] 260 10*3/uL 150-450 [facility] Potassium [Moles/volume] in Serum or PlasmaOrdered By: Bentley Lucero on 04-16-2023 Potassium [Moles/Vol] 3.9 mmol/L 3.5-5.1 [facility] Protein [Mass/volume] in Ser um or PlasmaOrdered By: Bentley Lucero on 04-16-2023 Protein [Mass/Vol] 6.9 g/dL 6.4-8.9 [facility] RBC Auto (Bld) [#/Vol]Ordere d By: Bentley Lucero on 04-16-2023 RBC (Bld) [#/Vol] 4.57 10*6/uL 3.60-5.00 [facility] Serum or plasma albumin/glob ulin mass ratioOrdered By: Bentley Lucero on 04-16-2023 Albumin/Globulin [Mass ratio] 1.7 {ratio} [facility] Serum or plasma anion gap de terminationOrdered By: Bentley Lucero on 04-16-2023 Anion gap [Moles/Vol] 10.1 mmol/L 6.0-15.0 [facility] Serum or plasma insulin jose urement (units/volume)Ordered By: Bentley Lucero on 04-16-2023 Insulin Qn 44.2 u[iU]/mL 2.6-24.9 [facility] Comment on above: Performed at: [address] [id number] Director: Arturo Souza PhD, Phone: [phone] Sodium [Moles/volume] in Ser um or PlasmaOrdered By: Bentley Lucero on 04-16-2023 Sodium [Moles/Vol] 140 mmol/L 136-145 [facility] Thyroid Stim Hormone w/Rflxo n 04-16-2023 Thyroid Stim Hormone w/Rflx 1.14 u[iU]/mL Normal 0.45-5.33 [facility] Comment on above: Performed By: #### T SH3 wRFLX, A1C WTH eA, CBC, CALLUM, CMP, FE and TIBC, B12, [id number] #### [facility] [address] [place] [address] #### INSULIN #### [facility] , Thyrotropin [Units/volume] i n Serum or PlasmaOrdered By: Bentley Lucero on 04-16-2023 TSH Qn 1.14 m[IU]/L 0.45-5.33 [facility] Transferrin [Mass/volume] in Serum or PlasmaOrdered By: Bentley Lucero on 04-16-2023 Transferrin [Mass/Vol] 246 mg/dL 203-362 [facility] Urea nitrogen [Mass/volume] in Serum or PlasmaOrdered By: Bentley Lucero on 04-16-2023 Urea nitrogen [Mass/Vol] 14 mg/dL 7-25 [facility] Vitamin B12on 04-16-2023 Cobalamin (Vitamin B12) [Mass/Vol] 195 pg/mL Normal 180-914 [facility] Comment on above: Performed By: #### T SH3 wRFLX, A1C WTH eA, CBC, CALLUM, CMP, FE and TIBC, B12, [id number] #### [facility] [address] [place] [address] [place] #### INSULIN #### [facility] , Vitamin B12 ser/plasOrdered By: Bentley Lucero on 04-16-2023 Cobalamin (Vitamin B12) [Mass/Vol] 195 pg/mL 180-914 [facility] Vitamin D 25 Hydroxy Totalon 04-16-2023 Vitamin D 25 Hydroxy Total 21.1 ng/mL Low 30-100 [facility] Comment on above: Result Comment: [place] MIN D STATUS 25(OH)VITAMIN D RANGE (ng/mL) Deficient <20 Insufficient 20 to <30 Sufficient 30 to 100 Reference: Briana Billy, Brenton VARGAS, et al. Evaluation,treatment, and prevention of vitamin D deficiency; an Endocrine Society clinical practice guideline. JCEM. 2010; 96(7):1911-30. PERFORMED BY: [facility] [address] [place] [address] PATHOLOGIST VISUAL MERCHANDISING MANAGER PRICE ZUNIGA M.D. Performed By: #### T SH3 wRFLX, A1C WTH eA, CBC, CALLUM, CMP, FE and TIBC, B12, [id number] ####[facility]#### INSULIN ####[facility] , Vitamin D+Metabolites [Mass/ volume] in Serum or PlasmaOrdered By: Bentley Lucero on 04-16-2023 Vitamin D+Metabolites [Mass/Vol] 21.1 ng/mL 30-100 [facility] Comment on above: VITAMIN D STATUS 25( [place])VITAMIN D RANGE (ng/mL) Deficient <20 Insufficient 20 to <30Sufficient 30 to 100Reference: Briana Billy, Brenton VARGAS, et al. Evaluation,treatment, and prevention of vitamin D deficiency; an Endocrine Society clinical practice guideline. JCEM. 2010; 96(7):1911-30. WBC Auto (Bld) [#/Vol]Ordere d By: Bentley Lucero on 04-16-2023 WBC (Bld) [#/Vol] 4.9 10*3/uL 3.8-11.6 [facility] ER URINE PROFILEon 3 Bilirubin Ql (U) Negative Normal NEGATIVE [facility] Comment on above: Performed By: #### P REGU, ERUR, UMICRO #### [facility] [address] [address] [address] Samm Hurtado Clarity (U) CLEAR Normal CLEAR [facility] Comment on above: Performed By: #### P REGU, ERUR, UMICRO #### [facility] [address] [address] [address] Samm Hurtado Color (U) YELLOW Normal YELLOW [facility] Comment on above: Performed By: #### P REGU, ERUR, UMICRO #### [facility] [address] [address] [address] Samm OVALLE A micrscopic examination will be performed if indicated. Normal [facility] Comment on above: Performed By: #### P REGU, ERUR, UMICRO #### [facility] [address] [address] [address] Samm Hurtado Glucose Ql (U) Negative Normal NEGATIVE [facility] Comment on above: Performed By: #### P REGU, ERUR, UMICRO #### [facility] [address] [address] [address] Samm Hurtado Hemoglobin Ql (U) LARGE Abnormal NEGATIVE [facility] Comment on above: Performed By: #### P REGU, ERUR, UMICRO #### [facility] [address] [address] [address] Samm Hurtado Ketones Ql (U) Negative Normal NEGATIVE [facility] Comment on above: Performed By: #### P REGU, ERUR, UMICRO #### [facility] [address] [address] [address] Samm Hurtado LEUKOCYTES Negative Normal NEGATIVE [facility] Comment on above: Performed By: #### P REGU, ERUR, UMICRO #### [facility] [address] [address] [address] Samm Hurtado Nitrite Ql (U) Negative Normal NEGATIVE [facility] Comment on above: Performed By: #### P REGU, ERUR, UMICRO #### [facility] [address] [address] [address] Samm Hurtado pH (U) 5.5 [pH] Normal 5-9 [facility] Comment on above: Performed By: #### P REGU, ERUR, UMICRO #### [facility] [address] [address] [address] Samm Hurtado SPEC GRAVITY >=1.030 Abnormal 1.005-<=1.[address] [place] [address] Comment on above: Performed By: #### P REGU, ERUR, UMICRO #### [facility] [address] [address] [address] Samm Hurtado UA PROTEIN Negative Normal NEGATIVE/ TRACE [facility] Comment on above: Performed By: #### P REGU, ERUR, UMICRO #### [facility] [address] [place] [address] Dr. Samm Hurtado UR MICRO IND INDICATED Normal [facility] Comment on above: Performed By: #### P REGU, ERUR, UMICRO #### [facility] [address] [place] [address] Dr. Samm Hurtado Urobilinogen Qn (U) 0.2 {Edwin'U}/dL Normal 0.2 - 1. 0 [facility] Comment on above: Performed By: #### P REGU, ERUR, UMICRO #### [facility] [address] [place] [address] Dr. Samm Hurtado URon 01-01-2023 , QUAL Negative Normal NEGATIVE [facility] Comment on above: Performed By: #### P REGU, ERUR, UMICRO #### [facility] [address] [place] [address] Dr. Samm Hurtado RESPIRATORY PANEL PLUSon Adenovirus Not detected Normal NOT DETECTED [facility] Comment on above: Performed By: #### R SPLUS ####[facility] [address] [address] Samm Hurtado B. Parapertusis Not detected Normal NOT DETECTED [facility] Comment on above: Performed By: #### R SPLUS ####[facility] [address] [address]Dr. Samm Hurtado B. Pertussis Not detected Normal NOT DETECTED [facility] Comment on above: Performed By: #### R SPLUS ####[facility] [address] [address]Dr[address] Samm Hurtado Chlamydia Pneumoniae Not detected Normal NOT DETECTED [facility] Comment on above: Performed By: #### R SPLUS ####[facility] [address] [place], [place] [address]Dr. Samm Hurtado Coronavirus 229E Not detected Normal NOT DETECTED [facility] Comment on above: Performed By: #### R SPLUS ####[facility] [address] [place], [place] [address]Dr. Samm Hurtado Coronavirus HKU1 Not detected Normal NOT DETECTED [facility] Comment on above: Performed By: #### R SPLUS ####[facility] [address] [place], [place] [address]Dr. Samm Hurtado Coronavirus NL63 Not detected Normal NOT DETECTED [facility] Comment on above: Performed By: #### R SPLUS ####[facility] [address] [place], [place] [address]Dr. Samm Hurtado Coronavirus OC43 Not detected Normal NOT DETECTED [facility] Comment on above: Performed By: #### R SPLUS ####[facility] [address] [place], [place] [address]Dr. Samm Hurtado Influenza A H1 Not detected Normal NOT DETECTED [facility] Comment on above: Performed By: #### R SPLUS ####[facility] [address] [address]Dr. Samm Hurtado Influenza A H1 2009 Not detected Normal NOT DETECTED [facility] Comment on above: Performed By: #### R SPLUS ####[facility] [address] [place], [place] [address]Dr. Samm Hurtado Influenza A H3 Not detected Normal NOT DETECTED [facility] Comment on above: Performed By: #### R SPLUS ####[facility] [address] [address]Dr. Samm Hurtado Influenza B Not detected Normal NOT DETECTED [facility] Comment on above: Performed By: #### R SPLUS ####[facility] [address] [place], [place] [address]Dr. Samm Hurtado Metapneumovirus Not detected Normal NOT DETECTED [facility] Comment on above: Performed By: #### R SPLUS ####[facility] [address] [place], [place] [address]Dr. Samm Hurtado Mycoplas. Pneumoniae Not detected Normal NOT DETECTED [facility] Comment on above: Performed By: #### R SPLUS ####[facility] [address] [place], [place] [address]Dr. Samm Hurtado Parainfluenza 1 Not detected Normal NOT DETECTED [facility] Comment on above: Performed By: #### R SPLUS ####[facility] [address] [place], [place] [address]Dr. Samm Hurtado Parainfluenza 2 Not detected Normal NOT DETECTED [facility] Comment on above: Performed By: #### R SPLUS ####[facility] [address] [place], [place] [address]Dr. Samm Hurtado Parainfluenza 3 Not detected Normal NOT DETECTED [facility] Comment on above: Performed By: #### R SPLUS ####[facility] [address] [place], [place] [address]Dr. Samm Hurtado Parainfluenza 4 Not detected Normal NOT DETECTED [facility] Comment on above: Performed By: #### R SPLUS ####[facility] [address] [place], [place] [address]Dr. Samm Hurtado Rhino/Enterovirus Detected Abnormal NOT DETECTED [facility] Comment on above: Performed By: #### R SPLUS ####[facility] [address] [place], [place] [address]Dr. Samm Hurtado RP2 Header 1 RESPIRATORY PANEL: VIRUSES Normal [facility] Comment on above: Performed By: #### R SPLUS ####[facility] [address] [place], [place] [address]Dr. Samm Hurtado RP2 Header 2 RESPIRATORY PANEL: BACTERIA Normal [facility] Comment on above: Performed By: #### R SPLUS ####[facility] [address] [address]Dr. Samm Hurtado RSV Not detected Normal NOT DETECTED [facility] Comment on above: Performed By: #### R SPLUS ####[facility] [address] [address]DrDaquan Hurtado SARS-CoV-2 (COVID-19) RNA PARI+probe Ql (Unsp spec) Not detected Normal NOT DETECTED [facility] Comment on above: Performed By: #### R SPLUS ####[facility] [address] [address]Dr. Samm Hurtado URINE MICROSCOPIC ONLYon BACTERIA NONE SEEN Normal NONE SEEN [facility] Comment on above: Performed By: #### P REGU, ERUR, UMICRO #### [facility] [address] [place] [address] Dr. Samm Hurtado Bacteria identified Cx Nom (U) NOT INDICATED Normal [facility] Comment on above: Performed By: #### P REGU ERUR, UMICRO #### [facility] [address] [address] [address] Samm Hurtado CAST NONE SEEN Normal NONE SEEN [facility] Comment on above: Performed By: #### P REGU, ERUR, UMICRO #### [facility] [address] [place] [address] Dr. Samm Hurtado Crystals LM Nom (Urine sed) SEEN Abnormal NONE SEEN [facility] Comment on above: Performed By: #### P REGU, ERUR, UMICRO #### [facility] [address] [address] [address] Samm Hurtado Epithelial cells LM Ql (Urine sed) FEW Abnormal NONE SEEN /RARE [facility] Comment on above: Performed By: #### P REGU, ERUR, UMICRO #### [facility] [address] [address] [address] Samm Hurtado MUCOUS TRACE Abnormal NONE SEEN [facility] Comment on above: Performed By: #### P REGU, ERUR, UMICRO #### [facility] [address] [address] [address] Samm Hurtado RBC 10-20 Abnormal 0-2 [facility] Comment on above: Performed By: #### P REGU, ERUR, UMICRO #### [facility] [address] [place], [place] [address] Dr. Samm Hurtado WBC NONE SEEN Normal NONE SEEN [facility] Comment on above: Performed By: #### P REGU, ERUR, UMICRO #### [facility] [address] [place], [place] [address] Dr. Samm Hurtado XR CHEST 1 Von [...] VANESSA JEREZ Date: 2023-01-01 13:22 Normal [facility] CT lumbar spine wo conon CT lumbar spine wo con [facility] [place] [address] CT Scan Report Signed Patient: Leena Interiano MR#: [id number] : 1990 Acct:[id number] Age/Sex: 32 / F ADM Date: 10/30/22 Loc: [place] Room: Type: [facility] CL Attending Dr: Bentley TIMMONS Copies to: [...] Adriana Hoffman M.D.10/30/2022 5:11 PM Dictation Location: [place] [address] Transcribed By: [facility] 10/30/221710 Dictated By: Adriana Hoffman MD 10/30/221702 Signed By: 10/30/22 171 [facility] breast LT [facility] 10-30 breast LT [facility] [place] [address] Mammography Report Signed Patient: Leena Interiano MR#: [id number] : 1990 Acct:[id number] Age/Sex: 32 / F ADM Date: 10/30/22 Loc: [place] Room: Type: REG CLI Attending Dr: Bentley TIMMONS Copies to: SHANELLE Galdamez Ordering Provider: SHANELLE Galdamez Date of Service: 10/30/22 MM/MM diagnostic mammo BI w/CAD: Mass overlapping multiple quadrants of left breast ([id number]) US/US breast LT limited: Mass overlapping multiple [...] Lanza Jr., D.O.10/30/2022 4:09 PM Dictation Location: [facility] Transcribed By: VALERIE 10/30/22 1609 Dictated By: Adalberto Lanza Jr, DO 10/30/22 1608 Signed By: 10/30/22 1609 Normal [facility] Albumin [Mass/volume] in Ser um or PlasmaOrdered By: Bentley Lucero on 10-09-2022 Albumin [Mass/Vol] 4.1 g/dL 3.2-5.5 [facility] Basophils Auto (Bld) [#/Vol] Ordered By: Bentley Lucero on 10-09-2022 Basophils (Bld) [#/Vol] 0.0 10*3/uL 0.0-0.2 [facility] Basophils/100 WBC Auto (Bld) Ordered By: Bentley Lucero on 10-09-2022 Basophils/100 WBC (Bld) 0.8 % . [facility] CT biopsyOrdered By: Bentley carcamo on 10-09-2022 Transferrin [Mass/Vol] 291 mg/dL 180-380 [facility] Complete Blood Count Auto Di ffon 10-09-2022 Basophils (Bld) [#/Vol] 0.0 10*3/uL Normal 0.0-0.2 [facility] Comment on above: Order Comment: Reaso n for Exam Iron deficiency Result Comment: PERF ORMED BY: [facility] [address] [place] [address] PATHOLOGIST VISUAL MERCHANDISING MANAGER PRICE ZUNIGA M.D. Performed By: #### C BC, CMP, [id number], FE and TIBC ####[address] Basophils/100 WBC (Bld) 0.8 % Normal . [facility] Comment on above: Order Comment: Reaso n for Exam Iron deficiency Performed By: #### C BC, CMP, [id number], FE and TIBC ####[address] [place] [id number] [facility] Eosinophils (Bld) [#/Vol] 0.1 10*3/uL Normal 0.0-0.45 [facility] Comment on above: Order Comment: Reaso n for Exam Iron deficiency Performed By: #### C BC, CMP, [id number], FE and TIBC ####[address] [id number] [facility] Eosinophils/100 WBC (Bld) 1.3 % Normal . [facility] Comment on above: Order Comment: Reaso n for Exam Iron deficiency Performed By: #### C BC, CMP, [id number], FE and TIBC ####[id number] [facility] Erythrocyte distribution width (RBC) [Ratio] 13.8 % Normal 11.9-15.3 [facility] Comment on above: Order Comment: Reaso n for Exam Iron deficiency Performed By: #### C BC, CMP, [id number], FE and TIBC ####[address] Hematocrit (Bld) [Volume fraction] 39.3 % Normal 34.0-46.4 [facility] Comment on above: Order Comment: Reaso n for Exam Iron deficiency Performed By: #### C BC, CMP, [id number], FE and TIBC ####[address] Hemoglobin (Bld) [Mass/Vol] 12.9 g/dL Normal 11.8-15.4 [facility] Comment on above: Order Comment: Reaso n for Exam Iron deficiency Performed By: #### C BC, CMP, [id number], FE and TIBC ####[address] Lymphocytes (Bld) [#/Vol] 2.5 10*3/uL Normal 1.00-4.8 [facility] Comment on above: Order Comment: Reaso n for Exam Iron deficiency Performed By: #### C BC, CMP, [id number], FE and TIBC ####[address] Lymphocytes/100 WBC (Bld) 44.5 % Normal . [facility] Comment on above: Order Comment: Reaso n for Exam Iron deficiency Performed By: #### C BC, CMP, [id number], FE and TIBC ####[address] MCH (RBC) [Entitic mass] 26.2 pg Normal 24.7-34.3 [facility] Comment on above: Order Comment: Reaso n for Exam Iron deficiency Performed By: #### C BC, CMP, [id number], FE and TIBC ####[address] MCV (RBC) [Entitic vol] 80.1 fL Normal 80-100 [facility] Comment on above: Order Comment: Reaso n for Exam Iron deficiency Performed By: #### C BC, CMP, [id number], FE and TIBC ####[address] Mean Corpuscular HGB Conc 32.7 g/dL Normal 32.0-35.0 [facility] Comment on above: Order Comment: Reaso n for Exam Iron deficiency Performed By: #### C BC, CMP, [id number], FE and TIBC ####[address] Monocytes (Bld) [#/Vol] 0.4 10*3/uL Normal 0.0-0.8 [facility] Comment on above: Order Comment: Reaso n for Exam Iron deficiency Performed By: #### C BC, CMP, [id number], FE and TIBC ####[address] Monocytes/100 WBC (Bld) 6.5 % Normal . [facility] Comment on above: Order Comment: Reaso n for Exam Iron deficiency Performed By: #### C BC, CMP, [id number], FE and TIBC ####[address] Neutrophils (Bld) [#/Vol] 2.6 10*3/uL Normal 1.8-7.7 [facility] Comment on above: Order Comment: Reaso n for Exam Iron deficiency Performed By: #### C BC, CMP, [id number], FE and TIBC ####[address] Neutrophils/100 WBC (Bld) 46.9 % Normal . [facility] Comment on above: Order Comment: Reaso n for Exam Iron deficiency Performed By: #### C BC, CMP, [id number], FE and TIBC ####[address] NRBC% 0.2 /100{WBC} Normal 0-0.5 [facility] Comment on above: Order Comment: Reaso n for Exam Iron deficiency Performed By: #### C BC, CMP, [id number], FE and TIBC ####[address] Platelet mean volume (Bld) [Entitic vol] 9.2 fL Normal 6.3-10.7 [facility] Comment on above: Order Comment: Reaso n for Exam Iron deficiency Performed By: #### C BC, CMP, [id number], FE and TIBC ####[place] [id number] [facility] Platelets (Bld) [#/Vol] 263 10*3/uL Normal 150-450 [facility] Comment on above: Order Comment: Reaso n for Exam Iron deficiency Performed By: #### C BC, CMP, [id number], FE and TIBC ####[place] [id number] [facility] RBC (Bld) [#/Vol] 4.91 10*6/uL Normal 3.60-5.00 [facility] Comment on above: Order Comment: Reaso n for Exam Iron deficiency Performed By: #### C BC, CMP, [id number], FE and TIBC ####[place] [id number] [facility] WBC (Bld) [#/Vol] 5.5 10*3/uL Normal 3.8-11.6 [facility] Comment on above: Order Comment: Reaso n for Exam Iron deficiency Performed By: #### C BC, CMP, [id number], FE and TIBC ####[place] [id number] [facility] Comprehensive Metabolic Pane adam 10-09-2022 Albumin [Mass/Vol] 4.1 g/dL Normal 3.2-5.5 [facility] Comment on above: Order Comment: Reaso n for Exam Iron deficiency Reason for Exam Vitamin D deficiency Performed By: #### C BC, CMP, [id number], FE and TIBC ####[place] [id number] [place] Albumin/Globulin [Mass ratio] 1.5 {ratio} Normal [facility] Comment on above: Order Comment: Reaso n for Exam Iron deficiency Reason for Exam Vitamin D deficiency Performed By: #### C BC, CMP, [id number], FE and TIBC ####[place] [address] [place] [address] [facility] ALP [Catalytic activity/Vol] 47 U/L Normal 32-92 [facility] Comment on above: Order Comment: Reaso n for Exam Iron deficiency Reason for Exam Vitamin D deficiency Performed By: #### C BC, CMP, [id number], FE and TIBC ####[id number] [place] [address] [facility] ALT [Catalytic activity/Vol] 18 U/L Normal 10-60 [facility] Comment on above: Order Comment: Reaso n for Exam Iron deficiency Reason for Exam Vitamin D deficiency Performed By: #### C BC, CMP, [id number], FE and TIBC ####[id number] [facility] Anion gap [Moles/Vol] 11.7 mmol/L Normal 6.0-15.0 [facility] Comment on above: Order Comment: Reaso n for Exam Iron deficiency Reason for Exam Vitamin D deficiency Performed By: #### C BC, CMP, [id number], FE and TIBC ####[address] [address] [facility] AST [Catalytic activity/Vol] 19 U/L Normal 10-42 [facility] Comment on above: Order Comment: Reaso n for Exam Iron deficiency Reason for Exam Vitamin D deficiency Performed By: #### C BC, CMP, [id number], FE and TIBC ####[place] [id number] [facility] Bilirubin [Mass/Vol] 0.6 mg/dL Normal 0.3-1.2 [facility] Comment on above: Order Comment: Reaso n for Exam Iron deficiency Reason for Exam Vitamin D deficiency Performed By: #### C BC, CMP, [id number], FE and TIBC ####[address] [address] [facility] Calcium [Mass/Vol] 9.1 mg/dL Normal 8.2-10.2 [facility] Comment on above: Order Comment: Reaso n for Exam Iron deficiency Reason for Exam Vitamin D deficiency Performed By: #### C BC, CMP, [id number], FE and TIBC ####[address] [address] [facility] Chloride [Moles/Vol] 106 mmol/L Normal 95-114 [facility] Comment on above: Order Comment: Reaso n for Exam Iron deficiency Reason for Exam Vitamin D deficiency Performed By: #### C BC, CMP, [id number], FE and TIBC ####[address] [address] [facility] CO2 [Moles/Vol] 23.6 mmol/L Normal 22.0-30.0 [facility] Comment on above: Order Comment: Reaso n for Exam Iron deficiency Reason for Exam Vitamin D deficiency Performed By: #### C BC, CMP, [id number], FE and TIBC ####[address] [address] [facility] Creatinine [Mass/Vol] 0.75 mg/dL Normal 0.44-1.03 [facility] Comment on above: Order Comment: Reaso n for Exam Iron deficiency Reason for Exam Vitamin D deficiency Performed By: #### C BC, CMP, [id number], FE and TIBC ####[address] [address] [facility] Estimated GFR ( Edith > 60 [facility] Comment on above: Order Comment: Reaso n for Exam Iron deficiency Reason for Exam Vitamin D deficiency Result Comment: GFR estimated reference range: According to KDOQI guidelines, <60 ml/min/1.73m2 is sufficient to diagnose a patient with chronic kidney disease. Performed By: #### C BC, CMP, [id number], FE and TIBC ####[address] [address] [facility] Estimated GFR (Non- Am > 60 [facility] Comment on above: Order Comment: Reaso n for Exam Iron deficiency Reason for Exam Vitamin D deficiency Performed By: #### C BC, CMP, [id number], FE and TIBC ####[address] [place] [address] [facility] Globulin (S) [Mass/Vol] 2.8 g/dL Normal [facility] Comment on above: Order Comment: Reaso n for Exam Iron deficiency Reason for Exam Vitamin D deficiency Performed By: #### C BC, CMP, [id number], FE and TIBC ####[address] [address] [facility] Glucose [Mass/Vol] 90 mg/dL Normal 70-100 [facility] Comment on above: Order Comment: Reaso n for Exam Iron deficiency Reason for Exam Vitamin D deficiency Result Comment: [place] Glucose Reference Range is dependent on time and content of last meal. Glucose of more than 200 mg/dL in a nonstressed, ambulatory subject supports the diagnosis of Diabetes Mellitus. ADA recommended reference range Performed By: #### C BC, CMP, [id number], FE and TIBC ####[address] [address] [facility] Potassium [Moles/Vol] 4.3 mmol/L Normal 3.5-5.1 [facility] Comment on above: Order Comment: Reaso n for Exam Iron deficiency Reason for Exam Vitamin D deficiency Performed By: #### C BC, CMP, [id number], FE and TIBC ####[address] [address] [facility] Protein [Mass/Vol] 6.9 g/dL Normal 6.1-7.9 [facility] Comment on above: Order Comment: Reaso n for Exam Iron deficiency Reason for Exam Vitamin D deficiency Performed By: #### C BC, CMP, [id number], FE and TIBC ####[address] [address] [facility] Sodium [Moles/Vol] 137 mmol/L Normal 136-146 [facility] Comment on above: Order Comment: Reaso n for Exam Iron deficiency Reason for Exam Vitamin D deficiency Performed By: #### C BC, CMP, [id number], FE and TIBC ####[facility] [id number] [place] [address] [facility] Urea nitrogen [Mass/Vol] 11 mg/dL Normal 9-23 [facility] Comment on above: Order Comment: Reaso n for Exam Iron deficiency Reason for Exam Vitamin D deficiency Performed By: #### C BC, CMP, [id number], FE and TIBC ####[facility] [id number] [facility] Creatinine and Glomerular fi ltration rate.predicted panel (S/P/Bld)Ordered By: Bentley Lucero on 10-09-2022 Creatinine [Mass/Vol] 0.75 mg/dL 0.44-1.03 [facility] Eosinophils Auto (Bld) [#/Vo l]Ordered By: Bentley Lucero on 10-09-2022 Eosinophils (Bld) [#/Vol] 0.1 10*3/uL 0.0-0.45 [facility] Eosinophils/100 WBC Auto (Bl d)Ordered By: Bentley Lucero on 10-09-2022 Eosinophils/100 WBC (Bld) 1.3 % . [facility] Erythrocyte distribution wid th Auto (RBC) [Ratio]Ordered By: Bentley Lucero on 10-09-2022 Erythrocyte distribution width (RBC) [Ratio] 13.8 % 11.9-15.3 [facility] Estimated glomerular filtrat ion rate (GFR) non- AmericanOrdered By: Bentley Lucero on 10-09-2022 GFR/1.73 sq M.predicted among non-blacks MDRD (S/P/Bld) [Vol rate/Area] > 60 mL/Min [facility] Globulin Calc (S) [Mass/Vol] Ordered By: Bentley Lucero on 10-09-2022 Globulin (S) [Mass/Vol] 2.8 g/dL [facility] Hematocrit Auto (Bld) [Volum e fraction]Ordered By: Bentley Lucero on 10-09-2022 Hematocrit (Bld) [Volume fraction] 39.3 % 34.0-46.4 [facility] Hemoglobin [Mass/volume] in BloodOrdered By: Bentley Lucero on 10-09-2022 Hemoglobin (Bld) [Mass/Vol] 12.9 g/dL 11.8-15.4 [facility] Iron [Mass/volume] in Serum or PlasmaOrdered By: Bentley Lucero on 10-09-2022 Iron [Mass/Vol] 112 ug/dL 40-150 [facility] Iron and TIBC Profileon 09-15 % Iron Saturation 27.5 % Normal 20-50 [facility] Comment on above: Order Comment: Reaso n for Exam Iron deficiency Reason for Exam Vitamin D deficiency Performed By: #### C BC, CMP, [id number], FE and TIBC ####[address] [place] [address] [facility] Iron [Mass/Vol] 112 ug/dL Normal 40-150 [facility] Comment on above: Order Comment: Reaso n for Exam Iron deficiency Reason for Exam Vitamin D deficiency Performed By: #### C BC, CMP, [id number], FE and TIBC ####[address] [address] [facility] Total Iron Binding Capacity 407 ug/dL Normal 255-450 [facility] Comment on above: Order Comment: Reaso n for Exam Iron deficiency Reason for Exam Vitamin D deficiency Performed By: #### C BC, CMP, [id number], FE and TIBC ####[address] [place] [address] [facility] Transferrin [Mass/Vol] 291 mg/dL Normal 180-380 [facility] Comment on above: Order Comment: Reaso n for Exam Iron deficiency Reason for Exam Vitamin D deficiency Performed By: #### C BC, CMP, [id number], FE and TIBC ####[address] [address] [facility] Iron binding capacity [Mass/ volume] in Serum or PlasmaOrdered By: Bentley Lucero on 10-09-2022 Iron binding capacity [Mass/Vol] 407 ug/dL 255-450 [facility] Iron saturation [Mass Fracti on] in Serum or PlasmaOrdered By: Bentley Lucero on 10-09-2022 Iron saturation [Mass fraction] 27.5 % 20-50 [facility] Leukocytes [#/volume] correc flavio for nucleated erythrocytes in Blood by Automated counOrdered By: Bentley Lucero on 10-09-2022 WBC corrected for nucl RBC Auto (Bld) [#/Vol] 5.5 10*3/uL 3.8-11.6 [facility] Lymphocytes Auto (Bld) [#/Vo l]Ordered By: Bentley Lucero on 10-09-2022 Lymphocytes (Bld) [#/Vol] 2.5 10*3/uL 1.00-4.8 [facility] Lymphocytes/100 WBC Auto (Bl d)Ordered By: Bentley Lucero on 10-09-2022 Lymphocytes/100 WBC (Bld) 44.5 % . [facility] MCH Auto (RBC) [Entitic mass ]Ordered By: Bentley Lucero on 10-09-2022 MCH (RBC) [Entitic mass] 26.2 pg 24.7-34.3 [facility] MCHC Auto (RBC) [Mass/Vol]Or dered By: Bentley Lucero on 10-09-2022 MCHC (RBC) [Mass/Vol] 32.7 g/dL 32.0-35.[address] [facility] MCV Auto (RBC) [Entitic vol] Ordered By: Bentley Lucero on 10-09-2022 MCV (RBC) [Entitic vol] 80.1 fL 80-100 [facility] Monocytes Auto (Bld) [#/Vol] Ordered By: Bentley Lucero on 10-09-2022 Monocytes (Bld) [#/Vol] 0.4 10*3/uL 0.0-0.8 [facility] Monocytes/100 WBC Auto (Bld) Ordered By: Bentley Lucero on 10-09-2022 Monocytes/100 WBC (Bld) 6.5 % . [facility] Neutrophils Auto (Bld) [#/Vo l]Ordered By: Bentley Lucero on 10-09-2022 Neutrophils (Bld) [#/Vol] 2.6 10*3/uL 1.8-7.7 [facility] Neutrophils/100 WBC Auto (Bl d)Ordered By: Bentley Lucero on 10-09-2022 Neutrophils/100 WBC (Bld) 46.9 % . [facility] No Panel InformationOrdered By: Bentley Lucero on 10-09-2022 25-Hydroxy Vitamin D Total 15.6 ng/mL 30-100 [facility] Comment on above: VITAMIN D STATUS 25( [place])VITAMIN D RANGE (ng/mL) Deficient <20 Insufficient 20 to <30Sufficient 30 to 100Reference: Joe MF,Briana NC, Brenton VARGAS, et al. Evaluation,treatment, and prevention of vitamin D deficiency; an Endocrine Society clinical practice guideline. JCEM. 2010; 96(7):1911-30. Estimated GFR () > 60 mL/Min [facility] Comment on above: GFR estimated refere nce range: According to KDOQI guidelines, <60 ml/min/1.73m2 is sufficient to diagnose a patient with chronic kidney disease. Pharmacy Creatinine Clearance (Chem N/A [facility] Nucleated erythrocytes [Pres ence] in Blood by Automated countOrdered By: Bentley Lucero on 10-09-2022 Nucleated RBC Auto Ql (Bld) 0.2 /100{WBC} 0-0.5 [facility] Platelet mean volume Auto (B ld) [Entitic vol]Ordered By: Bentley Lucero on 10-09-2022 Platelet mean volume (Bld) [Entitic vol] 9.2 fL 6.3-10.7 [facility] Platelets Auto (Bld) [#/Vol] Ordered By: Bentley Lucero on 10-09-2022 Platelets (Bld) [#/Vol] 263 10*3/uL 150-450 [facility] Protein [Mass/volume] in Ser um or PlasmaOrdered By: Bentley Lucero on 10-09-2022 Protein [Mass/Vol] 6.9 g/dL 6.1-7.9 [facility] RBC Auto (Bld) [#/Vol]Ordere d By: Bentley Lucero on 10-09-2022 RBC (Bld) [#/Vol] 4.91 10*6/uL 3.60-5.00 [facility] Serum or plasma alanine bedoya otransferase measurement without P-5'-P (enzymatic activiOrdered By: Bentley Lucero on 10-09-2022 ALT No additional P-5'-P [Catalytic activity/Vol] 18 U/L 10-60 [facility] Serum or plasma albumin/glob ulin mass ratioOrdered By: Bentley Lucero on 10-09-2022 Albumin/Globulin [Mass ratio] 1.5 {ratio} [facility] Serum or plasma alkaline diaz sphatase measurement (enzymatic activity/volume)Ordered By: Bentley Lucero on 10-09-2022 ALP [Catalytic activity/Vol] 47 U/L 32-92 [facility] Serum or plasma anion gap de terminationOrdered By: Bentley Lucero on 10-09-2022 Anion gap [Moles/Vol] 11.7 mmol/L 6.0-15.0 [facility] Serum or plasma aspartate am inotransferase measurement (enzymatic activity/volume)Ordered By: Bentley Lucero on 10-09-2022 AST [Catalytic activity/Vol] 19 U/L 10-42 [facility] Serum or plasma calcium jose urement (mass/volume)Ordered By: Bentley Lucero on 10-09-2022 Calcium [Mass/Vol] 9.1 mg/dL 8.2-10.2 [facility] Serum or plasma chloride yobany surement (moles/volume)Ordered By: Bentley Lucero on 10-09-2022 Chloride [Moles/Vol] 106 mmol/L 95-114 [facility] Serum or plasma glucose jose urement (mass/volume)Ordered By: Bentley Lucero on 10-09-2022 Glucose [Mass/Vol] 90 mg/dL 70-100 [facility] Comment on above: ADA recommended refe rence rangeRandom Glucose Reference Range is dependent on time and content of last meal. Glucose of more than 200 mg/dL in a nonstressed, ambulatory subject supports the diagnosis of Diabetes Mellitus. Serum or plasma potassium me asurement (moles/volume)Ordered By: Bentley Lucero on 10-09-2022 Potassium [Moles/Vol] 4.3 mmol/L 3.5-5.1 [facility] Serum or plasma sodium measu rement (moles/volume)Ordered By: Bentley Lucero on 10-09-2022 Sodium [Moles/Vol] 137 mmol/L 136-146 [facility] Serum or plasma total biliru bin measurement (mass/volume)Ordered By: Bentley Lucero on 10-09-2022 Bilirubin [Mass/Vol] 0.6 mg/dL 0.3-1.2 [facility] Serum or plasma total carbon dioxide measurement (moles/volume)Ordered By: Bentley Lucero on 10-09-2022 CO2 [Moles/Vol] 23.6 mmol/L 22.0-30.0 [facility] Serum or plasma urea nitroge n measurement (mass/volume)Ordered By: Bentley Lucero on 10-09-2022 Urea nitrogen [Mass/Vol] 11 mg/dL 9-23 [facility] Vitamin D 25 Hydroxy Totalon 10-09-2022 Vitamin D 25 Hydroxy Total 15.6 ng/mL Low 30-100 [facility] Comment on above: Order Comment: [...] practice guideline. JCEM. 2010; 96(7):1911-30. PERFORMED BY: [facility] [address] [place] [address] PATHOLOGIST VISUAL MERCHANDISING MANAGER PRICE ZUNIGA M.D. Performed By: #### C BC, CMP, [id number], FE and TIBC ####[facility] [id number] [place] [address] [facility] WBC Auto (Bld) [#/Vol]Ordere d By: Bentley Lucero on 10-09-2022 WBC (Bld) [#/Vol] 5.5 10*3/uL 3.8-11.6 [facility] XR LSPINE 2_3 VIEWSon 2022 XR [...] VANESSA JEREZ Date: 2022-10-08 12:48 Normal [facility] ED Note-Physicianon 09-06-20 ED Note-Physician Basic [...] has bronchitis. Patient is deaf and an salvage determiner is used throughout the encounter. Review of [...] is afebrile. Patient is deaf, so an salvage determiner is used throughout the encounter. She denies [...] 3 days 09/01/2022 EST [address] [place] [address]- [facility] (1) Additional Instructions: Follow-up with your primary care provider in 3 to 5 days. If symptoms worsen, do not improve, or new symptoms arise please report back to emergency department for further evaluation. Patient Education Acute Bronchitis, Adult Attestation Patient seen and evaluated by the physician family and divorce legal assistant. Attending physician was present in the emergency department and supervised care. This visit was performed by both the physician and an APC. I performed all aspects of the MDM as documented. This report was transcribed using voice recognition software. Every effort was made to ensure accuracy, however, inadvertently computerized senior policy analyst mistakes may be present. Appropriate healthcare PPE [...] Tab, 25 (more content not included)... Normal [facility] Comment on above: Result Comment: Elec tronically Signed By: Ron James PA-C\.br\Date and Time Signed: 08/29/22 18:33 EST\.br\Electronically Co-Signed By: Kristopher Clemons DO\.br\Date and Time Co-Signed: 09/06/22 07:00 EST Coding Summary.on 09-02-2022 Coding Summary. [id number] Gh 0bWw+PGhlYWQ+WT2ZIERxQ 93qiAXbvO5BU5qQBT1OJXI CJNPVWK8VMS5cuUC2GBihL 2VybiAv LwjajSXbLM78CEb6LVI7vR vuUBafrZ1enTVkT1m2ZxTz IS21rY44YDyfUQIqNsL5Iy ZpbjsgbWFy D3ikOoBgfXFgHag+PHRhYm xlIHdpZHRoPScxMDAlJyBz hKvjUR7xXc3qYVZdKEEhhC xhcHNlOiBj n3coGYXdEZsvWE4isCaoN5 NwhWT5WOPlo0p7Wv80cRT+ DQDyAMG2rUzgEPebt498Sz Sgi6cjRWB5 yIByLZoxKPH1B71ma3P0NS DdBGOePSG2rUD0lH7vuLnh gwkkF2VniLLiZjX7OJN5uQ DweF6ehCwf dyiulN6sYqx+L04TLR1XYL AVJA3RJzx2W4VqDugasON+ TK99EPWxMS56oMPkdFLsy9 qohHq0IcLl ODVoGCU7pYfxTKwyj1QoCG JyN49dzLCox7K0WRCcrHer vFRwDxEvvBD0eC5qVUwrkx lyh0pdahzv Qweei8kuvq08cB71W45zMZ giQZWeFTP2SJRtPXNmnLij xb8swQ2sDm9+CMnhq3szu1 digWy4EvAi OJAxacVorEcyOTJ2m9FaPe 00B2AcxEdrd1IgKfj2xq22 fVHav2A9rFG0YBuhQYVbvK 6zZJnjRuC7 QMKpQiEvrT00tOZqIVfjJy 5vlBpbwCbbSK6lNOGbyrpm XTEdxX2nHYNisVXbbRfiKW 4wNTBpbjtm q150NoJwRBX6JCOmfLOrL0 TsjM0uLiZxTMQeGABmI0Rg dIPiGFzfW257RSjpWbE2ZN NssaCiV3Ji VOHmrPpjJzG0p2V1Tv7Ek4 CzcvdcFLR0VOzrYWSnZwYp XuOpUdL6T1EoTcc0EGUsnT jiHQ7bZ7Tn DXFqmidsjjrgnDF3YDVeLE NnwE40oTHtTLzzEs1nt5E9 g441BNAtZWNufQ07Bj1prA ogMTBwdCBU mF8lmbskz8nbcfurKrYrSA SmXJi8WBd9RFKltShgJuKc GDM0ZtP2PFC9xMZheW4duJ ilvnmekE4e Oyc+F85axY9mRVB9XUG5yu elINRkcyAlCP32FP89Z4Bc PjwvdGFibGU+PGRpdiBzdH swUB3dUfFt m3fzh3KjNDxpA3VaEDXaGU muXns2ZCFzCTU6pWG2iG3y KERcTQdbx2O8lVE3P4Slvn Aqcf0cp9ch ZEPrDHrpY68tsOIzu6Z0WK MfyVP6SMRpyPreNxRosY14 Oyc+ELAinGlgo9XvElnqo2 uvc2vhaTf8 WdJtFVQijaDjjJizWSN0r3 EvUy58Z86mZNheXBNjTNQi YWDfQCOzaKtvfb9nfL6oTg 8+PGNvbCB3 sIM5mU9yKUJlBcW3IOlpA1 48KuLrfYCvFajgh4lki3af lZp9HlXpXUGyyfDhqQdxRT C4b8JrBn34 M54bUQbqIHBzMDArIEPhJU OqxQfiyc3elP4jPj2+PC9j u3lhxn47jX43vKX+PHRkIH N8cPkiKFaa ZUFvzJ0iFOfxJdF5ZLXlOg NnaJ53mJXsUDswBg4ucBhq vEkkVF5lJPRxurqix335Nc Xem4jcJWBh iWAaOTgqHWH3Z90he3F0HK WqVZJdIDL0kJA2nW9hoDqa bjogbGVmdDsgdmVydGljYW bsEPtnF927 IHRvcDsnPlBhdGllbnQgTm YoNTn1K7FzQad4QLWbkPfa BJ3xdJOyMXrwNt1zcDhdlU ccKD2oKUNi rrvwn392GpXsc9ipQNGkoN RiXNgrDNL8I49oe1W2MBBe ZLBgVEP2vWU9uD2ghLvpxk ogbGVmdDsg vaBlaCioNZawJAkrF500PG RvcDsnPkJpcnRoIERhdGU6 JE64TW13mVFag0U9bNP9U7 BhZGRpbmct sozkzTA8EAAdGBCwxM48Ny 7kmElsGv1oHPOuYPY7WIHx yWAhH7SauX5eSpOoCOTxSB YuF0ZvcQYo EBauQ205YAhwNtX6GAUtnl OxQ3IwJUMiqCjeSdV7r9M6 Us4TD6O9VE36NS30sZPln5 H6xML2D8Cw VQRvxxqpzwjjrNJ6NPEwWX FxnB98Ip0jzBklVa8uVSGk QNR6HDWpbBHbU2VgfF1mNi AjMDAwMDAw P9CeaWNsENmzS809RYztGm B0CWVpeuNjX6WlRUJtjRya ItK0h1R4Yc9NLZe7GU92IS 85jZOpz6Y7 iED5I4CbMLUcowvjnvcegM Q9RZRdGWDddP84Wm4kqRfk Ym1fCZGzWHL0MCLpyPMqL5 LmiV9eYaBd JHUzVPHdA9PnmAIaIKznC3 82QLxvCcE4KDFzroXrR2Fu JEBtnHjnNuO1j6G2As8CVH HrIQ10FXS1 tYJ7UU78SE82X7TzRitctU FibGU+PHRhYmxlIHdpZHRo FDlaOUMjOtForSsvVS7hUl 9yZGVyLWNv pUdfiJEvHbSdw8dfRILsVJ ysUW6znQdjQ3TrvUB4CPNd x7q8Rc84K02kU2CgmGL+PG FujWB4xRV1 uJ0tLcUoCfI9NEkrL075Sm LcyUQlFmhnq8pzx6vdmFx6 UmP5NNVzvmYapYbwSKN6t4 JnDt31R20r IHdpZHRoPSIxNSUiIHZhbG gimt0dmV6yNp4+PGNvbCB3 qEA7fN2qJyUkCnC1HHseE7 49InRvcCIv Fytxs4qja9mtvMy8WvLjNS FvwvYsmDfkDDB5h1DtTg02 E8NgwNlno7XsUof9eo52fN Idw1G0nQC4 U9XkLNIqsewoiXCvbWqeVF 1fIAXmjdqlKEFauX5eBDWx V4u4SaRvHnL1XEerM9Qfln C6UUQiwDEb ELyuZSS9A25by1Y0KCPcTO GwZKS3zYJ7jX8nsUsqffif bGVmdDsgdmVydGljYWwtYW rhQ437BIHi xOucNYKunO3gYPSftDBttD hyOJ1pEERbimdsEqwWAMzy IEpBREEgTTwvdGQ+PHRkIH W9yAoyVKqj YXWvkH5yUYCkY7p9AoGdUo Y7CHeaX8ElHKMsowvjAb00 sP5dOvGlRyB4CMcwA8Qrhw Q0ROKuhARk NDkqSKT1R46zp9S0MRBwRS XhOMT7yUN9uE5nmVchbvnf bGVmdDsgdmVydGljYWwtYW ttC649GMHc cEptLeD2GpJ7AwV1QUX6U4 MvWql4CXUhlIdxCW5jqOIw HUruDq7xoDsxhQwpDE8tQD BpbjtwYWRk xS1yRFSmjMLgbJnyZV0gWQ Jsdoiud175LoXhLQY1HRXb fJKwH0MkyE6vLoMzSRQlWL FvI6NalCSa EMskG790BNzgKyW4UZWwdx ZcD2SoGNNqpMyeSwZ9o9O5 Tm1pLSYAQCEpbexsfKJ+PH DoFEK2wYxb NUuhKZSplG4mFCIaO0e4Mi NqWcL4GFotX3YaQNCrhtnk Kp38tS9wVbKoUzK1CKocV3 AoewL8HNPq nNVyUAvmXLF1T86rw5X4YZ CjIPKaGNC6aVY5gC9vzIjo bjogbGVmdDsgdmVydGljYW ntZGkjT098 IHRvcDsnPkZlbWFsZTwvdG Q+IZCzDAM6yImnCSsaKTPi dH7eTBLtM6k0WfFzMvJ4AG hqD4PgWTTw nuwsQt98uC6eUcLlWyY0IK ikH8XfjyQ5FFUavWAcDZrf UTT9N70nf2I6ONFzYSMmAV Q6pOQ7qQ6m bGlnbjogbGVmdDsgdmVydG xnOOjxEMdgA230UROieOpz YjCeBIXvDQ8xxBektMM+PC 26vr19A9Qr BygvKva9ADPdOOY5lFG0yJ 6jPLXzFMbau7S7zFJ1R1Aw pgBvut9vw9jhZPPdVJkwO1 5moJGxd4A5 HCMcqVF9MWRtxIbmDkPofR 93Oyc+QGHhyBejl2BvGhqm v6sfb2uviJl7LvGiPWNpey FsaWduPSJ0 a6KcWs19F18kVGtaRMCjWK TnNRXaSQHsoRfroe6vpB9a Ii8+UJWmqID3gWY6dT6aXs GaNfC7WTrg S573KhLaaFDyGzbxo3ptf5 xirBo2ZlQbGWLfffSbaShc DAP0d2BaXe48T2YabZhay7 WkUgo4rb97 vLUjc7X8cRH8L9CmBOQkfn yvsCVoiBktMY2zLPFkfwtg NUOdmV4wUBZbT8a7KaMzPy N8ICouX2Nb saH6GQMdgOJgUJRgoMFJjS 8idgvwr7jzrtfrLiVsPTRr BZk1FIs6DZHxxPpxVcDtWD D0NbS7RPG4 tMPpoZ9csUdpcififS5eNx c+PUc8w1yeyPXyIC9fxBW6 PP24BX62eJSrl9U3xIC1T6 BhZGRpbmct czszgDC8UJUaZPXwuA74Jh 2iiUtpVz0aAIVgTAL0NPDg xIJaA7HfzM0gMqRrLPYjSA TfU2KnjNBl SDdiX969PXlzWpW1PDOfbi VmA9IcUMMjkKhhUaI3x0U0 Yk6OUB80BE18LA96nIYwk3 R4aXL3P1Rn RGVlnffljdnxzME0JPEgOZ QyoB61Bh3nnOfdIh5yHQVd IRT3HUBczSUrP6XhhM9cKu AjMDAwMDAw K3IfrHDhBNkeA895IZclUl C4KUPhstOxX4HhMOEzlJsz GoY5f6Y7Th5ZOn05FQ54MB 05gFIxh3G3 nTJ5Z1ZtLAPejrsernfmpA U6BRJvJSUkjK95Os6alFag Ei2eNJJiJNF2BCRhuZBlW9 IfiI9iOnOe FRMcISIzI3QxhVPzSQsyJ2 15VGiiYpU3XHPaemZqK8Ob JQPckXioEvD4y5Z4Fe0PPF akdcy2R8Ig PjwvdHI+MO95HAFhRS56rN CzlFMgb1ljxPx1CtUjIXSz VYG0sVqgUIkrm2YtIKWmK6 2nrJBbc0U3 IGNv (more content not included)... Normal [facility] Coding Summary. CD:[id number]:[id number] Gh 0bWw+PGhlYWQ+OH6UHTPpG 62pzDRhnY3JB5zYDC7GXNE CPWOQDK9IBZ1biGH2QYncE 2VybiAv OhhngICnNY18FCr7XJA9dO ahMSrroW4qiOUkP9p3BgMm YT02yC53YNkgWHIeGlS0Ru ZpbjsgbWFy V6zcZvFgzLTaAdf+PHRhYm xlIHdpZHRoPScxMDAlJyBz mCrdTO3oQu9rANHhMJPhwV xhcHNlOiBj e9egRXWtZWkbJT1piIhhH7 OdqSY6HBMom2x3Qp24hAP+ WGXvYER0qHdjICqcg795Tk Hkz3qgRCW8 mSTsBDuwQZA7X97op6E3VY WnPYDoAGF5fNI2vY7gbDym jfmuV7FutUTeFlB1QOF9gT DhxA7qiDft wxbuaG8zDxs+X14KID3JFI MZVJ5ESjj6N0PpWajrkFX+ RO36MIEjGY73xAKnmEEvc0 ukqNk4PuLd UUXmZEH3yPvlTUotk1NrGU SsR69agAMow5X4TSBboMdr tJAqTcSunZN0vT0vECxqwv tnw1hlegdu Shjxe3urhg73yE03U13iXC lbNCVlHZJ3TPTcAZDrnOnp yu6jnF2dSk3+HGhmk5oip5 rblPo6RrBa ZMFfojGocAzpLAR7v6XlIu 13R3AonAwqd6AdLzi7bz46 jOSku8V7lSA8ZZypHDXzqP 2tWDnpYmS2 BBRcLpUgbR26nCRtQGiaPw 7hiBbqrRitLK5oYMRarilc ASInnQ7wITNrpGMozNnwKV 4wNTBpbjtm d954QzYyVWG2WJLtwEMkF7 AzaJ6tAtTdMBDuEMMeO0Vh nQGhXTbrB631KUmlPkP6JK PpdnYqE9Cf SMPjaKucEvD3u7D8Mm0Ci9 AiciuxOFI5VWivSXSbSdGl GrSfOlN5F4DaUie7CXPrzN xkGQ6yS1Ne OLLfitkatohmtNA0LMJdXP WkuT03qERsBGoyUu4rw5A3 n983WVSbHUBmvQ39Yo3whF ogMTBwdCBU fZ8ephfik6gvcwhbVmTpNM PrJRz0FUt1LOTtpPqiAwUf IEH2UkP9SXK1sTOguE5zkK aunemqeG0n Oyc+D34jmW3xAJZ5KAF7sk ugHWZbnnPhKY52CV09S9Sa PjwvdGFibGU+PGRpdiBzdH foDR7aPlCb i0vcn9HvRHovG8IgRDYfRV nzPpk8EZCcQFQ6aRU6mX5o YSAyKJgfy5Q5eGH8Z0Yapw Xetd8rz6rm NNYzPEdsG11mhDIfj2H9IR YbnXZ1MIBiaKriPiSbkK64 Oyc+QZYofQwbe2AbWvsnd6 tob8zziWt9 PeAyYSFodhSdyOscXSV0m7 TkXi93T93fQSlgOQEpFUEb RRMfMHMugMeppa6rwW7kNf 8+PGNvbCB3 hFC7aY9pXCQaDsJ9GUjtY6 65BjEufAXjVcbqa7stf9zx nDp2XyCpNUUajkMzcCwjQZ O7c3NeGx20 K86qVKfwXJSdLWVjFKGzWV ThbHlsvd1ddX8zMq1+PC9j d1jmpk04gM33uTG+PHRkIH X4nAmbDTae IPJypL7pBKhgLbO8CVPiWp WfgZ52xDZlUKahQr0kaUqz cYlmPG4pXNJohigsk392Ml Qye6ziZQTb rCIrOOioYEX8S98gy1J9VM ZzABIsIHZ2bMJ8fG0dfCdg bjogbGVmdDsgdmVydGljYW ugJWicI984 IHRvcDsnPlBhdGllbnQgTm PoIPs3E2LzPaz5YEEoxSsl VJ1bjKQcMFvhMc4uvEereO qiAI7hMFTe xvhiu287SdFky6vwOGYcjE BaGVfjGIF6M49of3N3ADKj NFLqEOO5qTE0qI1lrLfyzp ogbGVmdDsg ksBrhIksPDbeDPikP263TS RvcDsnPkJpcnRoIERhdGU6 EN10JT57kCRgl5M5bTQ9N7 BhZGRpbmct pcrseYL7SURgBGQhqO70Go 1ddHxmAp6bGSTnGSY6NEYu sOLwW1BlvY9aRzRrALYzIN RgF6OthEWo NKyqK309QCowSzP3YSRjvt WmI5WnIGSuvLamDpI2r4R1 Ys3MJ6M4ZP62ZO10iYWjp6 Y8gYT2L1Bp TXYkotptnpeasIO6UGUrYE NjdZ62Yq1mjUpqHf6yBKQm APD4YVUguKHwW7DeaX8eGc AjMDAwMDAw I4DilHLrWQnsH094RMjpEo V3ILFyqcFbG8NeLKNhuByn LeL4c4W4Cu3YVQk5XT84UQ 43gJSji8T8 bEJ6X1OeTCOlkjnrsqzakP W4OKGdMBOcnJ44Cb6ohKep Pj7iHZAeQFK3SXThhSTkX8 SgxS0jXeHr QOIvASTdK0WirTQrRVecH0 56FTpdFwA8DJGrzoVcU5Wp UHDdeHetKfE5a7H4Td3YAV AuHF90ZKA6 cKC4AS01JW93X1XuBnmeoH FibGU+PHRhYmxlIHdpZHRo PVbaVFIfOdVuaEopVQ9jKw 9yZGVyLWNv kPfjrGViUfShg4ocLSXdWI juVP8mhTpxC2ZnvTY7PVXj q5z5Yi14X50yD7JwrCH+PG RvqIQ0cVB7 nG0pMjEaPsB8ETaaB283Oc YjpERsBsjvr9spk4mxwCd9 PtN4MWHscpZmvUsqORJ1x3 VgDd59I18e IHdpZHRoPSIxNSUiIHZhbG ruog1qiX9vFk3+PGNvbCB3 oYR5zD1rScWdZkV9EOywY4 49InRvcCIv Qzcbi9wyz1rznYd8QsBdPR ZdumBcwKelKFC8o3QoVc04 C2KxzAjcs1EnUlc0mf56xL Rkm7Y8uRI4 C8CoKSAxyybucSYpbTseDY 1bQDXsrqulNFHcoR1eSZRb I4c9YgXeDqG5MSvnK8Nchc S9WUBqmLQo KEjrGXB2R65ic6G8YTAzMH MsSUI7nNL7mF1bzZxpattg bGVmdDsgdmVydGljYWwtYW hfF374NOJx oPgmZKPniM1sSJTexOBerG veWR0wTKZrrntwGhnVTMan IEpBREEgTTwvdGQ+PHRkIH I7dAhpGSdf QJKbnU2nLLBjW1i2XoMqFc V6TBvmT0UhFTXethrwTk37 pS7eKnKcAoK1SDcdY4Larn D3NWQlfCWp ODbuHIF5L12dn6H6LIZwXR XtSQK6hQY3eL5yoYanfvxq bGVmdDsgdmVydGljYWwtYW lvP388GIMq iPngKaE1DaO9NpS1RJX1N4 AdKsu3EAOnjRpdMD2gaBWl CUouYc9vhUznfQnfJY5wWS BpbjtwYWRk zR8yGELcxKUdmPtmOU7mOL Pmwvlhy559IqSlOLF0OPGf vCDdH7FoeT4xDsFpBJDiJD DtW5HygQBv URagV963FMjvAqR8XUJtpg JjY7ReIMEcmGwbIwV8o7N3 Ce8gNMWZTDHozcjqoZA+PH DzJTO7gXvz ZCrrQCZcfY3zFVKbS4v6Jj UrEeN4VIfnV7AfUFWzmtpy Xz59cF6qKvLeHvC8MYfzX4 SjqtT4HBLk dPGyHYzfELD1H85dl0L1UL EaCWJcKCY0hUT9oL9bbFjl bjogbGVmdDsgdmVydGljYW dsOItcJ537 IHRvcDsnPkZlbWFsZTwvdG Q+SLViLRE3dHlgRDvrAKTk eM8tUHDqL4q7NfYxGpN9GY afM7MjIIUl xymcLt13wF8hZxExOoC6VV zmC1HvcoB7MRGltNApNQhm BPK3M22xq8Y5QINeZCSoDD B8hWS1wN0i bGlnbjogbGVmdDsgdmVydG nuFMnqAMzbX895KHUypVei ZdIhKNHgGP7uyPhnsFQ+PC 80ae18Y3Pj CmkyTfo3FKZvIQD8fYG1mD 2dBODyJTirf2O4eJA2C5Hv tpCpxx6on9moRGRfAEnjO3 2nsUUht6A1 TODvpTU4FOMwvAhhKuRlbR 93Oyc+GOPysHxcw2VyPmbo r1rkb1isjZz7GiAjVFLyga FsaWduPSJ0 y2UkHg33I36kILsdPHZiDU NwHQLbRQRasPixfa2fwN8o Ii8+WBReqQR4yQF6dT9yKr PkPsT1UAou I443QgJqfVBzHkepi4zzf4 olaVr0PiVuCTWwkyKivRjs NCI8k6VzTp55U9QqeFowj3 PpFtw5cv35 wJPzw9K7tAI1O1WlXYKpfo abaQOznPccAD7mWYLzyymk LNLjxK0pQMDxB6e1ZyXcLz O8GSkvY1Yj cjX3PDIhzJMaOCVojITVqB 9pwmxqj4rplkpvYfDnAUZw XEm5XXz8FNKecKywFeLqHH Y3QuP8ATZ4 pOFdfK3oeVuyrlbcsW6xWn c+JGs3m7andFEaMY8sjOD4 NZ11CY31aTWql2X6jUN2U7 BhZGRpbmct cucogHS3UYBfPHNuuY10Fs 1amDaoGk1lLFHwEOS5UWRc eWVeI2SnqI4tUrWmIULzHB ByQ9JevTJb PXwyF243TJenJnH4ABBvfq UjX9TaAXIqfZimHjZ5t6F6 Za1OWO38NQ93JL00jMVid0 V0zAQ0Q2Qp JMOqepmwgxlpxXA2FIYcEE CnoD99Tf2rqTvzWo1jYQMp GZC9KTNblSVtO6TdzN7tUh AjMDAwMDAw E8WsmBFmKTcnZ014RVbcBr B7XRFqsxNiW8TtEECntNtn OkJ3x6O8Hf8EUf74UV05RI 25qERjd8X0 bBP5E3UvAIWabronyqxzeA D0ZAFjGPVodA60Ww3zxRyu Zt6nTJQiFNZ6JSMvgFJzC1 ZeoZ4lXiOa VUTxNJJnW3JcjBPmANtiE3 44QBgqCkT2AMVkkhGbZ5Bm MXLliNrsOrF1h9Q1Vv2UHV fwzhl0R4Jo PjwvdHI+BX44YCNpDB40eF WskWIbm5nrkPx5ChFhLYQq MLH9tWrtBLsgg6GfSEAdB3 7zdPUlv1L6 IGNv (more content not included)... [facility] Consent for Treatmenton 08-14 Consent for Treatment [id number]#[id number] [facility] Discharge Instructionson Discharge Instructions [id number]#1. [id number] [facility] ED Clinical Summaryon 2021 ED Clinical Summary [place] [id number] ED Clinical Summary Person Information Name: LEENA INTERIANO [facility] Age: 32 Years : 1990 Sex: Female Language: Sign Language PCP: BENTLEY LUCERO CNP Marital Status: Phone: [phone] Visit Id: Visit Reason: Sinus Pain/Congestion; Cough; [...] 08/29/2022 18:32:51 08/29/2022 18:32:51 08/29/2022 18:32:51 ADDRESS: [address] [place] [address] [phone] [facility] DOC NOTES: MEDICAL INFORMATION: Prescriptions Given: New [...] With: Address: When: BENTLEY LUCERO [address] [place], [place] [id number] [employer] (1) In 3 days 09/01/2022 Comments: Follow-up with your primary care provider in 3 to 5 days. If symptoms worsen, do not improve, or new symptoms arise please report back to emergency department for further evaluation. DIAGNOSIS: Bronchitis [facility] ED Patient Education Noteon 08-29-2022 ED [...] these instructions at home: Medicines ? 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 ? Avoid contact with people who have [...] 10/08/2005 Document Revised: 07/14/2019 Document Reviewed: 02/18/2017 [employer] Patient Education ? 2019 [employer]. Normal [facility] ED Patient Summaryon 022 ED Patient Summary [address] [address] Patient Discharge Instructions Person Information Name: LEENA INTERIANO Age: 32 Years Arrival Date: 08/29/2022 17:23:21 Discharge Diagnosis: Bronchitis Primary Care Physician: BENTLEY LUCERO CNP Provider Information Primary Provider: Kristopher Clemons DO Advanced Lace Winder:None The exam and treatment you received in the Emergency Department were for an urgent problem and are not intended as complete care. It is important that you follow up with a doctor, nurse practitioner, or physician?s family and divorce legal assistant for ongoing care. If your symptoms [...] Address: When: BENTLEY LUCERO [address] [place] [address] Business (1) In 3 days [...] opioids can be used to help relieve iazlbget-rb-jiipty pain and are often prescribed following a [...] may be (more content not included)... [facility] XR Chest 2 Viewson XR Chest [...] MD, V. Transcribed by: MARÍA ELENA Technologist: [facility] Covid-19 PCR (CVDTBH)on SARS-CoV-2 (COVID-19) RNA PARI+probe Ql (Unsp spec) Not detected Normal NOT DETECTED [facility] Comment on above: Result Comment: When [...] for this test is supported by the [employer] of [employer] and Human Service's declaration that [...] used). Performed By: #### C VDTBH #### [facility] [address] [place] [address] Dr. Samm Hurtado ER URINE PROFILEon 2 Bilirubin Ql (U) Negative Normal NEGATIVE [facility] Comment on above: Performed By: #### U MICRO, PREGU, ERUR #### [facility] [address] [place] [address] Dr. Samm Hurtado Clarity (U) CLEAR Normal CLEAR [facility] Comment on above: Performed By: #### U MICRO, PREGU, ERUR #### [facility] [address] [place] [address] Dr. Samm Hurtado Color (U) YELLOW Normal YELLOW [facility] Comment on above: Performed By: #### U MICRO, PREGU, ERUR #### [facility] [address] [place] [address] Dr. Samm MENDEZD A micrscopic examination will be performed if indicated. Normal [facility] Comment on above: Performed By: #### U MICRO, PREGU, ERUR #### [facility] [address] [place] [address] Dr. Samm Hurtado Glucose Ql (U) Negative Normal NEGATIVE [facility] Comment on above: Performed By: #### U MICRO, PREGU, ERUR #### [facility] [address] [place] [address] Dr. Samm Hurtado Hemoglobin Ql (U) LARGE Abnormal NEGATIVE [facility] Comment on above: Performed By: #### U MICRO, PREGU, ERUR #### [facility] [address] [place] [address] [address] Samm Hurtado Ketones Ql (U) 15 mg/dl Abnormal NEGATIVE [facility] Comment on above: Performed By: #### U MICRO, PREGU, ERUR #### [facility] [address] [place] [address] [address] Samm Hurtado LEUKOCYTES Negative Normal NEGATIVE [facility] Comment on above: Performed By: #### U MICRO, PREGU, ERUR #### [facility] [address] [place] [address] [address] Samm Hurtado Nitrite Ql (U) Negative Normal NEGATIVE [facility] Comment on above: Performed By: #### U MICRO, PREGU, ERUR #### [facility] [address] [place] [address] Dr. Samm Hurtado pH (U) 5.5 [pH] Normal 5-9 [facility] Comment on above: Performed By: #### U MICRO, PREGU, ERUR #### [facility] [address] [place] [address] Dr. Samm Hurtado SPEC GRAVITY >=1.030 Abnormal 1.005-<=1.02 5 [facility] Comment on above: Performed By: #### U MICRO, PREGU, ERUR #### [facility] [address] [place] [address] Dr. Samm Hurtado UA PROTEIN Negative Normal NEGATIVE/ TRACE [facility] Comment on above: Performed By: #### U MICRO, PREGU, ERUR #### [facility] [address] [place] [address] [address] Samm Hurtado UR MICRO IND INDICATED Normal [facility] Comment on above: Performed By: #### U MICRO, PREGU, ERUR #### [facility] [address] [place] [address] Dr. Samm Hurtado Urobilinogen Qn (U) 0.2 {Edwin'U}/dL Normal 0.2 - 1. 0 [facility] Comment on above: Performed By: #### U MICRO, PREGU, ERUR #### [facility] [address] [place] [address] Dr. Samm Hurtado INFLUENZA A AND B AGon 08-20 INFLUANEGH SEE BELOW Normal [facility] Comment on above: Result Comment: Nega tive for Flu A protein angiten. Infection due to Flu A cannot be ruled out. Flu A angiten in the sample may be below the detection limit of the test. Performed By: #### I NFLUAB #### [facility] [address] [place] [address] Dr. Samm Hurtado INFLUBNEGH SEE BELOW Normal [facility] Comment on above: Result Comment: Nega tive for Flu B protein antigen. Infection due to Flu B cannot be ruled out. Flu B antigen in the sample may be below the detection limit of the test. Performed By: #### I NFLUAB #### [facility] [address] [place] [address] Dr. Samm Hurtado INFLUENZA A AG Negative Normal NEGATIVE SEE COMMENT [facility] Comment on above: Performed By: #### I NFLUAB #### [facility] [address] [place] [address] Dr. Samm Hurtado INFLUENZA B AG Negative Normal NEGATIVE SEE COMMENT [facility] Comment on above: Performed By: #### I NFLUAB #### [facility] [address] [place] [address] Dr. Samm Hurtado INTERNAL CONTROLS Within Normal Limits Normal Wi thin Normal Limits [facility] Comment on above: Performed By: #### I NFLUAB #### [facility] [address] [place] [address] Dr. Samm Hurtado URon 08-20-2022 , QUAL Negative Normal NEGATIVE [facility] Comment on above: Performed By: #### U MICRO, PREGU, ERUR #### [facility] [address] [place] [address] Dr. Samm Hurtado URINE MICROSCOPIC ONLYon BACTERIA TRACE Abnormal NONE SEEN [facility] Comment on above: Performed By: #### U MICRO, PREGU, ERUR ####[facility] [id number] [place] [address]Dr. Samm Hurtado Bacteria identified Cx Nom (U) NOT INDICATED Normal [facility] Comment on above: Performed By: #### U MICRO, PREGU, ERUR ####[facility] [id number] [place] [address]Dr. Samm Hurtado CAST NONE SEEN Normal NONE SEEN [facility] Comment on above: Performed By: #### U MICRO, PREGU, ERUR ####[facility] [id number] [place] [address]Dr. Samm Hurtado Crystals LM Nom (Urine sed) NONE SEEN Normal NONE SEEN [facility] Comment on above: Performed By: #### U MICRO, PREGU, ERUR ####[facility] [id number] [place] [address]Dr. Samm Hurtado Epithelial cells LM Ql (Urine sed) RARE Normal NONE SEEN /RARE [facility] Comment on above: Performed By: #### U MICRO, PREGU, ERUR ####[facility] [id number] [place] [address]Dr. Samm Hurtado MUCOUS NONE SEEN Normal NONE SEEN [facility] Comment on above: Performed By: #### U MICRO, PREGU, ERUR ####[facility] [id number] [place] [address]Dr. Samm Hurtado RBC 5-10 Abnormal 0-2 [facility] Comment on above: Performed By: #### U MICRO, PREGU, ERUR ####[facility] [id number] [place] [address]Dr. Samm Hurtado WBC NONE SEEN Normal NONE SEEN [facility] Comment on above: Performed By: #### U MICRO, PREGU, ERUR ####[facility] [id number] [place] [address]Dr. Samm Hurtado Coding Summary.on 06-24-2022 Coding Summary. CD:[id number] Gh 0bWw+PGhlYWQ+WP7XRSOoU 98ifHNzfK9HS6cBIX9OOZQ VLHFHNP5ACJ5hmJY3OQheL 2VybiAv BhhimOPgHP33ASi3PAH8jH qpJSgzmS5gxJAbY6k1BaQy TF88qI33JFghJLEoThY2Tu ZpbjsgbWFy Z5tnZuRzuJXkXkl+PHRhYm xlIHdpZHRoPScxMDAlJyBz eDoqSY3cNf6sTLSiMBCtpV xhcHNlOiBj g4xzLVXzVVbuYC7wjQilN9 NuxAA9SJIxo3l8Cs61jUF+ KMEqXMQ9uOroVZolz496Jq Ror3rhTPC1 tYOjYXkpANJ7H73sw5U6CH ErNWDcDVF8fXB7nY9xfNhf lcvbG9WoyJDoDuZ2TIJ8rJ ZuaO4uoAls norxiC3hJas+Y52EDP2YCZ QJEY7IAmh4X1CiAptqoZA+ RE61KSHlLH00vFFslPJft3 efbTb0TqOs UOYfBZE7cRofOWspv8UiPI ZjB94rlVUtk4A5CAJiaZzv yJJdHmBbbQZ1gL4eUIarww zkv8fxljey Ucwku9psih88bN61S60nXY cvVUPsRYM5TQRyWAWwzHpm ux3oyH5sKj8+XZkjp2dwy6 vreHd6KmYh UMNdikMqqOenTZF3y3DuNl 95V3LkeEznd0IiDkd4ag66 nNLax6B0yGY4XQilSQQcmB 4lZCheSlD8 ZTMhUaIteT98rFLbLPdbMe 2hiVrdqRxkHK8lZUWeqsih KUAnrS9xWNAqvOIudGkrNZ 4wNTBpbjtm k681KnRrOWA1KFDfbKMrL0 CamH3mBhUjZVBhIKGwI7Ti kCWhHGbtQ800ADteZiZ2XZ AlbjHaQ9Ig WDDpjWpcXtS9l0Y6Ab5Sl8 CiagpnKQO2ORquWRIjBoBf ZaEsBlF0E7LyZbh4XDYjhF iiFS9rB6Jo CQYpbheqkkrugGL0SHYjZG LngS13yYYoUOexSb1re0I9 x926ZZXvVJNktS45Ws3haJ ogMTBwdCBU kU1qeagun8apisfwGqAgFO TdNZh7WUj6SJHwfIiuEaKe LYF9ImZ4WPO5fHBvcB1jcT iehmuqcE5p Oyc+T51xvI7qDYW5KTC8re znCBGphxOmSN41UH13M4Tt PjwvdGFibGU+PGRpdiBzdH npXD2dArBl d4sqy0WtODxxS8DjIWCqFE ywBvc2ZBPvHWH8jJA8hB5u ZEVoRHmgx2L9oXW9L5Zfwq Otsx3rl2vr XYDbBQssU13amTIzr4L2HP RtpPA8EMKheEtlMnWmzG52 Oyc+XSNscJsgb3UnFgyax6 dlb6ntsEb3 BjZkFNIdswHtdOfwTDI2f5 OjTw26U39aTJalDVIvUJBg EAPvLNOsgHljeu0apL1uPw 8+PGNvbCB3 jLM8eJ4nOASySmY6VSomQ4 64AyOybGReRqvls3wkw1kz jTs7WjNqKDPmptYzsNbaXO E7e0KcVq54 Z02uSEjhEYVqWZNpWLNnTS ErsPpnnp3ufP8sWm5+PC9j k0ewjv17xT21vSZ+PHRkIH C9pGtlRYyo BYFthO1kFPawUnP0GHVpQy EadT82wASfQNuvLy5neEdn sKltUD8hKCQixdtfl042Pb Ngv6xtKGLm dBUmKSzuJGO7I56rx1K5AJ ZqBOMoNFZ8yGH9lE6lzQdv bjogbGVmdDsgdmVydGljYW duGAptM690 IHRvcDsnPlBhdGllbnQgTm HySJk3D7PzDgx0FBQjbYns PM0faXHhRSpyLz0wfRgzxQ vtRM5jPYVd qxomu164GlWdy1viHBRrqJ OgCBhzNOL7S63bk9Q9QVHt YXUvCUE4uOS6zJ0ptQocyq ogbGVmdDsg ckObqNoqAJtoOSfxI709VU RvcDsnPkJpcnRoIERhdGU6 HE62KI05tCYsi6T3bCT7L4 BhZGRpbmct tfvguAB7OXQfVSBjhW79Ar 9olWanQo1qQIWlSQL9ZAQk sFIxD2ZoaE7xOoRaFIPhRP CdV7ZedIGq GTsvA155ZVjzOdB1CBJwey KwN1IzISKeyNvqUaF4c6Q4 Bu5JV6W8OY18JO09eDRvu8 E9vTP5Z2Qk CXZsrpwlipvkhPH3DLAxAG FavM26Eb9scWlxRh1lJYTy FRK4JJWmdESdA3KrjC9pFl AjMDAwMDAw F4UyoDTlKGkyI678KMofXy B9UINwmsIyD9AqIQTseNdr XjE2x6F2Gt3AKTc8GL53XS 83gODab1Y5 eFZ6F9BoDKRzjbqwkgwdeW L8PRWeTARtxW56Qm7tpNql Pp2wPXEiUUO6FZMgbJAwW3 JinK2nIuCm DTLlWWCzA0PghTHbKVnuV4 27NKjzEtV7OJKkdnZnD6Vj BCHzeBctGhC6a6C5Yl3MCY XdWF63AYL4 xAX8NR37II30Z6HoYuezcB FibGU+PHRhYmxlIHdpZHRo UMbdEVZuRvWrzLmrFU5lUe 9yZGVyLWNv pVdzqQWyBhZpb1ckBWMqDI ndTZ0hlIuyM4CvwQC1JNHt f8e2Zu34L82xG7BwoOM+PG BstQT9jZI5 dH8jFcMgDbI6QKkoU791Zb RmpNZiLzucq2axb3qviPd5 LfP1MPOqxgXnfQwnXFA9x4 XsDs95Q87k IHdpZHRoPSIxNSUiIHZhbG ifyz8aqS6uOj3+PGNvbCB3 oCX8jW6iMlWiAlA3TRuiI0 49InRvcCIv Luyps7ryx5efhLl5LjPoIM DdilBtlOigVPW8i6JeHd54 U1RnnQtjz0XoHyf8ci18kJ Wqr0K3sDJ0 V0FoUBQluhmhpDFvwFmwTK 6dPDMmxsjlLMAosV9sRMUg E4n9FeZfBoN3QHagO1Auvl Q6HJGalMYw RSgzZNY4O81kl1E2SATbZY RgPMD8gST0nA6wqGafmoph bGVmdDsgdmVydGljYWwtYW dcX839IJJw qYrzAQIwoA3zYYTkwXGdaX qlYG4zOYGuzunrSqaPNLtk IEpBREEgTTwvdGQ+PHRkIH I9uLmgXLap RUMfpX4kCFFtP3m2PoLaCi E7SVhgS1EnUIUcbyxeOc26 cT7xVbQnJyU6RVfcA0Ovdg G5XIWarVPu NZzoLUD6I42ov7S1AETvFW QqMNX4aQW3zM2ijZmsmqkn bGVmdDsgdmVydGljYWwtYW arP120YBDj hBylBpJ2YeF0PxA6AHX5S6 OtGbr4PWNhhZzcWD8jqHKb FNqpEj8vzKxplOnpJE6yAB BpbjtwYWRk tB9yLEYneKXdwIehYV2pAJ Weemmkc427TtLqUHY5WIPs ePWcN7SwdL9gVhZqOVIbAC EcL6JduVCc UOrvC471IMrfLbS7KHPrhq QxG0KlSFGsaDhlBzD7w7R1 Yw8kMLPNJZEhwxhceXB+PH SqKTF4xVas ZWnoDNSlyA0cBIIcQ6r0Ye GwJuB2LCmwB9TuXNAnxaku Sl80vQ6tPpOwFrK6FIjsR5 BlvuC0OVIy xFSbUYoeTUA4W19dc5E7AI PmXHEhTLT5hRK7pU1qhBgu bjogbGVmdDsgdmVydGljYW uuAFspX454 IHRvcDsnPkZlbWFsZTwvdG Q+PNLpZSJ3gXmhJUmeFQSh lA9zTQPcA1z3BpZpPnF9MY fbR6HdHHMi vydpJs91xI8kGyUoVhE3WL xdP5EbjdE6UIWpdULrKOjh EGV4X17wz2M9IGUdUXUuRQ N9eWV4pB7q bGlnbjogbGVmdDsgdmVydG ckLArsOWflD432UYGxnFft QbEpSDOvBT8nlQnxmXA+PC 75bx67W8Ia RcraVsg8TKGqNCE1pXH6wB 4dLGBnUTipp4B4lGF8W2Ql rxHrzl8wn7idISViLSdpB5 5sfQAmv8B3 ETOquPL7VQMqvWvsPwWxvB 93Oyc+PFHeyGypn0VtDchw q1xrs5dlxFi0MzJpCXFnxm FsaWduPSJ0 h7LmQf98M93xFIjkGDWnNI FbVKKtHBTewFrplc1veL3e Ii8+FVTmiZN9aPW3eT4aIa JvPcT2LHeb M862JgRrdEIxVktkr8ahf3 aehFx0PzBrLFJspzQdiTnl OPK2g7AnZe33V2WthXorv2 XgTjv0jz79 tIGed2E1qKH4W5BnRMShnl vcfUPnbHeeHT3rYLDwrbto RRCbdD5fZFDtD6b2OcHkCz B0XBusA9Pn lsP3KMVyoVDrFIDwsMYWjP 3tkrjpg6fposydYiEtXEVr SAd2UZr3UGTksMvbExEbHL G1LgI6DOH9 kTGfsV2bvEfnaxwipG7yRh c+YZy1p1wyzVQyAJ3csNA2 FW91BK51hQGxs8F1oXE7P3 BhZGRpbmct hkgptMF8HTSdCXJgyV46Io 2jaXgjWw1lCVIjSBO4RESz pKWkV7OpwK5kXfUiSUBsTW IxI7QqyTBc XFyuA562YAqxKiI1PMXfsm VjJ5LwCBAcjAczUiG0k1I0 Fq9XBQ99ZX80JU33vHSlp9 Y7bHM1G8Gp XLMwficumfuntRP4IXFzZI NucS84Et5xhDzcAk4lHPNe VNE3XMSqnUHaP7LjdG4kAe AjMDAwMDAw A4JbbBSfLRitQ628FZgvTq R8DRMavvCwV5GpWMKhiIrq AsI9u9B3Rt1CAi09AO71QF 01fVOef0Y1 qNC9W6KcWLSbwtceznltyY Y7CBIpTKJeoH98Kv8ysBjn Wf1rLJIhKVZ4IGYgcDIdV9 QzsI4gGiDk ONCwBVLsV9VzbVKrKStxQ6 70JWsgVgQ4FDEktuQbW6Fh BLTofDghTkM2w5V9Wz2RVC bvudu6I4Zi PjwvdHI+SP32GUEgYU98wU SapYHsi6itbGm3CdTlKPUk MAR4rEdwPBgxq7TuJKOaI6 0thQGfw0J2 IGNv (more content not included)... Normal [facility] Coding Summary. CD:[id number] Gh 0bWw+PGhlYWQ+XY3ZHHQeC 33knOYbjI1SI5cYJC6EOHL XQGYVCQ3YNE5flKH6TDbuG 2VybiAv EgwkbXKbJM68CEp5XBX7iF npUIleyV7egCJnI9t9PtAa JV41eA01DWwbFOLxKxE4Er ZpbjsgbWFy Z7vcOvHxyPMxYcu+PHRhYm xlIHdpZHRoPScxMDAlJyBz vTckKJ0kXn3tEBRwZWTmpT xhcHNlOiBj n9qrXEPlXZokEY0pkGmcM3 CjaGO6JGFfy9u8Sn43zMY+ LYNiLPT9cElwSHacg817Lm Aso9sdVPI7 fRKmAGcnJKW3D21um7O7HS KmYDPqVMN8bPC6mF8hrOea ihcxT6RjnPTvWgK2NMX2uE NpvG7tjMyc ifsxtG3uUhg+L54EYC2ZWH OBHJ6AGnv9A2VeOiolzHK+ UA19OMSfSN12gGYemZAnd6 zgpXn4NwOo NOZbPLB2gIuaXUvzv2MsVN FnA48kxRUlb8L2CLJvsIsi mCInEfQjrCF5kV4aLAixiv qyo4agsowz Ivoiq6occt12eJ30D74mVI pvLHCyHHH0MOTiWMQddDec eo6vjX3kLt0+ULrxa1qqa2 sssVe2BqWy IRMnheGtxCrqPHK9b9OtHj 91P9IxbYnzo1EeFli2nd97 gEOtj2W0iNJ7QLbrLADwpE 6aBVciQdH4 MFClYaGfaA90gCPiBTarEy 9kuKlepVsvVZ9lMKVdwnqr USNphI4xWEAvzDDyzEjtPR 4wNTBpbjtm e273XwEgSIK8VPDfaXJlG5 KudH9iHlQjAFZaIPQhM1Bc vLMyPOnhP132EUtyChP9WA MlgmJvS2Hs QNJnrEfrDtC3a5Q6Bp2Or2 IllnlbYXB3RVzgZQRyVdTq HsAkUsH5W8FrIes6MBVbiF mhKX6iE4Xg PILrmcaygxclyVJ2VMLrOI HmlC93yHWxRRgvIt2fj0N3 o553ONQjRUEysE77Zc4lfO ogMTBwdCBU wC2boyujx7bacyirVoEgKH TnQAp0IGl7DJQbyHmzGiPz ZAY0KrQ4DQO1fRBiiK2gxJ yfuargxS4n Oyc+I17geN7cWSG6QSP0lo tuPGRgtrIxVR63BH37B6Sw PjwvdGFibGU+PGRpdiBzdH eeIN2kAmSt f7mra2XvQQoxE5JaCCXeMP uvMqe6DZNySQC2cVQ4dU5a DBCmTPbki7M6dQI4S3Ivzx Ghak9hu1jv IXCkHTvfJ29pkUSso7P2JI CptJP5FJLasJqpCgMklF58 Oyc+AEFyrLjgz1OfSeuze4 ubk1ulfSs9 MfBlROYsnjYvfXboBAF2r6 VzXo35P21jPYgyDJHeOFKt EJJjANGqhBrewe9gnO6bYk 8+PGNvbCB3 lUD3bK2cRQDuKdS8ZXhlV6 72AkYmdAJgMymgw3ccj5hr cPt1KmWzEFGdhaPuhRdeWF K3y7XoAx09 A27dHWhiXGKnEKMpSYObBB LceAjkzu5klS3uAt6+PC9j p4cdiw38bQ18aDY+PHRkIH P0yEgfCKto HKQkyD7wMOcoZwK6ZDZtKw KauT36uRZyYRduOz3mhQph kEgwKM6kYXVghlspz111Hg Zfm4ayKXVj gNUmXZlhRJU4X55ay1O5CD YlIKGrYJW4nKV0jX9fnFtn bjogbGVmdDsgdmVydGljYW oxMDsnW960 IHRvcDsnPlBhdGllbnQgTm XoDLu1R3SrHpi8KSMjiIsd HH3xuUWdAOunFo0xbSvctN esQW3cXEPs dvpky301VkRbt9wfJPPzuX KpKTwpFCG9C05ji5T5BQJu YVWrIZD7tST1bM5tfEybre ogbGVmdDsg etRscCvyJQfrFYrtJ073GW RvcDsnPkJpcnRoIERhdGU6 GC28CN38jEPso2E5mPT1L2 BhZGRpbmct njzhzNS4LQHiUPVchY73Wq 4xcVcwHh5zGMKrOPV4QIUy hTVyQ5PerU8eKnVvFLCwEG RmX7NqgPIs DLmjX248PEdxIxQ3PLJxhq UoW2YdZNBucRqlQwF6c0V5 Pg3JJ6X8JC95ZL49eBUjq7 P9iHF8D7Hn SRExicujianleOB5WMZrYR PgyJ94Uj3fpJsrQr3vPQYo AJF2KCAvrCQsL8GtsD4bZn AjMDAwMDAw I2GyqSGzFDwpH934DQisFc T9ZAUtheBgA9OvOHHgoAmy XxI3v0Q7Ix2UXMx8TL35WR 34bIGxt4H6 pSZ9Y3LsMQQabmvpdxnhcE G4ATPqLAHqwC68Qa7glHdp If9zLIJhPYB5MUWjoHRkO2 QzcV5aTzYi OWWyAGRlQ4JnrPUpXXvyV1 64WHtkPqJ8YRJhiuNfT9Ij TVRosWzbOyK3f3H8Wv0UPM JfWR35QDB2 sAR1ZJ14TD82Z9JuCnyhkY FibGU+PHRhYmxlIHdpZHRo CZzcVDHsKvOeeJfyGW6gKr 9yZGVyLWNv dBbztARxXvTaq7ipDMRcBV iwMN0ojZggR7VbxON4BVIn w5m3Vg57A13uQ5PwoVZ+PG ZwdRS1bRI6 kQ5kAiPzQsG9INtzU396Zv MleZWvIqduq6jyx2ueiNi5 AbF3VMVchwIhpJouONA8q5 KuZn56Q56w IHdpZHRoPSIxNSUiIHZhbG jcic4ztV2ySf7+PGNvbCB3 wVH8rS3kIzOwLjM6QUooV1 49InRvcCIv Grjeu3bdf4qpxDn6ZcPmAF XdwyGyzKrfBJD6l4TxIw47 N3VtyMjsx4FcUdu0fp31nF Fbc5T2vQZ8 R7MpWLGfzvvatHCzhMnxZW 1lSMEilxmaWHOzbV9wDMWu Q9x4ZcRhKjT2WWyhO6Vrxu T7EDUnsHYm RZnuHYY8P75xb4C0PRKmHM JfQML8uJR0jI8ukQehgukb bGVmdDsgdmVydGljYWwtYW ujI655IZCx hIxdWJBytF7jFKDjgESxoG vjAG8bYYCksfbbDhjPGUqz IEpBREEgTTwvdGQ+PHRkIH S1uAnhYYvp XQOawH6pFWKaW5p2OpHbZw L8WFooQ5LkDZDbejlxCo75 hH3rWlRbVwV3YXerT8Hpti X8NKGetFWv IPiaZZR9V32ct2F1OUHfJY ZjLCT7cXL6fO6jfJgloutt bGVmdDsgdmVydGljYWwtYW gsW918FBPp pKgaKwV0XhI0GuD2VVV8B2 FpKhk7BVKnhEjzFK4znYKb WBnyUe7qjViwtJnkDG5xTJ BpbjtwYWRk vN6tRVWlqGDayZgwZS3zOD Onidrxh109KxEzOQN6FGAh bTAdW6GpyM7kTxYaHGJySZ DqU5TdbDPm JBegT168GBuyKqJ7OIIdrd StM4WwGPTzmWyyRqZ0d3Y1 Ex8rKDPYAFDcdamjvPV+PH RwUWZ3oDue MYqaXSFrzI6mYEHlN0b9He HeYqY4HJfsK4PwRHDpxuic Yx27mL1sYjIlLyV9BRrxY3 PuuwW8ZAZe uRMxIKvpVZT1W70nj7M5QZ NnCHHgGGH4qMY1uD9zoFvo bjogbGVmdDsgdmVydGljYW ueWSmoO165 IHRvcDsnPkZlbWFsZTwvdG Q+MTNvVJZ2iTojHFjxYHIb sH2zDCDoD6d2CfJqShZ4CG dsO1LjAIMa bjptDy40pV1mTbNzYpY6RN nmS7UefoC3UHAlhVRyPOml FDS2O15kd6M5BLQgGTWwEJ T1lCB0wX7i bGlnbjogbGVmdDsgdmVydG bqFLcfPDyoF852GOCzwKym GyIuLLUvMU6wcYoafHM+PC 27ri94B5Zo JkykXst9GOCiLIL7jAH9xS 8hLLSlXVnch4A6oQZ1G6Sn jkDjlk3au2odUCVyDMifT2 7tgDAyr5J9 RMZncKQ5OEWvdFgnFyIfbC 93Oyc+UKEfnIjct2RqBhpp z8icm5zeuVe4BdWtVJRvme FsaWduPSJ0 s8DmGu48C54yASheTOJqFI SyCMQgIYIaxMjblk1idR4g Ii8+CWXinRK6zAH3hU2yBt YqFbK6LJqk Q454RqJgcTWkLbrnq8gqj7 jhbEv1EhPsTIQdvtIhqZct KHL6s4TqIa03T7HnwKrkm0 WzDom2oy66 mQRxp1Y8hBJ0J5NhWQMpes sveBWrqDhoUA7wPCOpjwle NSZrpE9dYCYnG3d1XqRpGv A0NKbaS9It qvA7QFFuxJHhBRUhjSAQyH 3smtgks6irmnbeGiZqFTDb BSi5MIu9RDCrkXozTjHkYN K9AuQ2HTM8 wZYgfF5qlWlurgnqkF3vNp c+KTb7l4lwhWRqPX8omFN6 RX80IP39hQQsd7L5fWA1X0 BhZGRpbmct zmhmqGQ6GZNhJNVxvN56Vo 8mzOkqJk2nCDLfAQF0RSXx hTBaS9IqnJ0sDcBeXOIiJB WjD2XmxFBh VJirW783UZjnFmG7VVLefo FsN4FoBRHndZndPkK9m9C1 Nn2VKW44SD88CX07vEPwc6 Q3pJK8K9Io PRDgvbohltwiaZS5VWXnPD OiyC56Rv5dyQotRk0gFGZy FOR8OISbyLQwM8ShfS3tFt AjMDAwMDAw F6JscUCcLQzoS078GTwbNs V2YOTgrbNvK7DxMIOohHxb ZbN2t7Z6Xo5JCj59MJ39IM 79yDSml6T8 nCL5Q7NkIOItilwhqbvsqH W2HSSjXBXhmG52Sl5hzEcm Zn9oRBGaRDB7EWEytBYlO6 VloK6vBrFj MHMfZGHtK1WnhVGfGPtiJ7 10FCifPnN7TXDzpfOmQ6Rn FCXyxLdsUnQ6c2W3Yr4RVL dcxnh1F4Or PjwvdHI+TC23WWXyOX90lB FhqTJzx4xsyZz9UrIeRGPy QQM8mPvsKCgge4RwLHIzZ1 9ytDRkq8B9 IGNv (more content not included)... Normal [facility] Coding Summary. CD:[id number]:2395409D Gh 0bWw+PGhlYWQ+HD7YCDHxM 66wmIDoeK7ID7qQDD2MTBX MLRHUUO0JIT3akAV2QVshN 2VybiAv XolrwQCnUF41DOy4IBO9hD lkIHflhK6nxVFdO2u0VlEz WE00pY41CHoaOHJyHzD7Yx ZpbjsgbWFy B0yyPaNghFPdSgz+PHRhYm xlIHdpZHRoPScxMDAlJyBz nRxmSP0eYk1hAAMwITQisF xhcHNlOiBj u3qiEABtKErqKG3jdUrwM3 GwpBV8SUKgi7a4Zq81tCB+ KWArFKC1mBmtUWswf170Cg Tcd1qxKPQ3 cODzXLjcCTG0L20nz6N3GL SaBCDcXYY5tTW3uI5ctLed oxytW9NxtRQlEeK9HCG4hO QelY6doYlr tvzxbU3gXuk+Q13RIG3RCG VMXK7GWkz2N0QuNroejVW+ UX08TUVwKQ24oRAhsREox9 ymqJs8KzBs IXFwPED6oBsfOFdqj2UxNG FiJ95yqOXpr8L1GFEyqPtw uPRjHcXbkZW9rG7kJWnjij wih5pplcay Lmotx8zghx98xJ16I60sDW sbVNFfESE8WIUuYAFccCdq kp8vxM4sAu9+OPwrt4srk5 yasVh1HiIc LOPsniWzvBpzKQK8f8PbEo 65V4GmyPwyl1ShAdi6aj09 rUMgs7N8wMN6REgzRCZkkA 7lPBlqUsS9 XINhOaPuqE46cNKqQBviBs 2vdSmpyCosZU0cLJSgwchs GMNgxX4lZOOldEJgnRfyKK 4wNTBpbjtm i508FfFqTYO5IFDvzBIgY2 VfxL1eJwYeRTUdRWLgN7Oc dPUiPVpwB891ECqeBpI0OG WumdLoA4Xw DIMveWhiJuT7m3Q0Rx0Af3 WwyopgRSC4OLcyNZBrJiZb KrQiMeD2L1WcJbm4RKAivQ ytYF3gK5Xa KTIgnvapjixhyUL0ZTMjLH YapJ93kBPtGLvzEu6hh9B5 d852FDFaIUFarO78Vz0crO ogMTBwdCBU uF6awxhjo7trctfwCpQuCJ VvHWl7QKb6UCAnwSbpMuCv BTV5FyW5BVQ7fJQbvM4idM vlsxjcjT7t Oyc+D28rfW4fGRV3CXU5as ytDYVfsoXsLK92ZA88B1Gs PjwvdGFibGU+PGRpdiBzdH dkPT9rCbVo d0gyt2QiOOqkF6SyZPAiWU nkVzo2LXVpBQX3qHL0aG1t NMDeJSoxq1U1cNF9M4Bane Tvzo9nv2kf KXKsDYtaS25kgBFse7C3EX PjrJB9HURjcJdjWoXidK51 Oyc+VPZwuVaet3ZbWrdab4 qnu2bxsJt5 QjLhVSQsggRlmZqtLDK3k2 JpPo13B41fWRbxYOZoMUJe SINdELVnmLhzhp1krH8iUz 8+PGNvbCB3 vWJ1uE0hSZXjBuD6SCayQ6 39SpLecEUiHslln1xcz1ew xSv5YeYaVHJhhfJhcJsyEU F7d4OjPx39 V54iHWhpVXViZOVzTQWhUY MenEldwe7ehR4oQw8+PC9j t5ibpp25tX52sHG+PHRkIH I6kKdgLFli RAYdgL8eRQxcSdR0YYKpXq IdiA76gUQfWCjmQz0jhVyq sFatXV1vKVUawpyuy557Pn Uxe7hxQXJt iOQzRBpeIVG3X34hl1A5MP GgINEqCFZ0tEN2tM2enFjb bjogbGVmdDsgdmVydGljYW gqNUueN040 IHRvcDsnPlBhdGllbnQgTm IjHAx1Y6LlTnp2NLAyeQrm YU0umFWkZPfuNq6rsZbnaS edDD3oHBYv kalef105MhMkh6tnMJYtuO QnSPncSLI6E35cf2P0NRFp GPAxYBA3cAI6iZ8srWbcuv ogbGVmdDsg kzDveNcpFOyaOZxrL429ZH RvcDsnPkJpcnRoIERhdGU6 LM04MV93qJRqi9N5oFP6O7 BhZGRpbmct itrheMB8DLFnFHHtcM24Dq 4hqNjnOn8zUOTkWPH0RICw oPTiQ6CiaF0vYdVrQTDjZE KrE7JedAXz QJlqH763UNakIjF0BPSpak MdX3QzKLJxnYkbTvX0z9N7 Fj6FU3B9OT70VY53yIUse3 Z9sNG9S7Nr ZQGugyxneehdaAH3MHMsLA MfeL69Su4jkOeaGa3mBXYq KTV3OIXewTCuO0BalD7cCt AjMDAwMDAw G2GvlWVrVIcyH819VXowWb P3TYGknaYrJ5CcRFVelWdq IqX0u3L2Jv0LFNu9WO57NA 06kGEml4D3 iRM0Y1ByAABgzhanfegqbX W3REUnSZKasV09Io8zxIcl Qf3wYIYcBUX8ACFkjCEcK3 PqzN5hKlKi LTOmNXSuL0TvrCUzPBrmH1 73ZKdkJiM5SFOlolRtS1Hc UIEgrSacUsA4q1T9Rw2PNW EbMZ19ITU4 vWO7GW28RU86B3OwEvfgeK FibGU+PHRhYmxlIHdpZHRo UClfXJWpNaLkuZxuHX7fVo 9yZGVyLWNv zLibsFFtUiBqz9ooEMDlJM bfBN0pbVwzO6LwhFO0EQQx x1i2Cb78W69vP8KakPW+PG LlfJK1lPS4 pV8sXmRbZfN3PMifS683Jm EojHTpMelbw3dtp2reeSc2 WiU2XCBbesNeiZysOLN1o6 CnBv99J63v IHdpZHRoPSIxNSUiIHZhbG ygvy5ebQ4zUv4+PGNvbCB3 dDS3eY7wRgQbCwY7MUbdX5 49InRvcCIv Pvvqb0csx4fcjMu5SkCsFG CqeoOzqLbfJSX8o6WpRv43 C4FueEmrp8XfVle3mx02uB Qjl1V3nNQ8 E2GsHGMqtprmgTHssRipDI 7dUJAvlxjiXSGdaR5zKSQj K5r1TqRaFxC9WGtdD1Ayur C3MSKhoCCq ZUniDQL3A84cm0T2CTDhQN JpIFL8dHP7vD2bjRwrmclk bGVmdDsgdmVydGljYWwtYW dyW709CAFj rRsaPUWukA5yXORgqYUwbG uiOJ2nVTYbcdyhXacRCCuj IEpBREEgTTwvdGQ+PHRkIH E9rJbyVBgr HYUlxS7wQGVmP5k8ChExJq W5XSogY2DjDSZmasmlAg75 nC9jFiCbViD7FGrwD9Lfwk G3HXVofMBt AVkfLKZ8N69zs3P4OOEdAL TxCZZ6iMF3sB7bfEuhfzwv bGVmdDsgdmVydGljYWwtYW ckF365KNFr iTgtOlT2DhT2HnH8DKB4I6 NfYcu3EKRlhWsdJZ3pqBEz ZYwsZt1efPlleHpcNR1uFN BpbjtwYWRk yW5zMAIqrRCsdDnqTT9eBQ Mhjlhmu666IaJlJYG7PFHi qNEuN1KbdP3kZiZgJPBuDG OsJ1WioWRa HVakK713ZTpgCxY8WNQrri GoE4IjLVAiwApyRmV4h0E6 Jg8hUJAYNFAvgxznfYV+PH CtWGK0mMrc JBofQNVohE1uPZEeE4k2Pq CjVsN0LQcnE3WdCNOwowle Eu18iV1oBpOzOxH3BScjC2 KbxvM4GVJf zURlGLmjQIM8E99lu9L7JR NtTGSzBGX2cXZ9wZ7kmWzt bjogbGVmdDsgdmVydGljYW xtRHvnY865 IHRvcDsnPkZlbWFsZTwvdG Q+HCNwVEF4bNvyRDqpEQTy oR6wYFPkG8b2RhLiMjO2OA nwN3RmUYDm ohmhYb49nJ9zPlHlOfP7YV xyL7JdmkI7QSGkpBBiAOhl GEN4C94vq8K9FTKrKHQkXM L0hCH0eX6f bGlnbjogbGVmdDsgdmVydG kzKEwoOKfqB183ZINpjSci IbKrOJGcCX2kdYpudII+PC 88yh03C8Gc XipmAfu5ZMMdVJI1dTZ4xL 9tMODtAZege9Y3kUH9O0Qz fvAfrz7rb3owONIoCQqeC0 8cvLAub9O4 AZJatME8GOBrhRoxJwEenA 93Oyc+TAEfjFows1NiLwwc z8xqp7ekuDu5KpQcMWKbed FsaWduPSJ0 i8NbOg00K99sMJsmWOAoLG QjNLOjXOBkbLdobk6lhQ6u Ii8+ALXchZN6uDP5jJ8sJw FnOsQ4NJfv A385JiIdcMUdXomsg4uus1 zrkJc9JlVqAOCarnQtpXcw ZUY8g6VwPq00N4PthVsjy0 RkQhk1hk13 dYCiv1C8lLY7G7BxWNUnxf wbuNHkyYsrGP9qDAOufsdj GWZteV1eCTQbV3n2KpXgBs W8JQrzS6Mu quC9ETDxkCNaHMGhzETTzA 2mdzsyo1xdvkekMaMwHMQm KPy1QZq7QADtbOewLaOxCV E0BbV7GEM7 nIIzhB2vjFrsxeccxL6qYo c+RAv2m3sawANmBG5udTB4 FS11WN12lHBwz3Y8zWQ3Y1 BhZGRpbmct iifzkVR3WUZsJVFviL53Xt 1ubRygGz3mMVTbEDC1THMa iPOwE9EjwX8kLyWmRIFcNB AdT0NauNZc BGokM337LWrvFsB5UXXvus CtG4EoSWWgmSgaVrQ7u7Q2 Xc1SMZ03DP32IM81zTXej3 I6kET9Y9Lt RNWyebzdfxewlHR2RJEeDA UmyA15Jq7joJrsBf6zARXn NXN0KYQiqLWpH9EqjL7kZs AjMDAwMDAw Y2UbnMDlHToaE610JUqvWr O1EGLextXdR2UwZQItoJfe RgW3e6L8Fb9CHe88LW84QB 20iFJkl6I0 mKA8F0MjAKIkjdpuvndpoS J7FCSbASTpbV27Wr0nzZiw Rs9wQHGlPEN6IBRgxDVjY4 HeaJ7pYrOk SVBeYZPlV1DxpYHxJRuaR3 07ENtbCiY3TXBevmWwT2Wh VDNcoSvpQpY4p0H7Sg0QGX jcdim6K0Ny PjwvdHI+QW77BFGoRE77gC IevNRaj2htzYj3YcDfQYXt MGE2wDexUColn5FfAGLnY3 5ezBKjn6S7 IGNv (more content not included)... [facility] Coding Summary. CD:[id number] Gh 0bWw+PGhlYWQ+JR6BVZKkF 90jiSOcuS0AS0zPVN5OZLV GGWCLBD7ICS9fuVM1YXihU 2VybiAv WokayINwXC37HOc1FGB3kQ ltQUqzeJ2qgCZqM3t9GpKi ZW11pL35LCshEDWfTrL0Gm ZpbjsgbWFy I5oxAgZbaMXjUlg+PHRhYm xlIHdpZHRoPScxMDAlJyBz nFrqIO9sKn5jHAOkGSMcjU xhcHNlOiBj g8hfDRNfIWvcSO2boRjbO1 ScaBM9XBCon8r5Xe77uMZ+ ZLFcHSW3pRysRZdrh515Cf Hkm1msFIF8 vKOrVOtsABF1B70lg4C8YJ SsXDIuNLI4sGO4qV8jiXqt zygwJ1KsqRKzDaT9BUW4uT GhaL6dqZaa rrrfaN2nLtp+M66UQA0RRJ BKQF5DNqt0R2EyWfwsiZM+ AC09NEEpMQ03tARxnTYga2 ustEd3JyNs ZDSeCOH4pHsxIUlmd7IiXH CkL47fiUSfp9L3HMVheCdr fIErVyZxuAT7gZ5aJNiotr vzh6vaqein Qnyok5hijq95wU92B02oNA nyGWQfXUT4POFqYSWgsUve bi8duQ0dEn8+LSxvq0lrb9 jwxZe0EyVm RTZqdxWoaYyoIUS0e8BkZr 13K8FlrKxvf8LoFgs2ez99 iHBsj0P3aTK7HLsaBYLoiK 7qYVjcVzE6 NUDqKpLbgR44sUPfYOyeSj 9siHgboCtmKN8hTQSxbfsy IWKtpW6bOSLppFNeoYbiJH 4wNTBpbjtm r791LiVnZOI7ECTwdCLfE3 UshE6eYjLeBRExQZHpA2Ea vAPrHGrtO859AJezZsQ2YG QdiiYvB2Zv PUAtmYyuSqA6g9E3Sm9Yy0 DddbtfPFG4ALpgDRLqGgRf UbQvVkC7X0FsNqy3MIPzwH waQN6yF8Zm NHDwffhkmcdubWO2NMUzNL VypI21gRNlQOpvGa9no8F1 h649KJYgAUBjxO22Cg3cmF ogMTBwdCBU fU9egktuo5ttqvxhSiOiPU WoYIl1JVk5MDQuwPiwEdXe YSP0GbY4QAE3zWLolR3dvR sizwtnfG9w Oyc+C47frK3oRCF5XZS7tg ueDBYwfrKgLV86MW19W1Uc PjwvdGFibGU+PGRpdiBzdH woHQ1vFgTm q6yzb8VdGYbwV8VaOXPvFL bbRgo4MYSpYVT8jAT1rO2q BLTuBLusm7M0wNW7R4Gwqq Bxrl2xp4rd CPSzIXrvW67pzELcj9M0NZ SiyKX7YXDbaZdaVtIydY14 Oyc+DSQyzEyge7SeEybuo5 hcs1vniYa5 SfRcCQLejwUmlWlpUIO0w4 JkRu71E72fDWahFGRbEZQq PYUrIUFetJhgen8rwW4bPk 8+PGNvbCB3 zVR6bJ4kYZCdSxZ3AGtiQ9 90ObXamNYpRpwen3aii4bc xGg7OaHgMYHnucEkpAibZM I4q2TxMf95 J68tARxzBDCfXYXvWFAlQR EzcGcxqu9pcD4xOn6+PC9j k0bjqm73gQ62fTS+PHRkIH C3mQhfCKbh YAJarW0oPMfdEgF1VTKmPu KcsO89vEYbIOnwAh6beAez bXubCR6oEEAxxeosh529Lz Aki7fxAHUi kJGwTUqmYJY2Z61ff9K7AX VfKQUsGFR7oNN4oF0gqVbp bjogbGVmdDsgdmVydGljYW reGVhnF488 IHRvcDsnPlBhdGllbnQgTm WmVNs2E7NgDgh8TTSbnKzp FL4apFRiVXlrZy7kiAkvtI nqLI6lCPUz idktx044XeVpq9rfPJSqfO GoBLefCUF2H66sa6K2YDWq MHAzVML2mPG7sB7iwYlnsn ogbGVmdDsg gvQczSifHKuvVXnuD936OO RvcDsnPkJpcnRoIERhdGU6 NB87PD26lGYgj7F2eDK9Q1 BhZGRpbmct yoxulYA9GNBpCGJeaP22Da 5pyKfoXa8bQVLfQKE6XGJq tTTcE5PfkV3pCuAyOQLnRA NjA8XbtKEz RVkaK520LHimRkH6UXReeu WuO1YmPHEqbAqyPsE7g7E7 Ro5SU4T9WL91RS45qSFkr8 E5aOB2A4Mn VARiuradqxrnyMR1MCMjEF PucA74Qn3kqKgqUf3xZVAi GAI5PSGflTGzL2FjsE4uBl AjMDAwMDAw Z1AoeQHvLOnvC933LJiyId X5UXEyugVxL0YqRZZvtDgo XxW3w1E6Tf0TKUu8FC89IC 20gMAxh0O3 hBN1C1KmFCYrosgiiluqvR L0NYRpPZCflX97Sk5enQow Cn5pKTZzJBY6DJYsxLVjZ7 IcwB9sCyTe XSSfLUPtP7CbhLAfEPteL1 63ZCxlJmR9YNQxjiExM3Af WFKpkEwsThP3o7V3Kj1HAH TjTY26GUJ1 aHP3OF84VD24M0OyTsjcoW FibGU+PHRhYmxlIHdpZHRo WYxzJVGmWkLroKjaKQ2vDe 9yZGVyLWNv kMvitCNnBjDnb2fcRYOuGR fxRK7caQqlB7UtyUZ3DCPt q2x7Ip09O30yY5UhgLR+PG LfoLM6hVZ7 sN1fVwUbEqR1OYdmM803Oi DasWJyGhcxp5gpb5gomBi5 HkE8ZIZkxwCunXepJSD9m6 FjBf43C73n IHdpZHRoPSIxNSUiIHZhbG zdij5xjD9wHn7+PGNvbCB3 oAQ5oR2zXhSuIyC8WJavW5 49InRvcCIv Gnkzm9vbd2hzrRz1GxKeZD FdceDvyOqpCAT1f5DqOe55 P7PkwGyhx2EeAse7tj31kT Rsq7Z7eAY9 N6NpJONikggfbBYhkAtgAW 8xQQAtvajeCSYnmK1uTHCd B8r4DdCsGdH7NEtzC3Ynwq F4ZAIurVHy ANxnOEK3F01mc1L7NDLhKY FwOBX1pWP8cZ9tsFrrkdoi bGVmdDsgdmVydGljYWwtYW peJ906HWGc nZlvXVFicG9gJALwcKGyqR ldRP6jGQVbkgfjUhfKRGec IEpBREEgTTwvdGQ+PHRkIH G1nBarAIzp AZTsjN6xMFIjD5y1OrZoCg B0KXkdR8JsWAPbwqeuTz58 nS9nSvVbAgI6OCslB6Ngwh H4FHOwdDXj EFkrKCA3E22nu0G6GGTpXW CfGWF9tBA9xR2neWdtceag bGVmdDsgdmVydGljYWwtYW slC110LKSy tPpiKzY4HtZ8CcK9EJP5S9 AaGhy5FNFbcDgiQK9zsFXt HGjmVx5eyTuyiIypUG5zCZ BpbjtwYWRk pJ6mACBtxROysZqtJG9uCQ Sjxcbbc548MvUgOLR5AZUa vFBgJ4IegW5aJjNgSXTaEQ XfS5KibJBn SEqdH690QWhnCkD5MIUccc BzX8GtVDNtlZavMsO9v8Y3 Un3vKFHVWHDybchwgSW+PH GnBYR2xCav YTjcBTPphI9bCGLqI4h0Zq QeEjJ0NKubT9CtJEDvzdst Zm64mC6yOtIgQqP4DZxrO5 ZrtaO6UEDl rGGhUUpkLKX3H30yy9W5LE FnHESjIFU9kMT8tW4fdMjo bjogbGVmdDsgdmVydGljYW ewYVphA779 IHRvcDsnPkZlbWFsZTwvdG Q+MMEzLOL3cUyjRRpdKCHe hP4lBBTjN3l4BtVkKqU7BO otP3FgURJw pawcMf98mE9nJrVzTrU4JH pkV2DvhkJ5UHGucOQvTYbm XRU7V13da1M0KUPbLDOcNA R6pJO2lV4n bGlnbjogbGVmdDsgdmVydG jmJWwmUUhxY943VYHlnHda SlMbCWPyGB9ysBrurAU+PC 99va72Q5Is RjgsJri0PXQuWNG2vDU9jL 6kAMBcAYeqi8U2oFA4A0Dj ppIjjm3vs3bhMKLrMHcyS5 6kdHMxj5J9 BXQxdQV9CGMxuIjkHuQunK 93Oyc+JWBvcCioh5PkHhzh o3tbb4ztxTu8SqFgCGVfcs FsaWduPSJ0 v7VqKu98K20wVDyrYPXoMY XaXNOxZZAugPzdmc7kkA6v Ii8+DPVcnPF2hRE7xC2vLx LmSzB4QMeo K998EpManVVtIkpmj2afi7 nfaOh7EdLkKGKcwkSoqJct HVP0n2LxKh94E3FkoQwew6 YiEhs1qs54 qLAib7E2lUE7M8PqJBBwpc jqlNFspKsaZY8jGZEtouws DDDydJ4eGKOhQ0o6NwZxRo S3OHklY7Zs kiG6MGCeqKHiWZGfeYUOrH 4dnodeu4drnylvLeApNSQw JEr2LTu2JJEvqZvjTcNpFR N6EsA1ZXM1 rPRbkO1yqApepmetaH7tAm c+QJo8y6cyzDZtGK5deAH6 QS97HP08pWWmn0V1pKH5E7 BhZGRpbmct pvceoEW6MCOlNLFfxP81Gy 4tcPcnBf9xRBLrZPM9JNSa oQLjJ2PeeJ9nBzOeQJCfDB NmY3AbxPPq VMogG329CIytEpS6EROdcy CdH4WmWXFpgRydNtY6d0D1 Bf3OAG36GY53NF43xHNiw2 O0dXR6M4Uh BAVdfdmuckoweIM5WPJnHM EnvN86Mo9cdRirXo6zOZUf YJW4QSAqyUWvD8LvwO5tKx AjMDAwMDAw N5NpxZHkSLadT172JLgcEs S6QTLervOhY8GfDFMdkIre VoS2k4F2Wq9DAz06NE56AJ 46zGVzc4T9 qSC3R9IcJBInmqluoawyvW P9NRZzHOBnhR42Iy6ulAkw Bh0eABAdWIF9EYAfmBOsC8 FinF7sKdJn KHMlLGCoN9SnoORdVFvtL3 70YMjwYjG6FYWifiGnA9Br ZBGudUhhDuJ5f1J0Wc7KLY vcrqb8Y3Vd PjwvdHI+CT09XQAkTN95aX HtoQVpg6yjyLh0UuIlAVGn LXB6hOzwTFwsh5MvMNDoC5 9vlSLiu1K8 IGNv (more content not included)... [facility] Consent for Treatmenton Consent for Treatment [id number] [id number] Normal [facility] Discharge Instructionson Discharge Instructions [id number] Normal [facility] ED Clinical Summaryon 2021 ED Clinical Summary [address] [address] ED Clinical Summary Person Information Name: LEENA INTERIANO [facility] Age: 32 Years : 1990 Sex: Female Language: Sign Language PCP: BENTLEY LUCERO CNP Marital Status: Phone: [phone] Visit Id: Visit Reason: Eye drainage; Nasal [...] 06/18/2022 13:28:16 06/18/2022 13:28:16 06/18/2022 13:28:16 ADDRESS: [address] [place] [id number] PHYS DOC NOTES: MEDICAL INFORMATION: Prescriptions Given: New Medications [facility] 1986, [address] [place], [place] [id number], [phone] loratadine-pseudoephed rine (loratadine-pseudoephe drine 5 mg-120 mg [...] Address: When: BENTLEY LUCERO [address] [address] [employer] In 3 days 06/21/2022 DIAGNOSIS: Upper respiratory infection Normal [facility] ED Note-Physicianon 06-18-20 ED Note-Physician Basic [...] for 10 day(s), 20 tab(s), Refill(s) 0, [facility] 1985, 165, cm, 06/18/22 12:19:00 EDT, Height/Length Dosing, 86, kg, 06/18/22 12:19:00 EDT, Weight Dosing Rapid COVID Antigen [place] Disposition Plan Patient Discharge Condition Disposition: Discharged home Condition: Improved and stable Counseled: Patient and/or family were counseled to workup, results, treatment plan and follow-up recommendations Discharge Prescription List Prescriptions loratadine-pseudoephed rine 5 mg-120 mg ER Tab, 1 tab(s), Oral, q12hr Follow-up With When Contact Information BENTLEY LUCERO In 3 days 06/21/2022 EDT [address] [place] [address]- Business (1) Additional Instructions: Patient Education Upper Respiratory Infection, Adult Attestation Patient seen and evaluated by the physician family and divorce legal assistant. Attending physician was present in the emergency department and supervised care. This visit was performed by both the physician and an APC. I performed all aspects of the MDM as documented. This report was transcribed using voice recognition software. Every effort was made to ensure accuracy, however, inadvertently computerized senior policy analyst mistakes may be present. Appropriate healthcare PPE [...] (06/18/22 12:26 (more content not included)... [facility] Comment on above: Result Comment: Elec [...] to help relieve symptoms, such as: ? Nhfw-jyf-myjfseb cold medicines. ? Cough suppressants. Coughing is [...] other clear broths. General instructions ? Take vlft-hoy-dutiwmm and prescription medicines only as told by [...] and water are not available, use hand video systems engineer. ? Avoid touching your mouth, face, eyes, [...] common infecti (more content not included)... [facility] ED Patient Summaryon 022 ED Patient Summary [place] [id number] Patient Discharge Instructions Person Information Name: LEENA INTERIANO Age: 32 Years Arrival Date: 06/18/2022 11:56:54 Discharge Diagnosis: Upper respiratory infection Primary Care Physician: BENTLEY LUCERO CNP Provider Information Primary Provider: Connor Castellanos DO [employer] Winder:Grant Jacob PA-C The exam and treatment you received in the Emergency Department were for an urgent problem and are not intended as complete care. It is important that you follow up with a doctor, nurse practitioner, or physician?s family and divorce legal assistant for ongoing care. If your symptoms [...] Instructions: With: Address: When: BENTLEY LUCERO [address] [place] [address] [facility] (1) In 3 days 06/21/2022 In the event that this physician does not participate in your insurance network, please consult with your insurance company to find a nearby participating provider. Patient Education Materials: Upper Respiratory Infection, Adult A MESSAGE TO ALL PATIENTS REGARDING OPIOIDS PRESCRIPTION OPIOIDS: WHAT YOU NEED TO KNOW Prescription opioids can be used to help relieve cavyzids-mu-pbgfoc pain and are often prescribed following a [...] be struggling with addiction, tell your health personal care attendant and ask for guidance or call SAM[employer]?S National Helpline at [phone]-HELP. v [facility] (more content not included)... [facility] MICRO OTHER TESTSOrdered By: Olivia Garza on 06-18-2022 Rapid COV Int NEG Ctl Pass (06/18/22 12:26 PM) Normal [facility] Rapid COV Int POS Ctl Pass (06/18/22 12:26 PM) Normal [facility] [place] [facility] SARS-CoV+SARS-CoV-2 (COVID-19) Ag IA.rapid Ql (Resp) Not Detected (06/18/22 12:26 PM) Normal Not Detected [facility] Rapid COVID Antigen (FT)on 06-18-2022 Rapid COV Int NEG Ctl Pass Normal [facility] Comment on above: Performed By: #### 2 [id number] ####[facility] [address] [place] [address] Rapid COV Int POS Ctl Pass Normal [facility] Comment on above: Performed By: #### 2 [id number] ####[address] [address] SARS-CoV+SARS-CoV-2 (COVID-19) Ag IA.rapid Ql (Resp) Not detected Normal Not Detected [facility] Comment on above: Result Comment: [employer]? System for Rapid Detection of SARS-CoV-2 is [...] or revoked sooner. Performed By: #### 2 [id number] ####[place] [address] ADMITTED TO INTENSIVE CARE UNIT FOR CONDITION OF INTEREST:FIND:PT: NO Normal [facility] Comment on above: Performed By: #### 2 [id number] ####[place] [address] EMPLOYED IN A HEALTHCARE SETTING:FIND:PT: NO [facility] Comment on above: Performed By: #### 2 [id number] ####[place] [address] FIRST TEST FOR CONDITION OF INTEREST:FIND:PT: Unknown Normal [facility] Comment on above: Performed By: #### 2 [id number] ####[place] [address] HAS SYMPTOMS RELATED TO CONDITION OF INTEREST:FIND:PT: YES Normal [facility] Comment on above: Performed By: #### 2 [id number] ####[place] [address] HOSPITALIZED FOR CONDITION OF INTEREST:FIND:PT: Unknown [facility] Comment on above: Performed By: #### 2 [id number] ####[place] [address] STATUS:FIND:PT: NO [facility] Comment on above: Performed By: #### 2 [id number] ####[place] [address] [place] [address] RESIDES IN A CONGREGATE CARE SETTING:FIND:PT: NO Normal [facility] Comment on above: Performed By: #### 2 [id number] ####[facility] [place] [address] Coding Summary.on 06-02-2022 Coding Summary. CD:[id number] Gh 0bWw+PGhlYWQ+KO2GKEPoU 50xyRKdkL7BB3xDBS8CLWX KHWYRTK5ZYI8okLV0AQcgE 2VybiAv LlmnxKYaWY79BWp1TCF0yK baSFsaeT7lnGMrR7o3DsTj ZH49uW78MByeMEKtYfR0Jd ZpbjsgbWFy M8bfJnMinDRoVns+PHRhYm xlIHdpZHRoPScxMDAlJyBz bHtfCQ7rDt0xEBKpAIAtdI xhcHNlOiBj p6fhDDEiXIhfVC7bzSgcJ8 JehKG5ZTPzl0p7Og83aXV+ WEVzRTS6xFfjIWpoq573Yt Cof0qrFLC0 mNCaMAvyBLR5G47nt2T7KM PnPJTeGLJ1lUF6qT9ziNmg sxxyO9SwwJHvTaA4NAD6jZ QvmJ3uvMxi tsmktK5bLkw+C14KHO8KJK LEJD7IPep5U9GaMmhktQZ+ UO82TDNuPW69cZHsrFQaj3 czzBs2EwFw ORIsPEN1vJyhHNtvn4GyVB FuU55wgCSbw1T1RJAyePkk pSYkHfYqdRY9hC4dNYrpol nvx1qcsgsj Zkwif8tfdl56tU43Z52hSG gyXMKcVYX4QIZrLYKlvCbm ue7laX3zUs7+PDtbi8uck0 birLz2JnVb VNCteeJinTtxLWV3h7QcJr 43R9MmgEbcb5WyJmz7af02 lYAwn4P4yBP9ZLrjWGIjhW 8tMNgiEnD5 EMAeOyYmzI60dKYeYYtkZt 2bkVlykJvbDB3dYQHnwdro UHMnrW5yBRSleCCacGnkBR 4wNTBpbjtm z726BjEmWSN4RGQedRMyQ2 TtmV3aGyFlYECpIPGnZ9Fc bQCtALbuD553OObsZrN2DZ GdocFhW0Nr FNPuhCgdJtR9d5R5Hg8Qb0 SubrlhXMY2ZXlxNSN8VcI1 DdOdDtK8A5HdJts3OGYglG eqMG3cX4Ig NMYohdqcuencwIV7WDMjYH NusH86jANeQCbiGo8pa3N1 p931ANIoUKTxrX49Js5goU ogMTBwdCBU iS2nqiote0fjywpeOjLuKQ ZrSQg0ZAn5DFSxgAnbGuCp HBX4MkD2UOQ2pLCiaM9exF hjmltndU8g Oyc+F16luW7lICJ9MOE2aw suVMPdylXfUF05KE61D7Aa PjwvdGFibGU+PGRpdiBzdH nhIG5jWyNp h2pli6YeYDjzU9FcFMSeDP njRmp7PRKwXZZ0rAJ1jX1p QZCxHMhrt8P3zNG4M6Egsk Fllr8ii3wg OVAlQKzyQ61hlPGnq8Q3JS HcyAW3ECXpsUmpVeEgsB81 Oyc+WUUyqPfcp2PcHpwby7 ekz1aslYg5 GwWiRRNfooLrxNlwFEU9j1 HfCi09W75oIWnoJNEhIPJt TTJgWJSbxNqjzi3wlT3mJr 8+PGNvbCB3 tLG1fU3kQHSxVzX4QEnxV4 29MdBafHSkKxomo4wcv3wu vMd0LxCeODDebpEegThnNA D0e0EmRi96 T53jSHhcEZJoXHAnKDViYK MhuEdozq4tjX1cDw1+PC9j r1ovpm09rC67iNR+PHRkIH F0aUboPDrt JVGuvM1hRGdjElM1WHKmPo ZafW15tATgBPcdFq9djGai oThoUQ8aEQQjyigpm152Bm Fdq0uoJPNz uBGdFVesVAB1B49la9R9GQ TgCWWzIZU3gTK6mY3btGdj bjogbGVmdDsgdmVydGljYW fjUDwvR208 IHRvcDsnPlBhdGllbnQgTm ElJKb9S6WjNox6XHApoRqv FU3ndMDoZIcmFd6jyZqcxK okUQ7dUVJg qcmws459YlRwt5fyIAHhzD IoHGkrECK6X69kk3A4AXBe LKBkVUK3oBZ1gA9oqBeyrb ogbGVmdDsg glTojSjgUPfbDJkzU833ZZ RvcDsnPkJpcnRoIERhdGU6 EI15EX70nUIpr7M1sNG9R5 BhZGRpbmct klpyfIT3ZFWkHOLpuP63Ve 4ydJnbPh9rUPZwZHQ3YWFl aDDjZ4HgxE9lWiKqYDLgCM YoI1TzsADm WCpiA612DOmmXeA0VCIubg YqL8FqDTJpgJeiVeQ2q2C0 Cm1SP8D3PT07AG98iABuw6 O3mUP6H2Dr ERDylkympbpjcVD4RONfGS TamC78Wq1spIfnGu9uSXKc BNF6USGppHOgR0VzvO1kLp AjMDAwMDAw J4NrwERzOZiaE372NAuoQi T4BPYpbdTiG4YjIWCqrXdu HsS2j1J3Vu6GVOo8FA72NX 24mVYbe7C8 iTM6S5NmRIHevxzfnhmeyP V7ZSXcTPKavU06Ge5zpPti Qs3cUISvOPV0JYBjpMNzA7 CjuY9bFjYv DWQfYSQjA4HotJJyPXpaB6 24FHnmZhF7MNDsepHhU3Up IOYmdBfgKmD3m7F4Yp1ERD CrXV19EXE9 wOV7LV88CL32M0VoRqvmfG FibGU+PHRhYmxlIHdpZHRo PPzlLZYqCkCskVqxNZ7uHm 9yZGVyLWNv lDoczOBpDfFoc4tpFAQeYC awBE1zkNbvN6IioSL1HXHx u6s1Tg29Q63oN3KnoFY+PG JbyNX3zIH0 jU7eXsNnAiG0ZJjcU193Gr NplGExApszg2tkb3dpkRz1 GlH3CHElbmQcsQkaYGX3d2 HxJi41J55w IHdpZHRoPSIxNSUiIHZhbG gtwt4raW6bPz1+PGNvbCB3 dMI6lF7zKwJaYbA9UQgkQ4 49InRvcCIv Gardn3bts6hvnMa6HhOmQV UmgyZeeNbhWVZ5a8FnHp98 W4ItgLtuf4ZpErt3hw52xS Kpq4H0xVN8 M7TtJIIvktsglJJlzQmjRM 2nTWAlwaryNDGcwF2yZKMa L9j4DgCgKyQ3KJcvQ7Umoy R5OEQxzZGg VJkfTUG1R06fu0S4HBMyGM RwISA9qHZ6nF1zfUzsoqyn bGVmdDsgdmVydGljYWwtYW qiE600QEPc fBogTBCabG2uCOVexJMyhH wnOM3hSJLzuzqzIasKOOqv IEpBREEgTTwvdGQ+PHRkIH R3vIobGZly NOOofG4zTEYrA6b3VuIdDc D2OJkcT8QcJFVqksmcIj63 oU4vMoAjSyP3JDqmY9Ivof D8RVDovZQy YThbMQT4W96ug8H6NZQxIZ HfCVI6cBM8mQ6jiWspghum bGVmdDsgdmVydGljYWwtYW ieV205PXUm oPmkZqF0YdR5JxO9EQI6T2 SlXzr1PBXreLvhXM5ciAZh CSrgBv5sjNzwxShkZW6tEG BpbjtwYWRk cC1kXGAyeXWdqAsbSK0eBQ Nhluimj372AjSuRRH8UIJy gJOsX3GohV1oNlZzEKYlZP AwY4ZbcVQh EOszP846IFkdDdL0KXXhzg SaV9UbONBnrRqbVoI0f2G5 Xl9wRBNLZXEttbphxEZ+PH KuLPU2bZtf IFooNGLrtG9pKCRgJ4p9Ss QzXoF5JLpbI7GcCBMnkmjz Pq50dG4iTkJbZnT9OUewO5 QecqJ3PYZl aLVkRWlgEWC7G52tb9X0YZ OtAUYvJVK8sEM1dB4szHmz bjogbGVmdDsgdmVydGljYW tcSRoqL046 IHRvcDsnPkZlbWFsZTwvdG Q+JTOgSWL8fNnsZPmzMBMy sW9tRVRbZ0q7FaViBkS3OW ilP4BiLFSf bgoqEu78wD4fVvTbHuL4ZG ssS8IqasF6YBZefTFcQGrr STS0I40xl4R0NCYaWSImGS B3qSC4qV3i bGlnbjogbGVmdDsgdmVydG obQRfrLStyH911UAQjgLgp ByQiYLJrBM1llDzadFN+PC 29ac80N3Fl RobuLgz2OMExRYM8rJT4nY 2mEHSeEOuzk2A6cRO4V5Ed utVltl6xb2hoALLwJYacL8 2xlQHem9K4 UKRdxPI6ICGbsIxgJpLxoW 93Oyc+JKJtqBpbp6DrAvow g6nzi5otqZf8SdBfKYAlxy FsaWduPSJ0 e2LeLm72M82fDVihUPNsXA JuHTAnAVEtxDwtdr8ucI0b Ii8+TNAlhDO6wKI1jY1oQj ZqAvI3GRuf W338WxXfoCGyShxfx6pjs9 psiCy8TiQjVCAegrSomGon KSX6a1FkLp86N8RxwTzis2 LtExl5zc29 bDPoo8H2gAX3V7WdNJAwuo ycbEEojFlzOE0cAQTqdlkb MAImiW1mSUQlG5z0SfMgPe V7EEfoN8Lm wlW6YFAmjWSaNILegZGGuS 6mhwqwu0wppttoUgRtXMNx TCx9BPn8CYCjoHctVlZpEE Z3IpR6PUP4 lOYilA7dgFfeeyhbsP0mRz c+BNw5s0rcsXQnUH2rmXG5 GS86NP73dAMxu1E3zTK8F6 BhZGRpbmct nebskDI0YIUtDKLvnC91Fh 0byKqrYw0mXJAiWUH1XOSl vDBxJ8ZsqN9vUsQrGYWvUS QkL5UzpXQh NXytR174EBywJnM4XXRoxo WgV5AnJBSzgCafAxB1o6W5 Gp7DIO89QA21VC21yYLrf9 R4sNE7W9Dm RAKegbhzlbjhmPO5QVBdFL UoaM14Iq4zjYucMy1gKNHl PQR1JXAjgAGbA4EgnQ0pSf AjMDAwMDAw F4SziEFoWLaiA484WSsuZf K7FMJczrDcG4YkBNSucIph XnK4c7P6Cm4LTq36QE09WQ 14oIMux8X5 hRP5H1WoEZFisvwfydqxdR U4JAMyPJRwrD15Zf2xlPhl Tt6mNORnPLK5YXEuaUXkA8 DmqW9qBwZu VXHxAKGkD3QwmLQhVUxdB3 07QIcvSrX6CZNnfpViL6Xb NUMegLuvNzV8z8N1Tu0XOH sphmu6L7Bs PjwvdHI+YP32VMYnWG26tC QqwTCow9tkdIu5BmAnXUDm AIF2fRedNAqfz0IuACFjQ0 1djEVpj8V5 IGNv (more content not included)... [facility] Consent for Treatmenton 05-15 Consent for Treatment [id number]#[id number] 0CD:127 [facility] Discharge Instructionson Discharge Instructions [id number]#1. 00CD:127 [facility] ED Clinical Summaryon 2021 ED Clinical Summary [place] [id number] ED Clinical Summary Person Information Name: LEENA INTERIANO [facility] Age: 32 Years : 1990 Sex: Female Language: Sign Language PCP: BENTLEY LUCERO CNP Marital Status: Phone: [phone] Visit Id: Visit Reason: Medical screening exam; [...] 05/28/2022 11:50:13 05/28/2022 11:50:13 05/28/2022 11:50:13 ADDRESS: [address] [place] [address] [facility] [id number] PHYS DOC NOTES: MEDICAL INFORMATION: Prescriptions Given: New Medications [facility], [address] [place], [place] [id number], [phone] cyclobenzaprine (cyclobenzaprine 10 mg Tab) 1 Tablets [...] up: With: Address: When: BENTLEY ENGLISH [address] [place] [place] [id number] [facility] ([employer] In 3 days 05/31/2022 Comments: Call the [...] left-sided sciatica; Headache; Other chronic pain [facility] ED Note-Physicianon 05-28-20 ED Note-Physician Basic [...] back pain. She is deaf. She requires machine design engineer. Med student who accompanies me is fluent in sign language. Patient is comfortable using him as anesthesia tech. No indication for imaging of a acute [...] pain, # 15 tab(s), Refills(s) 0, [facility], 165, cm, 05/28/22 10:56:00 EDT, Height/Length Dosing, 86, kg, 05/28/22 10:56:00 EDT, Weight Dosing ketorolac, 30 mg = 1 mL, Injection, IntraMuscular, Once, Stop date 05/28/22 11:29:00 EDT, STAT, Start date 05/28/22 11:29:00 EDT, 05/28/22 11:29:00 EDT methylPREDNISolone, = 1 packet(s), Oral, As Directed, as directed on package labeling, X 6 day(s), # 21 tab(s), Refills(s) 0, Pharmacy: [facility], 165, cm, 05/28/22 10:56:00 EDT, Height/Length Dosing, 86, kg, 05/28/22 10:56:00 EDT, Weight Dosing naproxen, 500 mg = 1 tab(s), Oral, BID, PRN for pain, # 20 tab(s), Refills(s) 0, Pharmacy: [facility] 1985, 165, cm, 05/28/22 10:56:00 [...] mg= 1 (more content not included)... [facility] Comment on above: Result Comment: Elec [...] instructions at home: Managing pain ? Take xqqm-mkd-htclalv and prescription medicines only as told by [...] most common (more content not included)... [facility] ED Patient Summaryon 022 ED Patient Summary [address] [address] Patient Discharge Instructions Person Information Name: LEENA INTERIANO Age: 32 Years Arrival Date: 05/28/2022 10:43:04 Discharge Diagnosis: Chronic left-sided low back pain with left-sided sciatica; Headache; Other chronic pain Primary Care Physician: BENTLEY LUCERO CNP Provider Information Primary Provider: Connor Castellanos DO [facility] [employer] Winder:None The exam and treatment you received in the Emergency Department were for an urgent problem and are not intended as complete care. It is important that you follow up with a doctor, nurse practitioner, or physician?s family and divorce legal assistant for ongoing care. If your symptoms [...] With: Address: When: BENTLEY LUCERO [address] [place] [address] Business (1) In 3 days 05/31/2022 Comments: [...] opioids can be used to help relieve vwwqfraf-mz-yuxoim pain and are often prescribed following a [...] amounts or mo (more content not included)... [facility] Prescriptions/Work Noteson 0 05-28-2022 Prescriptions/Work Notes [id number]#1. 00CD:127 [facility] Consent for Treatmenton 04-14 Consent for Treatment [id number] [place] [id number]#1. 00CD:127 [facility] PT - Assessmentson PT - Assessments [id number]#1. 00CD:127 [facility] PT - Consentson 04-24-2022 PT - Consents [id number]. 04 [id number]#1. 00CD:127 [facility] PT - Home Exercise Programon 04-24-2022 PT - Home Exercise Program [id number]#1. 00CD:127 [facility] PT - Home Exercise Program [id number]#1. 00CD:127 [facility] PT - Otheron 04-24-2022 PT - Other [id number]. 04 [id number]#1. 00CD:127 [facility] Coding Summary.on 03-26-2022 Coding Summary. CD:180767DK:[id number] Gh 0bWw+PGhlYWQ+GR6PFXNvK 29okONowE4QE3uZAF1EHXP YAHGHQS3ZDB0uiCS7ILsmU 2VybiAv JikcuQXsKH01SFz8GMN4gN stONtixU2xmLDcJ2y7McGh EO54dP42ZAfgWJTmXuB3Ny ZpbjsgbWFy Q0bnEfActADzWlf+PHRhYm xlIHdpZHRoPScxMDAlJyBz yVlmQN8yHm7kZQGnXEGrmS xhcHNlOiBj l9ylEXQvKTvgIM8pjIpcE1 NulGM7IAGzx9j1Tc70iNT+ GJXnKMK1eJtjZCrkn409Cb Lra4sgSJI8 eOIgNYiqLMG5K66cj1A8NS VtTCZqOJD9gZL2rT7usUep nkzaU3FxpNGvImR5AIG9cM MunM2imIyk jrhclQ2pVed+O73XET2ASU SHXM6UAvx8I6RzAmwviJX+ GV58PIGuFQ10wDYyyJLkw0 sxiQo9TvGp VFJkZKV5yAxuSAfpn3PtAO YwE08ktMIsx5F7PDEmbDpb sWOrJsVttHJ1fR0rSXgzrp xxx4vatked Zmcci1pnns93sJ16O93xHI ieMKWcYRA8LLSjQYOnhLfm yp6qnT3pGv7+SQgvt6yji0 srrTb1JeEt DWLfnxYjuKmsHFS9w5BqAm 63V3XwwPkmh2SwLtw9ki88 tWOhm2K7yFZ8SVqyTTRaiF 8uIAumBuJ6 GGXpSvWwjF52fNVpTDwiJa 1fiDqjaJthCO7lTSNvhdbz XZDzbS9mFCSsvSNpoZveYC 4wNTBpbjtm r678CgTyHQG4YKNayYVdS8 PouV1kXfVgOBNvDCBhD0Fh hEUzDTdpJ906LCnnTfW9YP GfppUvV6Hk GCHfaQjgFxS8t1I7Nk2Fq8 GisbdoFUF2VQnhTOA7AtUp MhIzWkW7T2ArLuo1JKRfbK mjCD8aY3Zs OJIrefsriuobiPF1NEWnRL XoxC39bKEoLFzaHc1un4B6 n483RMTcLBOluV66Pz2quR ogMTBwdCBU eP6tdcjqi8phtjntOfXdLQ PmBSg4LQc2PARjfUpfUdGo RHR7CnK5GBL6eVWaqZ3pdS tosfkezJ2v Oyc+C20hoL0fFKC3NOS8sc tzTRWjgmNrRC87MR96I7Gw PjwvdGFibGU+PGRpdiBzdH amYY2oYxDt l8pcp0VrOUhtP5JqRXHmHR jiArh0OGGjNTL2cJM9dI7x HCPnKTtvv9I4fFB6F0Ypbp Bxjs8mz0fk FUAuVEeeZ30drHKvh3E7SS QaiJE0SIDzhUemJwCrsS76 Oyc+FMKtlDniy3TxEhoto3 vof1gdnJo8 PqTbHEScntJhaEqbRMS9m6 HiIz21K53zNGsrGBKhZLXu PTQrNTTcjIctgo1lpM6lEr 8+PGNvbCB3 cJT6iY6wCUVrFkW0DNmaW4 13GuObqDFwQojnp4pej7bm nKp1GyVdBIUsrjVveYwuXV Q8a4MdPt26 U71vPLrzORZwMVPkDACgAG LntMcmee7hoL8sBe8+PC9j t1lxqi22cG28bKK+PHRkIH N4xOspJJkr OPOydR1qOFlpUyI0KHNoNz IbyO57kJLfPRahUn1xiQjh zVojZZ0eFTTmtgmpy227Cy Mrb3iaMATj dOYuIZthIKL1E30cc7O2NZ UqXFScMGS9eHY6yE6psUlk bjogbGVmdDsgdmVydGljYW ywRHfdW119 IHRvcDsnPlBhdGllbnQgTm IlTBp7O8RjLok6TDMhhIvu LO0bsQPwNNenSu9zeWuucF wgIO1lRFEy xpwhw109GkJlp5sdXLStmL OzQZvcFJZ0M49bf3D0HNBi XXQxBPF6jZU0mA1lkDoqcz ogbGVmdDsg kbQloUfuEGtbQMqeV367XR RvcDsnPkJpcnRoIERhdGU6 PT79LE84mDSru6N4sHW0Y5 BhZGRpbmct btkbbBM0CCSiPKDjrY99Xc 9alXwfFc3gCDUpKUP0ZSCw oCMuD1QgsH3mEzOxZPWjHM FbT6JnzUMu YJdlZ874FUmyJkL6QSFlia NaP0HpQRLdqGugQeI1b4R7 Yb1VR2B8IE12OL17yEPmy3 V1xAV5Y4Ql MVBkhnlfcrtnhJH7IAQwWL VyjG72Fj1zgPygWd1aPXHx DMC3ZCLqsXFbR5BiaQ5aHw AjMDAwMDAw X1DonMAmNCzzJ381IEzhMf L8HFWsexZdC1LeVBAsaDlj OhK6c5W9Fo2RQCv0UG71CM 79vOJog3V8 qTX7B6ZeQZKsatubkfakmM O8DXMqTWRulT40Jc8kvRwk Ji7gGKHeQYF6INCozTMxL1 WfkO0cQdEt REItBCQtU0GolZStPZvmX8 22IJyjXwW2OSZwkoBtQ3Ww CIHqvGdtBzX9w2W6Om9DVD WyCQ54OHC0 qKT1OI02ZW20U8ClIvvgbK FibGU+PHRhYmxlIHdpZHRo FYgnAGVfYvTwhQsaSD5fPi 9yZGVyLWNv vBiykSCeDsPyf3rgACErJC xsTG1rdRsxK1SgwMV6EUIr s2h6Bj07G93eP3UizSB+PG PcsTW3hCS6 iD3wKqTcQgF7ULorJ264Bs HylDDmOvyax0zom2kbpEf8 NvH9CEUhzsHqnCkrSGE3y3 YbXw05M48x IHdpZHRoPSIxNSUiIHZhbG qjck3rqA9nDb8+PGNvbCB3 wMS7hT0aRgPbNnA4SLuoD9 49InRvcCIv Jovke5erc7fddCi3RoEzHJ HtleGkkYalIWC2h9WvKi30 O5SdkGzxx6TtLmb1fc86rH Rsq6B4hNW0 A5UmCXNdjveowDWdtNjmDW 2zBFGqtguhNLEbpX7jEQJt J3x2YkXhNnR0NXyuJ3Ehkk H2OQTesOOe SXhcVBC1O82nx2S3UMVmOG RzWHA9wDD8zB4hbGxrdefl bGVmdDsgdmVydGljYWwtYW phS496YFGs dVvtUWFooZ1iPTWjtFXzlT trAX7fEYQirzanPcrPVBpt IEpBREEgTTwvdGQ+PHRkIH U2sAnoGOad VUKydH4yPIIhT5b6QuUhUj V5PDhbP6IkGNVfeeggYu58 xM3iAgYzHlH1ZLvyJ5Dnod G5PWAkuTLx LMxzCXL2F91kd7K2KXBhSE RkBQJ0qMZ6rM2esErbnlnp bGVmdDsgdmVydGljYWwtYW wzU398UMEg bSitPgW4AfD3NnZ3KWK6B4 MxOgw1BAYkjDwtTE0zcSYk ZHlsQu3daEzolFacFD0vUZ BpbjtwYWRk xE0fVEDwoONwyNmfZW6tPO Lmpzrgl724EoYjDDK4NSFv oDGdR2PrsV6rGlYgDWBzZZ EyK3HhcMUr HJkzN126OKoxMeF1NYNuzu HpK9XmQSGjoOayIoO1u0X5 Om3xWMXUIQZtqcjcfVP+PH LbDGV6zShf GXdbVLSqxJ3fOABnN7j8Tk VzJvA3ODymU2QnMGDlupkx Zl38iI3mGbEdSdQ0XXbvD6 TioaF9QXMy tNPrITuqOTP2S00oy9C8QZ KeOMGbNKO1iCH4jL6xkKsy bjogbGVmdDsgdmVydGljYW uqSPfuK282 IHRvcDsnPkZlbWFsZTwvdG Q+EWGpFNQ2vAhkAPhoABZs rT2fHUKnD6j0CbQzEfW2XE utV7LxFCOd hfxhRa34lM6xIpNrLuF0UB znW0QuuwQ7CNXvxWKxUKjr DUO5D80fr4P7OTRsTSFzXO I5jAA4eR6d bGlnbjogbGVmdDsgdmVydG aaOGqiQHevR344WTAniDlq EsLlY4QprcmyRoiacPY+PC 14zp57F9Wq QyqrCox5LXFxVKG4mKU2wC 6mBXEpUDbaq1D7jYZ2P3Vl swLfly5ep8pkXKCoZMdqD6 9kfYGwd6T1 NLPprRS1VNDasPivLmHhjC 93Oyc+QVSxxRwwn4TpOfff u2qke9zawPm4MkApYGZvkz FsaWduPSJ0 n3ZxCf35B36bKXtcBVDmBP MiPOAlHMVbbJftft2gaJ3w Ii8+QXAbpUJ5qNC0gB5zDk QwEeA4MCvz S952YgOgaVEoEvufr0voh9 zsnAq9IkSeYUAqgbLnqTkf PTG2a7MiLl18R6OadYwjz5 HiKbv5lh46 eATgx8O9gKT6T6HdFQLmwi chhEQegMuzCQ7sACLxubdh QBTaeC6mHYVlT0g0TbErWc N9XFyeU8Fr ubB4QOLqzYBhEQQvrSBSrJ 2fmdmww3hxgckuGcOdAIAo TBw6GOh2CYSxrYvyRpJvWV C3FpL2EVG1 qSUmnH2dmTvuagdbkI8hGb c+RXg8j8pfnXNoEI0ghFU5 SO98AL94nTCfk7N1mFY4D1 BhZGRpbmct vibfxGV9NKJqFNMraQ96Tk 9qiFjeWt9zMMMbSKQ8JDLw sJRvC4HhyQ1jQjBcNMJiLI IpJ1AzdDNa BSvpX442XXitQnI3XECtov UkT6OvUKLexUsfUgR6h3X1 Nc4BKE75KR11AW18iWHej2 L4xDQ9L4Rv CTNepxjlfyqiuHP1NFBsPK UzlA20Sv4kjYuoEp1yLZDn IVL7APPkhJBlR3CmhB8aTg AjMDAwMDAw Q3OdpPPbQMyzI967JFnrZn V6AHFcdeQnU6LoNWAfoFue AyT6a5F8Va1FSr77RJ80EW 85lPIes0Z4 qNG3S8PbPVQafpxvgghbmH N7YPLfYMNeaF65Vf5vhKrz Jr3bYOJdIDF7AQRzmIQqY8 AdsM0mNzKz BOTyAPYuY4KdzKDkMBasG2 99JSziPyE7HQZeodGjF0Ho KNXddVdoJwI5f0Y4Nb4DCQ urlnl0M6Vv PjwvdHI+DY01DWFsJS92oO ZvnLGmv8gxfAh0SaNsFWFt KGS9dNlvAUsas1KgPAJmZ9 6fmYXuu4V7 IGNv (more content not included)... [facility] Outside Recordson 03-14-2022 Outside Records 149.45.122. 05 [id number]#1. 00CD:127 [facility] PT - Orderson 03-14-2022 PT - Orders 149.45.122. 05 [id number]#1. 00CD:127 [facility] Coding Summary.on 02-25-2022 Coding Summary. CD:[id number]:[id number] Gh 0bWw+PGhlYWQ+WL0IUEPmZ 51zkCPnkB7TS5oESA3LVEZ QGTKGIQ1EEJ3fuIG8IQtyX 2VybiAv CfnmfGDlNA12EPg6WYD9gQ ckTCoaiY3cqBLvG2z3XtOa PX70aU34RPevRVNeThI3Uo ZpbjsgbWFy T3drOhQnaEEbWlx+PHRhYm xlIHdpZHRoPScxMDAlJyBz kKgcSR3mKi5pVFBpPWRiaY xhcHNlOiBj p2jsQIItJRueGU4maVheM6 HqgSO5HCWeb9p6Ec53fPZ+ PDZbBEP1uAmbLIgvh232Jp Ojg5ebLQL0 eDHxHZxcOKI7M59ab0V0JQ RfRSFvZUC2sWF7pI1qvKoe lsubX5PkiXUpAbZ3HHP9lP DilB7lvWaw eznwdD9wKuc+Q74WQJ0THB LJBX2BWfv4V4YpExojhHW+ JJ81IRUwMY88pEMuzCXec3 ongBo8TuHj WELmCDJ8mYlgZXgth1GrUO JdD31chFQge5T5PJSvcGiv bNZfKoGqzDE8aG0aCMcljj gqh1behofi Ttgiu8edia49yX52D62jGP mpPAOfEDQ5HCBtUKOsaCes hq8tvQ8vNn0+ETeje1lci0 gnmSr6CgKj UZWfyyKgdUrsVPP3d8LuMa 57P7IvoGfzm1XgQsq5yn89 qEZek3A8oHW1VSprSWWvcS 1gMYgtEsB8 LCRkLhBbwZ58uGTwPSajIg 5upKqpyBrtQJ0bYMZhmept LZSxcR7xCSBalNQqyEskQV 4wNTBpbjtm f103LoShSRS9BMBjzTMrG3 BgeS9xMsJeOEFnKARtX1Yg kOZdXVqnR749UNtnYmP6RN KjsiWuJ6Or KKXpgPcsDmQ9h0V4Ro9As1 KyudnfHFS4ILyzXZK7RaX2 EjXlXxG1C1HpGgm1WVQnsH nhFW4fK2Yk JTQxyyqxnvieyKJ5OLTcDN PulP36zWCeSMahPt2qn5A9 n929ZXXrASRiiJ32Cb3cuA ogMTBwdCBU wC6sdajgs7ansjcpEnMoFQ WbPVi8AVj6OBUpsLpxCgJg OTG0CzH5XBD1vANjaG0ybQ zeqgyikT7b Oyc+P65puH4yYLK2QWK8ed qzXTWrpxGdWH26ON61U1Ft PjwvdGFibGU+PGRpdiBzdH sePC1qSbGw n0hnv6ZoXAkzC4CeRIFhZS hlKrd5VKRtWZT3rGX0tG6d NYMgXScsn9K8qMF5P1Lfoo Egao0ga2wj OISiVTirN19keJDen5Q7XO MilEX7UPIntAtlLuFruR27 Oyc+LCNoyProo5SwHsfjm4 tbl7ybfKc6 HfLeOLVwuuUadJncADR6a7 TjBr92Z42yRIhmZTNyKCAo BPGkXLMfwUkrwr4vpN5rLz 8+PGNvbCB3 nRZ6qD3lQSXvLqW6DGomJ6 44JsEbcDMqJwacj2awy1gr gAo2GzAdMQSjszPxwYopNA L1v2ViJt01 B36eWTlcLVDqKZHgGFBwPX ZgoLvvtv7moD3aPs9+PC9j w3uiie35iC55xKM+PHRkIH I5lClfMMnv IAGcnP2qWRcbKaN0PNOvSj TvuF05pAYpJIgeGj1dbUph hRehZB4pELHxoqjgp802Cn Uyy9keEWRf pZCoLUtfWZO7V94bj7H1JD FnSSHjNVI4pBM3bB3ppKww bjogbGVmdDsgdmVydGljYW tuRVldN972 IHRvcDsnPlBhdGllbnQgTm JiGAw6K2OhUai6KBEfnXgm HX3suSXrRPuoMz9ulJpwlO koLW2rWXWu npnih513VlFpc2wmZAVyfG UuSTrzZYI9X46xc0Z3GGCq AXSwOMK3vJM6dR1toUfirj ogbGVmdDsg ndVsvEsxPLsvOBhqE408FT RvcDsnPkJpcnRoIERhdGU6 QY75GT65yBZge8A5tHE4M0 BhZGRpbmct qqreqRC0HAWaZGUzpZ70Ea 6lbJdzMm9oPBIrYRS3FVCk eUMvO4KrwR1iIoHnLNTrTU RjP4VpnUZg OHqiI357PYkvDbQ0HDCvke HwF8GwXOEspNvyHrK6l0S3 Pq2DM1C9EE69BT49yQZad4 A7wXL3V8Qs ANMqnsnioayzdMQ3XBVqWD XtcO53Qe4mmExzMt0bUDJf CGO5VFJagKUdC4LzyG1cSs AjMDAwMDAw W2DfcSWiBJfpQ188OWuxLg V0YOQsvkFlA1EqJWEleCxp IiC1m9T0Oe4YNNr6QB30MO 11sZOrx7M6 eVL7W4DpAVAqgsdmsrfcbT K0OBJkUUNosH75Fl8vjKsn Uk6eLPYyZFG2WMOyvYDkD7 GriN7vOtJo QGNoVAEoS3RooRWyPJgoV5 53INciIbQ1TMObhdFmO6Nm AHTooTkhQiP2n9V4Dv9RCZ ToYT05SMU9 lZC0NV11FB63L2VxFtpvyN FibGU+PHRhYmxlIHdpZHRo VQuvBMSoEcNqoUliUO9yQy 9yZGVyLWNv qXlwcQPxEkEbe5cmRLIfPC ocHW6kqMkeW6JvwLB8SXXp v4m7Fe49Z42mJ5LteYR+PG OlxGQ3tLV4 qO6pDvFuDpG8GBwtT352Kl VjxEPvGlemk7qsi5jzpZa9 JzC3BWZtqbXolZmuYKM5a2 UbTp06P18g IHdpZHRoPSIxNSUiIHZhbG rems7beI7eIa0+PGNvbCB3 iFR8oS4bYnJvLoM3AZhpB7 49InRvcCIv Nbrlb3oua3ieyWn2ZxFyEI FafmGqvSteFBH9g9ZaFb91 H4WnnSzln5OsYok8wf21gV Yfw6B5mEQ0 Q1HdASEzrntvxILvrApwVN 4lCFImexxlDSFvbP5iLFTl O6u7NnIeVdP8LFqdW2Jegp O0IEFcePIx GUgqTCV9L40eq9W9HRXkRF FjVOD0rLX3nI5ftGxnsbxl bGVmdDsgdmVydGljYWwtYW vzI672DTUp qQqeUEBtmN6rALAigGMijG wuWZ3aZQXzkxtyXnmNMHnw IEpBREEgTTwvdGQ+PHRkIH C4dSdiLKgf TVTzbX7yTEZyH0o8HePgFt F1ZOqnT7ZzXUByboffLe60 qB6yDoPmWcQ0GVycH6Cjqq N6EFTxlQCv SAghDAU7N95zj2G9FFVpBN SxWFQ6aDN9zS8fuDyakmbz bGVmdDsgdmVydGljYWwtYW zwU713HXOj iQjgPsH1HxA8PlJ7AFW6N5 PnPae0GUTyfNjtWX3biEMf LEsnGn3uyKqitOfeHN3aUJ BpbjtwYWRk cR1hCCRbxZHgiOweSV2yDA Noznrjc087JdQwQGY3LQUv eUBtW3PrtV0pEaImLIJxHX QoQ9LtjYAg MHwyO802QBwkRdQ7KXUtwv TvA7DlTWLmeZdvJuR2t3Y8 Qb5sBSJNVLOuuqkeyGR+PH QyNIZ0jDqt JGnoQKZtzK9gTKTrR5c5Gh NeAtP7AJovG6LmZDHogarr Bi10qH9aNkCcSkN2KNkpR7 XskbK4QWXb wIYnWDilFYE1R51lr3Z7JT OrCPJhLSS3dGR3yR5flZta bjogbGVmdDsgdmVydGljYW qhMBhxF225 IHRvcDsnPkZlbWFsZTwvdG Q+DXAsDCO5hXghWDysOEPz jX3cLYLyY6e7MiNvOkU4RW dhW2HdRXVw svlvTu43yP4qCgZcYvK9NY uiW6FrqoX1XMIwkQSfLHnf HIL8N66rl3K6OOHbYKNkRV S3vVH0zT6i bGlnbjogbGVmdDsgdmVydG buBRlhITieZ029CWAbuMmk IjLxLFVtBX0yoGtdmAT+PC 84tn62X1Mo YkufBdy2MLYbGHC3zPC2aN 6aNJIjRJzpq5M0gTZ8Z6Pb wtCrly1pi7cdSKOeDRpmT3 3pnIUtq1O6 KAEoiLW9ZCUftTluXwGkmP 93Oyc+ZFApyThup4DyAgvv s1szt5jiyKl2FmNzWIMesu FsaWduPSJ0 l3NvCg44K15eASigVSUyYB DpBOCcQZOnqUynbg0bvF4c Ii8+NDOkiGD1pAY4pR0hHc VtFcO4PYpp T866HkIexNGmTgccj1cbz3 wxsBu8KnAkOPXhkgNwqMqk VZZ0s7AeCg21G8EcsSuhe1 WqQoi4tl56 kLQdj1K6zCZ4B4XdYSEein gtxFUapLtwGH9lSAQkzjmf SRFwhC3xVBBnP9j0ZjPqNx D5YNhuJ4Ce qwB0RXDokAIpWZShmPMCrG 3twviwi0bmbibbStNjGOLe JGr3NTf1KJWsiQbhCoOzTY L5VyC8BRQ2 hHOyzZ5dkYjjdhnvqC1vJq c+EFi2o0tdvIBjZX7emPQ2 EX34BV09ePNlv2Y0vEH2J8 BhZGRpbmct tbvxkKB2UKBoVMXeuM11Ai 4iwFduLy3bCBWsYRE3KJUa jWStJ9VqjM1sJiAgJWXlRV YgA1FtrMDi IVndD103ODigAxX6DMAbsv MoD0OgRGXdgJcvRoQ2e0N8 Xb2LPB06CT23XF38rSFga1 F9jZZ5N1Zq DYVfpsqtxmtzvBN9GWAaQY RtzR49Vo0wzNjuDm3jOVZa SMX4UBPnrGCnX7IvvU7hVv AjMDAwMDAw E5BeoMUtQSeyM847QBsoMx A8IUJwboCiP2IsQPWipZfx RaP8h9B1Lp6FUm48WI96FL 76jKZrx4W2 eKR5Z4LnGNRlfmsxkabnnW D4AVVbMKMynT75Ht2juPqp Pv6xHLXuOKH9GSYvxGGgZ7 KexH1jYdHb ZVIxLRVuI1AjtRUsPJohX6 99MNvdGmB3MDIdxeAqC8Ru CTBbbXgxGaT7w2D7Rp7UZX cxsgn8N8Ld PjwvdHI+ZU36SZOrRC52oL XkuNWrw0lfsGc3DrOcIQZq ASR8jLqgAIadx3TrUQWxR1 4zzEVrb2R2 IGNv (more content not included)... Normal [facility] Nonvisit Note - PTon 022 Nonvisit Note - PT Pt did not show for this eval today. ljm Normal [facility] Auto Diffon 02-16-2022 Basophils/100 WBC (Bld) 0.8 % Normal 0.0-2.0 F [facility] Comment on above: Order Comment: Order Added by Discern Expert. Performed By: #### 2 478286, 0833821, 2636198, [id number], [id number] ####[facility] [address] [place] [address] Basophils/Leukocytes Auto (Bld) [Pure # fraction] 0.1 E9/L Normal 0.0-0.2 [facility] Comment on above: Order Comment: Order Added by Discern Expert. Performed By: #### 2 045491, 2216476, 2869352, [id number], [id number] ####[facility] [address] [place] [address] Eosinophils/100 WBC (Bld) 1.8 % Normal 0.0-8.0 [facility] Comment on above: Order Comment: Order Added by Discern Expert. Performed By: #### 2 985525, 3489297, 4219533, [id number], [id number] ####[facility] [address] [place] [address] Eosinophils/Leukocytes Auto (Bld) [Pure # fraction] 0.1 E9/L Normal 0.0-0.5 [facility] Comment on above: Order Comment: Order Added by Discern Expert. Performed By: #### 2 819792, 4916576, 1500863, 16001037, [id number] ####[facility] [address] [place] [address] Lymphocytes/100 WBC (Bld) 21.0 % Normal 14.0-50.0 [facility] Comment on above: Order Comment: Order Added by Yasmeen Expert. Performed By: #### 2 372213, 8120579, 7861698, 72050976, [id number] ####[facility] [address] [place] [address] Lymphocytes/Leukocytes Auto (Bld) [Pure # fraction] 1.5 E9/L Normal 1.0-4.0 [facility] Comment on above: Order Comment: Order Added by Discern Expert. Performed By: #### 2 690814, 6855787, 9286885, 73697570, [id number] ####[address] [place] [address] Monocytes/100 WBC (Bld) 7.4 % Normal 4.0-14.0 [facility] Comment on above: Order Comment: Order Added by Yasmeen Expert. Performed By: #### 2 920484, 7884490, 6443620, 88417917, [id number] ####[address] [place] [address] Monocytes/Leukocytes Auto (Bld) [Pure # fraction] 0.5 E9/L Normal 0.2-1.0 [facility] Comment on above: Order Comment: Order Added by Yasmeen Expert. Performed By: #### 2 003538, 9129815, 5347992, 72447007, 95719470 ####[address] [address] Neutrophils/100 WBC (Bld) 69.0 % Normal 36.0-75.0 [facility] Comment on above: Order Comment: Order Added by Yasmeen Expert. Performed By: #### 2 264655, 7043942, 7640101, 22333701, 50965104 ####[address] [place] [address] Neutrophils/Leukocytes Auto (Bld) [Pure # fraction] 5.0 E9/L Normal 2.0-7.5 [facility] Comment on above: Order Comment: Order Added by Yasmeen Expert. Performed By: #### 2 324380, 2177552, 4531495, 66333261, 09505987 ####[facility] [address] [place] [address] CBC w/ Auto Diffon Erythrocyte distribution width (RBC) [Ratio] 14.3 % High 10.9-14.2 [facility] Comment on above: Performed By: #### 2 893684, 4897639, 4829661, 41995179, 81320423 ####[address] [place] [address] Hematocrit (Bld) [Volume fraction] 36.6 % Normal 34.0-46.0 [facility] Comment on above: Performed By: #### 2 611202, 7767714, 8344154, 31860108, 83377171 ####[address] [address] Hemoglobin (Bld) [Mass/Vol] 11.9 g/dL Low 12.0-16.0 [facility] Comment on above: Performed By: #### 2 123243, 1651268, 3673768, 26109035, 80372761 ####[address] [address] MCH (RBC) [Entitic mass] 25.5 pg Low 27.0-34.0 [facility] Comment on above: Performed By: #### 2 890410, 0367899, 7397474, 04740794, 66039701 ####[facility] [address] [place] [address] MCHC (RBC) [Mass/Vol] 32.6 g/dL Normal 31.4-36.0 [facility] Comment on above: Performed By: #### 2 540441, 1855837, 0568995, 80418722, 60424578 ####[facility] [address] [place] [address] MCV (RBC) [Entitic vol] 78.2 fL Low 80.0-100.0 [facility] Comment on above: Performed By: #### 2 767683, 4775510, 4320076, 80574209, 23817599 ####[address] [place] [address] Platelet mean volume (Bld) [Entitic vol] 8.5 fL Normal 6.4-10.8 [facility] Comment on above: Performed By: #### 2 347744, 7584437, 2448783, 50207958, 55301105 ####[address] [address] Platelets (Bld) [#/Vol] 229.0 E9/L Normal 150.0-500.0 [facility] Comment on above: Performed By: #### 2 189901, 6953450, 7016495, 91112779, 81595725 ####[address] [address] RBC (Bld) [#/Vol] 4.7 E12/L Normal 4.3-5.9 [facility] Comment on above: Performed By: #### 2 421820, 5357819, 4701174, 31430885, 71806989 ####[address] [address] WBC corrected for nucl RBC Auto (Bld) [#/Vol] 7.3 E9/L Normal 4.0-11.0 [facility] Comment on above: Performed By: #### 2 880458, 9698150, 9470680, 29698121, 63902331 ####[address] [address] CMPon 02-16-2022 Albumin [Mass/Vol] 3.7 g/dL Normal 3.3-5.0 [facility] Comment on above: Performed By: #### 2 793810, 1262892, 8470041, 35883020, 49321170 ####[address] [address] Albumin/Globulin (S) [Mass conc ratio] 1.1 Normal 1.1-2.2 [facility] Comment on above: Performed By: #### 2 653808, 8701846, 1928863, 01974595, 90051527 ####[facility] [address] [place] [address] ALP [Catalytic activity/Vol] 48 Int._Unit/L Normal 21-98 [facility] Comment on above: Performed By: #### 2 116830, 6789545, 4590395, 45892295, 34258452 ####[facility] [address] [place] [address] ALT No additional P-5'-P [Catalytic activity/Vol] 16 Int._Unit/L Normal 6-46 [facility] Comment on above: Performed By: #### 2 868898, 7236235, 3814329, 12628913, 99861080 ####[facility] [address] [place] [address] AST [Catalytic activity/Vol] 15 Int._Unit/L Normal 5-43 [facility] Comment on above: Performed By: #### 2 428823, 2065008, 9664451, 35207337, 10450866 ####[facility] [address] [place] [address] Bilirubin [Mass/Vol] 0.6 mg/dL Normal 0.0-1.1 [facility] Comment on above: Performed By: #### 2 924312, 1615429, 2485019, 51028467, 08480576 ####[facility] [address] [place] [address] Creatinine [Mass/Vol] 0.7 mg/dL Normal 0.5-1.3 [facility] Comment on above: Performed By: #### 2 442886, 4445631, 8994064, 90165481, 36160559 ####[facility] [address] [place] [address] Globulin (S) [Mass/Vol] 3.4 g/dL Normal 1.4-4.0 [facility] Comment on above: Performed By: #### 2 879132, 1243912, 6263159, 60686468, 15609008 ####[facility] [address] [place] [address] Protein [Mass/Vol] 7.1 g/dL Normal 6.0-7.8 [facility] Comment on above: Performed By: #### 2 441954, 6700629, 9976671, 71988883, 18891063 ####[facility] [address] [place] [address] Urea nitrogen [Mass/Vol] 9 mg/dL Normal 5-21 [facility] Comment on above: Performed By: #### 2 177755, 3015027, 8318400, 30647028, 93301183 ####[facility] [address] [place] [address] Urea nitrogen/Creatinine [Mass ratio] 13 No Units Normal 10-20 [facility] Comment on above: Performed By: #### 2 596870, 0559733, 5697501, 82844950, 12399553 ####[facility] [address] [place] [address] Anion gap [Moles/Vol] 13 mmol/L Normal 6-16 [facility] Comment on above: Performed By: #### 2 358462, 7998970, 3720033, 18648558, 24281388 ####[facility] [address] [place] [address] Calcium [Mass/Vol] 8.7 mg/dL Low 8.9-11.1 [facility] Comment on above: Performed By: #### 2 871911, 0363962, 2997193, 23261296, 01867886 ####[facility] [address] [place] [address] Chloride [Moles/Vol] 106 mmol/L Normal 101-111 [facility] Comment on above: Performed By: #### 2 440749, 9029002, 9612147, 90876859, 71197775 ####[facility] [address] [place] [address] CO2 [Moles/Vol] 24 mmol/L Normal 21-31 [facility] Comment on above: Performed By: #### 2 615182, 8499872, 8025370, 42821899, 81386803 ####[facility] [address] [place] [address] Glucose [Mass/Vol] 98 mg/dL Normal 55-199 [facility] Comment on above: Result Comment: If t his glucose result represents a fasting glucose, interpretation should refer to the following reference range: 55-99 mg/dL Performed By: #### 2 856850, 3088125, 1469155, 05687722, 81446937 ####[facility] [address] [place] [address] Potassium [Moles/Vol] 3.8 mmol/L Normal 3.5-5.3 [facility] Comment on above: Performed By: #### 2 619235, 7436783, 5655891, 49364754, 03026908 ####[facility] [address] [place] [address] Sodium [Moles/Vol] 139 mmol/L Normal 135-145 [facility] Comment on above: Performed By: #### 2 301002, 9466350, 6303932, 44237040, 80778478 ####[facility] [address] [place] [address] Consent for Treatmenton Consent for Treatment [id number] 2059 [id number] 0CD:127 Normal [facility] Discharge Instructionson Discharge Instructions [id number]. 00CD:127 Normal [facility] ED Clinical Summaryon 2021 ED Clinical Summary [address] [address] ED Clinical Summary Person Information Name: LEENA INTERIANO [place] Age: 31 Years : 1990 Sex: Female Language: Sign Language PCP: BENTLEY LUCERO CNP Marital Status: Phone: [phone] Visit Id: Visit Reason: Headache; Cough; Chest [...] 02/16/2022 13:29:49 02/16/2022 13:29:49 02/16/2022 13:29:49 ADDRESS: [address] [place] [id number] PHYS DOC NOTES: MEDICAL INFORMATION: Prescriptions Given: New Medications [facility], [address] [place], [place] [id number], [phone] benzonatate (Tessalon 100 mg Cap) 1 Capsules By Mouth 3 times a day for 7 Days. Refills: 0. Medications to Continue Taking That Have Changed [facility], [address] [place], [place] [id number], [phone] START: amoxicillin (amoxicillin 500 mg oral tablet) [...] PATIENT EDUCATION INFORMATION: Instructions: Otitis Media, Adult, Tmci-no-Ztpo Follow up: With: Address: When: BENTLEY LUCERO CNP [address] [place] [address] In 3 days 02/19/2022 DIAGNOSIS: 1:Right otitis media; 2:Cough Normal [facility] ED Note-Physicianon 02-17-20 ED Note-Physician Basic [...] chest pain x2 days. 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 Physical exam shows right otitis media, dental [...] her that she can continue to use hsus-tzl-rasdbnq medications like Tylenol Motrin and Mucinex for symptom control. She is to follow-up with primary care provider. Patient is agreeable. Assessment/Plan 1. Right otitis media (H66.91: Otitis media, unspecified, right ear) Ordered: amoxicillin, 500 mg = 1 tab(s), Oral, TID, X 7 day(s), # 21 tab(s), Refills(s) 0, Pharmacy: [facility], 165.1, cm, 02/16/22 10:59:00 EDT, Height/Length Dosing, 86.5, kg, 02/16/22 10:59:00 EDT, Weight Dosing 2. Cough (R05.9: Cough, unspecified) Ordered: benzonatate, 100 mg = 1 cap(s), Oral, TID, X 7 day(s), # 21 cap(s), Refills(s) 0, Pharmacy: [facility], 165.1, cm, 02/16/22 10:59:00 [...] 02/16/22 11:21:00 (more content not included)... Normal [facility] Comment on above: Result Comment: Elec [...] Follow these instructions at home: ? Take xmlx-chs-byfokja and prescription medicines only as told by [...] 02/16/2009 Document Revised: 08/13/2018 Document Reviewed: 09/21/2017 [employer] Patient Education ? 2019 [employer]. Normal [facility] ED Patient Summaryon 022 ED Patient Summary [address] [address] Patient Discharge Instructions Person Information Name: LEENA INTERIANO Age: 31 Years Arrival Date: 02/16/2022 10:48:47 Discharge Diagnosis: 1:Right otitis media; 2:Cough Primary Care Physician: BENTLEY LUCERO CNP Provider Information Primary Provider: Connor Castellanos DO Advanced Lace Winder:Cary Archuleta PA-C The exam and treatment you received in the Emergency Department were for an urgent problem and are not intended as complete care. It is important that you follow up with a doctor, nurse practitioner, or physician?s family and divorce legal assistant for ongoing care. If your symptoms [...] Address: When: BENTLEY LUCERO CNP [address] [place] [address] In 3 days 02/19/2022 In the event that this physician does not participate in your insurance network, please consult with your insurance company to find a nearby participating provider. Patient Education Materials: Otitis Media, Adult, Egbb-za-Sgcm A MESSAGE TO ALL PATIENTS REGARDING OPIOIDS PRESCRIPTION OPIOIDS: WHAT YOU NEED TO KNOW Prescription opioids can be used to help relieve wpguhrft-zr-lpieca pain and are often prescribed following a [...] be struggling with addiction, tell your health personal care attendant and ask for guidance or call [place] [facility] [facility] National Helpline at [phone]. u Source: Department of a (more content not included)... Normal [facility] Influenza A&B Agon 2 Influenzae A Ag Negative Normal Negative [facility] Comment on above: Performed By: #### 2 [id number] ####[facility] [address] [place] [address] Influenzae B Ag Negative Normal Negative [facility] Comment on above: Result Comment: Test sensitivity and specificity vary for age group, specimen type, antigen types, and prevalence of disease. Test results must be evaluated in conjunction with other clinical data available to the physician. Individuals who received nasally administered Influenza A vaccine may have positive test results up to 3 days after vaccination. Performed By: #### 2 [id number], [id number] ####[facility] [address] [place] [address] Prescriptions/Work Noteson 0 02-16-2022 Prescriptions/Work Notes [id number]#1. 00CD:127 Normal [facility] Rapid COVID Antigen ([facility])on 02-16-2022 Rapid COV Int NEG Ctl Pass Normal [facility] Comment on above: Performed By: #### 2 [id number] ####[facility] [address] [place] [address] Rapid COV Int POS Ctl Pass Normal [facility] Comment on above: Performed By: #### 2 [id number] ####[facility] [address] [place] [address] SARS-CoV+SARS-CoV-2 (COVID-19) Ag IA.rapid Ql (Resp) Not detected Normal Not Detected [facility] Comment on above: Result Comment: The Nutzvieh24 System for Rapid Detection of SARS-CoV-2 is [...] or revoked sooner. Performed By: #### 2 [id number] ####[place] [address] ADMITTED TO INTENSIVE CARE UNIT FOR CONDITION OF INTEREST:FIND:PT: NO Normal [facility] Comment on above: Performed By: #### 2 [id number] ####[place] [address] EMPLOYED IN A HEALTHCARE SETTING:FIND:PT: NO Normal [facility] Comment on above: Performed By: #### 2 [id number] ####[place] [address] FIRST TEST FOR CONDITION OF INTEREST:FIND:PT: Unknown Normal [facility] Comment on above: Performed By: #### 2 [id number] ####[place] [address] HAS SYMPTOMS RELATED TO CONDITION OF INTEREST:FIND:PT: NO Normal [facility] Comment on above: Performed By: #### 2 [id number] ####[place] [address] HOSPITALIZED FOR CONDITION OF INTEREST:FIND:PT: NO Normal [facility] Comment on above: Performed By: #### 2 [id number] ####[place] [address] STATUS:FIND:PT: NO Normal [facility] Comment on above: Performed By: #### 2 [id number] ####[place] [address] RESIDES IN A CONGREGATE CARE SETTING:FIND:PT: NO Normal [facility] Comment on above: Performed By: #### 2 [id number] ####[address] [place] [address] Rapid Strep w/rfxon 02-17-20 22 S. pyogenes Ag IA.rapid Ql (Throat) Negative Normal Negative [facility] Comment on above: Performed By: #### 2 [id number], [id number], [id number] ####[facility] [address] [place] [address] Troponin 0 Hr.on 02-16-2022 Troponin I.cardiac [Mass/Vol] ng/mL Low 10.10-27.10 [facility] Comment on above: Result Comment: The 95% CI (Confidence Interval) PPV (Positive Predictive Value) for myocardial infarction in females is 38 pg/mL, in males 51 pg/mL. The results should be used in conjunction with clinical conditions of myocardial infarction. (Access High Sensitivity Troponin I Instructions For Use, [employer], April 2018) Performed By: #### 2 [id number], [id number], [id number] ####[facility] [address] [place] [address] XR Chest 2 Viewson 2 XR Chest [...] Transcribed by: MARÍA ELENA Technologist: AYALA Gonzalez [facility] eGFRon 02-16-2022 GFR/1.73 sq M.predicted among blacks MDRD (S/P/Bld) [Vol rate/Area] mL/min/{1.73_m2} Normal >=59 [facility] Comment on above: Order Comment: Order added by Discern Expert. Result Comment: eGFR is race adjusted. AA=. Performed By: #### 2 [id number], [id number], [id number], [id number] ####[facility] [address] [place] [address] GFR/1.73 sq M.predicted among non-blacks MDRD (S/P/Bld) [Vol rate/Area] mL/min/{1.73_m2} Normal >=59 [facility] Comment on above: Order Comment: Order added by Discern Expert. Result Comment: Computer Lab Assistant chance kidney disease could be indicated at eGFR's of less than 60 mL/min/1.73m2. Kidney failure is indicated at less than 15 mL/min/1.73m2. Performed By: #### 2 [id number], [id number], [id number] ####[facility] [place] [address] Coding Summary.on 01-15-2022 Coding Summary. CD:[id number] Gh 0bWw+PGhlYWQ+ST4MWUPsP 76faFCypZ2HM5qBGP9BNPU JYRAQPT7NKQ2leGY0PAxgQ 2VybiAv WtvhyQSdXT97OBm7CIC7mD vyVMrfbH9hmPQuD5c5EsIl BP82dJ73KRkeMXAdElQ6Ad ZpbjsgbWFy E5slWvUtaPCjSoq+PHRhYm xlIHdpZHRoPScxMDAlJyBz hGvdAT7hDz3sJUFkMEPmxO xhcHNlOiBj z6acRIApMUftAO7fpPqrH1 NkyWN5VGUds4g1Ad87dTK+ KVTcYMI8pZguTTvqd100Au Xya6emMNX9 dUSuPTbvPDV5K85zi7V8ZL WzJZNmBYH7fNU2zX3xmNli hugjR7QluCMyQxX1RCJ1pM YviM2wqYkd lalmaC3tLig+J92GJY1QAU CDNQ0AZqm3U6MdRmuezAD+ GM30DAQkAU60uUPyaAZen3 pinUc8EcKt TVCuTJJ3qIzcCEeqs1DsRG MhV56vpBTwh0J7VSUgdVod qMHvDwDvjDY6kR8kLAfhnd lib0muhoni Rfgij7jmzp68sV32N88iNY oxUGWaMNS1YVApGJRqqJgb jl4wiW2cRv0+AXgfu7kbg5 tidVc5ZpMf TMPbosErnVkgYQL1v8HuOi 43G6GwnQyvt5HdVxe8bi08 eDGlz5I8zAR8OGjnORKlpC 9cQKycNtA1 HUVvVnKagB65fISjFEyeTe 3baGszbByhFC1gTGNclwhq EHVwtC7zNSUcaLMvjRxtDV 4wNTBpbjtm r246WoCkFOC2SNQiwOOcZ4 SqeA3pBaJhQRUlUUQlF5Qk hQBwIRtwY851WRwzOlX0MZ MzraFnS1Xq DJPmyKvfAiC2v9H8Cu8Yi8 LgkibvWTZ4AEqbZOK9CtC1 ZlOtFgC8U3NgIsp9FJUcdB wtSG0mY9St SXYgsuzywoonoHI3YIOsIZ OrkD43oTFkAKuyVc2yt6O6 b977OQBxRIOvvN06Be8rsR ogMTBwdCBU aK0xvajyf4stuuhuJgDbKG TnCZz7TPr8LGYzvQzaPwGl LSW5GdP3CCI7uEMpfR5yoY hgbakczW3p Oyc+F47exF8uETZ5UDB3uh eaNQZrmcAfFU35PI53R7Nx PjwvdGFibGU+PGRpdiBzdH tmAA2xIuAr g8krk5PeDZnzA1VqAFNiLD kwBhj7SJKyRGQ7pVQ9hG2c LZIoBJmft2H5oJX1L5Luwx Zxeb9gu9rc FIKuEEndP36dmUJqq0C9II KovFH9LCZvcOujCkPavX24 Oyc+JSWllFyfl8ZoLpxic8 tva0vfhAo4 ZdLbOVIhufJokVpbFDQ0n2 HlSq96X68hIZceWOHdHJEk TPTwVEIcxWispf0eaY1lVv 8+PGNvbCB3 cUQ0oG4aVFCaUvC5RMzyA5 60JfUwsZKfJrojh6gvp1fn wOz7VxIiOZYxhjVfpYkaFL Z9o7FyYz04 L59fKTcvXQPuNUPzXOZeOG YrxAjjdr7dmE6lYx5+PC9j l6kyum03kH40rTH+PHRkIH B8iXgeEOhl EMQodO0mXKceFqQ6HKVnOd XurW02eWOzOVnmEb2otMja eUvyMB0xCNRzogwah768Ch Key4trMSOa wZHcDRvwEOJ6F60af8O0SN VtZMXsQUC6dEW5oW3qpUdp bjogbGVmdDsgdmVydGljYW nkXWrlM691 IHRvcDsnPlBhdGllbnQgTm XjWZs5V8XgZuc2LYYnkIxw SK9baRJaYGrsAb9ssPxmjZ yqFB9rFQJm cjyuc925LaXhy1nzGGEpqN PyGPuwICT5N06nn1G6HSKk CLHdBSA9rBI3mH8msEyskx ogbGVmdDsg elSuqUfcZSdfQVwcO737TL RvcDsnPkJpcnRoIERhdGU6 EK73QW54sSNpv9I8rAV0Q9 BhZGRpbmct efuihBZ9UIDyFDSuaT44Vq 2toXntHk9pERQfTTI4GWMx hHCaC2BbuE6mBwHeIZKxHT CnM8OvdWFq CJlfO708VCisLeU0KUXevr EaJ6HjOHJauUrtQjH6z1S5 Ht8IS6P1QK68VI82xSMsn6 N5xXL9T1Px RMZpigxljnjbdMA2WRLfXE XroI69Se0jaTypTx1dVLFh FRG5EIWhkHJzU9SboL6rHp AjMDAwMDAw F7AewQQgVLngF031QLtoUh F5EOXcsiOnU8CyZYAhtRwj CoQ6b1Z1Dy5TJAq5NK55AU 67jTMei2Z1 pFL0Y9TlYBLxjtmlgrxalI E5PLSvSVWliU75Yy1njLqj Lp0qRMSqFET4DSQvdACqT0 NfdZ1cBlJu KIJqFUOdJ9OyvESkPNlvF0 95SAyzYvJ6PJHdasPuH5Pk DLPdaBlyHqL2s4P5Dd5QQE ZkPD99QSP7 jYL8EQ67WN97Q9GgDwwobX FibGU+PHRhYmxlIHdpZHRo CMtuJMFxXsTywTvzZM6hRc 9yZGVyLWNv cCrtyLBwYfNji0vcCREaQU xnYK3tvQdeM7IcwGI6QXBr w4n1Fw90M93yA8DvoOA+PG FmrVL4yQE7 vC7kAmOrFkA0BAxrI039Bg ChrKDcNotzr9vbp8qcfQy1 JzB2QPQkbgNdhLifXFA4g4 MwMf06P76n IHdpZHRoPSIxNSUiIHZhbG zemk8ljN6jUn5+PGNvbCB3 qZW5bO2bKfSdIjF5PPidC0 49InRvcCIv Rfeap4zsh1hjzVt5DaByME TavlWonXcfHIM1y3QcUu79 W6KqiQhwb5MuRgp7sn13xE Aiz5T0zQI6 W3MlFDBnjquuoJOepTtoFA 6hOUCjixzwSYJfjH7lNNRu X2c8YjJyQhU7RBwpZ3Rsij M6XRHplXUk PLakXYN1G01ga8T0QRMuYD OjCSZ8iOE8pX4mvZdtathj bGVmdDsgdmVydGljYWwtYW iqE399MAPv xVqoOHAqoW2pISNljZIshH wvGN9gNZXxrutrUfwOLKje IEpBREEgTTwvdGQ+PHRkIH G2iQfpWJdx MLDvwA4yIYWnJ7l4ZsIdDw O7QDgrM9TuUEVkmapgWp13 sB5dTtNhZcV3ROxxZ6Alwr C5YJRpqSUo JXdsFMQ8F63fb2I2ZTHiCB WvRDE8rPN6wK9nrVjxdofg bGVmdDsgdmVydGljYWwtYW mwA233NVJa jWybKiX7LxU8XkC5QBT1G0 PeZnd2KRPjsKbkVK7oeHNs JRnoWd4iwOfcjNjoSS7yLF BpbjtwYWRk yP9zMLMvgMBziOtmGZ0wZD Cmzztfd748AvPxTNS0YNYk cQYpC5ZyeF8oKuQwOLCjOP VgQ9CtwDWs AWabV152HPjyMnC0DUCskk YoE7StRYOuwKpuTzK8e6D2 Um7xIDUOIKGbkiegtXF+PH HvLPZ0vDib KKaeTYChrC4kAWEoR0r6Ow YdGtU6UHwpO5CoATPhtarx Mk09xG4hJiVoJnR4XMuqU6 HavvJ3LRTn zTXbOKldKAY1W67mk6P9BN ExEVCaQJX3aJB2kR6qxQau bjogbGVmdDsgdmVydGljYW foJJwtE154 IHRvcDsnPkZlbWFsZTwvdG Q+TYLnTOV2fEteMKurJSLb qH7vSUHtZ2n0VcVvMwK3GZ nmL4IdWHLs sfkfPt51rC1aLwJlRaF4ES phN0QjdnH2TATpzADpDAiy RNQ2W45nz6V1RQXdQDCzWL T8aFV1aW2h bGlnbjogbGVmdDsgdmVydG grTExzQCpiR323TLOsvCbi XxRgTJHbFC5kdExygOX+PC 68cx62S5Cy HlpkZcs3LPAlFRK5pEM7lL 3jLZFcVGfln6D0xSO0F9My dtBbjz6qw3eqSYGvIStuE7 0lcXAzx3W2 TTExcCY6NENiiMqbXrXukB 93Oyc+TNTwnPgwi1HyKioa y2ddy0zkmVy1YhBxIHDlva FsaWduPSJ0 j7JlTb29W85gGZaaGQZcWT BlEZXsGPIovIqgkv3aaM5i Ii8+HXCxqIF5dPC0fU8pVr GcVoK0POmh J003VpZbmEIlQuhcp2vfg4 bloIp3CpJiTDMnbaBriKtu HAC0w9BgJx48I0YplJarr4 UxGum5qt59 sZFih8Q4bWN3A4OyDVRdmx jdhSUdlUdpCT6sBXIjmlvc URJpbP8oANUjB1e0EuBzDd O9RYuaW3Jk iqW4QSMpcMQcSIRtgDMFyV 1orjbwo3pvlyncZqUqNLJu CTd9CWu0WWQbpVinPfMxQV K9QoL7RTB3 eAXxpZ7yxKbnmvdqfY1vOj c+XSw0s1xygKKmXT4suUZ2 PA15ZX79vERcd5J3vXS8P7 BhZGRpbmct bfhlwWV2FTJkVLDrgU06Ur 9ozWmoSk4qBIIqVDU2EBKc nIDbC2WniS7wJuRsSWWdCI ZyE1WgoVHv QPcmN825UHzbCwG6QUIdwi JsQ7DwKNTezNhnVnS7f0I9 Ng3GTX45ER06MB15gYEuo4 A3eGR1S7Aq QQAcxmckvgpfbQV4CBEiVN VtpV91Sy3rgKfmJy4qHVIu ZNG8RLAqdORhQ6AsjI6wQd AjMDAwMDAw V8PzmCVuEZvcO153BAkyYn D7RMCxktGyY2PaRAYwiXhx OpT2f1G6By2XLk39MZ82WZ 00kYBxj9Y2 qFU3X5VfXSKyfmctqzoejZ A4LVYbWGRgfF34Gk8adHyf Yk4zPCHbGFT3MPXshAUfQ2 FydJ3lLmAi BABfOZZnY2QvuWFaWKnqS9 36OOyuWfR2IOClfrQhZ7Yf CKPbdMhwAjU2l3G4Vh0EMY qtbhu8S2Pg PjwvdHI+AI63VQEzIV69rW GkuGNzs0ihnLv4QkAuTQHs ROC8cAzpMSplg2OmJISpF3 8fkZVhq2W0 IGNv (more content not included)... Normal [facility] Discharge Instructionson Discharge Instructions [id number]#1. 00CD:127 [facility] Comment on above: Other Comment: WRONG FOLDER Prescriptions/Work Noteson 0 01-14-2022 Prescriptions/Work Notes [id number]#1. 00CD:127 [facility] Grp A Strp PCRon 01-10-2022 Grp A Strp Intrl Ctrl Pass Normal [facility] Comment on above: Order Comment: Order Added on by Discern Rule. Performed By: #### 2 [id number], [id number] ####[facility] [address] [place] [address] S. pyogenes rRNA Probe Ql (Unsp spec) Negative Normal [facility] Comment on above: Order Comment: Order Added on by Discern Rule. Result Comment: Test ing performed using DNA amplification. Performed By: #### 2 [id number], [id number] ####[facility] [address] [place] [address] Consent for Treatmenton 12-14 Consent for Treatment [id number]#1.0 0CD:127 Normal [facility] Discharge Instructionson Discharge Instructions [id number] 0CD:127 Normal [facility] ED Clinical Summaryon 2021 ED Clinical Summary [address] [address] ED Clinical Summary Person Information Name: LEENA INTERIANO [facility] Age: 31 Years : 1990 Sex: Female Language: Sign Language PCP: BENTLEY LUCERO CNP Marital Status: Phone: [phone] Visit Id: Visit Reason: Throat pain - [...] 01/09/2022 15:57:51 01/09/2022 15:57:51 01/09/2022 15:57:51 ADDRESS: [address] [place] [id number] [facility] DOC NOTES: MEDICAL INFORMATION: Prescriptions Given: Medications [...] With: Address: When: BENTLEY NIC [address] [place] [address] [employer] ([employer] In 3 days 01/12/2022 Comments: You should self quarantine for 5 days. Return to the emergency room if your symptoms get worse, you develop chest pain, shortness of breath or any new symptoms. DIAGNOSIS: 1:COVID-19 virus infection Normal [facility] ED Note-Physicianon 01-10-20 ED Note-Physician Basic [...] A&B Ag Rapid COVID Antigen ([facility] Rapid Strep w/rfx Medications Administered Given ibuprofen 600 mg Tab, 600 mg, Oral Disposition Plan Patient Discharge Condition Stable Discharge Disposition Discharged home Discharge Prescription List Prescriptions No active prescription medications Follow-up With When Contact Information BENTLEY LUCERO In 3 days 01/12/2022 EDT [address] [place] [address]- Business (1) Additional Instructions: You should self [...] Diagnostic Results No qualifying data available. Normal [facility] Comment on above: Result Comment: Elec tronically Signed By: Paul Moss, Devendra H\.br\Date and Time Signed: 01/09/22 16:32 EDT ED Patient Summaryon 022 ED Patient Summary [address] [address] Patient Discharge Instructions Person Information Name: LEENA INTERIANO Age: 31 Years Arrival Date: 01/09/2022 13:49:16 Discharge Diagnosis: 1:COVID-19 virus infection Primary Care Physician: BENTLEY LUCERO CNP Provider Information Primary Provider: Devendra Miller M.D. Advanced Lace Winder:None The exam and treatment you received in the Emergency Department were for an urgent problem and are not intended as complete care. It is important that you follow up with a doctor, nurse practitioner, or physician?s family and divorce legal assistant for ongoing care. If your symptoms [...] Instructions: With: Address: When: BENTLEY LUCERO [address] [place] [address] [facility] () In 3 days 01/12/2022 Comments: You [...] opioids can be used to help relieve lpbdslnx-rv-muevak pain and are often prescribed following a [...] If you (more content not included)... Normal [facility] Influenza A&B Agon 2 Influenzae A Ag Negative Normal Negative [facility] Comment on above: Performed By: #### 1 [id number] #### [facility] [address] [place] [address] Influenzae B Ag Negative Normal Negative [facility] Comment on above: Result Comment: Test sensitivity and specificity vary for age group, specimen type, antigen types, and prevalence of disease. Test results must be evaluated in conjunction with other clinical data available to the physician. Individuals who received nasally administered Influenza A vaccine may have positive test results up to 3 days after vaccination. Performed By: #### 1 [id number] #### [facility] [address] [place] [address] MICRO OTHER TESTSOrdered By: Ramses Camargo on 01-09-2022 Influenzae A Ag Negative (01/09/22 2:21 PM) Normal Negative [facility] Man Sero Influenzae B Ag Negative (01/09/22 2:21 PM) Normal Negative [facility] Man Sero Rapid COV Int NEG Ctl Pass (01/09/22 2:21 PM) Normal [facility] Man Sero Rapid COV Int POS Ctl Pass (01/09/22 2:21 PM) Normal [facility] Man Sero S. pyogenes Ag IA.rapid Ql (Throat) Negative (01/09/22 2:21 PM) Normal Negative [facility] Man Sero SARS-CoV+SARS-CoV-2 (COVID-19) Ag IA.rapid Ql (Resp) Detected *ABN* (01/09/22 2:21 PM) Invalid Interpretation Code Not Detected [facility] Man Sero Rapid COVID Antigen ([facility])on 01-09-2022 Rapid COV Int NEG Ctl Pass Normal [facility] Comment on above: Performed By: #### 2 [id number] ####[facility] [address] [place] [address] Rapid COV Int POS Ctl Pass Normal [facility] Comment on above: Performed By: #### 2 [id number] ####[address] [place] [id number] SARS-CoV+SARS-CoV-2 (COVID-19) Ag IA.rapid Ql (Resp) Detected Abnormal Not Detected [facility] Comment on above: Result Comment: The ContraFect? System for Rapid Detection of SARS-CoV-2 is [...] or revoked sooner. Performed By: #### 2 [id number] ####[facility] [address] [place] [id number] ADMITTED TO INTENSIVE CARE UNIT FOR CONDITION OF INTEREST:FIND:PT: NO Normal [facility] Comment on above: Performed By: #### 2 [id number] ####[place] [address] EMPLOYED IN A HEALTHCARE SETTING:FIND:PT: Unknown Normal [facility] Comment on above: Performed By: #### 2 [id number] ####[place] [address] FIRST TEST FOR CONDITION OF INTEREST:FIND:PT: Unknown Normal [facility] Comment on above: Performed By: #### 2 [id number] ####[place] [address] HAS SYMPTOMS RELATED TO CONDITION OF INTEREST:FIND:PT: YES Normal [facility] Comment on above: Performed By: #### 2 [id number] ####[place] [address] HOSPITALIZED FOR CONDITION OF INTEREST:FIND:PT: NO Normal [facility] Comment on above: Performed By: #### 2 [id number] ####[place] [address] STATUS:FIND:PT: Unknown Normal [facility] Comment on above: Performed By: #### 2 [id number] ####[place] [address] RESIDES IN A CONGREGATE CARE SETTING:FIND:PT: NO Normal [facility] Comment on above: Performed By: #### 2 [id number] ####[place] [address] Rapid Strep w/rfxon 01-10-20 22 S. pyogenes Ag IA.rapid Ql (Throat) Negative Normal Negative [facility] Comment on above: Performed By: #### 2 [id number], [id number] ####[place] [address] Coding Summary.on 11-26-2021 Coding Summary. CD:[id number]:[id number] Gh 0bWw+PGhlYWQ+HB6OBDWfT 62arJAozW2MU3zJTL6RZWH PJGWECD2BNW0gaVS6QUboR 2VybiAv MddfsHAqSY56PIo9TIZ1iZ oeQPzxeS3yaHSvH7g8YcLc RQ81pP85HUlmEVGsIkS8Tt ZpbjsgbWFy K8ptNfDuhYXuXpe+PHRhYm xlIHdpZHRoPScxMDAlJyBz sCdhLG9sEk4yMQUsQUBcpM xhcHNlOiBj g7kyMFXeCVrhGO8usKcoB8 IrmQL5FECem0f3Yh81gUY+ GQBpHWX6yNclUBzry547Th Xdw1rpQEL7 eNEaIDekKST4U09pu0G8PH YtSFNtGNA2yIL1yB0eeGxb ncrgJ5VhhUElCeG2PVJ1uE SnhP0slRqm indgpG8lIko+H36TUD2LRO FVZG3ELnr0L0YkEelyhHR+ QH43MNSvVE36sQQeuFXtv3 osmXi4QlVd DLOmTRX7tUhePIsgs4KvGV YzR71nvIPsh6Z6RNMppAeo jQAjKsDsjZP6jW0uITmzbf yis1goifkh Okqql3xwzg46yA93Q60vOR jgCPTiKFQ6KTDdGQQnsQrs gr6awO2yLa5+IDhtj2ejm8 aowVw4SbIk BOSwsdAwzLggLSD4j4IjUz 32Z7IswVvwy9PuPtd1jj47 uRPwl5E4jQW2TGoeLLNhtA 7uPRifWsP8 TRIoLcAokL78uAVpUJunJx 7lkVwtoBfsQW3wGPCvqalu VJQloA9uKQRyqEVkdShkPT 4wNTBpbjtm u675KxCdZAO4XGBkcJRlZ4 XzdU7jRvYnRPYbNGCvU1Kd dDZhKEvcI218SYamFjK5DL XftzYxD0Gl FDWptEmrZeY9n6Q9Yo2Be4 YkohnmXMZ3NMzuJWJdGuM9 IoGqFqI9F2YpMfp8RSCwjJ vdDZ3vO5En JIHshtgciqixsVL0SDPoVH RezZ93nYMuEIbhYh9bw3N1 q643TUXxIEQbfW11Qg6pjT ogMTBwdCBU rP6yvgmjq4voxmmxZuUsYV JsYRs4OYl0SOZofAtjFiNq TVT1FuP9DRK3rQNyxX8weA wlfyypbG3e Oyc+U57nhT2zDAH7JJH3ko xjGAFcxyDkCM05CE05O7Ue PjwvdGFibGU+PGRpdiBzdH jiXJ8sPiEu f6gli3SwEBvaZ4AqGALxTA neGkc4YGTpSEW1hNJ7dO4o MZIkLWdxf0R4tCO3A2Engk Wsgq4mk3jw RVDwJOqkW17izIXhs9C2WK YbqWG0TNIsqIajKrYntE02 Oyc+PXGwfBixf4LsFtojv8 dqr7omqKz9 ZkZzEOElcpWcaXopEEQ4i0 GiBt43Z98sDBdxMIHeRGKp KOFkUPQtcIxprw7yzJ3kDr 8+PGNvbCB3 xNQ9kJ5aTUOmLsC2OJnwN6 50JgZroGTgFgexx7fez9be cXp6JgFdGIUhqdNohMpvMC T0j7OdDl29 E19dUUmlYPVpRXIvSIXnVI VqnXipzp0bcW7hJy3+PC9j f5zmbc40aS79dIM+PHRkIH Q5yGsbWYac EMUjrS7tGQmfBwF7BQAyEs MkvS08mERaQFywCv8okZom eWycAY2uZEQmvmust373Ut Dwx7hmGIXa vPXsALjtWYP8Y70ht1H4RT WxQMImXNS5pEK2gA3mnOgh bjogbGVmdDsgdmVydGljYW ndXWizM382 IHRvcDsnPlBhdGllbnQgTm ElJFh7X2YzKmj3AISglZgm JE2dzZJrTMcoLe2nrYsubZ vsPR4dZPZz twuqs733AbFmx2vgRJEfgE RlDOdeNIU1F75zk6Z3CHHt UDVzUAW5gKJ5jV2wiJkmhk ogbGVmdDsg fsZqrDepBVbzXMecS317KC RvcDsnPkJpcnRoIERhdGU6 NC02NM52qHEmi4E3zFF6U6 BhZGRpbmct xmuzcRZ6GJEaEMSilC79Jt 4puWmgWu7uFDEyGAG7TGSs iHLdK4IerS4nFdDmTNHuLA JfP9FrsPKw DBpiN208WFrkLoV9LAAkyw AkL1DuTTKsiWvdKzY4d9G9 Qb7OP2N8JG91TS38kCZka1 H8lYF0Q6Zg OZUhlvghpsuddWW8WFAgOB FuxU18Zm2eeOzjTq3bWNUo BMZ5FAChnGYbS6FyqW0sCg AjMDAwMDAw O4MvxVAzXYdrD453KZdsKt M2BYQizzZrL2XjGOZujEsv XbL7e7V6Px0KMGb3WN99CA 05mZPsr0O0 oHX6H0QlCRCvyifhgeffgF P1VFDcWZMyaO56Zm4hwPne Rh8mSLTaGUW8BPPrzPXiE7 SyqD6cUcIz VCAmATUjA3QyxGQxBWwnL1 83WZbpXcO6LTAuviBmE8Jb ZUTaaDorXlX7c9W6Ng6KTO NaQH63XPW3 dFR7FI48SA87M2CwZodnsH FibGU+PHRhYmxlIHdpZHRo VXnlWAWdUeFlzSupPU0gXc 9yZGVyLWNv cAgksJDfLdQlx6hqBXGmKL mjRQ8ixBjeP0LhhHI0RZCl y4e5Zn49J54hP4IpsLJ+PG HgtVS1cPE7 aH1nRbOyTlU0UKwzR494Rh SpmTReKpash1frb8fbbNg0 UaD9RAAuseEmiTveIRE5o6 XwTn79D54s IHdpZHRoPSIxNSUiIHZhbG itnw3yrP8nOm3+PGNvbCB3 gVI9mH2oOnGwFmV3JVibX9 49InRvcCIv Erofa3fbv4wjrGs4YcYtWK FuodZvoLwgPBY7n7LlFr70 S7QssKdll2VdAqb1nm43cX Tdm8C1rTQ4 V3AzHRJdfoayfNYnnBadDU 5sHONpyszgXVItdH7oEJIb E3q1GeTyZdU0ELqsU4Yrws N1ZBBtbYFp BGteSHK9C58ab6N6CCFaIY WzJPI3lNP3hH7rzSikqmyx bGVmdDsgdmVydGljYWwtYW vpE659ABVx iQjbDATyyN6qGLPpcXVqcE dcVU2nJGBefjvaJsiWYPqe IEpBREEgTTwvdGQ+PHRkIH R1gLtjYWep TCZeiN4xIKBdV0r1NcOaIu C8OKbxC6NiLTVhhyfuHr39 mN1jIjNqIvT1JJwcH3Ovdc H6MGOomBNk IEumEWR9U27jx3P8FXNmFX YiVFO8hGU3gM8hqHzehrry bGVmdDsgdmVydGljYWwtYW ayA877ZUDy cZlfRhD0JuZ6QhO4KWO7P0 OaUas6DUNhgMusYF8qgQEi YWztWh6awAdkkLxdHB1eDU BpbjtwYWRk sQ4iDELjbWPnkEwxWN7lXH Vsegpxz150NiEuBQC0FKBr pRNgB8XplS0vXpChAHErSU NsM5PdoOLt TEgyR598GNbjItS1ECMmlh GqA6WlBUHvcHnjRmQ4x0U4 Tt5vILBVMWOijekdoOP+PH EqGAC9nHwt MApeLQHdeI2gSJUnS0w4Ou IxXbR1DGhpX8OaTPSijgpi Pm05mJ9lUyRrRsI1YQsfY2 NbttQ9DMVu kMXrEKzfORL0X10qj0O5SZ HbDAPjGHS4oGV7pQ4jfWar bjogbGVmdDsgdmVydGljYW rxSJtvO856 IHRvcDsnPkZlbWFsZTwvdG Q+RFSrWIH6hIgsXWthCWAs aT7yZAUkS7p4WrGwYlO7ZN zuI1MdCLWh bsafGl41sA8yGdDlFxR4SF paK0JxytZ2LPBswNEdCSoi SSD3M93bi4H2PLFqIJKfXN R3zHT0wE8x bGlnbjogbGVmdDsgdmVydG djYSovIRmuL216YHSqyWes SiYdPCRiXB8tzGxndJS+PC 24yb52H2Em XkhhWns8ZJHbZDS9jBH2mT 7qTCDbTTmaf4Z0nWP1L5Uc mdVhag9ew7etHVMhUVhdU8 8diRAwi3Y0 FMMgfDB9IHOgaMxlRuQuzD 93Oyc+XYEpnZevy2UgNgnh w4fqg2eaaPy6PgFeIIYbjw FsaWduPSJ0 w8CxVu63E34aWHedVVJcEP WyUTDhMUDacQvgdg4hhY7b Ii8+URPdhPK2tJJ1uS1yVo YzRqJ5YGxo I713KiFfvLRyIuviz4gvz9 rtpWu4VrAwTJHoqvPmeXec HGU6e5GrNs14G3WdxFtic2 RvLcq0fh13 aPDif2M1gUT6P8JyFBTzqe tvbEJceKpmRS7xURFgiinp OCSzrJ2wFZGqP2e2GdRbSi X7PNrqS4Hf jjL7DKFkfPIwWRIcdFHTmB 1brljtk7pxkmliIgBlGKLa OQa2DWy8AUOisAsgTwVqCN I0JyV0LJJ3 bDVptT1ctLqslqtgwN2rXm c+ZDq9q4lsuCRgPV4hqNU3 GM98UC13nGPba7X3wWK9Z7 BhZGRpbmct bryghMV3LPJfQVQngC82Fq 5neCtkTa4tAFZiIRX7CWVr xNSgI6KxrD0xNbRlRAOtEM QoW9XibVDw TDzdQ272LRdnKrO6OKXdvb YeA0SwLQOzyRsqImS5s4W5 Gk9JUC94BM00BT99lPJff9 E4rZC0G7Ev JNRzcdejuuxqnXN0DJNlLQ QbvW88Wy1taOgeQp5fCOOw IUI6PBSypVWkA3OdcG8oTc AjMDAwMDAw Q2KccFLyHDtmK403IRfgZc V8MXPjtpFgB7FoEAVfrQqt FgK0a0G0Iw3CHz85YC52OT 35yGDug4I3 vAD0P1KfDILjcpiukytviZ P9XAZbZUIzwW82Kd7qyUsp Ca5gBKRmLRG4IBEyeGClE7 LxbA1cAzKr ZNLuUFAgF7GqkFLpIQruZ9 24TUbrGeE1UAHevtBeK4Zi CIXysBbrGhD4b3X2Ii8RRT swhgy3T3Uq PjwvdHI+VN79TUIsLF56xD VjwHLgo6gkvXm9JpJaDNNu HGV3dHlgCKkdq5UeLNOxS9 3adNWvr6U9 IGNv (more content not included)... Normal [facility] ED Note-Physicianon 11-20-19 ED Note-Physician Basic [...] day(s), # 10 cap(s), Refills(s) 0, Pharmacy: [facility], 165, cm, 11/18/21 12:18:00 [...] In 3 days 11/21/2021 EST [address] [place] [address]- Business (1) Additional Instructions: Patient Education Gastritis, Adult Attestation Patient seen and evaluated by the physician family and divorce legal assistant. Attending physician was present in the emergency department and supervised care. This visit was performed by both the physician and an APC. I performed all aspects of the MDM as documented. This report was transcribed using voice recognition software. Every effort was made to ensure accuracy, however, inadvertently computerized senior policy analyst mistakes may be present. Appropriate healthcare PPE [...] Oral, Daily (more content not included)... Normal [facility] Comment on above: Result Comment: Elec tronically Signed By: Grant Jacob PA-C\.br\Date and Time Signed: 11/18/21 14:10 EST\.br\Electronically Co-Signed By: Kristopher Clemons DO\.br\Date and Time Co-Signed: 11/19/21 07:37 EST .Manual Abson 11-18-2021 Basophils/Leukocytes Manual cnt (Bld) [Pure # fraction] 0.1 E9/L Normal 0.0-0.2 [facility] Comment on above: Performed By: #### 3 [id number], [id number], [id number] ####[facility] [place] [address] Eosinophils/Leukocytes Manual cnt (Bld) [Pure # fraction] 0.1 E9/L Normal 0.0-0.5 [facility] Comment on above: Performed By: #### 3 [id number], [id number], [id number], [id number] ####[facility] [address] [place] [address] Lymphocytes/Leukocytes Manual cnt (Bld) [Pure # fraction] 1.6 E9/L Normal 1.0-4.0 [facility] Comment on above: Performed By: #### 3 [id number], 0911168, 4047753, 07366199, 8809197, 10544566, 8976626 ####[address] [place] [address] Monocytes/Leukocytes Manual cnt (Bld) [Pure # fraction] 0.6 E9/L Normal 0.2-1.0 [facility] Comment on above: Performed By: #### 3 7614534, 2368207, 8226832, 3862901, 90904026, 6883146, 82200018, 2348619 ####[address] [place] [address] Neutrophils/Leukocytes Auto (Bld) [Pure # fraction] 3.9 E9/L Normal 2.0-7.5 [facility] Comment on above: Performed By: #### 3 5171729, 4789663, 6506661, 1712944, 08045159, 3240916, 97864904, 5230947 ####[facility] [address] [place] [address] BMPon 11-18-2021 Creatinine [Mass/Vol] 0.7 mg/dL Normal 0.5-1.3 [facility] Comment on above: Performed By: #### 3 2532464, 7064364, 7294514, 7341553, 93255045, 4242792, 30253866, 0521871 #### [facility] [address] [place] [address] Urea nitrogen [Mass/Vol] 11 mg/dL Normal 5-21 [facility] Comment on above: Performed By: #### 3 8093954, 0436236, 8491005, 6180943, 18991254, 2633034, 56464433, 2216657 #### [facility] [address] [place] [address] Urea nitrogen/Creatinine [Mass ratio] 16 No Units Normal 10-20 [facility] Comment on above: Performed By: #### 3 3874201, 0820841, 9394626, 4449484, 82156047, 8383940, 84395602, 7728000 #### [facility] [address] [place] [address] Anion gap [Moles/Vol] 12 mmol/L Normal 6-16 [facility] Comment on above: Performed By: #### 3 2273052, 1277550, 9459353, 9732778, 86489502, 0913553, 83871892, 7970022 #### [facility] [address] [place] [address] Calcium [Mass/Vol] 9.0 mg/dL Normal 8.9-11.1 [facility] Comment on above: Performed By: #### 3 7250285, 4112667, 4533306, 7840120, 72109055, 4390106, 22667426, 0944044 #### [facility] [address] [place] [address] Chloride [Moles/Vol] 104 mmol/L Normal 101-111 [facility] Comment on above: Performed By: #### 3 3497864, 9142276, 4979444, 0658386, 65906926, 9576724, 09852155, 4416314 #### [facility] [address] [place] [address] CO2 [Moles/Vol] 24 mmol/L Normal 21-31 [facility] Comment on above: Performed By: #### 3 0436461, 5459406, 7541935, 4029553, 78379705, 8979484, 69146253, 5837659 #### [facility] [address] [place] [address] Glucose [Mass/Vol] 87 mg/dL Normal 55-199 [facility] Comment on above: Result Comment: If t his glucose result represents a fasting glucose, interpretation should refer to the following reference range: 55-99 mg/dL Performed By: #### 3 5756751, 3355366, 1708333, 4851880, 95996594, 4439540, 96001243, 1442484 #### [facility] [address] [place] [address] Potassium [Moles/Vol] 3.7 mmol/L Normal 3.5-5.3 [facility] Comment on above: Performed By: #### 3 2579204, 4562746, 8360652, 3021099, 40043697, 1730213, 49376783, 9157323 #### [facility] [address] [place] [address] Sodium [Moles/Vol] 136 mmol/L Normal 135-145 [facility] Comment on above: Performed By: #### 3 3263410, 1941927, 4540596, 5325700, 04374229, 9107648, 80220316, 0902628 #### [facility] [address] [place] [address] CBC w/ Auto Diffon Erythrocyte distribution width (RBC) [Ratio] 14.6 % High 10.9-14.2 [facility] Comment on above: Performed By: #### 3 1222177, 7026085, 7205231, 5046812, 45057414, 5374342, 19470380, 2957204 #### [facility] [address] [place] [address] Hematocrit (Bld) [Volume fraction] 36.0 % Normal 34.0-46.0 [facility] Comment on above: Performed By: #### 3 7628092, 9190289, 5644986, 5816382, 94066938, 5224273, 73904090, 6225085 #### [facility] [address] [place] [address] Hemoglobin (Bld) [Mass/Vol] 12.3 g/dL Normal 12.0-16.0 [facility] Comment on above: Performed By: #### 3 9068987, 2673536, 0726287, 6059139, 15713412, 0168365, 28511166, 8695533 #### [facility] [address] [place] [address] MCH (RBC) [Entitic mass] 26.4 pg Low 27.0-34.0 [facility] Comment on above: Performed By: #### 3 6223887, 5277206, 6599202, 8012817, 17243603, 6287450, 31633925, 8853169 #### [facility] [address] [place] [address] MCHC (RBC) [Mass/Vol] 34.1 g/dL Normal 31.4-36.0 [facility] Comment on above: Performed By: #### 3 3533954, 0879391, 5027792, 3456395, 51062879, 3904340, 04495857, 2777141 #### [facility] [address] [place] [address] MCV (RBC) [Entitic vol] 77.3 fL Low 80.0-100.0 [facility] Comment on above: Performed By: #### 3 8852508, 2328211, 6026849, 1938089, 00670662, 1929652, 11967513, 7211378 #### [facility] [address] [place] [address] Platelet mean volume (Bld) [Entitic vol] 9.3 fL Normal 6.4-10.8 [facility] Comment on above: Performed By: #### 3 5041803, 8866174, 6068177, 0139157, 44781020, 0297111, 62699112, 2351292 #### [facility] [address] [place] [address] Platelets (Bld) [#/Vol] 250.0 E9/L Normal 150.0-500.0 [facility] Comment on above: Performed By: #### 3 8148392, 4799041, 3240333, 1198897, 11297187, 4486779, 48114144, 1585077 #### [facility] [address] [place] [address] RBC (Bld) [#/Vol] 4.6 E12/L Normal 4.3-5.9 [facility] Comment on above: Performed By: #### 3 9180559, 3815008, 2955339, 2132843, 45822745, 0535896, 53246254, 1301994 #### [facility] [address] [place] [address] WBC corrected for nucl RBC Auto (Bld) [#/Vol] 6.3 E9/L Normal 4.0-11.0 [facility] Comment on above: Performed By: #### 3 6178599, 2678527, 3961460, 7975865, 19771652, 8632277, 50854633, 4701148 #### [facility] [address] [place] [address] Consent for Treatmenton Consent for Treatment [id number]#1.0 0CD:127 Normal [facility] Discharge Instructionson Discharge Instructions [id number]#1.0 0CD:127 Normal [facility] ED Clinical Summaryon 2021 ED Clinical Summary [address] [address] ED Clinical Summary Person Information Name: [facility] Age[facility] 31 Years : 1990 Sex: Female Language: Sign Language PCP: BENTLEY LUCERO CNP Marital Status: Phone: [phone] Visit Id: Visit Reason: Nausea; Chest pain; [...] 11/18/2021 14:15:52 11/18/2021 14:15:52 11/18/2021 14:15:52 ADDRESS: [address] [place] [id number] PHYS DOC NOTES: MEDICAL INFORMATION: Prescriptions Given: New Medications [facility] 1985, [address] [place], [place] [id number], [phone] omeprazole (omeprazole 40 mg Balbir-) 1 Capsules [...] up: With: Address: When: BENTLEY LUCERO [address] [address] [employer] ([employer] In 3 days 11/21/2021 DIAGNOSIS: Gastritis Normal [facility] ED Patient Education Noteon 11-18-2021 ED [...] medicines. These include steroids, antibiotics, and some gezz-sua-vcfmknu medicines, such as aspirin or ibuprofen. ? [...] these instructions at home: Medicines ? Take hobf-kmj-mzfswhx and prescription medicines only as told by [...] 08/25/2002 Document Revised: 01/18/2019 Document Reviewed: 01/18/2019 [employer] Patient Education ? 2019 [employer]. Normal [facility] ED Patient Summaryon 022 ED Patient Summary [address] [address] Patient Discharge Instructions Person Information Name: LEENA INTERIANO Age: 31 Years Arrival Date: 11/18/2021 12:10:57 Discharge Diagnosis: Gastritis Primary Care Physician: BENTLEY LUCERO CNP Provider Information Primary Provider: Kristopher Clemons DO Advanced Lace Winder:Grant Jacob PA-C The exam and treatment you received in the Emergency Department were for an urgent problem and are not intended as complete care. It is important that you follow up with a doctor, nurse practitioner, or physician?s family and divorce legal assistant for ongoing care. If your symptoms [...] With: Address: When: BENTLEY LUCERO [address] [place] [address] Business (1) In 3 days 11/21/2021 In the event that this physician does not participate in your insurance network, please consult with your insurance company to find a nearby participating provider. Patient Education Materials: Gastritis, Adult A MESSAGE TO ALL PATIENTS REGARDING OPIOIDS PRESCRIPTION OPIOIDS: WHAT YOU NEED TO KNOW Prescription opioids can be used to help relieve wimbwxpl-ku-qguifr pain and are often prescribed following a [...] be struggling with addiction, tell your health personal care attendant and ask for guidance or call [facility]?S National Helpline at [phone]. x Source: Department of Health and Human Se (more content not included)... Normal [facility] Hep Func Panelon 11-18-2021 Bilirubin.indirect [Mass or moles/Vol] UTC Abnormal 0.1-0.9 [facility] Comment on above: Result Comment: Resu lt verified by Discern Rule. Performed result UTC (Unable to Calculate) was sent as an Alpha code due the inability to calculate a valid numeric value. Performed By: #### 3 8453354, 9778699, 1569320, 4438503, 02387144, 2724057, 89993135, 8772034 #### [facility] [address] [place] [address] Albumin [Mass/Vol] 4.0 g/dL Normal 3.3-5.0 [facility] Comment on above: Performed By: #### 3 2957883, 9751839, 8304327, 2851751, 43036436, 1535175, 77527405, 9494069 #### [facility] [address] [place] [address] Albumin/Globulin (S) [Mass conc ratio] 1.2 Normal 1.1-2.2 [facility] Comment on above: Performed By: #### 3 4225681, 7322197, 7434595, 3336439, 12186549, 5713228, 32075466, 3206635 #### [facility] [address] [place] [address] ALP [Catalytic activity/Vol] 50 Int._Unit/L Normal 21-98 [facility] Comment on above: Performed By: #### 3 5964518, 1191208, 2563718, 2054652, 34770781, 8330978, 46234745, 5787377 #### [facility] [address] [place] [address] ALT No additional P-5'-P [Catalytic activity/Vol] 14 Int._Unit/L Normal 6-46 [facility] Comment on above: Performed By: #### 3 6610747, 9783414, 8681058, 8524283, 31088964, 8818237, 33500358, 6352257 #### [facility] [address] [place], [place] [address] AST [Catalytic activity/Vol] 17 Int._Unit/L Normal 5-43 [facility] Comment on above: Performed By: #### 3 2292447, 8459923, 4980272, 0469305, 35670077, 4362354, 40119598, 3422214 #### [facility] [address] [place] [address] Bilirubin [Mass/Vol] 0.6 mg/dL Normal 0.0-1.1 [facility] Comment on above: Performed By: #### 3 3801754, 0720323, 0605458, 4503557, 83677657, 2811372, 84000470, 6012999 #### [facility] [address] [place] [address] Bilirubin.direct [Mass/Vol] mg/dL Normal 0.1-0.4 [facility] Comment on above: Performed By: #### 3 7830651, 3695732, 0959197, 1607545, 86812554, 0553858, 48520520, 0690296 #### [facility] [address] [place] [address] Globulin (S) [Mass/Vol] 3.3 g/dL Normal 1.4-4.0 [facility] Comment on above: Performed By: #### 3 4369376, 6148360, 1706580, 5410466, 82080685, 7672825, 22721384, 2941235 #### [facility] [address] [place] [address] Protein [Mass/Vol] 7.3 g/dL Normal 6.0-7.8 [facility] Comment on above: Performed By: #### 3 1953135, 7625590, 1631018, 5726455, 04320287, 0395006, 98966439, 4566189 #### [facility] [address] [place] [address] Lipase Levelon 11-18-2021 Lipase [Catalytic activity/Vol] 27 U/L Normal 13-58 [facility] Comment on above: Performed By: #### 3 6262876, 8376630, 9705719, 3179617, 12876935, 6979686, 27115719, 5142613 #### [facility] [address] [place] [address] Manual Diffon 11-18-2021 Band form neutrophils/100 WBC (Bld) 6 % Normal 0-10 [facility] Comment on above: Order Comment: Order Added by Discern Expert. Performed By: #### 3 9476126, 6634971, 2159424, 6078126, 71048863, 8918713, 42384581, 7129080 ####[facility] [address] [place] [address] Basophils/100 WBC (Bld) 1 % Normal 0-2 [facility] Comment on above: Order Comment: Order Added by Discern Expert. Performed By: #### 3 2546639, 1230505, 1110794, 6187876, 34102138, 2563010, 07700152, 9279209 ####[facility] [address] [place] [address] Eosinophils/100 WBC (Bld) 2 % Normal 0-8 [facility] Comment on above: Order Comment: Order Added by Discern Expert. Performed By: #### 3 9706928, 8697641, 6388526, 5327484, 54107374, 2756041, 81292515, 9729399 ####[facility] [address] [place] [address] Lymphocytes/100 WBC (Bld) 25 % Normal 14-50 [facility] Comment on above: Order Comment: Order Added by Discern Expert. Performed By: #### 3 3533232, 7294108, 0433600, 0611664, 89797692, 0235557, 09615091, 0359920 ####[address] [address] Monocytes/100 WBC (Bld) 10 % Normal 4-14 [facility] Comment on above: Order Comment: Order Added by Discern Expert. Performed By: #### 3 1649472, 0234824, 2106691, 3195438, 86844933, 4586935, 19261565, 5312936 ####[address] [place] [address] Morphology Doroteo (Bld) [Interp] Normal Normal [facility] Comment on above: Order Comment: Order Added by Discern Expert. Performed By: #### 3 4806292, 7802475, 5711978, 7187301, 49881865, 7306916, 16898640, 3572875 ####[facility] [address] [place] [address] Segmented neutrophils/100 WBC (Bld) 56 % Normal 36-75 [facility] Comment on above: Order Comment: Order Added by Discern Expert. Performed By: #### 3 5873825, 6280014, 3423915, 8118860, 39170938, 9318832, 58552207, 1637308 ####[facility] [address] [place] [address] Variant lymphocytes LM Ql (Bld) 0 % Invalid Interpretation Code [facility] Comment on above: Order Comment: Order Added by Discern Expert. Performed By: #### 3 6824586, 2869733, 5900946, 2165316, 02653693, 8174594, 77531099, 2821189 ####[facility] [address] [place] [address] Prescriptions/Work Noteson 0 11-18-2021 Prescriptions/Work Notes [id number]#1.0 0CD:127 Normal [facility] Troponin 0 Hr.on 11-18-2021 Troponin I.cardiac [Mass/Vol] ng/mL Low 10.10-27.10 [facility] Comment on above: Result Comment: The 95% CI (Confidence Interval) PPV (Positive Predictive Value) for myocardial infarction in females is 38 pg/mL, in males 51 pg/mL. The results should be used in conjunction with clinical conditions of myocardial infarction. (Access High Sensitivity Troponin I Instructions For Use, Alec Naomi, April 2018) Performed By: #### 3 0863576, 6131321, 9585910, 7150547, 29641372, 7741510, 67701050, 3893694 #### [facility] [address] [place] [address] XR Chest 2 Viewson XR Chest 2 [...] Transcribed by: MARÍA ELENA Technologist: NURIS Gonzalez [facility] eGFRon 11-18-2021 GFR/1.73 sq M.predicted among blacks MDRD (S/P/Bld) [Vol rate/Area] mL/min/{1.73_m2} Normal >=59 [facility] Comment on above: Order Comment: Order added by Discern Expert. Result Comment: eGFR is race adjusted. AA=. Performed By: #### 3 7942193, 1710013, 9936190, 0094118, 24262376, 2937419, 23141198, 4715081 #### [facility] [address] [place] [address] GFR/1.73 sq M.predicted among non-blacks MDRD (S/P/Bld) [Vol rate/Area] mL/min/{1.73_m2} Normal >=59 [facility] Comment on above: Order Comment: Order added by Discern Expert. Result Comment: Computer Lab Assistant chance kidney disease could be indicated at eGFR's of less than 60 mL/min/1.73m2. Kidney failure is indicated at less than 15 mL/min/1.73m2. Performed By: #### 3 5128553, 1831061, 4521935, 0233982, 92308742, 4853839, 80826172, 5918427 #### [facility] [address] [place] [address] Coding Summary.on 09-25-2021 Coding Summary. CD:[id number] Gh 0bWw+PGhlYWQ+DN4CQNPiX 04ipNJgkZ8FB1vKZD7NHWE MRJMHAG0VRH5qnCW8XSusE 2VybiAv EhywcBRwHA25COo2CZY0rV jdXTexvI6izHByI9z8ItDr LQ79hD44UXgxQLHtItO3Uf ZpbjsgbWFy X2qcBgIrmPTjMmg+PHRhYm xlIHdpZHRoPScxMDAlJyBz pAfdIA0gFt2tAHWnRNYauI xhcHNlOiBj g8gcWPPlIQsdMK5bjCyoF6 HctBU7SRIdg9q8Ax16zTZ+ VNXvMQO8pMelZZhww553Ia Jmr1lyWSN0 iSMqVAsuTCC3Z67nw8M4GU PdMCBrBVA7lRP7aM8heTxz asphW3UcxMYzWpO6FYZ4cX UybC7kmEer whmlyR5lEfk+W11EMS2JAO GPSA6HIsx6K9NeEimeuZV+ VN45ZLWnKF88wVXwoLAxz6 wepGb8KgBx NJFoZGL3vDkeVYuxs3RyLL RlW00rlDPri6Q0LSVrzXqi kRRuThItrTE5zZ9mNEqjgs uon7eojyqv Bmesp0qsdr65jP70F94zXQ wlOZEwDVB5QKJdYPDpoNfw ar4hsK0uFp7+ZMupo9mkn6 nieVo4KcEa WKTkbyBodTsiPIE9y6YdRi 63U5XgfVuih0HsVqq4oo90 pFWlr7B4qYH7WSuuUQRhpY 8dHMycMeO5 RMOuSiJolN60aHTdANibVa 2wyEiiiGygJA7bROVbhhjj FYUxwH2xNSOraMUuiZvcXR 4wNTBpbjtm i857AlQeDTP7PFJpzIRaC7 ZicN5nExGoANOaQIJkC7Ot wMJaIOnfQ945YLnjBtT8BR IequMqK9Tx BCCloIqaVeG3z0D4Fy6Hp9 JsiqipSLH2JIjgWASrWdXc BiFdLhC8E8MkSbl7HTJfwV fmTY9wM4Yt WSVexkcqybvcvTB9FBBdOF GzkE48cQJcKFeoUg4ga2D7 j384SSJnSHMlcK45Vw3skI ogMTBwdCBU mL6vzhwpg3apgcfzXzSmET KiFEs2BWl3VNKwxMenScSw MYR0YdG5LMK8nXMnfP7xfA qymfldgX1p Oyc+L74jsT1sENO5YWP7tc jlBBIpslUlQC49KN24S5Ka PjwvdGFibGU+PGRpdiBzdH afDR5kCsHm g0woh0GwZNkwR7BvOETpLL cgGdx8OWHePFG5jBN7qC5h NZNlARtec5A4rIV5J1Aetk Orlp4se0pk YGChGSlpJ85ywEGnz6P7UZ LcaSB7SUZlqGieIeSvoT51 Oyc+ITXcpWwja2WiCnpch7 jta4yutXz9 PtBeRBHdbzAwtIlpRDI7z7 PiFj12S61sERwoFVNsHAPh LVVeXSDhwSxbdx6baI2mCt 8+PGNvbCB3 uSU6cJ3mZIDgYlN2DXpuU7 05PsTrbPRvMjehb3rsz8yg aTp4QrUvXGFvemIkkNdnCH J1k0OnIt48 D01dPDmnZLNjKKDmBUOzKH SqrFgtmw3dhI6kRl7+PC9j x3nkkm65lY53pJD+PHRkIH C7dUxpVYeq FSGcsH1tZYjmOkA2QVTbCw VxvE91hJTuKQxbFw8ulOgu hBkdKH0dGJHpbrwpf143Nm Xhx3liITCy mAYyREieWAR9B78gn5O3SW QpPJMwRKY2fFK2gL4mgBif bjogbGVmdDsgdmVydGljYW znMSeaU641 IHRvcDsnPlBhdGllbnQgTm CvUPx3C2SjVut5KSNdtPsu VL9miOYuHHnjKc1kbWaxhA cqQN5mWUMx bxqfo474TbBjs2uxEVFbkE UiXIjwWYN2H47bz7T0TBSz BDQcITI5nPA8lM4vkLzwow ogbGVmdDsg nnUtmAhxCHycMUmgK016JD RvcDsnPkJpcnRoIERhdGU6 WP99BL19rNDus0Z5cBJ4G9 BhZGRpbmct ipvfrLW5EXOyHDZrfR63Je 7raGuaPn2pEBHcOHU3LEHh rHOuF1BndW3pIjXkQMJgRH MgL5JmoGLu LDzpP658FMnsRcI1BKHsak NuS8NtJRBvoBtdYhJ9g9G9 Tv1KI0V6HJ16CC63iAMnw6 B0bWZ5R8Ma TAAwevuhtedlqDH9PJBfZD OupI06Dr3jbFdjOi8kRDJo HGH6DKProNZuD3IlqH9dTx AjMDAwMDAw D4CwxPKqBGgnW989RYyvZh Y0NYJxdaOfS0IlSWCltAfh ZaJ8b5P0Xc8HMPe3BQ36TF 29vFEkr0G4 tVS3O9YyNMYtqmupjroglB D4DNCsNQRecA99Tz7wbJic Tz4vNVHoOHE2WIGcpDInJ8 TxcV3gBlDt MNBaOSIeE9VrtLDyPOpkH0 61HUaxIkR5JTXjqsXoF6Ot FNErlGwsCzK0k1N7Ow4QET CdVY66OAN1 sYA9FB11UQ12M9IsMzexyK FibGU+PHRhYmxlIHdpZHRo YEvoHHSpJqZdeTalZD5fSt 9yZGVyLWNv gTkrcAMzHeEde4iuTSYxPJ zvXS5akPqrE9RnxCW0LLGs h0o3Ir97A32qR5XniYK+PG IqwGB4qLT7 yM0tYyBgYrL1STfuW197On RvaLJsYydzh2bhg5ssgRy4 LaS1TRTnoeJtqQhjQWW3l7 XyXh17S53i IHdpZHRoPSIxNSUiIHZhbG cmqf1qcH3iKc7+PGNvbCB3 qZY3pI0yMnZmUyW5YDmrY7 49InRvcCIv Guvwu8mae4flnOx1YpQdLE RwhrAjpMhqTRR1y3NdEd68 O4AsxSjic6LgFvn9hy51sV Kpi8K3zEB4 Y4ZmTGNanwpajWJsrLyuDP 6yLGRdofxuGDLeqU5qKYMy C7h4NtAcMpS7YNzpO5Hqcw M0TYVrpBCc UXsfDXX1V21rj7R4BULfZQ ZuBOH7uGJ2aO8haKeabodc bGVmdDsgdmVydGljYWwtYW czO154YTUe bJbzCHLttN7bSHOfnNQwrY cfGT9xEUXkutsjNvyUFYjl IEpBREEgTTwvdGQ+PHRkIH P8zXbqDDqj KORxwG6kIROuJ0a8EsMwEx Q1LDfcW6NjIARbwbruLn34 hD3sKaYmVjH5DTgwI5Amfv K6ZZKpuCKh RSbuNUI4Y11tg9U1ZLXtVE PaRBY5mLD0mB7bcMgrzlqu bGVmdDsgdmVydGljYWwtYW dyN486EIJr cOxiGnB8PbM8YgH5SPV4K9 RmMdf1TCHidLgpLI5zjAXh VEilFj2tkTxqcVyfEI2iSK BpbjtwYWRk zJ2wFJVxqWEjaBjnVT4tCD Byonsvo781PhRpTKB6XYBj lRTvU1ZscX5jYnRtTBBtOX FkT6ZyyWXh TNqrH576FJrnBmX3MXMrtg TyH0AbRJUjhUuwYcA9c8I8 Dl5cFQVSWEKbxqljwDH+PH MkAKW1aFmg CZqyHDPijK8gLFVpU6u1Ie BpVoG9OUxvF2XiGBUhkqvi Qs83rR0fKgVkVcT0UXzhG2 VmutD7LEPk gQGeMVzoGZV2S13so8E0PT VrFVMbBYJ6mON2mA3lbLrw bjogbGVmdDsgdmVydGljYW xdSLpqZ006 IHRvcDsnPkZlbWFsZTwvdG Q+CLOjYOF5rKmiMIneZWDf zU7zTMEhP7h5HhZgGkP0AT deI6DzRZWs htuxDl49lU2zNqGhXkR2MS syH5CxjzC9GCLemRZcKGdb HYH8X22px0Q2FIPyCYRwLQ O9rVA9nR9k bGlnbjogbGVmdDsgdmVydG kqUYuoXTzkN987WUPreMcv LnXcEAHcSD5daXryaPO+PC 84vn79A3Nt PsqmOni5CTRfMEI7zZR9hI 3pVRQuUYoca6L7hDZ8Z3Hh mnBrmo2tc9srZBNpVXawH6 0bmHHxz3I4 PXIviFH7WXBwuYerZrBzjC 93Oyc+SHUfsNtux3JdZcui u3saa4knhKw4IpLqMTHisf FsaWduPSJ0 j5VxTa01M97jAPgpUAYzBJ QmBPWtACIshYsbjx1hkU9m Ii8+IDYkfKL3vQR5vV0wUv UgPdA6BNkl J829RiSbeUAyKyozs7ook9 wjiYd6HjYkEGZozzXfqZsb SDR9w7NhEn98Z6CegFuzm4 ExNtz2bb06 zOXdp8I7wDG0S6NpYXJrmk ayxAUyuGilPE7bXOBtngtp ZUPrjP3hCQVpX2t4ZaBgZi P9AKpwR9Bf qkF6PMBdrVPjJVHjkAMBtB 5xibkrg5oyuqigNpCkTWQu TXu0LQg5TADjjAyfSsPlWW A4QqR2FHM2 lOVkyS0irSzkiynqjH9aKm c+TZz6p7inxJIgSE2kcTM8 QU77UR50uIZyf3T2mNC7V5 BhZGRpbmct sbonvPZ3QPHfYFYxrL01Ew 6apXbiPi4zPXWtLVH9AWAc gOUjS2ZkhC1rJqOtGOYuDY IdW8LvdZUu VLmeB671VKbnQgL0FVHdwr TzH6KqSKMrsNxpOkI1n7C8 Bl4DLY52BR01DG78aRWbm2 H7cAS3Z7Jq IQHphoedkinpiIH5HCKiOW ChgF75Fz9jhVsqMs1pEHWu ZPN3AEFvgRElK2VbmA8eGr AjMDAwMDAw H1TsvRUwGUupB189UOcsAa B0DPAiisCkQ4TuZWPlmGdz EyB9i0H3Wx2KYb62OM50IN 70oXFzd9J0 qEB9C4DnOWJmjehmdhcddJ B3MSVyMKXrkA66Py1smGfk Kb6xWYQkIEA5BGQniZJrR6 KtlP0hQcPa LSFnHNHcI9QtfLTdQHgiK0 72CHhhYpP5XSGxvnPtT8Ux GIUxbLygSaS7y1Z6Xk1FXY slaba4E2Ll PjwvdHI+ZO69BFZiPM85rZ CtqROxm3kvuLm5YbMbFDQj JJZ8gFwpLLebh3IhCQQzR3 5vmIMjr4Z4 IGNv (more content not included)... Normal [facility] [place] [place] SARS-CoV-2 (COVID-19) RNA PARI+probe Ql (Resp) Not detected Normal Not Detected [facility] Comment on above: Result Comment: This test result should be correlated with clinical presentations and medical history by a healthcare provider to determine its clinical significance. This assay was performed by a reverse transcriptase real-time polymerase chain reaction (rt PCR) method on the [employer] system. This test has been authorized only [...] or revoked sooner. Performed By: #### 2 [id number] ####[place] [address] SARS-CoV-2 (COVID-19) RNA PARI+probe Ql (Unsp spec) Pass Normal Pass [facility] Comment on above: Performed By: #### 2 [id number] ####[place] [address] Specimen source Nom (Unsp spec) Nasal Normal [facility] Comment on above: Performed By: #### 2 [id number] ####[place] [address] ADMITTED TO INTENSIVE CARE UNIT FOR CONDITION OF INTEREST:FIND:PT: Unknown Normal [facility] Comment on above: Performed By: #### 2 [id number] ####[place] [address] EMPLOYED IN A HEALTHCARE SETTING:FIND:PT: Unknown Normal [facility] Comment on above: Performed By: #### 2 [id number] ####[place] [address] FIRST TEST FOR CONDITION OF INTEREST:FIND:PT: Unknown Normal [facility] Comment on above: Performed By: #### 2 [id number] ####[place] [address] HAS SYMPTOMS RELATED TO CONDITION OF INTEREST:FIND:PT: Unknown Normal [facility] Comment on above: Performed By: #### 2 [id number] ####[place] [address] HOSPITALIZED FOR CONDITION OF INTEREST:FIND:PT: Unknown Normal [facility] Comment on above: Performed By: #### 2 [id number] ####[place] [address] STATUS:FIND:PT: Unknown Normal [facility] Comment on above: Performed By: #### 2 [id number] ####[place] [address] RESIDES IN A [facility] CARE SETTING:FIND:PT: Unknown Normal [facility] Comment on above: Performed By: #### 2 [id number] ####[place] [address] Consent for Treatmenton 09-14 Consent for Treatment [id number] 2009 [id number] 0CD:127 Normal [facility] Discharge Instructionson Discharge Instructions [id number] CD:127 Normal [facility] ED Clinical Summaryon 2021 ED Clinical Summary [place] [id number] ED Clinical Summary Person Information Name: LEENA INTERIANO [place] Age: 31 Years : 1990 Sex: Female Language: Sign Language PCP: BENTLEY LUCERO CNP Marital Status: Phone: [phone] Visit Id: Visit Reason: Sinus Pain/Congestion; RUNNY [...] 09/24/2021 11:26:44 09/24/2021 11:26:44 09/24/2021 11:26:44 ADDRESS: [address] [place] [id number] PHYS DOC NOTES: MEDICAL INFORMATION: Prescriptions Given: New Medications [facility] 1985, [address] [place], [place] [id number], [phone] brompheniramine/dextro methorphan/PSE (Bromfed DM oral syrup) 10 [...] With: Address: When: BENTLEY NIC [address] [place] [address] Business (1) In 3 days 09/27/2021 DIAGNOSIS: Acute upper respiratory infection Normal [facility] ED Note-Physicianon 09-24-19 22 ED Note-Physician Basic Information Time Seen: Garnt Jacob PA-C 09/24/2021 10:59 Chief Complaint pt [...] for 7 day(s), 280 mL, Refill(s) 0, [facility], 164, cm, 09/24/21 11:04:00 EST, Height/Length Dosing, 89, kg, 09/24/21 11:04:00 EST, Weight Dosing dexamethasone, 10 mg = 2.5 mL, Injection, Oral, Once, Stop date 09/24/21 11:06:00 EST, STAT, Start date 09/24/21 11:06:00 EST, 09/24/21 11:06:00 EST COVID-19 [place] Disposition Plan Patient Discharge Condition Disposition: Discharged home Condition: Improved and stable Counseled: Patient and/or family were counseled to workup, results, treatment plan and follow-up recommendations Discharge Prescription List Prescriptions Bromfed DM oral syrup, 10 mL, Oral, QID, PRN Follow-up With When Contact Information BENTLEY NIC In 3 days 09/27/2021 EST [address] [place] [address]- Business (1) Additional Instructions: Patient Education COVID-19 Upper Respiratory Infection, Adult Attestation Patient seen and evaluated by the physician family and divorce legal assistant. Attending physician was present in the emergency department and supervised care. This visit was performed by both the physician and an APC. I performed all aspects of the MDM as documented. This report was transcribed using voice recognition software. Every effort was made to ensure accuracy, however, inadvertently computerized senior policy analyst mistakes may be present. Appropriate healthcare PPE [...] available. Diagnostic Results No qualifying data available. [facility] Comment on above: Result Comment: Elec tronically Signed By: Grant Jacob PA-C\.br\Date and Time Signed: 09/24/21 11:08 EST\.br\Electronically Co-Signed By: Devendra Miller M.D.\.br\Date and Time Co-Signed: 09/24/21 15:49 EST ED Patient Summaryon 022 ED Patient Summary [address] [address] Patient Discharge Instructions Person Information Name: LEENA INTERIANO Age: 31 Years Arrival Date: 09/24/2021 10:56:03 Discharge Diagnosis: Acute upper respiratory infection Primary Care Physician: BENTLEY LUCERO CNP Provider Information Primary Provider: Devendra Miller M.D. Advanced Lace Winder:Grant Jacob PA-C The exam and treatment you received in the Emergency Department were for an urgent problem and are not intended as complete care. It is important that you follow up with a doctor, nurse practitioner, or physician?s family and divorce legal assistant for ongoing care. If your symptoms [...] Instructions: With: Address: When: BENTLEY LUCERO [address] [place] [address] [facility] () In 3 days 09/27/2021 In the event that this physician does not participate in your insurance network, please consult with your insurance company to find a nearby participating provider. Patient Education Materials: COVID-19; Upper Respiratory Infection, Adult A MESSAGE TO ALL PATIENTS REGARDING OPIOIDS PRESCRIPTION OPIOIDS: WHAT YOU NEED TO KNOW Prescription opioids can be used to help relieve vnwqsgfc-le-qomlrc pain and are often prescribed following a [...] be struggling with addiction, tell your health personal care attendant and ask for guidance or call [facility] National Helpline at 0-241-609 (more content not included)... Normal [facility] Prescriptions/Work Noteson 0 09-24-2021 Prescriptions/Work Notes [id number]#[id number] CD:127 Normal [facility] Chlamydia/GC DNA, Uron 03-16 Chlamydia Probe, Ur Negative Normal NEG [facility] Comment on above: Result Comment: CHLA MYDIA TRACHOMATIS DNA not detected by nucleic acid amplification. Performed By: #### U CGP ####[facility] [address] [place] [address] [id number] Gonorrhea Probe, Ur Negative Normal NEG [facility] Comment on above: Result Comment: NEIS SERIA GONORRHOEAE DNA not detected by nucleic acid amplification. Performed By: #### U CGP ####[facility] [address] [place] [id number] Vaginitis DNA Probeon 2017 Protein Specimen Description .VAGINASpecial Requests NOT REPORTEDDirect Exam NEGATIVE for Gardnerella vaginalis NEGATIVE for Dora sp. NEGATIVE for Trichomonas vaginalis Method of testing is a DNA probe intended for detection and identification of Dora species, Gardnerella vaginalis, and Trichomonas vaginalis nucleic acid in vaginal fluid specimens from patients with symptoms of vaginitis/vaginosis. Report Status FINAL 03/16/2018 [facility] Comment on above: Performed By: #### V AGDNA ####[facility] [address] [place] [address] [id number] Progress Noteon 03-15-2018 HIM IP Note OR Medical Lab Specialist Normal [facility] Progress Noteon 12-06-2017 HIM IP Note OR Medical Lab Specialist [facility] Chlamydia/GC DNA, Uron 11-26 Chlamydia Probe, Ur Negative Normal NEG [facility] Comment on above: Result Comment: CHLA MYDIA TRACHOMATIS DNA not detected by nucleic acid amplification. Performed By: #### U CGP ####[id number] [place] [address] Gonorrhea Probe, Ur Negative Normal NEG [facility] Comment on above: Result Comment: NEIS SERIA GONORRHOEAE DNA not detected by nucleic acid amplification.[address] [address] Performed By: #### U CGP ####[id number] [place] [address] Vaginitis DNA Probeon 2017 Protein Specimen Description .VAGINAL SWABSpecial Requests NOT REPORTEDDirect Exam NEGATIVE for Dora sp. NEGATIVE for Gardnerella vaginalis NEGATIVE for Trichomonas vaginalis Method of testing is a DNA probe intended for detection and identification of Dora species, Gardnerella vaginalis, and Trichomonas vaginalis nucleic acid in vaginal fluid specimens from patients with symptoms of vaginitis/vaginosis. Report Status FINAL 11/25/2017 Normal [facility] Comment on above: Performed By: #### V AGDNA ####[address] [address] Progress Noteon 10-20-2017 HIM IP Note OR Medical Lab Specialist Normal [facility] Vital Signs Date Time Vital Sign Value Performing Clinician Faci lity 08-29-2022 17:32-0500 Body temperature 98.78 [degF] Kristopher Clemons [facility] 08-29-2022 17:32-0500 Diastolic blood pressure 96 mm[Hg] Kristopher Sextone [facility] 08-29-2022 17:32-0500 Heart rate 74 /min Kristopher Kaci [facility] 08-29-2022 17:32-0500 Respiratory rate 18 /min Kristopher Clemons [facility] 08-29-2022 17:32-0500 SaO2% (BldA) [Mass fraction] 99 % Kristopher Clemons [facility] 08-29-2022 17:32-0500 Systolic blood pressure 143 mm[Hg] Kristopher Clemons [facility] 06-18-2022 12:13-0400 Body temperature 98.42 [degF] Connor Emanuel [facility] 06-18-2022 12:13-0400 Diastolic blood pressure 88 mm[Hg] Connor Emanuel [facility] 06-18-2022 12:13-0400 Heart rate 78 /min Connor Emanuel [facility] 06-18-2022 12:13-0400 Respiratory rate 20 /min Connor Emanuel [facility] 06-18-2022 12:13-0400 SaO2% (BldA) [Mass fraction] 98 % Connor Emanuel [facility] 06-18-2022 12:13-0400 Systolic blood pressure 133 mm[Hg] Connor Emanuel [facility] 05-28-2022 10:50-0400 Body temperature 98.6 [degF] Connor Emanuel [facility] 05-28-2022 10:50-0400 Diastolic blood pressure 97 mm[Hg] Connor Emanuel [facility] 05-28-2022 10:50-0400 Heart rate 67 /min Connor Emanuel [facility] 05-28-2022 10:50-0400 Respiratory rate 18 /min Connor Emanuel [facility] 05-28-2022 10:50-0400 SaO2% (BldA) [Mass fraction] 98 % Connor Castellanos [facility] 05-28-2022 10:50-0400 Systolic blood pressure 140 mm[Hg] Connor Emanuel [facility] 01-09-2022 13:53-0400 Body temperature 98.6 [degF] [facility] 01-09-2022 13:53-0400 Diastolic blood pressure 99 mm[Hg] [facility] 01-09-2022 13:53-0400 Heart rate 83 /min [facility] 01-09-2022 13:53-0400 Respiratory rate 16 /min [facility] 01-09-2022 13:53-0400 SaO2% (BldA) [Mass fraction] 98 % [facility] 01-09-2022 13:53-0400 Systolic blood pressure 116 mm[Hg] [facility] Encounters Encounter Date Encounter Type Care [...] Start: 04-22-2023 End: 04-22-2023 ambulatory Bentley Lucero Facility:[facility] Start: 04-22-2023 End: 04-22-2023 ambulatory Services [facility] Work Phone: [facility] Work Phone: Start: 04-22-2023 End: 04-22-2023 Patient encounter procedure Services [facility] Work Phone: [facility] Work Phone: Start: 04-16-2023 End: 04-16-2023 ambulatory Bentley E Spasic Facility:[facility] Start: 04-16-2023 End: 04-16-2023 ambulatory SHIPPING PACKER-C Bentley Spasic Work Phone: [facility] Work Phone: Start: 04-16-2023 End: 04-16-2023 Departed Referred SHIPPING PACKER-C Bentley Spasic Work Phone: [facility] Start: 01-27-2023 ambulatory NARENDRANATH LAKSHMIPATHY . Facility: Start: 01-20-2023 End: 01-21-2023 ambulatory NARENDRANATH LAKSHMIPATHY . Facility:[facility] Start: 01-01-2023 End: 01-01-2023 ambulatory EASTON JOESPH . Facility:[facility] Start: 10-30-2022 End: 10-30-2022 ambulatory Bentley E Spasic Facility:[facility] Start: 10-30-2022 End: 10-30-2022 ambulatory SHIPPING PACKER-C Bentley E Spasic Work Phone: [facility] Work Phone: Start: 10-30-2022 End: 10-30-2022 Patient encounter procedure SHIPPING PACKER-C Bentley Spasic Work Phone: [facility] Work Phone: Start: 10-09-2022 End: 10-09-2022 ambulatory Bentley E Spasic Facility:[facility] Start: 10-09-2022 End: 10-09-2022 ambulatory SHIPPING PACKER-C Bentley E Spasic Work Phone: [facility] Work Phone: Start: 10-09-2022 End: 10-09-2022 Patient encounter procedure SHIPPING PACKER-C Bentley Lucero Work Phone: [facility] Start: 10-08-2022 End: 10-08-2022 ambulatory VANESSA JEREZ Facility: Start: 08-29-2022 End: 08-29-2022 Emergency department patient visit Kristopher Clemons [place] Start: 08-29-2022 End: 08-29-2022 Emergency department patient visit Kristopher Clemons [facility] Start: 08-20-2022 End: 08-20-[address] KARMA HAY Facility: Start: 06-18-2022 End: 06-18-2022 Emergency department patient visit Connor Castellanos Facility:[facility] Start: 06-18-2022 End: 06-18-2022 Emergency department patient visit Connor Castellanos [facility] Start: 05-28-2022 End: 05-28-2022 Emergency department patient visit Connor Castellanos Facility[place] Start: 05-28-2022 End: 05-28-2022 Emergency department patient visit Connor Castellanos [facility] Start: 03-21-2022 End: 05-15-2022 ambulatory BENTLEY LUCERO Facility[place] Start: 03-12-2022 End: 03-12-2022 ambulatory Rangel Stanton Other [facility] Other Start: 03-12-2022 Telephone encounter Rangel PHILLIPS [facility] Start: 02-18-2022 End: 02-26-2022 Pre-admission assessment BENTLEY LUCERO [facility] Start: 02-16-2022 End: 02-16-2022 Emergency department patient visit Connor Castellanos Facility[place] Start: 01-09-2022 End: 01-09-2022 Emergency department patient visit Devendra Miller Facility:[facility] Start: 01-09-2022 End: 01-09-2022 Emergency department patient visit Devendra Miller [facility] Start: 11-18-2021 End: 11-18-2021 Emergency department patient visit Kristopher Clemons Facility:[facility] Start: 09-24-2021 End: 09-24-2021 Emergency department patient visit Devendra Miller Facility[facility] Start: 03-16-2018 End: 03-16-2018 Ambulatory DION Guadarrama OPHELIA [facility] Start: 11-25-2017 End: 11-26-2017 Ambulatory DION Chiara OPHELIA [facility] Procedures Date Procedure Procedure Detail Performing Clinician Start: 04-22-2023 X-ray of cervical spine Services [facility] Work Phone: Start: 10-30-2022 CT of lumbar spine w ithout contrast SHIPPING PACKER-Rosy Lucero Work Phone: Start: 10-30-2022 Bilateral mammography N P-C Bentley Lucero Work Phone: Start: 10-30-2022 Ultrasonography of l eft breast SHIPPING PACKER-Rosy Lucero Work Phone: Start: 03-15-2018 C.TRACHOMATIS N.GONO RRHOEAE DNA, URINE DION OPHELIA Start: 03-15-2018 VAGINITIS DNA PROBE MAR Y OPHELIA Start: 11-25-2017 C.TRACHOMATIS N.GONO RRHOEAE DNA, URINE DION OPHELIA Start: 11-25-2017 VAGINITIS DNA PROBE MAR Y OPHELIA Plan of Treatment Date Care Activity Detail Author Start: 04-16-2023 [facility] Immunizations Immunization Date Immunization Notes Care Provider Oswaldo conner 06-06-2021 COVID-19 mRNA, Comirnaty (Pfizer) SHIPPING PACKER-C Bentley Nic Work Phone: [facility] 05-16-2021 COVID-19 Porsha Renee (Pfizer) SHIPPING PACKER-C Bentley Azaleasirosy Work Phone: [facility] Payers Date Payer Category Payer Self-pay [id number] 2022 Medicaid 2022 Medicare 2015 Medicare [id number] 1991 Unknown [id number] 2.16.8 40.1.241539.3.579.2.727 1991 Unknown [id number] 2.16.8 40.1.941541.3.579.2.727 1991 Unknown [id number] 2.16.8 40.1.738027.3.579.2.727 1991 Unknown [id number] 2.16.8 40.1.017185.3.579.2.727 1991 Unknown [id number] 2.16.8 40.1.418640.3.579.2.727 1991 Unknown [id number] 2.16.8 40.1.261508.3.579.2.727 1991 Unknown [id number] 2.16.8 40.1.781317.3.579.2.727 1991 Unknown [id number] 2.16.8 40.1.979415.3.579.2.727 1991 Unknown [id number] 2.16.84 0.1.550070.3.579.2.593 1991 Unknown [id number] 2.16.84 0.1.236008.3.579.2.593 1991 Unknown [id number] 2.16.84 0.1.413313.3.579.2.593 1991 Unknown [id number] 2.16.84 0.1.005710.3.579.2.593 1991 Unknown [id number] 2.16.84 0.1.261643.3.579.2.593 1991 Unknown [id number] 2.16. 840.1.326650.3.579.2.356 1991 Unknown [id number] 2.16. 840.1.614333.3.579.2.196 1991 Unknown [id number] 2.16. 840.1.518328.3.579.2.196 1991 Unknown [id number] 2.16. 840.1.671375.3.579.2.196 1991 Unknown [id number] 2.16. 840.1.571387.3.579.2.196 1991 Unknown [id number] 2.16.84 0.1.083582.3.579.2.1259 1958 Medicaid [id number] 2. 16.840.1.833357.19 1958 Medicare [id number] 2.1 6.840.1.114702.19 Unknown [id number] 2.16.8 40.1.723572.3.579.2.531 Unknown [id number] 2.16.8 40.1.357888.3.579.2.531 Unknown [id number] 2.16.8 40.1.050572.3.579.2.531 Unknown [id number] 2.16.8 40.1.816660.3.579.2.531 Social History Date Type Detail Facility Tobacco [facility] Comment on above: Denies. Sex Assigned At Female [facility] Start: 06-18-2022 Tobacco smoking status Light t obacco smoker (finding) [facility] Comment on above: pt tab Start: 03-12-2022 End: 03-12-2022 Tobacco smoking status NHIS Never smoked tobacco (finding) [facility] Start: 1990 Sex Assigned At Female [facility] Functional Status Date Assessment Result Facility 08-29-2022 Functional Status N/A [facility] 06-18-2022 Functional Status N/A [facility] 05-28-2022 Functional Status N/A [facility] Clinical Notes 09-24-2021 to 01-20-2023 Note Date & Type Note Facility 01-20-2023 Note CONSULTATION CONSULTATION DATE: 01/20/2023 TO: SUSIE Navarrete CHIEF COMPLAINT: Severe left lower back pain. HISTORY: Patient is deaf and we conducted our interview and examination process in the presence of one of our staff members, as well as the machine design engineer was present online. Patient reports having a [...] our patients to inform us about any rcri-esu-rxatjia medications or herbal remedies/nutritional supplements/alternative remedies. 2. [...] options with their primary care provider. [facility] 08-29-2022 Hospital Discharg e instructions Patient [...] Follow these instructions at home: Medicines Take tsmn-klf-xijudvn and prescription medicines only as told by [...] and water are not available, use hand video systems engineer. Avoid contact with people who have cold [...] 10/08/2005 Document Revised: 07/14/2019 Document Reviewed: 02/18/2017 [employer]ender Patient Education 2019 [employer]. Follow Up Care 08/29/2022 17:24:30 With:BENTLEY LUCERO Address: [address] [place] [address]- Business (1) When:09/01/2022 18:22:15 Comments:Follow-up with your primary care provider in 3 to 5 days. If symptoms worsen, do not improve, or new symptoms arise please report back to emergency department for further evaluation. [facility] 06-18-2022 Hospital Discharg e instructions Patient Education [...] medicines to help relieve symptoms, such as: Drvq-lhm-xuxmalf cold medicines. Cough suppressants. Coughing is a [...] and other clear broths. General instructions Take wfkr-xzg-yibaxib and prescription medicines only as told by [...] and water are not available, use hand video systems engineer. ?Avoid touching your mouth, face, eyes, or [...] 02/24/2002 Document Revised: 09/08/2019 Document Reviewed: 04/16/2018 [employer] Patient Education 2020 [employer]. Follow Up Care 06/18/2022 11:58:34 With:BENTLEY LUCERO Address: [facility] [place] [address] Business (1) When:06/21/2022 13:13:35 [facility] 06-18-2022 Evaluation + Plan note Extrac flavio from: Title:ED Note Author:Grant Jacob PA-C te:06/18/22 Upper respiratory infection (J06.9: Acute upper respiratory infection, unspecified) Orders: loratadine-pseudoephedrine, 1 tab(s), Oral, q12hr for 10 day(s), 20 tab(s), Refill(s) 0, [facility], 165, cm, 06/18/22 12:19:00 EDT, Height/Length Dosing, 86, kg, 06/18/22 12:19:00 EDT, Weight Dosing Rapid COVID Antigen ([facility] [facility]09-14-2022 Evaluation + Plan noteExtracted from: Title:ED Note Author:Connor Castellanos DO Date: Chronic left-sided low back pain with left-sided sciatica (M54.42: Lumbago with sciatica, left side) Headache (R51.9: Headache, unspecified) Other chronic pain (G89.29: Other chronic pain) Orders: cyclobenzaprine, 10 mg = 1 tab(s), Oral, TID, PRN Muscle pain, # 15 tab(s), Refills(s) 0, Pharmacy: [facility], 165, cm, 05/28/22 10:56:00 EDT, Height/Length Dosing, 86, kg, 05/28/22 10:56:00 EDT, Weight Dosing ketorolac, 30 mg = 1 mL, Injection, IntraMuscular, Once, Stop date 05/28/22 11:29:00 EDT, STAT, Start date 05/28/22 11:29:00 EDT, 05/28/22 11:29:00 EDT methylPREDNISolone, = 1 packet(s), Oral, As Directed, as directed on package labeling, X 6 day(s), # 21 tab(s), Refills(s) 0, Pharmacy: [facility] 1985, 165, cm, 05/28/22 10:56:00 EDT, Height/Length Dosing, 86, kg, 05/28/22 10:56:00 EDT, Weight Dosing naproxen, 500 mg = 1 tab(s), Oral, BID, PRN for pain, # 20 tab(s), Refills(s) 0, Pharmacy: [facility], 165, cm, 05/28/22 10:56:00 EDT, Height/Length Dosing, 86, kg, 05/28/22 10:56:00 EDT, Weight Dosing orphenadrine, 60 mg = 2 mL, Injection, IntraMuscular, Once, Stop date 05/28/22 11:29:00 EDT, STAT, Start date 05/28/22 11:29:00 EDT, 05/28/22 11:29:00 EDT [facility]09-14-2022 Hospital Discharge instructions Patient Education 05/28/2022 11:31:52 [...] Follow these instructions at home: Medicines Take wslc-ejm-mjmibsd and prescription medicines only as told by your health care provider. Ask your health care provider if the medicine prescribed to you: ?Requires you to avoid driving or using heavy machinery. ?Can cause constipation. You may need to take these actions to prevent or treat constipation: ?Drink enough fluid to keep your urine pale yellow. ?Take ehrs-sgn-ymxeoml or prescription medicines. ?Eat foods that are [...] 08/25/2002 Document Revised: 09/19/2019 Document Reviewed: 09/19/2019 [employer]vue Patient Education 2020 [employer] 05/28/2022 11:31:52 Tension Headache, Adult Tension [...] these instructions at home: Managing pain Take ofei-zqc-holaimc and prescription medicines only as told by [...] 08/31/2006 Document Revised: 08/13/2018 Document Reviewed: 12/11/2017 [employer] Patient Education 2020 [employer]. Follow Up Care 05/28/2022 10:44:46 With:BENTLEY LUCERO Address: [address] [place] [address]- Business (1) When:05/31/2022 11:30:41 Comments:Call the office [...] breath, or any new or worsening symptoms. [facility]06-07-2022 NoteMicrobiology PROCEDURE: Strep Screen Culture [R1] SOURCE: Throat BODY SITE: COLLECTED DATE/TIME: 02/16/2022 12:08 EDT RECEIVED DATE/TIME: 02/16/2022 14:27 EDT START DATE/TIME: 02/16/2022 14:27 EDT FREE TEXT SOURCE: aCry Archuleta PA-C, PA-C, Kathryn E. FINAL REPORTS Final Report [] Verified Date/Time: 02/18/2022 11:48 EDT No Pathogenic Streptococcus Isolated Performing Locations R1: This test was performed at: [facility], [address] [place] [address], [address] , , ZqnqouChillicothe HospitalComment on above:Performed By: #### [id number] ####Velez [facility] [address] [place], [place] [id number] NoteInfectious Disease COVID-19 Frequently Asked Questions COVID-19 (coronavirus disease) is an infection that is caused by a large family of viruses. Some viruses cause illness in people and others cause illness in animals like camels, cats, and bats. In some cases, the viruses that cause illness in animals can spread to humans. Where did the coronavirus come from? In August 2019, [place] told the World Health Organization (WHO) of several cases of lung disease (human respiratory illness). These cases were linked to an open seafood and livestock market in the city of [facility]. The link to the seafood and livestock [...] and virus naming World Health Organization (WHO): www.who.int/emergencies/diseases/fhusu-evalmkjifat-3708/technical-g uidance/vdiyas-qmo-gsiiimlbydi-disease-(covid-2019)-xup-sjt-lydqu-rwex-wavnkp-ap Who is at risk for complications from [...] testing. Samples may in (more content not included)...[facility] Hospital Discharge instructions Patient Education 01/09/2022 [...] the coronavirus come from? In August 2019, [place] told the World Health Organization (WHO) of several cases of lung disease (human respiratory illness). These cases were linked to an open seafood and livestock market in the city of [facility]. The link to the seafood and livestock [...] and virus naming World Health Organization (WHO): www.who.int/emergencies/diseases/vjdel-pompisopkev-6457/technical-g uidance/rphlvp-amc-fmlkibtbwge-disease-(covid-2019)-awa-mtv-fhkxr-oflx-irigzf-wq Who is at risk for complications from [...] relieve his or her symptoms by using ckvj-xye-hcypzwb medicines that treat sneezing, coughing, and runny [...] water are not available, use alcohol-based hand video systems engineer. Avoid touching your face, mouth, nose, or [...] Prevention (CDC): www.cdc.gov/coronavirus/2019-ncov/travelers/index.html World Health Organization (WHO): www.who.int/emergencies/diseases/ehbtc-phxcpefwakz-5931/travel-advice Know the risks and take action to [...] water are not available, use alcohol-based hand video systems engineer. Cough or sneeze into a tissue, sleeve, [...] in hot, soapy water or use a shop helper. Air-dry your dishes. Wash laundry in hot water. Prevent infecting other household members Let healthy household members care for children and pets, if possible. If you have to care for children or pets, wash your hands often and wear a mask. Sleep in a different bedroom or bed, if possible. Do not share personal items, such as razors, toothbrushes, deodorant, edluna, brushes, towels, and washcloths. Where to find more information Centers for Disease Control and Prevention (CDC) Information and news updates: www.cdc.gov/coronavirus/2019-ncov World Health Organization (WHO) Information and news updates: www.who.int/emergencies/diseases/zafrr-nwghteusqnq-3131 Coronavirus health topic: www.who.int/health-topics/coronavirus Questions and answers on COVID-19: www.who.int/news-room/q-a-detail/k-l-ngbcxfnwcliig Global tracker: who.[employer] [place] [employer] (AAP) Information for families: www.healthychildren.org/Stateless/health-issues/conditions/chest-lungs/Pages /6192-Oxeth-Efzrbsuxvwz.aspx The coronavirus situation is changing rapidly. Check [...] 12/27/2019 Document Revised: 12/27/2019 Document Reviewed: 12/27/2019 [employer] Patient Education 2019 [employer]. 01/09/2022 15:57:51 COVID-19 COVID-19 COVID-19 is a [...] to fight infection (immunocompromised). Live in a mcfp or long-term care facility. Have a long-term [...] managed at home with rest, fluids, and vipj-faa-vnquvrg medicines. Treatment for a serious infection usually [...] are safe for you. General instructions Take iwbt-hmb-ecmwvta and prescription medicines only as told by [...] water are not available, usean alcohol-based hand video systems engineer. ?Avoid touching your mouth, face, eyes, or [...] water are not available, use alcohol-based hand video systems engineer. Stay away from other members of your [...] have a weak immunity, live in a mcfp, or have chronic disease. There is no [...] 10/06/2019 Document Revised: 01/26/2020 Document Reviewed: 10/06/2019 [employer] Patient Education 2020 [employer]. Follow Up Care 01/09/2022 13:51:01 With:BENTLYE LUCERO Address: [address] [place] [address] Business (1) When:01/12/2022 15:45:42 Comments:You should self quarantine for 5 days. Return to the emergency room if your symptoms get worse, youdevelop chest pain, shortness of breath or any new symptoms. [facility]04-28-2022 Evaluation + Plan noteExtracted from: Title:ED Note Author:Paul Moss, Devendra Ramirez te:01/09/22 1. COVID-19 virus infection (U07.1: COVID-19) Orders: ibuprofen, 600 mg = 1 tab(s), Tab, Oral, Once, Stop date 01/09/22 14:06:00 EDT, STAT, Start date 01/09/22 14:06:00 EDT, 01/09/22 14:06:00 EDT Group A Strep by PCR Influenza A&B Ag Rapid [place] Antigen [place] [place] Rapid Strep w/rfx [facility]01-11-2022 NoteInfectious Disease COVID-19 COVID-19 is a respiratory [...] fight infection (immunocompromised). ? Live in a mcfp or long-term care facility. ? Have a [...] managed at home with rest, fluids, and zwil-pbt-dktcrtk medicines. Treatment for a serious infection usually [...] ? Rest at h (more content not included)...[facility]No Information[facility] Other Evaluation noteNo assessment information available [facility] Work Phone: History general Narrative - Reported* Type Description Date Surgical History appendectomy [facility] FAGUO Other Hospital course Narrative No data available for this section [facility] No data available for this section [facility] No data available for this section [facility] Summary Purpose Family History No Family History [...] section and content) DATE CREATED AUTHOR 03/22/2018 [facility] DATE CREATED AUTHOR AUTHOR'S ORGANIZ ATION 09/07/2022 [facility] DATE CREATED AUTHOR AUTHOR'S ORGANIZ ATION 01/28/2023 [facility] DATE CREATED AUTHOR AUTHOR'S ORGANIZ ATION 05/27/2023 [facility] DATE CREATED AUTHOR AUTHOR'S ORGANIZ ATION 06/03/2023 [facility] DATE CREATED AUTHOR AUTHOR'S ORGANIZ ATION 10/07/2023 [facility] DATE CREATED AUTHOR AUTHOR'S ORGANIZ ATION 10/07/2023 [facility] EPIC Care Team (unrecognized sect ion and content) Team Status: Inactive Member Role Status Dates Bentley Tristansic , [employer] Primary Care Provider, Attending Provider Active Team Status: Active Member Role Status Dates Bentley Tristansic , [employer] P[employer]C Primary Care Provider Active Team Status: Inactive Member Role Status Dates Bentley Tristansic , [employer] Attending Provider Active Team Status: Active Member Role Status Dates Services [facility] Primary Care Provider Ac tive Team Status: Inactive Member Role Status Dates Bentley Lucero , SH[employer]PING P[employer]ER-C Attending Provider Active Services [facility] Care Provider Ac tive REASON FOR VISIT [...] BE BASED ON THE PRIMARY CLINICAL RECORDS. [employer] [facility]. provides no warranty or guarantee of the accuracy or completeness of information in this document.
--- NOTE | 2023-10-28 13:59 | PM.CN ---
Consult Note: HPI Data of Consult Patient: known to practice within the last 3 years Requesting Physician: Michelle Hunter NP Primary Care Provider: Non-Staff Physician, MD Consult Narrative Reason for consult: f/u Narrative: (Video language interpreter utilized for today's visit) Danitza Interiano a pleasant 33 year old female presents for evaluation and management of chronic low back pain. Today pain in low back 0/10 neck 3/10, does increase to 5-6/10 with activity. JOSEP 14% with pain with periods of standing and walking. Patient recently underwent bilateral L4-5 L5-S1 thermal RFA with >80% ongoing relief and functional improvement. Patient recently went to the ER for cervical neck pain and radiculopathy, Ct revealed: Minimal disc bulge and uncovertebral/facet arthropathy at C4-C5 contributing to mild bilateral neural foraminal stenosis at this level. Patent spinal canal throughout. Patient just finished prednisone and is noticing mild improvement. cc:: CC: Micehlle Hunter NP Review of Systems ROS Status of ROS 10 or more systems reviewed and unremarkable except as noted in history and below Ears, nose, mouth, and throat Reports: neck pain Musculoskeletal Reports: back pain PFSH PFSH Medical History Infertility Low back pain ?M54.50 - Low back pain, unspecified (ICD-10) Heartburn ?R12 - Heartburn (ICD-10) Asthma ?J45.909 - Unspecified asthma, uncomplicated (ICD-10) Surgical History Pain management ?R52 - Pain, unspecified (ICD-10) History of cochlear implant ?Z96.21 - Cochlear implant status (ICD-10) H/O removal of cyst ?Z98.890 - Other specified postprocedural states (ICD-10) History of appendectomy ?Z90.49 - Acquired absence of other specified parts of digestive tract (ICD-10) Social History Smoking status: Never smoker Meds Home Medications and Allergies Home Medications Medication Instructions Recorded Confirmed Type cholecalciferol (vitamin D3) 25 4,000 unit PO DAILY 05/13/23 10/19/23 History mcg (1,000 unit) capsule ferrous sulfate 325 mg (65 mg 36 mg PO DAILY 05/13/23 10/19/23 History iron) tablet omega-3 fatty acids 1,000 mg 1,000 mg PO DAILY 05/13/23 10/19/23 History capsule omega-3 fatty acids 500 mg capsule 1,500 mg PO DAILY 05/13/23 10/19/23 History omeprazole 40 mg capsule,delayed 40 mg PO DAILY 05/13/23 10/19/23 History release letrozole 2.5 mg tablet (Femara) 2.5 mg PO DAILY 10/19/23 10/19/23 History meclizine 25 mg tablet 25 mg PO TID PRN dizziness #30 tabs 10/21/23 Rx pantoprazole 40 mg tablet,delayed 40 mg PO DAILY 4 weeks #28 tabs 10/21/23 Rx release (Protonix) prednisone 20 mg tablet 40 mg (2 x 20 mg) PO DAILY 5 days 10/21/23 Rx #10 tabs ibuprofen 600 mg tablet 600 mg PO Q8H #9 tabs 10/25/23 Rx Allergies Allergy/AdvReac Type Severity Reaction Status Date / Time Sulfa (Sulfonamide Allergy Rash Verified 10/19/23 12:51 Antibiotics) Exam Constitutional Documenting provider has reviewed patient's vital signs: yes Common normals: no apparent distress, oriented x3, healthy appearing, alert and well nourished General appearance: cooperative HENDC Common normals: normocephalic, hearing grossly normal bilaterally and moist oral mucous membranes Head and scalp: normocephalic Eye Common normals: PERRL Pupil: PERRL Neck & C-Spine Common normals: full ROM General: normal visual inspection Cervical spine: pain with cervical ROM Other: positive facet loading C3-4 C4-5 negative spurlings radiculopathy to bilateral upper extremities decreased sensation on right following C4 pattern Chest Common normals: inspection of chest normal Respiratory Common normals: normal respiratory effort, no retractions and no use of accessory muscles Back & Pelvis Lumbar spine/lower back: straight leg raise negative bilaterally Sacroiliac joints: SI joints normal Other: negative bilateral facet loading Extremity Common normals: normal to inspection Neuro Common normals: oriented x3, CN's II-XII intact bilaterally, moves all extremities, no focal motor deficits, no sensory deficits noted, deep tendon reflexes 2+ bilaterally and gait normal Sensorium/orientation: alert Motor exam: strength 5/5 throughout and no movement abnormalities noted Psych Common normals: mental status grossly normal, thought process normal, cooperative, affect normal, speech normal and activity/motor behavior normal Speech: normal speech Thought process: normal thought process Results Additional Findings Additional findings: Cervical Spine CT: No acute fracture. The spine is in anatomic alignment. Minimal disc bulge and uncovertebral/facet arthropathy at C4-C5 contributing to mild bilateral neural foraminal stenosis at this level. Patent spinal canal throughout. The prevertebral soft tissues are unremarkable. Additional soft tissues of the neck and upper thorax are unremarkable. Assessment and Plan Assessment and Plan (1) Cervical radiculopathy: (2) Cervical disc disorder at C4-C5 level with radiculopathy: (3) Cervical pain: (4) Lumbar spondylosis: Assessment and Plan: >80% ongoing relief Bilateral L4-5 L5-S1 thermal RFA (5) Deaf: Qualifiers: Laterality: bilateral Qualified Code(s): H91.93 - Unspecified hearing loss, bilateral (6) Myofascial pain: Plan PT for neck pain, cervical radiculopathy, bulging disc continue gabapentin 300mg BID continue NSAIDs PRN f/u after PT
== END 2023-10-28 11:13 | disposition home or self-care (01) ==
PROVIDERS: Visit Provider Nurse Practitioner
DX: M54.12 Radiculopathy, cervical region (principal); M54.2 Cervicalgia; M47.816 Spondylosis without myelopathy or radiculopathy, lumbar region; H91.93 Unspecified hearing loss, bilateral; M50.321 Other cervical disc degeneration at C4-C5 level
CPT/HCPCS: G0463

== ENCOUNTER 2023-11-24 15:26 | Outpatient (RCR) | payer MEDICARE, MEDICAID, SELFPAY | END 2024-01-07 16:55 | disposition home or self-care (01) | LOC: PT 15:26 | PROVIDERS: Visit Provider Nurse Practitioner | DX: M54.12 Radiculopathy, cervical region (principal); M47.812 Spondylosis without myelopathy or radiculopathy, cervical region | CPT/HCPCS: 97012; 97110; 97140; 97161 ==

== ENCOUNTER 2024-01-07 12:25 | Emergency (ER) | payer MEDICARE, MEDICAID, SELFPAY ==
[2024-01-07 12:47] VITALS: BP 136/83; PULSE 70; TEMP 36.6; O2SAT 99; BMI 34.3
--- NOTE | 2024-01-07 13:43 | ED_ITS ---
HPI - Skin/Abscess/Foreign Bdy General Chief complaint: Skin/Abscess/Foreign Body Stated complaint: HEADACHE Time Seen by Provider: 01/07/24 13:19 Source: patient Mode of arrival: walk-in Limitations: language barrier Limitations comment: Deaf History of Present Illness HPI narrative: The patient is deaf so we used an cartography technician. Patient has two painful lumps along her posterior scalp line. She just dyed her hair prior to this starting. She took over the counter Goody s Headache remedy for the pain. She denied any systemic symptoms such as fever or vomitin g. Related Data Home Medications ?Medication ?Instructions ?Recorded ?Confirmed cholecalciferol (vitamin D3) 25 4,000 unit PO DAILY 05/13/23 01/07/24 mcg (1,000 unit) capsule omega-3 fatty acids 1,000 mg 1,000 mg PO DAILY 05/13/23 01/07/24 capsule omeprazole 40 mg capsule,delayed 40 mg PO DAILY 05/13/23 01/07/24 release gabapentin 300 mg capsule 300 mg PO Q12H 01/07/24 01/07/24 Previous Rx's ?Medication ?Instructions ?Recorded ibuprofen 600 mg tablet 600 mg PO Q8H #9 tabs 10/25/23 cephalexin 500 mg capsule 500 mg PO QID 7 days #28 caps 01/07/24 nabumetone 750 mg tablet 750 mg PO BID PRN pain #14 tabs 01/07/24 Allergies Allergy/AdvReac Type Severity Reaction Status Date / Time Sulfa (Sulfonamide Allergy Rash Verified 10/19/23 12:51 Antibiotics) PFSH PFSH Medical History Infertility Low back pain ?M54.50 - Low back pain, unspecified (ICD-10) Heartburn ?R12 - Heartburn (ICD-10) Asthma ?J45.909 - Unspecified asthma, uncomplicated (ICD-10) Surgical History Pain management ?R52 - Pain, unspecified (ICD-10) History of cochlear implant ?Z96.21 - Cochlear implant status (ICD-10) H/O removal of cyst ?Z98.890 - Other specified postprocedural states (ICD-10) History of appendectomy ?Z90.49 - Acquired absence of other specified parts of digestive tract (ICD- 10) Social History Smoking status: Never smoker Exam Narrative Exam Narrative: Nurses notes and vital signs reviewed and patient is not hypoxic. afebrile General: Well-appearing and in no apparent distress. Skin: Warm, dry, no pallor noted. No rash. Head: The two areas of concern are areas of folliculitis with small raised area of erythema, each measuring less than 3mm across and without any drainage, fluctuance or spread of erythema Remainder of the scalp and head are normocephalic, atraumatic. Neck: Supple, non-tender. No anterior or posterior cervical lymphadenopathy. Eye: Pupils are equal, round and EOMI. No scleral icterus. Cardiovascular: Regular Rate and Rhythm without murmur, gallop or rub. Respiratory: No accessory muscle use or respiratory distress. Lungs are clear to auscultation, no wheezing, rales or rhonchi Neurological: A&O x4. No cranial nerve dysfunction observed. No truncal ataxia. Moves all extremities. Sensation intact. Psychiatric: Cooperative and interactive. Normal mood and affect. Constitutional Vital Signs, click to edit/add: Last Vital Signs Temp 97.9 F 01/07/24 12:47 Pulse 70 01/07/24 12:47 Resp 16 01/07/24 12:47 BP 136/83 01/07/24 12:47 Pulse Ox 99 01/07/24 12:47 O2 Del Method Room Air 01/07/24 12:47 Course Vital Signs Vital signs: Vital Signs Temperature 97.9 F 01/07/24 12:47 Pulse Rate 70 01/07/24 12:47 Respiratory Rate 16 01/07/24 12:47 Blood Pressure 136/83 01/07/24 12:47 Pulse Oximetry 99 01/07/24 12:47 Oxygen Delivery Method Room Air 01/07/24 12:47 Temperature 97.9 F 01/07/24 12:47 Pulse Rate 70 01/07/24 12:47 Respiratory Rate 16 01/07/24 12:47 Blood Pressure 136/83 01/07/24 12:47 Pulse Oximetry 99 01/07/24 12:47 Oxygen Delivery Method Room Air 01/07/24 12:47 MDM - Skin/Abscess/Foreign Bdy MDM Narrative Medical decision making narrative: Using the service desk director, I was able to converse with the patient and her significant other. The patient was found to have 2 small areas of folliculitis of the scalp. I let her know that these were not worrisome and would improve with some anti-inflammatory pain medicine and short course of antibiotics. She expressed understanding of the diagnosis and plan for treatment. She was discharged with prescription for Keflex and Relafen. It was instructed to her that she should obtain the primary care physician follow-up or return to the emergency department if she worsens Discharge Plan Discharge Stand Alone Forms: Portal Instructions Chief Complaint: Skin/Abscess/Foreign Body Clinical Impression: Folliculitis Patient Disposition: Home, Self-Care Time of Disposition Decision: 13:48 Prescriptions / Home Meds: New nabumetone 750 mg tablet 750 mg PO BID PRN (Reason: pain) Qty: 14 0RF cephalexin 500 mg capsule 500 mg PO QID 7 Days Qty: 28 0RF No Action ibuprofen 600 mg tablet 600 mg PO Q8H Qty: 9 0RF omega-3 fatty acids 1,000 mg capsule 1,000 mg PO DAILY omeprazole 40 mg capsule,delayed release(DR/EC) 40 mg PO DAILY Hold Instructions: patient ran out of it cholecalciferol (vitamin D3) 25 mcg (1,000 unit) capsule 4,000 unit PO DAILY gabapentin 300 mg capsule 300 mg PO Q12H Print Language: Sign Languages (macro) Instructions: Folliculitis (ED) Referrals: Physician,Non-Staff, MD [Primary Care Provider] - 1 week
== END 2024-01-07 14:05 | disposition home or self-care (01) ==
PROVIDERS: Emergency Provider Emergency Medicine
DX: L73.9 Follicular disorder, unspecified (principal); H91.93 Unspecified hearing loss, bilateral; Z79.899 Other long term (current) drug therapy; Z96.21 Cochlear implant status; Z90.49 Acquired absence of other specified parts of digestive tract
CPT/HCPCS: 99284